=== PATIENT | male | born 1945 ===

== ENCOUNTER 2016-03-09 20:03 | Inpatient (IN) | payer MEDICAID, OTHER ==
--- NOTE | 2016-03-09 21:26 | C.PDOC ---
History Of Present Illness The patient, a 71 y/o male, presents to the ED requesting a place to stay overnight. Patient was evaluated in ED yesterday for complaints of bilateral leg pain and inability to walk. Patient presented to the ED earlier today with request for a place to stay and was discharged shortly after. He presents to the ED once again, stating he dislikes sleeping at the [facility] and merely requests a place to sleep for the night. Patient states all of his complaints are related to chronic pain issues. Otherwise, he denies fever, chill, and has no other complaints at this time. Time Seen by Provider: 03/09/16 21:23 Chief Complaint (Nursing): Substance Abuse History Per: Patient History/Exam Limitations: no limitations Onset/Duration Of Symptoms: Hrs Current Symptoms Are (Timing): Still Present Suicide/Self Injury Attempted (Context): None Modifying Factor(s): None Severity: None Associated Symptoms: denies: Suicidal Thoughts, Suicidal Plan Involuntary Hold By: None Recent travel outside of the [place]: No Additional History Per: Patient Past Medical History Reviewed: Historical Data, Nursing Documentation, Vital Signs Vital Signs: Last Vital Signs Temp 99.4 F 03/10/16 03:51 Pulse 105 H 03/10/16 03:51 Resp 18 03/10/16 03:51 BP 101/61 03/10/16 03:51 Pulse Ox 97 03/10/16 03:51 - Medical History PMH: Anxiety, Arthritis, COPD, Depression, Fractures, HTN Denies: HIV, Chronic Kidney Disease - [facility] Procedures EXTRACTION OF LEFT FOOT SKIN, EXTERNAL APPROACH (03/05/16) Family History: States: Unknown Family Hx - Social History Hx Tobacco Use: No Hx Alcohol Use: Yes Hx Substance Use: No - Immunization History Hx Tetanus Toxoid Vaccination: No Hx Influenza Vaccination: No Hx Pneumococcal Vaccination: No Review Of Systems Constitutional: Positive for: Other (request for place to sleep overnight ). Negative for: Fever, Chills Cardiovascular: Negative for: Chest Pain Respiratory: Negative for: Shortness of Breath Gastrointestinal: Negative for: Nausea, Vomiting, Abdominal Pain, Diarrhea, Constipation Genitourinary: Negative for: Dysuria, Hematuria Musculoskeletal: Positive for: Leg Pain. Negative for: Back Pain Skin: Negative for: Rash Neurological: Negative for: Weakness, Numbness, Headache Psych: Negative for: Anxiety Physical Exam - Physical Exam Appears: Non-toxic, No Acute Distress, Unkempt Skin: Warm, Dry, Other (poor vascular stasis skin changes) Head: Atraumatic, Normacephalic Eye(s): bilateral: Normal Inspection, PERRL Oral Mucosa: Moist Teeth: Other (poor dentition ) Neck: Supple Chest: Symmetrical Cardiovascular: Rhythm Regular Respiratory: Rhonchi (scattered) Male Genital: Other (small reducible inguinal hernia, left groin) Extremity: No Tenderness, Capillary Refill (less than 2 seconds), No Deformity, Swelling (right knee, mild ), Other (scar observed on right knee ) Neurological/Psych: Oriented x3, Normal Speech, Normal Cognition, Normal Motor, Normal Sensation ED Course And Treatment O2 Sat by Pulse Oximetry: 98 (on RA) Pulse Ox Interpretation: Normal ED OBSERVATION Date of observation admission: 03/09/16 Time of observation admission: 21:30 - Observation admission statement Patient is being placed in observation because:: homeless - Goals of Observation Goals of observation are:: social service - Progress Note Progress Note: 03/09/16 21:30 no complaints 03/09/16 23:30 vitals stable 03/10/16 01:36 no complaints 03/10/16 03:36 vitals stable 03/10/16 05:36 ambulating to the bathroom Disposition Counseled Patient/Family Regarding: Studies Performed, Diagnosis, Need For Followup - Disposition Disposition Time: 21:23 Condition: FAIR - Clinical Impression Clinical Impression: Homeless, Leg pain - Scribe Statement The provider has reviewed the documentation as recorded by the Scribe (Jesica Matta) Provider Attestation: All medical record entries made by the Scribe were at my direction and personally dictated by me. I have reviewed the chart and agree that the record accurately reflects my personal performance of the history, physical exam, medical decision making, and the department course for this patient. I have also personally directed, reviewed, and agree with the discharge instructions and disposition. Physician Patient Turnover Patient Signed Over To: Jacqueline Hammonds Handoff Comments: pending social service eval
[2016-03-10] MEDS ORDERED: Sodium Chloride 0.9% 1,000 ML IV ONE (11:50)
[2016-03-10 12:49] LABS: BASO % 0.3 % (0.0-2.0); EOS % 0.4 % (0.0-4.0); HEMOGLOBIN 9.2 g/dL (12.0-18.0); LYMPH # 0.8 K/uL (1.0-4.3); LYMPH % 9.5 % (20.0-40.0); MEAN CELL VOLUME 88.6 fL (80.0-94.0); MEAN CORPUSCULAR HEMOGLOBIN 29.9 pg (27.0-31.0); MEAN CORPUSCULAR HGB CONC 33.8 g/dL (33.0-37.0); MONO # 0.9 K/uL (0.0-0.8); MONO % 10.6 % (0.0-10.0); NEUT # 6.7 K/uL (1.8-7.0); NEUT % 79.2 % (50.0-75.0); PLATELET COUNT 266 K/uL (130-400); RBC 3.06 Mil/uL (4.40-5.90); WHITE BLOOD COUNT 8.4 K/uL (4.8-10.8)
[2016-03-10 12:52] LABS: SQUAMOUS EPITHIAL 1 /hpf (0-5); URINE BACTERIA RARE (<OCC); URINE BILIRUBIN NEGATIVE (NEGATIVE); URINE BLOOD 3+ (NEGATIVE); URINE CLARITY Hazy (Clear); URINE COLOR Yellow (YELLOW); URINE GLUCOSE (UA) NORMAL (Normal); URINE LEUKOCYTE ESTERASE NEG Leu/uL (Negative); URINE NITRATE NEGATIVE (NEGATIVE); URINE PROTEIN NEGATIVE (NEGATIVE)
[2016-03-10] MEDS ORDERED: Sodium Chloride 0.9% 1,000 ML ONE (12:53)
[2016-03-10 12:58] LABS: ALBUMIN 3.3 g/dL (3.5-5.0)
[2016-03-10 13:01] LABS: ALB/GLOB RATIO 0.9 (1.0-2.1); ALT/SGPT 42 U/L (21-72); AST/SGOT 36 U/L (17-59); BLOOD UREA NITROGEN 12 mg/dL (9-20); CALCIUM 7.8 mg/dl (8.6-10.4); GFR AFRICAN-AMERICAN > 60; GFR NON-AFRICAN AMERICAN > 60
--- NOTE | 2016-03-10 13:49 | CP.PCM.HP ---
<Shabana Samano - Last Filed: 03/10/16 21:40> History of Present Illness - History of Present Illness History of Present Illness: CC: leg pain HPI: 71 year old male who denies PMHx presents with complaints of bilateral leg swelling presents to the ED with complaints of generalized weakness, abdominal pain, and dysuria. Patient stated that his symptoms started a few months ago and have remained continuous. Patient was recently seen at [facility] for the same complaints on 03/07/2016, where he was worked up with CT scan of the abdomen and pelvis, chest x-ray, HIDA and DVT. Patient was then discharged upon negative work-up results. Patient counseled to follow up with [place] [facility] in order to have physical therapy benefits; however patient did not comply. After discharge from [facility], Pt later presented to [facility] ED with the same complaints. Patient additionally stated that he needed a place to stay as he was homeless. Per ROS, patient admits to subjective fevers, chills, nausea, dizziness, headaches, abdominal pain, dysuria and bilateral LE pain. Patient is a poor historian. PMHx: Patient is unsure. Per prior records: bilateral leg swelling, anemia and aneursym of ascending aorta noted. PSHx: Right knee surgery, right hip surgery, abdominal surgery ( could not specify much) Family HX: Patient is unsure Meds- None Social Hx: Patient is homeless with no family near and denies current tobacco, alcohol or drug use. Patient drank alcohol approximately 10-15 years prior Allergies: NKDA PMD- none Present on Admission - Present on Admission Any Indicators Present on Admission: No Review of Systems - Review of Systems Systems not reviewed;Unavailable: Language Barrier - Constitutional Constitutional: Chills, Fever, Headache - EENT Eyes: As Per HPI Ears: absent: Ear Pain Nose/Mouth/Throat: absent: Nasal Congestion - Cardiovascular Cardiovascular: absent: Chest Pain - Respiratory Respiratory: absent: Cough, Dyspnea - Gastrointestinal Gastrointestinal: Abdominal Pain, Nausea - Genitourinary Genitourinary: Dysuria - Musculoskeletal Musculoskeletal: Myalgias - Integumentary Integumentary: Dry Skin, Rash, Swelling - Neurological Neurological: absent: Abnormal Hearing - Psychiatric Psychiatric: As Per HPI - Hematologic/Lymphatic Hematologic: absent: Easy Bleeding, Easy Bruising Past Patient History - Infectious Disease Hx of Infectious Diseases: None - Past Medical History & Family History Past Medical History?: Yes - Past Social History Smoking Status: Never Smoked - CARDIAC Hx Hypertension: Yes - PULMONARY Hx Chronic Obstructive Pulmonary Disease (COPD): Yes - NEUROLOGICAL Hx Neurological Disorder: No - HEENT Hx HEENT Problems: No - RENAL Hx Chronic Kidney Disease: No - ENDOCRINE/METABOLIC Hx Endocrine Disorders: No - HEMATOLOGICAL/ONCOLOGICAL Hx Human Immunodeficiency Virus (HIV): No - INTEGUMENTARY Hx Dermatological Problems: No - MUSCULOSKELETAL/RHEUMATOLOGICAL Hx Arthritis: Yes Hx Fractures: Yes - GASTROINTESTINAL Hx Gastrointestinal Disorders: No - GENITOURINARY/GYNECOLOGICAL Hx Genitourinary Disorders: Yes - PSYCHIATRIC Hx Anxiety: Yes Hx Depression: Yes Hx Substance Use: No - SURGICAL HISTORY Hx Herniorrhaphy: Yes Other/Comment: Hip surgery and abdominal surgery - ANESTHESIA Hx Anesthesia: Yes Hx Anesthesia Reactions: No Meds Allergies/Adverse Reactions: Allergies Allergy/AdvReac Type Severity Reaction Status Date / Time No Known Allergies Allergy Verified 03/08/16 19:44 Physical Exam - Constitutional Appears: No Acute Distress, Unkempt - Head Exam Head Exam: ATRAUMATIC, NORMAL INSPECTION, NORMOCEPHALIC - Eye Exam Eye Exam: EOMI, Normal appearance, PERRL Pupil Exam: NORMAL ACCOMODATION, PERRL - ENT Exam ENT Exam: Mucous Membranes Moist - Neck Exam Neck exam: Positive for: Full Rom, Normal Inspection - Respiratory Exam Respiratory Exam: Clear to Auscultation Bilateral, NORMAL BREATHING PATTERN. absent: Wheezes - Cardiovascular Exam Cardiovascular Exam: REGULAR RHYTHM, +S1, +S2 - GI/Abdominal Exam GI & Abdominal Exam: Guarding, Normal Bowel Sounds, Soft, Tenderness (diffuse non specific without rebound tenderness noted). absent: Distended, Firm, Rebound, Rigid - Extremities Exam Extremities exam: Positive for: pedal edema, tenderness, pedal pulses present - Neurological Exam Neurological exam: Alert, CN II-XII Intact, Oriented x3, Reflexes Normal - Psychiatric Exam Psychiatric exam: Flat Affect - Skin Skin Exam: Abrasion, Dry, Warm Results - Vital Signs Recent Vital Signs: Last Vital Signs Temp 99.4 F 03/10/16 03:51 Pulse 87 03/10/16 13:14 Resp 18 03/10/16 13:14 BP 112/63 03/10/16 13:14 Pulse Ox 99 03/10/16 13:14 - Labs Result Diagrams: 03/10/16 12:41 03/10/16 12:41 Assessment & Plan - Assessment and Plan (Free Text) Assessment: Abdominal Pain Assessment and Plan: Per 03/07 admission at [facility]: Abdomen of CT and pelvis showed fecal impaction as well as non obstructing left inguinal hernia containing small bowel. Refer to full report- F/U reccs Patient to begin Colace and lactulose and monitor F/U Blood cultures, UA, Urine cultures Leg edema Assessment and Plan: 20 mg IV Lasix daily Venous dopplers performed on 03/07 admission- No signs of DVT Tramadol 25mg q6h for pain Status: Acute Anemia Stable, likely Anemia of chronic disease and iron deficiency secondary to poor nutrition intake Patient has had extensive workup within the last admission at [facility] in January 2016 F/U Status: Chronic Abnormal UA F/U Repeat UA and UC Hx of Aortic aneursym Currently 4.5cm Patient needs repeat CT imaging every 6 months Patient should obtain repeat imaging in July 2016 to assess size Status: Chronic Poor nutrition Assessment and Plan: F/U B12 and Folate levels Gait instability Assessment and Plan: PT eval Fall risk precation Status: Acute Prophylactic measure Assessment and Plan: Heparin 5000 units q8h A and D ointment to apply to LE Status: Acute <Sukhwinder Rutherford H - Last Filed: 03/11/16 07:44> Results - Vital Signs Recent Vital Signs: Last Vital Signs Temp 100 F H 03/11/16 00:00 Pulse 91 H 03/11/16 00:00 Resp 20 03/11/16 00:00 BP 119/64 03/11/16 00:00 Pulse Ox 97 03/11/16 00:00 - Labs Result Diagrams: 03/11/16 06:55 03/10/16 12:41 Labs: Laboratory Results - last 24 hr 03/11/16 06:55 WBC 7.8 RBC 3.04 L Hgb 9.1 L Hct 26.7 L MCV 87.9 MCH 29.9 MCHC 34.1 RDW 16.5 H Plt Count 278 MPV 7.8 Neut % (Auto) 74.7 Lymph % (Auto) 13.5 L Webster % (Auto) 10.9 H Eos % (Auto) 0.5 Baso % (Auto) 0.4 Neut # 5.8 Lymph # 1.0 Webster # 0.8 Eos # 0.0 Baso # 0.0 Attending/Attestation - Attestation I have personally seen and examined this patient.: Yes I have fully participated in the care of the patient.: Yes I have reviewed all pertinent clinical information: Yes Notes (Text): Medical Attending: Patient was seen and examined by me. Agree with the above note by the resident. Patient has recently been in both [facility] and [facility] He appears very depressed, and also malnourished as well. Will need PT/OT evaluation. From my discussion with ER patient was deemed not a safe discharge. He has had a lot of recent imaging so will try to avoid additional scans for now. thank you Sukhwinder Rutherford
[2016-03-10 14:01] LABS: ANISOCYTOSIS SLIGHT; HYPOCHROMIC SLIGHT; LYMPHOCYTE 14 % (20-40); MONOCYTE 11 % (0-10); NEUTROPHIL 75 % (50-75); PLATELET ESTIMATE NORMAL (NORMAL); POIKILOCYTOSIS SLIGHT; TOTAL CELLS COUNTED 100
[2016-03-10 14:02] LABS: TARGET CELLS SLIGHT; TEARDROP CELLS SLIGHT
[2016-03-10] MEDS: Vitamins A & D Oint UD Foilpak TOP SCH (22:45)
[2016-03-11] MEDS: Vitamins A & D Oint UD Foilpak TOP SCH ×2 (06:11→14:36)
[2016-03-11 07:09] LABS: BASO % 0.4 % (0.0-2.0); EOS % 0.5 % (0.0-4.0); HEMOGLOBIN 9.1 g/dL (12.0-18.0); LYMPH % 13.5 % (20.0-40.0); MEAN CELL VOLUME 87.9 fL (80.0-94.0); MEAN CORPUSCULAR HEMOGLOBIN 29.9 pg (27.0-31.0); MEAN CORPUSCULAR HGB CONC 34.1 g/dL (33.0-37.0); MEAN PLATELET VOLUME 7.8 fL (7.2-11.7); MONO # 0.8 K/uL (0.0-0.8); MONO % 10.9 % (0.0-10.0); NEUT # 5.8 K/uL (1.8-7.0); NEUT % 74.7 % (50.0-75.0); RBC 3.04 Mil/uL (4.40-5.90); RED CELL DISTRIBUTION WIDTH 16.5 % (11.5-14.5); WHITE BLOOD COUNT 7.8 K/uL (4.8-10.8)
[2016-03-11 07:18] LABS: ALBUMIN 2.6 g/dL (3.5-5.0)
[2016-03-11 07:21] LABS: ALB/GLOB RATIO 0.7 (1.0-2.1); ALT/SGPT 42 U/L (21-72); AST/SGOT 27 U/L (17-59); BLOOD UREA NITROGEN 11 mg/dL (9-20); GFR AFRICAN-AMERICAN > 60; GFR NON-AFRICAN AMERICAN > 60
[2016-03-11 07:22] LABS: CALCIUM 7.7 mg/dl (8.6-10.4); MAGNESIUM 1.7 mg/dL (1.6-2.3)
[2016-03-11 08:19] LABS: FOLATE 14.5 ng/mL
[2016-03-11 08:38] LABS: BARBITURATES, UR NEGATIVE (NEGATIVE)
[2016-03-11 08:39] LABS: BENZODIAZEPINES, UR NEGATIVE (NEGATIVE)
[2016-03-11 08:44] LABS: OPIATES, UR NEGATIVE (NEGATIVE)
[2016-03-11 08:45] LABS: PHENCYCLIDINE, UR NEGATIVE (NEGATIVE)
--- NOTE | 2016-03-11 10:23 | CP.PCM.PN ---
<JazmyneLyjan - Last Filed: 03/11/16 14:51> Subjective - Date & Time of Evaluation Date of Evaluation: 03/11/16 Time of Evaluation: 09:33 - Subjective Subjective: PGY 1 Medicine Note- Dr. Rutherford's service Pt seen and examined in no apparent acute distress. Patient reports nonspecific pain all over his body. When asked if specific areas, hurt, he replies yes. When prompted with what hurts the most, he declares "everywhere". Patient denies subjective fevers or chills or shortness of breath at this time. Objective - Vital Signs/Intake and Output Vital Signs (last 24 hours): Temp Pulse Resp BP Pulse Ox 99.4 F 86 20 117/70 97 03/11/16 08:00 03/11/16 08:38 03/11/16 08:00 03/11/16 08:00 03/11/16 08:00 Intake and Output: 03/11/16 03/11/16 06:59 18:59 Intake Total 590 300 Output Total 400 Balance 190 300 - Medications Medications: Current Medications Docusate Sodium (Colace) 100 mg PO DAILY [facility] Furosemide (Lasix) 20 mg IVP DAILY [facility] Heparin Sodium (Porcine) (Heparin) 5,000 units SC Q8 [facility] Last Admin: 03/11/16 06:10 Dose: 5,000 units Azithromycin 500 mg/ Sodium (Chloride) 250 mls @ 250 mls/hr IVPB DAILY [facility] Ceftriaxone Sodium 1 gm/ (Sodium Chloride) 100 mls @ 200 mls/hr IVPB DAILY [facility] Influenza Virus Vaccine (Afluria) 45 mcg IM .ONCE ONE Stop: 03/13/16 10:01 Pneumococcal Polyvalent Vaccine (Pneumovax 23 Vaccine) 0.5 ml IM .ONCE ONE Stop: 03/13/16 08:01 Tramadol HCl (Ultram) 25 mg PO Q6H PRN PRN Reason: Pain, Mild (1-3) Vitamin A (Vitamin A & D Oint Ud Foilpak) 1 ea TOP Q8H [facility] Last Admin: 03/11/16 06:11 Dose: 1 ea - Labs Labs: 03/11/16 06:55 03/11/16 06:55 - Constitutional Appears: No Acute Distress, Unkempt - Head Exam Head Exam: ATRAUMATIC, NORMAL INSPECTION, NORMOCEPHALIC - Eye Exam Eye Exam: EOMI, Normal appearance, PERRL Pupil Exam: NORMAL ACCOMODATION, PERRL - ENT Exam ENT Exam: Mucous Membranes Moist - Neck Exam Neck Exam: Full ROM - Respiratory Exam Respiratory Exam: NORMAL BREATHING PATTERN. absent: Wheezes - Cardiovascular Exam Cardiovascular Exam: REGULAR RHYTHM, +S1, +S2 - GI/Abdominal Exam GI & Abdominal Exam: Guarding, Soft, Normal Bowel Sounds. absent: Firm, Rigid - Exam Exam: Bladder Distension - Extremities Exam Extremities Exam: Normal Capillary Refill, Pedal Edema Additional comments: ROM not obtained as patient would not comply to attempt moving LE - Back Exam Back Exam: Full ROM - Neurological Exam Neurological Exam: Alert, Awake, Oriented x3 - Psychiatric Exam Psychiatric exam: Flat Affect - Skin Skin Exam: Dry, Intact, Normal Color, Warm Additional comments: dry, scaling skin patches on legs bilaterally Assessment and Plan - Assessment and Plan (Free Text) Assessment: Abdominal Pain Assessment and Plan: CT scan with PO contrast- F/U Per 03/07 admission at [facility]: Abdomen of CT and pelvis showed fecal impaction as well as non obstructing left inguinal hernia containing small bowel. Refer to full report. On Colace. Monitor F/U Blood cultures, repeat UA, Urine cultures Leg edema Assessment and Plan: 20 mg IV Lasix daily Venous dopplers performed on 03/07 admission- No signs of DVT Tramadol 25mg q6h for pain Status: Acute Anemia Stable, likely Anemia of chronic disease and iron deficiency secondary to poor nutrition intake Patient has had extensive workup within the last admission at [facility] in January 2016 F/U Status: Chronic Abnormal UA UA with RBCs and WBCs noted F/U Repeat UA and UC Hx of Aortic aneursym Currently 4.5cm Patient needs repeat CT imaging every 6 months Patient should obtain repeat imaging in July 2016 to assess size Status: Chronic Poor nutrition Assessment and Plan: Patient appears malnourished B12 and Folate levels WNL Gait instability Assessment and Plan: PT eval- Recs for LAXMI Fall risk precaution noted Status: Acute Prophylactic measure Assessment and Plan: Heparin 5000 units q8h A and D ointment to apply to LE Case management referral- Patient is homeless. Status: Acute <Sukhwinder Rutherford H - Last Filed: 03/11/16 16:45> Objective - Vital Signs/Intake and Output Vital Signs (last 24 hours): Temp Pulse Resp BP Pulse Ox 99.4 F 86 20 117/70 97 03/11/16 08:00 03/11/16 08:38 03/11/16 08:00 03/11/16 14:36 03/11/16 08:00 Intake and Output: 03/11/16 03/11/16 06:59 18:59 Intake Total 590 300 Output Total 400 Balance 190 300 - Medications Medications: Current Medications Docusate Sodium (Colace) 100 mg PO DAILY [facility] Last Admin: 03/11/16 12:33 Dose: 100 mg Furosemide (Lasix) 20 mg IVP DAILY [facility] Last Admin: 03/11/16 14:36 Dose: 20 mg Heparin Sodium (Porcine) (Heparin) 5,000 units SC Q8 [facility] Last Admin: 03/11/16 14:35 Dose: 5,000 units Azithromycin 500 mg/ Sodium (Chloride) 250 mls @ 250 mls/hr IVPB DAILY [facility] Last Admin: 03/11/16 12:35 Dose: 250 mls/hr Ceftriaxone Sodium 1 gm/ (Sodium Chloride) 100 mls @ 200 mls/hr IVPB DAILY [facility] Last Admin: 03/11/16 12:34 Dose: 200 mls/hr Influenza Virus Vaccine (Afluria) 45 mcg IM .ONCE ONE Stop: 03/13/16 10:01 Pneumococcal Polyvalent Vaccine (Pneumovax 23 Vaccine) 0.5 ml IM .ONCE ONE Stop: 03/13/16 08:01 Tramadol HCl (Ultram) 25 mg PO Q6H PRN PRN Reason: Pain, Mild (1-3) Vitamin A (Vitamin A & D Oint Ud Foilpak) 1 ea TOP Q8H [facility] Last Admin: 03/11/16 14:36 Dose: 1 ea - Labs Labs: 03/11/16 06:55 03/11/16 06:55 Attending/Attestation - Attestation I have personally seen and examined this patient.: Yes I have fully participated in the care of the patient.: Yes I have reviewed all pertinent clinical information, including history, physical exam and plan: Yes Notes (Text): 03/11/16 16:43 Medical Attending: Patient was seen and examined by me. Agree with the above note. We are getting imaging of the abdomen and pelvis - however I am concerned the patient may not be telling us the truth. When examining the patient - he says he has severe pain every where - including when I take his radial pulse and on his shoulder and in his stomach, chest, neck, head, feet, etc. He appears to have eaten readliy well. If test are negative then will [facility] thank you Sukhwinder Rutherford
[2016-03-11] MEDS ORDERED: Iohexol 240 (50 ml) PO ONE (12:00)
[2016-03-11] MEDS: Azithromycin 500 MG in Sodium Chloride 0.9% 250 ML IVPB SCH (12:35)
[2016-03-12] MEDS: Tramadol 25 mg PO PRN ×3 (03:05→21:22)
[2016-03-12 07:19] LABS: BASO % 0.5 % (0.0-2.0); EOS % 0.6 % (0.0-4.0); LYMPH # 1.2 K/uL (1.0-4.3); LYMPH % 21.7 % (20.0-40.0); MEAN CELL VOLUME 87.7 fL (80.0-94.0); MEAN CORPUSCULAR HEMOGLOBIN 29.5 pg (27.0-31.0); MEAN CORPUSCULAR HGB CONC 33.6 g/dL (33.0-37.0); MEAN PLATELET VOLUME 7.9 fL (7.2-11.7); MONO # 0.7 K/uL (0.0-0.8); MONO % 12.7 % (0.0-10.0); NEUT # 3.7 K/uL (1.8-7.0); NEUT % 64.5 % (50.0-75.0); NRBC % 0.1 % (0.0-2.0); RBC 3.06 Mil/uL (4.40-5.90); RED CELL DISTRIBUTION WIDTH 15.9 % (11.5-14.5); WHITE BLOOD COUNT 5.7 K/uL (4.8-10.8)
[2016-03-12 07:32] LABS: ALBUMIN 2.6 g/dL (3.5-5.0)
[2016-03-12 07:35] LABS: ALB/GLOB RATIO 0.7 (1.0-2.1); AST/SGOT 31 U/L (17-59); BLOOD UREA NITROGEN 9 mg/dL (9-20); GFR AFRICAN-AMERICAN > 60; GFR NON-AFRICAN AMERICAN > 60
[2016-03-12 07:36] LABS: ALT/SGPT 42 U/L (21-72); CALCIUM 7.7 mg/dl (8.6-10.4); MAGNESIUM 1.8 mg/dL (1.6-2.3)
[2016-03-12] MEDS: Azithromycin 500 MG in Sodium Chloride 0.9% 250 ML IVPB SCH (10:23)
--- NOTE | 2016-03-12 12:36 | CP.PCM.PN ---
Subjective - Date & Time of Evaluation Date of Evaluation: 03/12/16 Time of Evaluation: 12:20 - Subjective Subjective: Patient was seen and examined. Communication was with basic Slovenian. He again reported pain all over the place as well as pain in the hip area. Per my discussion with nursing he has not gotten up to walk today Pending CT of the abd and pelvis imaging from last night. Will check imaging of the hip Objective - Vital Signs/Intake and Output Vital Signs (last 24 hours): Temp Pulse Resp BP Pulse Ox 98.7 F 86 20 123/72 97 03/12/16 07:24 03/12/16 07:24 03/12/16 07:24 03/12/16 09:55 03/12/16 07:24 Intake and Output: 03/12/16 03/12/16 06:59 18:59 Intake Total 600 Output Total 1200 Balance -600 - Medications Medications: Current Medications Docusate Sodium (Colace) 100 mg PO DAILY [facility] Last Admin: 03/12/16 09:55 Dose: 100 mg Furosemide (Lasix) 20 mg IVP DAILY [facility] Last Admin: 03/12/16 09:55 Dose: 20 mg Heparin Sodium (Porcine) (Heparin) 5,000 units SC Q8 [facility] Last Admin: 03/12/16 06:30 Dose: 5,000 units Azithromycin 500 mg/ Sodium (Chloride) 250 mls @ 250 mls/hr IVPB DAILY [facility] Last Admin: 03/12/16 10:23 Dose: 250 mls/hr Ceftriaxone Sodium 1 gm/ (Sodium Chloride) 100 mls @ 200 mls/hr IVPB DAILY [facility] Last Admin: 03/12/16 10:22 Dose: 200 mls/hr Influenza Virus Vaccine (Afluria) 45 mcg IM .ONCE ONE Stop: 03/13/16 10:01 Pneumococcal Polyvalent Vaccine (Pneumovax 23 Vaccine) 0.5 ml IM .ONCE ONE Stop: 03/13/16 08:01 Tramadol HCl (Ultram) 25 mg PO Q6H PRN PRN Reason: Pain, Mild (1-3) Last Admin: 03/12/16 03:05 Dose: 25 mg Vitamin A (Vitamin A & D Oint Ud Foilpak) 1 ea TOP Q8H [facility] Last Admin: 03/11/16 14:36 Dose: 1 ea - Labs Labs: 03/12/16 07:07 03/12/16 07:07 - Constitutional Appears: Cachectic, Chronically Ill - Head Exam Head Exam: NORMAL INSPECTION - Eye Exam Eye Exam: EOMI - ENT Exam ENT Exam: Mucous Membranes Moist - Cardiovascular Exam Cardiovascular Exam: REGULAR RHYTHM - GI/Abdominal Exam GI & Abdominal Exam: Soft, Tenderness, Normal Bowel Sounds - Neurological Exam Neurological Exam: Alert, Awake, Oriented x3 Neuro motor strength exam: Left Upper Extremity: 4, Right Upper Extremity: 4, Left Lower Extremity: 4, Right Lower Extremity: 4 - Psychiatric Exam Psychiatric exam: Depressed - Skin Skin Exam: Pallor, Warm Assessment and Plan - Assessment and Plan (Free Text) Assessment: Abdominal Pain Assessment and Plan: 03/12/2016: Pending the repeat of the CT of abd and pelvis results. Patient is eating. CT scan with PO contrast- F/U Per 03/07 admission at [facility]: Abdomen of CT and pelvis showed fecal impaction as well as non obstructing left inguinal hernia containing small bowel. Refer to full report. On Colace. Monitor F/U Blood cultures, repeat UA, Urine cultures Leg edema Assessment and Plan: 20 mg IV Lasix daily Venous dopplers performed on 03/07 admission- No signs of DVT Tramadol 25mg q6h for pain Status: Acute Anemia Stable, likely Anemia of chronic disease and iron deficiency secondary to poor nutrition intake Patient has had extensive workup within the last admission at [facility] in January 2016 F/U Status: Chronic Abnormal UA UA with RBCs and WBCs noted F/U Repeat UA and UC Hx of Aortic aneursym Currently 4.5cm Patient needs repeat CT imaging every 6 months Patient should obtain repeat imaging in July 2016 to assess size Status: Chronic Poor nutrition Assessment and Plan: Patient appears malnourished B12 and Folate levels WNL Gait instability Assessment and Plan: 03/12/2016 checking imaging of the lower extremity PT eval- Recs for LAXMI Fall risk precaution noted Status: Acute Prophylactic measure Assessment and Plan: Heparin 5000 units q8h A and D ointment to apply to LE Case management referral- Patient is homeless. Status: Acute
--- NOTE | 2016-03-12 14:37 | RAD ---
PROCEDURE: Radiographs of the pelvis and bilateral hips HISTORY: patient reporting pain, was found on road [place] COMPARISON: None. FINDINGS: BONES: Pelvis: Deformity of the right pelvic bone is noted. Heterogeneous sclerotic changes seen at the right iliac bone and right acetabulum of uncertain etiology. Right hip:The patient is status post right hip arthroplasty. The prosthesis seen migrating superiorly. Left hip:No evidence of acute pathology at the left hip JOINTS: Right hip: Status post right hip arthroplasty. Possible displacement of the prosthesis superiorly or into the right pelvis Left hip: Arthritic degenerative changes Sacroiliac Joints: Arthritic changes Pubic symphysis: Unremarkable. SOFT TISSUES: Normal. OTHER FINDINGS: None. IMPRESSION: Limited is baseline study. The patient is status post prior right hip arthroplasty. Suspicious for displacement or migration of the prosthesis superiorly. Heterogeneous sclerotic changes at the right pelvic bones of uncertain etiology.
[2016-03-12] MEDS: Vitamins A & D Oint UD Foilpak TOP SCH ×3 (14:51→21:29)
[2016-03-13] MEDS: Vitamins A & D Oint UD Foilpak TOP SCH ×3 (06:19→21:17)
[2016-03-13 06:38] LABS: BASO % 0.4 % (0.0-2.0); EOS # 0.1 K/uL (0.0-0.7); EOS % 1.8 % (0.0-4.0); HEMOGLOBIN 9.8 g/dL (12.0-18.0); LYMPH # 1.5 K/uL (1.0-4.3); LYMPH % 23.7 % (20.0-40.0); MEAN CELL VOLUME 87.9 fL (80.0-94.0); MEAN CORPUSCULAR HEMOGLOBIN 29.5 pg (27.0-31.0); MEAN CORPUSCULAR HGB CONC 33.6 g/dL (33.0-37.0); MEAN PLATELET VOLUME 7.7 fL (7.2-11.7); MONO # 0.7 K/uL (0.0-0.8); MONO % 11.4 % (0.0-10.0); NEUT # 3.9 K/uL (1.8-7.0); NEUT % 62.7 % (50.0-75.0); RBC 3.33 Mil/uL (4.40-5.90); WHITE BLOOD COUNT 6.2 K/uL (4.8-10.8)
[2016-03-13 06:52] LABS: ALBUMIN 2.7 g/dL (3.5-5.0)
[2016-03-13 06:55] LABS: ALB/GLOB RATIO 0.7 (1.0-2.1); ALT/SGPT 39 U/L (21-72); AST/SGOT 28 U/L (17-59); BLOOD UREA NITROGEN 10 mg/dL (9-20); CALCIUM 8.2 mg/dl (8.6-10.4); GFR AFRICAN-AMERICAN > 60; GFR NON-AFRICAN AMERICAN > 60
[2016-03-13 06:56] LABS: MAGNESIUM 1.8 mg/dL (1.6-2.3)
[2016-03-13 07:54] LABS: URINE BACTERIA OCC (<OCC); URINE BILIRUBIN NEGATIVE (NEGATIVE); URINE BLOOD 2+ (NEGATIVE); URINE CLARITY Hazy (Clear); URINE COLOR Yellow (YELLOW); URINE GLUCOSE (UA) NORMAL (Normal); URINE LEUKOCYTE ESTERASE NEG Leu/uL (Negative); URINE NITRATE NEGATIVE (NEGATIVE); URINE PROTEIN NEGATIVE (NEGATIVE)
[2016-03-13] MEDS ORDERED: Pneumococcal 23-Valent Vaccine IM ONE (08:00)
--- NOTE | 2016-03-13 08:16 | CP.PCM.PN ---
<RosalieJose M - Last Filed: 03/13/16 17:04> Objective - Vital Signs/Intake and Output Vital Signs (last 24 hours): Temp Pulse Resp BP Pulse Ox 98 F 84 20 112/63 97 03/13/16 07:29 03/13/16 10:07 03/13/16 07:29 03/13/16 09:55 03/13/16 07:29 Intake and Output: 03/13/16 03/13/16 06:59 18:59 Intake Total 540 Balance 540 - Medications Medications: Current Medications Docusate Sodium (Colace) 100 mg PO DAILY [facility] Last Admin: 03/13/16 09:56 Dose: 100 mg Furosemide (Lasix) 20 mg IVP DAILY [facility] Last Admin: 03/13/16 09:55 Dose: 20 mg Heparin Sodium (Porcine) (Heparin) 5,000 units SC Q8 [facility] Last Admin: 03/13/16 13:32 Dose: 5,000 units Azithromycin 500 mg/ Sodium (Chloride) 250 mls @ 250 mls/hr IVPB DAILY [facility] Last Admin: 03/13/16 09:56 Dose: 250 mls/hr Ceftriaxone Sodium 1 gm/ (Sodium Chloride) 100 mls @ 200 mls/hr IVPB DAILY [facility] Last Admin: 03/13/16 09:56 Dose: 200 mls/hr Tramadol HCl (Ultram) 25 mg PO Q6H PRN PRN Reason: Pain, Mild (1-3) Last Admin: 03/13/16 14:24 Dose: 25 mg Vitamin A (Vitamin A & D Oint Ud Foilpak) 1 ea TOP Q8H [facility] Last Admin: 03/13/16 13:33 Dose: 1 ea - Labs Labs: 03/13/16 06:14 03/13/16 06:14 Attending/Attestation - Attestation I have personally seen and examined this patient.: Yes I have fully participated in the care of the patient.: Yes I have reviewed all pertinent clinical information, including history, physical exam and plan: Yes Notes (Text): 03/13/16 17:03 Patient seen and examined at bedside C/O bilateral hip pain more in the left side Ortho evaluation requested due to possible displacement of prosthesis <Sangeeta Cuevas - Last Filed: 03/13/16 23:00> Subjective - Date & Time of Evaluation Date of Evaluation: 03/13/16 Time of Evaluation: 08:12 - Subjective Subjective: Pt reports pain to bilateral LE and hips. He has not walked. Patient also admits to abdominal pain. Pt denies other ROS. Objective - Vital Signs/Intake and Output Vital Signs (last 24 hours): Temp Pulse Resp BP Pulse Ox 98 F 84 20 112/63 97 03/13/16 07:29 03/13/16 07:29 03/13/16 07:29 03/13/16 07:29 03/13/16 07:29 - Medications Medications: Current Medications Docusate Sodium (Colace) 100 mg PO DAILY [facility] Last Admin: 03/12/16 09:55 Dose: 100 mg Furosemide (Lasix) 20 mg IVP DAILY [facility] Last Admin: 03/12/16 09:55 Dose: 20 mg Heparin Sodium (Porcine) (Heparin) 5,000 units SC Q8 [facility] Last Admin: 03/13/16 06:19 Dose: 5,000 units Azithromycin 500 mg/ Sodium (Chloride) 250 mls @ 250 mls/hr IVPB DAILY [facility] Last Admin: 03/12/16 10:23 Dose: 250 mls/hr Ceftriaxone Sodium 1 gm/ (Sodium Chloride) 100 mls @ 200 mls/hr IVPB DAILY [facility] Last Admin: 03/12/16 10:22 Dose: 200 mls/hr Influenza Virus Vaccine (Afluria) 45 mcg IM .ONCE ONE Stop: 03/13/16 10:01 Tramadol HCl (Ultram) 25 mg PO Q6H PRN PRN Reason: Pain, Mild (1-3) Last Admin: 03/12/16 21:22 Dose: 25 mg Vitamin A (Vitamin A & D Oint Ud Foilpak) 1 ea TOP Q8H [facility] Last Admin: 03/13/16 06:19 Dose: 1 ea - Labs Labs: 03/13/16 06:14 03/13/16 06:14 - Constitutional Appears: Cachectic, Chronically Ill - Head Exam Head Exam: ATRAUMATIC, NORMAL INSPECTION, NORMOCEPHALIC - Eye Exam Eye Exam: EOMI, Normal appearance - ENT Exam ENT Exam: Mucous Membranes Moist - Neck Exam Neck Exam: Normal Inspection - Respiratory Exam Respiratory Exam: Clear to Ausculation Bilateral, NORMAL BREATHING PATTERN - Cardiovascular Exam Cardiovascular Exam: +S1, +S2. absent: Murmur - GI/Abdominal Exam GI & Abdominal Exam: Soft, Tenderness, Normal Bowel Sounds - Extremities Exam Extremities Exam: Normal Inspection, Tenderness. absent: Pedal Edema - Neurological Exam Neurological Exam: Alert, Awake, Oriented x3 - Psychiatric Exam Psychiatric exam: Flat Affect - Skin Skin Exam: Normal Color, Warm Assessment and Plan - Assessment and Plan (Free Text) Assessment: Abdominal Pain Assessment and Plan: 03/12/2016: Pending the repeat of the CT of abd and pelvis results. Patient is eating. CT scan with PO contrast- F/U Per 03/07 admission at [facility]: Abdomen of CT and pelvis showed fecal impaction as well as non obstructing left inguinal hernia containing small bowel. Refer to full report. On Colace. Monitor F/U Blood cultures, repeat UA, Urine cultures Leg edema Assessment and Plan: 20 mg IV Lasix daily Venous dopplers performed on 03/07 admission- No signs of DVT Tramadol 25mg q6h for pain Status: Acute Anemia Stable, likely Anemia of chronic disease and iron deficiency secondary to poor nutrition intake Patient has had extensive workup within the last admission at [facility] in January 2016 F/U Status: Chronic Abnormal UA UA with RBCs and WBCs noted F/U Repeat UA and UC Hx of Aortic aneursym Currently 4.5cm Patient needs repeat CT imaging every 6 months Patient should obtain repeat imaging in July 2016 to assess size Status: Chronic Poor nutrition Assessment and Plan: Patient appears malnourished B12 and Folate levels WNL Gait instability Assessment and Plan: Ortho consult, Odette, help appreciated Hip/Pelvis XRAY: s/p right hip arthroplasty. Suspicious for displacement or migration of prosthesis superiorly. Heterogenous sclerotic changes at right pelvic bones of uncertain etiology. 03/12/2016 checking imaging of the lower extremity PT eval- Recs for LAXMI Fall risk precaution noted Status: Acute Prophylactic measure Assessment and Plan: Heparin 5000 units q8h A and D ointment to apply to LE Case management referral- Patient is homeless. Status: Acute
[2016-03-13] MEDS: Azithromycin 500 MG in Sodium Chloride 0.9% 250 ML IVPB SCH (09:56)
[2016-03-13] MEDS ORDERED: Influenza Virus Vaccine 45 mcg/0.5 ml Syr IM ONE (10:00)
[2016-03-13] MEDS: Tramadol 25 mg PO PRN ×2 (14:24→20:33)
[2016-03-14] MEDS: Vitamins A & D Oint UD Foilpak TOP SCH ×2 (06:21→13:26)
[2016-03-14 07:29] LABS: BASO % 0.5 % (0.0-2.0); EOS # 0.1 K/uL (0.0-0.7); EOS % 1.3 % (0.0-4.0); HEMOGLOBIN 9.7 g/dL (12.0-18.0); LYMPH # 1.3 K/uL (1.0-4.3); MEAN CELL VOLUME 87.6 fL (80.0-94.0); MEAN CORPUSCULAR HEMOGLOBIN 29.7 pg (27.0-31.0); MEAN CORPUSCULAR HGB CONC 33.9 g/dL (33.0-37.0); MEAN PLATELET VOLUME 7.4 fL (7.2-11.7); MONO # 0.7 K/uL (0.0-0.8); MONO % 12.1 % (0.0-10.0); NEUT # 3.7 K/uL (1.8-7.0); NEUT % 64.1 % (50.0-75.0); RBC 3.27 Mil/uL (4.40-5.90); WHITE BLOOD COUNT 5.8 K/uL (4.8-10.8)
[2016-03-14 08:19] LABS: ALBUMIN 2.8 g/dL (3.5-5.0)
[2016-03-14 08:21] LABS: GFR AFRICAN-AMERICAN > 60; GFR NON-AFRICAN AMERICAN > 60
[2016-03-14 08:22] LABS: ALB/GLOB RATIO 0.7 (1.0-2.1); ALT/SGPT 38 U/L (21-72); AST/SGOT 25 U/L (17-59); BLOOD UREA NITROGEN 12 mg/dL (9-20); CALCIUM 8.2 mg/dl (8.6-10.4)
[2016-03-14 08:23] LABS: MAGNESIUM 1.9 mg/dL (1.6-2.3)
--- NOTE | 2016-03-14 09:12 | CP.PCM.PN ---
Subjective - Date & Time of Evaluation Date of Evaluation: 03/14/16 Time of Evaluation: 09:08 - Subjective Subjective: Patient states he has chronic pain in his right hip. He says it was about 7 years ago that he had the hip fracture and surgery. He says he was able to walk with walker until about 2 weeks ago. He is complaining about lower abdominal pain currently. Denies pain in his back at this time. Objective - Vital Signs/Intake and Output Vital Signs (last 24 hours): Temp Pulse Resp BP Pulse Ox 98.6 F 81 20 106/65 97 03/14/16 07:35 03/14/16 08:38 03/14/16 07:35 03/14/16 07:35 03/14/16 07:35 Intake and Output: 03/14/16 03/14/16 06:59 18:59 Intake Total 540 Output Total 450 Balance 90 - Medications Medications: Current Medications Docusate Sodium (Colace) 100 mg PO DAILY [facility] Last Admin: 03/13/16 09:56 Dose: 100 mg Furosemide (Lasix) 20 mg IVP DAILY [facility] Last Admin: 03/13/16 09:55 Dose: 20 mg Azithromycin 500 mg/ Sodium (Chloride) 250 mls @ 250 mls/hr IVPB DAILY [facility] Last Admin: 03/13/16 09:56 Dose: 250 mls/hr Ceftriaxone Sodium 1 gm/ (Sodium Chloride) 100 mls @ 200 mls/hr IVPB DAILY [facility] Last Admin: 03/13/16 09:56 Dose: 200 mls/hr Tramadol HCl (Ultram) 25 mg PO Q6H PRN PRN Reason: Pain, Mild (1-3) Last Admin: 03/13/16 20:33 Dose: 25 mg Vitamin A (Vitamin A & D Oint Ud Foilpak) 1 ea TOP Q8H [facility] Last Admin: 03/14/16 06:21 Dose: 1 ea - Labs Labs: 03/14/16 07:15 03/14/16 07:15 - Extremities Exam Additional comments: Poor hygiene Skin flaking BLE right hip incision well healed. Limited ROM of right hip, complains of pain at about 40 degrees of hip/knee flexion. Left hip/knee he flexes a little easier, but still very limited to about 50 degrees. +ROM ankles DF/PF, toes, flex ext. No peripheral edema to lower legs. +Dp pulses Assessment and Plan (1) Acetabular protrusion Assessment & Plan: S/P right hip hemiarthroplasty, with associated osteolysis chronic no acute fracture, no acute changes when compared to other imaging 01/12/2016, 05/13/2011 and 11/04/[address] hemiarthroplasty intact, no protrusio noted at that time no acute orthopedic intervention indicated Patient can follow up with ortho as outpatient PT/OT encourage OOB VTE proph D/w Dr. Pino, agrees with above Status: Acute Past Patient History - Infectious Disease Hx of Infectious Diseases: None - Past Medical History & Family History Past Medical History?: Yes - Past Social History Smoking Status: Never Smoked - CARDIAC Hx Hypertension: Yes - PULMONARY Hx Chronic Obstructive Pulmonary Disease (COPD): Yes - NEUROLOGICAL Hx Neurological Disorder: No - HEENT Hx HEENT Problems: No - RENAL Hx Chronic Kidney Disease: No - ENDOCRINE/METABOLIC Hx Endocrine Disorders: No - HEMATOLOGICAL/ONCOLOGICAL Hx Human Immunodeficiency Virus (HIV): No - INTEGUMENTARY Hx Dermatological Problems: No - MUSCULOSKELETAL/RHEUMATOLOGICAL Hx Arthritis: Yes Hx Fractures: Yes - GASTROINTESTINAL Hx Gastrointestinal Disorders: No - GENITOURINARY/GYNECOLOGICAL Hx Genitourinary Disorders: Yes - PSYCHIATRIC Hx Anxiety: Yes Hx Depression: Yes Hx Substance Use: No - SURGICAL HISTORY Hx Herniorrhaphy: Yes Other/Comment: Hip surgery and abdominal surgery - ANESTHESIA Hx Anesthesia: Yes Hx Anesthesia Reactions: No Radiology Interpretation - Radiology Interpretation #2 Interpretation: Patient Name / ID : ESME QUESADA / [id number] Exam Date : 03/12/2016 13:52:57 ( Approved ) Study Comment : Sex / Age : M / 71Y Creator : Amanda Velazco Dictator : Amanda Velazco Manager Psychiatry : [employer] Operator : Amanda Velazco Approver2 : Report Date : 03/12/2016 14:32:01 My Comment : PROCEDURE: Radiographs of the pelvis and bilateral hips HISTORY: patient reporting pain, was found on road [place] COMPARISON: None. FINDINGS: BONES: Pelvis: Deformity of the right pelvic bone is noted. Heterogeneous sclerotic changes seen at the right iliac bone and right acetabulum of uncertain etiology. Right hip:The patient is status post right hip arthroplasty. The prosthesis seen migrating superiorly. Left hip:No evidence of acute pathology at the left hip JOINTS: Right hip: Status post right hip arthroplasty. Possible displacement of the prosthesis superiorly or into the right pelvis Left hip: Arthritic degenerative changes Sacroiliac Joints: Arthritic changes Pubic symphysis: Unremarkable. SOFT TISSUES: Normal. OTHER FINDINGS: None. IMPRESSION: Limited is baseline study. The patient is status post prior right hip arthroplasty. Suspicious for displacement or migration of the prosthesis superiorly. Heterogeneous sclerotic changes at the right pelvic bones of uncertain etiology. Accession No. : [id number] Patient Name / ID : ESME QUESADA / [id number] Exam Date : 03/07/2016 17:08:27 ( Approved ) Study Comment : Sex / Age : M / 71Y Creator : Chong Jalloh MD Dictator : Chong Jalloh MD Manager Psychiatry : [employer] Operator : Chong Jalloh MD Approver2 : Report Date : 03/08/2016 12:42:33 My Comment : PROCEDURE: HISTORY: pain COMPARISON: TECHNIQUE: FINDINGS: Status post right hip arthroplasty with marked protrusion of the prosthesis through acetabulum consistent with protrusio. Periprosthetic osteolysis noted as well. IMPRESSION: As above.
--- NOTE | 2016-03-14 09:22 | CP.PCM.PN ---
<Shabana Samano - Last Filed: 03/14/16 12:27> Subjective - Date & Time of Evaluation Date of Evaluation: 03/14/16 Time of Evaluation: 09:26 - Subjective Subjective: PGY 1 Resident Note- Dr. Wiggins's service Pt seen and examined in no acute distress. Patient still states that he is intense pain everywhere. He states that the pain is worse in his right hip. Pt is tolerating a diet without issues. Patient denies headaches, dyspnea, specific chest pain, subjective fevers or chills, nausea, vomiting, diarrhea, constipation or paresthesias at this time. Objective - Vital Signs/Intake and Output Vital Signs (last 24 hours): Temp Pulse Resp BP Pulse Ox 98.6 F 81 20 106/65 97 03/14/16 07:35 03/14/16 08:38 03/14/16 07:35 03/14/16 07:35 03/14/16 07:35 Intake and Output: 03/14/16 03/14/16 06:59 18:59 Intake Total 540 Output Total 450 Balance 90 - Medications Medications: Current Medications Docusate Sodium (Colace) 100 mg PO DAILY [facility] Last Admin: 03/13/16 09:56 Dose: 100 mg Furosemide (Lasix) 20 mg IVP DAILY [facility] Last Admin: 03/13/16 09:55 Dose: 20 mg Azithromycin 500 mg/ Sodium (Chloride) 250 mls @ 250 mls/hr IVPB DAILY [facility] Last Admin: 03/13/16 09:56 Dose: 250 mls/hr Ceftriaxone Sodium 1 gm/ (Sodium Chloride) 100 mls @ 200 mls/hr IVPB DAILY [facility] Last Admin: 03/13/16 09:56 Dose: 200 mls/hr Tramadol HCl (Ultram) 25 mg PO Q6H PRN PRN Reason: Pain, Mild (1-3) Last Admin: 03/13/16 20:33 Dose: 25 mg Vitamin A (Vitamin A & D Oint Ud Foilpak) 1 ea TOP Q8H [facility] Last Admin: 03/14/16 06:21 Dose: 1 ea - Labs Labs: 03/14/16 07:15 03/14/16 07:15 - Constitutional Appears: Non-toxic, No Acute Distress - Head Exam Head Exam: ATRAUMATIC, NORMAL INSPECTION, NORMOCEPHALIC - Eye Exam Eye Exam: EOMI, Normal appearance, PERRL Pupil Exam: NORMAL ACCOMODATION - ENT Exam ENT Exam: Mucous Membranes Moist, Normal Exam - Neck Exam Neck Exam: Full ROM - Respiratory Exam Respiratory Exam: NORMAL BREATHING PATTERN. absent: Wheezes - Cardiovascular Exam Cardiovascular Exam: REGULAR RHYTHM, +S1, +S2 - GI/Abdominal Exam GI & Abdominal Exam: Soft, Normal Bowel Sounds - Extremities Exam Extremities Exam: Normal Capillary Refill. absent: Full ROM Additional comments: decreased ROM in right hip - Back Exam Back Exam: Full ROM, NORMAL INSPECTION - Neurological Exam Neurological Exam: Alert, Awake, CN II-XII Intact - Psychiatric Exam Psychiatric exam: Depressed, Flat Affect - Skin Skin Exam: Dry, Normal Color, Warm Assessment and Plan - Assessment and Plan (Free Text) Assessment: Abdominal Pain Assessment and Plan: Hip/ Pelvic Xray- heterogenous sclerotic changes at right pelvic bones of uncertain etiology; suspicious for displacement or migration of the prosthesis superiority CT of abd and pelvis- Partial results available- hiatal hernia with airspace disease at lung bases. Need to follow up full report. Per 03/07 admission at [facility]: Abdomen of CT and pelvis showed fecal impaction as well as non obstructing left inguinal hernia containing small bowel. Refer to full report. On Colace. Monitor F/U Blood cultures, repeat UA, Urine cultures Leg edema Assessment and Plan: 20 mg IV Lasix daily Venous dopplers performed on 03/07 admission- No signs of DVT Tramadol 25mg q6h for pain Status: Acute Anemia Stable, likely Anemia of chronic disease and iron deficiency secondary to poor nutrition intake Patient has had extensive workup within the last admission at [facility] in January 2016 F/U Status: Chronic Abnormal UA UA with RBCs and WBCs noted UC likely contaminated per lab Repeat UC Hx of Aortic aneursym Currently 4.5cm Patient needs repeat CT imaging every 6 months Patient should obtain repeat imaging in July 2016 to assess size Status: Chronic Poor nutrition Assessment and Plan: Patient appears malnourished, though eats quite well B12 and Folate levels WNL Gait instability Assessment and Plan: Per Ortho: No acute fracture noted on imaging. No acute ortho intervention at this time. Pt can follow up outpatient. PT/OT recommendations. Pt will be counseled on following up with appointments. Hip/Pelvis XRAY: s/p right hip arthroplasty. Suspicious for displacement or migration of prosthesis superiorly. Heterogenous sclerotic changes at right pelvic bones of uncertain etiology. 03/12/2016 checking imaging of the lower extremity PT eval- Recs for LAXMI Fall risk precaution noted Status: Acute Prophylactic measure Assessment and Plan: Heparin 5000 units q8h A and D ointment to apply to LE Case management referral- Patient is homeless. F/U PT/OT reccs Status: Acute <Jose Wiggins M - Last Filed: 03/14/16 21:32> Objective - Vital Signs/Intake and Output Vital Signs (last 24 hours): Temp Pulse Resp BP Pulse Ox 98.4 F 84 20 106/65 99 03/14/16 15:00 03/14/16 15:00 03/14/16 15:00 03/14/16 16:26 03/14/16 15:00 Intake and Output: 03/14/16 03/15/16 18:59 06:59 Intake Total 540 Output Total 1200 Balance -660 - Medications Medications: Current Medications Docusate Sodium (Colace) 100 mg PO DAILY [facility] Last Admin: 03/14/16 09:40 Dose: 100 mg Furosemide (Lasix) 20 mg IVP DAILY [facility] Last Admin: 03/14/16 09:40 Dose: 20 mg Azithromycin 500 mg/ Sodium (Chloride) 250 mls @ 250 mls/hr IVPB DAILY [facility] Last Admin: 03/14/16 10:19 Dose: 250 mls/hr Ceftriaxone Sodium 1 gm/ (Sodium Chloride) 100 mls @ 200 mls/hr IVPB DAILY [facility] Last Admin: 03/14/16 09:39 Dose: 200 mls/hr Tramadol HCl (Ultram) 25 mg PO Q6H PRN PRN Reason: Pain, Mild (1-3) Last Admin: 03/13/16 20:33 Dose: 25 mg Vitamin A (Vitamin A & D Oint Ud Foilpak) 1 ea TOP Q8H [facility] Last Admin: 03/14/16 13:26 Dose: 1 ea - Labs Labs: 03/14/16 07:15 03/14/16 07:15 Attending/Attestation - Attestation I have personally seen and examined this patient.: Yes I have fully participated in the care of the patient.: Yes I have reviewed all pertinent clinical information, including history, physical exam and plan: Yes Notes (Text): 03/14/16 21:32 patient was seen and examined at bedside with the resident Continue current management continue pain management and physical therapy for leg pain Plan for intervention as per orthopedic
[2016-03-14] MEDS: Azithromycin 500 MG in Sodium Chloride 0.9% 250 ML IVPB SCH (10:19)
--- NOTE | 2016-03-14 16:18 | CT ---
CT abdomen and pelvis without IV contrast Indication: Abdominal pain Technique: Contiguous axial images of the abdomen and pelvis. Oral contrast was administered. No IV contrast given. Coronal and Sagittal reformats generated. Delay in dictation due to technical factors. Radiation dose: Total exam DLP = 440.30 mGy-cm. Comparison: CT abdomen and pelvis with IV contrast performed 01/12/16. Bilateral hip with pelvis radiographs performed 03/12/16 Findings: Examination markedly limited due to paucity of intra-abdominal and intrapelvic fat as well as lack of IV contrast. Partially imaged cardiomegaly. Coronary artery calcifications. Atherosclerotic calcifications. Moderate bilateral pleural effusions and associated consolidations. No visible pneumothorax. Tiny probable gallstones within the gallbladder. Suboptimal evaluation of the solid organs otherwise without gross abnormality appreciated. The stomach is nondistended. Small to moderate hiatal hernia. Moderate to severe constipation with questionable impaction. Right inguinal hernia which contains small loops of bowel, likely small bowel; No evidence of obstruction as oral contrast is noted within the right colon. There is no definite free air, however evaluation for pneumoperitoneum is suboptimal. The prostate gland measures approximately 4.1 x 4.6 cm. The urinary bladder appears unremarkable. Small amount of fluid within a right inguinal hernia. Osseous demineralization limits evaluation for acute fracture lines. Extensive multilevel degenerative changes of the spine as well as pelvis. Streak artifact emanating from right hip arthroplasty. Appearance worrisome for hardware loosening and displacement or migration superiorly. Sclerosis of the right iliac wing. Extensive anasarca. Impression: Examination markedly limited due to paucity of intra-abdominal and intrapelvic fat as well as lack of IV contrast. Moderate bilateral pleural effusions and associated consolidations. Tiny probable gallstones within the gallbladder. Small to moderate hiatal hernia. Right inguinal hernia which contains small loops of bowel, likely small bowel; No evidence of obstruction as oral contrast is noted within the right colon. There is no definite free air, however evaluation for pneumoperitoneum is suboptimal. Moderate to severe constipation with questionable impaction. The prostate gland measures approximately 4.1 x 4.6 cm. The urinary bladder appears unremarkable. Small amount of fluid within a right inguinal hernia. Right hip arthroplasty with appearance worrisome for hardware loosening and displacement or migration superiorly. Sclerosis of the right iliac wing. Extensive anasarca. Remainder of findings as above.
[2016-03-15] MEDS: Vitamins A & D Oint UD Foilpak TOP SCH ×3 (06:03→22:09)
[2016-03-15 06:40] LABS: BASO % 0.5 % (0.0-2.0); EOS # 0.1 K/uL (0.0-0.7); EOS % 1.1 % (0.0-4.0); HEMOGLOBIN 10.1 g/dL (12.0-18.0); LYMPH # 1.3 K/uL (1.0-4.3); LYMPH % 21.1 % (20.0-40.0); MEAN CELL VOLUME 87.3 fL (80.0-94.0); MEAN CORPUSCULAR HEMOGLOBIN 28.9 pg (27.0-31.0); MEAN CORPUSCULAR HGB CONC 33.1 g/dL (33.0-37.0); MEAN PLATELET VOLUME 7.4 fL (7.2-11.7); MONO # 0.7 K/uL (0.0-0.8); MONO % 10.7 % (0.0-10.0); NEUT # 4.2 K/uL (1.8-7.0); NEUT % 66.6 % (50.0-75.0); RBC 3.51 Mil/uL (4.40-5.90); RED CELL DISTRIBUTION WIDTH 16.1 % (11.5-14.5); WHITE BLOOD COUNT 6.3 K/uL (4.8-10.8)
[2016-03-15 06:41] LABS: ALBUMIN 3.2 g/dL (3.5-5.0)
[2016-03-15 06:43] LABS: GFR AFRICAN-AMERICAN > 60; GFR NON-AFRICAN AMERICAN > 60
[2016-03-15 06:44] LABS: ALB/GLOB RATIO 0.7 (1.0-2.1); ALT/SGPT 25 U/L (21-72); AST/SGOT 25 U/L (17-59); BLOOD UREA NITROGEN 13 mg/dL (9-20); CALCIUM 8.5 mg/dl (8.6-10.4); MAGNESIUM 1.9 mg/dL (1.6-2.3)
[2016-03-15] MEDS: Tramadol 25 mg PO PRN ×2 (10:36→22:09)
[2016-03-15] MEDS: Azithromycin 500 MG in Sodium Chloride 0.9% 250 ML IVPB SCH (10:38)
--- NOTE | 2016-03-15 12:19 | CP.PCM.PN ---
<JazmyneLyjan - Last Filed: 03/15/16 12:34> Subjective - Date & Time of Evaluation Date of Evaluation: 03/15/16 Time of Evaluation: 06:15 - Subjective Subjective: PGY 1 Medicine Note- Dr. Wiggins's service Pt seen and examined in no acute distress. Patient states that he is still experiencing pain " all over his body." He specifically states that he also has right hip pain. Patient denies headaches, dyspnea, specific chest pain, palpitations, subjective fevers or chills, nausea, vomiting, diarrhea, constipation or paresthesias at this time. Objective - Vital Signs/Intake and Output Vital Signs (last 24 hours): Temp Pulse Resp BP Pulse Ox 98 F 76 20 105/68 97 03/15/16 07:39 03/15/16 08:55 03/15/16 07:39 03/15/16 10:23 03/15/16 07:39 Intake and Output: 03/15/16 03/15/16 06:59 18:59 Intake Total 240 300 Output Total 400 Balance -160 300 - Medications Medications: Current Medications Docusate Sodium (Colace) 100 mg PO DAILY [facility] Last Admin: 03/15/16 10:23 Dose: 100 mg Furosemide (Lasix) 20 mg IVP DAILY [facility] Last Admin: 03/15/16 10:23 Dose: 20 mg Azithromycin 500 mg/ Sodium (Chloride) 250 mls @ 250 mls/hr IVPB DAILY [facility] Last Admin: 03/15/16 10:38 Dose: 250 mls/hr Ceftriaxone Sodium 1 gm/ (Sodium Chloride) 100 mls @ 200 mls/hr IVPB DAILY [facility] Last Admin: 03/15/16 10:38 Dose: 200 mls/hr Tramadol HCl (Ultram) 25 mg PO Q6H PRN PRN Reason: Pain, Mild (1-3) Last Admin: 03/15/16 10:36 Dose: 25 mg Vitamin A (Vitamin A & D Oint Ud Foilpak) 1 ea TOP Q8H [facility] Last Admin: 03/15/16 06:03 Dose: 1 ea - Labs Labs: 03/15/16 05:45 03/15/16 05:45 - Constitutional Appears: Non-toxic, No Acute Distress - Head Exam Head Exam: ATRAUMATIC, NORMAL INSPECTION, NORMOCEPHALIC - Eye Exam Eye Exam: EOMI, Normal appearance, PERRL Pupil Exam: NORMAL ACCOMODATION, PERRL - ENT Exam ENT Exam: Mucous Membranes Moist - Neck Exam Neck Exam: Full ROM - Respiratory Exam Respiratory Exam: NORMAL BREATHING PATTERN. absent: Wheezes - Cardiovascular Exam Cardiovascular Exam: REGULAR RHYTHM, +S1, +S2 - GI/Abdominal Exam GI & Abdominal Exam: Soft, Normal Bowel Sounds - Extremities Exam Extremities Exam: Normal Capillary Refill. absent: Full ROM - Back Exam Back Exam: Full ROM - Neurological Exam Neurological Exam: Alert, Awake, CN II-XII Intact, Oriented x3 - Psychiatric Exam Psychiatric exam: Flat Affect, Normal Affect, Normal Mood - Skin Skin Exam: Dry, Normal Color, Warm Assessment and Plan - Assessment and Plan (Free Text) Assessment: Abdominal Pain Assessment and Plan: Hip/ Pelvic Xray- heterogenous sclerotic changes at right pelvic bones of uncertain etiology; suspicious for displacement or migration of the prosthesis superiority CT of abd and pelvis- Partial results available- hiatal hernia with airspace disease at lung bases. Need to follow up full report. Per 03/07 admission at [facility]: Abdomen of CT and pelvis showed fecal impaction as well as non obstructing left inguinal hernia containing small bowel. Refer to full report. On Colace. Monitor Blood cultures negative, repeat UC-gram positive cocci- suspicious for contaminant. Continue abx therapy: Azithromycin and Ceftriaxone empirically Leg edema Assessment and Plan: 20 mg IV Lasix daily Venous dopplers performed on 03/07 admission- No signs of DVT Tramadol 25mg q6h for pain Status: Acute Anemia Stable, likely Anemia of chronic disease and iron deficiency secondary to poor nutrition intake Patient has had extensive workup within the last admission at [facility] in January 2016 Counseled patient on Status: Chronic Abnormal UA UA with RBCs and WBCs noted UC gram positive cocci-suspicious for contaminant. Hx of Aortic aneursym Currently 4.5cm Patient needs repeat CT imaging every 6 months Patient should obtain repeat imaging in July 2016 to assess size Status: Chronic Poor nutrition Assessment and Plan: Patient appears malnourished, though eats quite well B12 and Folate levels WNL Gait instability Assessment and Plan: Per Ortho: No acute fracture noted on imaging. No acute ortho intervention at this time. Pt can follow up outpatient. PT/OT recommendations. Pt will be counseled on following up with appointments. Hip/Pelvis XRAY: s/p right hip arthroplasty. Suspicious for displacement or migration of prosthesis superiorly. Heterogenous sclerotic changes at right pelvic bones of uncertain etiology. 03/12/2016 checking imaging of the lower extremity PT eval- patient needs maximum assist and is thus unsafe for discharge now. Will need more physical therapy. Fall risk precaution noted Status: Acute Prophylactic measure Assessment and Plan: Heparin 5000 units q8h A and D ointment to apply to [facility] Case management referral- Patient is homeless. PT eval- patient needs maximum assist and is thus unsafe for discharge now. Will need more physical therapy. <Jose Wiggins - Last Filed: 03/15/16 22:25> Objective - Vital Signs/Intake and Output Vital Signs (last 24 hours): Temp Pulse Resp BP Pulse Ox 98.2 F 86 20 105/64 98 03/15/16 16:00 03/15/16 16:00 03/15/16 16:00 03/15/16 16:00 03/15/16 16:00 Intake and Output: 03/15/16 03/16/16 18:59 06:59 Intake Total 300 Balance 300 - Medications Medications: Current Medications Docusate Sodium (Colace) 100 mg PO DAILY [facility] Last Admin: 03/15/16 10:23 Dose: 100 mg Furosemide (Lasix) 20 mg IVP DAILY [facility] Last Admin: 03/15/16 10:23 Dose: 20 mg Azithromycin 500 mg/ Sodium (Chloride) 250 mls @ 250 mls/hr IVPB DAILY [facility] Last Admin: 03/15/16 10:38 Dose: 250 mls/hr Ceftriaxone Sodium 1 gm/ (Sodium Chloride) 100 mls @ 200 mls/hr IVPB DAILY [facility] Last Admin: 03/15/16 10:38 Dose: 200 mls/hr Tramadol HCl (Ultram) 25 mg PO Q6H PRN PRN Reason: Pain, Mild (1-3) Last Admin: 03/15/16 22:09 Dose: 25 mg Vitamin A (Vitamin A & D Oint Ud Foilpak) 1 ea TOP Q8H [facility] Last Admin: 03/15/16 22:09 Dose: 1 ea - Labs Labs: 03/15/16 05:45 03/15/16 05:45 Attending/Attestation - Attestation I have personally seen and examined this patient.: Yes I have fully participated in the care of the patient.: Yes I have reviewed all pertinent clinical information, including history, physical exam and plan: Yes Notes (Text): 03/15/16 22:24 patient was seen and examined at bedside Still complains of pain in the lower extremities Urine cultures noted Possibly contaminant We will continue current antibiotics Discharge planning in progress
[2016-03-16] MEDS: Vitamins A & D Oint UD Foilpak TOP SCH ×4 (05:59→21:40)
[2016-03-16 06:56] LABS: ALBUMIN 3.2 g/dL (3.5-5.0)
[2016-03-16 06:57] LABS: BASO % 0.8 % (0.0-2.0); EOS # 0.1 K/uL (0.0-0.7); EOS % 1.9 % (0.0-4.0); HEMOGLOBIN 10.2 g/dL (12.0-18.0); LYMPH # 1.4 K/uL (1.0-4.3); MEAN CELL VOLUME 88.1 fL (80.0-94.0); MEAN CORPUSCULAR HEMOGLOBIN 29.4 pg (27.0-31.0); MEAN CORPUSCULAR HGB CONC 33.4 g/dL (33.0-37.0); MEAN PLATELET VOLUME 7.7 fL (7.2-11.7); MONO # 0.6 K/uL (0.0-0.8); MONO % 10.8 % (0.0-10.0); NEUT # 3.6 K/uL (1.8-7.0); NEUT % 62.5 % (50.0-75.0); NRBC % 0.1 % (0.0-2.0); RBC 3.46 Mil/uL (4.40-5.90); RED CELL DISTRIBUTION WIDTH 15.8 % (11.5-14.5); WHITE BLOOD COUNT 5.8 K/uL (4.8-10.8)
[2016-03-16 06:59] LABS: AST/SGOT 26 U/L (17-59); GFR AFRICAN-AMERICAN > 60; GFR NON-AFRICAN AMERICAN > 60
[2016-03-16 07:00] LABS: ALB/GLOB RATIO 0.7 (1.0-2.1); ALT/SGPT 31 U/L (21-72); BLOOD UREA NITROGEN 17 mg/dL (9-20); CALCIUM 8.5 mg/dl (8.6-10.4); MAGNESIUM 1.8 mg/dL (1.6-2.3)
[2016-03-16] MEDS: Tramadol 25 mg PO PRN ×2 (09:45→21:42)
[2016-03-16] MEDS: Azithromycin 500 MG in Sodium Chloride 0.9% 250 ML IVPB SCH (09:49)
--- NOTE | 2016-03-16 10:42 | CP.PCM.PN ---
Addendum entered and electronically signed by Shabana Samano DO 03/16/16 14 :04: Dietary reccs for Ensure Enlive TID.- Added on with meals. Continue to monitor Original Note: <Shabana Samano - Last Filed: 03/16/16 10:39> Subjective - Date & Time of Evaluation Date of Evaluation: 03/16/16 Time of Evaluation: 06:11 - Subjective Subjective: PGY 1 Medicine Note- Dr. Wiggins's service Pt seen and examined in no acute distress. Patient states that he is in continuous pain all over his body. Per Physical therapy, patient is nearly completely reliant on someone else to help with assists and transfers. Patient was re-evaluated and still non-weight bearing per ortho evaluation as well. Pt has a good appetite. Pt denies subjective fevers or chills, nausea, vomiting, diarrhea, constipation, diarrhea, chest pain, dyspnea or palpitations at this time. Objective - Vital Signs/Intake and Output Vital Signs (last 24 hours): Temp Pulse Resp BP Pulse Ox 98 F 80 20 119/69 98 03/16/16 07:17 03/16/16 07:17 03/16/16 07:17 03/16/16 09:48 03/16/16 07:17 Intake and Output: 03/16/16 03/16/16 06:59 18:59 Intake Total 600 Balance 600 - Medications Medications: Current Medications Docusate Sodium (Colace) 100 mg PO DAILY [facility] Last Admin: 03/16/16 09:46 Dose: 100 mg Furosemide (Lasix) 20 mg IVP DAILY [facility] Last Admin: 03/16/16 09:48 Dose: 20 mg Azithromycin 500 mg/ Sodium (Chloride) 250 mls @ 250 mls/hr IVPB DAILY [facility] Last Admin: 03/16/16 09:49 Dose: 250 mls/hr Ceftriaxone Sodium 1 gm/ (Sodium Chloride) 100 mls @ 200 mls/hr IVPB DAILY [facility] Last Admin: 03/16/16 09:48 Dose: 200 mls/hr Tramadol HCl (Ultram) 25 mg PO Q6H PRN PRN Reason: Pain, Mild (1-3) Last Admin: 03/16/16 09:45 Dose: 25 mg Vitamin A (Vitamin A & D Oint Ud Foilpak) 1 ea TOP Q8H [facility] Last Admin: 03/16/16 05:59 Dose: 1 ea - Labs Labs: 03/16/16 06:21 03/16/16 06:21 - Constitutional Appears: Non-toxic, No Acute Distress - Head Exam Head Exam: ATRAUMATIC, NORMAL INSPECTION, NORMOCEPHALIC - Eye Exam Eye Exam: EOMI, Normal appearance, PERRL Pupil Exam: NORMAL ACCOMODATION - ENT Exam ENT Exam: Mucous Membranes Moist - Neck Exam Neck Exam: Full ROM - Respiratory Exam Respiratory Exam: NORMAL BREATHING PATTERN. absent: Wheezes - Cardiovascular Exam Cardiovascular Exam: REGULAR RHYTHM, +S1, +S2 - GI/Abdominal Exam GI & Abdominal Exam: Soft, Normal Bowel Sounds - Extremities Exam Extremities Exam: Full ROM, Normal Capillary Refill - Back Exam Back Exam: Full ROM - Neurological Exam Neurological Exam: Alert, Awake, CN II-XII Intact, Oriented x3. absent: Normal Gait - Psychiatric Exam Psychiatric exam: Normal Affect, Normal Mood - Skin Skin Exam: Dry, Intact, Normal Color, Warm Assessment and Plan - Assessment and Plan (Free Text) Assessment: Abdominal Pain Assessment and Plan: Hip/ Pelvic Xray- heterogenous sclerotic changes at right pelvic bones of uncertain etiology; suspicious for displacement or migration of the prosthesis superiority CT of abd and pelvis- Partial results available- hiatal hernia with airspace disease at lung bases. Need to follow up full report. Per 03/07 admission at [facility]: Abdomen of CT and pelvis showed fecal impaction as well as non obstructing left inguinal hernia containing small bowel. Refer to full report. On Colace. Monitor Blood cultures negative, repeat UC-gram positive cocci enterococcus- suspicious for contaminant. Repeat UC D/C abx therapy Leg edema Assessment and Plan: 20 mg IV Lasix daily Venous dopplers performed on 03/07 admission- No signs of DVT Tramadol 25mg q6h for pain Status: Acute Anemia Assessment and Plan: Stable, likely Anemia of chronic disease and iron deficiency secondary to poor nutrition intake Patient has had extensive workup within the last admission at [facility] in January 2016 Counseled patient on F/U in outpatient clinic after d/c for management care Status: Chronic Abnormal UA Assessment and Plan: UA with RBCs and WBCs noted UC gram positive cocci-suspicious for contaminant. Repeat UC. Hx of Aortic aneursym Assessment and Plan: Currently 4.5cm Patient needs repeat CT imaging every 6 months Patient should obtain repeat imaging in July 2016 to assess size Status: Chronic Poor nutrition Assessment and Plan: Patient appears malnourished, though eats quite well B12 and Folate levels WNL Gait instability Assessment and Plan: Per Ortho: No acute fracture noted on imaging. No acute ortho intervention at this time. Pt can follow up outpatient. PT/OT recommendations. Pt will be counseled on following up with appointments. Patient nonweightbearing Hip/Pelvis XRAY: s/p right hip arthroplasty. Suspicious for displacement or migration of prosthesis superiorly. Heterogenous sclerotic changes at right pelvic bones of uncertain etiology. 03/12/2016 checking imaging of the lower extremity PT eval- patient needs maximum assist and is thus unsafe for discharge now. Will need more physical therapy. Fall risk precaution noted Status: Acute Prophylactic measure Assessment and Plan: Heparin 5000 units q8h A and D ointment to apply to [facility] Case management referral- Patient is homeless. PT eval- patient needs maximum assist and non weight bearing and is thus unsafe for discharge now. Will need more physical therapy until stable enough for discharge.- F/U. Continue to monitor <Jose Wiggins M - Last Filed: 03/17/16 07:55> Objective - Vital Signs/Intake and Output Vital Signs (last 24 hours): Temp Pulse Resp BP Pulse Ox 98.1 F 82 20 100/59 L 100 03/17/16 00:00 03/17/16 00:00 03/17/16 00:00 03/17/16 00:00 03/17/16 00:00 Intake and Output: 03/17/16 03/17/16 06:59 18:59 Intake Total 240 Output Total 500 Balance -260 - Medications Medications: Current Medications Docusate Sodium (Colace) 100 mg PO DAILY [facility] Last Admin: 03/16/16 09:46 Dose: 100 mg Furosemide (Lasix) 20 mg IVP DAILY [facility] Last Admin: 03/16/16 09:48 Dose: 20 mg Azithromycin 500 mg/ Sodium (Chloride) 250 mls @ 250 mls/hr IVPB DAILY [facility] Last Admin: 03/16/16 09:49 Dose: 250 mls/hr Ceftriaxone Sodium 1 gm/ (Sodium Chloride) 100 mls @ 200 mls/hr IVPB DAILY [facility] Last Admin: 03/16/16 09:48 Dose: 200 mls/hr Tramadol HCl (Ultram) 25 mg PO Q6H PRN PRN Reason: Pain, Mild (1-3) Last Admin: 03/17/16 05:22 Dose: 25 mg Vitamin A (Vitamin A & D Oint Ud Foilpak) 1 ea TOP Q8H [facility] Last Admin: 03/17/16 05:17 Dose: 1 ea - Labs Labs: 03/17/16 06:15 03/17/16 06:15 Attending/Attestation - Attestation I have personally seen and examined this patient.: Yes I have fully participated in the care of the patient.: Yes I have reviewed all pertinent clinical information, including history, physical exam and plan: Yes Notes (Text): 03/17/16 07:55 Patient was seen and examined at bedside with the resident Patient is unsafe discharge right now Continue physical therapy and encourage ambulation Adequate pain management while the patient is in the hospital Agree with dietary supplements Discussed the plan of care with the resident
[2016-03-17] MEDS: Vitamins A & D Oint UD Foilpak TOP SCH ×3 (05:17→21:36)
[2016-03-17] MEDS: Tramadol 25 mg PO PRN ×3 (05:22→21:40)
[2016-03-17 06:48] LABS: ALBUMIN 3.2 g/dL (3.5-5.0)
[2016-03-17 06:50] LABS: GFR AFRICAN-AMERICAN > 60; GFR NON-AFRICAN AMERICAN > 60
[2016-03-17 06:51] LABS: ALT/SGPT 27 U/L (21-72); AST/SGOT 22 U/L (17-59); BLOOD UREA NITROGEN 15 mg/dL (9-20)
[2016-03-17 06:52] LABS: ALB/GLOB RATIO 0.7 (1.0-2.1); BASO % 0.6 % (0.0-2.0); CALCIUM 8.6 mg/dl (8.6-10.4); EOS # 0.1 K/uL (0.0-0.7); HEMOGLOBIN 10.1 g/dL (12.0-18.0); LYMPH # 1.5 K/uL (1.0-4.3); LYMPH % 26.4 % (20.0-40.0); MAGNESIUM 1.8 mg/dL (1.6-2.3); MEAN CORPUSCULAR HEMOGLOBIN 30.2 pg (27.0-31.0); MEAN CORPUSCULAR HGB CONC 34.3 g/dL (33.0-37.0); MEAN PLATELET VOLUME 7.7 fL (7.2-11.7); MONO # 0.5 K/uL (0.0-0.8); MONO % 9.1 % (0.0-10.0); NEUT # 3.5 K/uL (1.8-7.0); NEUT % 61.9 % (50.0-75.0); RBC 3.34 Mil/uL (4.40-5.90); RED CELL DISTRIBUTION WIDTH 15.9 % (11.5-14.5); WHITE BLOOD COUNT 5.7 K/uL (4.8-10.8)
--- NOTE | 2016-03-17 09:38 | CP.PCM.PN ---
Subjective - Date & Time of Evaluation Date of Evaluation: 03/17/16 Time of Evaluation: 09:38 - Subjective Subjective: Patient with continued significant pain, especially in right hip. Objective - Vital Signs/Intake and Output Vital Signs (last 24 hours): Temp Pulse Resp BP Pulse Ox 98.5 F 80 20 142/86 97 03/17/16 08:00 03/17/16 08:00 03/17/16 08:00 03/17/16 08:00 03/17/16 08:00 Intake and Output: 03/17/16 03/17/16 06:59 18:59 Intake Total 240 Output Total 500 Balance -260 - Medications Medications: Current Medications Docusate Sodium (Colace) 100 mg PO DAILY [facility] Last Admin: 03/16/16 09:46 Dose: 100 mg Furosemide (Lasix) 20 mg IVP DAILY [facility] Last Admin: 03/16/16 09:48 Dose: 20 mg Azithromycin 500 mg/ Sodium (Chloride) 250 mls @ 250 mls/hr IVPB DAILY [facility] Last Admin: 03/16/16 09:49 Dose: 250 mls/hr Ceftriaxone Sodium 1 gm/ (Sodium Chloride) 100 mls @ 200 mls/hr IVPB DAILY [facility] Last Admin: 03/16/16 09:48 Dose: 200 mls/hr Tramadol HCl (Ultram) 25 mg PO Q6H PRN PRN Reason: Pain, Mild (1-3) Last Admin: 03/17/16 05:22 Dose: 25 mg Vitamin A (Vitamin A & D Oint Ud Foilpak) 1 ea TOP Q8H [facility] Last Admin: 03/17/16 05:17 Dose: 1 ea - Labs Labs: 03/17/16 06:15 03/17/16 06:15 - Extremities Exam Additional comments: Patient with poor bed mobility, little right hip ROM. NVID. Poor hygiene. 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 Pino, agrees with above Status: Acute
[2016-03-17] MEDS ORDERED: Azithromycin 500mg/250ML NS 250 ML IVPB SCH (10:00)
--- NOTE | 2016-03-17 10:41 | RAD ---
HISTORY: rule out pneumonia COMPARISON: 11/04/2011 FINDINGS: LUNGS: There is an opacity in the right apex. There is mild emphysema. PLEURA: No significant pleural effusion identified, no pneumothorax apparent. CARDIOVASCULAR: Normal. OSSEOUS STRUCTURES: No significant abnormalities. VISUALIZED UPPER ABDOMEN: Normal. OTHER FINDINGS: None. IMPRESSION: Right upper lobe opacity. Findings could represent an apical mass or prominent superior vena cava. Repeat PA and lateral chest radiographs are recommended for further evaluation.
[2016-03-17] MEDS: Azithromycin 500 MG in Sodium Chloride 0.9% 250 ML IVPB SCH (11:37)
--- NOTE | 2016-03-17 12:13 | CARD ---
APPROVED REPORT EKG Measurement Heart [id number] <Conclusion> Poor data quality, interpretation may be adversely affected Sinus rhythm with occasional premature ventricular complexes Otherwise normal ECG
--- NOTE | 2016-03-17 14:17 | CP.PCM.PN ---
<Shabana Samano - Last Filed: 03/17/16 17:43> Subjective - Date & Time of Evaluation Date of Evaluation: 03/17/16 Time of Evaluation: 06:22 - Subjective Subjective: PGY 1 Medicine Note- Dr. Wiggins's service Pt seen and examined in no acute distress. Pt states that he is still having significant pain in his hip. Patient is encouraged to get out of bed with assistance of an aid or with physical therapy. Pt denies headaches, chest pain , paresthesias, nausea, vomiting, diarrhea, shortness of breath, palpitations or subjective fevers or chills at this time. Objective - Vital Signs/Intake and Output Vital Signs (last 24 hours): Temp Pulse Resp BP Pulse Ox 98.5 F 80 20 142/86 97 03/17/16 08:00 03/17/16 08:00 03/17/16 08:00 03/17/16 10:45 03/17/16 08:00 Intake and Output: 03/17/16 03/17/16 06:59 18:59 Intake Total 240 Output Total 500 Balance -260 - Medications Medications: Current Medications Docusate Sodium (Colace) 100 mg PO DAILY [facility] Last Admin: 03/17/16 10:45 Dose: 100 mg Furosemide (Lasix) 40 mg PO DAILY [facility] Last Admin: 03/17/16 10:45 Dose: 40 mg Heparin Sodium (Porcine) (Heparin) 5,000 units SC Q8 [facility] Last Admin: 03/17/16 13:55 Dose: 5,000 units Ceftriaxone Sodium 1 gm/ (Sodium Chloride) 100 mls @ 200 mls/hr IVPB DAILY [facility] Last Admin: 03/17/16 10:46 Dose: 200 mls/hr Azithromycin 500 mg/ Sodium (Chloride) 250 mls @ 167 mls/hr IVPB Q24H [facility] Last Admin: 03/17/16 11:37 Dose: 167 mls/hr Tramadol HCl (Ultram) 25 mg PO Q6H PRN PRN Reason: Pain, Mild (1-3) Last Admin: 03/17/16 13:51 Dose: 25 mg Vitamin A (Vitamin A & D Oint Ud Foilpak) 1 ea TOP Q8H [facility] Last Admin: 03/17/16 13:55 Dose: 1 ea - Labs Labs: 03/17/16 06:15 03/17/16 06:15 - Constitutional Appears: No Acute Distress, Unkempt - Head Exam Head Exam: ATRAUMATIC, NORMAL INSPECTION, NORMOCEPHALIC - Eye Exam Eye Exam: EOMI, Normal appearance, PERRL Pupil Exam: NORMAL ACCOMODATION, PERRL - ENT Exam ENT Exam: Mucous Membranes Moist - Neck Exam Neck Exam: Full ROM - Respiratory Exam Respiratory Exam: NORMAL BREATHING PATTERN. absent: Wheezes - Cardiovascular Exam Cardiovascular Exam: REGULAR RHYTHM, +S1, +S2 - GI/Abdominal Exam GI & Abdominal Exam: Soft, Normal Bowel Sounds - Extremities Exam Extremities Exam: Normal Capillary Refill. absent: Full ROM, Pedal Edema - Back Exam Back Exam: Full ROM - Neurological Exam Neurological Exam: Alert, Awake, CN II-XII Intact, Oriented x3 - Psychiatric Exam Psychiatric exam: Normal Affect, Normal Mood - Skin Skin Exam: Dry, Intact, Warm Assessment and Plan - Assessment and Plan (Free Text) Assessment: Abdominal Pain Assessment and Plan: 03/17/16: Chest Xray- right upper lobe opacity; findings could be apical mass or prominent SVC. AP/PA films warranted- F/U Hip/ Pelvic Xray- heterogenous sclerotic changes at right pelvic bones of uncertain etiology; suspicious for displacement or migration of the prosthesis superiority CT of abd and pelvis- Partial results available- hiatal hernia with airspace disease at lung bases. Need to follow up full report. Per 03/07 admission at [facility]: Abdomen of CT and pelvis showed fecal impaction as well as non obstructing left inguinal hernia containing small bowel. Refer to full report. On Colace. Monitor Blood cultures negative, repeat UC-gram positive cocci enterococcus- suspicious for contaminant. Repeat UC D/C abx therapy Leg edema Assessment and Plan: 40mg PO Lasix daily Venous dopplers performed on 03/07 admission- No signs of DVT Tramadol 25mg q6h for pain Status: Acute Anemia Assessment and Plan: Stable, likely Anemia of chronic disease and iron deficiency secondary to poor nutrition intake Patient has had extensive workup within the last admission at [facility] in January 2016 Counseled patient on F/U in outpatient clinic after d/c for management care Status: Chronic Abnormal UA Assessment and Plan: UA with RBCs and WBCs noted UC gram positive cocci-suspicious for contaminant. Repeat UC. Hx of Aortic aneursym Assessment and Plan: Currently 4.5cm Patient needs repeat CT imaging every 6 months Patient should obtain repeat imaging in July 2016 to assess size Status: Chronic Poor nutrition Assessment and Plan: Patient appears malnourished, though eats quite well B12 and Folate levels WNL Ensure Enlive TID.- Added on with meals. Gait instability Assessment and Plan: Per Ortho: No acute fracture noted on imaging. No acute ortho intervention at this time. Pt can follow up outpatient. PT/OT recommendations. Pt will be counseled on following up with appointments. Patient nonweightbearing at this time Hip/Pelvis XRAY: s/p right hip arthroplasty. Suspicious for displacement or migration of prosthesis superiorly. Heterogenous sclerotic changes at right pelvic bones of uncertain etiology. 03/12/2016 checking imaging of the lower extremity PT eval- patient needs maximum assist and is thus unsafe for discharge now. Will need more physical therapy. Fall risk precaution noted Status: Acute Prophylactic measure Assessment and Plan: Heparin 5000 units q8h A and D ointment to apply to [facility] Case management referral- Patient is homeless. PT eval- Pt has needed maximum assist and has been non weight bearing and is thus unsafe for discharge now. Will need more physical therapy until stable enough for discharge.- F/U PT reccs O/T- Follow up Out of bed with continued Physical therapy. Awaiting reccs Continue to monitor <Jose Wiggins - Last Filed: 03/17/16 18:04> Objective - Vital Signs/Intake and Output Vital Signs (last 24 hours): Temp Pulse Resp BP Pulse Ox 97.8 F 95 H 20 113/69 98 03/17/16 16:07 03/17/16 17:08 03/17/16 16:07 03/17/16 16:07 03/17/16 16:07 Intake and Output: 03/17/16 03/17/16 06:59 18:59 Intake Total 240 Output Total 500 Balance -260 - Medications Medications: Current Medications Docusate Sodium (Colace) 100 mg PO DAILY [facility] Last Admin: 03/17/16 10:45 Dose: 100 mg Furosemide (Lasix) 40 mg PO DAILY [facility] Last Admin: 03/17/16 10:45 Dose: 40 mg Heparin Sodium (Porcine) (Heparin) 5,000 units SC Q8 [facility] Last Admin: 03/17/16 13:55 Dose: 5,000 units Ceftriaxone Sodium 1 gm/ (Sodium Chloride) 100 mls @ 200 mls/hr IVPB DAILY [facility] Last Admin: 03/17/16 10:46 Dose: 200 mls/hr Azithromycin 500 mg/ Sodium (Chloride) 250 mls @ 167 mls/hr IVPB Q24H [facility] Last Admin: 03/17/16 11:37 Dose: 167 mls/hr Tramadol HCl (Ultram) 25 mg PO Q6H PRN PRN Reason: Pain, Mild (1-3) Last Admin: 03/17/16 13:51 Dose: 25 mg Vitamin A (Vitamin A & D Oint Ud Foilpak) 1 ea TOP Q8H [facility] Last Admin: 03/17/16 13:55 Dose: 1 ea - Labs Labs: 03/17/16 06:15 03/17/16 06:15 Attending/Attestation - Attestation I have personally seen and examined this patient.: Yes I have fully participated in the care of the patient.: Yes I have reviewed all pertinent clinical information, including history, physical exam and plan: Yes Notes (Text): 03/17/16 17:55 Patient was seen and examined at bedside Patient still complaining of leg pain Continue physical therapy daily Patient is not ready for discharge Follow up chest x ray for possible apical mass
--- NOTE | 2016-03-17 18:42 | RAD ---
PROCEDURE: CHEST RADIOGRAPH, 1 VIEW HISTORY: abnormality on portable film, two views indicated COMPARISON: Comparison is made to 03/17/2016 FINDINGS: LUNGS: Previously seen right upper lobe opacity in the previous exam is not seen in the current study. Otherwise no significant interval change in the lungs PLEURA: No pneumothorax or pleural fluid seen. CARDIOVASCULAR: Normal. OSSEOUS STRUCTURES: No significant abnormalities. VISUALIZED UPPER ABDOMEN: Normal. OTHER FINDINGS: None. IMPRESSION: Previously seen right upper lobe opacity in the previous exam is not seen in the current study.
[2016-03-18] MEDS: Tramadol 25 mg PO PRN ×2 (05:32→22:24)
[2016-03-18] MEDS: Vitamins A & D Oint UD Foilpak TOP SCH ×3 (05:35→23:24)
[2016-03-18 07:43] LABS: BASO # 0.1 K/uL (0.0-0.2); BASO % 1.4 % (0.0-2.0); EOS # 0.1 K/uL (0.0-0.7); EOS % 2.2 % (0.0-4.0); HEMOGLOBIN 9.8 g/dL (12.0-18.0); LYMPH # 1.3 K/uL (1.0-4.3); MEAN CELL VOLUME 87.5 fL (80.0-94.0); MEAN CORPUSCULAR HEMOGLOBIN 29.7 pg (27.0-31.0); MEAN CORPUSCULAR HGB CONC 33.9 g/dL (33.0-37.0); MEAN PLATELET VOLUME 7.3 fL (7.2-11.7); MONO # 0.5 K/uL (0.0-0.8); MONO % 9.8 % (0.0-10.0); NEUT # 3.1 K/uL (1.8-7.0); NEUT % 60.6 % (50.0-75.0); RBC 3.31 Mil/uL (4.40-5.90); RED CELL DISTRIBUTION WIDTH 16.2 % (11.5-14.5); WHITE BLOOD COUNT 5.2 K/uL (4.8-10.8)
[2016-03-18 07:59] LABS: ALBUMIN 3.1 g/dL (3.5-5.0)
[2016-03-18 08:02] LABS: AST/SGOT 22 U/L (17-59); GFR AFRICAN-AMERICAN > 60; GFR NON-AFRICAN AMERICAN > 60
[2016-03-18 08:03] LABS: ALB/GLOB RATIO 0.7 (1.0-2.1); ALT/SGPT 33 U/L (21-72); BLOOD UREA NITROGEN 18 mg/dL (9-20); CALCIUM 8.6 mg/dl (8.6-10.4); MAGNESIUM 1.8 mg/dL (1.6-2.3)
--- NOTE | 2016-03-18 08:55 | CP.PCM.PN ---
<Tessa Molina - Last Filed: 03/18/16 18:12> Subjective - Date & Time of Evaluation Date of Evaluation: 03/18/16 Time of Evaluation: 10:00 - Subjective Subjective: PGY 2 Medicine Progress Note- Dr. Wiggins's service Pt seen and examined at bedside this AM. Pt states that he is still having 10/ 10 pain in his right hip. Patient admits to headaches this AM. Denies chest pain , shortness of breath, palpitations, numbness, tingling, nausea, vomiting, diarrhea, fevers or chills at this time. He is also complaining of supra pubic pain and dysuria. No trouble making urine. No other complaints at this time. Objective - Vital Signs/Intake and Output Vital Signs (last 24 hours): Temp Pulse Resp BP Pulse Ox 98 F 77 20 109/65 97 03/18/16 07:46 03/18/16 07:46 03/18/16 07:46 03/18/16 07:46 03/18/16 07:46 Intake and Output: 03/18/16 03/18/16 06:59 18:59 Intake Total 400 Balance 400 - Medications Medications: Current Medications Docusate Sodium (Colace) 100 mg PO DAILY [facility] Last Admin: 03/17/16 10:45 Dose: 100 mg Furosemide (Lasix) 40 mg PO DAILY [facility] Last Admin: 03/17/16 10:45 Dose: 40 mg Heparin Sodium (Porcine) (Heparin) 5,000 units SC Q8 [facility] Last Admin: 03/18/16 05:35 Dose: 5,000 units Ceftriaxone Sodium 1 gm/ (Sodium Chloride) 100 mls @ 200 mls/hr IVPB DAILY [facility] Last Admin: 03/17/16 10:46 Dose: 200 mls/hr Azithromycin 500 mg/ Sodium (Chloride) 250 mls @ 167 mls/hr IVPB Q24H [facility] Last Admin: 03/17/16 11:37 Dose: 167 mls/hr Tramadol HCl (Ultram) 25 mg PO Q6H PRN PRN Reason: Pain, Mild (1-3) Last Admin: 03/18/16 05:32 Dose: 25 mg Vitamin A (Vitamin A & D Oint Ud Foilpak) 1 ea TOP Q8H [facility] Last Admin: 03/18/16 05:35 Dose: 1 ea - Labs Labs: 01/07/17 07:36 03/18/16 07:36 - Constitutional Appears: No Acute Distress - Head Exam Head Exam: NORMAL INSPECTION, NORMOCEPHALIC - Eye Exam Eye Exam: EOMI, Normal appearance - ENT Exam ENT Exam: Mucous Membranes Moist - Neck Exam Neck Exam: Full ROM - Respiratory Exam Respiratory Exam: Clear to Ausculation Bilateral, NORMAL BREATHING PATTERN - Cardiovascular Exam Cardiovascular Exam: REGULAR RHYTHM, +S1, +S2 - GI/Abdominal Exam GI & Abdominal Exam: Soft, Tenderness (suprapubic), Normal Bowel Sounds - Extremities Exam Extremities Exam: Full ROM, Normal Inspection, Tenderness (over right hip) - Back Exam Back Exam: NORMAL INSPECTION - Neurological Exam Neurological Exam: Alert, Oriented x3 - Psychiatric Exam Psychiatric exam: Normal Affect, Normal Mood - Skin Skin Exam: Normal Color, Warm Assessment and Plan - Assessment and Plan (Free Text) Assessment: UTI Assessment and Plan: Patient with suprapubic pain and dysuria UA with RBCs and WBCs noted Urine Cx gram positive for E. faecalis, sensitive to vanco. Start Vanco IVPB f/u repeat Urine Cx and UA. Abdominal Pain Assessment and Plan: Possibly secondary to UTI. See plan above. CT of abd and pelvis- Partial results available- hiatal hernia with airspace disease at lung bases. Need to follow up full report. Per 03/07 admission at [facility]: Abdomen of CT and pelvis showed fecal impaction as well as non obstructing left inguinal hernia containing small bowel. Refer to full report. On Colace. Monitor Abnormal Chest X-Ray Assessment and Plan: f/u Chest CT ordered Repeat Chest Xray 03/17/16 - right upper lobe opacity in the previous exam is not seen in the current study. Chest Xray 03/17/16 Right upper lobe opacity Leg edema Assessment and Plan: 40mg PO Lasix daily Venous dopplers performed on 03/07 admission- No signs of DVT Tramadol 25mg q6h for pain Status: Acute Anemia Assessment and Plan: Stable, likely Anemia of chronic disease and iron deficiency secondary to poor nutrition intake Patient has had extensive workup within the last admission at [facility] in January 2016 Counseled patient on F/U in outpatient clinic after d/c for management care Status: Chronic Gait instability Assessment and Plan: Per Ortho: No acute fracture noted on imaging. No acute ortho intervention at this time. Pt can follow up outpatient. PT/OT recommendations. Pt will be counseled on following up with appointments. Patient non weight bearing at this time Hip/Pelvis XRAY: s/p right hip arthroplasty. Suspicious for displacement or migration of prosthesis superiorly. Heterogenous sclerotic changes at right pelvic bones of uncertain etiology. 03/12/2016 checking imaging of the lower extremity PT eval- patient needs maximum assist and is thus unsafe for discharge now. Will need more physical therapy. Fall risk precaution noted Status: Acute Hx of Aortic aneursym Assessment and Plan: Currently 4.5cm Patient needs repeat CT imaging every 6 months Patient should obtain repeat imaging in July 2016 to assess size Status: Chronic Poor nutrition Assessment and Plan: Patient appears malnourished, though eats quite well B12 and Folate levels WNL Ensure Enlive TID.- Added on with meals. Prophylactic measure Assessment and Plan: Heparin 5000 units q8h A and D ointment to apply to [facility] Case management referral- Patient is homeless. PT/OT Out of bed with continued Physical therapy. Continue to monitor <Jose Wiggins - Last Filed: 03/19/16 09:03> Objective - Vital Signs/Intake and Output Vital Signs (last 24 hours): Temp Pulse Resp BP Pulse Ox 98.1 F 76 20 112/65 99 03/19/16 07:56 03/19/16 07:56 03/19/16 07:56 03/19/16 07:56 03/19/16 07:56 Intake and Output: 03/19/16 03/19/16 06:59 18:59 Intake Total 480 Output Total 400 Balance 80 - Medications Medications: Current Medications Docusate Sodium (Colace) 100 mg PO DAILY [facility] Last Admin: 03/18/16 10:41 Dose: 100 mg Furosemide (Lasix) 40 mg PO DAILY [facility] Last Admin: 03/18/16 10:41 Dose: Not Given Heparin Sodium (Porcine) (Heparin) 5,000 units SC Q8 [facility] Last Admin: 03/19/16 05:37 Dose: 5,000 units Ceftriaxone Sodium 1 gm/ (Sodium Chloride) 100 mls @ 200 mls/hr IVPB DAILY [facility] Last Admin: 03/18/16 10:41 Dose: 200 mls/hr Azithromycin 500 mg/ Sodium (Chloride) 250 mls @ 167 mls/hr IVPB Q24H [facility] Last Admin: 03/18/16 11:38 Dose: 167 mls/hr Vancomycin/Sodium Chloride (Vancocin) 200 mls @ 133.333 mls/hr IVPB Q24H [facility] Stop: 03/23/16 19:01 Last Admin: 03/18/16 19:28 Dose: 133.333 mls/hr Tramadol HCl (Ultram) 25 mg PO Q6H PRN PRN Reason: Pain, Mild (1-3) Last Admin: 03/18/16 22:24 Dose: 25 mg Vitamin A (Vitamin A & D Oint Ud Foilpak) 1 ea TOP Q8H [facility] Last Admin: 03/19/16 05:36 Dose: 1 ea - Labs Labs: 03/18/16 07:36 03/18/16 07:36 Attending/Attestation - Attestation I have personally seen and examined this patient.: Yes I have fully participated in the care of the patient.: Yes I have reviewed all pertinent clinical information, including history, physical exam and plan: Yes Notes (Text): 03/19/16 09:02 Patient was seen and examined at bedside with the resident 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
[2016-03-18] MEDS: Azithromycin 500 MG in Sodium Chloride 0.9% 250 ML IVPB SCH (11:38)
[2016-03-18] MEDS: Vancomycin 1 gm/NS 200 ml 200 ML IVPB SCH (19:28)
[2016-03-19] MEDS: Vitamins A & D Oint UD Foilpak TOP SCH ×3 (05:36→22:06)
[2016-03-19 09:11] LABS: AST/SGOT 21 U/L (17-59); GFR AFRICAN-AMERICAN > 60; GFR NON-AFRICAN AMERICAN > 60
[2016-03-19 09:12] LABS: ALB/GLOB RATIO 0.7 (1.0-2.1); ALT/SGPT 33 U/L (21-72); BASO # 0.1 K/uL (0.0-0.2); BASO % 1.3 % (0.0-2.0); BLOOD UREA NITROGEN 18 mg/dL (9-20); CALCIUM 8.7 mg/dl (8.6-10.4); EOS # 0.1 K/uL (0.0-0.7); HEMOGLOBIN 9.8 g/dL (12.0-18.0); LYMPH # 1.4 K/uL (1.0-4.3); LYMPH % 31.5 % (20.0-40.0); MAGNESIUM 1.7 mg/dL (1.6-2.3); MEAN CELL VOLUME 88.4 fL (80.0-94.0); MEAN CORPUSCULAR HEMOGLOBIN 29.5 pg (27.0-31.0); MEAN CORPUSCULAR HGB CONC 33.3 g/dL (33.0-37.0); MONO # 0.5 K/uL (0.0-0.8); NEUT # 2.4 K/uL (1.8-7.0); NEUT % 53.2 % (50.0-75.0); RBC 3.33 Mil/uL (4.40-5.90); RED CELL DISTRIBUTION WIDTH 16.1 % (11.5-14.5); WHITE BLOOD COUNT 4.6 K/uL (4.8-10.8)
[2016-03-19 09:29] LABS: URINE BILIRUBIN NEGATIVE (NEGATIVE); URINE BLOOD NEGATIVE (NEGATIVE); URINE CLARITY Clear (Clear); URINE COLOR Yellow (YELLOW); URINE GLUCOSE (UA) NORMAL (Normal); URINE LEUKOCYTE ESTERASE NEG Leu/uL (Negative); URINE NITRATE NEGATIVE (NEGATIVE); URINE PROTEIN NEGATIVE (NEGATIVE); URINE UROBILINOGEN NORMAL mg/dL (0.2-1.0)
--- NOTE | 2016-03-19 09:48 | CT ---
PROCEDURE: CT Chest without contrast HISTORY: lung opacity COMPARISON: 01/14/2016 TECHNIQUE: Contiguous axial images were obtained through the chest without intravenous contrast enhancement. Sagittal and coronal reconstructions were performed. Limited evaluation due to suboptimal positioning. Soft tissue structures are suboptimally evaluated due to lack of intravenous contrast. Radiation dose (DLP): 538.27 mGy-cm. FINDINGS: LUNGS: Soft tissue density is seen involving the prevascular space anterior to aortic arch. This is of unclear clinical significance. This could represent tortuous brachiocephalic vessels. No airspace opacity identified. Mild atelectatic changes in the lung bases. MEDIASTINUM: Ectatic ascending aorta. The ascending aorta measures approximately 4.3 centimeters. The heart is mildly enlarged. There is no significant pericardial effusion. Coronary arterial calcifications noted. Main pulmonary artery unremarkable. No vascular congestion. Hilar lymphadenopathy suboptimally evaluated due to lack intravenous contrast. PLEURA: Previously identified small right-sided pleural effusion has near completely resolved. BONES: Osteopenia. Exaggerated kyphosis. Degenerative changes noted. UPPER ABDOMEN: Mild thickening of the distal esophagus with possible small hiatal hernia. Visualized portions of the spleen, both kidneys, liver appear grossly unremarkable however remain suboptimally evaluated. Possible retained oral contrast in the colon. Moderate stool burden in the visualized colon suggestive of constipation. Both adrenal glands, pancreas suboptimally seen. OTHER FINDINGS: Low-density lesion in the right thyroid lobe. Otherwise the thyroid gland appears heterogeneous. IMPRESSION: Questionable soft tissue density seen involving the prevascular space anterior to the aortic arch. This is of unclear clinical significance. This could represent tortuous brachiocephalic vessels. If indicated, contrast-enhanced study recommended. No airspace opacity seen. Mild atelectatic changes. Near complete resolution of the small right-sided pleural effusion. Ectasia of the ascending aorta. Moderate stool burden in the visualized colon suggestive of constipation. Hiatal hernia with thickening of the distal esophagus. Otherwise the upper abdomen is suboptimally evaluated. Low-density lesion in the right thyroid lobe. Dedicated ultrasound recommended.
[2016-03-19] MEDS: Azithromycin 500 MG in Sodium Chloride 0.9% 250 ML IVPB SCH (12:22)
--- NOTE | 2016-03-19 17:08 | CP.PCM.PN ---
Addendum entered and electronically signed by Tessa Molina DO 03/19/16 22: 44: f/u PSA ordered since elevated back in January2016 admission. Will monitor for urinary retention. UO today 600 cc. Original Note: <Tessa Molina - Last Filed: 03/19/16 22:29> Subjective - Date & Time of Evaluation Date of Evaluation: 03/19/16 Time of Evaluation: 12:00 - Subjective Subjective: PGY 2 Medicine Progress Note- Dr. Wiggins's service Pt seen and examined at bedside this AM. Patient complaining of 10/10 pain in his right hip.Patient states he feels like he cannot make urine properly and reports dysuria. Denies chest pain, shortness of breath, palpitations, numbness , tingling, nausea, vomiting, diarrhea, fevers or chills at this time. No acute events overnight. Bladder scan ordered. Objective - Vital Signs/Intake and Output Vital Signs (last 24 hours): Temp Pulse Resp BP Pulse Ox 98.4 F 81 20 99/61 L 97 03/19/16 15:20 03/19/16 15:20 03/19/16 15:20 03/19/16 15:20 03/19/16 15:20 Intake and Output: 03/19/16 03/19/16 06:59 18:59 Intake Total 480 Output Total 400 Balance 80 - Medications Medications: Current Medications Docusate Sodium (Colace) 100 mg PO DAILY [facility] Last Admin: 03/19/16 11:05 Dose: 100 mg Furosemide (Lasix) 40 mg PO DAILY [facility] Last Admin: 03/19/16 11:05 Dose: 40 mg Heparin Sodium (Porcine) (Heparin) 5,000 units SC Q8 [facility] Last Admin: 03/19/16 13:38 Dose: 5,000 units Ceftriaxone Sodium 1 gm/ (Sodium Chloride) 100 mls @ 200 mls/hr IVPB DAILY [facility] Last Admin: 03/19/16 11:07 Dose: 200 mls/hr Azithromycin 500 mg/ Sodium (Chloride) 250 mls @ 167 mls/hr IVPB Q24H [facility] Last Admin: 03/19/16 12:22 Dose: 167 mls/hr Vancomycin/Sodium Chloride (Vancocin) 200 mls @ 133.333 mls/hr IVPB Q24H [facility] Stop: 03/23/16 19:01 Last Admin: 03/18/16 19:28 Dose: 133.333 mls/hr Tramadol HCl (Ultram) 25 mg PO Q6H PRN PRN Reason: Pain, Mild (1-3) Last Admin: 03/18/16 22:24 Dose: 25 mg Vitamin A (Vitamin A & D Oint Ud Foilpak) 1 ea TOP Q8H [facility] Last Admin: 03/19/16 13:40 Dose: 1 ea - Labs Labs: 03/19/16 08:52 03/19/16 08:52 - Constitutional Appears: No Acute Distress - Head Exam Head Exam: NORMAL INSPECTION, NORMOCEPHALIC - Eye Exam Eye Exam: EOMI, Normal appearance - ENT Exam ENT Exam: Mucous Membranes Moist - Neck Exam Neck Exam: Normal Inspection - Respiratory Exam Respiratory Exam: Clear to Ausculation Bilateral. absent: Rales, Rhonchi - Cardiovascular Exam Cardiovascular Exam: REGULAR RHYTHM, +S1, +S2 - GI/Abdominal Exam GI & Abdominal Exam: Soft, Tenderness (suprapubic). absent: Distended - Extremities Exam Extremities Exam: Normal Inspection. absent: Pedal Edema - Neurological Exam Neurological Exam: Alert, Awake, Oriented x3 - Psychiatric Exam Psychiatric exam: Normal Affect, Normal Mood - Skin Additional comments: stage 2 pressure ulcer right lower buttock Assessment and Plan - Assessment and Plan (Free Text) Assessment: UTI Assessment and Plan: Patient with suprapubic pain and dysuria UA with RBCs and WBCs noted Urine Cx gram positive for E. faecalis, sensitive to vanco. Vanco IVPB - started 03/18/16 (Day 2) Continue Azithromycin (Day 3) and Rocephin IVPB (Day 9) Repeat UA negative 03/18/16. f/u repeat Urine Cx Abdominal Pain Assessment and Plan: f/u repeat abd/pelv CT ordered 03/19/16 Possibly secondary to UTI. See plan above. CT of abd and pelvis- Partial results available- hiatal hernia with airspace disease at lung bases. Need to follow up full report. Per 03/07 admission at [facility]: Abdomen of CT and pelvis showed fecal impaction as well as non obstructing left inguinal hernia containing small bowel. Refer to full report. On Colace. Monitor Abnormal Chest X-Ray Assessment and Plan: 03/19: Consider contrast enhanced chest CT based on CT finidings below. Chest CT ordered 03/17/16 showed questionable soft tissue density seen involving the prevascular space anterior to the aortic arch. This is of unclear clinical significance. This could represent tortuous brachiocephalic vessels. If indicated, contrast-enhanced study recommended. No airspace opacity seen. Mild atelectatic changes. Ectasia of the ascending aorta. constipation. Hiatal hernia with thickening of the distal esophagus. Otherwise the upper abdomen is suboptimally evaluated. Low-density lesion in the right thyroid lobe. Dedicated ultrasound recommended. Repeat Chest Xray 03/17/16 - right upper lobe opacity in the previous exam is not seen in the current study. Chest Xray 03/17/16 Right upper lobe opacity Sacral decub Wound care following -Recommending medihoney covered with bordered telfa dressing to right lower buttocks stage 2 pressure ulcer daily. MUST REPOSITION FREQUENTLY TO OPTIMIZE OFFLOADING OF ALL PRESSURE POINTS. PATIENT CONTINUES TO BE AT RISK FOR SKIN BREAKDOWN. Order placed for turning patient Q2H Leg edema Assessment and Plan: 40mg PO Lasix daily Venous dopplers performed on 03/07 admission- No signs of DVT Tramadol 25mg q6h for pain Status: Acute Anemia Assessment and Plan: Stable, likely Anemia of chronic disease and iron deficiency secondary to poor nutrition intake Patient has had extensive workup within the last admission at [facility] in January 2016 Counseled patient on F/U in outpatient clinic after d/c for management care Status: Chronic Gait instability Assessment and Plan: Per Ortho: No acute fracture noted on imaging. No acute ortho intervention at this time. Pt can follow up outpatient. PT/OT recommendations. Pt will be counseled on following up with appointments. Patient non weight bearing at this time Hip/Pelvis XRAY: s/p right hip arthroplasty. Suspicious for displacement or migration of prosthesis superiorly. Heterogenous sclerotic changes at right pelvic bones of uncertain etiology. 03/12/2016 checking imaging of the lower extremity PT eval- patient needs maximum assist and is thus unsafe for discharge now. Will need more physical therapy. Fall risk precaution noted Status: Acute Hx of Aortic aneursym Assessment and Plan: Currently 4.5cm Patient needs repeat CT imaging every 6 months Patient should obtain repeat imaging in July 2016 to assess size Status: Chronic Poor nutrition Assessment and Plan: Patient appears malnourished, though eats quite well B12 and Folate levels WNL Ensure Enlive TID.- Added on with meals. Prophylactic measure Assessment and Plan: Heparin 5000 units q8h A and D ointment to apply to [facility] Case management referral- Patient is homeless. PT/OT Out of bed with continued Physical therapy. Continue to monitor <RosalieSangeeta thompsonn Ahmet - Last Filed: 03/27/16 17:23> Objective - Vital Signs/Intake and Output Vital Signs (last 24 hours): Temp Pulse Resp BP Pulse Ox 97.8 F 78 20 115/69 99 03/27/16 07:42 03/27/16 07:42 03/27/16 07:42 03/27/16 07:42 03/27/16 07:42 Intake and Output: 03/27/16 03/27/16 06:59 18:59 Intake Total 200 790 Output Total 600 650 Balance -400 140 - Medications Medications: Current Medications Docusate Sodium (Colace) 100 mg PO DAILY [facility] Last Admin: 03/27/16 11:08 Dose: Not Given Ferric Sodium Gluconate Complex (Ferrlecit) 125 mg IVPB DAILY [facility] Stop: 03/30/16 10:01 Last Admin: 03/27/16 11:08 Dose: 125 mg Heparin Sodium (Porcine) (Heparin) 5,000 units SC Q8 [facility] Last Admin: 03/27/16 14:44 Dose: 5,000 units Polyethylene Glycol (Miralax) 17 gm PO BID [facility] Last Admin: 03/27/16 11:09 Dose: Not Given Tramadol HCl (Ultram) 25 mg PO Q6H PRN PRN Reason: Pain, Mild (1-3) Last Admin: 03/27/16 11:37 Dose: 25 mg Vitamin A (Vitamin A & D Oint Ud Foilpak) 1 ea TOP Q8H [facility] Last Admin: 03/27/16 11:09 Dose: 1 ea - Labs Labs: 03/27/16 06:40 03/27/16 06:40 Attending/Attestation - Attestation I have personally seen and examined this patient.: Yes I have fully participated in the care of the patient.: Yes I have reviewed all pertinent clinical information, including history, physical exam and plan: Yes Notes (Text): 03/27/16 17:22 Patient was seen and examined at bedside with the resident 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
[2016-03-19] MEDS: Vancomycin 1 gm/NS 200 ml 200 ML IVPB SCH (18:39)
[2016-03-20] MEDS: Vitamins A & D Oint UD Foilpak TOP SCH ×3 (06:09→17:00)
[2016-03-20 07:54] LABS: BASO % 0.8 % (0.0-2.0); EOS # 0.1 K/uL (0.0-0.7); EOS % 2.7 % (0.0-4.0); HEMOGLOBIN 10.3 g/dL (12.0-18.0); LYMPH # 1.4 K/uL (1.0-4.3); LYMPH % 31.2 % (20.0-40.0); MEAN CELL VOLUME 87.4 fL (80.0-94.0); MEAN CORPUSCULAR HEMOGLOBIN 29.7 pg (27.0-31.0); MEAN PLATELET VOLUME 7.4 fL (7.2-11.7); MONO # 0.5 K/uL (0.0-0.8); MONO % 11.2 % (0.0-10.0); NEUT # 2.4 K/uL (1.8-7.0); NEUT % 54.1 % (50.0-75.0); NRBC % 0.1 % (0.0-2.0); RBC 3.47 Mil/uL (4.40-5.90); RED CELL DISTRIBUTION WIDTH 15.6 % (11.5-14.5); WHITE BLOOD COUNT 4.4 K/uL (4.8-10.8)
[2016-03-20 08:01] LABS: ALBUMIN 3.1 g/dL (3.5-5.0)
[2016-03-20 08:04] LABS: ALB/GLOB RATIO 0.7 (1.0-2.1); AST/SGOT 20 U/L (17-59); BLOOD UREA NITROGEN 19 mg/dL (9-20); GFR AFRICAN-AMERICAN > 60; GFR NON-AFRICAN AMERICAN > 60
[2016-03-20 08:05] LABS: ALT/SGPT 31 U/L (21-72); CALCIUM 8.9 mg/dl (8.6-10.4); MAGNESIUM 1.7 mg/dL (1.6-2.3)
--- NOTE | 2016-03-20 10:41 | CP.PCM.PN ---
<JazmyneLyjan - Last Filed: 03/20/16 18:26> Subjective - Date & Time of Evaluation Date of Evaluation: 03/20/16 Time of Evaluation: 07:55 - Subjective Subjective: PGY-1 Medicine Note - Dr. Santo's service Pt seen and examined in no acute distress. Pt states that he has suprapubic pain and right LE hip pain. Per Physical therapy, patient still non-weight bearing and needs to practice using walker. Objective - Vital Signs/Intake and Output Vital Signs (last 24 hours): Temp Pulse Resp BP Pulse Ox 98.1 F 79 20 125/71 99 03/20/16 08:23 03/20/16 08:23 03/20/16 08:23 03/20/16 08:23 03/20/16 08:23 Intake and Output: 03/20/16 03/20/16 06:59 18:59 Intake Total 490 Balance 490 - Medications Medications: Current Medications Docusate Sodium (Colace) 100 mg PO DAILY [facility] Last Admin: 03/19/16 11:05 Dose: 100 mg Furosemide (Lasix) 40 mg PO DAILY [facility] Last Admin: 03/19/16 11:05 Dose: 40 mg Heparin Sodium (Porcine) (Heparin) 5,000 units SC Q8 [facility] Last Admin: 03/20/16 06:08 Dose: 5,000 units Ceftriaxone Sodium 1 gm/ (Sodium Chloride) 100 mls @ 200 mls/hr IVPB DAILY [facility] Last Admin: 03/19/16 11:07 Dose: 200 mls/hr Azithromycin 500 mg/ Sodium (Chloride) 250 mls @ 167 mls/hr IVPB Q24H [facility] Last Admin: 03/19/16 12:22 Dose: 167 mls/hr Vancomycin/Sodium Chloride (Vancocin) 200 mls @ 133.333 mls/hr IVPB Q24H [facility] Stop: 03/23/16 19:01 Last Admin: 03/19/16 18:39 Dose: 133.333 mls/hr Tramadol HCl (Ultram) 25 mg PO Q6H PRN PRN Reason: Pain, Mild (1-3) Last Admin: 03/18/16 22:24 Dose: 25 mg Vitamin A (Vitamin A & D Oint Ud Foilpak) 1 ea TOP Q8H [facility] Last Admin: 03/20/16 06:09 Dose: 1 ea - Labs Labs: 03/20/16 07:41 03/20/16 07:41 - Constitutional Appears: Non-toxic, No Acute Distress - Head Exam Head Exam: ATRAUMATIC, NORMAL INSPECTION, NORMOCEPHALIC - Eye Exam Eye Exam: EOMI, Normal appearance, PERRL Pupil Exam: NORMAL ACCOMODATION, PERRL - ENT Exam ENT Exam: Mucous Membranes Moist - Neck Exam Neck Exam: Full ROM - Respiratory Exam Respiratory Exam: Clear to Ausculation Bilateral, NORMAL BREATHING PATTERN. absent: Wheezes - Cardiovascular Exam Cardiovascular Exam: REGULAR RHYTHM, +S1, +S2 - GI/Abdominal Exam GI & Abdominal Exam: Soft, Normal Bowel Sounds - Extremities Exam Extremities Exam: Full ROM, Normal Capillary Refill - Back Exam Back Exam: Full ROM, NORMAL INSPECTION - Neurological Exam Neurological Exam: Alert, Awake, Oriented x3 - Psychiatric Exam Psychiatric exam: Normal Affect, Normal Mood - Skin Skin Exam: Dry, Normal Color, Warm Assessment and Plan - Assessment and Plan (Free Text) Assessment: UTI Assessment and Plan: Patient with suprapubic pain and dysuria UA with RBCs and WBCs noted 03/14/16 Urine Cx gram positive for E. faecalis, sensitive to vanco however Urine culture 03/18 no growth. Vanco IVPB - started 03/18/16 (Day 2). Vanc Trough 5.7. Will assess length of abx since negative urine cultures. Repeat UA negative 03/18/16. Repeat Urine Cx negative F/U bladder scans PRN F/U PSA Abdominal Pain Assessment and Plan: f/u repeat abd/pelv CT ordered 03/19/16 CT of abd and pelvis- Partial results available- hiatal hernia with airspace disease at lung bases. Need to follow up full report. Per 03/07 admission at [facility]: Abdomen of CT and pelvis showed fecal impaction as well as non obstructing left inguinal hernia containing small bowel. Refer to full report. On Colace. Monitor Abnormal Chest X-Ray Assessment and Plan: 03/19: Consider contrast enhanced chest CT based on CT finidings below. Chest CT ordered 03/17/16 showed questionable soft tissue density seen involving the prevascular space anterior to the aortic arch. This is of unclear clinical significance. This could represent tortuous brachiocephalic vessels. If indicated, contrast-enhanced study recommended. No airspace opacity seen. Mild atelectatic changes. Ectasia of the ascending aorta. constipation. Hiatal hernia with thickening of the distal esophagus. Otherwise the upper abdomen is suboptimally evaluated. Low-density lesion in the right thyroid lobe. Dedicated ultrasound recommended. Repeat Chest Xray 03/17/16 - right upper lobe opacity in the previous exam is not seen in the current study. Chest Xray 03/17/16 Right upper lobe opacity Sacral decub Assessment and Plan: Wound care following -Recommending medihoney covered with bordered telfa dressing to right lower buttocks stage 2 pressure ulcer daily. MUST REPOSITION FREQUENTLY TO OPTIMIZE OFFLOADING OF ALL PRESSURE POINTS. PATIENT CONTINUES TO BE AT RISK FOR SKIN BREAKDOWN. Order placed for turning patient Q2H Wedge pillow to be placed by nursing to offload pressure off of sacrum Leg edema Assessment and Plan: 40mg PO Lasix daily Venous dopplers performed on 03/07 admission- No signs of DVT Tramadol 25mg Q6H for pain Status: Acute Anemia Assessment and Plan: Stable, likely Anemia of chronic disease and iron deficiency secondary to poor nutrition intake Patient has had extensive workup within the last admission at [facility] in January 2016 Counseled patient on F/U in outpatient clinic after d/c for management care Status: Chronic Gait instability Assessment and Plan: Per Ortho: No acute fracture noted on imaging. No acute ortho intervention at this time. Pt can follow up outpatient. PT/OT recommendations. Pt will be counseled on following up with appointments. Patient non weight bearing at this time Hip/Pelvis XRAY: s/p right hip arthroplasty. Suspicious for displacement or migration of prosthesis superiorly. Heterogenous sclerotic changes at right pelvic bones of uncertain etiology. 03/12/2016 checking imaging of the lower extremity PT eval- patient needs maximum assist and is thus unsafe for discharge now. Will need more physical therapy. Fall risk precaution noted Status: Acute Hx of Aortic aneursym Assessment and Plan: Currently 4.5cm Patient needs repeat CT imaging every 6 months Patient should obtain repeat imaging in July 2016 to assess size Status: Chronic Poor nutrition Assessment and Plan: Patient appears malnourished, though eats quite well B12 and Folate levels WNL Ensure Enlive TID.- Added on with meals. Prophylactic measure Assessment and Plan: Heparin 5000 units q8h A and D ointment to apply to [facility] Social [facility]- Patient is homeless. Will follow up to see which services are available. Out of bed with continued Physical therapy Pt still non weight bearing. Will require a wedge pillow to relieve pressure off of sacral wound. Continue to monitor <Lionel Santo - Last Filed: 05/04/16 08:12> Objective - Vital Signs/Intake and Output Vital Signs (last 24 hours): Temp Pulse Resp BP Pulse Ox 98.4 F 68 20 115/68 98 05/04/16 00:00 05/04/16 00:00 05/04/16 00:00 05/04/16 00:00 05/04/16 00:00 Intake and Output: 05/04/16 05/04/16 06:59 18:59 Intake Total 2550 Output Total 1050 Balance 1500 - Medications Medications: Current Medications Acetaminophen (Tylenol 325mg Tab) 650 mg PO Q6 [facility] Last Admin: 05/04/16 06:35 Dose: 650 mg Bisacodyl (Dulcolax) 5 mg PO Q3D [facility] Last Admin: 05/02/16 17:47 Dose: 5 mg Clotrimazole (Lotrimin 1%) 0 gm TOP BID [facility] Last Admin: 05/03/16 17:23 Dose: 1 applic Docusate Sodium (Colace) 100 mg PO BID [facility] Last Admin: 05/03/16 17:21 Dose: 100 mg Enoxaparin Sodium (Lovenox) 40 mg SC DAILY [facility] Last Admin: 05/03/16 10:46 Dose: 40 mg Famotidine (Pepcid) 20 mg PO BID [facility] Last Admin: 05/03/16 17:21 Dose: 20 mg Finasteride (Proscar) 5 mg PO DAILY [facility] Last Admin: 05/03/16 10:48 Dose: 5 mg Sodium Chloride (Sodium Chloride 0.9%) 1,000 mls @ 125 mls/hr IV .Q8H [facility] Last Admin: 05/04/16 06:38 Dose: 125 mls/hr Ceftriaxone Sodium 1 gm/ (Sodium Chloride) 100 mls @ 100 mls/hr IVPB DAILY@ 1200 [facility] Last Admin: 05/03/16 14:27 Dose: 100 mls/hr Phenazopyridine HCl (Pyridium) 200 mg PO TIDPC [facility] Last Admin: 05/03/16 17:21 Dose: 200 mg Polyethylene Glycol (Miralax) 17 gm PO DAILY [facility] Last Admin: 05/03/16 10:52 Dose: Not Given Tamsulosin HCl (Flomax) 0.8 mg PO DAILY [facility] Last Admin: 05/03/16 10:46 Dose: 0.8 mg Vitamin A (Vitamin A & D Oint Ud Foilpak) 1 ea TOP Q8H [facility] Last Admin: 05/04/16 01:47 Dose: 1 ea - Labs Labs: 05/01/16 08:22 05/01/16 08:22 Attending/Attestation - Attestation I have personally seen and examined this patient.: Yes I have fully participated in the care of the patient.: Yes I have reviewed all pertinent clinical information, including history, physical exam and plan: Yes Notes (Text): Homeless patient with previous R hip arthroplasty, now with acetabular protrusion; Per ortho, no surgical intervention; needs to be non-weight bearing on R; Being treated for Enterococcus UTI, on vanco.
--- NOTE | 2016-03-20 11:14 | CP.PCM.PN ---
Subjective - Date & Time of Evaluation Date of Evaluation: 03/20/16 Time of Evaluation: 09:00 - Subjective Subjective: Patient complaining of right hip pain. He was only able to tolerate standing for a short period of time last PT session. Objective - Vital Signs/Intake and Output Vital Signs (last 24 hours): Temp Pulse Resp BP Pulse Ox 98.1 F 79 20 125/71 99 03/20/16 08:23 03/20/16 08:23 03/20/16 08:23 03/20/16 08:23 03/20/16 08:23 Intake and Output: 03/20/16 03/20/16 06:59 18:59 Intake Total 490 Balance 490 - Medications Medications: Current Medications Docusate Sodium (Colace) 100 mg PO DAILY [facility] Last Admin: 03/19/16 11:05 Dose: 100 mg Furosemide (Lasix) 40 mg PO DAILY [facility] Last Admin: 03/19/16 11:05 Dose: 40 mg Heparin Sodium (Porcine) (Heparin) 5,000 units SC Q8 [facility] Last Admin: 03/20/16 06:08 Dose: 5,000 units Ceftriaxone Sodium 1 gm/ (Sodium Chloride) 100 mls @ 200 mls/hr IVPB DAILY [facility] Last Admin: 03/19/16 11:07 Dose: 200 mls/hr Azithromycin 500 mg/ Sodium (Chloride) 250 mls @ 167 mls/hr IVPB Q24H [facility] Last Admin: 03/19/16 12:22 Dose: 167 mls/hr Vancomycin/Sodium Chloride (Vancocin) 200 mls @ 133.333 mls/hr IVPB Q24H [facility] Stop: 03/23/16 19:01 Last Admin: 03/19/16 18:39 Dose: 133.333 mls/hr Tramadol HCl (Ultram) 25 mg PO Q6H PRN PRN Reason: Pain, Mild (1-3) Last Admin: 03/18/16 22:24 Dose: 25 mg Vitamin A (Vitamin A & D Oint Ud Foilpak) 1 ea TOP Q8H [facility] Last Admin: 03/20/16 06:09 Dose: 1 ea - Labs Labs: 03/20/16 07:41 03/20/16 07:41 - Extremities Exam Additional comments: Limited painful ROM right hip. Poor in bed mobility. NVID, dry skin. +ROM ankle/ toes, calves soft NT neg homans Assessment and Plan (1) Acetabular protrusion Assessment & Plan: s/p hemiarthroplasty no orthopedic intervention during this admission patient needs extensive PT for deconditioning patient to f/u as outpatient VTE proph encourage OOB d/w Dr. Pino, agrees with above Status: Acute
[2016-03-20] MEDS: Azithromycin 500 MG in Sodium Chloride 0.9% 250 ML IVPB SCH (12:10)
[2016-03-20] MEDS ORDERED: Iohexol 240 (50 ml) PO ONE (13:15)
[2016-03-20] MEDS: Tramadol 25 mg PO PRN (13:23)
[2016-03-20] MEDS ORDERED: Iohexol 350mg/ml 100 ML ONE (16:48)
[2016-03-20 20:50] LABS: TOTAL PSA 5.5 ng/mL (<=4.0)
[2016-03-20] MEDS: Vancomycin 1 gm/NS 200 ml 200 ML IVPB SCH (21:31)
[2016-03-21] MEDS: Vitamins A & D Oint UD Foilpak TOP SCH ×3 (00:07→18:25)
[2016-03-21] MEDS: Tramadol 25 mg PO PRN ×2 (01:52→12:00)
[2016-03-21 06:50] LABS: ALBUMIN 3.3 g/dL (3.5-5.0); BASO # 0.1 K/uL (0.0-0.2); BASO % 1.1 % (0.0-2.0); EOS # 0.2 K/uL (0.0-0.7); EOS % 2.8 % (0.0-4.0); LYMPH # 1.9 K/uL (1.0-4.3); LYMPH % 34.3 % (20.0-40.0); MEAN CELL VOLUME 87.8 fL (80.0-94.0); MEAN CORPUSCULAR HEMOGLOBIN 29.2 pg (27.0-31.0); MEAN CORPUSCULAR HGB CONC 33.3 g/dL (33.0-37.0); MEAN PLATELET VOLUME 7.3 fL (7.2-11.7); MONO # 0.6 K/uL (0.0-0.8); MONO % 10.1 % (0.0-10.0); NEUT # 2.9 K/uL (1.8-7.0); NEUT % 51.7 % (50.0-75.0); NRBC % 0.1 % (0.0-2.0); RBC 3.41 Mil/uL (4.40-5.90); RED CELL DISTRIBUTION WIDTH 15.8 % (11.5-14.5); WHITE BLOOD COUNT 5.6 K/uL (4.8-10.8)
[2016-03-21 06:53] LABS: ALB/GLOB RATIO 0.8 (1.0-2.1); ALT/SGPT 31 U/L (21-72); AST/SGOT 29 U/L (17-59); BLOOD UREA NITROGEN 18 mg/dL (9-20); GFR AFRICAN-AMERICAN > 60; GFR NON-AFRICAN AMERICAN > 60
[2016-03-21 06:54] LABS: CALCIUM 8.8 mg/dl (8.6-10.4); MAGNESIUM 1.7 mg/dL (1.6-2.3)
[2016-03-21] MEDS: Vancomycin 1 gm/NS 200 ml 200 ML IVPB SCH ×2 (11:01→22:07)
--- NOTE | 2016-03-21 11:42 | CP.PCM.PN ---
<Shabana Samano - Last Filed: 03/21/16 18:24> Subjective - Date & Time of Evaluation Date of Evaluation: 03/21/16 Time of Evaluation: 06:02 - Subjective Subjective: PGY 1 Medicine Note- Dr. Santo's service Pt seen and examined in no acute distress. Pt states that he has right LE hip pain as well as diffuse pain all over. Patient is not too specific as to where his pain is concentrated. A complete ROS was not fully obtained at this time because patient could not be consoled. Objective - Vital Signs/Intake and Output Vital Signs (last 24 hours): Temp Pulse Resp BP Pulse Ox 98.2 F 71 20 111/62 99 03/21/16 08:00 03/21/16 08:00 03/21/16 08:00 03/21/16 08:00 03/21/16 08:00 Intake and Output: 03/21/16 03/21/16 06:59 18:59 Intake Total 650 Output Total 1300 Balance -650 - Medications Medications: Current Medications Docusate Sodium (Colace) 100 mg PO DAILY [facility] Last Admin: 03/20/16 11:50 Dose: 100 mg Heparin Sodium (Porcine) (Heparin) 5,000 units SC Q8 [facility] Last Admin: 03/21/16 06:25 Dose: 5,000 units Azithromycin 500 mg/ Sodium (Chloride) 250 mls @ 167 mls/hr IVPB Q24H [facility] Last Admin: 03/20/16 12:10 Dose: 167 mls/hr Vancomycin/Sodium Chloride (Vancocin) 200 mls @ 133.333 mls/hr IVPB Q12H [facility] Stop: 03/25/16 21:01 Last Admin: 03/20/16 21:31 Dose: 133.333 mls/hr Tramadol HCl (Ultram) 25 mg PO Q6H PRN PRN Reason: Pain, Mild (1-3) Last Admin: 03/21/16 01:52 Dose: 25 mg Vitamin A (Vitamin A & D Oint Ud Foilpak) 1 ea TOP Q8H [facility] Last Admin: 03/21/16 00:07 Dose: 1 ea - Labs Labs: 03/21/16 06:34 03/21/16 06:34 - Constitutional Appears: Non-toxic, No Acute Distress - Head Exam Head Exam: ATRAUMATIC, NORMAL INSPECTION, NORMOCEPHALIC - Eye Exam Eye Exam: EOMI, Normal appearance, PERRL Pupil Exam: NORMAL ACCOMODATION, PERRL - ENT Exam ENT Exam: Mucous Membranes Moist - Neck Exam Neck Exam: Full ROM, Normal Inspection - Respiratory Exam Respiratory Exam: Clear to Ausculation Bilateral, NORMAL BREATHING PATTERN. absent: Wheezes - Cardiovascular Exam Cardiovascular Exam: REGULAR RHYTHM, +S1, +S2 - GI/Abdominal Exam GI & Abdominal Exam: Soft, Tenderness (intermittently responsive with godinez of stethoscope vs hand palpation), Normal Bowel Sounds - Exam Exam: NORMAL INSPECTION - Extremities Exam Extremities Exam: Full ROM, Normal Capillary Refill - Back Exam Back Exam: Full ROM, NORMAL INSPECTION - Neurological Exam Neurological Exam: Alert, Awake, CN II-XII Intact, Oriented x3 - Psychiatric Exam Psychiatric exam: Depressed, Flat Affect - Skin Skin Exam: Dry, Normal Color, Warm Additional comments: 1 cm diameter skin ulceration inferior to right buttock cheek Assessment and Plan - Assessment and Plan (Free Text) Assessment: UTI Assessment and Plan: Patient with suprapubic pain and dysuria UA with RBCs and WBCs noted 03/14/16 Urine Cx gram positive for E. faecalis, sensitive to vanco however Urine culture 03/18 no growth. Vanco IVPB - started 03/18/16 (Day 3). Vanc Trough 5.7. so dosage increased to Q12. Repeat UA negative 03/18/16. Repeat Urine Cx negative F/U bladder scans PRN PSA readings abnormal.- F/U reccs. On prior admission, recommendations were made for possible biopsy with outpatient management however patient was unable to follow up. Patient to be counseled on follow up management. Abdominal Pain Assessment and Plan: f/u repeat abd/pelv CT ordered 03/19/16 . ( Of note- records in [facility] system are for incorrect patient. F/U) CT of abd and pelvis- Partial results available- hiatal hernia with airspace disease at lung bases. Need to follow up full report. Per 03/07 admission at [facility]: Abdomen of CT and pelvis showed fecal impaction as well as non obstructing left inguinal hernia containing small bowel. Refer to full report. On Colace. Monitor Abnormal Chest X-Ray Assessment and Plan: 03/19: Consider contrast enhanced chest CT based on CT findings below. F/U Ct imaging. Chest CT ordered 03/17/16 showed questionable soft tissue density seen involving the prevascular space anterior to the aortic arch. This is of unclear clinical significance. This could represent tortuous brachiocephalic vessels. If indicated, contrast-enhanced study recommended. No airspace opacity seen. Mild atelectatic changes. Ectasia of the ascending aorta. constipation. Hiatal hernia with thickening of the distal esophagus. Otherwise the upper abdomen is suboptimally evaluated. Low-density lesion in the right thyroid lobe. Dedicated ultrasound recommended. Repeat Chest Xray 03/17/16 - right upper lobe opacity in the previous exam is not seen in the current study. Chest Xray 03/17/16 Right upper lobe opacity Sacral decub Assessment and Plan: Wound care following -Recommending medihoney covered with bordered telfa dressing to right lower buttocks stage 2 pressure ulcer daily. MUST REPOSITION FREQUENTLY TO OPTIMIZE OFFLOADING OF ALL PRESSURE POINTS. PATIENT CONTINUES TO BE AT RISK FOR SKIN BREAKDOWN. Order placed for turning patient Q2H Wedge pillow placed by nursing to offload pressure off of sacrum Leg edema Assessment and Plan: 40mg PO Lasix daily Venous dopplers performed on 03/07 admission- No signs of DVT Tramadol 25mg Q6H for pain Status: Acute Anemia Assessment and Plan: Hx of anemia on prior admission. F/U Iron studies Status: Chronic Gait instability Assessment and Plan: Per Ortho: No acute fracture noted on imaging. No acute ortho intervention at this time. Pt can follow up outpatient. PT/OT recommendations. Pt will be counseled on following up with appointments. Patient non weight bearing at this time Hip/Pelvis XRAY: s/p right hip arthroplasty. Suspicious for displacement or migration of prosthesis superiorly. Heterogenous sclerotic changes at right pelvic bones of uncertain etiology. 03/12/2016 checking imaging of the lower extremity PT eval- patient needs maximum assist and is thus unsafe for discharge now. Will need more physical therapy. Fall risk precaution noted Status: Acute Hx of Aortic aneursym Assessment and Plan: Currently 4.5cm Patient needs repeat CT imaging every 6 months Patient should obtain repeat imaging in July 2016 to assess size Status: Chronic Poor nutrition Assessment and Plan: Patient appears malnourished, though eats quite well B12 and Folate levels WNL Ensure Enlive TID.- Added on with meals. Prophylactic measure Assessment and Plan: Heparin 5000 units q8h A and D ointment to apply to [facility] Social [facility]- Patient is homeless. Will follow up to see which services are available. Out of bed with continued Physical therapy. Pt still non weight bearing ( RLE) with use of a walker. Use of a wedge pillow to relieve pressure off of sacral wound. Continue to monitor <Lionel Santo - Last Filed: 05/04/16 08:43> Objective - Vital Signs/Intake and Output Vital Signs (last 24 hours): Temp Pulse Resp BP Pulse Ox 98.0 F 74 20 113/60 96 05/04/16 08:13 05/04/16 08:13 05/04/16 08:13 05/04/16 08:13 05/04/16 08:13 Intake and Output: 05/04/16 05/04/16 06:59 18:59 Intake Total 2550 Output Total 1050 Balance 1500 - Medications Medications: Current Medications Acetaminophen (Tylenol 325mg Tab) 650 mg PO Q6 [facility] Last Admin: 05/04/16 06:35 Dose: 650 mg Bisacodyl (Dulcolax) 5 mg PO Q3D [facility] Last Admin: 05/02/16 17:47 Dose: 5 mg Clotrimazole (Lotrimin 1%) 0 gm TOP BID [facility] Last Admin: 05/03/16 17:23 Dose: 1 applic Docusate Sodium (Colace) 100 mg PO BID [facility] Last Admin: 05/03/16 17:21 Dose: 100 mg Enoxaparin Sodium (Lovenox) 40 mg SC DAILY [facility] Last Admin: 05/03/16 10:46 Dose: 40 mg Famotidine (Pepcid) 20 mg PO BID [facility] Last Admin: 05/03/16 17:21 Dose: 20 mg Finasteride (Proscar) 5 mg PO DAILY [facility] Last Admin: 05/03/16 10:48 Dose: 5 mg Sodium Chloride (Sodium Chloride 0.9%) 1,000 mls @ 125 mls/hr IV .Q8H [facility] Last Admin: 05/04/16 06:38 Dose: 125 mls/hr Ceftriaxone Sodium 1 gm/ (Sodium Chloride) 100 mls @ 100 mls/hr IVPB DAILY@ 1200 [facility] Last Admin: 05/03/16 14:27 Dose: 100 mls/hr Phenazopyridine HCl (Pyridium) 200 mg PO TIDPC [facility] Last Admin: 05/03/16 17:21 Dose: 200 mg Polyethylene Glycol (Miralax) 17 gm PO DAILY [facility] Last Admin: 05/03/16 10:52 Dose: Not Given Tamsulosin HCl (Flomax) 0.8 mg PO DAILY [facility] Last Admin: 05/03/16 10:46 Dose: 0.8 mg Vitamin A (Vitamin A & D Oint Ud Foilpak) 1 ea TOP Q8H [facility] Last Admin: 05/04/16 01:47 Dose: 1 ea - Labs Labs: 05/01/16 08:22 05/01/16 08:22 Attending/Attestation - Attestation I have personally seen and examined this patient.: Yes I have fully participated in the care of the patient.: Yes I have reviewed all pertinent clinical information, including history, physical exam and plan: Yes Notes (Text): Homeless patient admitted with R acetabular protrusion involving prosthesis; needs to be completely non-weight bearing; Being treated for Enterococcus UTI with vanco; Dispo: Unclear when patient can be discharged as he has no insurance to go to [facility] and is unsafe to go to care home.
[2016-03-21] MEDS: Azithromycin 500 MG in Sodium Chloride 0.9% 250 ML IVPB SCH (12:02)
--- NOTE | 2016-03-21 13:54 | CT ---
CT scan of the chest abdomen pelvis dated 03/20/2016. History: Evaluate abnormality near the aortic arch. Contiguous helical/transaxial sections of the chest abdomen pelvis performed in standard fashion following oral and intravenous injection of approximately 100 cc of is opaque 320 contrast material. Comparison made with CT scan chest 03/19/[address] scan of the abdomen and pelvis dated 03/11/2016. Radiation dose. Total DLP = 573.94 mGy -cm. Findings: Heart size is upper limits of normal. No pericardial effusion. The ascending thoracic aorta is dilated measuring 4.54 cm in greatest dimension. Descending thoracic aorta measures approximately 2.5 cm. Measurements obtained on axial image number 61. . There is somewhat crowding and bunching of the origins and proximal great vessels due to kyphosis which accounts for previously noted soft tissue in the prevascular space Pulmonary trunk measures approximately 2.5 cm. Few small nonspecific mediastinal lymph nodes. No significant hilar adenopathy. Central airways are midline and patent. No endobronchial lesions. Small amount of air seen within the esophagus which accounts for previously described curvilinear focus of air on prior CT scan report of the chest. . Tiny hiatal hernia is felt be present. Thyroid gland is not well delineated due to crossing streak and beam hardening artifact. Mild atelectasis/ scarring changes seen in both lung bases with some minimal pleural thickening along the posterior sulci. No focal consolidation or effusion. . No evidence of pneumothorax. No parenchymal masses or nodules identified. Evaluation of the abdomen is somewhat limited due to the lack of intraperitoneal and retroperitoneal fat. In addition, the crossing streak and beam hardening artifact arising from the right upper extremity which has not been removed from the field of view limits evaluation Evaluation of the bowel is also limited due to incomplete opacification There is a large amount of stool within the colon including the rectosigmoid consistent with constipation -fecal impaction. . Note that the rectosigmoid area and remains partially obscured by significant streak and beam hardening artifact arising from a right-sided total hip replacement. The appendix is not seen with any certainty on however no definitive inflammatory process right lower quadrant of the abdomen. Small bowel poorly delineated due to of incomplete opacification. The stomach is nondistended which presumably accounts for thick-walled appearance. Gastritis not excluded. Ill-defined soft tissue in the left aspect of the abdomen just subjacent to the spleen likely represents multiple of small bowel on unopacified loops of small bowel. Loop of a bowel is present within any left inguinal hernia however no evidence of obstruction. The liver appears grossly unremarkable. No definitive hepatic mass or collection seen. The pancreas is poorly delineated. The pancreatic duct in though does appear to be visible though not significantly dilated. Gallbladder is physiologically distended. Questionable intraluminal gallbladder calculi. Spleen appears grossly unremarkable. No definitive adrenal lesion. Kidneys exhibit symmetric nephrograms. No evidence of nephrolithiasis or hydronephrosis. Urinary bladder is not well delineated due to significant streak and beam hardening artifact. Prostate gland is also partially obscured. Prostate gland does appear enlarged measuring approximately 5.6 cm in transverse dimension. No definitive evidence of free intraperitoneal air. There is a loop of partially opacified bowel in the left inguinal hernia however no obvious evidence of obstruction Chronic appearing anterior wedge deformity of the L1 segment again noted. . Right total hip replacement again noted. The right femoral head component is appropriately located within the right acetabular component. Note however that both the acetabular component along with the remaining hip arthroplasty hardware extends through the acetabular roof. Mild anasarca slightly improved from prior study. Impression: Limited study. Aneurysmal dilatation of the ascending thoracic aorta. Atelectasis and or scarring changes both lung bases left greater than right Findings consistent with constipation/fecal impaction. Small inguinal hernia containing a loop of unobstructed bowel. Improved anasarca. Right total hip replacement. The acetabular component protrudes through the right acetabular roof. .
[2016-03-21 17:54] LABS: IRON 44 ug/dL (49-181)
[2016-03-21 18:07] LABS: % IRON SATURATION 16 (20-55); TOTAL IRON BINDING CAPACITY 272 ug/dL (250-450)
[2016-03-21 20:32] LABS: TOTAL PSA 5.6 ng/mL (<=4.0)
[2016-03-22] MEDS: Vitamins A & D Oint UD Foilpak TOP SCH ×3 (01:23→16:00)
[2016-03-22] MEDS: Tramadol 25 mg PO PRN ×3 (02:57→21:53)
[2016-03-22 07:31] LABS: BASO # 0.1 K/uL (0.0-0.2); BASO % 1.4 % (0.0-2.0); EOS # 0.1 K/uL (0.0-0.7); EOS % 3.3 % (0.0-4.0); LYMPH # 1.6 K/uL (1.0-4.3); LYMPH % 37.7 % (20.0-40.0); MEAN CELL VOLUME 87.5 fL (80.0-94.0); MEAN CORPUSCULAR HGB CONC 34.3 g/dL (33.0-37.0); MEAN PLATELET VOLUME 7.3 fL (7.2-11.7); MONO # 0.4 K/uL (0.0-0.8); MONO % 9.7 % (0.0-10.0); NEUT % 47.9 % (50.0-75.0); NRBC % 0.1 % (0.0-2.0); RBC 3.32 Mil/uL (4.40-5.90); RED CELL DISTRIBUTION WIDTH 15.9 % (11.5-14.5); WHITE BLOOD COUNT 4.2 K/uL (4.8-10.8)
[2016-03-22 07:51] LABS: ALBUMIN 3.2 g/dL (3.5-5.0)
[2016-03-22 07:54] LABS: ALB/GLOB RATIO 0.8 (1.0-2.1); GFR AFRICAN-AMERICAN > 60; GFR NON-AFRICAN AMERICAN > 60
[2016-03-22 07:55] LABS: ALT/SGPT 31 U/L (21-72); AST/SGOT 29 U/L (17-59); BLOOD UREA NITROGEN 19 mg/dL (9-20); CALCIUM 8.7 mg/dl (8.6-10.4); MAGNESIUM 1.7 mg/dL (1.6-2.3)
[2016-03-22 08:23] LABS: FERRITIN 87.9 ng/mL
--- NOTE | 2016-03-22 10:46 | CP.PCM.PN ---
Addendum entered and electronically signed by Shabana Samano DO 03/22/16 14 :20: Hyponatremia Fluid restriction 1000ml Lasix DC F/U morning labs Original Note: <Shabana Samano - Last Filed: 03/22/16 13:56> Subjective - Date & Time of Evaluation Date of Evaluation: 03/22/16 Time of Evaluation: 06:11 - Subjective Subjective: PGY 1 Medicine Note- Dr. Santo's service Pt seen and examined in no acute distress. Pt states that he has pain all over. Patient repetitively states that he doesn't feel better. A complete ROS was not fully obtained at this time because patient partially complied with questions. Patient denied chest pain, headaches or palpitations; however kept repetitively stating that he was in pain all over. Objective - Vital Signs/Intake and Output Vital Signs (last 24 hours): Temp Pulse Resp BP Pulse Ox 97.4 F L 78 20 106/60 99 03/22/16 08:00 03/22/16 08:00 03/22/16 08:00 03/22/16 08:00 03/22/16 08:00 Intake and Output: 03/22/16 03/22/16 06:59 18:59 Intake Total 200 360 Output Total 600 650 Balance -400 -290 - Medications Medications: Current Medications Docusate Sodium (Colace) 100 mg PO DAILY [facility] Last Admin: 03/21/16 12:00 Dose: 100 mg Ferric Sodium Gluconate Complex (Ferrlecit) 125 mg IVPB DAILY [facility] Stop: 03/30/16 10:01 Heparin Sodium (Porcine) (Heparin) 5,000 units SC Q8 [facility] Last Admin: 03/22/16 05:59 Dose: 5,000 units Vancomycin/Sodium Chloride (Vancocin) 200 mls @ 133.333 mls/hr IVPB Q12H [facility] Stop: 03/25/16 21:01 Last Admin: 03/21/16 22:07 Dose: 133.333 mls/hr Tramadol HCl (Ultram) 25 mg PO Q6H PRN PRN Reason: Pain, Mild (1-3) Last Admin: 03/22/16 02:57 Dose: 25 mg Vitamin A (Vitamin A & D Oint Ud Foilpak) 1 ea TOP Q8H [facility] Last Admin: 03/22/16 01:23 Dose: 1 ea - Labs Labs: 03/22/16 07:09 03/22/16 07:09 - Constitutional Appears: Non-toxic, No Acute Distress - Head Exam Head Exam: ATRAUMATIC, NORMAL INSPECTION, NORMOCEPHALIC - Eye Exam Eye Exam: EOMI, Normal appearance, PERRL Pupil Exam: NORMAL ACCOMODATION, PERRL - ENT Exam ENT Exam: Mucous Membranes Moist - Neck Exam Neck Exam: Full ROM - Respiratory Exam Respiratory Exam: NORMAL BREATHING PATTERN. absent: Wheezes - Cardiovascular Exam Cardiovascular Exam: +S1, +S2 - GI/Abdominal Exam GI & Abdominal Exam: Soft, Hernia (b/l reducible), Normal Bowel Sounds. absent : Tenderness - Extremities Exam Extremities Exam: Normal Capillary Refill. absent: Full ROM, Pedal Edema, Tenderness - Back Exam Back Exam: NORMAL INSPECTION - Neurological Exam Neurological Exam: Alert, Awake, Oriented x3 - Psychiatric Exam Psychiatric exam: Normal Affect, Normal Mood - Skin Skin Exam: Dry, Warm Assessment and Plan - Assessment and Plan (Free Text) Assessment: UTI Assessment and Plan: Patient with suprapubic pain and dysuria UA with RBCs and WBCs noted 03/14/16 Urine Cx gram positive for E. faecalis, sensitive to vanco however Urine culture 03/18 no growth. Vanco IVPB - started 03/18/16 (Day 3). Vanc Trough 5.7. so dosage increased to Q12. Vanc trough on 03/22 is 14.7 Repeat UA negative 03/18/16. Repeat Urine Cx negative F/U bladder scans PRN PSA readings borderline abnormal.- On prior admission, recommendations were made for possible biopsy with outpatient management however patient was unable to follow up. Patient to be counseled on follow up management. [facility] for continued outpatient workup per phone discussion with Urologist, Dr. Hughes. Will discuss follow-up compliance with patient. Abdominal Pain Assessment and Plan: abd/pelv CT ordered 03/19/16- Results- Aneurysmal dilatation of ascending thoracic aorta; improved anasarca; atelectasis vs scarring changes of lung bases b/l with left greater than right; constipation; small inguinal hernia with unobstructed bowel loop involvement; acetabular protrusion at site of right hip replacement CT of abd and pelvis- Partial results available- hiatal hernia with airspace disease at lung bases. Need to follow up full report. Per 03/07 admission at [facility]: Abdomen of CT and pelvis showed fecal impaction as well as non obstructing left inguinal hernia containing small bowel. Refer to full report. On Colace. Monitor Abnormal Chest X-Ray Assessment and Plan: contrast enhanced chest CT findings as noted above. Chest CT ordered 03/17/16 showed questionable soft tissue density seen involving the prevascular space anterior to the aortic arch. This is of unclear clinical significance. This could represent tortuous brachiocephalic vessels. If indicated, contrast-enhanced study recommended. No airspace opacity seen. Mild atelectatic changes. Ectasia of the ascending aorta. constipation. Hiatal hernia with thickening of the distal esophagus. Otherwise the upper abdomen is suboptimally evaluated. Low-density lesion in the right thyroid lobe. Dedicated ultrasound recommended. Repeat Chest Xray 03/17/16 - right upper lobe opacity in the previous exam is not seen in the current study. Chest Xray 03/17/16 Right upper lobe opacity Sacral decub Assessment and Plan: Wound care following -Recommending medihoney covered with bordered telfa dressing to right lower buttocks stage 2 pressure ulcer daily. MUST REPOSITION FREQUENTLY TO OPTIMIZE OFFLOADING OF ALL PRESSURE POINTS. PATIENT CONTINUES TO BE AT RISK FOR SKIN BREAKDOWN. Order placed for turning patient Q2H Wedge pillow placed by nursing to offload pressure off of sacrum Leg edema Assessment and Plan: 40mg PO Lasix daily discontinued Venous dopplers performed on 03/07 admission- No signs of DVT Tramadol 25mg Q6H for pain Status: Acute Anemia Assessment and Plan: Hx of anemia on prior admission. Iron def anemia noted- On Ferrlecit daily Status: Chronic Gait instability Assessment and Plan: Per Ortho: No acute fracture noted on imaging. No acute ortho intervention at this time. Pt can follow up outpatient. PT/OT recommendations. Pt will be counseled on following up with appointments. Patient non weight bearing at this time Hip/Pelvis XRAY: s/p right hip arthroplasty. Suspicious for displacement or migration of prosthesis superiorly. Heterogenous sclerotic changes at right pelvic bones of uncertain etiology. 03/12/2016 checking imaging of the lower extremity PT eval- patient needs maximum assist and is thus unsafe for discharge now. Will need more physical therapy. Fall risk precaution noted Status: Acute Hx of Aortic aneursym Assessment and Plan: Currently 4.5cm Patient needs repeat CT imaging every 6 months Patient should obtain repeat imaging in July 2016 to assess size Status: Chronic Poor nutrition Assessment and Plan: Patient appears malnourished, though eats quite well B12 and Folate levels WNL Ensure Enlive TID.- Added on with meals. Prophylactic measure Assessment and Plan: Heparin 5000 units q8h A and D ointment to apply to [facility]- Patient is homeless. Will follow up to see which services are available. Out of bed to chair with continued Physical therapy. Pt still non weight bearing ( RLE) with use of a walker. Use of a wedge pillow to relieve pressure off of sacral wound. Continue PT Continue to monitor <Lionel Santo - Last Filed: 05/04/16 10:47> Objective - Vital Signs/Intake and Output Vital Signs (last 24 hours): Temp Pulse Resp BP Pulse Ox 98.0 F 74 20 113/60 96 05/04/16 08:13 05/04/16 08:13 05/04/16 08:13 05/04/16 08:13 05/04/16 08:13 Intake and Output: 05/04/16 05/04/16 06:59 18:59 Intake Total 2550 Output Total 1050 Balance 1500 - Medications Medications: Current Medications Acetaminophen (Tylenol 325mg Tab) 650 mg PO Q6 [facility] Last Admin: 05/04/16 06:35 Dose: 650 mg Bisacodyl (Dulcolax) 5 mg PO Q3D [facility] Last Admin: 05/02/16 17:47 Dose: 5 mg Clotrimazole (Lotrimin 1%) 0 gm TOP BID [facility] Last Admin: 05/03/16 17:23 Dose: 1 applic Docusate Sodium (Colace) 100 mg PO BID [facility] Last Admin: 05/03/16 17:21 Dose: 100 mg Enoxaparin Sodium (Lovenox) 40 mg SC DAILY [facility] Last Admin: 05/03/16 10:46 Dose: 40 mg Famotidine (Pepcid) 20 mg PO BID [facility] Last Admin: 05/03/16 17:21 Dose: 20 mg Finasteride (Proscar) 5 mg PO DAILY [facility] Last Admin: 05/03/16 10:48 Dose: 5 mg Sodium Chloride (Sodium Chloride 0.9%) 1,000 mls @ 125 mls/hr IV .Q8H [facility] Last Admin: 05/04/16 06:38 Dose: 125 mls/hr Ceftriaxone Sodium 1 gm/ (Sodium Chloride) 100 mls @ 100 mls/hr IVPB DAILY@ 1200 [facility] Last Admin: 05/03/16 14:27 Dose: 100 mls/hr Phenazopyridine HCl (Pyridium) 200 mg PO TIDPC [facility] Last Admin: 05/03/16 17:21 Dose: 200 mg Polyethylene Glycol (Miralax) 17 gm PO DAILY [facility] Last Admin: 05/03/16 10:52 Dose: Not Given Tamsulosin HCl (Flomax) 0.8 mg PO DAILY [facility] Last Admin: 05/03/16 10:46 Dose: 0.8 mg Vitamin A (Vitamin A & D Oint Ud Foilpak) 1 ea TOP Q8H [facility] Last Admin: 05/04/16 01:47 Dose: 1 ea - Labs Labs: 05/01/16 08:22 05/01/16 08:22 Attending/Attestation - Attestation I have personally seen and examined this patient.: Yes I have fully participated in the care of the patient.: Yes I have reviewed all pertinent clinical information, including history, physical exam and plan: Yes Notes (Text): Patient with R acetabular protrusion involving prosthesis, needs to be non- weight bearing; indefinite hospital course as patient is homeless and has no insurance for LAXMI; being treated for Enterococcus UTI with vanco.
[2016-03-22] MEDS: Vancomycin 1 gm/NS 200 ml 200 ML IVPB SCH ×2 (11:30→21:55)
[2016-03-22] MEDS: Ferric Sodium Gluconat Complex 62.5 mg/5 ml Vial IVPB SCH (13:00)
[2016-03-23] MEDS: Vitamins A & D Oint UD Foilpak TOP SCH ×3 (00:30→17:51)
[2016-03-23] MEDS: Tramadol 25 mg PO PRN ×2 (06:00→14:40)
[2016-03-23 07:44] LABS: BASO # 0.1 K/uL (0.0-0.2); BASO % 1.4 % (0.0-2.0); EOS # 0.1 K/uL (0.0-0.7); EOS % 2.2 % (0.0-4.0); HEMOGLOBIN 10.1 g/dL (12.0-18.0); LYMPH # 1.6 K/uL (1.0-4.3); LYMPH % 30.9 % (20.0-40.0); MEAN CELL VOLUME 87.6 fL (80.0-94.0); MEAN CORPUSCULAR HEMOGLOBIN 29.6 pg (27.0-31.0); MEAN CORPUSCULAR HGB CONC 33.8 g/dL (33.0-37.0); MEAN PLATELET VOLUME 7.5 fL (7.2-11.7); MONO # 0.6 K/uL (0.0-0.8); NEUT # 2.7 K/uL (1.8-7.0); NEUT % 53.5 % (50.0-75.0); NRBC % 0.1 % (0.0-2.0); RBC 3.42 Mil/uL (4.40-5.90); RED CELL DISTRIBUTION WIDTH 16.1 % (11.5-14.5); WHITE BLOOD COUNT 5.1 K/uL (4.8-10.8)
[2016-03-23 07:54] LABS: ALBUMIN 3.3 g/dL (3.5-5.0)
[2016-03-23 07:57] LABS: ALB/GLOB RATIO 0.7 (1.0-2.1); ALT/SGPT 29 U/L (21-72); AST/SGOT 35 U/L (17-59); BLOOD UREA NITROGEN 17 mg/dL (9-20); GFR AFRICAN-AMERICAN > 60; GFR NON-AFRICAN AMERICAN > 60
[2016-03-23 07:58] LABS: CALCIUM 8.9 mg/dl (8.6-10.4); MAGNESIUM 1.8 mg/dL (1.6-2.3)
[2016-03-23] MEDS: Vancomycin 1 gm/NS 200 ml 200 ML IVPB SCH ×2 (08:31→21:00)
--- NOTE | 2016-03-23 09:09 | CP.PCM.PN ---
<Nunu Samanosaeedjan - Last Filed: 03/23/16 12:59> Subjective - Date & Time of Evaluation Date of Evaluation: 03/23/16 Time of Evaluation: 05:59 - Subjective Subjective: PGY 1 Medicine Note- Dr. Santo's service Pt seen and examined in no acute distress. Pt states that he has pain in his right foot that comes and goes. Patient states that he is complying with physical therapy. Patient advised to ask for assistance out of bed to chair intermittently through the day. Patient admits to constipation. Patient denies subjective fevers or chills, nausea, vomiting, chest pain, palpitations, headaches or diarrhea at this time. Objective - Vital Signs/Intake and Output Vital Signs (last 24 hours): Temp Pulse Resp BP Pulse Ox 98.5 F 80 20 108/65 97 03/23/16 08:15 03/23/16 08:15 03/23/16 08:15 03/23/16 08:15 03/23/16 08:15 Intake and Output: 03/23/16 03/23/16 06:59 18:59 Intake Total 640 Output Total 1350 Balance -710 - Medications Medications: Current Medications Docusate Sodium (Colace) 100 mg PO DAILY COUNTS INCLUDE 234 BEDS AT [facility] Last Admin: 03/22/16 11:00 Dose: 100 mg Ferric Sodium Gluconate Complex (Ferrlecit) 125 mg IVPB DAILY COUNTS INCLUDE 234 BEDS AT THE [facility] Stop: 03/30/16 10:01 Last Admin: 03/22/16 13:00 Dose: 125 mg Heparin Sodium (Porcine) (Heparin) 5,000 units SC Q8 COUNTS INCLUDE 234 BEDS AT THE [facility] Last Admin: 03/23/16 06:02 Dose: 5,000 units Vancomycin/Sodium Chloride (Vancocin) 200 mls @ 133.333 mls/hr IVPB Q12H [facility] Stop: 03/25/16 21:01 Last Admin: 03/23/16 08:31 Dose: 133.333 mls/hr Tramadol HCl (Ultram) 25 mg PO Q6H PRN PRN Reason: Pain, Mild (1-3) Last Admin: 03/23/16 06:00 Dose: 25 mg Vitamin A (Vitamin A & D Oint Ud Foilpak) 1 ea TOP Q8H [facility] Last Admin: 03/23/16 08:30 Dose: 1 ea - Labs Labs: 03/23/16 07:32 03/23/16 07:32 - Constitutional Appears: Non-toxic, No Acute Distress - Head Exam Head Exam: ATRAUMATIC, NORMAL INSPECTION, NORMOCEPHALIC - Eye Exam Eye Exam: EOMI, Normal appearance, PERRL Pupil Exam: NORMAL ACCOMODATION, PERRL - ENT Exam ENT Exam: Mucous Membranes Moist - Neck Exam Neck Exam: Full ROM - Respiratory Exam Respiratory Exam: NORMAL BREATHING PATTERN. absent: Wheezes - Cardiovascular Exam Cardiovascular Exam: +S1, +S2 - GI/Abdominal Exam GI & Abdominal Exam: Soft, Hernia (reducible and bilateral), Normal Bowel Sounds. absent: Tenderness - Extremities Exam Extremities Exam: Full ROM, Normal Capillary Refill, Tenderness (right lateral surface of foot). absent: Pedal Edema - Back Exam Back Exam: Full ROM, NORMAL INSPECTION - Neurological Exam Neurological Exam: Alert, Awake, CN II-XII Intact, Oriented x3. absent: Normal Gait - Psychiatric Exam Psychiatric exam: Normal Affect, Normal Mood - Skin Skin Exam: Dry, Intact, Normal Color, Warm Assessment and Plan - Assessment and Plan (Free Text) Assessment: UTI Assessment and Plan: Improving 03/14/16 Urine Cx gram positive for E. faecalis, sensitive to vanco however Urine culture 03/18 no growth. Vanco IVPB Q12 trough on 03/22 is 14.7. (Day 07/16 for adequate coverage) Repeat UA negative 03/18/16. Repeat Urine Cx negative F/U bladder scans PRN PSA readings borderline abnormal.- On prior admission, recommendations were made for possible biopsy with outpatient management however patient was unable to follow up. Patient to be counseled on follow up management. [facility] for continued outpatient workup per phone discussion with Urologist, Dr. Hughes. Will discuss follow-up compliance with patient. Abdominal Pain Assessment and Plan: abd/pelv CT ordered 03/19/16- Results- Aneurysmal dilatation of ascending thoracic aorta; improved anasarca; atelectasis vs scarring changes of lung bases b/l with left greater than right; constipation; small inguinal hernia with unobstructed bowel loop involvement; acetabular protrusion at site of right hip replacement CT of abd and pelvis- Partial results available- hiatal hernia with airspace disease at lung bases. Need to follow up full report. Per 03/07 admission at [facility]: Abdomen of CT and pelvis showed fecal impaction as well as non obstructing left inguinal hernia containing small bowel. Refer to full report. On Colace. Begin Miralax BID Monitor Abnormal Chest X-Ray Assessment and Plan: Contrast enhanced chest CT findings as noted above. Chest CT ordered 03/17/16 showed questionable soft tissue density seen involving the prevascular space anterior to the aortic arch. This is of unclear clinical significance. This could represent tortuous brachiocephalic vessels. If indicated, contrast-enhanced study recommended. No airspace opacity seen. Mild atelectatic changes. Ectasia of the ascending aorta. constipation. Hiatal hernia with thickening of the distal esophagus. Otherwise the upper abdomen is suboptimally evaluated. Low-density lesion in the right thyroid lobe. Dedicated ultrasound recommended. Repeat Chest Xray 03/17/16 - right upper lobe opacity in the previous exam is not seen in the current study. Chest Xray 03/17/16 Right upper lobe opacity Sacral decub Assessment and Plan: Wound care following -Recommending medihoney covered with bordered telfa dressing to right lower buttocks stage 2 pressure ulcer daily. MUST REPOSITION FREQUENTLY TO OPTIMIZE OFFLOADING OF ALL PRESSURE POINTS. PATIENT CONTINUES TO BE AT RISK FOR SKIN BREAKDOWN. Order placed for turning patient Q2H Wedge pillow placed by nursing to offload pressure off of sacrum Leg edema Assessment and Plan: Resolved 40mg PO Lasix daily discontinued Venous dopplers performed on 03/07 admission- No signs of DVT Tramadol 25mg Q6H for pain Status: Acute Anemia Assessment and Plan: Stable Hx of anemia on prior admission. Iron def anemia noted- On Ferrlecit daily Status: Chronic Gait instability Assessment and Plan: Per Ortho: No acute fracture noted on imaging. No acute ortho intervention at this time. Pt can follow up outpatient. PT/OT recommendations. Pt will be counseled on following up with appointments. Patient non weight bearing at this time Hip/Pelvis XRAY: s/p right hip arthroplasty. Suspicious for displacement or migration of prosthesis superiorly. Heterogenous sclerotic changes at right pelvic bones of uncertain etiology. 03/12/2016 checking imaging of the lower extremity PT eval- patient needs maximum assist and is thus unsafe for discharge now. Will need more physical therapy. Out of bed to chair with assistance Status: Acute Hx of Aortic aneursym Assessment and Plan: Currently 4.5cm Patient needs repeat CT imaging every 6 months Patient should obtain repeat imaging in July 2016 to assess size Status: Chronic Poor nutrition Assessment and Plan: Patient appears malnourished, though eats quite well B12 and Folate levels WNL Ensure Enlive TID.- Added on with meals. Prophylactic measure Assessment and Plan: Heparin 5000 units q8h A and D ointment to apply to [facility]- Patient is homeless. Will follow up to see which services are available. Pt still non weight bearing ( RLE) with use of a walker. Patient advised to be out of bed to chair. Strongly advised for patient to be optimized for ambulation with use of a cane for discharge to [facility]. Patient still requires more physical therapy. F/U reccs Continue to monitor <Lionel Santo - Last Filed: 05/04/16 12:33> Objective - Vital Signs/Intake and Output Vital Signs (last 24 hours): Temp Pulse Resp BP Pulse Ox 98.0 F 74 20 113/60 96 05/04/16 08:13 05/04/16 08:13 05/04/16 08:13 05/04/16 08:13 05/04/16 08:13 Intake and Output: 05/04/16 05/04/16 06:59 18:59 Intake Total 2550 Output Total 1050 Balance 1500 - Medications Medications: Current Medications Acetaminophen (Tylenol 325mg Tab) 650 mg PO Q6 COUNTS INCLUDE 234 BEDS AT [facility] Last Admin: 05/04/16 06:35 Dose: 650 mg Bisacodyl (Dulcolax) 5 mg PO Q3D COUNTS INCLUDE 234 BEDS AT [facility] Last Admin: 05/02/16 17:47 Dose: 5 mg Clotrimazole (Lotrimin 1%) 0 gm TOP BID COUNTS INCLUDE 234 BEDS AT [facility] Last Admin: 05/04/16 11:04 Dose: 1 applic Docusate Sodium (Colace) 100 mg PO BID COUNTS INCLUDE 234 BEDS AT [facility] Last Admin: 05/03/16 17:21 Dose: 100 mg Enoxaparin Sodium (Lovenox) 40 mg SC DAILY COUNTS INCLUDE 234 BEDS AT [facility] Last Admin: 05/03/16 10:46 Dose: 40 mg Famotidine (Pepcid) 20 mg PO BID COUNTS INCLUDE 234 BEDS AT [facility] Last Admin: 05/04/16 10:59 Dose: 20 mg Finasteride (Proscar) 5 mg PO DAILY COUNTS INCLUDE 234 BEDS AT [facility] Last Admin: 05/04/16 11:02 Dose: 5 mg Sodium Chloride (Sodium Chloride 0.9%) 1,000 mls @ 125 mls/hr IV .Q8H COUNTS INCLUDE 234 BEDS AT [facility] Last Admin: 05/04/16 11:02 Dose: Not Given Ceftriaxone Sodium 1 gm/ (Sodium Chloride) 100 mls @ 100 mls/hr IVPB DAILY@ 1200 COUNTS INCLUDE 234 BEDS AT [facility] Last Admin: 05/04/16 11:05 Dose: 100 mls/hr Phenazopyridine HCl (Pyridium) 200 mg PO TIDPC COUNTS INCLUDE 234 BEDS AT [facility] Last Admin: 05/04/16 10:59 Dose: 200 mg Polyethylene Glycol (Miralax) 17 gm PO DAILY COUNTS INCLUDE 234 BEDS AT [facility] Last Admin: 05/04/16 11:10 Dose: Not Given Tamsulosin HCl (Flomax) 0.8 mg PO DAILY COUNTS INCLUDE 234 BEDS AT [facility] Last Admin: 05/04/16 10:59 Dose: 0.8 mg Vitamin A (Vitamin A & D Oint Ud Foilpak) 1 ea TOP Q8H COUNTS INCLUDE 234 BEDS AT [facility] Last Admin: 05/04/16 10:59 Dose: 1 ea - Labs Labs: 05/01/16 08:22 05/01/16 08:22 Attending/Attestation - Attestation I have personally seen and examined this patient.: Yes I have fully participated in the care of the patient.: Yes I have reviewed all pertinent clinical information, including history, physical exam and plan: Yes Notes (Text): Patient with acetabular protrusion of R hip prosthesis, admitted for physical deconditioning; Needs to be non-weight bearing on R leg; therefore, indefinite hospital course for patient who is homeless and for whom [facility] would be an unsafe d/c; Also being treated for enterococcal UTI with vanco.
[2016-03-23] MEDS: Ferric Sodium Gluconat Complex 62.5 mg/5 ml Vial IVPB SCH (10:30)
[2016-03-23] MEDS: POLYETHYLENE GLYCOL 3350 17 GM/Dose PACKET PO SCH ×2 (14:32→17:50)
[2016-03-24] MEDS: Vitamins A & D Oint UD Foilpak TOP SCH ×3 (00:44→17:56)
[2016-03-24 07:39] LABS: BASO # 0.1 K/uL (0.0-0.2); BASO % 1.3 % (0.0-2.0); EOS # 0.2 K/uL (0.0-0.7); EOS % 3.7 % (0.0-4.0); HEMOGLOBIN 9.9 g/dL (12.0-18.0); LYMPH # 1.4 K/uL (1.0-4.3); MEAN CELL VOLUME 88.7 fL (80.0-94.0); MEAN CORPUSCULAR HEMOGLOBIN 29.5 pg (27.0-31.0); MEAN CORPUSCULAR HGB CONC 33.3 g/dL (33.0-37.0); MEAN PLATELET VOLUME 7.6 fL (7.2-11.7); MONO # 0.5 K/uL (0.0-0.8); MONO % 11.7 % (0.0-10.0); NEUT # 2.3 K/uL (1.8-7.0); NEUT % 52.3 % (50.0-75.0); RBC 3.35 Mil/uL (4.40-5.90); RED CELL DISTRIBUTION WIDTH 16.6 % (11.5-14.5); WHITE BLOOD COUNT 4.4 K/uL (4.8-10.8)
[2016-03-24 08:05] LABS: ALB/GLOB RATIO 0.7 (1.0-2.1); ALT/SGPT 35 U/L (21-72); AST/SGOT 39 U/L (17-59); BLOOD UREA NITROGEN 17 mg/dL (9-20); GFR AFRICAN-AMERICAN > 60; GFR NON-AFRICAN AMERICAN > 60
[2016-03-24 08:06] LABS: CALCIUM 8.7 mg/dl (8.6-10.4); MAGNESIUM 1.7 mg/dL (1.6-2.3)
[2016-03-24] MEDS: Vancomycin 1 gm/NS 200 ml 200 ML IVPB SCH ×2 (08:38→21:48)
--- NOTE | 2016-03-24 09:24 | CP.PCM.PN ---
<Shabana Samano - Last Filed: 03/24/16 15:25> Subjective - Date & Time of Evaluation Date of Evaluation: 03/24/16 Time of Evaluation: 06:20 - Subjective Subjective: PGY 1 Medicine Note - Dr. Santo's service Pt seen and examined in no acute distress. Per physical therapy, patient able to sit in chair out of bed to chair with much assistance. Patient still complains of constipation. Patient denies subjective fevers or chills, nausea, vomiting, chest pain, palpitations, headaches or diarrhea at this time. Objective - Vital Signs/Intake and Output Vital Signs (last 24 hours): Temp Pulse Resp BP Pulse Ox 98.0 F 75 20 104/62 98 03/24/16 07:44 03/24/16 08:18 03/24/16 07:44 03/24/16 07:44 03/24/16 07:44 Intake and Output: 03/24/16 03/24/16 06:59 18:59 Intake Total 250 Output Total 550 Balance -300 - Medications Medications: Current Medications Docusate Sodium (Colace) 100 mg PO DAILY [facility] Last Admin: 03/23/16 10:31 Dose: 100 mg Ferric Sodium Gluconate Complex (Ferrlecit) 125 mg IVPB DAILY [facility] Stop: 03/30/16 10:01 Last Admin: 03/23/16 10:30 Dose: 125 mg Heparin Sodium (Porcine) (Heparin) 5,000 units SC Q8 [facility] Last Admin: 03/24/16 05:44 Dose: 5,000 units Vancomycin/Sodium Chloride (Vancocin) 200 mls @ 133.333 mls/hr IVPB Q12H [facility] Stop: 03/25/16 21:01 Last Admin: 03/24/16 08:38 Dose: 133.333 mls/hr Polyethylene Glycol (Miralax) 17 gm PO BID [facility] Last Admin: 03/23/16 17:50 Dose: 17 gm Tramadol HCl (Ultram) 25 mg PO Q6H PRN PRN Reason: Pain, Mild (1-3) Last Admin: 03/23/16 14:40 Dose: 25 mg Vitamin A (Vitamin A & D Oint Ud Foilpak) 1 ea TOP Q8H [facility] Last Admin: 03/24/16 00:44 Dose: 1 ea - Labs Labs: 03/24/16 07:19 01/13/17 07:19 - Constitutional Appears: Non-toxic, No Acute Distress - Head Exam Head Exam: ATRAUMATIC, NORMAL INSPECTION, NORMOCEPHALIC - Eye Exam Eye Exam: EOMI, Normal appearance, PERRL Pupil Exam: NORMAL ACCOMODATION - ENT Exam ENT Exam: Mucous Membranes Moist, Normal Exam - Neck Exam Neck Exam: Full ROM - Respiratory Exam Respiratory Exam: NORMAL BREATHING PATTERN. absent: Wheezes - Cardiovascular Exam Cardiovascular Exam: +S1, +S2 - GI/Abdominal Exam GI & Abdominal Exam: Soft, Normal Bowel Sounds. absent: Tenderness - Extremities Exam Extremities Exam: Normal Capillary Refill, Normal Inspection, Pedal Edema. absent: Full ROM - Back Exam Back Exam: Full ROM - Neurological Exam Neurological Exam: Alert, Awake, Oriented x3. absent: Normal Gait - Psychiatric Exam Psychiatric exam: Flat Affect - Skin Skin Exam: Dry Assessment and Plan - Assessment and Plan (Free Text) Assessment: UTI Assessment and Plan: Improving 03/14/16 Urine Cx gram positive for E. faecalis, sensitive to vanco however Urine culture 03/18 no growth. Vanco IVPB Q12 trough on 03/22 is 14.7. (Will complete coverage on March 26, 2016) Repeat UA negative 03/18/16. Repeat Urine Cx negative F/U bladder scans PRN PSA readings borderline abnormal.- On prior admission, recommendations were made for possible biopsy with outpatient management however patient was unable to follow up. Patient to be counseled on follow up management. Reccs for continued outpatient workup per phone discussion with Urologist, Dr. Hughes. Will discuss follow-up compliance with patient. Abdominal Pain Assessment and Plan: abd/pelv CT ordered 03/19/16- Results- Aneurysmal dilatation of ascending thoracic aorta; improved anasarca; atelectasis vs scarring changes of lung bases b/l with left greater than right; constipation; small inguinal hernia with unobstructed bowel loop involvement; acetabular protrusion at site of right hip replacement CT of abd and pelvis- Partial results available- hiatal hernia with airspace disease at lung bases. Need to follow up full report. Per 03/07 admission at [facility]: Abdomen of CT and pelvis showed fecal impaction as well as non obstructing left inguinal hernia containing small bowel. Refer to full report. On Colace. Begin Miralax BID Monitor Abnormal Chest X-Ray Assessment and Plan: Contrast enhanced chest CT findings as noted above. Chest CT ordered 03/17/16 showed questionable soft tissue density seen involving the prevascular space anterior to the aortic arch. This is of unclear clinical significance. This could represent tortuous brachiocephalic vessels. If indicated, contrast-enhanced study recommended. No airspace opacity seen. Mild atelectatic changes. Ectasia of the ascending aorta. constipation. Hiatal hernia with thickening of the distal esophagus. Otherwise the upper abdomen is suboptimally evaluated. Low-density lesion in the right thyroid lobe. Dedicated ultrasound recommended. Repeat Chest Xray 03/17/16 - right upper lobe opacity in the previous exam is not seen in the current study. Chest Xray 03/17/16 Right upper lobe opacity Sacral decub Assessment and Plan: Wound care following -Recommending medihoney covered with bordered telfa dressing to right lower buttocks stage 2 pressure ulcer daily. MUST REPOSITION FREQUENTLY TO OPTIMIZE OFFLOADING OF ALL PRESSURE POINTS. PATIENT CONTINUES TO BE AT RISK FOR SKIN BREAKDOWN. Order placed for turning patient Q2H Wedge pillow placed by nursing to offload pressure off of sacrum Leg edema Assessment and Plan: 40mg PO Lasix daily Venous dopplers performed on 03/07 admission- No signs of DVT Tramadol 25mg Q6H for pain Status: Acute Anemia Assessment and Plan: Stable Hx of anemia on prior admission. Iron def anemia noted- On Ferrlecit daily Status: Chronic Gait instability Assessment and Plan: Per Ortho: No acute fracture noted on imaging. No acute ortho intervention at this time. Pt can follow up outpatient. PT/OT recommendations. Pt will be counseled on following up with appointments. Patient non weight bearing at this time Hip/Pelvis XRAY: s/p right hip arthroplasty. Suspicious for displacement or migration of prosthesis superiorly. Heterogenous sclerotic changes at right pelvic bones of uncertain etiology. 03/12/2016 checking imaging of the lower extremity PT eval- patient needs maximum assist and is thus unsafe for discharge now. Will need more physical therapy. Out of bed to chair with assistance Status: Acute Hx of Aortic aneursym Assessment and Plan: Currently 4.5cm Patient needs repeat CT imaging every 6 months Patient should obtain repeat imaging in July 2016 to assess size Status: Chronic Poor nutrition Assessment and Plan: Patient appears malnourished, though eats quite well B12 and Folate levels WNL Ensure Enlive TID.- Added on with meals. Prophylactic measure Assessment and Plan: Heparin 5000 units q8h A and D ointment to apply to [facility]- Patient is homeless. Will follow up to see which services are available. Pt still non weight bearing ( RLE) with use of a walker. Patient complying with out of bed to chair reccs with assistance from Physical Therapy. Strongly advised for patient to be optimized for ambulation with use of a cane for discharge to long term. Patient still requires more physical therapy. F/U reccs Continue to monitor <Lionel Santo - Last Filed: 05/04/16 16:12> Objective - Vital Signs/Intake and Output Vital Signs (last 24 hours): Temp Pulse Resp BP Pulse Ox 98.0 F 74 20 113/60 96 05/04/16 08:13 05/04/16 08:13 05/04/16 08:13 05/04/16 08:13 05/04/16 08:13 Intake and Output: 05/04/16 05/04/16 06:59 18:59 Intake Total 2550 Output Total 1050 Balance 1500 - Medications Medications: Current Medications Acetaminophen (Tylenol 325mg Tab) 650 mg PO Q6 [facility] Last Admin: 05/04/16 13:36 Dose: 650 mg Bisacodyl (Dulcolax) 5 mg PO Q3D [facility] Last Admin: 05/02/16 17:47 Dose: 5 mg Clotrimazole (Lotrimin 1%) 0 gm TOP BID [facility] Last Admin: 05/04/16 11:04 Dose: 1 applic Docusate Sodium (Colace) 100 mg PO BID [facility] Last Admin: 05/04/16 13:39 Dose: 100 mg Enoxaparin Sodium (Lovenox) 40 mg SC DAILY [facility] Last Admin: 05/04/16 13:38 Dose: 40 mg Famotidine (Pepcid) 20 mg PO BID [facility] Last Admin: 05/04/16 10:59 Dose: 20 mg Finasteride (Proscar) 5 mg PO DAILY [facility] Last Admin: 05/04/16 11:02 Dose: 5 mg Sodium Chloride (Sodium Chloride 0.9%) 1,000 mls @ 125 mls/hr IV .Q8H [facility] Last Admin: 05/04/16 11:02 Dose: Not Given Ceftriaxone Sodium 1 gm/ (Sodium Chloride) 100 mls @ 100 mls/hr IVPB DAILY@ 1200 [facility] Last Admin: 05/04/16 11:05 Dose: 100 mls/hr Phenazopyridine HCl (Pyridium) 200 mg PO TIDPC [facility] Last Admin: 05/04/16 13:36 Dose: 200 mg Polyethylene Glycol (Miralax) 17 gm PO DAILY [facility] Last Admin: 05/04/16 11:10 Dose: Not Given Tamsulosin HCl (Flomax) 0.8 mg PO DAILY [facility] Last Admin: 05/04/16 10:59 Dose: 0.8 mg Vitamin A (Vitamin A & D Oint Ud Foilpak) 1 ea TOP Q8H [facility] Last Admin: 05/04/16 10:59 Dose: 1 ea - Labs Labs: 05/01/16 08:22 05/01/16 08:22 Attending/Attestation - Attestation I have personally seen and examined this patient.: Yes I have fully participated in the care of the patient.: Yes I have reviewed all pertinent clinical information, including history, physical exam and plan: Yes Notes (Text): Patient admitted with physical deconditioning and pain associated with acetabular protrusion involving R hip prosthesis; Needs to be non-weight bearing on R leg; no intervention per ortho, only PT; Being treated for Enterococcal UTI, on vanco.
[2016-03-24] MEDS: POLYETHYLENE GLYCOL 3350 17 GM/Dose PACKET PO SCH ×2 (10:43→17:54)
[2016-03-24] MEDS: Ferric Sodium Gluconat Complex 62.5 mg/5 ml Vial IVPB SCH (10:43)
[2016-03-25] MEDS: Vitamins A & D Oint UD Foilpak TOP SCH ×3 (00:32→18:06)
--- NOTE | 2016-03-25 00:40 | CP.PCM.PN ---
<Mike Guadalupe - Last Filed: 03/25/16 00:37> Subjective - Date & Time of Evaluation Date of Evaluation: 03/25/16 Time of Evaluation: 00:38 - Subjective Subjective: Internal Medicine Progress Note Dr. Santo Patient seen and examined at the bedside. No acute distress. Nursing staff reports no issues. The patient is reporting continued constipation. Per physical therapy, patient able to sit in chair out of bed to chair with much assistance. Patient still complains of constipation. Patient denies fever, chills, headache, chest pain, palpitations, SOB, cough, abdominal pain, nausea, vomiting, diarrhea, constipation, bowel/bladder complaints, and extremity paresthesias. . Objective - Vital Signs/Intake and Output Vital Signs (last 24 hours): Temp Pulse Resp BP Pulse Ox 97.9 F 75 20 110/69 99 03/24/16 16:00 03/24/16 17:28 03/24/16 16:00 03/24/16 17:40 03/24/16 17:28 Intake and Output: 03/24/16 03/25/16 18:59 06:59 Intake Total 400 450 Output Total 700 800 Balance -300 -350 - Medications Medications: Current Medications Docusate Sodium (Colace) 100 mg PO DAILY [facility] Last Admin: 03/24/16 10:49 Dose: 100 mg Ferric Sodium Gluconate Complex (Ferrlecit) 125 mg IVPB DAILY [facility] Stop: 03/30/16 10:01 Last Admin: 03/24/16 10:43 Dose: 125 mg Furosemide (Lasix) 40 mg PO DAILY [facility] Last Admin: 03/24/16 17:40 Dose: 40 mg Heparin Sodium (Porcine) (Heparin) 5,000 units SC Q8 [facility] Last Admin: 03/24/16 21:47 Dose: 5,000 units Vancomycin/Sodium Chloride (Vancocin) 200 mls @ 133.333 mls/hr IVPB Q12H [facility] Stop: 03/25/16 21:01 Last Admin: 03/24/16 21:48 Dose: 133.333 mls/hr Polyethylene Glycol (Miralax) 17 gm PO BID [facility] Last Admin: 03/24/16 17:54 Dose: 17 gm Tramadol HCl (Ultram) 25 mg PO Q6H PRN PRN Reason: Pain, Mild (1-3) Last Admin: 03/23/16 14:40 Dose: 25 mg Vitamin A (Vitamin A & D Oint Ud Foilpak) 1 ea TOP Q8H [facility] Last Admin: 03/25/16 00:32 Dose: 1 ea - Labs Labs: 03/24/16 07:19 03/24/16 07:19 - Constitutional Appears: Well, No Acute Distress - Head Exam Head Exam: ATRAUMATIC, NORMAL INSPECTION, NORMOCEPHALIC - Eye Exam Eye Exam: EOMI, Normal appearance - ENT Exam ENT Exam: Mucous Membranes Moist, Normal Exam - Neck Exam Neck Exam: Full ROM, Normal Inspection. absent: Lymphadenopathy - Respiratory Exam Respiratory Exam: Clear to Ausculation Bilateral, NORMAL BREATHING PATTERN. absent: Accessory Muscle Use, Rhonchi, Wheezes - Cardiovascular Exam Cardiovascular Exam: REGULAR RHYTHM, RRR, +S1, +S2. absent: Diastolic murmur, Murmur - GI/Abdominal Exam GI & Abdominal Exam: Soft, Normal Bowel Sounds. absent: Distended, Firm, Guarding, Rigid, Tenderness - Extremities Exam Extremities Exam: Full ROM, Normal Capillary Refill, Normal Inspection. absent : Joint Swelling, Pedal Edema - Neurological Exam Neurological Exam: Alert, Awake, CN II-XII Intact - Skin Skin Exam: Dry, Intact, Normal Color, Warm Assessment and Plan - Assessment and Plan (Free Text) Plan: UTI Assessment and Plan: Improving 03/14/16 Urine Cx gram positive for E. faecalis, sensitive to vanco however Urine culture 03/18 no growth. Vanco IVPB Q12 trough on 03/22 is 14.7. (Will complete coverage on March 26, 2016) Repeat UA negative 03/18/16. Repeat Urine Cx negative F/U bladder scans PRN PSA readings borderline abnormal.- On prior admission, recommendations were made for possible biopsy with outpatient management however patient was unable to follow up. Patient to be counseled on follow up management. Reccs for continued outpatient workup per phone discussion with Urologist, Dr. Hughes. Will discuss follow-up compliance with patient. Abdominal Pain Assessment and Plan: abd/pelv CT ordered 03/19/16- Results- Aneurysmal dilatation of ascending thoracic aorta; improved anasarca; atelectasis vs scarring changes of lung bases b/l with left greater than right; constipation; small inguinal hernia with unobstructed bowel loop involvement; acetabular protrusion at site of right hip replacement CT of abd and pelvis- Partial results available- hiatal hernia with airspace disease at lung bases. Need to follow up full report. Per 03/07 admission at [facility]: Abdomen of CT and pelvis showed fecal impaction as well as non obstructing left inguinal hernia containing small bowel. Refer to full report. On Colace. Begin Miralax BID Monitor Abnormal Chest X-Ray Assessment and Plan: Contrast enhanced chest CT findings as noted above. Chest CT ordered 03/17/16 showed questionable soft tissue density seen involving the prevascular space anterior to the aortic arch. This is of unclear clinical significance. This could represent tortuous brachiocephalic vessels. If indicated, contrast-enhanced study recommended. No airspace opacity seen. Mild atelectatic changes. Ectasia of the ascending aorta. constipation. Hiatal hernia with thickening of the distal esophagus. Otherwise the upper abdomen is suboptimally evaluated. Low-density lesion in the right thyroid lobe. Dedicated ultrasound recommended. Repeat Chest Xray 03/17/16 - right upper lobe opacity in the previous exam is not seen in the current study. Chest Xray 03/17/16 Right upper lobe opacity Sacral decub Assessment and Plan: Wound care following -Recommending medihoney covered with bordered telfa dressing to right lower buttocks stage 2 pressure ulcer daily. MUST REPOSITION FREQUENTLY TO OPTIMIZE OFFLOADING OF ALL PRESSURE POINTS. PATIENT CONTINUES TO BE AT RISK FOR SKIN BREAKDOWN. Order placed for turning patient Q2H Wedge pillow placed by nursing to offload pressure off of sacrum Leg edema Assessment and Plan: 40mg PO Lasix daily Venous dopplers performed on 03/07 admission- No signs of DVT Tramadol 25mg Q6H for pain Status: Acute Anemia Assessment and Plan: Stable Hx of anemia on prior admission. Iron def anemia noted- On Ferrlecit daily Status: Chronic Gait instability Assessment and Plan: Per Ortho: No acute fracture noted on imaging. No acute ortho intervention at this time. Pt can follow up outpatient. PT/OT recommendations. Pt will be counseled on following up with appointments. Patient non weight bearing at this time Hip/Pelvis XRAY: s/p right hip arthroplasty. Suspicious for displacement or migration of prosthesis superiorly. Heterogenous sclerotic changes at right pelvic bones of uncertain etiology. 03/12/2016 checking imaging of the lower extremity PT eval- patient needs maximum assist and is thus unsafe for discharge now. Will need more physical therapy. Out of bed to chair with assistance Status: Acute Hx of Aortic aneursym Assessment and Plan: Currently 4.5cm Patient needs repeat CT imaging every 6 months Patient should obtain repeat imaging in July 2016 to assess size Status: Chronic Poor nutrition Assessment and Plan: Patient appears malnourished, though eats quite well B12 and Folate levels WNL Ensure Enlive TID.- Added on with meals. Hyponatremia Assessment and Plan: asymptomatic likely hypotonic hypervolemic hyponatremia calc serum osm= 273 monitor CMP fluid restriction Prophylactic measure Assessment and Plan: Heparin 5000 units q8h A and D ointment to apply to Social Work- Patient is homeless. Will follow up to see which services are available. Pt still non weight bearing ( RLE) with use of a walker. Patient complying with out of bed to chair reccs with assistance from Physical Therapy. Strongly advised for patient to be optimized for ambulation with use of a cane for discharge to [facility]. Patient still requires more physical therapy. F/U reccs Continue to monitor <Lionel Santo - Last Filed: 03/26/16 11:22> Objective - Vital Signs/Intake and Output Vital Signs (last 24 hours): Temp Pulse Resp BP Pulse Ox 97.9 F 78 20 134/66 97 03/26/16 08:00 03/26/16 08:00 03/26/16 08:00 03/26/16 08:00 03/26/16 08:00 Intake and Output: 03/26/16 03/26/16 06:59 18:59 Intake Total 450 240 Output Total 500 650 Balance -50 -410 - Medications Medications: Current Medications Docusate Sodium (Colace) 100 mg PO DAILY [facility] Last Admin: 03/25/16 11:29 Dose: 100 mg Ferric Sodium Gluconate Complex (Ferrlecit) 125 mg IVPB DAILY [facility] Stop: 03/30/16 10:01 Last Admin: 03/25/16 11:32 Dose: 125 mg Heparin Sodium (Porcine) (Heparin) 5,000 units SC Q8 [facility] Last Admin: 03/26/16 06:15 Dose: 5,000 units Polyethylene Glycol (Miralax) 17 gm PO BID [facility] Last Admin: 03/25/16 18:05 Dose: 17 gm Tramadol HCl (Ultram) 25 mg PO Q6H PRN PRN Reason: Pain, Mild (1-3) Last Admin: 03/26/16 06:19 Dose: 25 mg Vitamin A (Vitamin A & D Oint Ud Foilpak) 1 ea TOP Q8H [facility] Last Admin: 03/26/16 00:15 Dose: 1 ea - Labs Labs: 03/26/16 08:29 03/26/16 08:29 Attending/Attestation - Attestation I have personally seen and examined this patient.: Yes I have fully participated in the care of the patient.: Yes I have reviewed all pertinent clinical information, including history, physical exam and plan: Yes Notes (Text): Patient is a homeless male s/p R hemiarthroplasty previously, admitted for generalized weakness and pain in RLE preventing him from ambulating; evaluated by ortho service and found to have acetabular protrusion, but no ortho intervention planned, only PT recommended; Patient also being treated for UTI with enterococcus, on vancomycin; to complete 7 day course on 03/26; Bilateral lower ext edema improved with diuretics; etiology unclear; previous venous duplex and US showed no evidence of venous stasis although there is mention of prominent R inguinal node (3 cm size); Will hold further diuresis as BP low/normal; Enlarged prostate noted; may benefit from outpatient biopsy, however, patient with poor f/u; Dispo: Ideally needs LAXMI placement but has no insurance; once PT deems patient strong enough to ambulate with walker, can d/c to [facility].
[2016-03-25 07:24] LABS: BASO # 0.1 K/uL (0.0-0.2); EOS # 0.2 K/uL (0.0-0.7); MONO # 0.5 K/uL (0.0-0.8); NEUT # 2.5 K/uL (1.8-7.0); NRBC % 0.1 % (0.0-2.0)
[2016-03-25 07:39] LABS: BASO % 1.2 % (0.0-2.0); EOS % 4.2 % (0.0-4.0); HEMOGLOBIN 10.6 g/dL (12.0-18.0); LYMPH # 1.6 K/uL (1.0-4.3); MEAN CELL VOLUME 88.6 fL (80.0-94.0); MEAN CORPUSCULAR HGB CONC 33.9 g/dL (33.0-37.0); MEAN PLATELET VOLUME 7.6 fL (7.2-11.7); MONO % 10.5 % (0.0-10.0); NEUT % 51.1 % (50.0-75.0); RBC 3.54 Mil/uL (4.40-5.90); RED CELL DISTRIBUTION WIDTH 16.6 % (11.5-14.5)
[2016-03-25 07:57] LABS: ALBUMIN 3.3 g/dL (3.5-5.0)
[2016-03-25 08:00] LABS: ALB/GLOB RATIO 0.7 (1.0-2.1); ALT/SGPT 29 U/L (21-72); AST/SGOT 29 U/L (17-59); BLOOD UREA NITROGEN 18 mg/dL (9-20); GFR AFRICAN-AMERICAN > 60; GFR NON-AFRICAN AMERICAN > 60
[2016-03-25] MEDS ORDERED: Mineral Oil Enema 135 ml RC ONE (08:00)
[2016-03-25 08:01] LABS: MAGNESIUM 1.9 mg/dL (1.6-2.3)
[2016-03-25] MEDS: Tramadol 25 mg PO PRN (09:07)
[2016-03-25] MEDS: Vancomycin 1 gm/NS 200 ml 200 ML IVPB SCH ×2 (10:00→21:40)
[2016-03-25] MEDS: POLYETHYLENE GLYCOL 3350 17 GM/Dose PACKET PO SCH ×2 (11:29→18:05)
[2016-03-25] MEDS: Ferric Sodium Gluconat Complex 62.5 mg/5 ml Vial IVPB SCH (11:32)
[2016-03-26] MEDS: Vitamins A & D Oint UD Foilpak TOP SCH ×3 (00:15→16:56)
--- NOTE | 2016-03-26 03:16 | CP.PCM.PN ---
<Mike Guadalupe - Last Filed: 03/26/16 03:13> Subjective - Date & Time of Evaluation Date of Evaluation: 03/26/16 Time of Evaluation: 03:13 - Subjective Subjective: Internal Medicine Progress Note Dr. Santo Patient seen and examined at the bedside. No acute distress. Nursing staff reports no issues. The patient is reporting continued constipation and right sided leg pain consistent with his baseline. Per physical therapy, patient able to sit in chair out of bed to chair with much assistance. Patient denies fever, chills, headache, chest pain, palpitations, SOB, cough, abdominal pain, nausea, vomiting, diarrhea, bowel/bladder complaints, and extremity paresthesias. Objective - Vital Signs/Intake and Output Vital Signs (last 24 hours): Temp Pulse Resp BP Pulse Ox 98.1 F 73 20 99/63 L 98 03/26/16 00:00 03/26/16 00:00 03/26/16 00:00 03/26/16 00:00 03/26/16 00:00 Intake and Output: 03/25/16 03/26/16 18:59 06:59 Intake Total 750 450 Output Total 800 500 Balance -50 -50 - Medications Medications: Current Medications Docusate Sodium (Colace) 100 mg PO DAILY [facility] Last Admin: 03/25/16 11:29 Dose: 100 mg Ferric Sodium Gluconate Complex (Ferrlecit) 125 mg IVPB DAILY [facility] Stop: 03/30/16 10:01 Last Admin: 03/25/16 11:32 Dose: 125 mg Furosemide (Lasix) 40 mg PO DAILY [facility] Last Admin: 03/25/16 11:33 Dose: 40 mg Heparin Sodium (Porcine) (Heparin) 5,000 units SC Q8 [facility] Last Admin: 03/25/16 21:40 Dose: 5,000 units Polyethylene Glycol (Miralax) 17 gm PO BID [facility] Last Admin: 03/25/16 18:05 Dose: 17 gm Tramadol HCl (Ultram) 25 mg PO Q6H PRN PRN Reason: Pain, Mild (1-3) Last Admin: 03/25/16 09:07 Dose: 25 mg Vitamin A (Vitamin A & D Oint Ud Foilpak) 1 ea TOP Q8H [facility] Last Admin: 03/25/16 18:06 Dose: 1 ea - Labs Labs: 03/25/16 07:15 01/14/17 07:15 - Constitutional Appears: Non-toxic, Unkempt - Head Exam Head Exam: ATRAUMATIC, NORMAL INSPECTION, NORMOCEPHALIC - Eye Exam Eye Exam: EOMI - ENT Exam ENT Exam: Mucous Membranes Moist - Neck Exam Neck Exam: Full ROM. absent: Lymphadenopathy - Respiratory Exam Respiratory Exam: Clear to Ausculation Bilateral, NORMAL BREATHING PATTERN. absent: Accessory Muscle Use, Rales, Rhonchi, Wheezes, Respiratory Distress, Stridor - Cardiovascular Exam Cardiovascular Exam: REGULAR RHYTHM, RRR, +S1, +S2. absent: Diastolic murmur, Murmur - GI/Abdominal Exam GI & Abdominal Exam: Soft, Normal Bowel Sounds. absent: Distended, Firm, Guarding, Rigid, Tenderness - Extremities Exam Additional comments: Poor hygiene Skin flaking BLE right hip incision well healed. Limited ROM of right hip, complains of pain at about 40 degrees of hip/knee flexion. +ROM ankles DF/PF, toes, flex ext. No peripheral edema to lower legs. +Dp pulses - Neurological Exam Neurological Exam: Alert, Awake - Skin Skin Exam: Dry, Intact, Normal Color, Warm Assessment and Plan - Assessment and Plan (Free Text) Plan: UTI Assessment and Plan: Improving 03/14/16 Urine Cx gram positive for E. faecalis, sensitive to vanco however Urine culture 03/18 no growth. Vanco IVPB Q12 trough on 03/22 is 14.7. (Will complete coverage on March 26, 2016) Repeat UA negative 03/18/16. Repeat Urine Cx negative F/U bladder scans PRN PSA readings borderline abnormal.- On prior admission, recommendations were made for possible biopsy with outpatient management however patient was unable to follow up. Patient to be counseled on follow up management. [facility] for continued outpatient workup per phone discussion with Urologist, Dr. Hughes. Will discuss follow-up compliance with patient. Abdominal Pain Assessment and Plan: abd/pelv CT ordered 03/19/16- Results- Aneurysmal dilatation of ascending thoracic aorta; improved anasarca; atelectasis vs scarring changes of lung bases b/l with left greater than right; constipation; small inguinal hernia with unobstructed bowel loop involvement; acetabular protrusion at site of right hip replacement CT of abd and pelvis- Partial results available- hiatal hernia with airspace disease at lung bases. Need to follow up full report. Per 03/07 admission at [facility]: Abdomen of CT and pelvis showed fecal impaction as well as non obstructing left inguinal hernia containing small bowel. Refer to full report. On Colace. Begin Miralax BID Monitor Abnormal Chest X-Ray Assessment and Plan: Contrast enhanced chest CT findings as noted above. Chest CT ordered 03/17/16 showed questionable soft tissue density seen involving the prevascular space anterior to the aortic arch. This is of unclear clinical significance. This could represent tortuous brachiocephalic vessels. If indicated, contrast-enhanced study recommended. No airspace opacity seen. Mild atelectatic changes. Ectasia of the ascending aorta. constipation. Hiatal hernia with thickening of the distal esophagus. Otherwise the upper abdomen is suboptimally evaluated. Low-density lesion in the right thyroid lobe. Dedicated ultrasound recommended. Repeat Chest Xray 03/17/16 - right upper lobe opacity in the previous exam is not seen in the current study. Chest Xray 03/17/16 Right upper lobe opacity Sacral decub Assessment and Plan: Wound care following -Recommending medihoney covered with bordered telfa dressing to right lower buttocks stage 2 pressure ulcer daily. MUST REPOSITION FREQUENTLY TO OPTIMIZE OFFLOADING OF ALL PRESSURE POINTS. PATIENT CONTINUES TO BE AT RISK FOR SKIN BREAKDOWN. Order placed for turning patient Q2H Wedge pillow placed by nursing to offload pressure off of sacrum Leg edema Assessment and Plan: 40mg PO Lasix daily Venous dopplers performed on 03/07 admission- No signs of DVT Tramadol 25mg Q6H for pain Status: Acute Anemia Assessment and Plan: Stable Hx of anemia on prior admission. Iron def anemia noted- On Ferrlecit daily Status: Chronic Gait instability Assessment and Plan: Per Ortho: No acute fracture noted on imaging. No acute ortho intervention at this time. Pt can follow up outpatient. PT/OT recommendations. Pt will be counseled on following up with appointments. Patient non weight bearing at this time Hip/Pelvis XRAY: s/p right hip arthroplasty. Suspicious for displacement or migration of prosthesis superiorly. Heterogenous sclerotic changes at right pelvic bones of uncertain etiology. 03/12/2016 checking imaging of the lower extremity PT eval- patient needs maximum assist and is thus unsafe for discharge now. Will need more physical therapy. Out of bed to chair with assistance Status: Acute Hx of Aortic aneursym Assessment and Plan: Currently 4.5cm Patient needs repeat CT imaging every 6 months Patient should obtain repeat imaging in July 2016 to assess size Status: Chronic Poor nutrition Assessment and Plan: Patient appears malnourished, though eats quite well B12 and Folate levels WNL Ensure Enlive TID.- Added on with meals. Hyponatremia Assessment and Plan: asymptomatic likely hypotonic hypervolemic hyponatremia calc serum osm= 273 monitor CMP fluid restriction Prophylactic measure Assessment and Plan: Heparin 5000 units q8h A and D ointment to apply to [facility]- Patient is homeless. Will follow up to see which services are available. Pt still non weight bearing ( RLE) with use of a walker. Patient complying with out of bed to chair reccs with assistance from Physical Therapy. Strongly advised for patient to be optimized for ambulation with use of a cane for discharge to [facility]. Patient still requires more physical therapy. F/U reccs Continue to monitor Tod Bentonndi PGY1 <Lionel Santo - Last Filed: 03/26/16 22:19> Objective - Vital Signs/Intake and Output Vital Signs (last 24 hours): Temp Pulse Resp BP Pulse Ox 98.1 F 72 20 126/72 98 03/26/16 16:47 03/26/16 16:47 03/26/16 16:47 03/26/16 16:47 03/26/16 16:47 Intake and Output: 03/26/16 03/27/16 18:59 06:59 Intake Total 740 Output Total 950 Balance -210 - Medications Medications: Current Medications Docusate Sodium (Colace) 100 mg PO DAILY [facility] Last Admin: 03/26/16 11:40 Dose: 100 mg Ferric Sodium Gluconate Complex (Ferrlecit) 125 mg IVPB DAILY [facility] Stop: 03/30/16 10:01 Last Admin: 03/26/16 11:40 Dose: 125 mg Heparin Sodium (Porcine) (Heparin) 5,000 units SC Q8 [facility] Last Admin: 03/26/16 21:50 Dose: 5,000 units Vancomycin/Sodium Chloride (Vancocin) 200 mls @ 133 mls/hr IVPB Q12H [facility] Stop: 03/27/16 01:31 Last Admin: 03/26/16 13:00 Dose: 133 mls/hr Polyethylene Glycol (Miralax) 17 gm PO BID [facility] Last Admin: 03/26/16 11:38 Dose: 17 gm Tramadol HCl (Ultram) 25 mg PO Q6H PRN PRN Reason: Pain, Mild (1-3) Last Admin: 03/26/16 06:19 Dose: 25 mg Vitamin A (Vitamin A & D Oint Ud Foilpak) 1 ea TOP Q8H [facility] Last Admin: 03/26/16 16:56 Dose: 1 ea - Labs Labs: 03/26/16 08:29 03/26/16 08:29 Attending/Attestation - Attestation I have personally seen and examined this patient.: Yes I have fully participated in the care of the patient.: Yes I have reviewed all pertinent clinical information, including history, physical exam and plan: Yes Notes (Text): Patient is a homeless male s/p R hemiarthroplasty previously, admitted for generalized weakness and pain in RLE preventing him from ambulating; evaluated by ortho service and found to have acetabular protrusion, but no ortho intervention planned, only PT recommended; Constipation resolved; Patient also being treated for UTI with enterococcus, on vancomycin; to complete 7 day course on 03/26 (today); Bilateral lower ext edema improved with diuretics; etiology unclear; previous venous duplex and US showed no evidence of venous stasis although there is mention of prominent R inguinal node (3 cm size); Holding diuresis as BP low/normal yesterday; Enlarged prostate noted; may benefit from outpatient biopsy, however, patient with poor f/u; Dispo: Ideally needs LAXMI placement but has no insurance; once PT deems patient strong enough to ambulate with walker, can d/c to [facility]. 03/26/16 22:18
[2016-03-26] MEDS: Tramadol 25 mg PO PRN (06:19)
[2016-03-26 08:41] LABS: BASO # 0.1 K/uL (0.0-0.2); BASO % 1.1 % (0.0-2.0); EOS # 0.2 K/uL (0.0-0.7); EOS % 3.7 % (0.0-4.0); HEMOGLOBIN 10.8 g/dL (12.0-18.0); LYMPH # 1.4 K/uL (1.0-4.3); LYMPH % 29.5 % (20.0-40.0); MEAN CELL VOLUME 88.1 fL (80.0-94.0); MEAN CORPUSCULAR HEMOGLOBIN 29.9 pg (27.0-31.0); MEAN CORPUSCULAR HGB CONC 33.9 g/dL (33.0-37.0); MEAN PLATELET VOLUME 7.8 fL (7.2-11.7); MONO # 0.6 K/uL (0.0-0.8); MONO % 11.3 % (0.0-10.0); NEUT # 2.7 K/uL (1.8-7.0); NEUT % 54.4 % (50.0-75.0); NRBC % 0.1 % (0.0-2.0); RBC 3.62 Mil/uL (4.40-5.90); RED CELL DISTRIBUTION WIDTH 16.4 % (11.5-14.5); WHITE BLOOD COUNT 4.9 K/uL (4.8-10.8)
[2016-03-26 09:19] LABS: ALBUMIN 3.4 g/dL (3.5-5.0)
[2016-03-26 09:22] LABS: ALB/GLOB RATIO 0.7 (1.0-2.1); ALT/SGPT 27 U/L (21-72); AST/SGOT 27 U/L (17-59); BLOOD UREA NITROGEN 18 mg/dL (9-20); GFR AFRICAN-AMERICAN > 60; GFR NON-AFRICAN AMERICAN > 60
[2016-03-26 09:23] LABS: MAGNESIUM 1.8 mg/dL (1.6-2.3)
[2016-03-26] MEDS: POLYETHYLENE GLYCOL 3350 17 GM/Dose PACKET PO SCH ×2 (11:38→18:00)
[2016-03-26] MEDS: Ferric Sodium Gluconat Complex 62.5 mg/5 ml Vial IVPB SCH (11:40)
[2016-03-26] MEDS: Vancomycin 1 gm/NS 200 ml 200 ML IVPB SCH (13:00)
[2016-03-27] MEDS: Vancomycin 1 gm/NS 200 ml 200 ML IVPB SCH (00:24)
[2016-03-27] MEDS: Vitamins A & D Oint UD Foilpak TOP SCH ×3 (00:26→17:44)
[2016-03-27] MEDS: Tramadol 25 mg PO PRN ×3 (05:14→17:42)
[2016-03-27 07:01] LABS: ALBUMIN 3.5 g/dL (3.5-5.0)
[2016-03-27 07:03] LABS: GFR AFRICAN-AMERICAN > 60; GFR NON-AFRICAN AMERICAN > 60
[2016-03-27 07:04] LABS: ALB/GLOB RATIO 0.8 (1.0-2.1); ALT/SGPT 30 U/L (21-72); AST/SGOT 25 U/L (17-59); BLOOD UREA NITROGEN 19 mg/dL (9-20)
[2016-03-27 07:05] LABS: CALCIUM 8.9 mg/dl (8.6-10.4); MAGNESIUM 1.7 mg/dL (1.6-2.3)
[2016-03-27 07:22] LABS: BASO # 0.1 K/uL (0.0-0.2); EOS # 0.2 K/uL (0.0-0.7); EOS % 2.8 % (0.0-4.0); HEMOGLOBIN 10.5 g/dL (12.0-18.0); LYMPH # 1.6 K/uL (1.0-4.3); LYMPH % 26.7 % (20.0-40.0); MEAN CELL VOLUME 88.9 fL (80.0-94.0); MEAN CORPUSCULAR HGB CONC 33.7 g/dL (33.0-37.0); MEAN PLATELET VOLUME 7.9 fL (7.2-11.7); MONO # 0.6 K/uL (0.0-0.8); MONO % 9.4 % (0.0-10.0); NEUT # 3.6 K/uL (1.8-7.0); NEUT % 60.1 % (50.0-75.0); RBC 3.51 Mil/uL (4.40-5.90); RED CELL DISTRIBUTION WIDTH 17.2 % (11.5-14.5); WHITE BLOOD COUNT 5.9 K/uL (4.8-10.8)
--- NOTE | 2016-03-27 10:22 | CP.PCM.PN ---
Subjective - Date & Time of Evaluation Date of Evaluation: 03/27/16 Time of Evaluation: 10:21 - Subjective Subjective: Patient stable, no new complaints. Objective - Vital Signs/Intake and Output Vital Signs (last 24 hours): Temp Pulse Resp BP Pulse Ox 97.8 F 78 20 115/69 99 03/27/16 07:42 03/27/16 07:42 03/27/16 07:42 03/27/16 07:42 03/27/16 07:42 Intake and Output: 03/27/16 03/27/16 06:59 18:59 Intake Total 200 440 Output Total 600 650 Balance -400 -210 - Medications Medications: Current Medications Docusate Sodium (Colace) 100 mg PO DAILY [facility] Last Admin: 03/26/16 11:40 Dose: 100 mg Ferric Sodium Gluconate Complex (Ferrlecit) 125 mg IVPB DAILY [facility] Stop: 03/30/16 10:01 Last Admin: 03/26/16 11:40 Dose: 125 mg Heparin Sodium (Porcine) (Heparin) 5,000 units SC Q8 [facility] Last Admin: 03/27/16 05:30 Dose: 5,000 units Polyethylene Glycol (Miralax) 17 gm PO BID [facility] Last Admin: 03/26/16 18:00 Dose: Not Given Tramadol HCl (Ultram) 25 mg PO Q6H PRN PRN Reason: Pain, Mild (1-3) Last Admin: 03/27/16 05:14 Dose: 25 mg Vitamin A (Vitamin A & D Oint Ud Foilpak) 1 ea TOP Q8H [facility] Last Admin: 03/27/16 00:26 Dose: 1 ea - Labs Labs: 03/27/16 06:40 03/27/16 06:40 - Extremities Exam Additional comments: RLE: NVID, pain with hip ROM. Calves soft NT neg homans PT notes appreciated, making progress with ambulation Assessment and Plan (1) Acetabular protrusion Assessment & Plan: chronic no acute changes no orthopedic intervention planned at this time PT/OT patient can follow up as outpatient with ortho d/w Dr. Pino, agrees Status: Acute
[2016-03-27] MEDS: Ferric Sodium Gluconat Complex 62.5 mg/5 ml Vial IVPB SCH (11:08)
[2016-03-27] MEDS: POLYETHYLENE GLYCOL 3350 17 GM/Dose PACKET PO SCH ×2 (11:09→17:44)
[2016-03-27 17:51] LABS: GFR AFRICAN-AMERICAN > 60; GFR NON-AFRICAN AMERICAN > 60
[2016-03-27 17:52] LABS: BLOOD UREA NITROGEN 19 mg/dL (9-20); CALCIUM 8.9 mg/dl (8.6-10.4)
--- NOTE | 2016-03-27 21:49 | CP.PCM.PN ---
<Marvel Gomez - Last Filed: 03/27/16 21:46> Subjective - Date & Time of Evaluation Date of Evaluation: 03/27/16 Time of Evaluation: 10:00 - Subjective Subjective: Internal Medicine Progress Note Dr. Wiggins Patient seen and examined at the bedside. No acute distress. The patient is reporting continued right sided leg pain consistent with his baseline. Per physical therapy, patient able to sit in chair out of bed to chair with much assistance. Patient denies fever, chills, headache, chest pain, palpitations, SOB, cough, abdominal pain, nausea, vomiting, diarrhea. Objective - Vital Signs/Intake and Output Vital Signs (last 24 hours): Temp Pulse Resp BP Pulse Ox 98.3 F 74 20 120/70 98 03/27/16 16:00 03/27/16 16:00 03/27/16 16:00 03/27/16 16:00 03/27/16 16:00 Intake and Output: 03/27/16 03/28/16 18:59 06:59 Intake Total 790 Output Total 650 Balance 140 - Medications Medications: Current Medications Docusate Sodium (Colace) 100 mg PO DAILY [facility] Last Admin: 03/27/16 11:08 Dose: Not Given Ferric Sodium Gluconate Complex (Ferrlecit) 125 mg IVPB DAILY [facility] Stop: 03/30/16 10:01 Last Admin: 03/27/16 11:08 Dose: 125 mg Heparin Sodium (Porcine) (Heparin) 5,000 units SC Q8 [facility] Last Admin: 03/27/16 21:27 Dose: 5,000 units Polyethylene Glycol (Miralax) 17 gm PO BID [facility] Last Admin: 03/27/16 17:44 Dose: Not Given Tramadol HCl (Ultram) 25 mg PO Q6H PRN PRN Reason: Pain, Mild (1-3) Last Admin: 03/27/16 17:42 Dose: 25 mg Vitamin A (Vitamin A & D Oint Ud Foilpak) 1 ea TOP Q8H [facility] Last Admin: 03/27/16 17:44 Dose: 1 ea - Labs Labs: 03/27/16 06:40 03/27/16 17:24 Assessment and Plan - Assessment and Plan (Free Text) Plan: UTI - resolved 03/14/16 Urine Cx gram positive for E. faecalis, sensitive to vanco however Urine culture 03/18 no growth. Vanco d/c Repeat UA negative 03/18/16. Repeat Urine Cx negative Abdominal Pain abd/pelv CT ordered 03/19/16- Results- Aneurysmal dilatation of ascending thoracic aorta; improved anasarca; atelectasis vs scarring changes of lung bases b/l with left greater than right; constipation; small inguinal hernia with unobstructed bowel loop involvement; acetabular protrusion at site of right hip replacement Colace Miralax BID Monitor Abnormal Chest X-Ray Contrast enhanced chest CT findings as noted. Chest CT ordered 03/17/16 showed questionable soft tissue density seen involving the prevascular space anterior to the aortic arch. This is of unclear clinical significance. This could represent tortuous brachiocephalic vessels. If indicated, contrast-enhanced study recommended. No airspace opacity seen. Mild atelectatic changes. Ectasia of the ascending aorta. constipation. Hiatal hernia with thickening of the distal esophagus. Otherwise the upper abdomen is suboptimally evaluated. Low-density lesion in the right thyroid lobe. Dedicated ultrasound recommended. Repeat Chest Xray 03/17/16 - right upper lobe opacity in the previous exam is not seen in the current study. Chest Xray 03/17/16 Right upper lobe opacity Sacral decub Wound care following -Recommending medihoney covered with bordered telfa dressing to right lower buttocks stage 2 pressure ulcer daily. MUST REPOSITION FREQUENTLY TO OPTIMIZE OFFLOADING OF ALL PRESSURE POINTS. PATIENT CONTINUES TO BE AT RISK FOR SKIN BREAKDOWN. Order placed for turning patient Q2H Wedge pillow placed by nursing to offload pressure off of sacrum Leg edema 40mg PO Lasix daily Venous dopplers performed on 03/07 admission- No signs of DVT Tramadol 25mg Q6H for pain Status: Acute Anemia - resolved Stable Hx of anemia on prior admission. Iron def anemia noted- On Ferrlecit daily Status: Chronic Gait instability Per Ortho: No acute fracture noted on imaging. No acute ortho intervention at this time. Pt can follow up outpatient. PT/OT recommendations. Pt will be counseled on following up with appointments. Patient non weight bearing at this time Hip/Pelvis XRAY: s/p right hip arthroplasty. Suspicious for displacement or migration of prosthesis superiorly. Heterogenous sclerotic changes at right pelvic bones of uncertain etiology. 03/12/2016 checking imaging of the lower extremity PT eval- patient needs maximum assist and is thus unsafe for discharge now. Will need more physical therapy. 03/27: Tolerated activities but in 10/19 pain, continue PT. Out of bed to chair with assistance Status: Acute Hx of Aortic aneursym Currently 4.5cm Patient needs repeat CT imaging every 6 months Patient should obtain repeat imaging in July 2016 to assess size Status: Chronic Poor nutrition Patient appears malnourished, though eats quite well B12 and Folate levels WNL Ensure Enlive TID.- Added on with meals. Hyponatremia - resolved Prophylactic measure Heparin 5000 units q8h A and D ointment to apply to [employer] Social Work- Patient is homeless. Will follow up to see which services are available. Pt still non weight bearing ( RLE) with use of a walker. Patient complying with out of bed to chair reccs with assistance from Physical Therapy. Strongly advised for patient to be optimized for ambulation with use of a cane [facility] Patient still requires more physical therapy. F/U reccs Continue to monitor Thank you, Marvel Gomez PGY1 <Jose Wiggins M - Last Filed: 03/27/16 22:42> Objective - Vital Signs/Intake and Output Vital Signs (last 24 hours): Temp Pulse Resp BP Pulse Ox 98.3 F 74 20 120/70 98 03/27/16 16:00 03/27/16 16:00 03/27/16 16:00 03/27/16 16:00 03/27/16 16:00 Intake and Output: 03/27/16 03/28/16 18:59 06:59 Intake Total 790 Output Total 650 Balance 140 - Medications Medications: Current Medications Docusate Sodium (Colace) 100 mg PO DAILY [facility] Last Admin: 03/27/16 11:08 Dose: Not Given Ferric Sodium Gluconate Complex (Ferrlecit) 125 mg IVPB DAILY [facility] Stop: 03/30/16 10:01 Last Admin: 03/27/16 11:08 Dose: 125 mg Heparin Sodium (Porcine) (Heparin) 5,000 units SC Q8 [facility] Last Admin: 03/27/16 21:27 Dose: 5,000 units Polyethylene Glycol (Miralax) 17 gm PO BID [facility] Last Admin: 03/27/16 17:44 Dose: Not Given Tramadol HCl (Ultram) 25 mg PO Q6H PRN PRN Reason: Pain, Mild (1-3) Last Admin: 03/27/16 17:42 Dose: 25 mg Vitamin A (Vitamin A & D Oint Ud Foilpak) 1 ea TOP Q8H [facility] Last Admin: 03/27/16 17:44 Dose: 1 ea - Labs Labs: 03/27/16 06:40 03/27/16 17:24 Attending/Attestation - Attestation I have personally seen and examined this patient.: Yes I have fully participated in the care of the patient.: Yes I have reviewed all pertinent clinical information, including history, physical exam and plan: Yes Notes (Text): 03/27/16 22:40 patient was seen and examined at bedside with the test Complains of pain in the right hip orthopedic follow-up seen and appreciated No plan for surgery Continue physical therapy Monitor periodic labs
[2016-03-28] MEDS: Tramadol 25 mg PO PRN ×3 (05:55→18:50)
--- NOTE | 2016-03-28 11:01 | CP.PCM.PN ---
<Marvel Gomez - Last Filed: 03/28/16 19:26> Subjective - Date & Time of Evaluation Date of Evaluation: 03/28/16 Time of Evaluation: 09:20 - Subjective Subjective: Patient seen and examined at the bedside. No acute distress. The patient is reporting continued right sided leg pain consistent with his baseline. Per physical therapy, patient able to sit in chair out of bed to chair with much assistance. Patient c/o fever, chills, headache, cough, abdominal pain. Pt. denies chest pain, palpitations, SOB, nausea, vomiting, or diarrhea. Objective - Vital Signs/Intake and Output Vital Signs (last 24 hours): Temp Pulse Resp BP Pulse Ox 98.1 F 76 20 119/77 99 03/28/16 08:00 03/28/16 08:00 03/28/16 08:00 03/28/16 08:00 03/28/16 08:00 - Medications Medications: Current Medications Docusate Sodium (Colace) [address] [facility] Last Admin: 03/27/16 11:08 Dose: Not Given Ferric Sodium Gluconate Complex (Ferrlecit) [address] [facility] Stop: 03/30/16 10:01 Last Admin: 03/27/16 11:08 Dose: 125 mg Heparin Sodium (Porcine) (Heparin) 5,[address] [facility] Last Admin: 03/28/16 05:51 Dose: 5,000 units Polyethylene Glycol (Miralax) [address] [facility] Last Admin: 03/27/16 17:44 Dose: Not Given Tramadol HCl (Ultram) 25 mg PO Q6H PRN PRN Reason: Pain, Mild (1-3) Last Admin: 03/28/16 05:55 Dose: 25 mg Vitamin A (Vitamin A & D Oint Ud Foilpak) [address] [facility] Last Admin: 03/28/16 00:00 Dose: 1 ea - Labs Labs: 03/27/16 06:40 03/27/16 17:24 - Constitutional Appears: Non-toxic, No Acute Distress - Head Exam Head Exam: ATRAUMATIC - Eye Exam Eye Exam: EOMI - ENT Exam ENT Exam: Mucous Membranes Moist - Neck Exam Neck Exam: Full ROM - Respiratory Exam Respiratory Exam: Clear to Ausculation Bilateral, NORMAL BREATHING PATTERN - Cardiovascular Exam Cardiovascular Exam: REGULAR RHYTHM, RRR, +S1, +S2. absent: JVD - GI/Abdominal Exam GI & Abdominal Exam: Soft, Normal Bowel Sounds. absent: Tenderness - Extremities Exam Extremities Exam: Tenderness. absent: Joint Swelling Additional comments: Right Hip pain and pain on palpation - Neurological Exam Neurological Exam: Alert, Awake, Oriented x3 - Psychiatric Exam Psychiatric exam: Normal Affect, Normal Mood - Skin Skin Exam: Dry, Intact, Normal Color, Warm Assessment and Plan - Assessment and Plan (Free Text) Assessment: 71 year old cuban speaking homeless man with pmh of right hip arthroplasty with "worrisome for hardware loosening and displacement or migration superiorly ", complaines of generalized pain, abdominal pain, and right hip pain. Plan: UTI - resolved Abdominal Pain abd/pelv CT ordered 03/19/16- Results- Aneurysmal dilatation of ascending thoracic aorta; improved anasarca; atelectasis vs scarring changes of lung bases b/l with left greater than right; constipation; small inguinal hernia with unobstructed bowel loop involvement; acetabular protrusion at site of right hip replacement Colace Miralax BID Monitor Abnormal Chest X-Ray Contrast enhanced chest CT findings as noted. Chest CT ordered 03/17/16 showed questionable soft tissue density seen involving the prevascular space anterior to the aortic arch. This is of unclear clinical significance. This could represent tortuous brachiocephalic vessels. If indicated, contrast-enhanced study recommended. No airspace opacity seen. Mild atelectatic changes. Ectasia of the ascending aorta. constipation. Hiatal hernia with thickening of the distal esophagus. Otherwise the upper abdomen is suboptimally evaluated. Low-density lesion in the right thyroid lobe. Dedicated ultrasound recommended. Repeat Chest Xray 03/17/16 - right upper lobe opacity in the previous exam is not seen in the current study. Chest Xray 03/17/16 Right upper lobe opacity Sacral decub Wound care following -Recommending medihoney covered with bordered telfa dressing to right lower buttocks stage 2 pressure ulcer daily. MUST REPOSITION FREQUENTLY TO OPTIMIZE OFFLOADING OF ALL PRESSURE POINTS. PATIENT CONTINUES TO BE AT RISK FOR SKIN BREAKDOWN. Pt is OOB to chair with help from PT daily Order placed for turning patient Q2H Wedge pillow placed by nursing to offload pressure off of sacrum Leg edema-resolved Anemia - resolved Stable Hx of anemia on prior admission. Iron def anemia noted- On Ferrlecit daily Status: Chronic Gait instability Per Ortho: No acute fracture noted on imaging. No acute ortho intervention at this time. Pt can follow up outpatient. PT/OT recommendations. Pt will be counseled on following up with appointments. Patient non weight bearing at this time Hip/Pelvis XRAY: s/p right hip arthroplasty. Suspicious for displacement or migration of prosthesis superiorly. Heterogenous sclerotic changes at right pelvic bones of uncertain etiology. 03/12/2016 checking imaging of the lower extremity PT eval- patient needs maximum assist and is thus unsafe for discharge now. Will need more physical therapy. 03/27: Tolerated activities but in 8/10 pain, continue PT. Out of bed to chair with assistance Status: Acute Hx of Aortic aneursym Currently 4.5cm Patient needs repeat CT imaging every 6 months Patient should obtain repeat imaging in July 2016 to assess size Status: Chronic Poor nutrition- resoleved Hyponatremia - resolved Prophylactic measure Heparin 5000 units q8h A and D ointment to apply to [employer] [facility]- Patient is homeless. Will follow up to see which services are available. Pt still non weight bearing ( RLE) with use of a walker. Patient complying with out of bed to chair reccs with assistance from Physical Therapy. Strongly advised for patient to be optimized for ambulation with use of a cane for discharge to intermediate. Patient still requires more physical therapy. F/U reccs Continue to monitor Thank you, Marvel Gomez PGY1 <Jose Wiggins M - Last Filed: 03/28/16 21:39> Objective - Vital Signs/Intake and Output Vital Signs (last 24 hours): Temp Pulse Resp BP Pulse Ox 97.9 F 83 20 131/73 97 03/28/16 16:00 03/28/16 16:00 03/28/16 16:00 03/28/16 16:00 03/28/16 16:00 Intake and Output: 03/28/16 03/29/16 18:59 06:59 Intake Total 300 Balance 300 - Medications Medications: Current Medications Docusate Sodium (Colace) [address] [facility] Last Admin: 03/28/16 11:22 Dose: Not Given Ferric Sodium Gluconate Complex (Ferrlecit) [address] [facility] Stop: 03/30/16 10:01 Last Admin: 03/28/16 11:22 Dose: 125 mg Heparin Sodium (Porcine) (Heparin) 5,[address] [facility] Last Admin: 03/28/16 13:48 Dose: 5,000 units Polyethylene Glycol (Miralax) [address] [facility] Last Admin: 03/28/16 18:58 Dose: Not Given Tramadol HCl (Ultram) 50 mg PO Q6H PRN PRN Reason: Pain, Mild (1-3) Vitamin A (Vitamin A & D Oint Ud Foilpak) [address] [facility] Last Admin: 03/28/16 17:19 Dose: 1 ea - Labs Labs: 03/27/16 06:40 03/27/16 17:24 Attending/Attestation - Attestation I have personally seen and examined this patient.: Yes I have fully participated in the care of the patient.: Yes I have reviewed all pertinent clinical information, including history, physical exam and plan: Yes Notes (Text): 03/28/16 21:38 patient was seen and examined at bedside with the restaurant He continues to complain of pain in the right hip we will increase pain medication for optimal pain control We will continue physical therapy daily
[2016-03-28] MEDS: Ferric Sodium Gluconat Complex 62.5 mg/5 ml Vial IVPB SCH (11:22)
[2016-03-28] MEDS: POLYETHYLENE GLYCOL 3350 17 GM/Dose PACKET PO SCH ×2 (11:23→18:58)
[2016-03-28] MEDS: Vitamins A & D Oint UD Foilpak TOP SCH ×3 (11:24→17:19)
[2016-03-29] MEDS: Vitamins A & D Oint UD Foilpak TOP SCH ×3 (00:25→17:00)
[2016-03-29] MEDS: Ferric Sodium Gluconat Complex 62.5 mg/5 ml Vial IVPB SCH (10:52)
[2016-03-29] MEDS: POLYETHYLENE GLYCOL 3350 17 GM/Dose PACKET PO SCH ×2 (10:53→21:23)
[2016-03-29] MEDS: Oxycodone/Acetaminophen 5/325 mg Tab PO PRN ×2 (10:54→18:00)
--- NOTE | 2016-03-29 20:40 | CP.PCM.PN ---
<Marvel Gomez - Last Filed: 03/30/16 00:19> Subjective - Date & Time of Evaluation Date of Evaluation: 03/29/16 Time of Evaluation: 09:00 - Subjective Subjective: Patient seen and examined at the bedside. No acute distress. The patient is reporting continued right sided leg pain consistent with his baseline. Per physical therapy, patient able to sit in chair out of bed to chair with much assistance. Patient c/o fever, chills, headache, cough, abdominal pain. Pt. denies chest pain, palpitations, SOB, nausea, vomiting, or diarrhea. Pt. also complained of worsening LLQ pain on coughing. Objective - Vital Signs/Intake and Output Vital Signs (last 24 hours): Temp Pulse Resp BP Pulse Ox 98.6 F 86 20 110/70 97 03/29/16 15:10 03/29/16 16:05 03/29/16 15:10 03/29/16 16:05 03/29/16 16:05 Intake and Output: 03/29/16 03/30/16 18:59 06:59 Intake Total 500 Output Total 400 Balance 100 - Medications Medications: Current Medications Acetaminophen (Tylenol 325mg Tab) 650 mg PO Q6 PRN PRN Reason: Pain, Mild (1-3) Docusate Sodium (Colace) 100 mg PO DAILY [facility] Last Admin: 03/29/16 10:53 Dose: Not Given Ferric Sodium Gluconate Complex (Ferrlecit) 125 mg IVPB DAILY [facility] Stop: 03/30/16 10:01 Last Admin: 03/29/16 10:52 Dose: 125 mg Heparin Sodium (Porcine) (Heparin) 5,000 units SC Q8 [facility] Last Admin: 03/29/16 13:54 Dose: 5,000 units Oxycodone/Acetaminophen (Percocet 5/325 Mg Tab) 1 tab PO Q6H PRN PRN Reason: Pain, moderate (4-7) Stop: 04/01/16 10:24 Last Admin: 03/29/16 10:54 Dose: 1 tab Polyethylene Glycol (Miralax) 17 gm PO BID [facility] Last Admin: 03/29/16 10:53 Dose: Not Given Vitamin A (Vitamin A & D Oint Ud Foilpak) 1 ea TOP Q8H [facility] Last Admin: 03/29/16 10:59 Dose: 1 ea - Labs Labs: 03/27/16 06:40 03/27/16 17:24 Assessment and Plan - Assessment and Plan (Free Text) Plan: UTI - resolved Abdominal Pain abd/pelv CT ordered 03/19/16- Results- Aneurysmal dilatation of ascending thoracic aorta; improved anasarca; atelectasis vs scarring changes of lung bases b/l with left greater than right; constipation; small inguinal hernia with unobstructed bowel loop involvement; acetabular protrusion at site of right hip replacement Colace Miralax BID Monitor Abnormal Chest X-Ray Contrast enhanced chest CT findings as noted. Chest CT ordered 03/17/16 showed questionable soft tissue density seen involving the prevascular space anterior to the aortic arch. This is of unclear clinical significance. This could represent tortuous brachiocephalic vessels. If indicated, contrast-enhanced study recommended. No airspace opacity seen. Mild atelectatic changes. Ectasia of the ascending aorta. constipation. Hiatal hernia with thickening of the distal esophagus. Otherwise the upper abdomen is suboptimally evaluated. Low-density lesion in the right thyroid lobe. Dedicated ultrasound recommended. Repeat Chest Xray 03/17/16 - right upper lobe opacity in the previous exam is not seen in the current study. Chest Xray 03/17/16 Right upper lobe opacity Sacral decub Wound care following -Recommending medihoney covered with bordered telfa dressing to right lower buttocks stage 2 pressure ulcer daily. MUST REPOSITION FREQUENTLY TO OPTIMIZE OFFLOADING OF ALL PRESSURE POINTS. PATIENT CONTINUES TO BE AT RISK FOR SKIN BREAKDOWN. Pt is OOB to chair with help from PT daily Order placed for turning patient Q2H Wedge pillow placed by nursing to offload pressure off of sacrum Leg edema-resolved Anemia - resolved Stable Hx of anemia on prior admission. Iron def anemia noted- On Ferrlecit daily Status: Chronic Gait instability Per Ortho: No acute fracture noted on imaging. No acute ortho intervention at this time. Pt can follow up outpatient. PT/OT recommendations. Pt will be counseled on following up with appointments. Patient non weight bearing at this time Hip/Pelvis XRAY: s/p right hip arthroplasty. Suspicious for displacement or migration of prosthesis superiorly. Heterogenous sclerotic changes at right pelvic bones of uncertain etiology. 03/12/2016 checking imaging of the lower extremity PT eval- TOLERATING OOB DESPITE CONSTANT R THIGH PAIN COMPLAINTS. PATIENT W/ IMPROVED CARRY OVER OF RLE NWB, WILL CONT TO PROGRESS GAIT. PATIENT NEEDS TO BE OOB TO CHAIR DAILY CLEARED TO BE ASSISTED BY NURSING increased pain medication to Percocet 5/325 Status: Acute Hx of Aortic aneursym Currently 4.5cm Patient needs repeat CT imaging every 6 months Patient should obtain repeat imaging in July 2016 to assess size Status: Chronic Poor nutrition- resoleved Hyponatremia - resolved Prophylactic measure Heparin 5000 units q8h A and D ointment to apply to [employer] Social Work- Patient is homeless. Will follow up to see which services are available. Thank you, Marvel Gomez PGY1 <Jose Wiggins - Last Filed: 03/30/16 08:00> Objective - Vital Signs/Intake and Output Vital Signs (last 24 hours): Temp Pulse Resp BP Pulse Ox 98.6 F 86 20 110/70 97 03/29/16 15:10 03/29/16 16:05 03/29/16 15:10 03/29/16 16:05 03/29/16 16:05 Intake and Output: 03/29/16 03/30/16 18:59 06:59 Intake Total 500 Output Total 400 Balance 100 - Medications Medications: Current Medications Acetaminophen (Tylenol 325mg Tab) 650 mg PO Q6 PRN PRN Reason: Pain, Mild (1-3) Docusate Sodium (Colace) 100 mg PO DAILY [facility] Last Admin: 03/29/16 10:53 Dose: Not Given Ferric Sodium Gluconate Complex (Ferrlecit) 125 mg IVPB DAILY [facility] Stop: 03/30/16 10:01 Last Admin: 03/29/16 10:52 Dose: 125 mg Heparin Sodium (Porcine) (Heparin) 5,000 units SC Q8 [facility] Last Admin: 03/29/16 21:28 Dose: 5,000 units Oxycodone/Acetaminophen (Percocet 5/325 Mg Tab) 1 tab PO Q6H PRN PRN Reason: Pain, moderate (4-7) Stop: 04/01/16 10:24 Last Admin: 03/29/16 18:00 Dose: 1 tab Polyethylene Glycol (Miralax) 17 gm PO BID [facility] Last Admin: 03/29/16 21:23 Dose: Not Given Vitamin A (Vitamin A & D Oint Ud Foilpak) 1 ea TOP Q8H [facility] Last Admin: 03/29/16 17:00 Dose: 1 ea - Labs Labs: 03/27/16 06:40 03/27/16 17:24 Attending/Attestation - Attestation I have personally seen and examined this patient.: Yes I have fully participated in the care of the patient.: Yes I have reviewed all pertinent clinical information, including history, physical exam and plan: Yes Notes (Text): 03/29/16 21:42 patient was seen and examined at bedside with the resident Still complains of the pain in the right hip We will change his pain medication to Percocet We will continue physical therapy Discharge planning when the patient is more stable
[2016-03-30] MEDS: Vitamins A & D Oint UD Foilpak TOP SCH ×3 (00:12→21:38)
[2016-03-30] MEDS: Oxycodone/Acetaminophen 5/325 mg Tab PO PRN ×3 (06:04→17:50)
[2016-03-30 07:17] LABS: ALBUMIN 3.5 g/dL (3.5-5.0)
[2016-03-30 07:20] LABS: ALB/GLOB RATIO 0.9 (1.0-2.1); AST/SGOT 46 U/L (17-59); GFR AFRICAN-AMERICAN > 60; GFR NON-AFRICAN AMERICAN > 60
[2016-03-30 07:21] LABS: ALT/SGPT 42 U/L (21-72); BLOOD UREA NITROGEN 18 mg/dL (9-20); CALCIUM 8.7 mg/dl (8.6-10.4)
[2016-03-30 07:32] LABS: BASO % 1.1 % (0.0-2.0); EOS % 0.4 % (0.0-4.0); HEMOGLOBIN 10.7 g/dL (12.0-18.0); LYMPH # 1.5 K/uL (1.0-4.3); LYMPH % 33.5 % (20.0-40.0); MEAN CELL VOLUME 88.8 fL (80.0-94.0); MEAN CORPUSCULAR HEMOGLOBIN 30.3 pg (27.0-31.0); MEAN CORPUSCULAR HGB CONC 34.1 g/dL (33.0-37.0); MEAN PLATELET VOLUME 8.5 fL (7.2-11.7); MONO # 0.7 K/uL (0.0-0.8); MONO % 16.7 % (0.0-10.0); NEUT # 2.1 K/uL (1.8-7.0); NEUT % 48.3 % (50.0-75.0); NRBC % 0.2 % (0.0-2.0); RBC 3.55 Mil/uL (4.40-5.90); RED CELL DISTRIBUTION WIDTH 17.7 % (11.5-14.5); WHITE BLOOD COUNT 4.4 K/uL (4.8-10.8)
[2016-03-30] MEDS: Ferric Sodium Gluconat Complex 62.5 mg/5 ml Vial IVPB SCH (10:27)
[2016-03-30] MEDS: POLYETHYLENE GLYCOL 3350 17 GM/Dose PACKET PO SCH ×2 (10:28→17:49)
--- NOTE | 2016-03-30 17:47 | CP.PCM.PN ---
<Marvel Gomez - Last Filed: 03/30/16 17:50> Subjective - Date & Time of Evaluation Date of Evaluation: 03/30/16 Time of Evaluation: 07:20 - Subjective Subjective: Patient seen and examined at the bedside. No acute distress. The patient is reporting continued right sided leg pain consistent with his baseline. Per physical therapy, patient able to sit in chair out of bed to chair with much assistance. Yesterday, pt. c/o fever, chills, headache, cough, abdominal pain. Pt. denies chest pain, palpitations, SOB, nausea, vomiting, or diarrhea. Pt. also complained of worsening LLQ pain on coughing. After increasing his pain medication, the pt. still presents with the same complaints and level of pain. Objective - Vital Signs/Intake and Output Vital Signs (last 24 hours): Temp Pulse Resp BP Pulse Ox 98.4 F 75 20 113/69 97 03/30/16 16:12 03/30/16 16:12 03/30/16 16:12 03/30/16 16:12 03/30/16 16:12 Intake and Output: 03/30/16 03/30/16 06:59 18:59 Intake Total 200 300 Output Total 350 Balance -150 300 - Medications Medications: Current Medications Acetaminophen (Tylenol 325mg Tab) 650 mg PO Q6 PRN PRN Reason: Pain, Mild (1-3) Docusate Sodium (Colace) 100 mg PO DAILY [facility] Last Admin: 03/30/16 10:28 Dose: Not Given Oxycodone/Acetaminophen (Percocet 5/325 Mg Tab) 1 tab PO Q6H PRN PRN Reason: Pain, moderate (4-7) Stop: 04/01/16 10:24 Last Admin: 03/30/16 12:38 Dose: 1 tab Polyethylene Glycol (Miralax) 17 gm PO BID [facility] Last Admin: 03/30/16 10:28 Dose: Not Given Vitamin A (Vitamin A & D Oint Ud Foilpak) 1 ea TOP Q8H [facility] Last Admin: 03/30/16 10:27 Dose: 1 ea - Labs Labs: 03/30/16 06:59 03/30/16 06:59 - Constitutional Appears: Non-toxic, No Acute Distress, Chronically Ill - Head Exam Head Exam: ATRAUMATIC, NORMOCEPHALIC - Eye Exam Eye Exam: EOMI - ENT Exam ENT Exam: Mucous Membranes Moist - Neck Exam Neck Exam: Full ROM. absent: Lymphadenopathy - Respiratory Exam Respiratory Exam: Clear to Ausculation Bilateral, NORMAL BREATHING PATTERN - Cardiovascular Exam Cardiovascular Exam: REGULAR RHYTHM, RRR. absent: JVD - GI/Abdominal Exam GI & Abdominal Exam: Soft, Tenderness, Normal Bowel Sounds - Extremities Exam Extremities Exam: absent: Joint Swelling, Pedal Edema - Neurological Exam Neurological Exam: Alert, Awake - Psychiatric Exam Psychiatric exam: Agitated - Skin Skin Exam: Dry, Intact Assessment and Plan - Assessment and Plan (Free Text) Assessment: 71M with pmh of aortic aneurysm, Right hip prosthesis, and small inguinal hernia. All of which are chronic outpatient concerns. On his initial presentation, the pt. had a myriad of problems including possible pneumonia, abdominal pain and difficulty walking. Plan: Abdominal Pain abd/pelv CT ordered 03/19/16- Results - Aneurysmal dilatation of ascending thoracic aorta;Currently 4.5cm Patient needs repeat CT imaging every 6 months (July 2016) atelectasis vs scarring changes of lung bases b/l with left greater than right; constipation; small inguinal hernia with unobstructed bowel loop involvement; acetabular protrusion at site of right hip replacement Percocet 5/325 Q6 prn Abnormal Chest X-Ray - findings consisitent with CT Sacral decub Wound care following -Recommending medihoney covered with bordered telfa dressing to right lower buttocks stage 2 pressure ulcer daily. MUST REPOSITION FREQUENTLY TO OPTIMIZE OFFLOADING OF ALL PRESSURE POINTS. PATIENT CONTINUES TO BE AT RISK FOR SKIN BREAKDOWN. Pt is OOB to chair with help from PT daily Order placed for turning patient Q2H Wedge pillow placed by nursing to offload pressure off of sacrum Cristian Risk Assessment 16 (at risk) Gait instability Per Ortho: No acute fracture noted on imaging. No acute ortho intervention at this time. Pt can follow up outpatient. PT/OT recommendations. Pt will be counseled on following up with appointments. Patient non weight bearing at this time Hip/Pelvis XRAY: s/p right hip arthroplasty. Suspicious for displacement or migration of prosthesis superiorly. Heterogenous sclerotic changes at right pelvic bones of uncertain etiology. 03/12/2016 checking imaging of the lower extremity PT eval- TOLERATING OOB DESPITE CONSTANT R THIGH PAIN COMPLAINTS. PATIENT W/ IMPROVED CARRY OVER OF RLE NWB, WILL CONT TO PROGRESS GAIT. PATIENT NEEDS TO BE OOB TO CHAIR DAILY CLEARED TO BE ASSISTED BY NURSING Prophylactic measure Heparin 5000 units q8h A and D ointment to apply to [facility] Social Work- Patient is homeless. Will follow up to see which services are available. Thank you, Marvelkassi Gomez PGY1 <Jose Wiggins - Last Filed: 03/30/16 18:19> Objective - Vital Signs/Intake and Output Vital Signs (last 24 hours): Temp Pulse Resp BP Pulse Ox 98.4 F 75 20 113/69 97 03/30/16 16:12 03/30/16 16:12 03/30/16 16:12 03/30/16 16:12 03/30/16 16:12 Intake and Output: 03/30/16 03/30/16 06:59 18:59 Intake Total 200 300 Output Total 350 Balance -150 300 - Medications Medications: Current Medications Acetaminophen (Tylenol 325mg Tab) 650 mg PO Q6 PRN PRN Reason: Pain, Mild (1-3) Docusate Sodium (Colace) 100 mg PO DAILY [facility] Last Admin: 03/30/16 10:28 Dose: Not Given Oxycodone/Acetaminophen (Percocet 5/325 Mg Tab) 1 tab PO Q6H PRN PRN Reason: Pain, moderate (4-7) Stop: 04/01/16 10:24 Last Admin: 03/30/16 17:50 Dose: 1 tab Polyethylene Glycol (Miralax) 17 gm PO BID [facility] Last Admin: 03/30/16 17:49 Dose: Not Given Vitamin A (Vitamin A & D Oint Ud Foilpak) 1 ea TOP Q8H [facility] Last Admin: 03/30/16 10:27 Dose: 1 ea - Labs Labs: 03/30/16 06:59 03/30/16 06:59 Attending/Attestation - Attestation I have personally seen and examined this patient.: Yes I have fully participated in the care of the patient.: Yes I have reviewed all pertinent clinical information, including history, physical exam and plan: Yes Notes (Text): 03/30/16 18:08 patient was seen and examined at bedside with the resident Complains of right hip pain Continue pain management-Continue physical therapy continue local wound care for decubitus ulcer Discussed with the medical supervisor and the nursing staff 03/30/16 18:18
[2016-03-31] MEDS: Vitamins A & D Oint UD Foilpak TOP SCH ×3 (00:08→17:20)
[2016-03-31] MEDS: Oxycodone/Acetaminophen 5/325 mg Tab PO PRN ×3 (01:31→14:45)
[2016-03-31] MEDS: POLYETHYLENE GLYCOL 3350 17 GM/Dose PACKET PO SCH ×2 (09:22→21:25)
--- NOTE | 2016-03-31 14:10 | CP.PCM.PN ---
<Makayla Amaya - Last Filed: 03/31/16 14:02> Subjective - Date & Time of Evaluation Date of Evaluation: 03/31/16 Time of Evaluation: 13:00 - Subjective Subjective: PGY1 Medicine Note for Dr. Wiggins Patient seen and examined at bedside. Patient had no acute events overnight and was in NAD as per nursing. he continues to complain of weakness and pain in his R hip to his RLL. Patient has difficulty ambulating alone but as per PT he is improving and tolerating being OOB. Patient complains of headaches, cough, adn diffuse abdominal pain which is worse in his suprapubic area which he associates with his inguinal hernia. Patient denied fever, chills, chest pain, palpitations, SOB, cough, dysuria, nausea, vomiting, diarrhea. Objective - Vital Signs/Intake and Output Vital Signs (last 24 hours): Temp Pulse Resp BP Pulse Ox 97.6 F 78 20 120/71 98 03/31/16 08:00 03/31/16 08:00 03/31/16 08:00 03/31/16 08:00 03/31/16 08:00 Intake and Output: 03/31/16 03/31/16 06:59 18:59 Intake Total 150 Output Total 300 Balance -150 - Medications Medications: Current Medications Acetaminophen (Tylenol 325mg Tab) 650 mg PO Q6 PRN PRN Reason: Pain, Mild (1-3) Docusate Sodium (Colace) 100 mg PO DAILY [facility] Last Admin: 03/31/16 09:22 Dose: 100 mg Heparin Sodium (Porcine) (Heparin) 5,000 units SC Q8 [facility] Last Admin: 03/31/16 05:53 Dose: 5,000 units Oxycodone/Acetaminophen (Percocet 5/325 Mg Tab) 1 tab PO Q6H PRN PRN Reason: Pain, moderate (4-7) Stop: 04/01/16 10:24 Last Admin: 03/31/16 09:27 Dose: 1 tab Oxycodone/Acetaminophen (Percocet 5/325 Mg Tab) 2 tab PO Q6H PRN PRN Reason: Pain, severe (8-10) Stop: 04/03/16 13:04 Polyethylene Glycol (Miralax) 17 gm PO BID [facility] Last Admin: 03/31/16 09:22 Dose: Not Given Vitamin A (Vitamin A & D Oint Ud Foilpak) 1 ea TOP Q8H [facility] Last Admin: 03/31/16 09:07 Dose: 1 ea - Labs Labs: 03/30/16 06:59 03/30/16 06:59 - Constitutional Appears: No Acute Distress, Chronically Ill - Head Exam Head Exam: ATRAUMATIC, NORMOCEPHALIC - Eye Exam Eye Exam: Normal appearance - ENT Exam ENT Exam: Mucous Membranes Moist - Neck Exam Neck Exam: Normal Inspection. absent: Tenderness - Respiratory Exam Respiratory Exam: Clear to Ausculation Bilateral, NORMAL BREATHING PATTERN. absent: Accessory Muscle Use, Rales, Rhonchi, Wheezes, Respiratory Distress - Cardiovascular Exam Cardiovascular Exam: REGULAR RHYTHM, RRR, +S1, +S2. absent: JVD - GI/Abdominal Exam GI & Abdominal Exam: Soft, Tenderness (diffuse to palpation), Normal Bowel Sounds. absent: Firm, Guarding, Rigid - Extremities Exam Extremities Exam: absent: Joint Swelling, Pedal Edema - Neurological Exam Neurological Exam: Alert, Awake - Skin Skin Exam: Dry, Intact Assessment and Plan - Assessment and Plan (Free Text) Assessment: 71M PMHx aortic aneurysm, R hip prosthesis, and small inguinal hernia admitted for pneumonia, abdominal pain and difficulty walking. 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 MUST REPOSITION FREQUENTLY TO OPTIMIZE OFFLOADING OF ALL PRESSURE POINTS. PATIENT CONTINUES TO BE AT RISK FOR SKIN BREAKDOWN. Pt is OOB to chair with help from PT daily Order placed for turning patient Q2H Wedge pillow placed by nursing to offload pressure off of sacrum Cristian Risk Assessment 16 (at risk) Gait instability Per Ortho: No acute fracture noted on imaging. No acute ortho intervention at this time. Pt can follow up outpatient. PT/OT recommendations. Pt will be counseled on following up with appointments. Patient non weight bearing at this time Hip/Pelvis XRAY: s/p right hip arthroplasty. Suspicious for displacement or migration of prosthesis superiorly. Heterogenous sclerotic changes at right pelvic bones of uncertain etiology. 03/12/2016 checking imaging of the lower extremity PT eval- TOLERATING OOB DESPITE CONSTANT R THIGH PAIN COMPLAINTS. PATIENT W/ IMPROVED CARRY OVER OF RLE NWB, WILL CONT TO PROGRESS GAIT. PATIENT NEEDS TO BE OOB TO CHAIR DAILY CLEARED TO BE ASSISTED BY NURSING Constipation Likely secondary to pain medication regimen Colace 100mg PO daily Miralax 17gm PO BID UTI Resolved Urine culture 03/18 negative Urine culture 03/14 + E. Faecalis Monitor symptomatically Prophylactic measure Heparin 5000 units SC Q8H A and D ointment TOP Q8H Social Work- Patient is homeless. Will follow up to see which services are available. No need for daily labs Labs Q3Days Plan discussed with Dr. Rosalie Amaya PGY1 <Jose Wiggins - Last Filed: 03/31/16 17:36> Objective - Vital Signs/Intake and Output Vital Signs (last 24 hours): Temp Pulse Resp BP Pulse Ox 97.6 F 78 20 120/71 98 03/31/16 08:00 03/31/16 08:00 03/31/16 08:00 03/31/16 08:00 03/31/16 08:00 Intake and Output: 03/31/16 03/31/16 06:59 18:59 Intake Total 150 500 Output Total 300 Balance -150 500 - Medications Medications: Current Medications Acetaminophen (Tylenol 325mg Tab) 650 mg PO Q6 PRN PRN Reason: Pain, Mild (1-3) Docusate Sodium (Colace) 100 mg PO DAILY [facility] Last Admin: 03/31/16 09:22 Dose: 100 mg Heparin Sodium (Porcine) (Heparin) 5,000 units SC Q8 [facility] Last Admin: 03/31/16 14:38 Dose: 5,000 units Oxycodone/Acetaminophen (Percocet 5/325 Mg Tab) 1 tab PO Q6H PRN PRN Reason: Pain, moderate (4-7) Stop: 04/01/16 10:24 Last Admin: 03/31/16 09:27 Dose: 1 tab Oxycodone/Acetaminophen (Percocet 5/325 Mg Tab) 2 tab PO Q6H PRN PRN Reason: Pain, severe (8-10) Stop: 04/03/16 13:04 Last Admin: 03/31/16 14:45 Dose: 2 tab Polyethylene Glycol (Miralax) 17 gm PO BID [facility] Last Admin: 03/31/16 09:22 Dose: Not Given Vitamin A (Vitamin A & D Oint Ud Foilpak) 1 ea TOP Q8H [facility] Last Admin: 03/31/16 17:20 Dose: 1 ea - Labs Labs: 03/30/16 06:59 03/30/16 06:59 Attending/Attestation - Attestation I have personally seen and examined this patient.: Yes I have fully participated in the care of the patient.: Yes I have reviewed all pertinent clinical information, including history, physical exam and plan: Yes Notes (Text): 03/31/16 17:35 Patient was seen and examined at bedside with the resident Patient still complains of pain in the right leg We will try to encourage patient to get out of bed and ambulate I discussed with physical therapist We will increase pain medication for better pain management
[2016-04-01] MEDS: Vitamins A & D Oint UD Foilpak TOP SCH ×3 (00:01→17:18)
[2016-04-01] MEDS: Oxycodone/Acetaminophen 5/325 mg Tab PO PRN (07:01)
[2016-04-01] MEDS: POLYETHYLENE GLYCOL 3350 17 GM/Dose PACKET PO SCH ×2 (11:14→18:57)
--- NOTE | 2016-04-01 16:20 | CP.PCM.PN ---
<Gabriela Omer - Last Filed: 04/01/16 16:32> Subjective - Date & Time of Evaluation Date of Evaluation: 04/01/16 Time of Evaluation: 16:20 - Subjective Subjective: Medicine progress note Patient seen at bedside. Still complaining of right lower extremity pain. He reports no PT treatment today. He denies any fever/chills. He just feels overall weak. Objective - Vital Signs/Intake and Output Vital Signs (last 24 hours): Temp Pulse Resp BP Pulse Ox 97.9 F 79 20 112/72 99 04/01/16 07:36 04/01/16 07:36 04/01/16 07:36 04/01/16 07:36 04/01/16 07:36 Intake and Output: 04/01/16 04/01/16 06:59 18:59 Intake Total 200 Output Total 300 Balance -100 - Medications Medications: Current Medications Acetaminophen (Tylenol 325mg Tab) 650 mg PO Q6 PRN PRN Reason: Pain, Mild (1-3) Docusate Sodium (Colace) 100 mg PO DAILY [facility] Last Admin: 04/01/16 11:13 Dose: 100 mg Heparin Sodium (Porcine) (Heparin) 5,000 units SC Q8 [facility] Last Admin: 04/01/16 13:17 Dose: 5,000 units Oxycodone/Acetaminophen (Percocet 5/325 Mg Tab) 2 tab PO Q6H PRN PRN Reason: Pain, severe (8-10) Stop: 04/03/16 13:04 Last Admin: 03/31/16 14:45 Dose: 2 tab Polyethylene Glycol (Miralax) 17 gm PO BID [facility] Last Admin: 04/01/16 11:14 Dose: Not Given Vitamin A (Vitamin A & D Oint Ud Foilpak) 1 ea TOP Q8H [facility] Last Admin: 04/01/16 08:00 Dose: 1 ea - Labs Labs: 03/30/16 06:59 03/30/16 06:59 - Constitutional Appears: Cachectic - Head Exam Head Exam: ATRAUMATIC, NORMAL INSPECTION, NORMOCEPHALIC - Eye Exam Eye Exam: EOMI, Normal appearance - ENT Exam ENT Exam: Mucous Membranes Moist - Respiratory Exam Respiratory Exam: Clear to Ausculation Bilateral, NORMAL BREATHING PATTERN. absent: Rales, Rhonchi, Wheezes - Cardiovascular Exam Cardiovascular Exam: REGULAR RHYTHM. absent: Murmur - GI/Abdominal Exam GI & Abdominal Exam: Soft. absent: Guarding, Tenderness - Extremities Exam Additional comments: Limited ROM and pain with manipulation of the right lower extremity. atrophic muscles of bilateral lower extremity. No edema. Assessment and Plan - Assessment and Plan (Free Text) Assessment: Abdominal Pain Currently only complaining of hip pain. abd/pelv CT ordered 03/19/16- Results - Aneurysmal dilatation of ascending thoracic aorta;Currently 4.5cm Patient needs repeat CT imaging every 6 months (July 2016) atelectasis vs scarring changes of lung bases b/l with left greater than right; constipation; small inguinal hernia with unobstructed bowel loop involvement; acetabular protrusion at site of right hip replacement Percocet 5/325 1tab PO Q6 prn pain moderate Percocet 5/325mg 2tab PO Q6 prn pain severe Sacral decub Wound care following -Recommending medihoney covered with bordered telfa dressing to right lower buttocks stage 2 pressure ulcer daily. MUST REPOSITION FREQUENTLY TO OPTIMIZE OFFLOADING OF ALL PRESSURE POINTS. PATIENT CONTINUES TO BE AT RISK FOR SKIN BREAKDOWN. Pt is OOB to chair with help from PT daily Order placed for turning patient Q2H Wedge pillow placed by nursing to offload pressure off of sacrum Cristian Risk Assessment 16 (at risk) Gait instability Per Ortho: No acute fracture noted on imaging. No acute ortho intervention at this time. Pt can follow up outpatient. PT/OT recommendations. Pt will be counseled on following up with appointments. Patient non weight bearing at this time Hip/Pelvis XRAY: s/p right hip arthroplasty. Suspicious for displacement or migration of prosthesis superiorly. Heterogenous sclerotic changes at right pelvic bones of uncertain etiology. 03/12/2016 checking imaging of the lower extremity PT eval- TOLERATING OOB DESPITE CONSTANT R THIGH PAIN COMPLAINTS. PATIENT W/ IMPROVED CARRY OVER OF RLE NWB, WILL CONT TO PROGRESS GAIT. PATIENT NEEDS TO BE OOB TO CHAIR DAILY CLEARED TO BE ASSISTED BY NURSING UTI Resolved Urine culture 03/18 negative Urine culture 03/14 + E. Faecalis Monitor symptomatically Prophylactic measure Heparin 5000 units SC Q8H A and D ointment TOP Q8H Social Work- Patient is homeless. Will follow up to see which services are available. No need for daily labs Labs Q3Days <Jose Wiggins M - Last Filed: 04/01/16 16:43> Objective - Vital Signs/Intake and Output Vital Signs (last 24 hours): Temp Pulse Resp BP Pulse Ox 97.9 F 79 20 112/72 99 04/01/16 07:36 04/01/16 07:36 04/01/16 07:36 04/01/16 07:36 04/01/16 07:36 Intake and Output: 04/01/16 04/01/16 06:59 18:59 Intake Total 200 Output Total 300 Balance -100 - Medications Medications: Current Medications Acetaminophen (Tylenol 325mg Tab) 650 mg PO Q6 PRN PRN Reason: Pain, Mild (1-3) Docusate Sodium (Colace) 100 mg PO DAILY [facility] Last Admin: 04/01/16 11:13 Dose: 100 mg Heparin Sodium (Porcine) (Heparin) 5,000 units SC Q8 [facility] Last Admin: 04/01/16 13:17 Dose: 5,000 units Oxycodone/Acetaminophen (Percocet 5/325 Mg Tab) 2 tab PO Q6H PRN PRN Reason: Pain, severe (8-10) Stop: 04/03/16 13:04 Last Admin: 03/31/16 14:45 Dose: 2 tab Polyethylene Glycol (Miralax) 17 gm PO BID [facility] Last Admin: 04/01/16 11:14 Dose: Not Given Vitamin A (Vitamin A & D Oint Ud Foilpak) 1 ea TOP Q8H [facility] Last Admin: 04/01/16 08:00 Dose: 1 ea - Labs Labs: 03/30/16 06:59 03/30/16 06:59 Attending/Attestation - Attestation I have personally seen and examined this patient.: Yes I have fully participated in the care of the patient.: Yes I have reviewed all pertinent clinical information, including history, physical exam and plan: Yes Notes (Text): 04/01/16 16:40 Patient was seen and examined at bedside Still complains of inguinal pain at the site of hernia Also complains of right hip pain We'll obtain an abdominal ultrasound because of persistent abdominal/inguinal pain to rule out obstruction Continue pain management with Percocet and try to ambulate the patient Discussed the plan of care with the resident
--- NOTE | 2016-04-02 03:32 | CP.PCM.PN ---
<TrinitySukhwinder - Last Filed: 04/02/16 08:41> Subjective - Date & Time of Evaluation Date of Evaluation: 04/02/16 Time of Evaluation: 12:55 - Subjective Subjective: PGY1 Medicine progress note Patient seen and examined at bedside. No overnight events per nursing, however pt is generally weak. Patient continues to c/o pain at the R lower extremity. He reports his abdominal is tolerable on his current medication regimen. Patient reports a +BM today, and he is urinating well. Denies f/c, headache, chest pain, SOB, or any other acute complaints. Objective - Vital Signs/Intake and Output Vital Signs (last 24 hours): Temp Pulse Resp BP Pulse Ox 98.4 F 78 20 117/71 98 04/02/16 00:00 04/02/16 00:00 04/02/16 00:00 04/02/16 00:00 04/02/16 00:00 Intake and Output: 04/01/16 04/02/16 18:59 06:59 Intake Total 400 Output Total 550 Balance -150 - Medications Medications: Current Medications Acetaminophen (Tylenol 325mg Tab) 650 mg PO Q6 PRN PRN Reason: Pain, Mild (1-3) Docusate Sodium (Colace) 100 mg PO DAILY ON LICENSE OF [facility] Last Admin: 04/01/16 11:13 Dose: 100 mg Heparin Sodium (Porcine) (Heparin) 5,000 units SC Q8 ON LICENSE OF [facility] Last Admin: 04/01/16 22:13 Dose: 5,000 units Oxycodone/Acetaminophen (Percocet 5/325 Mg Tab) 2 tab PO Q6H PRN PRN Reason: Pain, severe (8-10) Stop: 04/03/16 13:04 Last Admin: 03/31/16 14:45 Dose: 2 tab Polyethylene Glycol (Miralax) 17 gm PO BID ON LICENSE OF [facility] Last Admin: 04/01/16 18:57 Dose: Not Given Vitamin A (Vitamin A & D Oint Ud Foilpak) 1 ea TOP Q8H ON LICENSE OF [facility] Last Admin: 04/01/16 17:18 Dose: 1 ea - Labs Labs: 03/30/16 06:59 03/30/16 06:59 - Constitutional Appears: No Acute Distress - Head Exam Head Exam: ATRAUMATIC, NORMAL INSPECTION - Eye Exam Eye Exam: EOMI, Normal appearance - ENT Exam ENT Exam: Mucous Membranes Moist - Respiratory Exam Respiratory Exam: Clear to Ausculation Bilateral, NORMAL BREATHING PATTERN. absent: Rales - Cardiovascular Exam Cardiovascular Exam: REGULAR RHYTHM, +S1, +S2 - GI/Abdominal Exam GI & Abdominal Exam: Soft. absent: Tenderness - Extremities Exam Extremities Exam: absent: Pedal Edema Additional comments: R leg pain with ROM testing. Limited VERONICA Atrophic muscles of bilateral lower extremity. Assessment and Plan - Assessment and Plan (Free Text) Plan: Abdominal Pain f/u abdominal u/s (ordered 04/01) - not performed as of yet -Abd/pelv CT ordered 03/19/16- Results - Aneurysmal dilatation of ascending thoracic aorta;Currently 4.5cm Patient needs repeat CT imaging every 6 months (July 2016) atelectasis vs scarring changes of lung bases b/l with left greater than right; constipation; small inguinal hernia with unobstructed bowel loop involvement; acetabular protrusion at site of right hip replacement Percocet 5/325 1tab PO Q6 prn pain moderate (added back on 04/02) Percocet 5/325mg 2tab PO Q6 prn pain severe Sacral decub Wound care following -Recommending medihoney covered with bordered telfa dressing to right lower buttocks stage 2 pressure ulcer daily. MUST REPOSITION FREQUENTLY TO OPTIMIZE OFFLOADING OF ALL PRESSURE POINTS. PATIENT CONTINUES TO BE AT RISK FOR SKIN BREAKDOWN. Pt is OOB to chair with help from PT daily Order placed for turning patient Q2H Wedge pillow placed by nursing to offload pressure off of sacrum Cristian Risk Assessment 16 (at risk) Gait instability Per Ortho: No acute fracture noted on imaging. No acute ortho intervention at this time. Pt can follow up outpatient. PT/OT recommendations. Pt will be counseled on following up with appointments. Patient non weight bearing at this time Hip/Pelvis XRAY: s/p right hip arthroplasty. Suspicious for displacement or migration of prosthesis superiorly. Heterogenous sclerotic changes at right pelvic bones of uncertain etiology. 03/12/2016 checking imaging of the lower extremity PT eval- TOLERATING OOB DESPITE CONSTANT R THIGH PAIN COMPLAINTS. PATIENT W/ IMPROVED CARRY OVER OF RLE NWB, WILL CONT TO PROGRESS GAIT. PATIENT NEEDS TO BE OOB TO CHAIR DAILY, CLEARED TO BE ASSISTED BY NURSING PT recs --> LAXMI UTI - Resolved. Monitor. Urine culture 1/7 negative Urine culture 1/3 + E. Faecalis Monitor symptomatically Prophylactic measure Labs Q3Days Heparin 5000 units SC Q8H A and D ointment TOP Q8H Social Work- Patient is homeless. Will follow up to see which services are available. <RosalieJose M - Last Filed: 04/02/16 16:07> Objective - Vital Signs/Intake and Output Vital Signs (last 24 hours): Temp Pulse Resp BP Pulse Ox 98 F 73 20 123/75 97 04/02/16 10:17 04/02/16 10:17 04/02/16 10:17 04/02/16 10:17 04/02/16 10:17 Intake and Output: 04/02/16 04/02/16 06:59 18:59 Intake Total 400 180 Output Total 550 Balance -150 180 - Medications Medications: Current Medications Acetaminophen (Tylenol 325mg Tab) 650 mg PO Q6 PRN PRN Reason: Pain, Mild (1-3) Docusate Sodium (Colace) 100 mg PO DAILY ON [facility] OF [facility] Last Admin: 04/02/16 10:00 Dose: Not Given Heparin Sodium (Porcine) (Heparin) 5,000 units SC Q8 ON [facility] OF [facility] Last Admin: 04/02/16 05:50 Dose: 5,000 units Oxycodone/Acetaminophen (Percocet 5/325 Mg Tab) 2 tab PO Q6H PRN PRN Reason: Pain, severe (8-10) Stop: 04/03/16 13:04 Last Admin: 04/02/16 08:33 Dose: 2 tab Oxycodone/Acetaminophen (Percocet 5/325 Mg Tab) 1 tab PO Q6H PRN PRN Reason: Pain, moderate (4-7) Stop: 04/05/16 08:51 Polyethylene Glycol (Miralax) 17 gm PO BID ON [facility] OF [facility] Last Admin: 04/02/16 10:00 Dose: Not Given Vitamin A (Vitamin A & D Oint Ud Foilpak) 1 ea TOP Q8H ON [facility] OF [facility] Last Admin: 04/02/16 08:35 Dose: 1 ea - Labs Labs: 04/02/16 10:01 04/02/16 10:01 Attending/Attestation - Attestation I have personally seen and examined this patient.: Yes I have fully participated in the care of the patient.: Yes I have reviewed all pertinent clinical information, including history, physical exam and plan: Yes Notes (Text): 04/02/16 14:41 Patient was seen and examined at bedside Patient still complains of for lower abdominal and inguinal pain but it is improving Follow-up report of the ultrasound of the abdomen Continue pain management Encourage ambulation Continue physical therapy daily Discharge planning when the patient is stronger and able to ambulate
[2016-04-02] MEDS: Oxycodone/Acetaminophen 5/325 mg Tab PO PRN ×2 (08:33→19:08)
[2016-04-02] MEDS: Vitamins A & D Oint UD Foilpak TOP SCH ×3 (08:35→19:09)
[2016-04-02] MEDS: POLYETHYLENE GLYCOL 3350 17 GM/Dose PACKET PO SCH ×3 (10:00→19:10)
[2016-04-02 10:06] LABS: HEMOGLOBIN 11.2 g/dL (12.0-18.0); MEAN CELL VOLUME 90.5 fL (80.0-94.0); MEAN CORPUSCULAR HEMOGLOBIN 30.2 pg (27.0-31.0); MEAN CORPUSCULAR HGB CONC 33.3 g/dL (33.0-37.0); MEAN PLATELET VOLUME 8.2 fL (7.2-11.7); RBC 3.71 Mil/uL (4.40-5.90); RED CELL DISTRIBUTION WIDTH 18.4 % (11.5-14.5); WHITE BLOOD COUNT 3.1 K/uL (4.8-10.8)
[2016-04-02 10:28] LABS: BLOOD UREA NITROGEN 15 mg/dL (9-20); CALCIUM 8.5 mg/dl (8.6-10.4); GFR AFRICAN-AMERICAN > 60; GFR NON-AFRICAN AMERICAN > 60; MAGNESIUM 1.5 mg/dL (1.6-2.3)
--- NOTE | 2016-04-02 15:44 | US ---
HISTORY: Pain COMPARISON: COMPARISON IS MADE TO THE PREVIOUS CT DATED 03/20/2016 TECHNIQUE: Sonographic evaluation of the abdomen. FINDINGS: LIVER: Measures 14.9 cm. Heterogeneous echogenicity of the liver parenchyma. No mass. No intrahepatic bile duct dilatation. Irregular border of the liver is again noted. GALLBLADDER: Gallstones are seen without evidence of acute cholecystitis. COMMON BILE DUCT: Measures 3.1 mm. No stones. No dilatation. PANCREAS: Unremarkable as visualized. No mass. No ductal dilatation. RIGHT KIDNEY: Measures 11.6 x 4.4 x 5.8cm. Normal echogenicity. No calculus, mass, or hydronephrosis. LEFT KIDNEY: Measures 10.9 x 5.1 x 5.2cm. Normal echogenicity. No calculus, mass, or hydronephrosis. SPLEEN: Normal in size and contour. No mass. AORTA: No aneurysmal dilatation. IVC: Unremarkable. OTHER FINDINGS: Trace ascites. IMPRESSION: Gallstone without evidence of acute cholecystitis. No evidence of hydronephrosis.
[2016-04-03] MEDS: Vitamins A & D Oint UD Foilpak TOP SCH ×3 (00:15→16:27)
[2016-04-03 08:17] LABS: HEMOGLOBIN 11.3 g/dL (12.0-18.0); MEAN CORPUSCULAR HGB CONC 33.7 g/dL (33.0-37.0); MEAN PLATELET VOLUME 8.1 fL (7.2-11.7); RBC 3.76 Mil/uL (4.40-5.90); RED CELL DISTRIBUTION WIDTH 18.4 % (11.5-14.5); WHITE BLOOD COUNT 3.3 K/uL (4.8-10.8)
[2016-04-03 08:30] LABS: GFR AFRICAN-AMERICAN > 60; GFR NON-AFRICAN AMERICAN > 60
[2016-04-03 08:31] LABS: BLOOD UREA NITROGEN 18 mg/dL (9-20); CALCIUM 8.1 mg/dl (8.6-10.4); MAGNESIUM 1.4 mg/dL (1.6-2.3)
[2016-04-03] MEDS: Oxycodone/Acetaminophen 5/325 mg Tab PO PRN ×2 (12:10→18:14)
--- NOTE | 2016-04-03 16:01 | RAD ---
PROCEDURE: Right Hip Radiographs. HISTORY: f/u protrusio COMPARISON: 03/12/2016 FINDINGS: BONES: Status post right hip arthroplasty. No osseous fracture. Ill-defined sclerosis about right acetabulum, uncertain significance. 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 SOFT TISSUES: Normal. OTHER FINDINGS: None. IMPRESSION: Status post right hip arthroplasty. Protrusio acetabula it. Superior migration of prosthesis. Sclerosis about the right acetabulum, nonspecific. No acute fracture. No change from recent examination of 03/12/2016.
--- NOTE | 2016-04-03 19:08 | CP.PCM.PN ---
<Jessie Luna DO - Last Filed: 04/03/16 19:04> Subjective - Date & Time of Evaluation Date of Evaluation: 04/03/16 Time of Evaluation: 08:50 - Subjective Subjective: PGY1 on Dr Santo's Service Patient seen and examined. Patient complaining of weakness in right leg. Patient also complaining of frequent urination. Patient reports good appetite. Objective - Vital Signs/Intake and Output Vital Signs (last 24 hours): Temp Pulse Resp BP Pulse Ox 98.3 F 73 20 108/69 97 04/03/16 08:33 04/03/16 10:33 04/03/16 08:33 04/03/16 08:33 04/03/16 08:33 Intake and Output: 04/03/16 04/04/16 18:59 06:59 Intake Total 240 Balance 240 - Medications Medications: Current Medications Acetaminophen (Tylenol 325mg Tab) 650 mg PO Q6 PRN PRN Reason: Pain, Mild (1-3) Docusate Sodium (Colace) 100 mg PO DAILY [facility] Last Admin: 04/03/16 12:11 Dose: Not Given Finasteride (Proscar) 5 mg PO DAILY [facility] Last Admin: 04/03/16 16:27 Dose: 5 mg Heparin Sodium (Porcine) (Heparin) 5,000 units SC Q8 [facility] Last Admin: 04/03/16 05:38 Dose: 5,000 units Oxycodone/Acetaminophen (Percocet 5/325 Mg Tab) 1 tab PO Q6H PRN PRN Reason: Pain, moderate (4-7) Stop: 04/05/16 08:51 Last Admin: 04/03/16 18:14 Dose: 1 tab Polyethylene Glycol (Miralax) 17 gm PO BID [facility] Last Admin: 04/02/16 19:10 Dose: Not Given Tamsulosin HCl (Flomax) 0.4 mg PO DAILY [facility] Last Admin: 04/03/16 16:27 Dose: 0.4 mg Vitamin A (Vitamin A & D Oint Ud Foilpak) 1 ea TOP Q8H [facility] Last Admin: 04/03/16 16:27 Dose: 1 ea - Labs Labs: 04/03/16 08:20 04/03/16 04:00 - Constitutional Appears: Non-toxic, No Acute Distress - Head Exam Head Exam: ATRAUMATIC, NORMOCEPHALIC - Eye Exam Eye Exam: EOMI - ENT Exam ENT Exam: Mucous Membranes Moist - Respiratory Exam Respiratory Exam: Clear to Ausculation Bilateral - Cardiovascular Exam Cardiovascular Exam: +S1, +S2 - GI/Abdominal Exam GI & Abdominal Exam: Soft. absent: Tenderness - Extremities Exam Additional comments: limited ROM RLE - Psychiatric Exam Psychiatric exam: Normal Affect - Skin Skin Exam: Dry, Warm Assessment and Plan - Assessment and Plan (Free Text) Assessment: Abdominal Pain Abdominal US: gallstone, no cholecystitis, no hydronephrosis. 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 MUST REPOSITION FREQUENTLY TO OPTIMIZE OFFLOADING OF ALL PRESSURE POINTS. PATIENT CONTINUES TO BE AT RISK FOR SKIN BREAKDOWN. Pt is OOB to chair with help from PT daily Order placed for turning patient Q2H Wedge pillow placed by nursing to offload pressure off of sacrum Cristian Risk Assessment 16 (at risk) Gait instability Per Ortho: No acute fracture noted on imaging. No acute ortho intervention at this time. Pt can follow up outpatient. PT/OT recommendations. Pt will be counseled on following up with appointments. patient can be toe touch weight bearing right leg at this time Hip/Pelvis XRAY: s/p right hip arthroplasty. Suspicious for displacement or migration of prosthesis superiorly. Heterogenous sclerotic changes at right pelvic bones of uncertain etiology. 03/12/2016 checking imaging of the lower extremity PT eval- TOLERATING OOB DESPITE CONSTANT R THIGH PAIN COMPLAINTS. PATIENT W/ IMPROVED CARRY OVER OF RLE NWB, WILL CONT TO PROGRESS GAIT. PATIENT NEEDS TO BE OOB TO CHAIR DAILY, CLEARED TO BE ASSISTED BY NURSING PT recs --> LAXMI UTI Urine culture 03/18 negative Urine culture 03/14 + E. Faecalis patient with complaint of frequency, will repeat UA and urine culture BPH starting flomax and finasteride Hypomagnesemia repleted 2g today, repeat Mg level tomorrow AM Prophylactic measure Labs Q3Days Heparin 5000 units SC Q8H A and D ointment TOP Q8H Social Work- Patient is homeless. Will follow up to see which services are available. <Lionel Santo - Last Filed: 06/19/16 07:39> Objective - Vital Signs/Intake and Output Vital Signs (last 24 hours): Temp Pulse Resp BP Pulse Ox 98.2 F 79 20 106/67 96 06/19/16 00:28 06/19/16 00:28 06/19/16 00:28 06/19/16 00:28 06/19/16 00:28 Intake and Output: 06/19/16 06/19/16 06:59 18:59 Intake Total 300 Balance 300 - Medications Medications: Current Medications Acetaminophen (Tylenol 325mg Tab) 650 mg PO Q6 PRN PRN Reason: Pain, Mild (1-3) Last Admin: 06/14/16 01:00 Dose: 650 mg Carbamide Peroxide (Debrox Ear Drops) 1 ml AU BID [facility] Last Admin: 06/18/16 18:25 Dose: 5 drop Clotrimazole (Lotrimin 1%) 0 gm TOP BID [facility] Last Admin: 06/18/16 18:26 Dose: 1 applic Docusate Sodium (Colace) 100 mg PO BID [facility] Last Admin: 06/18/16 18:25 Dose: 100 mg Famotidine (Pepcid) 20 mg PO BID [facility] Last Admin: 06/18/16 18:26 Dose: 20 mg Heparin Sodium (Porcine) (Heparin) 5,000 units SC Q8 [facility] Last Admin: 06/19/16 05:55 Dose: 5,000 units Magnesium Oxide (Mag-Ox) 400 mg PO BID [facility] Last Admin: 06/18/16 18:26 Dose: 400 mg Polyethylene Glycol (Miralax) 17 gm PO Q2D [facility] Last Admin: 06/18/16 14:43 Dose: Not Given Silver Sulfadiazine (Silvadene 1% 20 Gm) 0 ea TOP Q12H [facility] Last Admin: 06/19/16 04:28 Dose: 1 applic Sodium Chloride (Sodium Chloride Tab) 1 gm PO DAILY@1330 [facility] Last Admin: 06/18/16 14:40 Dose: 1 gm Tamsulosin HCl (Flomax) 0.8 mg PO DAILY [facility] Last Admin: 06/18/16 09:36 Dose: 0.8 mg Tramadol HCl (Ultram) 25 mg PO TID PRN PRN Reason: Pain, moderate (4-7) Last Admin: 06/18/16 09:35 Dose: 25 mg - Labs Labs: 06/19/16 06:49 06/19/16 06:49 Attending/Attestation - Attestation I have personally seen and examined this patient.: Yes I have fully participated in the care of the patient.: Yes I have reviewed all pertinent clinical information, including history, physical exam and plan: Yes
[2016-04-04 01:07] LABS: SQUAMOUS EPITHIAL 1 /hpf (0-5); URINE BILIRUBIN NEGATIVE (NEGATIVE); URINE CLARITY Clear (Clear); URINE COLOR Yellow (YELLOW); URINE GLUCOSE (UA) NORMAL (Normal); URINE LEUKOCYTE ESTERASE NEG Leu/uL (Negative); URINE NITRATE NEGATIVE (NEGATIVE); URINE PROTEIN NEGATIVE (NEGATIVE)
[2016-04-04 02:44] LABS: URINE BLOOD TRACE (NEGATIVE)
--- NOTE | 2016-04-04 07:21 | CP.PCM.PN ---
Addendum entered and electronically signed by Makayla Amaya 04/04/16 16:26: f/u urine cytology Discussed with Dr. Hansa Amaya PGY1 Original Note: <Makayla Amaya - Last Filed: 04/04/16 16:23> Subjective - Date & Time of Evaluation Date of Evaluation: 04/04/16 Time of Evaluation: 09:00 - Subjective Subjective: PGY1 Medicine Note for Dr. Santo Patient seen and examined at bedside. Patient had no acute events overnight. He continues to complain of weakness, stomach aches, and body aches. He reports walking around a little bit with the help of PT. Patient continues to complain of urinary frequency but denies dysuria. He continues to complain of RLE pain and denies fevers, chills, headache, chest pain, SOB, cough, nausea, vomiting, bowel complaints. Objective - Vital Signs/Intake and Output Vital Signs (last 24 hours): Temp Pulse Resp BP Pulse Ox 96.9 F L 79 18 131/70 98 04/04/16 00:00 04/04/16 00:15 04/04/16 00:00 04/04/16 00:00 04/04/16 00:00 Intake and Output: 04/04/16 04/04/16 06:59 18:59 Intake Total 500 Balance 500 - Medications Medications: Current Medications Acetaminophen (Tylenol 325mg Tab) 650 mg PO Q6 PRN PRN Reason: Pain, Mild (1-3) Docusate Sodium (Colace) 100 mg PO DAILY [facility] Last Admin: 04/03/16 12:11 Dose: Not Given Finasteride (Proscar) 5 mg PO DAILY [facility] Last Admin: 04/03/16 16:27 Dose: 5 mg Heparin Sodium (Porcine) (Heparin) 5,000 units SC Q8 [facility] Last Admin: 04/04/16 05:39 Dose: 5,000 units Oxycodone/Acetaminophen (Percocet 5/325 Mg Tab) 1 tab PO Q6H PRN PRN Reason: Pain, moderate (4-7) Stop: 04/05/16 08:51 Last Admin: 04/03/16 18:14 Dose: 1 tab Polyethylene Glycol (Miralax) 17 gm PO BID [facility] Last Admin: 04/02/16 19:10 Dose: Not Given Tamsulosin HCl (Flomax) 0.4 mg PO DAILY [facility] Last Admin: 04/03/16 16:27 Dose: 0.4 mg Vitamin A (Vitamin A & D Oint Ud Foilpak) 1 ea TOP Q8H [facility] Last Admin: 04/04/16 00:00 Dose: 1 ea - Labs Labs: 04/03/16 08:20 04/03/16 04:00 - Constitutional Appears: Non-toxic, No Acute Distress, Cachectic, Chronically Ill - Head Exam Head Exam: ATRAUMATIC - Eye Exam Eye Exam: Normal appearance. absent: Conjunctival injection, Scleral icterus - ENT Exam ENT Exam: Mucous Membranes Moist - Respiratory Exam Respiratory Exam: Clear to Ausculation Bilateral, NORMAL BREATHING PATTERN. absent: Accessory Muscle Use, Rales, Rhonchi, Wheezes, Respiratory Distress - Cardiovascular Exam Cardiovascular Exam: +S1, +S2 - GI/Abdominal Exam GI & Abdominal Exam: Soft, Tenderness (mild tenderness to palpation), Normal Bowel Sounds. absent: Distended, Firm, Guarding, Rigid - Extremities Exam Extremities Exam: Normal Inspection Additional comments: limited ROM RLE - Neurological Exam Neurological Exam: Alert, Awake - Psychiatric Exam Psychiatric exam: Normal Affect, Normal Mood - Skin Skin Exam: Dry, Intact, Warm Assessment and Plan - Assessment and Plan (Free Text) Assessment: 71yo M with no PMHx admitted for generalized weakness, abdominal pain, and dysuria. Plan: Abdominal Pain Abdominal US: gallstone, no cholecystitis, no hydronephrosis. trace ascites ( see full report) Abd/pelv CT ordered 03/19/16- Results - Aneurysmal dilatation of ascending thoracic aorta;Currently 4.5cm Patient needs repeat CT imaging every 6 months (July 2016) atelectasis vs scarring changes of lung bases b/l with left greater than right; constipation; small inguinal hernia with unobstructed bowel loop involvement; acetabular protrusion at site of right hip replacement Percocet 5/325 1tab PO Q6 prn pain moderate Tylenol 650mg PO Q6 PRN pain mild Sacral decub Wound care following -Recommending medihoney covered with bordered telfa dressing to right lower buttocks stage 2 pressure ulcer daily. MUST REPOSITION FREQUENTLY TO OPTIMIZE OFFLOADING OF ALL PRESSURE POINTS. PATIENT CONTINUES TO BE AT RISK FOR SKIN BREAKDOWN. Pt is OOB to chair with help from PT daily Order placed for turning patient Q2H Wedge pillow placed by nursing to offload pressure off of sacrum Cristian Risk Assessment 16 (at risk) Gait instability Per Ortho: No acute fracture noted on imaging. No acute ortho intervention at this time. Pt can follow up outpatient. PT/OT recommendations. Pt will be counseled on following up with appointments. patient can be toe touch weight bearing right leg at this time Hip/Pelvis XRAY: s/p right hip arthroplasty. Suspicious for displacement or migration of prosthesis superiorly. Heterogenous sclerotic changes at right pelvic bones of uncertain etiology. 03/12/2016 checking imaging of the lower extremity PT eval- TOLERATING OOB DESPITE CONSTANT R THIGH PAIN COMPLAINTS. PATIENT W/ IMPROVED CARRY OVER OF RLE NWB, WILL CONT TO PROGRESS GAIT. PATIENT NEEDS TO BE OOB TO CHAIR DAILY, CLEARED TO BE ASSISTED BY NURSING PT recs --> LAXMI UTI Urine culture 03/18 negative Urine culture 03/14 + E. Faecalis patient with complaint of frequency, will repeat UA and urine culture BPH flomax 0.4mg PO daily Proscar 5mg PO daily Urology consult: Dr. Hughes- f/u recc Hypomagnesemia and Hypokalemia and Hypophosphatemia replete as needed Prophylactic measure Labs Q3Days Heparin 5000 units SC Q8H A and D ointment TOP Q8H Colace 100mg PO daily for constipation likely secondary to pain meds Miralax 17gm PO BID for constipation likely secondary to pain meds Social Work- Patient is homeless. Will follow up to see which services are available. Plan discussed with Dr. Hansa Amaya PGY1 <Lionel Santo - Last Filed: 06/19/16 07:43> Objective - Vital Signs/Intake and Output Vital Signs (last 24 hours): Temp Pulse Resp BP Pulse Ox 98.2 F 79 20 106/67 96 06/19/16 00:28 06/19/16 00:28 06/19/16 00:28 06/19/16 00:28 06/19/16 00:28 Intake and Output: 06/19/16 06/19/16 06:59 18:59 Intake Total 300 Balance 300 - Medications Medications: Current Medications Acetaminophen (Tylenol 325mg Tab) 650 mg PO Q6 PRN PRN Reason: Pain, Mild (1-3) Last Admin: 06/14/16 01:00 Dose: 650 mg Carbamide Peroxide (Debrox Ear Drops) 1 ml AU BID [facility] Last Admin: 06/18/16 18:25 Dose: 5 drop Clotrimazole (Lotrimin 1%) 0 gm TOP BID [facility] Last Admin: 06/18/16 18:26 Dose: 1 applic Docusate Sodium (Colace) 100 mg PO BID [facility] Last Admin: 06/18/16 18:25 Dose: 100 mg Famotidine (Pepcid) 20 mg PO BID [facility] Last Admin: 06/18/16 18:26 Dose: 20 mg Heparin Sodium (Porcine) (Heparin) 5,000 units SC Q8 [facility] Last Admin: 06/19/16 05:55 Dose: 5,000 units Magnesium Oxide (Mag-Ox) 400 mg PO BID [facility] Last Admin: 06/18/16 18:26 Dose: 400 mg Polyethylene Glycol (Miralax) 17 gm PO Q2D [facility] Last Admin: 06/18/16 14:43 Dose: Not Given Silver Sulfadiazine (Silvadene 1% 20 Gm) 0 ea TOP Q12H [facility] Last Admin: 06/19/16 04:28 Dose: 1 applic Sodium Chloride (Sodium Chloride Tab) 1 gm PO DAILY@1330 [facility] Last Admin: 06/18/16 14:40 Dose: 1 gm Tamsulosin HCl (Flomax) 0.8 mg PO DAILY [facility] Last Admin: 06/18/16 09:36 Dose: 0.8 mg Tramadol HCl (Ultram) 25 mg PO TID PRN PRN Reason: Pain, moderate (4-7) Last Admin: 06/18/16 09:35 Dose: 25 mg - Labs Labs: 06/19/16 06:49 06/19/16 06:49 Attending/Attestation - Attestation I have personally seen and examined this patient.: Yes I have fully participated in the care of the patient.: Yes I have reviewed all pertinent clinical information, including history, physical exam and plan: Yes
[2016-04-04 09:37] LABS: BASO % 0.6 % (0.0-2.0); EOS # 0.1 K/uL (0.0-0.7); EOS % 2.8 % (0.0-4.0); HEMOGLOBIN 11.2 g/dL (12.0-18.0); LYMPH # 1.5 K/uL (1.0-4.3); LYMPH % 52.4 % (20.0-40.0); MEAN CELL VOLUME 90.1 fL (80.0-94.0); MEAN CORPUSCULAR HEMOGLOBIN 30.2 pg (27.0-31.0); MEAN CORPUSCULAR HGB CONC 33.5 g/dL (33.0-37.0); MEAN PLATELET VOLUME 8.2 fL (7.2-11.7); MONO # 0.3 K/uL (0.0-0.8); MONO % 9.8 % (0.0-10.0); NEUT % 34.4 % (50.0-75.0); RBC 3.71 Mil/uL (4.40-5.90); RED CELL DISTRIBUTION WIDTH 17.9 % (11.5-14.5); WHITE BLOOD COUNT 2.9 K/uL (4.8-10.8)
--- NOTE | 2016-04-04 09:42 | CP.PCM.PN ---
Subjective - Date & Time of Evaluation Date of Evaluation: 04/04/16 Time of Evaluation: 10:23 - Subjective Subjective: Patient complaining of right hip pain. Complains of pain all over his body. Asks for pain medication. Objective - Vital Signs/Intake and Output Vital Signs (last 24 hours): Temp Pulse Resp BP Pulse Ox 98 F 71 20 109/68 98 04/04/16 08:13 04/04/16 08:13 04/04/16 08:13 04/04/16 08:13 04/04/16 08:13 Intake and Output: 04/04/16 04/04/16 06:59 18:59 Intake Total 650 Balance 650 - Medications Medications: Current Medications Acetaminophen (Tylenol 325mg Tab) 650 mg PO Q6 PRN PRN Reason: Pain, Mild (1-3) Docusate Sodium (Colace) 100 mg PO DAILY [facility] Last Admin: 04/03/16 12:11 Dose: Not Given Finasteride (Proscar) 5 mg PO DAILY [facility] Last Admin: 04/03/16 16:27 Dose: 5 mg Heparin Sodium (Porcine) (Heparin) 5,000 units SC Q8 [facility] Last Admin: 04/04/16 05:39 Dose: 5,000 units Oxycodone/Acetaminophen (Percocet 5/325 Mg Tab) 1 tab PO Q6H PRN PRN Reason: Pain, moderate (4-7) Stop: 04/05/16 08:51 Last Admin: 04/03/16 18:14 Dose: 1 tab Polyethylene Glycol (Miralax) 17 gm PO BID [facility] Last Admin: 04/02/16 19:10 Dose: Not Given Tamsulosin HCl (Flomax) 0.4 mg PO DAILY [facility] Last Admin: 04/03/16 16:27 Dose: 0.4 mg Vitamin A (Vitamin A & D Oint Ud Foilpak) 1 ea TOP Q8H [facility] Last Admin: 04/04/16 00:00 Dose: 1 ea - Labs Labs: 04/04/16 09:29 04/03/16 04:00 - Extremities Exam Additional comments: TTP to entire BLE. Wrinkling to lower legs. +ROM ankle DF/PF, toes, sensation intact. Calves soft, neg homans Assessment and Plan (1) Acetabular protrusion Assessment & Plan: PT/OT TTWB per Dr. Pino No change in protrusio since prior xrays No acute fracture f/u as outpatient d/w Dr. Pino encourage OOB pain mgmt for chronic pain Status: Acute Radiology Interpretation - Radiology Interpretation #2 Interpretation: Patient Name / ID : ESME QUESADA / [id number] Exam Date : 04/03/2016 13:39:28 ( Approved ) Study Comment : Sex / Age : M / [id number] Creator : Sukhwinder Baird MD Dictator : Sukhwinder Baird MD Shroud Line Tier : Spider Assembler : Sukhwinder Baird MD Approver2 : Report Date : 04/03/2016 15:56:00 My Comment : PROCEDURE: Right Hip Radiographs. HISTORY: f/u protrusio COMPARISON: 03/12/2016 FINDINGS: BONES: Status post right hip arthroplasty. No osseous fracture. Ill-defined sclerosis about right acetabulum, uncertain significance. 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 SOFT TISSUES: Normal. OTHER FINDINGS: None. IMPRESSION: Status post right hip arthroplasty. Protrusio acetabula it. Superior migration of prosthesis. Sclerosis about the right acetabulum, nonspecific. No acute fracture. No change from recent examination of 03/12/2016.
[2016-04-04 09:55] LABS: ALBUMIN 3.4 g/dL (3.5-5.0)
[2016-04-04 09:57] LABS: GFR AFRICAN-AMERICAN > 60; GFR NON-AFRICAN AMERICAN > 60
[2016-04-04 09:58] LABS: ALB/GLOB RATIO 0.9 (1.0-2.1); ALT/SGPT 44 U/L (21-72); AST/SGOT 38 U/L (17-59); BLOOD UREA NITROGEN 13 mg/dL (9-20); CALCIUM 8.5 mg/dl (8.6-10.4)
[2016-04-04 09:59] LABS: MAGNESIUM 1.6 mg/dL (1.6-2.3)
[2016-04-04] MEDS: Vitamins A & D Oint UD Foilpak TOP SCH ×2 (10:57)
[2016-04-04] MEDS: Oxycodone/Acetaminophen 5/325 mg Tab PO PRN ×2 (10:58→21:59)
[2016-04-04] MEDS: Potassium & Sodium Phosphate PO SCH ×2 (14:35→18:09)
[2016-04-05] MEDS: Vitamins A & D Oint UD Foilpak TOP SCH ×3 (01:16→17:29)
[2016-04-05] MEDS: Potassium & Sodium Phosphate PO SCH ×3 (09:26→17:36)
[2016-04-05] MEDS ORDERED: Potassium Chloride 20 mEq ER Tab PO ONE (10:00)
--- NOTE | 2016-04-05 12:02 | CP.PCM.PN ---
Subjective - Date & Time of Evaluation Date of Evaluation: 04/05/16 Time of Evaluation: 11:56 - Subjective Subjective: 71 year old male complaining of some dysuria pt had + urine c7s which was treated second C&s neg pt has slight (5+)elevation of psa he is on flomax. and voiding without difficulty. Bladder is not distended. Suggest start pyridium repeat psa in 2 to 3 weeks continue flomax. On discharge pt should be refered for urological re evaluation. Saul Objective - Vital Signs/Intake and Output Vital Signs (last 24 hours): Temp Pulse Resp BP Pulse Ox 97.8 F 69 18 124/77 99 04/05/16 08:00 04/05/16 08:00 04/05/16 08:00 04/05/16 08:00 04/05/16 08:00 Intake and Output: 04/05/16 04/05/16 06:59 18:59 Intake Total 250 50 Output Total 300 500 Balance -50 -450 - Medications Medications: Current Medications Acetaminophen (Tylenol 325mg Tab) 650 mg PO Q6 PRN PRN Reason: Pain, Mild (1-3) Docusate Sodium (Colace) 100 mg PO DAILY [facility] Last Admin: 04/05/16 09:20 Dose: 100 mg Finasteride (Proscar) 5 mg PO DAILY [facility] Last Admin: 04/04/16 10:57 Dose: 5 mg Heparin Sodium (Porcine) (Heparin) 5,000 units SC Q8 [facility] Last Admin: 04/05/16 06:13 Dose: 5,000 units Polyethylene Glycol (Miralax) 17 gm PO BID [facility] Last Admin: 04/02/16 19:10 Dose: Not Given Potassium Phos/Sodium Phos (Neutra-Phos) 1 pkt PO TID [facility] Last Admin: 04/05/16 09:26 Dose: 1 pkt Tamsulosin HCl (Flomax) 0.4 mg PO DAILY [facility] Last Admin: 04/05/16 09:20 Dose: 0.4 mg Vitamin A (Vitamin A & D Oint Ud Foilpak) 1 ea TOP Q8H [facility] Last Admin: 04/05/16 09:21 Dose: 1 ea - Labs Labs: 04/04/16 09:29 04/04/16 09:29
--- NOTE | 2016-04-05 13:31 | CP.PCM.PN ---
<GomezMilanMarvel - Last Filed: 04/05/16 19:48> Subjective - Date & Time of Evaluation Date of Evaluation: 04/05/16 Time of Evaluation: 07:45 - Subjective Subjective: Patient is seen and evaluated at the bedside and was discussed with nursing staff. Patient denies any acute events overnight and is in no acute distress. Patient endorses headache, diffuse abdominal pain and RLE pain consistent with his initial presentation on 03/10. Patient further complains of urinary frequency but denies dysuria. Patient is able to ambulate and patient was discussed with PT who states that patient is able to tolerate out of bed to chair but still cannot bear weight on RLE. Patient is compliant with current medication regimen and offers no complaints with therapy. He has had no difficulty sleeping and has had a normal appetite. He otherwise denies any acute complaints including fever, chills, cough, shortness of breath, chest pain , nausea, vomiting, diarrhea, and leg swelling. Objective - Vital Signs/Intake and Output Vital Signs (last 24 hours): Temp Pulse Resp BP Pulse Ox 97.8 F 69 18 124/77 99 04/05/16 08:00 04/05/16 08:00 04/05/16 08:00 04/05/16 08:00 04/05/16 08:00 Intake and Output: 04/05/16 04/05/16 06:59 18:59 Intake Total 250 50 Output Total 300 500 Balance -50 -450 - Medications Medications: Current Medications Acetaminophen (Tylenol 325mg Tab) 650 mg PO Q6 PRN PRN Reason: Pain, Mild (1-3) Docusate Sodium (Colace) 100 mg PO DAILY [facility] Last Admin: 04/05/16 09:20 Dose: 100 mg Finasteride (Proscar) 5 mg PO DAILY [facility] Last Admin: 04/05/16 11:06 Dose: 5 mg Heparin Sodium (Porcine) (Heparin) 5,000 units SC Q8 [facility] Last Admin: 04/05/16 06:13 Dose: 5,000 units Phenazopyridine HCl (Pyridium) 200 mg PO TIDPC [facility] Polyethylene Glycol (Miralax) 17 gm PO BID [facility] Last Admin: 04/02/16 19:10 Dose: Not Given Potassium Phos/Sodium Phos (Neutra-Phos) 1 pkt PO TID [facility] Last Admin: 04/05/16 09:26 Dose: 1 pkt Tamsulosin HCl (Flomax) 0.4 mg PO DAILY [facility] Last Admin: 04/05/16 09:20 Dose: 0.4 mg Vitamin A (Vitamin A & D Oint Ud Foilpak) 1 ea TOP Q8H [facility] Last Admin: 04/05/16 09:21 Dose: 1 ea - Labs Labs: 04/04/16 09:29 04/04/16 09:29 - Constitutional Appears: Non-toxic, No Acute Distress - Head Exam Head Exam: ATRAUMATIC - Eye Exam Eye Exam: EOMI - ENT Exam ENT Exam: Mucous Membranes Moist - Respiratory Exam Respiratory Exam: Clear to Ausculation Bilateral, NORMAL BREATHING PATTERN - Cardiovascular Exam Cardiovascular Exam: REGULAR RHYTHM, RRR, +S1, +S2 - GI/Abdominal Exam GI & Abdominal Exam: Soft, Tenderness, Hernia (left inguinal), Normal Bowel Sounds - Extremities Exam Extremities Exam: absent: Joint Swelling - Neurological Exam Neurological Exam: Alert, Awake - Psychiatric Exam Psychiatric exam: Normal Affect, Normal Mood - Skin Skin Exam: Dry, Intact, Normal Color, Warm Assessment and Plan - Assessment and Plan (Free Text) Assessment: 71 yo M with no PMHx admitted for generalized weakness, abdominal pain, and dysuria. Plan: Abdominal Pain 04/01 Abdominal US: Gallstones, no cholecystitis, no hydronephrosis. trace ascites (see full report) Abd/pelv CT ordered 03/19/16- Results - Aneursmal dilatation of ascending thoracic aorta; Currently 4.5 cm. - Patient needs repeat Ct imaging every 6 months (July 2016) Atelectasis vs. scarring changes of lung bases b/l with left greater than right ; constipation; small inguinal hernia with unobstructed bowel loop involvement; acetabular protrusion at site of right hip replacement Percocet 5/325 1 tab PO Q6 PRN pain moderate Tylenol 650 mg PO Q6 PRN mild Sacral decubits Wound care following - recommending medihoney covered with bordered telfa dressing to right lower buttocks stage 2 pressure ulcer daily. Must reposition frequently to optimize offloading of all pressure points. Patient continues to be at risk for skin breakdown. Pt is OOB to chair with help from PT daily Order placed for turning patient Q2H Wedge pillow placed by nursing to offload pressure off of sacrum Cristian Risk assessment 16 (at risk) Gait Instability Per ortho: No acute fracture noted on imaging. No acute ortho intervention at this time. Pt can follow up outpatient. Pt/OT recommendations. Pt will be counseled on following up with appointments. Patient can be toe touch weight bearing right leg at this time 04/03/2016: Hip/Pelvis XRAY: s/p right hip arthroplasty. Suspicious for displacement or migration of prosthesis superiorly. Heterogenous sclerotic changes at right pelvic bones of uncertain etiology. 04/04/2016 PT eval - TOLERATED ACTIVITIES AND OOB TO CHAIR W/ MOD A ; ABLE TO HAVE GOOD CARRY OVER OF R LE NWB AND NEEDING MOD A FOR GAIT. LIMITED DISTANCE DUE TO POOR ENDURANCE FOR GAIT AND TODAY W/ BACK AND ABD PAIN. ? 03/29/2016PT eval - TOLERATING OOB DESPITE CONSTANT R THIGH PAIN COMPLAINTS. PATIENT W/ IMPROVED CARRY OVER OF RLE NWB, WILL CONT TO PROGRESS GAIT. PATIENT NEEDS TO BE OOB TO CHAIR DAILY, CLEARED TO BE ASSISTED BY NURSING PT recs --> LAXMI UTI Urine Culture 04/03 trace blood but negative for Leukocyte esterase. Urine culture 03/18 negative Urine culture 03/14 (+) E. Faecalis Patient with complaint of frequency, will repeat UA and urine culture BPH Pyridium 200 mg PO TIDPC 04/[address] Hughes: Suggest starting pyridium repeat psa in 2 to 3 weeks continue flomax. On discharge pt should be referred for urological re- evaluation/ Flomax 0.4 mg PO daily Proscar 5 mg PO daily Urology consult: Dr. Hughes - f/u rec Hypomagnesemia and Hypokalemia and Hypophosphatemia 04/04 K+: 3.5 Started on neutra-phos 1 pkt PO TID replete as needed Prophylactic Measure Labs Q3Days Heparin 5000 units SC Q8H A and D ointment TOP Q*H Colace 100 mg PO daily for constipation likely secondary to pain meds Miralax 17gm PO BID for constipation likely secondary to pain meds Social Work - Patient is homeless. will follow up to see which services are available <Lionel Santo - Last Filed: 06/19/16 07:50> Objective - Vital Signs/Intake and Output Vital Signs (last 24 hours): Temp Pulse Resp BP Pulse Ox 98.2 F 79 20 106/67 96 06/19/16 00:28 06/19/16 00:28 06/19/16 00:28 06/19/16 00:28 06/19/16 00:28 Intake and Output: 06/19/16 06/19/16 06:59 18:59 Intake Total 300 Balance 300 - Medications Medications: Current Medications Acetaminophen (Tylenol 325mg Tab) 650 mg PO Q6 PRN PRN Reason: Pain, Mild (1-3) Last Admin: 06/14/16 01:00 Dose: 650 mg Carbamide Peroxide (Debrox Ear Drops) 1 ml AU BID [facility] Last Admin: 06/18/16 18:25 Dose: 5 drop Clotrimazole (Lotrimin 1%) 0 gm TOP BID [facility] Last Admin: 06/18/16 18:26 Dose: 1 applic Docusate Sodium (Colace) 100 mg PO BID [facility] Last Admin: 06/18/16 18:25 Dose: 100 mg Famotidine (Pepcid) 20 mg PO BID [facility] Last Admin: 06/18/16 18:26 Dose: 20 mg Heparin Sodium (Porcine) (Heparin) 5,000 units SC Q8 [facility] Last Admin: 06/19/16 05:55 Dose: 5,000 units Magnesium Oxide (Mag-Ox) 400 mg PO BID [facility] Last Admin: 06/18/16 18:26 Dose: 400 mg Polyethylene Glycol (Miralax) 17 gm PO Q2D [facility] Last Admin: 06/18/16 14:43 Dose: Not Given Silver Sulfadiazine (Silvadene 1% 20 Gm) 0 ea TOP Q12H [facility] Last Admin: 06/19/16 04:28 Dose: 1 applic Sodium Chloride (Sodium Chloride Tab) 1 gm PO DAILY@1330 [facility] Last Admin: 06/18/16 14:40 Dose: 1 gm Tamsulosin HCl (Flomax) 0.8 mg PO DAILY [facility] Last Admin: 06/18/16 09:36 Dose: 0.8 mg Tramadol HCl (Ultram) 25 mg PO TID PRN PRN Reason: Pain, moderate (4-7) Last Admin: 06/18/16 09:35 Dose: 25 mg - Labs Labs: 06/19/16 06:49 06/19/16 06:49 Attending/Attestation - Attestation I have personally seen and examined this patient.: Yes I have fully participated in the care of the patient.: Yes I have reviewed all pertinent clinical information, including history, physical exam and plan: Yes
[2016-04-06] MEDS: Potassium & Sodium Phosphate PO SCH ×3 (10:01→18:23)
[2016-04-06] MEDS: Vitamins A & D Oint UD Foilpak TOP SCH ×3 (10:02→18:23)
--- NOTE | 2016-04-06 17:08 | CP.PCM.PN ---
<GomezMarvel - Last Filed: 04/06/16 20:03> Subjective - Date & Time of Evaluation Date of Evaluation: 04/06/16 Time of Evaluation: 09:50 - Subjective Subjective: Patient is seen and evaluated at the bedside and was discussed with nursing staff. Patient denies any acute events overnight and is in no acute distress. Patient endorses generalized pain, most notably in his and RLE. As per psychiatric nursing assistant, patient requested to sit upright in a chair and was sitting there for 5 hours. He, however, is still unable to ambulate fully on his own. Patient has been given tylenol for pain control. He reports persistent urinary frequency but denies any additional urinary complaints. Patient is compliant with current medication regimen and offers no complaints with therapy. He has had no difficulty sleeping and has had a normal appetite. He otherwise denies any acute complaints including fever, chills, cough, shortness of breath, chest pain, nausea, vomiting, diarrhea, and leg swelling. Objective - Vital Signs/Intake and Output Vital Signs (last 24 hours): Temp Pulse Resp BP Pulse Ox 97.7 F 63 18 107/65 98 04/06/16 08:00 04/06/16 08:00 04/06/16 08:00 04/06/16 08:00 04/06/16 08:00 Intake and Output: 04/06/16 04/06/16 06:59 18:59 Intake Total 400 240 Balance 400 240 - Medications Medications: Current Medications Acetaminophen (Tylenol 325mg Tab) 650 mg PO Q6 PRN PRN Reason: Pain, Mild (1-3) Docusate Sodium (Colace) 100 mg PO DAILY [facility] Last Admin: 04/06/16 10:02 Dose: Not Given Finasteride (Proscar) 5 mg PO DAILY [facility] Last Admin: 04/06/16 10:01 Dose: 5 mg Heparin Sodium (Porcine) (Heparin) 5,000 units SC Q8 [facility] Last Admin: 04/06/16 13:16 Dose: 5,000 units Phenazopyridine HCl (Pyridium) 200 mg PO TIDPC [facility] Last Admin: 04/06/16 13:16 Dose: 200 mg Polyethylene Glycol (Miralax) 17 gm PO BID [facility] Last Admin: 04/02/16 19:10 Dose: Not Given Potassium Phos/Sodium Phos (Neutra-Phos) 1 pkt PO TID [facility] Last Admin: 04/06/16 13:16 Dose: 1 pkt Tamsulosin HCl (Flomax) 0.4 mg PO DAILY [facility] Last Admin: 04/06/16 10:01 Dose: 0.4 mg Vitamin A (Vitamin A & D Oint Ud Foilpak) 1 ea TOP Q8H [facility] Last Admin: 04/06/16 10:02 Dose: 1 ea - Labs Labs: 04/04/16 09:29 04/04/16 09:29 - Constitutional Appears: Unkempt - Head Exam Head Exam: ATRAUMATIC, NORMOCEPHALIC - Eye Exam Eye Exam: EOMI - ENT Exam ENT Exam: Mucous Membranes Moist - Neck Exam Neck Exam: Full ROM. absent: Lymphadenopathy - Respiratory Exam Respiratory Exam: Clear to Ausculation Bilateral, NORMAL BREATHING PATTERN - Cardiovascular Exam Cardiovascular Exam: REGULAR RHYTHM, +S1, +S2. absent: JVD - GI/Abdominal Exam GI & Abdominal Exam: Soft, Tenderness, Normal Bowel Sounds - Extremities Exam Extremities Exam: absent: Joint Swelling, Pedal Edema - Neurological Exam Neurological Exam: Alert, Awake - Psychiatric Exam Psychiatric exam: Depressed, Normal Affect - Skin Skin Exam: Dry, Intact Assessment and Plan - Assessment and Plan (Free Text) Assessment: 71 yo M with no PMHx admitted for generalized weakness, abdominal pain, and dysuria. Plan: Abdominal Pain Abdominal US: Gallstones, no cholecystitis, no hydronephrosis. trace ascites ( see full report) Abd/pelv CT ordered 03/19/16- Results - Aneursmal dilatation of ascending thoracic aorta; Currently 4.5 cm. - Patient needs repeat Ct imaging every 6 months (July 2016) Atelectasis vs. scarring changes of lung bases b/l with left greater than right ; constipation; small inguinal hernia with unobstructed bowel loop involvement; acetabular protrusion at site of right hip replacement? Tylenol 650 mg PO Q6 PRN mild Sacral decubits Wound care following - recommending medihoney covered with bordered telfa dressing to right lower buttocks stage 2 pressure ulcer daily. Must reposition frequently to optimize offloading of all pressure points. Patient continues to be at risk for skin breakdown. Pt is OOB to chair with help from PT daily Order placed for turning patient Q2H Wedge pillow placed by nursing to offload pressure off of sacrum Cristian Risk assessment 16 (at risk) Gait Instability Per ortho: No acute fracture noted on imaging. No acute ortho intervention at this time. Pt can follow up outpatient. Pt/OT recommendations. Pt will be counseled on following up with appointments. Patient can be toe touch weight bearing right leg at this time 04/04/2016: Ortho Consult Jayce West PA-C: Status post right hip arhtorplasty. Protrusio acetabula it. Superior migration of prosthesis. Sclerosis about the right acetabulum, nonspecific. No acute fracture. No change from recent examination of 03/12/2016. 04/03/2016: Hip/Pelvis XRAY: s/p right hip arthroplasty. Suspicious for displacement or migration of prosthesis superiorly. Heterogenous sclerotic changes at right pelvic bones of uncertain etiology. 04/04/2016 PT eval - TOLERATED ACTIVITIES AND OOB TO CHAIR W/ MOD A ; ABLE TO HAVE GOOD CARRY OVER OF R LE NWB AND NEEDING MOD A FOR GAIT. LIMITED DISTANCE DUE TO POOR ENDURANCE FOR GAIT AND TODAY W/ BACK AND ABD PAIN. ? 03/29/2016PT eval - TOLERATING OOB DESPITE CONSTANT R THIGH PAIN COMPLAINTS. PATIENT W/ IMPROVED CARRY OVER OF RLE NWB, WILL CONT TO PROGRESS GAIT. PATIENT NEEDS TO BE OOB TO CHAIR DAILY, CLEARED TO BE ASSISTED BY NURSING PT recs --> LAXMI UTI Urine Culture 04/03 trace blood but negative for Leukocyte esterase. Urine culture 03/18 negative Urine culture 03/14 (+) E. Faecalis Patient with complaint of frequency, will repeat UA and urine culture BPH Pyridium 200 mg PO TIDPC 04/[address] Hughes: Suggest starting pyridium repeat psa in 2 to 3 weeks continue flomax. On discharge pt should be referred for urological re- evaluation/ Flomax 0.4 mg PO daily Proscar 5 mg PO daily Urology consult: Dr. Hughes - f/u rec Hypomagnesemia and Hypokalemia and Hypophosphatemia 04/04 k+: 3.5 Started on neutra-phos 1 pkt PO TID replete as needed Prophylactic Measure Labs Q3Days Heparin 5000 units SC Q8H A and D ointment TOP Q*H Colace 100 mg PO daily for constipation likely secondary to pain meds Miralax 17gm PO BID for constipation likely secondary to pain meds Social Work - [place] is homeless. will follow up to see which services are available <Lionel Santo - Last Filed: 04/07/16 08:48> Objective - Vital Signs/Intake and Output Vital Signs (last 24 hours): Temp Pulse Resp BP Pulse Ox 98.2 F 78 20 108/66 98 04/07/16 08:20 04/07/16 08:20 04/07/16 08:20 04/07/16 08:20 04/07/16 08:20 Intake and Output: 04/07/16 04/07/16 06:59 18:59 Intake Total 240 Balance 240 - Medications Medications: Current Medications Acetaminophen (Tylenol 325mg Tab) 650 mg PO Q6 PRN PRN Reason: Pain, Mild (1-3) Docusate Sodium (Colace) 100 mg PO DAILY [facility] Last Admin: 04/06/16 10:02 Dose: Not Given Finasteride (Proscar) 5 mg PO DAILY [facility] Last Admin: 04/06/16 10:01 Dose: 5 mg Heparin Sodium (Porcine) (Heparin) 5,000 units SC Q8 [facility] Last Admin: 04/07/16 05:25 Dose: 5,000 units Phenazopyridine HCl (Pyridium) 200 mg PO TIDPC [facility] Last Admin: 04/06/16 18:23 Dose: 200 mg Polyethylene Glycol (Miralax) 17 gm PO BID [facility] Last Admin: 04/02/16 19:10 Dose: Not Given Potassium Phos/Sodium Phos (Neutra-Phos) 1 pkt PO TID [facility] Last Admin: 04/06/16 18:23 Dose: 1 pkt Tamsulosin HCl (Flomax) 0.4 mg PO DAILY [facility] Last Admin: 04/06/16 10:01 Dose: 0.4 mg Vitamin A (Vitamin A & D Oint Ud Foilpak) 1 ea TOP Q8H [facility] Last Admin: 04/07/16 00:10 Dose: 1 ea - Labs Labs: 04/07/16 06:59 04/07/16 06:59 Attending/Attestation - Attestation I have personally seen and examined this patient.: Yes I have fully participated in the care of the patient.: Yes I have reviewed all pertinent clinical information, including history, physical exam and plan: Yes Notes (Text): Patient with previous R hip replacement, admitted for bilateral lower ext edema , pain and failure to thrive; found to have R acetabular protrusion; Patient sitting in chair as requested; per last PT note (04/04), still has difficulty with gait due to R hip and back pain; has been non-weight bearing on R, however, per last ortho note on 04/04, can do toe-touch weight bearing; will convey the recommendation to PT in order to advance patient's mobility; Per OT note today, patient can complete his functional tasks but needs extended time to do so; Will place on standing dose of tylenol 650 mg q6h for continuous analgesic effect; BPH, on flomax and finasteride; continue; s/p 7 days abx for enterococcus UTI; continues to have supra-pubic tenderness to palpation but no bladder distention ; started on pyridium per urology; needs outpatient urology f/u to address BPH; Dispo: Ideally needs LAXMI but has no insurance; attempting to increase patient's mobility with PT/OT and pain control.
[2016-04-07] MEDS: Vitamins A & D Oint UD Foilpak TOP SCH ×3 (00:10→17:54)
[2016-04-07 07:14] LABS: BASO % 0.5 % (0.0-2.0); EOS # 0.1 K/uL (0.0-0.7); EOS % 1.6 % (0.0-4.0); HEMOGLOBIN 10.7 g/dL (12.0-18.0); LYMPH # 1.5 K/uL (1.0-4.3); MEAN CELL VOLUME 90.7 fL (80.0-94.0); MEAN CORPUSCULAR HEMOGLOBIN 30.3 pg (27.0-31.0); MEAN CORPUSCULAR HGB CONC 33.4 g/dL (33.0-37.0); MEAN PLATELET VOLUME 8.4 fL (7.2-11.7); MONO # 0.5 K/uL (0.0-0.8); MONO % 10.5 % (0.0-10.0); NEUT # 2.8 K/uL (1.8-7.0); NEUT % 56.4 % (50.0-75.0); NRBC % 0.1 % (0.0-2.0); RBC 3.53 Mil/uL (4.40-5.90); RED CELL DISTRIBUTION WIDTH 18.7 % (11.5-14.5)
[2016-04-07 07:36] LABS: ALBUMIN 3.4 g/dL (3.5-5.0)
[2016-04-07 07:38] LABS: GFR AFRICAN-AMERICAN > 60; GFR NON-AFRICAN AMERICAN > 60
[2016-04-07 07:39] LABS: ALB/GLOB RATIO 0.9 (1.0-2.1); ALT/SGPT 45 U/L (21-72); AST/SGOT 35 U/L (17-59); BLOOD UREA NITROGEN 15 mg/dL (9-20); CALCIUM 8.7 mg/dl (8.6-10.4)
[2016-04-07 07:41] LABS: WHITE BLOOD COUNT 4.9 K/uL (4.8-10.8)
[2016-04-07] MEDS: Potassium & Sodium Phosphate PO SCH ×4 (10:23→22:04)
[2016-04-07] MEDS: oxyCODONE 5 mg Immediate Release Tab PO PRN (12:46)
--- NOTE | 2016-04-07 13:58 | CP.PCM.PN ---
<Marvel Gomez - Last Filed: 04/07/16 19:08> Subjective - Date & Time of Evaluation Date of Evaluation: 04/07/16 Time of Evaluation: 07:40 - Subjective Subjective: Patient is seen and evaluated at the bedside and was discussed with nursing staff. Patient denies any acute events overnight and is in no acute distress. Patient endorses generalized pain, most notably RLQ abdominal pain. Pt. still complains of right hip pain and LLQ abdominal pain as well. Patient has been given oxycodone for pain control. He does not report any urinary complaints today. Patient is compliant with current medication regimen and offers no complaints with therapy. He has had no difficulty sleeping and has had a normal appetite. He otherwise denies any acute complaints including fever, chills, cough, shortness of breath, chest pain, nausea, vomiting, diarrhea, and leg swelling. Objective - Vital Signs/Intake and Output Vital Signs (last 24 hours): Temp Pulse Resp BP Pulse Ox 98.2 F 78 20 108/66 98 04/07/16 10:20 04/07/16 08:20 04/07/16 08:20 04/07/16 08:20 04/07/16 08:20 Intake and Output: 04/07/16 04/07/16 06:59 18:59 Intake Total 240 Balance 240 - Medications Medications: Current Medications Docusate Sodium (Colace) 100 mg PO DAILY [facility] Last Admin: 04/07/16 10:22 Dose: 100 mg Finasteride (Proscar) 5 mg PO DAILY [facility] Last Admin: 04/07/16 10:23 Dose: 5 mg Oxycodone HCl (Oxycodone Immediate Release Tab) 5 mg PO Q8H PRN PRN Reason: Pain, severe (8-10) Last Admin: 04/07/16 12:46 Dose: 5 mg Phenazopyridine HCl (Pyridium) 200 mg PO TIDPC [facility] Last Admin: 04/07/16 12:42 Dose: 200 mg Polyethylene Glycol (Miralax) 17 gm PO BID [facility] Last Admin: 04/02/16 19:10 Dose: Not Given Potassium Phos/Sodium Phos (Neutra-Phos) 1 pkt PO TID [facility] Last Admin: 04/07/16 10:23 Dose: 1 pkt Tamsulosin HCl (Flomax) 0.4 mg PO DAILY [facility] Last Admin: 04/07/16 10:22 Dose: 0.4 mg Vitamin A (Vitamin A & D Oint Ud Foilpak) 1 ea TOP Q8H [facility] Last Admin: 04/07/16 10:22 Dose: 1 ea - Labs Labs: 04/07/16 06:59 04/07/16 06:59 - Constitutional Appears: No Acute Distress, Unkempt - Head Exam Head Exam: ATRAUMATIC, NORMOCEPHALIC - Eye Exam Eye Exam: EOMI - ENT Exam ENT Exam: Mucous Membranes Moist - Neck Exam Neck Exam: Full ROM. absent: Lymphadenopathy - Respiratory Exam Respiratory Exam: Clear to Ausculation Bilateral, NORMAL BREATHING PATTERN. absent: Wheezes - Cardiovascular Exam Cardiovascular Exam: REGULAR RHYTHM, RRR, +S1, +S2 - GI/Abdominal Exam GI & Abdominal Exam: Soft, Tenderness, Normal Bowel Sounds - Extremities Exam Extremities Exam: absent: Joint Swelling Additional comments: onychomycosis, dry flaky skin on feet and legs BL - Neurological Exam Neurological Exam: Alert, Awake - Psychiatric Exam Psychiatric exam: Depressed, Normal Affect - Skin Skin Exam: Dry Assessment and Plan - Assessment and Plan (Free Text) Assessment: 71 yo M with no PMHx admitted for generalized weakness, abdominal pain, and dysuria. Plan: Abdominal Pain Abdominal US: Gallstones, no cholecystitis, no hydronephrosis. trace ascites ( see full report) Abd/pelv CT ordered 03/19/16- Results - Aneursmal dilatation of ascending thoracic aorta; Currently 4.5 cm. 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 Tylenol 650 mg PO Q6 PRN mild pain Oxycodone 5mg q8 prn severe pain Sacral decubits Wound care following - recommending medihoney covered with bordered telfa dressing to right lower buttocks stage 2 pressure ulcer daily. Pt is OOB to chair with help from PT daily Order placed for turning patient Q2H Gait Instability Per ortho: No acute fracture noted on imaging. No acute ortho intervention at this time. Pt can follow up outpatient. Pt/OT recommendations. Pt will be counseled on following up with appointments. Patient can be toe touch weight bearing right leg at this time 04/04/2016 PT eval - TOLERATED ACTIVITIES AND OOB TO CHAIR W/ MOD A ; ABLE TO HAVE GOOD CARRY OVER OF R LE NWB AND NEEDING MOD A FOR GAIT. LIMITED DISTANCE DUE TO POOR ENDURANCE FOR GAIT AND TODAY W/ BACK AND ABD PAIN. ? PT recs --> LAXMI UTI Patient with complaint of frequency, will repeat UA and urine culture UA ordered 04/07 Urine Culture 04/03 trace blood but negative for Leukocyte esterase. Urine culture 03/18 negative Urine culture 03/14 (+) E. Faecalis BPH Pyridium 200 mg PO TIDPC 04/[address] Hughes: Suggest starting pyridium repeat psa in 2 to 3 weeks continue flomax. On discharge pt should be referred for urological re- evaluation/ Flomax 0.4 mg PO daily Proscar 5 mg PO daily Onychomycosis podiatry consult - Dr. Dixon Prophylactic Measure Labs Q3Days Heparin 5000 units SC Q8H A and D ointment TOP Q*H Colace 100 mg PO daily for constipation likely secondary to pain meds Miralax 17gm PO BID for constipation likely secondary to pain meds Social Work - Giuseppe is homeless. will follow up to see which services are available <Lionel Santo - Last Filed: 06/19/16 07:56> Objective - Vital Signs/Intake and Output Vital Signs (last 24 hours): Temp Pulse Resp BP Pulse Ox 98.2 F 79 20 106/67 96 06/19/16 00:28 06/19/16 00:28 06/19/16 00:28 06/19/16 00:28 06/19/16 00:28 Intake and Output: 06/19/16 06/19/16 06:59 18:59 Intake Total 300 Balance 300 - Medications Medications: Current Medications Acetaminophen (Tylenol 325mg Tab) 650 mg PO Q6 PRN PRN Reason: Pain, Mild (1-3) Last Admin: 06/14/16 01:00 Dose: 650 mg Carbamide Peroxide (Debrox Ear Drops) 1 ml AU BID [facility] Last Admin: 06/18/16 18:25 Dose: 5 drop Clotrimazole (Lotrimin 1%) 0 gm TOP BID [facility] Last Admin: 06/18/16 18:26 Dose: 1 applic Docusate Sodium (Colace) 100 mg PO BID [facility] Last Admin: 06/18/16 18:25 Dose: 100 mg Famotidine (Pepcid) 20 mg PO BID [facility] Last Admin: 06/18/16 18:26 Dose: 20 mg Heparin Sodium (Porcine) (Heparin) 5,000 units SC Q8 [facility] Last Admin: 06/19/16 05:55 Dose: 5,000 units Magnesium Oxide (Mag-Ox) 400 mg PO BID [facility] Last Admin: 06/18/16 18:26 Dose: 400 mg Polyethylene Glycol (Miralax) 17 gm PO Q2D [facility] Last Admin: 06/18/16 14:43 Dose: Not Given Silver Sulfadiazine (Silvadene 1% 20 Gm) 0 ea TOP Q12H [facility] Last Admin: 06/19/16 04:28 Dose: 1 applic Sodium Chloride (Sodium Chloride Tab) 1 gm PO DAILY@1330 [facility] Last Admin: 06/18/16 14:40 Dose: 1 gm Tamsulosin HCl (Flomax) 0.8 mg PO DAILY [facility] Last Admin: 06/18/16 09:36 Dose: 0.8 mg Tramadol HCl (Ultram) 25 mg PO TID PRN PRN Reason: Pain, moderate (4-7) Last Admin: 06/18/16 09:35 Dose: 25 mg - Labs Labs: 06/19/16 06:49 06/19/16 06:49 Attending/Attestation - Attestation I have personally seen and examined this patient.: Yes I have fully participated in the care of the patient.: Yes I have reviewed all pertinent clinical information, including history, physical exam and plan: Yes
[2016-04-08] MEDS: Vitamins A & D Oint UD Foilpak TOP SCH ×3 (08:04→17:40)
[2016-04-08] MEDS: oxyCODONE 5 mg Immediate Release Tab PO PRN (08:10)
[2016-04-08] MEDS: Potassium & Sodium Phosphate PO SCH ×3 (10:23→17:42)
[2016-04-08 14:06] LABS: SQUAMOUS EPITHIAL 1 /hpf (0-5); URINE BACTERIA RARE (<OCC); URINE BILIRUBIN NEGATIVE (NEGATIVE); URINE BLOOD NEGATIVE (NEGATIVE); URINE CLARITY Clear (Clear); URINE COLOR Amber (YELLOW); URINE GLUCOSE (UA) NORMAL (Normal); URINE LEUKOCYTE ESTERASE NEG Leu/uL (Negative); URINE NITRATE POSITIVE (NEGATIVE); URINE PROTEIN NEGATIVE (NEGATIVE)
--- NOTE | 2016-04-08 14:30 | CP.PCM.PN ---
<Kimberly Ken - Last Filed: 04/08/16 14:30> Subjective - Date & Time of Evaluation Date of Evaluation: 04/08/16 Time of Evaluation: 08:30 - Subjective Subjective: Patient was seen and evaluated at the bedside. Patient denies any acute events overnight and is in no acute distress. Patient endorses generalized pain, most notably RLQ abdominal pain. He still complains of right hip pain and LLQ abdominal pain as well. He admits to one [facility] in the last day. He otherwise denies any acute complaints including fever, chills, cough, shortness of breath , chest pain, nausea, vomiting, diarrhea, and leg swelling. Objective - Vital Signs/Intake and Output Vital Signs (last 24 hours): Temp Pulse Resp BP Pulse Ox 97.9 F 65 20 107/68 96 04/08/16 13:17 04/08/16 08:00 04/08/16 08:00 04/08/16 08:00 04/08/16 08:00 - Medications Medications: Current Medications Acetaminophen (Tylenol 325mg Tab) 650 mg PO Q6 [facility] Last Admin: 04/08/16 13:17 Dose: 650 mg Finasteride (Proscar) 5 mg PO DAILY [facility] Last Admin: 04/08/16 10:18 Dose: 5 mg Oxycodone HCl (Oxycodone Immediate Release Tab) 5 mg PO Q8H PRN PRN Reason: Pain, severe (8-10) Last Admin: 04/08/16 08:10 Dose: 5 mg Phenazopyridine HCl (Pyridium) 200 mg PO TIDPC [facility] Last Admin: 04/08/16 13:19 Dose: 200 mg Polyethylene Glycol (Miralax) 17 gm PO BID [facility] Last Admin: 04/02/16 19:10 Dose: Not Given Potassium Phos/Sodium Phos (Neutra-Phos) 1 pkt PO TID [facility] Last Admin: 04/08/16 10:23 Dose: 1 pkt Tamsulosin HCl (Flomax) 0.4 mg PO DAILY [facility] Last Admin: 04/08/16 10:18 Dose: 0.4 mg Vitamin A (Vitamin A & D Oint Ud Foilpak) 1 ea TOP Q8H [facility] Last Admin: 04/08/16 08:04 Dose: 1 ea - Labs Labs: 04/07/16 06:59 04/07/16 06:59 - Constitutional Appears: No Acute Distress, Cachectic, Chronically Ill - Eye Exam Eye Exam: EOMI Pupil Exam: NORMAL ACCOMODATION - ENT Exam ENT Exam: Mucous Membranes Dry - Respiratory Exam Respiratory Exam: Clear to Ausculation Bilateral, NORMAL BREATHING PATTERN. absent: Accessory Muscle Use, Respiratory Distress - Cardiovascular Exam Cardiovascular Exam: REGULAR RHYTHM, +S1, +S2 - GI/Abdominal Exam GI & Abdominal Exam: Soft, Tenderness, Normal Bowel Sounds. absent: Distended, Firm, Guarding - Extremities Exam Extremities Exam: Pedal Edema. absent: Calf Tenderness - Back Exam Back Exam: NORMAL INSPECTION. absent: CVA tenderness (L), CVA tenderness (R), paraspinal tenderness - Neurological Exam Neurological Exam: Alert, Awake, Oriented x3. absent: Normal Gait - Psychiatric Exam Psychiatric exam: Normal Affect, Normal Mood - Skin Skin Exam: Dry, Normal Color, Warm Additional comments: sacral ulcer Assessment and Plan - Assessment and Plan (Free Text) Assessment: Abdominal Pain Abdominal US: Gallstones, no cholecystitis, no hydronephrosis. trace ascites ( see full report) Abd/pelv CT ordered 03/19/16- Results - Aneursmal dilatation of ascending thoracic aorta; Currently 4.5 cm. 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 Tylenol 650 mg PO Q6 PRN mild pain Oxycodone 5mg q8 prn severe pain UTI No urinary complaints today UA ordered 04/08 - 3 WBC, will f/u repeat urine culture Urine Culture 04/03 trace blood but negative for Leukocyte esterase. Urine culture 03/18 negative Urine culture 03/14 (+) E. Faecalis Sacral decubits Wound care following - recommending medihoney covered with bordered telfa dressing to right lower buttocks stage 2 pressure ulcer daily. Pt is OOB to chair with help from PT daily Order placed for turning patient Q2H Gait Instability Per ortho: No acute fracture noted on imaging. No acute ortho intervention at this time. Pt can follow up outpatient. Pt/OT recommendations. Pt will be counseled on following up with appointments. Patient can be toe touch weight bearing right leg at this time 04/04/2016 PT eval - TOLERATED ACTIVITIES AND OOB TO CHAIR W/ MOD A ; ABLE TO HAVE GOOD CARRY OVER OF R LE NWB AND NEEDING MOD A FOR GAIT. LIMITED DISTANCE DUE TO POOR ENDURANCE FOR GAIT AND TODAY W/ BACK AND ABD PAIN. ? PT recs --> LAXMI BPH Pyridium 200 mg PO TIDPC 04/[address] Hughes: Suggest starting pyridium repeat psa in 2 to 3 weeks continue flomax. On discharge pt should be referred for urological re- evaluation/ Flomax 0.4 mg PO daily Proscar 5 mg PO daily Onychomycosis podiatry consult - Dr. Gillespieitis Prophylactic Measure Labs Q3Days Heparin 5000 units SC Q8H A and D ointment TOP Q*H Colace 100 mg PO daily for constipation likely secondary to pain meds Miralax 17gm PO BID for constipation likely secondary to pain meds Social Work - Giuseppe is homeless. will follow up to see which services are available <Lionel Santo - Last Filed: 06/19/16 07:59> Objective - Vital Signs/Intake and Output Vital Signs (last 24 hours): Temp Pulse Resp BP Pulse Ox 98.2 F 79 20 106/67 96 06/19/16 00:28 06/19/16 00:28 06/19/16 00:28 06/19/16 00:28 06/19/16 00:28 Intake and Output: 06/19/16 06/19/16 06:59 18:59 Intake Total 300 Balance 300 - Medications Medications: Current Medications Acetaminophen (Tylenol 325mg Tab) 650 mg PO Q6 PRN PRN Reason: Pain, Mild (1-3) Last Admin: 06/14/16 01:00 Dose: 650 mg Carbamide Peroxide (Debrox Ear Drops) 1 ml AU BID [facility] Last Admin: 06/18/16 18:25 Dose: 5 drop Clotrimazole (Lotrimin 1%) 0 gm TOP BID [facility] Last Admin: 06/18/16 18:26 Dose: 1 applic Docusate Sodium (Colace) 100 mg PO BID [facility] Last Admin: 06/18/16 18:25 Dose: 100 mg Famotidine (Pepcid) 20 mg PO BID [facility] Last Admin: 06/18/16 18:26 Dose: 20 mg Heparin Sodium (Porcine) (Heparin) 5,000 units SC Q8 [facility] Last Admin: 06/19/16 05:55 Dose: 5,000 units Magnesium Oxide (Mag-Ox) 400 mg PO BID [facility] Last Admin: 06/18/16 18:26 Dose: 400 mg Polyethylene Glycol (Miralax) 17 gm PO Q2D [facility] Last Admin: 06/18/16 14:43 Dose: Not Given Silver Sulfadiazine (Silvadene 1% 20 Gm) 0 ea TOP Q12H [facility] Last Admin: 06/19/16 04:28 Dose: 1 applic Sodium Chloride (Sodium Chloride Tab) 1 gm PO DAILY@1330 [facility] Last Admin: 06/18/16 14:40 Dose: 1 gm Tamsulosin HCl (Flomax) 0.8 mg PO DAILY [facility] Last Admin: 06/18/16 09:36 Dose: 0.8 mg Tramadol HCl (Ultram) 25 mg PO TID PRN PRN Reason: Pain, moderate (4-7) Last Admin: 06/18/16 09:35 Dose: 25 mg - Labs Labs: 06/19/16 06:49 06/19/16 06:49 Attending/Attestation - Attestation I have personally seen and examined this patient.: Yes I have fully participated in the care of the patient.: Yes I have reviewed all pertinent clinical information, including history, physical exam and plan: Yes
[2016-04-09] MEDS: Vitamins A & D Oint UD Foilpak TOP SCH ×3 (00:15→17:38)
--- NOTE | 2016-04-09 09:36 | CP.PCM.PN ---
<Kimberly Ken - Last Filed: 04/09/16 14:12> Subjective - Date & Time of Evaluation Date of Evaluation: 04/09/16 Time of Evaluation: 07:30 - Subjective Subjective: Patient was seen and evaluated at the bedside. Patient denies any acute events overnight and is in no acute distress. Patient endorses generalized pain, most notably RLQ abdominal pain. He states "same pain as always". He still complains of right hip pain and LLQ abdominal pain as well. He admits to two soft BMs in the last day which he calls diarrhea. Today he is also complaining to urinary frequency and dysuria. He was out of bed to chair yesterday. He otherwise denies any acute complaints including fever, chills, cough, shortness of breath , chest pain, nausea, vomiting. Objective - Vital Signs/Intake and Output Vital Signs (last 24 hours): Temp Pulse Resp BP Pulse Ox 98.3 F 74 20 105/67 97 04/09/16 08:39 04/09/16 08:39 04/09/16 08:39 04/09/16 08:39 04/09/16 08:39 - Medications Medications: Current Medications Acetaminophen (Tylenol 325mg Tab) 650 mg PO Q6 [facility] Last Admin: 04/09/16 07:00 Dose: Not Given Finasteride (Proscar) 5 mg PO DAILY [facility] Last Admin: 04/08/16 10:18 Dose: 5 mg Oxycodone HCl (Oxycodone Immediate Release Tab) 5 mg PO Q8H PRN PRN Reason: Pain, severe (8-10) Last Admin: 04/08/16 08:10 Dose: 5 mg Phenazopyridine HCl (Pyridium) 200 mg PO TIDPC [facility] Last Admin: 04/08/16 17:40 Dose: 200 mg Polyethylene Glycol (Miralax) 17 gm PO BID [facility] Last Admin: 04/02/16 19:10 Dose: Not Given Potassium Phos/Sodium Phos (Neutra-Phos) 1 pkt PO TID [facility] Last Admin: 04/08/16 17:42 Dose: Not Given Tamsulosin HCl (Flomax) 0.4 mg PO DAILY [facility] Last Admin: 04/08/16 10:18 Dose: 0.4 mg Vitamin A (Vitamin A & D Oint Ud Foilpak) 1 ea TOP Q8H [facility] Last Admin: 04/09/16 07:52 Dose: 1 ea - Labs Labs: 04/07/16 06:59 04/07/16 06:59 - Constitutional Appears: Non-toxic, No Acute Distress, Cachectic, Chronically Ill - Eye Exam Eye Exam: EOMI, Normal appearance Pupil Exam: NORMAL ACCOMODATION - ENT Exam ENT Exam: Mucous Membranes Moist - Respiratory Exam Respiratory Exam: Clear to Ausculation Bilateral, NORMAL BREATHING PATTERN. absent: Respiratory Distress - Cardiovascular Exam Cardiovascular Exam: REGULAR RHYTHM, +S1, +S2 - GI/Abdominal Exam GI & Abdominal Exam: Soft, Tenderness, Normal Bowel Sounds. absent: Distended, Firm, Guarding Additional comments: hernia pelvic area - Extremities Exam Extremities Exam: Pedal Edema, Tenderness - Back Exam Additional comments: sacral ulcer - Neurological Exam Neurological Exam: Alert, Awake, CN II-XII Intact, Oriented x3 - Psychiatric Exam Psychiatric exam: Normal Affect, Normal Mood - Skin Skin Exam: Dry, Normal Color, Warm Assessment and Plan - Assessment and Plan (Free Text) Assessment: UTI + urinary frequency today can not quanitify for how long UA ordered 04/08 - 3 WBC, nitrites, will f/u repeat urine culture Urine Culture 04/03 trace blood but negative for Leukocyte esterase. Urine culture 03/18 negative Urine culture 03/14 (+) E. Faecalis Gait Instability Per ortho: No acute fracture noted on imaging. No acute ortho intervention at this time. Pt can follow up outpatient. Pt/OT recommendations. Pt will be counseled on following up with appointments. Patient can be toe touch weight bearing right leg at this time 04/04/2016 PT eval - TOLERATED ACTIVITIES AND OOB TO CHAIR W/ MOD A ; ABLE TO HAVE GOOD CARRY OVER OF R LE NWB AND NEEDING MOD A FOR GAIT. LIMITED DISTANCE DUE TO POOR ENDURANCE FOR GAIT AND TODAY W/ BACK AND ABD PAIN. ? PT recs --> LAXMI Abdominal Pain Abdominal US: Gallstones, no cholecystitis, no hydronephrosis. trace ascites ( see full report) Abd/pelv CT ordered 03/19/16- Results - Aneursmal dilatation of ascending thoracic aorta; Currently 4.5 cm. 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 Tylenol 650 mg PO Q6 PRN mild pain Oxycodone 5mg q8 prn severe pain Sacral decubits Wound care following - recommending medihoney covered with bordered telfa dressing to right lower buttocks stage 2 pressure ulcer daily. Pt is OOB to chair with help from PT daily Order placed for turning patient Q2H BPH Pyridium 200 mg PO TIDPC 04/[address] Hughes: Suggest starting pyridium repeat psa in 2 to 3 weeks continue flomax. On discharge pt should be referred for urological re- evaluation/ Flomax 0.4 mg PO daily Proscar 5 mg PO daily Onychomycosis podiatry consult - Dr. Dixon Prophylactic Measure Labs Q3Days Heparin 5000 units SC Q8H A and D ointment TOP Q*H Colace 100 mg PO daily for constipation likely secondary to pain meds Miralax 17gm PO BID for constipation likely secondary to pain meds Social Work - Giuseppe is homeless. will follow up to see which services are available <Lionel Santo - Last Filed: 06/19/16 08:12> Objective - Vital Signs/Intake and Output Vital Signs (last 24 hours): Temp Pulse Resp BP Pulse Ox 98.2 F 79 20 106/67 96 06/19/16 00:28 06/19/16 00:28 06/19/16 00:28 06/19/16 00:28 06/19/16 00:28 Intake and Output: 06/19/16 06/19/16 06:59 18:59 Intake Total 300 Balance 300 - Medications Medications: Current Medications Acetaminophen (Tylenol 325mg Tab) 650 mg PO Q6 PRN PRN Reason: Pain, Mild (1-3) Last Admin: 06/14/16 01:00 Dose: 650 mg Carbamide Peroxide (Debrox Ear Drops) 1 ml AU BID [facility] Last Admin: 06/18/16 18:25 Dose: 5 drop Clotrimazole (Lotrimin 1%) 0 gm TOP BID [facility] Last Admin: 06/18/16 18:26 Dose: 1 applic Docusate Sodium (Colace) 100 mg PO BID [facility] Last Admin: 06/18/16 18:25 Dose: 100 mg Famotidine (Pepcid) 20 mg PO BID [facility] Last Admin: 06/18/16 18:26 Dose: 20 mg Heparin Sodium (Porcine) (Heparin) 5,000 units SC Q8 [facility] Last Admin: 06/19/16 05:55 Dose: 5,000 units Magnesium Oxide (Mag-Ox) 400 mg PO BID [facility] Last Admin: 06/18/16 18:26 Dose: 400 mg Polyethylene Glycol (Miralax) 17 gm PO Q2D [facility] Last Admin: 06/18/16 14:43 Dose: Not Given Silver Sulfadiazine (Silvadene 1% 20 Gm) 0 ea TOP Q12H [facility] Last Admin: 06/19/16 04:28 Dose: 1 applic Sodium Chloride (Sodium Chloride Tab) 1 gm PO DAILY@1330 [facility] Last Admin: 06/18/16 14:40 Dose: 1 gm Tamsulosin HCl (Flomax) 0.8 mg PO DAILY [facility] Last Admin: 06/18/16 09:36 Dose: 0.8 mg Tramadol HCl (Ultram) 25 mg PO TID PRN PRN Reason: Pain, moderate (4-7) Last Admin: 06/18/16 09:35 Dose: 25 mg - Labs Labs: 06/19/16 06:49 06/19/16 06:49 Attending/Attestation - Attestation I have personally seen and examined this patient.: Yes I have fully participated in the care of the patient.: Yes I have reviewed all pertinent clinical information, including history, physical exam and plan: Yes
[2016-04-09] MEDS: oxyCODONE 5 mg Immediate Release Tab PO PRN (11:18)
[2016-04-09] MEDS: Potassium & Sodium Phosphate PO SCH ×3 (11:22→17:40)
[2016-04-10] MEDS: Vitamins A & D Oint UD Foilpak TOP SCH ×3 (00:59→16:57)
[2016-04-10 07:29] LABS: BASO % 0.7 % (0.0-2.0); EOS # 0.1 K/uL (0.0-0.7); LYMPH # 1.3 K/uL (1.0-4.3); MEAN CELL VOLUME 90.5 fL (80.0-94.0); MEAN CORPUSCULAR HEMOGLOBIN 30.4 pg (27.0-31.0); MEAN CORPUSCULAR HGB CONC 33.6 g/dL (33.0-37.0); MEAN PLATELET VOLUME 8.5 fL (7.2-11.7); MONO # 0.5 K/uL (0.0-0.8); NEUT # 3.1 K/uL (1.8-7.0); NEUT % 61.3 % (50.0-75.0); RBC 3.61 Mil/uL (4.40-5.90); RED CELL DISTRIBUTION WIDTH 18.6 % (11.5-14.5)
[2016-04-10 07:33] LABS: ALBUMIN 3.7 g/dL (3.5-5.0)
[2016-04-10 07:35] LABS: GFR AFRICAN-AMERICAN > 60; GFR NON-AFRICAN AMERICAN > 60
[2016-04-10 07:36] LABS: ALB/GLOB RATIO 0.9 (1.0-2.1); ALT/SGPT 37 U/L (21-72); AST/SGOT 26 U/L (17-59); BLOOD UREA NITROGEN 16 mg/dL (9-20)
[2016-04-10 07:37] LABS: CALCIUM 8.8 mg/dl (8.6-10.4); MAGNESIUM 1.6 mg/dL (1.6-2.3)
[2016-04-10] MEDS: Potassium & Sodium Phosphate PO SCH ×3 (09:20→17:00)
--- NOTE | 2016-04-10 13:30 | CP.PCM.PN ---
<Juan Pablo Ny - Last Filed: 04/10/16 13:31> Subjective - Date & Time of Evaluation Date of Evaluation: 04/10/16 Time of Evaluation: 08:55 - Subjective Subjective: PGY-[address] Wiggins's Service: Patient seen and examined at bedside. Pt sitting in chair next to bed. Nursing reports no acute events overnight. Patient c/o generalized pain on "his right side" from his RUQ of his abdomen all the way down to his foot. He specifically points out right hip pain. He answers affirmatively when asked if he got out of bed recently. He was concerned about his urine changing color to red, but it was explained to him that was side effect of pyridium for his UTI. He denies dysuria or increased frequency today. He admits to tolerating his diet well. He admits to moving his bowels normally this AM. He otherwise denies any acute complaints including fever, chills, cough, shortness of breath, chest pain, nausea, vomiting. Objective - Vital Signs/Intake and Output Vital Signs (last 24 hours): Temp Pulse Resp BP Pulse Ox 97.8 F 66 20 114/70 96 04/10/16 08:00 04/10/16 08:00 04/10/16 08:00 04/10/16 08:00 04/10/16 08:00 Intake and Output: 04/10/16 04/10/16 06:59 18:59 Intake Total 100 Balance 100 - Medications Medications: Current Medications Acetaminophen (Tylenol 325mg Tab) 650 mg PO Q6 [facility] Last Admin: 04/10/16 12:32 Dose: 650 mg Finasteride (Proscar) 5 mg PO DAILY [facility] Last Admin: 04/10/16 09:20 Dose: 5 mg Heparin Sodium (Porcine) (Heparin) 5,000 units SC Q8 [facility] Last Admin: 04/10/16 06:25 Dose: 5,000 units Oxycodone HCl (Oxycodone Immediate Release Tab) 5 mg PO Q8H PRN PRN Reason: Pain, severe (8-10) Last Admin: 04/09/16 11:18 Dose: 5 mg Phenazopyridine HCl (Pyridium) 200 mg PO TIDPC [facility] Last Admin: 04/10/16 12:29 Dose: 200 mg Polyethylene Glycol (Miralax) 17 gm PO BID [facility] Last Admin: 04/02/16 19:10 Dose: Not Given Potassium Phos/Sodium Phos (Neutra-Phos) 1 pkt PO TID [facility] Last Admin: 04/10/16 09:20 Dose: 1 pkt Tamsulosin HCl (Flomax) 0.4 mg PO DAILY [facility] Last Admin: 04/10/16 09:18 Dose: 0.4 mg Vitamin A (Vitamin A & D Oint Ud Foilpak) 1 ea TOP Q8H [facility] Last Admin: 04/10/16 09:18 Dose: 1 ea - Labs Labs: 04/10/16 07:18 04/10/16 07:18 - Constitutional Appears: Non-toxic, No Acute Distress, Cachectic, Chronically Ill - Head Exam Head Exam: ATRAUMATIC, NORMOCEPHALIC - Eye Exam Eye Exam: EOMI, Normal appearance Pupil Exam: PERRL - ENT Exam ENT Exam: Mucous Membranes Moist - Respiratory Exam Respiratory Exam: Clear to Ausculation Bilateral, NORMAL BREATHING PATTERN - Cardiovascular Exam Cardiovascular Exam: REGULAR RHYTHM, +S1, +S2 - GI/Abdominal Exam GI & Abdominal Exam: Soft, Tenderness (RUQ, 2/10 pain), Normal Bowel Sounds Additional comments: hernia noted in pelvic area - Extremities Exam Extremities Exam: Pedal Edema, Tenderness - Back Exam Additional comments: sacral ulcer noted - Neurological Exam Neurological Exam: Alert, Awake, Oriented x3 - Psychiatric Exam Psychiatric exam: Normal Affect, Normal Mood - Skin Skin Exam: Dry, Normal Color, Warm Assessment and Plan - Assessment and Plan (Free Text) Assessment: UTI + urinary frequency today can not quantify for how long UA ordered 04/08 - 3 WBC, nitrites Urine Culture 04/09 No growth Urine Culture 04/03 trace blood but negative for Leukocyte esterase. Urine culture 03/18 negative Urine culture 03/14 (+) E. Faecalis Gait Instability Per ortho: No acute fracture noted on imaging. No acute ortho intervention at this time. Pt can follow up outpatient. Pt/OT recommendations. Pt will be counseled on following up with appointments. Patient can be toe touch weight bearing right leg at this time 04/07/2016 PT eval - TOLERATED ACTIVITIES AND OOB TO CHAIR W/ MOD A ; ABLE TO HAVE GOOD CARRY OVER OF R LE NWB AND NEEDING MOD A FOR GAIT. LIMITED DISTANCE DUE TO POOR ENDURANCE FOR GAIT AND TODAY W/ BACK AND ABD PAIN. ? PT recs --> LAXMI Abdominal Pain Abdominal US: Gallstones, no cholecystitis, no hydronephrosis. trace ascites ( see full report) Abd/pelv CT ordered 03/19/16- Results - Aneursmal dilatation of ascending thoracic aorta; Currently 4.5 cm. 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 Tylenol 650 mg PO Q6 PRN mild pain Oxycodone 5mg q8 prn severe pain Sacral decubits Wound care following - recommending medihoney covered with bordered telfa dressing to right lower buttocks stage 2 pressure ulcer daily. Pt is OOB to chair with help from PT daily Order placed for turning patient Q2H BPH Pyridium 200 mg PO TIDPC 04/[address] Hughes: Suggest starting pyridium repeat psa in 2 to 3 weeks continue flomax. On discharge pt should be referred for urological re- evaluation/ Flomax 0.4 mg PO daily Proscar 5 mg PO daily Onychomycosis podiatry consult - Dr. Dixon Prophylactic Measure Labs Q3Days Heparin 5000 units SC Q8H A and D ointment TOP Q*H Colace 100 mg PO daily for constipation likely secondary to pain meds Miralax 17gm PO BID for constipation likely secondary to pain meds Social Work - Giuseppe is homeless. will follow up to see which services are available <Jose Wiggins - Last Filed: 04/10/16 17:58> Objective - Vital Signs/Intake and Output Vital Signs (last 24 hours): Temp Pulse Resp BP Pulse Ox 97.6 F 91 H 20 102/64 98 04/10/16 15:00 04/10/16 15:00 04/10/16 15:00 04/10/16 15:00 04/10/16 15:00 Intake and Output: 04/10/16 04/10/16 06:59 18:59 Intake Total 100 Balance 100 - Medications Medications: Current Medications Acetaminophen (Tylenol 325mg Tab) 650 mg PO Q6 [facility] Last Admin: 04/10/16 12:32 Dose: 650 mg Finasteride (Proscar) 5 mg PO DAILY [facility] Last Admin: 04/10/16 09:20 Dose: 5 mg Heparin Sodium (Porcine) (Heparin) 5,000 units SC Q8 [facility] Last Admin: 04/10/16 14:52 Dose: 5,000 units Oxycodone HCl (Oxycodone Immediate Release Tab) 5 mg PO Q8H PRN PRN Reason: Pain, severe (8-10) Last Admin: 04/09/16 11:18 Dose: 5 mg Phenazopyridine HCl (Pyridium) 200 mg PO TIDPC [facility] Last Admin: 04/10/16 17:00 Dose: 200 mg Polyethylene Glycol (Miralax) 17 gm PO BID [facility] Last Admin: 04/02/16 19:10 Dose: Not Given Potassium Phos/Sodium Phos (Neutra-Phos) 1 pkt PO TID [facility] Last Admin: 04/10/16 17:00 Dose: 1 pkt Tamsulosin HCl (Flomax) 0.4 mg PO DAILY [facility] Last Admin: 04/10/16 09:18 Dose: 0.4 mg Vitamin A (Vitamin A & D Oint Ud Foilpak) 1 ea TOP Q8H [facility] Last Admin: 04/10/16 16:57 Dose: 1 ea - Labs Labs: 04/10/16 07:18 04/10/16 07:18 Attending/Attestation - Attestation I have personally seen and examined this patient.: Yes I have fully participated in the care of the patient.: Yes I have reviewed all pertinent clinical information, including history, physical exam and plan: Yes Notes (Text): 04/10/16 17:57 Patient was seen and examined at bedside with the resident Patient is sitting in the chair and appears comfortable Continue physical therapy daily Continue current management Discharge planning when the patient is physically stronger
[2016-04-11] MEDS: Vitamins A & D Oint UD Foilpak TOP SCH ×3 (01:02→16:34)
[2016-04-11 08:10] LABS: MAGNESIUM 1.6 mg/dL (1.6-2.3)
--- NOTE | 2016-04-11 12:13 | CP.PCM.PN ---
<Juan Pablo Ny - Last Filed: 04/11/16 19:26> Subjective - Date & Time of Evaluation Date of Evaluation: 04/11/16 Time of Evaluation: 09:40 - Subjective Subjective: PGY-[address] Wiggins's service: Patient seen and examined at bedside. Pt found sitting in chair next to bed. Nursing reports no acute events overnight. Patient c/o right hip and lower abdomen. He reports being up to the bathroom on his own. He denies dysuria or increased frequency today. He admits to tolerating his diet well. He admits to moving his bowels yesterday. He otherwise denies any acute complaints including fever, chills, cough, shortness of breath, chest pain, nausea, vomiting. Objective - Vital Signs/Intake and Output Vital Signs (last 24 hours): Temp Pulse Resp BP Pulse Ox 98.0 F 66 16 106/65 97 04/11/16 07:00 04/11/16 07:00 04/11/16 07:00 04/11/16 07:00 04/11/16 07:00 Intake and Output: 04/11/16 04/11/16 06:59 18:59 Intake Total 360 240 Balance 360 240 - Medications Medications: Current Medications Acetaminophen (Tylenol 325mg Tab) 650 mg PO Q6 [facility] Last Admin: 04/11/16 05:22 Dose: 650 mg Finasteride (Proscar) 5 mg PO DAILY [facility] Last Admin: 04/11/16 10:00 Dose: 5 mg Heparin Sodium (Porcine) (Heparin) 5,000 units SC Q8 [facility] Last Admin: 04/11/16 05:23 Dose: 5,000 units Oxycodone HCl (Oxycodone Immediate Release Tab) 5 mg PO Q8H PRN PRN Reason: Pain, severe (8-10) Last Admin: 04/09/16 11:18 Dose: 5 mg Phenazopyridine HCl (Pyridium) 200 mg PO TIDPC [facility] Last Admin: 04/11/16 09:56 Dose: 200 mg Polyethylene Glycol (Miralax) 17 gm PO BID [facility] Last Admin: 04/02/16 19:10 Dose: Not Given Potassium Phos/Sodium Phos (Neutra-Phos) 1 pkt PO TID [facility] Last Admin: 04/10/16 17:00 Dose: 1 pkt Tamsulosin HCl (Flomax) 0.4 mg PO DAILY [facility] Last Admin: 04/11/16 09:56 Dose: 0.4 mg Vitamin A (Vitamin A & D Oint Ud Foilpak) 1 ea TOP Q8H [facility] Last Admin: 04/11/16 09:56 Dose: 1 ea - Labs Labs: 04/10/16 07:18 04/10/16 07:18 - Constitutional Appears: Non-toxic, No Acute Distress, Chronically Ill - Head Exam Head Exam: ATRAUMATIC, NORMOCEPHALIC - Eye Exam Eye Exam: EOMI, Normal appearance Pupil Exam: PERRL - ENT Exam ENT Exam: Mucous Membranes Moist - Neck Exam Neck Exam: Normal Inspection - Respiratory Exam Respiratory Exam: Clear to Ausculation Bilateral, NORMAL BREATHING PATTERN. absent: Rales, Rhonchi, Wheezes - Cardiovascular Exam Cardiovascular Exam: REGULAR RHYTHM, +S1, +S2 - GI/Abdominal Exam GI & Abdominal Exam: Soft, Tenderness (RUQ 2/10), Normal Bowel Sounds Additional comments: hernia in pelvic area - Back Exam Back Exam: absent: CVA tenderness (L), CVA tenderness (R) Additional comments: sacral ulcer noted - Neurological Exam Neurological Exam: Alert, Awake, Oriented x3 - Psychiatric Exam Psychiatric exam: Normal Affect, Normal Mood - Skin Skin Exam: Dry, Normal Color, Warm Assessment and Plan - Assessment and Plan (Free Text) Assessment: UTI + urinary frequency today can not quantify for how long UA ordered 04/08 - 3 WBC, nitrites Urine Culture 04/09 No growth Urine Culture 04/03 trace blood but negative for Leukocyte esterase. Urine culture 03/18 negative Urine culture 03/14 (+) E. Faecalis Gait Instability Per ortho: Independent to bathroom with walker. No acute fracture noted on imaging. No acute ortho intervention at this time. Pt can follow up outpatient. Pt/OT recommendations. Pt will be counseled on following up with appointments. Patient can be toe touch weight bearing right leg at this time 04/07/2016 PT eval - TOLERATED ACTIVITIES AND OOB TO CHAIR W/ MOD A ; ABLE TO HAVE GOOD CARRY OVER OF R LE NWB AND NEEDING MOD A FOR GAIT. LIMITED DISTANCE DUE TO POOR ENDURANCE FOR GAIT AND TODAY W/ BACK AND ABD PAIN. ? PT recs --> LAXMI Abdominal Pain Abdominal US: Gallstones, no cholecystitis, no hydronephrosis. trace ascites ( see full report) Abd/pelv CT ordered 03/19/16- Results - Aneursmal dilatation of ascending thoracic aorta; Currently 4.5 cm. 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 Tylenol 650 mg PO Q6 PRN mild pain Oxycodone 5mg q8 prn severe pain Sacral decubits Wound care following - recommending medihoney covered with bordered telfa dressing to right lower buttocks stage 2 pressure ulcer daily. Pt is OOB to chair with help from PT daily Order placed for turning patient Q2H BPH Pyridium 200 mg PO TIDPC 04/[address] Hughes: Suggest starting pyridium repeat psa in 2 to 3 weeks continue flomax. On discharge pt should be referred for urological re- evaluation/ Flomax 0.4 mg PO daily Proscar 5 mg PO daily Onychomycosis podiatry consult - Dr. Dixon Prophylactic Measure Labs Q3Days Heparin 5000 units SC Q8H A and D ointment TOP Q*H Colace 100 mg PO daily for constipation likely secondary to pain meds Social Work - Giuseppe is homeless. will follow up to see which services are available <Jose Wiggins - Last Filed: 04/12/16 08:32> Objective - Vital Signs/Intake and Output Vital Signs (last 24 hours): Temp Pulse Resp BP Pulse Ox 97.9 F 70 20 100/59 L 96 04/12/16 08:16 04/12/16 08:16 04/12/16 08:16 04/12/16 08:16 04/12/16 08:16 Intake and Output: 04/12/16 04/12/16 06:59 18:59 Intake Total 480 Output Total 400 Balance 80 - Medications Medications: Current Medications Acetaminophen (Tylenol 325mg Tab) 650 mg PO Q6 [facility] Last Admin: 04/12/16 05:35 Dose: 650 mg Finasteride (Proscar) 5 mg PO DAILY [facility] Last Admin: 04/11/16 10:00 Dose: 5 mg Heparin Sodium (Porcine) (Heparin) 5,000 units SC Q8 [facility] Last Admin: 04/12/16 05:35 Dose: 5,000 units Oxycodone HCl (Oxycodone Immediate Release Tab) 5 mg PO Q8H PRN PRN Reason: Pain, severe (8-10) Last Admin: 04/09/16 11:18 Dose: 5 mg Phenazopyridine HCl (Pyridium) 200 mg PO TIDPC [facility] Last Admin: 04/11/16 18:08 Dose: 200 mg Polyethylene Glycol (Miralax) 17 gm PO BID [facility] Last Admin: 04/02/16 19:10 Dose: Not Given Potassium Phos/Sodium Phos (Neutra-Phos) 1 pkt PO TID [facility] Last Admin: 04/11/16 18:09 Dose: 1 pkt Tamsulosin HCl (Flomax) 0.4 mg PO DAILY [facility] Last Admin: 04/11/16 09:56 Dose: 0.4 mg Vitamin A (Vitamin A & D Oint Ud Foilpak) 1 ea TOP Q8H [facility] Last Admin: 04/12/16 00:19 Dose: 1 ea - Labs Labs: 04/10/16 07:18 04/10/16 07:18 Attending/Attestation - Attestation I have personally seen and examined this patient.: Yes I have fully participated in the care of the patient.: Yes I have reviewed all pertinent clinical information, including history, physical exam and plan: Yes Notes (Text): 04/12/16 08:31 Patient was seen and examined at bedside with the resident Patient is sitting in the chair and appears more comfortable today However patient has difficulty in ambulation We'll continue physical therapy daily and continue pain management Discharge plan with the patient is stronger and able to ambulate more freely
[2016-04-11] MEDS: Potassium & Sodium Phosphate PO SCH ×3 (14:10→18:09)
--- NOTE | 2016-04-11 15:39 | CP.PCM.PN ---
Subjective - Date & Time of Evaluation Date of Evaluation: 04/11/16 Time of Evaluation: 12:00 - Subjective Subjective: Patient sitting in chair sleeping. When awakened, he says he is poor. He says that he is still having a lot of pain in his right hip and lower abdomen. He says he can not put shoes or socks on without help. He says he needs help to go to bathroom. No new complaints of pain. Objective - Vital Signs/Intake and Output Vital Signs (last 24 hours): Temp Pulse Resp BP Pulse Ox 98.0 F 66 16 106/65 97 04/11/16 07:00 04/11/16 07:00 04/11/16 07:00 04/11/16 07:00 04/11/16 07:00 Intake and Output: 04/11/16 04/11/16 06:59 18:59 Intake Total 360 240 Balance 360 240 - Medications Medications: Current Medications Acetaminophen (Tylenol 325mg Tab) 650 mg PO Q6 [facility] Last Admin: 04/11/16 12:11 Dose: 650 mg Finasteride (Proscar) 5 mg PO DAILY [facility] Last Admin: 04/11/16 10:00 Dose: 5 mg Heparin Sodium (Porcine) (Heparin) 5,000 units SC Q8 [facility] Last Admin: 04/11/16 14:06 Dose: 5,000 units Oxycodone HCl (Oxycodone Immediate Release Tab) 5 mg PO Q8H PRN PRN Reason: Pain, severe (8-10) Last Admin: 04/09/16 11:18 Dose: 5 mg Phenazopyridine HCl (Pyridium) 200 mg PO TIDPC [facility] Last Admin: 04/11/16 14:06 Dose: 200 mg Polyethylene Glycol (Miralax) 17 gm PO BID [facility] Last Admin: 04/02/16 19:10 Dose: Not Given Potassium Phos/Sodium Phos (Neutra-Phos) 1 pkt PO TID [facility] Last Admin: 04/11/16 14:11 Dose: 1 pkt Tamsulosin HCl (Flomax) 0.4 mg PO DAILY [facility] Last Admin: 04/11/16 09:56 Dose: 0.4 mg Vitamin A (Vitamin A & D Oint Ud Foilpak) 1 ea TOP Q8H [facility] Last Admin: 04/11/16 09:56 Dose: 1 ea - Labs Labs: 01/30/17 07:18 04/10/16 07:18 - Constitutional Appears: No Acute Distress - Extremities Exam Additional comments: +ROM toes/ankle, sensation intact, calves soft NT neg homans. Pain with ROM right hip Assessment and Plan (1) Acetabular protrusion Assessment & Plan: Chronic continue TTWB per Dr. Pino d/w PT, patient able to maintain NWB/TTWB and needs encouragement but is independent to bathroom with walker Cont PT orthopedically stable patient to f/u as outpatient Status: Acute
[2016-04-12] MEDS: Vitamins A & D Oint UD Foilpak TOP SCH ×3 (00:19→16:39)
[2016-04-12 09:03] LABS: MAGNESIUM 1.8 mg/dL (1.6-2.3)
[2016-04-12 10:08] LABS: ALBUMIN 3.4 g/dL (3.5-5.0)
[2016-04-12 10:10] LABS: GFR AFRICAN-AMERICAN > 60; GFR NON-AFRICAN AMERICAN > 60
[2016-04-12 10:11] LABS: ALT/SGPT 34 U/L (21-72); AST/SGOT 26 U/L (17-59); BLOOD UREA NITROGEN 16 mg/dL (9-20); CALCIUM 8.5 mg/dl (8.6-10.4)
[2016-04-12] MEDS: Potassium & Sodium Phosphate PO SCH ×3 (11:13→17:36)
--- NOTE | 2016-04-12 13:30 | CP.PCM.PN ---
<DanyelltaishaJuan Pablo - Last Filed: 04/12/16 13:26> Subjective - Date & Time of Evaluation Date of Evaluation: 04/12/16 Time of Evaluation: 07:10 - Subjective Subjective: PGY-[address] Wiggins's service: Patient seen and examined at bedside. Pt found lying comfortably in bed. Nursing reports no acute events overnight. Patient c/o generalized pain on his right side that is a chronic complaint. He reports being up to the bathroom on his own. Physical therapy states his strength is improving, and can ambulate with minimal assistance. He denies dysuria or increased frequency today. Orthopedic team declared him stable from their perspective, and pt could follow up outpatient. He reports good appetite and normal bowel movements. No new complaints of pain. He denies fever, chills, cough, shortness of breath, chest pain, nausea, vomiting. Objective - Vital Signs/Intake and Output Vital Signs (last 24 hours): Temp Pulse Resp BP Pulse Ox 97.9 F 70 20 100/59 L 96 04/12/16 08:16 04/12/16 08:16 04/12/16 08:16 04/12/16 08:16 04/12/16 08:16 Intake and Output: 04/12/16 04/12/16 06:59 18:59 Intake Total 480 Output Total 400 Balance 80 - Medications Medications: Current Medications Acetaminophen (Tylenol 325mg Tab) 650 mg PO Q6 [facility] Last Admin: 04/12/16 11:11 Dose: 650 mg Finasteride (Proscar) 5 mg PO DAILY [facility] Last Admin: 04/12/16 11:10 Dose: 5 mg Heparin Sodium (Porcine) (Heparin) 5,000 units SC Q8 [facility] Last Admin: 04/12/16 05:35 Dose: 5,000 units Oxycodone HCl (Oxycodone Immediate Release Tab) 5 mg PO Q8H PRN PRN Reason: Pain, severe (8-10) Last Admin: 04/09/16 11:18 Dose: 5 mg Phenazopyridine HCl (Pyridium) 200 mg PO TIDPC [facility] Last Admin: 04/12/16 11:11 Dose: 200 mg Polyethylene Glycol (Miralax) 17 gm PO BID [facility] Last Admin: 04/02/16 19:10 Dose: Not Given Potassium Phos/Sodium Phos (Neutra-Phos) 1 pkt PO TID [facility] Last Admin: 04/12/16 11:13 Dose: 1 pkt Tamsulosin HCl (Flomax) 0.4 mg PO DAILY [facility] Last Admin: 04/12/16 11:11 Dose: 0.4 mg Vitamin A (Vitamin A & D Oint Ud Foilpak) 1 ea TOP Q8H [facility] Last Admin: 04/12/16 11:10 Dose: 1 ea - Labs Labs: 04/10/16 07:18 04/12/16 08:33 - Constitutional Appears: Non-toxic, No Acute Distress, Chronically Ill - Head Exam Head Exam: ATRAUMATIC, NORMOCEPHALIC - Eye Exam Eye Exam: EOMI, Normal appearance Pupil Exam: PERRL - ENT Exam ENT Exam: Mucous Membranes Moist - Neck Exam Neck Exam: Normal Inspection - Respiratory Exam Respiratory Exam: Clear to Ausculation Bilateral, NORMAL BREATHING PATTERN. absent: Accessory Muscle Use, Chest Wall Tenderness, Rales, Rhonchi, Wheezes - Cardiovascular Exam Cardiovascular Exam: REGULAR RHYTHM, +S1, +S2 - GI/Abdominal Exam GI & Abdominal Exam: Soft, Normal Bowel Sounds. absent: Tenderness Additional comments: hernia in pelvic area - Extremities Exam Extremities Exam: Normal Inspection. absent: Pedal Edema, Tenderness - Back Exam Back Exam: absent: CVA tenderness (L), CVA tenderness (R) - Neurological Exam Neurological Exam: Alert, Awake, Oriented x3 - Psychiatric Exam Psychiatric exam: Normal Affect, Normal Mood - Skin Skin Exam: Normal Color, Warm Assessment and Plan - Assessment and Plan (Free Text) Assessment: UTI Urine Culture 04/09 No growth Urine Culture 04/03 trace blood but negative for Leukocyte esterase. Urine culture 03/18 negative Urine culture 03/14 (+) E. Faecalis Gait Instability 04/12: Per ortho: Independent to bathroom with walker. No acute fracture noted on imaging. No acute ortho intervention at this time. Pt can follow up outpatient. Patient can be toe touch weight bearing right leg at this time 04/11/2016 PT eval - DECREASED GAIT DUE TO R HIP AND B/L GROIN PAIN. TOLERATED OOB TO CH ~ 2 HRS, PATIENT ALTERNATES B/W TTWB AND NWB W/ MIN A. CLEARED FOR AMBULATING TO THE BATHROOM W/ NURSING STAFF DURING AM/PM CARE. PT recs --> Continued PT Abdominal Pain Abdominal US: Gallstones, no cholecystitis, no hydronephrosis. trace ascites ( see full report) Abd/pelv CT ordered 03/19/16- Results - Aneursmal dilatation of ascending thoracic aorta; Currently 4.5 cm. 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 Tylenol 650 mg PO Q6 PRN mild pain Oxycodone 5mg q8 prn severe pain Sacral decubits Wound care following - recommending medihoney covered with bordered telfa dressing to right lower buttocks stage 2 pressure ulcer daily. Pt is OOB to chair with help from PT daily Order placed for turning patient Q2H BPH Pyridium 200 mg PO TIDPC 04/[address] Hughes: Suggest starting pyridium repeat psa in 2 to 3 weeks continue flomax. On discharge pt should be referred for urological re- evaluation/ Flomax 0.4 mg PO daily Proscar 5 mg PO daily Onychomycosis podiatry consult - Dr. Dixon Prophylactic Measure Labs Q3Days Heparin 5000 units SC Q8H A and D ointment TOP Q*H Colace 100 mg PO daily for constipation likely secondary to pain meds Social Work - Giuseppe is homeless. will follow up to see which services are available <Jose Wiggins - Last Filed: 04/12/16 18:35> Objective - Vital Signs/Intake and Output Vital Signs (last 24 hours): Temp Pulse Resp BP Pulse Ox 98.3 F 65 20 100/59 L 96 04/12/16 14:00 04/12/16 18:14 04/12/16 14:00 04/12/16 16:43 04/12/16 16:43 Intake and Output: 04/12/16 04/12/16 06:59 18:59 Intake Total 480 Output Total 400 Balance 80 - Medications Medications: Current Medications Acetaminophen (Tylenol 325mg Tab) 650 mg PO Q6 [facility] Last Admin: 04/12/16 17:37 Dose: 650 mg Finasteride (Proscar) 5 mg PO DAILY [facility] Last Admin: 04/12/16 11:10 Dose: 5 mg Heparin Sodium (Porcine) (Heparin) 5,000 units SC Q8 [facility] Last Admin: 04/12/16 14:01 Dose: 5,000 units Oxycodone HCl (Oxycodone Immediate Release Tab) 5 mg PO Q8H PRN PRN Reason: Pain, severe (8-10) Last Admin: 04/09/16 11:18 Dose: 5 mg Phenazopyridine HCl (Pyridium) 200 mg PO TIDPC [facility] Last Admin: 04/12/16 17:37 Dose: 200 mg Polyethylene Glycol (Miralax) 17 gm PO BID [facility] Last Admin: 04/02/16 19:10 Dose: Not Given Potassium Phos/Sodium Phos (Neutra-Phos) 1 pkt PO TID [facility] Last Admin: 04/12/16 17:36 Dose: 1 pkt Tamsulosin HCl (Flomax) 0.4 mg PO DAILY [facility] Last Admin: 04/12/16 11:11 Dose: 0.4 mg Vitamin A (Vitamin A & D Oint Ud Foilpak) 1 ea TOP Q8H [facility] Last Admin: 04/12/16 16:39 Dose: 1 ea - Labs Labs: 04/10/16 07:18 04/12/16 08:33 Attending/Attestation - Attestation I have personally seen and examined this patient.: Yes I have fully participated in the care of the patient.: Yes I have reviewed all pertinent clinical information, including history, physical exam and plan: Yes Notes (Text): 04/12/16 18:35 Patient was seen and examined at bedside with the resident Patient appears comfortable and sitting in chair We will continue daily physical therapy and encourage ambulation Continue pain management
[2016-04-13] MEDS: Vitamins A & D Oint UD Foilpak TOP SCH ×3 (00:14→17:00)
[2016-04-13 08:44] LABS: BASO % 0.7 % (0.0-2.0); EOS # 0.1 K/uL (0.0-0.7); EOS % 2.1 % (0.0-4.0); LYMPH # 1.4 K/uL (1.0-4.3); LYMPH % 34.6 % (20.0-40.0); MEAN CELL VOLUME 91.7 fL (80.0-94.0); MEAN CORPUSCULAR HEMOGLOBIN 30.3 pg (27.0-31.0); MEAN PLATELET VOLUME 8.4 fL (7.2-11.7); MONO # 0.5 K/uL (0.0-0.8); MONO % 12.8 % (0.0-10.0); NEUT % 49.8 % (50.0-75.0); NRBC % 0.1 % (0.0-2.0); RBC 3.31 Mil/uL (4.40-5.90); RED CELL DISTRIBUTION WIDTH 18.8 % (11.5-14.5); WHITE BLOOD COUNT 4.1 K/uL (4.8-10.8)
[2016-04-13 08:49] LABS: ALBUMIN 3.3 g/dL (3.5-5.0)
[2016-04-13 08:52] LABS: AST/SGOT 22 U/L (17-59); BLOOD UREA NITROGEN 16 mg/dL (9-20); GFR AFRICAN-AMERICAN > 60; GFR NON-AFRICAN AMERICAN > 60
[2016-04-13 08:53] LABS: ALT/SGPT 29 U/L (21-72); CALCIUM 8.6 mg/dl (8.6-10.4); MAGNESIUM 1.6 mg/dL (1.6-2.3)
[2016-04-13] MEDS: Potassium & Sodium Phosphate PO SCH ×3 (11:34→18:12)
--- NOTE | 2016-04-13 22:18 | CP.PCM.PN ---
<Sukhwinder Petersen - Last Filed: 04/13/16 23:02> Subjective - Date & Time of Evaluation Date of Evaluation: 04/13/16 Time of Evaluation: 07:40 - Subjective Subjective: PGY-[address] Wiggins's service: Patient seen and examined at bedside. No overnight events per nursing. Pt found lying comfortably in bed. Patient continues to c/o generalized pain on his right side (chronic). He denies dysuria or increased frequency today. Admits to good appetite and +BM, low urine output. Denies f/c, cough, shortness of breath , chest pain, nausea, vomiting, or any additional acute complaints. Objective - Vital Signs/Intake and Output Vital Signs (last 24 hours): Temp Pulse Resp BP Pulse Ox 98.0 F 86 20 100/65 97 04/13/16 16:00 04/13/16 16:00 04/13/16 16:00 04/13/16 16:00 04/13/16 16:00 Intake and Output: 04/13/16 04/14/16 18:59 06:59 Intake Total 500 Balance 500 - Medications Medications: Current Medications Acetaminophen (Tylenol 325mg Tab) 650 mg PO Q6 [facility] Last Admin: 04/13/16 18:10 Dose: 650 mg Finasteride (Proscar) 5 mg PO DAILY [facility] Last Admin: 04/13/16 11:25 Dose: 5 mg Heparin Sodium (Porcine) (Heparin) 5,000 units SC Q8 [facility] Last Admin: 04/13/16 14:30 Dose: Not Given Oxycodone HCl (Oxycodone Immediate Release Tab) 5 mg PO Q8H PRN PRN Reason: Pain, severe (8-10) Last Admin: 04/09/16 11:18 Dose: 5 mg Phenazopyridine HCl (Pyridium) 200 mg PO TIDPC [facility] Last Admin: 04/13/16 18:12 Dose: 200 mg Polyethylene Glycol (Miralax) 17 gm PO BID [facility] Last Admin: 04/02/16 19:10 Dose: Not Given Potassium Phos/Sodium Phos (Neutra-Phos) 1 pkt PO TID [facility] Last Admin: 04/13/16 18:12 Dose: 1 pkt Tamsulosin HCl (Flomax) 0.4 mg PO DAILY [facility] Last Admin: 04/13/16 11:25 Dose: 0.4 mg Vitamin A (Vitamin A & D Oint Ud Foilpak) 1 ea TOP Q8H [facility] Last Admin: 04/13/16 17:00 Dose: 1 ea - Labs Labs: 04/13/16 08:32 04/13/16 08:32 - Constitutional Appears: Non-toxic, No Acute Distress, Chronically Ill - Head Exam Head Exam: ATRAUMATIC, NORMAL INSPECTION - Eye Exam Eye Exam: EOMI - ENT Exam ENT Exam: Mucous Membranes Moist - Respiratory Exam Respiratory Exam: Clear to Ausculation Bilateral, NORMAL BREATHING PATTERN. absent: Wheezes - Cardiovascular Exam Cardiovascular Exam: REGULAR RHYTHM, +S1, +S2 - GI/Abdominal Exam GI & Abdominal Exam: Soft, Normal Bowel Sounds. absent: Tenderness Additional comments: L hernia in pelvic area - Extremities Exam Extremities Exam: Normal Inspection. absent: Pedal Edema - Neurological Exam Neurological Exam: Alert, Awake, Oriented x3 - Psychiatric Exam Psychiatric exam: Flat Affect - Skin Skin Exam: Dry, Intact, Normal Color Assessment and Plan - Assessment and Plan (Free Text) Plan: UTI Urine Culture 04/09 No growth Urine Culture 04/03 trace blood but negative for Leukocyte esterase. Urine culture 03/18 negative Urine culture 03/14 (+) E. Faecalis Gait Instability 04/12: Per ortho: Independent to bathroom with walker. No acute fracture noted on imaging. No acute ortho intervention at this time. Pt can follow up outpatient. Patient can be toe touch weight bearing right leg at this time 04/11/2016 PT eval - DECREASED GAIT DUE TO R HIP AND B/L GROIN PAIN. TOLERATED OOB TO CH ~ 2 HRS, PATIENT ALTERNATES B/W TTWB AND NWB W/ MIN A. CLEARED FOR AMBULATING TO THE BATHROOM W/ NURSING STAFF DURING AM/PM CARE. PT recs --> Continued PT Abdominal Pain Inguinal hernia with unobstructed bowel loop involvement; Tylenol 650 mg PO Q6 PRN mild pain Oxycodone 5mg q8 prn severe pain Abdominal US: Gallstones, no cholecystitis, no hydronephrosis. trace ascites ( see full report) Abd/pelv CT ordered 03/19/16- Results - Aneursmal dilatation of ascending thoracic aorta; Currently 4.5 cm. 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 Sacral decubits Wound care following - recommending medihoney covered with bordered telfa dressing to right lower buttocks stage 2 pressure ulcer daily. Pt is OOB to chair with help from PT daily Order placed for turning patient Q2H BPH Pyridium 200 mg PO TIDPC Flomax 0.4 mg PO daily Proscar 5 mg PO daily 04/[address] Hughes: Suggest starting pyridium repeat psa in 2 to 3 weeks continue flomax. On discharge pt should be referred for urological re- evaluation/ Onychomycosis podiatry consult - Dr. Dixon Prophylactic Measure Labs Q3Days Heparin 5000 units SC Q8H A and D ointment TOP Q*H HOLD Miralax Colace 100 mg PO daily for constipation - stopped, pt having BMs. Social Work - Patinet is homeless. will follow up to see which services are available <Jose Wiggins - Last Filed: 04/14/16 07:51> Objective - Vital Signs/Intake and Output Vital Signs (last 24 hours): Temp Pulse Resp BP Pulse Ox 97.7 F 69 20 103/60 96 04/14/16 01:16 04/14/16 01:25 04/14/16 01:16 04/14/16 01:16 04/14/16 01:16 Intake and Output: 04/14/16 04/14/16 06:59 18:59 Intake Total 640 Output Total 900 Balance -260 - Medications Medications: Current Medications Acetaminophen (Tylenol 325mg Tab) 650 mg PO Q6 [facility] Last Admin: 04/14/16 05:00 Dose: 650 mg Finasteride (Proscar) 5 mg PO DAILY [facility] Last Admin: 04/13/16 11:25 Dose: 5 mg Heparin Sodium (Porcine) (Heparin) 5,000 units SC Q8 [facility] Last Admin: 04/14/16 05:01 Dose: 5,000 units Oxycodone HCl (Oxycodone Immediate Release Tab) 5 mg PO Q8H PRN PRN Reason: Pain, severe (8-10) Last Admin: 04/09/16 11:18 Dose: 5 mg Phenazopyridine HCl (Pyridium) 200 mg PO TIDPC [facility] Last Admin: 04/13/16 18:12 Dose: 200 mg Polyethylene Glycol (Miralax) 17 gm PO BID [facility] Last Admin: 04/02/16 19:10 Dose: Not Given Potassium Phos/Sodium Phos (Neutra-Phos) 1 pkt PO TID [facility] Last Admin: 04/13/16 18:12 Dose: 1 pkt Tamsulosin HCl (Flomax) 0.4 mg PO DAILY [facility] Last Admin: 04/13/16 11:25 Dose: 0.4 mg Vitamin A (Vitamin A & D Oint Ud Foilpak) 1 ea TOP Q8H [facility] Last Admin: 04/14/16 00:06 Dose: 1 ea - Labs Labs: 04/14/16 07:11 04/14/16 07:11 Attending/Attestation - Attestation I have personally seen and examined this patient.: Yes I have fully participated in the care of the patient.: Yes I have reviewed all pertinent clinical information, including history, physical exam and plan: Yes Notes (Text): 04/14/16 07:50 Patient was seen and examined at bedside with the resident Patient is awake alert and still complains of pain in the right hip We will continue to encourage ambulation Continue pain management Discharge plan when the patient is stronger and able to ambulate
[2016-04-14] MEDS: Vitamins A & D Oint UD Foilpak TOP SCH ×4 (00:06→23:51)
[2016-04-14 07:29] LABS: EOS # 0.1 K/uL (0.0-0.7); EOS % 2.8 % (0.0-4.0); HEMOGLOBIN 9.8 g/dL (12.0-18.0); LYMPH # 1.4 K/uL (1.0-4.3); LYMPH % 38.1 % (20.0-40.0); MEAN CELL VOLUME 91.6 fL (80.0-94.0); MEAN CORPUSCULAR HEMOGLOBIN 30.5 pg (27.0-31.0); MEAN CORPUSCULAR HGB CONC 33.3 g/dL (33.0-37.0); MEAN PLATELET VOLUME 8.4 fL (7.2-11.7); MONO # 0.4 K/uL (0.0-0.8); MONO % 11.1 % (0.0-10.0); NEUT # 1.7 K/uL (1.8-7.0); RBC 3.21 Mil/uL (4.40-5.90); RED CELL DISTRIBUTION WIDTH 19.1 % (11.5-14.5); WHITE BLOOD COUNT 3.7 K/uL (4.8-10.8)
[2016-04-14 07:34] LABS: ALBUMIN 3.5 g/dL (3.5-5.0)
[2016-04-14 07:36] LABS: GFR AFRICAN-AMERICAN > 60; GFR NON-AFRICAN AMERICAN > 60
[2016-04-14 07:37] LABS: ALT/SGPT 40 U/L (21-72); AST/SGOT 36 U/L (17-59); BLOOD UREA NITROGEN 17 mg/dL (9-20); CALCIUM 8.7 mg/dl (8.6-10.4); MAGNESIUM 1.6 mg/dL (1.6-2.3)
[2016-04-14] MEDS: Potassium & Sodium Phosphate PO SCH ×3 (11:05→17:59)
--- NOTE | 2016-04-14 13:53 | CP.PCM.PN ---
<Sukhwinder Petersen - Last Filed: 04/14/16 21:53> Subjective - Date & Time of Evaluation Date of Evaluation: 04/14/16 Time of Evaluation: 07:10 - Subjective Subjective: PGY1 medicine note for Dr. Wiggins. Pt seen and examined bedside. No acute events over night as per nursing. Pt still reports lower abd pain. PT has cleared him to get out of bed and ambulate. Pt was encouraged to walk the floor. Will be discharged when his gait is steady. Pt denied chest pain, dyspnea, d/c/n/v/f/c. Objective - Vital Signs/Intake and Output Vital Signs (last 24 hours): Temp Pulse Resp BP Pulse Ox 97.8 F 83 20 107/66 96 04/14/16 08:15 04/14/16 08:15 04/14/16 08:15 04/14/16 08:15 04/14/16 08:15 Intake and Output: 04/14/16 04/14/16 06:59 18:59 Intake Total 640 Output Total 900 Balance -260 - Medications Medications: Current Medications Acetaminophen (Tylenol 325mg Tab) 650 mg PO Q6 [facility] Last Admin: 04/14/16 12:45 Dose: 650 mg Finasteride (Proscar) 5 mg PO DAILY [facility] Last Admin: 04/14/16 11:06 Dose: 5 mg Heparin Sodium (Porcine) (Heparin) 5,000 units SC Q8 [facility] Last Admin: 04/14/16 05:01 Dose: 5,000 units Oxycodone HCl (Oxycodone Immediate Release Tab) 5 mg PO Q8H PRN PRN Reason: Pain, severe (8-10) Last Admin: 04/09/16 11:18 Dose: 5 mg Phenazopyridine HCl (Pyridium) 200 mg PO TIDPC [facility] Last Admin: 04/14/16 09:06 Dose: 200 mg Polyethylene Glycol (Miralax) 17 gm PO BID [facility] Last Admin: 04/02/16 19:10 Dose: Not Given Potassium Phos/Sodium Phos (Neutra-Phos) 1 pkt PO TID [facility] Last Admin: 04/14/16 11:05 Dose: Not Given Tamsulosin HCl (Flomax) 0.4 mg PO DAILY [facility] Last Admin: 04/14/16 11:06 Dose: 0.4 mg Vitamin A (Vitamin A & D Oint Ud Foilpak) 1 ea TOP Q8H [facility] Last Admin: 04/14/16 08:35 Dose: 1 ea - Labs Labs: 04/14/16 07:11 04/14/16 07:11 - Constitutional Appears: No Acute Distress - Head Exam Head Exam: NORMAL INSPECTION - Eye Exam Eye Exam: Normal appearance - ENT Exam ENT Exam: Mucous Membranes Moist - Respiratory Exam Respiratory Exam: Clear to Ausculation Bilateral - Cardiovascular Exam Cardiovascular Exam: REGULAR RHYTHM, +S1, +S2 - GI/Abdominal Exam GI & Abdominal Exam: Soft, Tenderness, Normal Bowel Sounds - Neurological Exam Neurological Exam: Alert, Awake, Oriented x3 - Psychiatric Exam Psychiatric exam: Normal Affect, Normal Mood - Skin Skin Exam: Dry, Intact, Normal Color Assessment and Plan - Assessment and Plan (Free Text) Plan: UTI Urine Culture 04/09 No growth Urine Culture 04/03 trace blood but negative for Leukocyte esterase. Urine culture 03/18 negative Urine culture 03/14 (+) E. Faecalis Gait Instability 04/14: PT --> OOB + Ambulation with staff assistance. 04/12: Per ortho: Independent to bathroom with walker. No acute fracture noted on imaging. No acute ortho intervention at this time. Pt can follow up outpatient. Patient can be toe touch weight bearing right leg at this time 04/11/2016 PT eval - DECREASED GAIT DUE TO R HIP AND B/L GROIN PAIN. TOLERATED OOB TO CH ~ 2 HRS, PATIENT ALTERNATES B/W TTWB AND NWB W/ MIN A. CLEARED FOR AMBULATING TO THE BATHROOM W/ NURSING STAFF DURING AM/PM CARE. PT recs --> Continued PT Abdominal Pain Inguinal hernia with unobstructed bowel loop involvement; Tylenol 650 mg PO Q6 PRN mild pain Oxycodone 5mg q8 prn severe pain Abdominal US: Gallstones, no cholecystitis, no hydronephrosis. trace ascites ( see full report) Abd/pelv CT ordered 03/19/16- Results - Aneursmal dilatation of ascending thoracic aorta; Currently 4.5 cm. 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 Sacral decubits Wound care following - recommending medihoney covered with bordered telfa dressing to right lower buttocks stage 2 pressure ulcer daily. Pt is OOB to chair with help from PT daily Order placed for turning patient Q2H BPH Pyridium 200 mg PO TIDPC Flomax 0.4 mg PO daily Proscar 5 mg PO daily 04/[address] Hughes: Suggest starting pyridium repeat psa in 2 to 3 weeks continue flomax. On discharge pt should be referred for urological re- evaluation/ Onychomycosis podiatry consult - Dr. Dixon Prophylactic Measure Labs Q3Days Heparin 5000 units SC Q8H A and D ointment TOP Q*H HOLD Miralax Colace 100 mg PO daily for constipation - stopped, pt having BMs. Social Work - Patient is homeless. will follow up to see which services are available <Jose Wiggins - Last Filed: 04/15/16 08:51> Objective - Vital Signs/Intake and Output Vital Signs (last 24 hours): Temp Pulse Resp BP Pulse Ox 97.9 F 69 18 124/74 96 04/15/16 08:24 04/15/16 08:24 04/15/16 08:24 04/15/16 08:24 04/15/16 08:24 Intake and Output: 04/15/16 04/15/16 06:59 18:59 Intake Total 720 Output Total 300 Balance 420 - Medications Medications: Current Medications Acetaminophen (Tylenol 325mg Tab) 650 mg PO Q6 [facility] Last Admin: 04/15/16 05:25 Dose: 650 mg Finasteride (Proscar) 5 mg PO DAILY [facility] Last Admin: 04/14/16 11:06 Dose: 5 mg Heparin Sodium (Porcine) (Heparin) 5,000 units SC Q8 [facility] Last Admin: 04/15/16 05:25 Dose: 5,000 units Oxycodone HCl (Oxycodone Immediate Release Tab) 5 mg PO Q8H PRN PRN Reason: Pain, severe (8-10) Last Admin: 04/09/16 11:18 Dose: 5 mg Phenazopyridine HCl (Pyridium) 200 mg PO TIDPC [facility] Last Admin: 04/15/16 08:04 Dose: 200 mg Polyethylene Glycol (Miralax) 17 gm PO BID [facility] Last Admin: 04/02/16 19:10 Dose: Not Given Potassium Phos/Sodium Phos (Neutra-Phos) 1 pkt PO TID [facility] Last Admin: 04/14/16 17:59 Dose: Not Given Tamsulosin HCl (Flomax) 0.4 mg PO DAILY [facility] Last Admin: 04/14/16 11:06 Dose: 0.4 mg Vitamin A (Vitamin A & D Oint Ud Foilpak) 1 ea TOP Q8H [facility] Last Admin: 04/15/16 07:03 Dose: 1 ea - Labs Labs: 04/14/16 07:11 04/14/16 07:11 Attending/Attestation - Attestation I have personally seen and examined this patient.: Yes I have fully participated in the care of the patient.: Yes I have reviewed all pertinent clinical information, including history, physical exam and plan: Yes Notes (Text): 04/15/16 08:50 Patient was seen and examined at bedside with the resident Patient appears comfortable. Continue physical therapy daily Continue pain management Discharge planning when patient is physically stronger
--- NOTE | 2016-04-15 02:00 | CP.PCM.PN ---
<Juan Pablo Ny - Last Filed: 04/15/16 02:05> Subjective - Date & Time of Evaluation Date of Evaluation: 04/15/16 Time of Evaluation: 12:15 - Subjective Subjective: PGY1 medicine note for Dr. Wiggins's service: Pt seen and examined bedside. No acute events over night as per nursing. Pt reports lower abdominal pain and multiple episodes of diarrhea the last two days. However, CP who changed his bedpan states this is untrue and he has had normal BMs. PT states his mobility is improving and he was able to ambulate in the hallway with close supervision. Pt denied chest pain, dyspnea, nausea, vomiting, or headache. Objective - Vital Signs/Intake and Output Vital Signs (last 24 hours): Temp Pulse Resp BP Pulse Ox 97.8 F 77 20 110/62 96 04/14/16 23:27 04/14/16 23:27 04/14/16 23:27 04/14/16 23:27 04/14/16 23:27 Intake and Output: 04/14/16 04/15/16 18:59 06:59 Intake Total 400 480 Balance 400 480 - Medications Medications: Current Medications Acetaminophen (Tylenol 325mg Tab) 650 mg PO Q6 [facility] Last Admin: 04/14/16 23:51 Dose: 650 mg Finasteride (Proscar) 5 mg PO DAILY [facility] Last Admin: 04/14/16 11:06 Dose: 5 mg Heparin Sodium (Porcine) (Heparin) 5,000 units SC Q8 [facility] Last Admin: 04/14/16 22:06 Dose: 5,000 units Oxycodone HCl (Oxycodone Immediate Release Tab) 5 mg PO Q8H PRN PRN Reason: Pain, severe (8-10) Last Admin: 04/09/16 11:18 Dose: 5 mg Phenazopyridine HCl (Pyridium) 200 mg PO TIDPC [facility] Last Admin: 04/14/16 17:58 Dose: 200 mg Polyethylene Glycol (Miralax) 17 gm PO BID [facility] Last Admin: 04/02/16 19:10 Dose: Not Given Potassium Phos/Sodium Phos (Neutra-Phos) 1 pkt PO TID [facility] Last Admin: 04/14/16 17:59 Dose: Not Given Tamsulosin HCl (Flomax) 0.4 mg PO DAILY [facility] Last Admin: 04/14/16 11:06 Dose: 0.4 mg Vitamin A (Vitamin A & D Oint Ud Foilpak) 1 ea TOP Q8H [facility] Last Admin: 04/14/16 23:51 Dose: 1 ea - Labs Labs: 04/14/16 07:11 04/14/16 07:11 - Constitutional Appears: No Acute Distress - Head Exam Head Exam: NORMAL INSPECTION, NORMOCEPHALIC - Eye Exam Eye Exam: EOMI, Normal appearance - ENT Exam ENT Exam: Mucous Membranes Moist Additional comments: Poor dentition, many missing teeth noted - Respiratory Exam Respiratory Exam: Clear to Ausculation Bilateral, NORMAL BREATHING PATTERN - Cardiovascular Exam Cardiovascular Exam: REGULAR RHYTHM, +S1, +S2 - GI/Abdominal Exam GI & Abdominal Exam: Soft, Tenderness (RLQ pain, 3/10), Normal Bowel Sounds - Extremities Exam Extremities Exam: Normal Inspection - Back Exam Back Exam: absent: CVA tenderness (L), CVA tenderness (R) - Neurological Exam Neurological Exam: Alert, Awake, Oriented x3 - Psychiatric Exam Psychiatric exam: Normal Affect - Skin Skin Exam: Normal Color, Warm Assessment and Plan - Assessment and Plan (Free Text) Assessment: UTI 2/4: Pt denies increased frequency, dysuria Urine Culture 04/09 No growth Urine Culture 04/03 trace blood but negative for Leukocyte esterase. Urine culture 03/18 negative Urine culture 03/14 (+) E. Faecalis Gait Instability 2/4: PT: IMPROVING MOBILITY, ABLE TO AMBULATE IN THE HALLWAY W/ CLOSE SUPERVISION. RECOMMENDING DAILY OOB. - Recommending discharge home 2/3: PT --> OOB + Ambulation with staff assistance. 04/12: Per ortho: Independent to bathroom with walker. No acute fracture noted on imaging. No acute ortho intervention at this time. Pt can follow up outpatient. Patient can be toe touch weight bearing right leg at this time 04/11/2016 PT eval - DECREASED GAIT DUE TO R HIP AND B/L GROIN PAIN. TOLERATED OOB TO CH ~ 2 HRS, PATIENT ALTERNATES B/W TTWB AND NWB W/ MIN A. CLEARED FOR AMBULATING TO THE BATHROOM W/ NURSING STAFF DURING AM/PM CARE. PT recs --> Continued PT Abdominal Pain Inguinal hernia with unobstructed bowel loop involvement; Tylenol 650 mg PO Q6 PRN mild pain Oxycodone 5mg q8 prn severe pain Abdominal US: Gallstones, no cholecystitis, no hydronephrosis. trace ascites ( see full report) Abd/pelv CT ordered 03/19/16- Results - Aneursmal dilatation of ascending thoracic aorta; Currently 4.5 cm. 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 Sacral decubits Wound care following - recommending medihoney covered with bordered telfa dressing to right lower buttocks stage 2 pressure ulcer daily. Pt is OOB to chair with help from PT daily Order placed for turning patient Q2H BPH Pyridium 200 mg PO TIDPC Flomax 0.4 mg PO daily Proscar 5 mg PO daily 04/[address] Hughes: Suggest starting pyridium repeat psa in 2 to 3 weeks continue flomax. On discharge pt should be referred for urological re- evaluation/ Onychomycosis podiatry consult - Dr. Dixon Prophylactic Measure Labs Q3Days Heparin 5000 units SC Q8H A and D ointment TOP Q*H HOLD Miralax Colace 100 mg PO daily for constipation - stopped, pt having BMs. Social Work - Patient is homeless. will follow up to see which services are available <Jose Wiggins - Last Filed: 04/16/16 08:42> Objective - Vital Signs/Intake and Output Vital Signs (last 24 hours): Temp Pulse Resp BP Pulse Ox 97.9 F 80 20 122/68 95 04/16/16 08:08 04/16/16 08:08 04/16/16 08:08 04/16/16 08:08 04/16/16 08:08 Intake and Output: 04/16/16 04/16/16 06:59 18:59 Intake Total 240 Balance 240 - Medications Medications: Current Medications Acetaminophen (Tylenol 325mg Tab) 650 mg PO Q6 [facility] Last Admin: 04/16/16 05:49 Dose: 650 mg Finasteride (Proscar) 5 mg PO DAILY [facility] Last Admin: 04/15/16 09:08 Dose: 5 mg Heparin Sodium (Porcine) (Heparin) 5,000 units SC Q8 [facility] Last Admin: 04/16/16 05:49 Dose: 5,000 units Oxycodone HCl (Oxycodone Immediate Release Tab) 5 mg PO Q8H PRN PRN Reason: Pain, severe (8-10) Last Admin: 04/09/16 11:18 Dose: 5 mg Phenazopyridine HCl (Pyridium) 200 mg PO TIDPC [facility] Last Admin: 04/15/16 18:25 Dose: 200 mg Polyethylene Glycol (Miralax) 17 gm PO BID [facility] Last Admin: 04/02/16 19:10 Dose: Not Given Potassium Phos/Sodium Phos (Neutra-Phos) 1 pkt PO TID [facility] Last Admin: 04/15/16 18:00 Dose: 1 pkt Tamsulosin HCl (Flomax) 0.4 mg PO DAILY [facility] Last Admin: 04/15/16 09:08 Dose: 0.4 mg Vitamin A (Vitamin A & D Oint Ud Foilpak) 1 ea TOP Q8H [facility] Last Admin: 04/16/16 00:13 Dose: 1 ea - Labs Labs: 04/14/16 07:11 04/14/16 07:11 Attending/Attestation - Attestation I have personally seen and examined this patient.: Yes I have fully participated in the care of the patient.: Yes I have reviewed all pertinent clinical information, including history, physical exam and plan: Yes Notes (Text): 04/16/16 08:41 Patient was seen and examined at bedside Continue physical therapy daily Pain management Discharge planning because patient is getting stronger
[2016-04-15] MEDS: Vitamins A & D Oint UD Foilpak TOP SCH ×2 (07:03→16:00)
[2016-04-15] MEDS: Potassium & Sodium Phosphate PO SCH ×4 (09:08→18:00)
[2016-04-16] MEDS: Vitamins A & D Oint UD Foilpak TOP SCH ×3 (00:13→15:32)
--- NOTE | 2016-04-16 00:13 | CP.PCM.PN ---
<DanyelltaishaJuan Pablo - Last Filed: 04/16/16 03:44> Subjective - Date & Time of Evaluation Date of Evaluation: 04/16/16 Time of Evaluation: 12:05 - Subjective Subjective: PGY1 medicine note for Dr. Wiggins's service: Pt seen and examined bedside. Nursing reports no acute events overnight. Pt reports continued right sided pain, particularly in his lower abdomen, hip, down his right leg. This has been a chronic finding since admission. He also reports no recent episodes of diarrhea. Pt denied chest pain, dyspnea, nausea, vomiting, or headache. Objective - Vital Signs/Intake and Output Vital Signs (last 24 hours): Temp Pulse Resp BP Pulse Ox 97.8 F 82 20 96/62 L 95 04/15/16 15:00 04/15/16 20:00 04/15/16 15:00 04/15/16 15:00 04/15/16 15:00 - Medications Medications: Current Medications Acetaminophen (Tylenol 325mg Tab) 650 mg PO Q6 [facility] Last Admin: 04/15/16 18:00 Dose: 650 mg Finasteride (Proscar) 5 mg PO DAILY [facility] Last Admin: 04/15/16 09:08 Dose: 5 mg Heparin Sodium (Porcine) (Heparin) 5,000 units SC Q8 [facility] Last Admin: 04/15/16 21:46 Dose: 5,000 units Oxycodone HCl (Oxycodone Immediate Release Tab) 5 mg PO Q8H PRN PRN Reason: Pain, severe (8-10) Last Admin: 04/09/16 11:18 Dose: 5 mg Phenazopyridine HCl (Pyridium) 200 mg PO TIDPC [facility] Last Admin: 04/15/16 18:25 Dose: 200 mg Polyethylene Glycol (Miralax) 17 gm PO BID [facility] Last Admin: 04/02/16 19:10 Dose: Not Given Potassium Phos/Sodium Phos (Neutra-Phos) 1 pkt PO TID [facility] Last Admin: 04/15/16 18:00 Dose: 1 pkt Tamsulosin HCl (Flomax) 0.4 mg PO DAILY [facility] Last Admin: 04/15/16 09:08 Dose: 0.4 mg Vitamin A (Vitamin A & D Oint Ud Foilpak) 1 ea TOP Q8H [facility] Last Admin: 04/15/16 16:00 Dose: 1 ea - Labs Labs: 04/14/16 07:11 04/14/16 07:11 - Constitutional Appears: No Acute Distress - Head Exam Head Exam: NORMAL INSPECTION - Eye Exam Eye Exam: EOMI, Normal appearance Pupil Exam: PERRL - ENT Exam ENT Exam: Mucous Membranes Moist Additional comments: Poor dentition - Respiratory Exam Respiratory Exam: Clear to Ausculation Bilateral, NORMAL BREATHING PATTERN - Cardiovascular Exam Cardiovascular Exam: REGULAR RHYTHM, +S1, +S2 - GI/Abdominal Exam GI & Abdominal Exam: Soft, Tenderness (RLQ 2/10), Normal Bowel Sounds - Extremities Exam Extremities Exam: Normal Inspection. absent: Pedal Edema - Back Exam Back Exam: absent: CVA tenderness (L), CVA tenderness (R) - Neurological Exam Neurological Exam: Alert, Awake, Oriented x3 - Psychiatric Exam Psychiatric exam: Normal Affect - Skin Skin Exam: Normal Color, Warm Assessment and Plan - Assessment and Plan (Free Text) Assessment: Gait Instability 04/16: PT: IMPROVING MOBILITY, ABLE TO AMBULATE IN THE HALLWAY W/ CLOSE SUPERVISION. RECOMMENDING DAILY OOB. - Recommending discharge home 23: PT --> OOB + Ambulation with staff assistance. 04/12: Per ortho: Independent to bathroom with walker. No acute fracture noted on imaging. No acute ortho intervention at this time. Pt can follow up outpatient. Patient can be toe touch weight bearing right leg at this time 04/11/2016 PT eval - DECREASED GAIT DUE TO R HIP AND B/L GROIN PAIN. TOLERATED OOB TO CH ~ 2 HRS, PATIENT ALTERNATES B/W TTWB AND NWB W/ MIN A. CLEARED FOR AMBULATING TO THE BATHROOM W/ NURSING STAFF DURING AM/PM CARE. PT recs --> Continued PT UTI 04/16: Pt denies increased frequency, dysuria Urine Culture 04/09 No growth Urine Culture 04/03 trace blood but negative for Leukocyte esterase. Urine culture 03/18 negative Urine culture 03/14 (+) E. Faecalis Abdominal Pain Inguinal hernia with unobstructed bowel loop involvement; Tylenol 650 mg PO Q6 PRN mild pain Oxycodone 5mg q8 prn severe pain Abdominal US: Gallstones, no cholecystitis, no hydronephrosis. trace ascites ( see full report) Abd/pelv CT ordered 03/19/16- Results - Aneursmal dilatation of ascending thoracic aorta; Currently 4.5 cm. 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 Sacral decubits Wound care following - recommending medihoney covered with bordered telfa dressing to right lower buttocks stage 2 pressure ulcer daily. Pt is OOB to chair with help from PT daily Order placed for turning patient Q2H BPH Pyridium 200 mg PO TIDPC Flomax 0.4 mg PO daily Proscar 5 mg PO daily 04/[address] Hughes: Suggest starting pyridium repeat psa in 2 to 3 weeks continue flomax. On discharge pt should be referred for urological re- evaluation/ Onychomycosis podiatry consult - Dr. Gillespieitis Prophylactic Measure Labs Q3Days Heparin 5000 units SC Q8H A and D ointment TOP Q*H HOLD Miralax Colace 100 mg PO daily for constipation - stopped, pt having BMs. Social Work - Patient is homeless. will follow up to see which services are available <Jose Wiggins - Last Filed: 04/16/16 15:34> Objective - Vital Signs/Intake and Output Vital Signs (last 24 hours): Temp Pulse Resp BP Pulse Ox 97.9 F 80 20 122/68 95 04/16/16 08:08 04/16/16 13:25 04/16/16 08:08 04/16/16 08:08 04/16/16 08:08 Intake and Output: 04/16/16 04/16/16 06:59 18:59 Intake Total 240 360 Output Total 300 Balance 240 60 - Medications Medications: Current Medications Acetaminophen (Tylenol 325mg Tab) 650 mg PO Q6 [facility] Last Admin: 04/16/16 11:25 Dose: 650 mg Finasteride (Proscar) 5 mg PO DAILY [facility] Last Admin: 04/16/16 09:30 Dose: 5 mg Heparin Sodium (Porcine) (Heparin) 5,000 units SC Q8 [facility] Last Admin: 04/16/16 13:50 Dose: 5,000 units Oxycodone HCl (Oxycodone Immediate Release Tab) 5 mg PO Q8H PRN PRN Reason: Pain, severe (8-10) Last Admin: 04/09/16 11:18 Dose: 5 mg Phenazopyridine HCl (Pyridium) 200 mg PO TIDPC [facility] Last Admin: 04/16/16 13:50 Dose: 200 mg Polyethylene Glycol (Miralax) 17 gm PO BID [facility] Last Admin: 04/02/16 19:10 Dose: Not Given Potassium Phos/Sodium Phos (Neutra-Phos) 1 pkt PO TID [facility] Last Admin: 04/16/16 13:49 Dose: 1 pkt Tamsulosin HCl (Flomax) 0.4 mg PO DAILY [facility] Last Admin: 04/16/16 09:31 Dose: 0.4 mg Vitamin A (Vitamin A & D Oint Ud Foilpak) 1 ea TOP Q8H [facility] Last Admin: 04/16/16 15:32 Dose: 1 ea - Labs Labs: 04/14/16 07:11 04/14/16 07:11 Attending/Attestation - Attestation I have personally seen and examined this patient.: Yes I have fully participated in the care of the patient.: Yes I have reviewed all pertinent clinical information, including history, physical exam and plan: Yes Notes (Text): 04/16/16 15:33 Patient seen and examined at bedside He continues to complain of pain in the hip Patient is ambulating as per the report of the physical therapy Discharge planning because patient is getting stronger and is able to ambulate
[2016-04-16] MEDS: Potassium & Sodium Phosphate PO SCH ×3 (09:30→18:00)
[2016-04-17] MEDS: Vitamins A & D Oint UD Foilpak TOP SCH ×3 (00:05→18:15)
[2016-04-17] MEDS: Potassium & Sodium Phosphate PO SCH ×3 (09:25→18:14)
--- NOTE | 2016-04-17 11:21 | CP.PCM.PN ---
Subjective - Date & Time of Evaluation Date of Evaluation: 04/17/16 Time of Evaluation: 11:19 - Subjective Subjective: Patient complaining of right hip pain. No new complaints, pain unchanged. Objective - Vital Signs/Intake and Output Vital Signs (last 24 hours): Temp Pulse Resp BP Pulse Ox 98.1 F 76 20 97/61 L 96 04/17/16 07:31 04/17/16 07:31 04/17/16 07:31 04/17/16 07:31 04/17/16 07:31 Intake and Output: 04/17/16 04/17/16 06:59 18:59 Intake Total 340 240 Balance 340 240 - Medications Medications: Current Medications Acetaminophen (Tylenol 325mg Tab) 650 mg PO Q6 [facility] Last Admin: 04/17/16 05:39 Dose: 650 mg Finasteride (Proscar) 5 mg PO DAILY [facility] Last Admin: 04/17/16 09:25 Dose: 5 mg Heparin Sodium (Porcine) (Heparin) 5,000 units SC Q8 [facility] Last Admin: 04/17/16 05:40 Dose: 5,000 units Oxycodone HCl (Oxycodone Immediate Release Tab) 5 mg PO Q8H PRN PRN Reason: Pain, severe (8-10) Last Admin: 04/09/16 11:18 Dose: 5 mg Phenazopyridine HCl (Pyridium) 200 mg PO TIDPC [facility] Last Admin: 04/17/16 09:24 Dose: 200 mg Polyethylene Glycol (Miralax) 17 gm PO BID [facility] Last Admin: 04/02/16 19:10 Dose: Not Given Potassium Phos/Sodium Phos (Neutra-Phos) 1 pkt PO TID [facility] Last Admin: 04/17/16 09:25 Dose: 1 pkt Tamsulosin HCl (Flomax) 0.4 mg PO DAILY [facility] Last Admin: 04/17/16 09:24 Dose: 0.4 mg Vitamin A (Vitamin A & D Oint Ud Foilpak) 1 ea TOP Q8H [facility] Last Admin: 04/17/16 09:24 Dose: Not Given - Labs Labs: 04/14/16 07:11 04/14/16 07:11 - Extremities Exam Additional comments: Pain with right hip ROM, sensation intact, toes warm, Skin intact. PT notes appreciated, progressing with ambulation. Assessment and Plan (1) Acetabular protrusion Assessment & Plan: chronic PT/OT TTWB RLE ortho stable for d/c f/u Dr. Pino as outpatient d/w Dr. Pino, agrees with above Status: Acute
[2016-04-17 11:47] LABS: BASO % 0.8 % (0.0-2.0); EOS # 0.1 K/uL (0.0-0.7); EOS % 2.1 % (0.0-4.0); HEMOGLOBIN 9.9 g/dL (12.0-18.0); LYMPH # 1.3 K/uL (1.0-4.3); LYMPH % 33.5 % (20.0-40.0); MEAN CELL VOLUME 92.2 fL (80.0-94.0); MEAN CORPUSCULAR HEMOGLOBIN 30.3 pg (27.0-31.0); MEAN CORPUSCULAR HGB CONC 32.8 g/dL (33.0-37.0); MEAN PLATELET VOLUME 7.7 fL (7.2-11.7); MONO # 0.5 K/uL (0.0-0.8); MONO % 11.4 % (0.0-10.0); NEUT # 2.1 K/uL (1.8-7.0); NEUT % 52.2 % (50.0-75.0); RBC 3.28 Mil/uL (4.40-5.90); RED CELL DISTRIBUTION WIDTH 19.6 % (11.5-14.5)
[2016-04-17 12:01] LABS: ALBUMIN 3.2 g/dL (3.5-5.0)
[2016-04-17 12:04] LABS: ALB/GLOB RATIO 0.8 (1.0-2.1); ALT/SGPT 56 U/L (21-72); AST/SGOT 43 U/L (17-59); BLOOD UREA NITROGEN 14 mg/dL (9-20); CALCIUM 8.4 mg/dl (8.6-10.4); GFR AFRICAN-AMERICAN > 60; GFR NON-AFRICAN AMERICAN > 60
[2016-04-17 12:05] LABS: MAGNESIUM 1.5 mg/dL (1.6-2.3)
--- NOTE | 2016-04-17 13:24 | CP.PCM.PN ---
<Sukhwinder Petersen - Last Filed: 04/17/16 21:28> Subjective - Date & Time of Evaluation Date of Evaluation: 04/17/16 Time of Evaluation: 07:20 - Subjective Subjective: PGY1 medicine note for Dr. Santo. Pt seen and examined bedside. No acute overnight report per nursing. Pt admits to right sided pain, at hip and right lower extremity. This has been a chronic finding since admission, due to slippage of mechanical hardware in his leg from prior procedure. He continues to report diarrhea, however not yet observed. Pt denied f/c, chest pain, SOB, n/v, constipation, or any addition acute complaints. Objective - Vital Signs/Intake and Output Vital Signs (last 24 hours): Temp Pulse Resp BP Pulse Ox 98.1 F 76 20 97/61 L 96 04/17/16 07:31 04/17/16 11:38 04/17/16 07:31 04/17/16 07:31 04/17/16 07:31 Intake and Output: 04/17/16 04/17/16 06:59 18:59 Intake Total 340 640 Balance 340 640 - Medications Medications: Current Medications Acetaminophen (Tylenol 325mg Tab) 650 mg PO Q6 [facility] Last Admin: 04/17/16 13:21 Dose: 650 mg Finasteride (Proscar) 5 mg PO DAILY [facility] Last Admin: 04/17/16 09:25 Dose: 5 mg Heparin Sodium (Porcine) (Heparin) 5,000 units SC Q8 [facility] Last Admin: 04/17/16 13:22 Dose: 5,000 units Oxycodone HCl (Oxycodone Immediate Release Tab) 5 mg PO Q8H PRN PRN Reason: Pain, severe (8-10) Last Admin: 04/09/16 11:18 Dose: 5 mg Phenazopyridine HCl (Pyridium) 200 mg PO TIDPC [facility] Last Admin: 04/17/16 13:22 Dose: 200 mg Polyethylene Glycol (Miralax) 17 gm PO BID [facility] Last Admin: 04/02/16 19:10 Dose: Not Given Potassium Phos/Sodium Phos (Neutra-Phos) 1 pkt PO TID [facility] Last Admin: 04/17/16 13:22 Dose: 1 pkt Tamsulosin HCl (Flomax) 0.4 mg PO DAILY [facility] Last Admin: 04/17/16 09:24 Dose: 0.4 mg Vitamin A (Vitamin A & D Oint Ud Foilpak) 1 ea TOP Q8H [facility] Last Admin: 04/17/16 09:24 Dose: Not Given - Labs Labs: 04/17/16 11:39 04/17/16 11:39 - Constitutional Appears: Non-toxic, No Acute Distress - Head Exam Head Exam: ATRAUMATIC, NORMAL INSPECTION - Eye Exam Eye Exam: EOMI - ENT Exam ENT Exam: Mucous Membranes Moist (poor dentition) - Respiratory Exam Respiratory Exam: Clear to Ausculation Bilateral, NORMAL BREATHING PATTERN. absent: Wheezes - Cardiovascular Exam Cardiovascular Exam: REGULAR RHYTHM, +S1, +S2 - GI/Abdominal Exam GI & Abdominal Exam: Soft, Tenderness (RLQ, mild), Normal Bowel Sounds - Extremities Exam Extremities Exam: Tenderness (Right thigh. Scar noted on right lateral thigh from prior orthopedic surgery). absent: Pedal Edema - Neurological Exam Neurological Exam: Alert, Awake, Oriented x3 - Psychiatric Exam Psychiatric exam: Normal Affect, Normal Mood - Skin Skin Exam: Dry, Intact, Normal Color, Warm Assessment and Plan - Assessment and Plan (Free Text) Plan: Gait Instability 04/17: PT: IMPROVING MOBILITY, ABLE TO AMBULATE IN THE HALLWAY W/ CLOSE SUPERVISION. RECOMMENDING DAILY OOB. Possible discharge 04/18/16 Ortho Consult, Dr. Pino, f/u recs PT/OT; TTWB RLE; ortho stable for d/c; f/u Dr. Pino as outpatient 04/14: PT --> OOB + Ambulation with staff assistance. 04/12: Per ortho: Independent to bathroom with walker. No acute fracture noted on imaging. No acute ortho intervention at this time. Pt can follow up outpatient. Patient can be toe touch weight bearing right leg at this time 04/11/2016 PT eval - DECREASED GAIT DUE TO R HIP AND B/L GROIN PAIN. TOLERATED OOB TO CH ~ 2 HRS, PATIENT ALTERNATES B/W TTWB AND NWB W/ MIN A. CLEARED FOR AMBULATING TO THE BATHROOM W/ NURSING STAFF DURING AM/PM CARE. PT recs --> Continued PT UTI Resolved Urine Culture 04/09 No growth Urine Culture 04/03 trace blood but negative for Leukocyte esterase. Urine culture 03/18 negative Urine culture 03/14 (+) E. Faecalis Abdominal Pain Inguinal hernia with unobstructed bowel loop involvement; mildy reduced 04/17 Tylenol 650 mg PO Q6 PRN mild pain Oxycodone 5mg q8 prn severe pain Abdominal US: Gallstones, no cholecystitis, no hydronephrosis. trace ascites ( see full report) Abd/pelv CT ordered 03/19/16- Results - Aneursmal dilatation of ascending thoracic aorta; Currently 4.5 cm. 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 Sacral decubits 04/17: refused exam. will re-attempt 04/18. Wound care following - recommending medihoney covered with bordered telfa dressing to right lower buttocks stage 2 pressure ulcer daily. Pt is OOB to chair with help from PT daily Order placed for turning patient Q2H Anemia Hgb 9's - low, stable BPH Pyridium 200 mg PO TIDPC Flomax 0.4 mg PO daily Proscar 5 mg PO daily 04/[address] Hughes: Suggest starting pyridium repeat psa in 2 to 3 weeks continue flomax. On discharge pt should be referred for urological re- evaluation/ Onychomycosis podiatry consult - Dr. Dixon Electrolyte Imbalance Hypomagnesemia 04/17 - Mg1.5 - 2 bags mag sulfate. Prophylactic Measure Labs Q3Days Heparin 5000 units SC Q8H A and D ointment TOP Q*H HOLD Miralax Colace 100 mg PO daily for constipation - stopped, pt having BMs. Social Work - Patient is homeless. will follow up to see which services are available <Lionel Santo - Last Filed: 06/19/16 08:18> Objective - Vital Signs/Intake and Output Vital Signs (last 24 hours): Temp Pulse Resp BP Pulse Ox 98.1 F 72 20 110/54 L 95 04/17/16 16:00 04/17/16 16:00 04/17/16 16:00 04/17/16 16:00 04/17/16 16:00 Intake and Output: 04/17/16 04/18/16 18:59 06:59 Intake Total 640 Balance 640 - Medications Medications: Current Medications Acetaminophen (Tylenol 325mg Tab) 650 mg PO Q6 [facility] Last Admin: 04/17/16 18:47 Dose: Not Given Finasteride (Proscar) 5 mg PO DAILY [facility] Last Admin: 04/17/16 09:25 Dose: 5 mg Heparin Sodium (Porcine) (Heparin) 5,000 units SC Q8 [facility] Last Admin: 04/17/16 13:22 Dose: 5,000 units Oxycodone HCl (Oxycodone Immediate Release Tab) 5 mg PO Q8H PRN PRN Reason: Pain, severe (8-10) Last Admin: 04/17/16 18:14 Dose: 5 mg Phenazopyridine HCl (Pyridium) 200 mg PO TIDPC [facility] Last Admin: 04/17/16 18:15 Dose: 200 mg Polyethylene Glycol (Miralax) 17 gm PO BID [facility] Last Admin: 04/02/16 19:10 Dose: Not Given Potassium Phos/Sodium Phos (Neutra-Phos) 1 pkt PO TID [facility] Last Admin: 04/17/16 18:14 Dose: 1 pkt Tamsulosin HCl (Flomax) 0.4 mg PO DAILY [facility] Last Admin: 04/17/16 09:24 Dose: 0.4 mg Vitamin A (Vitamin A & D Oint Ud Foilpak) 1 ea TOP Q8H [facility] Last Admin: 04/17/16 18:15 Dose: 1 ea - Labs Labs: 04/17/16 11:39 04/17/16 11:39 Attending/Attestation - Attestation I have personally seen and examined this patient.: Yes I have fully participated in the care of the patient.: Yes I have reviewed all pertinent clinical information, including history, physical exam and plan: Yes Notes (Text): Patient admitted with physical deconditioning and R hip pain in the setting of L acetabular protrusion; Patient is ambulating with walker and assistance; ortho still recommending toe touch weight bearing on affected side; per PT, patient can be discharged home ( change from previous rec of [facility]); Patient reporting pain but hasn't been asking for his prn pain meds; Continue flomax and finasteride for BPH; needs outpatient urology f/u; Dispo: Will obtain walker for patient; patient advised that he will be likely discharged this week once we see that he can ambulate without assistance (will have to go to [facility] as he is homeless; 04/17/16 21:07
[2016-04-17] MEDS: oxyCODONE 5 mg Immediate Release Tab PO PRN (18:14)
[2016-04-18] MEDS: Vitamins A & D Oint UD Foilpak TOP SCH ×3 (00:31→17:14)
[2016-04-18] MEDS: Potassium & Sodium Phosphate PO SCH ×3 (10:39→17:25)
--- NOTE | 2016-04-18 21:26 | CP.PCM.PN ---
<Sukhwinder Petersen - Last Filed: 04/18/16 21:38> Subjective - Date & Time of Evaluation Date of Evaluation: 04/18/16 Time of Evaluation: 08:15 - Subjective Subjective: PGY1 medicine note for Dr. Santo. Pt seen and examined bedside. No acute overnight report per nursing. He continues to report diarrhea, however physical therapy worked with the patient today, and he passed hard stool while straining. Additionally, PT reports the patient became very pale and light headed while straining. Will provide stool softener. PT feels patient needs more conditioning and training before he will be ambulatory without supervision. Right lower extremity pain persists. Denied f /c, chest pain, SOB, n/v, or any addition acute complaints. Objective - Vital Signs/Intake and Output Vital Signs (last 24 hours): Temp Pulse Resp BP Pulse Ox 98.3 F 75 18 97/65 L 96 04/18/16 15:00 04/18/16 15:00 04/18/16 15:00 04/18/16 15:00 04/18/16 15:00 Intake and Output: 04/18/16 04/19/16 18:59 06:59 Output Total 1000 Balance -1000 - Medications Medications: Current Medications Acetaminophen (Tylenol 325mg Tab) 650 mg PO Q6 [facility] Last Admin: 04/18/16 17:18 Dose: 650 mg Finasteride (Proscar) 5 mg PO DAILY [facility] Last Admin: 04/18/16 10:39 Dose: 5 mg Heparin Sodium (Porcine) (Heparin) 5,000 units SC Q8 [facility] Last Admin: 04/18/16 21:19 Dose: 5,000 units Oxycodone HCl (Oxycodone Immediate Release Tab) 5 mg PO Q8H PRN PRN Reason: Pain, severe (8-10) Last Admin: 04/17/16 18:14 Dose: 5 mg Phenazopyridine HCl (Pyridium) 200 mg PO TIDPC [facility] Last Admin: 04/18/16 17:13 Dose: 200 mg Polyethylene Glycol (Miralax) 17 gm PO BID [facility] Last Admin: 04/02/16 19:10 Dose: Not Given Potassium Phos/Sodium Phos (Neutra-Phos) 1 pkt PO TID [facility] Last Admin: 04/18/16 17:25 Dose: 1 pkt Tamsulosin HCl (Flomax) 0.4 mg PO DAILY [facility] Last Admin: 04/18/16 10:39 Dose: 0.4 mg Vitamin A (Vitamin A & D Oint Ud Foilpak) 1 ea TOP Q8H [facility] Last Admin: 04/18/16 17:14 Dose: 1 ea - Labs Labs: 04/17/16 11:39 04/17/16 11:39 - Constitutional Appears: Non-toxic, No Acute Distress - Head Exam Head Exam: ATRAUMATIC, NORMAL INSPECTION - Eye Exam Eye Exam: EOMI - ENT Exam ENT Exam: Mucous Membranes Moist - Respiratory Exam Respiratory Exam: Clear to Ausculation Bilateral, NORMAL BREATHING PATTERN. absent: Wheezes - Cardiovascular Exam Cardiovascular Exam: REGULAR RHYTHM, +S1, +S2 - GI/Abdominal Exam GI & Abdominal Exam: Soft, Normal Bowel Sounds. absent: Tenderness Additional comments: L inquinal hernia noted when pt bares down - Extremities Exam Extremities Exam: Tenderness (Right thigh. Scar noted on right lateral thigh from prior orthopedic surgery). absent: Pedal Edema - Neurological Exam Neurological Exam: Alert, Awake, Oriented x3 - Psychiatric Exam Psychiatric exam: Normal Affect, Normal Mood - Skin Skin Exam: Dry, Intact, Normal Color, Warm Assessment and Plan - Assessment and Plan (Free Text) Plan: Gait Instability Chronic finding of R lower extremity pain (since admission) due to slippage of mechanical hardware in his leg from prior procedure. PT Consult: 04/18 TOLERATED ACTIVITIES AND GAIT, MILD DIZZINESS AT END OF GAIT TOLERATED 80 FT X 2 SUPERVISION AND STD BY ASSIST, DEFERRED OOB POST GAIT DUE TO DIZZINESS. RN NOTIFIED OF PATIENT STATUS. IMPROVING MOBILITY, ABLE TO AMBULATE IN THE HALLWAY W/ CLOSE SUPERVISION. RECOMMENDING DAILY OOB Ortho Consult, Dr. Pino, f/u recs PT/OT; TTWB RLE; ortho stable for d/c; f/u Dr. Pino as outpatient 04/12: Per ortho: Independent to bathroom with walker. No acute fracture noted on imaging. No acute ortho intervention at this time. Pt can follow up outpatient. UTI Resolved Urine Culture 04/09 No growth Urine Culture 04/03 trace blood but negative for Leukocyte esterase. Urine culture 03/18 negative Urine culture 03/14 (+) E. Faecalis Abdominal Pain Inguinal hernia with unobstructed bowel loop involvement; protruded 04/18 due to straining on toilet. Tylenol 650 mg PO Q6 PRN mild pain Oxycodone 5mg q8 prn severe pain Abdominal US: Gallstones, no cholecystitis, no hydronephrosis. trace ascites ( see full report) Abd/pelv CT ordered 03/19/16- Results - Aneursmal dilatation of ascending thoracic aorta; Currently 4.5 cm. 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 Sacral decubits 04/18: refused exam. will re-attempt 04/19 while patient is out of bed. Wound care following - recommending medihoney covered with bordered telfa dressing to right lower buttocks stage 2 pressure ulcer daily. Pt is OOB to chair with help from PT daily Order placed for turning patient Q2H Anemia f/u 04/19 Hgb Hgb 9's - low, stable BPH Pyridium 200 mg PO TIDPC Flomax 0.4 mg PO daily Proscar 5 mg PO daily 04/[address] Hughes: Suggest starting pyridium repeat psa in 2 to 3 weeks continue flomax. On discharge pt should be referred for urological re- evaluation/ Onychomycosis podiatry consult - Dr. Dixon Electrolyte Imbalance f/u lab 04/19 Hypomagnesemia /6 - Mg1.5 - 2 bags mag sulfate. Prophylactic Measure Labs Q3Days Heparin 5000 units SC Q8H A and D ointment TOP Q*H Constipation: HOLD Miralax; Re-started Colace 100 mg PO BID Social Work - Patient is homeless. Use to stay with friend, but no longer welcome there. Goal is to walk with cane so he can go to a snf (will not qualify with a walker) <Lionel Santo - Last Filed: 06/19/16 08:28> Objective - Vital Signs/Intake and Output Vital Signs (last 24 hours): Temp Pulse Resp BP Pulse Ox 98.2 F 79 20 106/67 96 06/19/16 00:28 06/19/16 00:28 06/19/16 00:28 06/19/16 00:28 06/19/16 00:28 Intake and Output: 06/19/16 06/19/16 06:59 18:59 Intake Total 300 Balance 300 - Medications Medications: Current Medications Acetaminophen (Tylenol 325mg Tab) 650 mg PO Q6 PRN PRN Reason: Pain, Mild (1-3) Last Admin: 06/14/16 01:00 Dose: 650 mg Carbamide Peroxide (Debrox Ear Drops) 1 ml AU BID [facility] Last Admin: 06/18/16 18:25 Dose: 5 drop Clotrimazole (Lotrimin 1%) 0 gm TOP BID [facility] Last Admin: 06/18/16 18:26 Dose: 1 applic Docusate Sodium (Colace) 100 mg PO BID [facility] Last Admin: 06/18/16 18:25 Dose: 100 mg Famotidine (Pepcid) 20 mg PO BID [facility] Last Admin: 06/18/16 18:26 Dose: 20 mg Heparin Sodium (Porcine) (Heparin) 5,000 units SC Q8 [facility] Last Admin: 06/19/16 05:55 Dose: 5,000 units Magnesium Oxide (Mag-Ox) 400 mg PO BID [facility] Last Admin: 06/18/16 18:26 Dose: 400 mg Polyethylene Glycol (Miralax) 17 gm PO Q2D [facility] Last Admin: 06/18/16 14:43 Dose: Not Given Silver Sulfadiazine (Silvadene 1% 20 Gm) 0 ea TOP Q12H [facility] Last Admin: 06/19/16 04:28 Dose: 1 applic Sodium Chloride (Sodium Chloride Tab) 1 gm PO DAILY@1330 [facility] Last Admin: 06/18/16 14:40 Dose: 1 gm Tamsulosin HCl (Flomax) 0.8 mg PO DAILY [facility] Last Admin: 06/18/16 09:36 Dose: 0.8 mg Tramadol HCl (Ultram) 25 mg PO TID PRN PRN Reason: Pain, moderate (4-7) Last Admin: 06/18/16 09:35 Dose: 25 mg - Labs Labs: 06/19/16 06:49 06/19/16 06:49 Attending/Attestation - Attestation I have personally seen and examined this patient.: Yes I have fully participated in the care of the patient.: Yes I have reviewed all pertinent clinical information, including history, physical exam and plan: Yes
[2016-04-19] MEDS: Vitamins A & D Oint UD Foilpak TOP SCH ×3 (00:31→19:01)
[2016-04-19] MEDS: Potassium & Sodium Phosphate PO SCH ×3 (10:00→19:00)
--- NOTE | 2016-04-19 12:39 | CP.PCM.PN ---
<Sukhwinder Petersen - Last Filed: 04/19/16 23:12> Subjective - Date & Time of Evaluation Date of Evaluation: 04/19/16 Time of Evaluation: 07:40 - Subjective Subjective: PGY1 medicine note for Dr. Santo. Pt seen and examined bedside. No acute overnight report per nursing. PT feels patient needs more conditioning and training before he will be ambulatory without supervision. Patient appears more energetic today. Physical exam revealed previously healed decubitus ulcer of the R buttocks. Right lower extremity pain persists. Denied f/c, chest pain, SOB, n/v, or any addition acute complaints. Objective - Vital Signs/Intake and Output Vital Signs (last 24 hours): Temp Pulse Resp BP Pulse Ox 98.2 F 81 20 104/66 97 04/19/16 07:49 04/19/16 07:49 04/19/16 07:49 04/19/16 07:49 04/19/16 07:49 Intake and Output: 04/19/16 04/19/16 06:59 18:59 Intake Total 880 Output Total 1100 Balance -220 - Medications Medications: Current Medications Acetaminophen (Tylenol 325mg Tab) 650 mg PO Q6 [facility] Last Admin: 04/19/16 05:58 Dose: 650 mg Docusate Sodium (Colace) 100 mg PO BID [facility] Last Admin: 04/19/16 11:41 Dose: 100 mg Finasteride (Proscar) 5 mg PO DAILY [facility] Last Admin: 04/19/16 11:41 Dose: 5 mg Heparin Sodium (Porcine) (Heparin) 5,000 units SC Q8 [facility] Last Admin: 04/19/16 06:00 Dose: 5,000 units Oxycodone HCl (Oxycodone Immediate Release Tab) 5 mg PO Q8H PRN PRN Reason: Pain, severe (8-10) Last Admin: 04/17/16 18:14 Dose: 5 mg Phenazopyridine HCl (Pyridium) 200 mg PO TIDPC [facility] Last Admin: 04/19/16 08:40 Dose: 200 mg Polyethylene Glycol (Miralax) 17 gm PO BID [facility] Last Admin: 04/02/16 19:10 Dose: Not Given Potassium Phos/Sodium Phos (Neutra-Phos) 1 pkt PO TID [facility] Last Admin: 04/19/16 10:00 Dose: 1 pkt Tamsulosin HCl (Flomax) 0.4 mg PO DAILY [facility] Last Admin: 04/19/16 11:42 Dose: 0.4 mg Vitamin A (Vitamin A & D Oint Ud Foilpak) 1 ea TOP Q8H [facility] Last Admin: 04/19/16 08:41 Dose: 1 ea - Labs Labs: 04/17/16 11:39 04/17/16 11:39 - Constitutional Appears: Non-toxic, No Acute Distress - Head Exam Head Exam: ATRAUMATIC, NORMAL INSPECTION - Eye Exam Eye Exam: EOMI - ENT Exam ENT Exam: Mucous Membranes Moist - Respiratory Exam Respiratory Exam: Clear to Ausculation Bilateral, NORMAL BREATHING PATTERN. absent: Wheezes - Cardiovascular Exam Cardiovascular Exam: REGULAR RHYTHM, +S1, +S2 - GI/Abdominal Exam GI & Abdominal Exam: Soft. absent: Tenderness Additional comments: L inquinal hernia persists - Extremities Exam Extremities Exam: Tenderness (Right thigh. 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 He will return to store when discharged. Has had walker over 10 years. He had Hip surgery at [facility] and was given the walker upon discharge (10 yrs ago ). Patient plans to return to [place], as he has no family here. Gait Instability Chronic finding of R lower extremity pain (since admission) due to slippage of mechanical hardware in his leg from prior procedure. PT Consult: 04/18 TOLERATED ACTIVITIES AND GAIT, MILD DIZZINESS AT END OF GAIT TOLERATED 80 FT X 2 SUPERVISION AND STD BY ASSIST, DEFERRED OOB POST GAIT DUE TO DIZZINESS. RN NOTIFIED OF PATIENT STATUS. IMPROVING MOBILITY, ABLE TO AMBULATE IN THE HALLWAY W/ CLOSE SUPERVISION. RECOMMENDING DAILY OOB Ortho Consult, Dr. Pino, f/u recs PT/OT; TTWB RLE; ortho stable for d/c; f/u Dr. Pino as outpatient 04/12: Per ortho: Independent to bathroom with walker. No acute fracture noted on imaging. No acute ortho intervention at this time. Pt can follow up outpatient. UTI Resolved Urine Culture 04/09 No growth Urine Culture 04/03 trace blood but negative for Leukocyte esterase. Urine culture 03/18 negative Urine culture 03/14 (+) E. Faecalis Abdominal Pain Inguinal hernia with unobstructed bowel loop involvement; protruded 04/18 due to straining on toilet. Tylenol 650 mg PO Q6 PRN mild pain Oxycodone 5mg q8 prn severe pain Abdominal US: Gallstones, no cholecystitis, no hydronephrosis. trace ascites ( see full report) Abd/pelv CT ordered 03/19/16- Results - Aneursmal dilatation of ascending thoracic aorta; Currently 4.5 cm. 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 Sacral decubitus 04/19: exam revealed a previously healed decubitus ulcer of right buttocks. Sacral exam was clear. Wound care following - recommending medihoney covered with bordered telfa dressing to right lower buttocks stage 2 pressure ulcer daily. Pt is OOB to chair with help from PT daily Order placed for turning patient Q2H Anemia 04/19: Hgb 10's, increasing prior: Hgb 9's - low, stable BPH Pyridium 200 mg PO TIDPC Flomax 0.4 mg PO daily Proscar 5 mg PO daily 04/[address] Hughes: Suggest starting pyridium repeat psa in 2 to 3 weeks continue flomax. On discharge pt should be referred for urological re- evaluation/ Onychomycosis podiatry consult - Dr. Dixon Electrolyte Imbalance monitor and replete. Hypomagnesemia 04/17 - Mg1.5 - 2 bags mag sulfate. Prophylactic Measure Labs Q3Days Heparin 5000 units SC Q8H A and D ointment TOP Q*H Constipation: HOLD Miralax; Re-started Colace 100 mg PO BID Social Work - Patient is homeless. Use to stay with friend, but no longer welcome there. Goal is to walk with cane so he can go to a pen[facility] (will not qualify with a walker) <Lionel Santo - Last Filed: 06/20/16 08:00> Objective - Vital Signs/Intake and Output Vital Signs (last 24 hours): Temp Pulse Resp BP Pulse Ox 98 F 69 20 120/71 97 06/20/16 07:53 06/20/16 07:53 06/20/16 07:53 06/20/16 07:53 06/20/16 07:53 Intake and Output: 06/20/16 06/20/16 06:59 18:59 Intake Total 550 Output Total 900 Balance -350 - Medications Medications: Current Medications Acetaminophen (Tylenol 325mg Tab) 650 mg PO Q6 PRN PRN Reason: Pain, Mild (1-3) Last Admin: 06/19/16 21:49 Dose: 650 mg Carbamide Peroxide (Debrox Ear Drops) 1 ml AU BID [facility] Last Admin: 06/19/16 17:56 Dose: 5 drop Clotrimazole (Lotrimin 1%) 0 gm TOP BID [facility] Last Admin: 06/19/16 17:57 Dose: 1 applic Docusate Sodium (Colace) 100 mg PO BID [facility] Last Admin: 06/19/16 17:54 Dose: 100 mg Famotidine (Pepcid) 20 mg PO BID [facility] Last Admin: 06/19/16 17:54 Dose: 20 mg Heparin Sodium (Porcine) (Heparin) 5,000 units SC Q8 [facility] Last Admin: 06/20/16 06:09 Dose: 5,000 units Magnesium Oxide (Mag-Ox) 400 mg PO BID [facility] Last Admin: 06/19/16 17:54 Dose: 400 mg Polyethylene Glycol (Miralax) 17 gm PO Q2D [facility] Last Admin: 06/19/16 11:36 Dose: Not Given Silver Sulfadiazine (Silvadene 1% 20 Gm) 0 ea TOP Q12H [facility] Last Admin: 06/19/16 21:49 Dose: 1 applic Sodium Chloride (Sodium Chloride Tab) 1 gm PO DAILY@1330 [facility] Last Admin: 06/19/16 14:15 Dose: 1 gm Tamsulosin HCl (Flomax) 0.8 mg PO DAILY [facility] Last Admin: 06/19/16 11:32 Dose: 0.8 mg Tramadol HCl (Ultram) 25 mg PO TID PRN PRN Reason: Pain, moderate (4-7) Last Admin: 06/19/16 17:54 Dose: 25 mg - Labs Labs: 06/19/16 06:49 06/19/16 06:49 Attending/Attestation - Attestation I have personally seen and examined this patient.: Yes I have fully participated in the care of the patient.: Yes I have reviewed all pertinent clinical information, including history, physical exam and plan: Yes
[2016-04-19 16:09] LABS: BASO % 0.6 % (0.0-2.0); EOS # 0.1 K/uL (0.0-0.7); EOS % 2.1 % (0.0-4.0); HEMOGLOBIN 10.9 g/dL (12.0-18.0); LYMPH # 1.5 K/uL (1.0-4.3); LYMPH % 35.4 % (20.0-40.0); MEAN CELL VOLUME 92.4 fL (80.0-94.0); MEAN CORPUSCULAR HEMOGLOBIN 30.7 pg (27.0-31.0); MEAN CORPUSCULAR HGB CONC 33.2 g/dL (33.0-37.0); MEAN PLATELET VOLUME 7.5 fL (7.2-11.7); MONO # 0.4 K/uL (0.0-0.8); MONO % 9.4 % (0.0-10.0); NEUT # 2.2 K/uL (1.8-7.0); NEUT % 52.5 % (50.0-75.0); NRBC % 0.1 % (0.0-2.0); RBC 3.55 Mil/uL (4.40-5.90); RED CELL DISTRIBUTION WIDTH 19.7 % (11.5-14.5); WHITE BLOOD COUNT 4.2 K/uL (4.8-10.8)
[2016-04-19 16:23] LABS: ALBUMIN 3.9 g/dL (3.5-5.0)
[2016-04-19 16:26] LABS: ALT/SGPT 68 U/L (21-72); AST/SGOT 59 U/L (17-59); BLOOD UREA NITROGEN 18 mg/dL (9-20); GFR AFRICAN-AMERICAN > 60; GFR NON-AFRICAN AMERICAN > 60
[2016-04-19 16:27] LABS: CALCIUM 8.9 mg/dl (8.6-10.4); MAGNESIUM 1.6 mg/dL (1.6-2.3)
[2016-04-19] MEDS: oxyCODONE 5 mg Immediate Release Tab PO PRN (22:06)
[2016-04-20] MEDS: Vitamins A & D Oint UD Foilpak TOP SCH ×3 (00:33→18:00)
[2016-04-20] MEDS: Potassium & Sodium Phosphate PO SCH ×3 (10:14→17:59)
--- NOTE | 2016-04-20 10:15 | CP.PCM.PN ---
<Sukhwinder Petersen - Last Filed: 04/20/16 22:43> Subjective - Date & Time of Evaluation Date of Evaluation: 04/20/16 Time of Evaluation: 07:50 - Subjective Subjective: PGY1 medicine note for Dr. Santo. Pt seen and examined bedside. No acute overnight report per nursing. Patient is eating well, is getting OOB to chair and walking to bathroom with walker. Right lower extremity pain persists. Will speak with full time staff interpreter today to ensure plan of care is understood. Denied f/c, chest pain, SOB, n/v, or any addition acute complaints. Objective - Vital Signs/Intake and Output Vital Signs (last 24 hours): Temp Pulse Resp BP Pulse Ox 98 F 74 20 97/63 L 96 04/20/16 07:40 04/20/16 07:40 04/20/16 07:40 04/20/16 07:40 04/20/16 07:40 Intake and Output: 04/20/16 04/20/16 06:59 18:59 Intake Total 980 Output Total 1300 Balance -320 - Medications Medications: Current Medications Acetaminophen (Tylenol 325mg Tab) 650 mg PO Q6 [facility] Last Admin: 04/20/16 05:33 Dose: 650 mg Docusate Sodium (Colace) 100 mg PO BID [facility] Last Admin: 04/19/16 19:00 Dose: 100 mg Finasteride (Proscar) 5 mg PO DAILY [facility] Last Admin: 04/19/16 11:41 Dose: 5 mg Heparin Sodium (Porcine) (Heparin) 5,000 units SC Q8 [facility] Last Admin: 04/20/16 05:33 Dose: 5,000 units Oxycodone HCl (Oxycodone Immediate Release Tab) 5 mg PO Q8H PRN PRN Reason: Pain, severe (8-10) Last Admin: 04/19/16 22:06 Dose: 5 mg Phenazopyridine HCl (Pyridium) 200 mg PO TIDPC [facility] Last Admin: 04/19/16 19:00 Dose: 200 mg Polyethylene Glycol (Miralax) 17 gm PO BID [facility] Last Admin: 04/02/16 19:10 Dose: Not Given Potassium Phos/Sodium Phos (Neutra-Phos) 1 pkt PO TID [facility] Last Admin: 04/19/16 19:00 Dose: 1 pkt Tamsulosin HCl (Flomax) 0.4 mg PO DAILY [facility] Last Admin: 04/19/16 11:42 Dose: 0.4 mg Vitamin A (Vitamin A & D Oint Ud Foilpak) 1 ea TOP Q8H [facility] Last Admin: 04/20/16 00:33 Dose: 1 ea - Labs Labs: 04/19/16 16:03 04/19/16 16:03 - Constitutional Appears: Non-toxic, No Acute Distress - Head Exam Head Exam: ATRAUMATIC - Eye Exam Eye Exam: EOMI - ENT Exam ENT Exam: Mucous Membranes Moist - Respiratory Exam Respiratory Exam: Clear to Ausculation Bilateral, NORMAL BREATHING PATTERN. absent: Wheezes - Cardiovascular Exam Cardiovascular Exam: REGULAR RHYTHM, +S1, +S2 - GI/Abdominal Exam GI & Abdominal Exam: Soft, Tenderness (mild RLQ (chronic)) Additional comments: L inquinal hernia persists - Extremities Exam Extremities Exam: Tenderness (Right thigh. Scar noted on right lateral thigh from prior orthopedic surgery). 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 He will return to store when discharged (but can only stay temporarily). -Has had walker over 10 years. He had Hip surgery at [facility] 2006 and was given the walker upon discharge -Current right knee pain: R knee operation 20-30 years ago -Patient plans to return to [place], but has not spoken to his family there in over a year because he lost their contact information (he has no family in the [place]) -04/20: had extensive conversation with patient utilizing full time staff interpreter. Confirmed and updated above information. Patients main problem is his right knee, possibly exacerbated by compensated ambulation due to R hip prosthesis superior migration. Gait Instability Chronic finding of R lower extremity pain (since admission) due to slippage of mechanical hardware in his leg from prior procedure. PT Consult: 04/18 TOLERATED ACTIVITIES AND GAIT, MILD DIZZINESS AT END OF GAIT TOLERATED 80 FT X 2 SUPERVISION AND STD BY ASSIST, DEFERRED OOB POST GAIT DUE TO DIZZINESS. RN NOTIFIED OF PATIENT STATUS. IMPROVING MOBILITY, ABLE TO AMBULATE IN THE HALLWAY W/ CLOSE SUPERVISION. RECOMMENDING DAILY OOB Ortho Consult, Dr. Pino, f/u recs PT/OT; TTWB RLE; ortho stable for d/c; f/u Dr. Pino as outpatient 04/12: Per ortho: Independent to bathroom with walker. No acute fracture noted on imaging. No acute ortho intervention at this time. Pt can follow up outpatient. Xray 04/03: superior migration of prosthesis. sclerosi about right acetabulum. UTI Resolved Urine Culture 04/09 No growth Urine Culture 04/03 trace blood but negative for Leukocyte esterase. Urine culture 03/18 negative Urine culture 03/14 (+) E. Faecalis Abdominal Pain Inguinal hernia with unobstructed bowel loop involvement; protruded 04/18 due to straining on toilet. Tylenol 650 mg PO Q6 PRN mild pain Oxycodone 5mg q8 prn severe pain Abdominal US: Gallstones, no cholecystitis, no hydronephrosis. trace ascites ( see full report) Abd/pelv CT ordered 03/19/16- Results - Aneursmal dilatation of ascending thoracic aorta; Currently 4.5 cm. 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 Sacral decubitus 04/19: exam revealed a previously healed decubitus ulcer of right buttocks. Sacral exam was clear. Wound care following - recommending medihoney covered with bordered telfa dressing to right lower buttocks stage 2 pressure ulcer daily. Pt is OOB to chair with help from PT daily Order placed for turning patient Q2H Anemia f/u 04/21 labs 04/19: Hgb 10's, increasing prior: Hgb 9's - low, stable BPH Pyridium 200 mg PO TIDPC Flomax 0.4 mg PO daily Proscar 5 mg PO daily 04/[address] Hughes: Suggest starting pyridium repeat psa in 2 to 3 weeks continue flomax. On discharge pt should be referred for urological re- evaluation/ Onychomycosis podiatry consult - Dr. Dixon Electrolyte Imbalance monitor and replete. Hypomagnesemia 04/17 - Mg1.5 - 2 bags mag sulfate. Prophylactic Measure Labs Q3Days Heparin 5000 units SC Q8H A and D ointment TOP Q*H Constipation: HOLD Miralax; Re-started Colace 100 mg PO BID Social Work - Patient is homeless. Used to stay with friend, but no longer welcome there. Goal is to walk with cane so he can go to a long-term (will not qualify with a walker) <Lionel Santo - Last Filed: 06/20/16 08:06> Objective - Vital Signs/Intake and Output Vital Signs (last 24 hours): Temp Pulse Resp BP Pulse Ox 98 F 69 20 120/71 97 06/20/16 07:53 06/20/16 07:53 06/20/16 07:53 06/20/16 07:53 06/20/16 07:53 Intake and Output: 06/20/16 06/20/16 06:59 18:59 Intake Total 550 Output Total 900 Balance -350 - Medications Medications: Current Medications Acetaminophen (Tylenol 325mg Tab) 650 mg PO Q6 PRN PRN Reason: Pain, Mild (1-3) Last Admin: 06/19/16 21:49 Dose: 650 mg Carbamide Peroxide (Debrox Ear Drops) 1 ml AU BID [facility] Last Admin: 06/19/16 17:56 Dose: 5 drop Clotrimazole (Lotrimin 1%) 0 gm TOP BID [facility] Last Admin: 06/19/16 17:57 Dose: 1 applic Docusate Sodium (Colace) 100 mg PO BID [facility] Last Admin: 06/19/16 17:54 Dose: 100 mg Famotidine (Pepcid) 20 mg PO BID [facility] Last Admin: 06/19/16 17:54 Dose: 20 mg Heparin Sodium (Porcine) (Heparin) 5,000 units SC Q8 [facility] Last Admin: 06/20/16 06:09 Dose: 5,000 units Magnesium Oxide (Mag-Ox) 400 mg PO BID [facility] Last Admin: 06/19/16 17:54 Dose: 400 mg Polyethylene Glycol (Miralax) 17 gm PO Q2D [facility] Last Admin: 06/19/16 11:36 Dose: Not Given Silver Sulfadiazine (Silvadene 1% 20 Gm) 0 ea TOP Q12H [facility] Last Admin: 06/19/16 21:49 Dose: 1 applic Sodium Chloride (Sodium Chloride Tab) 1 gm PO DAILY@1330 [facility] Last Admin: 06/19/16 14:15 Dose: 1 gm Tamsulosin HCl (Flomax) 0.8 mg PO DAILY [facility] Last Admin: 06/19/16 11:32 Dose: 0.8 mg Tramadol HCl (Ultram) 25 mg PO TID PRN PRN Reason: Pain, moderate (4-7) Last Admin: 06/19/16 17:54 Dose: 25 mg - Labs Labs: 06/19/16 06:49 06/19/16 06:49 Attending/Attestation - Attestation I have personally seen and examined this patient.: Yes I have fully participated in the care of the patient.: Yes I have reviewed all pertinent clinical information, including history, physical exam and plan: Yes
[2016-04-20] MEDS: oxyCODONE 5 mg Immediate Release Tab PO PRN (21:43)
[2016-04-21] MEDS: Vitamins A & D Oint UD Foilpak TOP SCH ×4 (00:09→18:21)
[2016-04-21] MEDS ORDERED: oxyCODONE 5 mg Immediate Release Tab PO PRN (09:33)
[2016-04-21] MEDS: POLYETHYLENE GLYCOL 3350 17 GM/Dose PACKET PO SCH ×2 (09:58→18:27)
[2016-04-21] MEDS: Potassium & Sodium Phosphate PO SCH ×3 (09:59→18:20)
[2016-04-21] MEDS ORDERED: MethylPREDNISolone Depo 40 mg/ml Inj IAA ONE (10:46)
[2016-04-21] MEDS ORDERED: Bupivacaine HCl 0.5% PF (10 ml) Inj IJ ONE (10:47)
--- NOTE | 2016-04-21 11:20 | CP.PCM.PN ---
Subjective - Date & Time of Evaluation Date of Evaluation: 04/21/16 Time of Evaluation: 11:13 - Subjective Subjective: Patient complaining of continued right hip pain, but now also new complaint ofr ight knee pain. He says he had surgery on that knee many many years ago, he can not remember how many, about 20-25 years. He says the knee pain is worse because he is walking more. He denies pain on left side, or any other new complaints. denies numbness/tingling. Translation device used. Patient denies any recent falls. He denies any falls preceding multiple ER visits to [facility] in February preceding admission. He says the pain in his knee is getting worse. Objective - Vital Signs/Intake and Output Vital Signs (last 24 hours): Temp Pulse Resp BP Pulse Ox 97.3 F L 70 20 98/68 L 97 04/21/16 08:35 04/21/16 08:35 04/21/16 08:35 04/21/16 08:35 04/21/16 08:35 Intake and Output: 04/21/16 04/21/16 06:59 18:59 Intake Total 810 Output Total 1500 Balance -690 - Medications Medications: Current Medications Acetaminophen (Tylenol 325mg Tab) 650 mg PO Q6 COUNTS [facility]CLUDE 234 BEDS AT THE [facility] Bupivacaine HCl (Marcaine 0.5% Pf (10 Ml)) 10 ml IJ ONCE ONE Stop: 04/21/16 10:48 Docusate Sodium (Colace) 100 mg PO BID COUNTS INCLUDE 234 BEDS AT THE [facility] Last Admin: 04/21/16 09:57 Dose: 100 mg Finasteride (Proscar) 5 mg PO DAILY COUNTS INCLUDE 234 BEDS AT THE [facility] Last Admin: 04/21/16 09:58 Dose: 5 mg Heparin Sodium (Porcine) (Heparin) 5,000 units SC Q8 COUNTS INCLUDE 234 BEDS AT THE [facility] Methylprednisolone Acetate (Depo-Medrol) 40 mg IAA ONCE ONE Stop: 04/21/16 10:47 Oxycodone HCl (Oxycodone Immediate Release Tab) 5 mg PO Q8H PRN PRN Reason: Pain, severe (8-10) Phenazopyridine HCl (Pyridium) 200 mg PO TIDPC COUNTS INCLUDE 234 BEDS AT THE [facility] Polyethylene Glycol (Miralax) 17 gm PO BID COUNTS INCLUDE 234 BEDS AT THE [facility] Last Admin: 04/21/16 09:58 Dose: 17 gm Potassium Phos/Sodium Phos (Neutra-Phos) 1 pkt PO TID COUNTS INCLUDE 234 BEDS AT THE [facility] Last Admin: 04/21/16 09:59 Dose: 1 pkt Tamsulosin HCl (Flomax) 0.4 mg PO DAILY COUNTS INCLUDE 234 BEDS AT THE [facility] Last Admin: 04/21/16 09:57 Dose: 0.4 mg Vitamin A (Vitamin A & D Oint Ud Foilpak) 1 ea TOP Q8H COUNTS INCLUDE 234 BEDS AT THE [facility] Last Admin: 04/21/16 09:56 Dose: Not Given - Labs Labs: 04/19/16 16:03 04/19/16 16:03 - Extremities Exam Additional comments: Right knee: well healed midline incision. No erythema. No joint effusion, ROM limited, but also due to right hip motion and pain. Generalized tenderness to knee, medial and lateral joint lines. No patellar tenderness. +ROM ankle/toes, sensation intact, +DP pulse. Xrays right knee AP/lateral/notch reviewed by myself. Noted metallic tension band wiring of patella from old patellar ORIF, appears well aligned and well healed. Generalized osteopenia. Joint space narrowing lateral > medial compartment. Area of sclerosis proximal tibia lateral side noted on AP and lateral. Xrays compared to right knee plain films from 03/07/2016 at [facility] ER. Noted is a corresponding line on the lateral xray with minimal sclerosis at that time. Xrays reviewed with Dr. Little, radiologist. He agrees with above, that there is a proximal lateral tibial impacted stress fracture, that was likely present as noted on 02/26/2016 With patient denying any history of falls, it is difficult to ascertain exactly when the injury occurred, or if it is just result of insufficiency due to limited WB and osteopenia. Assessment and Plan (1) Acetabular protrusion Assessment & Plan: PT/OT WB changed to NWB orthopedically stable for d/c, no intervention planned at this time Status: Acute (2) Fracture of tibia, proximal, right, closed Assessment & Plan: Impaction/insufficiency fracture, lateral aspect proximal tibia, non operative, treated with NWB and immobilization At least 6 weeks old by imaging likely now symptomatic due to increase to TTWB knee immobilizer applied, patient WB status changed to strict NWB at this time above d/w Dr. Pino, agrees with above Status: Chronic Radiology Interpretation - Radiology Interpretation #2 Interpretation: .atient Name / ID : ESME QUESADA / [id number] Exam Date : 03/07/2016 17:12:22 ( Approved ) Study Comment : Sex / Age : M / [id number] Creator : Chong Jalloh MD Dictator : Chong Jalloh MD Tribal Judge : Publishing Agent : Chong Jalloh MD Approver2 : Report Date : 03/08/2016 12:36:14 My Comment : HISTORY: pain COMPARISON: No prior FINDINGS: BONES: Severe osteopenia. Status post fixation of a patellar fracture. No acute fracture. JOINTS: Normal. No osteoarthritis. SOFT TISSUE: Normal. OTHER FINDINGS: None . IMPRESSION: Severe osteopenia. No acute fracture.
[2016-04-21 12:02] LABS: BASO % 0.6 % (0.0-2.0); EOS # 0.1 K/uL (0.0-0.7); EOS % 2.3 % (0.0-4.0); HEMOGLOBIN 9.8 g/dL (12.0-18.0); LYMPH # 1.3 K/uL (1.0-4.3); LYMPH % 34.3 % (20.0-40.0); MEAN CELL VOLUME 93.2 fL (80.0-94.0); MEAN CORPUSCULAR HGB CONC 33.3 g/dL (33.0-37.0); MEAN PLATELET VOLUME 7.3 fL (7.2-11.7); MONO # 0.4 K/uL (0.0-0.8); MONO % 11.4 % (0.0-10.0); NEUT % 51.4 % (50.0-75.0); RBC 3.16 Mil/uL (4.40-5.90); RED CELL DISTRIBUTION WIDTH 19.6 % (11.5-14.5); WHITE BLOOD COUNT 3.9 K/uL (4.8-10.8)
[2016-04-21 12:23] LABS: ALBUMIN 3.4 g/dL (3.5-5.0)
[2016-04-21 12:26] LABS: ALB/GLOB RATIO 1.1 (1.0-2.1); AST/SGOT 35 U/L (17-59); BLOOD UREA NITROGEN 18 mg/dL (9-20); GFR AFRICAN-AMERICAN > 60; GFR NON-AFRICAN AMERICAN > 60
[2016-04-21 12:27] LABS: ALT/SGPT 49 U/L (21-72); CALCIUM 8.8 mg/dl (8.6-10.4); MAGNESIUM 1.5 mg/dL (1.6-2.3)
--- NOTE | 2016-04-21 13:12 | RAD ---
PROCEDURE: Right Knee Radiographs. HISTORY: Knee pain, prior surgery 20yrs ago COMPARISON: None. FINDINGS: BONES: No acute fracture. Status post ORIF old patellar fracture. JOINTS: Tricompartmental osteoarthritis. JOINT EFFUSION: None. OTHER FINDINGS: None. IMPRESSION: Tricompartmental osteoarthritis.
--- NOTE | 2016-04-21 13:13 | CP.PCM.PN ---
<Sukhwinder Petersen - Last Filed: 04/21/16 23:47> Subjective - Date & Time of Evaluation Date of Evaluation: 04/21/16 Time of Evaluation: 07:55 - Subjective Subjective: PGY1 medicine note for Dr. Santo. Pt seen and examined bedside. No acute overnight report per nursing. Patient is eating well, is getting OOB to chair and walking to bathroom with walker. Right lower extremity pain persists. Imaging examined by orthopedic group and recent stress fracture discovered. Patient denies recent falls or trauma to that area. Denies f/c, chest pain, SOB, n/v, or any addition acute complaints. Objective - Vital Signs/Intake and Output Vital Signs (last 24 hours): Temp Pulse Resp BP Pulse Ox 97.3 F L 70 20 98/68 L 97 04/21/16 08:35 04/21/16 08:35 04/21/16 08:35 04/21/16 08:35 04/21/16 08:35 Intake and Output: 04/21/16 04/21/16 06:59 18:59 Intake Total 810 Output Total 1500 Balance -690 - Medications Medications: Current Medications Acetaminophen (Tylenol 325mg Tab) 650 mg PO Q6 [facility] Last Admin: 04/21/16 12:56 Dose: 650 mg Docusate Sodium (Colace) 100 mg PO BID [facility] Last Admin: 04/21/16 09:57 Dose: 100 mg Finasteride (Proscar) 5 mg PO DAILY [facility] Last Admin: 04/21/16 09:58 Dose: 5 mg Heparin Sodium (Porcine) (Heparin) 5,000 units SC Q8 [facility] Oxycodone HCl (Oxycodone Immediate Release Tab) 5 mg PO Q8H PRN PRN Reason: Pain, severe (8-10) Phenazopyridine HCl (Pyridium) 200 mg PO TIDPC [facility] Polyethylene Glycol (Miralax) 17 gm PO BID [facility] Last Admin: 04/21/16 09:58 Dose: 17 gm Potassium Phos/Sodium Phos (Neutra-Phos) 1 pkt PO TID [facility] Last Admin: 04/21/16 09:59 Dose: 1 pkt Tamsulosin HCl (Flomax) 0.4 mg PO DAILY [facility] Last Admin: 04/21/16 09:57 Dose: 0.4 mg Vitamin A (Vitamin A & D Oint Ud Foilpak) 1 ea TOP Q8H [facility] Last Admin: 04/21/16 09:56 Dose: Not Given - Labs Labs: 04/21/16 11:52 04/21/16 11:52 - Constitutional Appears: Non-toxic, No Acute Distress - Head Exam Head Exam: ATRAUMATIC - Eye Exam Eye Exam: EOMI - ENT Exam ENT Exam: Mucous Membranes Moist Additional comments: poor dentition - Neck Exam Neck Exam: Full ROM - Respiratory Exam Respiratory Exam: Clear to Ausculation Bilateral, NORMAL BREATHING PATTERN. absent: Wheezes - Cardiovascular Exam Cardiovascular Exam: REGULAR RHYTHM, +S1, +S2 - GI/Abdominal Exam GI & Abdominal Exam: Soft, Tenderness (diffuse, minimal), Normal Bowel Sounds - Extremities Exam Extremities Exam: Normal Inspection, Tenderness (at right knee, right hip, scar noted on right lateral thigh from prior orthopedic surgery). 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 He will return to store when discharged (but can only stay temporarily). -Has had walker over 10 years. He had Hip surgery at [facility] 2006 and was given the walker upon discharge -Current right knee pain: R knee operation 20-30 years ago -Patient plans to return to [place], but has not spoken to his family there in over a year because he lost their contact information (he has no family in the [facility]) -04/20: had extensive conversation with patient utilizing towboat pilot. Confirmed and updated above information. Patients main problem is his right knee, possibly exacerbated by compensated ambulation due to R hip prosthesis superior migration. Fracture of tibia, proximal, right, closed Patient seen and examined by Orthopedic group, Dr Pino and COREY Raines. -Impaction/insufficiency fracture, lateral aspect proximal tibia, non operative , treated with NWB and immobilization -At least 6 weeks old by imaging, likely now symptomatic due to increase to TTWB 04/21: Per Ortho: knee immobilizer applied, patient WB status changed to strict NWB at this time Gait Instability Chronic finding of R lower extremity pain (since admission) due to slippage of mechanical hardware in his leg from prior procedure. 04/21: Per Ortho: knee immobilizer applied, patient WB status changed to strict NWB at this time 04/20: PT Consult - PATIENT STABLE W/ USE OF SW UNSAFE FOR USE OF CANE, UNABLE TO USE CRUTCHES DUE TO R SH PROBLEM. Ortho Consult, Dr. Pino, f/u recs PT/OT; TTWB RLE; ortho stable for d/c; f/u Dr. Pino as outpatient 04/12: Per ortho: Independent to bathroom with walker. No acute fracture noted on imaging. No acute ortho intervention at this time. Pt can follow up outpatient. Xray 04/03: superior migration of prosthesis. sclerosi about right acetabulum. Anemia 04/21: Hgb low, stable 04/19: Hgb 10's, increasing prior: Hgb 9's - low, stable Abdominal Pain Inguinal hernia with unobstructed bowel loop involvement; protruded 04/18 due to straining on toilet. Tylenol 650 mg PO Q6 PRN mild pain Oxycodone 5mg q8 prn severe pain Abdominal US: Gallstones, no cholecystitis, no hydronephrosis. trace ascites ( see full report) Abd/pelv CT ordered 03/19/16- Results - Aneursmal dilatation of ascending thoracic aorta; Currently 4.5 cm. 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 BPH Pyridium 200 mg PO TIDPC Flomax 0.4 mg PO daily Proscar 5 mg PO daily 04/[address] Hughes: Suggest starting pyridium repeat psa in 2 to 3 weeks continue flomax. On discharge pt should be referred for urological re- evaluation/ Onychomycosis podiatry consult - Dr. Dixon Sacral decubitus Resolved 04/19: exam revealed a previously healed decubitus ulcer of right buttocks. Sacral exam was clear. Wound care following - recommending medihoney covered with bordered telfa dressing to right lower buttocks stage 2 pressure ulcer daily. Pt is OOB to chair with help from PT daily Order placed for turning patient Q2H UTI Resolved Urine Culture 04/09 No growth Urine Culture 04/03 trace blood but negative for Leukocyte esterase. Urine culture 03/18 negative Urine culture 1/3 (+) E. Faecalis Electrolyte Imbalance Hypomagnesemia - monitor and replete Prophylactic Measure Labs Q3Days Heparin 5000 units SC Q8H A and D ointment TOP Q*H Constipation: HOLD Miralax; Re-started Colace 100 mg PO BID Social Work - Patient is homeless. Used to stay with friend, but no longer welcome there. Goal is to walk with cane so he can go to a pen[facility] (will not qualify with a walker) <Lionel Santo - Last Filed: 04/22/16 08:59> Objective - Vital Signs/Intake and Output Vital Signs (last 24 hours): Temp Pulse Resp BP Pulse Ox 97.2 F L 79 20 109/65 97 04/22/16 07:00 04/22/16 07:00 04/22/16 07:00 04/22/16 07:00 04/22/16 07:00 Intake and Output: 04/22/16 04/22/16 06:59 18:59 Intake Total 930 Output Total 1000 Balance -70 - Medications Medications: Current Medications Acetaminophen (Tylenol 325mg Tab) 650 mg PO Q6 [facility] Last Admin: 04/22/16 06:01 Dose: 650 mg Docusate Sodium (Colace) 100 mg PO BID [facility] Last Admin: 04/21/16 18:20 Dose: 100 mg Finasteride (Proscar) 5 mg PO DAILY [facility] Last Admin: 04/21/16 09:58 Dose: 5 mg Heparin Sodium (Porcine) (Heparin) 5,000 units SC Q8 [facility] Last Admin: 04/22/16 06:01 Dose: 5,000 units Magnesium Sulfate/Dextrose (Magnesium Sulfate 1 Gm/100 Ml D5w) 100 mls @ 200 mls/hr IVPB Q30M [facility] Stop: 04/22/16 08:59 Last Admin: 04/22/16 08:47 Dose: 200 mls/hr Oxycodone HCl (Oxycodone Immediate Release Tab) 5 mg PO Q8H PRN PRN Reason: Pain, severe (8-10) Phenazopyridine HCl (Pyridium) 200 mg PO TIDPC [facility] Last Admin: 04/21/16 18:21 Dose: 200 mg Polyethylene Glycol (Miralax) 17 gm PO BID [facility] Last Admin: 04/21/16 18:27 Dose: 17 gm Potassium Phos/Sodium Phos (Neutra-Phos) 1 pkt PO TID [facility] Last Admin: 04/21/16 18:20 Dose: 1 pkt Tamsulosin HCl (Flomax) 0.4 mg PO DAILY [facility] Last Admin: 04/21/16 09:57 Dose: 0.4 mg Vitamin A (Vitamin A & D Oint Ud Foilpak) 1 ea TOP Q8H [facility] Last Admin: 04/22/16 03:06 Dose: 1 ea - Labs Labs: 04/21/16 11:52 04/21/16 11:52 Attending/Attestation - Attestation I have personally seen and examined this patient.: Yes I have fully participated in the care of the patient.: Yes I have reviewed all pertinent clinical information, including history, physical exam and plan: Yes Notes (Text): Patient admitted with physical deconditioning, R hip pain, found to have acetabular protrusion of hip prosthesis; R knee xray done today due to patient's complain of pain; reading mention old patellar fracture ORIF and osteoarthritis; reviewed by orthopedic service and felt to have proximal tibial fracture that is at least 6 weeks old; no surgical intervention felt needed but patient now back to complete non-weight bearing on R side (was previously advanced to toe-touch weight bearing for acetabular protrusion); knee immobilizer placed; On standing dose tylenol, oxycodone prn for pain; Constipation with difficulty BM yesterday, on miralax, continue; BPH on flomax and finasteride, continue; Dispo: Patient is homeless but can go back to living with a friend; however, he needs regular PT to allow him to heal and doesn't have insurance for LAXMI; no anticipation of discharge in the near future.
[2016-04-22] MEDS: Vitamins A & D Oint UD Foilpak TOP SCH ×3 (03:06→17:35)
--- NOTE | 2016-04-22 03:29 | CP.PCM.PN ---
<GomezMarvel - Last Filed: 04/22/16 06:18> Subjective - Date & Time of Evaluation Date of Evaluation: 04/22/16 Time of Evaluation: 00:30 - Subjective Subjective: Pt seen and examined bedside. No acute overnight report per nursing. Patient is eating well and under strict non weight bearing activity. Right lower extremity pain persists. Patient denies recent falls or trauma to that area. Pt. complains of headache, chills, abdominal pain. Denies fevers, chest pain, SOB, n /v/d. Objective - Vital Signs/Intake and Output Vital Signs (last 24 hours): Temp Pulse Resp BP Pulse Ox 98 F 88 20 100/65 95 04/22/16 01:02 04/22/16 01:02 04/22/16 01:02 04/22/16 01:02 04/22/16 01:02 Intake and Output: 04/21/16 04/22/16 18:59 06:59 Intake Total 500 450 Output Total 400 Balance 500 50 - Medications Medications: Current Medications Acetaminophen (Tylenol 325mg Tab) 650 mg PO Q6 [facility] Last Admin: 04/21/16 23:47 Dose: 650 mg Docusate Sodium (Colace) 100 mg PO BID [facility] Last Admin: 04/21/16 18:20 Dose: 100 mg Finasteride (Proscar) 5 mg PO DAILY [facility] Last Admin: 04/21/16 09:58 Dose: 5 mg Heparin Sodium (Porcine) (Heparin) 5,000 units SC Q8 [facility] Last Admin: 04/21/16 21:30 Dose: 5,000 units Magnesium Sulfate/Dextrose (Magnesium Sulfate 1 Gm/100 Ml D5w) 100 mls @ 200 mls/hr IVPB Q30M [facility] Stop: 04/22/16 08:59 Oxycodone HCl (Oxycodone Immediate Release Tab) 5 mg PO Q8H PRN PRN Reason: Pain, severe (8-10) Phenazopyridine HCl (Pyridium) 200 mg PO TIDPC [facility] Last Admin: 04/21/16 18:21 Dose: 200 mg Polyethylene Glycol (Miralax) 17 gm PO BID [facility] Last Admin: 04/21/16 18:27 Dose: 17 gm Potassium Phos/Sodium Phos (Neutra-Phos) 1 pkt PO TID [facility] Last Admin: 04/21/16 18:20 Dose: 1 pkt Tamsulosin HCl (Flomax) 0.4 mg PO DAILY [facility] Last Admin: 04/21/16 09:57 Dose: 0.4 mg Vitamin A (Vitamin A & D Oint Ud Foilpak) 1 ea TOP Q8H [facility] Last Admin: 04/22/16 03:06 Dose: 1 ea - Labs Labs: 04/21/16 11:52 04/21/16 11:52 - Constitutional Appears: Non-toxic - Head Exam Head Exam: ATRAUMATIC, NORMOCEPHALIC - Eye Exam Eye Exam: EOMI - ENT Exam ENT Exam: Mucous Membranes Moist - Respiratory Exam Respiratory Exam: Clear to Ausculation Bilateral, NORMAL BREATHING PATTERN. 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 He will return to store when discharged (but can only stay temporarily). -Has had walker over 10 years. He had Hip surgery at [facility] 2006 and was given the walker upon discharge -Current right knee pain: R knee operation 20-30 years ago -Patient plans to return to [place], but has not spoken to his family there in over a year because he lost their contact information (he has no family in the [facility]) -04/20: had extensive conversation with patient utilizing snailer. Confirmed and updated above information. Patients main problem is his right knee, possibly exacerbated by compensated ambulation due to R hip prosthesis superior migration. Fracture of tibia, proximal, right, closed Patient seen and examined by Orthopedic group, Dr Pino and COREY Raines. -Impaction/insufficiency fracture, lateral aspect proximal tibia, non operative , treated with NWB and immobilization -At least 6 weeks old by imaging, likely now symptomatic due to increase to TTWB 04/21: Per Ortho: knee immobilizer applied, patient WB status changed to strict NWB at this time Gait Instability Chronic finding of R lower extremity pain (since admission) due to slippage of mechanical hardware in his leg from prior procedure. 04/21: Per Ortho: knee immobilizer applied, patient WB status changed to strict NWB at this time 04/20: PT Consult - PATIENT STABLE W/ USE OF SW UNSAFE FOR USE OF CANE, UNABLE TO USE CRUTCHES DUE TO R SH PROBLEM. Ortho Consult, Dr. Pino, f/u recs PT/OT; TTWB RLE; ortho stable for d/c; f/u Dr. Pino as outpatient 04/12: Per ortho: Independent to bathroom with walker. No acute fracture noted on imaging. No acute ortho intervention at this time. Pt can follow up outpatient. Xray 04/03: superior migration of prosthesis. sclerosi about right acetabulum. Anemia 04/21: Hgb low, stable 04/19: Hgb 10's, increasing prior: Hgb 9's - low, stable Abdominal Pain Inguinal hernia with unobstructed bowel loop involvement; protruded 04/18 due to straining on toilet. Tylenol 650 mg PO Q6 PRN mild pain Oxycodone 5mg q8 prn severe pain Abdominal US: Gallstones, no cholecystitis, no hydronephrosis. trace ascites ( see full report) Abd/pelv CT ordered 03/19/16- Results - Aneursmal dilatation of ascending thoracic aorta; Currently 4.5 cm. 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 BPH Pyridium 200 mg PO TIDPC Flomax 0.4 mg PO daily Proscar 5 mg PO daily 04/[address] Hughes: Suggest starting pyridium repeat psa in 2 to 3 weeks continue flomax. On discharge pt should be referred for urological re- evaluation/ Onychomycosis podiatry consult - Dr. Dixon Sacral decubitus Resolved 04/19: exam revealed a previously healed decubitus ulcer of right buttocks. Sacral exam was clear. Wound care following - recommending medihoney covered with bordered telfa dressing to right lower buttocks stage 2 pressure ulcer daily. Pt is OOB to chair with help from PT daily Order placed for turning patient Q2H UTI Resolved Urine Culture 04/09 No growth Urine Culture 04/03 trace blood but negative for Leukocyte esterase. Urine culture 03/18 negative Urine culture 03/14 (+) E. Faecalis Electrolyte Imbalance Hypomagnesemia - monitor and replete Prophylactic Measure Labs Q3Days Heparin 5000 units SC Q8H A and D ointment TOP Q*H Constipation: HOLD Miralax; Re-started Colace 100 mg PO BID Social Work - Patient is homeless. Used to stay with friend, but no longer welcome there. Goal is to walk with cane so he can go to a senior living (will not qualify with a walker) <Lionel Santo - Last Filed: 06/20/16 08:11> Objective - Vital Signs/Intake and Output Vital Signs (last 24 hours): Temp Pulse Resp BP Pulse Ox 98 F 69 20 120/71 97 06/20/16 07:53 06/20/16 07:53 06/20/16 07:53 06/20/16 07:53 06/20/16 07:53 Intake and Output: 06/20/16 06/20/16 06:59 18:59 Intake Total 550 Output Total 900 Balance -350 - Medications Medications: Current Medications Acetaminophen (Tylenol 325mg Tab) 650 mg PO Q6 PRN PRN Reason: Pain, Mild (1-3) Last Admin: 06/19/16 21:49 Dose: 650 mg Carbamide Peroxide (Debrox Ear Drops) 1 ml AU BID [facility] Last Admin: 06/19/16 17:56 Dose: 5 drop Clotrimazole (Lotrimin 1%) 0 gm TOP BID [facility] Last Admin: 06/19/16 17:57 Dose: 1 applic Docusate Sodium (Colace) 100 mg PO BID [facility] Last Admin: 06/19/16 17:54 Dose: 100 mg Famotidine (Pepcid) 20 mg PO BID [facility] Last Admin: 06/19/16 17:54 Dose: 20 mg Heparin Sodium (Porcine) (Heparin) 5,000 units SC Q8 [facility] Last Admin: 06/20/16 06:09 Dose: 5,000 units Magnesium Oxide (Mag-Ox) 400 mg PO BID [facility] Last Admin: 06/19/16 17:54 Dose: 400 mg Polyethylene Glycol (Miralax) 17 gm PO Q2D [facility] Last Admin: 06/19/16 11:36 Dose: Not Given Silver Sulfadiazine (Silvadene 1% 20 Gm) 0 ea TOP Q12H [facility] Last Admin: 06/19/16 21:49 Dose: 1 applic Sodium Chloride (Sodium Chloride Tab) 1 gm PO DAILY@1330 [facility] Last Admin: 06/19/16 14:15 Dose: 1 gm Tamsulosin HCl (Flomax) 0.8 mg PO DAILY [facility] Last Admin: 06/19/16 11:32 Dose: 0.8 mg Tramadol HCl (Ultram) 25 mg PO TID PRN PRN Reason: Pain, moderate (4-7) Last Admin: 06/19/16 17:54 Dose: 25 mg - Labs Labs: 06/19/16 06:49 06/19/16 06:49 Attending/Attestation - Attestation I have personally seen and examined this patient.: Yes I have fully participated in the care of the patient.: Yes I have reviewed all pertinent clinical information, including history, physical exam and plan: Yes
[2016-04-22] MEDS: Potassium & Sodium Phosphate PO SCH (10:00)
[2016-04-22] MEDS: POLYETHYLENE GLYCOL 3350 17 GM/Dose PACKET PO SCH ×2 (11:47→17:35)
[2016-04-23] MEDS: Vitamins A & D Oint UD Foilpak TOP SCH ×3 (01:49→18:21)
[2016-04-23] MEDS: POLYETHYLENE GLYCOL 3350 17 GM/Dose PACKET PO SCH ×2 (10:18→18:22)
--- NOTE | 2016-04-23 11:03 | CP.PCM.PN ---
Subjective - Date & Time of Evaluation Date of Evaluation: 04/23/16 Time of Evaluation: 11:00 - Subjective Subjective: S- p[t with discomfort R knee/ r HIP STABLE AND RELATIVELY ASYMPTOMATIC Objective - Vital Signs/Intake and Output Vital Signs (last 24 hours): Temp Pulse Resp BP Pulse Ox 98 F 70 20 98/65 L 96 04/23/16 08:00 04/23/16 08:00 04/23/16 08:00 04/23/16 08:00 04/23/16 08:00 Intake and Output: 04/23/16 04/23/16 06:59 18:59 Intake Total 720 Output Total 700 Balance 20 - Medications Medications: Current Medications Acetaminophen (Tylenol 325mg Tab) 650 mg PO Q6 [facility] Last Admin: 04/23/16 05:38 Dose: 650 mg Docusate Sodium (Colace) 100 mg PO BID [facility] Last Admin: 04/23/16 10:17 Dose: 100 mg Finasteride (Proscar) 5 mg PO DAILY [facility] Last Admin: 04/23/16 10:19 Dose: 5 mg Heparin Sodium (Porcine) (Heparin) 5,000 units SC Q8 [facility] Last Admin: 04/23/16 05:37 Dose: 5,000 units Oxycodone HCl (Oxycodone Immediate Release Tab) 5 mg PO Q8H PRN PRN Reason: Pain, severe (8-10) Phenazopyridine HCl (Pyridium) 200 mg PO TIDPC [facility] Last Admin: 04/23/16 10:19 Dose: 200 mg Polyethylene Glycol (Miralax) 17 gm PO BID [facility] Last Admin: 04/23/16 10:18 Dose: 17 gm Tamsulosin HCl (Flomax) 0.8 mg PO DAILY [facility] Last Admin: 04/23/16 10:18 Dose: 0.8 mg Vitamin A (Vitamin A & D Oint Ud Foilpak) 1 ea TOP Q8H [facility] Last Admin: 04/23/16 10:20 Dose: 1 ea - Labs Labs: 04/21/16 11:52 04/21/16 11:52 - Additional Findings Additional findings: oBJECTIVE EXAM SYSTEMIC- ESSENTISALLY WNL mUSCULOSKELTAL STANCE/GAIT- DEFERRED Rom R hip relatively painless when distracted pt still with tenderness R knee Assessment and Plan - Assessment and Plan (Free Text) Assessment: A- s/p Protrusio acetabuli ( acetabular fx) - stable o n physical exam and sequential Xray R knee with evince of nondispo;laced stress/microfracture P- restricted weight bearing orthopedically stable
--- NOTE | 2016-04-23 13:41 | CP.PCM.PN ---
Subjective - Date & Time of Evaluation Date of Evaluation: 04/23/16 Time of Evaluation: 10:00 - Subjective Subjective: PGY-[address] Santo Patient was seen and examined at bedside. Continues to have abdominal pain and right knee pain. Denied fever, chills, HALLMAN, chest pain, SOB, abdominal pain, n/v/ d/c, or urinary symptoms. Patient admitted with physical deconditioning, R hip pain, found to have acetabular protrusion of hip prosthesis; R knee xray done today due to patient's complain of pain; reading mention old patellar fracture ORIF and osteoarthritis; reviewed by orthopedic service and felt to have proximal tibial fracture that is at least 6 weeks old; no surgical intervention felt needed but patient now back to complete non-weight bearing on R side (was previously advanced to toe-touch weight bearing for acetabular protrusion); knee immobilizer placed; Dispo: Patient is homeless but can go back to living with a friend; however, he needs regular PT to allow him to heal and doesn't have insurance for LAXMI; no anticipation of discharge in the near future. Objective - Vital Signs/Intake and Output Vital Signs (last 24 hours): Temp Pulse Resp BP Pulse Ox 98 F 70 20 98/65 L 96 04/23/16 08:00 04/23/16 08:00 04/23/16 08:00 04/23/16 08:00 04/23/16 08:00 Intake and Output: 04/23/16 04/23/16 06:59 18:59 Intake Total 720 Output Total 700 Balance 20 - Medications Medications: Current Medications Acetaminophen (Tylenol 325mg Tab) 650 mg PO Q6 [facility] Last Admin: 04/23/16 13:19 Dose: 650 mg Docusate Sodium (Colace) 100 mg PO BID [facility] Last Admin: 04/23/16 10:17 Dose: 100 mg Finasteride (Proscar) 5 mg PO DAILY [facility] Last Admin: 04/23/16 10:19 Dose: 5 mg Heparin Sodium (Porcine) (Heparin) 5,000 units SC Q8 [facility] Last Admin: 04/23/16 13:21 Dose: 5,000 units Oxycodone HCl (Oxycodone Immediate Release Tab) 5 mg PO Q8H PRN PRN Reason: Pain, severe (8-10) Phenazopyridine HCl (Pyridium) 200 mg PO TIDPC [facility] Last Admin: 04/23/16 13:27 Dose: 200 mg Polyethylene Glycol (Miralax) 17 gm PO BID [facility] Last Admin: 04/23/16 10:18 Dose: 17 gm Tamsulosin HCl (Flomax) 0.8 mg PO DAILY [facility] Last Admin: 04/23/16 10:18 Dose: 0.8 mg Vitamin A (Vitamin A & D Oint Ud Foilpak) 1 ea TOP Q8H [facility] Last Admin: 04/23/16 10:20 Dose: 1 ea - Labs Labs: 04/21/16 11:52 04/21/16 11:52 - Constitutional Appears: No Acute Distress - GI/Abdominal Exam GI & Abdominal Exam: Guarding, Tenderness - Extremities Exam Extremities Exam: Normal Inspection, Tenderness. absent: Pedal Edema - Neurological Exam Neurological Exam: Alert, Awake, Oriented x3 - Skin Skin Exam: Dry, Intact, Normal Color, Warm Assessment and Plan - Assessment and Plan (Free Text) Plan: Fracture of tibia, proximal, right, closed Patient seen and examined by Orthopedic group, Dr Pino and COREY Raines. -Impaction/insufficiency fracture, lateral aspect proximal tibia, non operative , treated with NWB and immobilization -At least 6 weeks old by imaging, likely now symptomatic due to increase to TTWB 04/21: Per Ortho: knee immobilizer applied, patient WB status changed to strict NWB at this time Gait Instability Chronic finding of R lower extremity pain (since admission) due to slippage of mechanical hardware in his leg from prior procedure. 04/21: Per Ortho: knee immobilizer applied, patient WB status changed to strict NWB at this time 04/20: PT Consult - PATIENT STABLE W/ USE OF SW UNSAFE FOR USE OF CANE, UNABLE TO USE CRUTCHES DUE TO R SH PROBLEM. Ortho Consult, Dr. Pino, f/u recs PT/OT; TTWB RLE; ortho stable for d/c; f/u Dr. Pino as outpatient 04/12: Per ortho: Independent to bathroom with walker. No acute fracture noted on imaging. No acute ortho intervention at this time. Pt can follow up outpatient. Xray 04/03: superior migration of prosthesis. sclerosi about right acetabulum. Anemia 04/21: Hgb low, stable 04/19: Hgb 10's, increasing prior: Hgb 9's - low, stable Abdominal Pain Inguinal hernia with unobstructed bowel loop involvement; protruded 04/18 due to straining on toilet. Tylenol 650 mg PO Q6 PRN mild pain Oxycodone 5mg q8 prn severe pain Abdominal US: Gallstones, no cholecystitis, no hydronephrosis. trace ascites ( see full report) Abd/pelv CT ordered 03/19/16- Results - Aneursmal dilatation of ascending thoracic aorta; Currently 4.5 cm. 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 BPH Pyridium 200 mg PO TIDPC Flomax 0.4 mg PO daily Proscar 5 mg PO daily 04/[address] Hughes: Suggest starting pyridium repeat psa in 2 to 3 weeks continue flomax. On discharge pt should be referred for urological re- evaluation/ Onychomycosis podiatry consult - Dr. Dixon Sacral decubitus-Resolved 04/19: exam revealed a previously healed decubitus ulcer of right buttocks. Sacral exam was clear. Wound care following - recommending medihoney covered with bordered telfa dressing to right lower buttocks stage 2 pressure ulcer daily. Pt is OOB to chair with help from PT daily Order placed for turning patient Q2H Prophylactic Measure Labs Q3Days Heparin 5000 units SC Q8H A and D ointment TOP Q*H Constipation: HOLD Miralax; Re-started Colace 100 mg PO BID Social Work - Patient is homeless. Used to stay with friend, but no longer welcome there. Goal is to walk with cane so he can go to a long-term (will not qualify with a walker)
[2016-04-23 13:53] LABS: HEMOGLOBIN 10.7 g/dL (12.0-18.0); MEAN CELL VOLUME 94.1 fL (80.0-94.0); MEAN CORPUSCULAR HEMOGLOBIN 31.1 pg (27.0-31.0); MEAN PLATELET VOLUME 7.7 fL (7.2-11.7); RBC 3.43 Mil/uL (4.40-5.90); RED CELL DISTRIBUTION WIDTH 19.7 % (11.5-14.5); WHITE BLOOD COUNT 3.8 K/uL (4.8-10.8)
[2016-04-23 14:02] LABS: ALBUMIN 3.7 g/dL (3.5-5.0)
[2016-04-23 14:04] LABS: GFR AFRICAN-AMERICAN > 60
[2016-04-23 14:05] LABS: ALB/GLOB RATIO 1.2 (1.0-2.1); ALT/SGPT 42 U/L (21-72); AST/SGOT 30 U/L (17-59); BLOOD UREA NITROGEN 17 mg/dL (9-20); GFR NON-AFRICAN AMERICAN > 60
[2016-04-23 14:06] LABS: CALCIUM 8.9 mg/dl (8.6-10.4)
[2016-04-24] MEDS: Vitamins A & D Oint UD Foilpak TOP SCH ×3 (01:50→17:30)
--- NOTE | 2016-04-24 07:45 | CP.PCM.PN ---
<Makayla Amaya - Last Filed: 04/24/16 09:50> Subjective - Date & Time of Evaluation Date of Evaluation: 04/24/16 Time of Evaluation: 07:00 - Subjective Subjective: PGY1 Medicine Note for Dr. Wiggins Patient seen and examined at bedside. Patient continues to complain of chronic abdominal pain especially at sites of bilateral inguinal hernia. He also complained of urinary hesitancy and straining. Patient had no acute events overnight as per nursing. Patient denied any fever, chills, chest pain, palpitations, SOB, cough, nausea, vomiting, diarrhea, constipation. Patient has pain in his Right leg secondary to the proximal tibia fracture and has a knee immobilizer in place. Patient states he walks around with the walker and help with PT but does not place any weight on his right leg. Patient is eating well. Objective - Vital Signs/Intake and Output Vital Signs (last 24 hours): Temp Pulse Resp BP Pulse Ox 98.4 F 76 20 105/64 95 04/23/16 16:00 04/23/16 23:51 04/23/16 16:00 04/23/16 16:00 04/23/16 16:00 Intake and Output: 04/24/16 04/24/16 06:59 18:59 Intake Total 660 Output Total 1000 Balance -340 - Medications Medications: Current Medications Acetaminophen (Tylenol 325mg Tab) 650 mg PO Q6 [facility] Last Admin: 04/24/16 05:47 Dose: 650 mg Docusate Sodium (Colace) 100 mg PO BID [facility] Last Admin: 04/23/16 18:21 Dose: 100 mg Finasteride (Proscar) 5 mg PO DAILY [facility] Last Admin: 04/23/16 10:19 Dose: 5 mg Heparin Sodium (Porcine) (Heparin) 5,000 units SC Q8 [facility] Last Admin: 04/24/16 05:46 Dose: 5,000 units Oxycodone HCl (Oxycodone Immediate Release Tab) 5 mg PO Q8H PRN PRN Reason: Pain, severe (8-10) Last Admin: 04/23/16 18:26 Dose: 5 mg Phenazopyridine HCl (Pyridium) 200 mg PO TIDPC [facility] Last Admin: 04/23/16 18:21 Dose: 200 mg Polyethylene Glycol (Miralax) 17 gm PO BID [facility] Last Admin: 04/23/16 18:22 Dose: 17 gm Tamsulosin HCl (Flomax) 0.8 mg PO DAILY [facility] Last Admin: 04/23/16 10:18 Dose: 0.8 mg Vitamin A (Vitamin A & D Oint Ud Foilpak) 1 ea TOP Q8H [facility] Last Admin: 04/24/16 01:50 Dose: 1 ea - Labs Labs: 04/23/16 13:49 04/23/16 13:49 - Constitutional Appears: Non-toxic, No Acute Distress, Cachectic, Chronically Ill - Head Exam Head Exam: NORMAL INSPECTION Additional comments: dry skin around face - Eye Exam Eye Exam: Normal appearance. absent: Conjunctival injection, Scleral icterus - ENT Exam ENT Exam: Mucous Membranes Moist - Neck Exam Neck Exam: Normal Inspection - Respiratory Exam Respiratory Exam: Clear to Ausculation Bilateral, NORMAL BREATHING PATTERN. absent: Accessory Muscle Use, Rales, Rhonchi, Wheezes, Respiratory Distress - Cardiovascular Exam Cardiovascular Exam: REGULAR RHYTHM, RRR, +S1, +S2. absent: Murmur - GI/Abdominal Exam GI & Abdominal Exam: Soft, Tenderness (diffusely tender to palpation), Normal Bowel Sounds. absent: Firm, Guarding, Rigid Additional comments: bilateral inguinal hernia noted - Extremities Exam Extremities Exam: Tenderness (RLE). absent: Pedal Edema Additional comments: R knee imobilizer in place - Neurological Exam Neurological Exam: Alert, Awake - Psychiatric Exam Psychiatric exam: Normal Affect, Normal Mood - Skin Skin Exam: Dry, Intact, Normal Color, Warm Assessment and Plan - Assessment and Plan (Free Text) Assessment: 71yo M with no PMHx admitted for generalized weakness, abdominal pain, and dysuria; now found to have R proximal tibial fracture Plan: Fracture of tibia, proximal, right, closed -Ortho Dr. Pino and Jayce NICOLE following- help appreciated -Impaction/insufficiency fracture, lateral aspect proximal tibia, non operative , treated with strict NWB and immobilization -At least 6 weeks old by imaging, likely now symptomatic due to increase to TTWB -Tylenol 650 mg PO Q6 PRN mild pain -Oxycodone 5mg q8 prn severe pain Gait Instability -Patient uses walker -Chronic RLE pain (since admission) due to slippage of mechanical hardware in his leg from prior procedure -R knee immobilizer in place and patient on strict NWB status -Xray 04/03: superior migration of prosthesis. sclerosi about right acetabulum -daily physical therapy Anemia -chronic -monitor with weekly labs Abdominal Pain -patient has been complaining of abdominal pain since admission -Inguinal hernia with unobstructed bowel loop involvement; protruded 04/18 due to straining on toilet. -Abdominal US 04/01: Gallstones, no acute cholecystitis, no hydronephrosis. trace ascites (see full report) -Abd/pelv CT 03/11: mod b/l pleural effusions and assoc consolidations; tiny probably gallstones within the gallbladder; small to moderate hiatal hernia; R inguinal hernia which contains small loops of bowel, likely small bowel- no evidence of obstruction as oral contrast is noted within R colon. No definite free air, however evaluation for pneumoperitoneum is suboptimal. Moderate to severe constipation with questionable impaction. Prostate gland 4.1cm x 4.6cm. Urinary bladder appears unremarkable. Small amount of fluid within a right inguinal hernia. Sclerosis of right iliac wing. Extensive anasarca. Aneursmal dilatation of ascending thoracic aorta; Currently 4.5 cm. Patient needs repeat Ct imaging every 6 months (July 2016) BPH -Pyridium 200 mg PO TIDPC -Flomax 0.8 mg PO daily -Finasteride 5 mg PO daily -Urology Dr. Hughes on board Onychomycosis -podiatry consult follow up recommendation Sacral decubitus-Resolved -04/19: exam revealed a previously healed decubitus ulcer of right buttocks. Sacral exam was clear. -Wound care following - recommending medihoney covered with bordered telfa dressing to right lower buttocks stage 2 pressure ulcer daily. -Pt is OOB to chair with help from PT daily -Order placed for turning patient Q2H Prophylactic Measure -Labs weekly -Lovenox 40mg SC daily -Pepcid 20mg PO BID -A and D ointment TOP Q*H -Colace 100mg PO BID -Miralax 17gm PO BID -Patient is homeless. Used to stay with friend, but no longer welcome there. Goal is to walk with cane so he can go to a long-term (will not qualify with a walker) Plan Discussed with Dr. Rosalie Amaya PGY1 <Jose Wiggins - Last Filed: 04/24/16 16:58> Objective - Vital Signs/Intake and Output Vital Signs (last 24 hours): Temp Pulse Resp BP Pulse Ox 97.4 F L 76 20 100/62 94 L 04/24/16 16:53 04/24/16 16:53 04/24/16 16:53 04/24/16 16:53 04/24/16 16:53 Intake and Output: 04/24/16 04/24/16 06:59 18:59 Intake Total 660 Output Total 1000 Balance -340 - Medications Medications: Current Medications Acetaminophen (Tylenol 325mg Tab) 650 mg PO Q6 [facility] Last Admin: 04/24/16 14:13 Dose: Not Given Docusate Sodium (Colace) 100 mg PO BID [facility] Last Admin: 04/24/16 10:26 Dose: 100 mg Enoxaparin Sodium (Lovenox) 40 mg SC DAILY [facility] Last Admin: 04/24/16 10:25 Dose: 40 mg Famotidine (Pepcid) 20 mg PO BID [facility] Last Admin: 04/24/16 10:26 Dose: 20 mg Finasteride (Proscar) 5 mg PO DAILY [facility] Last Admin: 04/24/16 10:27 Dose: 5 mg Oxycodone HCl (Oxycodone Immediate Release Tab) 5 mg PO Q8H PRN PRN Reason: Pain, severe (8-10) Last Admin: 04/23/16 18:26 Dose: 5 mg Phenazopyridine HCl (Pyridium) 200 mg PO TIDPC [facility] Last Admin: 04/24/16 14:15 Dose: 200 mg Polyethylene Glycol (Miralax) 17 gm PO BID [facility] Last Admin: 04/24/16 10:28 Dose: Not Given Tamsulosin HCl (Flomax) 0.8 mg PO DAILY [facility] Last Admin: 04/24/16 10:26 Dose: 0.8 mg Vitamin A (Vitamin A & D Oint Ud Foilpak) 1 ea TOP Q8H [facility] Last Admin: 04/24/16 10:27 Dose: 1 ea - Labs Labs: 04/23/16 13:49 04/23/16 13:49 Attending/Attestation - Attestation I have personally seen and examined this patient.: Yes I have fully participated in the care of the patient.: Yes I have reviewed all pertinent clinical information, including history, physical exam and plan: Yes Notes (Text): 04/24/16 16:57 Patient was seen and examined at bedside with the resident Patient appears comfortable lying in bed However he is complaining of right hip pain Patient is nonweightbearing on the right leg Continue pain management Continue physical therapy
[2016-04-24 07:59] LABS: IRON 77 ug/dL (49-181)
[2016-04-24 08:09] LABS: % IRON SATURATION 29 (20-55); TOTAL IRON BINDING CAPACITY 266 ug/dL (250-450)
[2016-04-24] MEDS: Enoxaparin 40 mg Syringe SC SCH (10:25)
[2016-04-24] MEDS: POLYETHYLENE GLYCOL 3350 17 GM/Dose PACKET PO SCH ×2 (10:28→17:28)
--- NOTE | 2016-04-24 12:50 | CP.PCM.PN ---
Subjective - Date & Time of Evaluation Date of Evaluation: 04/24/16 Time of Evaluation: 11:00 - Subjective Subjective: Patient states that pain in right hip and knee is controlled. He denies numbness. Complains of lower abd pain. Tolerating PT well with walker. Objective - Vital Signs/Intake and Output Vital Signs (last 24 hours): Temp Pulse Resp BP Pulse Ox 97.9 F 83 20 111/73 95 04/24/16 08:34 04/24/16 08:34 04/24/16 08:34 04/24/16 08:34 04/24/16 08:34 Intake and Output: 04/24/16 04/24/16 06:59 18:59 Intake Total 660 Output Total 1000 Balance -340 - Medications Medications: Current Medications Acetaminophen (Tylenol 325mg Tab) 650 mg PO Q6 [facility] Last Admin: 04/24/16 05:47 Dose: 650 mg Docusate Sodium (Colace) 100 mg PO BID [facility] Last Admin: 04/24/16 10:26 Dose: 100 mg Enoxaparin Sodium (Lovenox) 40 mg SC DAILY [facility] Last Admin: 04/24/16 10:25 Dose: 40 mg Famotidine (Pepcid) 20 mg PO BID [facility] Last Admin: 04/24/16 10:26 Dose: 20 mg Finasteride (Proscar) 5 mg PO DAILY [facility] Last Admin: 04/24/16 10:27 Dose: 5 mg Oxycodone HCl (Oxycodone Immediate Release Tab) 5 mg PO Q8H PRN PRN Reason: Pain, severe (8-10) Last Admin: 04/23/16 18:26 Dose: 5 mg Phenazopyridine HCl (Pyridium) 200 mg PO TIDPC [facility] Last Admin: 04/24/16 10:27 Dose: 200 mg Polyethylene Glycol (Miralax) 17 gm PO BID [facility] Last Admin: 04/24/16 10:28 Dose: Not Given Tamsulosin HCl (Flomax) 0.8 mg PO DAILY [facility] Last Admin: 04/24/16 10:26 Dose: 0.8 mg Vitamin A (Vitamin A & D Oint Ud Foilpak) 1 ea TOP Q8H [facility] Last Admin: 04/24/16 10:27 Dose: 1 ea - Labs Labs: 04/23/16 13:49 02/12/17 13:49 - Extremities Exam Additional comments: RLE: +ROM ankle/toes, sensation intact, knee immobilizer intact, adjusted. +DP pulse, calves soft NT neg homans. TTP to knee continues. No erythema. Skin dry, intact. AAOx3, in NAD Assessment and Plan (1) Acetabular protrusion Assessment & Plan: stable no orthopedic intervention planned at this time d/w Dr. Pino, agrees with above Status: Acute (2) Fracture of tibia, proximal, right, closed Assessment & Plan: impaction non displaced lateral proximal tibial fracture knee immobilizer NWB cont PT/OT ambulation with walker d/w Dr. Pino, agrees with above Status: Chronic Review of Systems - Review of Systems Constitutional: no symptoms reported Respiratory: No Resp. distress Cardiology: no symptoms reported Gastrointestinal/Abdominal: abdominal pain Genitourinary: pain Musculoskeletal: see HPI, joint pain Skin: no symptoms reported Neurological: no symptoms reported
[2016-04-25] MEDS: Vitamins A & D Oint UD Foilpak TOP SCH ×3 (01:43→17:50)
--- NOTE | 2016-04-25 07:15 | CP.PCM.PN ---
<Makayla Amaya - Last Filed: 04/25/16 11:30> Subjective - Date & Time of Evaluation Date of Evaluation: 04/25/16 Time of Evaluation: 07:15 - Subjective Subjective: PGY1 Medicine Note for Dr. Wiggins Patient seen and examined at bedside. Patient was refusing to work with PT this morning, complaining of increased pain. As per PT patient cannot use crutches due to his shoulder injury and needs to be nonweight bearing on his R leg and use a walker. Patient continued to complain of abdominal pain, pain in his legs , decreased appetite, and urinary hesitancy. He denied any chest pain, palpitations, shortness of breath, cough, nausea, vomiting. Patient did complain of some diarrhea at first but when asked if it was watery he was unable to qualify. Patient was encouraged to eat and work with physical therapy. Objective - Vital Signs/Intake and Output Vital Signs (last 24 hours): Temp Pulse Resp BP Pulse Ox 98.1 F 76 20 100/62 94 L 04/25/16 00:32 04/24/16 16:53 04/24/16 16:53 04/24/16 16:53 04/24/16 16:53 Intake and Output: 04/25/16 04/25/16 06:59 18:59 Intake Total 340 Output Total 940 Balance -600 - Medications Medications: Current Medications Acetaminophen (Tylenol 325mg Tab) 650 mg PO Q6 [facility] Last Admin: 04/25/16 06:01 Dose: 650 mg Docusate Sodium (Colace) 100 mg PO BID [facility] Last Admin: 04/24/16 17:27 Dose: 100 mg Enoxaparin Sodium (Lovenox) 40 mg SC DAILY [facility] Last Admin: 04/24/16 10:25 Dose: 40 mg Famotidine (Pepcid) 20 mg PO BID [facility] Last Admin: 04/24/16 17:28 Dose: 20 mg Finasteride (Proscar) 5 mg PO DAILY [facility] Last Admin: 04/24/16 10:27 Dose: 5 mg Oxycodone HCl (Oxycodone Immediate Release Tab) 5 mg PO Q8H PRN PRN Reason: Pain, severe (8-10) Last Admin: 04/23/16 18:26 Dose: 5 mg Phenazopyridine HCl (Pyridium) 200 mg PO TIDPC [facility] Last Admin: 04/24/16 17:28 Dose: 200 mg Polyethylene Glycol (Miralax) 17 gm PO BID [facility] Last Admin: 04/24/16 17:28 Dose: 17 gm Tamsulosin HCl (Flomax) 0.8 mg PO DAILY [facility] Last Admin: 04/24/16 10:26 Dose: 0.8 mg Vitamin A (Vitamin A & D Oint Ud Foilpak) 1 ea TOP Q8H [facility] Last Admin: 04/25/16 01:43 Dose: 1 ea - Labs Labs: 04/23/16 13:49 04/23/16 13:49 - Constitutional Appears: Non-toxic, Unkempt, Cachectic, Chronically Ill - Head Exam Head Exam: NORMAL INSPECTION Additional comments: dry skin - Eye Exam Eye Exam: Normal appearance. absent: Conjunctival injection, Scleral icterus - ENT Exam ENT Exam: Mucous Membranes Dry - Respiratory Exam Respiratory Exam: Clear to Ausculation Bilateral, NORMAL BREATHING PATTERN. absent: Accessory Muscle Use, Rales, Rhonchi, Wheezes, Respiratory Distress - Cardiovascular Exam Cardiovascular Exam: REGULAR RHYTHM, RRR, +S1, +S2 - GI/Abdominal Exam GI & Abdominal Exam: Soft, Tenderness (diffuse to palpation), Normal Bowel Sounds. absent: Firm, Guarding, Rigid Additional comments: inguinal hernia noted - Extremities Exam Extremities Exam: Tenderness (RLE). absent: Pedal Edema Additional comments: R knee imobilizer in place - Neurological Exam Neurological Exam: Alert, Awake - Psychiatric Exam Psychiatric exam: Normal Affect, Normal Mood - Skin Skin Exam: Dry, Warm Assessment and Plan - Assessment and Plan (Free Text) Assessment: 71yo M with no PMHx admitted for generalized weakness, abdominal pain, and dysuria; now found to have R proximal tibial fracture Plan: Fracture of tibia, proximal, right, closed -Ortho Dr. Pino and Jayce NICOLE following- help appreciated -Impaction/insufficiency fracture, lateral aspect proximal tibia, non operative , treated with strict NWB and immobilization -At least 6 weeks old by imaging, likely now symptomatic due to increase to TTWB -Tylenol 650 mg PO Q6 PRN mild pain -Oxycodone 5mg q8 prn severe pain Gait Instability -Patient uses walker -Chronic RLE pain (since admission) due to slippage of mechanical hardware in his leg from prior procedure -R knee immobilizer in place and patient on strict NWB status -Xray 04/03: superior migration of prosthesis. sclerosi about right acetabulum -daily physical therapy Anemia -chronic -monitor with weekly labs Abdominal Pain -patient has been complaining of abdominal pain since admission -Inguinal hernia with unobstructed bowel loop involvement; protruded 04/18 due to straining on toilet. -Abdominal US 04/01: Gallstones, no acute cholecystitis, no hydronephrosis. trace ascites (see full report) -Abd/pelv CT 03/11: mod b/l pleural effusions and assoc consolidations; tiny probably gallstones within the gallbladder; small to moderate hiatal hernia; R inguinal hernia which contains small loops of bowel, likely small bowel- no evidence of obstruction as oral contrast is noted within R colon. No definite free air, however evaluation for pneumoperitoneum is suboptimal. Moderate to severe constipation with questionable impaction. Prostate gland 4.1cm x 4.6cm. Urinary bladder appears unremarkable. Small amount of fluid within a right inguinal hernia. Sclerosis of right iliac wing. Extensive anasarca. Aneursmal dilatation of ascending thoracic aorta; Currently 4.5 cm. Patient needs repeat Ct imaging every 6 months (July 2016) BPH -Pyridium 200 mg PO TIDPC -Flomax 0.8 mg PO daily -Finasteride 5 mg PO daily -Urology Dr. Hughes on board Onychomycosis -podiatry consult follow up recommendation Sacral decubitus-Resolved -04/19: exam revealed a previously healed decubitus ulcer of right buttocks. Sacral exam was clear. -Wound care following - recommending medihoney covered with bordered telfa dressing to right lower buttocks stage 2 pressure ulcer daily. -Pt is OOB to chair with help from PT daily -Order placed for turning patient Q2H Prophylactic Measure -Labs weekly -Lovenox 40mg SC daily -Pepcid 20mg PO BID -A and D ointment TOP Q*H -Colace 100mg PO BID -Patient is homeless. Used to stay with friend, but no longer welcome there. Goal is to walk with cane so he can go to a [facility] (will not qualify with a walker) Plan Discussed with Dr. Rosalie Amaya PGY1 <Jose Wiggins - Last Filed: 04/25/16 16:22> Objective - Vital Signs/Intake and Output Vital Signs (last 24 hours): Temp Pulse Resp BP Pulse Ox 97.6 F 72 18 124/78 95 04/25/16 07:00 04/25/16 15:50 04/25/16 07:00 04/25/16 15:10 04/25/16 15:10 Intake and Output: 04/25/16 04/25/16 06:59 18:59 Intake Total 490 400 Output Total 1440 Balance -950 400 - Medications Medications: Current Medications Acetaminophen (Tylenol 325mg Tab) 650 mg PO Q6 [facility] Last Admin: 04/25/16 12:55 Dose: 650 mg Clotrimazole (Lotrimin 1%) 0 gm TOP BID [facility] Docusate Sodium (Colace) 100 mg PO BID [facility] Last Admin: 04/25/16 10:29 Dose: 100 mg Enoxaparin Sodium (Lovenox) 40 mg SC DAILY [facility] Last Admin: 04/25/16 10:28 Dose: 40 mg Famotidine (Pepcid) 20 mg PO BID [facility] Last Admin: 04/25/16 10:28 Dose: 20 mg Finasteride (Proscar) 5 mg PO DAILY [facility] Last Admin: 04/25/16 10:30 Dose: 5 mg Oxycodone HCl (Oxycodone Immediate Release Tab) 5 mg PO Q8H PRN PRN Reason: Pain, severe (8-10) Last Admin: 04/23/16 18:26 Dose: 5 mg Phenazopyridine HCl (Pyridium) 200 mg PO TIDPC [facility] Last Admin: 04/25/16 12:54 Dose: 200 mg Tamsulosin HCl (Flomax) 0.8 mg PO DAILY [facility] Last Admin: 04/25/16 10:28 Dose: 0.8 mg Vitamin A (Vitamin A & D Oint Ud Foilpak) 1 ea TOP Q8H [facility] Last Admin: 04/25/16 10:29 Dose: 1 ea - Labs Labs: 04/23/16 13:49 04/23/16 13:49 Attending/Attestation - Attestation I have personally seen and examined this patient.: Yes I have fully participated in the care of the patient.: Yes I have reviewed all pertinent clinical information, including history, physical exam and plan: Yes Notes (Text): 04/25/16 16:22 Patient was seen and examined at bedside with the resident Awake and alert but complains of for right hip pain Continue pain management next and continue physical therapy Podiatry evaluation noted. Orthopedics follow-up seen and appreciated Discussed the plan of care with the resident
--- NOTE | 2016-04-25 09:29 | CP.PCM.PN ---
Subjective - Date & Time of Evaluation Date of Evaluation: 04/25/16 Time of Evaluation: 09:26 - Subjective Subjective: Patient says he has no appetite today. Tired. Pain in hip and knee same, controlled. No other new complaints. Objective - Vital Signs/Intake and Output Vital Signs (last 24 hours): Temp Pulse Resp BP Pulse Ox 97.6 F 72 18 124/78 95 04/25/16 07:00 04/25/16 07:00 04/25/16 07:00 04/25/16 07:00 04/25/16 07:00 Intake and Output: 04/25/16 04/25/16 06:59 18:59 Intake Total 490 Output Total 1440 Balance -950 - Medications Medications: Current Medications Acetaminophen (Tylenol 325mg Tab) 650 mg PO Q6 [facility] Last Admin: 04/25/16 06:01 Dose: 650 mg Docusate Sodium (Colace) 100 mg PO BID [facility] Last Admin: 04/24/16 17:27 Dose: 100 mg Enoxaparin Sodium (Lovenox) 40 mg SC DAILY [facility] Last Admin: 04/24/16 10:25 Dose: 40 mg Famotidine (Pepcid) 20 mg PO BID [facility] Last Admin: 04/24/16 17:28 Dose: 20 mg Finasteride (Proscar) 5 mg PO DAILY [facility] Last Admin: 04/24/16 10:27 Dose: 5 mg Oxycodone HCl (Oxycodone Immediate Release Tab) 5 mg PO Q8H PRN PRN Reason: Pain, severe (8-10) Last Admin: 04/23/16 18:26 Dose: 5 mg Phenazopyridine HCl (Pyridium) 200 mg PO TIDPC [facility] Last Admin: 04/25/16 08:08 Dose: 200 mg Polyethylene Glycol (Miralax) 17 gm PO BID [facility] Last Admin: 04/24/16 17:28 Dose: 17 gm Tamsulosin HCl (Flomax) 0.8 mg PO DAILY [facility] Last Admin: 04/24/16 10:26 Dose: 0.8 mg Vitamin A (Vitamin A & D Oint Ud Foilpak) 1 ea TOP Q8H [facility] Last Admin: 04/25/16 01:43 Dose: 1 ea - Labs Labs: 04/23/16 13:49 04/23/16 13:49 - Extremities Exam Additional comments: RLE: knee immobilizer intact, +ROM ankle/toes, sensation intact, +DP pulse, calves soft NT neg homans. Immobilizer adjusted. Patient AAOx3, easily aroused. Assessment and Plan (1) Acetabular protrusion Assessment & Plan: chronic no acute changes limit WB no intervention planned Status: Acute (2) Fracture of tibia, proximal, right, closed Assessment & Plan: impacted insufficiency fracture lateral tibial plateau -NWB -knee immobilizer except to bath -patient in hospital as homeless [facility] -VTE proph PT/OT ortho stable, non operative -d/w Dr. Pino, agrees with above Status: Chronic
[2016-04-25] MEDS: Enoxaparin 40 mg Syringe SC SCH (10:28)
[2016-04-25] MEDS: POLYETHYLENE GLYCOL 3350 17 GM/Dose PACKET PO SCH ×2 (10:29→10:32)
--- NOTE | 2016-04-25 15:40 | CP.PCM.CON ---
History of Present Illness - History of Present Illness History of Present Illness: This is a 71 y/o male who was seen and evaluated at bedside today after request for podiatry consultation for onychomycosis. Patient was resting comfortably, in NAD. He states that he has some pain associated with his elongated toenails and states that he would like them to be debrided today. He denies any other pain in his feet and denies any burning, tingling or numbness. No other pedal complaints reported at this time. Past Patient History - Infectious Disease Hx of Infectious Diseases: None - Past Medical History & Family History Past Medical History?: Yes - Past Social History Smoking Status: Never Smoked - CARDIAC Hx Hypertension: Yes - PULMONARY Hx Chronic Obstructive Pulmonary Disease (COPD): Yes - NEUROLOGICAL Hx Neurological Disorder: No - HEENT Hx HEENT Problems: No - RENAL Hx Chronic Kidney Disease: No - ENDOCRINE/METABOLIC Hx Endocrine Disorders: No - HEMATOLOGICAL/ONCOLOGICAL Hx Human Immunodeficiency Virus (HIV): No - INTEGUMENTARY Hx Dermatological Problems: No - MUSCULOSKELETAL/RHEUMATOLOGICAL Hx Arthritis: Yes - GASTROINTESTINAL Hx Gastrointestinal Disorders: No - GENITOURINARY/GYNECOLOGICAL Hx Genitourinary Disorders: Yes - PSYCHIATRIC Hx Anxiety: Yes Hx Depression: Yes Hx Substance Use: No - SURGICAL HISTORY Hx Herniorrhaphy: Yes Other/Comment: Hip surgery and abdominal surgery - ANESTHESIA Hx Anesthesia: Yes Hx Anesthesia Reactions: No Meds Allergies/Adverse Reactions: Allergies Allergy/AdvReac Type Severity Reaction Status Date / Time No Known Allergies Allergy Verified 03/08/16 19:44 - Medications Medications: Current Medications Acetaminophen (Tylenol 325mg Tab) 650 mg PO Q6 [facility] Last Admin: 04/25/16 12:55 Dose: 650 mg Docusate Sodium (Colace) 100 mg PO BID [facility] Last Admin: 04/25/16 10:29 Dose: 100 mg Enoxaparin Sodium (Lovenox) 40 mg SC DAILY [facility] Last Admin: 04/25/16 10:28 Dose: 40 mg Famotidine (Pepcid) 20 mg PO BID [facility] Last Admin: 04/25/16 10:28 Dose: 20 mg Finasteride (Proscar) 5 mg PO DAILY [facility] Last Admin: 04/25/16 10:30 Dose: 5 mg Oxycodone HCl (Oxycodone Immediate Release Tab) 5 mg PO Q8H PRN PRN Reason: Pain, severe (8-10) Last Admin: 04/23/16 18:26 Dose: 5 mg Phenazopyridine HCl (Pyridium) 200 mg PO TIDPC [facility] Last Admin: 04/25/16 12:54 Dose: 200 mg Tamsulosin HCl (Flomax) 0.8 mg PO DAILY [facility] Last Admin: 04/25/16 10:28 Dose: 0.8 mg Vitamin A (Vitamin A & D Oint Ud Foilpak) 1 ea TOP Q8H [facility] Last Admin: 04/25/16 10:29 Dose: 1 ea Physical Exam - Constitutional Appears: No Acute Distress - Neurological Exam Neurological exam: Alert - Skin Skin Exam: Dry - Additional Findings Additional findings: Bilateral lower extremity exam: Vascular: DP/PT pulses 1/4; CFT < 3 sec to all digits; TG WNL Neuro: light touch, protective sensation and motor function all grossly intact Derm: plantar xerosis and annular scaling present, consistent with tinea pedis; toenails are elongated, thickened, mycotic and discolored; no open wounds, no erythema noted Results - Vital Signs Recent Vital Signs: Last Vital Signs Temp 97.6 F 04/25/16 07:00 Pulse 72 04/25/16 15:10 Resp 18 04/25/16 07:00 BP 124/78 04/25/16 15:10 Pulse Ox 95 04/25/16 15:10 - Labs Result Diagrams: 04/23/16 13:49 04/23/16 13:49 Assessment & Plan - Assessment and Plan (Free Text) Assessment: 71 y/o M with bilateral tinea pedis and onychomycosis Plan: Patient seen and evaluated at bedside Performed aseptic debridement of toenails x10 with small sterile nippers Patient tolerated procedure well and with no complications Will order clotrimazole cream, to be applied to both feet BID Patient is stable from podiatric standpoint Discussed patient with attending, Dr. Hughes Thank you for the consult
[2016-04-25] MEDS: Clotrimazole 1% Cream 15 GM TUBE TOP SCH (18:05)
[2016-04-26] MEDS: Vitamins A & D Oint UD Foilpak TOP SCH ×3 (00:47→17:25)
--- NOTE | 2016-04-26 07:23 | CP.PCM.PN ---
<MoniqueMakayla - Last Filed: 04/26/16 09:58> Subjective - Date & Time of Evaluation Date of Evaluation: 04/26/16 Time of Evaluation: 07:00 - Subjective Subjective: PGY1 Medicine Note for Dr. Wiggins Patient seen and examined at bedside. Patient reported feeling a little better this AM and reported eating a little bit. He said he preferred Vanilla over Chocolate Ensure. He continues to complain of abdominal pain and diarrhea and was scared that if he ate he would have more diarrhea; patient was counseled about the importance of proper PO intake. He also continues to complain of pain in his legs R>L and urinary hesitancy. Patient denied any chest pain, palpitations, shortness of breath, cough, nausea, vomiting. Patient encouraged to eat and continue working with physical therapy. Objective - Vital Signs/Intake and Output Vital Signs (last 24 hours): Temp Pulse Resp BP Pulse Ox 97.7 F 61 16 121/70 98 04/26/16 06:10 04/26/16 02:42 04/25/16 23:00 04/25/16 23:00 04/25/16 23:00 Intake and Output: 04/26/16 04/26/16 06:59 18:59 Intake Total 540 Output Total 400 Balance 140 - Medications Medications: Current Medications Acetaminophen (Tylenol 325mg Tab) 650 mg PO Q6 [facility] Last Admin: 04/26/16 06:10 Dose: 650 mg Clotrimazole (Lotrimin 1%) 0 gm TOP BID [facility] Last Admin: 04/25/16 18:05 Dose: 1 units Docusate Sodium (Colace) 100 mg PO BID [facility] Last Admin: 04/25/16 17:56 Dose: 100 mg Enoxaparin Sodium (Lovenox) 40 mg SC DAILY [facility] Last Admin: 04/25/16 10:28 Dose: 40 mg Famotidine (Pepcid) 20 mg PO BID [facility] Last Admin: 04/25/16 17:56 Dose: 20 mg Finasteride (Proscar) 5 mg PO DAILY [facility] Last Admin: 04/25/16 10:30 Dose: 5 mg Oxycodone HCl (Oxycodone Immediate Release Tab) 5 mg PO Q8H PRN PRN Reason: Pain, severe (8-10) Last Admin: 02/12/17 18:26 Dose: 5 mg Phenazopyridine HCl (Pyridium) 200 mg PO TIDPC [facility] Last Admin: 04/25/16 18:00 Dose: 200 mg Tamsulosin HCl (Flomax) 0.8 mg PO DAILY [facility] Last Admin: 04/25/16 10:28 Dose: 0.8 mg Vitamin A (Vitamin A & D Oint Ud Foilpak) 1 ea TOP Q8H [facility] Last Admin: 04/26/16 00:47 Dose: 1 ea - Labs Labs: 04/23/16 13:49 04/23/16 13:49 - Constitutional Appears: Non-toxic, Unkempt, Cachectic, Chronically Ill - Head Exam Head Exam: NORMAL INSPECTION - Eye Exam Eye Exam: Normal appearance. absent: Conjunctival injection, Scleral icterus - ENT Exam ENT Exam: Mucous Membranes Dry - Respiratory Exam Respiratory Exam: Clear to Ausculation Bilateral, NORMAL BREATHING PATTERN. absent: Accessory Muscle Use, Rales, Rhonchi, Wheezes, Respiratory Distress - Cardiovascular Exam Cardiovascular Exam: REGULAR RHYTHM, RRR, +S1, +S2 - GI/Abdominal Exam GI & Abdominal Exam: Soft, Tenderness (diffusely tender to palpation), Hernia ( inguinal ), Normal Bowel Sounds - Extremities Exam Extremities Exam: Tenderness (to palpation). absent: Pedal Edema Additional comments: R knee imobilizer in place - Back Exam Back Exam: absent: rash noted - Neurological Exam Neurological Exam: Alert, Awake, Oriented x3 - Psychiatric Exam Psychiatric exam: Normal Affect, Normal Mood - Skin Skin Exam: Dry, Intact, Normal Color, Warm Assessment and Plan - Assessment and Plan (Free Text) Assessment: 71yo M with no PMHx admitted for generalized weakness, abdominal pain, and dysuria; now found to have R proximal tibial fracture Plan: Fracture of tibia, proximal, right, closed -Ortho Dr. Pino and Jayce NICOLE following- help appreciated -Impaction/insufficiency fracture, lateral aspect proximal tibia, non operative , treated with strict NWB and immobilization -At least 6 weeks old by imaging, likely now symptomatic due to increase to TTWB -Tylenol 650 mg PO Q6 PRN mild pain -Oxycodone 5mg q8 prn severe pain Gait Instability -Patient uses walker -Chronic RLE pain (since admission) due to slippage of mechanical hardware in his leg from prior procedure -R knee immobilizer in place and patient on strict NWB status -Xray 04/03: superior migration of prosthesis. sclerosi about right acetabulum -daily physical therapy Anemia -chronic -monitor with weekly labs Abdominal Pain -patient has been complaining of abdominal pain since admission -Inguinal hernia with unobstructed bowel loop involvement; protruded 04/18 due to straining on toilet. -Abdominal US 04/01: Gallstones, no acute cholecystitis, no hydronephrosis. trace ascites (see full report) -Abd/pelv CT 03/11: mod b/l pleural effusions and assoc consolidations; tiny probably gallstones within the gallbladder; small to moderate hiatal hernia; R inguinal hernia which contains small loops of bowel, likely small bowel- no evidence of obstruction as oral contrast is noted within R colon. No definite free air, however evaluation for pneumoperitoneum is suboptimal. Moderate to severe constipation with questionable impaction. Prostate gland 4.1cm x 4.6cm. Urinary bladder appears unremarkable. Small amount of fluid within a right inguinal hernia. Sclerosis of right iliac wing. Extensive anasarca. Aneursmal dilatation of ascending thoracic aorta; Currently 4.5 cm. Patient needs repeat Ct imaging every 6 months (July 2016) BPH -Pyridium 200 mg PO TIDPC -Flomax 0.8 mg PO daily -Finasteride 5 mg PO daily -Urology Dr. Hughes on board Onychomycosis -patient had aseptic debridement of toenails x 10 -clotrimazole cream to be applied to feet b/l BID -podiatry consult- help appreciated Sacral decubitus-Resolved -04/19: exam revealed a previously healed decubitus ulcer of right buttocks. Sacral exam was clear. -Wound care following - recommending medihoney covered with bordered telfa dressing to right lower buttocks stage 2 pressure ulcer daily. -Pt is OOB to chair with help from PT daily -Order placed for turning patient Q2H Prophylactic Measure -Labs weekly -Lovenox 40mg SC daily -Pepcid 20mg PO BID -A and D ointment TOP Q*H -Colace 100mg PO BID -Patient is homeless. Used to stay with friend, but no longer welcome there. Goal is to walk with cane so he can go to a halfway (will not qualify with a walker) Plan Discussed with Dr. Rosalie Amaya PGY1 <Jose Wiggins - Last Filed: 04/26/16 15:52> Objective - Vital Signs/Intake and Output Vital Signs (last 24 hours): Temp Pulse Resp BP Pulse Ox 98.0 F 80 20 104/79 96 04/26/16 08:16 04/26/16 12:14 04/26/16 08:16 04/26/16 08:16 04/26/16 08:16 Intake and Output: 04/26/16 04/26/16 06:59 18:59 Intake Total 540 360 Output Total 400 400 Balance 140 -40 - Medications Medications: Current Medications Acetaminophen (Tylenol 325mg Tab) 650 mg PO Q6 [facility] Last Admin: 04/26/16 12:26 Dose: 650 mg Clotrimazole (Lotrimin 1%) 0 gm TOP BID [facility] Last Admin: 04/26/16 09:43 Dose: 1 units Docusate Sodium (Colace) 100 mg PO BID [facility] Last Admin: 04/26/16 09:44 Dose: 100 mg Enoxaparin Sodium (Lovenox) 40 mg SC DAILY [facility] Last Admin: 04/26/16 09:42 Dose: 40 mg Famotidine (Pepcid) 20 mg PO BID [facility] Last Admin: 04/26/16 09:44 Dose: 20 mg Finasteride (Proscar) 5 mg PO DAILY [facility] Last Admin: 04/26/16 09:44 Dose: 5 mg Oxycodone HCl (Oxycodone Immediate Release Tab) 5 mg PO Q8H PRN PRN Reason: Pain, severe (8-10) Last Admin: 04/23/16 18:26 Dose: 5 mg Phenazopyridine HCl (Pyridium) 200 mg PO TIDPC [facility] Last Admin: 04/26/16 12:30 Dose: 200 mg Tamsulosin HCl (Flomax) 0.8 mg PO DAILY [facility] Last Admin: 04/26/16 09:44 Dose: 0.8 mg Vitamin A (Vitamin A & D Oint Ud Foilpak) 1 ea TOP Q8H [facility] Last Admin: 04/26/16 09:44 Dose: 1 ea - Labs Labs: 04/23/16 13:49 04/23/16 13:49 Attending/Attestation - Attestation I have personally seen and examined this patient.: Yes I have fully participated in the care of the patient.: Yes I have reviewed all pertinent clinical information, including history, physical exam and plan: Yes Notes (Text): 04/26/16 15:51 Patient was seen and examined at bedside with the resident Still complains of right hip pain Continue pain management Continue physical therapy daily Patient is nonweightbearing on right lower extremity
[2016-04-26] MEDS: Enoxaparin 40 mg Syringe SC SCH (09:42)
[2016-04-26] MEDS: Clotrimazole 1% Cream 15 GM TUBE TOP SCH ×2 (09:43→18:00)
--- NOTE | 2016-04-26 09:53 | CP.PCM.PN ---
Subjective - Date & Time of Evaluation Date of Evaluation: 04/26/16 Time of Evaluation: 11:05 - Subjective Subjective: Patient sleepy, easily aroused. Complains of pain, but controlled with medication in knee and hip. Denies CP/SOB. No new complaints of pain. Objective - Vital Signs/Intake and Output Vital Signs (last 24 hours): Temp Pulse Resp BP Pulse Ox 98.0 F 80 20 104/79 96 04/26/16 08:16 04/26/16 08:16 04/26/16 08:16 04/26/16 08:16 04/26/16 08:16 Intake and Output: 04/26/16 04/26/16 06:59 18:59 Intake Total 540 Output Total 400 Balance 140 - Medications Medications: Current Medications Acetaminophen (Tylenol 325mg Tab) 650 mg PO Q6 [facility] Last Admin: 04/26/16 06:10 Dose: 650 mg Clotrimazole (Lotrimin 1%) 0 gm TOP BID [facility] Last Admin: 04/26/16 09:43 Dose: 1 units Docusate Sodium (Colace) 100 mg PO BID [facility] Last Admin: 04/26/16 09:44 Dose: 100 mg Enoxaparin Sodium (Lovenox) 40 mg SC DAILY [facility] Last Admin: 04/26/16 09:42 Dose: 40 mg Famotidine (Pepcid) 20 mg PO BID [facility] Last Admin: 04/26/16 09:44 Dose: 20 mg Finasteride (Proscar) 5 mg PO DAILY [facility] Last Admin: 04/26/16 09:44 Dose: 5 mg Oxycodone HCl (Oxycodone Immediate Release Tab) 5 mg PO Q8H PRN PRN Reason: Pain, severe (8-10) Last Admin: 04/23/16 18:26 Dose: 5 mg Phenazopyridine HCl (Pyridium) 200 mg PO TIDPC [facility] Last Admin: 04/25/16 18:00 Dose: 200 mg Tamsulosin HCl (Flomax) 0.8 mg PO DAILY [facility] Last Admin: 04/26/16 09:44 Dose: 0.8 mg Vitamin A (Vitamin A & D Oint Ud Foilpak) 1 ea TOP Q8H [facility] Last Admin: 04/26/16 09:44 Dose: 1 ea - Labs Labs: 04/23/16 13:49 04/23/16 13:49 - Extremities Exam Additional comments: RLE: knee immob intact. +ROM ankle/toes, sensation intact, calves soft NT neg homans +DP pulse, no swelling/discoloration, no erythema. - Neurological Exam Neurological Exam: Alert, Awake, Oriented x3 - Skin Skin Exam: Dry, Intact, Normal Color, Warm Assessment and Plan (1) Acetabular protrusion Assessment & Plan: chronic no acute changes no orthopedic intervention indicated at this time d/w Dr. Pino, agrees with above Status: Acute (2) Fracture of tibia, proximal, right, closed Assessment & Plan: non operative knee immobilizer strict NWB at this time PT/OT d/w Dr. Pino Status: Chronic Review of Systems - Review of Systems Constitutional: no symptoms reported Respiratory: No Resp. distress Cardiology: no symptoms reported Gastrointestinal/Abdominal: abdominal pain Genitourinary: no symptoms reported Musculoskeletal: see HPI Skin: no symptoms reported Neurological: no symptoms reported
[2016-04-27] MEDS: Vitamins A & D Oint UD Foilpak TOP SCH ×3 (01:52→18:07)
--- NOTE | 2016-04-27 07:26 | CP.PCM.PN ---
<Makayla Amaya - Last Filed: 04/27/16 12:43> Subjective - Date & Time of Evaluation Date of Evaluation: 04/27/16 Time of Evaluation: 07:00 - Subjective Subjective: PGY1 Medicine Note for Dr. Wiggins Patient seen and examined at bedside. Patient continues to complain of abdominal pain, diarrhea, pain in his RLE, and difficulty urinating. As per nursing, patient did not have diarrhea. Patient also complaining of decreased appetite although he has been encouraged to eat. Patient denied any headache, dizziness, chest pain, palpitations, shortness of breath, nausea, vomiting. Patient has been encouraged to walk and eat. Objective - Vital Signs/Intake and Output Vital Signs (last 24 hours): Temp Pulse Resp BP Pulse Ox 97.9 F 82 20 97/59 L 95 04/27/16 01:24 04/27/16 01:24 04/27/16 01:24 04/27/16 01:24 04/27/16 01:24 Intake and Output: 04/27/16 04/27/16 06:59 18:59 Intake Total 340 240 Output Total 650 300 Balance -310 -60 - Medications Medications: Current Medications Acetaminophen (Tylenol 325mg Tab) 650 mg PO Q6 [facility] Last Admin: 04/27/16 05:59 Dose: 650 mg Clotrimazole (Lotrimin 1%) 0 gm TOP BID [facility] Last Admin: 04/26/16 18:00 Dose: 1 units Docusate Sodium (Colace) 100 mg PO BID [facility] Last Admin: 04/26/16 17:24 Dose: 100 mg Enoxaparin Sodium (Lovenox) 40 mg SC DAILY [facility] Last Admin: 04/26/16 09:42 Dose: 40 mg Famotidine (Pepcid) 20 mg PO BID [facility] Last Admin: 04/26/16 17:24 Dose: 20 mg Finasteride (Proscar) 5 mg PO DAILY [facility] Last Admin: 04/26/16 09:44 Dose: 5 mg Oxycodone HCl (Oxycodone Immediate Release Tab) 5 mg PO Q8H PRN PRN Reason: Pain, severe (8-10) Last Admin: 04/23/16 18:26 Dose: 5 mg Phenazopyridine HCl (Pyridium) 200 mg PO TIDPC [facility] Last Admin: 02/15/17 17:25 Dose: 200 mg Tamsulosin HCl (Flomax) 0.8 mg PO DAILY [facility] Last Admin: 04/26/16 09:44 Dose: 0.8 mg Vitamin A (Vitamin A & D Oint Ud Foilpak) 1 ea TOP Q8H [facility] Last Admin: 04/27/16 01:52 Dose: 1 ea - Labs Labs: 04/23/16 13:49 04/23/16 13:49 - Constitutional Appears: No Acute Distress, Unkempt, Cachectic, Chronically Ill - Head Exam Head Exam: NORMAL INSPECTION - Eye Exam Eye Exam: Normal appearance. absent: Conjunctival injection, Scleral icterus - ENT Exam ENT Exam: Mucous Membranes Dry - Respiratory Exam Respiratory Exam: Clear to Ausculation Bilateral, NORMAL BREATHING PATTERN. absent: Rales, Rhonchi, Wheezes - Cardiovascular Exam Cardiovascular Exam: REGULAR RHYTHM, RRR, +S1, +S2 - GI/Abdominal Exam GI & Abdominal Exam: Soft, Tenderness (slight to palpation), Hernia (inguinal ) , Normal Bowel Sounds. absent: Firm, Guarding, Rigid - Extremities Exam Additional comments: R knee imobilizer in place - Back Exam Back Exam: absent: rash noted - Neurological Exam Neurological Exam: Alert, Awake - Psychiatric Exam Psychiatric exam: Normal Affect, Normal Mood - Skin Skin Exam: Dry, Intact, Normal Color, Warm Assessment and Plan - Assessment and Plan (Free Text) Assessment: 71yo M with no PMHx admitted for generalized weakness, abdominal pain, and dysuria; now found to have R proximal tibial fracture Plan: Fracture of tibia, proximal, right, closed -Ortho Dr. Pino and Jayce NICOLE following- help appreciated -Impaction/insufficiency fracture, lateral aspect proximal tibia, non operative , treated with strict NWB and immobilization -At least 6 weeks old by imaging, likely now symptomatic due to increase to TTWB -Tylenol 650 mg PO Q6 PRN mild pain -Oxycodone 5mg q8 prn severe pain -Daily physical therapy and being walked by medical student daily -Nonweight bearing on R leg Gait Instability -Patient uses walker -Chronic RLE pain (since admission) due to slippage of mechanical hardware in his leg from prior procedure -R knee immobilizer in place and patient on strict NWB status -Xray 04/03: superior migration of prosthesis. sclerosi about right acetabulum -daily physical therapy Anemia -chronic -monitor with weekly labs Abdominal Pain -patient has been complaining of abdominal pain since admission -Inguinal hernia with unobstructed bowel loop involvement; protruded 04/18 due to straining on toilet. -Abdominal US 04/01: Gallstones, no acute cholecystitis, no hydronephrosis. trace ascites (see full report) -Abd/pelv CT 03/11: mod b/l pleural effusions and assoc consolidations; tiny probably gallstones within the gallbladder; small to moderate hiatal hernia; R inguinal hernia which contains small loops of bowel, likely small bowel- no evidence of obstruction as oral contrast is noted within R colon. No definite free air, however evaluation for pneumoperitoneum is suboptimal. Moderate to severe constipation with questionable impaction. Prostate gland 4.1cm x 4.6cm. Urinary bladder appears unremarkable. Small amount of fluid within a right inguinal hernia. Sclerosis of right iliac wing. Extensive anasarca. Aneursmal dilatation of ascending thoracic aorta; Currently 4.5 cm. Patient needs repeat Ct imaging every 6 months (July 2016) BPH -Pyridium 200 mg PO TIDPC -Flomax 0.8 mg PO daily -Finasteride 5 mg PO daily -Urology Dr. Hughes on board Onychomycosis -patient had aseptic debridement of toenails x 10 -clotrimazole cream to be applied to feet b/l BID -podiatry consult- help appreciated Sacral decubitus-Resolved -04/19: exam revealed a previously healed decubitus ulcer of right buttocks. Sacral exam was clear. -Wound care following - recommending medihoney covered with bordered telfa dressing to right lower buttocks stage 2 pressure ulcer daily. -Pt is OOB to chair with help from PT daily -Order placed for turning patient Q2H Prophylactic Measure -Labs weekly -Lovenox 40mg SC daily -Pepcid 20mg PO BID -A and D ointment TOP Q*H -Colace 100mg PO BID -Patient is homeless. Used to stay with friend, but no longer welcome there. Goal is to walk with cane so he can go to a correction (will not qualify with a walker) Plan Discussed with Dr. Rosalie Amaya PGY1 <Jose Wiggins - Last Filed: 04/27/16 14:38> Objective - Vital Signs/Intake and Output Vital Signs (last 24 hours): Temp Pulse Resp BP Pulse Ox 98.3 F 80 20 108/70 96 04/27/16 08:31 04/27/16 08:31 04/27/16 08:31 04/27/16 08:31 04/27/16 08:31 Intake and Output: 04/27/16 04/27/16 06:59 18:59 Intake Total 340 540 Output Total 650 300 Balance -310 240 - Medications Medications: Current Medications Acetaminophen (Tylenol 325mg Tab) 650 mg PO Q6 [facility] Last Admin: 04/27/16 05:59 Dose: 650 mg Clotrimazole (Lotrimin 1%) 0 gm TOP BID [facility] Last Admin: 04/27/16 10:27 Dose: 1 units Docusate Sodium (Colace) 100 mg PO BID [facility] Last Admin: 04/27/16 10:25 Dose: 100 mg Enoxaparin Sodium (Lovenox) 40 mg SC DAILY [facility] Last Admin: 04/27/16 10:27 Dose: 40 mg Famotidine (Pepcid) 20 mg PO BID [facility] Last Admin: 04/27/16 10:25 Dose: 20 mg Finasteride (Proscar) 5 mg PO DAILY [facility] Last Admin: 04/27/16 10:32 Dose: 5 mg Oxycodone HCl (Oxycodone Immediate Release Tab) 5 mg PO Q8H PRN PRN Reason: Pain, severe (8-10) Last Admin: 04/23/16 18:26 Dose: 5 mg Phenazopyridine HCl (Pyridium) 200 mg PO TIDPC [facility] Last Admin: 04/27/16 10:25 Dose: 200 mg Tamsulosin HCl (Flomax) 0.8 mg PO DAILY [facility] Last Admin: 04/27/16 10:25 Dose: 0.8 mg Vitamin A (Vitamin A & D Oint Ud Foilpak) 1 ea TOP Q8H [facility] Last Admin: 04/27/16 10:29 Dose: 1 ea - Labs Labs: 04/23/16 13:49 04/23/16 13:49 Attending/Attestation - Attestation I have personally seen and examined this patient.: Yes I have fully participated in the care of the patient.: Yes I have reviewed all pertinent clinical information, including history, physical exam and plan: Yes Notes (Text): 04/27/16 14:37 Patient was seen and examined at bedside with the resident He complains of right hip pain Continue pain management and continue physical therapy daily Discussed the plan of care with the resident
[2016-04-27] MEDS: Clotrimazole 1% Cream 15 GM TUBE TOP SCH ×2 (10:27→18:08)
[2016-04-27] MEDS: Enoxaparin 40 mg Syringe SC SCH (10:27)
[2016-04-28] MEDS: Vitamins A & D Oint UD Foilpak TOP SCH ×3 (00:53→16:51)
[2016-04-28] MEDS: Enoxaparin 40 mg Syringe SC SCH (09:57)
[2016-04-28] MEDS: Clotrimazole 1% Cream 15 GM TUBE TOP SCH ×2 (09:58→17:45)
--- NOTE | 2016-04-28 11:28 | CP.PCM.PN ---
<Makayla Amaya - Last Filed: 04/28/16 21:23> Subjective - Date & Time of Evaluation Date of Evaluation: 04/28/16 Time of Evaluation: 08:00 - Subjective Subjective: PGY1 Medicine Note for Dr. Wiggins Patient seen and examined at bedside. Patient continues to complain of abdominal pain, diarrhea, and difficulty urinating. Patient denied any headache , dizziness, chest pain, palpitations, shortness of breath, nausea, vomiting. Patient has been encouraged to walk and eat. He has been nonweight bearing on his RLE. Objective - Vital Signs/Intake and Output Vital Signs (last 24 hours): Temp Pulse Resp BP Pulse Ox 97.5 F L 64 20 102/63 97 04/28/16 08:24 04/28/16 10:19 04/28/16 08:24 04/28/16 08:24 04/28/16 08:24 Intake and Output: 04/28/16 04/28/16 06:59 18:59 Intake Total 340 200 Output Total 550 Balance 340 -350 - Medications Medications: Current Medications Acetaminophen (Tylenol 325mg Tab) 650 mg PO Q6 [facility] Last Admin: 04/28/16 06:35 Dose: 650 mg Clotrimazole (Lotrimin 1%) 0 gm TOP BID [facility] Last Admin: 04/28/16 09:58 Dose: 1 units Docusate Sodium (Colace) 100 mg PO BID [facility] Last Admin: 04/28/16 09:50 Dose: Not Given Enoxaparin Sodium (Lovenox) 40 mg SC DAILY [facility] Last Admin: 04/28/16 09:57 Dose: 40 mg Famotidine (Pepcid) 20 mg PO BID [facility] Last Admin: 04/28/16 09:59 Dose: 20 mg Finasteride (Proscar) 5 mg PO DAILY [facility] Last Admin: 04/28/16 09:59 Dose: 5 mg Phenazopyridine HCl (Pyridium) 200 mg PO TIDPC [facility] Last Admin: 04/28/16 09:59 Dose: 200 mg Tamsulosin HCl (Flomax) 0.8 mg PO DAILY [facility] Last Admin: 04/28/16 09:58 Dose: 0.8 mg Vitamin A (Vitamin A & D Oint Ud Foilpak) 1 ea TOP Q8H [facility] Last Admin: 04/28/16 09:58 Dose: 1 ea - Labs Labs: 02/12/17 13:49 04/23/16 13:49 - Constitutional Appears: Non-toxic, No Acute Distress, Unkempt, Cachectic, Chronically Ill - Head Exam Head Exam: NORMAL INSPECTION - Eye Exam Eye Exam: Normal appearance - ENT Exam ENT Exam: Mucous Membranes Moist - Respiratory Exam Respiratory Exam: Clear to Ausculation Bilateral, NORMAL BREATHING PATTERN. absent: Accessory Muscle Use, Rales, Rhonchi, Wheezes, Respiratory Distress - Cardiovascular Exam Cardiovascular Exam: REGULAR RHYTHM, RRR, +S1, +S2 - GI/Abdominal Exam GI & Abdominal Exam: Soft, Tenderness (to palpation), Hernia (inguinal), Normal Bowel Sounds. absent: Firm, Guarding, Rigid, Mass - Extremities Exam Additional comments: R knee imobilizer in place - Neurological Exam Neurological Exam: Alert, Awake - Psychiatric Exam Psychiatric exam: Normal Affect, Normal Mood - Skin Skin Exam: Dry, Intact, Normal Color, Warm Assessment and Plan - Assessment and Plan (Free Text) Assessment: 71yo M with no PMHx admitted for generalized weakness, abdominal pain, and dysuria; now found to have R proximal tibial fracture Plan: Fracture of tibia, proximal, right, closed -Ortho Dr. Pino and Jayce West PA following- help appreciated -Impaction/insufficiency fracture, lateral aspect proximal tibia, non operative , treated with strict NWB and immobilization -At least 6 weeks old by imaging, likely now symptomatic due to increase to TTWB -Tylenol 650 mg PO Q6 PRN mild pain -Oxycodone 5mg q8 prn severe pain -Daily physical therapy and being walked by medical student daily -Nonweight bearing on R leg Gait Instability -Patient uses walker -Chronic RLE pain (since admission) due to slippage of mechanical hardware in his leg from prior procedure -R knee immobilizer in place and patient on strict NWB status -Xray 04/03: superior migration of prosthesis. sclerosi about right acetabulum -daily physical therapy Anemia -chronic -monitor with weekly labs Abdominal Pain -patient has been complaining of abdominal pain since admission -Inguinal hernia with unobstructed bowel loop involvement; protruded 2/7 due to straining on toilet. -Abdominal US 04/01: Gallstones, no acute cholecystitis, no hydronephrosis. trace ascites (see full report) -Abd/pelv CT 03/11: mod b/l pleural effusions and assoc consolidations; tiny probably gallstones within the gallbladder; small to moderate hiatal hernia; R inguinal hernia which contains small loops of bowel, likely small bowel- no evidence of obstruction as oral contrast is noted within R colon. No definite free air, however evaluation for pneumoperitoneum is suboptimal. Moderate to severe constipation with questionable impaction. Prostate gland 4.1cm x 4.6cm. Urinary bladder appears unremarkable. Small amount of fluid within a right inguinal hernia. Sclerosis of right iliac wing. Extensive anasarca. Aneursmal dilatation of ascending thoracic aorta; Currently 4.5 cm. Patient needs repeat Ct imaging every 6 months (July 2016) BPH -Pyridium 200 mg PO TIDPC -Flomax 0.8 mg PO daily -Finasteride 5 mg PO daily -Urology Dr. Hughes on board Onychomycosis -patient had aseptic debridement of toenails x 10 -clotrimazole cream to be applied to feet b/l BID -podiatry consult- help appreciated Sacral decubitus-Resolved -04/19: exam revealed a previously healed decubitus ulcer of right buttocks. Sacral exam was clear. -Wound care following - recommending medihoney covered with bordered telfa dressing to right lower buttocks stage 2 pressure ulcer daily. -Pt is OOB to chair with help from PT daily -Order placed for turning patient Q2H Prophylactic Measure -Labs weekly -Lovenox 40mg SC daily -Pepcid 20mg PO BID -A and D ointment TOP Q*H -Colace on hold secondary to patient's constant complains of diarrhea -Patient is homeless. Used to stay with friend, but no longer welcome there. Goal is to walk with cane so he can go to a longterm (will not qualify with a walker) Plan Discussed with Dr. Rosalie Amaya PGY1 <Jose Wiggins - Last Filed: 04/29/16 15:00> Objective - Vital Signs/Intake and Output Vital Signs (last 24 hours): Temp Pulse Resp BP Pulse Ox 97.9 F 83 20 101/58 L 95 04/29/16 08:18 04/29/16 08:18 04/29/16 08:18 04/29/16 08:18 04/29/16 08:18 Intake and Output: 04/29/16 04/29/16 06:59 18:59 Intake Total 450 Output Total 400 Balance 50 - Medications Medications: Current Medications Acetaminophen (Tylenol 325mg Tab) 650 mg PO Q6 [facility] Last Admin: 04/29/16 14:44 Dose: 650 mg Clotrimazole (Lotrimin 1%) 0 gm TOP BID [facility] Last Admin: 04/29/16 10:35 Dose: 1 applic Docusate Sodium (Colace) 100 mg PO BID [facility] Last Admin: 04/28/16 09:50 Dose: Not Given Enoxaparin Sodium (Lovenox) 40 mg SC DAILY [facility] Last Admin: 04/29/16 10:33 Dose: 40 mg Famotidine (Pepcid) 20 mg PO BID [facility] Last Admin: 04/29/16 10:33 Dose: 20 mg Finasteride (Proscar) 5 mg PO DAILY [facility] Last Admin: 04/29/16 14:44 Dose: 5 mg Phenazopyridine HCl (Pyridium) 200 mg PO TIDPC [facility] Last Admin: 04/29/16 14:45 Dose: 200 mg Tamsulosin HCl (Flomax) 0.8 mg PO DAILY [facility] Last Admin: 04/29/16 10:34 Dose: 0.8 mg Vitamin A (Vitamin A & D Oint Ud Foilpak) 1 ea TOP Q8H [facility] Last Admin: 04/29/16 10:35 Dose: 1 ea - Labs Labs: 04/23/16 13:49 04/23/16 13:49 Attending/Attestation - Attestation I have personally seen and examined this patient.: Yes I have fully participated in the care of the patient.: Yes I have reviewed all pertinent clinical information, including history, physical exam and plan: Yes Notes (Text): 04/29/16 15:00 Patient was seen and examined at bedside Still complains of right hip pain Continue physical therapy Continue pain management
[2016-04-29] MEDS: Vitamins A & D Oint UD Foilpak TOP SCH ×3 (02:00→17:45)
--- NOTE | 2016-04-29 03:53 | CP.PCM.PN ---
<Mike Guadalupe - Last Filed: 04/29/16 03:50> Subjective - Date & Time of Evaluation Date of Evaluation: 04/29/16 Time of Evaluation: 03:50 - Subjective Subjective: Internal Medicine Progress Note Dr. Wiggins Patient seen and examined at the bedside. No acute distress. No acute events overnight. Nursing staff reports no issues. Patient has continued complaints of abdominal pain, diarrhea, and difficulty urinating. Patient denies fever, chills, chest pain, SOB, abdominal pain, N/V, and extremity paresthesias. Objective - Vital Signs/Intake and Output Vital Signs (last 24 hours): Temp Pulse Resp BP Pulse Ox 98.1 F 86 20 100/65 95 04/29/16 02:00 04/29/16 02:00 04/29/16 02:00 04/29/16 02:00 04/29/16 02:00 Intake and Output: 04/28/16 04/29/16 18:59 06:59 Intake Total 560 300 Output Total 900 Balance -340 300 - Medications Medications: Current Medications Acetaminophen (Tylenol 325mg Tab) 650 mg PO Q6 [facility] Last Admin: 04/29/16 00:05 Dose: 650 mg Clotrimazole (Lotrimin 1%) 0 gm TOP BID [facility] Last Admin: 04/28/16 17:45 Dose: 1 applic Docusate Sodium (Colace) 100 mg PO BID [facility] Last Admin: 04/28/16 09:50 Dose: Not Given Enoxaparin Sodium (Lovenox) 40 mg SC DAILY [facility] Last Admin: 04/28/16 09:57 Dose: 40 mg Famotidine (Pepcid) 20 mg PO BID [facility] Last Admin: 04/28/16 17:43 Dose: 20 mg Finasteride (Proscar) 5 mg PO DAILY [facility] Last Admin: 04/28/16 09:59 Dose: 5 mg Phenazopyridine HCl (Pyridium) 200 mg PO TIDPC [facility] Last Admin: 04/28/16 17:43 Dose: 200 mg Tamsulosin HCl (Flomax) 0.8 mg PO DAILY [facility] Last Admin: 04/28/16 09:58 Dose: 0.8 mg Vitamin A (Vitamin A & D Oint Ud Foilpak) 1 ea TOP Q8H [facility] Last Admin: 04/29/16 02:00 Dose: 1 ea - Labs Labs: 02/12/17 13:49 04/23/16 13:49 - Constitutional Appears: Well - Head Exam Head Exam: ATRAUMATIC, NORMAL INSPECTION, NORMOCEPHALIC - Eye Exam Eye Exam: EOMI - ENT Exam ENT Exam: Mucous Membranes Moist - Neck Exam Neck Exam: Full ROM. absent: Tenderness - Respiratory Exam Respiratory Exam: Clear to Ausculation Bilateral, NORMAL BREATHING PATTERN. absent: Accessory Muscle Use, Rales, Rhonchi, Wheezes, Respiratory Distress, Stridor - Cardiovascular Exam Cardiovascular Exam: REGULAR RHYTHM, RRR, +S1, +S2. absent: Diastolic murmur, Murmur - GI/Abdominal Exam GI & Abdominal Exam: Soft, Tenderness, Hernia, Normal Bowel Sounds. absent: Firm, Guarding, Rigid - Extremities Exam Extremities Exam: absent: Pedal Edema Additional comments: knee immobilizer in place - Neurological Exam Neurological Exam: Alert, Awake - Skin Skin Exam: Dry, Intact, Normal Color, Warm Assessment and Plan - Assessment and Plan (Free Text) Plan: Fracture of tibia, proximal, right, closed -Ortho Dr. Pino and Jayce West PA following- no orthopedic intervention indicated at this time, strict NWB, PT/OT -Impaction/insufficiency fracture, lateral aspect proximal tibia, non operative , treated with strict NWB and immobilization -At least 6 weeks old by imaging -Tylenol 650 mg PO Q6 PRN mild pain -Oxycodone 5mg q8 prn severe pain -Daily physical therapy and being walked by medical student daily -Nonweight bearing on R leg Gait Instability -Patient uses walker -Chronic RLE pain (since admission) due to slippage of mechanical hardware in his leg from prior procedure -R knee immobilizer in place and patient on strict NWB status -Xray 04/03: superior migration of prosthesis. sclerosi about right acetabulum -daily physical therapy Anemia -chronic -monitor with weekly labs Abdominal Pain -patient has been complaining of abdominal pain since admission -Inguinal hernia with unobstructed bowel loop involvement; protruded 2/7 due to straining on toilet. -Abdominal US 04/01: Gallstones, no acute cholecystitis, no hydronephrosis. trace ascites (see full report) -Abd/pelv CT 03/11: mod b/l pleural effusions and assoc consolidations; tiny probably gallstones within the gallbladder; small to moderate hiatal hernia; R inguinal hernia which contains small loops of bowel, likely small bowel- no evidence of obstruction as oral contrast is noted within R colon. No definite free air, however evaluation for pneumoperitoneum is suboptimal. Moderate to severe constipation with questionable impaction. Prostate gland 4.1cm x 4.6cm. Urinary bladder appears unremarkable. Small amount of fluid within a right inguinal hernia. Sclerosis of right iliac wing. Extensive anasarca. Aneursmal dilatation of ascending thoracic aorta; Currently 4.5 cm. Patient needs repeat Ct imaging every 6 months (July 2016) BPH -Pyridium 200 mg PO TIDPC -Flomax 0.8 mg PO daily -Finasteride 5 mg PO daily -Urology Dr. Hughes on board Onychomycosis -patient had aseptic debridement of toenails x 10 -clotrimazole cream to be applied to feet b/l BID -podiatry consult- help appreciated Sacral decubitus-Resolved -04/19: exam revealed a previously healed decubitus ulcer of right buttocks. Sacral exam was clear. -Wound care following - recommending medihoney covered with bordered telfa dressing to right lower buttocks stage 2 pressure ulcer daily. -Pt is OOB to chair with help from PT daily -Order placed for turning patient Q2H Prophylactic Measure -Labs weekly -Lovenox 40mg SC daily -Pepcid 20mg PO BID -A and D ointment TOP Q*H -Colace on hold secondary to patient's constant complains of diarrhea -Patient is homeless. Used to stay with friend, but no longer welcome there. Goal is to walk with cane so he can go to a care home (will not qualify with a walker) <Jose Wiggins - Last Filed: 04/29/16 16:09> Objective - Vital Signs/Intake and Output Vital Signs (last 24 hours): Temp Pulse Resp BP Pulse Ox 97.9 F 83 20 101/58 L 95 04/29/16 08:18 04/29/16 08:18 04/29/16 08:18 04/29/16 08:18 04/29/16 08:18 Intake and Output: 04/29/16 04/29/16 06:59 18:59 Intake Total 450 Output Total 400 Balance 50 - Medications Medications: Current Medications Acetaminophen (Tylenol 325mg Tab) 650 mg PO Q6 [facility] Last Admin: 04/29/16 14:44 Dose: 650 mg Clotrimazole (Lotrimin 1%) 0 gm TOP BID [facility] Last Admin: 04/29/16 10:35 Dose: 1 applic Docusate Sodium (Colace) 100 mg PO BID [facility] Last Admin: 04/28/16 09:50 Dose: Not Given Enoxaparin Sodium (Lovenox) 40 mg SC DAILY [facility] Last Admin: 04/29/16 10:33 Dose: 40 mg Famotidine (Pepcid) 20 mg PO BID [facility] Last Admin: 04/29/16 10:33 Dose: 20 mg Finasteride (Proscar) 5 mg PO DAILY [facility] Last Admin: 04/29/16 14:44 Dose: 5 mg Phenazopyridine HCl (Pyridium) 200 mg PO TIDPC [facility] Last Admin: 04/29/16 14:45 Dose: 200 mg Tamsulosin HCl (Flomax) 0.8 mg PO DAILY [facility] Last Admin: 04/29/16 10:34 Dose: 0.8 mg Vitamin A (Vitamin A & D Oint Ud Foilpak) 1 ea TOP Q8H [facility] Last Admin: 04/29/16 10:35 Dose: 1 ea - Labs Labs: 04/23/16 13:49 04/23/16 13:49 Attending/Attestation - Attestation I have personally seen and examined this patient.: Yes I have fully participated in the care of the patient.: Yes I have reviewed all pertinent clinical information, including history, physical exam and plan: Yes Notes (Text): 04/29/16 16:08 Patient was seen and examined at bedside Patient complains of right leg pain Continue physical therapy and pain management
[2016-04-29] MEDS: Enoxaparin 40 mg Syringe SC SCH (10:33)
[2016-04-29] MEDS: Clotrimazole 1% Cream 15 GM TUBE TOP SCH ×2 (10:35→17:42)
[2016-04-30] MEDS: Vitamins A & D Oint UD Foilpak TOP SCH ×3 (00:50→17:45)
--- NOTE | 2016-04-30 02:42 | CP.PCM.PN ---
<Mike Guadalupe - Last Filed: 04/30/16 02:40> Subjective - Date & Time of Evaluation Date of Evaluation: 04/30/16 Time of Evaluation: 02:40 - Subjective Subjective: Internal Medicine Progress Note Dr. Wiggins Patient seen and examined at the bedside. No acute distress. No acute events overnight. Nursing staff reports no issues. Patient has continued complaints of abdominal pain, diarrhea, and difficulty urinating unchanged from prior examination. Patient denies fever, chills, chest pain, SOB, abdominal pain, N/V , and extremity paresthesias. Objective - Vital Signs/Intake and Output Vital Signs (last 24 hours): Temp Pulse Resp BP Pulse Ox 98.2 F 83 19 98/60 L 96 04/29/16 15:00 04/29/16 16:27 04/29/16 15:00 04/29/16 15:00 04/29/16 15:00 Intake and Output: 04/29/16 04/30/16 18:59 06:59 Intake Total 400 Balance 400 - Medications Medications: Current Medications Acetaminophen (Tylenol 325mg Tab) 650 mg PO Q6 [facility] Last Admin: 04/29/16 17:42 Dose: 650 mg Clotrimazole (Lotrimin 1%) 0 gm TOP BID [facility] Last Admin: 04/29/16 17:42 Dose: 1 applic Docusate Sodium (Colace) 100 mg PO BID [facility] Last Admin: 04/28/16 09:50 Dose: Not Given Enoxaparin Sodium (Lovenox) 40 mg SC DAILY [facility] Last Admin: 04/29/16 10:33 Dose: 40 mg Famotidine (Pepcid) 20 mg PO BID [facility] Last Admin: 04/29/16 17:41 Dose: 20 mg Finasteride (Proscar) 5 mg PO DAILY [facility] Last Admin: 04/29/16 14:44 Dose: 5 mg Phenazopyridine HCl (Pyridium) 200 mg PO TIDPC [facility] Last Admin: 04/29/16 17:41 Dose: 200 mg Tamsulosin HCl (Flomax) 0.8 mg PO DAILY [facility] Last Admin: 04/29/16 10:34 Dose: 0.8 mg Vitamin A (Vitamin A & D Oint Ud Foilpak) 1 ea TOP Q8H [facility] Last Admin: 04/29/16 17:45 Dose: 1 ea - Labs Labs: 04/23/16 13:49 04/23/16 13:49 - Additional Findings Additional findings: - Constitutional Appears: Well - Head Exam Head Exam: ATRAUMATIC, NORMAL INSPECTION, NORMOCEPHALIC - Eye Exam Eye Exam: EOMI - ENT Exam ENT Exam: Mucous Membranes Moist - Neck Exam Neck Exam: Full ROM. absent: Tenderness - Respiratory Exam Respiratory Exam: Clear to Ausculation Bilateral, NORMAL BREATHING PATTERN. absent: Accessory Muscle Use, Rales, Rhonchi, Wheezes, Respiratory Distress, Stridor - Cardiovascular Exam Cardiovascular Exam: REGULAR RHYTHM, RRR, +S1, +S2. absent: Diastolic murmur, Murmur - GI/Abdominal Exam GI & Abdominal Exam: Soft, Tenderness, Hernia, Normal Bowel Sounds. absent: Firm, Guarding, Rigid - Extremities Exam Extremities Exam: absent: Pedal Edema Additional comments: knee immobilizer in place - Neurological Exam Neurological Exam: Alert, Awake - Skin Skin Exam: Dry, Intact, Normal Color, Warm Assessment and Plan - Assessment and Plan (Free Text) Plan: Fracture of tibia, proximal, right, closed -Ortho Dr. Pino and Jayce West PA following- no orthopedic intervention indicated at this time, strict NWB, PT/OT -Impaction/insufficiency fracture, lateral aspect proximal tibia, non operative , treated with strict NWB and immobilization -At least 6 weeks old by imaging -Tylenol 650 mg PO Q6 PRN mild pain -Oxycodone 5mg q8 prn severe pain -Daily physical therapy and being walked by medical student daily -Nonweight bearing on R leg Gait Instability -Patient uses walker -Chronic RLE pain (since admission) due to slippage of mechanical hardware in his leg from prior procedure -R knee immobilizer in place and patient on strict NWB status -Xray 04/03: superior migration of prosthesis. sclerosi about right acetabulum -daily physical therapy Anemia -chronic -monitor with weekly labs Abdominal Pain -patient has been complaining of abdominal pain since admission -Inguinal hernia with unobstructed bowel loop involvement; protruded 2/7 due to straining on toilet. -Abdominal US 04/01: Gallstones, no acute cholecystitis, no hydronephrosis. trace ascites (see full report) -Abd/pelv CT 03/11: mod b/l pleural effusions and assoc consolidations; tiny probably gallstones within the gallbladder; small to moderate hiatal hernia; R inguinal hernia which contains small loops of bowel, likely small bowel- no evidence of obstruction as oral contrast is noted within R colon. No definite free air, however evaluation for pneumoperitoneum is suboptimal. Moderate to severe constipation with questionable impaction. Prostate gland 4.1cm x 4.6cm. Urinary bladder appears unremarkable. Small amount of fluid within a right inguinal hernia. Sclerosis of right iliac wing. Extensive anasarca. Aneursmal dilatation of ascending thoracic aorta; Currently 4.5 cm. Patient needs repeat Ct imaging every 6 months (July 2016) BPH -Pyridium 200 mg PO TIDPC -Flomax 0.8 mg PO daily -Finasteride 5 mg PO daily -Urology Dr. Hughes on board Onychomycosis -patient had aseptic debridement of toenails x 10 -clotrimazole cream to be applied to feet b/l BID -podiatry consult- help appreciated Sacral decubitus-Resolved -04/19: exam revealed a previously healed decubitus ulcer of right buttocks. Sacral exam was clear. -Wound care following - recommending medihoney covered with bordered telfa dressing to right lower buttocks stage 2 pressure ulcer daily. -Pt is OOB to chair with help from PT daily -Order placed for turning patient Q2H Prophylactic Measure -Labs weekly -Lovenox 40mg SC daily -Pepcid 20mg PO BID -A and D ointment TOP Q*H -Colace on hold secondary to patient's constant complains of diarrhea -Patient is homeless. Used to stay with friend, but no longer welcome there. Goal is to walk with cane so he can go to a detention (will not qualify with a walker) <Jose Wiggins - Last Filed: 04/30/16 14:09> Objective - Vital Signs/Intake and Output Vital Signs (last 24 hours): Temp Pulse Resp BP Pulse Ox 98.1 F 83 18 100/61 98 04/29/16 23:30 04/30/16 07:31 04/29/16 23:30 04/29/16 23:30 04/29/16 23:30 Intake and Output: 04/30/16 04/30/16 06:59 18:59 Intake Total 400 Balance 400 - Medications Medications: Current Medications Acetaminophen (Tylenol 325mg Tab) 650 mg PO Q6 [facility] Last Admin: 04/30/16 12:20 Dose: Not Given Clotrimazole (Lotrimin 1%) 0 gm TOP BID [facility] Last Admin: 04/30/16 10:28 Dose: 1 applic Docusate Sodium (Colace) 100 mg PO BID [facility] Last Admin: 04/28/16 09:50 Dose: Not Given Enoxaparin Sodium (Lovenox) 40 mg SC DAILY [facility] Last Admin: 04/30/16 10:30 Dose: 40 mg Famotidine (Pepcid) 20 mg PO BID [facility] Last Admin: 04/30/16 10:30 Dose: 20 mg Finasteride (Proscar) 5 mg PO DAILY [facility] Last Admin: 04/30/16 10:30 Dose: 5 mg Phenazopyridine HCl (Pyridium) 200 mg PO TIDPC [facility] Last Admin: 04/30/16 13:35 Dose: 200 mg Tamsulosin HCl (Flomax) 0.8 mg PO DAILY [facility] Last Admin: 04/30/16 10:05 Dose: 0.8 mg Vitamin A (Vitamin A & D Oint Ud Foilpak) 1 ea TOP Q8H [facility] Last Admin: 04/30/16 09:50 Dose: 1 ea - Labs Labs: 04/23/16 13:49 04/23/16 13:49 Attending/Attestation - Attestation I have personally seen and examined this patient.: Yes I have fully participated in the care of the patient.: Yes I have reviewed all pertinent clinical information, including history, physical exam and plan: Yes Notes (Text): 04/30/16 14:08 Patient was seen and examined at bedside Continues to complain of for right hip pain Continue physical therapy and with the nonweightbearing status on the right lower extremity as per the recommendations of orthopedics Continue pain medication for optimal pain control Discharge planning when the patient is physically stronger
[2016-04-30] MEDS: Clotrimazole 1% Cream 15 GM TUBE TOP SCH ×2 (10:28→18:00)
[2016-04-30] MEDS: Enoxaparin 40 mg Syringe SC SCH (10:30)
[2016-05-01] MEDS: Vitamins A & D Oint UD Foilpak TOP SCH ×3 (02:19→18:07)
--- NOTE | 2016-05-01 07:46 | CP.PCM.PN ---
<Makayla Amaya - Last Filed: 05/01/16 13:25> Subjective - Date & Time of Evaluation Date of Evaluation: 05/01/16 Time of Evaluation: 07:30 - Subjective Subjective: PGY1 Medicine Note for Dr. Cantu Patient seen and examined at the bedside. Patient was in no acute distress and had no acute events overnight. Patient continues to complain of abdominal pain, diarrhea, and difficulty urinating unchanged from prior examination. Nursing staff reports patient has not been having diarrhea. Patient denies fever, chills , headaches, dizziness, chest pain, SOB, abdominal pain, N/V, and extremity paresthesias. Patient has been walking with PT and has been encouraged to increase PO intake. Objective - Vital Signs/Intake and Output Vital Signs (last 24 hours): Temp Pulse Resp BP Pulse Ox 98.1 F 84 20 104/64 95 05/01/16 00:16 05/01/16 01:59 05/01/16 00:16 05/01/16 00:16 05/01/16 00:16 Intake and Output: 05/01/16 05/01/16 06:59 18:59 Intake Total 400 360 Balance 400 360 - Medications Medications: Current Medications Acetaminophen (Tylenol 325mg Tab) 650 mg PO Q6 [facility] Last Admin: 05/01/16 00:31 Dose: 650 mg Clotrimazole (Lotrimin 1%) 0 gm TOP BID [facility] Last Admin: 04/30/16 18:00 Dose: 1 applic Docusate Sodium (Colace) 100 mg PO BID [facility] Last Admin: 04/28/16 09:50 Dose: Not Given Enoxaparin Sodium (Lovenox) 40 mg SC DAILY [facility] Last Admin: 04/30/16 10:30 Dose: 40 mg Famotidine (Pepcid) 20 mg PO BID [facility] Last Admin: 04/30/16 18:26 Dose: 20 mg Finasteride (Proscar) 5 mg PO DAILY [facility] Last Admin: 04/30/16 10:30 Dose: 5 mg Phenazopyridine HCl (Pyridium) 200 mg PO TIDPC [facility] Last Admin: 04/30/16 18:23 Dose: 200 mg Tamsulosin HCl (Flomax) 0.8 mg PO DAILY [facility] Last Admin: 04/30/16 10:05 Dose: 0.8 mg Vitamin A (Vitamin A & D Oint Ud Foilpak) 1 ea TOP Q8H [facility] Last Admin: 05/01/16 02:19 Dose: Not Given - Labs Labs: 04/23/16 13:49 04/23/16 13:49 - Constitutional Appears: Non-toxic, No Acute Distress, Unkempt, Cachectic, Chronically Ill - Head Exam Head Exam: ATRAUMATIC, NORMAL INSPECTION, NORMOCEPHALIC - Eye Exam Eye Exam: Normal appearance. absent: Conjunctival injection, Scleral icterus - ENT Exam ENT Exam: Mucous Membranes Moist - Neck Exam Neck Exam: Normal Inspection - Respiratory Exam Respiratory Exam: Clear to Ausculation Bilateral, NORMAL BREATHING PATTERN. absent: Accessory Muscle Use, Rales, Rhonchi, Wheezes, Respiratory Distress - Cardiovascular Exam Cardiovascular Exam: REGULAR RHYTHM, RRR, +S1, +S2 - GI/Abdominal Exam GI & Abdominal Exam: Soft, Tenderness (to palpation), Hernia (inguinal), Normal Bowel Sounds. absent: Distended, Firm, Guarding, Rigid - Extremities Exam Extremities Exam: Tenderness (RLE). absent: Pedal Edema Additional comments: R knee imobilizer in place - Back Exam Back Exam: absent: rash noted - Neurological Exam Neurological Exam: Alert, Awake, Oriented x3 - Psychiatric Exam Psychiatric exam: Normal Affect, Normal Mood - Skin Skin Exam: Dry, Intact, Normal Color, Warm Assessment and Plan - Assessment and Plan (Free Text) Assessment: 71yo M with no PMHx admitted for generalized weakness, abdominal pain, and dysuria; now found to have R proximal tibial fracture Plan: Fracture of tibia, proximal, right, closed -Ortho Dr. Pino and Jayce West [place] following- no orthopedic intervention indicated at this time, strict NWB, PT/OT -Impaction/insufficiency fracture, lateral aspect proximal tibia, non operative , treated with strict NWB and immobilization -At least 6 weeks old by imaging -Tylenol 650 mg PO Q6 PRN mild pain -Oxycodone 5mg q8 prn severe pain -Daily physical therapy and being walked by medical student daily -Nonweight bearing on R leg Gait Instability -Patient uses walker -Chronic RLE pain (since admission) due to slippage of mechanical hardware in his leg from prior procedure -R knee immobilizer in place and patient on strict NWB status -Xray 04/03: superior migration of prosthesis. sclerosi about right acetabulum -daily physical therapy Anemia -chronic -monitor with weekly labs Abdominal Pain -patient has been complaining of abdominal pain since admission -Inguinal hernia with unobstructed bowel loop involvement; protruded 2/ due to straining on toilet. -Abdominal US 04/01: Gallstones, no acute cholecystitis, no hydronephrosis. trace ascites (see full report) -Abd/pelv CT 03/11: mod b/l pleural effusions and assoc consolidations; tiny probably gallstones within the gallbladder; small to moderate hiatal hernia; R inguinal hernia which contains small loops of bowel, likely small bowel- no evidence of obstruction as oral contrast is noted within R colon. No definite free air, however evaluation for pneumoperitoneum is suboptimal. Moderate to severe constipation with questionable impaction. Prostate gland 4.1cm x 4.6cm. Urinary bladder appears unremarkable. Small amount of fluid within a right inguinal hernia. Sclerosis of right iliac wing. Extensive anasarca. Aneursmal dilatation of ascending thoracic aorta; Currently 4.5 cm. Patient needs repeat Ct imaging every 6 months (July 2016) BPH -Pyridium 200 mg PO TIDPC -Flomax 0.8 mg PO daily -Finasteride 5 mg PO daily -Urology Dr. Hughes on board Onychomycosis -patient had aseptic debridement of toenails x 10 -clotrimazole cream to be applied to feet b/l BID -podiatry consult- help appreciated Sacral decubitus-Resolved -04/19: exam revealed a previously healed decubitus ulcer of right buttocks. Sacral exam was clear. -Wound care following - recommending medihoney covered with bordered telfa dressing to right lower buttocks stage 2 pressure ulcer daily. -Pt is OOB to chair with help from PT daily -Order placed for turning patient Q2H Prophylactic Measure -Labs weekly -Lovenox 40mg SC daily -Pepcid 20mg PO BID -A and D ointment TOP Q*H -Colace on hold secondary to patient's constant complains of diarrhea -Patient is homeless. Used to stay with friend, but no longer welcome there. Goal is to walk with cane so he can go to a [place] [facility] [place] (will not qualify with a walker) Plan discussed with Dr. Alondra Amaya PGY1 <Parker Cantu - Last Filed: 05/22/16 15:46> Objective - Vital Signs/Intake and Output Vital Signs (last 24 hours): Temp Pulse Resp BP Pulse Ox 98.3 F 70 20 125/74 96 05/22/16 08:11 05/22/16 12:28 05/22/16 08:11 05/22/16 08:11 05/22/16 08:11 Intake and Output: 05/22/16 05/22/16 06:59 18:59 Intake Total 2100 450 Output Total 1450 Balance 650 450 - Medications Medications: Current Medications Acetaminophen (Tylenol 325mg Tab) 650 mg PO Q6 [facility] Last Admin: 05/22/16 11:32 Dose: 650 mg Clotrimazole (Lotrimin 1%) 0 gm TOP BID [facility] Last Admin: 05/22/16 10:05 Dose: 1 applic Docusate Sodium (Colace) 100 mg PO BID [facility] Last Admin: 05/22/16 10:03 Dose: 100 mg Enoxaparin Sodium (Lovenox) 40 mg SC DAILY [facility] Last Admin: 05/22/16 10:04 Dose: 40 mg Famotidine (Pepcid) 20 mg PO BID [facility] Last Admin: 05/22/16 10:04 Dose: 20 mg Finasteride (Proscar) 5 mg PO DAILY [facility] Last Admin: 05/22/16 09:55 Dose: 5 mg Sodium Chloride (Sodium Chloride 0.9%) 1,000 mls @ 100 mls/hr IV .Q10H [facility] Last Admin: 05/22/16 07:00 Dose: Not Given Magnesium Oxide (Mag-Ox) 400 mg PO BID [facility] Last Admin: 05/22/16 09:55 Dose: 400 mg Sodium Chloride (Sodium Chloride Tab) 1 gm PO DAILY@1330 [facility] Last Admin: 05/21/16 12:50 Dose: 1 gm Tamsulosin HCl (Flomax) 0.8 mg PO DAILY [facility] Last Admin: 05/22/16 10:03 Dose: 0.8 mg Tramadol HCl (Ultram) 25 mg PO TID PRN PRN Reason: Pain, moderate (4-7) Last Admin: 05/20/16 08:41 Dose: 25 mg Vitamin A (Vitamin A & D Oint Ud Foilpak) 1 ea TOP Q8H [facility] Last Admin: 05/22/16 10:04 Dose: 1 ea - Labs Labs: 05/22/16 14:19 05/22/16 07:55 Attending/Attestation - Attestation I have personally seen and examined this patient.: Yes I have fully participated in the care of the patient.: Yes I have reviewed all pertinent clinical information, including history, physical exam and plan: Yes Notes (Text): Patient seen and examined with the resident. Agree with the resident's evaluation, assessment and plan. 71yo M with no PMHx admitted for generalized weakness, abdominal pain, and dysuria; now found to have R proximal tibial fracture Plan: Fracture of tibia, proximal, right, closed -Ortho Dr. Pino and Jayce West [place] following- no orthopedic intervention indicated at this time, strict NWB, PT/OT -Impaction/insufficiency fracture, lateral aspect proximal tibia, non operative , treated with strict NWB and immobilization -At least 6 weeks old by imaging -Tylenol 650 mg PO Q6 PRN mild pain -Oxycodone 5mg q8 prn severe pain -Daily physical therapy and being walked by medical student daily -Nonweight bearing on R leg Gait Instability -Patient uses walker -Chronic RLE pain (since admission) due to slippage of mechanical hardware in his leg from prior procedure -R knee immobilizer in place and patient on strict NWB status -Xray 04/03: superior migration of prosthesis. sclerosi about right acetabulum -daily physical therapy
[2016-05-01 08:35] LABS: BASO # 0.2 K/uL (0.0-0.2); BASO % 2.9 % (0.0-2.0); EOS # 0.1 K/uL (0.0-0.7); EOS % 2.4 % (0.0-4.0); HEMOGLOBIN 11.3 g/dL (12.0-18.0); LYMPH # 1.5 K/uL (1.0-4.3); LYMPH % 26.5 % (20.0-40.0); MEAN CELL VOLUME 94.9 fL (80.0-94.0); MEAN CORPUSCULAR HEMOGLOBIN 32.2 pg (27.0-31.0); MEAN CORPUSCULAR HGB CONC 33.9 g/dL (33.0-37.0); MEAN PLATELET VOLUME 7.7 fL (7.2-11.7); MONO # 0.5 K/uL (0.0-0.8); MONO % 9.1 % (0.0-10.0); NEUT # 3.2 K/uL (1.8-7.0); NEUT % 59.1 % (50.0-75.0); RBC 3.51 Mil/uL (4.40-5.90); WHITE BLOOD COUNT 5.5 K/uL (4.8-10.8)
[2016-05-01 08:44] LABS: ALBUMIN 3.7 g/dL (3.5-5.0)
[2016-05-01 08:46] LABS: GFR AFRICAN-AMERICAN > 60; GFR NON-AFRICAN AMERICAN > 60
[2016-05-01 08:47] LABS: ALT/SGPT 23 U/L (21-72); AST/SGOT 20 U/L (17-59); BLOOD UREA NITROGEN 16 mg/dL (9-20)
[2016-05-01 08:48] LABS: MAGNESIUM 1.5 mg/dL (1.6-2.3)
--- NOTE | 2016-05-01 11:16 | CP.PCM.PN ---
Subjective - Date & Time of Evaluation Date of Evaluation: 05/01/16 Time of Evaluation: 11:13 - Subjective Subjective: Patient sleeping. When awakened, complains of pain in knee and hip. Objective - Vital Signs/Intake and Output Vital Signs (last 24 hours): Temp Pulse Resp BP Pulse Ox 98.7 F 78 20 103/67 97 05/01/16 08:32 05/01/16 08:32 05/01/16 08:32 05/01/16 08:32 05/01/16 08:32 Intake and Output: 05/01/16 05/01/16 06:59 18:59 Intake Total 400 360 Balance 400 360 - Medications Medications: Current Medications Acetaminophen (Tylenol 325mg Tab) 650 mg PO Q6 [facility] Last Admin: 05/01/16 00:31 Dose: 650 mg Clotrimazole (Lotrimin 1%) 0 gm TOP BID [facility] Last Admin: 04/30/16 18:00 Dose: 1 applic Docusate Sodium (Colace) 100 mg PO BID [facility] Last Admin: 04/28/16 09:50 Dose: Not Given Enoxaparin Sodium (Lovenox) 40 mg SC DAILY [facility] Last Admin: 04/30/16 10:30 Dose: 40 mg Famotidine (Pepcid) 20 mg PO BID [facility] Last Admin: 04/30/16 18:26 Dose: 20 mg Finasteride (Proscar) 5 mg PO DAILY [facility] Last Admin: 04/30/16 10:30 Dose: 5 mg Phenazopyridine HCl (Pyridium) 200 mg PO TIDPC [facility] Last Admin: 05/01/16 08:51 Dose: 200 mg Tamsulosin HCl (Flomax) 0.8 mg PO DAILY [facility] Last Admin: 04/30/16 10:05 Dose: 0.8 mg Vitamin A (Vitamin A & D Oint Ud Foilpak) 1 ea TOP Q8H [facility] Last Admin: 05/01/16 08:49 Dose: 1 ea - Labs Labs: 05/01/16 08:22 05/01/16 08:22 - Constitutional Appears: No Acute Distress - Extremities Exam Additional comments: +DP/PT pulses calves soft NT neg homans bilaterally sensation intact RLE - Neurological Exam Neurological Exam: Alert, Awake Additional comments: +ROM ankle/toes RLE. Knee immobilizer adjusted. 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 Pino, agrees with above Status: Chronic Review of Systems - Review of Systems Constitutional: no symptoms reported Respiratory: No Resp. distress Cardiology: no symptoms reported Gastrointestinal/Abdominal: no symptoms reported Genitourinary: no symptoms reported Musculoskeletal: see HPI Skin: no symptoms reported Neurological: no symptoms reported
[2016-05-01] MEDS: Enoxaparin 40 mg Syringe SC SCH (11:31)
[2016-05-01] MEDS: Clotrimazole 1% Cream 15 GM TUBE TOP SCH ×2 (11:55→18:07)
[2016-05-02] MEDS: Vitamins A & D Oint UD Foilpak TOP SCH ×3 (01:35→17:48)
--- NOTE | 2016-05-02 07:30 | CP.PCM.PN ---
<Kel Amayaima - Last Filed: 05/02/16 16:00> Subjective - Date & Time of Evaluation Date of Evaluation: 05/02/16 Time of Evaluation: 10:30 - Subjective Subjective: PGY1 Medicine note for Dr. Cantu Patient seen and examined at bedside. Patient had no acute events overnight and was complaining of abdominal pain, diarrhea, urinary hesitancy, and RLE pain when I saw him earlier in the morning. However, after walking with physical therapy later that morning, patient had to use the bathroom and while straining during his BM he had a vasovagal episode. A QUILL REAMER was called which was then cancelled. Patient reported feeling better and was AO x 3 after episode. He did complain of some dizziness which resolved. When I examined the patient later in the afternoon he was complaining of constipation and straining. Patient encouraged to eat and to walk around with physical therapy and to sit in the chair beside his bed during most of the day. Objective - Vital Signs/Intake and Output Vital Signs (last 24 hours): Temp Pulse Resp BP Pulse Ox 98.1 F 80 20 101/63 96 05/01/16 23:50 05/01/16 23:50 05/01/16 23:50 05/01/16 23:50 05/01/16 23:50 Intake and Output: 05/02/16 05/02/16 06:59 18:59 Intake Total 800 Output Total 450 Balance 350 - Medications Medications: Current Medications Acetaminophen (Tylenol 325mg Tab) 650 mg PO Q6 [facility] Last Admin: 05/02/16 06:24 Dose: 650 mg Clotrimazole (Lotrimin 1%) 0 gm TOP BID [facility] Last Admin: 05/01/16 18:07 Dose: 1 applic Docusate Sodium (Colace) 100 mg PO BID [facility] Last Admin: 04/28/16 09:50 Dose: Not Given Docusate Sodium (Colace) 100 mg PO BID [facility] Last Admin: 05/01/16 18:08 Dose: 100 mg Enoxaparin Sodium (Lovenox) 40 mg SC DAILY [facility] Last Admin: 05/01/16 11:31 Dose: 40 mg Famotidine (Pepcid) 20 mg PO BID [facility] Last Admin: 05/01/16 18:08 Dose: 20 mg Finasteride (Proscar) 5 mg PO DAILY [facility] Last Admin: 05/01/16 11:32 Dose: 5 mg Phenazopyridine HCl (Pyridium) 200 mg PO TIDPC [facility] Last Admin: 05/01/16 18:08 Dose: 200 mg Tamsulosin HCl (Flomax) 0.8 mg PO DAILY [facility] Last Admin: 05/01/16 11:31 Dose: 0.8 mg Vitamin A (Vitamin A & D Oint Ud Foilpak) 1 ea TOP Q8H [facility] Last Admin: 05/02/16 01:35 Dose: 1 ea - Labs Labs: 05/01/16 08:22 05/01/16 08:22 - Constitutional Appears: Non-toxic, No Acute Distress, Cachectic, Chronically Ill - Head Exam Head Exam: NORMAL INSPECTION - Eye Exam Eye Exam: Normal appearance. absent: Conjunctival injection, Scleral icterus - ENT Exam ENT Exam: Mucous Membranes Moist - Respiratory Exam Respiratory Exam: Clear to Ausculation Bilateral, NORMAL BREATHING PATTERN. absent: Accessory Muscle Use, Rales, Rhonchi, Wheezes, Respiratory Distress - Cardiovascular Exam Cardiovascular Exam: REGULAR RHYTHM, RRR, +S1, +S2 - GI/Abdominal Exam GI & Abdominal Exam: Soft, Tenderness (diffuse to palpation- unchanged from prior encounter), Hernia (inguinal), Normal Bowel Sounds. absent: Distended, Firm, Guarding, Rigid - Extremities Exam Extremities Exam: Tenderness (RLE). absent: Pedal Edema Additional comments: RLE imobilizer in place - Neurological Exam Neurological Exam: Alert, Awake - Psychiatric Exam Psychiatric exam: Normal Affect, Normal Mood - Skin Skin Exam: Dry, Intact, Normal Color, Warm Assessment and Plan - Assessment and Plan (Free Text) Assessment: 71yo M with no PMHx admitted for generalized weakness, abdominal pain, and dysuria; now found to have R proximal tibial fracture Plan: Fracture of tibia, proximal, right, closed -Ortho Dr. Pino and Jayce West [place] following- no orthopedic intervention indicated at this time, strict NWB, PT/OT -Impaction/insufficiency fracture, lateral aspect proximal tibia, non operative , treated with strict NWB and immobilization -At least 6 weeks old by imaging -Tylenol 650 mg PO Q6 PRN mild pain -Oxycodone 5mg q8 prn severe pain -Daily physical therapy and being walked by medical student daily -Nonweight bearing on R leg -L knee x-ray: severe osteopenia. Sclerotic changes about the posterior proximal tibia may relate to a sclerotic healing response of a prior stress fracture here. no tibial plateau depressed fracture. The sclerosis is perceived on the prior 04/21 study; no interval pathology appreciated between 2 exams. If symptosm worsen consider MRI. 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 sclerosi about right acetabulum -daily physical therapy Anemia -chronic -monitor with weekly labs Abdominal Pain -patient has been complaining of abdominal pain since admission -Colace 100mg PO BID -Miralax daily -Dulcolax every 3 days -Inguinal hernia with unobstructed bowel loop involvement; protruded 04/18 due to straining on toilet. -Abdominal US 04/01: Gallstones, no acute cholecystitis, no hydronephrosis. trace ascites (see full report) -Abd/pelv CT 03/11: mod b/l pleural effusions and assoc consolidations; tiny probably gallstones within the gallbladder; small to moderate hiatal hernia; R inguinal hernia which contains small loops of bowel, likely small bowel- no evidence of obstruction as oral contrast is noted within R colon. No definite free air, however evaluation for pneumoperitoneum is suboptimal. Moderate to severe constipation with questionable impaction. Prostate gland 4.1cm x 4.6cm. Urinary bladder appears unremarkable. Small amount of fluid within a right inguinal hernia. Sclerosis of right iliac wing. Extensive anasarca. Aneursmal dilatation of ascending thoracic aorta; Currently 4.5 cm. Patient needs repeat Ct imaging every 6 months (July 2016) BPH -Pyridium 200 mg PO TIDPC -Flomax 0.8 mg PO daily -Finasteride 5 mg PO daily -Urology Dr. Hughes on board Onychomycosis -patient had aseptic debridement of toenails x 10 -clotrimazole cream to be applied to feet b/l BID -podiatry consult- help appreciated Sacral decubitus-Resolved -04/19: exam revealed a previously healed decubitus ulcer of right buttocks. Sacral exam was clear. -Wound care following - recommending medihoney covered with bordered telfa dressing to right lower buttocks stage 2 pressure ulcer daily. -Pt is OOB to chair with help from PT daily -Order placed for turning patient Q2H Prophylactic Measure -Labs weekly -Lovenox 40mg SC daily -Pepcid 20mg PO BID -A and D ointment TOP Q*H -Colace on hold secondary to patient's constant complains of diarrhea -Patient is homeless. Used to stay with friend, but no longer welcome there. Goal is to walk with cane so he can go to a snf (will not qualify with a walker) Plan discussed with Dr. Alondra Amaya PGY1 <Parker Cantu - Last Filed: 05/30/16 11:47> Objective - Vital Signs/Intake and Output Vital Signs (last 24 hours): Temp Pulse Resp BP Pulse Ox 97.9 F 80 20 105/72 97 05/30/16 07:16 05/30/16 11:09 05/30/16 07:16 05/30/16 07:16 05/30/16 07:16 Intake and Output: 05/30/16 05/30/16 06:59 18:59 Intake Total 500 Output Total 900 Balance -400 - Medications Medications: Current Medications Acetaminophen (Tylenol 325mg Tab) 650 mg PO Q6 [facility] Last Admin: 05/30/16 06:11 Dose: 650 mg Clotrimazole (Lotrimin 1%) 0 gm TOP BID [facility] Last Admin: 05/29/16 17:23 Dose: 1 applic Docusate Sodium (Colace) 100 mg PO BID [facility] Last Admin: 05/30/16 09:27 Dose: 100 mg Enoxaparin Sodium (Lovenox) 40 mg SC DAILY [facility] Last Admin: 05/30/16 09:28 Dose: 40 mg Famotidine (Pepcid) 20 mg PO BID [facility] Last Admin: 05/30/16 09:29 Dose: 20 mg Ferric Sodium Gluconate Complex (Ferrlecit) 125 mg IVPB DAILY [facility] Stop: 05/30/16 14:01 Last Admin: 05/30/16 09:28 Dose: 125 mg Finasteride (Proscar) 5 mg PO DAILY [facility] Last Admin: 05/30/16 09:28 Dose: 5 mg Magnesium Oxide (Mag-Ox) 400 mg PO BID [facility] Last Admin: 05/30/16 09:27 Dose: 400 mg Sodium Chloride (Sodium Chloride Tab) 1 gm PO DAILY@1330 [facility] Last Admin: 05/29/16 14:56 Dose: Not Given Tamsulosin HCl (Flomax) 0.8 mg PO DAILY [facility] Last Admin: 05/30/16 09:27 Dose: 0.8 mg Tramadol HCl (Ultram) 25 mg PO TID PRN PRN Reason: Pain, moderate (4-7) Last Admin: 05/29/16 11:13 Dose: 25 mg Vitamin A (Vitamin A & D Oint Ud Foilpak) 1 ea TOP Q8H [facility] Last Admin: 05/30/16 02:00 Dose: Not Given - Labs Labs: 05/30/16 07:02 05/30/16 07:02 Attending/Attestation - Attestation I have personally seen and examined this patient.: Yes I have fully participated in the care of the patient.: Yes I have reviewed all pertinent clinical information, including history, physical exam and plan: Yes Notes (Text): Patient seen and examined with the resident. Agree with the residents evaluation, assessment and plan. 1. Brisa-rectal/ Brisa-anal fluid collection CT abdomen and pelvis revealed a 2x1cm area of low attenuation focus in the posterior perirectal region which could represent a small brisa-rectal/ brisa- anal fluid proteinaceous fluid collection or abscess Per surgical team, No indication for emergent surgical intervention IR consulted but there is no clear drainable fuid at this time will continue IV antibiotics- metronidazole 500mg q8h, zosyn 3.375g q6h Pain regimen changed to percocet 5/325 1 tab q4h blood cultures drawn, no growth 24hours will start sitz baths
[2016-05-02] MEDS: Enoxaparin 40 mg Syringe SC SCH (09:34)
[2016-05-02] MEDS: Clotrimazole 1% Cream 15 GM TUBE TOP SCH ×2 (09:35→17:49)
--- NOTE | 2016-05-02 10:29 | CP.PCM.PN ---
Subjective - Date & Time of Evaluation Date of Evaluation: 05/02/16 Time of Evaluation: 10:26 - Subjective Subjective: Patient complaining of knee/hip pain. Says he has pain behind knee today. Objective - Vital Signs/Intake and Output Vital Signs (last 24 hours): Temp Pulse Resp BP Pulse Ox 98.3 F 70 20 100/60 96 05/02/16 07:43 05/02/16 07:43 05/02/16 07:43 05/02/16 07:43 05/02/16 07:43 Intake and Output: 05/02/16 05/02/16 06:59 18:59 Intake Total 800 Output Total 450 Balance 350 - Medications Medications: Current Medications Acetaminophen (Tylenol 325mg Tab) 650 mg PO Q6 [facility] Last Admin: 05/02/16 06:24 Dose: 650 mg Clotrimazole (Lotrimin 1%) 0 gm TOP BID [facility] Last Admin: 05/02/16 09:35 Dose: 1 applic Docusate Sodium (Colace) 100 mg PO BID [facility] Last Admin: 04/28/16 09:50 Dose: Not Given Docusate Sodium (Colace) 100 mg PO BID [facility] Last Admin: 05/02/16 09:35 Dose: Not Given Enoxaparin Sodium (Lovenox) 40 mg SC DAILY [facility] Last Admin: 05/02/16 09:34 Dose: 40 mg Famotidine (Pepcid) 20 mg PO BID [facility] Last Admin: 05/02/16 09:35 Dose: 20 mg Finasteride (Proscar) 5 mg PO DAILY [facility] Last Admin: 05/02/16 09:35 Dose: 5 mg Phenazopyridine HCl (Pyridium) 200 mg PO TIDPC [facility] Last Admin: 05/02/16 09:35 Dose: 200 mg Tamsulosin HCl (Flomax) 0.8 mg PO DAILY [facility] Last Admin: 05/02/16 09:35 Dose: 0.8 mg Vitamin A (Vitamin A & D Oint Ud Foilpak) 1 ea TOP Q8H [facility] Last Admin: 05/02/16 09:36 Dose: 1 ea - Labs Labs: 05/01/16 08:22 05/01/16 08:22 - Constitutional Appears: No Acute Distress - Cardiovascular Exam Additional comments: no peripheral edema, no cords, calves soft NT neg homans - Extremities Exam Additional comments: Mild hip pain with exam sensation intact LLE +DP/PT pulses calves soft NT neg homans, no palpable cords - Neurological Exam Neurological Exam: Alert, Awake, Oriented x3 Additional comments: LLE: +ROM ankle/toes 5/5, minimal pain with hip flexion during dressing change/ brace adjustment - Psychiatric Exam Psychiatric exam: Depressed - Skin Skin Exam: Dry, Intact (knee immobilizer adjusted and padded. no erythema, no skin breakdown, indentations from brace apparent and padded, new demond applied), Normal Color, Warm Assessment and Plan (1) Acetabular protrusion Assessment & Plan: stable no ortho intervention planned PT for ambulation training walker Status: Acute (2) Fracture of tibia, proximal, right, closed Assessment & Plan: NWB knee immobilizer may removed for bathing PT/OT case d/w social work case manager, attempting to arrange return to family in [place] consider psych consult, as patient appears to be more depressed at this time d/w Dr. Pino, agrees with above Status: Chronic Review of Systems - Review of Systems Constitutional: no symptoms reported Respiratory: No Resp. distress Cardiology: no symptoms reported Gastrointestinal/Abdominal: no symptoms reported Genitourinary: no symptoms reported Musculoskeletal: see HPI Skin: no symptoms reported Neurological: no symptoms reported All Other Systems: Reviewed and Negative
[2016-05-02] MEDS ORDERED: Sodium Chloride 0.9% 500 ML IV ONE (11:00)
[2016-05-02] MEDS: Sodium Chloride 0.9% 1,000 ML IV SCH ×2 (11:30→21:52)
--- NOTE | 2016-05-02 12:46 | RAD ---
PROCEDURE: Right Knee Radiographs. HISTORY: f/u stress fracture, may remove knee immobilizer COMPARISON: 04/21/2016 FINDINGS: BONES: Cerclage wires transfix a old patellar fracture. Diffuse osteopenia limits optimal evaluation. Well corticated ossification borders the anterior tibial plateau - distal patellar tendon ossification and/or old osseous avulsion injury are consistent with this. There is increased sclerosis over portions of the mostly posterior tibial physeal scar - a stress sclerotic healing response to a nondisplaced stress fracture is 1 consideration. The osteopenia is severe ; no gross tibial plateau depression noted. Medial femoral tibial joint space narrowing is present. JOINTS: Patellofemoral and medial femoral tibial osteoarthrosis JOINT EFFUSION: None. OTHER FINDINGS: None. IMPRESSION: Severe osteopenia. The sclerotic changes about the posterior proximal tibia may relate to a sclerotic healing response of a prior stress fracture here. No tibial plateau depressed fracture. The sclerosis is perceived on the prior 04/21/2016 study ; no interval pathology appreciated between the 2 exams. If symptoms persist/warrant consider MRI. Postop changes ; osteoarthrosis patellofemoral and medial femoral tibial compartments.
[2016-05-02] MEDS: Bisacodyl 5mg EC Tab PO SCH (17:47)
[2016-05-02] MEDS: POLYETHYLENE GLYCOL 3350 17 GM/Dose PACKET PO SCH ×2 (21:52→21:57)
[2016-05-03] MEDS: Vitamins A & D Oint UD Foilpak TOP SCH ×3 (01:23→17:22)
[2016-05-03] MEDS: Sodium Chloride 0.9% 1,000 ML IV SCH ×5 (03:00→22:32)
[2016-05-03 08:13] LABS: SQUAMOUS EPITHIAL < 1 /hpf (0-5); URINE BACTERIA RARE (<OCC); URINE BILIRUBIN NEGATIVE (NEGATIVE); URINE BLOOD NEGATIVE (NEGATIVE); URINE CLARITY Clear (Clear); URINE COLOR Amber (YELLOW); URINE GLUCOSE (UA) NORMAL (Normal); URINE LEUKOCYTE ESTERASE NEG Leu/uL (Negative); URINE NITRATE POSITIVE (NEGATIVE); URINE PROTEIN NEGATIVE (NEGATIVE)
--- NOTE | 2016-05-03 09:30 | CP.PCM.PN ---
<Mike Guadalupe - Last Filed: 05/03/16 11:59> Subjective - Date & Time of Evaluation Date of Evaluation: 05/03/16 Time of Evaluation: 09:28 - Subjective Subjective: Internal Medicine Progress Note Dr. Cantu Patient seen and examined at the bedside. No acute distress. No acute events overnight. Nursing staff reports no issues. Patient has continued complaints of abdominal pain, difficulty urinating, and b/l foot pain unchanged from prior examination. Patient denies fever, chills, chest pain, SOB, abdominal pain, N/V , and extremity paresthesias. Objective - Vital Signs/Intake and Output Vital Signs (last 24 hours): Temp Pulse Resp BP Pulse Ox 98.3 F 74 20 118/71 96 05/03/16 08:01 05/03/16 08:01 05/03/16 08:01 05/03/16 08:01 05/03/16 08:01 Intake and Output: 05/03/16 05/03/16 06:59 18:59 Intake Total 2500 Output Total 1050 Balance 1450 - Medications Medications: Current Medications Acetaminophen (Tylenol 325mg Tab) 650 mg PO Q6 [facility] Last Admin: 05/03/16 06:37 Dose: 650 mg Bisacodyl (Dulcolax) 5 mg PO Q3D [facility] Last Admin: 05/02/16 17:47 Dose: 5 mg Clotrimazole (Lotrimin 1%) 0 gm TOP BID [facility] Last Admin: 05/02/16 17:49 Dose: 1 applic Docusate Sodium (Colace) 100 mg PO BID [facility] Last Admin: 05/02/16 17:44 Dose: 100 mg Enoxaparin Sodium (Lovenox) 40 mg SC DAILY [facility] Last Admin: 05/02/16 09:34 Dose: 40 mg Famotidine (Pepcid) 20 mg PO BID [facility] Last Admin: 05/02/16 17:43 Dose: 20 mg Finasteride (Proscar) 5 mg PO DAILY [facility] Last Admin: 05/02/16 09:35 Dose: 5 mg Sodium Chloride (Sodium Chloride 0.9%) 1,000 mls @ 125 mls/hr IV .Q8H [facility] Last Admin: 05/03/16 05:30 Dose: 125 mls/hr Phenazopyridine HCl (Pyridium) 200 mg PO TIDPC [facility] Last Admin: 05/02/16 17:48 Dose: 200 mg Polyethylene Glycol (Miralax) 17 gm PO DAILY [facility] Last Admin: 05/02/16 21:57 Dose: Not Given Tamsulosin HCl (Flomax) 0.8 mg PO DAILY [facility] Last Admin: 05/02/16 09:35 Dose: 0.8 mg Vitamin A (Vitamin A & D Oint Ud Foilpak) 1 ea TOP Q8H [facility] Last Admin: 05/03/16 01:23 Dose: 1 ea - Labs Labs: 05/01/16 08:22 05/01/16 08:22 - Constitutional Appears: Non-toxic, Chronically Ill - Head Exam Head Exam: ATRAUMATIC, NORMAL INSPECTION, NORMOCEPHALIC - Eye Exam Eye Exam: EOMI, Normal appearance - ENT Exam ENT Exam: Mucous Membranes Moist - Neck Exam Neck Exam: Full ROM, Normal Inspection. absent: Lymphadenopathy, Tenderness - Respiratory Exam Respiratory Exam: Clear to Ausculation Bilateral, NORMAL BREATHING PATTERN. absent: Accessory Muscle Use, Rales, Rhonchi, Wheezes, Respiratory Distress, Stridor - Cardiovascular Exam Cardiovascular Exam: REGULAR RHYTHM, RRR, +S1, +S2. absent: Diastolic murmur, Murmur - GI/Abdominal Exam GI & Abdominal Exam: Soft, Hernia (B/L reducible inguinal hernias ), Normal Bowel Sounds. absent: Distended, Firm, Guarding, Rigid, Tenderness, Rebound - Extremities Exam Extremities Exam: Normal Capillary Refill, Normal Inspection, Tenderness. absent: Joint Swelling Additional comments: right knee immobilizer in place - Neurological Exam Neurological Exam: Alert, Awake, CN II-XII Intact - Skin Skin Exam: Dry, Intact, Normal Color, Warm Assessment and Plan - Assessment and Plan (Free Text) Plan: Fracture of tibia, proximal, right, closed -Ortho Dr. Pino and Jayce West PA following- no orthopedic intervention indicated at this time, strict NWB, PT/OT -Impaction/insufficiency fracture, lateral aspect proximal tibia, non operative , treated with strict NWB and immobilization -At least 6 weeks old by imaging -Tylenol 650 mg PO Q6 PRN mild pain -Oxycodone 5mg q8 prn severe pain -Daily physical therapy -Nonweight bearing on R leg -L knee x-ray: severe osteopenia. Sclerotic changes about the posterior proximal tibia may relate to a sclerotic healing response of a prior stress fracture here. no tibial plateau depressed fracture. The sclerosis is perceived on the prior 04/21 study; no interval pathology appreciated between 2 exams. If symptosm worsen consider MRI. 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 Gait Instability -Patient uses walker- NWB at this time RLE -Chronic RLE pain (since admission) due to slippage of mechanical hardware in his leg from prior procedure -R knee immobilizer in place and patient on strict NWB status -Xray 04/03: superior migration of prosthesis. sclerosi about right acetabulum -daily physical therapy Anemia -chronic -monitor with weekly labs -Orthostatic vital signs ordered Abdominal Pain -patient has been complaining of abdominal pain since admission -Colace 100mg PO BID -Miralax daily -Dulcolax every 3 days -Inguinal hernia with unobstructed bowel loop involvement; protruded 04/18 due to straining on toilet. -05/03/16 B/L inguinal hernias reduced today without incidence -Abdominal US 04/01: Gallstones, no acute cholecystitis, no hydronephrosis. trace ascites (see full report) -Abd/pelv CT 03/11: mod b/l pleural effusions and assoc consolidations; tiny probably gallstones within the gallbladder; small to moderate hiatal hernia; R inguinal hernia which contains small loops of bowel, likely small bowel- no evidence of obstruction as oral contrast is noted within R colon. No definite free air, however evaluation for pneumoperitoneum is suboptimal. Moderate to severe constipation with questionable impaction. Prostate gland 4.1cm x 4.6cm. Urinary bladder appears unremarkable. Small amount of fluid within a right inguinal hernia. Sclerosis of right iliac wing. Extensive anasarca. Aneursmal dilatation of ascending thoracic aorta; Currently 4.5 cm. Patient needs repeat Ct imaging every 6 months (July 2016) BPH -Pyridium 200 mg PO TIDPC -Flomax 0.8 mg PO daily -Finasteride 5 mg PO daily -Urology Dr. Hughes on board Onychomycosis -patient had aseptic debridement of toenails x 10 -clotrimazole cream to be applied to feet b/l BID -podiatry consult- help appreciated Sacral decubitus-Resolved -04/19: exam revealed a previously healed decubitus ulcer of right buttocks. Sacral exam was clear. -Wound care following - recommending medihoney covered with bordered telfa dressing to right lower buttocks stage 2 pressure ulcer daily. -Pt is OOB to chair with help from PT daily -Order placed for turning patient Q2H Urinary Tract Infection -(+) Nitrates on UA -Urine culture ordered -Day 1- Rocephin 1g IV daily- start 05/03/16 Prophylactic Measure -Labs weekly -Lovenox 40mg SC daily -Pepcid 20mg PO BID -A and D ointment TOP Q*H -Colace on hold secondary to patient's constant complains of diarrhea -Patient is homeless. Used to stay with friend, but no longer welcome there. Goal is to walk with cane so he can go to a care home (will not qualify with a walker) Tod Guadalupe PGY1 [phone] <Parker Cantu - Last Filed: 06/02/16 15:40> Objective - Vital Signs/Intake and Output Vital Signs (last 24 hours): Temp Pulse Resp BP Pulse Ox 97.6 F 63 20 134/76 97 06/02/16 07:53 06/02/16 07:53 06/02/16 07:53 06/02/16 07:53 06/02/16 07:53 Intake and Output: 06/02/16 06/02/16 06:59 18:59 Intake Total 780 Output Total 1000 Balance -220 - Medications Medications: Current Medications Acetaminophen (Tylenol 325mg Tab) 650 mg PO Q6 [facility] Last Admin: 06/02/16 14:04 Dose: 650 mg Clotrimazole (Lotrimin 1%) 0 gm TOP BID [facility] Last Admin: 06/02/16 09:34 Dose: 1 applic Docusate Sodium (Colace) 100 mg PO BID [facility] Last Admin: 06/02/16 09:32 Dose: 100 mg Enoxaparin Sodium (Lovenox) 40 mg SC DAILY [facility] Last Admin: 06/02/16 09:32 Dose: 40 mg Famotidine (Pepcid) 20 mg PO BID [facility] Last Admin: 06/02/16 09:32 Dose: 20 mg Finasteride (Proscar) 5 mg PO DAILY [facility] Last Admin: 06/02/16 09:33 Dose: 5 mg Magnesium Oxide (Mag-Ox) 400 mg PO BID [facility] Last Admin: 06/02/16 09:33 Dose: 400 mg Polyethylene Glycol (Miralax) 17 gm PO Q2D [facility] Last Admin: 06/02/16 14:01 Dose: Not Given Sodium Chloride (Sodium Chloride Tab) 1 gm PO DAILY@1330 [facility] Last Admin: 06/02/16 14:05 Dose: 1 gm Tamsulosin HCl (Flomax) 0.8 mg PO DAILY [facility] Last Admin: 06/02/16 09:31 Dose: 0.8 mg Tramadol HCl (Ultram) 25 mg PO TID PRN PRN Reason: Pain, moderate (4-7) Last Admin: 05/29/16 11:13 Dose: 25 mg Vitamin A (Vitamin A & D Oint Ud Foilpak) 1 ea TOP Q8H [facility] Last Admin: 06/02/16 09:34 Dose: 1 ea - Labs Labs: 05/30/16 07:02 05/30/16 07:02 Attending/Attestation - Attestation I have personally seen and examined this patient.: Yes I have fully participated in the care of the patient.: Yes I have reviewed all pertinent clinical information, including history, physical exam and plan: Yes Notes (Text): Patient seen and examined with the resident. Agree with the residents evaluation, assessment and plan. Fracture of tibia, proximal, right, closed -Ortho Dr. Pino and Jayce West PA following- no orthopedic intervention indicated at this time, strict NWB, PT/OT -Impaction/insufficiency fracture, lateral aspect proximal tibia, non operative , treated with strict NWB and immobilization -At least 6 weeks old by imaging -Tylenol 650 mg PO Q6 PRN mild pain -Oxycodone 5mg q8 prn severe pain -Daily physical therapy -Nonweight bearing on R leg -L knee x-ray: severe osteopenia. Sclerotic changes about the posterior proximal tibia may relate to a sclerotic healing response of a prior stress fracture here. no tibial plateau depressed fracture. The sclerosis is perceived on the prior 04/21 study; no interval pathology appreciated between 2 exams. If symptosm worsen consider MRI. 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 Gait Instability -Patient uses walker- NWB at this time RLE -Chronic RLE pain (since admission) due to slippage of mechanical hardware in his leg from prior procedure -R knee immobilizer in place and patient on strict NWB status -Xray 04/03: superior migration of prosthesis. sclerosi about right acetabulum -daily physical therapy Anemia -chronic -monitor with weekly labs -Orthostatic vital signs ordered Abdominal Pain -patient has been complaining of abdominal pain since admission -Colace 100mg PO BID -Miralax daily -Dulcolax every 3 days -Inguinal hernia with unobstructed bowel loop involvement; protruded 04/18 due to straining on toilet. -05/03/16 B/L inguinal hernias reduced today without incidence -Abdominal US 04/01: Gallstones, no acute cholecystitis, no hydronephrosis. trace ascites (see full report) -Abd/pelv CT 03/11: mod b/l pleural effusions and assoc consolidations; tiny probably gallstones within the gallbladder; small to moderate hiatal hernia; R inguinal hernia which contains small loops of bowel, likely small bowel- no evidence of obstruction as oral contrast is noted within R colon. No definite free air, however evaluation for pneumoperitoneum is suboptimal. Moderate to severe constipation with questionable impaction. Prostate gland 4.1cm x 4.6cm. Urinary bladder appears unremarkable. Small amount of fluid within a right inguinal hernia. Sclerosis of right iliac wing. Extensive anasarca.
[2016-05-03] MEDS: Enoxaparin 40 mg Syringe SC SCH (10:46)
[2016-05-03] MEDS: POLYETHYLENE GLYCOL 3350 17 GM/Dose PACKET PO SCH ×2 (10:47→10:52)
[2016-05-03] MEDS: Clotrimazole 1% Cream 15 GM TUBE TOP SCH ×2 (10:49→17:23)
[2016-05-04] MEDS: Vitamins A & D Oint UD Foilpak TOP SCH ×3 (01:47→17:19)
[2016-05-04] MEDS: Sodium Chloride 0.9% 1,000 ML IV SCH ×4 (03:00→22:44)
--- NOTE | 2016-05-04 08:51 | CP.PCM.PN ---
<Mike Guadalupe - Last Filed: 05/04/16 14:36> Subjective - Date & Time of Evaluation Date of Evaluation: 05/04/16 Time of Evaluation: 08:45 - Subjective Subjective: Internal Medicine Progress Note Dr. Cantu Patient seen and examined at the bedside. No acute distress. No acute events overnight. Nursing staff reports no issues. Patient has continued complaints of abdominal pain, difficulty urinating, and b/l foot pain unchanged from prior examination. Patient denies fever, chills, chest pain, SOB, abdominal pain, N/V , and extremity paresthesias. Objective - Vital Signs/Intake and Output Vital Signs (last 24 hours): Temp Pulse Resp BP Pulse Ox 98.0 F 74 20 113/60 96 05/04/16 08:13 05/04/16 08:13 05/04/16 08:13 05/04/16 08:13 05/04/16 08:13 Intake and Output: 05/04/16 05/04/16 06:59 18:59 Intake Total 2550 Output Total 1050 Balance 1500 - Medications Medications: Current Medications Acetaminophen (Tylenol 325mg Tab) 650 mg PO Q6 [facility] Last Admin: 05/04/16 06:35 Dose: 650 mg Bisacodyl (Dulcolax) 5 mg PO Q3D [facility] Last Admin: 05/02/16 17:47 Dose: 5 mg Clotrimazole (Lotrimin 1%) 0 gm TOP BID [facility] Last Admin: 05/03/16 17:23 Dose: 1 applic Docusate Sodium (Colace) 100 mg PO BID [facility] Last Admin: 05/03/16 17:21 Dose: 100 mg Enoxaparin Sodium (Lovenox) 40 mg SC DAILY [facility] Last Admin: 05/03/16 10:46 Dose: 40 mg Famotidine (Pepcid) 20 mg PO BID [facility] Last Admin: 05/03/16 17:21 Dose: 20 mg Finasteride (Proscar) 5 mg PO DAILY [facility] Last Admin: 05/03/16 10:48 Dose: 5 mg Sodium Chloride (Sodium Chloride 0.9%) 1,000 mls @ 125 mls/hr IV .Q8H [facility] Last Admin: 05/04/16 06:38 Dose: 125 mls/hr Ceftriaxone Sodium 1 gm/ (Sodium Chloride) 100 mls @ 100 mls/hr IVPB DAILY@ 1200 [facility] Last Admin: 05/03/16 14:27 Dose: 100 mls/hr Phenazopyridine HCl (Pyridium) 200 mg PO TIDPC [facility] Last Admin: 05/03/16 17:21 Dose: 200 mg Polyethylene Glycol (Miralax) 17 gm PO DAILY [facility] Last Admin: 05/03/16 10:52 Dose: Not Given Tamsulosin HCl (Flomax) 0.8 mg PO DAILY [facility] Last Admin: 05/03/16 10:46 Dose: 0.8 mg Vitamin A (Vitamin A & D Oint Ud Foilpak) 1 ea TOP Q8H [facility] Last Admin: 05/04/16 01:47 Dose: 1 ea - Labs Labs: 05/01/16 08:22 05/01/16 08:22 - Additional Findings Additional findings: - Constitutional Appears: Non-toxic, Chronically Ill - Head Exam Head Exam: ATRAUMATIC, NORMAL INSPECTION, NORMOCEPHALIC - Eye Exam Eye Exam: EOMI, Normal appearance - ENT Exam ENT Exam: Mucous Membranes Moist - Neck Exam Neck Exam: Full ROM, Normal Inspection. absent: Lymphadenopathy, Tenderness - Respiratory Exam Respiratory Exam: Clear to Ausculation Bilateral, NORMAL BREATHING PATTERN. absent: Accessory Muscle Use, Rales, Rhonchi, Wheezes, Respiratory Distress, Stridor - Cardiovascular Exam Cardiovascular Exam: REGULAR RHYTHM, RRR, +S1, +S2. absent: Diastolic murmur, Murmur - GI/Abdominal Exam GI & Abdominal Exam: Soft, Hernia (B/L reducible inguinal hernias ), Normal Bowel Sounds. absent: Distended, Firm, Guarding, Rigid, Tenderness, Rebound - Extremities Exam Extremities Exam: Normal Capillary Refill, Normal Inspection, Tenderness. absent: Joint Swelling Additional comments: right knee immobilizer in place - Neurological Exam Neurological Exam: Alert, Awake, CN II-XII Intact - Skin Skin Exam: Dry, Intact, Normal Color, Warm Assessment and Plan - Assessment and Plan (Free Text) Plan: Fracture of tibia, proximal, right, closed -Ortho Dr. Pino and Jayce West [place] following- no orthopedic intervention indicated at this time, strict NWB, PT/OT -Impaction/insufficiency fracture, lateral aspect proximal tibia, non operative , treated with strict NWB and immobilization -At least 6 weeks old by imaging -Tylenol 650 mg PO Q6 PRN mild pain -Oxycodone 5mg q8 prn severe pain -Daily physical therapy -Nonweight bearing on R leg -L knee x-ray: severe osteopenia. Sclerotic changes about the posterior proximal tibia may relate to a sclerotic healing response of a prior stress fracture here. no tibial plateau depressed fracture. The sclerosis is perceived on the prior 04/21 study; no interval pathology appreciated between 2 exams. If symptosm worsen consider MRI. 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 Gait Instability -Patient uses walker- NWB at this time RLE -Chronic RLE pain (since admission) due to slippage of mechanical hardware in his leg from prior procedure -R knee immobilizer in place and patient on strict NWB status -Xray 04/03: superior migration of prosthesis. sclerosi about right acetabulum -daily physical therapy Anemia -chronic -monitor with weekly labs -Orthostatic vital signs ordered Abdominal Pain -patient has been complaining of abdominal pain since admission -Colace 100mg PO BID -Miralax daily -Dulcolax every 3 days -Inguinal hernia with unobstructed bowel loop involvement; protruded 04/18 due to straining on toilet. -05/03/16 B/L inguinal hernias reduced today without incidence -Abdominal US 04/01: Gallstones, no acute cholecystitis, no hydronephrosis. trace ascites (see full report) -Abd/pelv CT 03/11: mod b/l pleural effusions and assoc consolidations; tiny probably gallstones within the gallbladder; small to moderate hiatal hernia; R inguinal hernia which contains small loops of bowel, likely small bowel- no evidence of obstruction as oral contrast is noted within R colon. No definite free air, however evaluation for pneumoperitoneum is suboptimal. Moderate to severe constipation with questionable impaction. Prostate gland 4.1cm x 4.6cm. Urinary bladder appears unremarkable. Small amount of fluid within a right inguinal hernia. Sclerosis of right iliac wing. Extensive anasarca. Aneursmal dilatation of ascending thoracic aorta; Currently 4.5 cm. Patient needs repeat Ct imaging every 6 months (July 2016) BPH -Pyridium 200 mg PO TIDPC -Flomax 0.8 mg PO daily -Finasteride 5 mg PO daily -Urology Dr. Hughes on board Onychomycosis -patient had aseptic debridement of toenails x 10 -clotrimazole cream to be applied to feet b/l BID -podiatry consult- help appreciated Sacral decubitus-Resolved -04/19: exam revealed a previously healed decubitus ulcer of right buttocks. Sacral exam was clear. -Wound care following - recommending medihoney covered with bordered telfa dressing to right lower buttocks stage 2 pressure ulcer daily. -Pt is OOB to chair with help from PT daily -Order placed for turning patient Q2H Urinary Tract Infection -(+) Nitrates on UA -Urine culture ordered -Day 2- Rocephin 1g IV daily- start 05/03/16 Prophylactic Measure -Labs weekly -Lovenox 40mg SC daily -Pepcid 20mg PO BID -A and D ointment TOP Q*H -Colace on hold secondary to patient's constant complains of diarrhea -Patient is homeless. Used to stay with friend, but no longer welcome there. Goal is to walk with cane so he can go to a care home (will not qualify with a walker) DISPO -Reaching out to family in [facility] -Social Work is following up Tod Guadalupe PGY1 [phone] <Parker Cantu - Last Filed: 06/09/16 14:56> Objective - Vital Signs/Intake and Output Vital Signs (last 24 hours): Temp Pulse Resp BP Pulse Ox 98.3 F 69 20 108/62 97 06/09/16 08:15 06/09/16 13:59 06/09/16 08:15 06/09/16 08:15 06/09/16 08:15 Intake and Output: 06/09/16 06/09/16 06:59 18:59 Intake Total 500 Balance 500 - Medications Medications: Current Medications Acetaminophen (Tylenol 325mg Tab) 650 mg PO Q6 [facility] Last Admin: 06/09/16 13:31 Dose: 650 mg Carbamide Peroxide (Debrox Ear Drops) 1 ml AU BID [facility] Last Admin: 06/09/16 09:30 Dose: 5 drop Clotrimazole (Lotrimin 1%) 0 gm TOP BID [facility] Last Admin: 06/09/16 09:30 Dose: 1 applic Docusate Sodium (Colace) 100 mg PO BID [facility] Last Admin: 03/31/17 09:29 Dose: 100 mg Enoxaparin Sodium (Lovenox) 40 mg SC DAILY [facility] Last Admin: 06/09/16 09:29 Dose: 40 mg Famotidine (Pepcid) 20 mg PO BID [facility] Last Admin: 06/09/16 09:29 Dose: 20 mg Magnesium Oxide (Mag-Ox) 400 mg PO BID [facility] Last Admin: 06/09/16 09:30 Dose: 400 mg Polyethylene Glycol (Miralax) 17 gm PO Q2D [facility] Last Admin: 06/08/16 13:34 Dose: Not Given Sodium Chloride (Sodium Chloride Tab) 1 gm PO DAILY@1330 [facility] Last Admin: 06/09/16 14:05 Dose: 1 gm Tamsulosin HCl (Flomax) 0.8 mg PO DAILY [facility] Last Admin: 06/09/16 09:29 Dose: 0.8 mg Tramadol HCl (Ultram) 25 mg PO TID PRN PRN Reason: Pain, moderate (4-7) Last Admin: 06/06/16 12:59 Dose: 25 mg - Labs Labs: 06/05/16 07:14 06/05/16 07:14 Attending/Attestation - Attestation I have personally seen and examined this patient.: Yes I have fully participated in the care of the patient.: Yes I have reviewed all pertinent clinical information, including history, physical exam and plan: Yes Notes (Text): Patient seen and examined with the resident. Agree with the residents evaluation, assessment and plan. Fracture of tibia, proximal, right, closed -Ortho Dr. Pino and Jayce West PA following- no orthopedic intervention indicated at this time, strict NWB, PT/OT -Impaction/insufficiency fracture, lateral aspect proximal tibia, non operative , treated with strict NWB and immobilization -At least 6 weeks old by imaging -Tylenol 650 mg PO Q6 PRN mild pain -Oxycodone 5mg q8 prn severe pain -Daily physical therapy -Nonweight bearing on R leg -L knee x-ray: severe osteopenia. Sclerotic changes about the posterior proximal tibia may relate to a sclerotic healing response of a prior stress fracture here. no tibial plateau depressed fracture. The sclerosis is perceived on the prior 04/21 study; no interval pathology appreciated between 2 exams. If symptosm worsen consider MRI. 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 Gait Instability -Patient uses walker- NWB at this time RLE -Chronic RLE pain (since admission) due to slippage of mechanical hardware in his leg from prior procedure -R knee immobilizer in place and patient on strict NWB status -Xray 04/03: superior migration of prosthesis. sclerosi about right acetabulum -daily physical therapy Anemia -chronic -monitor with weekly labs -Orthostatic vital signs ordered
[2016-05-04] MEDS: POLYETHYLENE GLYCOL 3350 17 GM/Dose PACKET PO SCH ×2 (11:01→11:10)
[2016-05-04] MEDS: Clotrimazole 1% Cream 15 GM TUBE TOP SCH ×2 (11:04→17:20)
[2016-05-04] MEDS: Enoxaparin 40 mg Syringe SC SCH (13:38)
[2016-05-04] MEDS ORDERED: Iodixanol 320 MG/ML 100 ML BOTTLE IV ONE (15:23)
--- NOTE | 2016-05-04 16:26 | CT ---
PROCEDURE: CT Chest with contrast (Pulmonary Angiogram) HISTORY: r/o pe COMPARISON: 03/20/2016 CT thorax. 01/14/2016 CT pulmonary angiogram negative for pulmonary embolism. TECHNIQUE: Axial computed tomography images were obtained of the chest in the pulmonary arterial phase of enhancement. Coronal and sagittal reformatted images were created and reviewed. Intravenous contrast dose: 100 cc Visipaque 320 Radiation dose: Total exam DLP = 406.77 mGy-cm. FINDINGS: PULMONARY ARTERIES: Unremarkable. No pulmonary embolism. AORTA: No acute findings. No thoracic aortic aneurysm. LUNGS: Unremarkable. No nodule, mass or pulmonary consolidation. PLEURAL SPACES: Trace pleural effusions and adjacent underlying atelectasis new findings compared to the prior study 03/20/2016. HEART: Unremarkable. No cardiomegaly. No significant pericardial effusion. LYMPH NODES: No lymphadenopathy. BONES, CHEST WALL: Stable kyphosis. No acute vertebral body abnormalities identified. Multilevel disc degenerative changes. No pre or paravertebral abnormalities identified. OTHER FINDINGS: Stable hiatal hernia. IMPRESSION: Unremarkable CT pulmonary angiogram. No pulmonary embolus. Additional benign and/or incidental findings described above.
[2016-05-05] MEDS: Vitamins A & D Oint UD Foilpak TOP SCH ×3 (01:30→18:10)
[2016-05-05] MEDS: Sodium Chloride 0.9% 1,000 ML IV SCH ×3 (03:12→15:59)
--- NOTE | 2016-05-05 09:30 | CP.PCM.PN ---
<Mike Guadalupe - Last Filed: 05/05/16 18:59> Subjective - Date & Time of Evaluation Date of Evaluation: 05/05/16 Time of Evaluation: 09:27 - Subjective Subjective: Internal Medicine Progress Note Dr. Cantu Patient seen and examined at the bedside. No acute distress. No acute events overnight. Nursing staff reports no issues. Patient has continued complaints of abdominal pain, difficulty urinating, and b/l foot pain unchanged from prior examination. Patient denies fever, chills, chest pain, SOB, abdominal pain, N/V , and extremity paresthesias. Clinically same, patient appears to be at his baseline. Objective - Vital Signs/Intake and Output Vital Signs (last 24 hours): Temp Pulse Resp BP Pulse Ox 98.6 F 76 20 135/78 96 05/05/16 08:04 05/05/16 08:04 05/05/16 08:04 05/05/16 08:04 05/05/16 08:04 Intake and Output: 05/05/16 05/05/16 06:59 18:59 Intake Total 1300 Output Total 700 Balance 600 - Medications Medications: Current Medications Acetaminophen (Tylenol 325mg Tab) 650 mg PO Q6 [facility] Last Admin: 05/05/16 06:42 Dose: 650 mg Bisacodyl (Dulcolax) 5 mg PO Q3D [facility] Last Admin: 05/02/16 17:47 Dose: 5 mg Clotrimazole (Lotrimin 1%) 0 gm TOP BID [facility] Last Admin: 05/04/16 17:20 Dose: 1 applic Docusate Sodium (Colace) 100 mg PO BID [facility] Last Admin: 05/04/16 17:17 Dose: 100 mg Enoxaparin Sodium (Lovenox) 40 mg SC DAILY [facility] Last Admin: 05/04/16 13:38 Dose: 40 mg Famotidine (Pepcid) 20 mg PO BID [facility] Last Admin: 05/04/16 17:17 Dose: 20 mg Finasteride (Proscar) 5 mg PO DAILY [facility] Last Admin: 05/04/16 11:02 Dose: 5 mg Sodium Chloride (Sodium Chloride 0.9%) 1,000 mls @ 125 mls/hr IV .Q8H [facility] Last Admin: 05/05/16 06:41 Dose: 125 mls/hr Ceftriaxone Sodium 1 gm/ (Sodium Chloride) 100 mls @ 100 mls/hr IVPB DAILY@ 1200 [facility] Last Admin: 05/04/16 11:05 Dose: 100 mls/hr Phenazopyridine HCl (Pyridium) 200 mg PO TIDPC [facility] Last Admin: 05/04/16 17:17 Dose: 200 mg Polyethylene Glycol (Miralax) 17 gm PO DAILY [facility] Last Admin: 05/04/16 11:10 Dose: Not Given Tamsulosin HCl (Flomax) 0.8 mg PO DAILY [facility] Last Admin: 05/04/16 10:59 Dose: 0.8 mg Vitamin A (Vitamin A & D Oint Ud Foilpak) 1 ea TOP Q8H [facility] Last Admin: 05/05/16 01:30 Dose: Not Given - Labs Labs: 05/01/16 08:22 05/01/16 08:22 - Additional Findings Additional findings: - Constitutional Appears: Non-toxic, Chronically Ill - Head Exam Head Exam: ATRAUMATIC, NORMAL INSPECTION, NORMOCEPHALIC - Eye Exam Eye Exam: EOMI, Normal appearance - ENT Exam ENT Exam: Mucous Membranes Moist - Neck Exam Neck Exam: Full ROM, Normal Inspection. absent: Lymphadenopathy, Tenderness - Respiratory Exam Respiratory Exam: Clear to Ausculation Bilateral, NORMAL BREATHING PATTERN. absent: Accessory Muscle Use, Rales, Rhonchi, Wheezes, Respiratory Distress, Stridor - Cardiovascular Exam Cardiovascular Exam: REGULAR RHYTHM, RRR, +S1, +S2. absent: Diastolic murmur, Murmur - GI/Abdominal Exam GI & Abdominal Exam: Soft, Hernia (B/L reducible inguinal hernias ), Normal Bowel Sounds. absent: Distended, Firm, Guarding, Rigid, Tenderness, Rebound - Extremities Exam Extremities Exam: Normal Capillary Refill, Normal Inspection, Tenderness. absent: Joint Swelling Additional comments: right knee immobilizer in place - Neurological Exam Neurological Exam: Alert, Awake, CN II-XII Intact - Skin Skin Exam: Dry, Intact, Normal Color, Warm Assessment and Plan - Assessment and Plan (Free Text) Plan: Fracture of tibia, proximal, right, closed -Ortho Dr. Pino and Jayce West [place] following- no orthopedic intervention indicated at this time, strict NWB, PT/OT -Impaction/insufficiency fracture, lateral aspect proximal tibia, non operative , treated with strict NWB and immobilization -At least 6 weeks old by imaging -Tylenol 650 mg PO Q6 PRN mild pain -Oxycodone 5mg q8 prn severe pain -Daily physical therapy -Nonweight bearing on R leg -L knee x-ray: severe osteopenia. Sclerotic changes about the posterior proximal tibia may relate to a sclerotic healing response of a prior stress fracture here. no tibial plateau depressed fracture. The sclerosis is perceived on the prior 04/21 study; no interval pathology appreciated between 2 exams. If symptosm worsen consider MRI. 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 sclerosi about right acetabulum -daily physical therapy Anemia -chronic -monitor with weekly labs -Orthostatic vital signs ordered Abdominal Pain -patient has been complaining of abdominal pain since admission -Colace 100mg PO BID -Miralax daily -Dulcolax every 3 days -Inguinal hernia with unobstructed bowel loop involvement; protruded 04/18 due to straining on toilet. -05/03/16 B/L inguinal hernias reduced today without incidence -Abdominal US 04/01: Gallstones, no acute cholecystitis, no hydronephrosis. trace ascites (see full report) -Abd/pelv CT 03/11: mod b/l pleural effusions and assoc consolidations; tiny probably gallstones within the gallbladder; small to moderate hiatal hernia; R inguinal hernia which contains small loops of bowel, likely small bowel- no evidence of obstruction as oral contrast is noted within R colon. No definite free air, however evaluation for pneumoperitoneum is suboptimal. Moderate to severe constipation with questionable impaction. Prostate gland 4.1cm x 4.6cm. Urinary bladder appears unremarkable. Small amount of fluid within a right inguinal hernia. Sclerosis of right iliac wing. Extensive anasarca. Aneursmal dilatation of ascending thoracic aorta; Currently 4.5 cm. Patient needs repeat Ct imaging every 6 months (July 2016) BPH -Pyridium 200 mg PO TIDPC -Flomax 0.8 mg PO daily -Finasteride 5 mg PO daily -Urology Dr. Hughes on board Onychomycosis -patient had aseptic debridement of toenails x 10 -clotrimazole cream to be applied to feet b/l BID -podiatry consult- help appreciated Sacral decubitus-Resolved -04/19: exam revealed a previously healed decubitus ulcer of right buttocks. Sacral exam was clear. -Wound care following - recommending medihoney covered with bordered telfa dressing to right lower buttocks stage 2 pressure ulcer daily. -Pt is OOB to chair with help from PT daily -Order placed for turning patient Q2H Urinary Tract Infection -(+) Nitrates on UA -Urine culture ordered -Day 2- Rocephin 1g IV daily- start 05/03/16 Prophylactic Measure -Labs weekly -Lovenox 40mg SC daily -Pepcid 20mg PO BID -A and D ointment TOP Q*H -Colace on hold secondary to patient's constant complains of diarrhea -Patient is homeless. Used to stay with friend, but no longer welcome there. Goal is to walk with cane so he can go to a [facility] (will not qualify with a walker) DISPO -Reaching out to family in [facility] -Social Work is following up Tod Bentonndi PGY1 [phone] <Parker Cantu - Last Filed: 06/09/16 15:05> Objective - Vital Signs/Intake and Output Vital Signs (last 24 hours): Temp Pulse Resp BP Pulse Ox 98.3 F 69 20 108/62 97 06/09/16 08:15 06/09/16 13:59 06/09/16 08:15 06/09/16 08:15 06/09/16 08:15 Intake and Output: 06/09/16 06/09/16 06:59 18:59 Intake Total 500 Balance 500 - Medications Medications: Current Medications Acetaminophen (Tylenol 325mg Tab) 650 mg PO Q6 [facility] Last Admin: 06/09/16 13:31 Dose: 650 mg Carbamide Peroxide (Debrox Ear Drops) 1 ml AU BID [facility] Last Admin: 06/09/16 09:30 Dose: 5 drop Clotrimazole (Lotrimin 1%) 0 gm TOP BID [facility] Last Admin: 06/09/16 09:30 Dose: 1 applic Docusate Sodium (Colace) 100 mg PO BID [facility] Last Admin: 06/09/16 09:29 Dose: 100 mg Enoxaparin Sodium (Lovenox) 40 mg SC DAILY [facility] Last Admin: 06/09/16 09:29 Dose: 40 mg Famotidine (Pepcid) 20 mg PO BID [facility] Last Admin: 06/09/16 09:29 Dose: 20 mg Magnesium Oxide (Mag-Ox) 400 mg PO BID [facility] Last Admin: 06/09/16 09:30 Dose: 400 mg Polyethylene Glycol (Miralax) 17 gm PO Q2D [facility] Last Admin: 06/08/16 13:34 Dose: Not Given Sodium Chloride (Sodium Chloride Tab) 1 gm PO DAILY@1330 [facility] Last Admin: 06/09/16 14:05 Dose: 1 gm Tamsulosin HCl (Flomax) 0.8 mg PO DAILY [facility] Last Admin: 06/09/16 09:29 Dose: 0.8 mg Tramadol HCl (Ultram) 25 mg PO TID PRN PRN Reason: Pain, moderate (4-7) Last Admin: 06/06/16 12:59 Dose: 25 mg - Labs Labs: 06/05/16 07:14 06/05/16 07:14 Attending/Attestation - Attestation I have personally seen and examined this patient.: Yes I have fully participated in the care of the patient.: Yes I have reviewed all pertinent clinical information, including history, physical exam and plan: Yes Notes (Text): Patient seen and examined with the resident. Agree with the residents evaluation, assessment and plan. Fracture of tibia, proximal, right, closed -Ortho Dr. Pino and Jayce NICOLE following- no orthopedic intervention indicated at this time, strict NWB, PT/OT -Impaction/insufficiency fracture, lateral aspect proximal tibia, non operative , treated with strict NWB and immobilization -At least 6 weeks old by imaging -Tylenol 650 mg PO Q6 PRN mild pain -Oxycodone 5mg q8 prn severe pain -Daily physical therapy -Nonweight bearing on R leg -L knee x-ray: severe osteopenia. Sclerotic changes about the posterior proximal tibia may relate to a sclerotic healing response of a prior stress fracture here. no tibial plateau depressed fracture. The sclerosis is perceived on the prior 04/21 study; no interval pathology appreciated between 2 exams. If symptosm worsen consider MRI. 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
[2016-05-05] MEDS: Enoxaparin 40 mg Syringe SC SCH (09:49)
[2016-05-05] MEDS: Clotrimazole 1% Cream 15 GM TUBE TOP SCH ×2 (09:49→18:08)
[2016-05-05] MEDS: POLYETHYLENE GLYCOL 3350 17 GM/Dose PACKET PO SCH (09:51)
[2016-05-05 13:14] LABS: URINE BACTERIA OCC (<OCC); URINE BILIRUBIN NEGATIVE (NEGATIVE); URINE BLOOD NEGATIVE (NEGATIVE); URINE CLARITY Clear (Clear); URINE COLOR Amber (YELLOW); URINE GLUCOSE (UA) NORMAL (Normal); URINE LEUKOCYTE ESTERASE NEG Leu/uL (Negative); URINE NITRATE POSITIVE (NEGATIVE); URINE PROTEIN NEGATIVE (NEGATIVE)
[2016-05-05] MEDS: Bisacodyl 5mg EC Tab PO SCH (16:45)
[2016-05-06] MEDS: Vitamins A & D Oint UD Foilpak TOP SCH ×3 (01:33→18:54)
--- NOTE | 2016-05-06 03:27 | CP.PCM.PN ---
<Jessie Luna - Last Filed: 05/06/16 05:45> Subjective - Date & Time of Evaluation Date of Evaluation: 05/06/16 Time of Evaluation: 03:25 - Subjective Subjective: Patient seen and examined. Patient resting comfortably in bed. No acute events o/n. Patient with complaints of pain in feet and abdomen. Objective - Vital Signs/Intake and Output Vital Signs (last 24 hours): Temp Pulse Resp BP Pulse Ox 97.9 F 64 20 122/71 96 05/05/16 23:47 05/05/16 23:47 05/05/16 23:47 05/05/16 23:47 05/05/16 23:47 Intake and Output: 05/05/16 05/06/16 18:59 06:59 Intake Total 1400 775 Output Total 800 Balance 1400 -25 - Medications Medications: Current Medications Acetaminophen (Tylenol 325mg Tab) 650 mg PO Q6 [facility] Last Admin: 05/06/16 00:20 Dose: 650 mg Bisacodyl (Dulcolax) 5 mg PO Q3D [facility] Last Admin: 05/05/16 16:45 Dose: 5 mg Clotrimazole (Lotrimin 1%) 0 gm TOP BID [facility] Last Admin: 05/05/16 18:08 Dose: 1 applic Docusate Sodium (Colace) 100 mg PO BID [facility] Last Admin: 05/05/16 18:08 Dose: 100 mg Enoxaparin Sodium (Lovenox) 40 mg SC DAILY [facility] Last Admin: 05/05/16 09:49 Dose: 40 mg Famotidine (Pepcid) 20 mg PO BID [facility] Last Admin: 05/05/16 18:09 Dose: 20 mg Finasteride (Proscar) 5 mg PO DAILY [facility] Last Admin: 05/05/16 09:50 Dose: 5 mg Ceftriaxone Sodium 1 gm/ (Sodium Chloride) 100 mls @ 100 mls/hr IVPB DAILY@ 1200 [facility] Last Admin: 05/05/16 13:00 Dose: 100 mls/hr Phenazopyridine HCl (Pyridium) 200 mg PO TIDPC [facility] Last Admin: 05/05/16 18:09 Dose: 200 mg Polyethylene Glycol (Miralax) 17 gm PO DAILY [facility] Last Admin: 05/05/16 09:51 Dose: Not Given Tamsulosin HCl (Flomax) 0.8 mg PO DAILY [facility] Last Admin: 05/05/16 09:50 Dose: 0.8 mg Vitamin A (Vitamin A & D Oint Ud Foilpak) 1 ea TOP Q8H [facility] Last Admin: 05/06/16 01:33 Dose: 1 ea - Labs Labs: 05/01/16 08:22 05/01/16 08:22 - Constitutional Appears: Non-toxic, Chronically Ill - Head Exam Head Exam: ATRAUMATIC, NORMOCEPHALIC - Eye Exam Eye Exam: EOMI - ENT Exam ENT Exam: Mucous Membranes Moist - Respiratory Exam Respiratory Exam: Clear to Ausculation Bilateral, NORMAL BREATHING PATTERN - Cardiovascular Exam Cardiovascular Exam: +S1, +S2 - GI/Abdominal Exam GI & Abdominal Exam: Soft, Hernia (inguinal), Normal Bowel Sounds - Extremities Exam Additional comments: right knee immobilizer - Neurological Exam Neurological Exam: Alert, Awake - Skin Skin Exam: Dry, Warm Assessment and Plan - Assessment and Plan (Free Text) Assessment: Fracture of tibia, proximal, right, closed -Ortho Dr. Pino and Jayce West [place] following- no orthopedic intervention indicated at this time, strict NWB, PT/OT -Impaction/insufficiency fracture, lateral aspect proximal tibia, non operative , treated with strict NWB and immobilization -At least 6 weeks old by imaging -Tylenol 650 mg PO Q6 PRN mild pain -Oxycodone 5mg q8 prn severe pain -Daily physical therapy -Nonweight bearing on R leg -L knee x-ray: severe osteopenia. Sclerotic changes about the posterior proximal tibia may relate to a sclerotic healing response of a prior stress fracture here. no tibial plateau depressed fracture. The sclerosis is perceived on the prior 04/21 study; no interval pathology appreciated between 2 exams. If symptosm worsen consider MRI. 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 sclerosi about right acetabulum -daily physical therapy -PT 05/05: decline in transfers due to limitation from right hip and knee pain. patient still able to tolerate hallway ambulation, no episode of orthostatic hypotension post gait. recommending room/hallway ambulation w/ nursing for AM/ PM care or toileting. Anemia -chronic -monitor with weekly labs -Orthostatic vital signs ordered Abdominal Pain -patient has been complaining of abdominal pain since admission -Colace 100mg PO BID -Miralax daily -Dulcolax every 3 days -Inguinal hernia with unobstructed bowel loop involvement; protruded 04/18 due to straining on toilet. -05/03/16 B/L inguinal hernias reduced today without incidence -Abdominal US 04/01: Gallstones, no acute cholecystitis, no hydronephrosis. trace ascites (see full report) -Abd/pelv CT 03/11: mod b/l pleural effusions and assoc consolidations; tiny probably gallstones within the gallbladder; small to moderate hiatal hernia; R inguinal hernia which contains small loops of bowel, likely small bowel- no evidence of obstruction as oral contrast is noted within R colon. No definite free air, however evaluation for pneumoperitoneum is suboptimal. Moderate to severe constipation with questionable impaction. Prostate gland 4.1cm x 4.6cm. Urinary bladder appears unremarkable. Small amount of fluid within a right inguinal hernia. Sclerosis of right iliac wing. Extensive anasarca. Aneursmal dilatation of ascending thoracic aorta; Currently 4.5 cm. Patient needs repeat Ct imaging every 6 months (July 2016) BPH -Pyridium 200 mg PO TIDPC -Flomax 0.8 mg PO daily -Finasteride 5 mg PO daily -Urology Dr. Hughes on board Onychomycosis -patient had aseptic debridement of toenails x 10 -clotrimazole cream to be applied to feet b/l BID -podiatry consult- help appreciated Sacral decubitus-Resolved -04/19: exam revealed a previously healed decubitus ulcer of right buttocks. Sacral exam was clear. -Wound care following - recommending medihoney covered with bordered telfa dressing to right lower buttocks stage 2 pressure ulcer daily. -Pt is OOB to chair with help from PT daily -Order placed for turning patient Q2H Urinary Tract Infection -Urine culture ordered -Day 2- Rocephin 1g IV daily- start 05/03/16 - urine culture 05/03- no growth - UA 05/05: +nitrates, occasional bacteria Prophylactic Measure -Labs weekly -Lovenox 40mg SC daily -Pepcid 20mg PO BID -A and D ointment TOP Q*H -Colace on hold secondary to patient's constant complains of diarrhea -Patient is homeless. Used to stay with friend, but no longer welcome there. Goal is to walk with cane so he can go to a [facility] (will not qualify with a walker) DISPO -Reaching out to family in [facility] -Social Work is following up <Lionel Santo - Last Filed: 05/07/16 08:47> Objective - Vital Signs/Intake and Output Vital Signs (last 24 hours): Temp Pulse Resp BP Pulse Ox 98.4 F 82 20 107/58 L 95 05/07/16 00:00 05/07/16 00:00 05/07/16 00:00 05/07/16 00:00 05/07/16 00:00 Intake and Output: 05/07/16 05/07/16 06:59 18:59 Intake Total 300 0 Output Total 500 Balance -200 0 - Medications Medications: Current Medications Acetaminophen (Tylenol 325mg Tab) 650 mg PO Q6 [facility] Last Admin: 05/07/16 06:40 Dose: 650 mg Bisacodyl (Dulcolax) 5 mg PO Q3D [facility] Last Admin: 05/05/16 16:45 Dose: 5 mg Clotrimazole (Lotrimin 1%) 0 gm TOP BID [facility] Last Admin: 05/06/16 18:55 Dose: 1 applic Docusate Sodium (Colace) 100 mg PO BID [facility] Last Admin: 05/06/16 18:55 Dose: 100 mg Enoxaparin Sodium (Lovenox) 40 mg SC DAILY [facility] Last Admin: 05/06/16 10:25 Dose: 40 mg Famotidine (Pepcid) 20 mg PO BID [facility] Last Admin: 05/06/16 18:54 Dose: 20 mg Finasteride (Proscar) 5 mg PO DAILY [facility] Last Admin: 05/06/16 10:23 Dose: 5 mg Oxycodone/Acetaminophen (Percocet 5/325 Mg Tab) 1 tab PO Q8H PRN PRN Reason: Pain, moderate (4-7) Stop: 05/09/16 19:11 Phenazopyridine HCl (Pyridium) 200 mg PO TIDPC [facility] Last Admin: 05/06/16 19:09 Dose: 200 mg Polyethylene Glycol (Miralax) 17 gm PO DAILY [facility] Last Admin: 05/06/16 14:07 Dose: Not Given Tamsulosin HCl (Flomax) 0.8 mg PO DAILY [facility] Last Admin: 05/06/16 10:24 Dose: 0.8 mg Vitamin A (Vitamin A & D Oint Ud Foilpak) 1 ea TOP Q8H [facility] Last Admin: 05/07/16 00:52 Dose: 1 ea - Labs Labs: 05/01/16 08:22 05/01/16 08:22 Attending/Attestation - Attestation I have personally seen and examined this patient.: Yes I have fully participated in the care of the patient.: Yes I have reviewed all pertinent clinical information, including history, physical exam and plan: Yes Notes (Text): Patient initially admitted with physical deconditioning and pain, found to have acetabular protrusion of R hip prosthesis, subsequently with R proximal tibial closed fracture; Patient continues to report R hip and knee pain; has not worked with PT today; also with urinary frequency with slow stream; constipated; No surgical intervention per ortho, only PT and non-weight bearing on R; medical team advising patient today to try and be mobile even on days PT is not seeing him; suggested that when he is OOB in chair, he should keep walker in front of him and periodically stand with walker while being NWB on R; Continuing standing tylenol q6h; restarting percocet 5/325 q8h prn for pain; BPH symptoms not improving; on max dose of flomax and finasteride; urology wanting to do intervention only as outpatient; anti-cholinergic med may help with frequency but possibly at the risk of reflux nephropathy, therefore will not start; No UTI, ceftriaxone discontinued; Constipation, on colace bid and bisacodyl q3d; miralax ordered daily but patient reportedly refusing; Dispo: Indefinite hospital course for homeless patient who needs to be non- weight bearing on R and has no insurance for LAXMI.
[2016-05-06] MEDS: Clotrimazole 1% Cream 15 GM TUBE TOP SCH ×2 (10:25→18:55)
[2016-05-06] MEDS: Enoxaparin 40 mg Syringe SC SCH (10:25)
[2016-05-06] MEDS: POLYETHYLENE GLYCOL 3350 17 GM/Dose PACKET PO SCH (14:07)
[2016-05-06] MEDS ORDERED: Oxycodone/Acetaminophen 5/325 mg Tab PO PRN (19:10)
[2016-05-07] MEDS: Vitamins A & D Oint UD Foilpak TOP SCH ×3 (00:52→17:31)
--- NOTE | 2016-05-07 04:02 | CP.PCM.PN ---
<Jessie Luna - Last Filed: 05/07/16 05:18> Subjective - Date & Time of Evaluation Date of Evaluation: 05/07/16 Time of Evaluation: 04:01 - Subjective Subjective: Patient seen and examined. Patient with complaint in right leg and lower abdomen/ suprapubic region. Objective - Vital Signs/Intake and Output Vital Signs (last 24 hours): Temp Pulse Resp BP Pulse Ox 98.4 F 82 20 107/58 L 95 05/07/16 00:00 05/07/16 00:00 05/07/16 00:00 05/07/16 00:00 05/07/16 00:00 Intake and Output: 05/06/16 05/07/16 18:59 06:59 Intake Total 550 Output Total 800 Balance -250 - Medications Medications: Current Medications Acetaminophen (Tylenol 325mg Tab) 650 mg PO Q6 [facility] Last Admin: 05/07/16 00:52 Dose: 650 mg Bisacodyl (Dulcolax) 5 mg PO Q3D [facility] Last Admin: 05/05/16 16:45 Dose: 5 mg Clotrimazole (Lotrimin 1%) 0 gm TOP BID [facility] Last Admin: 05/06/16 18:55 Dose: 1 applic Docusate Sodium (Colace) 100 mg PO BID [facility] Last Admin: 05/06/16 18:55 Dose: 100 mg Enoxaparin Sodium (Lovenox) 40 mg SC DAILY [facility] Last Admin: 05/06/16 10:25 Dose: 40 mg Famotidine (Pepcid) 20 mg PO BID [facility] Last Admin: 05/06/16 18:54 Dose: 20 mg Finasteride (Proscar) 5 mg PO DAILY [facility] Last Admin: 05/06/16 10:23 Dose: 5 mg Oxycodone/Acetaminophen (Percocet 5/325 Mg Tab) 1 tab PO Q8H PRN PRN Reason: Pain, moderate (4-7) Stop: 05/09/16 19:11 Phenazopyridine HCl (Pyridium) 200 mg PO TIDPC [facility] Last Admin: 05/06/16 19:09 Dose: 200 mg Polyethylene Glycol (Miralax) 17 gm PO DAILY [facility] Last Admin: 05/06/16 14:07 Dose: Not Given Tamsulosin HCl (Flomax) 0.8 mg PO DAILY [facility] Last Admin: 05/06/16 10:24 Dose: 0.8 mg Vitamin A (Vitamin A & D Oint Ud Foilpak) 1 ea TOP Q8H [facility] Last Admin: 05/07/16 00:52 Dose: 1 ea - Labs Labs: 05/01/16 08:22 05/01/16 08:22 - Constitutional Appears: Non-toxic, Chronically Ill - Head Exam Head Exam: ATRAUMATIC, NORMOCEPHALIC - Eye Exam Eye Exam: EOMI - ENT Exam ENT Exam: Mucous Membranes Moist Additional comments: poor dentition - Respiratory Exam Respiratory Exam: Clear to Ausculation Bilateral - Cardiovascular Exam Cardiovascular Exam: +S1, +S2 - GI/Abdominal Exam GI & Abdominal Exam: Soft, Tenderness (lower abdomen/ suprapubic), Normal Bowel Sounds - Extremities Exam Additional comments: right knee immobilizer - Neurological Exam Neurological Exam: Alert, Awake - Psychiatric Exam Psychiatric exam: Normal Affect - Skin Skin Exam: Dry, Warm Assessment and Plan - Assessment and Plan (Free Text) Assessment: Fracture of tibia, proximal, right, closed -Ortho Dr. Pino and Jayce West [place] following- no orthopedic intervention indicated at this time, strict NWB, PT/OT -Impaction/insufficiency fracture, lateral aspect proximal tibia, non operative , treated with strict NWB and immobilization -At least 6 weeks old by imaging -Tylenol 650 mg PO Q6 PRN mild pain -Oxycodone 5mg q8 prn severe pain -Daily physical therapy -Nonweight bearing on R leg -L knee x-ray: severe osteopenia. Sclerotic changes about the posterior proximal tibia may relate to a sclerotic healing response of a prior stress fracture here. no tibial plateau depressed fracture. The sclerosis is perceived on the prior 04/21 study; no interval pathology appreciated between 2 exams. If symptosm worsen consider MRI. 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 sclerosi about right acetabulum -daily physical therapy -PT 05/05: decline in transfers due to limitation from right hip and knee pain. patient still able to tolerate hallway ambulation, no episode of orthostatic hypotension post gait. recommending room/hallway ambulation w/ nursing for AM/ PM care or toileting. Anemia -chronic -monitor with weekly labs -Orthostatic vital signs ordered Abdominal Pain -patient has been complaining of abdominal pain since admission -Colace 100mg PO BID -Miralax daily -Dulcolax every 3 days -Inguinal hernia with unobstructed bowel loop involvement; protruded 04/18 due to straining on toilet. -05/03/16 B/L inguinal hernias reduced today without incidence -Abdominal US 04/01: Gallstones, no acute cholecystitis, no hydronephrosis. trace ascites (see full report) -Abd/pelv CT 03/11: mod b/l pleural effusions and assoc consolidations; tiny probably gallstones within the gallbladder; small to moderate hiatal hernia; R inguinal hernia which contains small loops of bowel, likely small bowel- no evidence of obstruction as oral contrast is noted within R colon. No definite free air, however evaluation for pneumoperitoneum is suboptimal. Moderate to severe constipation with questionable impaction. Prostate gland 4.1cm x 4.6cm. Urinary bladder appears unremarkable. Small amount of fluid within a right inguinal hernia. Sclerosis of right iliac wing. Extensive anasarca. Aneursmal dilatation of ascending thoracic aorta; Currently 4.5 cm. Patient needs repeat Ct imaging every 6 months (July 2016) BPH -Pyridium 200 mg PO TIDPC -Flomax 0.8 mg PO daily -Finasteride 5 mg PO daily -Urology Dr. Hughes on board Onychomycosis -patient had aseptic debridement of toenails x 10 -clotrimazole cream to be applied to feet b/l BID -podiatry consult- help appreciated Sacral decubitus-Resolved -04/19: exam revealed a previously healed decubitus ulcer of right buttocks. Sacral exam was clear. -Wound care following - recommending medihoney covered with bordered telfa dressing to right lower buttocks stage 2 pressure ulcer daily. -Pt is OOB to chair with help from PT daily -Order placed for turning patient Q2H Urinary Tract Infection -Urine culture ordered -Day 2- Rocephin 1g IV daily- start 05/03/16 - urine culture 05/03- no growth - UA 05/05: +nitrates, occasional bacteria Prophylactic Measure -Labs weekly -Lovenox 40mg SC daily -Pepcid 20mg PO BID -A and D ointment TOP Q*H -Colace on hold secondary to patient's constant complains of diarrhea -Patient is homeless. Used to stay with friend, but no longer welcome there. Goal is to walk with cane so he can go to a [facility] (will not qualify with a walker) DISPO -Reaching out to family in [facility] -Social Work is following up <Lionel Santo - Last Filed: 05/07/16 16:56> Objective - Vital Signs/Intake and Output Vital Signs (last 24 hours): Temp Pulse Resp BP Pulse Ox 98.8 F 82 20 112/67 97 05/07/16 08:00 05/07/16 08:00 05/07/16 08:00 05/07/16 08:00 05/07/16 08:15 Intake and Output: 05/07/16 05/07/16 06:59 18:59 Intake Total 300 700 Output Total 500 800 Balance -200 -100 - Medications Medications: Current Medications Acetaminophen (Tylenol 325mg Tab) 650 mg PO Q6 [facility] Last Admin: 05/07/16 11:03 Dose: 650 mg Bisacodyl (Dulcolax) 5 mg PO Q3D [facility] Last Admin: 05/05/16 16:45 Dose: 5 mg Clotrimazole (Lotrimin 1%) 0 gm TOP BID [facility] Last Admin: 05/07/16 10:26 Dose: 1 applic Docusate Sodium (Colace) 100 mg PO BID [facility] Last Admin: 05/07/16 10:28 Dose: Not Given Enoxaparin Sodium (Lovenox) 40 mg SC DAILY [facility] Last Admin: 05/07/16 10:27 Dose: 40 mg Famotidine (Pepcid) 20 mg PO BID [facility] Last Admin: 05/07/16 10:27 Dose: 20 mg Finasteride (Proscar) 5 mg PO DAILY [facility] Last Admin: 05/07/16 10:26 Dose: 5 mg Oxycodone/Acetaminophen (Percocet 5/325 Mg Tab) 1 tab PO Q8H PRN PRN Reason: Pain, moderate (4-7) Stop: 05/09/16 19:11 Phenazopyridine HCl (Pyridium) 200 mg PO TIDPC [facility] Last Admin: 05/07/16 14:10 Dose: 200 mg Polyethylene Glycol (Miralax) 17 gm PO DAILY [facility] Last Admin: 05/07/16 10:28 Dose: Not Given Tamsulosin HCl (Flomax) 0.8 mg PO DAILY [facility] Last Admin: 05/07/16 10:27 Dose: 0.8 mg Vitamin A (Vitamin A & D Oint Ud Foilpak) 1 ea TOP Q8H [facility] Last Admin: 05/07/16 10:27 Dose: 1 ea - Labs Labs: 05/01/16 08:22 05/01/16 08:22 Attending/Attestation - Attestation I have personally seen and examined this patient.: Yes I have fully participated in the care of the patient.: Yes I have reviewed all pertinent clinical information, including history, physical exam and plan: Yes Notes (Text): Patient initially admitted with physical deconditioning and pain, found to have acetabular protrusion of R hip prosthesis, subsequently with R proximal tibial closed fracture; Patient reports having difficulty passing stool, however, per nursing staff, he had good BM yesterday and today; No surgical intervention for orthopedic issues, only PT and non-weight bearing on R; Medical team again advised patient to get OOB to chair, nursing communication placed; Continuing standing tylenol q6h, percocet 5/325 q8h prn for pain; BPH symptoms on max dose of flomax and finasteride; no evidence of urinary retention; outpatient management per urology but needs to be monitored regularly ; Constipation improved, on colace bid and bisacodyl q3d; will discontinue miralax ; Dispo: Indefinite hospital course for homeless patient who needs to be non- weight bearing on R and has no insurance for LAXMI.
[2016-05-07] MEDS: Clotrimazole 1% Cream 15 GM TUBE TOP SCH ×2 (10:26→17:32)
[2016-05-07] MEDS: Enoxaparin 40 mg Syringe SC SCH (10:27)
[2016-05-07] MEDS: POLYETHYLENE GLYCOL 3350 17 GM/Dose PACKET PO SCH (10:28)
[2016-05-08] MEDS: Vitamins A & D Oint UD Foilpak TOP SCH ×3 (02:23→17:58)
[2016-05-08] MEDS: POLYETHYLENE GLYCOL 3350 17 GM/Dose PACKET PO SCH (10:38)
[2016-05-08] MEDS: Clotrimazole 1% Cream 15 GM TUBE TOP SCH ×2 (10:38→18:00)
[2016-05-08] MEDS: Enoxaparin 40 mg Syringe SC SCH (10:38)
[2016-05-08 12:02] LABS: BASO % 0.8 % (0.0-2.0); EOS # 0.1 K/uL (0.0-0.7); EOS % 3.4 % (0.0-4.0); HEMOGLOBIN 10.6 g/dL (12.0-18.0); LYMPH # 1.6 K/uL (1.0-4.3); LYMPH % 37.1 % (20.0-40.0); MEAN CELL VOLUME 95.6 fL (80.0-94.0); MEAN CORPUSCULAR HEMOGLOBIN 32.9 pg (27.0-31.0); MEAN CORPUSCULAR HGB CONC 34.4 g/dL (33.0-37.0); MONO # 0.5 K/uL (0.0-0.8); MONO % 10.9 % (0.0-10.0); NEUT # 2.1 K/uL (1.8-7.0); NEUT % 47.8 % (50.0-75.0); NRBC % 0.1 % (0.0-2.0); RBC 3.2 Mil/uL (4.40-5.90); RED CELL DISTRIBUTION WIDTH 17.5 % (11.5-14.5); WHITE BLOOD COUNT 4.3 K/uL (4.8-10.8)
[2016-05-08 12:36] LABS: ALBUMIN 3.3 g/dL (3.5-5.0)
[2016-05-08 12:38] LABS: GFR AFRICAN-AMERICAN > 60; GFR NON-AFRICAN AMERICAN > 60
[2016-05-08 12:39] LABS: ALB/GLOB RATIO 0.9 (1.0-2.1); ALT/SGPT 30 U/L (21-72); AST/SGOT 24 U/L (17-59); BLOOD UREA NITROGEN 14 mg/dL (9-20); CALCIUM 8.4 mg/dl (8.6-10.4)
[2016-05-08 12:40] LABS: MAGNESIUM 1.5 mg/dL (1.6-2.3)
--- NOTE | 2016-05-08 16:45 | CP.PCM.PN ---
<Jessie Luna - Last Filed: 05/08/16 17:19> Subjective - Date & Time of Evaluation Date of Evaluation: 05/08/16 Time of Evaluation: 07:50 - Subjective Subjective: PGY1 on Dr Wiggins's service: Patient seen and examined. Patient still points to lower abdomen and right leg with complaint of pain. Objective - Vital Signs/Intake and Output Vital Signs (last 24 hours): Temp Pulse Resp BP Pulse Ox 98 F 68 20 112/72 96 05/08/16 07:39 05/08/16 07:39 05/08/16 07:39 05/08/16 07:39 05/08/16 07:39 Intake and Output: 05/08/16 05/08/16 06:59 18:59 Intake Total 600 600 Output Total 650 Balance -50 600 - Medications Medications: Current Medications Acetaminophen (Tylenol 325mg Tab) 650 mg PO Q6 [facility] Last Admin: 05/08/16 14:26 Dose: 650 mg Bisacodyl (Dulcolax) 5 mg PO Q3D [facility] Last Admin: 05/05/16 16:45 Dose: 5 mg Clotrimazole (Lotrimin 1%) 0 gm TOP BID [facility] Last Admin: 05/08/16 10:38 Dose: 1 applic Docusate Sodium (Colace) 100 mg PO BID [facility] Last Admin: 05/07/16 17:32 Dose: 100 mg Enoxaparin Sodium (Lovenox) 40 mg SC DAILY [facility] Last Admin: 05/08/16 10:38 Dose: 40 mg Famotidine (Pepcid) 20 mg PO BID [facility] Last Admin: 05/08/16 10:38 Dose: 20 mg Finasteride (Proscar) 5 mg PO DAILY [facility] Last Admin: 05/08/16 10:40 Dose: 5 mg Oxycodone/Acetaminophen (Percocet 5/325 Mg Tab) 1 tab PO Q8H PRN PRN Reason: Pain, moderate (4-7) Stop: 05/09/16 19:11 Phenazopyridine HCl (Pyridium) 200 mg PO TIDPC [facility] Last Admin: 05/08/16 14:26 Dose: 200 mg Polyethylene Glycol (Miralax) 17 gm PO DAILY [facility] Last Admin: 05/08/16 10:38 Dose: 17 gm Tamsulosin HCl (Flomax) 0.8 mg PO DAILY [facility] Last Admin: 05/08/16 10:38 Dose: 0.8 mg Vitamin A (Vitamin A & D Oint Ud Foilpak) 1 ea TOP Q8H [facility] Last Admin: 05/08/16 10:40 Dose: 1 ea - Labs Labs: 05/08/16 11:39 05/08/16 11:39 - Constitutional Appears: Non-toxic, No Acute Distress, Chronically Ill - Head Exam Head Exam: ATRAUMATIC, NORMOCEPHALIC - Eye Exam Eye Exam: EOMI - ENT Exam ENT Exam: Mucous Membranes Moist Additional comments: poor dentition - Respiratory Exam Respiratory Exam: Clear to Ausculation Bilateral - Cardiovascular Exam Cardiovascular Exam: +S1, +S2 - GI/Abdominal Exam GI & Abdominal Exam: Soft, Tenderness (lower abdomen), Normal Bowel Sounds - Exam Additional comments: suprapubic tenderness - Extremities Exam Extremities Exam: absent: Pedal Edema Additional comments: right knee immobilizer in place. patient with intact sensation. - Neurological Exam Neurological Exam: Alert, Awake - Psychiatric Exam Psychiatric exam: Normal Affect - Skin Skin Exam: Dry, Warm Assessment and Plan - Assessment and Plan (Free Text) Assessment: Fracture of tibia, proximal, right, closed -05/05:Ortho Dr. Pino and Jayce West PA following- no orthopedic intervention indicated at this time, strict NWB, PT/OT -Impaction/insufficiency fracture, lateral aspect proximal tibia, non operative , treated with strict NWB and immobilization -At least 6 weeks old by imaging -Tylenol 650 mg PO Q6 PRN mild pain -Oxycodone 5mg q8 prn severe pain -Daily physical therapy -Nonweight bearing on R leg -L knee x-ray: severe osteopenia. Sclerotic changes about the posterior proximal tibia may relate to a sclerotic healing response of a prior stress fracture here. no tibial plateau depressed fracture. The sclerosis is perceived on the prior 04/21 study; no interval pathology appreciated between 2 exams. If symptosm worsen consider MRI. 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 sclerosi about right acetabulum -daily physical therapy -PT 05/05: decline in transfers due to limitation from right hip and knee pain. patient still able to tolerate hallway ambulation, no episode of orthostatic hypotension post gait. recommending room/hallway ambulation w/ nursing for AM/ PM care or toileting. Anemia -chronic -monitor with weekly labs -Orthostatic vital signs ordered Abdominal Pain -patient has been complaining of abdominal pain since admission -Colace 100mg PO BID -Miralax daily -Dulcolax every 3 days -Inguinal hernia with unobstructed bowel loop involvement; protruded 04/18 due to straining on toilet. -05/03/16 B/L inguinal hernias reduced today without incidence -Abdominal US 04/01: Gallstones, no acute cholecystitis, no hydronephrosis. trace ascites (see full report) -Abd/pelv CT 03/11: mod b/l pleural effusions and assoc consolidations; tiny probably gallstones within the gallbladder; small to moderate hiatal hernia; R inguinal hernia which contains small loops of bowel, likely small bowel- no evidence of obstruction as oral contrast is noted within R colon. No definite free air, however evaluation for pneumoperitoneum is suboptimal. Moderate to severe constipation with questionable impaction. Prostate gland 4.1cm x 4.6cm. Urinary bladder appears unremarkable. Small amount of fluid within a right inguinal hernia. Sclerosis of right iliac wing. Extensive anasarca. Aneursmal dilatation of ascending thoracic aorta; Currently 4.5 cm. Patient needs repeat Ct imaging every 6 months (July 2016) BPH -Pyridium 200 mg PO TIDPC -Flomax 0.8 mg PO daily -Finasteride 5 mg PO daily -Urology Dr. Hughes on board Onychomycosis -patient had aseptic debridement of toenails x 10 -clotrimazole cream to be applied to feet b/l BID -podiatry consult- help appreciated Sacral decubitus-Resolved -04/19: exam revealed a previously healed decubitus ulcer of right buttocks. Sacral exam was clear. -Wound care following - recommending medihoney covered with bordered telfa dressing to right lower buttocks stage 2 pressure ulcer daily. -Pt is OOB to chair with help from PT daily -Order placed for turning patient Q2H Urinary Tract Infection - urine culture 05/03- no growth - UA 05/05: +nitrates, occasional bacteria Prophylactic Measure -Labs weekly -Lovenox 40mg SC daily -Pepcid 20mg PO BID -A and D ointment TOP Q*H -Colace on hold secondary to patient's constant complains of diarrhea -Patient is homeless. Used to stay with friend, but no longer welcome there. Goal is to walk with cane so he can go to a retirement (will not qualify with a walker) DISPO -Reaching out to family in [facility] -Social Work is following up <Jose Wiggins - Last Filed: 05/08/16 18:04> Objective - Vital Signs/Intake and Output Vital Signs (last 24 hours): Temp Pulse Resp BP Pulse Ox 98 F 68 20 112/72 96 05/08/16 07:39 05/08/16 07:39 05/08/16 07:39 05/08/16 07:39 05/08/16 07:39 Intake and Output: 05/08/16 05/08/16 06:59 18:59 Intake Total 600 600 Output Total 650 Balance -50 600 - Medications Medications: Current Medications Acetaminophen (Tylenol 325mg Tab) 650 mg PO Q6 [facility] Last Admin: 05/08/16 14:26 Dose: 650 mg Bisacodyl (Dulcolax) 5 mg PO Q3D [facility] Last Admin: 05/08/16 17:58 Dose: 5 mg Clotrimazole (Lotrimin 1%) 0 gm TOP BID [facility] Last Admin: 05/08/16 18:00 Dose: 1 applic Docusate Sodium (Colace) 100 mg PO BID [facility] Last Admin: 05/08/16 17:58 Dose: 100 mg Enoxaparin Sodium (Lovenox) 40 mg SC DAILY [facility] Last Admin: 05/08/16 10:38 Dose: 40 mg Famotidine (Pepcid) 20 mg PO BID [facility] Last Admin: 05/08/16 17:58 Dose: 20 mg Finasteride (Proscar) 5 mg PO DAILY [facility] Last Admin: 05/08/16 10:40 Dose: 5 mg Oxycodone/Acetaminophen (Percocet 5/325 Mg Tab) 1 tab PO Q8H PRN PRN Reason: Pain, moderate (4-7) Stop: 05/09/16 19:11 Phenazopyridine HCl (Pyridium) 200 mg PO TIDPC [facility] Last Admin: 05/08/16 17:59 Dose: 200 mg Polyethylene Glycol (Miralax) 17 gm PO DAILY [facility] Last Admin: 05/08/16 10:38 Dose: 17 gm Tamsulosin HCl (Flomax) 0.8 mg PO DAILY [facility] Last Admin: 05/08/16 10:38 Dose: 0.8 mg Vitamin A (Vitamin A & D Oint Ud Foilpak) 1 ea TOP Q8H [facility] Last Admin: 05/08/16 17:58 Dose: 1 ea - Labs Labs: 05/08/16 11:39 05/08/16 11:39 Attending/Attestation - Attestation I have personally seen and examined this patient.: Yes I have fully participated in the care of the patient.: Yes I have reviewed all pertinent clinical information, including history, physical exam and plan: Yes Notes (Text): 05/08/16 18:04 Patient was seen and examined at bedside with the resident Still complains of for Pain in the right hip Continue physical therapy daily Discharge planning when patient is physically stronger Discussed the plan of care with the resident
[2016-05-08] MEDS: Bisacodyl 5mg EC Tab PO SCH (17:58)
[2016-05-09] MEDS: Vitamins A & D Oint UD Foilpak TOP SCH ×3 (00:49→17:41)
[2016-05-09] MEDS: Enoxaparin 40 mg Syringe SC SCH (10:25)
[2016-05-09] MEDS: POLYETHYLENE GLYCOL 3350 17 GM/Dose PACKET PO SCH (10:25)
--- NOTE | 2016-05-09 10:44 | CP.PCM.PN ---
<Jessie Luna - Last Filed: 05/09/16 13:36> Subjective - Date & Time of Evaluation Date of Evaluation: 05/09/16 Time of Evaluation: 07:35 - Subjective Subjective: PGY1 on Dr. Wiggins's service: Patient seen and examined. Patient with complaint of right hip pain and right knee pain. Patient not eating much as he does not like the food. Patient states he is walking with PT but has not seen them recently. Objective - Vital Signs/Intake and Output Vital Signs (last 24 hours): Temp Pulse Resp BP Pulse Ox 97.8 F 69 20 111/75 95 05/09/16 08:27 05/09/16 08:27 05/09/16 08:27 05/09/16 08:27 05/09/16 08:27 - Medications Medications: Current Medications Acetaminophen (Tylenol 325mg Tab) 650 mg PO Q6 [facility] Last Admin: 05/09/16 05:25 Dose: 650 mg Bisacodyl (Dulcolax) 5 mg PO Q3D [facility] Last Admin: 05/08/16 17:58 Dose: 5 mg Clotrimazole (Lotrimin 1%) 0 gm TOP BID [facility] Last Admin: 05/08/16 18:00 Dose: 1 applic Docusate Sodium (Colace) 100 mg PO BID [facility] Last Admin: 05/08/16 17:58 Dose: 100 mg Enoxaparin Sodium (Lovenox) 40 mg SC DAILY [facility] Last Admin: 05/08/16 10:38 Dose: 40 mg Famotidine (Pepcid) 20 mg PO BID [facility] Last Admin: 05/08/16 17:58 Dose: 20 mg Finasteride (Proscar) 5 mg PO DAILY [facility] Last Admin: 05/08/16 10:40 Dose: 5 mg Magnesium Oxide (Mag-Ox) 400 mg PO BID [facility] Oxycodone/Acetaminophen (Percocet 5/325 Mg Tab) 1 tab PO Q8H PRN PRN Reason: Pain, moderate (4-7) Stop: 05/09/16 19:11 Phenazopyridine HCl (Pyridium) 200 mg PO TIDPC [facility] Last Admin: 05/08/16 17:59 Dose: 200 mg Polyethylene Glycol (Miralax) 17 gm PO DAILY [facility] Last Admin: 05/08/16 10:38 Dose: 17 gm Tamsulosin HCl (Flomax) 0.8 mg PO DAILY [facility] Last Admin: 05/08/16 10:38 Dose: 0.8 mg Vitamin A (Vitamin A & D Oint Ud Foilpak) 1 ea TOP Q8H [facility] Last Admin: 05/09/16 00:49 Dose: 1 ea - Labs Labs: 05/08/16 11:39 05/08/16 11:39 - Constitutional Appears: No Acute Distress, Chronically Ill - Head Exam Head Exam: ATRAUMATIC, NORMOCEPHALIC - Eye Exam Eye Exam: EOMI - ENT Exam ENT Exam: Mucous Membranes Moist - Respiratory Exam Respiratory Exam: Clear to Ausculation Bilateral - Cardiovascular Exam Cardiovascular Exam: +S1, +S2 - GI/Abdominal Exam GI & Abdominal Exam: Soft, Tenderness, Normal Bowel Sounds - Extremities Exam Additional comments: right hip tenderness to palpation right knee in immobilizer no lower extremity edema - Neurological Exam Neurological Exam: Alert, Awake - Skin Skin Exam: Dry, Warm Assessment and Plan - Assessment and Plan (Free Text) Assessment: Fracture of tibia, proximal, right, closed -05/09- right knee xrays ordered by orthopedics team- No acute fracture. Status post ORIF old patellar fracture No significant interval change compared to the prior examination Will follow up recommendations from orthopedics team -05/05:Ortho Dr. Pino and Jayce West PA following- no orthopedic intervention indicated at this time, strict NWB, PT/OT -Impaction/insufficiency fracture, lateral aspect proximal tibia, non operative , treated with strict NWB and immobilization -At least 6 weeks old by imaging -Tylenol 650 mg PO Q6 PRN mild pain -Oxycodone 5mg q8 prn severe pain -Daily physical therapy -Nonweight bearing on R leg -L knee x-ray: severe osteopenia. Sclerotic changes about the posterior proximal tibia may relate to a sclerotic healing response of a prior stress fracture here. no tibial plateau depressed fracture. The sclerosis is perceived on the prior 04/21 study; no interval pathology appreciated between 2 exams. If symptosm worsen consider MRI. 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 sclerosi about right acetabulum -daily physical therapy -PT 05/05: decline in transfers due to limitation from right hip and knee pain. patient still able to tolerate hallway ambulation, no episode of orthostatic hypotension post gait. recommending room/hallway ambulation w/ nursing for AM/ PM care or toileting. Anemia -chronic -monitor with weekly labs -Orthostatic vital signs ordered Abdominal Pain -patient has been complaining of abdominal pain since admission -Colace 100mg PO BID -Miralax daily -Dulcolax every 3 days -Inguinal hernia with unobstructed bowel loop involvement; protruded 04/18 due to straining on toilet. -05/03/16 B/L inguinal hernias reduced today without incidence -Abdominal US 04/01: Gallstones, no acute cholecystitis, no hydronephrosis. trace ascites (see full report) -Abd/pelv CT 03/11: mod b/l pleural effusions and assoc consolidations; tiny probably gallstones within the gallbladder; small to moderate hiatal hernia; R inguinal hernia which contains small loops of bowel, likely small bowel- no evidence of obstruction as oral contrast is noted within R colon. No definite free air, however evaluation for pneumoperitoneum is suboptimal. Moderate to severe constipation with questionable impaction. Prostate gland 4.1cm x 4.6cm. Urinary bladder appears unremarkable. Small amount of fluid within a right inguinal hernia. Sclerosis of right iliac wing. Extensive anasarca. Aneursmal dilatation of ascending thoracic aorta; Currently 4.5 cm. Patient needs repeat Ct imaging every 6 months (July 2016) BPH -Pyridium 200 mg PO TIDPC -Flomax 0.8 mg PO daily -Finasteride 5 mg PO daily -Urology Dr. Hughes on board Onychomycosis -patient had aseptic debridement of toenails x 10 -clotrimazole cream to be applied to feet b/l BID -podiatry consult- help appreciated Sacral decubitus-Resolved -04/19: exam revealed a previously healed decubitus ulcer of right buttocks. Sacral exam was clear. -Wound care following - recommending medihoney covered with bordered telfa dressing to right lower buttocks stage 2 pressure ulcer daily. -Pt is OOB to chair with help from PT daily -Order placed for turning patient Q2H Urinary Tract Infection - urine culture 05/03- no growth - UA 05/05: +nitrates, occasional bacteria Prophylactic Measure -Labs weekly -Lovenox 40mg SC daily -Pepcid 20mg PO BID -A and D ointment TOP Q*H -Patient is homeless. Used to stay with friend, but no longer welcome there. Goal is to walk with cane so he can go to a detention (will not qualify with a walker) DISPO -Reaching out to family in [facility] -Social Work is following up <Jose Wiggins - Last Filed: 05/09/16 14:57> Objective - Vital Signs/Intake and Output Vital Signs (last 24 hours): Temp Pulse Resp BP Pulse Ox 97.8 F 69 20 111/75 95 05/09/16 08:27 05/09/16 08:27 05/09/16 08:27 05/09/16 08:27 05/09/16 08:27 Intake and Output: 05/09/16 05/09/16 06:59 18:59 Intake Total 300 Output Total 601 Balance -301 - Medications Medications: Current Medications Acetaminophen (Tylenol 325mg Tab) 650 mg PO Q6 [facility] Last Admin: 05/09/16 12:23 Dose: Not Given Bisacodyl (Dulcolax) 5 mg PO Q3D [facility] Last Admin: 05/08/16 17:58 Dose: 5 mg Clotrimazole (Lotrimin 1%) 0 gm TOP BID [facility] Last Admin: 05/09/16 10:47 Dose: 1 applic Docusate Sodium (Colace) 100 mg PO BID [facility] Last Admin: 05/09/16 10:41 Dose: Not Given Enoxaparin Sodium (Lovenox) 40 mg SC DAILY [facility] Last Admin: 05/09/16 10:25 Dose: 40 mg Famotidine (Pepcid) 20 mg PO BID [facility] Last Admin: 05/09/16 10:25 Dose: 20 mg Finasteride (Proscar) 5 mg PO DAILY [facility] Last Admin: 05/09/16 10:41 Dose: 5 mg Magnesium Oxide (Mag-Ox) 400 mg PO BID [facility] Last Admin: 05/09/16 12:22 Dose: 400 mg Oxycodone/Acetaminophen (Percocet 5/325 Mg Tab) 1 tab PO Q8H PRN PRN Reason: Pain, moderate (4-7) Stop: 05/09/16 19:11 Last Admin: 05/09/16 10:45 Dose: 1 tab Phenazopyridine HCl (Pyridium) 200 mg PO TIDPC [facility] Last Admin: 05/09/16 14:30 Dose: 200 mg Polyethylene Glycol (Miralax) 17 gm PO DAILY [facility] Last Admin: 05/09/16 10:25 Dose: Not Given Tamsulosin HCl (Flomax) 0.8 mg PO DAILY [facility] Last Admin: 05/09/16 10:24 Dose: 0.8 mg Vitamin A (Vitamin A & D Oint Ud Foilpak) 1 ea TOP Q8H [facility] Last Admin: 05/09/16 10:25 Dose: 1 ea - Labs Labs: 05/08/16 11:39 05/08/16 11:39 Attending/Attestation - Attestation I have personally seen and examined this patient.: Yes I have fully participated in the care of the patient.: Yes I have reviewed all pertinent clinical information, including history, physical exam and plan: Yes Notes (Text): 05/09/16 14:56 Patient was seen and examined at bedside with the resident excess complains of right-sided pain Follow-up x-ray of the right knee ordered by orthopedics Continue current management Discussed the plan of care with the resident
[2016-05-09] MEDS: Clotrimazole 1% Cream 15 GM TUBE TOP SCH ×2 (10:47→17:45)
--- NOTE | 2016-05-09 11:05 | RAD ---
PROCEDURE: Right Knee Radiographs. HISTORY: f/u stress fx, may remove knee immobilizer COMPARISON: 04/21/2016 and 05/02/2016. FINDINGS: BONES: No acute fracture. Status post ORIF old patellar fracture. JOINTS: Normal. No osteoarthritis. JOINT EFFUSION: None. OTHER FINDINGS: None. IMPRESSION: No significant interval change compared to the prior examination(s).
--- NOTE | 2016-05-09 11:59 | CP.PCM.PN ---
Subjective - Date & Time of Evaluation Date of Evaluation: 05/09/16 Time of Evaluation: 13:00 - Subjective Subjective: Patient still complaining of pain in his knee, along with chronic hip pain. Objective - Vital Signs/Intake and Output Vital Signs (last 24 hours): Temp Pulse Resp BP Pulse Ox 97.8 F 69 20 111/75 95 05/09/16 08:27 05/09/16 08:27 05/09/16 08:27 05/09/16 08:27 05/09/16 08:27 - Medications Medications: Current Medications Acetaminophen (Tylenol 325mg Tab) 650 mg PO Q6 [facility] Last Admin: 05/09/16 05:25 Dose: 650 mg Bisacodyl (Dulcolax) 5 mg PO Q3D [facility] Last Admin: 05/08/16 17:58 Dose: 5 mg Clotrimazole (Lotrimin 1%) 0 gm TOP BID [facility] Last Admin: 05/09/16 10:47 Dose: 1 applic Docusate Sodium (Colace) 100 mg PO BID [facility] Last Admin: 05/09/16 10:41 Dose: Not Given Enoxaparin Sodium (Lovenox) 40 mg SC DAILY [facility] Last Admin: 05/09/16 10:25 Dose: 40 mg Famotidine (Pepcid) 20 mg PO BID [facility] Last Admin: 05/09/16 10:25 Dose: 20 mg Finasteride (Proscar) 5 mg PO DAILY [facility] Last Admin: 05/09/16 10:41 Dose: 5 mg Magnesium Oxide (Mag-Ox) 400 mg PO BID [facility] Oxycodone/Acetaminophen (Percocet 5/325 Mg Tab) 1 tab PO Q8H PRN PRN Reason: Pain, moderate (4-7) Stop: 05/09/16 19:11 Last Admin: 05/09/16 10:45 Dose: 1 tab Phenazopyridine HCl (Pyridium) 200 mg PO TIDPC [facility] Last Admin: 05/09/16 10:41 Dose: 200 mg Polyethylene Glycol (Miralax) 17 gm PO DAILY [facility] Last Admin: 05/09/16 10:25 Dose: Not Given Tamsulosin HCl (Flomax) 0.8 mg PO DAILY [facility] Last Admin: 05/09/16 10:24 Dose: 0.8 mg Vitamin A (Vitamin A & D Oint Ud Foilpak) 1 ea TOP Q8H [facility] Last Admin: 05/09/16 10:25 Dose: 1 ea - Labs Labs: 05/08/16 11:39 05/08/16 11:39 - Constitutional Appears: Well, No Acute Distress - Extremities Exam Additional comments: RLE: knee immobilizer intact. +ROM ankle/toes, sensation intact +DP pulse, calves soft NT neg homans - Neurological Exam Neurological Exam: Alert, Awake, Oriented x3 - Skin Skin Exam: Dry, Intact, Normal Color, Warm Assessment and Plan (1) Acetabular protrusion Assessment & Plan: stable no acute changes continue NWB due to tibial plateau stress fracture Status: Acute (2) Fracture of tibia, proximal, right, closed Assessment & Plan: continue NWB at this time forge tender at fracture site knee immobilizer orthopedically stable, no ortho intervention indicated at this time d/w Dr. Pino, agrees with above Status: Chronic Radiology Interpretation - Information Systems Consultant Information Systems Consultant:: Radiologist - Radiology Interpretation #2 Interpretation: Right knee xrays 05/09/2016 AP/lat show less sclerosis when compared to prior films. NO change in position of fracture, no further depression appreciated. - Radiology Interpretation #3 Interpretation: atient Name / ID : [id number] / [id number] Exam Date : 05/09/2016 09:41:52 ( Approved ) Study Comment : Sex / Age : M / 71Y Creator : Omid Jon MD Dictator : Oimd Jon MD Yard Crane Operator : Facilities Maintenance Worker : Omid Jon MD Approver2 : Report Date : 05/09/2016 10:59:48 My Comment : PROCEDURE: Right Knee Radiographs. HISTORY: f/u stress fx, may remove knee immobilizer COMPARISON: 04/21/2016 and 05/02/2016. FINDINGS: BONES: No acute fracture. Status post ORIF old patellar fracture. JOINTS: Normal. No osteoarthritis. JOINT EFFUSION: None. OTHER FINDINGS: None. IMPRESSION: No significant interval change compared to the prior examination(s). Review of Systems - Review of Systems Constitutional: no symptoms reported Ears, Nose, Mouth, Throat: no symptoms reported Respiratory: No Resp. distress Cardiology: no symptoms reported Gastrointestinal/Abdominal: no symptoms reported Genitourinary: no symptoms reported Musculoskeletal: see HPI Skin: no symptoms reported Neurological: no symptoms reported
[2016-05-09] MEDS: Magnesium Oxide 400 mg Tab UD PO SCH ×2 (12:22→17:41)
[2016-05-10] MEDS: Vitamins A & D Oint UD Foilpak TOP SCH ×3 (00:53→18:12)
[2016-05-10] MEDS: Enoxaparin 40 mg Syringe SC SCH (10:16)
[2016-05-10] MEDS: Magnesium Oxide 400 mg Tab UD PO SCH ×2 (10:18→18:12)
[2016-05-10] MEDS: POLYETHYLENE GLYCOL 3350 17 GM/Dose PACKET PO SCH (10:18)
[2016-05-10] MEDS: Clotrimazole 1% Cream 15 GM TUBE TOP SCH ×2 (10:19→18:13)
--- NOTE | 2016-05-10 12:41 | CP.PCM.PN ---
<Jessie Luna - Last Filed: 05/10/16 12:36> Subjective - Date & Time of Evaluation Date of Evaluation: 05/10/16 Time of Evaluation: 07:35 - Subjective Subjective: PGY1 on Dr. Wiggins's service: Patient seen and examined. Patient states he ate breakfast this morning and denies nausea/ vomiting/ diarrhea/ constipation. Patient reports BM last evening. Patient with same complaint of pain in right hip and leg. Patient states he walked with physical therapy yesterday and wants to continue exercising with them. Objective - Vital Signs/Intake and Output Vital Signs (last 24 hours): Temp Pulse Resp BP Pulse Ox 98.1 F 74 19 94/60 L 94 L 05/10/16 08:43 05/10/16 08:56 05/10/16 08:43 05/10/16 08:43 05/10/16 08:43 Intake and Output: 05/10/16 05/10/16 06:59 18:59 Intake Total 300 300 Output Total 400 500 Balance -100 -200 - Medications Medications: Current Medications Acetaminophen (Tylenol 325mg Tab) 650 mg PO Q6 [facility] Last Admin: 05/10/16 06:25 Dose: 650 mg Bisacodyl (Dulcolax) 5 mg PO Q3D [facility] Last Admin: 05/08/16 17:58 Dose: 5 mg Clotrimazole (Lotrimin 1%) 0 gm TOP BID [facility] Last Admin: 05/10/16 10:19 Dose: 1 applic Docusate Sodium (Colace) 100 mg PO BID [facility] Last Admin: 05/10/16 10:19 Dose: 100 mg Enoxaparin Sodium (Lovenox) 40 mg SC DAILY [facility] Last Admin: 05/10/16 10:16 Dose: 40 mg Famotidine (Pepcid) 20 mg PO BID [facility] Last Admin: 05/10/16 10:17 Dose: 20 mg Finasteride (Proscar) 5 mg PO DAILY [facility] Last Admin: 05/10/16 10:18 Dose: 5 mg Magnesium Oxide (Mag-Ox) 400 mg PO BID [facility] Last Admin: 05/10/16 10:18 Dose: 400 mg Phenazopyridine HCl (Pyridium) 200 mg PO TIDPC [facility] Last Admin: 05/10/16 10:18 Dose: 200 mg Polyethylene Glycol (Miralax) 17 gm PO DAILY [facility] Last Admin: 05/10/16 10:18 Dose: 17 gm Tamsulosin HCl (Flomax) 0.8 mg PO DAILY [facility] Last Admin: 05/10/16 10:22 Dose: 0.8 mg Vitamin A (Vitamin A & D Oint Ud Foilpak) 1 ea TOP Q8H [facility] Last Admin: 05/10/16 10:17 Dose: 1 ea - Labs Labs: 05/08/16 11:39 05/08/16 11:39 - Constitutional Appears: Non-toxic, No Acute Distress, Chronically Ill - Head Exam Head Exam: ATRAUMATIC, NORMOCEPHALIC - Eye Exam Eye Exam: EOMI - ENT Exam ENT Exam: Mucous Membranes Moist - Respiratory Exam Respiratory Exam: Clear to Ausculation Bilateral, NORMAL BREATHING PATTERN - Cardiovascular Exam Cardiovascular Exam: +S1, +S2 - GI/Abdominal Exam GI & Abdominal Exam: Soft, Normal Bowel Sounds. absent: Tenderness - Extremities Exam Additional comments: tenderness to palpation right hip right leg tenderness no edema right knee in immobilizer - Neurological Exam Neurological Exam: Alert, Awake - Skin Skin Exam: Dry, Warm Assessment and Plan - Assessment and Plan (Free Text) Assessment: Fracture of tibia, proximal, right, closed -05/09- right knee xrays ordered by orthopedics team- No acute fracture. Status post ORIF old patellar fracture No significant interval change compared to the prior examination Will follow up recommendations from orthopedics team -05/05:Ortho Dr. Pino and Jayce West [facility] following- no orthopedic intervention indicated at this time, strict NWB, PT/OT -Impaction/insufficiency fracture, lateral aspect proximal tibia, non operative , treated with strict NWB and immobilization -At least 6 weeks old by imaging -Tylenol 650 mg PO Q6 PRN mild pain -Oxycodone 5mg q8 prn severe pain -Daily physical therapy -Nonweight bearing on R leg -L knee x-ray: severe osteopenia. Sclerotic changes about the posterior proximal tibia may relate to a sclerotic healing response of a prior stress fracture here. no tibial plateau depressed fracture. The sclerosis is perceived on the prior 04/21 study; no interval pathology appreciated between 2 exams. If symptosm worsen consider MRI. 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 sclerosi about right acetabulum -daily physical therapy -PT 05/05: decline in transfers due to limitation from right hip and knee pain. patient still able to tolerate hallway ambulation, no episode of orthostatic hypotension post gait. recommending room/hallway ambulation w/ nursing for AM/ PM care or toileting. - PT 05/09: decline in function limited by persisting right groin/ hip and knee pain. patient still recommended for daily out of bed during am/pm care. cleared for ambulation in the room with standard walker non weight bearing right lower extremity Anemia -chronic -monitor with weekly labs -Orthostatic vital signs ordered Abdominal Pain -patient has been complaining of abdominal pain since admission -Colace 100mg PO BID -Miralax daily -Dulcolax every 3 days -Inguinal hernia with unobstructed bowel loop involvement; protruded 04/18 due to straining on toilet. -05/03/16 B/L inguinal hernias reduced today without incidence -Abdominal US 04/01: Gallstones, no acute cholecystitis, no hydronephrosis. trace ascites (see full report) -Abd/pelv CT 03/11: mod b/l pleural effusions and assoc consolidations; tiny probably gallstones within the gallbladder; small to moderate hiatal hernia; R inguinal hernia which contains small loops of bowel, likely small bowel- no evidence of obstruction as oral contrast is noted within R colon. No definite free air, however evaluation for pneumoperitoneum is suboptimal. Moderate to severe constipation with questionable impaction. Prostate gland 4.1cm x 4.6cm. Urinary bladder appears unremarkable. Small amount of fluid within a right inguinal hernia. Sclerosis of right iliac wing. Extensive anasarca. Aneursmal dilatation of ascending thoracic aorta; Currently 4.5 cm. Patient needs repeat Ct imaging every 6 months (July 2016) BPH -Pyridium 200 mg PO TIDPC -Flomax 0.8 mg PO daily -Finasteride 5 mg PO daily -Urology Dr. Hughes on board Onychomycosis -patient had aseptic debridement of toenails x 10 -clotrimazole cream to be applied to feet b/l BID -podiatry consult- help appreciated Sacral decubitus-Resolved -04/19: exam revealed a previously healed decubitus ulcer of right buttocks. Sacral exam was clear. -Wound care following - recommending medihoney covered with bordered telfa dressing to right lower buttocks stage 2 pressure ulcer daily. -Pt is OOB to chair with help from PT daily -Order placed for turning patient Q2H Urinary Tract Infection - urine culture 05/03- no growth - UA 05/05: +nitrates, occasional bacteria Prophylactic Measure -Labs weekly -Lovenox 40mg SC daily -Pepcid 20mg PO BID -A and D ointment TOP Q*H -Patient is homeless. Used to stay with friend, but no longer welcome there. Goal is to walk with cane so he can go to a custodial (will not qualify with a walker) DISPO -Reaching out to family in [facility] -Social Work is following up <Jose Wiggins - Last Filed: 05/10/16 15:20> Objective - Vital Signs/Intake and Output Vital Signs (last 24 hours): Temp Pulse Resp BP Pulse Ox 98.1 F 74 19 94/60 L 94 L 05/10/16 08:43 05/10/16 08:56 05/10/16 08:43 05/10/16 08:43 05/10/16 08:43 Intake and Output: 05/10/16 05/10/16 06:59 18:59 Intake Total 300 300 Output Total 400 500 Balance -100 -200 - Medications Medications: Current Medications Acetaminophen (Tylenol 325mg Tab) 650 mg PO Q6 [facility] Last Admin: 05/10/16 13:16 Dose: Not Given Bisacodyl (Dulcolax) 5 mg PO Q3D [facility] Last Admin: 05/08/16 17:58 Dose: 5 mg Clotrimazole (Lotrimin 1%) 0 gm TOP BID [facility] Last Admin: 05/10/16 10:19 Dose: 1 applic Docusate Sodium (Colace) 100 mg PO BID [facility] Last Admin: 05/10/16 10:19 Dose: 100 mg Enoxaparin Sodium (Lovenox) 40 mg SC DAILY [facility] Last Admin: 05/10/16 10:16 Dose: 40 mg Famotidine (Pepcid) 20 mg PO BID [facility] Last Admin: 05/10/16 10:17 Dose: 20 mg Finasteride (Proscar) 5 mg PO DAILY [facility] Last Admin: 05/10/16 10:18 Dose: 5 mg Magnesium Oxide (Mag-Ox) 400 mg PO BID [facility] Last Admin: 05/10/16 10:18 Dose: 400 mg Phenazopyridine HCl (Pyridium) 200 mg PO TIDPC [facility] Last Admin: 05/10/16 13:59 Dose: 200 mg Polyethylene Glycol (Miralax) 17 gm PO DAILY [facility] Last Admin: 05/10/16 10:18 Dose: 17 gm Tamsulosin HCl (Flomax) 0.8 mg PO DAILY [facility] Last Admin: 05/10/16 10:22 Dose: 0.8 mg Vitamin A (Vitamin A & D Oint Ud Foilpak) 1 ea TOP Q8H [facility] Last Admin: 05/10/16 10:17 Dose: 1 ea - Labs Labs: 05/08/16 11:39 05/08/16 11:39 Attending/Attestation - Attestation I have personally seen and examined this patient.: Yes I have fully participated in the care of the patient.: Yes I have reviewed all pertinent clinical information, including history, physical exam and plan: Yes Notes (Text): 05/10/16 15:18 Patient was seen and examined at bedside with the resident Continue pain management Continue physical therapy daily Discussed the plan of care with the resident
[2016-05-11] MEDS: Vitamins A & D Oint UD Foilpak TOP SCH ×3 (00:54→18:03)
[2016-05-11] MEDS: Enoxaparin 40 mg Syringe SC SCH (10:44)
[2016-05-11] MEDS: Magnesium Oxide 400 mg Tab UD PO SCH ×2 (10:46→18:04)
[2016-05-11] MEDS: POLYETHYLENE GLYCOL 3350 17 GM/Dose PACKET PO SCH (10:47)
[2016-05-11] MEDS: Clotrimazole 1% Cream 15 GM TUBE TOP SCH ×2 (10:50→18:05)
--- NOTE | 2016-05-11 14:01 | CP.PCM.PN ---
<Jessie Luna - Last Filed: 05/11/16 13:58> Subjective - Date & Time of Evaluation Date of Evaluation: 05/11/16 Time of Evaluation: 07:55 - Subjective Subjective: PGY1 on Dr. Wiggins's service: Patient seen and examined. Patient complaining of straining to have bowel movement last night as well as left sided abdominal pain. Patient stating that his left heel is bothering him today. Patient to remain NWB to [facility]. Objective - Vital Signs/Intake and Output Vital Signs (last 24 hours): Temp Pulse Resp BP Pulse Ox 97.9 F 72 20 104/63 97 05/11/16 08:21 05/11/16 08:21 05/11/16 08:21 05/11/16 08:21 05/11/16 08:21 Intake and Output: 05/11/16 05/11/16 06:59 18:59 Intake Total 600 Output Total 1100 Balance -500 - Medications Medications: Current Medications Acetaminophen (Tylenol 325mg Tab) 650 mg PO Q6 [facility] Last Admin: 05/11/16 12:03 Dose: 650 mg Bisacodyl (Dulcolax) 5 mg PO Q3D [facility] Last Admin: 05/08/16 17:58 Dose: 5 mg Clotrimazole (Lotrimin 1%) 0 gm TOP BID [facility] Last Admin: 05/11/16 10:50 Dose: 1 applic Docusate Sodium (Colace) 100 mg PO BID [facility] Last Admin: 05/11/16 10:44 Dose: 100 mg Enoxaparin Sodium (Lovenox) 40 mg SC DAILY [facility] Last Admin: 05/11/16 10:44 Dose: 40 mg Famotidine (Pepcid) 20 mg PO BID [facility] Last Admin: 05/11/16 10:44 Dose: 20 mg Finasteride (Proscar) 5 mg PO DAILY [facility] Last Admin: 05/11/16 10:46 Dose: 5 mg Magnesium Oxide (Mag-Ox) 400 mg PO BID [facility] Last Admin: 05/11/16 10:46 Dose: 400 mg Phenazopyridine HCl (Pyridium) 200 mg PO TIDPC [facility] Last Admin: 05/11/16 10:46 Dose: 200 mg Polyethylene Glycol (Miralax) 17 gm PO DAILY [facility] Last Admin: 05/11/16 10:47 Dose: Not Given Tamsulosin HCl (Flomax) 0.8 mg PO DAILY [facility] Last Admin: 05/11/16 10:43 Dose: 0.8 mg Vitamin A (Vitamin A & D Oint Ud Foilpak) 1 ea TOP Q8H [facility] Last Admin: 05/11/16 10:47 Dose: 1 ea - Labs Labs: 05/08/16 11:39 05/08/16 11:39 - Constitutional Appears: Non-toxic, No Acute Distress - Head Exam Head Exam: ATRAUMATIC - Eye Exam Eye Exam: EOMI - ENT Exam ENT Exam: Mucous Membranes Moist - Respiratory Exam Respiratory Exam: Clear to Ausculation Bilateral - Cardiovascular Exam Cardiovascular Exam: +S1, +S2 - GI/Abdominal Exam GI & Abdominal Exam: Soft, Tenderness (mild left lower quadrant ), Normal Bowel Sounds - Exam Additional comments: inguinal hernia - Extremities Exam Additional comments: right knee immobilizer in place tenderness to palpation left heel - Neurological Exam Neurological Exam: Alert, Awake - Psychiatric Exam Psychiatric exam: Normal Affect - Skin Skin Exam: Dry, Warm Assessment and Plan - Assessment and Plan (Free Text) Assessment: Fracture of tibia, proximal, right, closed -05/11- per ortho team: patient to remain non-weight bearing to right lower extremity -05/09- right knee xrays ordered by orthopedics team- No acute fracture. Status post ORIF old patellar fracture No significant interval change compared to the prior examination Will follow up recommendations from orthopedics team -05/05:Ortho Dr. Pino and Jayce West [facility] following- no orthopedic intervention indicated at this time, strict NWB, PT/OT -Impaction/insufficiency fracture, lateral aspect proximal tibia, non operative , treated with strict NWB and immobilization -At least 6 weeks old by imaging -Tylenol 650 mg PO Q6 PRN mild pain -Oxycodone 5mg q8 prn severe pain -Daily physical therapy -Nonweight bearing on R leg -L knee x-ray: severe osteopenia. Sclerotic changes about the posterior proximal tibia may relate to a sclerotic healing response of a prior stress fracture here. no tibial plateau depressed fracture. The sclerosis is perceived on the prior 04/21 study; no interval pathology appreciated between 2 exams. If symptosm worsen consider MRI. 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 sclerosi about right acetabulum -daily physical therapy -PT 05/05: decline in transfers due to limitation from right hip and knee pain. patient still able to tolerate hallway ambulation, no episode of orthostatic hypotension post gait. recommending room/hallway ambulation w/ nursing for AM/ PM care or toileting. - PT 05/09: decline in function limited by persisting right groin/ hip and knee pain. patient still recommended for daily out of bed during am/pm care. cleared for ambulation in the room with standard walker non weight bearing right lower extremity Anemia -chronic -monitor with weekly labs -Orthostatic vital signs ordered Abdominal Pain -patient with multiple soft stools- will stop miralax for now -patient has been complaining of abdominal pain since admission -Colace 100mg PO BID -Dulcolax every 3 days -Inguinal hernia with unobstructed bowel loop involvement; protruded 04/18 due to straining on toilet. -05/03/16 B/L inguinal hernias reduced today without incidence -Abdominal US 04/01: Gallstones, no acute cholecystitis, no hydronephrosis. trace ascites (see full report) -Abd/pelv CT 03/11: mod b/l pleural effusions and assoc consolidations; tiny probably gallstones within the gallbladder; small to moderate hiatal hernia; R inguinal hernia which contains small loops of bowel, likely small bowel- no evidence of obstruction as oral contrast is noted within R colon. No definite free air, however evaluation for pneumoperitoneum is suboptimal. Moderate to severe constipation with questionable impaction. Prostate gland 4.1cm x 4.6cm. Urinary bladder appears unremarkable. Small amount of fluid within a right inguinal hernia. Sclerosis of right iliac wing. Extensive anasarca. Aneursmal dilatation of ascending thoracic aorta; Currently 4.5 cm. Patient needs repeat Ct imaging every 6 months (July 2016) BPH -Pyridium 200 mg PO TIDPC -Flomax 0.8 mg PO daily -Finasteride 5 mg PO daily -Urology Dr. Hughes on board Onychomycosis -patient had aseptic debridement of toenails x 10 -clotrimazole cream to be applied to feet b/l BID -podiatry consult- help appreciated Sacral decubitus-Resolved -04/19: exam revealed a previously healed decubitus ulcer of right buttocks. Sacral exam was clear. -Wound care following - recommending medihoney covered with bordered telfa dressing to right lower buttocks stage 2 pressure ulcer daily. -Pt is OOB to chair with help from PT daily -Order placed for turning patient Q2H Urinary Tract Infection - urine culture 05/03- no growth - UA 05/05: +nitrates, occasional bacteria Prophylactic Measure -Labs weekly -Lovenox 40mg SC daily -Pepcid 20mg PO BID -A and D ointment TOP Q*H -Patient is homeless. Used to stay with friend, but no longer welcome there. Goal is to walk with cane so he can go to a senior living (will not qualify with a walker) -patient will need to work with PT frequently DISPO -Reaching out to family in [facility] -Social Work is following up <Jose Wiggins - Last Filed: 05/11/16 14:32> Objective - Vital Signs/Intake and Output Vital Signs (last 24 hours): Temp Pulse Resp BP Pulse Ox 97.9 F 72 20 104/63 97 05/11/16 08:21 05/11/16 08:21 05/11/16 08:21 05/11/16 08:21 05/11/16 08:21 Intake and Output: 05/11/16 05/11/16 06:59 18:59 Intake Total 600 Output Total 1100 Balance -500 - Medications Medications: Current Medications Acetaminophen (Tylenol 325mg Tab) 650 mg PO Q6 [facility] Last Admin: 05/11/16 12:03 Dose: 650 mg Bisacodyl (Dulcolax) 5 mg PO Q3D [facility] Last Admin: 05/08/16 17:58 Dose: 5 mg Clotrimazole (Lotrimin 1%) 0 gm TOP BID [facility] Last Admin: 05/11/16 10:50 Dose: 1 applic Docusate Sodium (Colace) 100 mg PO BID [facility] Last Admin: 05/11/16 10:44 Dose: 100 mg Enoxaparin Sodium (Lovenox) 40 mg SC DAILY [facility] Last Admin: 05/11/16 10:44 Dose: 40 mg Famotidine (Pepcid) 20 mg PO BID [facility] Last Admin: 05/11/16 10:44 Dose: 20 mg Finasteride (Proscar) 5 mg PO DAILY [facility] Last Admin: 05/11/16 10:46 Dose: 5 mg Magnesium Oxide (Mag-Ox) 400 mg PO BID [facility] Last Admin: 05/11/16 10:46 Dose: 400 mg Phenazopyridine HCl (Pyridium) 200 mg PO TIDPC [facility] Last Admin: 05/11/16 14:10 Dose: 200 mg Polyethylene Glycol (Miralax) 17 gm PO DAILY [facility] Last Admin: 05/11/16 10:47 Dose: Not Given Tamsulosin HCl (Flomax) 0.8 mg PO DAILY [facility] Last Admin: 05/11/16 10:43 Dose: 0.8 mg Vitamin A (Vitamin A & D Oint Ud Foilpak) 1 ea TOP Q8H [facility] Last Admin: 05/11/16 10:47 Dose: 1 ea - Labs Labs: 05/08/16 11:39 05/08/16 11:39 Attending/Attestation - Attestation I have personally seen and examined this patient.: Yes I have fully participated in the care of the patient.: Yes I have reviewed all pertinent clinical information, including history, physical exam and plan: Yes Notes (Text): 05/11/16 14:32 Patient was seen and examined at bedside with the resident Patient still complains of pain in the right hip We will continue physical therapy daily No intervention suggested by orthopedics
[2016-05-11] MEDS: Bisacodyl 5mg EC Tab PO SCH (18:05)
[2016-05-12] MEDS: Vitamins A & D Oint UD Foilpak TOP SCH ×3 (01:45→18:43)
[2016-05-12] MEDS: Enoxaparin 40 mg Syringe SC SCH (10:27)
[2016-05-12] MEDS: Magnesium Oxide 400 mg Tab UD PO SCH ×2 (10:27→18:16)
[2016-05-12] MEDS: Clotrimazole 1% Cream 15 GM TUBE TOP SCH ×2 (10:29→18:20)
--- NOTE | 2016-05-12 15:45 | CP.PCM.PN ---
<Jessie Luna - Last Filed: 05/12/16 15:39> Subjective - Date & Time of Evaluation Date of Evaluation: 05/12/16 Time of Evaluation: 09:25 - Subjective Subjective: PGY1 on Dr Wiggins's service: Patient seen and examined. Patient still with complaint of left heel pain, more tenderness over insertion of achilles tendon. Patient still with poor appetite. Objective - Vital Signs/Intake and Output Vital Signs (last 24 hours): Temp Pulse Resp BP Pulse Ox 98.0 F 70 20 107/65 95 05/12/16 08:00 05/12/16 08:00 05/12/16 08:00 05/12/16 08:00 05/12/16 08:00 Intake and Output: 05/12/16 05/12/16 06:59 18:59 Intake Total 500 Output Total 550 Balance -50 - Medications Medications: Current Medications Acetaminophen (Tylenol 325mg Tab) 650 mg PO Q6 [facility] Last Admin: 05/12/16 14:18 Dose: 650 mg Bisacodyl (Dulcolax) 5 mg PO Q3D [facility] Last Admin: 05/11/16 18:05 Dose: Not Given Clotrimazole (Lotrimin 1%) 0 gm TOP BID [facility] Last Admin: 05/12/16 10:29 Dose: 1 applic Docusate Sodium (Colace) 100 mg PO BID [facility] Last Admin: 05/12/16 10:29 Dose: Not Given Enoxaparin Sodium (Lovenox) 40 mg SC DAILY [facility] Last Admin: 05/12/16 10:27 Dose: 40 mg Famotidine (Pepcid) 20 mg PO BID [facility] Last Admin: 05/12/16 10:27 Dose: 20 mg Finasteride (Proscar) 5 mg PO DAILY [facility] Last Admin: 05/12/16 10:27 Dose: 5 mg Magnesium Oxide (Mag-Ox) 400 mg PO BID [facility] Last Admin: 05/12/16 10:27 Dose: 400 mg Phenazopyridine HCl (Pyridium) 200 mg PO TIDPC [facility] Last Admin: 05/12/16 14:17 Dose: 200 mg Polyethylene Glycol (Miralax) 17 gm PO DAILY [facility] Last Admin: 05/11/16 10:47 Dose: Not Given Tamsulosin HCl (Flomax) 0.8 mg PO DAILY [facility] Last Admin: 05/12/16 10:26 Dose: 0.8 mg Vitamin A (Vitamin A & D Oint Ud Foilpak) 1 ea TOP Q8H [facility] Last Admin: 05/12/16 10:26 Dose: 1 ea - Labs Labs: 05/08/16 11:39 05/08/16 11:39 - Constitutional Appears: No Acute Distress, Chronically Ill - Head Exam Head Exam: ATRAUMATIC - Eye Exam Eye Exam: EOMI - ENT Exam ENT Exam: Mucous Membranes Dry - Respiratory Exam Respiratory Exam: Clear to Ausculation Bilateral, NORMAL BREATHING PATTERN - Cardiovascular Exam Cardiovascular Exam: +S1, +S2 - GI/Abdominal Exam GI & Abdominal Exam: Soft, Tenderness (diffuse), Normal Bowel Sounds - Extremities Exam Additional comments: right lower extremity in knee immobilizer left heel with point tenderness at insertion of achilles - Neurological Exam Neurological Exam: Alert, Awake - Psychiatric Exam Psychiatric exam: Depressed - Skin Skin Exam: Warm Assessment and Plan - Assessment and Plan (Free Text) Assessment: Fracture of tibia, proximal, right, closed -05/11- per ortho team: patient to remain non-weight bearing to right lower extremity -05/09- right knee xrays ordered by orthopedics team- No acute fracture. Status post ORIF old patellar fracture No significant interval change compared to the prior examination Will follow up recommendations from orthopedics team -05/05:Ortho Dr. Pino and Jayce West PA following- no orthopedic intervention indicated at this time, strict NWB, PT/OT -Impaction/insufficiency fracture, lateral aspect proximal tibia, non operative , treated with strict NWB and immobilization -At least 6 weeks old by imaging -Tylenol 650 mg PO Q6 PRN mild pain -Oxycodone 5mg q8 prn severe pain -Daily physical therapy -Nonweight bearing on R leg -L knee x-ray: severe osteopenia. Sclerotic changes about the posterior proximal tibia may relate to a sclerotic healing response of a prior stress fracture here. no tibial plateau depressed fracture. The sclerosis is perceived on the prior 04/21 study; no interval pathology appreciated between 2 exams. If symptoms worsen consider MRI. 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 sclerosi about right acetabulum -daily physical therapy -PT 05/05: decline in transfers due to limitation from right hip and knee pain. patient still able to tolerate hallway ambulation, no episode of orthostatic hypotension post gait. recommending room/hallway ambulation w/ nursing for AM/ PM care or toileting. - PT 05/09: decline in function limited by persisting right groin/ hip and knee pain. patient still recommended for daily out of bed during am/pm care. cleared for ambulation in the room with standard walker non weight bearing right lower extremity -PT 05/10: mild decline in transfers due to pain in right knee and hip. NWB to RLE. Patient with episode of hypotension post ambulation- no syncope. Anemia -chronic -monitor with weekly labs -Orthostatic vital signs ordered Abdominal Pain -patient with multiple soft stools- will stop miralax for now -patient has been complaining of abdominal pain since admission -Colace 100mg PO BID -Dulcolax every 3 days -Inguinal hernia with unobstructed bowel loop involvement; protruded 04/18 due to straining on toilet. -05/03/16 B/L inguinal hernias reduced today without incidence -Abdominal US 04/01: Gallstones, no acute cholecystitis, no hydronephrosis. trace ascites (see full report) -Abd/pelv CT 03/11: mod b/l pleural effusions and assoc consolidations; tiny probably gallstones within the gallbladder; small to moderate hiatal hernia; R inguinal hernia which contains small loops of bowel, likely small bowel- no evidence of obstruction as oral contrast is noted within R colon. No definite free air, however evaluation for pneumoperitoneum is suboptimal. Moderate to severe constipation with questionable impaction. Prostate gland 4.1cm x 4.6cm. Urinary bladder appears unremarkable. Small amount of fluid within a right inguinal hernia. Sclerosis of right iliac wing. Extensive anasarca. Aneursmal dilatation of ascending thoracic aorta; Currently 4.5 cm. Patient needs repeat Ct imaging every 6 months (July 2016) BPH -Pyridium 200 mg PO TIDPC -Flomax 0.8 mg PO daily -Finasteride 5 mg PO daily -Urology Dr. Hughes on board Onychomycosis -patient had aseptic debridement of toenails x 10 -clotrimazole cream to be applied to feet b/l BID -podiatry consult- help appreciated Sacral decubitus-Resolved -04/19: exam revealed a previously healed decubitus ulcer of right buttocks. Sacral exam was clear. -Wound care following - recommending medihoney covered with bordered telfa dressing to right lower buttocks stage 2 pressure ulcer daily. -Pt is OOB to chair with help from PT daily -Order placed for turning patient Q2H Urinary Tract Infection - urine culture 05/03- no growth - UA 05/05: +nitrates, occasional bacteria Prophylactic Measure -Labs weekly -Lovenox 40mg SC daily -Pepcid 20mg PO BID -A and D ointment TOP Q*H -Patient is homeless. Used to stay with friend, but no longer welcome there. Goal is to walk with cane so he can go to a group home (will not qualify with a walker) -patient will need to work with PT frequently DISPO -Reaching out to family in [facility] -Social Work is following up <Jose Wiggins - Last Filed: 05/12/16 16:24> Objective - Vital Signs/Intake and Output Vital Signs (last 24 hours): Temp Pulse Resp BP Pulse Ox 97.9 F 75 20 109/69 95 05/12/16 16:01 05/12/16 16:01 05/12/16 16:01 05/12/16 16:01 05/12/16 16:01 Intake and Output: 05/12/16 05/12/16 06:59 18:59 Intake Total 500 500 Output Total 550 Balance -50 500 - Medications Medications: Current Medications Acetaminophen (Tylenol 325mg Tab) 650 mg PO Q6 [facility] Last Admin: 05/12/16 14:18 Dose: 650 mg Bisacodyl (Dulcolax) 5 mg PO Q3D [facility] Last Admin: 05/11/16 18:05 Dose: Not Given Clotrimazole (Lotrimin 1%) 0 gm TOP BID [facility] Last Admin: 05/12/16 10:29 Dose: 1 applic Docusate Sodium (Colace) 100 mg PO BID [facility] Last Admin: 05/12/16 10:29 Dose: Not Given Enoxaparin Sodium (Lovenox) 40 mg SC DAILY [facility] Last Admin: 05/12/16 10:27 Dose: 40 mg Famotidine (Pepcid) 20 mg PO BID [facility] Last Admin: 05/12/16 10:27 Dose: 20 mg Finasteride (Proscar) 5 mg PO DAILY [facility] Last Admin: 05/12/16 10:27 Dose: 5 mg Magnesium Oxide (Mag-Ox) 400 mg PO BID [facility] Last Admin: 05/12/16 10:27 Dose: 400 mg Phenazopyridine HCl (Pyridium) 200 mg PO TIDPC [facility] Last Admin: 05/12/16 14:17 Dose: 200 mg Polyethylene Glycol (Miralax) 17 gm PO DAILY [facility] Last Admin: 05/11/16 10:47 Dose: Not Given Tamsulosin HCl (Flomax) 0.8 mg PO DAILY [facility] Last Admin: 05/12/16 10:26 Dose: 0.8 mg Vitamin A (Vitamin A & D Oint Ud Foilpak) 1 ea TOP Q8H [facility] Last Admin: 05/12/16 10:26 Dose: 1 ea - Labs Labs: 05/08/16 11:39 05/08/16 11:39 Attending/Attestation - Attestation I have personally seen and examined this patient.: Yes I have fully participated in the care of the patient.: Yes I have reviewed all pertinent clinical information, including history, physical exam and plan: Yes Notes (Text): 05/12/16 16:19 Patient was seen and examined at bedside with the resident This is no change in clinical condition Continue current management Continue physical therapy daily Discharge planning when patient is physically stronger
--- NOTE | 2016-05-12 21:24 | CP.PCM.PN ---
<Lavell Orr - Last Filed: 05/13/16 00:05> Subjective - Date & Time of Evaluation Date of Evaluation: 05/13/16 Time of Evaluation: 05:10 - Subjective Subjective: Patient seen and examined at bedside this AM; denies any acute complaints; denies fevers/chills, HALLMAN, CP, SOB, abdominal pain, N/V/D, dysuria/freq/urg, or depression/anxiety, or AV hallucinations. Objective - Vital Signs/Intake and Output Vital Signs (last 24 hours): Temp Pulse Resp BP Pulse Ox 97.9 F 75 20 109/69 95 05/12/16 16:01 05/12/16 16:01 05/12/16 16:01 05/12/16 16:01 05/12/16 16:01 Intake and Output: 05/12/16 05/13/16 18:59 06:59 Intake Total 500 Balance 500 - Medications Medications: Current Medications Acetaminophen (Tylenol 325mg Tab) 650 mg PO Q6 [facility] Last Admin: 05/12/16 18:16 Dose: 650 mg Bisacodyl (Dulcolax) 5 mg PO Q3D [facility] Last Admin: 05/11/16 18:05 Dose: Not Given Clotrimazole (Lotrimin 1%) 0 gm TOP BID [facility] Last Admin: 05/12/16 18:20 Dose: 1 applic Docusate Sodium (Colace) 100 mg PO BID [facility] Last Admin: 05/12/16 18:15 Dose: 100 mg Enoxaparin Sodium (Lovenox) 40 mg SC DAILY [facility] Last Admin: 05/12/16 10:27 Dose: 40 mg Famotidine (Pepcid) 20 mg PO BID [facility] Last Admin: 05/12/16 18:16 Dose: 20 mg Finasteride (Proscar) 5 mg PO DAILY [facility] Last Admin: 05/12/16 10:27 Dose: 5 mg Magnesium Oxide (Mag-Ox) 400 mg PO BID [facility] Last Admin: 05/12/16 18:16 Dose: 400 mg Phenazopyridine HCl (Pyridium) 200 mg PO TIDPC [facility] Last Admin: 05/12/16 18:16 Dose: 200 mg Polyethylene Glycol (Miralax) 17 gm PO DAILY [facility] Last Admin: 05/11/16 10:47 Dose: Not Given Tamsulosin HCl (Flomax) 0.8 mg PO DAILY [facility] Last Admin: 05/12/16 10:26 Dose: 0.8 mg Vitamin A (Vitamin A & D Oint Ud Foilpak) 1 ea TOP Q8H [facility] Last Admin: 05/12/16 18:43 Dose: 1 ea - Labs Labs: 05/08/16 11:39 05/08/16 11:39 - Constitutional Appears: Non-toxic - Head Exam Head Exam: ATRAUMATIC - Eye Exam Eye Exam: EOMI - ENT Exam ENT Exam: Mucous Membranes Moist - Neck Exam Neck Exam: Full ROM. absent: Lymphadenopathy - Respiratory Exam Respiratory Exam: Clear to Ausculation Bilateral, NORMAL BREATHING PATTERN. absent: Rales, Rhonchi, Wheezes - Cardiovascular Exam Cardiovascular Exam: REGULAR RHYTHM, +S1, +S2 - GI/Abdominal Exam GI & Abdominal Exam: Soft, Normal Bowel Sounds - Neurological Exam Neurological Exam: Awake - Psychiatric Exam Psychiatric exam: Normal Affect - Skin Skin Exam: Warm Assessment and Plan - Assessment and Plan (Free Text) Assessment: Fracture of tibia, proximal, right, closed -05/11- per ortho team: patient to remain non-weight bearing to right lower extremity -05/09- right knee xrays ordered by orthopedics team- No acute fracture. Status post ORIF old patellar fracture No significant interval change compared to the prior examination Will follow up recommendations from orthopedics team -05/05:Ortho Dr. Pino and Jayce West PA following- no orthopedic intervention indicated at this time, strict NWB, PT/OT -Impaction/insufficiency fracture, lateral aspect proximal tibia, non operative , treated with strict NWB and immobilization -At least 6 weeks old by imaging -Tylenol 650 mg PO Q6 PRN mild pain -Oxycodone 5mg q8 prn severe pain -Daily physical therapy -Nonweight bearing on R leg -L knee x-ray: severe osteopenia. Sclerotic changes about the posterior proximal tibia may relate to a sclerotic healing response of a prior stress fracture here. no tibial plateau depressed fracture. The sclerosis is perceived on the prior 04/21 study; no interval pathology appreciated between 2 exams. If symptoms worsen consider MRI. 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 sclerosi about right acetabulum -daily physical therapy -PT 05/05: decline in transfers due to limitation from right hip and knee pain. patient still able to tolerate hallway ambulation, no episode of orthostatic hypotension post gait. recommending room/hallway ambulation w/ nursing for AM/ PM care or toileting. - PT 05/09: decline in function limited by persisting right groin/ hip and knee pain. patient still recommended for daily out of bed during am/pm care. cleared for ambulation in the room with standard walker non weight bearing right lower extremity -PT 05/10: mild decline in transfers due to pain in right knee and hip. NWB to RLE. Patient with episode of hypotension post ambulation- no syncope. Anemia; will monitor -chronic -monitor with weekly labs -Orthostatic vital signs ordered Abdominal Pain; resolved -patient with multiple soft stools- will stop miralax for now -patient has been complaining of abdominal pain since admission -Colace 100mg PO BID -Dulcolax every 3 days -Inguinal hernia with unobstructed bowel loop involvement; protruded 04/18 due to straining on toilet. -05/03/16 B/L inguinal hernias reduced today without incidence -Abdominal US 04/01: Gallstones, no acute cholecystitis, no hydronephrosis. trace ascites (see full report) -Abd/pelv CT 03/11: mod b/l pleural effusions and assoc consolidations; tiny probably gallstones within the gallbladder; small to moderate hiatal hernia; R inguinal hernia which contains small loops of bowel, likely small bowel- no evidence of obstruction as oral contrast is noted within R colon. No definite free air, however evaluation for pneumoperitoneum is suboptimal. Moderate to severe constipation with questionable impaction. Prostate gland 4.1cm x 4.6cm. Urinary bladder appears unremarkable. Small amount of fluid within a right inguinal hernia. Sclerosis of right iliac wing. Extensive anasarca. Aneursmal dilatation of ascending thoracic aorta; Currently 4.5 cm. Patient needs repeat Ct imaging every 6 months (July 2016) BPH -Pyridium 200 mg PO TIDPC -Flomax 0.8 mg PO daily -Finasteride 5 mg PO daily -Urology Dr. Hughes on board Onychomycosis -patient had aseptic debridement of toenails x 10 -clotrimazole cream to be applied to feet b/l BID -podiatry consult- help appreciated Sacral decubitus-Resolved -04/19: exam revealed a previously healed decubitus ulcer of right buttocks. Sacral exam was clear. -Wound care following - recommending medihoney covered with bordered telfa dressing to right lower buttocks stage 2 pressure ulcer daily. -Pt is OOB to chair with help from PT daily -Order placed for turning patient Q2H Urinary Tract Infection - urine culture 05/03- no growth - UA 05/05: +nitrates, occasional bacteria Prophylactic Measure -Labs weekly -Lovenox 40mg SC daily -Pepcid 20mg PO BID -A and D ointment TOP Q*H -Patient is homeless. Used to stay with friend, but no longer welcome there. Goal is to walk with cane so he can go to a [facility] (will not qualify with a walker) -patient will need to work with PT frequently DISPO -Reaching out to family in [facility] -Social Work is following up Dr. Lavell Orr PGY1 Hospialist Service <Jose Wiggins - Last Filed: 05/13/16 14:53> Objective - Vital Signs/Intake and Output Vital Signs (last 24 hours): Temp Pulse Resp BP Pulse Ox 97.8 F 64 20 109/70 97 05/13/16 07:21 05/13/16 07:21 05/13/16 07:21 05/13/16 07:21 05/13/16 07:21 Intake and Output: 05/13/16 05/13/16 06:59 18:59 Intake Total 700 Output Total 1300 Balance -600 - Medications Medications: Current Medications Acetaminophen (Tylenol 325mg Tab) 650 mg PO Q6 [facility] Last Admin: 05/13/16 12:28 Dose: 650 mg Bisacodyl (Dulcolax) 5 mg PO Q3D [facility] Last Admin: 05/11/16 18:05 Dose: Not Given Clotrimazole (Lotrimin 1%) 0 gm TOP BID [facility] Last Admin: 05/13/16 10:52 Dose: 1 applic Docusate Sodium (Colace) 100 mg PO BID [facility] Last Admin: 05/13/16 10:50 Dose: Not Given Enoxaparin Sodium (Lovenox) 40 mg SC DAILY [facility] Last Admin: 05/13/16 10:50 Dose: 40 mg Famotidine (Pepcid) 20 mg PO BID [facility] Last Admin: 05/13/16 10:50 Dose: 20 mg Finasteride (Proscar) 5 mg PO DAILY [facility] Last Admin: 05/13/16 10:51 Dose: 5 mg Magnesium Oxide (Mag-Ox) 400 mg PO BID [facility] Last Admin: 05/13/16 10:51 Dose: 400 mg Phenazopyridine HCl (Pyridium) 200 mg PO TIDPC [facility] Last Admin: 05/13/16 12:29 Dose: 200 mg Polyethylene Glycol (Miralax) 17 gm PO DAILY [facility] Last Admin: 05/11/16 10:47 Dose: Not Given Tamsulosin HCl (Flomax) 0.8 mg PO DAILY [facility] Last Admin: 05/13/16 10:50 Dose: 0.8 mg Vitamin A (Vitamin A & D Oint Ud Foilpak) 1 ea TOP Q8H [facility] Last Admin: 05/13/16 10:52 Dose: 1 ea - Labs Labs: 05/08/16 11:39 05/08/16 11:39 Attending/Attestation - Attestation I have personally seen and examined this patient.: Yes I have fully participated in the care of the patient.: Yes I have reviewed all pertinent clinical information, including history, physical exam and plan: Yes Notes (Text): 05/13/16 14:52 Patient was seen and examined at bedside Still complains of for pain in the right We will continue physical therapy Pain management Discharge planning when patient is physically stronger
[2016-05-13] MEDS: Vitamins A & D Oint UD Foilpak TOP SCH ×3 (02:00→17:42)
[2016-05-13] MEDS: Enoxaparin 40 mg Syringe SC SCH (10:50)
[2016-05-13] MEDS: Magnesium Oxide 400 mg Tab UD PO SCH ×2 (10:51→17:42)
[2016-05-13] MEDS: Clotrimazole 1% Cream 15 GM TUBE TOP SCH ×2 (10:52→17:44)
--- NOTE | 2016-05-14 00:37 | CP.PCM.PN ---
<Lavell Orr - Last Filed: 05/14/16 00:37> Subjective - Date & Time of Evaluation Date of Evaluation: 05/14/16 Time of Evaluation: 03:25 - Subjective Subjective: Patient seen and examined at bedside this AM; deneis any HALLMAN, fevers/chills, CP, SOB, abdominal pain, N/V/D, dysuria/freq/urg, or lower extremity swelling, denies depression/anxiety or AV hallucinations. Objective - Vital Signs/Intake and Output Vital Signs (last 24 hours): Temp Pulse Resp BP Pulse Ox 97.6 F 93 H 20 131/75 95 05/13/16 17:00 05/13/16 17:00 05/13/16 17:00 05/13/16 17:00 05/13/16 17:00 Intake and Output: 05/13/16 05/14/16 18:59 06:59 Intake Total 300 300 Balance 300 300 - Medications Medications: Current Medications Acetaminophen (Tylenol 325mg Tab) [address] [facility] Last Admin: 05/13/16 17:42 Dose: 650 mg Bisacodyl (Dulcolax) [address] [facility] Last Admin: 05/11/16 18:05 Dose: Not Given Clotrimazole (Lotrimin 1%) [address] [facility] Last Admin: 05/13/16 17:44 Dose: 1 applic Docusate Sodium (Colace) [address] [facility] Last Admin: 05/13/16 17:42 Dose: 100 mg Famotidine (Pepcid) [address] [facility] Last Admin: 05/13/16 17:42 Dose: 20 mg Finasteride (Proscar) [address] [facility] Last Admin: 05/13/16 10:51 Dose: 5 mg Magnesium Oxide (Mag-Ox) [address] [facility] Last Admin: 05/13/16 17:42 Dose: 400 mg Phenazopyridine HCl (Pyridium) [address] [facility] Last Admin: 05/13/16 17:42 Dose: 200 mg Polyethylene Glycol (Miralax) [address] [facility] Last Admin: 05/11/16 10:47 Dose: Not Given Tamsulosin HCl (Flomax) 0.[address] [facility] Last Admin: 05/13/16 10:50 Dose: 0.8 mg Vitamin A (Vitamin A & D Oint Ud Foilpak) 1 ea TOP Q8H [facility] Last Admin: 05/13/16 17:42 Dose: 1 ea - Labs Labs: 05/08/16 11:39 05/08/16 11:39 - Head Exam Additional comments: Appears: Non-toxic - Head Exam Head Exam: ATRAUMATIC - Eye Exam Eye Exam: EOMI - ENT Exam ENT Exam: Mucous Membranes Moist - Neck Exam Neck Exam: Full ROM. absent: Lymphadenopathy - Respiratory Exam Respiratory Exam: Clear to Ausculation Bilateral, NORMAL BREATHING PATTERN. absent: Rales, Rhonchi, Wheezes - Cardiovascular Exam Cardiovascular Exam: REGULAR RHYTHM, +S1, +S2 - GI/Abdominal Exam GI & Abdominal Exam: Soft, Normal Bowel Sounds - Neurological Exam Neurological Exam: Awake - Psychiatric Exam Psychiatric exam: Normal Affect - Skin Skin Exam: Warm Assessment and Plan - Assessment and Plan (Free Text) Assessment: Fracture of tibia, proximal, right, closed; pain management and physical therapy -05/11- per ortho team: patient to remain non-weight bearing to right lower extremity -05/09- right knee xrays ordered by orthopedics team- No acute fracture. Status post ORIF old patellar fracture No significant interval change compared to the prior examination Will follow up recommendations from orthopedics team -05/05:Ortho Dr. Pino and Jayce West PA following- no orthopedic intervention indicated at this time, strict NWB, PT/OT -Impaction/insufficiency fracture, lateral aspect proximal tibia, non operative , treated with strict NWB and immobilization -At least 6 weeks old by imaging -Tylenol 650 mg PO Q6 PRN mild pain -Oxycodone 5mg q8 prn severe pain -Daily physical therapy -Nonweight bearing on R leg -L knee x-ray: severe osteopenia. Sclerotic changes about the posterior proximal tibia may relate to a sclerotic healing response of a prior stress fracture here. no tibial plateau depressed fracture. The sclerosis is perceived on the prior 04/21 study; no interval pathology appreciated between 2 exams. If symptoms worsen consider MRI. 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 sclerosi about right acetabulum -daily physical therapy -PT 05/05: decline in transfers due to limitation from right hip and knee pain. patient still able to tolerate hallway ambulation, no episode of orthostatic hypotension post gait. recommending room/hallway ambulation w/ nursing for AM/ PM care or toileting. - PT 05/09: decline in function limited by persisting right groin/ hip and knee pain. patient still recommended for daily out of bed during am/pm care. cleared for ambulation in the room with standard walker non weight bearing right lower extremity -PT 05/10: mild decline in transfers due to pain in right knee and hip. NWB to RLE. Patient with episode of hypotension post ambulation- no syncope. Anemia; will monitor -chronic -monitor with weekly labs -Orthostatic vital signs ordered Abdominal Pain; resolved -patient with multiple soft stools- will stop miralax for now -patient has been complaining of abdominal pain since admission -Colace 100mg PO BID -Dulcolax every 3 days -Inguinal hernia with unobstructed bowel loop involvement; protruded 04/18 due to straining on toilet. -05/03/16 B/L inguinal hernias reduced today without incidence -Abdominal US 04/01: Gallstones, no acute cholecystitis, no hydronephrosis. trace ascites (see full report) -Abd/pelv CT 03/11: mod b/l pleural effusions and assoc consolidations; tiny probably gallstones within the gallbladder; small to moderate hiatal hernia; R inguinal hernia which contains small loops of bowel, likely small bowel- no evidence of obstruction as oral contrast is noted within R colon. No definite free air, however evaluation for pneumoperitoneum is suboptimal. Moderate to severe constipation with questionable impaction. Prostate gland 4.1cm x 4.6cm. Urinary bladder appears unremarkable. Small amount of fluid within a right inguinal hernia. Sclerosis of right iliac wing. Extensive anasarca. Aneursmal dilatation of ascending thoracic aorta; Currently 4.5 cm. Patient needs repeat Ct imaging every 6 months (July 2016) BPH;chronic -Pyridium 200 mg PO TIDPC -Flomax 0.8 mg PO daily -Finasteride 5 mg PO daily -Urology Dr. Hughes on board Onychomycosis;chronic and improving -patient had aseptic debridement of toenails x 10 -clotrimazole cream to be applied to feet b/l BID -podiatry consult- help appreciated Sacral decubitus-Resolved -04/19: exam revealed a previously healed decubitus ulcer of right buttocks. Sacral exam was clear. -Wound care following - recommending medihoney covered with bordered telfa dressing to right lower buttocks stage 2 pressure ulcer daily. -Pt is OOB to chair with help from PT daily -Order placed for turning patient Q2H Urinary Tract Infection; resolved - urine culture 05/03- no growth - UA 05/05: +nitrates, occasional bacteria Prophylactic Measure -Labs weekly -Lovenox 40mg SC daily -Pepcid 20mg PO BID -A and D ointment TOP Q*H -Patient is homeless. Used to stay with friend, but no longer welcome there. Goal is to walk with cane so he can go to a group home (will not qualify with a walker) -patient will need to work with PT frequently DISPO -Reaching out to family in [facility] -Social Work is following up Dr. Lavell Orr PGY1 Hospialist Service <Jose Wiggins - Last Filed: 05/14/16 13:20> Objective - Vital Signs/Intake and Output Vital Signs (last 24 hours): Temp Pulse Resp BP Pulse Ox 98 F 73 20 126/67 97 05/14/16 08:28 05/14/16 08:28 05/14/16 08:28 05/14/16 08:28 05/14/16 08:28 Intake and Output: 05/14/16 05/14/16 06:59 18:59 Intake Total 700 Output Total 700 Balance 0 - Medications Medications: Current Medications Acetaminophen (Tylenol 325mg Tab) 650 mg PO Q6 [facility] Last Admin: 05/14/16 11:40 Dose: 650 mg Bisacodyl (Dulcolax) [address] [facility] Last Admin: 05/11/16 18:05 Dose: Not Given Clotrimazole (Lotrimin 1%) [address] [facility] Last Admin: 05/14/16 10:45 Dose: 1 applic Docusate Sodium (Colace) [address] [facility] Last Admin: 05/14/16 10:46 Dose: Not Given Famotidine (Pepcid) [address] [facility] Last Admin: 05/14/16 10:44 Dose: 20 mg Finasteride (Proscar) [address] [facility] Last Admin: 05/14/16 10:44 Dose: 5 mg Magnesium Oxide (Mag-Ox) [address] [facility] Last Admin: 05/14/16 10:44 Dose: 400 mg Phenazopyridine HCl (Pyridium) [address] [facility] Last Admin: 05/14/16 10:44 Dose: 200 mg Polyethylene Glycol (Miralax) [address] [facility] Last Admin: 05/11/16 10:47 Dose: Not Given Tamsulosin HCl (Flomax) 0.[address] [facility] Last Admin: 05/14/16 10:43 Dose: 0.8 mg Vitamin A (Vitamin A & D Oint Ud Foilpak) [address] [facility] Last Admin: 05/14/16 10:45 Dose: 1 ea - Labs Labs: 05/08/16 11:39 05/08/16 11:39 Attending/Attestation - Attestation I have personally seen and examined this patient.: Yes I have fully participated in the care of the patient.: Yes I have reviewed all pertinent clinical information, including history, physical exam and plan: Yes Notes (Text): 05/14/16 13:19 patient was seen and examined at bedside Patient complains of right hip Continue pain management Continue daily physical therapy discussed with nursing staff
[2016-05-14] MEDS: Vitamins A & D Oint UD Foilpak TOP SCH ×3 (01:22→17:36)
[2016-05-14] MEDS: Magnesium Oxide 400 mg Tab UD PO SCH ×2 (10:44→17:36)
[2016-05-14] MEDS: Clotrimazole 1% Cream 15 GM TUBE TOP SCH ×2 (10:45→17:38)
[2016-05-14] MEDS: Bisacodyl 5mg EC Tab PO SCH (17:36)
[2016-05-15] MEDS: Vitamins A & D Oint UD Foilpak TOP SCH ×3 (01:13→17:58)
[2016-05-15 07:37] LABS: BASO # 0.1 K/uL (0.0-0.2); EOS # 0.2 K/uL (0.0-0.7); EOS % 3.6 % (0.0-4.0); LYMPH # 1.5 K/uL (1.0-4.3); LYMPH % 31.9 % (20.0-40.0); MEAN CELL VOLUME 97.3 fL (80.0-94.0); MEAN CORPUSCULAR HEMOGLOBIN 32.6 pg (27.0-31.0); MEAN CORPUSCULAR HGB CONC 33.5 g/dL (33.0-37.0); MEAN PLATELET VOLUME 7.4 fL (7.2-11.7); MONO # 0.4 K/uL (0.0-0.8); MONO % 8.6 % (0.0-10.0); NEUT # 2.5 K/uL (1.8-7.0); NEUT % 53.9 % (50.0-75.0); NRBC % 0.1 % (0.0-2.0); RBC 3.37 Mil/uL (4.40-5.90); RED CELL DISTRIBUTION WIDTH 16.3 % (11.5-14.5); WHITE BLOOD COUNT 4.6 K/uL (4.8-10.8)
[2016-05-15 07:47] LABS: ALBUMIN 3.9 g/dL (3.5-5.0)
[2016-05-15 07:49] LABS: GFR AFRICAN-AMERICAN > 60; GFR NON-AFRICAN AMERICAN > 60
[2016-05-15 07:50] LABS: ALT/SGPT 29 U/L (21-72); AST/SGOT 24 U/L (17-59); BLOOD UREA NITROGEN 21 mg/dL (9-20)
[2016-05-15 07:51] LABS: MAGNESIUM 1.7 mg/dL (1.6-2.3)
[2016-05-15] MEDS: Magnesium Oxide 400 mg Tab UD PO SCH ×2 (11:00→17:56)
[2016-05-15] MEDS: Clotrimazole 1% Cream 15 GM TUBE TOP SCH ×2 (11:00→18:00)
--- NOTE | 2016-05-15 11:00 | CP.PCM.PN ---
<Jessie Luna - Last Filed: 05/15/16 10:54> Subjective - Date & Time of Evaluation Date of Evaluation: 05/15/16 Time of Evaluation: 08:45 - Subjective Subjective: PGY1 on Dr. Garcia's service: Patient seen and examined. Patient with dry scaly rash on face, new since yesterday. Patient also complains of diarrhea twice this morning and frequent urination. Objective - Vital Signs/Intake and Output Vital Signs (last 24 hours): Temp Pulse Resp BP Pulse Ox 98.6 F 77 20 104/67 96 05/15/16 07:00 05/15/16 07:00 05/15/16 07:00 05/15/16 07:00 05/15/16 07:00 Intake and Output: 05/15/16 05/15/16 06:59 18:59 Intake Total 250 300 Output Total 500 Balance -250 300 - Medications Medications: Current Medications Acetaminophen (Tylenol 325mg Tab) 650 mg PO Q6 [facility] Last Admin: 05/15/16 05:30 Dose: 650 mg Bisacodyl (Dulcolax) 5 mg PO Q3D [facility] Last Admin: 05/14/16 17:36 Dose: 5 mg Clotrimazole (Lotrimin 1%) 0 gm TOP BID [facility] Last Admin: 05/14/16 17:38 Dose: 1 applic Docusate Sodium (Colace) 100 mg PO BID [facility] Last Admin: 05/14/16 17:36 Dose: 100 mg Famotidine (Pepcid) 20 mg PO BID [facility] Last Admin: 05/14/16 17:36 Dose: 20 mg Finasteride (Proscar) 5 mg PO DAILY [facility] Last Admin: 05/14/16 10:44 Dose: 5 mg Magnesium Oxide (Mag-Ox) 400 mg PO BID [facility] Last Admin: 05/14/16 17:36 Dose: 400 mg Phenazopyridine HCl (Pyridium) 200 mg PO TIDPC [facility] Last Admin: 05/14/16 17:36 Dose: 200 mg Polyethylene Glycol (Miralax) 17 gm PO DAILY [facility] Last Admin: 05/11/16 10:47 Dose: Not Given Tamsulosin HCl (Flomax) 0.8 mg PO DAILY [facility] Last Admin: 05/14/16 10:43 Dose: 0.8 mg Vitamin A (Vitamin A & D Oint Ud Foilpak) 1 ea TOP Q8H [facility] Last Admin: 05/15/16 01:13 Dose: 1 ea - Labs Labs: 05/15/16 07:15 05/15/16 07:15 - Constitutional Appears: No Acute Distress, Chronically Ill - Head Exam Head Exam: ATRAUMATIC - Eye Exam Eye Exam: EOMI - ENT Exam ENT Exam: Mucous Membranes Moist - Respiratory Exam Respiratory Exam: Clear to Ausculation Bilateral, NORMAL BREATHING PATTERN. absent: Chest Wall Tenderness - Cardiovascular Exam Cardiovascular Exam: +S1, +S2 - GI/Abdominal Exam GI & Abdominal Exam: Soft, Tenderness (diffuse abdominal tenderness), Hyperactive Bowel Sounds - Exam Additional comments: urinal at bedside with dark urine - Extremities Exam Additional comments: right knee immobilizer in place no edema present - Neurological Exam Neurological Exam: Alert, Awake - Skin Skin Exam: Rash Additional comments: dry scaly rash over entire face- extends into proximal hairline, stops at jawline. Assessment and Plan - Assessment and Plan (Free Text) Assessment: Facial rash will check ESR/ CRP/ RAYA, RA A&D ointment to face Fracture of tibia, proximal, right, closed; pain management and physical therapy -05/11- per ortho team: patient to remain non-weight bearing to right lower extremity -05/09- right knee xrays ordered by orthopedics team- No acute fracture. Status post ORIF old patellar fracture No significant interval change compared to the prior examination Will follow up recommendations from orthopedics team -05/05:Ortho Dr. Pino and Jayce West PA following- no orthopedic intervention indicated at this time, strict NWB, PT/OT -Impaction/insufficiency fracture, lateral aspect proximal tibia, non operative , treated with strict NWB and immobilization -At least 6 weeks old by imaging -Tylenol 650 mg PO Q6 PRN mild pain -Oxycodone 5mg q8 prn severe pain -Daily physical therapy -Nonweight bearing on R leg -L knee x-ray: severe osteopenia. Sclerotic changes about the posterior proximal tibia may relate to a sclerotic healing response of a prior stress fracture here. no tibial plateau depressed fracture. The sclerosis is perceived on the prior 04/21 study; no interval pathology appreciated between 2 exams. If symptoms worsen consider MRI. 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 sclerosi about right acetabulum -daily physical therapy -PT 05/05: decline in transfers due to limitation from right hip and knee pain. patient still able to tolerate hallway ambulation, no episode of orthostatic hypotension post gait. recommending room/hallway ambulation w/ nursing for AM/ PM care or toileting. - PT 05/09: decline in function limited by persisting right groin/ hip and knee pain. patient still recommended for daily out of bed during am/pm care. cleared for ambulation in the room with standard walker non weight bearing right lower extremity -PT 05/10: mild decline in transfers due to pain in right knee and hip. NWB to RLE. Patient with episode of hypotension post ambulation- no syncope. -05/15: patient to be seen by PT again Anemia; will monitor 05/15: hgb 11.0 -chronic -monitor with weekly labs -Orthostatic vital signs ordered Abdominal Pain; resolved -patient with multiple soft stools- will stop miralax for now -patient has been complaining of abdominal pain since admission -Colace 100mg PO BID -Dulcolax every 3 days -Inguinal hernia with unobstructed bowel loop involvement; protruded 04/18 due to straining on toilet. -05/03/16 B/L inguinal hernias reduced today without incidence -Abdominal US 04/01: Gallstones, no acute cholecystitis, no hydronephrosis. trace ascites (see full report) -Abd/pelv CT 03/11: mod b/l pleural effusions and assoc consolidations; tiny probably gallstones within the gallbladder; small to moderate hiatal hernia; R inguinal hernia which contains small loops of bowel, likely small bowel- no evidence of obstruction as oral contrast is noted within R colon. No definite free air, however evaluation for pneumoperitoneum is suboptimal. Moderate to severe constipation with questionable impaction. Prostate gland 4.1cm x 4.6cm. Urinary bladder appears unremarkable. Small amount of fluid within a right inguinal hernia. Sclerosis of right iliac wing. Extensive anasarca. Aneursmal dilatation of ascending thoracic aorta; Currently 4.5 cm. Patient needs repeat Ct imaging every 6 months (July 2016) BPH;chronic -Pyridium 200 mg PO TIDPC -Flomax 0.8 mg PO daily -Finasteride 5 mg PO daily -Urology Dr. Hughes on board Onychomycosis;chronic and improving -patient had aseptic debridement of toenails x 10 -clotrimazole cream to be applied to feet b/l BID -podiatry consult- help appreciated Sacral decubitus-Resolved -04/19: exam revealed a previously healed decubitus ulcer of right buttocks. Sacral exam was clear. -Wound care following - recommending medihoney covered with bordered telfa dressing to right lower buttocks stage 2 pressure ulcer daily. -Pt is OOB to chair with help from PT daily -Order placed for turning patient Q2H Urinary Tract Infection; resolved - urine culture 05/03- no growth - UA 05/05: +nitrates, occasional bacteria Prophylactic Measure -Labs weekly -Lovenox 40mg SC daily -Pepcid 20mg PO BID -A and D ointment TOP Q*H -Patient is homeless. Used to stay with friend, but no longer welcome there. Goal is to walk with cane so he can go to a [facility] (will not qualify with a walker) -patient will need to work with PT frequently DISPO -Reaching out to family in [facility] -Social Work is following up <Esme Garcia V - Last Filed: 05/15/16 23:57> Objective - Vital Signs/Intake and Output Vital Signs (last 24 hours): Temp Pulse Resp BP Pulse Ox 98.3 F 79 20 107/66 94 L 05/15/16 20:00 05/15/16 20:00 05/15/16 20:00 05/15/16 20:00 05/15/16 20:00 Intake and Output: 05/15/16 05/16/16 18:59 06:59 Intake Total 700 900 Balance 700 900 - Medications Medications: Current Medications Acetaminophen (Tylenol 325mg Tab) 650 mg PO Q6 [facility] Last Admin: 05/15/16 17:56 Dose: 650 mg Bisacodyl (Dulcolax) 5 mg PO Q3D [facility] Last Admin: 05/14/16 17:36 Dose: 5 mg Clotrimazole (Lotrimin 1%) 0 gm TOP BID [facility] Last Admin: 05/15/16 18:00 Dose: 1 applic Docusate Sodium (Colace) 100 mg PO BID [facility] Last Admin: 05/15/16 11:28 Dose: Not Given Famotidine (Pepcid) 20 mg PO BID [facility] Last Admin: 05/15/16 17:56 Dose: 20 mg Finasteride (Proscar) 5 mg PO DAILY [facility] Last Admin: 05/15/16 11:00 Dose: 5 mg Magnesium Oxide (Mag-Ox) 400 mg PO BID [facility] Last Admin: 05/15/16 17:56 Dose: 400 mg Phenazopyridine HCl (Pyridium) 200 mg PO TIDPC [facility] Last Admin: 05/15/16 17:56 Dose: 200 mg Polyethylene Glycol (Miralax) 17 gm PO DAILY [facility] Last Admin: 05/11/16 10:47 Dose: Not Given Tamsulosin HCl (Flomax) 0.8 mg PO DAILY [facility] Last Admin: 05/15/16 11:00 Dose: 0.8 mg Vitamin A (Vitamin A & D Oint Ud Foilpak) 1 ea TOP Q8H [facility] Last Admin: 05/15/16 17:58 Dose: 1 ea - Labs Labs: 05/15/16 07:15 05/15/16 07:15 Attending/Attestation - Attestation I have personally seen and examined this patient.: Yes I have fully participated in the care of the patient.: Yes I have reviewed all pertinent clinical information, including history, physical exam and plan: Yes Notes (Text): Patient seen, examined and case discussed with day-time resident. patient presents with scaly, type rash limited to face not noted in prior resident notes which seems new. Patient ordered for ESR, CRP, RAYA w reflex, and rheumatoid factor. Patient not started on new medications to the best of my knowledge. Likely patient needs an emollient given that the skin flakes off. No mucosal involvement. Able to protect the airway. Patient also report diarrhea, stool studies order. Patient's abdominal exam is benign: soft, mild tenderness to palpation, able to move comfortably in bed. Miralax and colace stopped given diarrhea complaints. Patient reporting dysuria, ordered for repeat urine studies. Continue working with physical therapy and follow-up with social work.
[2016-05-15] MEDS ORDERED: Sodium Chloride 0.9% 500 ML IV ONE (18:04)
[2016-05-16] MEDS: Vitamins A & D Oint UD Foilpak TOP SCH ×2 (01:46→11:02)
[2016-05-16 08:14] LABS: SQUAMOUS EPITHIAL 1 /hpf (0-5); URINE BACTERIA OCC (<OCC); URINE BILIRUBIN NEGATIVE (NEGATIVE); URINE BLOOD NEGATIVE (NEGATIVE); URINE CLARITY Clear (Clear); URINE GLUCOSE (UA) NORMAL (Normal); URINE LEUKOCYTE ESTERASE NEG Leu/uL (Negative); URINE NITRATE POSITIVE (NEGATIVE); URINE PROTEIN NEGATIVE (NEGATIVE)
[2016-05-16 08:22] LABS: URINE COLOR AMBER (YELLOW)
--- NOTE | 2016-05-16 10:46 | CP.PCM.PN ---
<Jessie Luna DO - Last Filed: 05/16/16 12:28> Subjective - Date & Time of Evaluation Date of Evaluation: 05/16/16 Time of Evaluation: 07:45 - Subjective Subjective: PGY1 on Dr. Santo's service: Patient complaining of generalized abdominal pain and diarrhea twice this morning. Patient's facial rash is improved. Patient also complaining of frequent urination. Objective - Vital Signs/Intake and Output Vital Signs (last 24 hours): Temp Pulse Resp BP Pulse Ox 97.9 F 73 20 104/66 95 05/16/16 08:02 05/16/16 08:02 05/16/16 08:02 05/16/16 08:02 05/16/16 08:02 Intake and Output: 05/16/16 05/16/16 06:59 18:59 Intake Total 1300 Balance 1300 - Medications Medications: Current Medications Acetaminophen (Tylenol 325mg Tab) 650 mg PO Q6 [facility] Last Admin: 05/16/16 05:50 Dose: 650 mg Bisacodyl (Dulcolax) 5 mg PO Q3D [facility] Last Admin: 05/14/16 17:36 Dose: 5 mg Clotrimazole (Lotrimin 1%) 0 gm TOP BID [facility] Last Admin: 05/15/16 18:00 Dose: 1 applic Docusate Sodium (Colace) 100 mg PO BID [facility] Last Admin: 05/15/16 11:28 Dose: Not Given Famotidine (Pepcid) 20 mg PO BID [facility] Last Admin: 05/15/16 17:56 Dose: 20 mg Finasteride (Proscar) 5 mg PO DAILY [facility] Last Admin: 05/15/16 11:00 Dose: 5 mg Magnesium Oxide (Mag-Ox) 400 mg PO BID [facility] Last Admin: 05/15/16 17:56 Dose: 400 mg Phenazopyridine HCl (Pyridium) 200 mg PO TIDPC [facility] Last Admin: 05/15/16 17:56 Dose: 200 mg Polyethylene Glycol (Miralax) 17 gm PO DAILY [facility] Last Admin: 05/11/16 10:47 Dose: Not Given Tamsulosin HCl (Flomax) 0.8 mg PO DAILY [facility] Last Admin: 05/15/16 11:00 Dose: 0.8 mg Vitamin A (Vitamin A & D Oint Ud Foilpak) 1 ea TOP Q8H [facility] Last Admin: 05/16/16 01:46 Dose: 1 ea - Labs Labs: 05/15/16 07:15 05/15/16 07:15 - Constitutional Appears: No Acute Distress, Unkempt, Chronically Ill - Eye Exam Eye Exam: EOMI - ENT Exam ENT Exam: Mucous Membranes Moist - Respiratory Exam Respiratory Exam: Clear to Ausculation Bilateral - Cardiovascular Exam Cardiovascular Exam: +S1, +S2 - GI/Abdominal Exam GI & Abdominal Exam: Soft, Tenderness (diffuse), Normal Bowel Sounds - Extremities Exam Additional comments: right knee immobilizer no edema either lower extremity - Neurological Exam Neurological Exam: Alert, Awake - Skin Skin Exam: Warm Additional comments: rash resolved on face. patient has ointment applied to face. Assessment and Plan - Assessment and Plan (Free Text) Assessment: Assessment: Facial rash improved ESR 32 CRP 1.51 RA- negative A&D ointment to face Diarrhea check stool culture, ova and parasites Fracture of tibia, proximal, right, closed; pain management and physical therapy -05/11- per ortho team: patient to remain non-weight bearing to right lower extremity -05/09- right knee xrays ordered by orthopedics team- No acute fracture. Status post ORIF old patellar fracture No significant interval change compared to the prior examination Will follow up recommendations from orthopedics team -05/05:Ortho Dr. Pino and Jayce West PA following- no orthopedic intervention indicated at this time, strict NWB, PT/OT -Impaction/insufficiency fracture, lateral aspect proximal tibia, non operative , treated with strict NWB and immobilization -At least 6 weeks old by imaging -Tylenol 650 mg PO Q6 PRN mild pain -Oxycodone 5mg q8 prn severe pain -Daily physical therapy -Nonweight bearing on R leg -L knee x-ray: severe osteopenia. Sclerotic changes about the posterior proximal tibia may relate to a sclerotic healing response of a prior stress fracture here. no tibial plateau depressed fracture. The sclerosis is perceived on the prior 04/21 study; no interval pathology appreciated between 2 exams. If symptoms worsen consider MRI. 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 adding sodium chloride tablets 500mg BID 05/05: -Supine BP: 114/71, HR 75 -Sitting BP: 113/71, HR 90 -Standing BP: 116/72, HR 94 - Fluids DC Gait Instability; will continue with PT/OT -Patient uses walker- NWB at this time RLE -Chronic RLE pain (since admission) due to slippage of mechanical hardware in his leg from prior procedure -R knee immobilizer in place and patient on strict NWB status -Xray 04/03: superior migration of prosthesis. sclerosi about right acetabulum -daily physical therapy -PT 05/05: decline in transfers due to limitation from right hip and knee pain. patient still able to tolerate hallway ambulation, no episode of orthostatic hypotension post gait. recommending room/hallway ambulation w/ nursing for AM/ PM care or toileting. - PT 05/09: decline in function limited by persisting right groin/ hip and knee pain. patient still recommended for daily out of bed during am/pm care. cleared for ambulation in the room with standard walker non weight bearing right lower extremity -PT 05/10: mild decline in transfers due to pain in right knee and hip. NWB to RLE. Patient with episode of hypotension post ambulation- no syncope. -05/16: discussed with PT. Patient function declining due to immobility. Patient needs to go from bed to chair. Patient should also be ambulating to the bathroom with assist. Patient becomes hypotensive with walking. Anemia; will monitor 05/15: hgb 11.0 -chronic -monitor with weekly labs Abdominal Pain; resolved 05/16: stop all stool softeners -patient with multiple soft stools- will stop miralax for now -patient has been complaining of abdominal pain since admission -Colace 100mg PO BID -Dulcolax every 3 days -Inguinal hernia with unobstructed bowel loop involvement; protruded 04/18 due to straining on toilet. -05/03/16 B/L inguinal hernias reduced today without incidence -Abdominal US 04/01: Gallstones, no acute cholecystitis, no hydronephrosis. trace ascites (see full report) -Abd/pelv CT 03/11: mod b/l pleural effusions and assoc consolidations; tiny probably gallstones within the gallbladder; small to moderate hiatal hernia; R inguinal hernia which contains small loops of bowel, likely small bowel- no evidence of obstruction as oral contrast is noted within R colon. No definite free air, however evaluation for pneumoperitoneum is suboptimal. Moderate to severe constipation with questionable impaction. Prostate gland 4.1cm x 4.6cm. Urinary bladder appears unremarkable. Small amount of fluid within a right inguinal hernia. Sclerosis of right iliac wing. Extensive anasarca. Aneursmal dilatation of ascending thoracic aorta; Currently 4.5 cm. Patient needs repeat Ct imaging every 6 months (July 2016) BPH;chronic -Pyridium 200 mg PO TIDPC -Flomax 0.8 mg PO daily -Finasteride 5 mg PO daily -Urology Dr. Hughes on board Onychomycosis;chronic and improving -patient had aseptic debridement of toenails x 10 -clotrimazole cream to be applied to feet b/l BID -podiatry consult- help appreciated Sacral decubitus- 05/16: patient needs to go from bed to chair to prevent ulcers from re-forming -04/19: exam revealed a previously healed decubitus ulcer of right buttocks. Sacral exam was clear. -Wound care following - recommending medihoney covered with bordered telfa dressing to right lower buttocks stage 2 pressure ulcer daily. -Pt is OOB to chair with help from PT daily -Order placed for turning patient Q2H History of Urinary Tract Infection 05/16: + nitrates, 4 RBC, occasional bacteria. culture ordered. - urine culture 05/03- no growth - UA 05/05: +nitrates, occasional bacteria Prophylactic Measure -Labs weekly -Lovenox 40mg SC daily -Pepcid 20mg PO BID -A and D ointment TOP Q*H -Patient is homeless. Used to stay with friend, but no longer welcome there. Goal is to walk with cane so he [place] go [place] [facility] [place] (will not qualify with a walker) -patient will need to work with PT frequently DISPO -Reaching out to family in [facility] -Social Work is following up <Lionel Santo - Last Filed: 05/17/16 09:10> Objective - Vital Signs/Intake and Output Vital Signs (last 24 hours): Temp Pulse Resp BP Pulse Ox 98.1 F 68 20 110/68 96 05/17/16 08:47 05/17/16 08:47 05/17/16 08:47 05/17/16 08:47 05/17/16 08:47 Intake and Output: 05/17/16 05/17/16 06:59 18:59 Intake Total 320 Output Total 2 Balance 318 - Medications Medications: Current Medications Acetaminophen (Tylenol 325mg Tab) 650 mg PO Q6 PRN PRN Reason: Pain, Mild (1-3) Bisacodyl (Dulcolax) 5 mg PO Q3D [facility] Last Admin: 05/14/16 17:36 Dose: 5 mg Clotrimazole (Lotrimin 1%) 0 gm TOP BID [facility] Last Admin: 05/16/16 18:22 Dose: 1 applic Docusate Sodium (Colace) 100 mg PO BID [facility] Last Admin: 05/15/16 11:28 Dose: Not Given Enoxaparin Sodium (Lovenox) 40 mg SC DAILY [facility] Last Admin: 05/16/16 13:00 Dose: 40 mg Famotidine (Pepcid) 20 mg PO BID [facility] Last Admin: 05/16/16 18:22 Dose: 20 mg Finasteride (Proscar) 5 mg PO DAILY [facility] Last Admin: 05/16/16 11:03 Dose: 5 mg Magnesium Oxide (Mag-Ox) 400 mg PO BID [facility] Last Admin: 05/16/16 18:26 Dose: 400 mg Phenazopyridine HCl (Pyridium) 200 mg PO TIDPC [facility] Last Admin: 05/16/16 18:22 Dose: 200 mg Polyethylene Glycol (Miralax) 17 gm PO DAILY [facility] Last Admin: 05/11/16 10:47 Dose: Not Given Sodium Chloride (Sodium Chloride Tab) 1 gm PO DAILY@1330 [facility] Last Admin: 05/16/16 14:25 Dose: 1 gm Tamsulosin HCl (Flomax) 0.8 mg PO DAILY [facility] Last Admin: 05/16/16 11:03 Dose: 0.8 mg Tramadol HCl (Ultram) 25 mg PO TID PRN PRN Reason: Pain, moderate (4-7) Vitamin A (Vitamin A & D Oint Ud Foilpak) 1 ea TOP Q8H [facility] Last Admin: 05/17/16 02:17 Dose: Not Given - Labs Labs: 05/15/16 07:15 05/15/16 07:15 Attending/Attestation - Attestation I have personally seen and examined this patient.: Yes I have fully participated in the care of the patient.: Yes I have reviewed all pertinent clinical information, including history, physical exam and plan: Yes Notes (Text): Patient admitted with R hip prosthesis acetabular protrusion; subsequently found to have R proximal tibial fracture; Patient's mildly hypotensive after walking with PT yesterday; possibly effect of high dose flomax; patient encouraged to stay out of bed and ambulate with walker and assistance to bathroom (okay to do so per PT despite being non- weight bearing on R leg); however, per nursing staff, patient averse to being physically active; BPH with continued symptoms; on flomax 0.8 mg daily and tamsulosin 5 mg daily; continue; Tylenol standing qid for analgesic effect; tramadol prn for pain; -add NaCl tabs bid to avoid hypotension Dispo: Patient ideally needs [facility] but no insurance; homeless and unsafe for [place] [facility].
[2016-05-16] MEDS: Magnesium Oxide 400 mg Tab UD PO SCH ×2 (11:02→18:26)
[2016-05-16] MEDS: Clotrimazole 1% Cream 15 GM TUBE TOP SCH ×2 (11:03→18:22)
[2016-05-16] MEDS: Enoxaparin 40 mg Syringe SC SCH (13:00)
[2016-05-17] MEDS: Vitamins A & D Oint UD Foilpak TOP SCH ×3 (02:17→17:20)
[2016-05-17] MEDS: Tramadol 25 mg PO PRN (11:00)
[2016-05-17] MEDS: Enoxaparin 40 mg Syringe SC SCH (11:01)
[2016-05-17] MEDS: Magnesium Oxide 400 mg Tab UD PO SCH ×2 (11:01→17:19)
[2016-05-17] MEDS: Clotrimazole 1% Cream 15 GM TUBE TOP SCH ×2 (11:02→21:47)
--- NOTE | 2016-05-17 11:40 | CP.PCM.PN ---
<Jessie Luna DO - Last Filed: 05/17/16 12:07> Subjective - Date & Time of Evaluation Date of Evaluation: 05/17/16 Time of Evaluation: 07:35 - Subjective Subjective: Patient seen and examined. Patient complaining about diffuse abdominal pain and soft stools. Patient reminded to ask for pain medication when needed for his leg. Patient states he did not eat much breakfast today and had poor appetite this morning. Objective - Vital Signs/Intake and Output Vital Signs (last 24 hours): Temp Pulse Resp BP Pulse Ox 98.1 F 68 20 110/68 96 05/17/16 08:47 05/17/16 08:47 05/17/16 08:47 05/17/16 08:47 05/17/16 08:47 Intake and Output: 05/17/16 05/17/16 06:59 18:59 Intake Total 320 Output Total 2 Balance 318 - Medications Medications: Current Medications Acetaminophen (Tylenol 325mg Tab) 650 mg PO Q6 [facility] Bisacodyl (Dulcolax) 5 mg PO Q3D [facility] Last Admin: 05/14/16 17:36 Dose: 5 mg Clotrimazole (Lotrimin 1%) 0 gm TOP BID [facility] Last Admin: 05/17/16 11:02 Dose: 1 applic Docusate Sodium (Colace) 100 mg PO BID [facility] Last Admin: 05/15/16 11:28 Dose: Not Given Enoxaparin Sodium (Lovenox) 40 mg SC DAILY [facility] Last Admin: 05/17/16 11:01 Dose: 40 mg Famotidine (Pepcid) 20 mg PO BID [facility] Last Admin: 05/17/16 11:01 Dose: 20 mg Finasteride (Proscar) 5 mg PO DAILY [facility] Last Admin: 05/17/16 11:01 Dose: 5 mg Magnesium Oxide (Mag-Ox) 400 mg PO BID [facility] Last Admin: 05/17/16 11:01 Dose: 400 mg Phenazopyridine HCl (Pyridium) 200 mg PO TIDPC [facility] Last Admin: 05/17/16 11:00 Dose: 200 mg Polyethylene Glycol (Miralax) 17 gm PO DAILY [facility] Last Admin: 05/11/16 10:47 Dose: Not Given Sodium Chloride (Sodium Chloride Tab) 1 gm PO DAILY@1330 [facility] Last Admin: 05/16/16 14:25 Dose: 1 gm Tamsulosin HCl (Flomax) 0.8 mg PO DAILY [facility] Last Admin: 05/17/16 11:00 Dose: 0.8 mg Tramadol HCl (Ultram) 25 mg PO TID PRN PRN Reason: Pain, moderate (4-7) Last Admin: 05/17/16 11:00 Dose: 25 mg Vitamin A (Vitamin A & D Oint Ud Foilpak) 1 ea TOP Q8H [facility] Last Admin: 05/17/16 11:01 Dose: 1 ea - Labs Labs: 05/15/16 07:15 05/15/16 07:15 - Constitutional Appears: Non-toxic, No Acute Distress, Chronically Ill - Head Exam Head Exam: ATRAUMATIC - Eye Exam Eye Exam: EOMI - ENT Exam ENT Exam: Mucous Membranes Moist - Respiratory Exam Respiratory Exam: Clear to Ausculation Bilateral - Cardiovascular Exam Cardiovascular Exam: +S1, +S2 - GI/Abdominal Exam GI & Abdominal Exam: Soft, Tenderness (lower abdominal tenderness), Normal Bowel Sounds - Extremities Exam Additional comments: right knee immobilizer in place no lower extremity edema - Back Exam Additional comments: no skin breakdown noted. mild erythema to lower back/ buttocks - Neurological Exam Neurological Exam: Alert, Awake - Skin Skin Exam: Dry, Warm Assessment and Plan - Assessment and Plan (Free Text) Assessment: Assessment: Facial rash improved ESR 32 CRP 1.51 RA- negative A&D ointment to face Diarrhea check stool culture 05/17: ova and parasites negative Fracture of tibia, proximal, right, closed; pain management and physical therapy -05/17- repeat xray ordered, results pending -05/11- per ortho team: patient to remain non-weight bearing to right lower extremity -05/09- right knee xrays ordered by orthopedics team- No acute fracture. Status post ORIF old patellar fracture No significant interval change compared to the prior examination Will follow up recommendations from orthopedics team -05/05:Ortho Dr. Pino and Jayce West PA following- no orthopedic intervention indicated at this time, strict NWB, PT/OT -Impaction/insufficiency fracture, lateral aspect proximal tibia, non operative , treated with strict NWB and immobilization -At least 6 weeks old by imaging -Tylenol 650 mg PO Q6 PRN mild pain -Oxycodone 5mg q8 prn severe pain -Daily physical therapy -Nonweight bearing on R leg -L knee x-ray: severe osteopenia. Sclerotic changes about the posterior proximal tibia may relate to a sclerotic healing response of a prior stress fracture here. no tibial plateau depressed fracture. The sclerosis is perceived on the prior 04/21 study; no interval pathology appreciated between 2 exams. If symptoms worsen consider MRI. 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 adding sodium chloride tablets 1g daily 05/05: -Supine BP: 114/71, HR 75 -Sitting BP: 113/71, HR 90 -Standing BP: 116/72, HR 94 - Fluids DC Gait Instability; will continue with PT/OT -Patient uses walker- NWB at this time RLE -Chronic RLE pain (since admission) due to slippage of mechanical hardware in his leg from prior procedure -R knee immobilizer in place and patient on strict NWB status -Xray 04/03: superior migration of prosthesis. sclerosi about right acetabulum -daily physical therapy -PT 05/05: decline in transfers due to limitation from right hip and knee pain. patient still able to tolerate hallway ambulation, no episode of orthostatic hypotension post gait. recommending room/hallway ambulation w/ nursing for AM/ PM care or toileting. - PT 05/09: decline in function limited by persisting right groin/ hip and knee pain. patient still recommended for daily out of bed during am/pm care. cleared for ambulation in the room with standard walker non weight bearing right lower extremity -PT 05/10: mild decline in transfers due to pain in right knee and hip. NWB to RLE. Patient with episode of hypotension post ambulation- no syncope. -05/16: discussed with PT. Patient function declining due to immobility. Patient needs to go from bed to chair. Patient should also be ambulating to the bathroom with assist. Patient becomes hypotensive with walking. -05/17: patient assisted to chair. discussed with nursing the need for ambulation to and from bathroom with assistance as well as transfer from bed to chair Anemia; will monitor 05/15: hgb 11.0 -chronic -monitor with weekly labs Abdominal Pain; resolved 05/16: stop all stool softeners -patient with multiple soft stools- will stop miralax for now -patient has been complaining of abdominal pain since admission -Colace 100mg PO BID -Dulcolax every 3 days -Inguinal hernia with unobstructed bowel loop involvement; protruded 04/18 due to straining on toilet. -05/03/16 B/L inguinal hernias reduced today without incidence -Abdominal US 04/01: Gallstones, no acute cholecystitis, no hydronephrosis. trace ascites (see full report) -Abd/pelv CT 03/11: mod b/l pleural effusions and assoc consolidations; tiny probably gallstones within the gallbladder; small to moderate hiatal hernia; R inguinal hernia which contains small loops of bowel, likely small bowel- no evidence of obstruction as oral contrast is noted within R colon. No definite free air, however evaluation for pneumoperitoneum is suboptimal. Moderate to severe constipation with questionable impaction. Prostate gland 4.1cm x 4.6cm. Urinary bladder appears unremarkable. Small amount of fluid within a right inguinal hernia. Sclerosis of right iliac wing. Extensive anasarca. Aneursmal dilatation of ascending thoracic aorta; Currently 4.5 cm. Patient needs repeat Ct imaging every 6 months (July 2016) BPH;chronic -Pyridium 200 mg PO TIDPC -Flomax 0.8 mg PO daily -Finasteride 5 mg PO daily -Urology Dr. Hughes on board Onychomycosis;chronic and improving -patient had aseptic debridement of toenails x 10 -clotrimazole cream to be applied to feet b/l BID -podiatry consult- help appreciated Sacral decubitus- 05/17- sacrum examined- no sacral ulcers noted 05/16: patient needs to go from bed to chair to prevent ulcers from re-forming -04/19: exam revealed a previously healed decubitus ulcer of right buttocks. Sacral exam was clear. -Wound care following - recommending medihoney covered with bordered telfa dressing to right lower buttocks stage 2 pressure ulcer daily. -Pt is OOB to chair with help from PT daily -Order placed for turning patient Q2H History of Urinary Tract Infection 05/17: urine culture negative 05/16: + nitrates, 4 RBC, occasional bacteria. - urine culture 05/03- no growth - UA 05/05: +nitrates, occasional bacteria Prophylactic Measure -Labs weekly -Lovenox 40mg SC daily -Pepcid 20mg PO BID -A and D ointment TOP Q*H -Patient is homeless. Used to stay with friend, but no longer welcome there. Goal is to walk with cane so he can go to a [facility] (will not qualify with a walker) -patient will need to work with PT frequently DISPO -Reaching out to family in [facility] -Social Work is following up <Lionel Santo - Last Filed: 06/20/16 21:51> Objective - Vital Signs/Intake and Output Vital Signs (last 24 hours): Temp Pulse Resp BP Pulse Ox 97.1 F L 74 18 117/69 98 06/20/16 15:00 06/20/16 15:00 06/20/16 15:00 06/20/16 15:00 06/20/16 15:00 Intake and Output: 06/20/16 06/21/16 18:59 06:59 Intake Total 300 Output Total 6 Balance 294 - Medications Medications: Current Medications Acetaminophen (Tylenol 325mg Tab) 650 mg PO Q6 PRN PRN Reason: Pain, Mild (1-3) Last Admin: 06/19/16 21:49 Dose: 650 mg Carbamide Peroxide (Debrox Ear Drops) 1 ml AU BID [facility] Last Admin: 06/20/16 17:17 Dose: 5 drop Clotrimazole (Lotrimin 1%) 0 gm TOP BID [facility] Last Admin: 06/20/16 17:18 Dose: 1 applic Docusate Sodium (Colace) 100 mg PO BID [facility] Last Admin: 06/20/16 17:16 Dose: 100 mg Famotidine (Pepcid) 20 mg PO BID [facility] Last Admin: 06/20/16 17:16 Dose: 20 mg Heparin Sodium (Porcine) (Heparin) 5,000 units SC Q8 [facility] Last Admin: 06/20/16 21:43 Dose: 5,000 units Magnesium Oxide (Mag-Ox) 400 mg PO BID [facility] Last Admin: 06/20/16 17:17 Dose: 400 mg Polyethylene Glycol (Miralax) 17 gm PO Q2D [facility] Last Admin: 06/19/16 11:36 Dose: Not Given Silver Sulfadiazine (Silvadene 1% 20 Gm) 0 ea TOP Q12H [facility] Last Admin: 06/20/16 21:46 Dose: Not Given Sodium Chloride (Sodium Chloride Tab) 1 gm PO DAILY@1330 [facility] Last Admin: 06/20/16 13:59 Dose: 1 gm Tamsulosin HCl (Flomax) 0.8 mg PO DAILY [facility] Last Admin: 06/20/16 11:02 Dose: 0.8 mg Tramadol HCl (Ultram) 25 mg PO TID PRN PRN Reason: Pain, moderate (4-7) Last Admin: 06/20/16 08:54 Dose: 25 mg - Labs Labs: 06/19/16 06:49 06/19/16 06:49 Attending/Attestation - Attestation I have personally seen and examined this patient.: Yes I have fully participated in the care of the patient.: Yes I have reviewed all pertinent clinical information, including history, physical exam and plan: Yes
--- NOTE | 2016-05-17 13:44 | RAD ---
PROCEDURE: Right Knee Radiographs. HISTORY: remove knee immobilizer, f/u stress fx COMPARISON: 05/01/2016 FINDINGS: BONES: Marked generalized osteopenia. Cerclage wires transfixing a old patellar fracture are suggested -appearance is unchanged Well corticated ossification -anterior tibial tuberosity bordering -unchanged -old osseous avulsion injury here suggested JOINTS: Medial femoral tibial joint space narrowing possible chondrocalcinosis as well. Patellofemoral joint space narrowing JOINT EFFUSION: None. OTHER FINDINGS: None. IMPRESSION: No change
[2016-05-18] MEDS: Vitamins A & D Oint UD Foilpak TOP SCH ×4 (00:48→17:51)
--- NOTE | 2016-05-18 08:05 | CP.PCM.PN ---
Subjective - Date & Time of Evaluation Date of Evaluation: 05/18/16 Time of Evaluation: 08:00 - Subjective Subjective: Patient complaining of pain behind calf. Also complaining of hip pain. Says knee pain is a little better. Objective - Vital Signs/Intake and Output Vital Signs (last 24 hours): Temp Pulse Resp BP Pulse Ox 97.7 F 85 20 113/68 96 05/18/16 00:29 05/18/16 00:29 05/18/16 00:29 05/18/16 00:29 05/18/16 00:29 Intake and Output: 05/18/16 05/18/16 06:59 18:59 Intake Total 750 Output Total 1200 Balance -450 - Medications Medications: Current Medications Acetaminophen (Tylenol 325mg Tab) 650 mg PO Q6 [facility] Last Admin: 05/18/16 05:40 Dose: 650 mg Bisacodyl (Dulcolax) 5 mg PO Q3D [facility] Last Admin: 05/14/16 17:36 Dose: 5 mg Clotrimazole (Lotrimin 1%) 0 gm TOP BID [facility] Last Admin: 05/17/16 21:47 Dose: 1 applic Docusate Sodium (Colace) 100 mg PO BID [facility] Last Admin: 05/15/16 11:28 Dose: Not Given Enoxaparin Sodium (Lovenox) 40 mg SC DAILY [facility] Last Admin: 05/17/16 11:01 Dose: 40 mg Famotidine (Pepcid) 20 mg PO BID [facility] Last Admin: 05/17/16 17:19 Dose: 20 mg Finasteride (Proscar) 5 mg PO DAILY [facility] Last Admin: 05/17/16 11:01 Dose: 5 mg Magnesium Oxide (Mag-Ox) 400 mg PO BID [facility] Last Admin: 05/17/16 17:19 Dose: 400 mg Phenazopyridine HCl (Pyridium) 200 mg PO TIDPC [facility] Last Admin: 05/17/16 17:19 Dose: 200 mg Polyethylene Glycol (Miralax) 17 gm PO DAILY [facility] Last Admin: 05/11/16 10:47 Dose: Not Given Sodium Chloride (Sodium Chloride Tab) 1 gm PO DAILY@1330 [facility] Last Admin: 05/17/16 13:02 Dose: 1 gm Tamsulosin HCl (Flomax) 0.8 mg PO DAILY [facility] Last Admin: 05/17/16 11:00 Dose: 0.8 mg Tramadol HCl (Ultram) 25 mg PO TID PRN PRN Reason: Pain, moderate (4-7) Last Admin: 05/17/16 11:00 Dose: 25 mg Vitamin A (Vitamin A & D Oint Ud Foilpak) 1 ea TOP Q8H [facility] Last Admin: 05/18/16 00:48 Dose: 1 ea - Labs Labs: 05/15/16 07:15 05/15/16 07:15 - Constitutional Appears: No Acute Distress - Extremities Exam Additional comments: Sensation intact - Neurological Exam Neuro motor strength exam: Left Lower Extremity: 5 (+DP/PF ankle, toes flex/ext) - Skin Skin Exam: Dry, Warm Additional comments: 2x3cm dry scab, no erythema to posterior calf where knee immobilizer ends. Inder and abd at this site, well padded, still skin, will obtain wound care consult. Patient encouraged to get OOB to avoid these pressure sores from lying in bed all day. Assessment and Plan (1) Acetabular protrusion Assessment & Plan: stable no surgical intervention planned at this time Status: Acute (2) Fracture of tibia, proximal, right, closed Assessment & Plan: NWB knee immob new xrays appreciated, reviewed with Dr. Pino Noted healing, still mildly tender Cont PT/OT Patient should be out of bed several times daily d/w Dr. Pino, agrees with above Status: Chronic Review of Systems - Review of Systems Constitutional: no symptoms reported Respiratory: No Resp. distress Cardiology: no symptoms reported Gastrointestinal/Abdominal: no symptoms reported Genitourinary: no symptoms reported Musculoskeletal: see HPI Skin: see HPI Neurological: no symptoms reported All Other Systems: Reviewed and Negative Radiology Interpretation - Radiology Interpretation #2 Interpretation: atient Name / ID : [id number] / [id number] Exam Date : 05/17/2016 08:10:42 ( Approved ) Study Comment : Sex / Age : M / 71Y Creator : Sarahi Osorio V. Dictator : Sarahi Osorio V. 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 Approver2 : Report Date : 05/17/2016 13:38:25 My Comment : PROCEDURE: Right Knee Radiographs. HISTORY: remove knee immobilizer, f/u stress fx COMPARISON: 05/01/2016 FINDINGS: BONES: Marked generalized osteopenia. Cerclage wires transfixing a old patellar fracture are suggested -appearance is unchanged Well corticated ossification -anterior tibial tuberosity bordering -unchanged - old osseous avulsion injury here suggested JOINTS: Medial femoral tibial joint space narrowing possible chondrocalcinosis as well. Patellofemoral joint space narrowing JOINT EFFUSION: None. OTHER FINDINGS: None. IMPRESSION: No change
[2016-05-18] MEDS: Magnesium Oxide 400 mg Tab UD PO SCH ×2 (10:37→17:49)
[2016-05-18] MEDS: Clotrimazole 1% Cream 15 GM TUBE TOP SCH ×2 (10:52→17:54)
[2016-05-18] MEDS: Enoxaparin 40 mg Syringe SC SCH (11:03)
--- NOTE | 2016-05-18 16:13 | CP.PCM.PN ---
<Jessie Luna DO - Last Filed: 05/18/16 16:52> Subjective - Date & Time of Evaluation Date of Evaluation: 05/18/16 Time of Evaluation: 07:30 - Subjective Subjective: PGY1 on Dr. Santo's service: Patient seen and examined along with orthopedics team and again on rounds. Patient states he does not like a lot of the food here so he has not been eating much. Patient concerned that ensure will upset his stomach so he has not been drinking. Discussed with patient the need to call the nurse when he needs to use the bathroom so he can ambulate with assistance. Objective - Vital Signs/Intake and Output Vital Signs (last 24 hours): Temp Pulse Resp BP Pulse Ox 97.8 F 84 20 107/62 95 05/18/16 15:52 05/18/16 15:52 05/18/16 15:52 05/18/16 15:52 05/18/16 15:52 Intake and Output: 05/18/16 05/18/16 06:59 18:59 Intake Total 750 Output Total 1200 Balance -450 - Medications Medications: Current Medications Acetaminophen (Tylenol 325mg Tab) 650 mg PO Q6 [facility] Last Admin: 05/18/16 11:11 Dose: 650 mg Bisacodyl (Dulcolax) 5 mg PO Q3D [facility] Last Admin: 05/14/16 17:36 Dose: 5 mg Clotrimazole (Lotrimin 1%) 0 gm TOP BID [facility] Last Admin: 05/18/16 10:52 Dose: 1 applic Docusate Sodium (Colace) 100 mg PO BID [facility] Last Admin: 05/15/16 11:28 Dose: Not Given Enoxaparin Sodium (Lovenox) 40 mg SC DAILY [facility] Last Admin: 05/18/16 11:03 Dose: 40 mg Famotidine (Pepcid) 20 mg PO BID [facility] Last Admin: 05/18/16 10:37 Dose: 20 mg Finasteride (Proscar) 5 mg PO DAILY [facility] Last Admin: 05/18/16 10:37 Dose: 5 mg Magnesium Oxide (Mag-Ox) 400 mg PO BID [facility] Last Admin: 05/18/16 10:37 Dose: 400 mg Phenazopyridine HCl (Pyridium) 200 mg PO TIDPC [facility] Last Admin: 03/09/17 13:51 Dose: 200 mg Polyethylene Glycol (Miralax) 17 gm PO DAILY [facility] Last Admin: 05/11/16 10:47 Dose: Not Given Sodium Chloride (Sodium Chloride Tab) 1 gm PO DAILY@1330 [facility] Last Admin: 05/18/16 13:51 Dose: 1 gm Tamsulosin HCl (Flomax) 0.8 mg PO DAILY [facility] Last Admin: 05/18/16 10:37 Dose: 0.8 mg Tramadol HCl (Ultram) 25 mg PO TID PRN PRN Reason: Pain, moderate (4-7) Last Admin: 05/17/16 11:00 Dose: 25 mg Vitamin A (Vitamin A & D Oint Ud Foilpak) 1 ea TOP Q8H [facility] Last Admin: 05/18/16 11:02 Dose: 1 ea - Labs Labs: 05/15/16 07:15 05/15/16 07:15 - Constitutional Appears: No Acute Distress, Chronically Ill - Head Exam Head Exam: ATRAUMATIC, NORMOCEPHALIC - Eye Exam Eye Exam: EOMI - ENT Exam ENT Exam: Mucous Membranes Moist - Respiratory Exam Respiratory Exam: Clear to Ausculation Bilateral, NORMAL BREATHING PATTERN - Cardiovascular Exam Cardiovascular Exam: +S1, +S2 - GI/Abdominal Exam GI & Abdominal Exam: Soft, Tenderness (diffuse), Normal Bowel Sounds - Extremities Exam Additional comments: right posterior/ lateral calf with 3cm dark brown lesion, stuck on appearance, dry and flaking, non-tender to palpation - Back Exam Additional comments: no skin breakdown - Neurological Exam Neurological Exam: Alert, Awake - Skin Skin Exam: Normal Color, Warm Assessment and Plan - Assessment and Plan (Free Text) Assessment: Assessment: Facial rash resolved ESR 32 CRP 1.51 RA- negative A&D ointment to face Diarrhea check stool culture 05/18: c. diff negative, no salmonella 05/17: ova and parasites negative Fracture of tibia, proximal, right, closed; pain management and physical therapy -05/18- repeat xray with no significant change -05/11- per ortho team: patient to remain non-weight bearing to right lower extremity -05/09- right knee xrays ordered by orthopedics team- No acute fracture. Status post ORIF old patellar fracture No significant interval change compared to the prior examination Will follow up recommendations from orthopedics team -05/05:Ortho Dr. Salomno [place] following- no orthopedic intervention indicated at this time, strict NWB, PT/OT -Impaction/insufficiency fracture, lateral aspect proximal tibia, non operative , treated with strict NWB and immobilization -At least 6 weeks old by imaging -Tylenol 650 mg PO Q6 PRN mild pain -Oxycodone 5mg q8 prn severe pain -Daily physical therapy -Nonweight bearing on R leg -L knee x-ray: severe osteopenia. Sclerotic changes about the posterior proximal tibia may relate to a sclerotic healing response of a prior stress fracture here. no tibial plateau depressed fracture. The sclerosis is perceived on the prior 04/21 study; no interval pathology appreciated between 2 exams. If symptoms worsen consider MRI. 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 adding sodium chloride tablets 1g daily 05/05: -Supine BP: 114/71, HR 75 -Sitting BP: 113/71, HR 90 -Standing BP: 116/72, HR 94 - Fluids DC Gait Instability; will continue with PT/OT -Patient uses walker- NWB at this time RLE -Chronic RLE pain (since admission) due to slippage of mechanical hardware in his leg from prior procedure -R knee immobilizer in place and patient on strict NWB status -Xray 04/03: superior migration of prosthesis. sclerosi about right acetabulum -daily physical therapy -PT 05/05: decline in transfers due to limitation from right hip and knee pain. patient still able to tolerate hallway ambulation, no episode of orthostatic hypotension post gait. recommending room/hallway ambulation w/ nursing for AM/ PM care or toileting. - PT 05/09: decline in function limited by persisting right groin/ hip and knee pain. patient still recommended for daily out of bed during am/pm care. cleared for ambulation in the room with standard walker non weight bearing right lower extremity -PT 05/10: mild decline in transfers due to pain in right knee and hip. NWB to RLE. Patient with episode of hypotension post ambulation- no syncope. -05/16: discussed with PT. Patient function declining due to immobility. Patient needs to go from bed to chair. Patient should also be ambulating to the bathroom with assist. Patient becomes hypotensive with walking. -05/17: patient assisted to chair. discussed with nursing the need for ambulation to and from bathroom with assistance as well as transfer from bed to chair Anemia; will monitor 05/15: hgb 11.0 -chronic -monitor with weekly labs Abdominal Pain; resolved 05/16: stop all stool softeners -patient with multiple soft stools- will stop miralax for now -patient has been complaining of abdominal pain since admission -Colace 100mg PO BID -Dulcolax every 3 days -Inguinal hernia with unobstructed bowel loop involvement; protruded 04/18 due to straining on toilet. -05/03/16 B/L inguinal hernias reduced today without incidence -Abdominal US 04/01: Gallstones, no acute cholecystitis, no hydronephrosis. trace ascites (see full report) -Abd/pelv CT 03/11: mod b/l pleural effusions and assoc consolidations; tiny probably gallstones within the gallbladder; small to moderate hiatal hernia; R inguinal hernia which contains small loops of bowel, likely small bowel- no evidence of obstruction as oral contrast is noted within R colon. No definite free air, however evaluation for pneumoperitoneum is suboptimal. Moderate to severe constipation with questionable impaction. Prostate gland 4.1cm x 4.6cm. Urinary bladder appears unremarkable. Small amount of fluid within a right inguinal hernia. Sclerosis of right iliac wing. Extensive anasarca. Aneursmal dilatation of ascending thoracic aorta; Currently 4.5 cm. Patient needs repeat Ct imaging every 6 months (July 2016) BPH;chronic 05/18: Pyridium 200 mg PO TIDPC- discontinued -Flomax 0.8 mg PO daily -Finasteride 5 mg PO daily -Urology Dr. Hughes on board Onychomycosis;chronic and improving -patient had aseptic debridement of toenails x 10 -clotrimazole cream to be applied to feet b/l BID -podiatry consult- help appreciated Sacral decubitus- 05/17- sacrum examined- no sacral ulcers noted 05/16: patient needs to go from bed to chair to prevent ulcers from re-forming -04/19: exam revealed a previously healed decubitus ulcer of right buttocks. Sacral exam was clear. -Wound care following - recommending medihoney covered with bordered telfa dressing to right lower buttocks stage 2 pressure ulcer daily. -Pt is OOB to chair with help from PT daily -Order placed for turning patient Q2H History of Urinary Tract Infection 05/17: urine culture negative 05/16: + nitrates, 4 RBC, occasional bacteria. - urine culture 05/03- no growth - UA 05/05: +nitrates, occasional bacteria Prophylactic Measure -Labs weekly -Lovenox 40mg SC daily -Pepcid 20mg PO BID -A and D ointment TOP Q*H -Patient is homeless. Used to stay with friend, but no longer welcome there. Goal is to walk with cane so he can go to a [place] [facility] facility (will not qualify with a walker) -patient will need to work with PT frequently - right calf with dark skin lesion underneath knee immobilizer- wound care on board- applying medihoney DISPO -Reaching out to family in [facility] -Social Work is following up <Lionel Satno - Last Filed: 06/20/16 21:56> Objective - Vital Signs/Intake and Output Vital Signs (last 24 hours): Temp Pulse Resp BP Pulse Ox 97.1 F L 74 18 117/69 98 06/20/16 15:00 06/20/16 15:00 06/20/16 15:00 06/20/16 15:00 06/20/16 15:00 Intake and Output: 06/20/16 06/21/16 18:59 06:59 Intake Total 300 Output Total 6 Balance 294 - Medications Medications: Current Medications Acetaminophen (Tylenol 325mg Tab) 650 mg PO Q6 PRN PRN Reason: Pain, Mild (1-3) Last Admin: 06/19/16 21:49 Dose: 650 mg Carbamide Peroxide (Debrox Ear Drops) 1 ml AU BID [facility] Last Admin: 06/20/16 17:17 Dose: 5 drop Clotrimazole (Lotrimin 1%) 0 gm TOP BID [facility] Last Admin: 06/20/16 17:18 Dose: 1 applic Docusate Sodium (Colace) 100 mg PO BID [facility] Last Admin: 06/20/16 17:16 Dose: 100 mg Famotidine (Pepcid) 20 mg PO BID [facility] Last Admin: 06/20/16 17:16 Dose: 20 mg Heparin Sodium (Porcine) (Heparin) 5,000 units SC Q8 [facility] Last Admin: 06/20/16 21:43 Dose: 5,000 units Magnesium Oxide (Mag-Ox) 400 mg PO BID [facility] Last Admin: 06/20/16 17:17 Dose: 400 mg Polyethylene Glycol (Miralax) 17 gm PO Q2D [facility] Last Admin: 06/19/16 11:36 Dose: Not Given Silver Sulfadiazine (Silvadene 1% 20 Gm) 0 ea TOP Q12H [facility] Last Admin: 06/20/16 21:46 Dose: Not Given Sodium Chloride (Sodium Chloride Tab) 1 gm PO DAILY@1330 [facility] Last Admin: 06/20/16 13:59 Dose: 1 gm Tamsulosin HCl (Flomax) 0.8 mg PO DAILY [facility] Last Admin: 06/20/16 11:02 Dose: 0.8 mg Tramadol HCl (Ultram) 25 mg PO TID PRN PRN Reason: Pain, moderate (4-7) Last Admin: 06/20/16 21:52 Dose: 25 mg - Labs Labs: 06/19/16 06:49 06/19/16 06:49 Attending/Attestation - Attestation I have personally seen and examined this patient.: Yes I have fully participated in the care of the patient.: Yes I have reviewed all pertinent clinical information, including history, physical exam and plan: Yes
[2016-05-19] MEDS: Vitamins A & D Oint UD Foilpak TOP SCH ×4 (01:04→17:44)
[2016-05-19] MEDS: Enoxaparin 40 mg Syringe SC SCH (10:23)
[2016-05-19] MEDS: Magnesium Oxide 400 mg Tab UD PO SCH ×2 (10:24→17:36)
[2016-05-19] MEDS: Clotrimazole 1% Cream 15 GM TUBE TOP SCH ×2 (10:49→17:42)
[2016-05-19] MEDS: Tramadol 25 mg PO PRN (13:39)
--- NOTE | 2016-05-19 18:49 | CP.PCM.PN ---
<Jessie Luna DO - Last Filed: 05/19/16 18:46> Subjective - Date & Time of Evaluation Date of Evaluation: 05/19/16 Time of Evaluation: 07:30 - Subjective Subjective: PGY1 on Dr Santo's service: Patient seen and examined. Patient with complaint right hip pain. Patient able to ambulate with assistance to chair at bedside. Patient encouraged again to call for assistance to use restroom and is encouraged to get out of bed. Objective - Vital Signs/Intake and Output Vital Signs (last 24 hours): Temp Pulse Resp BP Pulse Ox 98 F 84 20 116/70 95 05/19/16 17:38 05/19/16 16:45 05/19/16 08:24 05/19/16 16:45 05/19/16 16:45 Intake and Output: 05/19/16 05/19/16 06:59 18:59 Intake Total 700 400 Output Total 1200 Balance -500 400 - Medications Medications: Current Medications Acetaminophen (Tylenol 325mg Tab) 650 mg PO Q6 [facility] Last Admin: 05/19/16 17:38 Dose: 650 mg Bisacodyl (Dulcolax) 5 mg PO Q3D [facility] Last Admin: 05/14/16 17:36 Dose: 5 mg Clotrimazole (Lotrimin 1%) 0 gm TOP BID [facility] Last Admin: 05/19/16 17:42 Dose: 1 applic Docusate Sodium (Colace) 100 mg PO BID [facility] Last Admin: 05/19/16 17:36 Dose: 100 mg Enoxaparin Sodium (Lovenox) 40 mg SC DAILY [facility] Last Admin: 05/19/16 10:23 Dose: 40 mg Famotidine (Pepcid) 20 mg PO BID [facility] Last Admin: 05/19/16 17:36 Dose: 20 mg Finasteride (Proscar) 5 mg PO DAILY [facility] Last Admin: 05/19/16 10:24 Dose: 5 mg Magnesium Oxide (Mag-Ox) 400 mg PO BID [facility] Last Admin: 05/19/16 17:36 Dose: 400 mg Polyethylene Glycol (Miralax) 17 gm PO DAILY [facility] Last Admin: 05/11/16 10:47 Dose: Not Given Sodium Chloride (Sodium Chloride Tab) 1 gm PO DAILY@1330 [facility] Last Admin: 05/19/16 13:40 Dose: 1 gm Tamsulosin HCl (Flomax) 0.8 mg PO DAILY [facility] Last Admin: 05/19/16 10:24 Dose: 0.8 mg Tramadol HCl (Ultram) 25 mg PO TID PRN PRN Reason: Pain, moderate (4-7) Last Admin: 05/19/16 13:39 Dose: 25 mg Vitamin A (Vitamin A & D Oint Ud Foilpak) 1 ea TOP Q8H [facility] Last Admin: 05/19/16 17:44 Dose: 1 ea - Labs Labs: 05/15/16 07:15 05/15/16 07:15 - Constitutional Appears: No Acute Distress, Chronically Ill - Head Exam Head Exam: ATRAUMATIC, NORMAL INSPECTION - Eye Exam Eye Exam: EOMI - ENT Exam ENT Exam: Mucous Membranes Moist - Respiratory Exam Respiratory Exam: Clear to Ausculation Bilateral, NORMAL BREATHING PATTERN - Cardiovascular Exam Cardiovascular Exam: +S1, +S2 - GI/Abdominal Exam GI & Abdominal Exam: Soft, Tenderness (right lower abdomen), Normal Bowel Sounds - Extremities Exam Extremities Exam: absent: Pedal Edema Additional comments: right knee in immobilizer - Neurological Exam Neurological Exam: Alert, Awake - Psychiatric Exam Psychiatric exam: Normal Affect - Skin Skin Exam: Dry, Warm Assessment and Plan - Assessment and Plan (Free Text) Assessment: Facial rash resolved ESR 32 CRP 1.51 RA- negative A&D ointment to face Diarrhea check stool culture 05/18: c. diff negative, no salmonella 05/17: ova and parasites negative Fracture of tibia, proximal, right, closed; pain management and physical therapy -05/18- repeat xray with no significant change -05/11- per ortho team: patient to remain non-weight bearing to right lower extremity -05/09- right knee xrays ordered by orthopedics team- No acute fracture. Status post ORIF old patellar fracture No significant interval change compared to the prior examination Will follow up recommendations from orthopedics team -05/05:Ortho Dr. Pino and Jayce West PA following- no orthopedic intervention indicated at this time, strict NWB, PT/OT -Impaction/insufficiency fracture, lateral aspect proximal tibia, non operative , treated with strict NWB and immobilization -At least 6 weeks old by imaging -Tylenol 650 mg PO Q6 PRN mild pain -Oxycodone 5mg q8 prn severe pain -Daily physical therapy -Nonweight bearing on R leg -L knee x-ray: severe osteopenia. Sclerotic changes about the posterior proximal tibia may relate to a sclerotic healing response of a prior stress fracture here. no tibial plateau depressed fracture. The sclerosis is perceived on the prior 04/21 study; no interval pathology appreciated between 2 exams. If symptoms worsen consider MRI. 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 adding sodium chloride tablets 1g daily 05/05: -Supine BP: 114/71, HR 75 -Sitting BP: 113/71, HR 90 -Standing BP: 116/72, HR 94 - Fluids DC Gait Instability; will continue with PT/OT -Patient uses walker- NWB at this time RLE -Chronic RLE pain (since admission) due to slippage of mechanical hardware in his leg from prior procedure -R knee immobilizer in place and patient on strict NWB status -Xray 04/03: superior migration of prosthesis. sclerosi about right acetabulum -daily physical therapy -PT 05/05: decline in transfers due to limitation from right hip and knee pain. patient still able to tolerate hallway ambulation, no episode of orthostatic hypotension post gait. recommending room/hallway ambulation w/ nursing for AM/ PM care or toileting. - PT 05/09: decline in function limited by persisting right groin/ hip and knee pain. patient still recommended for daily out of bed during am/pm care. cleared for ambulation in the room with standard walker non weight bearing right lower extremity -PT 05/10: mild decline in transfers due to pain in right knee and hip. NWB to RLE. Patient with episode of hypotension post ambulation- no syncope. -05/16: discussed with PT. Patient function declining due to immobility. Patient needs to go from bed to chair. Patient should also be ambulating to the bathroom with assist. Patient becomes hypotensive with walking. -05/17: patient assisted to chair. discussed with nursing the need for ambulation to and from bathroom with assistance as well as transfer from bed to chair Anemia; will monitor 05/15: hgb 11.0 -chronic -monitor with weekly labs Abdominal Pain; resolved stop all stool softeners -patient with multiple soft stools- will stop miralax for now -patient has been complaining of abdominal pain since admission -Colace 100mg PO BID -Dulcolax every 3 days -Inguinal hernia with unobstructed bowel loop involvement; protruded 04/18 due to straining on toilet. -05/03/16 B/L inguinal hernias reduced today without incidence -Abdominal US 04/01: Gallstones, no acute cholecystitis, no hydronephrosis. trace ascites (see full report) -Abd/pelv CT 03/11: mod b/l pleural effusions and assoc consolidations; tiny probably gallstones within the gallbladder; small to moderate hiatal hernia; R inguinal hernia which contains small loops of bowel, likely small bowel- no evidence of obstruction as oral contrast is noted within R colon. No definite free air, however evaluation for pneumoperitoneum is suboptimal. Moderate to severe constipation with questionable impaction. Prostate gland 4.1cm x 4.6cm. Urinary bladder appears unremarkable. Small amount of fluid within a right inguinal hernia. Sclerosis of right iliac wing. Extensive anasarca. Aneursmal dilatation of ascending thoracic aorta; Currently 4.5 cm. Patient needs repeat Ct imaging every 6 months (July 2016) BPH;chronic 05/18: Pyridium 200 mg PO TIDPC- discontinued -Flomax 0.8 mg PO daily -Finasteride 5 mg PO daily -Urology Dr. Hughes on board Onychomycosis;chronic and improving -patient had aseptic debridement of toenails x 10 -clotrimazole cream to be applied to feet b/l BID -podiatry consult- help appreciated Sacral decubitus- 05/17- sacrum examined- no sacral ulcers noted 05/16: patient needs to go from bed to chair to prevent ulcers from re-forming -04/19: exam revealed a previously healed decubitus ulcer of right buttocks. Sacral exam was clear. -Wound care following - recommending medihoney covered with bordered telfa dressing to right lower buttocks stage 2 pressure ulcer daily. -Pt is OOB to chair with help from PT daily -Order placed for turning patient Q2H History of Urinary Tract Infection 05/17: urine culture negative 05/16: + nitrates, 4 RBC, occasional bacteria. - urine culture 05/03- no growth - UA 05/05: +nitrates, occasional bacteria Prophylactic Measure -Labs weekly -Lovenox 40mg SC daily -Pepcid 20mg PO BID -A and D ointment TOP Q*H -Patient is homeless. Used to stay with friend, but no longer welcome there. Goal is to walk with cane so he can go to a prison (will not qualify with a walker) -patient will need to work with PT frequently - right calf with dark skin lesion underneath knee immobilizer- wound care on board- applying medihoney DISPO -Reaching out to family in [facility] - no response from family per case management -Social Work is following up <Lionel Santo - Last Filed: 06/20/16 21:59> Objective - Vital Signs/Intake and Output Vital Signs (last 24 hours): Temp Pulse Resp BP Pulse Ox 97.1 F L 74 18 117/69 98 06/20/16 15:00 06/20/16 15:00 06/20/16 15:00 06/20/16 15:00 06/20/16 15:00 Intake and Output: 06/20/16 06/21/16 18:59 06:59 Intake Total 300 Output Total 6 Balance 294 - Medications Medications: Current Medications Acetaminophen (Tylenol 325mg Tab) 650 mg PO Q6 PRN PRN Reason: Pain, Mild (1-3) Last Admin: 06/19/16 21:49 Dose: 650 mg Carbamide Peroxide (Debrox Ear Drops) 1 ml AU BID [facility] Last Admin: 06/20/16 17:17 Dose: 5 drop Clotrimazole (Lotrimin 1%) 0 gm TOP BID [facility] Last Admin: 06/20/16 17:18 Dose: 1 applic Docusate Sodium (Colace) 100 mg PO BID [facility] Last Admin: 06/20/16 17:16 Dose: 100 mg Famotidine (Pepcid) 20 mg PO BID [facility] Last Admin: 06/20/16 17:16 Dose: 20 mg Heparin Sodium (Porcine) (Heparin) 5,000 units SC Q8 [facility] Last Admin: 06/20/16 21:43 Dose: 5,000 units Magnesium Oxide (Mag-Ox) 400 mg PO BID [facility] Last Admin: 04/11/17 17:17 Dose: 400 mg Polyethylene Glycol (Miralax) 17 gm PO Q2D [facility] Last Admin: 06/19/16 11:36 Dose: Not Given Silver Sulfadiazine (Silvadene 1% 20 Gm) 0 ea TOP Q12H [facility] Last Admin: 06/20/16 21:46 Dose: Not Given Sodium Chloride (Sodium Chloride Tab) 1 gm PO DAILY@1330 [facility] Last Admin: 06/20/16 13:59 Dose: 1 gm Tamsulosin HCl (Flomax) 0.8 mg PO DAILY [facility] Last Admin: 06/20/16 11:02 Dose: 0.8 mg Tramadol HCl (Ultram) 25 mg PO TID PRN PRN Reason: Pain, moderate (4-7) Last Admin: 06/20/16 21:52 Dose: 25 mg - Labs Labs: 06/19/16 06:49 06/19/16 06:49 Attending/Attestation - Attestation I have personally seen and examined this patient.: Yes I have fully participated in the care of the patient.: Yes I have reviewed all pertinent clinical information, including history, physical exam and plan: Yes
[2016-05-20] MEDS: Vitamins A & D Oint UD Foilpak TOP SCH ×3 (00:44→17:46)
[2016-05-20] MEDS: Tramadol 25 mg PO PRN (08:41)
[2016-05-20] MEDS: Enoxaparin 40 mg Syringe SC SCH (10:24)
[2016-05-20] MEDS: Clotrimazole 1% Cream 15 GM TUBE TOP SCH ×2 (10:25→17:48)
[2016-05-20] MEDS: Magnesium Oxide 400 mg Tab UD PO SCH ×2 (10:26→17:46)
[2016-05-20] MEDS: POLYETHYLENE GLYCOL 3350 17 GM/Dose PACKET PO SCH (10:26)
--- NOTE | 2016-05-20 14:50 | CP.PCM.PN ---
<Jessie Luna DO - Last Filed: 05/20/16 14:46> Subjective - Date & Time of Evaluation Date of Evaluation: 05/20/16 Time of Evaluation: 07:50 - Subjective Subjective: PGY1 on Dr. Garcia's service: Patient seen and examined. Patient in bed and encouraged to go to chair and request assistance to the bathroom. Patient again with dry skin on the face this morning and was encouraged to moisturize. Patient complaining of frequent urination that comes without much warning. Objective - Vital Signs/Intake and Output Vital Signs (last 24 hours): Temp Pulse Resp BP Pulse Ox 97.8 F 110 H 20 102/59 L 97 05/20/16 00:00 05/20/16 00:00 05/20/16 00:00 05/20/16 00:00 05/20/16 00:00 Intake and Output: 05/20/16 05/20/16 06:59 18:59 Intake Total 300 Output Total 500 Balance -200 - Medications Medications: Current Medications Acetaminophen (Tylenol 325mg Tab) 650 mg PO Q6 COUNTS [facility] BEDS AT [facility] Last Admin: 05/20/16 13:20 Dose: 650 mg Clotrimazole (Lotrimin 1%) 0 gm TOP BID COUNTS [facility] 234 B[facility]S [facility] Last Admin: 05/20/16 10:25 Dose: 1 applic Enoxaparin Sodium (Lovenox) 40 mg SC DAILY [facility]S [facility] 234 [facility]S [facility] Last Admin: 05/20/16 10:24 Dose: 40 mg Famotidine (Pepcid) 20 mg PO BID COUNTS [facility] 234 [facility]S [facility] Last Admin: 05/20/16 10:26 Dose: 20 mg Finasteride (Proscar) 5 mg PO DAILY [facility] 234 [facility]S [facility] Last Admin: 05/20/16 10:26 Dose: 5 mg Magnesium Oxide (Mag-Ox) 400 mg PO BID [facility] 234 [facility]S [facility] Last Admin: 05/20/16 10:26 Dose: 400 mg Sodium Chloride (Sodium Chloride Tab) 1 gm PO DAILY@1330 COUNTS [facility]CLUDE 234 [facility]S [facility] Last Admin: 05/20/16 13:20 Dose: 1 gm Tamsulosin HCl (Flomax) 0.8 mg PO DAILY COUNTS [facility] 234 [facility]S [facility] Last Admin: 05/20/16 10:24 Dose: 0.8 mg Tramadol HCl (Ultram) 25 mg PO TID PRN PRN Reason: Pain, moderate (4-7) Last Admin: 05/20/16 08:41 Dose: 25 mg Vitamin A (Vitamin A & D Oint Ud Foilpak) 1 ea TOP Q8H [facility] Last Admin: 05/20/16 10:27 Dose: 1 ea - Labs Labs: 05/15/16 07:15 05/15/16 07:15 - Constitutional Appears: Non-toxic, No Acute Distress - Eye Exam Eye Exam: EOMI - ENT Exam ENT Exam: Mucous Membranes Moist - Respiratory Exam Respiratory Exam: Clear to Ausculation Bilateral. absent: Chest Wall Tenderness - Cardiovascular Exam Cardiovascular Exam: +S1, +S2 - GI/Abdominal Exam GI & Abdominal Exam: Soft, Tenderness, Normal Bowel Sounds - Extremities Exam Additional comments: right hip pain pitting edema right leg right knee immobilizer in place - Neurological Exam Neurological Exam: Alert, Awake - Skin Skin Exam: Dry, Warm Assessment and Plan - Assessment and Plan (Free Text) Assessment: Facial rash resembles seborrheic dermatitis, patient encouraged to moisturize ESR 32 CRP 1.51 RA- negative A&D ointment to face Diarrhea check stool culture 05/18: c. diff negative, no salmonella 05/17: ova and parasites negative Fracture of tibia, proximal, right, closed; pain management and physical therapy -05/20- ordered venous doppler right leg for swelling -05/18- repeat xray with no significant change -05/11- per ortho team: patient to remain non-weight bearing to right lower extremity -05/09- right knee xrays ordered by orthopedics team- No acute fracture. Status post ORIF old patellar fracture No significant interval change compared to the prior examination Will follow up recommendations from orthopedics team -05/05:Ortho Dr. Pino and Jayce West PA following- no orthopedic intervention indicated at this time, strict NWB, PT/OT -Impaction/insufficiency fracture, lateral aspect proximal tibia, non operative , treated with strict NWB and immobilization -At least 6 weeks old by imaging -Tylenol 650 mg PO Q6 PRN mild pain -Oxycodone 5mg q8 prn severe pain -Daily physical therapy -Nonweight bearing on R leg -L knee x-ray: severe osteopenia. Sclerotic changes about the posterior proximal tibia may relate to a sclerotic healing response of a prior stress fracture here. no tibial plateau depressed fracture. The sclerosis is perceived on the prior 04/21 study; no interval pathology appreciated between 2 exams. If symptoms worsen consider MRI. 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 adding sodium chloride tablets 1g daily 05/05: -Supine BP: 114/71, HR 75 -Sitting BP: 113/71, HR 90 -Standing BP: 116/72, HR 94 Gait Instability; will continue with PT/OT -Patient uses walker- NWB at this time RLE -Chronic RLE pain (since admission) due to slippage of mechanical hardware in his leg from prior procedure -R knee immobilizer in place and patient on strict NWB status -Xray 04/03: superior migration of prosthesis. sclerosi about right acetabulum -daily physical therapy -PT 05/05: decline in transfers due to limitation from right hip and knee pain. patient still able to tolerate hallway ambulation, no episode of orthostatic hypotension post gait. recommending room/hallway ambulation w/ nursing for AM/ PM care or toileting. - PT 05/09: decline in function limited by persisting right groin/ hip and knee pain. patient still recommended for daily out of bed during am/pm care. cleared for ambulation in the room with standard walker non weight bearing right lower extremity -PT 05/10: mild decline in transfers due to pain in right knee and hip. NWB to RLE. Patient with episode of hypotension post ambulation- no syncope. -05/16: discussed with PT. Patient function declining due to immobility. Patient needs to go from bed to chair. Patient should also be ambulating to the bathroom with assist. Patient becomes hypotensive with walking. -05/17: patient assisted to chair. discussed with nursing the need for ambulation to and from bathroom with assistance as well as transfer from bed to chair Anemia; will monitor 05/15: hgb 11.0 -chronic -monitor with weekly labs Abdominal Pain; resolved stop all stool softeners -patient with multiple soft stools- will stop miralax for now -patient has been complaining of abdominal pain since admission -Colace 100mg PO BID -Dulcolax every 3 days -Inguinal hernia with unobstructed bowel loop involvement; protruded 04/18 due to straining on toilet. -05/03/16 B/L inguinal hernias reduced today without incidence -Abdominal US 04/01: Gallstones, no acute cholecystitis, no hydronephrosis. trace ascites (see full report) -Abd/pelv CT 03/11: mod b/l pleural effusions and assoc consolidations; tiny probably gallstones within the gallbladder; small to moderate hiatal hernia; R inguinal hernia which contains small loops of bowel, likely small bowel- no evidence of obstruction as oral contrast is noted within R colon. No definite free air, however evaluation for pneumoperitoneum is suboptimal. Moderate to severe constipation with questionable impaction. Prostate gland 4.1cm x 4.6cm. Urinary bladder appears unremarkable. Small amount of fluid within a right inguinal hernia. Sclerosis of right iliac wing. Extensive anasarca. Aneursmal dilatation of ascending thoracic aorta; Currently 4.5 cm. Patient needs repeat Ct imaging every 6 months (July 2016) BPH;chronic 05/18: Pyridium 200 mg PO TIDPC- discontinued -Flomax 0.8 mg PO daily -Finasteride 5 mg PO daily -Urology Dr. Hughes on board Onychomycosis;chronic and improving -patient had aseptic debridement of toenails x 10 -clotrimazole cream to be applied to feet b/l BID -podiatry consult- help appreciated Sacral decubitus- 05/17- sacrum examined- no sacral ulcers noted 05/16: patient needs to go from bed to chair to prevent ulcers from re-forming -04/19: exam revealed a previously healed decubitus ulcer of right buttocks. Sacral exam was clear. -Wound care following - recommending medihoney covered with bordered telfa dressing to right lower buttocks stage 2 pressure ulcer daily. -Pt is OOB to chair with help from PT daily -Order placed for turning patient Q2H History of Urinary Tract Infection 05/20: ordered repeat urine culture for urinary frequency 05/17: urine culture negative 05/16: + nitrates, 4 RBC, occasional bacteria. - urine culture 05/03- no growth - UA 05/05: +nitrates, occasional bacteria Prophylactic Measure -Labs weekly -Lovenox 40mg SC daily -Pepcid 20mg PO BID -A and D ointment TOP Q*H -Patient is homeless. Used to stay with friend, but no longer welcome there. Goal is to walk with cane so he can go to a prison (will not qualify with a walker) -patient will need to work with PT frequently - right calf with dark skin lesion underneath knee immobilizer- wound care on board- applying medihoney DISPO -Reaching out to family in [facility] - no response from family per case management -Social Work is following up <Esme Garcia V - Last Filed: 05/25/16 11:05> Objective - Vital Signs/Intake and Output Vital Signs (last 24 hours): Temp Pulse Resp BP Pulse Ox 97.9 F 70 20 105/68 97 05/25/16 08:00 05/25/16 08:00 05/25/16 08:00 05/25/16 08:00 05/25/16 08:00 Intake and Output: 05/25/16 05/25/16 06:59 18:59 Intake Total 200 300 Output Total 600 700 Balance -400 -400 - Medications Medications: Current Medications Acetaminophen (Tylenol 325mg Tab) 650 mg PO Q6 COUNTS INCLUDE 234 BEDS AT [facility] Last Admin: 05/25/16 06:00 Dose: 650 mg Clotrimazole (Lotrimin 1%) 0 gm TOP BID COUNTS INCLUDE 234 BEDS AT [facility] Last Admin: 05/24/16 18:00 Dose: 1 applic Docusate Sodium (Colace) 100 mg PO BID COUNTS [facility]CLUDE 234 BEDS AT [facility] Last Admin: 05/24/16 17:28 Dose: 100 mg Enoxaparin Sodium (Lovenox) 40 mg SC DAILY COUNTS INCLUDE 234 BEDS AT [facility] Famotidine (Pepcid) 20 mg PO BID COUNTS INCLUDE 234 BEDS AT [facility] Last Admin: 05/24/16 17:28 Dose: 20 mg Finasteride (Proscar) 5 mg PO DAILY COUNTS [facility]CLUDE 234 BEDS AT [facility] Last Admin: 05/24/16 10:05 Dose: 5 mg Magnesium Oxide (Mag-Ox) 400 mg PO BID COUNTS INCLUDE 234 BEDS [facility] Last Admin: 05/24/16 18:00 Dose: 400 mg Sodium Chloride (Sodium Chloride Tab) 1 gm PO DAILY@1330 COUNTS INCLUDE 234 BEDS [facility] Last Admin: 05/24/16 13:54 Dose: 1 gm Tamsulosin HCl (Flomax) 0.8 mg PO DAILY COUNTS INCLUDE 234 BEDS AT [facility] Last Admin: 05/24/16 10:05 Dose: 0.8 mg Tramadol HCl (Ultram) 25 mg PO TID PRN PRN Reason: Pain, moderate (4-7) Last Admin: 05/24/16 10:05 Dose: 25 mg Vitamin A (Vitamin A & D Oint Ud Foilpak) 1 ea TOP Q8H [facility] Last Admin: 05/25/16 01:00 Dose: 1 ea - Labs Labs: 05/22/16 14:19 05/22/16 07:55 Attending/Attestation - Attestation I have personally seen and examined this patient.: Yes I have fully participated in the care of the patient.: Yes I have reviewed all pertinent clinical information, including history, physical exam and plan: Yes Notes (Text): This is late computer entry for 05/20/16. Patient seen, examined and case discussed with day-time resident. Patient has pronounced flaky rash limited to his face and daniels not noted in prior notes. Patient ordered for ESR, RAYA w reflex, and CRP. Likely this is seborrhic dermatitis. Patient also reporting diarrhea? not on antibiotics currently. Ordered for C. Dif. Patient is reporting urinary frequency with hx of BPH, ordered for urine culture r/o UTI. Patient is encouraged to be OOB per orthopedics.
[2016-05-20] MEDS: Sodium Chloride 0.9% 1,000 ML IV SCH (16:17)
[2016-05-21] MEDS: Sodium Chloride 0.9% 1,000 ML IV SCH ×3 (01:50→21:43)
[2016-05-21] MEDS: Vitamins A & D Oint UD Foilpak TOP SCH ×3 (03:27→18:22)
--- NOTE | 2016-05-21 09:55 | CP.PCM.PN ---
<Jessie Luna DO - Last Filed: 05/21/16 15:24> Subjective - Date & Time of Evaluation Date of Evaluation: 05/21/16 Time of Evaluation: 09:54 - Subjective Subjective: PGY1 on Dr. Santo's service: Patient seen and examined. Patient with complaint of frequent urination as well as pain in right hip and leg. Patient sitting in bed and encouraged to get out of bed to chair. Objective - Vital Signs/Intake and Output Vital Signs (last 24 hours): Temp Pulse Resp BP Pulse Ox 98.7 F 71 20 103/63 96 05/21/16 08:00 05/21/16 08:00 05/21/16 08:00 05/21/16 08:00 05/21/16 08:00 Intake and Output: 05/21/16 05/21/16 06:59 18:59 Intake Total Balance - Medications Medications: Current Medications Acetaminophen (Tylenol 325mg Tab) 650 mg PO Q6 [facility] Last Admin: 05/21/16 06:45 Dose: 650 mg Clotrimazole (Lotrimin 1%) 0 gm TOP BID [facility] Last Admin: 05/20/16 17:48 Dose: 1 applic Enoxaparin Sodium (Lovenox) 40 mg SC DAILY [facility] Last Admin: 05/20/16 10:24 Dose: 40 mg Famotidine (Pepcid) 20 mg PO BID [facility] Last Admin: 05/20/16 17:46 Dose: 20 mg Finasteride (Proscar) 5 mg PO DAILY [facility] Last Admin: 05/20/16 10:26 Dose: 5 mg Sodium Chloride (Sodium Chloride 0.9%) 1,000 mls @ 100 mls/hr IV .Q10H [facility] Last Admin: 05/21/16 01:50 Dose: 100 mls/hr Magnesium Oxide (Mag-Ox) 400 mg PO BID [facility] Last Admin: 05/20/16 17:46 Dose: 400 mg Sodium Chloride (Sodium Chloride Tab) 1 gm PO DAILY@1330 [facility] Last Admin: 05/20/16 13:20 Dose: 1 gm Tamsulosin HCl (Flomax) 0.8 mg PO DAILY [facility] Last Admin: 05/20/16 10:24 Dose: 0.8 mg Tramadol HCl (Ultram) 25 mg PO TID PRN PRN Reason: Pain, moderate (4-7) Last Admin: 05/20/16 08:41 Dose: 25 mg Vitamin A (Vitamin A & D Oint Ud Foilpak) 1 ea TOP Q8H [facility] Last Admin: 05/21/16 03:27 Dose: 1 ea - Labs Labs: 05/15/16 07:15 05/15/16 07:15 - Constitutional Appears: Non-toxic, No Acute Distress, Chronically Ill - Head Exam Head Exam: ATRAUMATIC, NORMOCEPHALIC - Eye Exam Eye Exam: EOMI - ENT Exam ENT Exam: Mucous Membranes Moist - Respiratory Exam Respiratory Exam: Decreased Breath Sounds (decreased air movement on right), Clear to Ausculation Bilateral - Cardiovascular Exam Cardiovascular Exam: +S1, +S2 - GI/Abdominal Exam GI & Abdominal Exam: Soft, Tenderness (lower abdomen), Normal Bowel Sounds - Extremities Exam Extremities Exam: Pedal Edema Additional comments: patient with right lower extremity swelling right knee immobilizer - Neurological Exam Neurological Exam: Alert, Awake - Skin Skin Exam: Dry, Warm Assessment and Plan - Assessment and Plan (Free Text) Assessment: Leg swelling 05/20: venous doppler ordered Decreased air entry on exam 05/21: will check chest xray Facial rash resembles seborrheic dermatitis, patient encouraged to moisturize ESR 32 CRP 1.51 RA- negative A&D ointment to face Diarrhea culture negative 05/18: c. diff negative, no salmonella 05/17: ova and parasites negative Fracture of tibia, proximal, right, closed; pain management and physical therapy -05/20- ordered venous doppler right leg for swelling -05/18- repeat xray with no significant change -05/11- per ortho team: patient to remain non-weight bearing to right lower extremity -05/09- right knee xrays ordered by orthopedics team- No acute fracture. Status post ORIF old patellar fracture No significant interval change compared to the prior examination Will follow up recommendations from orthopedics team -05/05:Ortho Dr. Pino and Jayce West PA following- no orthopedic intervention indicated at this time, strict NWB, PT/OT -Impaction/insufficiency fracture, lateral aspect proximal tibia, non operative , treated with strict NWB and immobilization -At least 6 weeks old by imaging -Tylenol 650 mg PO Q6 PRN mild pain -Oxycodone 5mg q8 prn severe pain -Daily physical therapy -Nonweight bearing on R leg -L knee x-ray: severe osteopenia. Sclerotic changes about the posterior proximal tibia may relate to a sclerotic healing response of a prior stress fracture here. no tibial plateau depressed fracture. The sclerosis is perceived on the prior 04/21 study; no interval pathology appreciated between 2 exams. If symptoms worsen consider MRI. 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 adding sodium chloride tablets 1g daily 05/05: -Supine BP: 114/71, HR 75 -Sitting BP: 113/71, HR 90 -Standing BP: 116/72, HR 94 Gait Instability; will continue with PT/OT -Patient uses walker- NWB at this time RLE -Chronic RLE pain (since admission) due to slippage of mechanical hardware in his leg from prior procedure -R knee immobilizer in place and patient on strict NWB status -Xray 04/03: superior migration of prosthesis. sclerosi about right acetabulum -daily physical therapy -PT 05/05: decline in transfers due to limitation from right hip and knee pain. patient still able to tolerate hallway ambulation, no episode of orthostatic hypotension post gait. recommending room/hallway ambulation w/ nursing for AM/ PM care or toileting. - PT 05/09: decline in function limited by persisting right groin/ hip and knee pain. patient still recommended for daily out of bed during am/pm care. cleared for ambulation in the room with standard walker non weight bearing right lower extremity -PT 05/10: mild decline in transfers due to pain in right knee and hip. NWB to RLE. Patient with episode of hypotension post ambulation- no syncope. -05/16: discussed with PT. Patient function declining due to immobility. Patient needs to go from bed to chair. Patient should also be ambulating to the bathroom with assist. Patient becomes hypotensive with walking. -05/17: patient assisted to chair. discussed with nursing the need for ambulation to and from bathroom with assistance as well as transfer from bed to chair Anemia; will monitor 05/15: hgb 11.0 -chronic -monitor with weekly labs Abdominal Pain; resolved 05/21: restart colace 100mg BID as patient straining to have BM -patient with multiple soft stools- will stop miralax for now -patient has been complaining of abdominal pain since admission -Colace 100mg PO BID -Dulcolax every 3 days -Inguinal hernia with unobstructed bowel loop involvement; protruded 04/18 due to straining on toilet. -05/03/16 B/L inguinal hernias reduced today without incidence -Abdominal US 04/01: Gallstones, no acute cholecystitis, no hydronephrosis. trace ascites (see full report) -Abd/pelv CT 03/11: mod b/l pleural effusions and assoc consolidations; tiny probably gallstones within the gallbladder; small to moderate hiatal hernia; R inguinal hernia which contains small loops of bowel, likely small bowel- no evidence of obstruction as oral contrast is noted within R colon. No definite free air, however evaluation for pneumoperitoneum is suboptimal. Moderate to severe constipation with questionable impaction. Prostate gland 4.1cm x 4.6cm. Urinary bladder appears unremarkable. Small amount of fluid within a right inguinal hernia. Sclerosis of right iliac wing. Extensive anasarca. Aneursmal dilatation of ascending thoracic aorta; Currently 4.5 cm. Patient needs repeat Ct imaging every [address] scan in 03/2016, should be monitored in September, BPH;chronic 05/18: Pyridium 200 mg PO TIDPC- discontinued -Flomax 0.8 mg PO daily -Finasteride 5 mg PO daily -Urology Dr. Hughes on board Onychomycosis;chronic and improving -patient had aseptic debridement of toenails x 10 -clotrimazole cream to be applied to feet b/l BID -podiatry consult- help appreciated Sacral decubitus- 05/17- sacrum examined- no sacral ulcers noted 05/16: patient needs to go from bed to chair to prevent ulcers from re-forming -04/19: exam revealed a previously healed decubitus ulcer of right buttocks. Sacral exam was clear. -Wound care following - recommending medihoney covered with bordered telfa dressing to right lower buttocks stage 2 pressure ulcer daily. -Pt is OOB to chair with help from PT daily -Order placed for turning patient Q2H History of Urinary Tract Infection 05/20: ordered repeat urine culture for urinary frequency 05/17: urine culture negative 05/16: + nitrates, 4 RBC, occasional bacteria. - urine culture 05/03- no growth - UA 05/05: +nitrates, occasional bacteria Prophylactic Measure -Labs weekly -Lovenox 40mg SC daily -Pepcid 20mg PO BID -A and D ointment TOP Q*H -Patient is homeless. Used to stay with friend, but no longer welcome there. Goal is to walk with cane so he can go to a half-way (will not qualify with a walker) -patient will need to work with PT frequently - right calf with dark skin lesion underneath knee immobilizer- wound care on board- applying medihoney DISPO -Reaching out to family in [facility] - no response from family per case management -Social Work is following up <Lionel aSnto - Last Filed: 05/21/16 17:04> Objective - Vital Signs/Intake and Output Vital Signs (last 24 hours): Temp Pulse Resp BP Pulse Ox 97.4 F L 83 20 106/64 96 05/21/16 15:46 05/21/16 15:46 05/21/16 15:46 05/21/16 15:46 05/21/16 15:46 Intake and Output: 05/21/16 05/21/16 06:59 18:59 Intake Total 1200 Output Total 500 Balance 700 - Medications Medications: Current Medications Acetaminophen (Tylenol 325mg Tab) 650 mg PO Q6 [facility] Last Admin: 05/21/16 12:50 Dose: 650 mg Clotrimazole (Lotrimin 1%) 0 gm TOP BID [facility] Last Admin: 05/21/16 11:03 Dose: 1 applic Docusate Sodium (Colace) 100 mg PO BID [facility] Last Admin: 05/21/16 11:13 Dose: 100 mg Enoxaparin Sodium (Lovenox) 40 mg SC DAILY [facility] Last Admin: 05/21/16 11:01 Dose: 40 mg Famotidine (Pepcid) 20 mg PO BID [facility] Last Admin: 05/21/16 11:00 Dose: 20 mg Finasteride (Proscar) 5 mg PO DAILY [facility] Last Admin: 05/21/16 11:01 Dose: 5 mg Sodium Chloride (Sodium Chloride 0.9%) 1,000 mls @ 100 mls/hr IV .Q10H [facility] Last Admin: 05/21/16 11:02 Dose: Not Given Magnesium Oxide (Mag-Ox) 400 mg PO BID [facility] Last Admin: 05/21/16 11:00 Dose: 400 mg Sodium Chloride (Sodium Chloride Tab) 1 gm PO DAILY@1330 [facility] Last Admin: 05/21/16 12:50 Dose: 1 gm Tamsulosin HCl (Flomax) 0.8 mg PO DAILY [facility] Last Admin: 05/21/16 11:00 Dose: 0.8 mg Tramadol HCl (Ultram) 25 mg PO TID PRN PRN Reason: Pain, moderate (4-7) Last Admin: 05/20/16 08:41 Dose: 25 mg Vitamin A (Vitamin A & D Oint Ud Foilpak) 1 ea TOP Q8H [facility] Last Admin: 05/21/16 11:01 Dose: 1 ea - Labs Labs: 05/15/16 07:15 05/15/16 07:15 Attending/Attestation - Attestation I have personally seen and examined this patient.: Yes I have fully participated in the care of the patient.: Yes I have reviewed all pertinent clinical information, including history, physical exam and plan: Yes Notes (Text): Patient admitted initially with physical deconditioning, R hip pain, found to have acetabular protrusion of R hip prosthesis; subsequently found to have R proximal tibial fracture; Patient advised to walk to bathroom with walker and assistance, continues to report frequent urination which for which he cannot wait; previously consulted urology in March 2016 regarding BPH with recs to have patient f/u as outpatient; as patient's hospital course remains indefinite, will contact urology again to see if procedure can be done inpatient; On standing tylenol for R hip and knee pain; still reporting pain but only sparingly asking for prn tramadol; Aneurysmal dilatation of ascending (4.5 cm) and descending (2.5 cm) aorta; unknown rate of expansion; should have f/u CT in September 2016 (ie. 6 months after last one); Dispo: Homeless male ideally needs LAXMI but has no insurance, continues to remain non-weight bearing on R and needing walker as well as assistance to walk ; therefore, d/c to half-way still not safe. 05/21/16 17:02
[2016-05-21] MEDS: Magnesium Oxide 400 mg Tab UD PO SCH ×2 (11:00→18:22)
[2016-05-21] MEDS: Enoxaparin 40 mg Syringe SC SCH (11:01)
[2016-05-21] MEDS: Clotrimazole 1% Cream 15 GM TUBE TOP SCH ×2 (11:03→18:26)
[2016-05-22] MEDS: Vitamins A & D Oint UD Foilpak TOP SCH ×3 (01:50→18:03)
[2016-05-22] MEDS: Sodium Chloride 0.9% 1,000 ML IV SCH ×3 (04:25→21:45)
[2016-05-22 08:13] LABS: EOS # 0.1 K/uL (0.0-0.7); LYMPH # 1.5 K/uL (1.0-4.3); MEAN CORPUSCULAR HEMOGLOBIN 34.4 pg (27.0-31.0); MEAN CORPUSCULAR HGB CONC 34.5 g/dL (33.0-37.0); MEAN PLATELET VOLUME 7.7 fL (7.2-11.7); NEUT # 2.4 K/uL (1.8-7.0); RED CELL DISTRIBUTION WIDTH 14.1 % (11.5-14.5); WHITE BLOOD COUNT 4.5 K/uL (4.8-10.8)
[2016-05-22 08:20] LABS: BASO % 0.8 % (0.0-2.0); EOS % 2.2 % (0.0-4.0); LYMPH % 33.9 % (20.0-40.0); MONO # 0.4 K/uL (0.0-0.8); MONO % 9.7 % (0.0-10.0); NEUT % 53.4 % (50.0-75.0); RBC 2.52 Mil/uL (4.40-5.90)
[2016-05-22 08:26] LABS: HEMOGLOBIN 8.7 g/dL (12.0-18.0); MEAN CELL VOLUME 99.8 fL (80.0-94.0)
[2016-05-22 08:46] LABS: ALB/GLOB RATIO 0.9 (1.0-2.1); ALT/SGPT 16 U/L (21-72); AST/SGOT 17 U/L (17-59); BLOOD UREA NITROGEN 12 mg/dL (9-20); CALCIUM 8.3 mg/dl (8.6-10.4); GFR AFRICAN-AMERICAN > 60; GFR NON-AFRICAN AMERICAN > 60
[2016-05-22] MEDS ORDERED: Potassium Chloride 20 mEq ER Tab PO ONE (09:12)
--- NOTE | 2016-05-22 09:23 | RAD ---
HISTORY: decreased air entry COMPARISON: 03/17/2016 FINDINGS: LUNGS: Biapical pleural thickening with upper lobe granulomatous changes. Persistent diffuse chronic increased interstitial lung markings. No gross focal infiltrate or effusion. PLEURA: No significant pleural effusion identified, no pneumothorax apparent. CARDIOVASCULAR: Normal. OSSEOUS STRUCTURES: Chronic bilateral rib deformities are noted. VISUALIZED UPPER ABDOMEN: Normal. OTHER FINDINGS: None. IMPRESSION: No significant interval change.
[2016-05-22] MEDS: Magnesium Oxide 400 mg Tab UD PO SCH ×2 (09:55→18:02)
[2016-05-22] MEDS: Enoxaparin 40 mg Syringe SC SCH (10:04)
[2016-05-22] MEDS: Clotrimazole 1% Cream 15 GM TUBE TOP SCH ×2 (10:05→18:05)
[2016-05-22] MEDS ORDERED: POLYETHYLENE GLYCOL 3350 17 GM/Dose PACKET PO ONE (10:20)
[2016-05-22 14:33] LABS: HEMOGLOBIN 9.5 g/dL (12.0-18.0); MEAN CELL VOLUME 99.6 fL (80.0-94.0); MEAN CORPUSCULAR HEMOGLOBIN 32.7 pg (27.0-31.0); MEAN CORPUSCULAR HGB CONC 32.8 g/dL (33.0-37.0); MEAN PLATELET VOLUME 8.3 fL (7.2-11.7); RBC 2.9 Mil/uL (4.40-5.90); RED CELL DISTRIBUTION WIDTH 14.3 % (11.5-14.5); WHITE BLOOD COUNT 5.7 K/uL (4.8-10.8)
--- NOTE | 2016-05-22 14:41 | CP.PCM.PN ---
Addendum entered and electronically signed by Wyatt Nassar DO 05/22/16 15:32 : Venous doppler 05/20 read as: No evidence of deep or superficial vein thrombosis of the right lower extremity with excellent venous flow. Normal valve function noted of the right side. Normal venous flow noted in the left common femoral vein. Original Note: <Wyatt Nassar - Last Filed: 05/22/16 14:35> Subjective - Date & Time of Evaluation Date of Evaluation: 05/22/16 Time of Evaluation: 14:35 - Subjective Subjective: PGY-1 note for medicine service Pt seen and examined at bedside. Pt complaining of continued right leg pain that extends up into his right flank and hip. He also complains of urinating often. Denies any fevers, chills, chest pain, palpitations, sob, nausea or vomiting. Objective - Vital Signs/Intake and Output Vital Signs (last 24 hours): Temp Pulse Resp BP Pulse Ox 98.3 F 70 20 125/74 96 05/22/16 08:11 05/22/16 12:28 05/22/16 08:11 05/22/16 08:11 05/22/16 08:11 Intake and Output: 05/22/16 05/22/16 06:59 18:59 Intake Total 2100 450 Output Total 1450 Balance 650 450 - Medications Medications: Current Medications Acetaminophen (Tylenol 325mg Tab) 650 mg PO Q6 [facility] Last Admin: 05/22/16 11:32 Dose: 650 mg Clotrimazole (Lotrimin 1%) 0 gm TOP BID [facility] Last Admin: 05/22/16 10:05 Dose: 1 applic Docusate Sodium (Colace) 100 mg PO BID [facility] Last Admin: 05/22/16 10:03 Dose: 100 mg Enoxaparin Sodium (Lovenox) 40 mg SC DAILY [facility] Last Admin: 05/22/16 10:04 Dose: 40 mg Famotidine (Pepcid) 20 mg PO BID [facility] Last Admin: 05/22/16 10:04 Dose: 20 mg Finasteride (Proscar) 5 mg PO DAILY [facility] Last Admin: 05/22/16 09:55 Dose: 5 mg Sodium Chloride (Sodium Chloride 0.9%) 1,000 mls @ 100 mls/hr IV .Q10H [facility] Last Admin: 05/22/16 07:00 Dose: Not Given Magnesium Oxide (Mag-Ox) 400 mg PO BID [facility] Last Admin: 05/22/16 09:55 Dose: 400 mg Sodium Chloride (Sodium Chloride Tab) 1 gm PO DAILY@1330 [facility] Last Admin: 05/21/16 12:50 Dose: 1 gm Tamsulosin HCl (Flomax) 0.8 mg PO DAILY [facility] Last Admin: 05/22/16 10:03 Dose: 0.8 mg Tramadol HCl (Ultram) 25 mg PO TID PRN PRN Reason: Pain, moderate (4-7) Last Admin: 05/20/16 08:41 Dose: 25 mg Vitamin A (Vitamin A & D Oint Ud Foilpak) 1 ea TOP Q8H [facility] Last Admin: 05/22/16 10:04 Dose: 1 ea - Labs Labs: 05/22/16 07:55 05/22/16 07:55 - Constitutional Appears: Non-toxic, No Acute Distress, Chronically Ill - Head Exam Head Exam: ATRAUMATIC, NORMOCEPHALIC - Eye Exam Eye Exam: Normal appearance Pupil Exam: PERRL - ENT Exam ENT Exam: Mucous Membranes Moist - Respiratory Exam Respiratory Exam: Clear to Ausculation Bilateral, NORMAL BREATHING PATTERN - Cardiovascular Exam Cardiovascular Exam: +S1, +S2 - GI/Abdominal Exam GI & Abdominal Exam: Soft, Tenderness (over right side), Normal Bowel Sounds - Extremities Exam Additional comments: Some increased swelling to right leg which is in a brace - Neurological Exam Neurological Exam: Alert, Awake - Skin Skin Exam: Dry, Warm Assessment and Plan - Assessment and Plan (Free Text) Assessment: Leg swelling 05/20: venous doppler ordered - pending read Decreased air entry on exam 05/21: will check chest xray - no acute findings Facial rash resembles seborrheic dermatitis, patient encouraged to moisturize ESR 32 CRP 1.51 RA- negative A&D ointment to face Diarrhea 05/22 - resolved, complaining of constipation culture negative 05/18: c. diff negative, no salmonella 05/17: ova and parasites negative Fracture of tibia, proximal, right, closed; pain management and physical therapy -05/20- ordered venous doppler right leg for swelling - pending read -05/18- repeat xray with no significant change -05/11- per ortho team: patient to remain non-weight bearing to right lower extremity -05/09- right knee xrays ordered by orthopedics team- No acute fracture. Status post ORIF old patellar fracture No significant interval change compared to the prior examination Will follow up recommendations from orthopedics team -05/05:Ortho Dr. Pino and Jayce West PA following- no orthopedic intervention indicated at this time, strict NWB, PT/OT -Impaction/insufficiency fracture, lateral aspect proximal tibia, non operative , treated with strict NWB and immobilization -At least 6 weeks old by imaging -Tylenol 650 mg PO Q6 PRN mild pain -Tramadol 25mg TID pRN -Daily physical therapy -Nonweight bearing on R leg -L knee x-ray: severe osteopenia. Sclerotic changes about the posterior proximal tibia may relate to a sclerotic healing response of a prior stress fracture here. no tibial plateau depressed fracture. The sclerosis is perceived on the prior 04/21 study; no interval pathology appreciated between 2 exams. If symptoms worsen consider MRI. 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 adding sodium chloride tablets 1g daily 05/05: -Supine BP: 114/71, HR 75 -Sitting BP: 113/71, HR 90 -Standing BP: 116/72, HR 94 Gait Instability; will continue with PT/OT -Patient uses walker- NWB at this time RLE - not safe for discharge to fpc -Chronic RLE pain (since admission) due to slippage of mechanical hardware in his leg from prior procedure -R knee immobilizer in place and patient on strict NWB status -Xray 04/03: superior migration of prosthesis. sclerosi about right acetabulum -daily physical therapy -PT 05/05: decline in transfers due to limitation from right hip and knee pain. patient still able to tolerate hallway ambulation, no episode of orthostatic hypotension post gait. recommending room/hallway ambulation w/ nursing for AM/ PM care or toileting. - PT 05/09: decline in function limited by persisting right groin/ hip and knee pain. patient still recommended for daily out of bed during am/pm care. cleared for ambulation in the room with standard walker non weight bearing right lower extremity -PT 05/10: mild decline in transfers due to pain in right knee and hip. NWB to RLE. Patient with episode of hypotension post ambulation- no syncope. -05/16: discussed with PT. Patient function declining due to immobility. Patient needs to go from bed to chair. Patient should also be ambulating to the bathroom with assist. Patient becomes hypotensive with walking. -05/17: patient assisted to chair. discussed with nursing the need for ambulation to and from bathroom with assistance as well as transfer from bed to chair Anemia; will monitor - 05/22: Hgb 8.7, repeated and was 9.5 -05/15: hgb 11.0 -chronic -monitor with weekly labs Abdominal Pain; resolved -05/22: continues to complain of straining, will give one time miralax dose -05/21: restart colace 100mg BID as patient straining to have BM -patient with multiple soft stools- will stop miralax for now -patient has been complaining of abdominal pain since admission -Colace 100mg PO BID -Dulcolax every 3 days -Inguinal hernia with unobstructed bowel loop involvement; protruded 04/18 due to straining on toilet. -05/03/16 B/L inguinal hernias reduced today without incidence -Abdominal US 04/01: Gallstones, no acute cholecystitis, no hydronephrosis. trace ascites (see full report) -Abd/pelv CT 03/11: mod b/l pleural effusions and assoc consolidations; tiny probably gallstones within the gallbladder; small to moderate hiatal hernia; R inguinal hernia which contains small loops of bowel, likely small bowel- no evidence of obstruction as oral contrast is noted within R colon. No definite free air, however evaluation for pneumoperitoneum is suboptimal. Moderate to severe constipation with questionable impaction. Prostate gland 4.1cm x 4.6cm. Urinary bladder appears unremarkable. Small amount of fluid within a right inguinal hernia. Sclerosis of right iliac wing. Extensive anasarca. Aneursmal dilatation of ascending thoracic aorta; Currently 4.5 cm. Patient needs repeat Ct imaging every [address] scan in 03/2016, should be monitored in September, BPH;chronic 05/18: Pyridium 200 mg PO TIDPC- discontinued -Flomax 0.8 mg PO daily -Finasteride 5 mg PO daily -Urology Dr. Hughes on board Onychomycosis;chronic and improving -patient had aseptic debridement of toenails x 10 -clotrimazole cream to be applied to feet b/l BID -podiatry consult- help appreciated Sacral decubitus- 05/17- sacrum examined- no sacral ulcers noted 05/16: patient needs to go from bed to chair to prevent ulcers from re-forming -04/19: exam revealed a previously healed decubitus ulcer of right buttocks. Sacral exam was clear. -Wound care following - recommending medihoney covered with bordered telfa dressing to right lower buttocks stage 2 pressure ulcer daily. -Pt is OOB to chair with help from PT daily -Order placed for turning patient Q2H History of Urinary Tract Infection 05/20: ordered repeat urine culture for urinary frequency - no growth (Final) 05/17: urine culture negative 05/16: + nitrates, 4 RBC, occasional bacteria. - urine culture 05/03- no growth - UA 05/05: +nitrates, occasional bacteria Prophylactic Measure -Labs weekly -Lovenox 40mg SC daily -Pepcid 20mg PO BID -A and D ointment TOP Q*H -Patient is homeless. Used to stay with friend, but no longer welcome there. Goal is to walk with cane so he can go to a fpc (will not qualify with a walker) -patient will need to work with PT frequently - right calf with dark skin lesion underneath knee immobilizer- wound care on board- applying medihoney DISPO -Reaching out to family in [facility] - no response from family per case management -Social Work is following up <Esme Garcia V - Last Filed: 05/22/16 19:51> Objective - Vital Signs/Intake and Output Vital Signs (last 24 hours): Temp Pulse Resp BP Pulse Ox 97.5 F L 79 20 106/67 99 05/22/16 16:00 05/22/16 16:16 05/22/16 16:00 05/22/16 16:16 05/22/16 16:16 Intake and Output: 05/22/16 05/23/16 18:59 06:59 Intake Total 450 Balance 450 - Medications Medications: Current Medications Acetaminophen (Tylenol 325mg Tab) 650 mg PO Q6 [facility] Last Admin: 05/22/16 18:03 Dose: 650 mg Clotrimazole (Lotrimin 1%) 0 gm TOP BID [facility] Last Admin: 05/22/16 18:05 Dose: 1 applic Docusate Sodium (Colace) 100 mg PO BID [facility] Last Admin: 05/22/16 18:03 Dose: 100 mg Enoxaparin Sodium (Lovenox) 40 mg SC DAILY [facility] Last Admin: 05/22/16 10:04 Dose: 40 mg Famotidine (Pepcid) 20 mg PO BID [facility] Last Admin: 05/22/16 18:03 Dose: 20 mg Finasteride (Proscar) 5 mg PO DAILY [facility] Last Admin: 05/22/16 09:55 Dose: 5 mg Sodium Chloride (Sodium Chloride 0.9%) 1,000 mls @ 100 mls/hr IV .Q10H [facility] Last Admin: 05/22/16 07:00 Dose: Not Given Magnesium Oxide (Mag-Ox) 400 mg PO BID [facility] Last Admin: 05/22/16 18:02 Dose: 400 mg Sodium Chloride (Sodium Chloride Tab) 1 gm PO DAILY@1330 [facility] Last Admin: 05/21/16 12:50 Dose: 1 gm Tamsulosin HCl (Flomax) 0.8 mg PO DAILY [facility] Last Admin: 05/22/16 10:03 Dose: 0.8 mg Tramadol HCl (Ultram) 25 mg PO TID PRN PRN Reason: Pain, moderate (4-7) Last Admin: 05/20/16 08:41 Dose: 25 mg Vitamin A (Vitamin A & D Oint Ud Foilpak) 1 ea TOP Q8H [facility] Last Admin: 05/22/16 18:03 Dose: 1 ea - Labs Labs: 05/22/16 14:19 05/22/16 07:55 Attending/Attestation - Attestation I have personally seen and examined this patient.: Yes I have fully participated in the care of the patient.: Yes I have reviewed all pertinent clinical information, including history, physical exam and plan: Yes Notes (Text): Patient seen, examined and case discussed with day-time resident. Patient seen sitting upright on the chair. Patient has mild swelling noted over left lower extremity-->US performed ruled out DVT. Patient continues to report frequency will follow-up with urology to determine if any further recommendations. Patient CBC in AM showed anemia (hgB: 8.7) and repeat Hgb: 9.5 on repeat; no blood transfusion at this time. Continue current management.
--- NOTE | 2016-05-22 14:55 | VASCLAB ---
PROCEDURE: Right Lower Extremity Venous Duplex Exam. HISTORY: swelling right leg PRIORS: None. TECHNIQUE: Right common femoral, femoral, popliteal and posterior tibial, peroneal and great saphenous veins were evaluated. Flow was assessed with color Doppler, compressibility, assessment of phasic flow and augmentation response. Report prepared by GERALD Staley, RVT FINDINGS: RIGHT: 1. Common Femoral Vein: 1.1. Compressibility - Fully compressible: Thrombus - None: Flow - Phasic: Augmentation -Normal: Reflux - None. 2. Femoral Vein: 2.1. Compressibility - Fully compressible: Thrombus - None: Flow - Phasic: Augmentation -Normal: Reflux - None. 3. Popliteal Vein: 3.1. Compressibility - Fully compressible: Thrombus - None: Flow - Phasic: Augmentation -Normal: Reflux - None. 4. Posterior Tibial Vein: 4.1. Compressibility - : Thrombus - : Flow - : Augmentation -: Reflux - . 5. Peroneal Vein: 5.1. Compressibility - : Thrombus - : Flow - : Augmentation -: Reflux - . 6. Great Saphenous Vein: 6.1. Compressibility - Fully compressible: Thrombus -None: Flow - Phasic: Augmentation - Normal: Reflux - Severe. OTHER FINDINGS: Due to swelling in the calf, the right peroneal and posterior tibial vein are not visualized. Severe valvular incompetence of the left greater saphenous vein. IMPRESSION: No evidence of deep or superficial vein thrombosis of the right lower extremity with excellent venous flow. Normal valve function noted of the right side. Normal venous flow noted in the left common femoral vein.
[2016-05-23] MEDS: Vitamins A & D Oint UD Foilpak TOP SCH ×3 (01:45→17:38)
[2016-05-23] MEDS: Sodium Chloride 0.9% 1,000 ML IV SCH ×2 (02:10→13:10)
[2016-05-23] MEDS: Magnesium Oxide 400 mg Tab UD PO SCH ×2 (11:28→17:37)
[2016-05-23] MEDS: Clotrimazole 1% Cream 15 GM TUBE TOP SCH ×2 (11:29→17:38)
[2016-05-23] MEDS: Enoxaparin 40 mg Syringe SC SCH (11:29)
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
--- NOTE | 2016-05-23 14:32 | RAD ---
PROCEDURE: Right Knee Radiographs. HISTORY: COMPARISON: Right knee radiographs performed 05/17/16 FINDINGS: Images obtained through splint. BONES: Marked osseous demineralization limits evaluation for acute fractures. Cerclage wires transfixing a remote patellar fracture is in similar configuration as prior study. Well corticated ossific density anterior to the tibial tuberosity consistent with remote avulsion injury. Tenting of the intercondylar notch. No acute displaced fracture identified. JOINTS: Tricompartmental joint space narrowing. Chondrocalcinosis. No dislocation. JOINT EFFUSION: No significant joint effusion. OTHER FINDINGS: Soft tissue swelling. IMPRESSION: No significant interval change identified.
[2016-05-24] MEDS: Vitamins A & D Oint UD Foilpak TOP SCH ×3 (02:00→17:45)
--- NOTE | 2016-05-24 07:51 | CP.PCM.PN ---
Subjective - Date & Time of Evaluation Date of Evaluation: 05/24/16 Time of Evaluation: 07:48 - Subjective Subjective: Patient complaining of mostly knee pain, above and below knee. Calf pain is better. Still has hip pain as well. Denies CP/SOB/dizziness. +constipation. Denies numbness/tingling. Objective - Vital Signs/Intake and Output Vital Signs (last 24 hours): Temp Pulse Resp BP Pulse Ox 98 F 79 20 118/70 96 05/24/16 00:00 05/24/16 00:00 05/24/16 00:00 05/24/16 00:00 05/24/16 00:00 Intake and Output: 05/24/16 05/24/16 06:59 18:59 Intake Total 940 Output Total 600 Balance 340 - Medications Medications: Current Medications Acetaminophen (Tylenol 325mg Tab) 650 mg PO Q6 [facility] Last Admin: 05/24/16 05:19 Dose: 650 mg Docusate Sodium (Colace) 100 mg PO BID [facility] Last Admin: 05/23/16 17:37 Dose: 100 mg Finasteride (Proscar) 5 mg PO DAILY [facility] Last Admin: 05/23/16 11:28 Dose: 5 mg Magnesium Oxide (Mag-Ox) 400 mg PO BID [facility] Last Admin: 05/23/16 17:37 Dose: 400 mg Sodium Chloride (Sodium Chloride Tab) 1 gm PO DAILY@1330 [facility] Last Admin: 05/23/16 13:06 Dose: 1 gm Tamsulosin HCl (Flomax) 0.8 mg PO DAILY [facility] Last Admin: 05/23/16 11:28 Dose: 0.8 mg Tramadol HCl (Ultram) 25 mg PO TID PRN PRN Reason: Pain, moderate (4-7) Last Admin: 05/20/16 08:41 Dose: 25 mg Vitamin A (Vitamin A & D Oint Ud Foilpak) 1 ea TOP Q8H [facility] Last Admin: 05/24/16 02:00 Dose: 1 ea - Labs Labs: 05/22/16 14:19 05/22/16 07:55 - Constitutional Appears: Well, No Acute Distress - Head Exam Head Exam: ATRAUMATIC, NORMAL INSPECTION - Neck Exam Neck Exam: Full ROM, Normal Inspection - Respiratory Exam Respiratory Exam: NORMAL BREATHING PATTERN - Cardiovascular Exam Additional comments: +DP pulses - Extremities Exam Additional comments: Right knee immobilizer: intact. wound dressed. +ROM ankle/toes, sensation intact +DP pulse, calves soft NT neg homans, mild swelling to RLE, dopplers no DVT but poor visualization of veins distal to knee noted - Neurological Exam Neurological Exam: Alert, Awake, Oriented x3 Neuro motor strength exam: Right Lower Extremity: 5 (ankle DF/PF, toes flex/ext) - Psychiatric Exam Psychiatric exam: Normal Affect, Normal Mood - Skin Skin Exam: Dry, Intact, Normal Color, Warm Additional comments: wound dressed Assessment and Plan (1) Acetabular protrusion Assessment & Plan: pain somewhat less no intervention planned limit WB per Dr. Pino Status: Acute (2) Fracture of tibia, proximal, right, closed Assessment & Plan: Still painful and tender to fracture site xray knee AP/lat reviewed: Continued improvement appearance of fx site, still some sclerotic area laterally. No change in position. Cont NWB at this time with knee immobilizer. PT/OT. Notes appreciated patient ambulated 40 then 20 ft on 05/22 VTE proph, encourage OOB d/w Dr. Pino, agrees Status: Chronic Radiology Interpretation - Radiology Interpretation #2 Interpretation: Patient Name / ID : [id number] / [id number] Exam Date : 05/23/2016 14:05:31 ( Approved ) Study Comment : Sex / Age : M / 71Y Creator : Amy Puga MD Dictator : Amy Puga MD [employer] : Billet Assembler : Amy Puga MD Approver2 : Report Date : 05/23/2016 14:25:48 My Comment : PROCEDURE: Right Knee Radiographs. HISTORY: COMPARISON: Right knee radiographs performed 05/17/16 FINDINGS: Images obtained through splint. BONES: Marked osseous demineralization limits evaluation for acute fractures. Cerclage wires transfixing a remote patellar fracture is in similar configuration as prior study. Well corticated ossific density anterior to the tibial tuberosity consistent with remote avulsion injury. Tenting of the intercondylar notch. No acute displaced fracture identified. JOINTS: Tricompartmental joint space narrowing. Chondrocalcinosis. No dislocation. JOINT EFFUSION: No significant joint effusion. OTHER FINDINGS: Soft tissue swelling. IMPRESSION: No significant interval change identified. Review of Systems - Review of Systems Constitutional: no symptoms reported Eyes (ROS): no symptoms reported Ears, Nose, Mouth, Throat: no symptoms reported Respiratory: No Resp. distress Cardiology: see HPI Gastrointestinal/Abdominal: see HPI Genitourinary: no symptoms reported Musculoskeletal: see HPI Skin: see HPI Neurological: see HPI All Other Systems: Reviewed and Negative
--- NOTE | 2016-05-24 09:47 | VASCLAB ---
PROCEDURE: Left Lower Extremity Venous Duplex Exam. HISTORY: left leg swelling, r/o DVT PRIORS: None. TECHNIQUE: Left common femoral, femoral, popliteal and posterior tibial, peroneal and great saphenous veins were evaluated. Flow was assessed with color Doppler, compressibility, assessment of phasic flow and augmentation response. Report prepared by GERALD Staley, RVT FINDINGS: LEFT: 1. Common Femoral Vein: 1.1. Compressibility - Fully compressible: Thrombus - None : Flow - Phasic: Augmentation -Normal: Reflux - None. 2. Femoral Vein: 2.1. Compressibility - Fully compressible: Thrombus - None: Flow - Phasic: Augmentation -Normal: Reflux - None. 3. Popliteal Vein: 3.1. Compressibility - Fully compressible: Thrombus - None: Flow - Phasic: Augmentation -Normal: Reflux - None. 4. Posterior Tibial Vein: 4.1. Compressibility - Fully compressible: Thrombus - None: Flow - Phasic: Augmentation -Normal: Reflux - None. 5. Peroneal Vein: 5.1. Compressibility - Fully compressible: Thrombus - None: Flow - Phasic: Augmentation -Normal: Reflux - None. 6. Great Saphenous Vein: 6.1. Compressibility - Fully compressible: Thrombus - None: Flow - Phasic: Augmentation - Normal: Reflux - Severe. OTHER FINDINGS: Severe valvular incompetence of the left greater saphenous vein. IMPRESSION: No evidence of deep or superficial vein thrombosis of the left lower extremity with excellent venous flow. Normal venous flow noted in the right common femoral vein.
[2016-05-24] MEDS: Magnesium Oxide 400 mg Tab UD PO SCH ×2 (10:04→18:00)
[2016-05-24] MEDS: Tramadol 25 mg PO PRN (10:05)
[2016-05-24] MEDS ORDERED: Sodium Chloride 0.9% 1,000 ML IV SCH (10:15)
--- NOTE | 2016-05-24 10:45 | CP.PCM.PN ---
<Wyatt Nassar - Last Filed: 05/24/16 10:39> Subjective - Date & Time of Evaluation Date of Evaluation: 05/24/16 Time of Evaluation: 10:39 - Subjective Subjective: PGY-1 note for medicine service Pt seen and examined at bedside. Pt in NAD. There were no acute overnight events. Was able to observe pt ambulate with walker, which he seemed to be tolerating well. He is non-weight bearing on right leg. Still complains of some pain in that leg. Denies any fevers, chills, chest pain, sob, nausea or vomiting. Objective - Vital Signs/Intake and Output Vital Signs (last 24 hours): Temp Pulse Resp BP Pulse Ox 97.7 F 69 18 125/73 98 05/24/16 07:00 05/24/16 07:00 05/24/16 07:00 05/24/16 07:00 05/24/16 07:00 Intake and Output: 05/24/16 05/24/16 06:59 18:59 Intake Total 940 Output Total 600 Balance 340 - Medications Medications: Current Medications Acetaminophen (Tylenol 325mg Tab) 650 mg PO Q6 [facility] Last Admin: 05/24/16 05:19 Dose: 650 mg Clotrimazole (Lotrimin 1%) 0 gm TOP BID [facility] Docusate Sodium (Colace) 100 mg PO BID [facility] Last Admin: 05/24/16 10:05 Dose: 100 mg Enoxaparin Sodium (Lovenox) 40 mg SC DAILY [facility] Famotidine (Pepcid) 20 mg PO BID [facility] Finasteride (Proscar) 5 mg PO DAILY [facility] Last Admin: 05/24/16 10:05 Dose: 5 mg Sodium Chloride (Sodium Chloride 0.9%) 1,000 mls @ 100 mls/hr IV .Q10H [facility] Magnesium Oxide (Mag-Ox) 400 mg PO BID [facility] Sodium Chloride (Sodium Chloride Tab) 1 gm PO DAILY@1330 [facility] Last Admin: 05/23/16 13:06 Dose: 1 gm Tamsulosin HCl (Flomax) 0.8 mg PO DAILY [facility] Last Admin: 05/24/16 10:05 Dose: 0.8 mg Tramadol HCl (Ultram) 25 mg PO TID PRN PRN Reason: Pain, moderate (4-7) Last Admin: 05/24/16 10:05 Dose: 25 mg Vitamin A (Vitamin A & D Oint Ud Foilpak) 1 ea TOP Q8H [facility] Last Admin: 05/24/16 10:05 Dose: 1 ea - Labs Labs: 05/22/16 14:19 05/22/16 07:55 - Constitutional Appears: Non-toxic, No Acute Distress, Chronically Ill - Head Exam Head Exam: ATRAUMATIC, NORMOCEPHALIC - Eye Exam Eye Exam: Normal appearance Pupil Exam: PERRL - ENT Exam ENT Exam: Mucous Membranes Moist - Respiratory Exam Respiratory Exam: Clear to Ausculation Bilateral, NORMAL BREATHING PATTERN - Cardiovascular Exam Cardiovascular Exam: +S1, +S2 - GI/Abdominal Exam GI & Abdominal Exam: Soft, Normal Bowel Sounds - Extremities Exam Additional comments: Right leg in brace - Neurological Exam Neurological Exam: Alert, Awake - Skin Skin Exam: Dry, Warm Assessment and Plan - Assessment and Plan (Free Text) Assessment: Leg swelling - 05/23: will order left leg US to r/o DVT - negative for DVT or any other abnormalities - 05/20: venous doppler ordered - read as: No evidence of deep or superficial vein thrombosis of the right lower extremity with excellent venous flow. Normal valve function noted of the right side. Normal venous flow noted in the left common femoral vein. Decreased air entry on exam - 05/21: will check chest xray - no acute findings Facial rash - resembles seborrheic dermatitis, patient encouraged to moisturize - ESR 32 - CRP 1.51 - RA- negative - A&D ointment to face Diarrhea - 05/22 - resolved - culture negative - 05/18: c. diff negative, no salmonella - 05/17: ova and parasites negative Fracture of tibia, proximal, right, closed; pain management and physical therapy - 05/24 - continue with current management. - 05/20- ordered venous doppler right leg for swelling - results as above - 05/18- repeat xray with no significant change - 05/11- per ortho team: patient to remain non-weight bearing to right lower extremity - 05/09- right knee xrays ordered by orthopedics team- No acute fracture. Status post ORIF old patellar fracture No significant interval change compared to the prior examination Will follow up recommendations from orthopedics team - 05/05:Ortho Dr. Pino and Jayce NICOLE following- no orthopedic intervention indicated at this time, strict NWB, PT/OT - Impaction/insufficiency fracture, lateral aspect proximal tibia, non operative , treated with strict NWB and immobilization - At least 6 weeks old by imaging - Tylenol 650 mg PO Q6 PRN mild pain - Tramadol 25mg TID pRN - Daily physical therapy - Nonweight bearing on R leg - L knee x-ray: severe osteopenia. Sclerotic changes about the posterior proximal tibia may relate to a sclerotic healing response of a prior stress fracture here. no tibial plateau depressed fracture. The sclerosis is perceived on the prior 04/21 study; no interval pathology appreciated between 2 exams. If symptoms worsen consider MRI. 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 adding sodium chloride tablets 1g daily - 05/05: -Supine BP: 114/71, HR 75 -Sitting BP: 113/71, HR 90 -Standing BP: 116/72, HR 94 Gait Instability; will continue with PT/OT - Patient uses walker- NWB at this time RLE - not safe for discharge to fdc - Chronic RLE pain (since admission) due to slippage of mechanical hardware in his leg from prior procedure - R knee immobilizer in place and patient on strict NWB status - Xray 04/03: superior migration of prosthesis. sclerosi about right acetabulum - daily physical therapy - PT 05/05: decline in transfers due to limitation from right hip and knee pain. patient still able to tolerate hallway ambulation, no episode of orthostatic hypotension post gait. recommending room/hallway ambulation w/ nursing for AM/ PM care or toileting. - PT 05/09: decline in function limited by persisting right groin/ hip and knee pain. patient still recommended for daily out of bed during am/pm care. cleared for ambulation in the room with standard walker non weight bearing right lower extremity - PT 05/10: mild decline in transfers due to pain in right knee and hip. NWB to RLE. Patient with episode of hypotension post ambulation- no syncope. - 05/16: discussed with PT. Patient function declining due to immobility. Patient needs to go from bed to chair. Patient should also be ambulating to the bathroom with assist. Patient becomes hypotensive with walking. - 05/17: patient assisted to chair. discussed with nursing the need for ambulation to and from bathroom with assistance as well as transfer from bed to chair Anemia; will monitor - 05/22: Hgb 8.7, repeated and was 9.5 - 05/15: hgb 11.0 - chronic - monitor with weekly labs Abdominal Pain; resolved - 05/24: less abd pain, reports BMs - 05/22: continues to complain of straining, will give one time miralax dose - 05/21: restart colace 100mg BID as patient straining to have BM - patient with multiple soft stools- will stop miralax for now - patient has been complaining of abdominal pain since admission - Colace 100mg PO BID - Dulcolax every 3 days - Inguinal hernia with unobstructed bowel loop involvement; protruded 04/18 due to straining on toilet. - 05/03/16 B/L inguinal hernias reduced today without incidence - Abdominal US 04/01: Gallstones, no acute cholecystitis, no hydronephrosis. trace ascites (see full report) - Abd/pelv CT 03/11: mod b/l pleural effusions and assoc consolidations; tiny probably gallstones within the gallbladder; small to moderate hiatal hernia; R inguinal hernia which contains small loops of bowel, likely small bowel- no evidence of obstruction as oral contrast is noted within R colon. No definite free air, however evaluation for pneumoperitoneum is suboptimal. Moderate to severe constipation with questionable impaction. Prostate gland 4.1cm x 4.6cm. Urinary bladder appears unremarkable. Small amount of fluid within a right inguinal hernia. Sclerosis of right iliac wing. Extensive anasarca. Aneursmal dilatation of ascending thoracic aorta; Currently 4.5 cm. Patient needs repeat Ct imaging every 6 months - last CT scan in 03/2016, should be monitored in September, BPH;chronic - 05/22: call placed to [facility] f/u - 05/18: Pyridium 200 mg PO TIDPC- discontinued - Flomax 0.8 mg PO daily - Finasteride 5 mg PO daily - Urology Dr. Hughes on board - will f/u with recs concerning inpatient TURP Onychomycosis;chronic and improving - patient had aseptic debridement of toenails x 10 - clotrimazole cream to be applied to feet b/l BID - podiatry consult- help appreciated Sacral decubitus- - 05/17- sacrum examined- no sacral ulcers noted - 05/16: patient needs to go from bed to chair to prevent ulcers from re-forming - 04/19: exam revealed a previously healed decubitus ulcer of right buttocks. Sacral exam was clear. - Wound care following - recommending medihoney covered with bordered telfa dressing to right lower buttocks stage 2 pressure ulcer daily. - Pt is OOB to chair with help from PT daily - Order placed for turning patient Q2H History of Urinary Tract Infection - 05/20: ordered repeat urine culture for urinary frequency - no growth (Final) - 05/17: urine culture negative - 05/16: + nitrates, 4 RBC, occasional bacteria. - urine culture 05/03- no growth - UA 05/05: +nitrates, occasional bacteria Prophylactic Measure - Labs weekly - Lovenox 40mg SC daily - Pepcid 20mg PO BID - A and D ointment TOP Q*H - Patient is homeless. Used to stay with friend, but no longer welcome there. Goal is to walk with cane so he can go to a fdc (will not qualify with a walker) - patient will need to work with PT frequently - right calf with dark skin lesion underneath knee immobilizer- wound care on board- applying medihoney DISPO - Reaching out to family in [facility] - no response from family per case management - Social Work is following up <Esme Garcia V - Last Filed: 05/25/16 11:00> Objective - Vital Signs/Intake and Output Vital Signs (last 24 hours): Temp Pulse Resp BP Pulse Ox 97.9 F 70 20 105/68 97 05/25/16 08:00 05/25/16 08:00 05/25/16 08:00 05/25/16 08:00 05/25/16 08:00 Intake and Output: 05/25/16 05/25/16 06:59 18:59 Intake Total 200 300 Output Total 600 700 Balance -400 -400 - Medications Medications: Current Medications Acetaminophen (Tylenol 325mg Tab) 650 mg PO Q6 [facility] Last Admin: 05/25/16 06:00 Dose: 650 mg Clotrimazole (Lotrimin 1%) 0 gm TOP BID [facility] Last Admin: 05/24/16 18:00 Dose: 1 applic Docusate Sodium (Colace) 100 mg PO BID [facility] Last Admin: 05/24/16 17:28 Dose: 100 mg Enoxaparin Sodium (Lovenox) 40 mg SC DAILY [facility] Famotidine (Pepcid) 20 mg PO BID [facility] Last Admin: 05/24/16 17:28 Dose: 20 mg Finasteride (Proscar) 5 mg PO DAILY [facility] Last Admin: 05/24/16 10:05 Dose: 5 mg Magnesium Oxide (Mag-Ox) 400 mg PO BID [facility] Last Admin: 05/24/16 18:00 Dose: 400 mg Sodium Chloride (Sodium Chloride Tab) 1 gm PO DAILY@1330 [facility] Last Admin: 05/24/16 13:54 Dose: 1 gm Tamsulosin HCl (Flomax) 0.8 mg PO DAILY [facility] Last Admin: 05/24/16 10:05 Dose: 0.8 mg Tramadol HCl (Ultram) 25 mg PO TID PRN PRN Reason: Pain, moderate (4-7) Last Admin: 05/24/16 10:05 Dose: 25 mg Vitamin A (Vitamin A & D Oint Ud Foilpak) 1 ea TOP Q8H [facility] Last Admin: 05/25/16 01:00 Dose: 1 ea - Labs Labs: 05/22/16 14:19 05/22/16 07:55 Attending/Attestation - Attestation I have personally seen and examined this patient.: Yes I have fully participated in the care of the patient.: Yes I have reviewed all pertinent clinical information, including history, physical exam and plan: Yes Notes (Text): This is late computer entry for 05/24/16. Patient seen, examined and case discussed with day-time resident. Patient seen ambulating with rolling walker, rather well, with assistance with clinical partner. Patient's dopplers appear negative for DVT given mild edema in both lower extremities. Urology (Dr. Tara Balderrama) Covering Dr. Hughes who is away to see if other options given patient's frequency and history of BPH.
[2016-05-24] MEDS: Clotrimazole 1% Cream 15 GM TUBE TOP SCH (18:00)
[2016-05-25] MEDS: Vitamins A & D Oint UD Foilpak TOP SCH ×3 (01:00→22:35)
--- NOTE | 2016-05-25 08:29 | CP.PCM.PN ---
<Wyatt Nassar - Last Filed: 05/25/16 13:05> Subjective - Date & Time of Evaluation Date of Evaluation: 05/25/16 Time of Evaluation: 08:24 - Subjective Subjective: PGY-1 note for medicine service Pt seen and examined at bedside. No acute events overnight. Pt still complaining of pain in his left leg. Denies any fevers, chills, chest pain, sob , nausea or vomiting. Objective - Vital Signs/Intake and Output Vital Signs (last 24 hours): Temp Pulse Resp BP Pulse Ox 98.1 F 79 20 132/76 96 05/25/16 00:02 05/25/16 00:02 05/25/16 00:02 05/25/16 00:02 05/25/16 00:02 Intake and Output: 05/25/16 05/25/16 06:59 18:59 Intake Total 200 300 Output Total 600 700 Balance -400 -400 - Medications Medications: Current Medications Acetaminophen (Tylenol 325mg Tab) 650 mg PO Q6 [facility] Last Admin: 05/25/16 06:00 Dose: 650 mg Clotrimazole (Lotrimin 1%) 0 gm TOP BID [facility], [facility] Last Admin: 05/24/16 18:00 Dose: 1 applic Docusate Sodium (Colace) 100 mg PO BID [facility], [facility] Last Admin: 05/24/16 17:28 Dose: 100 mg Enoxaparin Sodium (Lovenox) 40 mg SC DAILY [facility] Famotidine (Pepcid) 20 mg PO BID [facility] Last Admin: 05/24/16 17:28 Dose: 20 mg Finasteride (Proscar) 5 mg PO DAILY [facility] Last Admin: 05/24/16 10:05 Dose: 5 mg Magnesium Oxide (Mag-Ox) 400 mg PO BID [facility] Last Admin: 05/24/16 18:00 Dose: 400 mg Sodium Chloride (Sodium Chloride Tab) 1 gm PO DAILY@1330 [facility] Last Admin: 05/24/16 13:54 Dose: 1 gm Tamsulosin HCl (Flomax) 0.8 mg PO DAILY [facility] Last Admin: 05/24/16 10:05 Dose: 0.8 mg Tramadol HCl (Ultram) 25 mg PO TID PRN PRN Reason: Pain, moderate (4-7) Last Admin: 05/24/16 10:05 Dose: 25 mg Vitamin A (Vitamin A & D Oint Ud Foilpak) 1 ea TOP Q8H EDEN Last Admin: 05/25/16 01:00 Dose: 1 ea - Labs Labs: 05/22/16 14:19 05/22/16 07:55 - Constitutional Appears: Non-toxic, No Acute Distress - Head Exam Head Exam: ATRAUMATIC, NORMOCEPHALIC - Eye Exam Eye Exam: Normal appearance Pupil Exam: PERRL - ENT Exam ENT Exam: Mucous Membranes Moist - Respiratory Exam Respiratory Exam: Clear to Ausculation Bilateral, NORMAL BREATHING PATTERN - Cardiovascular Exam Cardiovascular Exam: +S1, +S2 - GI/Abdominal Exam GI & Abdominal Exam: Soft, Normal Bowel Sounds - Extremities Exam Extremities Exam: Normal Capillary Refill, Normal Inspection Additional comments: right leg in brace - Neurological Exam Neurological Exam: Alert, Awake - Skin Skin Exam: Dry, Warm Assessment and Plan - Assessment and Plan (Free Text) Assessment: Leg swelling - 05/23: will order left leg US to r/o DVT - negative for DVT or any other abnormalities - 05/20: venous doppler ordered - read as: No evidence of deep or superficial vein thrombosis of the right lower extremity with excellent venous flow. Normal valve function noted of the right side. Normal venous flow noted in the left common femoral vein. Decreased air entry on exam - 05/21: will check chest xray - no acute findings Facial rash - resembles seborrheic dermatitis, patient encouraged to moisturize - ESR 32 - CRP 1.51 - RA- negative - A&D ointment to face Diarrhea - 05/22 - resolved - culture negative - 05/18: c. diff negative, no salmonella - 05/17: ova and parasites negative Fracture of tibia, proximal, right, closed; pain management and physical therapy - 05/24 - continue with current management. - 05/20- ordered venous doppler right leg for swelling - results as above - 05/18- repeat xray with no significant change - 05/11- per ortho team: patient to remain non-weight bearing to right lower extremity - 05/09- right knee xrays ordered by orthopedics team- No acute fracture. Status post ORIF old patellar fracture No significant interval change compared to the prior examination Will follow up recommendations from orthopedics team - 05/05:Ortho Dr. Pino and Jayce West PA following- no orthopedic intervention indicated at this time, strict NWB, PT/OT - Impaction/insufficiency fracture, lateral aspect proximal tibia, non operative , treated with strict NWB and immobilization - At least 6 weeks old by imaging - Tylenol 650 mg PO Q6 PRN mild pain - Tramadol 25mg TID pRN - Daily physical therapy - Nonweight bearing on R leg - L knee x-ray: severe osteopenia. Sclerotic changes about the posterior proximal tibia may relate to a sclerotic healing response of a prior stress fracture here. no tibial plateau depressed fracture. The sclerosis is perceived on the prior 04/21 study; no interval pathology appreciated between 2 exams. If symptoms worsen consider MRI. 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 adding sodium chloride tablets 1g daily - 05/05: -Supine BP: 114/71, HR 75 -Sitting BP: 113/71, HR 90 -Standing BP: 116/72, HR 94 Gait Instability; will continue with PT/OT - Patient uses walker- NWB at this time RLE - not safe for discharge to half-way - Chronic RLE pain (since admission) due to slippage of mechanical hardware in his leg from prior procedure - R knee immobilizer in place and patient on strict NWB status - Xray 04/03: superior migration of prosthesis. sclerosi about right acetabulum - daily physical therapy - PT 05/05: decline in transfers due to limitation from right hip and knee pain. patient still able to tolerate hallway ambulation, no episode of orthostatic hypotension post gait. recommending room/hallway ambulation w/ nursing for AM/ PM care or toileting. - PT 05/09: decline in function limited by persisting right groin/ hip and knee pain. patient still recommended for daily out of bed during am/pm care. cleared for ambulation in the room with standard walker non weight bearing right lower extremity - PT 05/10: mild decline in transfers due to pain in right knee and hip. NWB to RLE. Patient with episode of hypotension post ambulation- no syncope. - 05/16: discussed with PT. Patient function declining due to immobility. Patient needs to go from bed to chair. Patient should also be ambulating to the bathroom with assist. Patient becomes hypotensive with walking. - 05/17: patient assisted to chair. discussed with nursing the need for ambulation to and from bathroom with assistance as well as transfer from bed to chair Anemia; will monitor - 05/25: Hgb still low, will get labs with Iron panel tomorrow - 05/22: Hgb 8.7, repeated and was 9.5 - 05/15: hgb 11.0 - chronic - monitor with weekly labs Abdominal Pain; resolved - 05/24: less abd pain, reports BMs - 05/22: continues to complain of straining, will give one time miralax dose - 05/21: restart colace 100mg BID as patient straining to have BM - patient with multiple soft stools- will stop miralax for now - patient has been complaining of abdominal pain since admission - Colace 100mg PO BID - Dulcolax every 3 days - Inguinal hernia with unobstructed bowel loop involvement; protruded 04/18 due to straining on toilet. - 05/03/16 B/L inguinal hernias reduced today without incidence - Abdominal US 04/01: Gallstones, no acute cholecystitis, no hydronephrosis. trace ascites (see full report) - Abd/pelv CT 03/11: mod b/l pleural effusions and assoc consolidations; tiny probably gallstones within the gallbladder; small to moderate hiatal hernia; R inguinal hernia which contains small loops of bowel, likely small bowel- no evidence of obstruction as oral contrast is noted within R colon. No definite free air, however evaluation for pneumoperitoneum is suboptimal. Moderate to severe constipation with questionable impaction. Prostate gland 4.1cm x 4.6cm. Urinary bladder appears unremarkable. Small amount of fluid within a right inguinal hernia. Sclerosis of right iliac wing. Extensive anasarca. Aneursmal dilatation of ascending thoracic aorta; Currently 4.5 cm. Patient needs repeat Ct imaging every 6 months - last CT scan in 03/2016, should be monitored in September, BPH;chronic - 05/22: call placed to tip [facility]ner f/u - 05/18: Pyridium 200 mg PO TIDPC- discontinued - Flomax 0.8 mg PO daily - Finasteride 5 mg PO daily - Urology Dr. Hughes on board - will f/u with recs concerning inpatient TURP Onychomycosis;chronic and improving - patient had aseptic debridement of toenails x 10 - clotrimazole cream to be applied to feet b/l BID - podiatry consult- help appreciated Sacral decubitus- - 05/17- sacrum examined- no sacral ulcers noted - 05/16: patient needs to go from bed to chair to prevent ulcers from re-forming - 04/19: exam revealed a previously healed decubitus ulcer of right buttocks. Sacral exam was clear. - Wound care following - recommending medihoney covered with bordered telfa dressing to right lower buttocks stage 2 pressure ulcer daily. - Pt is OOB to chair with help from PT daily - Order placed for turning patient Q2H History of Urinary Tract Infection - 05/20: ordered repeat urine culture for urinary frequency - no growth (Final) - 05/17: urine culture negative - 05/16: + nitrates, 4 RBC, occasional bacteria. - urine culture 05/03- no growth - UA 05/05: +nitrates, occasional bacteria Prophylactic Measure - Labs weekly - Lovenox 40mg SC daily - Pepcid 20mg PO BID - A and D ointment TOP Q*H - Patient is homeless. Used to stay with friend, but no longer welcome there. Goal is to walk with cane so he can go to a half-way (will not qualify with a walker) - patient will need to work with PT frequently - right calf with dark skin lesion underneath knee immobilizer- wound care on board- applying medihoney DISPO - Reaching out to family in [facility] - no response from family per case management - Social Work is following up <Lionel Santo - Last Filed: 06/20/16 22:03> Objective - Vital Signs/Intake and Output Vital Signs (last 24 hours): Temp Pulse Resp BP Pulse Ox 97.1 F L 74 18 117/69 98 06/20/16 15:00 06/20/16 15:00 06/20/16 15:00 06/20/16 15:00 06/20/16 15:00 Intake and Output: 06/20/16 06/21/16 18:59 06:59 Intake Total 300 Output Total 6 Balance 294 - Medications Medications: Current Medications Acetaminophen (Tylenol 325mg Tab) 650 mg PO Q6 PRN PRN Reason: Pain, Mild (1-3) Last Admin: 06/19/16 21:49 Dose: 650 mg Carbamide Peroxide (Debrox Ear Drops) 1 ml AU BID [facility] Last Admin: 06/20/16 17:17 Dose: 5 drop Clotrimazole (Lotrimin 1%) 0 gm TOP BID [facility] Last Admin: 06/20/16 17:18 Dose: 1 applic Docusate Sodium (Colace) 100 mg PO BID [facility] Last Admin: 06/20/16 17:16 Dose: 100 mg Famotidine (Pepcid) 20 mg PO BID [facility] Last Admin: 06/20/16 17:16 Dose: 20 mg Heparin Sodium (Porcine) (Heparin) 5,000 units SC Q8 [facility] Last Admin: 06/20/16 21:43 Dose: 5,000 units Magnesium Oxide (Mag-Ox) 400 mg PO BID [facility] Last Admin: 06/20/16 17:17 Dose: 400 mg Polyethylene Glycol (Miralax) 17 gm PO Q2D [facility] Last Admin: 06/19/16 11:36 Dose: Not Given Silver Sulfadiazine (Silvadene 1% 20 Gm) 0 ea TOP Q12H [facility] Last Admin: 06/20/16 21:46 Dose: Not Given Sodium Chloride (Sodium Chloride Tab) 1 gm PO DAILY@1330 [facility] Last Admin: 06/20/16 13:59 Dose: 1 gm Tamsulosin HCl (Flomax) 0.8 mg PO DAILY [facility] Last Admin: 06/20/16 11:02 Dose: 0.8 mg Tramadol HCl (Ultram) 25 mg PO TID PRN PRN Reason: Pain, moderate (4-7) Last Admin: 06/20/16 21:52 Dose: 25 mg - Labs Labs: 06/19/16 06:49 06/19/16 06:49 Attending/Attestation - Attestation I have personally seen and examined this patient.: Yes I have fully participated in the care of the patient.: Yes I have reviewed all pertinent clinical information, including history, physical exam and plan: Yes
[2016-05-25] MEDS: Magnesium Oxide 400 mg Tab UD PO SCH ×2 (11:01→17:20)
[2016-05-25] MEDS: Enoxaparin 40 mg Syringe SC SCH (11:03)
[2016-05-25] MEDS: Clotrimazole 1% Cream 15 GM TUBE TOP SCH ×2 (11:14→17:21)
--- NOTE | 2016-05-25 16:10 | PCM.URO ---
Urology Progress Note - Objective Intake & Output: Intake & Output 05/24/16 05/25/16 05/25/16 18:59 06:59 18:59 Intake Total 500 200 300 Output Total 248 877 1164 Balance -450 -400 -800 Intake: Oral 500 200 300 Output: Urine [phone] Urine, Voided [phone] Other: # Voids Urine, Voided 3 2 # Bowel Movements 1 1 Vital Signs: Vital Signs - 24 hr 05/24/16 05/24/16 05/25/16 16:33 23:30 00:02 Temperature 97.9 F 98.1 F Pulse Rate 86 79 79 Respiratory 20 20 Rate Blood Pressure 127/73 132/76 O2 Sat by Pulse 98 96 Oximetry 05/25/16 05/25/16 08:00 11:00 Temperature 97.9 F Pulse Rate 70 70 Respiratory 20 Rate Blood Pressure 105/68 O2 Sat by Pulse 97 Oximetry
[2016-05-26] MEDS: Vitamins A & D Oint UD Foilpak TOP SCH ×3 (02:00→17:29)
[2016-05-26 07:46] LABS: BASO % 0.8 % (0.0-2.0); EOS # 0.1 K/uL (0.0-0.7); EOS % 2.7 % (0.0-4.0); HEMOGLOBIN 9.4 g/dL (12.0-18.0); LYMPH # 1.9 K/uL (1.0-4.3); LYMPH % 37.6 % (20.0-40.0); MEAN CELL VOLUME 99.5 fL (80.0-94.0); MEAN CORPUSCULAR HEMOGLOBIN 32.8 pg (27.0-31.0); MEAN CORPUSCULAR HGB CONC 32.9 g/dL (33.0-37.0); MEAN PLATELET VOLUME 7.5 fL (7.2-11.7); MONO # 0.5 K/uL (0.0-0.8); MONO % 9.6 % (0.0-10.0); NEUT # 2.4 K/uL (1.8-7.0); NEUT % 49.3 % (50.0-75.0); RBC 2.88 Mil/uL (4.40-5.90); RED CELL DISTRIBUTION WIDTH 14.1 % (11.5-14.5); WHITE BLOOD COUNT 4.9 K/uL (4.8-10.8)
[2016-05-26 07:55] LABS: ALBUMIN 3.4 g/dL (3.5-5.0)
[2016-05-26 07:57] LABS: GFR AFRICAN-AMERICAN > 60; GFR NON-AFRICAN AMERICAN > 60
[2016-05-26 07:58] LABS: ALT/SGPT 13 U/L (21-72); AST/SGOT 17 U/L (17-59); BLOOD UREA NITROGEN 14 mg/dL (9-20)
[2016-05-26 07:59] LABS: CALCIUM 8.6 mg/dl (8.6-10.4)
[2016-05-26 08:05] LABS: IRON 48 ug/dL (49-181)
[2016-05-26 08:18] LABS: % IRON SATURATION 21 (20-55); TOTAL IRON BINDING CAPACITY 234 ug/dL (250-450)
[2016-05-26] MEDS ORDERED: Potassium Chloride 20 mEq ER Tab PO ONE (10:15)
[2016-05-26] MEDS: Enoxaparin 40 mg Syringe SC SCH (11:00)
[2016-05-26] MEDS: Magnesium Oxide 400 mg Tab UD PO SCH ×2 (11:01→17:27)
[2016-05-26] MEDS: Clotrimazole 1% Cream 15 GM TUBE TOP SCH ×2 (11:03→17:29)
[2016-05-26 11:33] LABS: FOLATE 18.2 ng/mL
[2016-05-26] MEDS: Ferric Sodium Gluconat Complex 62.5 mg/5 ml Vial IVPB SCH (14:36)
--- NOTE | 2016-05-26 17:00 | CP.PCM.PN ---
<Wyatt Nassar - Last Filed: 05/26/16 16:55> Subjective - Date & Time of Evaluation Date of Evaluation: 05/26/16 Time of Evaluation: 16:55 - Subjective Subjective: PGY-1 note for medicine service Pt seen and examined at bedside. Pt still reports some pain in the right leg. No new complaints. Denies f/c/cp/n/v Objective - Vital Signs/Intake and Output Vital Signs (last 24 hours): Temp Pulse Resp BP Pulse Ox 97.8 F 86 20 119/66 99 05/26/16 07:34 05/26/16 15:50 05/26/16 07:34 05/26/16 15:50 05/26/16 15:50 Intake and Output: 05/26/16 05/26/16 06:59 18:59 Intake Total 300 240 Output Total 500 Balance 300 -260 - Medications Medications: Current Medications Acetaminophen (Tylenol 325mg Tab) 650 mg PO Q6 [facility] Last Admin: 05/26/16 12:30 Dose: 650 mg Clotrimazole (Lotrimin 1%) 0 gm TOP BID [facility] Last Admin: 05/26/16 11:03 Dose: 1 applic Docusate Sodium (Colace) 100 mg PO BID [facility] Last Admin: 05/26/16 11:01 Dose: 100 mg Enoxaparin Sodium (Lovenox) 40 mg SC DAILY [facility] Last Admin: 05/26/16 11:00 Dose: 40 mg Famotidine (Pepcid) 20 mg PO BID [facility] Last Admin: 05/26/16 11:01 Dose: 20 mg Ferric Sodium Gluconate Complex (Ferrlecit) 125 mg IVPB DAILY [facility] Stop: 05/30/16 14:01 Last Admin: 05/26/16 14:36 Dose: 125 mg Finasteride (Proscar) 5 mg PO DAILY [facility] Last Admin: 05/26/16 11:01 Dose: 5 mg Magnesium Oxide (Mag-Ox) 400 mg PO BID [facility] Last Admin: 05/26/16 11:01 Dose: 400 mg Sodium Chloride (Sodium Chloride Tab) 1 gm PO DAILY@1330 [facility] Last Admin: 05/26/16 13:44 Dose: 1 gm Tamsulosin HCl (Flomax) 0.8 mg PO DAILY [facility] Last Admin: 05/26/16 11:01 Dose: 0.8 mg Tramadol HCl (Ultram) 25 mg PO TID PRN PRN Reason: Pain, moderate (4-7) Last Admin: 05/24/16 10:05 Dose: 25 mg Vitamin A (Vitamin A & D Oint Ud Foilpak) 1 ea TOP Q8H [facility] Last Admin: 05/26/16 11:03 Dose: 1 ea - Labs Labs: 05/26/16 07:40 05/26/16 07:40 - Constitutional Appears: Non-toxic, Chronically Ill - Head Exam Head Exam: ATRAUMATIC, NORMOCEPHALIC - Eye Exam Eye Exam: Normal appearance - ENT Exam ENT Exam: Mucous Membranes Moist - Respiratory Exam Respiratory Exam: Clear to Ausculation Bilateral, NORMAL BREATHING PATTERN - Cardiovascular Exam Cardiovascular Exam: +S1, +S2 - GI/Abdominal Exam GI & Abdominal Exam: Soft, Normal Bowel Sounds - Neurological Exam Neurological Exam: Alert, Awake - Skin Skin Exam: Dry, Warm Assessment and Plan - Assessment and Plan (Free Text) Assessment: Leg swelling - 05/23: will order left leg US to r/o DVT - negative for DVT or any other abnormalities - 05/20: venous doppler ordered - read as: No evidence of deep or superficial vein thrombosis of the right lower extremity with excellent venous flow. Normal valve function noted of the right side. Normal venous flow noted in the left common femoral vein. Decreased air entry on exam - 05/21: will check chest xray - no acute findings Facial rash - resembles seborrheic dermatitis, patient encouraged to moisturize - ESR 32 - CRP 1.51 - RA- negative - A&D ointment to face Diarrhea - 05/22 - resolved - culture negative - 05/18: c. diff negative, no salmonella - 05/17: ova and parasites negative Fracture of tibia, proximal, right, closed; pain management and physical therapy - 05/24 - continue with current management. - 05/20- ordered venous doppler right leg for swelling - results as above - 05/18- repeat xray with no significant change - 05/11- per ortho team: patient to remain non-weight bearing to right lower extremity - 05/09- right knee xrays ordered by orthopedics team- No acute fracture. Status post ORIF old patellar fracture No significant interval change compared to the prior examination Will follow up recommendations from orthopedics team - 05/05:Ortho Dr. Boiardo and Briarly Jenna NICOLE following- no orthopedic intervention indicated at this time, strict NWB, PT/OT - Impaction/insufficiency fracture, lateral aspect proximal tibia, non operative , treated with strict NWB and immobilization - At least 6 weeks old by imaging - Tylenol 650 mg PO Q6 PRN mild pain - Tramadol 25mg TID pRN - Daily physical therapy - Nonweight bearing on R leg - L knee x-ray: severe osteopenia. Sclerotic changes about the posterior proximal tibia may relate to a sclerotic healing response of a prior stress fracture here. no tibial plateau depressed fracture. The sclerosis is perceived on the prior 04/21 study; no interval pathology appreciated between 2 exams. If symptoms worsen consider MRI. 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 adding sodium chloride tablets 1g daily - 05/05: -Supine BP: 114/71, HR 75 -Sitting BP: 113/71, HR 90 -Standing BP: 116/72, HR 94 Gait Instability; will continue with PT/OT - Patient uses walker- NWB at this time RLE - not safe for discharge to assisted - Chronic RLE pain (since admission) due to slippage of mechanical hardware in his leg from prior procedure - R knee immobilizer in place and patient on strict NWB status - Xray 04/03: superior migration of prosthesis. sclerosi about right acetabulum - daily physical therapy - PT 05/05: decline in transfers due to limitation from right hip and knee pain. patient still able to tolerate hallway ambulation, no episode of orthostatic hypotension post gait. recommending room/hallway ambulation w/ nursing for AM/ PM care or toileting. - PT 05/09: decline in function limited by persisting right groin/ hip and knee pain. patient still recommended for daily out of bed during am/pm care. cleared for ambulation in the room with standard walker non weight bearing right lower extremity - PT 05/10: mild decline in transfers due to pain in right knee and hip. NWB to RLE. Patient with episode of hypotension post ambulation- no syncope. - 05/16: discussed with PT. Patient function declining due to immobility. Patient needs to go from bed to chair. Patient should also be ambulating to the bathroom with assist. Patient becomes hypotensive with walking. - 05/17: patient assisted to chair. discussed with nursing the need for ambulation to and from bathroom with assistance as well as transfer from bed to chair Anemia; will monitor - 05/26: may have a component of Fe deficiency, will replete - 05/25: Hgb still low, will get labs with Iron panel tomorrow - 05/22: Hgb 8.7, repeated and was 9.5 - 05/15: hgb 11.0 - chronic - monitor with weekly labs Abdominal Pain; resolved - 05/24: less abd pain, reports BMs - 05/22: continues to complain of straining, will give one time miralax dose - 05/21: restart colace 100mg BID as patient straining to have BM - patient with multiple soft stools- will stop miralax for now - patient has been complaining of abdominal pain since admission - Colace 100mg PO BID - Dulcolax every 3 days - Inguinal hernia with unobstructed bowel loop involvement; protruded 04/18 due to straining on toilet. - 05/03/16 B/L inguinal hernias reduced today without incidence - Abdominal US 04/01: Gallstones, no acute cholecystitis, no hydronephrosis. trace ascites (see full report) - Abd/pelv CT 03/11: mod b/l pleural effusions and assoc consolidations; tiny probably gallstones within the gallbladder; small to moderate hiatal hernia; R inguinal hernia which contains small loops of bowel, likely small bowel- no evidence of obstruction as oral contrast is noted within R colon. No definite free air, however evaluation for pneumoperitoneum is suboptimal. Moderate to severe constipation with questionable impaction. Prostate gland 4.1cm x 4.6cm. Urinary bladder appears unremarkable. Small amount of fluid within a right inguinal hernia. Sclerosis of right iliac wing. Extensive anasarca. Aneursmal dilatation of ascending thoracic aorta; Currently 4.5 cm. Patient needs repeat Ct imaging every 6 months - last CT scan in 03/2016, should be monitored in September, BPH;chronic - 05/26: Dr Balderrama saw pt, nothing planned for now, may reconsider. F/U - 05/22: call placed to tip Joyner f/u - 05/18: Pyridium 200 mg PO TIDPC- discontinued - Flomax 0.8 mg PO daily - Finasteride 5 mg PO daily - Urology Dr. Hughes on board - will f/u with recs concerning inpatient TURP Onychomycosis;chronic and improving - patient had aseptic debridement of toenails x 10 - clotrimazole cream to be applied to feet b/l BID - podiatry consult- help appreciated Sacral decubitus- - 05/17- sacrum examined- no sacral ulcers noted - 05/16: patient needs to go from bed to chair to prevent ulcers from re-forming - 04/19: exam revealed a previously healed decubitus ulcer of right buttocks. Sacral exam was clear. - Wound care following - recommending medihoney covered with bordered telfa dressing to right lower buttocks stage 2 pressure ulcer daily. - Pt is OOB to chair with help from PT daily - Order placed for turning patient Q2H History of Urinary Tract Infection - 05/20: ordered repeat urine culture for urinary frequency - no growth (Final) - 05/17: urine culture negative - 05/16: + nitrates, 4 RBC, occasional bacteria. - urine culture 05/03- no growth - UA 05/05: +nitrates, occasional bacteria Prophylactic Measure - Labs weekly - Lovenox 40mg SC daily - Pepcid 20mg PO BID - A and D ointment TOP Q*H - Patient is homeless. Used to stay with friend, but no longer welcome there. Goal is to walk with cane so he can go to a assisted (will not qualify with a walker) - patient will need to work with PT frequently - right calf with dark skin lesion underneath knee immobilizer- wound care on board- applying medihoney DISPO - Reaching out to family in [facility] - no response from family per case management - Social Work is following up <Lionel Santo - Last Filed: 05/27/16 10:58> Objective - Vital Signs/Intake and Output Vital Signs (last 24 hours): Temp Pulse Resp BP Pulse Ox 97.6 F 75 20 104/64 97 05/27/16 08:59 05/27/16 08:59 05/27/16 08:59 05/27/16 08:59 05/27/16 08:59 Intake and Output: 05/27/16 05/27/16 06:59 18:59 Intake Total 600 Output Total 500 Balance 100 - Medications Medications: Current Medications Acetaminophen (Tylenol 325mg Tab) 650 mg PO Q6 [facility] Last Admin: 05/27/16 06:00 Dose: 650 mg Clotrimazole (Lotrimin 1%) 0 gm TOP BID [facility] Last Admin: 05/27/16 09:51 Dose: 1 applic Docusate Sodium (Colace) 100 mg PO BID [facility] Last Admin: 05/27/16 09:51 Dose: 100 mg Enoxaparin Sodium (Lovenox) 40 mg SC DAILY [facility] Last Admin: 05/27/16 09:51 Dose: 40 mg Famotidine (Pepcid) 20 mg PO BID [facility] Last Admin: 05/27/16 09:51 Dose: 20 mg Ferric Sodium Gluconate Complex (Ferrlecit) 125 mg IVPB DAILY [facility] Stop: 05/30/16 14:01 Last Admin: 05/27/16 09:50 Dose: 125 mg Finasteride (Proscar) 5 mg PO DAILY [facility] Last Admin: 05/26/16 11:01 Dose: 5 mg Magnesium Oxide (Mag-Ox) 400 mg PO BID [facility] Last Admin: 05/26/16 17:27 Dose: 400 mg Sodium Chloride (Sodium Chloride Tab) 1 gm PO DAILY@1330 [facility] Last Admin: 05/26/16 13:44 Dose: 1 gm Tamsulosin HCl (Flomax) 0.8 mg PO DAILY [facility] Last Admin: 05/27/16 09:51 Dose: 0.8 mg Tramadol HCl (Ultram) 25 mg PO TID PRN PRN Reason: Pain, moderate (4-7) Last Admin: 05/24/16 10:05 Dose: 25 mg Vitamin A (Vitamin A & D Oint Ud Foilpak) 1 ea TOP Q8H [facility] Last Admin: 05/27/16 09:51 Dose: 1 ea - Labs Labs: 05/26/16 07:40 05/26/16 07:40 Attending/Attestation - Attestation I have personally seen and examined this patient.: Yes I have fully participated in the care of the patient.: Yes I have reviewed all pertinent clinical information, including history, physical exam and plan: Yes Notes (Text): Patient with R acetabular protrusion (involving previous prosthesis), R proximal tibial fracture; Reportedly walking well with walker (non-weight bearing on R); Urology to consider possible TURP, on max medical tx of BPH and still symptomatic; Anemia, due is some part to iron deficiency but mainly appears due to chronic disease; will give 4 doses of IV iron; Dispo: Homeless patient, still unsafe to d/c to assisted given functional limitations, indefinite hospital course.
[2016-05-27] MEDS: Vitamins A & D Oint UD Foilpak TOP SCH ×3 (00:48→17:59)
--- NOTE | 2016-05-27 08:31 | CP.PCM.PN ---
<Sadia Dior - Last Filed: 05/27/16 18:50> Subjective - Date & Time of Evaluation Date of Evaluation: 05/27/16 Time of Evaluation: 10:02 - Subjective Subjective: Internal medicine progress note for Dr. Perez Dior, PGY -1 Pt S & E at bedside. Pt complaining of abdominal pain, feels that he isn't fully evacuating his bowels when he moves them. Also complaining of Right mid thigh pain above leg brace and difficulty urinating. Denies N/V/F/C, SOB, CP. Objective - Vital Signs/Intake and Output Vital Signs (last 24 hours): Temp Pulse Resp BP Pulse Ox 97.7 F 82 20 100/60 95 05/26/16 23:46 05/26/16 23:46 05/26/16 23:46 05/26/16 23:46 05/26/16 23:46 Intake and Output: 05/27/16 05/27/16 06:59 18:59 Intake Total 600 Output Total 500 Balance 100 - Medications Medications: Current Medications Acetaminophen (Tylenol 325mg Tab) 650 mg PO Q6 [facility] Last Admin: 05/27/16 06:00 Dose: 650 mg Clotrimazole (Lotrimin 1%) 0 gm TOP BID [facility] Last Admin: 05/26/16 17:29 Dose: 1 applic Docusate Sodium (Colace) 100 mg PO BID [facility] Last Admin: 05/26/16 17:27 Dose: 100 mg Enoxaparin Sodium (Lovenox) 40 mg SC DAILY [facility] Last Admin: 05/26/16 11:00 Dose: 40 mg Famotidine (Pepcid) 20 mg PO BID [facility] Last Admin: 05/26/16 17:27 Dose: 20 mg Ferric Sodium Gluconate Complex (Ferrlecit) 125 mg IVPB DAILY [facility] Stop: 05/30/16 14:01 Last Admin: 05/26/16 14:36 Dose: 125 mg Finasteride (Proscar) 5 mg PO DAILY [facility] Last Admin: 05/26/16 11:01 Dose: 5 mg Magnesium Oxide (Mag-Ox) 400 mg PO BID [facility] Last Admin: 05/26/16 17:27 Dose: 400 mg Sodium Chloride (Sodium Chloride Tab) 1 gm PO DAILY@1330 [facility] Last Admin: 05/26/16 13:44 Dose: 1 gm Tamsulosin HCl (Flomax) 0.8 mg PO DAILY [facility] Last Admin: 05/26/16 11:01 Dose: 0.8 mg Tramadol HCl (Ultram) 25 mg PO TID PRN PRN Reason: Pain, moderate (4-7) Last Admin: 05/24/16 10:05 Dose: 25 mg Vitamin A (Vitamin A & D Oint Ud Foilpak) 1 ea TOP Q8H [facility] Last Admin: 05/27/16 00:48 Dose: 1 ea - Labs Labs: 05/26/16 07:40 05/26/16 07:40 - Constitutional Appears: Non-toxic, No Acute Distress, Chronically Ill - Head Exam Head Exam: ATRAUMATIC, NORMAL INSPECTION, NORMOCEPHALIC - Eye Exam Eye Exam: EOMI, Normal appearance, PERRL Pupil Exam: NORMAL ACCOMODATION, PERRL - ENT Exam ENT Exam: Mucous Membranes Moist, Normal Exam (poor dentition) - Neck Exam Neck Exam: Full ROM, Normal Inspection - Respiratory Exam Respiratory Exam: Clear to Ausculation Bilateral, NORMAL BREATHING PATTERN. absent: Rales, Rhonchi, Wheezes, Respiratory Distress, Stridor - Cardiovascular Exam Cardiovascular Exam: REGULAR RHYTHM, +S1, +S2 - GI/Abdominal Exam GI & Abdominal Exam: Soft, Tenderness (diffusely), Hypoactive Bowel Sounds. absent: Guarding, Rigid - Extremities Exam Extremities Exam: Normal Inspection, Tenderness (over anterior aspec to right mid thigh above leg brace- brace in place with dressing over mid RLE - C/D/I) - Neurological Exam Neurological Exam: Alert, Awake, Oriented x3 - Psychiatric Exam Psychiatric exam: Normal Affect, Normal Mood - Skin Skin Exam: Dry, Intact, Normal Color, Warm Assessment and Plan - Assessment and Plan (Free Text) Assessment: Leg swelling - 05/23: will order left leg US to r/o DVT - negative for DVT or any other abnormalities - 05/20: venous doppler ordered - read as: No evidence of deep or superficial vein thrombosis of the right lower extremity with excellent venous flow. Normal valve function noted of the right side. Normal venous flow noted in the left common femoral vein. Hypokalemia -K 3.4 -Replaced : K-Dur 40mEq x 1 Abdominal discomfort likely 2/2 Constipation Lactulose x 1 Monitor Facial rash - resembles seborrheic dermatitis, patient encouraged to moisturize - ESR 32 - CRP 1.51 - RA- negative - A&D ointment to face Fracture of tibia, proximal, right, closed; pain management and physical therapy -05/27- cont current mgmt - 05/24 - continue with current management. - 05/20- ordered venous doppler right leg for swelling - results as above - 05/18- repeat xray with no significant change - 05/11- per ortho team: patient to remain non-weight bearing to right lower extremity - 05/09- right knee xrays ordered by orthopedics team- No acute fracture. Status post ORIF old patellar fracture No significant interval change compared to the prior examination Will follow up recommendations from orthopedics team - 05/05:Ortho Dr. Pino and Jayce West PA following- no orthopedic intervention indicated at this time, strict NWB, PT/OT - Impaction/insufficiency fracture, lateral aspect proximal tibia, non operative , treated with strict NWB and immobilization - At least 6 weeks old by imaging - Tylenol 650 mg PO Q6 PRN mild pain - Tramadol 25mg TID pRN - Daily physical therapy - Nonweight bearing on R leg - L knee x-ray: severe osteopenia. Sclerotic changes about the posterior proximal tibia may relate to a sclerotic healing response of a prior stress fracture here. no tibial plateau depressed fracture. The sclerosis is perceived on the prior 04/21 study; no interval pathology appreciated between 2 exams. If symptoms worsen consider MRI. 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 adding sodium chloride tablets 1g daily - 05/05: -Supine BP: 114/71, HR 75 -Sitting BP: 113/71, HR 90 -Standing BP: 116/72, HR 94 Gait Instability; will continue with PT/OT - Patient uses walker- NWB at this time RLE - not safe for discharge to residential - Chronic RLE pain (since admission) due to slippage of mechanical hardware in his leg from prior procedure - R knee immobilizer in place and patient on strict NWB status - Xray 04/03: superior migration of prosthesis. sclerosi about right acetabulum - daily physical therapy - PT 05/05: decline in transfers due to limitation from right hip and knee pain. patient still able to tolerate hallway ambulation, no episode of orthostatic hypotension post gait. recommending room/hallway ambulation w/ nursing for AM/ PM care or toileting. - PT 05/09: decline in function limited by persisting right groin/ hip and knee pain. patient still recommended for daily out of bed during am/pm care. cleared for ambulation in the room with standard walker non weight bearing right lower extremity - PT 05/10: mild decline in transfers due to pain in right knee and hip. NWB to RLE. Patient with episode of hypotension post ambulation- no syncope. - 05/16: discussed with PT. Patient function declining due to immobility. Patient needs to go from bed to chair. Patient should also be ambulating to the bathroom with assist. Patient becomes hypotensive with walking. - 05/17: patient assisted to chair. discussed with nursing the need for ambulation to and from bathroom with assistance as well as transfer from bed to chair Anemia; will monitor - 05/26: may have a component of Fe deficiency, will replete - 05/25: Hgb still low, will get labs with Iron panel tomorrow - 05/22: Hgb 8.7, repeated and was 9.5 - 05/15: hgb 11.0 - chronic - monitor with weekly labs Abdominal Pain; resolved - 05/24: less abd pain, reports BMs - 05/22: continues to complain of straining, will give one time miralax dose - 05/21: restart colace 100mg BID as patient straining to have BM - patient with multiple soft stools- will stop miralax for now - patient has been complaining of abdominal pain since admission - Colace 100mg PO BID - Dulcolax every 3 days - Inguinal hernia with unobstructed bowel loop involvement; protruded 04/18 due to straining on toilet. - 05/03/16 B/L inguinal hernias reduced today without incidence - Abdominal US 04/01: Gallstones, no acute cholecystitis, no hydronephrosis. trace ascites (see full report) - Abd/pelv CT 03/11: mod b/l pleural effusions and assoc consolidations; tiny probably gallstones within the gallbladder; small to moderate hiatal hernia; R inguinal hernia which contains small loops of bowel, likely small bowel- no evidence of obstruction as oral contrast is noted within R colon. No definite free air, however evaluation for pneumoperitoneum is suboptimal. Moderate to severe constipation with questionable impaction. Prostate gland 4.1cm x 4.6cm. Urinary bladder appears unremarkable. Small amount of fluid within a right inguinal hernia. Sclerosis of right iliac wing. Extensive anasarca. Aneursmal dilatation of ascending thoracic aorta; Currently 4.5 cm. Patient needs repeat Ct imaging every 6 months - last CT scan in 03/2016, should be monitored in September, BPH;chronic - 05/26: Dr Balderrama saw pt, nothing planned for now, may reconsider. F/U - 05/22: call placed to Dr Hughes, tip f/u - 05/18: Pyridium 200 mg PO TIDPC- discontinued - Flomax 0.8 mg PO daily - Finasteride 5 mg PO daily - Urology Dr. Hughes on board - will f/u with recs concerning inpatient TURP Onychomycosis;chronic and improving - patient had aseptic debridement of toenails x 10 - clotrimazole cream to be applied to feet b/l BID - podiatry following Sacral decubitus- resolved - 05/17- sacrum examined- no sacral ulcers noted - 05/16: patient needs to go from bed to chair to prevent ulcers from re-forming - 04/19: exam revealed a previously healed decubitus ulcer of right buttocks. Sacral exam was clear. - Wound care following - recommending medihoney covered with bordered telfa dressing to right lower buttocks stage 2 pressure ulcer daily. - Pt is OOB to chair with help from PT daily - Order placed for turning patient Q2H History of Urinary Tract Infection - 05/20: ordered repeat urine culture for urinary frequency - no growth (Final) - 05/17: urine culture negative - 05/16: + nitrates, 4 RBC, occasional bacteria. - urine culture 05/03- no growth - UA 05/05: +nitrates, occasional bacteria Diarrhea- resolved - 05/22 - resolved - culture negative - 05/18: c. diff negative, no salmonella - 05/17: ova and parasites negative Syncopal Episode x1- resolved - 05/04/16 CTA- negative for PE (underlying atelectasis new findings compared to the prior study 03/20/2016.) Prophylactic Measure - Labs weekly - Lovenox 40mg SC daily - Pepcid 20mg PO BID - A and D ointment TOP Q*H - Patient is homeless. Used to stay with friend, but no longer welcome there. Goal is to walk with cane so he can go to a residential (will not qualify with a walker) - patient will need to work with PT frequently - right calf with dark skin lesion underneath knee immobilizer- wound care on board- applying medihoney DISPO - Reaching out to family in [facility] - no response from family per case management - Social Work is following up <Lionel Santo - Last Filed: 05/28/16 09:07> Objective - Vital Signs/Intake and Output Vital Signs (last 24 hours): Temp Pulse Resp BP Pulse Ox 98.3 F 96 H 20 103/69 96 05/28/16 08:22 05/28/16 08:22 05/28/16 08:22 05/28/16 08:22 05/28/16 08:22 Intake and Output: 05/28/16 05/28/16 06:59 18:59 Intake Total 400 Output Total 750 Balance -350 - Medications Medications: Current Medications Acetaminophen (Tylenol 325mg Tab) 650 mg PO Q6 [facility] Last Admin: 05/27/16 17:58 Dose: 650 mg Clotrimazole (Lotrimin 1%) 0 gm TOP BID [facility] Last Admin: 05/27/16 18:00 Dose: 1 applic Docusate Sodium (Colace) 100 mg PO BID [facility] Last Admin: 05/27/16 17:59 Dose: 100 mg Enoxaparin Sodium (Lovenox) 40 mg SC DAILY [facility] Last Admin: 05/27/16 09:51 Dose: 40 mg Famotidine (Pepcid) 20 mg PO BID [facility] Last Admin: 05/27/16 17:59 Dose: 20 mg Ferric Sodium Gluconate Complex (Ferrlecit) 125 mg IVPB DAILY [facility] Stop: 05/30/16 14:01 Last Admin: 05/27/16 09:50 Dose: 125 mg Finasteride (Proscar) 5 mg PO DAILY [facility] Last Admin: 05/27/16 11:13 Dose: 5 mg Magnesium Oxide (Mag-Ox) 400 mg PO BID [facility] Last Admin: 05/27/16 17:59 Dose: 400 mg Sodium Chloride (Sodium Chloride Tab) 1 gm PO DAILY@1330 [facility] Last Admin: 05/27/16 12:48 Dose: 1 gm Tamsulosin HCl (Flomax) 0.8 mg PO DAILY [facility] Last Admin: 05/27/16 09:51 Dose: 0.8 mg Tramadol HCl (Ultram) 25 mg PO TID PRN PRN Reason: Pain, moderate (4-7) Last Admin: 05/24/16 10:05 Dose: 25 mg Vitamin A (Vitamin A & D Oint Ud Foilpak) 1 ea TOP Q8H [facility] Last Admin: 05/27/16 17:59 Dose: 1 ea - Labs Labs: 05/26/16 07:40 05/26/16 07:40 Attending/Attestation - Attestation I have personally seen and examined this patient.: Yes I have fully participated in the care of the patient.: Yes I have reviewed all pertinent clinical information, including history, physical exam and plan: Yes Notes (Text): Patient with R acetabular protrusion (involving previous prosthesis), R proximal tibial fracture; Walking with walker (non-weight bearing on R); still complaining of R hip/leg pain; again instructed to ask for prn pain med (on top of standing tylenol); hasn't received prn pain med in 3 days; Urology to consider possible TURP, on max medical tx of BPH and still symptomatic; will f/u on Sunday; Anemia, due is some part to iron deficiency but mainly appears due to chronic disease; getting IV iron; Dispo: Homeless patient, still unsafe to d/c to residential given functional limitations, indefinite hospital course.
[2016-05-27] MEDS: Ferric Sodium Gluconat Complex 62.5 mg/5 ml Vial IVPB SCH (09:50)
[2016-05-27] MEDS: Enoxaparin 40 mg Syringe SC SCH (09:51)
[2016-05-27] MEDS: Clotrimazole 1% Cream 15 GM TUBE TOP SCH ×2 (09:51→18:00)
[2016-05-27] MEDS ORDERED: Potassium Chloride 20 mEq ER Tab PO ONE (10:00)
[2016-05-27] MEDS: Magnesium Oxide 400 mg Tab UD PO SCH ×2 (11:13→17:59)
[2016-05-28] MEDS: Vitamins A & D Oint UD Foilpak TOP SCH ×3 (02:00→18:03)
[2016-05-28] MEDS: Ferric Sodium Gluconat Complex 62.5 mg/5 ml Vial IVPB SCH (10:28)
[2016-05-28] MEDS: Enoxaparin 40 mg Syringe SC SCH (10:29)
[2016-05-28] MEDS: Magnesium Oxide 400 mg Tab UD PO SCH ×2 (10:29→18:03)
[2016-05-28] MEDS: Clotrimazole 1% Cream 15 GM TUBE TOP SCH ×2 (10:29→18:03)
--- NOTE | 2016-05-28 22:08 | CP.PCM.PN ---
<Marvel Gomez - Last Filed: 05/29/16 03:23> Subjective - Date & Time of Evaluation Date of Evaluation: 05/28/16 Time of Evaluation: 07:40 - Subjective Subjective: Pt S & E at bedside. 71 year old male who denies PMHx presents with complaints of bilateral leg swelling presents to the ED with complaints of generalized weakness, abdominal pain, and dysuria. Today he is complaining of abdominal pain, and right mid thigh pain above leg brace and difficulty urinating. Denies N/V/F/C, SOB, CP. Objective - Vital Signs/Intake and Output Vital Signs (last 24 hours): Temp Pulse Resp BP Pulse Ox 97.9 F 87 20 100/64 96 05/28/16 16:00 05/28/16 16:00 05/28/16 16:00 05/28/16 16:00 05/28/16 16:00 Intake and Output: 05/28/16 05/29/16 18:59 06:59 Intake Total 510 Output Total 350 Balance 160 - Medications Medications: Current Medications Acetaminophen (Tylenol 325mg Tab) 650 mg PO Q6 [facility] Last Admin: 05/28/16 18:05 Dose: 650 mg Clotrimazole (Lotrimin 1%) 0 gm TOP BID [facility] Last Admin: 05/28/16 18:03 Dose: 1 applic Docusate Sodium (Colace) 100 mg PO BID [facility] Last Admin: 05/28/16 18:03 Dose: 100 mg Enoxaparin Sodium (Lovenox) 40 mg SC DAILY [facility] Last Admin: 05/28/16 10:29 Dose: 40 mg Famotidine (Pepcid) 20 mg PO BID [facility] Last Admin: 05/28/16 18:03 Dose: 20 mg Ferric Sodium Gluconate Complex (Ferrlecit) 125 mg IVPB DAILY [facility] Stop: 05/30/16 14:01 Last Admin: 05/28/16 10:28 Dose: 125 mg Finasteride (Proscar) 5 mg PO DAILY [facility] Last Admin: 05/28/16 10:28 Dose: 5 mg Magnesium Oxide (Mag-Ox) 400 mg PO BID [facility] Last Admin: 05/28/16 18:03 Dose: 400 mg Sodium Chloride (Sodium Chloride Tab) 1 gm PO DAILY@1330 [facility] Last Admin: 05/28/16 12:38 Dose: 1 gm Tamsulosin HCl (Flomax) 0.8 mg PO DAILY [facility] Last Admin: 05/28/16 10:28 Dose: 0.8 mg Tramadol HCl (Ultram) 25 mg PO TID PRN PRN Reason: Pain, moderate (4-7) Last Admin: 05/24/16 10:05 Dose: 25 mg Vitamin A (Vitamin A & D Oint Ud Foilpak) 1 ea TOP Q8H [facility] Last Admin: 05/28/16 18:03 Dose: 1 ea - Labs Labs: 05/26/16 07:40 05/26/16 07:40 - Head Exam Head Exam: ATRAUMATIC, NORMOCEPHALIC - Eye Exam Eye Exam: EOMI, Normal appearance - ENT Exam ENT Exam: Mucous Membranes Moist, Normal Exam - Neck Exam Neck Exam: Full ROM - Respiratory Exam Respiratory Exam: Clear to Ausculation Bilateral, NORMAL BREATHING PATTERN - Cardiovascular Exam Cardiovascular Exam: REGULAR RHYTHM, +S1, +S2. absent: JVD - GI/Abdominal Exam GI & Abdominal Exam: Soft, Tenderness - Extremities Exam Extremities Exam: Tenderness Additional comments: right hip pain on palpation - Neurological Exam Neurological Exam: Alert, Awake - Psychiatric Exam Psychiatric exam: Normal Affect, Normal Mood - Skin Skin Exam: Dry, Intact Assessment and Plan - Assessment and Plan (Free Text) Plan: Leg swelling - 05/23: will order left leg US to r/o DVT - negative for DVT or any other abnormalities - 05/20: venous doppler ordered - read as: No evidence of deep or superficial vein thrombosis of the right lower extremity with excellent venous flow. Normal valve function noted of the right side. Normal venous flow noted in the left common femoral vein. Hypokalemia -K 3.4 -Replaced : K-Dur 40mEq x 1 Abdominal discomfort likely 2/2 Constipation Lactulose x 1 Monitor Facial rash - resembles seborrheic dermatitis, patient encouraged to moisturize - ESR 32 - CRP 1.51 - RA- negative - A&D ointment to face Fracture of tibia, proximal, right, closed; pain management and physical therapy -05/27- cont current mgmt - 05/24 - continue with current management. - 05/20- ordered venous doppler right leg for swelling - results as above - 05/18- repeat xray with no significant change - 05/11- per ortho team: patient to remain non-weight bearing to right lower extremity - 2/28- right knee xrays ordered by orthopedics team- No acute fracture. Status post ORIF old patellar fracture No significant interval change compared to the prior examination Will follow up recommendations from orthopedics team - 05/05:Ortho Dr. Pino and Jayce NICOLE following- no orthopedic intervention indicated at this time, strict NWB, PT/OT - Impaction/insufficiency fracture, lateral aspect proximal tibia, non operative , treated with strict NWB and immobilization - At least 6 weeks old by imaging - Tylenol 650 mg PO Q6 PRN mild pain - Tramadol 25mg TID pRN - Daily physical therapy - Nonweight bearing on R leg - L knee x-ray: severe osteopenia. Sclerotic changes about the posterior proximal tibia may relate to a sclerotic healing response of a prior stress fracture here. no tibial plateau depressed fracture. The sclerosis is perceived on the prior 04/21 study; no interval pathology appreciated between 2 exams. If symptoms worsen consider MRI. 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 adding sodium chloride tablets 1g daily - 05/05: -Supine BP: 114/71, HR 75 -Sitting BP: 113/71, HR 90 -Standing BP: 116/72, HR 94 Gait Instability; will continue with PT/OT - Patient uses walker- NWB at this time RLE - not safe for discharge to correction - Chronic RLE pain (since admission) due to slippage of mechanical hardware in his leg from prior procedure - R knee immobilizer in place and patient on strict NWB status - Xray 04/03: superior migration of prosthesis. sclerosi about right acetabulum - daily physical therapy - PT 05/05: decline in transfers due to limitation from right hip and knee pain. patient still able to tolerate hallway ambulation, no episode of orthostatic hypotension post gait. recommending room/hallway ambulation w/ nursing for AM/ PM care or toileting. - PT 05/09: decline in function limited by persisting right groin/ hip and knee pain. patient still recommended for daily out of bed during am/pm care. cleared for ambulation in the room with standard walker non weight bearing right lower extremity - PT 05/10: mild decline in transfers due to pain in right knee and hip. NWB to RLE. Patient with episode of hypotension post ambulation- no syncope. - 05/16: discussed with PT. Patient function declining due to immobility. Patient needs to go from bed to chair. Patient should also be ambulating to the bathroom with assist. Patient becomes hypotensive with walking. - 05/17: patient assisted to chair. discussed with nursing the need for ambulation to and from bathroom with assistance as well as transfer from bed to chair Anemia; will monitor - 05/26: may have a component of Fe deficiency, will replete - 05/25: Hgb still low, will get labs with Iron panel tomorrow - 05/22: Hgb 8.7, repeated and was 9.5 - 05/15: hgb 11.0 - chronic - monitor with weekly labs Abdominal Pain; resolved - 05/24: less abd pain, reports BMs - 05/22: continues to complain of straining, will give one time miralax dose - 05/21: restart colace 100mg BID as patient straining to have BM - patient with multiple soft stools- will stop miralax for now - patient has been complaining of abdominal pain since admission - Colace 100mg PO BID - Dulcolax every 3 days - Inguinal hernia with unobstructed bowel loop involvement; protruded 04/18 due to straining on toilet. - 05/03/16 B/L inguinal hernias reduced today without incidence - Abdominal US 04/01: Gallstones, no acute cholecystitis, no hydronephrosis. trace ascites (see full report) - Abd/pelv CT 03/11: mod b/l pleural effusions and assoc consolidations; tiny probably gallstones within the gallbladder; small to moderate hiatal hernia; R inguinal hernia which contains small loops of bowel, likely small bowel- no evidence of obstruction as oral contrast is noted within R colon. No definite free air, however evaluation for pneumoperitoneum is suboptimal. Moderate to severe constipation with questionable impaction. Prostate gland 4.1cm x 4.6cm. Urinary bladder appears unremarkable. Small amount of fluid within a right inguinal hernia. Sclerosis of right iliac wing. Extensive anasarca. Aneursmal dilatation of ascending thoracic aorta; Currently 4.5 cm. Patient needs repeat Ct imaging every 6 months - last CT scan in 03/2016, should be monitored in September, BPH;chronic - 05/26: Dr Balderrama saw pt, nothing planned for now, may reconsider. F/U - 05/22: call placed to Dr Hughes, tip f/u - 05/18: Pyridium 200 mg PO TIDPC- discontinued - Flomax 0.8 mg PO daily - Finasteride 5 mg PO daily - Urology Dr. Hughes on board - will f/u with recs concerning inpatient TURP Onychomycosis;chronic and improving - patient had aseptic debridement of toenails x 10 - clotrimazole cream to be applied to feet b/l BID - podiatry following Sacral decubitus- resolved - 05/17- sacrum examined- no sacral ulcers noted - 05/16: patient needs to go from bed to chair to prevent ulcers from re-forming - 04/19: exam revealed a previously healed decubitus ulcer of right buttocks. Sacral exam was clear. - Wound care following - recommending medihoney covered with bordered telfa dressing to right lower buttocks stage 2 pressure ulcer daily. - Pt is OOB to chair with help from PT daily - Order placed for turning patient Q2H History of Urinary Tract Infection - 05/20: ordered repeat urine culture for urinary frequency - no growth (Final) - 05/17: urine culture negative - 05/16: + nitrates, 4 RBC, occasional bacteria. - urine culture 05/03- no growth - UA 05/05: +nitrates, occasional bacteria Diarrhea- resolved - 05/22 - resolved - culture negative - 05/18: c. diff negative, no salmonella - 05/17: ova and parasites negative Syncopal Episode x1- resolved - 05/04/16 CTA- negative for PE (underlying atelectasis new findings compared to the prior study 03/20/2016.) Prophylactic Measure - Labs weekly - Lovenox 40mg SC daily - Pepcid 20mg PO BID - A and D ointment TOP Q*H - Patient is homeless. Used to stay with friend, but no longer welcome there. Goal is to walk with cane so he can go to a correction (will not qualify with a walker) - patient will need to work with PT frequently - right calf with dark skin lesion underneath knee immobilizer- wound care on board- applying medihoney DISPO - Reaching out to family in [facility] - no response from family per case management - Social Work is following up <Lionel Santo - Last Filed: 06/20/16 22:28> Objective - Vital Signs/Intake and Output Vital Signs (last 24 hours): Temp Pulse Resp BP Pulse Ox 97.1 F L 74 18 117/69 98 06/20/16 15:00 06/20/16 15:00 06/20/16 15:00 06/20/16 15:00 06/20/16 15:00 Intake and Output: 06/20/16 06/21/16 18:59 06:59 Intake Total 300 Output Total 6 Balance 294 - Medications Medications: Current Medications Acetaminophen (Tylenol 325mg Tab) 650 mg PO Q6 PRN PRN Reason: Pain, Mild (1-3) Last Admin: 06/19/16 21:49 Dose: 650 mg Carbamide Peroxide (Debrox Ear Drops) 1 ml AU BID [facility] Last Admin: 06/20/16 17:17 Dose: 5 drop Clotrimazole (Lotrimin 1%) 0 gm TOP BID [facility] Last Admin: 06/20/16 17:18 Dose: 1 applic Docusate Sodium (Colace) 100 mg PO BID [facility] Last Admin: 06/20/16 17:16 Dose: 100 mg Famotidine (Pepcid) 20 mg PO BID [facility] Last Admin: 06/20/16 17:16 Dose: 20 mg Heparin Sodium (Porcine) (Heparin) 5,000 units SC Q8 [facility] Last Admin: 06/20/16 21:43 Dose: 5,000 units Magnesium Oxide (Mag-Ox) 400 mg PO BID [facility] Last Admin: 06/20/16 17:17 Dose: 400 mg Polyethylene Glycol (Miralax) 17 gm PO Q2D [facility] Last Admin: 06/19/16 11:36 Dose: Not Given Silver Sulfadiazine (Silvadene 1% 20 Gm) 0 ea TOP Q12H [facility] Last Admin: 06/20/16 21:46 Dose: Not Given Sodium Chloride (Sodium Chloride Tab) 1 gm PO DAILY@1330 [facility] Last Admin: 06/20/16 13:59 Dose: 1 gm Tamsulosin HCl (Flomax) 0.8 mg PO DAILY [facility] Last Admin: 06/20/16 11:02 Dose: 0.8 mg Tramadol HCl (Ultram) 25 mg PO TID PRN PRN Reason: Pain, moderate (4-7) Last Admin: 06/20/16 21:52 Dose: 25 mg - Labs Labs: 06/19/16 06:49 06/19/16 06:49 Attending/Attestation - Attestation I have personally seen and examined this patient.: Yes I have fully participated in the care of the patient.: Yes I have reviewed all pertinent clinical information, including history, physical exam and plan: Yes
[2016-05-29] MEDS: Vitamins A & D Oint UD Foilpak TOP SCH ×3 (02:00→17:23)
[2016-05-29] MEDS: Magnesium Oxide 400 mg Tab UD PO SCH ×3 (09:24→17:23)
[2016-05-29] MEDS: Enoxaparin 40 mg Syringe SC SCH ×2 (09:24→11:06)
[2016-05-29] MEDS: Ferric Sodium Gluconat Complex 62.5 mg/5 ml Vial IVPB SCH (11:07)
[2016-05-29] MEDS: Tramadol 25 mg PO PRN (11:13)
[2016-05-29] MEDS: Clotrimazole 1% Cream 15 GM TUBE TOP SCH ×2 (11:17→17:23)
--- NOTE | 2016-05-29 12:32 | CP.PCM.PN ---
<Wyatt Nassar - Last Filed: 05/29/16 12:30> Subjective - Date & Time of Evaluation Date of Evaluation: 05/29/16 Time of Evaluation: 12:30 - Subjective Subjective: PGY-1 note for medicine service Pt seen and examined at bedside. Pt has no new complaints today. Continues to work with PT. Denies any fevers, chills, palpitations, chest pain, sob, nausea or vomiting. Objective - Vital Signs/Intake and Output Vital Signs (last 24 hours): Temp Pulse Resp BP Pulse Ox 97.9 F 84 20 104/67 98 05/29/16 08:27 05/29/16 08:27 05/29/16 08:27 05/29/16 08:27 05/29/16 08:27 Intake and Output: 05/29/16 05/29/16 06:59 18:59 Intake Total 450 Output Total 950 Balance -500 - Medications Medications: Current Medications Acetaminophen (Tylenol 325mg Tab) 650 mg PO Q6 [facility] Last Admin: 05/29/16 11:05 Dose: 650 mg Clotrimazole (Lotrimin 1%) 0 gm TOP BID [facility] Last Admin: 05/29/16 11:17 Dose: 1 applic Docusate Sodium (Colace) 100 mg PO BID [facility] Last Admin: 05/29/16 11:06 Dose: 100 mg Enoxaparin Sodium (Lovenox) 40 mg SC DAILY [facility] Last Admin: 05/29/16 11:06 Dose: 40 mg Famotidine (Pepcid) 20 mg PO BID [facility] Last Admin: 05/29/16 11:05 Dose: 20 mg Ferric Sodium Gluconate Complex (Ferrlecit) 125 mg IVPB DAILY [facility] Stop: 05/30/16 14:01 Last Admin: 05/29/16 11:07 Dose: 125 mg Finasteride (Proscar) 5 mg PO DAILY [facility] Last Admin: 05/29/16 11:14 Dose: 5 mg Magnesium Oxide (Mag-Ox) 400 mg PO BID [facility] Last Admin: 05/29/16 11:14 Dose: 400 mg Sodium Chloride (Sodium Chloride Tab) 1 gm PO DAILY@1330 [facility] Last Admin: 05/28/16 12:38 Dose: 1 gm Tamsulosin HCl (Flomax) 0.8 mg PO DAILY [facility] Last Admin: 05/29/16 11:06 Dose: 0.8 mg Tramadol HCl (Ultram) 25 mg PO TID PRN PRN Reason: Pain, moderate (4-7) Last Admin: 05/29/16 11:13 Dose: 25 mg Vitamin A (Vitamin A & D Oint Ud Foilpak) 1 ea TOP Q8H [facility] Last Admin: 05/29/16 11:14 Dose: Not Given - Labs Labs: 05/26/16 07:40 05/26/16 07:40 - Constitutional Appears: Non-toxic, Chronically Ill - Head Exam Head Exam: ATRAUMATIC, NORMOCEPHALIC - ENT Exam ENT Exam: Mucous Membranes Moist - Respiratory Exam Respiratory Exam: Clear to Ausculation Bilateral, NORMAL BREATHING PATTERN - Cardiovascular Exam Cardiovascular Exam: +S1, +S2 - GI/Abdominal Exam GI & Abdominal Exam: Soft, Normal Bowel Sounds - Extremities Exam Additional comments: Brace in place over right leg - Neurological Exam Neurological Exam: Alert, Awake - Skin Skin Exam: Dry, Warm Assessment and Plan - Assessment and Plan (Free Text) Assessment: Leg swelling - 05/23: will order left leg US to r/o DVT - negative for DVT or any other abnormalities - 05/20: venous doppler ordered - read as: No evidence of deep or superficial vein thrombosis of the right lower extremity with excellent venous flow. Normal valve function noted of the right side. Normal venous flow noted in the left common femoral vein. Hypokalemia - Monitor - Replete as needed Abdominal discomfort likely 2/2 Constipation - Lactulose, reports BMs - Monitor Facial rash - resembles seborrheic dermatitis, patient encouraged to moisturize - ESR 32 - CRP 1.51 - RA- negative - A&D ointment to face Fracture of tibia, proximal, right, closed; pain management and physical therapy - 05/29 - Cont to work with PT. Able to ambulate with walker, NWB on right LE. -05/27- cont current mgmt - 05/24 - continue with current management. - 05/20- ordered venous doppler right leg for swelling - results as above - 05/18- repeat xray with no significant change - 05/11- per ortho team: patient to remain non-weight bearing to right lower extremity - 05/09- right knee xrays ordered by orthopedics team- No acute fracture. Status post ORIF old patellar fracture No significant interval change compared to the prior examination Will follow up recommendations from orthopedics team - 05/05:Ortho Dr. Pino and Jayce West PA following- no orthopedic intervention indicated at this time, strict NWB, PT/OT - Impaction/insufficiency fracture, lateral aspect proximal tibia, non operative , treated with strict NWB and immobilization - At least 6 weeks old by imaging - Tylenol 650 mg PO Q6 PRN mild pain - Tramadol 25mg TID pRN - Daily physical therapy - Nonweight bearing on R leg - L knee x-ray: severe osteopenia. Sclerotic changes about the posterior proximal tibia may relate to a sclerotic healing response of a prior stress fracture here. no tibial plateau depressed fracture. The sclerosis is perceived on the prior 04/21 study; no interval pathology appreciated between 2 exams. If symptoms worsen consider MRI. 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 adding sodium chloride tablets 1g daily - 05/05: -Supine BP: 114/71, HR 75 -Sitting BP: 113/71, HR 90 -Standing BP: 116/72, HR 94 Gait Instability; will continue with PT/OT - Patient uses walker- NWB at this time RLE - not safe for discharge to assisted - Chronic RLE pain (since admission) due to slippage of mechanical hardware in his leg from prior procedure - R knee immobilizer in place and patient on strict NWB status - Xray 04/03: superior migration of prosthesis. sclerosi about right acetabulum - daily physical therapy - PT 05/05: decline in transfers due to limitation from right hip and knee pain. patient still able to tolerate hallway ambulation, no episode of orthostatic hypotension post gait. recommending room/hallway ambulation w/ nursing for AM/ PM care or toileting. - PT 05/09: decline in function limited by persisting right groin/ hip and knee pain. patient still recommended for daily out of bed during am/pm care. cleared for ambulation in the room with standard walker non weight bearing right lower extremity - PT 05/10: mild decline in transfers due to pain in right knee and hip. NWB to RLE. Patient with episode of hypotension post ambulation- no syncope. - 05/16: discussed with PT. Patient function declining due to immobility. Patient needs to go from bed to chair. Patient should also be ambulating to the bathroom with assist. Patient becomes hypotensive with walking. - 05/17: patient assisted to chair. discussed with nursing the need for ambulation to and from bathroom with assistance as well as transfer from bed to chair Anemia; will monitor - Labs tomorrow, f/u - 05/26: may have a component of Fe deficiency, will replete - 05/25: Hgb still low, will get labs with Iron panel tomorrow - 05/22: Hgb 8.7, repeated and was 9.5 - 05/15: hgb 11.0 - chronic - monitor with weekly labs Abdominal Pain; resolved - 05/24: less abd pain, reports BMs - 05/22: continues to complain of straining, will give one time miralax dose - 05/21: restart colace 100mg BID as patient straining to have BM - patient with multiple soft stools- will stop miralax for now - patient has been complaining of abdominal pain since admission - Colace 100mg PO BID - Dulcolax every 3 days - Inguinal hernia with unobstructed bowel loop involvement; protruded 04/18 due to straining on toilet. - 05/03/16 B/L inguinal hernias reduced today without incidence - Abdominal US 04/01: Gallstones, no acute cholecystitis, no hydronephrosis. trace ascites (see full report) - Abd/pelv CT 03/11: mod b/l pleural effusions and assoc consolidations; tiny probably gallstones within the gallbladder; small to moderate hiatal hernia; R inguinal hernia which contains small loops of bowel, likely small bowel- no evidence of obstruction as oral contrast is noted within R colon. No definite free air, however evaluation for pneumoperitoneum is suboptimal. Moderate to severe constipation with questionable impaction. Prostate gland 4.1cm x 4.6cm. Urinary bladder appears unremarkable. Small amount of fluid within a right inguinal hernia. Sclerosis of right iliac wing. Extensive anasarca. Aneursmal dilatation of ascending thoracic aorta; Currently 4.5 cm. Patient needs repeat Ct imaging every 6 months - last CT scan in 03/2016, should be monitored in September, BPH;chronic - 05/26: Dr Balderrama saw pt, nothing planned for now, may reconsider. F/U - 05/22: call placed to Dr Hughes, tip f/u - 05/18: Pyridium 200 mg PO TIDPC- discontinued - Flomax 0.8 mg PO daily - Finasteride 5 mg PO daily - Urology Dr. Hughes on board - will f/u with recs concerning inpatient TURP Onychomycosis;chronic and improving - patient had aseptic debridement of toenails x 10 - clotrimazole cream to be applied to feet b/l BID - podiatry following Sacral decubitus- resolved - 05/17- sacrum examined- no sacral ulcers noted - 05/16: patient needs to go from bed to chair to prevent ulcers from re-forming - 04/19: exam revealed a previously healed decubitus ulcer of right buttocks. Sacral exam was clear. - Wound care following - recommending medihoney covered with bordered telfa dressing to right lower buttocks stage 2 pressure ulcer daily. - Pt is OOB to chair with help from PT daily - Order placed for turning patient Q2H History of Urinary Tract Infection - 05/20: ordered repeat urine culture for urinary frequency - no growth (Final) - 05/17: urine culture negative - 05/16: + nitrates, 4 RBC, occasional bacteria. - urine culture 05/03- no growth - UA 05/05: +nitrates, occasional bacteria Diarrhea- resolved - 05/22 - resolved - culture negative - 05/18: c. diff negative, no salmonella - 05/17: ova and parasites negative Syncopal Episode x1- resolved - 05/04/16 CTA- negative for PE (underlying atelectasis new findings compared to the prior study 03/20/2016.) Prophylactic Measure - Labs weekly - Lovenox 40mg SC daily - Pepcid 20mg PO BID - A and D ointment TOP Q*H - Patient is homeless. Used to stay with friend, but no longer welcome there. Goal is to walk with cane so he can go to a assisted (will not qualify with a walker) - patient will need to work with PT frequently - right calf with dark skin lesion underneath knee immobilizer- wound care on board- applying medihoney DISPO - Reaching out to family in [facility] - no response from family per case management - Social Work is following up <Lionel Santo - Last Filed: 05/29/16 19:13> Objective - Vital Signs/Intake and Output Vital Signs (last 24 hours): Temp Pulse Resp BP Pulse Ox 97.5 F L 71 20 107/67 97 05/29/16 15:00 05/29/16 15:00 05/29/16 15:00 05/29/16 15:00 05/29/16 15:00 Intake and Output: 05/29/16 05/30/16 18:59 06:59 Intake Total 300 Output Total 330 Balance -30 - Medications Medications: Current Medications Acetaminophen (Tylenol 325mg Tab) 650 mg PO Q6 [facility] Last Admin: 05/29/16 11:05 Dose: 650 mg Clotrimazole (Lotrimin 1%) 0 gm TOP BID [facility] Last Admin: 05/29/16 17:23 Dose: 1 applic Docusate Sodium (Colace) 100 mg PO BID [facility] Last Admin: 05/29/16 17:22 Dose: 100 mg Enoxaparin Sodium (Lovenox) 40 mg SC DAILY [facility] Last Admin: 05/29/16 11:06 Dose: 40 mg Famotidine (Pepcid) 20 mg PO BID [facility] Last Admin: 05/29/16 17:22 Dose: 20 mg Ferric Sodium Gluconate Complex (Ferrlecit) 125 mg IVPB DAILY [facility] Stop: 05/30/16 14:01 Last Admin: 05/29/16 11:07 Dose: 125 mg Finasteride (Proscar) 5 mg PO DAILY [facility] Last Admin: 05/29/16 11:14 Dose: 5 mg Magnesium Oxide (Mag-Ox) 400 mg PO BID [facility] Last Admin: 05/29/16 17:23 Dose: 400 mg Sodium Chloride (Sodium Chloride Tab) 1 gm PO DAILY@1330 [facility] Last Admin: 05/29/16 14:56 Dose: Not Given Tamsulosin HCl (Flomax) 0.8 mg PO DAILY [facility] Last Admin: 05/29/16 11:06 Dose: 0.8 mg Tramadol HCl (Ultram) 25 mg PO TID PRN PRN Reason: Pain, moderate (4-7) Last Admin: 05/29/16 11:13 Dose: 25 mg Vitamin A (Vitamin A & D Oint Ud Foilpak) 1 ea TOP Q8H [facility] Last Admin: 05/29/16 17:23 Dose: 1 ea - Labs Labs: 05/26/16 07:40 05/26/16 07:40 Attending/Attestation - Attestation I have personally seen and examined this patient.: Yes I have fully participated in the care of the patient.: Yes I have reviewed all pertinent clinical information, including history, physical exam and plan: Yes Notes (Text): Patient with prior R hip arthroplasty, admitted with acetabular protrusion of prosthesis, R proximal tibial fracture, physical deconditioning; Patient received prn dose of tramadol for his pain after several days of instructing him to ask for pain meds if needed; Awaiting urology f/u for possible TURP (initially was told to pursue it as outpatient but given indefinite hospital course, urology was re-approached); Still for non-weightbearing on R; advised to sit in chair during day; Dispo: Homeless patient with no insurance for LAXMI, unsafe for d/c to assisted. 05/29/16 19:08
[2016-05-30] MEDS: Vitamins A & D Oint UD Foilpak TOP SCH ×3 (02:00→21:25)
[2016-05-30 07:15] LABS: BASO % 0.5 % (0.0-2.0); EOS # 0.1 K/uL (0.0-0.7); EOS % 2.3 % (0.0-4.0); HEMOGLOBIN 10.5 g/dL (12.0-18.0); LYMPH # 1.6 K/uL (1.0-4.3); LYMPH % 29.1 % (20.0-40.0); MEAN CELL VOLUME 100.4 fL (80.0-94.0); MEAN CORPUSCULAR HEMOGLOBIN 32.8 pg (27.0-31.0); MEAN CORPUSCULAR HGB CONC 32.7 g/dL (33.0-37.0); MEAN PLATELET VOLUME 7.4 fL (7.2-11.7); MONO # 0.6 K/uL (0.0-0.8); MONO % 10.6 % (0.0-10.0); NEUT # 3.2 K/uL (1.8-7.0); NEUT % 57.5 % (50.0-75.0); NRBC % 0.1 % (0.0-2.0); RBC 3.21 Mil/uL (4.40-5.90); RED CELL DISTRIBUTION WIDTH 13.8 % (11.5-14.5); WHITE BLOOD COUNT 5.5 K/uL (4.8-10.8)
[2016-05-30 07:32] LABS: ALBUMIN 3.6 g/dL (3.5-5.0)
[2016-05-30 07:35] LABS: GFR AFRICAN-AMERICAN > 60; GFR NON-AFRICAN AMERICAN > 60
[2016-05-30 07:36] LABS: ALT/SGPT 13 U/L (21-72); AST/SGOT 15 U/L (17-59); BLOOD UREA NITROGEN 13 mg/dL (9-20)
--- NOTE | 2016-05-30 09:22 | PCM.URO ---
Urology Progress Note - Objective Lab Results Last 24 Hours: Laboratory Results - last 24 hr 05/30/16 07:02 WBC 5.5 RBC 3.21 L Hgb 10.5 L Hct 32.2 L MCV 100.4 H MCH 32.8 H MCHC 32.7 L RDW 13.8 Plt Count 256 MPV 7.4 Neut % (Auto) 57.5 Lymph % (Auto) 29.1 [place] % (Auto) 10.6 H Eos % (Auto) 2.3 Baso % (Auto) 0.5 Neut # 3.2 Lymph # 1.6 [place] # 0.6 Eos # 0.1 Baso # 0.0 Sodium 138 Potassium 4.1 Chloride 97 L Carbon Dioxide 28 Anion Gap 17 BUN 13 Creatinine 0.7 L Est GFR ( Amer) > 60 Est GFR (Non-Af Amer) > 60 Random Glucose 83 Calcium 9.0 Total Bilirubin 0.3 AST 15 L ALT 13 L Alkaline Phosphatase 65 Total Protein 7.4 Albumin 3.6 Globulin 3.8 Albumin/Globulin Ratio 1.0 Intake & Output: Intake & Output 05/29/16 05/30/16 05/30/16 18:59 06:59 18:59 Intake Total 300 500 Output Total 330 900 Balance -30 -400 Intake: Oral 300 500 Output: Urine 330 900 Urine, Voided 330 900 Other: # Voids Urine, Voided 2 # Bowel Movements 1 Vital Signs: Vital Signs - 24 hr 05/29/16 05/29/16 05/29/16 12:37 15:00 19:13 Temperature 97.5 F L Pulse Rate 84 71 71 Respiratory 20 Rate Blood Pressure 107/67 O2 Sat by Pulse 97 Oximetry 05/30/16 05/30/16 05/30/16 00:19 02:00 07:16 Temperature 98.1 F 97.9 F Pulse Rate 78 78 80 Respiratory 20 20 Rate Blood Pressure 98/65 L 105/72 O2 Sat by Pulse 96 97 Oximetry
[2016-05-30] MEDS: Magnesium Oxide 400 mg Tab UD PO SCH ×2 (09:27→17:10)
[2016-05-30] MEDS: Enoxaparin 40 mg Syringe SC SCH (09:28)
[2016-05-30] MEDS: Ferric Sodium Gluconat Complex 62.5 mg/5 ml Vial IVPB SCH (09:28)
--- NOTE | 2016-05-30 14:18 | RAD ---
PROCEDURE: Right Knee Radiographs. HISTORY: remove knee immobilizer, f/u stress fx COMPARISON: 05/23/2016 FINDINGS: BONES: There is diffuse bone demineralization. There is no acute fracture or bone destruction. Status post open reduction and internal fixation of a nondisplaced patellar fracture. There is a well corticated bony fragment anterior to tibial plateau which may represent sequel of remote injury. JOINTS: There is mild tricompartmental degenerative osteoarthrosis with reduced joint spaces and tibial spiking. JOINT EFFUSION: There is a small suprapatellar joint effusion. OTHER FINDINGS: None. IMPRESSION: Status post ORIF remote patellar fracture. No acute displaced fracture or dislocation. Mild tricompartmental degenerative osteoarthrosis, worse in the medial compartment.
--- NOTE | 2016-05-30 14:19 | CP.PCM.PN ---
<Wyatt Nassar - Last Filed: 05/30/16 14:16> Subjective - Date & Time of Evaluation Date of Evaluation: 05/30/16 Time of Evaluation: 14:16 - Subjective Subjective: PGY-1 note for medicine service Pt seen and examined at bedside. Pt has no new complaints. Still states that he has pain in his right knee and that he has frequent urination. Denies any fevers , chills, chest pain, sob, nausea or vomiting. Objective - Vital Signs/Intake and Output Vital Signs (last 24 hours): Temp Pulse Resp BP Pulse Ox 97.9 F 80 20 105/72 97 05/30/16 07:16 05/30/16 11:09 05/30/16 07:16 05/30/16 07:16 05/30/16 07:16 Intake and Output: 05/30/16 05/30/16 06:59 18:59 Intake Total 500 Output Total 900 Balance -400 - Medications Medications: Current Medications Acetaminophen (Tylenol 325mg Tab) 650 mg PO Q6 [facility] Last Admin: 05/30/16 06:11 Dose: 650 mg Clotrimazole (Lotrimin 1%) 0 gm TOP BID [facility] Last Admin: 05/29/16 17:23 Dose: 1 applic Docusate Sodium (Colace) 100 mg PO BID [facility] Last Admin: 05/30/16 09:27 Dose: 100 mg Enoxaparin Sodium (Lovenox) 40 mg SC DAILY [facility] Last Admin: 05/30/16 09:28 Dose: 40 mg Famotidine (Pepcid) 20 mg PO BID [facility] Last Admin: 05/30/16 09:29 Dose: 20 mg Finasteride (Proscar) 5 mg PO DAILY [facility] Last Admin: 05/30/16 09:28 Dose: 5 mg Magnesium Oxide (Mag-Ox) 400 mg PO BID [facility] Last Admin: 05/30/16 09:27 Dose: 400 mg Sodium Chloride (Sodium Chloride Tab) 1 gm PO DAILY@1330 [facility] Last Admin: 05/29/16 14:56 Dose: Not Given Tamsulosin HCl (Flomax) 0.8 mg PO DAILY [facility] Last Admin: 05/30/16 09:27 Dose: 0.8 mg Tramadol HCl (Ultram) 25 mg PO TID PRN PRN Reason: Pain, moderate (4-7) Last Admin: 05/29/16 11:13 Dose: 25 mg Vitamin A (Vitamin A & D Oint Ud Foilpak) 1 ea TOP Q8H [facility] Last Admin: 05/30/16 02:00 Dose: Not Given - Labs Labs: 05/30/16 07:02 05/30/16 07:02 - Constitutional Appears: No Acute Distress, Chronically Ill - ENT Exam ENT Exam: Mucous Membranes Moist - Respiratory Exam Respiratory Exam: Clear to Ausculation Bilateral, NORMAL BREATHING PATTERN - Cardiovascular Exam Cardiovascular Exam: +S1, +S2 - GI/Abdominal Exam GI & Abdominal Exam: Soft, Normal Bowel Sounds - Extremities Exam Additional comments: right leg in brace - Neurological Exam Neurological Exam: Alert, Awake - Skin Skin Exam: Dry, Warm Assessment and Plan - Assessment and Plan (Free Text) Assessment: Leg swelling - 05/23: will order left leg US to r/o DVT - negative for DVT or any other abnormalities - 05/20: venous doppler ordered - read as: No evidence of deep or superficial vein thrombosis of the right lower extremity with excellent venous flow. Normal valve function noted of the right side. Normal venous flow noted in the left common femoral vein. Hypokalemia - Monitor - Replete as needed Abdominal discomfort likely 2/2 Constipation - Lactulose, reports BMs - Monitor Facial rash - resembles seborrheic dermatitis, patient encouraged to moisturize - ESR 32 - CRP 1.51 - RA- negative - A&D ointment to face Fracture of tibia, proximal, right, closed; pain management and physical therapy - 05/29 - Cont to work with PT. Able to ambulate with walker, NWB on right LE. -05/27- cont current mgmt - 05/24 - continue with current management. - 05/20- ordered venous doppler right leg for swelling - results as above - 05/18- repeat xray with no significant change - 05/11- per ortho team: patient to remain non-weight bearing to right lower extremity - 05/09- right knee xrays ordered by orthopedics team- No acute fracture. Status post ORIF old patellar fracture No significant interval change compared to the prior examination Will follow up recommendations from orthopedics team - 05/05:Ortho Dr. Pino and Jayce West PA following- no orthopedic intervention indicated at this time, strict NWB, PT/OT - Impaction/insufficiency fracture, lateral aspect proximal tibia, non operative , treated with strict NWB and immobilization - At least 6 weeks old by imaging - Tylenol 650 mg PO Q6 PRN mild pain - Tramadol 25mg TID pRN - Daily physical therapy - Nonweight bearing on R leg - L knee x-ray: severe osteopenia. Sclerotic changes about the posterior proximal tibia may relate to a sclerotic healing response of a prior stress fracture here. no tibial plateau depressed fracture. The sclerosis is perceived on the prior 04/21 study; no interval pathology appreciated between 2 exams. If symptoms worsen consider MRI. 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 adding sodium chloride tablets 1g daily - 05/05: -Supine BP: 114/71, HR 75 -Sitting BP: 113/71, HR 90 -Standing BP: 116/72, HR 94 Gait Instability; will continue with PT/OT - Patient uses walker- NWB at this time RLE - not safe for discharge to senior care - Chronic RLE pain (since admission) due to slippage of mechanical hardware in his leg from prior procedure - R knee immobilizer in place and patient on strict NWB status - Xray 04/03: superior migration of prosthesis. sclerosi about right acetabulum - daily physical therapy - PT 05/05: decline in transfers due to limitation from right hip and knee pain. patient still able to tolerate hallway ambulation, no episode of orthostatic hypotension post gait. recommending room/hallway ambulation w/ nursing for AM/ PM care or toileting. - PT 05/09: decline in function limited by persisting right groin/ hip and knee pain. patient still recommended for daily out of bed during am/pm care. cleared for ambulation in the room with standard walker non weight bearing right lower extremity - PT 05/10: mild decline in transfers due to pain in right knee and hip. NWB to RLE. Patient with episode of hypotension post ambulation- no syncope. - 05/16: discussed with PT. Patient function declining due to immobility. Patient needs to go from bed to chair. Patient should also be ambulating to the bathroom with assist. Patient becomes hypotensive with walking. - 05/17: patient assisted to chair. discussed with nursing the need for ambulation to and from bathroom with assistance as well as transfer from bed to chair Anemia; will monitor - 05/30: Hgb trending up - 05/26: may have a component of Fe deficiency, will replete - 05/25: Hgb still low, will get labs with Iron panel tomorrow - 05/22: Hgb 8.7, repeated and was 9.5 - 05/15: hgb 11.0 - chronic - monitor with weekly labs Abdominal Pain; resolved - 05/24: less abd pain, reports BMs - 05/22: continues to complain of straining, will give one time miralax dose - 05/21: restart colace 100mg BID as patient straining to have BM - patient with multiple soft stools- will stop miralax for now - patient has been complaining of abdominal pain since admission - Colace 100mg PO BID - Dulcolax every 3 days - Inguinal hernia with unobstructed bowel loop involvement; protruded 04/18 due to straining on toilet. - 05/03/16 B/L inguinal hernias reduced today without incidence - Abdominal US 04/01: Gallstones, no acute cholecystitis, no hydronephrosis. trace ascites (see full report) - Abd/pelv CT 03/11: mod b/l pleural effusions and assoc consolidations; tiny probably gallstones within the gallbladder; small to moderate hiatal hernia; R inguinal hernia which contains small loops of bowel, likely small bowel- no evidence of obstruction as oral contrast is noted within R colon. No definite free air, however evaluation for pneumoperitoneum is suboptimal. Moderate to severe constipation with questionable impaction. Prostate gland 4.1cm x 4.6cm. Urinary bladder appears unremarkable. Small amount of fluid within a right inguinal hernia. Sclerosis of right iliac wing. Extensive anasarca. Aneursmal dilatation of ascending thoracic aorta; Currently 4.5 cm. Patient needs repeat Ct imaging every 6 months - last CT scan in 03/2016, should be monitored in September, BPH;chronic - 05/30: Dr Balderrama saw pt, possible procedure, will f/u - 05/22: call placed to Dr Hughes, will f/u - 05/18: Pyridium 200 mg PO TIDPC- discontinued - Flomax 0.8 mg PO daily - Finasteride 5 mg PO daily - Urology Dr. Hughes on board - will f/u with recs concerning inpatient TURP Onychomycosis;chronic and improving - patient had aseptic debridement of toenails x 10 - clotrimazole cream to be applied to feet b/l BID - podiatry following Sacral decubitus- resolved - 05/17- sacrum examined- no sacral ulcers noted - 05/16: patient needs to go from bed to chair to prevent ulcers from re-forming - 04/19: exam revealed a previously healed decubitus ulcer of right buttocks. Sacral exam was clear. - Wound care following - recommending medihoney covered with bordered telfa dressing to right lower buttocks stage 2 pressure ulcer daily. - Pt is OOB to chair with help from PT daily - Order placed for turning patient Q2H History of Urinary Tract Infection - 05/20: ordered repeat urine culture for urinary frequency - no growth (Final) - 05/17: urine culture negative - 05/16: + nitrates, 4 RBC, occasional bacteria. - urine culture 05/03- no growth - UA 05/05: +nitrates, occasional bacteria Diarrhea- resolved - 05/22 - resolved - culture negative - 05/18: c. diff negative, no salmonella - 05/17: ova and parasites negative Syncopal Episode x1- resolved - 05/04/16 CTA- negative for PE (underlying atelectasis new findings compared to the prior study 03/20/2016.) Prophylactic Measure - Labs weekly - Lovenox 40mg SC daily - Pepcid 20mg PO BID - A and D ointment TOP Q*H - Patient is homeless. Used to stay with friend, but no longer welcome there. Goal is to walk with cane so he can go to a senior care (will not qualify with a walker) - patient will need to work with PT frequently - right calf with dark skin lesion underneath knee immobilizer- wound care on board- applying medihoney DISPO - Reaching out to family in [facility] - no response from family per case management - Social Work is following up <Lionel Santo - Last Filed: 06/20/16 22:33> Objective - Vital Signs/Intake and Output Vital Signs (last 24 hours): Temp Pulse Resp BP Pulse Ox 97.1 F L 74 18 117/69 98 06/20/16 15:00 06/20/16 15:00 06/20/16 15:00 06/20/16 15:00 06/20/16 15:00 Intake and Output: 06/20/16 06/21/16 18:59 06:59 Intake Total 300 Output Total 6 Balance 294 - Medications Medications: Current Medications Acetaminophen (Tylenol 325mg Tab) 650 mg PO Q6 PRN PRN Reason: Pain, Mild (1-3) Last Admin: 06/19/16 21:49 Dose: 650 mg Carbamide Peroxide (Debrox Ear Drops) 1 ml AU BID [facility] Last Admin: 06/20/16 17:17 Dose: 5 drop Clotrimazole (Lotrimin 1%) 0 gm TOP BID [facility] Last Admin: 06/20/16 17:18 Dose: 1 applic Docusate Sodium (Colace) 100 mg PO BID [facility] Last Admin: 06/20/16 17:16 Dose: 100 mg Famotidine (Pepcid) 20 mg PO BID [facility] Last Admin: 06/20/16 17:16 Dose: 20 mg Heparin Sodium (Porcine) (Heparin) 5,000 units SC Q8 [facility] Last Admin: 06/20/16 21:43 Dose: 5,000 units Magnesium Oxide (Mag-Ox) 400 mg PO BID [facility] Last Admin: 06/20/16 17:17 Dose: 400 mg Polyethylene Glycol (Miralax) 17 gm PO Q2D [facility] Last Admin: 06/19/16 11:36 Dose: Not Given Silver Sulfadiazine (Silvadene 1% 20 Gm) 0 ea TOP Q12H [facility] Last Admin: 06/20/16 21:46 Dose: Not Given Sodium Chloride (Sodium Chloride Tab) 1 gm PO DAILY@1330 [facility] Last Admin: 06/20/16 13:59 Dose: 1 gm Tamsulosin HCl (Flomax) 0.8 mg PO DAILY [facility] Last Admin: 06/20/16 11:02 Dose: 0.8 mg Tramadol HCl (Ultram) 25 mg PO TID PRN PRN Reason: Pain, moderate (4-7) Last Admin: 06/20/16 21:52 Dose: 25 mg - Labs Labs: 06/19/16 06:49 06/19/16 06:49 Attending/Attestation - Attestation I have personally seen and examined this patient.: Yes I have fully participated in the care of the patient.: Yes I have reviewed all pertinent clinical information, including history, physical exam and plan: Yes
[2016-05-30] MEDS: Clotrimazole 1% Cream 15 GM TUBE TOP SCH ×2 (17:16→21:26)
[2016-05-31] MEDS: Vitamins A & D Oint UD Foilpak TOP SCH ×3 (01:45→18:00)
[2016-05-31] MEDS: Magnesium Oxide 400 mg Tab UD PO SCH ×2 (10:57→18:23)
[2016-05-31] MEDS: Enoxaparin 40 mg Syringe SC SCH (10:57)
[2016-05-31] MEDS: Clotrimazole 1% Cream 15 GM TUBE TOP SCH ×2 (10:59→18:00)
--- NOTE | 2016-05-31 13:13 | CP.PCM.PN ---
Subjective - Date & Time of Evaluation Date of Evaluation: 05/31/16 Time of Evaluation: 13:09 - Subjective Subjective: Tolerating PT well. No new complaints. Objective - Vital Signs/Intake and Output Vital Signs (last 24 hours): Temp Pulse Resp BP Pulse Ox 97.8 F 73 20 108/71 97 05/31/16 08:15 05/31/16 08:15 05/31/16 08:15 05/31/16 08:15 05/31/16 08:15 Intake and Output: 05/31/16 05/31/16 06:59 18:59 Intake Total 360 Balance 360 - Medications Medications: Current Medications Acetaminophen (Tylenol 325mg Tab) 650 mg PO Q6 [facility] Last Admin: 05/31/16 12:56 Dose: 650 mg Clotrimazole (Lotrimin 1%) 0 gm TOP BID [facility] Last Admin: 05/31/16 10:59 Dose: 1 applic Docusate Sodium (Colace) 100 mg PO BID [facility] Last Admin: 05/31/16 10:57 Dose: 100 mg Enoxaparin Sodium (Lovenox) 40 mg SC DAILY [facility] Last Admin: 05/31/16 10:57 Dose: 40 mg Famotidine (Pepcid) 20 mg PO BID [facility] Last Admin: 05/31/16 10:58 Dose: 20 mg Finasteride (Proscar) 5 mg PO DAILY [facility] Last Admin: 05/31/16 10:58 Dose: 5 mg Magnesium Oxide (Mag-Ox) 400 mg PO BID [facility] Last Admin: 05/31/16 10:57 Dose: 400 mg Sodium Chloride (Sodium Chloride Tab) 1 gm PO DAILY@1330 [facility] Last Admin: 05/31/16 12:58 Dose: 1 gm Tamsulosin HCl (Flomax) 0.8 mg PO DAILY [facility] Last Admin: 05/31/16 10:58 Dose: 0.8 mg Tramadol HCl (Ultram) 25 mg PO TID PRN PRN Reason: Pain, moderate (4-7) Last Admin: 05/29/16 11:13 Dose: 25 mg Vitamin A (Vitamin A & D Oint Ud Foilpak) 1 ea TOP Q8H [facility] Last Admin: 05/31/16 11:01 Dose: 1 ea - Labs Labs: 05/30/16 07:02 05/30/16 07:02 - Extremities Exam Additional comments: +DP pulse, sensation intact, calves sfot NT neg homans - Neurological Exam Additional comments: +ROM ankle/toes RLE Assessment and Plan (1) Acetabular protrusion Assessment & Plan: stable no ortho intervention planned Status: Acute (2) Fracture of tibia, proximal, right, closed Assessment & Plan: Discussed with Dr. Pino advance to 10% TTWB RLE plan repeat xrays in 2 weeks and reassess continue knee immobilizer PT order updated Status: Chronic
[2016-05-31] MEDS: POLYETHYLENE GLYCOL 3350 17 GM/Dose PACKET PO SCH ×2 (14:18→14:20)
--- NOTE | 2016-05-31 16:15 | CP.PCM.PN ---
<Wyatt Nassar - Last Filed: 05/31/16 16:12> Subjective - Date & Time of Evaluation Date of Evaluation: 05/31/16 Time of Evaluation: 16:12 - Subjective Subjective: PGY-1 note for medicine service Pt seen and examined at bedside. Pt has no new complaints. He states that he did have a little constipation. Denies fevers, chills, chest pain, sob, nausea or vomiting. Objective - Vital Signs/Intake and Output Vital Signs (last 24 hours): Temp Pulse Resp BP Pulse Ox 97.8 F 73 20 108/71 97 05/31/16 08:15 05/31/16 08:15 05/31/16 08:15 05/31/16 08:15 05/31/16 08:15 Intake and Output: 05/31/16 05/31/16 06:59 18:59 Intake Total 360 Balance 360 - Medications Medications: Current Medications Acetaminophen (Tylenol 325mg Tab) 650 mg PO Q6 [facility] Last Admin: 05/31/16 12:56 Dose: 650 mg Clotrimazole (Lotrimin 1%) 0 gm TOP BID [facility] Last Admin: 05/31/16 10:59 Dose: 1 applic Docusate Sodium (Colace) 100 mg PO BID [facility] Last Admin: 05/31/16 10:57 Dose: 100 mg Enoxaparin Sodium (Lovenox) 40 mg SC DAILY [facility] Last Admin: 05/31/16 10:57 Dose: 40 mg Famotidine (Pepcid) 20 mg PO BID [facility] Last Admin: 05/31/16 10:58 Dose: 20 mg Finasteride (Proscar) 5 mg PO DAILY [facility] Last Admin: 05/31/16 10:58 Dose: 5 mg Magnesium Oxide (Mag-Ox) 400 mg PO BID [facility] Last Admin: 05/31/16 10:57 Dose: 400 mg Polyethylene Glycol (Miralax) 17 gm PO Q2D [facility] Last Admin: 05/31/16 14:20 Dose: Not Given Sodium Chloride (Sodium Chloride Tab) 1 gm PO DAILY@1330 [facility] Last Admin: 05/31/16 12:58 Dose: 1 gm Tamsulosin HCl (Flomax) 0.8 mg PO DAILY [facility] Last Admin: 05/31/16 10:58 Dose: 0.8 mg Tramadol HCl (Ultram) 25 mg PO TID PRN PRN Reason: Pain, moderate (4-7) Last Admin: 05/29/16 11:13 Dose: 25 mg Vitamin A (Vitamin A & D Oint Ud Foilpak) 1 ea TOP Q8H [facility] Last Admin: 05/31/16 11:01 Dose: 1 ea - Labs Labs: 05/30/16 07:02 05/30/16 07:02 - Constitutional Appears: Non-toxic, No Acute Distress, Chronically Ill - Head Exam Head Exam: ATRAUMATIC, NORMOCEPHALIC - ENT Exam ENT Exam: Mucous Membranes Moist - Respiratory Exam Respiratory Exam: Clear to Ausculation Bilateral, NORMAL BREATHING PATTERN - Cardiovascular Exam Cardiovascular Exam: +S1, +S2 - GI/Abdominal Exam GI & Abdominal Exam: Soft, Normal Bowel Sounds - Neurological Exam Neurological Exam: Alert, Awake - Skin Skin Exam: Intact, Warm Assessment and Plan - Assessment and Plan (Free Text) Assessment: Leg swelling - 05/23: will order left leg US to r/o DVT - negative for DVT or any other abnormalities - 05/20: venous doppler ordered - read as: No evidence of deep or superficial vein thrombosis of the right lower extremity with excellent venous flow. Normal valve function noted of the right side. Normal venous flow noted in the left common femoral vein. Hypokalemia - Monitor - Replete as needed Abdominal discomfort likely 2/2 Constipation - Lactulose, reports BMs - Monitor Facial rash - resembles seborrheic dermatitis, patient encouraged to moisturize - ESR 32 - CRP 1.51 - RA- negative - A&D ointment to face Fracture of tibia, proximal, right, closed; pain management and physical therapy - 05/31 - per ortho - Advance to 10% TTWB RLE, plan repeat xrays in 2 weeks and reassess, continue knee immobilizer, PT order updated - 05/29 - Cont to work with PT. Able to ambulate with walker, NWB on right LE. -05/27- cont current mgmt - 05/24 - continue with current management. - 05/20- ordered venous doppler right leg for swelling - results as above - 05/18- repeat xray with no significant change - 05/11- per ortho team: patient to remain non-weight bearing to right lower extremity - 05/09- right knee xrays ordered by orthopedics team- No acute fracture. Status post ORIF old patellar fracture No significant interval change compared to the prior examination Will follow up recommendations from orthopedics team - 05/05:Ortho Dr. Pino and Jayce West PA following- no orthopedic intervention indicated at this time, strict NWB, PT/OT - Impaction/insufficiency fracture, lateral aspect proximal tibia, non operative , treated with strict NWB and immobilization - At least 6 weeks old by imaging - Tylenol 650 mg PO Q6 PRN mild pain - Tramadol 25mg TID pRN - Daily physical therapy - Nonweight bearing on R leg - L knee x-ray: severe osteopenia. Sclerotic changes about the posterior proximal tibia may relate to a sclerotic healing response of a prior stress fracture here. no tibial plateau depressed fracture. The sclerosis is perceived on the prior 04/21 study; no interval pathology appreciated between 2 exams. If symptoms worsen consider MRI. 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 adding sodium chloride tablets 1g daily - 05/05: -Supine BP: 114/71, HR 75 -Sitting BP: 113/71, HR 90 -Standing BP: 116/72, HR 94 Gait Instability; will continue with PT/OT - Patient uses walker- NWB at this time RLE - not safe for discharge to custodial - Chronic RLE pain (since admission) due to slippage of mechanical hardware in his leg from prior procedure - R knee immobilizer in place and patient on strict NWB status - Xray 04/03: superior migration of prosthesis. sclerosi about right acetabulum - daily physical therapy - PT 05/05: decline in transfers due to limitation from right hip and knee pain. patient still able to tolerate hallway ambulation, no episode of orthostatic hypotension post gait. recommending room/hallway ambulation w/ nursing for AM/ PM care or toileting. - PT 05/09: decline in function limited by persisting right groin/ hip and knee pain. patient still recommended for daily out of bed during am/pm care. cleared for ambulation in the room with standard walker non weight bearing right lower extremity - PT 05/10: mild decline in transfers due to pain in right knee and hip. NWB to RLE. Patient with episode of hypotension post ambulation- no syncope. - 05/16: discussed with PT. Patient function declining due to immobility. Patient needs to go from bed to chair. Patient should also be ambulating to the bathroom with assist. Patient becomes hypotensive with walking. - 05/17: patient assisted to chair. discussed with nursing the need for ambulation to and from bathroom with assistance as well as transfer from bed to chair Anemia; will monitor - 05/30: Hgb trending up - 05/26: may have a component of Fe deficiency, will replete - 05/25: Hgb still low, will get labs with Iron panel tomorrow - 05/22: Hgb 8.7, repeated and was 9.5 - 05/15: hgb 11.0 - chronic - monitor with weekly labs Abdominal Pain; resolved - 05/24: less abd pain, reports BMs - 05/22: continues to complain of straining, will give one time miralax dose - 05/21: restart colace 100mg BID as patient straining to have BM - patient with multiple soft stools- will stop miralax for now - patient has been complaining of abdominal pain since admission - Colace 100mg PO BID - Dulcolax every 3 days - Inguinal hernia with unobstructed bowel loop involvement; protruded 04/18 due to straining on toilet. - 05/03/16 B/L inguinal hernias reduced today without incidence - Abdominal US 04/01: Gallstones, no acute cholecystitis, no hydronephrosis. trace ascites (see full report) - Abd/pelv CT 03/11: mod b/l pleural effusions and assoc consolidations; tiny probably gallstones within the gallbladder; small to moderate hiatal hernia; R inguinal hernia which contains small loops of bowel, likely small bowel- no evidence of obstruction as oral contrast is noted within R colon. No definite free air, however evaluation for pneumoperitoneum is suboptimal. Moderate to severe constipation with questionable impaction. Prostate gland 4.1cm x 4.6cm. Urinary bladder appears unremarkable. Small amount of fluid within a right inguinal hernia. Sclerosis of right iliac wing. Extensive anasarca. Aneursmal dilatation of ascending thoracic aorta; Currently 4.5 cm. Patient needs repeat Ct imaging every 6 months - last CT scan in 03/2016, should be monitored in September, BPH;chronic - 05/30: Dr Balderrama saw pt, possible procedure, will f/u - 05/22: call placed to Dr Hughes, will f/u - 05/18: Pyridium 200 mg PO TIDPC- discontinued - Flomax 0.8 mg PO daily - Finasteride 5 mg PO daily - Urology Dr. Hughes on board - will f/u with recs concerning inpatient TURP Onychomycosis;chronic and improving - patient had aseptic debridement of toenails x 10 - clotrimazole cream to be applied to feet b/l BID - podiatry following Sacral decubitus- resolved - 05/17- sacrum examined- no sacral ulcers noted - 05/16: patient needs to go from bed to chair to prevent ulcers from re-forming - 04/19: exam revealed a previously healed decubitus ulcer of right buttocks. Sacral exam was clear. - Wound care following - recommending medihoney covered with bordered telfa dressing to right lower buttocks stage 2 pressure ulcer daily. - Pt is OOB to chair with help from PT daily - Order placed for turning patient Q2H History of Urinary Tract Infection - 05/20: ordered repeat urine culture for urinary frequency - no growth (Final) - 05/17: urine culture negative - 05/16: + nitrates, 4 RBC, occasional bacteria. - urine culture 05/03- no growth - UA 05/05: +nitrates, occasional bacteria Diarrhea- resolved - 05/22 - resolved - culture negative - 05/18: c. diff negative, no salmonella - 05/17: ova and parasites negative Syncopal Episode x1- resolved - 05/04/16 CTA- negative for PE (underlying atelectasis new findings compared to the prior study 03/20/2016.) Prophylactic Measure - Labs weekly - Lovenox 40mg SC daily - Pepcid 20mg PO BID - A and D ointment TOP Q*H - Patient is homeless. Used to stay with friend, but no longer welcome there. Goal is to walk with cane so he can go to a custodial (will not qualify with a walker) - patient will need to work with PT frequently - right calf with dark skin lesion underneath knee immobilizer- wound care on board- applying medihoney DISPO - Reaching out to family in [facility] - no response from family per case management - Social Work is following up <Lionel Santo - Last Filed: 06/20/16 22:41> Objective - Vital Signs/Intake and Output Vital Signs (last 24 hours): Temp Pulse Resp BP Pulse Ox 97.1 F L 74 18 117/69 98 06/20/16 15:00 06/20/16 15:00 06/20/16 15:00 06/20/16 15:00 06/20/16 15:00 Intake and Output: 06/20/16 06/21/16 18:59 06:59 Intake Total 300 Output Total 6 Balance 294 - Medications Medications: Current Medications Acetaminophen (Tylenol 325mg Tab) 650 mg PO Q6 PRN PRN Reason: Pain, Mild (1-3) Last Admin: 06/19/16 21:49 Dose: 650 mg Carbamide Peroxide (Debrox Ear Drops) 1 ml AU BID [facility] Last Admin: 06/20/16 17:17 Dose: 5 drop Clotrimazole (Lotrimin 1%) 0 gm TOP BID [facility] Last Admin: 06/20/16 17:18 Dose: 1 applic Docusate Sodium (Colace) 100 mg PO BID [facility] Last Admin: 06/20/16 17:16 Dose: 100 mg Famotidine (Pepcid) 20 mg PO BID [facility] Last Admin: 06/20/16 17:16 Dose: 20 mg Heparin Sodium (Porcine) (Heparin) 5,000 units SC Q8 [facility] Last Admin: 06/20/16 21:43 Dose: 5,000 units Magnesium Oxide (Mag-Ox) 400 mg PO BID [facility] Last Admin: 06/20/16 17:17 Dose: 400 mg Polyethylene Glycol (Miralax) 17 gm PO Q2D [facility] Last Admin: 06/19/16 11:36 Dose: Not Given Silver Sulfadiazine (Silvadene 1% 20 Gm) 0 ea TOP Q12H [facility] Last Admin: 06/20/16 21:46 Dose: Not Given Sodium Chloride (Sodium Chloride Tab) 1 gm PO DAILY@1330 [facility] Last Admin: 06/20/16 13:59 Dose: 1 gm Tamsulosin HCl (Flomax) 0.8 mg PO DAILY [facility] Last Admin: 06/20/16 11:02 Dose: 0.8 mg Tramadol HCl (Ultram) 25 mg PO TID PRN PRN Reason: Pain, moderate (4-7) Last Admin: 06/20/16 21:52 Dose: 25 mg - Labs Labs: 06/19/16 06:49 06/19/16 06:49 Attending/Attestation - Attestation I have personally seen and examined this patient.: Yes I have fully participated in the care of the patient.: Yes I have reviewed all pertinent clinical information, including history, physical exam and plan: Yes
[2016-06-01] MEDS: Vitamins A & D Oint UD Foilpak TOP SCH ×3 (01:45→18:00)
--- NOTE | 2016-06-01 10:08 | CP.PCM.PN ---
<Wyatt Nassar - Last Filed: 06/01/16 14:22> Subjective - Date & Time of Evaluation Date of Evaluation: 06/01/16 Time of Evaluation: 10:04 - Subjective Subjective: PGY-1 note for medicine service Pt seen and examined at bedside. Pt has no new complaints. Denies fevers, chills , chest pain, sob, palpitation, nausea or vomiting Objective - Vital Signs/Intake and Output Vital Signs (last 24 hours): Temp Pulse Resp BP Pulse Ox 98 F 70 20 106/63 97 06/01/16 07:49 06/01/16 07:49 06/01/16 07:49 06/01/16 07:49 06/01/16 07:49 Intake and Output: 06/01/16 06/01/16 06:59 18:59 Intake Total 300 250 Output Total 800 Balance -500 250 - Medications Medications: Current Medications Acetaminophen (Tylenol 325mg Tab) 650 mg PO Q6 [facility] Last Admin: 06/01/16 06:00 Dose: 650 mg Clotrimazole (Lotrimin 1%) 0 gm TOP BID [facility] Last Admin: 05/31/16 18:00 Dose: 1 applic Docusate Sodium (Colace) 100 mg PO BID [facility] Last Admin: 05/31/16 18:23 Dose: 100 mg Enoxaparin Sodium (Lovenox) 40 mg SC DAILY [facility] Last Admin: 05/31/16 10:57 Dose: 40 mg Famotidine (Pepcid) 20 mg PO BID [facility] Last Admin: 05/31/16 18:23 Dose: 20 mg Finasteride (Proscar) 5 mg PO DAILY [facility] Last Admin: 05/31/16 10:58 Dose: 5 mg Magnesium Oxide (Mag-Ox) 400 mg PO BID [facility] Last Admin: 05/31/16 18:23 Dose: 400 mg Polyethylene Glycol (Miralax) 17 gm PO Q2D [facility] Last Admin: 05/31/16 14:20 Dose: Not Given Sodium Chloride (Sodium Chloride Tab) 1 gm PO DAILY@1330 [facility] Last Admin: 05/31/16 12:58 Dose: 1 gm Tamsulosin HCl (Flomax) 0.8 mg PO DAILY [facility] Last Admin: 05/31/16 10:58 Dose: 0.8 mg Tramadol HCl (Ultram) 25 mg PO TID PRN PRN Reason: Pain, moderate (4-7) Last Admin: 05/29/16 11:13 Dose: 25 mg Vitamin A (Vitamin A & D Oint Ud Foilpak) 1 ea TOP Q8H [facility] Last Admin: 06/01/16 01:45 Dose: Not Given - Labs Labs: 05/30/16 07:02 05/30/16 07:02 - Constitutional Appears: Non-toxic, No Acute Distress - Head Exam Head Exam: ATRAUMATIC, NORMOCEPHALIC - Eye Exam Eye Exam: Normal appearance - ENT Exam ENT Exam: Mucous Membranes Moist - Respiratory Exam Respiratory Exam: Clear to Ausculation Bilateral, NORMAL BREATHING PATTERN - Cardiovascular Exam Cardiovascular Exam: +S1, +S2 - GI/Abdominal Exam GI & Abdominal Exam: Soft, Normal Bowel Sounds - Extremities Exam Additional comments: Brace on right leg - Neurological Exam Neurological Exam: Alert, Awake - Skin Skin Exam: Dry, Warm Assessment and Plan - Assessment and Plan (Free Text) Assessment: Leg swelling - 05/23: will order left leg US to r/o DVT - negative for DVT or any other abnormalities - 05/20: venous doppler ordered - read as: No evidence of deep or superficial vein thrombosis of the right lower extremity with excellent venous flow. Normal valve function noted of the right side. Normal venous flow noted in the left common femoral vein. BPH;chronic - 05/30: Dr Balderrama saw pt, possible procedure, says maybe early in the week of - 05/18: Pyridium 200 mg PO TIDPC- discontinued - Flomax 0.8 mg PO daily - Finasteride 5 mg PO daily - Urology Dr. Hughes on board - will f/u with recs concerning inpatient TURP Fracture of tibia, proximal, right, closed; pain management and physical therapy - 05/31 - per ortho - Advance to 10% TTWB RLE, plan repeat xrays in 2 weeks and reassess, continue knee immobilizer, PT order updated - 05/29 - Cont to work with PT. Able to ambulate with walker, NWB on right LE. -05/27- cont current mgmt - 05/24 - continue with current management. - 05/20- ordered venous doppler right leg for swelling - results as above - 05/18- repeat xray with no significant change - 05/11- per ortho team: patient to remain non-weight bearing to right lower extremity - 05/09- right knee xrays ordered by orthopedics team- No acute fracture. Status post ORIF old patellar fracture No significant interval change compared to the prior examination Will follow up recommendations from orthopedics team - 05/05:Ortho Dr. Pino and Jayce West PA following- no orthopedic intervention indicated at this time, strict NWB, PT/OT - Impaction/insufficiency fracture, lateral aspect proximal tibia, non operative , treated with strict NWB and immobilization - At least 6 weeks old by imaging - Tylenol 650 mg PO Q6 PRN mild pain - Tramadol 25mg TID pRN - Daily physical therapy - Nonweight bearing on R leg - L knee x-ray: severe osteopenia. Sclerotic changes about the posterior proximal tibia may relate to a sclerotic healing response of a prior stress fracture here. no tibial plateau depressed fracture. The sclerosis is perceived on the prior 04/21 study; no interval pathology appreciated between 2 exams. If symptoms worsen consider MRI. 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 sclerosi about right acetabulum - daily physical therapy - PT 05/05: decline in transfers due to limitation from right hip and knee pain. patient still able to tolerate hallway ambulation, no episode of orthostatic hypotension post gait. recommending room/hallway ambulation w/ nursing for AM/ PM care or toileting. - PT 05/09: decline in function limited by persisting right groin/ hip and knee pain. patient still recommended for daily out of bed during am/pm care. cleared for ambulation in the room with standard walker non weight bearing right lower extremity - PT 05/10: mild decline in transfers due to pain in right knee and hip. NWB to RLE. Patient with episode of hypotension post ambulation- no syncope. - 05/16: discussed with PT. Patient function declining due to immobility. Patient needs to go from bed to chair. Patient should also be ambulating to the bathroom with assist. Patient becomes hypotensive with walking. - 05/17: patient assisted to chair. discussed with nursing the need for ambulation to and from bathroom with assistance as well as transfer from bed to chair Abdominal discomfort likely 2/2 Constipation - Lactulose, reports BMs - Monitor Facial rash - resembles seborrheic dermatitis, patient encouraged to moisturize - ESR 32 - CRP 1.51 - RA- negative - A&D ointment to face Orthostasis - 05/21: IV fluids- NS at 100cc/h - stopped - 05/16: Per PT, patient becomes hypotensive with exertion. adding sodium chloride tablets 1g daily - 05/05: -Supine BP: 114/71, HR 75 -Sitting BP: 113/71, HR 90 -Standing BP: 116/72, HR 94 Anemia; will monitor - 05/30: Hgb trending up - 05/26: may have a component of Fe deficiency, will replete - 05/25: Hgb still low, will get labs with Iron panel tomorrow - 05/22: Hgb 8.7, repeated and was 9.5 - 05/15: hgb 11.0 - chronic - monitor with weekly labs Abdominal Pain; resolved - 05/24: less abd pain, reports BMs - 05/22: continues to complain of straining, will give one time miralax dose - 05/21: restart colace 100mg BID as patient straining to have BM - patient with multiple soft stools- will stop miralax for now - patient has been complaining of abdominal pain since admission - Colace 100mg PO BID - Dulcolax every 3 days - Inguinal hernia with unobstructed bowel loop involvement; protruded 04/18 due to straining on toilet. - 05/03/16 B/L inguinal hernias reduced today without incidence - Abdominal US 04/01: Gallstones, no acute cholecystitis, no hydronephrosis. trace ascites (see full report) - Abd/pelv CT 03/11: mod b/l pleural effusions and assoc consolidations; tiny probably gallstones within the gallbladder; small to moderate hiatal hernia; R inguinal hernia which contains small loops of bowel, likely small bowel- no evidence of obstruction as oral contrast is noted within R colon. No definite free air, however evaluation for pneumoperitoneum is suboptimal. Moderate to severe constipation with questionable impaction. Prostate gland 4.1cm x 4.6cm. Urinary bladder appears unremarkable. Small amount of fluid within a right inguinal hernia. Sclerosis of right iliac wing. Extensive anasarca. Aneursmal dilatation of ascending thoracic aorta; Currently 4.5 cm. Patient needs repeat Ct imaging every 6 months - last CT scan in 03/2016, should be monitored in September, Onychomycosis;chronic and improving - patient had aseptic debridement of toenails x 10 - clotrimazole cream to be applied to feet b/l BID - podiatry following Sacral decubitus- resolved - 05/17- sacrum examined- no sacral ulcers noted - 05/16: patient needs to go from bed to chair to prevent ulcers from re-forming - 04/19: exam revealed a previously healed decubitus ulcer of right buttocks. Sacral exam was clear. - Wound care following - recommending medihoney covered with bordered telfa dressing to right lower buttocks stage 2 pressure ulcer daily. - Pt is OOB to chair with help from PT daily - Order placed for turning patient Q2H History of Urinary Tract Infection - 05/20: ordered repeat urine culture for urinary frequency - no growth (Final) - 05/17: urine culture negative - 05/16: + nitrates, 4 RBC, occasional bacteria. - urine culture 05/03- no growth - UA 05/05: +nitrates, occasional bacteria Diarrhea- resolved - 05/22 - resolved - culture negative - 05/18: c. diff negative, no salmonella - 05/17: ova and parasites negative Hypokalemia - Monitor - Replete as needed Syncopal Episode x1- resolved - 05/04/16 CTA- negative for PE (underlying atelectasis new findings compared to the prior study 03/20/2016.) Prophylactic Measure - Labs weekly - Lovenox 40mg SC daily - Pepcid 20mg PO BID - A and D ointment TOP Q*H - Patient is homeless. Used to stay with friend, but no longer welcome there. Goal is to walk with cane so he can go to a [facility] (will not qualify with a walker) - patient will need to work with PT frequently - right calf with dark skin lesion underneath knee immobilizer- wound care on board- applying medihoney DISPO - Reaching out to family in [facility] - no response from family per case management - Social Work is following up <Jose Wiggins - Last Filed: 06/01/16 18:13> Objective - Vital Signs/Intake and Output Vital Signs (last 24 hours): Temp Pulse Resp BP Pulse Ox 97.7 F 78 20 99/62 L 100 06/01/16 15:55 06/01/16 16:02 06/01/16 15:55 06/01/16 15:55 06/01/16 15:55 Intake and Output: 06/01/16 06/01/16 06:59 18:59 Intake Total 300 750 Output Total 800 Balance -500 750 - Medications Medications: Current Medications Acetaminophen (Tylenol 325mg Tab) 650 mg PO Q6 [facility] Last Admin: 06/01/16 11:06 Dose: 650 mg Clotrimazole (Lotrimin 1%) 0 gm TOP BID [facility] Last Admin: 06/01/16 11:01 Dose: Not Given Docusate Sodium (Colace) 100 mg PO BID [facility] Last Admin: 06/01/16 10:59 Dose: 100 mg Enoxaparin Sodium (Lovenox) 40 mg SC DAILY [facility] Last Admin: 06/01/16 11:00 Dose: 40 mg Famotidine (Pepcid) 20 mg PO BID [facility] Last Admin: 06/01/16 10:59 Dose: 20 mg Finasteride (Proscar) 5 mg PO DAILY [facility] Last Admin: 06/01/16 11:00 Dose: 5 mg Magnesium Oxide (Mag-Ox) 400 mg PO BID [facility] Last Admin: 06/01/16 11:00 Dose: 400 mg Polyethylene Glycol (Miralax) 17 gm PO Q2D [facility] Last Admin: 05/31/16 14:20 Dose: Not Given Sodium Chloride (Sodium Chloride Tab) 1 gm PO DAILY@1330 [facility] Last Admin: 06/01/16 13:31 Dose: 1 gm Tamsulosin HCl (Flomax) 0.8 mg PO DAILY [facility] Last Admin: 06/01/16 10:59 Dose: 0.8 mg Tramadol HCl (Ultram) 25 mg PO TID PRN PRN Reason: Pain, moderate (4-7) Last Admin: 05/29/16 11:13 Dose: 25 mg Vitamin A (Vitamin A & D Oint Ud Foilpak) 1 ea TOP Q8H [facility] Last Admin: 06/01/16 11:01 Dose: 1 ea - Labs Labs: 05/30/16 07:02 05/30/16 07:02 Attending/Attestation - Attestation I have personally seen and examined this patient.: Yes I have fully participated in the care of the patient.: Yes I have reviewed all pertinent clinical information, including history, physical exam and plan: Yes Notes (Text): 06/01/16 18:13 patient was seen and examined at bedside with rest and Continue physical therapy daily Continue pain management Urology evaluation is in progress Plan for cystoscopy/TURP as per urology.
[2016-06-01] MEDS: Enoxaparin 40 mg Syringe SC SCH (11:00)
[2016-06-01] MEDS: Magnesium Oxide 400 mg Tab UD PO SCH ×2 (11:00→20:31)
[2016-06-01] MEDS: Clotrimazole 1% Cream 15 GM TUBE TOP SCH ×2 (11:01→18:00)
[2016-06-02] MEDS: Vitamins A & D Oint UD Foilpak TOP SCH ×3 (00:56→18:07)
--- NOTE | 2016-06-02 08:43 | CP.PCM.PN ---
<Wyatt Nassar - Last Filed: 06/02/16 11:44> Subjective - Date & Time of Evaluation Date of Evaluation: 06/02/16 Time of Evaluation: 08:41 - Subjective Subjective: PGY-1 note for medicine service Pt seen and examined at bedside. Pt has no new complaints. Denies fevers, chills , chest pain, sob, nausea or vomiting. Objective - Vital Signs/Intake and Output Vital Signs (last 24 hours): Temp Pulse Resp BP Pulse Ox 97.6 F 63 20 134/76 97 06/02/16 07:53 06/02/16 07:53 06/02/16 07:53 06/02/16 07:53 06/02/16 07:53 Intake and Output: 06/02/16 06/02/16 06:59 18:59 Intake Total 480 Output Total 400 Balance 80 - Medications Medications: Current Medications Acetaminophen (Tylenol 325mg Tab) 650 mg PO Q6 [facility] Last Admin: 06/02/16 06:50 Dose: 650 mg Clotrimazole (Lotrimin 1%) 0 gm TOP BID [facility] Last Admin: 06/01/16 18:00 Dose: Not Given Docusate Sodium (Colace) 100 mg PO BID [facility] Last Admin: 06/01/16 20:31 Dose: 100 mg Enoxaparin Sodium (Lovenox) 40 mg SC DAILY [facility] Last Admin: 06/01/16 11:00 Dose: 40 mg Famotidine (Pepcid) 20 mg PO BID [facility] Last Admin: 06/01/16 20:31 Dose: 20 mg Finasteride (Proscar) 5 mg PO DAILY [facility] Last Admin: 06/01/16 11:00 Dose: 5 mg Magnesium Oxide (Mag-Ox) 400 mg PO BID [facility] Last Admin: 06/01/16 20:31 Dose: 400 mg Polyethylene Glycol (Miralax) 17 gm PO Q2D [facility] Last Admin: 05/31/16 14:20 Dose: Not Given Sodium Chloride (Sodium Chloride Tab) 1 gm PO DAILY@1330 [facility] Last Admin: 06/01/16 13:31 Dose: 1 gm Tamsulosin HCl (Flomax) 0.8 mg PO DAILY [facility] Last Admin: 06/01/16 10:59 Dose: 0.8 mg Tramadol HCl (Ultram) 25 mg PO TID PRN PRN Reason: Pain, moderate (4-7) Last Admin: 05/29/16 11:13 Dose: 25 mg Vitamin A (Vitamin A & D Oint Ud Foilpak) 1 ea TOP Q8H [facility] Last Admin: 06/02/16 00:56 Dose: 1 ea - Labs Labs: 05/30/16 07:02 05/30/16 07:02 - Constitutional Appears: Non-toxic, No Acute Distress, Chronically Ill - Head Exam Head Exam: ATRAUMATIC, NORMOCEPHALIC - Respiratory Exam Respiratory Exam: Clear to Ausculation Bilateral, NORMAL BREATHING PATTERN - Cardiovascular Exam Cardiovascular Exam: +S1, +S2 - GI/Abdominal Exam GI & Abdominal Exam: Soft, Normal Bowel Sounds - Neurological Exam Neurological Exam: Alert, Awake - Skin Skin Exam: Dry, Warm Assessment and Plan - Assessment and Plan (Free Text) Assessment: Leg swelling - 05/23: will order left leg US to r/o DVT - negative for DVT or any other abnormalities - 05/20: venous doppler ordered - read as: No evidence of deep or superficial vein thrombosis of the right lower extremity with excellent venous flow. Normal valve function noted of the right side. Normal venous flow noted in the left common femoral vein. BPH;chronic - 05/30: Dr Balderrama saw pt, possible procedure, says maybe early in the week of - 05/18: Pyridium 200 mg PO TIDPC- discontinued - Flomax 0.8 mg PO daily - Finasteride 5 mg PO daily - Urology Dr. Hughes on board - will f/u with recs concerning inpatient TURP Fracture of tibia, proximal, right, closed; pain management and physical therapy - 05/31 - per ortho - Advance to 10% TTWB RLE, plan repeat xrays in 2 weeks and reassess, continue knee immobilizer, PT order updated - 05/29 - Cont to work with PT. Able to ambulate with walker, NWB on right LE. -05/27- cont current mgmt - 05/24 - continue with current management. - 05/20- ordered venous doppler right leg for swelling - results as above - 05/18- repeat xray with no significant change - 05/11- per ortho team: patient to remain non-weight bearing to right lower extremity - 05/09- right knee xrays ordered by orthopedics team- No acute fracture. Status post ORIF old patellar fracture No significant interval change compared to the prior examination Will follow up recommendations from orthopedics team - 05/05:Ortho Dr. Pino and Jayce West PA following- no orthopedic intervention indicated at this time, strict NWB, PT/OT - Impaction/insufficiency fracture, lateral aspect proximal tibia, non operative , treated with strict NWB and immobilization - At least 6 weeks old by imaging - Tylenol 650 mg PO Q6 PRN mild pain - Tramadol 25mg TID pRN - Daily physical therapy - Nonweight bearing on R leg - L knee x-ray: severe osteopenia. Sclerotic changes about the posterior proximal tibia may relate to a sclerotic healing response of a prior stress fracture here. no tibial plateau depressed fracture. The sclerosis is perceived on the prior 04/21 study; no interval pathology appreciated between 2 exams. If symptoms worsen consider MRI. 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 sclerosi about right acetabulum - daily physical therapy - PT 05/05: decline in transfers due to limitation from right hip and knee pain. patient still able to tolerate hallway ambulation, no episode of orthostatic hypotension post gait. recommending room/hallway ambulation w/ nursing for AM/ PM care or toileting. - PT 05/09: decline in function limited by persisting right groin/ hip and knee pain. patient still recommended for daily out of bed during am/pm care. cleared for ambulation in the room with standard walker non weight bearing right lower extremity - PT 05/10: mild decline in transfers due to pain in right knee and hip. NWB to RLE. Patient with episode of hypotension post ambulation- no syncope. - 05/16: discussed with PT. Patient function declining due to immobility. Patient needs to go from bed to chair. Patient should also be ambulating to the bathroom with assist. Patient becomes hypotensive with walking. - 05/17: patient assisted to chair. discussed with nursing the need for ambulation to and from bathroom with assistance as well as transfer from bed to chair Abdominal discomfort likely 2/2 Constipation - Lactulose, reports BMs - Monitor Facial rash - resembles seborrheic dermatitis, patient encouraged to moisturize - ESR 32 - CRP 1.51 - RA- negative - A&D ointment to face Orthostasis - 05/21: IV fluids- NS at 100cc/h - stopped - 05/16: Per PT, patient becomes hypotensive with exertion. adding sodium chloride tablets 1g daily - 05/05: -Supine BP: 114/71, HR 75 -Sitting BP: 113/71, HR 90 -Standing BP: 116/72, HR 94 Anemia; will monitor - 05/30: Hgb trending up - 05/26: may have a component of Fe deficiency, will replete - 05/25: Hgb still low, will get labs with Iron panel tomorrow - 05/22: Hgb 8.7, repeated and was 9.5 - 05/15: hgb 11.0 - chronic - monitor with weekly labs Abdominal Pain; resolved - 05/24: less abd pain, reports BMs - 05/22: continues to complain of straining, will give one time miralax dose - 05/21: restart colace 100mg BID as patient straining to have BM - patient with multiple soft stools- will stop miralax for now - patient has been complaining of abdominal pain since admission - Colace 100mg PO BID - Dulcolax every 3 days - Inguinal hernia with unobstructed bowel loop involvement; protruded 04/18 due to straining on toilet. - 05/03/16 B/L inguinal hernias reduced today without incidence - Abdominal US 04/01: Gallstones, no acute cholecystitis, no hydronephrosis. trace ascites (see full report) - Abd/pelv CT 03/11: mod b/l pleural effusions and assoc consolidations; tiny probably gallstones within the gallbladder; small to moderate hiatal hernia; R inguinal hernia which contains small loops of bowel, likely small bowel- no evidence of obstruction as oral contrast is noted within R colon. No definite free air, however evaluation for pneumoperitoneum is suboptimal. Moderate to severe constipation with questionable impaction. Prostate gland 4.1cm x 4.6cm. Urinary bladder appears unremarkable. Small amount of fluid within a right inguinal hernia. Sclerosis of right iliac wing. Extensive anasarca. Aneursmal dilatation of ascending thoracic aorta; Currently 4.5 cm. Patient needs repeat Ct imaging every 6 months - last CT scan in 03/2016, should be monitored in September, Onychomycosis;chronic and improving - patient had aseptic debridement of toenails x 10 - clotrimazole cream to be applied to feet b/l BID - podiatry following Sacral decubitus- resolved - 05/17- sacrum examined- no sacral ulcers noted - 05/16: patient needs to go from bed to chair to prevent ulcers from re-forming - 04/19: exam revealed a previously healed decubitus ulcer of right buttocks. Sacral exam was clear. - Wound care following - recommending medihoney covered with bordered telfa dressing to right lower buttocks stage 2 pressure ulcer daily. - Pt is OOB to chair with help from PT daily - Order placed for turning patient Q2H History of Urinary Tract Infection - 05/20: ordered repeat urine culture for urinary frequency - no growth (Final) - 05/17: urine culture negative - 05/16: + nitrates, 4 RBC, occasional bacteria. - urine culture 05/03- no growth - UA 05/05: +nitrates, occasional bacteria Diarrhea- resolved - 05/22 - resolved - culture negative - 05/18: c. diff negative, no salmonella - 05/17: ova and parasites negative Hypokalemia - Monitor - Replete as needed Syncopal Episode x1- resolved - 05/04/16 CTA- negative for PE (underlying atelectasis new findings compared to the prior study 03/20/2016.) Prophylactic Measure - Labs weekly - Lovenox 40mg SC daily - Pepcid 20mg PO BID - A and D ointment TOP Q*H - Patient is homeless. Used to stay with friend, but no longer welcome there. Goal is to walk with cane so he can go to a [place] [facility] (will not qualify with a walker) - patient will need to work with PT frequently - right calf with dark skin lesion underneath knee immobilizer- wound care on board- applying medihoney DISPO - Reaching out to family in [facility] - no response from family per case management - Social Work is following up <Sangeeta Wigginsn Ahmet - Last Filed: 06/05/16 15:21> Objective - Vital Signs/Intake and Output Vital Signs (last 24 hours): Temp Pulse Resp BP Pulse Ox 97.6 F 67 20 115/72 98 06/05/16 08:00 06/05/16 13:30 06/05/16 08:00 06/05/16 08:00 06/05/16 08:00 Intake and Output: 06/05/16 06/05/16 06:59 18:59 Intake Total 550 250 Output Total 400 Balance 150 250 - Medications Medications: Current Medications Acetaminophen (Tylenol 325mg Tab) 650 mg PO Q6 [facility] Last Admin: 06/05/16 12:40 Dose: 650 mg Carbamide Peroxide (Debrox Ear Drops) 1 ml AU BID [facility] Last Admin: 06/05/16 09:20 Dose: 1 ml Clotrimazole (Lotrimin 1%) 0 gm TOP BID [facility] Last Admin: 06/05/16 09:20 Dose: 1 applic Docusate Sodium (Colace) 100 mg PO BID [facility] Last Admin: 06/05/16 09:19 Dose: 100 mg Enoxaparin Sodium (Lovenox) 40 mg SC DAILY [facility] Last Admin: 06/05/16 09:20 Dose: 40 mg Famotidine (Pepcid) 20 mg PO BID [facility] Last Admin: 06/05/16 09:18 Dose: 20 mg Magnesium Oxide (Mag-Ox) 400 mg PO BID [facility] Last Admin: 06/05/16 09:19 Dose: 400 mg Polyethylene Glycol (Miralax) 17 gm PO Q2D [facility] Last Admin: 06/04/16 14:25 Dose: Not Given Sodium Chloride (Sodium Chloride Tab) 1 gm PO DAILY@1330 [facility] Last Admin: 06/05/16 12:39 Dose: 1 gm Tamsulosin HCl (Flomax) 0.8 mg PO DAILY [facility] Last Admin: 06/05/16 09:19 Dose: 0.8 mg Tramadol HCl (Ultram) 25 mg PO TID PRN PRN Reason: Pain, moderate (4-7) Last Admin: 06/03/16 10:35 Dose: 25 mg - Labs Labs: 06/05/16 07:14 06/05/16 07:14 Attending/Attestation - Attestation I have personally seen and examined this patient.: Yes I have fully participated in the care of the patient.: Yes I have reviewed all pertinent clinical information, including history, physical exam and plan: Yes Notes (Text): 06/05/16 15:20 Patient was seen and examined at bedside with the resident This is a late computer entry Patient is awake alert and complains of right lower extremity pain We will continue current management. Continue physical therapy daily I agree with the above assessment and plan by the resident
[2016-06-02] MEDS: Enoxaparin 40 mg Syringe SC SCH (09:32)
[2016-06-02] MEDS: Magnesium Oxide 400 mg Tab UD PO SCH ×2 (09:33→18:06)
[2016-06-02] MEDS: Clotrimazole 1% Cream 15 GM TUBE TOP SCH ×2 (09:34→18:00)
[2016-06-02] MEDS: POLYETHYLENE GLYCOL 3350 17 GM/Dose PACKET PO SCH (14:01)
[2016-06-03] MEDS: Vitamins A & D Oint UD Foilpak TOP SCH (01:43)
[2016-06-03] MEDS: Tramadol 25 mg PO PRN (10:35)
[2016-06-03] MEDS: Clotrimazole 1% Cream 15 GM TUBE TOP SCH ×2 (10:37→18:00)
[2016-06-03] MEDS: Enoxaparin 40 mg Syringe SC SCH (10:37)
[2016-06-03] MEDS: Magnesium Oxide 400 mg Tab UD PO SCH ×2 (10:42→17:12)
--- NOTE | 2016-06-03 16:51 | CP.PCM.PN ---
<Wyatt Nassar - Last Filed: 06/03/16 17:26> Subjective - Date & Time of Evaluation Date of Evaluation: 06/03/16 Time of Evaluation: 16:35 - Subjective Subjective: PGY-1 note for medicine service Pt seen and examined at bedside. No new complaints. Denies fevers, chills, chest pain, sob, nausea or vomiting. Objective - Vital Signs/Intake and Output Vital Signs (last 24 hours): Temp Pulse Resp BP Pulse Ox 97.8 F 78 20 98/59 L 97 06/03/16 16:00 06/03/16 16:00 06/03/16 16:00 06/03/16 16:00 06/03/16 16:00 Intake and Output: 06/03/16 06/03/16 06:59 18:59 Intake Total 300 480 Balance 300 480 - Medications Medications: Current Medications Acetaminophen (Tylenol 325mg Tab) 650 mg PO Q6 [facility] Last Admin: 06/03/16 13:59 Dose: 650 mg Clotrimazole (Lotrimin 1%) 0 gm TOP BID [facility] Last Admin: 06/03/16 10:37 Dose: 1 applic Docusate Sodium (Colace) 100 mg PO BID [facility] Last Admin: 06/03/16 10:37 Dose: 100 mg Enoxaparin Sodium (Lovenox) 40 mg SC DAILY [facility] Last Admin: 06/03/16 10:37 Dose: 40 mg Famotidine (Pepcid) 20 mg PO BID [facility] Last Admin: 06/03/16 10:37 Dose: 20 mg Magnesium Oxide (Mag-Ox) 400 mg PO BID [facility] Last Admin: 06/03/16 10:42 Dose: 400 mg Polyethylene Glycol (Miralax) 17 gm PO Q2D [facility] Last Admin: 06/02/16 14:01 Dose: Not Given Sodium Chloride (Sodium Chloride Tab) 1 gm PO DAILY@1330 [facility] Last Admin: 06/03/16 14:01 Dose: 1 gm Tamsulosin HCl (Flomax) 0.8 mg PO DAILY [facility] Last Admin: 06/03/16 10:36 Dose: 0.8 mg Tramadol HCl (Ultram) 25 mg PO TID PRN PRN Reason: Pain, moderate (4-7) Last Admin: 06/03/16 10:35 Dose: 25 mg - Labs Labs: 05/30/16 07:02 05/30/16 07:02 - Constitutional Appears: Non-toxic, No Acute Distress - Head Exam Head Exam: ATRAUMATIC, NORMOCEPHALIC - Eye Exam Eye Exam: Normal appearance Pupil Exam: PERRL - Respiratory Exam Respiratory Exam: Clear to Ausculation Bilateral, NORMAL BREATHING PATTERN - Cardiovascular Exam Cardiovascular Exam: +S1, +S2 - GI/Abdominal Exam GI & Abdominal Exam: Soft, Normal Bowel Sounds - Extremities Exam Additional comments: Right leg in brace - Neurological Exam Neurological Exam: Alert, Awake - Skin Skin Exam: Dry, Warm Assessment and Plan - Assessment and Plan (Free Text) Assessment: Leg swelling - 05/23: will order left leg US to r/o DVT - negative for DVT or any other abnormalities - 05/20: venous doppler ordered - read as: No evidence of deep or superficial vein thrombosis of the right lower extremity with excellent venous flow. Normal valve function noted of the right side. Normal venous flow noted in the left common femoral vein. BPH;chronic - 05/30: Dr Balderrama saw pt, possible procedure, says maybe early in the week of - 05/18: Pyridium 200 mg PO TIDPC- discontinued - Flomax 0.8 mg PO daily - Finasteride 5 mg PO daily - Urology Dr. Hughes on board - will f/u with recs concerning inpatient TURP Fracture of tibia, proximal, right, closed; pain management and physical therapy - 05/31 - per ortho - Advance to 10% TTWB RLE, plan repeat xrays in 2 weeks and reassess, continue knee immobilizer, PT order updated - 05/29 - Cont to work with PT. Able to ambulate with walker, NWB on right LE. -05/27- cont current mgmt - 05/24 - continue with current management. - 05/20- ordered venous doppler right leg for swelling - results as above - 05/18- repeat xray with no significant change - 05/11- per ortho team: patient to remain non-weight bearing to right lower extremity - 05/09- right knee xrays ordered by orthopedics team- No acute fracture. Status post ORIF old patellar fracture No significant interval change compared to the prior examination Will follow up recommendations from orthopedics team - 05/05:Ortho Dr. Pino and Jayce NICOLE following- no orthopedic intervention indicated at this time, strict NWB, PT/OT - Impaction/insufficiency fracture, lateral aspect proximal tibia, non operative , treated with strict NWB and immobilization - At least 6 weeks old by imaging - Tylenol 650 mg PO Q6 PRN mild pain - Tramadol 25mg TID pRN - Daily physical therapy - Nonweight bearing on R leg - L knee x-ray: severe osteopenia. Sclerotic changes about the posterior proximal tibia may relate to a sclerotic healing response of a prior stress fracture here. no tibial plateau depressed fracture. The sclerosis is perceived on the prior 04/21 study; no interval pathology appreciated between 2 exams. If symptoms worsen consider MRI. 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 sclerosi about right acetabulum - daily physical therapy - PT 05/05: decline in transfers due to limitation from right hip and knee pain. patient still able to tolerate hallway ambulation, no episode of orthostatic hypotension post gait. recommending room/hallway ambulation w/ nursing for AM/ PM care or toileting. - PT 05/09: decline in function limited by persisting right groin/ hip and knee pain. patient still recommended for daily out of bed during am/pm care. cleared for ambulation in the room with standard walker non weight bearing right lower extremity - PT 05/10: mild decline in transfers due to pain in right knee and hip. NWB to RLE. Patient with episode of hypotension post ambulation- no syncope. - 05/16: discussed with PT. Patient function declining due to immobility. Patient needs to go from bed to chair. Patient should also be ambulating to the bathroom with assist. Patient becomes hypotensive with walking. - 05/17: patient assisted to chair. discussed with nursing the need for ambulation to and from bathroom with assistance as well as transfer from bed to chair Abdominal discomfort likely 2/2 Constipation - Lactulose, reports BMs - Monitor Facial rash - resembles seborrheic dermatitis, patient encouraged to moisturize - ESR 32 - CRP 1.51 - RA- negative - A&D ointment to face Orthostasis - 05/21: IV fluids- NS at 100cc/h - stopped - 05/16: Per PT, patient becomes hypotensive with exertion. adding sodium chloride tablets 1g daily - 05/05: -Supine BP: 114/71, HR 75 -Sitting BP: 113/71, HR 90 -Standing BP: 116/72, HR 94 Anemia; will monitor - 05/30: Hgb trending up - 05/26: may have a component of Fe deficiency, will replete - 05/25: Hgb still low, will get labs with Iron panel tomorrow - 05/22: Hgb 8.7, repeated and was 9.5 - 05/15: hgb 11.0 - chronic - monitor with weekly labs Abdominal Pain; resolved - 05/24: less abd pain, reports BMs - 05/22: continues to complain of straining, will give one time miralax dose - 05/21: restart colace 100mg BID as patient straining to have BM - patient with multiple soft stools- will stop miralax for now - patient has been complaining of abdominal pain since admission - Colace 100mg PO BID - Dulcolax every 3 days - Inguinal hernia with unobstructed bowel loop involvement; protruded 04/18 due to straining on toilet. - 05/03/16 B/L inguinal hernias reduced today without incidence - Abdominal US 04/01: Gallstones, no acute cholecystitis, no hydronephrosis. trace ascites (see full report) - Abd/pelv CT 03/11: mod b/l pleural effusions and assoc consolidations; tiny probably gallstones within the gallbladder; small to moderate hiatal hernia; R inguinal hernia which contains small loops of bowel, likely small bowel- no evidence of obstruction as oral contrast is noted within R colon. No definite free air, however evaluation for pneumoperitoneum is suboptimal. Moderate to severe constipation with questionable impaction. Prostate gland 4.1cm x 4.6cm. Urinary bladder appears unremarkable. Small amount of fluid within a right inguinal hernia. Sclerosis of right iliac wing. Extensive anasarca. Aneursmal dilatation of ascending thoracic aorta; Currently 4.5 cm. Patient needs repeat Ct imaging every 6 months - last CT scan in 03/2016, should be monitored in September, Onychomycosis;chronic and improving - patient had aseptic debridement of toenails x 10 - clotrimazole cream to be applied to feet b/l BID - podiatry following Sacral decubitus- resolved - 05/17- sacrum examined- no sacral ulcers noted - 05/16: patient needs to go from bed to chair to prevent ulcers from re-forming - 04/19: exam revealed a previously healed decubitus ulcer of right buttocks. Sacral exam was clear. - Wound care following - recommending medihoney covered with bordered telfa dressing to right lower buttocks stage 2 pressure ulcer daily. - Pt is OOB to chair with help from PT daily - Order placed for turning patient Q2H History of Urinary Tract Infection - 05/20: ordered repeat urine culture for urinary frequency - no growth (Final) - 05/17: urine culture negative - 05/16: + nitrates, 4 RBC, occasional bacteria. - urine culture 05/03- no growth - UA 05/05: +nitrates, occasional bacteria Diarrhea- resolved - 05/22 - resolved - culture negative - 05/18: c. diff negative, no salmonella - 05/17: ova and parasites negative Hypokalemia - Monitor - Replete as needed Syncopal Episode x1- resolved - 05/04/16 CTA- negative for PE (underlying atelectasis new findings compared to the prior study 03/20/2016.) Prophylactic Measure - Labs weekly - Lovenox 40mg SC daily - Pepcid 20mg PO BID - A and D ointment TOP Q*H - Patient is homeless. Used to stay with friend, but no longer welcome there. Goal is to walk with cane so he can go to a nursing home (will not qualify with a walker) - patient will need to work with PT frequently - right calf with dark skin lesion underneath knee immobilizer- wound care on board- applying medihoney DISPO - Reaching out to family in [facility] - no response from family per case management - Social Work is following up <Lionel Santo - Last Filed: 06/20/16 22:45> Objective - Vital Signs/Intake and Output Vital Signs (last 24 hours): Temp Pulse Resp BP Pulse Ox 97.1 F L 74 18 117/69 98 06/20/16 15:00 06/20/16 15:00 06/20/16 15:00 06/20/16 15:00 06/20/16 15:00 Intake and Output: 06/20/16 06/21/16 18:59 06:59 Intake Total 300 Output Total 6 Balance 294 - Medications Medications: Current Medications Acetaminophen (Tylenol 325mg Tab) 650 mg PO Q6 PRN PRN Reason: Pain, Mild (1-3) Last Admin: 06/19/16 21:49 Dose: 650 mg Carbamide Peroxide (Debrox Ear Drops) 1 ml AU BID [facility] Last Admin: 06/20/16 17:17 Dose: 5 drop Clotrimazole (Lotrimin 1%) 0 gm TOP BID [facility] Last Admin: 06/20/16 17:18 Dose: 1 applic Docusate Sodium (Colace) 100 mg PO BID [facility] Last Admin: 06/20/16 17:16 Dose: 100 mg Famotidine (Pepcid) 20 mg PO BID [facility] Last Admin: 06/20/16 17:16 Dose: 20 mg Heparin Sodium (Porcine) (Heparin) 5,000 units SC Q8 [facility] Last Admin: 06/20/16 21:43 Dose: 5,000 units Magnesium Oxide (Mag-Ox) 400 mg PO BID [facility] Last Admin: 06/20/16 17:17 Dose: 400 mg Polyethylene Glycol (Miralax) 17 gm PO Q2D [facility] Last Admin: 06/19/16 11:36 Dose: Not Given Silver Sulfadiazine (Silvadene 1% 20 Gm) 0 ea TOP Q12H [facility] Last Admin: 06/20/16 21:46 Dose: Not Given Sodium Chloride (Sodium Chloride Tab) 1 gm PO DAILY@1330 [facility] Last Admin: 06/20/16 13:59 Dose: 1 gm Tamsulosin HCl (Flomax) 0.8 mg PO DAILY [facility] Last Admin: 06/20/16 11:02 Dose: 0.8 mg Tramadol HCl (Ultram) 25 mg PO TID PRN PRN Reason: Pain, moderate (4-7) Last Admin: 06/20/16 21:52 Dose: 25 mg - Labs Labs: 06/19/16 06:49 06/19/16 06:49 Attending/Attestation - Attestation I have personally seen and examined this patient.: Yes I have fully participated in the care of the patient.: Yes I have reviewed all pertinent clinical information, including history, physical exam and plan: Yes
[2016-06-04] MEDS: Enoxaparin 40 mg Syringe SC SCH (09:31)
[2016-06-04] MEDS: Magnesium Oxide 400 mg Tab UD PO SCH ×2 (09:32→21:39)
[2016-06-04] MEDS: Clotrimazole 1% Cream 15 GM TUBE TOP SCH ×2 (09:36→18:00)
[2016-06-04] MEDS: POLYETHYLENE GLYCOL 3350 17 GM/Dose PACKET PO SCH (14:25)
--- NOTE | 2016-06-04 14:53 | CP.PCM.PN ---
<Wyatt Nassar - Last Filed: 06/04/16 14:50> Subjective - Date & Time of Evaluation Date of Evaluation: 06/04/16 Time of Evaluation: 14:50 - Subjective Subjective: PGY-1 note for medicine service Pt seen and examined at bedside. No new complaints. Denies fevers, chills, chest pain, sob, nausea or vomiting. Objective - Vital Signs/Intake and Output Vital Signs (last 24 hours): Temp Pulse Resp BP Pulse Ox 97.5 F L 107 H 20 98/58 L 97 06/04/16 08:00 06/04/16 08:00 06/04/16 08:00 06/04/16 08:00 06/04/16 08:00 Intake and Output: 06/04/16 06/04/16 06:59 18:59 Intake Total 300 300 Output Total 800 400 Balance -500 -100 - Medications Medications: Current Medications Acetaminophen (Tylenol 325mg Tab) 650 mg PO Q6 [facility] Last Admin: 06/04/16 06:31 Dose: 650 mg Carbamide Peroxide (Debrox Ear Drops) 1 ml AU BID [facility] Last Admin: 06/04/16 11:57 Dose: 1 ml Clotrimazole (Lotrimin 1%) 0 gm TOP BID [facility] Last Admin: 06/04/16 09:36 Dose: 1 applic Docusate Sodium (Colace) 100 mg PO BID [facility] Last Admin: 06/04/16 09:31 Dose: 100 mg Enoxaparin Sodium (Lovenox) 40 mg SC DAILY [facility] Last Admin: 06/04/16 09:31 Dose: 40 mg Famotidine (Pepcid) 20 mg PO BID [facility] Last Admin: 06/04/16 09:31 Dose: 20 mg Magnesium Oxide (Mag-Ox) 400 mg PO BID [facility] Last Admin: 06/04/16 09:32 Dose: 400 mg Polyethylene Glycol (Miralax) 17 gm PO Q2D [facility] Last Admin: 06/04/16 14:25 Dose: Not Given Sodium Chloride (Sodium Chloride Tab) 1 gm PO DAILY@1330 [facility] Last Admin: 06/03/16 14:01 Dose: 1 gm Tamsulosin HCl (Flomax) 0.8 mg PO DAILY [facility] Last Admin: 06/04/16 09:31 Dose: 0.8 mg Tramadol HCl (Ultram) 25 mg PO TID PRN PRN Reason: Pain, moderate (4-7) Last Admin: 06/03/16 10:35 Dose: 25 mg - Labs Labs: 05/30/16 07:02 05/30/16 07:02 - Constitutional Appears: No Acute Distress, Chronically Ill - Head Exam Head Exam: ATRAUMATIC, NORMOCEPHALIC - ENT Exam ENT Exam: Mucous Membranes Moist - Cardiovascular Exam Cardiovascular Exam: +S1, +S2 - GI/Abdominal Exam GI & Abdominal Exam: Soft, Normal Bowel Sounds - Extremities Exam Additional comments: right leg in brace - Neurological Exam Neurological Exam: Alert, Awake - Skin Skin Exam: Dry, Warm Assessment and Plan - Assessment and Plan (Free Text) Assessment: DISPO - Reaching out to family in [facility] - no response from family per case management - Social Work is following up - Cant be discharged to jail due to functional status - Continues to work with PT - No new changes to pt status or plan Leg swelling - 05/23: will order left leg US to r/o DVT - negative for DVT or any other abnormalities - 05/20: venous doppler ordered - read as: No evidence of deep or superficial vein thrombosis of the right lower extremity with excellent venous flow. Normal valve function noted of the right side. Normal venous flow noted in the left common femoral vein. BPH;chronic - 05/30: Dr Balderrama saw pt, possible procedure, says maybe early in the week of - 05/18: Pyridium 200 mg PO TIDPC- discontinued - Flomax 0.8 mg PO daily - Finasteride 5 mg PO daily - Urology Dr. Hughes on board - will f/u with recs concerning inpatient TURP Fracture of tibia, proximal, right, closed; pain management and physical therapy - 05/31 - per ortho - Advance to 10% TTWB RLE, plan repeat xrays in 2 weeks and reassess, continue knee immobilizer, PT order updated - 05/29 - Cont to work with PT. Able to ambulate with walker, NWB on right LE. -05/27- cont current mgmt - 05/24 - continue with current management. - 05/20- ordered venous doppler right leg for swelling - results as above - 05/18- repeat xray with no significant change - 05/11- per ortho team: patient to remain non-weight bearing to right lower extremity - 05/09- right knee xrays ordered by orthopedics team- No acute fracture. Status post ORIF old patellar fracture No significant interval change compared to the prior examination Will follow up recommendations from orthopedics team - 05/05:Ortho Dr. Pino and Jayce West PA following- no orthopedic intervention indicated at this time, strict NWB, PT/OT - Impaction/insufficiency fracture, lateral aspect proximal tibia, non operative , treated with strict NWB and immobilization - At least 6 weeks old by imaging - Tylenol 650 mg PO Q6 PRN mild pain - Tramadol 25mg TID pRN - Daily physical therapy - Nonweight bearing on R leg - L knee x-ray: severe osteopenia. Sclerotic changes about the posterior proximal tibia may relate to a sclerotic healing response of a prior stress fracture here. no tibial plateau depressed fracture. The sclerosis is perceived on the prior 04/21 study; no interval pathology appreciated between 2 exams. If symptoms worsen consider MRI. 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 sclerosi about right acetabulum - daily physical therapy - PT 05/05: decline in transfers due to limitation from right hip and knee pain. patient still able to tolerate hallway ambulation, no episode of orthostatic hypotension post gait. recommending room/hallway ambulation w/ nursing for AM/ PM care or toileting. - PT 05/09: decline in function limited by persisting right groin/ hip and knee pain. patient still recommended for daily out of bed during am/pm care. cleared for ambulation in the room with standard walker non weight bearing right lower extremity - PT 05/10: mild decline in transfers due to pain in right knee and hip. NWB to RLE. Patient with episode of hypotension post ambulation- no syncope. - 05/16: discussed with PT. Patient function declining due to immobility. Patient needs to go from bed to chair. Patient should also be ambulating to the bathroom with assist. Patient becomes hypotensive with walking. - 05/17: patient assisted to chair. discussed with nursing the need for ambulation to and from bathroom with assistance as well as transfer from bed to chair Abdominal discomfort likely 2/2 Constipation - Lactulose, reports BMs - Monitor Facial rash - resembles seborrheic dermatitis, patient encouraged to moisturize - ESR 32 - CRP 1.51 - RA- negative - A&D ointment to face Orthostasis - 05/21: IV fluids- NS at 100cc/h - stopped - 05/16: Per PT, patient becomes hypotensive with exertion. adding sodium chloride tablets 1g daily - 05/05: -Supine BP: 114/71, HR 75 -Sitting BP: 113/71, HR 90 -Standing BP: 116/72, HR 94 Anemia; will monitor - 05/30: Hgb trending up - 05/26: may have a component of Fe deficiency, will replete - 05/25: Hgb still low, will get labs with Iron panel tomorrow - 05/22: Hgb 8.7, repeated and was 9.5 - 05/15: hgb 11.0 - chronic - monitor with weekly labs Abdominal Pain; resolved - 05/24: less abd pain, reports BMs - 05/22: continues to complain of straining, will give one time miralax dose - 05/21: restart colace 100mg BID as patient straining to have BM - patient with multiple soft stools- will stop miralax for now - patient has been complaining of abdominal pain since admission - Colace 100mg PO BID - Dulcolax every 3 days - Inguinal hernia with unobstructed bowel loop involvement; protruded 04/18 due to straining on toilet. - 05/03/16 B/L inguinal hernias reduced today without incidence - Abdominal US 04/01: Gallstones, no acute cholecystitis, no hydronephrosis. trace ascites (see full report) - Abd/pelv CT 03/11: mod b/l pleural effusions and assoc consolidations; tiny probably gallstones within the gallbladder; small to moderate hiatal hernia; R inguinal hernia which contains small loops of bowel, likely small bowel- no evidence of obstruction as oral contrast is noted within R colon. No definite free air, however evaluation for pneumoperitoneum is suboptimal. Moderate to severe constipation with questionable impaction. Prostate gland 4.1cm x 4.6cm. Urinary bladder appears unremarkable. Small amount of fluid within a right inguinal hernia. Sclerosis of right iliac wing. Extensive anasarca. Aneursmal dilatation of ascending thoracic aorta; Currently 4.5 cm. Patient needs repeat Ct imaging every 6 months - last CT scan in 03/2016, should be monitored in September, Onychomycosis;chronic and improving - patient had aseptic debridement of toenails x 10 - clotrimazole cream to be applied to feet b/l BID - podiatry following Sacral decubitus- resolved - 05/17- sacrum examined- no sacral ulcers noted - 05/16: patient needs to go from bed to chair to prevent ulcers from re-forming - 04/19: exam revealed a previously healed decubitus ulcer of right buttocks. Sacral exam was clear. - Wound care following - recommending medihoney covered with bordered telfa dressing to right lower buttocks stage 2 pressure ulcer daily. - Pt is OOB to chair with help from PT daily - Order placed for turning patient Q2H History of Urinary Tract Infection - 05/20: ordered repeat urine culture for urinary frequency - no growth (Final) - 05/17: urine culture negative - 05/16: + nitrates, 4 RBC, occasional bacteria. - urine culture 05/03- no growth - UA 05/05: +nitrates, occasional bacteria Diarrhea- resolved - 05/22 - resolved - culture negative - 05/18: c. diff negative, no salmonella - 05/17: ova and parasites negative Hypokalemia - Monitor - Replete as needed Syncopal Episode x1- resolved - 05/04/16 CTA- negative for PE (underlying atelectasis new findings compared to the prior study 03/20/2016.) Prophylactic Measure - Labs weekly - Lovenox 40mg SC daily - Pepcid 20mg PO BID - A and D ointment TOP Q*H - Patient is homeless. Used to stay with friend, but no longer welcome there. Goal is to walk with cane so he can go to a jail (will not qualify with a walker) - patient will need to work with PT frequently - right calf with dark skin lesion underneath knee immobilizer- wound care on board- applying medihoney <Mughni,Lionel - Last Filed: 06/04/16 23:23> Objective - Vital Signs/Intake and Output Vital Signs (last 24 hours): Temp Pulse Resp BP Pulse Ox 97.2 F L 80 20 111/65 99 06/04/16 16:00 06/04/16 16:00 06/04/16 16:00 06/04/16 16:00 06/04/16 16:00 Intake and Output: 06/04/16 06/05/16 18:59 06:59 Intake Total 300 300 Output Total 400 400 Balance -100 -100 - Medications Medications: Current Medications Acetaminophen (Tylenol 325mg Tab) 650 mg PO Q6 [facility] Last Admin: 06/04/16 21:41 Dose: 650 mg Carbamide Peroxide (Debrox Ear Drops) 1 ml AU BID [facility] Last Admin: 06/04/16 21:43 Dose: 1 ml Clotrimazole (Lotrimin 1%) 0 gm TOP BID [facility] Last Admin: 06/04/16 18:00 Dose: 1 applic Docusate Sodium (Colace) 100 mg PO BID [facility] Last Admin: 06/04/16 18:00 Dose: Not Given Enoxaparin Sodium (Lovenox) 40 mg SC DAILY [facility] Last Admin: 06/04/16 09:31 Dose: 40 mg Famotidine (Pepcid) 20 mg PO BID [facility] Last Admin: 06/04/16 21:38 Dose: 20 mg Magnesium Oxide (Mag-Ox) 400 mg PO BID [facility] Last Admin: 06/04/16 21:39 Dose: 400 mg Polyethylene Glycol (Miralax) 17 gm PO Q2D [facility] Last Admin: 06/04/16 14:25 Dose: Not Given Sodium Chloride (Sodium Chloride Tab) 1 gm PO DAILY@1330 [facility] Last Admin: 06/04/16 14:00 Dose: 1 gm Tamsulosin HCl (Flomax) 0.8 mg PO DAILY [facility] Last Admin: 06/04/16 09:31 Dose: 0.8 mg Tramadol HCl (Ultram) 25 mg PO TID PRN PRN Reason: Pain, moderate (4-7) Last Admin: 06/03/16 10:35 Dose: 25 mg - Labs Labs: 05/30/16 07:02 05/30/16 07:02 Attending/Attestation - Attestation I have personally seen and examined this patient.: Yes I have fully participated in the care of the patient.: Yes I have reviewed all pertinent clinical information, including history, physical exam and plan: Yes Notes (Text): Patient admitted with physical deconditioning in the setting of acetabular protrusion involving R hip prosthesis, also found to have R proximal tibial fracture; Patient reports ambulating with walker without assistance from nursing staff ( they only supervise); per ortho, patient can again start toe touch weight bearing on R; BPH symptoms, for possible TURP this week with urology; On tramadol prn for pain; Dispo: Homeless male without insurance; still unsafe for d/c to jail. 06/04/16 23:18
[2016-06-05 07:34] LABS: BASO % 0.7 % (0.0-2.0); EOS # 0.2 K/uL (0.0-0.7); EOS % 3.5 % (0.0-4.0); LYMPH # 1.6 K/uL (1.0-4.3); LYMPH % 36.1 % (20.0-40.0); MEAN CELL VOLUME 100.8 fL (80.0-94.0); MEAN CORPUSCULAR HEMOGLOBIN 33.3 pg (27.0-31.0); MEAN PLATELET VOLUME 7.6 fL (7.2-11.7); MONO # 0.4 K/uL (0.0-0.8); MONO % 9.7 % (0.0-10.0); NEUT # 2.2 K/uL (1.8-7.0); NRBC % 0.1 % (0.0-2.0); RBC 3.01 Mil/uL (4.40-5.90); RED CELL DISTRIBUTION WIDTH 13.4 % (11.5-14.5); WHITE BLOOD COUNT 4.4 K/uL (4.8-10.8)
[2016-06-05 07:38] LABS: ALBUMIN 3.5 g/dL (3.5-5.0)
[2016-06-05 07:40] LABS: AST/SGOT 18 U/L (17-59); GFR AFRICAN-AMERICAN > 60; GFR NON-AFRICAN AMERICAN > 60
[2016-06-05 07:41] LABS: ALT/SGPT 7 U/L (21-72); BLOOD UREA NITROGEN 16 mg/dL (9-20); CALCIUM 8.7 mg/dl (8.6-10.4)
[2016-06-05 07:42] LABS: MAGNESIUM 1.7 mg/dL (1.6-2.3)
--- NOTE | 2016-06-05 07:58 | CP.PCM.PN ---
<Kimberly Ken - Last Filed: 06/05/16 14:57> Subjective - Date & Time of Evaluation Date of Evaluation: 06/05/16 Time of Evaluation: 07:05 - Subjective Subjective: PGY-[address] Wiggins: Patient seen and examined at bedside this morning. No new complaints. He admits to the same chronic pain on his left knee/leg. Denies headache, changes in vision, fevers, chills, chest pain, sob, abd pain, nausea or vomiting, diarrhea/ constipation. He is working with PT to increase physical activity. He is partial weight bearing and admits to using a walker to ambulate. Objective - Vital Signs/Intake and Output Vital Signs (last 24 hours): Temp Pulse Resp BP Pulse Ox 98.1 F 76 19 103/64 98 06/04/16 23:43 06/05/16 01:07 06/04/16 23:43 06/04/16 23:43 06/04/16 23:43 Intake and Output: 06/05/16 06/05/16 06:59 18:59 Intake Total 550 Output Total 400 Balance 150 - Medications Medications: Current Medications Acetaminophen (Tylenol 325mg Tab) 650 mg PO Q6 [facility] Last Admin: 06/05/16 07:01 Dose: 650 mg Carbamide Peroxide (Debrox Ear Drops) 1 ml AU BID [facility] Last Admin: 06/04/16 21:43 Dose: 1 ml Clotrimazole (Lotrimin 1%) 0 gm TOP BID [facility] Last Admin: 06/04/16 18:00 Dose: 1 applic Docusate Sodium (Colace) 100 mg PO BID [facility] Last Admin: 06/04/16 18:00 Dose: Not Given Enoxaparin Sodium (Lovenox) 40 mg SC DAILY [facility] Last Admin: 06/04/16 09:31 Dose: 40 mg Famotidine (Pepcid) 20 mg PO BID [facility] Last Admin: 06/04/16 21:38 Dose: 20 mg Magnesium Oxide (Mag-Ox) 400 mg PO BID [facility] Last Admin: 06/04/16 21:39 Dose: 400 mg Polyethylene Glycol (Miralax) 17 gm PO Q2D [facility] Last Admin: 06/04/16 14:25 Dose: Not Given Sodium Chloride (Sodium Chloride Tab) 1 gm PO DAILY@1330 [facility] Last Admin: 06/04/16 14:00 Dose: 1 gm Tamsulosin HCl (Flomax) 0.8 mg PO DAILY [facility] Last Admin: 06/04/16 09:31 Dose: 0.8 mg Tramadol HCl (Ultram) 25 mg PO TID PRN PRN Reason: Pain, moderate (4-7) Last Admin: 06/03/16 10:35 Dose: 25 mg - Labs Labs: 06/05/16 07:14 06/05/16 07:14 - Constitutional Appears: Non-toxic, No Acute Distress, Cachectic, Chronically Ill - Head Exam Head Exam: ATRAUMATIC, NORMAL INSPECTION - Eye Exam Eye Exam: EOMI, Normal appearance, PERRL Pupil Exam: NORMAL ACCOMODATION - Respiratory Exam Respiratory Exam: Clear to Ausculation Bilateral, NORMAL BREATHING PATTERN. absent: Accessory Muscle Use, Chest Wall Tenderness, Rales, Rhonchi, Wheezes, Respiratory Distress - Cardiovascular Exam Cardiovascular Exam: REGULAR RHYTHM, +S1, +S2 - GI/Abdominal Exam GI & Abdominal Exam: Soft, Normal Bowel Sounds. absent: Distended, Firm, Guarding, Tenderness - Extremities Exam Extremities Exam: absent: Calf Tenderness, Pedal Edema Additional comments: right leg in brace - Back Exam Back Exam: NORMAL INSPECTION. absent: CVA tenderness (L), CVA tenderness (R), paraspinal tenderness - Neurological Exam Neurological Exam: Alert, Awake, Oriented x3 - Psychiatric Exam Psychiatric exam: Normal Affect, Normal Mood - Skin Skin Exam: Dry, Intact, Normal Color, Warm Assessment and Plan - Assessment and Plan (Free Text) Assessment: BPH;chronic - 05/30: Dr Balderrama saw pt, possible procedure, says maybe early in the week of - Flomax 0.8 mg PO daily - Finasteride 5 mg PO daily - Urology Dr. Hughes on board - will f/u with recs concerning inpatient TURP - 05/18: Pyridium 200 mg PO TIDPC- discontinued Leg swelling - 05/23: will order left leg US to r/o DVT - negative for DVT or any other abnormalities - 05/20: venous doppler ordered - read as: No evidence of deep or superficial vein thrombosis of the right lower extremity with excellent venous flow. Normal valve function noted of the right side. Normal venous flow noted in the left common femoral vein. Fracture of tibia, proximal, right, closed; pain management and physical therapy - 05/31 - per ortho - Advance to 10% TTWB RLE, plan repeat xrays in 2 weeks and reassess, continue knee immobilizer, PT order updated - 05/29 - Cont to work with PT. Able to ambulate with walker, NWB on right LE. -05/27- cont current mgmt - 05/24 - continue with current management. - 05/20- ordered venous doppler right leg for swelling - results as above - 05/18- repeat xray with no significant change - 05/11- per ortho team: patient to remain non-weight bearing to right lower extremity - 05/09- right knee xrays ordered by orthopedics team- No acute fracture. Status post ORIF old patellar fracture No significant interval change compared to the prior examination Will follow up recommendations from orthopedics team - 05/05:Ortho Dr. Pino and Jayce West PA following- no orthopedic intervention indicated at this time, strict NWB, PT/OT - Impaction/insufficiency fracture, lateral aspect proximal tibia, non operative , treated with strict NWB and immobilization - At least 6 weeks old by imaging - Tylenol 650 mg PO Q6 PRN mild pain - Tramadol 25mg TID pRN - Daily physical therapy - Nonweight bearing on R leg - L knee x-ray: severe osteopenia. Sclerotic changes about the posterior proximal tibia may relate to a sclerotic healing response of a prior stress fracture here. no tibial plateau depressed fracture. The sclerosis is perceived on the prior 04/21 study; no interval pathology appreciated between 2 exams. If symptoms worsen consider MRI. 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 sclerosi about right acetabulum - daily physical therapy - PT 05/05: decline in transfers due to limitation from right hip and knee pain. patient still able to tolerate hallway ambulation, no episode of orthostatic hypotension post gait. recommending room/hallway ambulation w/ nursing for AM/ PM care or toileting. - PT 05/09: decline in function limited by persisting right groin/ hip and knee pain. patient still recommended for daily out of bed during am/pm care. cleared for ambulation in the room with standard walker non weight bearing right lower extremity - PT 05/10: mild decline in transfers due to pain in right knee and hip. NWB to RLE. Patient with episode of hypotension post ambulation- no syncope. - 05/16: discussed with PT. Patient function declining due to immobility. Patient needs to go from bed to chair. Patient should also be ambulating to the bathroom with assist. Patient becomes hypotensive with walking. - 05/17: patient assisted to chair. discussed with nursing the need for ambulation to and from bathroom with assistance as well as transfer from bed to chair Abdominal discomfort likely 2 Constipation - Lactulose, reports BMs - Monitor Facial rash - resembles seborrheic dermatitis, patient encouraged to moisturize - ESR 32 - CRP 1.51 - RA- negative - A&D ointment to face Orthostasis - 05/21: IV fluids- NS at 100cc/h - stopped - 05/16: Per PT, patient becomes hypotensive with exertion. adding sodium chloride tablets 1g daily - 05/05: -Supine BP: 114/71, HR 75 -Sitting BP: 113/71, HR 90 -Standing BP: 116/72, HR 94 Anemia; will monitor - 05/30: Hgb trending up - 05/26: may have a component of Fe deficiency, will replete - 05/25: Hgb still low, will get labs with Iron panel tomorrow - 05/22: Hgb 8.7, repeated and was 9.5 - 05/15: hgb 11.0 - chronic - monitor with weekly labs Abdominal Pain; resolved - 05/24: less abd pain, reports BMs - 05/22: continues to complain of straining, will give one time miralax dose - 05/21: restart colace 100mg BID as patient straining to have BM - patient with multiple soft stools- will stop miralax for now - patient has been complaining of abdominal pain since admission - Colace 100mg PO BID - Dulcolax every 3 days - Inguinal hernia with unobstructed bowel loop involvement; protruded 04/18 due to straining on toilet. - 05/03/16 B/L inguinal hernias reduced today without incidence - Abdominal US 04/01: Gallstones, no acute cholecystitis, no hydronephrosis. trace ascites (see full report) - Abd/pelv CT 03/11: mod b/l pleural effusions and assoc consolidations; tiny probably gallstones within the gallbladder; small to moderate hiatal hernia; R inguinal hernia which contains small loops of bowel, likely small bowel- no evidence of obstruction as oral contrast is noted within R colon. No definite free air, however evaluation for pneumoperitoneum is suboptimal. Moderate to severe constipation with questionable impaction. Prostate gland 4.1cm x 4.6cm. Urinary bladder appears unremarkable. Small amount of fluid within a right inguinal hernia. Sclerosis of right iliac wing. Extensive anasarca. Aneursmal dilatation of ascending thoracic aorta; Currently 4.5 cm. Patient needs repeat Ct imaging every 6 months - last CT scan in 03/2016, should be monitored in September, Onychomycosis;chronic and improving - patient had aseptic debridement of toenails x 10 - clotrimazole cream to be applied to feet b/l BID - podiatry following Sacral decubitus- resolved - 05/17- sacrum examined- no sacral ulcers noted - 05/16: patient needs to go from bed to chair to prevent ulcers from re-forming - 04/19: exam revealed a previously healed decubitus ulcer of right buttocks. Sacral exam was clear. - Wound care following - recommending medihoney covered with bordered telfa dressing to right lower buttocks stage 2 pressure ulcer daily. - Pt is OOB to chair with help from PT daily - Order placed for turning patient Q2H History of Urinary Tract Infection - 05/20: ordered repeat urine culture for urinary frequency - no growth (Final) - 05/17: urine culture negative - 05/16: + nitrates, 4 RBC, occasional bacteria. - urine culture 05/03- no growth - UA 05/05: +nitrates, occasional bacteria Diarrhea- resolved - 05/22 - resolved - culture negative - 05/18: c. diff negative, no salmonella - 05/17: ova and parasites negative Hypokalemia - Monitor - Replete as needed Syncopal Episode x1- resolved - 05/04/16 CTA- negative for PE (underlying atelectasis new findings compared to the prior study 03/20/2016.) Prophylactic Measure - Labs weekly - Lovenox 40mg SC daily - Pepcid 20mg PO BID - A and D ointment TOP Q*H - Patient is homeless. Used to stay with friend, but no longer welcome there. Goal is to walk with cane so he can go to a [facility] (will not qualify with a walker) - patient will need to work with PT frequently - right calf with dark skin lesion underneath knee immobilizer- wound care on board- applying [employer] DISPO - Reaching out to family in [facility] - no response from family per case management - Social Work is following up - Cant be discharged to [facility] due to functional status - Continues to work with PT - No new changes to pt status or plan <Jose Wiggins - Last Filed: 06/05/16 17:32> Objective - Vital Signs/Intake and Output Vital Signs (last 24 hours): Temp Pulse Resp BP Pulse Ox 98.1 F 67 20 111/69 98 06/05/16 16:00 06/05/16 16:25 06/05/16 16:00 06/05/16 16:00 06/05/16 16:00 Intake and Output: 06/05/16 06/05/16 06:59 18:59 Intake Total 550 250 Output Total 400 Balance 150 250 - Medications Medications: Current Medications Acetaminophen (Tylenol 325mg Tab) 650 mg PO Q6 [facility] Last Admin: 06/05/16 12:40 Dose: 650 mg Carbamide Peroxide (Debrox Ear Drops) 1 ml AU BID [facility] Last Admin: 06/05/16 09:20 Dose: 1 ml Clotrimazole (Lotrimin 1%) 0 gm TOP BID [facility] Last Admin: 06/05/16 09:20 Dose: 1 applic Docusate Sodium (Colace) 100 mg PO BID [facility] Last Admin: 06/05/16 09:19 Dose: 100 mg Enoxaparin Sodium (Lovenox) 40 mg SC DAILY [facility] Last Admin: 06/05/16 09:20 Dose: 40 mg Famotidine (Pepcid) 20 mg PO BID [facility] Last Admin: 06/05/16 09:18 Dose: 20 mg Magnesium Oxide (Mag-Ox) 400 mg PO BID [facility] Last Admin: 06/05/16 09:19 Dose: 400 mg Polyethylene Glycol (Miralax) 17 gm PO Q2D [facility] Last Admin: 06/04/16 14:25 Dose: Not Given Sodium Chloride (Sodium Chloride Tab) 1 gm PO DAILY@1330 [facility] Last Admin: 06/05/16 12:39 Dose: 1 gm Tamsulosin HCl (Flomax) 0.8 mg PO DAILY [facility] Last Admin: 06/05/16 09:19 Dose: 0.8 mg Tramadol HCl (Ultram) 25 mg PO TID PRN PRN Reason: Pain, moderate (4-7) Last Admin: 06/03/16 10:35 Dose: 25 mg - Labs Labs: 06/05/16 07:14 06/05/16 07:14 Attending/Attestation - Attestation I have personally seen and examined this patient.: Yes I have fully participated in the care of the patient.: Yes I have reviewed all pertinent clinical information, including history, physical exam and plan: Yes Notes (Text): 06/05/16 17:31 Patient was seen and examined at bedside Complains of right lower extremity pain Continue physical therapy Plan for TURP as per urology Discussed the plan of care with the resident and I agree with the above assessment and plan
[2016-06-05] MEDS: Magnesium Oxide 400 mg Tab UD PO SCH ×2 (09:19→18:01)
[2016-06-05] MEDS: Clotrimazole 1% Cream 15 GM TUBE TOP SCH ×2 (09:20→18:06)
[2016-06-05] MEDS: Enoxaparin 40 mg Syringe SC SCH (09:20)
[2016-06-06] MEDS: Tramadol 25 mg PO PRN ×2 (04:34→12:59)
--- NOTE | 2016-06-06 07:50 | CP.PCM.PN ---
<Kimberly Ken - Last Filed: 06/06/16 12:06> Subjective - Date & Time of Evaluation Date of Evaluation: 06/06/16 Time of Evaluation: 07:20 - Subjective Subjective: PGY-[address] Wiggins: Patient seen and examined at bedside this morning. No new complaints. He admits to the same chronic pain on his left knee/leg. Denies headache, changes in vision, fevers, chills, chest pain, sob, abd pain, nausea or vomiting, diarrhea/ constipation. He is working with PT to increase physical activity. He is partial weight bearing and admits to using a walker to ambulate. Objective - Vital Signs/Intake and Output Vital Signs (last 24 hours): Temp Pulse Resp BP Pulse Ox 97.8 F 75 20 115/72 97 06/06/16 00:00 06/06/16 00:00 06/06/16 00:00 06/06/16 00:00 06/06/16 00:00 Intake and Output: 06/06/16 06/06/16 06:59 18:59 Intake Total 540 Balance 540 - Medications Medications: Current Medications Acetaminophen (Tylenol 325mg Tab) 650 mg PO Q6 [facility] Last Admin: 06/06/16 05:11 Dose: Not Given Carbamide Peroxide (Debrox Ear Drops) 1 ml AU BID [facility] Last Admin: 06/05/16 18:05 Dose: 1 ml Clotrimazole (Lotrimin 1%) 0 gm TOP BID [facility] Last Admin: 06/05/16 18:06 Dose: 1 applic Docusate Sodium (Colace) 100 mg PO BID [facility] Last Admin: 06/05/16 18:01 Dose: 100 mg Enoxaparin Sodium (Lovenox) 40 mg SC DAILY [facility] Last Admin: 06/05/16 09:20 Dose: 40 mg Famotidine (Pepcid) 20 mg PO BID [facility] Last Admin: 06/05/16 18:01 Dose: 20 mg Magnesium Oxide (Mag-Ox) 400 mg PO BID [facility] Last Admin: 06/05/16 18:01 Dose: 400 mg Polyethylene Glycol (Miralax) 17 gm PO Q2D [facility] Last Admin: 06/04/16 14:25 Dose: Not Given Sodium Chloride (Sodium Chloride Tab) 1 gm PO DAILY@1330 [facility] Last Admin: 06/05/16 12:39 Dose: 1 gm Tamsulosin HCl (Flomax) 0.8 mg PO DAILY [facility] Last Admin: 06/05/16 09:19 Dose: 0.8 mg Tramadol HCl (Ultram) 25 mg PO TID PRN PRN Reason: Pain, moderate (4-7) Last Admin: 06/06/16 04:34 Dose: 25 mg - Labs Labs: 06/05/16 07:14 06/05/16 07:14 - Constitutional Appears: Non-toxic, No Acute Distress, Cachectic, Chronically Ill - Head Exam Head Exam: ATRAUMATIC, NORMAL INSPECTION - Eye Exam Eye Exam: EOMI, PERRL Pupil Exam: NORMAL ACCOMODATION - ENT Exam ENT Exam: Mucous Membranes Moist - Respiratory Exam Respiratory Exam: Clear to Ausculation Bilateral, NORMAL BREATHING PATTERN. absent: Accessory Muscle Use, Chest Wall Tenderness, Respiratory Distress - Cardiovascular Exam Cardiovascular Exam: REGULAR RHYTHM, +S1, +S2 - GI/Abdominal Exam GI & Abdominal Exam: Soft, Normal Bowel Sounds. absent: Distended, Firm, Guarding, Tenderness - Extremities Exam Extremities Exam: Normal Inspection. absent: Calf Tenderness, Pedal Edema Additional comments: R hip tenderness, chronic - Back Exam Back Exam: NORMAL INSPECTION. absent: CVA tenderness (L), CVA tenderness (R), paraspinal tenderness - Neurological Exam Neurological Exam: Alert, Awake, Oriented x3 - Psychiatric Exam Psychiatric exam: Normal Affect, Normal Mood - Skin Skin Exam: Dry, Intact, Normal Color, Warm Assessment and Plan - Assessment and Plan (Free Text) Assessment: BPH;chronic - : possible Cysto later this will - will follow up on his plans - Flomax 0.8 mg PO daily - Finasteride 5 mg PO daily - Urology Dr. Hughes on board - will f/u with recs concerning inpatient TURP - 05/18: Pyridium 200 mg PO TIDPC- discontinued Leg swelling - 05/23: will order left leg US to r/o DVT - negative for DVT or any other abnormalities - 05/20: venous doppler ordered - read as: No evidence of deep or superficial vein thrombosis of the right lower extremity with excellent venous flow. Normal valve function noted of the right side. Normal venous flow noted in the left common femoral vein. Fracture of tibia, proximal, right, closed; pain management and physical therapy - 05/31 - per ortho - Advance to 10% TTWB RLE, plan repeat xrays in 2 weeks and reassess, continue knee immobilizer, PT order updated - 05/29 - Cont to work with PT. Able to ambulate with walker, NWB on right LE. -05/27- cont current mgmt - 05/24 - continue with current management. - 05/20- ordered venous doppler right leg for swelling - results as above - 05/18- repeat xray with no significant change - 05/11- per ortho team: patient to remain non-weight bearing to right lower extremity - 05/09- right knee xrays ordered by orthopedics team- No acute fracture. Status post ORIF old patellar fracture No significant interval change compared to the prior examination Will follow up recommendations from orthopedics team - 05/05:Ortho Dr. Pino and Jayce West PA following- no orthopedic intervention indicated at this time, strict NWB, PT/OT - Impaction/insufficiency fracture, lateral aspect proximal tibia, non operative , treated with strict NWB and immobilization - At least 6 weeks old by imaging - Tylenol 650 mg PO Q6 PRN mild pain - Tramadol 25mg TID pRN - Daily physical therapy - Nonweight bearing on R leg - L knee x-ray: severe osteopenia. Sclerotic changes about the posterior proximal tibia may relate to a sclerotic healing response of a prior stress fracture here. no tibial plateau depressed fracture. The sclerosis is perceived on the prior 04/21 study; no interval pathology appreciated between 2 exams. If symptoms worsen consider MRI. 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 sclerosi about right acetabulum - daily physical therapy - PT 05/05: decline in transfers due to limitation from right hip and knee pain. patient still able to tolerate hallway ambulation, no episode of orthostatic hypotension post gait. recommending room/hallway ambulation w/ nursing for AM/ PM care or toileting. - PT 05/09: decline in function limited by persisting right groin/ hip and knee pain. patient still recommended for daily out of bed during am/pm care. cleared for ambulation in the room with standard walker non weight bearing right lower extremity - PT 05/10: mild decline in transfers due to pain in right knee and hip. NWB to RLE. Patient with episode of hypotension post ambulation- no syncope. - 05/16: discussed with PT. Patient function declining due to immobility. Patient needs to go from bed to chair. Patient should also be ambulating to the bathroom with assist. Patient becomes hypotensive with walking. - 05/17: patient assisted to chair. discussed with nursing the need for ambulation to and from bathroom with assistance as well as transfer from bed to chair Abdominal discomfort likely /2 Constipation - Lactulose, reports BMs - Monitor Facial rash - resembles seborrheic dermatitis, patient encouraged to moisturize - ESR 32 - CRP 1.51 - RA- negative - A&D ointment to face Orthostasis - 05/21: IV fluids- NS at 100cc/h - stopped - 05/16: Per PT, patient becomes hypotensive with exertion. adding sodium chloride tablets 1g daily - 05/05: -Supine BP: 114/71, HR 75 -Sitting BP: 113/71, HR 90 -Standing BP: 116/72, HR 94 Anemia; will monitor - 05/30: Hgb trending up - 05/26: may have a component of Fe deficiency, will replete - 05/25: Hgb still low, will get labs with Iron panel tomorrow - 05/22: Hgb 8.7, repeated and was 9.5 - 05/15: hgb 11.0 - chronic - monitor with weekly labs Abdominal Pain; resolved - 05/24: less abd pain, reports BMs - 05/22: continues to complain of straining, will give one time miralax dose - 05/21: restart colace 100mg BID as patient straining to have BM - patient with multiple soft stools- will stop miralax for now - patient has been complaining of abdominal pain since admission - Colace 100mg PO BID - Dulcolax every 3 days - Inguinal hernia with unobstructed bowel loop involvement; protruded 04/18 due to straining on toilet. - 05/03/16 B/L inguinal hernias reduced today without incidence - Abdominal US 04/01: Gallstones, no acute cholecystitis, no hydronephrosis. trace ascites (see full report) - Abd/pelv CT 03/11: mod b/l pleural effusions and assoc consolidations; tiny probably gallstones within the gallbladder; small to moderate hiatal hernia; R inguinal hernia which contains small loops of bowel, likely small bowel- no evidence of obstruction as oral contrast is noted within R colon. No definite free air, however evaluation for pneumoperitoneum is suboptimal. Moderate to severe constipation with questionable impaction. Prostate gland 4.1cm x 4.6cm. Urinary bladder appears unremarkable. Small amount of fluid within a right inguinal hernia. Sclerosis of right iliac wing. Extensive anasarca. Aneursmal dilatation of ascending thoracic aorta; Currently 4.5 cm. Patient needs repeat Ct imaging every 6 months - last CT scan in 03/2016, should be monitored in September, Onychomycosis;chronic and improving - patient had aseptic debridement of toenails x 10 - clotrimazole cream to be applied to feet b/l BID - podiatry following Sacral decubitus- resolved - 05/17- sacrum examined- no sacral ulcers noted - 05/16: patient needs to go from bed to chair to prevent ulcers from re-forming - 04/19: exam revealed a previously healed decubitus ulcer of right buttocks. Sacral exam was clear. - Wound care following - recommending medihoney covered with bordered telfa dressing to right lower buttocks stage 2 pressure ulcer daily. - Pt is OOB to chair with help from PT daily - Order placed for turning patient Q2H History of Urinary Tract Infection - 05/20: ordered repeat urine culture for urinary frequency - no growth (Final) - 05/17: urine culture negative - 05/16: + nitrates, 4 RBC, occasional bacteria. - urine culture 05/03- no growth - UA 05/05: +nitrates, occasional bacteria Diarrhea- resolved - 05/22 - resolved - culture negative - 05/18: c. diff negative, no salmonella - 05/17: ova and parasites negative Hypokalemia - Monitor - Replete as needed Syncopal Episode x1- resolved - 2/23/17 CTA- negative for PE (underlying atelectasis new findings compared to the prior study 03/20/2016.) Prophylactic Measure - Labs weekly - Lovenox 40mg SC daily - Pepcid 20mg PO BID - A and D ointment TOP Q*H - Patient is homeless. Used to stay with friend, but no longer welcome there. Goal is to walk with cane so he can go to a care home (will not qualify with a walker) - patient will need to work with PT frequently - right calf with dark skin lesion underneath knee immobilizer- wound care on board- applying medihoney DISPO - Reaching out to family in [facility] - no response from family per case management - Social Work is following up - Cant be discharged to care home due to functional status - Continues to work with PT - No new changes to pt status or plan <Jose Wiggins - Last Filed: 06/06/16 18:23> Objective - Vital Signs/Intake and Output Vital Signs (last 24 hours): Temp Pulse Resp BP Pulse Ox 97.3 F L 68 20 104/65 97 06/06/16 16:00 06/06/16 16:14 06/06/16 16:00 06/06/16 16:00 06/06/16 16:00 Intake and Output: 06/06/16 06/06/16 06:59 18:59 Intake Total 540 400 Output Total 800 Balance 540 -400 - Medications Medications: Current Medications Acetaminophen (Tylenol 325mg Tab) 650 mg PO Q6 [facility] Last Admin: 06/06/16 17:53 Dose: 650 mg Carbamide Peroxide (Debrox Ear Drops) 1 ml AU BID [facility] Last Admin: 06/06/16 17:52 Dose: 1 ml Clotrimazole (Lotrimin 1%) 0 gm TOP BID [facility] Last Admin: 06/06/16 17:52 Dose: 1 applic Docusate Sodium (Colace) 100 mg PO BID [facility] Last Admin: 06/06/16 17:51 Dose: 100 mg Enoxaparin Sodium (Lovenox) 40 mg SC DAILY [facility] Last Admin: 06/06/16 10:47 Dose: 40 mg Famotidine (Pepcid) 20 mg PO BID [facility] Last Admin: 06/06/16 17:52 Dose: 20 mg Magnesium Oxide (Mag-Ox) 400 mg PO BID [facility] Last Admin: 06/06/16 17:51 Dose: 400 mg Polyethylene Glycol (Miralax) 17 gm PO Q2D [facility] Last Admin: 06/06/16 12:38 Dose: Not Given Sodium Chloride (Sodium Chloride Tab) 1 gm PO DAILY@1330 [facility] Last Admin: 06/06/16 12:59 Dose: 1 gm Tamsulosin HCl (Flomax) 0.8 mg PO DAILY [facility] Last Admin: 06/06/16 10:46 Dose: 0.8 mg Tramadol HCl (Ultram) 25 mg PO TID PRN PRN Reason: Pain, moderate (4-7) Last Admin: 06/06/16 12:59 Dose: 25 mg - Labs Labs: 06/05/16 07:14 06/05/16 07:14 Attending/Attestation - Attestation I have personally seen and examined this patient.: Yes I have fully participated in the care of the patient.: Yes I have reviewed all pertinent clinical information, including history, physical exam and plan: Yes Notes (Text): 06/06/16 18:23 Patient was seen and examined at bedside with the resident Patient complains of for right lower extremity pain Continue current management Continue physical therapy daily Plan for cystoscopy/TURP as per urology
[2016-06-06] MEDS: Magnesium Oxide 400 mg Tab UD PO SCH ×2 (10:46→17:51)
[2016-06-06] MEDS: Enoxaparin 40 mg Syringe SC SCH (10:47)
[2016-06-06] MEDS: Clotrimazole 1% Cream 15 GM TUBE TOP SCH ×2 (10:49→17:52)
--- NOTE | 2016-06-06 12:27 | RAD ---
PROCEDURE: Right Hip Radiographs. HISTORY: follow up COMPARISON: 04/03/2016 FINDINGS: BONES: No acute fracture. JOINTS: Right hip arthroplasty. Right protrusio acetabuli. superior migration right acetabular prosthesis as on prior examination. Probable reactive sclerosis about right pseudo acetabulum. No evidence of prosthesis loosening. SOFT TISSUES: Normal. OTHER FINDINGS: None. IMPRESSION: Right hip arthroplasty. Right protrusio acetabuli. Superior migration of prosthesis. Probable reactive sclerosis about right pseudo acetabulum.
--- NOTE | 2016-06-06 12:31 | RAD ---
PROCEDURE: Right Knee Radiographs. HISTORY: follow up stress fx, may remove brace COMPARISON: 05/30/2016 FINDINGS: BONES: No acute fracture. Diffuse demineralization. Status post ORIF of right patellar fracture. Anatomic alignment achieved. As previously noted, ossific density anterior to proximal tibia, in lateral projection. Uncertain significance. JOINTS: Subchondral lucency of lateral aspect medial tibial plateau may represent subchondral cysts of osteoarthritis, although the joint space is preserved. 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 JOINT EFFUSION: None. OTHER FINDINGS: None. IMPRESSION: ORIF patellar fracture, in anatomic alignment. No other acute fracture.
[2016-06-06] MEDS: POLYETHYLENE GLYCOL 3350 17 GM/Dose PACKET PO SCH (12:38)
--- NOTE | 2016-06-07 09:14 | CP.PCM.PN ---
Subjective - Date & Time of Evaluation Date of Evaluation: 06/07/16 Time of Evaluation: 10:42 - Subjective Subjective: Patient states he has a little pain in the front of his knee at times. He denies any new complaints. Review of Systems - Review of Systems All systems: reviewed and no additional remarkable complaints except - Musculoskeletal Musculoskeletal: As Par HPI Objective - Vital Signs/Intake and Output Vital Signs (last 24 hours): Temp Pulse Resp BP Pulse Ox 97.8 F 71 20 117/69 98 06/07/16 07:59 06/07/16 07:59 06/07/16 07:59 06/07/16 07:59 06/07/16 07:59 Intake and Output: 06/07/16 06/07/16 06:59 18:59 Intake Total 540 Output Total 600 Balance -60 - Medications Medications: Current Medications Acetaminophen (Tylenol 325mg Tab) 650 mg PO Q6 [facility] Last Admin: 06/07/16 06:07 Dose: Not Given Carbamide Peroxide (Debrox Ear Drops) 1 ml AU BID [facility] Last Admin: 06/06/16 17:52 Dose: 1 ml Clotrimazole (Lotrimin 1%) 0 gm TOP BID [facility] Last Admin: 06/06/16 17:52 Dose: 1 applic Docusate Sodium (Colace) 100 mg PO BID [facility] Last Admin: 06/06/16 17:51 Dose: 100 mg Enoxaparin Sodium (Lovenox) 40 mg SC DAILY [facility] Last Admin: 06/06/16 10:47 Dose: 40 mg Famotidine (Pepcid) 20 mg PO BID [facility] Last Admin: 06/06/16 17:52 Dose: 20 mg Magnesium Oxide (Mag-Ox) 400 mg PO BID [facility] Last Admin: 06/06/16 17:51 Dose: 400 mg Polyethylene Glycol (Miralax) 17 gm PO Q2D [facility] Last Admin: 06/06/16 12:38 Dose: Not Given Sodium Chloride (Sodium Chloride Tab) 1 gm PO DAILY@1330 [facility] Last Admin: 06/06/16 12:59 Dose: 1 gm Tamsulosin HCl (Flomax) 0.8 mg PO DAILY [facility] Last Admin: 06/06/16 10:46 Dose: 0.8 mg Tramadol HCl (Ultram) 25 mg PO TID PRN PRN Reason: Pain, moderate (4-7) Last Admin: 06/06/16 12:59 Dose: 25 mg - Labs Labs: 06/05/16 07:14 06/05/16 07:14 - Constitutional Appears: Well, No Acute Distress - Cardiovascular Exam Additional comments: +DP/PT pulses calvessfot NT neg homans - Extremities Exam Additional comments: patient points to anterior knee at patella when localizing pain. Patient advised he has sig arthritis of PF joint, which could be complication of fx/ORIF no tenderness to proximal tibia at this time at stress fracture site demond bandage changed, wound care dressing intact to lower leg sensation intact knee immob reapplied - Neurological Exam Neuro motor strength exam: Right Lower Extremity: 5 (ankle DF/PF, toes flex/ext) - Psychiatric Exam Psychiatric exam: Normal Affect, Normal Mood - Skin Skin Exam: Dry, Intact, Normal Color, Warm Assessment and Plan (1) Acetabular protrusion Assessment & Plan: new xrays 06/06 are equivocal to xrays on admission no further migration noted continue protected WB no ortho intervention planned orthopedically stable d/w Dr. Pino, agrees with above Status: Acute (2) Fracture of tibia, proximal, right, closed Assessment & Plan: Xrays shows resolution of sclerotic line at proximal tibial stress fracture laterally Patient TTWB due to protrusio, cont ROM of right knee with PT cont knee immobilizer for now per Dr. Pino healing well, now non tender Status: Chronic Radiology Interpretation - Radiology Interpretation #2 Interpretation: Accession No. : [id number] Patient Name / ID : ESME QUESADA / [id number] Exam Date : 06/06/2016 09:40:26 ( Approved ) Study Comment : Sex / Age : M / 71Y Creator : Sukhwinder Baird MD Dictator : Sukhwinder Baird MD Neuroscience Director Na : Child Welfare Assistant : Sukhwinder Baird MD Approver2 : Report Date : 06/06/2016 12:22:05 My Comment : PROCEDURE: Right Hip Radiographs. HISTORY: follow up COMPARISON: 04/03/2016 FINDINGS: BONES: No acute fracture. JOINTS: Right hip arthroplasty. Right protrusio acetabuli. superior migration right acetabular prosthesis as on prior examination. Probable reactive sclerosis about right pseudo acetabulum. No evidence of prosthesis loosening. SOFT TISSUES: Normal. OTHER FINDINGS: None. IMPRESSION: Right hip arthroplasty. Right protrusio acetabuli. Superior migration of prosthesis. Probable reactive sclerosis about right pseudo acetabulum.Patient Name / ID : ESME QUESADA / [id number] Exam Date : 06/06/2016 09:40:45 ( Approved ) Study Comment : Sex / Age : M / 71Y Creator : Sukhwinder Baird MD Dictator : Sukhwinder Baird MD Neuroscience Director Na : Child Welfare Assistant : Sukhwinder Baird MD Approver2 : Report Date : 06/06/2016 12:25:31 My Comment : PROCEDURE: Right Knee Radiographs. HISTORY: follow up stress fx, may remove brace COMPARISON: 05/30/2016 FINDINGS: BONES: No acute fracture. Diffuse demineralization. Status post ORIF of right patellar fracture. Anatomic alignment achieved. As previously noted, ossific density anterior to proximal tibia, in lateral projection. Uncertain significance. JOINTS: Subchondral lucency of lateral aspect medial tibial plateau may represent subchondral cysts of osteoarthritis, although the joint space is preserved. 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 JOINT EFFUSION: None. OTHER FINDINGS: None. IMPRESSION: ORIF patellar fracture, in anatomic alignment. No other acute fracture.
--- NOTE | 2016-06-07 10:17 | CP.PCM.PN ---
<Kimberly Ken - Last Filed: 06/07/16 10:13> Subjective - Date & Time of Evaluation Date of Evaluation: 06/07/16 Time of Evaluation: 07:00 - Subjective Subjective: PGY-[address] Wiggins: Patient seen and examined at bedside this morning. No new complaints. He admits to the same chronic pain on his left knee/leg. Denies headache, changes in vision, fevers, chills, chest pain, sob, abd pain, nausea or vomiting, diarrhea/ constipation. He is working with PT to increase physical activity. He is partial weight bearing and admits to using a walker to ambulate. He states he is out of bed sitting in the chair during the day. Objective - Vital Signs/Intake and Output Vital Signs (last 24 hours): Temp Pulse Resp BP Pulse Ox 97.8 F 71 20 117/69 98 06/07/16 07:59 06/07/16 07:59 06/07/16 07:59 06/07/16 07:59 06/07/16 07:59 Intake and Output: 06/07/16 06/07/16 06:59 18:59 Intake Total 540 Output Total 600 Balance -60 - Medications Medications: Current Medications Acetaminophen (Tylenol 325mg Tab) 650 mg PO Q6 [facility] Last Admin: 06/07/16 06:07 Dose: Not Given Carbamide Peroxide (Debrox Ear Drops) 1 ml AU BID [facility] Last Admin: 06/06/16 17:52 Dose: 1 ml Clotrimazole (Lotrimin 1%) 0 gm TOP BID [facility] Last Admin: 06/06/16 17:52 Dose: 1 applic Docusate Sodium (Colace) 100 mg PO BID [facility] Last Admin: 06/06/16 17:51 Dose: 100 mg Enoxaparin Sodium (Lovenox) 40 mg SC DAILY [facility] Last Admin: 06/06/16 10:47 Dose: 40 mg Famotidine (Pepcid) 20 mg PO BID [facility] Last Admin: 06/06/16 17:52 Dose: 20 mg Magnesium Oxide (Mag-Ox) 400 mg PO BID [facility] Last Admin: 06/06/16 17:51 Dose: 400 mg Polyethylene Glycol (Miralax) 17 gm PO Q2D [facility] Last Admin: 06/06/16 12:38 Dose: Not Given Sodium Chloride (Sodium Chloride Tab) 1 gm PO DAILY@1330 [facility] Last Admin: 06/06/16 12:59 Dose: 1 gm Tamsulosin HCl (Flomax) 0.8 mg PO DAILY [facility] Last Admin: 06/06/16 10:46 Dose: 0.8 mg Tramadol HCl (Ultram) 25 mg PO TID PRN PRN Reason: Pain, moderate (4-7) Last Admin: 06/06/16 12:59 Dose: 25 mg - Labs Labs: 06/05/16 07:14 06/05/16 07:14 - Constitutional Appears: Non-toxic, No Acute Distress - Head Exam Head Exam: ATRAUMATIC, NORMAL INSPECTION - Eye Exam Eye Exam: EOMI, Normal appearance, PERRL Pupil Exam: NORMAL ACCOMODATION - ENT Exam ENT Exam: Mucous Membranes Moist - Neck Exam Neck Exam: Normal Inspection - Respiratory Exam Respiratory Exam: Clear to Ausculation Bilateral, NORMAL BREATHING PATTERN. absent: Respiratory Distress - Cardiovascular Exam Cardiovascular Exam: REGULAR RHYTHM, +S1, +S2 - GI/Abdominal Exam GI & Abdominal Exam: Soft, Tenderness, Normal Bowel Sounds. absent: Distended, Firm, Guarding - Back Exam Back Exam: NORMAL INSPECTION. absent: CVA tenderness (L), CVA tenderness (R), paraspinal tenderness - Neurological Exam Neurological Exam: Alert, Awake, Oriented x3 - Psychiatric Exam Psychiatric exam: Normal Affect, Normal Mood - Skin Skin Exam: Dry, Intact, Normal Color, Warm Assessment and Plan - Assessment and Plan (Free Text) Assessment: BPH;chronic - possible Cysto later this will - will follow up on his plans - Flomax 0.8 mg PO daily - Finasteride 5 mg PO daily - Urology Dr. Hughes on board - will f/u with recs concerning inpatient TURP - 05/18: Pyridium 200 mg PO TIDPC- discontinued Leg swelling - 05/23: will order left leg US to r/o DVT - negative for DVT or any other abnormalities - 05/20: venous doppler ordered - read as: No evidence of deep or superficial vein thrombosis of the right lower extremity with excellent venous flow. Normal valve function noted of the right side. Normal venous flow noted in the left common femoral vein. Fracture of tibia, proximal, right, closed; pain management and physical therapy - 05/31 - per ortho - Advance to 10% TTWB RLE, plan repeat xrays in 2 weeks and reassess, continue knee immobilizer, PT order updated - 05/29 - Cont to work with PT. Able to ambulate with walker, NWB on right LE. -05/27- cont current mgmt - 05/24 - continue with current management. - 05/20- ordered venous doppler right leg for swelling - results as above - 05/18- repeat xray with no significant change - 05/11- per ortho team: patient to remain non-weight bearing to right lower extremity - 05/09- right knee xrays ordered by orthopedics team- No acute fracture. Status post ORIF old patellar fracture No significant interval change compared to the prior examination Will follow up recommendations from orthopedics team - 05/05:Ortho Dr. Pino and Jayce NICOLE following- no orthopedic intervention indicated at this time, strict NWB, PT/OT - Impaction/insufficiency fracture, lateral aspect proximal tibia, non operative , treated with strict NWB and immobilization - At least 6 weeks old by imaging - Tylenol 650 mg PO Q6 PRN mild pain - Tramadol 25mg TID pRN - Daily physical therapy - Nonweight bearing on R leg - L knee x-ray: severe osteopenia. Sclerotic changes about the posterior proximal tibia may relate to a sclerotic healing response of a prior stress fracture here. no tibial plateau depressed fracture. The sclerosis is perceived on the prior 04/21 study; no interval pathology appreciated between 2 exams. If symptoms worsen consider MRI. 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 sclerosi about right acetabulum - daily physical therapy - PT 05/05: decline in transfers due to limitation from right hip and knee pain. patient still able to tolerate hallway ambulation, no episode of orthostatic hypotension post gait. recommending room/hallway ambulation w/ nursing for AM/ PM care or toileting. - PT 05/09: decline in function limited by persisting right groin/ hip and knee pain. patient still recommended for daily out of bed during am/pm care. cleared for ambulation in the room with standard walker non weight bearing right lower extremity - PT 05/10: mild decline in transfers due to pain in right knee and hip. NWB to RLE. Patient with episode of hypotension post ambulation- no syncope. - 05/16: discussed with PT. Patient function declining due to immobility. Patient needs to go from bed to chair. Patient should also be ambulating to the bathroom with assist. Patient becomes hypotensive with walking. - 05/17: patient assisted to chair. discussed with nursing the need for ambulation to and from bathroom with assistance as well as transfer from bed to chair Abdominal discomfort likely / Constipation - Lactulose, reports BMs - Monitor Facial rash - resembles seborrheic dermatitis, patient encouraged to moisturize - ESR 32 - CRP 1.51 - RA- negative - A&D ointment to face Orthostasis - 05/21: IV fluids- NS at 100cc/h - stopped - 05/16: Per PT, patient becomes hypotensive with exertion. adding sodium chloride tablets 1g daily - 05/05: -Supine BP: 114/71, HR 75 -Sitting BP: 113/71, HR 90 -Standing BP: 116/72, HR 94 Anemia; will monitor - 05/30: Hgb trending up - 05/26: may have a component of Fe deficiency, will replete - 05/25: Hgb still low, will get labs with Iron panel tomorrow - 05/22: Hgb 8.7, repeated and was 9.5 - 05/15: hgb 11.0 - chronic - monitor with weekly labs Abdominal Pain; resolved - 05/24: less abd pain, reports BMs - 05/22: continues to complain of straining, will give one time miralax dose - 05/21: restart colace 100mg BID as patient straining to have BM - patient with multiple soft stools- will stop miralax for now - patient has been complaining of abdominal pain since admission - Colace 100mg PO BID - Dulcolax every 3 days - Inguinal hernia with unobstructed bowel loop involvement; protruded 04/18 due to straining on toilet. - 05/03/16 B/L inguinal hernias reduced today without incidence - Abdominal US 04/01: Gallstones, no acute cholecystitis, no hydronephrosis. trace ascites (see full report) - Abd/pelv CT 03/11: mod b/l pleural effusions and assoc consolidations; tiny probably gallstones within the gallbladder; small to moderate hiatal hernia; R inguinal hernia which contains small loops of bowel, likely small bowel- no evidence of obstruction as oral contrast is noted within R colon. No definite free air, however evaluation for pneumoperitoneum is suboptimal. Moderate to severe constipation with questionable impaction. Prostate gland 4.1cm x 4.6cm. Urinary bladder appears unremarkable. Small amount of fluid within a right inguinal hernia. Sclerosis of right iliac wing. Extensive anasarca. Aneursmal dilatation of ascending thoracic aorta; Currently 4.5 cm. Patient needs repeat Ct imaging every 6 months - last CT scan in 03/2016, should be monitored in September, Onychomycosis;chronic and improving - patient had aseptic debridement of toenails x 10 - clotrimazole cream to be applied to feet b/l BID - podiatry following Sacral decubitus- resolved - 05/17- sacrum examined- no sacral ulcers noted - 05/16: patient needs to go from bed to chair to prevent ulcers from re-forming - 04/19: exam revealed a previously healed decubitus ulcer of right buttocks. Sacral exam was clear. - Wound care following - recommending medihoney covered with bordered telfa dressing to right lower buttocks stage 2 pressure ulcer daily. - Pt is OOB to chair with help from PT daily - Order placed for turning patient Q2H History of Urinary Tract Infection - 05/20: ordered repeat urine culture for urinary frequency - no growth (Final) - 05/17: urine culture negative - 05/16: + nitrates, 4 RBC, occasional bacteria. - urine culture 05/03- no growth - UA 05/05: +nitrates, occasional bacteria Diarrhea- resolved - 05/22 - resolved - culture negative - 05/18: c. diff negative, no salmonella - 05/17: ova and parasites negative Hypokalemia - Monitor - Replete as needed Syncopal Episode x1- resolved - 05/04/16 CTA- negative for PE (underlying atelectasis new findings compared to the prior study 03/20/2016.) Prophylactic Measure - Labs weekly - Lovenox 40mg SC daily - Pepcid 20mg PO BID - A and D ointment TOP Q*H - Patient is homeless. Used to stay with friend, but no longer welcome there. Goal is to walk with cane so he can go to a [facility] (will not qualify with a walker) - patient will need to work with PT frequently - right calf with dark skin lesion underneath knee immobilizer- wound care on board- applying medihoney DISPO - Reaching out to family in [facility] - no response from family per case management - Social Work is following up - Cant be discharged to [facility] due to functional status - Continues to work with PT - No new changes to pt status or plan <Jose Wiggins - Last Filed: 06/07/16 17:43> Objective - Vital Signs/Intake and Output Vital Signs (last 24 hours): Temp Pulse Resp BP Pulse Ox 97.6 F 66 20 119/68 97 06/07/16 16:10 06/07/16 16:30 06/07/16 16:10 06/07/16 16:30 06/07/16 16:30 Intake and Output: 06/07/16 06/07/16 06:59 18:59 Intake Total 540 500 Output Total 600 750 Balance -60 -250 - Medications Medications: Current Medications Acetaminophen (Tylenol 325mg Tab) 650 mg PO Q6 [facility] Last Admin: 06/07/16 12:42 Dose: 650 mg Carbamide Peroxide (Debrox Ear Drops) 1 ml AU BID [facility] Last Admin: 06/07/16 10:57 Dose: 1 ml Clotrimazole (Lotrimin 1%) 0 gm TOP BID [facility] Last Admin: 06/07/16 17:39 Dose: 1 applic Docusate Sodium (Colace) 100 mg PO BID [facility] Last Admin: 06/07/16 10:54 Dose: 100 mg Enoxaparin Sodium (Lovenox) 40 mg SC DAILY [facility] Last Admin: 06/07/16 10:55 Dose: 40 mg Famotidine (Pepcid) 20 mg PO BID [facility] Last Admin: 06/07/16 10:55 Dose: 20 mg Magnesium Oxide (Mag-Ox) 400 mg PO BID [facility] Last Admin: 06/07/16 10:54 Dose: 400 mg Polyethylene Glycol (Miralax) 17 gm PO Q2D [facility] Last Admin: 06/06/16 12:38 Dose: Not Given Sodium Chloride (Sodium Chloride Tab) 1 gm PO DAILY@1330 [facility] Last Admin: 06/07/16 12:42 Dose: 1 gm Tamsulosin HCl (Flomax) 0.8 mg PO DAILY [facility] Last Admin: 06/07/16 10:55 Dose: 0.8 mg Tramadol HCl (Ultram) 25 mg PO TID PRN PRN Reason: Pain, moderate (4-7) Last Admin: 06/06/16 12:59 Dose: 25 mg - Labs Labs: 06/05/16 07:14 06/05/16 07:14 Attending/Attestation - Attestation I have personally seen and examined this patient.: Yes I have fully participated in the care of the patient.: Yes I have reviewed all pertinent clinical information, including history, physical exam and plan: Yes Notes (Text): 06/07/16 17:42 Patient was seen and examined at bedside with the resident Patient complains of right lower extremity pain We will continue physical therapy daily Urology evaluation in progress for possible cystoscopy I agree with the above assessment and plan by the resident
[2016-06-07] MEDS: Magnesium Oxide 400 mg Tab UD PO SCH ×2 (10:54→17:42)
[2016-06-07] MEDS: Enoxaparin 40 mg Syringe SC SCH (10:55)
[2016-06-07] MEDS: Clotrimazole 1% Cream 15 GM TUBE TOP SCH ×2 (10:57→17:39)
[2016-06-08] MEDS: Magnesium Oxide 400 mg Tab UD PO SCH ×2 (10:30→18:10)
[2016-06-08] MEDS: Enoxaparin 40 mg Syringe SC SCH (10:31)
[2016-06-08] MEDS: Clotrimazole 1% Cream 15 GM TUBE TOP SCH ×2 (10:32→18:10)
--- NOTE | 2016-06-08 11:13 | CP.PCM.PN ---
<Kimberly Ken - Last Filed: 06/08/16 16:53> Subjective - Date & Time of Evaluation Date of Evaluation: 06/08/16 Time of Evaluation: 07:00 - Subjective Subjective: PGY-[address] Wiggins: Patient seen and examined at bedside this morning. No new complaints. He admits to the same chronic pain on his left knee/leg which Ortho confirmed is stable. Denies headache, changes in vision, fevers, chills, chest pain, sob, abd pain, nausea or vomiting, diarrhea/constipation. He is working with PT to increase physical activity. He is partial weight bearing and admits to using a walker to ambulate. He states he is out of bed sitting in the chair during the day. He admits to 2 soft bowel movements yesterday. He is tolerating his diet. Objective - Vital Signs/Intake and Output Vital Signs (last 24 hours): Temp Pulse Resp BP Pulse Ox 98.0 F 66 20 108/67 98 06/08/16 07:56 06/08/16 07:56 06/08/16 07:56 06/08/16 07:56 06/08/16 07:56 Intake and Output: 06/08/16 06/08/16 06:59 18:59 Intake Total 360 Output Total 600 Balance -240 - Medications Medications: Current Medications Acetaminophen (Tylenol 325mg Tab) 650 mg PO Q6 [facility] Last Admin: 06/08/16 05:31 Dose: 650 mg Carbamide Peroxide (Debrox Ear Drops) 1 ml AU BID [facility] Last Admin: 06/08/16 10:33 Dose: 1 ml Clotrimazole (Lotrimin 1%) 0 gm TOP BID [facility] Last Admin: 06/08/16 10:32 Dose: 1 applic Docusate Sodium (Colace) 100 mg PO BID [facility] Last Admin: 06/08/16 10:30 Dose: 100 mg Enoxaparin Sodium (Lovenox) 40 mg SC DAILY [facility] Last Admin: 06/08/16 10:31 Dose: 40 mg Famotidine (Pepcid) 20 mg PO BID [facility] Last Admin: 06/08/16 10:30 Dose: 20 mg Magnesium Oxide (Mag-Ox) 400 mg PO BID [facility] Last Admin: 06/08/16 10:30 Dose: 400 mg Polyethylene Glycol (Miralax) 17 gm PO Q2D [facility] Last Admin: 06/06/16 12:38 Dose: Not Given Sodium Chloride (Sodium Chloride Tab) 1 gm PO DAILY@1330 [facility] Last Admin: 06/07/16 12:42 Dose: 1 gm Tamsulosin HCl (Flomax) 0.8 mg PO DAILY [facility] Last Admin: 06/08/16 10:30 Dose: 0.8 mg Tramadol HCl (Ultram) 25 mg PO TID PRN PRN Reason: Pain, moderate (4-7) Last Admin: 06/06/16 12:59 Dose: 25 mg - Labs Labs: 06/05/16 07:14 06/05/16 07:14 - Constitutional Appears: Non-toxic, No Acute Distress, Cachectic, Chronically Ill - Head Exam Head Exam: ATRAUMATIC, NORMAL INSPECTION - Eye Exam Eye Exam: EOMI, Normal appearance, PERRL Pupil Exam: NORMAL ACCOMODATION - ENT Exam ENT Exam: Mucous Membranes Moist - Respiratory Exam Respiratory Exam: Clear to Ausculation Bilateral, NORMAL BREATHING PATTERN. absent: Accessory Muscle Use, Chest Wall Tenderness, Respiratory Distress - Cardiovascular Exam Cardiovascular Exam: REGULAR RHYTHM, +S1, +S2 - GI/Abdominal Exam GI & Abdominal Exam: Soft, Normal Bowel Sounds. absent: Distended, Firm, Guarding, Tenderness - Extremities Exam Extremities Exam: Normal Inspection, Pedal Edema. absent: Calf Tenderness Additional comments: R hip pain, chronic leg pain b/l - Back Exam Back Exam: NORMAL INSPECTION. absent: CVA tenderness (L), CVA tenderness (R), paraspinal tenderness - Neurological Exam Neurological Exam: Alert, Awake, CN II-XII Intact, Oriented x3 - Psychiatric Exam Psychiatric exam: Normal Affect, Normal Mood - Skin Skin Exam: Dry, Intact, Normal Color, Warm Assessment and Plan - Assessment and Plan (Free Text) Assessment: BPH;chronic - possible Cysto later this week will - will follow up on Urology plans - Flomax 0.8 mg PO daily - Finasteride 5 mg PO daily - Urology Dr. Hughes on board - will f/u with recs concerning inpatient TURP - 05/18: Pyridium 200 mg PO TIDPC- discontinued Leg swelling - 05/23: will order left leg US to r/o DVT - negative for DVT or any other abnormalities - 05/20: venous doppler ordered - read as: No evidence of deep or superficial vein thrombosis of the right lower extremity with excellent venous flow. Normal valve function noted of the right side. Normal venous flow noted in the left common femoral vein. Fracture of tibia, proximal, right, closed; pain management and physical therapy - 06/08 - Stable - 05/31 - per ortho - Advance to 10% TTWB RLE, plan repeat xrays in 2 weeks and reassess, continue knee immobilizer, PT order updated - 05/29 - Cont to work with PT. Able to ambulate with walker, NWB on right LE. -05/27- cont current mgmt - 05/24 - continue with current management. - 05/20- ordered venous doppler right leg for swelling - results as above - 05/18- repeat xray with no significant change - 05/11- per ortho team: patient to remain non-weight bearing to right lower extremity - 05/09- right knee xrays ordered by orthopedics team- No acute fracture. Status post ORIF old patellar fracture No significant interval change compared to the prior examination Will follow up recommendations from orthopedics team - 05/05:Ortho Dr. Pino and Jayce West PA following- no orthopedic intervention indicated at this time, strict NWB, PT/OT - Impaction/insufficiency fracture, lateral aspect proximal tibia, non operative , treated with strict NWB and immobilization - At least 6 weeks old by imaging - Tylenol 650 mg PO Q6 PRN mild pain - Tramadol 25mg TID pRN - Daily physical therapy - Nonweight bearing on R leg - L knee x-ray: severe osteopenia. Sclerotic changes about the posterior proximal tibia may relate to a sclerotic healing response of a prior stress fracture here. no tibial plateau depressed fracture. The sclerosis is perceived on the prior 04/21 study; no interval pathology appreciated between 2 exams. If symptoms worsen consider MRI. 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 sclerosi about right acetabulum - daily physical therapy - PT 05/05: decline in transfers due to limitation from right hip and knee pain. patient still able to tolerate hallway ambulation, no episode of orthostatic hypotension post gait. recommending room/hallway ambulation w/ nursing for AM/ PM care or toileting. - PT 05/09: decline in function limited by persisting right groin/ hip and knee pain. patient still recommended for daily out of bed during am/pm care. cleared for ambulation in the room with standard walker non weight bearing right lower extremity - PT 05/10: mild decline in transfers due to pain in right knee and hip. NWB to RLE. Patient with episode of hypotension post ambulation- no syncope. - 05/16: discussed with PT. Patient function declining due to immobility. Patient needs to go from bed to chair. Patient should also be ambulating to the bathroom with assist. Patient becomes hypotensive with walking. - 05/17: patient assisted to chair. discussed with nursing the need for ambulation to and from bathroom with assistance as well as transfer from bed to chair Abdominal discomfort likely 22 Constipation - Lactulose, reports BMs - Monitor Facial rash - resembles seborrheic dermatitis, patient encouraged to moisturize - ESR 32 - CRP 1.51 - RA- negative - A&D ointment to face Orthostasis - 05/21: IV fluids- NS at 100cc/h - stopped - 05/16: Per PT, patient becomes hypotensive with exertion. adding sodium chloride tablets 1g daily - 05/05: -Supine BP: 114/71, HR 75 -Sitting BP: 113/71, HR 90 -Standing BP: 116/72, HR 94 Anemia; will monitor - 05/30: Hgb trending up - 05/26: may have a component of Fe deficiency, will replete - 05/25: Hgb still low, will get labs with Iron panel tomorrow - 05/22: Hgb 8.7, repeated and was 9.5 - 05/15: hgb 11.0 - chronic - monitor with weekly labs Abdominal Pain; resolved - 05/24: less abd pain, reports BMs - 05/22: continues to complain of straining, will give one time miralax dose - 05/21: restart colace 100mg BID as patient straining to have BM - patient with multiple soft stools- will stop miralax for now - patient has been complaining of abdominal pain since admission - Colace 100mg PO BID - Dulcolax every 3 days - Inguinal hernia with unobstructed bowel loop involvement; protruded 04/18 due to straining on toilet. - 05/03/16 B/L inguinal hernias reduced today without incidence - Abdominal US 04/01: Gallstones, no acute cholecystitis, no hydronephrosis. trace ascites (see full report) - Abd/pelv CT 03/11: mod b/l pleural effusions and assoc consolidations; tiny probably gallstones within the gallbladder; small to moderate hiatal hernia; R inguinal hernia which contains small loops of bowel, likely small bowel- no evidence of obstruction as oral contrast is noted within R colon. No definite free air, however evaluation for pneumoperitoneum is suboptimal. Moderate to severe constipation with questionable impaction. Prostate gland 4.1cm x 4.6cm. Urinary bladder appears unremarkable. Small amount of fluid within a right inguinal hernia. Sclerosis of right iliac wing. Extensive anasarca. Aneursmal dilatation of ascending thoracic aorta; Currently 4.5 cm. Patient needs repeat Ct imaging every 6 months - last CT scan in 03/2016, should be monitored in September, Onychomycosis;chronic and improving - patient had aseptic debridement of toenails x 10 - clotrimazole cream to be applied to feet b/l BID - podiatry following Sacral decubitus- resolved - 05/17- sacrum examined- no sacral ulcers noted - 05/16: patient needs to go from bed to chair to prevent ulcers from re-forming - 04/19: exam revealed a previously healed decubitus ulcer of right buttocks. Sacral exam was clear. - Wound care following - recommending medihoney covered with bordered telfa dressing to right lower buttocks stage 2 pressure ulcer daily. - Pt is OOB to chair with help from PT daily - Order placed for turning patient Q2H History of Urinary Tract Infection - 05/20: ordered repeat urine culture for urinary frequency - no growth (Final) - 05/17: urine culture negative - 05/16: + nitrates, 4 RBC, occasional bacteria. - urine culture 05/03- no growth - UA 05/05: +nitrates, occasional bacteria Diarrhea- resolved - 05/22 - resolved - culture negative - 05/18: c. diff negative, no salmonella - 05/17: ova and parasites negative Hypokalemia - Monitor - Replete as needed Syncopal Episode x1- resolved - 05/04/16 CTA- negative for PE (underlying atelectasis new findings compared to the prior study 03/20/2016.) Prophylactic Measure - Labs weekly - Lovenox 40mg SC daily - Pepcid 20mg PO BID - A and D ointment TOP Q*H - Patient is homeless. Used to stay with friend, but no longer welcome there. Goal is to walk with cane so he can go to a [facility] (will not qualify with a walker) - patient will need to work with PT frequently - right calf with dark skin lesion underneath knee immobilizer- wound care on board- applying medihoney DISPO - Reaching out to family in [facility] - no response from family per case management - Social Work is following up - Cant be discharged to [facility] due to functional status - Continues to work with PT - No new changes to pt status or plan <Jose Wiggins - Last Filed: 06/08/16 17:33> Objective - Vital Signs/Intake and Output Vital Signs (last 24 hours): Temp Pulse Resp BP Pulse Ox 97.9 F 78 20 115/77 98 06/08/16 16:00 06/08/16 16:00 06/08/16 16:00 06/08/16 16:00 06/08/16 16:00 Intake and Output: 06/08/16 06/08/16 06:59 18:59 Intake Total 360 450 Output Total 600 Balance -240 450 - Medications Medications: Current Medications Acetaminophen (Tylenol 325mg Tab) 650 mg PO Q6 [facility] Last Admin: 06/08/16 11:49 Dose: 650 mg Carbamide Peroxide (Debrox Ear Drops) 1 ml AU BID [facility] Last Admin: 06/08/16 10:33 Dose: 1 ml Clotrimazole (Lotrimin 1%) 0 gm TOP BID [facility] Last Admin: 06/08/16 10:32 Dose: 1 applic Docusate Sodium (Colace) 100 mg PO BID [facility] Last Admin: 06/08/16 10:30 Dose: 100 mg Enoxaparin Sodium (Lovenox) 40 mg SC DAILY [facility] Last Admin: 06/08/16 10:31 Dose: 40 mg Famotidine (Pepcid) 20 mg PO BID [facility] Last Admin: 06/08/16 10:30 Dose: 20 mg Magnesium Oxide (Mag-Ox) 400 mg PO BID [facility] Last Admin: 06/08/16 10:30 Dose: 400 mg Polyethylene Glycol (Miralax) 17 gm PO Q2D [facility] Last Admin: 06/08/16 13:34 Dose: Not Given Sodium Chloride (Sodium Chloride Tab) 1 gm PO DAILY@1330 [facility] Last Admin: 06/08/16 13:32 Dose: 1 gm Tamsulosin HCl (Flomax) 0.8 mg PO DAILY [facility] Last Admin: 06/08/16 10:30 Dose: 0.8 mg Tramadol HCl (Ultram) 25 mg PO TID PRN PRN Reason: Pain, moderate (4-7) Last Admin: 06/06/16 12:59 Dose: 25 mg - Labs Labs: 06/05/16 07:14 06/05/16 07:14 Attending/Attestation - Attestation I have personally seen and examined this patient.: Yes I have fully participated in the care of the patient.: Yes I have reviewed all pertinent clinical information, including history, physical exam and plan: Yes Notes (Text): 06/08/16 17:32 Patient was seen and examined at bedside with the resident No new complaints We will continue physical therapy daily
[2016-06-08] MEDS: POLYETHYLENE GLYCOL 3350 17 GM/Dose PACKET PO SCH ×2 (13:32→13:34)
[2016-06-09] MEDS: Enoxaparin 40 mg Syringe SC SCH (09:29)
[2016-06-09] MEDS: Clotrimazole 1% Cream 15 GM TUBE TOP SCH ×2 (09:30→17:51)
[2016-06-09] MEDS: Magnesium Oxide 400 mg Tab UD PO SCH ×2 (09:30→17:52)
--- NOTE | 2016-06-09 11:32 | CP.PCM.CON ---
History of Present Illness - History of Present Illness History of Present Illness: Palliative consult requested by Jesus Manuel ALVAREZ Reason: Goals of care and symptoms management Patient is a 71 yo homeless man, admitted with complaints of leg pain. The XRay of Right knee was significant for severe osteopenia. Patient further complained of left knee pain. The doppler of LE was negative DVT. Right knee is immobilized , patient ambulates with walker, symptomatic Tx. PMH: Patient is unsure Soc. hx: homeless, alcohol abuse in past Fam. hx: denies close relatives Review of Systems - Constitutional Constitutional: Malaise - EENT Eyes: absent: As Per HPI, Blind Spots, Blurred Vision, Change in Vision, Decreased Night Vision, Diplopia, Discharge, Dry Eye, Exophthalmos, Floaters, Irritation, Itchy Eyes, Loss of Peripheral Vision, Pain, Photophobia, Requires Corrective Lenses, Sees Flashes, Spots in Vision, Tunnel Vision, Other Visual Disturbances, Loss of Vision, Other Ears: absent: As Per HPI, Decreased Hearing, Ear Discharge, Ear Pain, Tinnitus, Abnormal Hearing, Disequilibrium, Dizziness, Other Nose/Mouth/Throat: absent: As Per HPI, Epistaxis, Nasal Congestion, Nasal Discharge, Nasal Obstruction, Nasal Trauma, Nose Pain, Post Nasal Drip, Sinus Pain, Sinus Pressure, Bleeding Gums, Change in Voice, Dental Pain, Dry Mouth, Dysphagia, Halitosis, Hoarsness, Lip Swelling, Mouth Lesions, Mouth Pain, Odynophagia, Sore Throat, Throat Swelling, Tongue Swelling, Facial Pain, Neck Pain, Neck Mass, Other - Cardiovascular Cardiovascular: Leg Edema, Pedal Edema - Respiratory Respiratory: absent: As Per HPI, Cough, Dyspnea, Hemoptysis, Dyspnea on Exertion , Wheezing, Snoring, Stridor, Pain on Inspiration, Chest Congestion, Excessive Mucous Production, Change in Mucous Color, Pain with Coughing, Other - Gastrointestinal Gastrointestinal: Change in Bowel Habits - Genitourinary Genitourinary: Dysuria - Musculoskeletal Musculoskeletal: Muscle Weakness - Integumentary Integumentary: Change in Pigmentation - Neurological Neurological: Weakness - Psychiatric Psychiatric: Hopelessness - Endocrine Endocrine: absent: As Per HPI, Change in Body Appearance, Change in Libido, Cold Intolorance, Deepening of Voice, Excessive Sweating, Fatigue, Flushing, Heat Intolorance, Increase in Ring/Shoe/Hat Size, Palpitations, Polydipsia, Polyphagia, Polyuria, Other - Hematologic/Lymphatic Hematologic: absent: As Per HPI, Easy Bleeding, Easy Bruising, Lymphadenopathy, Other Past Patient History - Infectious Disease Hx of Infectious Diseases: None - Past Medical History & Family History Past Medical History?: Yes - Past Social History Smoking Status: Never Smoked - CARDIAC Hx Hypertension: Yes - PULMONARY Hx Chronic Obstructive Pulmonary Disease (COPD): Yes - NEUROLOGICAL Hx Neurological Disorder: No - HEENT Hx HEENT Problems: No - RENAL Hx Chronic Kidney Disease: No - ENDOCRINE/METABOLIC Hx Endocrine Disorders: No - HEMATOLOGICAL/ONCOLOGICAL Hx Human Immunodeficiency Virus (HIV): No - INTEGUMENTARY Hx Dermatological Problems: No - MUSCULOSKELETAL/RHEUMATOLOGICAL Hx Arthritis: Yes - GASTROINTESTINAL Hx Gastrointestinal Disorders: No - GENITOURINARY/GYNECOLOGICAL Hx Genitourinary Disorders: Yes - PSYCHIATRIC Hx Anxiety: Yes Hx Depression: Yes Hx Substance Use: No - SURGICAL HISTORY Hx Herniorrhaphy: Yes Other/Comment: Hip surgery and abdominal surgery - ANESTHESIA Hx Anesthesia: Yes Hx Anesthesia Reactions: No Meds Allergies/Adverse Reactions: Allergies Allergy/AdvReac Type Severity Reaction Status Date / Time No Known Allergies Allergy Verified 03/08/16 19:44 - Medications Medications: Current Medications Acetaminophen (Tylenol 325mg Tab) 650 mg PO Q6 [facility] Last Admin: 06/09/16 06:39 Dose: 650 mg Carbamide Peroxide (Debrox Ear Drops) 1 ml AU BID [facility] Last Admin: 06/09/16 09:30 Dose: 5 drop Clotrimazole (Lotrimin 1%) 0 gm TOP BID [facility] Last Admin: 06/09/16 09:30 Dose: 1 applic Docusate Sodium (Colace) 100 mg PO BID [facility] Last Admin: 06/09/16 09:29 Dose: 100 mg Enoxaparin Sodium (Lovenox) 40 mg SC DAILY [facility] Last Admin: 06/09/16 09:29 Dose: 40 mg Famotidine (Pepcid) 20 mg PO BID [facility] Last Admin: 06/09/16 09:29 Dose: 20 mg Magnesium Oxide (Mag-Ox) 400 mg PO BID [facility] Last Admin: 06/09/16 09:30 Dose: 400 mg Polyethylene Glycol (Miralax) 17 gm PO Q2D [facility] Last Admin: 06/08/16 13:34 Dose: Not Given Sodium Chloride (Sodium Chloride Tab) 1 gm PO DAILY@1330 [facility] Last Admin: 06/08/16 13:32 Dose: 1 gm Tamsulosin HCl (Flomax) 0.8 mg PO DAILY [facility] Last Admin: 06/09/16 09:29 Dose: 0.8 mg Tramadol HCl (Ultram) 25 mg PO TID PRN PRN Reason: Pain, moderate (4-7) Last Admin: 06/06/16 12:59 Dose: 25 mg Physical Exam - Constitutional Appears: Chronically Ill - Head Exam Head Exam: ATRAUMATIC - Eye Exam Eye Exam: Normal appearance Pupil Exam: NORMAL ACCOMODATION - ENT Exam ENT Exam: Normal Exam - Neck Exam Neck exam: Positive for: Normal Inspection - Respiratory Exam Respiratory Exam: Decreased Breath Sounds - Cardiovascular Exam Cardiovascular Exam: REGULAR RHYTHM - GI/Abdominal Exam GI & Abdominal Exam: Normal Bowel Sounds - Rectal Exam Rectal Exam: Deferred - Exam Exam: NORMAL INSPECTION - Extremities Exam Extremities exam: Positive for: calf tenderness, pedal edema, tenderness - Back Exam Back exam: NORMAL INSPECTION - Neurological Exam Neurological exam: Alert, Oriented x3 - Psychiatric Exam Psychiatric exam: Flat Affect - Skin Skin Exam: Mottled Results - Vital Signs Recent Vital Signs: Last Vital Signs Temp 98.3 F 06/09/16 08:15 Pulse 69 06/09/16 08:15 Resp 20 06/09/16 08:15 BP 108/62 06/09/16 08:15 Pulse Ox 97 06/09/16 08:15 - Labs Result Diagrams: 06/05/16 07:14 06/05/16 07:14 Assessment & Plan - Assessment and Plan (Free Text) Assessment: Code status DNR/DNI, POLST on chart. PPS 40%. I reviewed medical records, all diagnostic studies, examined and interviewed patient in the bed. Total time spent, 60min. Patient is alert, oriented X 3 with affect that is flat. Ambulates with walker. Patient looks chronically ill and very weak. Lower extremities are discolored, skin is molted, right leg with brace on. Patient reports pain to left knee. Limited ROM to both knees. Left heel feels sore as per patient. Skin is very soft, intact and painful to touch. The toe nails are with degenerative changes. Patient reports pain " pins and needles" to both feet. Toradol Po PRN on board for pain. At left inner buttock there is a bleeding excoriation , further irritated by bowel movements. Patient denies dysuria and constipation. Impression * Chronically ill homeless man with vascular changes to lower extremities * Limited ROM due to pain and swelling * Neuropathy of B/L foot * Inner buttock excoriation, bleeds after BMs * Difficulties walking Suggestion * Silvadine ointm to inner buttocks TID and after each BM * Would consider Neurontin 100 mg TID for neuropatic pain * Off load the feet when in bed * Use nonconstructive socks or cut a slit on existing ones * Promote safety * SS for proper placement * Agree with DNR/DNI Thank you for consulting Palliative services
--- NOTE | 2016-06-09 15:51 | CP.PCM.PN ---
<Sadia Dior - Last Filed: 06/09/16 15:49> Subjective - Date & Time of Evaluation Date of Evaluation: 06/09/16 Time of Evaluation: 07:30 - Subjective Subjective: Internal medicine progress note for Dr. Sarah Dior, PGY-1 Pt S & E at bedside. Pt continues to c/o RLE pain, now with pain at plantar aspect of left heel. Denies N/V/F/C, SOB, CP, abdominal pain, tolerating diet, sleeping ok Objective - Vital Signs/Intake and Output Vital Signs (last 24 hours): Temp Pulse Resp BP Pulse Ox 98.3 F 69 20 108/62 97 06/09/16 08:15 06/09/16 13:59 06/09/16 08:15 06/09/16 08:15 06/09/16 08:15 Intake and Output: 06/09/16 06/09/16 06:59 18:59 Intake Total 500 Balance 500 - Medications Medications: Current Medications Acetaminophen (Tylenol 325mg Tab) 650 mg PO Q6 [facility] Last Admin: 06/09/16 13:31 Dose: 650 mg Carbamide Peroxide (Debrox Ear Drops) 1 ml AU BID [facility] Last Admin: 06/09/16 09:30 Dose: 5 drop Clotrimazole (Lotrimin 1%) 0 gm TOP BID [facility] Last Admin: 06/09/16 09:30 Dose: 1 applic Docusate Sodium (Colace) 100 mg PO BID [facility] Last Admin: 06/09/16 09:29 Dose: 100 mg Enoxaparin Sodium (Lovenox) 40 mg SC DAILY [facility] Last Admin: 06/09/16 09:29 Dose: 40 mg Famotidine (Pepcid) 20 mg PO BID [facility] Last Admin: 06/09/16 09:29 Dose: 20 mg Magnesium Oxide (Mag-Ox) 400 mg PO BID [facility] Last Admin: 06/09/16 09:30 Dose: 400 mg Polyethylene Glycol (Miralax) 17 gm PO Q2D [facility] Last Admin: 06/08/16 13:34 Dose: Not Given Silver Sulfadiazine (Silvadene 1% 20 Gm) 1 ea TOP Q12H [facility] Sodium Chloride (Sodium Chloride Tab) 1 gm PO DAILY@1330 [facility] Last Admin: 06/09/16 14:05 Dose: 1 gm Tamsulosin HCl (Flomax) 0.8 mg PO DAILY [facility] Last Admin: 06/09/16 09:29 Dose: 0.8 mg Tramadol HCl (Ultram) 25 mg PO TID PRN PRN Reason: Pain, moderate (4-7) Last Admin: 06/06/16 12:59 Dose: 25 mg - Labs Labs: 06/05/16 07:14 06/05/16 07:14 - Constitutional Appears: Non-toxic, No Acute Distress, Cachectic - Head Exam Head Exam: ATRAUMATIC, NORMAL INSPECTION, NORMOCEPHALIC - Eye Exam Eye Exam: EOMI, Normal appearance, PERRL Pupil Exam: NORMAL ACCOMODATION, PERRL - ENT Exam ENT Exam: Mucous Membranes Moist, Normal Exam Additional comments: Poor dentition - Neck Exam Neck Exam: Full ROM, Normal Inspection - Respiratory Exam Respiratory Exam: Clear to Ausculation Bilateral, NORMAL BREATHING PATTERN. absent: Rales, Rhonchi, Wheezes, Respiratory Distress - Cardiovascular Exam Cardiovascular Exam: REGULAR RHYTHM, +S1, +S2 - GI/Abdominal Exam GI & Abdominal Exam: Soft, Normal Bowel Sounds - Extremities Exam Additional comments: RLE w/brace in place, tender at proximal and distal aspects of limb, left foot plantar aspect of heel tender to palpation, no lesions noted - Neurological Exam Neurological Exam: Alert, Awake, CN II-XII Intact, Oriented x3 - Psychiatric Exam Psychiatric exam: Normal Affect, Normal Mood - Skin Skin Exam: Dry, Intact (flaky skin over face), Warm Assessment and Plan - Assessment and Plan (Free Text) Assessment: BPH;chronic -No plans from urology as of yet - possible Cysto later this week will - will follow up on Urology plans - Flomax 0.8 mg PO daily - Finasteride 5 mg PO daily - Urology Dr. Hughes on board - will f/u with recs concerning inpatient TURP - 05/18: Pyridium 200 mg PO TIDPC- discontinued Leg swelling -06/09: No changes - 05/23: will order left leg US to r/o DVT - negative for DVT or any other abnormalities - 05/20: venous doppler ordered - read as: No evidence of deep or superficial vein thrombosis of the right lower extremity with excellent venous flow. Normal valve function noted of the right side. Normal venous flow noted in the left common femoral vein. Fracture of tibia, proximal, right, closed; pain management and physical therapy -06/08- re-ordered PT eval - 06/08 - Stable - 05/31 - per ortho - Advance to 10% TTWB RLE, plan repeat xrays in 2 weeks and reassess, continue knee immobilizer, PT order updated - 05/29 - Cont to work with PT. Able to ambulate with walker, NWB on right LE. -05/27- cont current mgmt - 05/24 - continue with current management. - 05/20- ordered venous doppler right leg for swelling - results as above - 05/18- repeat xray with no significant change - 05/11- per ortho team: patient to remain non-weight bearing to right lower extremity - 05/09- right knee xrays ordered by orthopedics team- No acute fracture. Status post ORIF old patellar fracture No significant interval change compared to the prior examination Will follow up recommendations from orthopedics team - 05/05:Ortho Dr. Pino and Jayce West PA following- no orthopedic intervention indicated at this time, strict NWB, PT/OT - Impaction/insufficiency fracture, lateral aspect proximal tibia, non operative , treated with strict NWB and immobilization - At least 6 weeks old by imaging - Tylenol 650 mg PO Q6 PRN mild pain - Tramadol 25mg TID pRN - Daily physical therapy - Nonweight bearing on R leg - L knee x-ray: severe osteopenia. Sclerotic changes about the posterior proximal tibia may relate to a sclerotic healing response of a prior stress fracture here. no tibial plateau depressed fracture. The sclerosis is perceived on the prior 04/21 study; no interval pathology appreciated between 2 exams. If symptoms worsen consider MRI. 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 sclerosi about right acetabulum - daily physical therapy - PT 05/05: decline in transfers due to limitation from right hip and knee pain. patient still able to tolerate hallway ambulation, no episode of orthostatic hypotension post gait. recommending room/hallway ambulation w/ nursing for AM/ PM care or toileting. - PT 05/09: decline in function limited by persisting right groin/ hip and knee pain. patient still recommended for daily out of bed during am/pm care. cleared for ambulation in the room with standard walker non weight bearing right lower extremity - PT 05/10: mild decline in transfers due to pain in right knee and hip. NWB to RLE. Patient with episode of hypotension post ambulation- no syncope. - 05/16: discussed with PT. Patient function declining due to immobility. Patient needs to go from bed to chair. Patient should also be ambulating to the bathroom with assist. Patient becomes hypotensive with walking. - 05/17: patient assisted to chair. discussed with nursing the need for ambulation to and from bathroom with assistance as well as transfer from bed to chair Abdominal discomfort likely 04/13 Constipation - 06/09- no abdominal pain reported, moving bowels - Lactulose, reports BMs - Monitor Facial rash - Stable - resembles seborrheic dermatitis, patient encouraged to moisturize - ESR 32 - CRP 1.51 - RA- negative - A&D ointment to face Orthostasis - 05/21: IV fluids- NS at 100cc/h - stopped - 05/16: Per PT, patient becomes hypotensive with exertion. adding sodium chloride tablets 1g daily - 05/05: -Supine BP: 114/71, HR 75 -Sitting BP: 113/71, HR 90 -Standing BP: 116/72, HR 94 Anemia; will monitor - 05/30: Hgb trending up - 05/26: may have a component of Fe deficiency, will replete - 05/25: Hgb still low, will get labs with Iron panel tomorrow - 05/22: Hgb 8.7, repeated and was 9.5 - 05/15: hgb 11.0 - chronic - monitor with weekly labs Abdominal Pain; resolved - 06/09- no abdominal pain reported, moving bowels - 05/24: less abd pain, reports BMs - 05/22: continues to complain of straining, will give one time miralax dose - 05/21: restart colace 100mg BID as patient straining to have BM - patient with multiple soft stools- will stop miralax for now - patient has been complaining of abdominal pain since admission - Colace 100mg PO BID - Dulcolax every 3 days - Inguinal hernia with unobstructed bowel loop involvement; protruded 04/18 due to straining on toilet. - 05/03/16 B/L inguinal hernias reduced today without incidence - Abdominal US 04/01: Gallstones, no acute cholecystitis, no hydronephrosis. trace ascites (see full report) - Abd/pelv CT 03/11: mod b/l pleural effusions and assoc consolidations; tiny probably gallstones within the gallbladder; small to moderate hiatal hernia; R inguinal hernia which contains small loops of bowel, likely small bowel- no evidence of obstruction as oral contrast is noted within R colon. No definite free air, however evaluation for pneumoperitoneum is suboptimal. Moderate to severe constipation with questionable impaction. Prostate gland 4.1cm x 4.6cm. Urinary bladder appears unremarkable. Small amount of fluid within a right inguinal hernia. Sclerosis of right iliac wing. Extensive anasarca. Aneursmal dilatation of ascending thoracic aorta; Currently 4.5 cm. Patient needs repeat Ct imaging every 6 months - last CT scan in 03/2016, should be monitored in September, Onychomycosis;chronic and improving - patient had aseptic debridement of toenails x 10 - clotrimazole cream to be applied to feet b/l BID - podiatry following Sacral decubitus- resolved - 05/17- sacrum examined- no sacral ulcers noted - 05/16: patient needs to go from bed to chair to prevent ulcers from re-forming - 04/19: exam revealed a previously healed decubitus ulcer of right buttocks. Sacral exam was clear. - Wound care following - recommending medihoney covered with bordered telfa dressing to right lower buttocks stage 2 pressure ulcer daily. - Pt is OOB to chair with help from PT daily - Order placed for turning patient Q2H History of Urinary Tract Infection - 06/09: No urinary complaints - 05/20: ordered repeat urine culture for urinary frequency - no growth (Final) - 05/17: urine culture negative - 05/16: + nitrates, 4 RBC, occasional bacteria. - urine culture 05/03- no growth - UA 05/05: +nitrates, occasional bacteria Diarrhea- resolved - 06/09: no complaints of diarrhea, complaining of bleeding w/BMs- buttock wound , Silvadene top ordered - 05/22 - resolved - culture negative - 05/18: c. diff negative, no salmonella - 05/17: ova and parasites negative Hypokalemia - Monitor - Replete as needed Syncopal Episode x1- resolved - 05/04/16 CTA- negative for PE (underlying atelectasis new findings compared to the prior study 03/20/2016.) Prophylactic Measure - Labs weekly - Lovenox 40mg SC daily - Pepcid 20mg PO BID - A and D ointment TOP Q*H - Patient is homeless. Used to stay with friend, but no longer welcome there. Goal is to walk with cane so he can go to a correction (will not qualify with a walker) - patient will need to work with PT frequently - right calf with dark skin lesion underneath knee immobilizer- wound care on board- applying medihoney DISPO - Reaching out to family in [facility] - no response from family per case management - Social Work is following up - Cannot be discharged to correction due to functional status - Continue to work with PT - No new changes to pt status or plan - Pallative care consulted - pt agrees to DNR/DNI- cont current medical mgmt, rec for Silvadene to buttock DW attending <Jose Wiggins - Last Filed: 06/09/16 16:29> Objective - Vital Signs/Intake and Output Vital Signs (last 24 hours): Temp Pulse Resp BP Pulse Ox 98.3 F 69 20 108/62 97 06/09/16 08:15 06/09/16 13:59 06/09/16 08:15 06/09/16 08:15 06/09/16 08:15 Intake and Output: 06/09/16 06/09/16 06:59 18:59 Intake Total 500 Balance 500 - Medications Medications: Current Medications Acetaminophen (Tylenol 325mg Tab) 650 mg PO Q6 [facility] Last Admin: 06/09/16 13:31 Dose: 650 mg Carbamide Peroxide (Debrox Ear Drops) 1 ml AU BID [facility] Last Admin: 03/31/17 09:30 Dose: 5 drop Clotrimazole (Lotrimin 1%) 0 gm TOP BID [facility] Last Admin: 06/09/16 09:30 Dose: 1 applic Docusate Sodium (Colace) 100 mg PO BID [facility] Last Admin: 06/09/16 09:29 Dose: 100 mg Enoxaparin Sodium (Lovenox) 40 mg SC DAILY [facility] Last Admin: 06/09/16 09:29 Dose: 40 mg Famotidine (Pepcid) 20 mg PO BID [facility] Last Admin: 06/09/16 09:29 Dose: 20 mg Magnesium Oxide (Mag-Ox) 400 mg PO BID [facility] Last Admin: 06/09/16 09:30 Dose: 400 mg Polyethylene Glycol (Miralax) 17 gm PO Q2D [facility] Last Admin: 06/08/16 13:34 Dose: Not Given Silver Sulfadiazine (Silvadene 1% 20 Gm) 0 ea TOP Q12H [facility] Sodium Chloride (Sodium Chloride Tab) 1 gm PO DAILY@1330 [facility] Last Admin: 06/09/16 14:05 Dose: 1 gm Tamsulosin HCl (Flomax) 0.8 mg PO DAILY [facility] Last Admin: 06/09/16 09:29 Dose: 0.8 mg Tramadol HCl (Ultram) 25 mg PO TID PRN PRN Reason: Pain, moderate (4-7) Last Admin: 06/06/16 12:59 Dose: 25 mg - Labs Labs: 06/05/16 07:14 06/05/16 07:14 Attending/Attestation - Attestation I have personally seen and examined this patient.: Yes I have fully participated in the care of the patient.: Yes I have reviewed all pertinent clinical information, including history, physical exam and plan: Yes Notes (Text): 06/09/16 16:28 Patient was seen and examined at bedside with the resident Patient has no new complaints We will continue physical therapy daily I agree with the above history and physical and assessment/plan by the resident
[2016-06-09] MEDS: Silver Sulfadiazine 1% Cream (20 gm) TOP SCH (22:02)
--- NOTE | 2016-06-10 00:20 | CP.PCM.PN ---
<Jesus ManuelKimberly - Last Filed: 06/10/16 00:17> Subjective - Date & Time of Evaluation Date of Evaluation: 06/10/16 Time of Evaluation: 00:05 - Subjective Subjective: PGY-[address] Wiggins: Patient seen and examined at bedside this morning. No new complaints. Denies headache, changes in vision, fevers, chills, chest pain, sob, abd pain, nausea or vomiting, diarrhea/constipation. He is working with PT to increase physical activity. He is partial weight bearing and admits to using a walker to ambulate. He states he is out of bed sitting in the chair during the day. He admits to having soft bowel movements. He is tolerating his diet. Objective - Vital Signs/Intake and Output Vital Signs (last 24 hours): Temp Pulse Resp BP Pulse Ox 988.4 F H 74 20 106/67 96 06/09/16 23:44 06/09/16 23:44 06/09/16 23:44 06/09/16 23:44 06/09/16 23:44 Intake and Output: 06/09/16 06/10/16 18:59 06:59 Intake Total 500 Balance 500 - Medications Medications: Current Medications Acetaminophen (Tylenol 325mg Tab) 650 mg PO Q6 [facility] Last Admin: 06/09/16 17:52 Dose: 650 mg Carbamide Peroxide (Debrox Ear Drops) 1 ml AU BID [facility] Last Admin: 06/09/16 17:51 Dose: 5 drop Clotrimazole (Lotrimin 1%) 0 gm TOP BID [facility] Last Admin: 06/09/16 17:51 Dose: 11 applic Docusate Sodium (Colace) 100 mg PO BID [facility] Last Admin: 06/09/16 17:51 Dose: 100 mg Enoxaparin Sodium (Lovenox) 40 mg SC DAILY [facility] Last Admin: 06/09/16 09:29 Dose: 40 mg Famotidine (Pepcid) 20 mg PO BID [facility] Last Admin: 06/09/16 17:51 Dose: 20 mg Magnesium Oxide (Mag-Ox) 400 mg PO BID [facility] Last Admin: 06/09/16 17:52 Dose: 400 mg Polyethylene Glycol (Miralax) 17 gm PO Q2D [facility] Last Admin: 06/08/16 13:34 Dose: Not Given Silver Sulfadiazine (Silvadene 1% 20 Gm) 0 ea TOP Q12H [facility] Last Admin: 06/09/16 22:02 Dose: 1 applic Sodium Chloride (Sodium Chloride Tab) 1 gm PO DAILY@1330 [facility] Last Admin: 06/09/16 14:05 Dose: 1 gm Tamsulosin HCl (Flomax) 0.8 mg PO DAILY [facility] Last Admin: 06/09/16 09:29 Dose: 0.8 mg Tramadol HCl (Ultram) 25 mg PO TID PRN PRN Reason: Pain, moderate (4-7) Last Admin: 06/06/16 12:59 Dose: 25 mg - Labs Labs: 06/05/16 07:14 06/05/16 07:14 - Constitutional Appears: Non-toxic, No Acute Distress, Cachectic - Head Exam Head Exam: ATRAUMATIC, NORMAL INSPECTION - Eye Exam Eye Exam: EOMI, Normal appearance, PERRL Pupil Exam: NORMAL ACCOMODATION - ENT Exam ENT Exam: Mucous Membranes Moist - Respiratory Exam Respiratory Exam: Clear to Ausculation Bilateral, NORMAL BREATHING PATTERN. absent: Respiratory Distress - Cardiovascular Exam Cardiovascular Exam: REGULAR RHYTHM, +S1, +S2 - GI/Abdominal Exam GI & Abdominal Exam: Soft, Normal Bowel Sounds. absent: Distended, Firm, Guarding, Tenderness - Extremities Exam Extremities Exam: Pedal Edema. absent: Calf Tenderness Additional comments: R hip pain, foot pain b/l - Back Exam Back Exam: NORMAL INSPECTION. absent: CVA tenderness (L), CVA tenderness (R), paraspinal tenderness - Neurological Exam Neurological Exam: Alert, Awake, Oriented x3 - Psychiatric Exam Psychiatric exam: Normal Affect, Normal Mood - Skin Skin Exam: Dry, Intact, Normal Color Assessment and Plan - Assessment and Plan (Free Text) Assessment: BPH;chronic -No plans from urology as of yet - possible Cysto later this week will - will follow up on Urology plans - Flomax 0.8 mg PO daily - Finasteride 5 mg PO daily - Urology Dr. Hughes on board - will f/u with recs concerning inpatient TURP - 05/18: Pyridium 200 mg PO TIDPC- discontinued Leg swelling -06/09: No changes - 05/23: will order left leg US to r/o DVT - negative for DVT or any other abnormalities - 05/20: venous doppler ordered - read as: No evidence of deep or superficial vein thrombosis of the right lower extremity with excellent venous flow. Normal valve function noted of the right side. Normal venous flow noted in the left common femoral vein. Fracture of tibia, proximal, right, closed; pain management and physical therapy -06/08- re-ordered PT eval - 06/08 - Stable - 05/31 - per ortho - Advance to 10% TTWB RLE, plan repeat xrays in 2 weeks and reassess, continue knee immobilizer, PT order updated - 05/29 - Cont to work with PT. Able to ambulate with walker, NWB on right LE. -05/27- cont current mgmt - 05/24 - continue with current management. - 05/20- ordered venous doppler right leg for swelling - results as above - 05/18- repeat xray with no significant change - 05/11- per ortho team: patient to remain non-weight bearing to right lower extremity - 05/09- right knee xrays ordered by orthopedics team- No acute fracture. Status post ORIF old patellar fracture No significant interval change compared to the prior examination Will follow up recommendations from orthopedics team - 05/05:Ortho Dr. Pino and Jayce West PA following- no orthopedic intervention indicated at this time, strict NWB, PT/OT - Impaction/insufficiency fracture, lateral aspect proximal tibia, non operative , treated with strict NWB and immobilization - At least 6 weeks old by imaging - Tylenol 650 mg PO Q6 PRN mild pain - Tramadol 25mg TID pRN - Daily physical therapy - Nonweight bearing on R leg - L knee x-ray: severe osteopenia. Sclerotic changes about the posterior proximal tibia may relate to a sclerotic healing response of a prior stress fracture here. no tibial plateau depressed fracture. The sclerosis is perceived on the prior 04/21 study; no interval pathology appreciated between 2 exams. If symptoms worsen consider MRI. 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 sclerosi about right acetabulum - daily physical therapy - PT 05/05: decline in transfers due to limitation from right hip and knee pain. patient still able to tolerate hallway ambulation, no episode of orthostatic hypotension post gait. recommending room/hallway ambulation w/ nursing for AM/ PM care or toileting. - PT 05/09: decline in function limited by persisting right groin/ hip and knee pain. patient still recommended for daily out of bed during am/pm care. cleared for ambulation in the room with standard walker non weight bearing right lower extremity - PT 05/10: mild decline in transfers due to pain in right knee and hip. NWB to RLE. Patient with episode of hypotension post ambulation- no syncope. - 05/16: discussed with PT. Patient function declining due to immobility. Patient needs to go from bed to chair. Patient should also be ambulating to the bathroom with assist. Patient becomes hypotensive with walking. - 05/17: patient assisted to chair. discussed with nursing the need for ambulation to and from bathroom with assistance as well as transfer from bed to chair Abdominal discomfort likely 2/ Constipation - 06/09- no abdominal pain reported, moving bowels - Lactulose, reports BMs - Monitor Facial rash - Stable - resembles seborrheic dermatitis, patient encouraged to moisturize - ESR 32 - CRP 1.51 - RA- negative - A&D ointment to face Orthostasis - 05/21: IV fluids- NS at 100cc/h - stopped - 05/16: Per PT, patient becomes hypotensive with exertion. adding sodium chloride tablets 1g daily - 05/05: -Supine BP: 114/71, HR 75 -Sitting BP: 113/71, HR 90 -Standing BP: 116/72, HR 94 Anemia; will monitor - 05/30: Hgb trending up - 05/26: may have a component of Fe deficiency, will replete - 05/25: Hgb still low, will get labs with Iron panel tomorrow - 05/22: Hgb 8.7, repeated and was 9.5 - 05/15: hgb 11.0 - chronic - monitor with weekly labs Abdominal Pain; resolved - 06/09- no abdominal pain reported, moving bowels - 05/24: less abd pain, reports BMs - 05/22: continues to complain of straining, will give one time miralax dose - 05/21: restart colace 100mg BID as patient straining to have BM - patient with multiple soft stools- will stop miralax for now - patient has been complaining of abdominal pain since admission - Colace 100mg PO BID - Dulcolax every 3 days - Inguinal hernia with unobstructed bowel loop involvement; protruded 04/18 due to straining on toilet. - 05/03/16 B/L inguinal hernias reduced today without incidence - Abdominal US 04/01: Gallstones, no acute cholecystitis, no hydronephrosis. trace ascites (see full report) - Abd/pelv CT 03/11: mod b/l pleural effusions and assoc consolidations; tiny probably gallstones within the gallbladder; small to moderate hiatal hernia; R inguinal hernia which contains small loops of bowel, likely small bowel- no evidence of obstruction as oral contrast is noted within R colon. No definite free air, however evaluation for pneumoperitoneum is suboptimal. Moderate to severe constipation with questionable impaction. Prostate gland 4.1cm x 4.6cm. Urinary bladder appears unremarkable. Small amount of fluid within a right inguinal hernia. Sclerosis of right iliac wing. Extensive anasarca. Aneursmal dilatation of ascending thoracic aorta; Currently 4.5 cm. Patient needs repeat Ct imaging every 6 months - last CT scan in 03/2016, should be monitored in September, Onychomycosis;chronic and improving - patient had aseptic debridement of toenails x 10 - clotrimazole cream to be applied to feet b/l BID - podiatry following Sacral decubitus- resolved - 05/17- sacrum examined- no sacral ulcers noted - 05/16: patient needs to go from bed to chair to prevent ulcers from re-forming - 04/19: exam revealed a previously healed decubitus ulcer of right buttocks. Sacral exam was clear. - Wound care following - recommending medihoney covered with bordered telfa dressing to right lower buttocks stage 2 pressure ulcer daily. - Pt is OOB to chair with help from PT daily - Order placed for turning patient Q2H History of Urinary Tract Infection - 06/09: No urinary complaints - 05/20: ordered repeat urine culture for urinary frequency - no growth (Final) - 05/17: urine culture negative - 05/16: + nitrates, 4 RBC, occasional bacteria. - urine culture 05/03- no growth - UA 05/05: +nitrates, occasional bacteria Diarrhea- resolved - 06/09: no complaints of diarrhea, complaining of bleeding w/BMs- buttock wound , Silvadene top ordered - 05/22 - resolved - culture negative - 05/18: c. diff negative, no salmonella - 05/17: ova and parasites negative Hypokalemia - Monitor - Replete as needed Syncopal Episode x1- resolved - 05/04/16 CTA- negative for PE (underlying atelectasis new findings compared to the prior study 03/20/2016.) Prophylactic Measure - Labs weekly - Lovenox 40mg SC daily - Pepcid 20mg PO BID - A and D ointment TOP Q*H - Patient is homeless. Used to stay with friend, but no longer welcome there. Goal is to walk with cane so he can go to a penitentiary (will not qualify with a walker) - patient will need to work with PT frequently - right calf with dark skin lesion underneath knee immobilizer- wound care on board- applying medihoney DISPO - Reaching out to family in [facility] - no response from family per case management - Social Work is following up - Cannot be discharged to penitentiary due to functional status - Continue to work with PT - No new changes to pt status or plan - Pallative care consulted - pt agrees to DNR/DNI- cont current medical mgmt, rec for Silvadene to buttock <Jose Wiggins - Last Filed: 06/10/16 17:47> Objective - Vital Signs/Intake and Output Vital Signs (last 24 hours): Temp Pulse Resp BP Pulse Ox 97.5 F L 72 20 111/71 98 06/10/16 16:00 06/10/16 16:00 06/10/16 16:00 06/10/16 16:00 06/10/16 16:00 Intake and Output: 06/10/16 06/10/16 06:59 18:59 Intake Total 360 450 Output Total 750 Balance -390 450 - Medications Medications: Current Medications Acetaminophen (Tylenol 325mg Tab) 650 mg PO Q6 [facility] Last Admin: 06/10/16 11:32 Dose: 650 mg Carbamide Peroxide (Debrox Ear Drops) 1 ml AU BID [facility] Last Admin: 06/10/16 10:25 Dose: 5 drop Clotrimazole (Lotrimin 1%) 0 gm TOP BID [facility] Last Admin: 06/10/16 10:23 Dose: 1 applic Docusate Sodium (Colace) 100 mg PO BID [facility] Last Admin: 06/10/16 10:21 Dose: 100 mg Enoxaparin Sodium (Lovenox) 40 mg SC DAILY [facility] Last Admin: 06/10/16 10:20 Dose: 40 mg Famotidine (Pepcid) 20 mg PO BID [facility] Last Admin: 06/10/16 10:21 Dose: 20 mg Magnesium Oxide (Mag-Ox) 400 mg PO BID [facility] Last Admin: 06/10/16 10:22 Dose: 400 mg Polyethylene Glycol (Miralax) 17 gm PO Q2D [facility] Last Admin: 06/10/16 13:33 Dose: Not Given Silver Sulfadiazine (Silvadene 1% 20 Gm) 0 ea TOP Q12H [facility] Last Admin: 06/10/16 04:41 Dose: 1 applic Sodium Chloride (Sodium Chloride Tab) 1 gm PO DAILY@1330 [facility] Last Admin: 06/10/16 13:33 Dose: 1 gm Tamsulosin HCl (Flomax) 0.8 mg PO DAILY [facility] Last Admin: 06/10/16 10:21 Dose: 0.8 mg Tramadol HCl (Ultram) 25 mg PO TID PRN PRN Reason: Pain, moderate (4-7) Last Admin: 06/10/16 08:14 Dose: 25 mg - Labs Labs: 06/05/16 07:14 06/05/16 07:14 Attending/Attestation - Attestation I have personally seen and examined this patient.: Yes I have fully participated in the care of the patient.: Yes I have reviewed all pertinent clinical information, including history, physical exam and plan: Yes Notes (Text): 06/10/16 17:46 Patient was seen and examined at bedside with the resident today Patient is sitting comfortably and offers no new complaints Diarrhea has improved Patient still has is present on the right lower extremity Continue physical therapy as per recommendations of orthopedics with limited weightbearing status Discussed the plan of care with the resident and agree with the above history and physical and assessment/plan by the resident.
[2016-06-10] MEDS: Silver Sulfadiazine 1% Cream (20 gm) TOP SCH ×2 (04:41→17:54)
[2016-06-10] MEDS: Tramadol 25 mg PO PRN (08:14)
[2016-06-10] MEDS: Enoxaparin 40 mg Syringe SC SCH (10:20)
[2016-06-10] MEDS: Magnesium Oxide 400 mg Tab UD PO SCH ×2 (10:22→17:54)
[2016-06-10] MEDS: Clotrimazole 1% Cream 15 GM TUBE TOP SCH ×2 (10:23→17:53)
[2016-06-10] MEDS: POLYETHYLENE GLYCOL 3350 17 GM/Dose PACKET PO SCH (13:33)
--- NOTE | 2016-06-11 01:13 | CP.PCM.PN ---
<Wyatt Nassar - Last Filed: 06/11/16 01:10> Subjective - Date & Time of Evaluation Date of Evaluation: 06/11/16 Time of Evaluation: 01:10 - Subjective Subjective: PGY-1 note for medicine service Pt seen and examined at bedside. Pt has no new complaints. Continues to state that he has pain in his right knee. Denies fevers, chills, chest pain, sob, nausea or vomiting. Objective - Vital Signs/Intake and Output Vital Signs (last 24 hours): Temp Pulse Resp BP Pulse Ox 97.5 F L 72 20 111/71 98 06/10/16 16:00 06/10/16 16:00 06/10/16 16:00 06/10/16 16:00 06/10/16 16:00 Intake and Output: 06/10/16 06/11/16 18:59 06:59 Intake Total 450 Balance 450 - Medications Medications: Current Medications Acetaminophen (Tylenol 325mg Tab) 650 mg PO Q6 PRN PRN Reason: Pain, Mild (1-3) Carbamide Peroxide (Debrox Ear Drops) 1 ml AU BID [facility] Last Admin: 06/10/16 17:51 Dose: 5 drop Clotrimazole (Lotrimin 1%) 0 gm TOP BID [facility] Last Admin: 06/10/16 17:53 Dose: 1 applic Docusate Sodium (Colace) 100 mg PO BID [facility] Last Admin: 06/10/16 17:54 Dose: 100 mg Enoxaparin Sodium (Lovenox) 40 mg SC DAILY [facility] Last Admin: 06/10/16 10:20 Dose: 40 mg Famotidine (Pepcid) 20 mg PO BID [facility] Last Admin: 06/10/16 17:54 Dose: 20 mg Magnesium Oxide (Mag-Ox) 400 mg PO BID [facility] Last Admin: 06/10/16 17:54 Dose: 400 mg Polyethylene Glycol (Miralax) 17 gm PO Q2D [facility] Last Admin: 06/10/16 13:33 Dose: Not Given Silver Sulfadiazine (Silvadene 1% 20 Gm) 0 ea TOP Q12H [facility] Last Admin: 06/10/16 17:54 Dose: 1 applic Sodium Chloride (Sodium Chloride Tab) 1 gm PO DAILY@1330 [facility] Last Admin: 06/10/16 13:33 Dose: 1 gm Tamsulosin HCl (Flomax) 0.8 mg PO DAILY [facility] Last Admin: 06/10/16 10:21 Dose: 0.8 mg Tramadol HCl (Ultram) 25 mg PO TID PRN PRN Reason: Pain, moderate (4-7) Last Admin: 06/10/16 08:14 Dose: 25 mg - Labs Labs: 06/05/16 07:14 06/05/16 07:14 - Constitutional Appears: Non-toxic, No Acute Distress - Eye Exam Eye Exam: Normal appearance - Respiratory Exam Respiratory Exam: Clear to Ausculation Bilateral, NORMAL BREATHING PATTERN - Cardiovascular Exam Cardiovascular Exam: +S1, +S2 - GI/Abdominal Exam GI & Abdominal Exam: Soft, Normal Bowel Sounds - Neurological Exam Neurological Exam: Alert, Awake - Skin Skin Exam: Dry, Warm Assessment and Plan - Assessment and Plan (Free Text) Assessment: BPH;chronic -No plans from urology as of yet - possible Cysto later this week will - will follow up on Urology plans - Flomax 0.8 mg PO daily - Finasteride 5 mg PO daily - Urology Dr. Hughes on board - will f/u with recs concerning inpatient TURP - 05/18: Pyridium 200 mg PO TIDPC- discontinued Leg swelling -06/09: No changes - 05/23: will order left leg US to r/o DVT - negative for DVT or any other abnormalities - 05/20: venous doppler ordered - read as: No evidence of deep or superficial vein thrombosis of the right lower extremity with excellent venous flow. Normal valve function noted of the right side. Normal venous flow noted in the left common femoral vein. Fracture of tibia, proximal, right, closed; pain management and physical therapy -06/08- re-ordered PT eval - 06/08 - Stable - 05/31 - per ortho - Advance to 10% TTWB RLE, plan repeat xrays in 2 weeks and reassess, continue knee immobilizer, PT order updated - 05/29 - Cont to work with PT. Able to ambulate with walker, NWB on right LE. -05/27- cont current mgmt - 05/24 - continue with current management. - 05/20- ordered venous doppler right leg for swelling - results as above - 05/18- repeat xray with no significant change - 05/11- per ortho team: patient to remain non-weight bearing to right lower extremity - 05/09- right knee xrays ordered by orthopedics team- No acute fracture. Status post ORIF old patellar fracture No significant interval change compared to the prior examination Will follow up recommendations from orthopedics team - 05/05:Ortho Dr. Pino and Jayce West PA following- no orthopedic intervention indicated at this time, strict NWB, PT/OT - Impaction/insufficiency fracture, lateral aspect proximal tibia, non operative , treated with strict NWB and immobilization - At least 6 weeks old by imaging - Tylenol 650 mg PO Q6 PRN mild pain - Tramadol 25mg TID pRN - Daily physical therapy - Nonweight bearing on R leg - L knee x-ray: severe osteopenia. Sclerotic changes about the posterior proximal tibia may relate to a sclerotic healing response of a prior stress fracture here. no tibial plateau depressed fracture. The sclerosis is perceived on the prior 04/21 study; no interval pathology appreciated between 2 exams. If symptoms worsen consider MRI. 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 sclerosi about right acetabulum - daily physical therapy - PT 05/05: decline in transfers due to limitation from right hip and knee pain. patient still able to tolerate hallway ambulation, no episode of orthostatic hypotension post gait. recommending room/hallway ambulation w/ nursing for AM/ PM care or toileting. - PT 05/09: decline in function limited by persisting right groin/ hip and knee pain. patient still recommended for daily out of bed during am/pm care. cleared for ambulation in the room with standard walker non weight bearing right lower extremity - PT 05/10: mild decline in transfers due to pain in right knee and hip. NWB to RLE. Patient with episode of hypotension post ambulation- no syncope. - 05/16: discussed with PT. Patient function declining due to immobility. Patient needs to go from bed to chair. Patient should also be ambulating to the bathroom with assist. Patient becomes hypotensive with walking. - 05/17: patient assisted to chair. discussed with nursing the need for ambulation to and from bathroom with assistance as well as transfer from bed to chair Abdominal discomfort likely 2/2 Constipation - 06/09- no abdominal pain reported, moving bowels - Lactulose, reports BMs - Monitor Facial rash - Stable - resembles seborrheic dermatitis, patient encouraged to moisturize - ESR 32 - CRP 1.51 - RA- negative - A&D ointment to face Orthostasis - 05/21: IV fluids- NS at 100cc/h - stopped - 05/16: Per PT, patient becomes hypotensive with exertion. adding sodium chloride tablets 1g daily - 05/05: -Supine BP: 114/71, HR 75 -Sitting BP: 113/71, HR 90 -Standing BP: 116/72, HR 94 Anemia; will monitor - 05/30: Hgb trending up - 05/26: may have a component of Fe deficiency, will replete - 05/25: Hgb still low, will get labs with Iron panel tomorrow - 05/22: Hgb 8.7, repeated and was 9.5 - 05/15: hgb 11.0 - chronic - monitor with weekly labs Abdominal Pain; resolved - 06/09- no abdominal pain reported, moving bowels - 05/24: less abd pain, reports BMs - 05/22: continues to complain of straining, will give one time miralax dose - 05/21: restart colace 100mg BID as patient straining to have BM - patient with multiple soft stools- will stop miralax for now - patient has been complaining of abdominal pain since admission - Colace 100mg PO BID - Dulcolax every 3 days - Inguinal hernia with unobstructed bowel loop involvement; protruded 04/18 due to straining on toilet. - 05/03/16 B/L inguinal hernias reduced today without incidence - Abdominal US 04/01: Gallstones, no acute cholecystitis, no hydronephrosis. trace ascites (see full report) - Abd/pelv CT 03/11: mod b/l pleural effusions and assoc consolidations; tiny probably gallstones within the gallbladder; small to moderate hiatal hernia; R inguinal hernia which contains small loops of bowel, likely small bowel- no evidence of obstruction as oral contrast is noted within R colon. No definite free air, however evaluation for pneumoperitoneum is suboptimal. Moderate to severe constipation with questionable impaction. Prostate gland 4.1cm x 4.6cm. Urinary bladder appears unremarkable. Small amount of fluid within a right inguinal hernia. Sclerosis of right iliac wing. Extensive anasarca. Aneursmal dilatation of ascending thoracic aorta; Currently 4.5 cm. Patient needs repeat Ct imaging every 6 months - last CT scan in 03/2016, should be monitored in September, Onychomycosis;chronic and improving - patient had aseptic debridement of toenails x 10 - clotrimazole cream to be applied to feet b/l BID - podiatry following Sacral decubitus- resolved - 05/17- sacrum examined- no sacral ulcers noted - 05/16: patient needs to go from bed to chair to prevent ulcers from re-forming - 04/19: exam revealed a previously healed decubitus ulcer of right buttocks. Sacral exam was clear. - Wound care following - recommending medihoney covered with bordered telfa dressing to right lower buttocks stage 2 pressure ulcer daily. - Pt is OOB to chair with help from PT daily - Order placed for turning patient Q2H History of Urinary Tract Infection - 06/09: No urinary complaints - 05/20: ordered repeat urine culture for urinary frequency - no growth (Final) - 05/17: urine culture negative - 05/16: + nitrates, 4 RBC, occasional bacteria. - urine culture 05/03- no growth - UA 05/05: +nitrates, occasional bacteria Diarrhea- resolved - 06/09: no complaints of diarrhea, complaining of bleeding w/BMs- buttock wound , Silvadene top ordered - 05/22 - resolved - culture negative - 05/18: c. diff negative, no salmonella - 05/17: ova and parasites negative Hypokalemia - Monitor - Replete as needed Syncopal Episode x1- resolved - 05/04/16 CTA- negative for PE (underlying atelectasis new findings compared to the prior study 03/20/2016.) Prophylactic Measure - Labs weekly - Lovenox 40mg SC daily - Pepcid 20mg PO BID - A and D ointment TOP Q*H - Patient is homeless. Used to stay with friend, but no longer welcome there. Goal is to walk with cane so he can go to a intermediate (will not qualify with a walker) - patient will need to work with PT frequently - right calf with dark skin lesion underneath knee immobilizer- wound care on board- applying medihoney DISPO - Reaching out to family in [facility] - no response from family per case management - Social Work is following up - Cannot be discharged to intermediate due to functional status - Continue to work with PT - No new changes to pt status or plan - Pallative care consulted - pt agrees to DNR/DNI- cont current medical mgmt, rec for Silvadene to buttock <Jose Wiggins - Last Filed: 06/11/16 14:24> Objective - Vital Signs/Intake and Output Vital Signs (last 24 hours): Temp Pulse Resp BP Pulse Ox 97.9 F 71 20 108/68 96 06/11/16 08:00 06/11/16 08:00 06/11/16 08:00 06/11/16 08:00 06/11/16 08:00 Intake and Output: 06/11/16 06/11/16 06:59 18:59 Intake Total 360 Output Total 600 Balance -240 - Medications Medications: Current Medications Acetaminophen (Tylenol 325mg Tab) 650 mg PO Q6 PRN PRN Reason: Pain, Mild (1-3) Carbamide Peroxide (Debrox Ear Drops) 1 ml AU BID [facility] Last Admin: 06/11/16 10:44 Dose: 5 drop Clotrimazole (Lotrimin 1%) 0 gm TOP BID [facility] Last Admin: 06/11/16 10:44 Dose: 1 applic Docusate Sodium (Colace) 100 mg PO BID [facility] Last Admin: 06/11/16 10:42 Dose: 100 mg Enoxaparin Sodium (Lovenox) 40 mg SC DAILY [facility] Last Admin: 06/11/16 10:42 Dose: 40 mg Famotidine (Pepcid) 20 mg PO BID [facility] Last Admin: 06/11/16 10:42 Dose: 20 mg Magnesium Oxide (Mag-Ox) 400 mg PO BID [facility] Last Admin: 06/11/16 10:42 Dose: 400 mg Polyethylene Glycol (Miralax) 17 gm PO Q2D [facility] Last Admin: 04/01/17 13:33 Dose: Not Given Silver Sulfadiazine (Silvadene 1% 20 Gm) 0 ea TOP Q12H [facility] Last Admin: 06/11/16 04:56 Dose: 1 applic Sodium Chloride (Sodium Chloride Tab) 1 gm PO DAILY@1330 [facility] Last Admin: 06/11/16 12:42 Dose: 1 gm Tamsulosin HCl (Flomax) 0.8 mg PO DAILY [facility] Last Admin: 06/11/16 10:42 Dose: 0.8 mg Tramadol HCl (Ultram) 25 mg PO TID PRN PRN Reason: Pain, moderate (4-7) Last Admin: 06/10/16 08:14 Dose: 25 mg - Labs Labs: 06/05/16 07:14 06/05/16 07:14 Attending/Attestation - Attestation I have personally seen and examined this patient.: Yes I have fully participated in the care of the patient.: Yes I have reviewed all pertinent clinical information, including history, physical exam and plan: Yes Notes (Text): 06/11/16 14:23 Patient was seen and examined at bedside today Patient has no new complaints Bilateral lower extremity swelling noted Keep his legs elevated while in bed patient to have physical therapy while in the hospital Discharge planning when patient is physically stronger No intervention proposed to by orthopedic surgery Awaiting further recommendations for urology for possible cystoscopy.
[2016-06-11] MEDS: Silver Sulfadiazine 1% Cream (20 gm) TOP SCH ×2 (04:56→17:44)
[2016-06-11] MEDS: Magnesium Oxide 400 mg Tab UD PO SCH ×2 (10:42→17:44)
[2016-06-11] MEDS: Enoxaparin 40 mg Syringe SC SCH (10:42)
[2016-06-11] MEDS: Clotrimazole 1% Cream 15 GM TUBE TOP SCH ×2 (10:44→17:44)
[2016-06-12] MEDS: Silver Sulfadiazine 1% Cream (20 gm) TOP SCH ×2 (03:45→18:18)
--- NOTE | 2016-06-12 07:45 | CP.PCM.PN ---
<Jesus ManuelKimberly - Last Filed: 06/13/16 18:10> Subjective - Date & Time of Evaluation Date of Evaluation: 06/12/16 Time of Evaluation: 07:00 - Subjective Subjective: PGY-[address] Cantu: Patient seen and examined at bedside this morning. No new complaints. Denies headache, changes in vision, fevers, chills, chest pain, sob, abd pain, nausea or vomiting, diarrhea/constipation. He is working with PT to increase physical activity. He is partial weight bearing and admits to using a walker to ambulate. He states he is out of bed sitting in the chair during the day. He admits to having soft bowel movements. He is tolerating his diet. Objective - Vital Signs/Intake and Output Vital Signs (last 24 hours): Temp Pulse Resp BP Pulse Ox 97.8 F 82 20 101/62 98 06/12/16 00:00 06/12/16 00:00 06/12/16 00:00 06/12/16 00:00 06/12/16 00:00 Intake and Output: 06/12/16 06/12/16 06:59 18:59 Intake Total 480 Balance 480 - Medications Medications: Current Medications Acetaminophen (Tylenol 325mg Tab) 650 mg PO Q6 PRN PRN Reason: Pain, Mild (1-3) Carbamide Peroxide (Debrox Ear Drops) 1 ml AU BID [facility] Last Admin: 06/11/16 17:43 Dose: 5 drop Clotrimazole (Lotrimin 1%) 0 gm TOP BID [facility] Last Admin: 06/11/16 17:44 Dose: 1 applic Docusate Sodium (Colace) 100 mg PO BID [facility] Last Admin: 06/11/16 17:44 Dose: 100 mg Enoxaparin Sodium (Lovenox) 40 mg SC DAILY [facility] Last Admin: 06/11/16 10:42 Dose: 40 mg Famotidine (Pepcid) 20 mg PO BID [facility] Last Admin: 06/11/16 17:44 Dose: 20 mg Magnesium Oxide (Mag-Ox) 400 mg PO BID [facility] Last Admin: 06/11/16 17:44 Dose: 400 mg Polyethylene Glycol (Miralax) 17 gm PO Q2D [facility] Last Admin: 06/10/16 13:33 Dose: Not Given Silver Sulfadiazine (Silvadene 1% 20 Gm) 0 ea TOP Q12H [facility] Last Admin: 06/12/16 03:45 Dose: 1 applic Sodium Chloride (Sodium Chloride Tab) 1 gm PO DAILY@1330 [facility] Last Admin: 06/11/16 12:42 Dose: 1 gm Tamsulosin HCl (Flomax) 0.8 mg PO DAILY [facility] Last Admin: 06/11/16 10:42 Dose: 0.8 mg Tramadol HCl (Ultram) 25 mg PO TID PRN PRN Reason: Pain, moderate (4-7) Last Admin: 06/10/16 08:14 Dose: 25 mg - Labs Labs: 06/05/16 07:14 06/05/16 07:14 - Constitutional Appears: Non-toxic, No Acute Distress, Cachectic, Chronically Ill - Head Exam Head Exam: ATRAUMATIC, NORMAL INSPECTION - Eye Exam Eye Exam: EOMI, Normal appearance, PERRL Pupil Exam: NORMAL ACCOMODATION - Respiratory Exam Respiratory Exam: Clear to Ausculation Bilateral, NORMAL BREATHING PATTERN. absent: Respiratory Distress - Cardiovascular Exam Cardiovascular Exam: REGULAR RHYTHM, +S1, +S2 - GI/Abdominal Exam GI & Abdominal Exam: Soft, Normal Bowel Sounds. absent: Distended, Firm, Guarding, Tenderness - Extremities Exam Extremities Exam: Normal Inspection, Pedal Edema. absent: Calf Tenderness Additional comments: Tenerness to L hip - Back Exam Back Exam: NORMAL INSPECTION. absent: CVA tenderness (L), CVA tenderness (R), paraspinal tenderness - Neurological Exam Neurological Exam: Alert, Awake, CN II-XII Intact, Oriented x3 - Psychiatric Exam Psychiatric exam: Normal Affect, Normal Mood - Skin Skin Exam: Dry, Normal Color, Warm. absent: Intact Assessment and Plan - Assessment and Plan (Free Text) Assessment: BPH;chronic -No plans from urology as of yet - possible Cysto - Flomax 0.8 mg PO daily - Finasteride 5 mg PO daily - Urology Dr. Hughes on board - will f/u with recs concerning inpatient TURP - 05/18: Pyridium 200 mg PO TIDPC- discontinued Leg swelling -06/09: No changes - 05/23: will order left leg US to r/o DVT - negative for DVT or any other abnormalities - 05/20: venous doppler ordered - read as: No evidence of deep or superficial vein thrombosis of the right lower extremity with excellent venous flow. Normal valve function noted of the right side. Normal venous flow noted in the left common femoral vein. Fracture of tibia, proximal, right, closed; pain management and physical therapy -06/08- re-ordered PT eval - 06/08 - Stable - 05/31 - per ortho - Advance to 10% TTWB RLE, plan repeat xrays in 2 weeks and reassess, continue knee immobilizer, PT order updated - 05/29 - Cont to work with PT. Able to ambulate with walker, NWB on right LE. -05/27- cont current mgmt - 05/24 - continue with current management. - 05/20- ordered venous doppler right leg for swelling - results as above - 05/18- repeat xray with no significant change - 05/11- per ortho team: patient to remain non-weight bearing to right lower extremity - 05/09- right knee xrays ordered by orthopedics team- No acute fracture. Status post ORIF old patellar fracture No significant interval change compared to the prior examination Will follow up recommendations from orthopedics team - 05/05:Ortho Dr. Pino and Jayce West PA following- no orthopedic intervention indicated at this time, strict NWB, PT/OT - Impaction/insufficiency fracture, lateral aspect proximal tibia, non operative , treated with strict NWB and immobilization - At least 6 weeks old by imaging - Tylenol 650 mg PO Q6 PRN mild pain - Tramadol 25mg TID pRN - Daily physical therapy - Nonweight bearing on R leg - L knee x-ray: severe osteopenia. Sclerotic changes about the posterior proximal tibia may relate to a sclerotic healing response of a prior stress fracture here. no tibial plateau depressed fracture. The sclerosis is perceived on the prior 04/21 study; no interval pathology appreciated between 2 exams. If symptoms worsen consider MRI. 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 sclerosi about right acetabulum - daily physical therapy - PT 05/05: decline in transfers due to limitation from right hip and knee pain. patient still able to tolerate hallway ambulation, no episode of orthostatic hypotension post gait. recommending room/hallway ambulation w/ nursing for AM/ PM care or toileting. - PT 05/09: decline in function limited by persisting right groin/ hip and knee pain. patient still recommended for daily out of bed during am/pm care. cleared for ambulation in the room with standard walker non weight bearing right lower extremity - PT 05/10: mild decline in transfers due to pain in right knee and hip. NWB to RLE. Patient with episode of hypotension post ambulation- no syncope. - 05/16: discussed with PT. Patient function declining due to immobility. Patient needs to go from bed to chair. Patient should also be ambulating to the bathroom with assist. Patient becomes hypotensive with walking. - 05/17: patient assisted to chair. discussed with nursing the need for ambulation to and from bathroom with assistance as well as transfer from bed to chair Abdominal discomfort likely 04/13 Constipation - 06/09- no abdominal pain reported, moving bowels - Lactulose, reports BMs - Monitor Facial rash - Stable - resembles seborrheic dermatitis, patient encouraged to moisturize - ESR 32 - CRP 1.51 - RA- negative - A&D ointment to face Orthostasis - 05/21: IV fluids- NS at 100cc/h - stopped - 05/16: Per PT, patient becomes hypotensive with exertion. adding sodium chloride tablets 1g daily - 05/05: -Supine BP: 114/71, HR 75 -Sitting BP: 113/71, HR 90 -Standing BP: 116/72, HR 94 Anemia; will monitor - 06/12 - Hgb 10.4, improving - 05/30: Hgb trending up - 05/26: may have a component of Fe deficiency, will replete - 05/25: Hgb still low, will get labs with Iron panel tomorrow - 05/22: Hgb 8.7, repeated and was 9.5 - 05/15: hgb 11.0 - chronic - monitor with weekly labs Abdominal Pain; resolved - 06/09- no abdominal pain reported, moving bowels - 05/24: less abd pain, reports BMs - 05/22: continues to complain of straining, will give one time miralax dose - 05/21: restart colace 100mg BID as patient straining to have BM - patient with multiple soft stools- will stop miralax for now - patient has been complaining of abdominal pain since admission - Colace 100mg PO BID - Dulcolax every 3 days - Inguinal hernia with unobstructed bowel loop involvement; protruded 04/18 due to straining on toilet. - 05/03/16 B/L inguinal hernias reduced today without incidence - Abdominal US 04/01: Gallstones, no acute cholecystitis, no hydronephrosis. trace ascites (see full report) - Abd/pelv CT 03/11: mod b/l pleural effusions and assoc consolidations; tiny probably gallstones within the gallbladder; small to moderate hiatal hernia; R inguinal hernia which contains small loops of bowel, likely small bowel- no evidence of obstruction as oral contrast is noted within R colon. No definite free air, however evaluation for pneumoperitoneum is suboptimal. Moderate to severe constipation with questionable impaction. Prostate gland 4.1cm x 4.6cm. Urinary bladder appears unremarkable. Small amount of fluid within a right inguinal hernia. Sclerosis of right iliac wing. Extensive anasarca. Aneursmal dilatation of ascending thoracic aorta; Currently 4.5 cm. Patient needs repeat Ct imaging every 6 months - last CT scan in 03/2016, should be monitored in September, Onychomycosis;chronic and improving - patient had aseptic debridement of toenails x 10 - clotrimazole cream to be applied to feet b/l BID - podiatry following Sacral decubitus- resolved - 05/17- sacrum examined- no sacral ulcers noted - 05/16: patient needs to go from bed to chair to prevent ulcers from re-forming - 04/19: exam revealed a previously healed decubitus ulcer of right buttocks. Sacral exam was clear. - Wound care following - recommending medihoney covered with bordered telfa dressing to right lower buttocks stage 2 pressure ulcer daily. - Pt is OOB to chair with help from PT daily - Order placed for turning patient Q2H History of Urinary Tract Infection - 06/09: No urinary complaints - 05/20: ordered repeat urine culture for urinary frequency - no growth (Final) - 05/17: urine culture negative - 05/16: + nitrates, 4 RBC, occasional bacteria. - urine culture 05/03- no growth - UA 05/05: +nitrates, occasional bacteria Diarrhea- resolved - 06/09: no complaints of diarrhea, complaining of bleeding w/BMs- buttock wound , Silvadene top ordered - 05/22 - resolved - culture negative - 05/18: c. diff negative, no salmonella - 05/17: ova and parasites negative Hypokalemia - Monitor - Replete as needed Syncopal Episode x1- resolved - 05/04/16 CTA- negative for PE (underlying atelectasis new findings compared to the prior study 03/20/2016.) Prophylactic Measure - Labs weekly - Lovenox 40mg SC daily - Pepcid 20mg PO BID - A and D ointment TOP Q*H - Patient is homeless. Used to stay with friend, but no longer welcome there. Goal is to walk with cane so he can go to a long term (will not qualify with a walker) - patient will need to work with PT frequently - right calf with dark skin lesion underneath knee immobilizer- wound care on board- applying medihoney DISPO - Reaching out to family in [facility] - no response from family per case management - Social Work is following up - Cannot be discharged to long term due to functional status - Continue to work with PT - No new changes to pt status or plan - Palliative care consulted - pt agrees to DNR/DNI- cont current medical mgmt, rec for Silvadene to buttock <Parker Cantu - Last Filed: 07/12/16 12:24> Objective - Vital Signs/Intake and Output Vital Signs (last 24 hours): Temp Pulse Resp BP Pulse Ox 98.3 F 82 20 102/64 96 07/12/16 09:22 07/12/16 09:22 07/12/16 09:22 07/12/16 09:22 07/12/16 09:22 Intake and Output: 07/12/16 07/12/16 06:59 18:59 Output Total 200 Balance -200 - Medications Medications: Current Medications Acetaminophen (Tylenol 325mg Tab) 650 mg PO Q6 PRN PRN Reason: Pain, Mild (1-3) Last Admin: 07/02/16 21:37 Dose: 650 mg Docusate Sodium (Colace) 100 mg PO BID [facility] Last Admin: 06/30/16 09:13 Dose: Not Given Enoxaparin Sodium (Lovenox) 40 mg SC DAILY [facility] Last Admin: 07/12/16 10:04 Dose: 40 mg Famotidine (Pepcid) 20 mg PO BID [facility] Last Admin: 07/12/16 10:04 Dose: 20 mg Ketoconazole (Nizoral) 0 gm TOP BID [facility] Last Admin: 07/12/16 10:04 Dose: 1 applic Loperamide HCl (Imodium) 2 mg PO QID PRN PRN Reason: Diarrhea Last Admin: 07/01/16 20:22 Dose: 2 mg Magnesium Oxide (Mag-Ox) 400 mg PO BID [facility] Last Admin: 07/12/16 10:04 Dose: 400 mg Polyethylene Glycol (Miralax) 17 gm PO Q2D [facility] Last Admin: 06/29/16 10:44 Dose: Not Given Sodium Chloride (Sodium Chloride Tab) 1 gm PO DAILY@1330 [facility] Last Admin: 07/11/16 14:32 Dose: 1 gm Tamsulosin HCl (Flomax) 0.8 mg PO DAILY [facility] Last Admin: 07/12/16 10:04 Dose: 0.8 mg Tramadol HCl (Ultram) 25 mg PO TID PRN PRN Reason: Pain, moderate (4-7) Last Admin: 07/10/16 09:21 Dose: 25 mg - Labs Labs: 07/10/16 12:53 07/10/16 09:22 Attending/Attestation - Attestation I have personally seen and examined this patient.: Yes I have fully participated in the care of the patient.: Yes I have reviewed all pertinent clinical information, including history, physical exam and plan: Yes Notes (Text): Patient seen and examined with the resident. Agree with the resident's evaluation, assessment and plan. BPH chronic Leg swelling Fracture of tibia, proximal, right, closed
[2016-06-12] MEDS: Enoxaparin 40 mg Syringe SC SCH (10:22)
[2016-06-12] MEDS: Magnesium Oxide 400 mg Tab UD PO SCH ×2 (10:23→18:18)
[2016-06-12] MEDS: Clotrimazole 1% Cream 15 GM TUBE TOP SCH ×2 (10:32→18:17)
[2016-06-12] MEDS: POLYETHYLENE GLYCOL 3350 17 GM/Dose PACKET PO SCH (15:26)
[2016-06-12 17:21] LABS: BASO % 0.3 % (0.0-2.0); EOS # 0.1 K/uL (0.0-0.7); EOS % 1.5 % (0.0-4.0); HEMOGLOBIN 10.9 g/dL (12.0-18.0); LYMPH # 1.6 K/uL (1.0-4.3); LYMPH % 24.9 % (20.0-40.0); MEAN CELL VOLUME 99.3 fL (80.0-94.0); MEAN CORPUSCULAR HEMOGLOBIN 32.6 pg (27.0-31.0); MEAN CORPUSCULAR HGB CONC 32.8 g/dL (33.0-37.0); MEAN PLATELET VOLUME 8.1 fL (7.2-11.7); MONO # 0.6 K/uL (0.0-0.8); MONO % 10.1 % (0.0-10.0); NEUT # 4.1 K/uL (1.8-7.0); NEUT % 63.2 % (50.0-75.0); RBC 3.35 Mil/uL (4.40-5.90); RED CELL DISTRIBUTION WIDTH 13.3 % (11.5-14.5); WHITE BLOOD COUNT 6.4 K/uL (4.8-10.8)
[2016-06-12 17:34] LABS: ALBUMIN 3.7 g/dL (3.5-5.0)
[2016-06-12 17:37] LABS: AST/SGOT 18 U/L (17-59); BLOOD UREA NITROGEN 14 mg/dL (9-20); GFR AFRICAN-AMERICAN > 60; GFR NON-AFRICAN AMERICAN > 60
[2016-06-12 17:38] LABS: ALT/SGPT 12 U/L (21-72); CALCIUM 8.6 mg/dl (8.6-10.4); MAGNESIUM 1.9 mg/dL (1.6-2.3)
[2016-06-13] MEDS: Silver Sulfadiazine 1% Cream (20 gm) TOP SCH ×2 (04:12→17:43)
[2016-06-13] MEDS: Magnesium Oxide 400 mg Tab UD PO SCH ×2 (11:21→18:00)
[2016-06-13] MEDS: Enoxaparin 40 mg Syringe SC SCH (11:22)
[2016-06-13] MEDS: Clotrimazole 1% Cream 15 GM TUBE TOP SCH ×2 (11:25→17:43)
--- NOTE | 2016-06-13 16:01 | RAD ---
PROCEDURE: Right knee HISTORY: f/u lateral tibia stress fx COMPARISON: 06/06/2016. TECHNIQUE: Standard protocol for this study/examination. FINDINGS: No acute fractures. Stable postoperative findings related to surgical repair of old patellar fracture. Profound disuse osteopenia. IMPRESSION: No significant interval change compared to the prior examination(s).
[2016-06-14] MEDS: Silver Sulfadiazine 1% Cream (20 gm) TOP SCH ×2 (04:38→21:17)
--- NOTE | 2016-06-14 07:10 | CP.PCM.PN ---
<Kimberly Ken - Last Filed: 06/14/16 14:18> Subjective - Date & Time of Evaluation Date of Evaluation: 06/14/16 Time of Evaluation: 07:05 - Subjective Subjective: PGY-[address] Garcia: Patient seen and examined at bedside this morning. No new complaints. He admits to the same chronic pain in his feet bilaterally and in his left hip. Denies headache, changes in vision, fevers, chills, chest pain, sob, abd pain, nausea or vomiting, diarrhea/constipation. He is working with PT to increase physical activity. He is partial weight bearing and admits to using a walker to ambulate. He states he is out of bed sitting in the chair during the day. He admits to having soft bowel movements. He is tolerating his diet. Objective - Vital Signs/Intake and Output Vital Signs (last 24 hours): Temp Pulse Resp BP Pulse Ox 98.1 F 71 20 103/65 96 06/14/16 00:46 06/14/16 00:46 06/14/16 00:46 06/14/16 00:46 06/14/16 00:46 Intake and Output: 06/14/16 06/14/16 06:59 18:59 Intake Total 240 Output Total 550 Balance -310 - Medications Medications: Current Medications Acetaminophen (Tylenol 325mg Tab) 650 mg PO Q6 PRN PRN Reason: Pain, Mild (1-3) Last Admin: 06/14/16 01:00 Dose: 650 mg Carbamide Peroxide (Debrox Ear Drops) 1 ml AU BID [facility] Last Admin: 06/13/16 17:43 Dose: 5 drop Clotrimazole (Lotrimin 1%) 0 gm TOP BID [facility] Last Admin: 06/13/16 17:43 Dose: 1 applic Docusate Sodium (Colace) 100 mg PO BID [facility] Last Admin: 06/13/16 17:43 Dose: 100 mg Enoxaparin Sodium (Lovenox) 40 mg SC DAILY [facility] Last Admin: 06/13/16 11:22 Dose: 40 mg Famotidine (Pepcid) 20 mg PO BID [facility] Last Admin: 06/13/16 17:44 Dose: 20 mg Magnesium Oxide (Mag-Ox) 400 mg PO BID [facility] Last Admin: 06/13/16 11:21 Dose: 400 mg Polyethylene Glycol (Miralax) 17 gm PO Q2D [facility] Last Admin: 06/12/16 15:26 Dose: 17 gm Silver Sulfadiazine (Silvadene 1% 20 Gm) 0 ea TOP Q12H [facility] Last Admin: 06/14/16 04:38 Dose: 1 applic Sodium Chloride (Sodium Chloride Tab) 1 gm PO DAILY@1330 [facility] Last Admin: 06/13/16 14:29 Dose: 1 gm Tamsulosin HCl (Flomax) 0.8 mg PO DAILY [facility] Last Admin: 06/13/16 11:21 Dose: 0.8 mg Tramadol HCl (Ultram) 25 mg PO TID PRN PRN Reason: Pain, moderate (4-7) Last Admin: 06/10/16 08:14 Dose: 25 mg - Labs Labs: 06/12/16 17:11 06/12/16 17:11 - Constitutional Appears: Non-toxic, No Acute Distress, Cachectic, Chronically Ill - Head Exam Head Exam: ATRAUMATIC, NORMAL INSPECTION - Eye Exam Eye Exam: EOMI, Normal appearance, PERRL Pupil Exam: NORMAL ACCOMODATION - ENT Exam ENT Exam: Mucous Membranes Moist - Respiratory Exam Respiratory Exam: Clear to Ausculation Bilateral, NORMAL BREATHING PATTERN. absent: Accessory Muscle Use, Chest Wall Tenderness, Rales, Wheezes, Respiratory Distress - Cardiovascular Exam Cardiovascular Exam: REGULAR RHYTHM, +S1, +S2 - GI/Abdominal Exam GI & Abdominal Exam: Soft, Normal Bowel Sounds. absent: Distended, Firm, Guarding, Tenderness - Extremities Exam Additional comments: + left hip tenderness - Back Exam Back Exam: NORMAL INSPECTION. absent: CVA tenderness (L), CVA tenderness (R), paraspinal tenderness - Neurological Exam Neurological Exam: Alert, Awake, CN II-XII Intact, Oriented x3 - Psychiatric Exam Psychiatric exam: Normal Affect, Normal Mood - Skin Skin Exam: Dry, Intact, Normal Color, Warm Assessment and Plan - Assessment and Plan (Free Text) Assessment: BPH;chronic -No plans from urology as of yet - possible Cysto - Flomax 0.8 mg PO daily - Finasteride 5 mg PO daily - Urology Dr. Hughes on board - will f/u with recs concerning inpatient TURP - 05/18: Pyridium 200 mg PO TIDPC- discontinued Leg swelling -06/09: No changes - 3/14: will order left leg US to r/o DVT - negative for DVT or any other abnormalities - 05/20: venous doppler ordered - read as: No evidence of deep or superficial vein thrombosis of the right lower extremity with excellent venous flow. Normal valve function noted of the right side. Normal venous flow noted in the left common femoral vein. Fracture of tibia, proximal, right, closed; pain management and physical therapy -06/08- re-ordered PT eval - 06/08 - Stable - 05/31 - per ortho - Advance to 10% TTWB RLE, plan repeat xrays in 2 weeks and reassess, continue knee immobilizer, PT order updated - 05/29 - Cont to work with PT. Able to ambulate with walker, NWB on right LE. -05/27- cont current mgmt - 05/24 - continue with current management. - 05/20- ordered venous doppler right leg for swelling - results as above - 05/18- repeat xray with no significant change - 05/11- per ortho team: patient to remain non-weight bearing to right lower extremity - 05/09- right knee xrays ordered by orthopedics team- No acute fracture. Status post ORIF old patellar fracture No significant interval change compared to the prior examination Will follow up recommendations from orthopedics team - 05/05:Ortho Dr. Pino and Jayce West PA following- no orthopedic intervention indicated at this time, strict NWB, PT/OT - Impaction/insufficiency fracture, lateral aspect proximal tibia, non operative , treated with strict NWB and immobilization - At least 6 weeks old by imaging - Tylenol 650 mg PO Q6 PRN mild pain - Tramadol 25mg TID pRN - Daily physical therapy - Nonweight bearing on R leg - L knee x-ray: severe osteopenia. Sclerotic changes about the posterior proximal tibia may relate to a sclerotic healing response of a prior stress fracture here. no tibial plateau depressed fracture. The sclerosis is perceived on the prior 04/21 study; no interval pathology appreciated between 2 exams. If symptoms worsen consider MRI. 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 sclerosi about right acetabulum - daily physical therapy - PT 05/05: decline in transfers due to limitation from right hip and knee pain. patient still able to tolerate hallway ambulation, no episode of orthostatic hypotension post gait. recommending room/hallway ambulation w/ nursing for AM/ PM care or toileting. - PT 05/09: decline in function limited by persisting right groin/ hip and knee pain. patient still recommended for daily out of bed during am/pm care. cleared for ambulation in the room with standard walker non weight bearing right lower extremity - PT 05/10: mild decline in transfers due to pain in right knee and hip. NWB to RLE. Patient with episode of hypotension post ambulation- no syncope. - 05/16: discussed with PT. Patient function declining due to immobility. Patient needs to go from bed to chair. Patient should also be ambulating to the bathroom with assist. Patient becomes hypotensive with walking. - 05/17: patient assisted to chair. discussed with nursing the need for ambulation to and from bathroom with assistance as well as transfer from bed to chair Abdominal discomfort likely 2/2 Constipation - 06/09- no abdominal pain reported, moving bowels - Lactulose, reports BMs - Monitor Facial rash - Stable - resembles seborrheic dermatitis, patient encouraged to moisturize - ESR 32 - CRP 1.51 - RA- negative - A&D ointment to face Orthostasis - 05/21: IV fluids- NS at 100cc/h - stopped - 05/16: Per PT, patient becomes hypotensive with exertion. adding sodium chloride tablets 1g daily - 05/05: -Supine BP: 114/71, HR 75 -Sitting BP: 113/71, HR 90 -Standing BP: 116/72, HR 94 Anemia; will monitor - 06/12 - Hgb 10.4, improving - 05/30: Hgb trending up - 05/26: may have a component of Fe deficiency, will replete - 05/25: Hgb still low, will get labs with Iron panel tomorrow - 05/22: Hgb 8.7, repeated and was 9.5 - 05/15: hgb 11.0 - chronic - monitor with weekly labs Abdominal Pain; resolved - 06/09- no abdominal pain reported, moving bowels - 05/24: less abd pain, reports BMs - 05/22: continues to complain of straining, will give one time miralax dose - 05/21: restart colace 100mg BID as patient straining to have BM - patient with multiple soft stools- will stop miralax for now - patient has been complaining of abdominal pain since admission - Colace 100mg PO BID - Dulcolax every 3 days - Inguinal hernia with unobstructed bowel loop involvement; protruded 04/18 due to straining on toilet. - 05/03/16 B/L inguinal hernias reduced today without incidence - Abdominal US 04/01: Gallstones, no acute cholecystitis, no hydronephrosis. trace ascites (see full report) - Abd/pelv CT 03/11: mod b/l pleural effusions and assoc consolidations; tiny probably gallstones within the gallbladder; small to moderate hiatal hernia; R inguinal hernia which contains small loops of bowel, likely small bowel- no evidence of obstruction as oral contrast is noted within R colon. No definite free air, however evaluation for pneumoperitoneum is suboptimal. Moderate to severe constipation with questionable impaction. Prostate gland 4.1cm x 4.6cm. Urinary bladder appears unremarkable. Small amount of fluid within a right inguinal hernia. Sclerosis of right iliac wing. Extensive anasarca. Aneursmal dilatation of ascending thoracic aorta; Currently 4.5 cm. Patient needs repeat Ct imaging every 6 months - last CT scan in 03/2016, should be monitored in September, Onychomycosis;chronic and improving - patient had aseptic debridement of toenails x 10 - clotrimazole cream to be applied to feet b/l BID - podiatry following Sacral decubitus- resolved - 05/17- sacrum examined- no sacral ulcers noted - 05/16: patient needs to go from bed to chair to prevent ulcers from re-forming - 04/19: exam revealed a previously healed decubitus ulcer of right buttocks. Sacral exam was clear. - Wound care following - recommending medihoney covered with bordered telfa dressing to right lower buttocks stage 2 pressure ulcer daily. - Pt is OOB to chair with help from PT daily - Order placed for turning patient Q2H History of Urinary Tract Infection - 06/09: No urinary complaints - 05/20: ordered repeat urine culture for urinary frequency - no growth (Final) - 05/17: urine culture negative - 05/16: + nitrates, 4 RBC, occasional bacteria. - urine culture 05/03- no growth - UA 05/05: +nitrates, occasional bacteria Diarrhea- resolved - 06/09: no complaints of diarrhea, complaining of bleeding w/BMs- buttock wound , Silvadene top ordered - 05/22 - resolved - culture negative - 05/18: c. diff negative, no salmonella - 05/17: ova and parasites negative Hypokalemia - Monitor - Replete as needed Syncopal Episode x1- resolved - 05/04/16 CTA- negative for PE (underlying atelectasis new findings compared to the prior study 03/20/2016.) Prophylactic Measure - Labs weekly - Lovenox 40mg SC daily - Pepcid 20mg PO BID - A and D ointment TOP Q*H - Patient is homeless. Used to stay with friend, but no longer welcome there. Goal is to walk with cane so he can go to a prison (will not qualify with a walker) - patient will need to work with PT frequently - right calf with dark skin lesion underneath knee immobilizer- wound care on board- applying medihoney DISPO - Reaching out to family in [facility] - no response from family per case management - Social Work is following up - Cannot be discharged to prison due to functional status - Continue to work with PT - No new changes to pt status or plan - Palliative care consulted - pt agrees to DNR/DNI- cont current medical mgmt, rec for Silvadene to buttock <Parker Cantu - Last Filed: 07/12/16 12:25> Objective - Vital Signs/Intake and Output Vital Signs (last 24 hours): Temp Pulse Resp BP Pulse Ox 98.3 F 82 20 102/64 96 07/12/16 09:22 07/12/16 09:22 07/12/16 09:22 07/12/16 09:22 07/12/16 09:22 Intake and Output: 07/12/16 07/12/16 06:59 18:59 Output Total 200 Balance -200 - Medications Medications: Current Medications Acetaminophen (Tylenol 325mg Tab) 650 mg PO Q6 PRN PRN Reason: Pain, Mild (1-3) Last Admin: 07/02/16 21:37 Dose: 650 mg Docusate Sodium (Colace) 100 mg PO BID [facility] Last Admin: 06/30/16 09:13 Dose: Not Given Enoxaparin Sodium (Lovenox) 40 mg SC DAILY [facility] Last Admin: 07/12/16 10:04 Dose: 40 mg Famotidine (Pepcid) 20 mg PO BID [facility] Last Admin: 07/12/16 10:04 Dose: 20 mg Ketoconazole (Nizoral) 0 gm TOP BID [facility] Last Admin: 07/12/16 10:04 Dose: 1 applic Loperamide HCl (Imodium) 2 mg PO QID PRN PRN Reason: Diarrhea Last Admin: 07/01/16 20:22 Dose: 2 mg Magnesium Oxide (Mag-Ox) 400 mg PO BID [facility] Last Admin: 07/12/16 10:04 Dose: 400 mg Polyethylene Glycol (Miralax) 17 gm PO Q2D [facility] Last Admin: 06/29/16 10:44 Dose: Not Given Sodium Chloride (Sodium Chloride Tab) 1 gm PO DAILY@1330 [facility] Last Admin: 07/11/16 14:32 Dose: 1 gm Tamsulosin HCl (Flomax) 0.8 mg PO DAILY [facility] Last Admin: 07/12/16 10:04 Dose: 0.8 mg Tramadol HCl (Ultram) 25 mg PO TID PRN PRN Reason: Pain, moderate (4-7) Last Admin: 07/10/16 09:21 Dose: 25 mg - Labs Labs: 07/10/16 12:53 07/10/16 09:22 Attending/Attestation - Attestation I have personally seen and examined this patient.: Yes I have fully participated in the care of the patient.: Yes I have reviewed all pertinent clinical information, including history, physical exam and plan: Yes Notes (Text): Patient seen and examined with the resident. Agree with the resident's evaluation, assessment and plan. BPH chronic Leg swelling Fracture of tibia, proximal, right, closed
[2016-06-14] MEDS: Clotrimazole 1% Cream 15 GM TUBE TOP SCH ×2 (11:35→21:17)
[2016-06-14] MEDS: Enoxaparin 40 mg Syringe SC SCH (11:36)
[2016-06-14] MEDS: Magnesium Oxide 400 mg Tab UD PO SCH ×2 (11:38→19:00)
[2016-06-14] MEDS: POLYETHYLENE GLYCOL 3350 17 GM/Dose PACKET PO SCH ×2 (11:39→14:25)
[2016-06-15] MEDS: Silver Sulfadiazine 1% Cream (20 gm) TOP SCH ×2 (04:16→17:41)
--- NOTE | 2016-06-15 07:24 | CP.PCM.PN ---
Subjective - Date & Time of Evaluation Date of Evaluation: 06/15/16 Time of Evaluation: 11:55 - Subjective Subjective: Patient complaining of hip pain and left heel pain, especially when walking. Objective - Vital Signs/Intake and Output Vital Signs (last 24 hours): Temp Pulse Resp BP Pulse Ox 98.4 F 72 20 103/62 95 06/15/16 02:00 06/15/16 02:00 06/15/16 02:00 06/15/16 02:00 06/15/16 02:00 Intake and Output: 06/15/16 06/15/16 06:59 18:59 Intake Total 250 Output Total 400 Balance -150 - Medications Medications: Current Medications Acetaminophen (Tylenol 325mg Tab) 650 mg PO Q6 PRN PRN Reason: Pain, Mild (1-3) Last Admin: 06/14/16 01:00 Dose: 650 mg Carbamide Peroxide (Debrox Ear Drops) 1 ml AU BID [facility] Last Admin: 06/14/16 21:19 Dose: 5 drop Clotrimazole (Lotrimin 1%) 0 gm TOP BID [facility] Last Admin: 06/14/16 21:17 Dose: 1 applic Docusate Sodium (Colace) 100 mg PO BID [facility] Last Admin: 06/14/16 21:15 Dose: 100 mg Famotidine (Pepcid) 20 mg PO BID [facility] Last Admin: 06/14/16 21:15 Dose: 20 mg Heparin Sodium (Porcine) (Heparin) 5,000 units SC Q8 [facility] Last Admin: 06/15/16 06:00 Dose: Not Given Magnesium Oxide (Mag-Ox) 400 mg PO BID [facility] Last Admin: 06/14/16 19:00 Dose: 400 mg Polyethylene Glycol (Miralax) 17 gm PO Q2D [facility] Last Admin: 06/14/16 14:25 Dose: Not Given Silver Sulfadiazine (Silvadene 1% 20 Gm) 0 ea TOP Q12H [facility] Last Admin: 06/15/16 04:16 Dose: 1 applic Sodium Chloride (Sodium Chloride Tab) 1 gm PO DAILY@1330 [facility] Last Admin: 06/14/16 14:25 Dose: Not Given Tamsulosin HCl (Flomax) 0.8 mg PO DAILY [facility] Last Admin: 06/14/16 11:36 Dose: 0.8 mg Tramadol HCl (Ultram) 25 mg PO TID PRN PRN Reason: Pain, moderate (4-7) Last Admin: 06/10/16 08:14 Dose: 25 mg - Labs Labs: 06/12/16 17:11 06/12/16 17:11 - Extremities Exam Additional comments: Right knee: no tenderness to proximal tibia. Knee immob intact. Patient in chair. Calves sfot NT neg homans Left heel: noted more substantial fat pad to heel (likely due to increased WB on left side) as compared to right. No erythema, no swelling, no bony tenderness. Full ROM left ankle and foot no swelling. Assessment and Plan (1) Acetabular protrusion Assessment & Plan: stable protected WB Status: Acute (2) Fracture of tibia, proximal, right, closed Assessment & Plan: knee immobilizer per Dr. Pino, TTWB, ROM with PT, continue ambulation training d/w Dr. Pino, agrees with above Status: Chronic Radiology Interpretation - Radiology Interpretation #2 Interpretation: Patient Name / ID : [id number] / [id number] Exam Date : 06/13/2016 10:33:11 ( Approved ) Study Comment : Sex / Age : M / [id number] Creator : Omid Jon MD Dictator : Omid Jon MD Public Health Physician : [employer] Operator : Omid Jon MD Approver2 : Report Date : 06/13/2016 15:55:49 My Comment : PROCEDURE: Right knee HISTORY: f/u lateral tibia stress fx COMPARISON: 06/06/2016. TECHNIQUE: Standard protocol for this study/examination. FINDINGS: No acute fractures. Stable postoperative findings related to surgical repair of old patellar fracture. Profound disuse osteopenia. IMPRESSION: No significant interval change compared to the prior examination(s).
[2016-06-15] MEDS: Magnesium Oxide 400 mg Tab UD PO SCH ×2 (11:49→17:43)
[2016-06-15] MEDS: Clotrimazole 1% Cream 15 GM TUBE TOP SCH ×2 (11:50→17:43)
--- NOTE | 2016-06-15 14:21 | CP.PCM.PN ---
<Wyatt Nassar - Last Filed: 06/15/16 14:18> Subjective - Date & Time of Evaluation Date of Evaluation: 06/15/16 Time of Evaluation: 14:18 - Subjective Subjective: PGY-1 note for medicine service Pt seen and examined at bedside. He has no new complaints. Denies any fevers, chills, chest pain, nausea or vomiting. Objective - Vital Signs/Intake and Output Vital Signs (last 24 hours): Temp Pulse Resp BP Pulse Ox 98.2 F 78 18 124/73 98 06/15/16 07:00 06/15/16 07:00 06/15/16 07:00 06/15/16 07:00 06/15/16 07:00 Intake and Output: 06/15/16 06/15/16 06:59 18:59 Intake Total 250 Output Total 400 Balance -150 - Medications Medications: Current Medications Acetaminophen (Tylenol 325mg Tab) 650 mg PO Q6 PRN PRN Reason: Pain, Mild (1-3) Last Admin: 06/14/16 01:00 Dose: 650 mg Carbamide Peroxide (Debrox Ear Drops) 1 ml AU BID PENDING SALE TO [facility] Last Admin: 06/15/16 11:51 Dose: 1 drop Clotrimazole (Lotrimin 1%) 0 gm TOP BID PENDING SALE TO [facility] Last Admin: 06/15/16 11:50 Dose: 1 applic Docusate Sodium (Colace) 100 mg PO BID PENDING SALE TO [facility] Last Admin: 06/15/16 11:49 Dose: 100 mg Famotidine (Pepcid) 20 mg PO BID PENDING SALE TO [facility] Last Admin: 06/15/16 11:49 Dose: 20 mg Heparin Sodium (Porcine) (Heparin) 5,000 units SC Q8 PENDING SALE TO [facility] Last Admin: 06/15/16 13:30 Dose: 5,000 units Magnesium Oxide (Mag-Ox) 400 mg PO BID PENDING SALE TO [facility] Last Admin: 06/15/16 11:49 Dose: 400 mg Polyethylene Glycol (Miralax) 17 gm PO Q2D PENDING SALE TO [facility] Last Admin: 06/14/16 14:25 Dose: Not Given Silver Sulfadiazine (Silvadene 1% 20 Gm) 0 ea TOP Q12H PENDING SALE TO [facility] Last Admin: 06/15/16 04:16 Dose: 1 applic Sodium Chloride (Sodium Chloride Tab) 1 gm PO DAILY@1330 PENDING SALE TO [facility] Last Admin: 06/15/16 13:21 Dose: Not Given Tamsulosin HCl (Flomax) 0.8 mg PO DAILY [facility] Last Admin: 06/15/16 11:56 Dose: 0.8 mg Tramadol HCl (Ultram) 25 mg PO TID PRN PRN Reason: Pain, moderate (4-7) Last Admin: 06/10/16 08:14 Dose: 25 mg - Labs Labs: 06/12/16 17:11 06/12/16 17:11 - Constitutional Appears: Non-toxic, No Acute Distress, Chronically Ill - Head Exam Head Exam: ATRAUMATIC, NORMOCEPHALIC - ENT Exam ENT Exam: Mucous Membranes Moist - Respiratory Exam Respiratory Exam: Clear to Ausculation Bilateral, NORMAL BREATHING PATTERN - Cardiovascular Exam Cardiovascular Exam: +S1, +S2 - GI/Abdominal Exam GI & Abdominal Exam: Soft, Normal Bowel Sounds - Extremities Exam Additional comments: right LE in brace - Neurological Exam Neurological Exam: Alert, Awake - Skin Skin Exam: Dry, Warm Assessment and Plan - Assessment and Plan (Free Text) Assessment: BPH;chronic -No plans from urology as of yet - possible Cysto - Flomax 0.8 mg PO daily - Finasteride 5 mg PO daily - Urology Dr. Hughes on board - will f/u with recs concerning inpatient TURP - 05/18: Pyridium 200 mg PO TIDPC- discontinued Leg swelling -06/09: No changes - 05/23: will order left leg US to r/o DVT - negative for DVT or any other abnormalities - 05/20: venous doppler ordered - read as: No evidence of deep or superficial vein thrombosis of the right lower extremity with excellent venous flow. Normal valve function noted of the right side. Normal venous flow noted in the left common femoral vein. Fracture of tibia, proximal, right, closed; pain management and physical therapy -06/08- re-ordered PT eval - 06/08 - Stable - 05/31 - per ortho - Advance to 10% TTWB RLE, plan repeat xrays in 2 weeks and reassess, continue knee immobilizer, PT order updated - 05/29 - Cont to work with PT. Able to ambulate with walker, NWB on right LE. -05/27- cont current mgmt - 05/24 - continue with current management. - 05/20- ordered venous doppler right leg for swelling - results as above - 3/9- repeat xray with no significant change - 05/11- per ortho team: patient to remain non-weight bearing to right lower extremity - 05/09- right knee xrays ordered by orthopedics team- No acute fracture. Status post ORIF old patellar fracture No significant interval change compared to the prior examination Will follow up recommendations from orthopedics team - 05/05:Ortho Dr. Pino and Jayce West PA following- no orthopedic intervention indicated at this time, strict NWB, PT/OT - Impaction/insufficiency fracture, lateral aspect proximal tibia, non operative , treated with strict NWB and immobilization - At least 6 weeks old by imaging - Tylenol 650 mg PO Q6 PRN mild pain - Tramadol 25mg TID pRN - Daily physical therapy - Nonweight bearing on R leg - L knee x-ray: severe osteopenia. Sclerotic changes about the posterior proximal tibia may relate to a sclerotic healing response of a prior stress fracture here. no tibial plateau depressed fracture. The sclerosis is perceived on the prior 04/21 study; no interval pathology appreciated between 2 exams. If symptoms worsen consider MRI. 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 sclerosi about right acetabulum - daily physical therapy - PT 05/05: decline in transfers due to limitation from right hip and knee pain. patient still able to tolerate hallway ambulation, no episode of orthostatic hypotension post gait. recommending room/hallway ambulation w/ nursing for AM/ PM care or toileting. - PT 05/09: decline in function limited by persisting right groin/ hip and knee pain. patient still recommended for daily out of bed during am/pm care. cleared for ambulation in the room with standard walker non weight bearing right lower extremity - PT 05/10: mild decline in transfers due to pain in right knee and hip. NWB to RLE. Patient with episode of hypotension post ambulation- no syncope. - 05/16: discussed with PT. Patient function declining due to immobility. Patient needs to go from bed to chair. Patient should also be ambulating to the bathroom with assist. Patient becomes hypotensive with walking. - 05/17: patient assisted to chair. discussed with nursing the need for ambulation to and from bathroom with assistance as well as transfer from bed to chair Abdominal discomfort likely 2/2 Constipation - 06/09- no abdominal pain reported, moving bowels - Lactulose, reports BMs - Monitor Facial rash - Stable - resembles seborrheic dermatitis, patient encouraged to moisturize - ESR 32 - CRP 1.51 - RA- negative - A&D ointment to face Orthostasis - 05/21: IV fluids- NS at 100cc/h - stopped - 05/16: Per PT, patient becomes hypotensive with exertion. adding sodium chloride tablets 1g daily - 05/05: -Supine BP: 114/71, HR 75 -Sitting BP: 113/71, HR 90 -Standing BP: 116/72, HR 94 Anemia; will monitor - 06/12 - Hgb 10.4, improving - 05/30: Hgb trending up - 05/26: may have a component of Fe deficiency, will replete - 05/25: Hgb still low, will get labs with Iron panel tomorrow - 05/22: Hgb 8.7, repeated and was 9.5 - 05/15: hgb 11.0 - chronic - monitor with weekly labs Abdominal Pain; resolved - 06/09- no abdominal pain reported, moving bowels - 05/24: less abd pain, reports BMs - 05/22: continues to complain of straining, will give one time miralax dose - 05/21: restart colace 100mg BID as patient straining to have BM - patient with multiple soft stools- will stop miralax for now - patient has been complaining of abdominal pain since admission - Colace 100mg PO BID - Dulcolax every 3 days - Inguinal hernia with unobstructed bowel loop involvement; protruded 04/18 due to straining on toilet. - 05/03/16 B/L inguinal hernias reduced today without incidence - Abdominal US 04/01: Gallstones, no acute cholecystitis, no hydronephrosis. trace ascites (see full report) - Abd/pelv CT 03/11: mod b/l pleural effusions and assoc consolidations; tiny probably gallstones within the gallbladder; small to moderate hiatal hernia; R inguinal hernia which contains small loops of bowel, likely small bowel- no evidence of obstruction as oral contrast is noted within R colon. No definite free air, however evaluation for pneumoperitoneum is suboptimal. Moderate to severe constipation with questionable impaction. Prostate gland 4.1cm x 4.6cm. Urinary bladder appears unremarkable. Small amount of fluid within a right inguinal hernia. Sclerosis of right iliac wing. Extensive anasarca. Aneursmal dilatation of ascending thoracic aorta; Currently 4.5 cm. Patient needs repeat Ct imaging every 6 months - last CT scan in 03/2016, should be monitored in September, Onychomycosis;chronic and improving - patient had aseptic debridement of toenails x 10 - clotrimazole cream to be applied to feet b/l BID - podiatry following Sacral decubitus- resolved - 05/17- sacrum examined- no sacral ulcers noted - 05/16: patient needs to go from bed to chair to prevent ulcers from re-forming - 04/19: exam revealed a previously healed decubitus ulcer of right buttocks. Sacral exam was clear. - Wound care following - recommending medihoney covered with bordered telfa dressing to right lower buttocks stage 2 pressure ulcer daily. - Pt is OOB to chair with help from PT daily - Order placed for turning patient Q2H History of Urinary Tract Infection - 06/09: No urinary complaints - 05/20: ordered repeat urine culture for urinary frequency - no growth (Final) - 05/17: urine culture negative - 05/16: + nitrates, 4 RBC, occasional bacteria. - urine culture 05/03- no growth - UA 05/05: +nitrates, occasional bacteria Diarrhea- resolved - 06/09: no complaints of diarrhea, complaining of bleeding w/BMs- buttock wound , Silvadene top ordered - 05/22 - resolved - culture negative - 05/18: c. diff negative, no salmonella - 05/17: ova and parasites negative Hypokalemia - Monitor - Replete as needed Syncopal Episode x1- resolved - 05/04/16 CTA- negative for PE (underlying atelectasis new findings compared to the prior study 03/20/2016.) Prophylactic Measure - Labs weekly - Lovenox 40mg SC daily - Pepcid 20mg PO BID - A and D ointment TOP Q*H - Patient is homeless. Used to stay with friend, but no longer welcome there. Goal is to walk with cane so he can go to a [facility] (will not qualify with a walker) - patient will need to work with PT frequently - right calf with dark skin lesion underneath knee immobilizer- wound care on board- applying medihoney DISPO - Reaching out to family in [facility] - no response from family per case management - Social Work is following up - Cannot be discharged to [facility] due to functional status - Continue to work with PT - No new changes to pt status or plan - Palliative care consulted - pt agrees to DNR/DNI- cont current medical mgmt, rec for Silvadene to buttock <Jose Wiggins - Last Filed: 06/15/16 16:32> Objective - Vital Signs/Intake and Output Vital Signs (last 24 hours): Temp Pulse Resp BP Pulse Ox 98.2 F 78 18 124/73 98 06/15/16 07:00 06/15/16 15:19 06/15/16 07:00 06/15/16 07:00 06/15/16 07:00 Intake and Output: 06/15/16 06/15/16 06:59 18:59 Intake Total 250 Output Total 400 Balance -150 - Medications Medications: Current Medications Acetaminophen (Tylenol 325mg Tab) 650 mg PO Q6 PRN PRN Reason: Pain, Mild (1-3) Last Admin: 06/14/16 01:00 Dose: 650 mg Carbamide Peroxide (Debrox Ear Drops) 1 ml AU BID PENDING SALE TO [facility] Last Admin: 06/15/16 11:51 Dose: 1 drop Clotrimazole (Lotrimin 1%) 0 gm TOP BID PENDING SALE TO [facility] Last Admin: 06/15/16 11:50 Dose: 1 applic Docusate Sodium (Colace) 100 mg PO BID PENDING SALE [facility] Last Admin: 06/15/16 11:49 Dose: 100 mg Famotidine (Pepcid) 20 mg PO BID PENDING SALE [facility] Last Admin: 06/15/16 11:49 Dose: 20 mg Heparin Sodium (Porcine) (Heparin) 5,000 units SC Q8 PENDING SALE TO [facility] Last Admin: 06/15/16 13:30 Dose: 5,000 units Magnesium Oxide (Mag-Ox) 400 mg PO BID PENDING SALE [facility] Last Admin: 06/15/16 11:49 Dose: 400 mg Polyethylene Glycol (Miralax) 17 gm PO Q2D PENDING SALE TO [facility] Last Admin: 06/14/16 14:25 Dose: Not Given Silver Sulfadiazine (Silvadene 1% 20 Gm) 0 ea TOP Q12H PENDING SALE TO [facility] Last Admin: 06/15/16 04:16 Dose: 1 applic Sodium Chloride (Sodium Chloride Tab) 1 gm PO DAILY@1330 PENDING SALE TO [facility] Last Admin: 06/15/16 13:21 Dose: Not Given Tamsulosin HCl (Flomax) 0.8 mg PO DAILY [facility]END[facility] Last Admin: 06/15/16 11:56 Dose: 0.8 mg Tramadol HCl (Ultram) 25 mg PO TID PRN PRN Reason: Pain, moderate (4-7) Last Admin: 06/10/16 08:14 Dose: 25 mg - Labs Labs: 06/12/16 17:11 06/12/16 17:11 Attending/Attestation - Attestation I have personally seen and examined this patient.: Yes I have fully participated in the care of the patient.: Yes I have reviewed all pertinent clinical information, including history, physical exam and plan: Yes Notes (Text): 06/15/16 16:32 Patient was seen and examined at bedside with the resident Still complains of pain in the right lower extremity We'll mobilize her in place Continue physical therapy daily Orthopedic follow-up seen and appreciated.
[2016-06-15] MEDS: Tramadol 25 mg PO PRN (22:14)
[2016-06-16] MEDS: Silver Sulfadiazine 1% Cream (20 gm) TOP SCH ×2 (04:13→16:30)
--- NOTE | 2016-06-16 09:58 | CP.PCM.PN ---
<Kimberly Ken - Last Filed: 06/16/16 11:11> Subjective - Date & Time of Evaluation Date of Evaluation: 06/16/16 Time of Evaluation: 07:15 - Subjective Subjective: PGY-[address] Rutherford: Patient seen and examined at bedside this morning. No new complaints other than having to urinate several times throughout the night. He admits to the same chronic pain in his lower extremities and in his right hip. Appetite is good and is tolerating diet. He denies headaches, dizziness, change in vision, fever , chills, chest pain, sob, abdominal pain, nausea/vomiting, diarrhea/ constipation. Objective - Vital Signs/Intake and Output Vital Signs (last 24 hours): Temp Pulse Resp BP Pulse Ox 98.5 F 74 20 101/64 96 06/15/16 23:28 06/15/16 23:28 06/15/16 23:28 06/15/16 23:28 06/15/16 23:28 Intake and Output: 06/16/16 06/16/16 06:59 18:59 Intake Total 650 Output Total 950 Balance -300 - Medications Medications: Current Medications Acetaminophen (Tylenol 325mg Tab) 650 mg PO Q6 PRN PRN Reason: Pain, Mild (1-3) Last Admin: 06/14/16 01:00 Dose: 650 mg Carbamide Peroxide (Debrox Ear Drops) 1 ml AU BID ON LICENSE OF [facility] Last Admin: 06/15/16 17:42 Dose: 5 drop Clotrimazole (Lotrimin 1%) 0 gm TOP BID ON LICENSE OF [facility] Last Admin: 06/15/16 17:43 Dose: 1 applic Docusate Sodium (Colace) 100 mg PO BID ON LICENSE OF [facility] Last Admin: 06/15/16 17:42 Dose: 100 mg Famotidine (Pepcid) 20 mg PO BID ON LICENSE OF [facility] Last Admin: 06/15/16 17:43 Dose: 20 mg Heparin Sodium (Porcine) (Heparin) 5,000 units SC Q8 ON LICENSE OF [facility] Last Admin: 06/16/16 06:57 Dose: 5,000 units Magnesium Oxide (Mag-Ox) 400 mg PO BID ON LICENSE OF [facility] Last Admin: 06/15/16 17:43 Dose: 400 mg Polyethylene Glycol (Miralax) 17 gm PO Q2D ON LICENSE OF [facility] Last Admin: 06/14/16 14:25 Dose: Not Given Silver Sulfadiazine (Silvadene 1% 20 Gm) 0 ea TOP Q12H ON LICENSE OF [facility] Last Admin: 06/16/16 04:13 Dose: 1 applic Sodium Chloride (Sodium Chloride Tab) 1 gm PO DAILY@1330 ON LICENSE OF [facility] Last Admin: 06/15/16 13:21 Dose: Not Given Tamsulosin HCl (Flomax) 0.8 mg PO DAILY ON LICENSE OF [facility] Last Admin: 06/15/16 11:56 Dose: 0.8 mg Tramadol HCl (Ultram) 25 mg PO TID PRN PRN Reason: Pain, moderate (4-7) Last Admin: 06/15/16 22:14 Dose: 25 mg - Labs Labs: 06/12/16 17:11 06/12/16 17:11 - Constitutional Appears: Non-toxic, No Acute Distress, Cachectic, Chronically Ill - Head Exam Head Exam: ATRAUMATIC, NORMAL INSPECTION - Eye Exam Eye Exam: EOMI, Normal appearance, PERRL Pupil Exam: NORMAL ACCOMODATION - ENT Exam ENT Exam: Mucous Membranes Moist - Respiratory Exam Respiratory Exam: NORMAL BREATHING PATTERN. absent: Accessory Muscle Use, Chest Wall Tenderness, Rales, Rhonchi, Wheezes, Respiratory Distress - Cardiovascular Exam Cardiovascular Exam: REGULAR RHYTHM, +S1, +S2 - GI/Abdominal Exam GI & Abdominal Exam: Soft, Normal Bowel Sounds. absent: Distended, Firm, Guarding, Tenderness - Extremities Exam Extremities Exam: Normal Inspection. absent: Calf Tenderness, Pedal Edema Additional comments: RLE brace - Back Exam Back Exam: NORMAL INSPECTION. absent: CVA tenderness (L), CVA tenderness (R), paraspinal tenderness - Neurological Exam Neurological Exam: Alert, Awake, CN II-XII Intact, Oriented x3 - Psychiatric Exam Psychiatric exam: Normal Affect, Normal Mood - Skin Skin Exam: Dry, Intact, Normal Color, Warm Assessment and Plan - Assessment and Plan (Free Text) Assessment: BPH;chronic -No plans from urology as of yet - possible Cysto - Flomax 0.8 mg PO daily - Finasteride 5 mg PO daily - Urology Dr. Hughes on board - will f/u with recs concerning inpatient TURP - 05/18: Pyridium 200 mg PO TIDPC- discontinued Leg swelling -06/09: No changes - 05/23: will order left leg US to r/o DVT - negative for DVT or any other abnormalities - 05/20: venous doppler ordered - read as: No evidence of deep or superficial vein thrombosis of the right lower extremity with excellent venous flow. Normal valve function noted of the right side. Normal venous flow noted in the left common femoral vein. Fracture of tibia, proximal, right, closed; pain management and physical therapy -06/08- re-ordered PT eval - 06/08 - Stable - 05/31 - per ortho - Advance to 10% TTWB RLE, plan repeat xrays in 2 weeks and reassess, continue knee immobilizer, PT order updated - 05/29 - Cont to work with PT. Able to ambulate with walker, NWB on right LE. -05/27- cont current mgmt - 05/24 - continue with current management. - 05/20- ordered venous doppler right leg for swelling - results as above - 05/18- repeat xray with no significant change - 05/11- per ortho team: patient to remain non-weight bearing to right lower extremity - 05/09- right knee xrays ordered by orthopedics team- No acute fracture. Status post ORIF old patellar fracture No significant interval change compared to the prior examination Will follow up recommendations from orthopedics team - 05/05:Ortho Dr. Pino and Jayce West PA following- no orthopedic intervention indicated at this time, strict NWB, PT/OT - Impaction/insufficiency fracture, lateral aspect proximal tibia, non operative , treated with strict NWB and immobilization - At least 6 weeks old by imaging - Tylenol 650 mg PO Q6 PRN mild pain - Tramadol 25mg TID pRN - Daily physical therapy - Nonweight bearing on R leg - L knee x-ray: severe osteopenia. Sclerotic changes about the posterior proximal tibia may relate to a sclerotic healing response of a prior stress fracture here. no tibial plateau depressed fracture. The sclerosis is perceived on the prior 04/21 study; no interval pathology appreciated between 2 exams. If symptoms worsen consider MRI. 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 sclerosi about right acetabulum - daily physical therapy - PT 05/05: decline in transfers due to limitation from right hip and knee pain. patient still able to tolerate hallway ambulation, no episode of orthostatic hypotension post gait. recommending room/hallway ambulation w/ nursing for AM/ PM care or toileting. - PT 05/09: decline in function limited by persisting right groin/ hip and knee pain. patient still recommended for daily out of bed during am/pm care. cleared for ambulation in the room with standard walker non weight bearing right lower extremity - PT 05/10: mild decline in transfers due to pain in right knee and hip. NWB to RLE. Patient with episode of hypotension post ambulation- no syncope. - 05/16: discussed with PT. Patient function declining due to immobility. Patient needs to go from bed to chair. Patient should also be ambulating to the bathroom with assist. Patient becomes hypotensive with walking. - 05/17: patient assisted to chair. discussed with nursing the need for ambulation to and from bathroom with assistance as well as transfer from bed to chair Abdominal discomfort likely 04/13 Constipation - 06/09- no abdominal pain reported, moving bowels - Lactulose, reports BMs - Monitor Facial rash - Stable - resembles seborrheic dermatitis, patient encouraged to moisturize - ESR 32 - CRP 1.51 - RA- negative - A&D ointment to face Orthostasis - 05/21: IV fluids- NS at 100cc/h - stopped - 05/16: Per PT, patient becomes hypotensive with exertion. adding sodium chloride tablets 1g daily - 05/05: -Supine BP: 114/71, HR 75 -Sitting BP: 113/71, HR 90 -Standing BP: 116/72, HR 94 Anemia; will monitor - 06/12 - Hgb 10.4, improving - 05/30: Hgb trending up - 05/26: may have a component of Fe deficiency, will replete - 05/25: Hgb still low, will get labs with Iron panel tomorrow - 05/22: Hgb 8.7, repeated and was 9.5 - 05/15: hgb 11.0 - chronic - monitor with weekly labs Abdominal Pain; resolved - 06/09- no abdominal pain reported, moving bowels - 05/24: less abd pain, reports BMs - 05/22: continues to complain of straining, will give one time miralax dose - 05/21: restart colace 100mg BID as patient straining to have BM - patient with multiple soft stools- will stop miralax for now - patient has been complaining of abdominal pain since admission - Colace 100mg PO BID - Dulcolax every 3 days - Inguinal hernia with unobstructed bowel loop involvement; protruded 04/18 due to straining on toilet. - 05/03/16 B/L inguinal hernias reduced today without incidence - Abdominal US 04/01: Gallstones, no acute cholecystitis, no hydronephrosis. trace ascites (see full report) - Abd/pelv CT 03/11: mod b/l pleural effusions and assoc consolidations; tiny probably gallstones within the gallbladder; small to moderate hiatal hernia; R inguinal hernia which contains small loops of bowel, likely small bowel- no evidence of obstruction as oral contrast is noted within R colon. No definite free air, however evaluation for pneumoperitoneum is suboptimal. Moderate to severe constipation with questionable impaction. Prostate gland 4.1cm x 4.6cm. Urinary bladder appears unremarkable. Small amount of fluid within a right inguinal hernia. Sclerosis of right iliac wing. Extensive anasarca. Aneursmal dilatation of ascending thoracic aorta; Currently 4.5 cm. Patient needs repeat Ct imaging every 6 months - last CT scan in 03/2016, should be monitored in September, Onychomycosis;chronic and improving - patient had aseptic debridement of toenails x 10 - clotrimazole cream to be applied to feet b/l BID - podiatry following Sacral decubitus- resolved - 05/17- sacrum examined- no sacral ulcers noted - 05/16: patient needs to go from bed to chair to prevent ulcers from re-forming - 04/19: exam revealed a previously healed decubitus ulcer of right buttocks. Sacral exam was clear. - Wound care following - recommending medihoney covered with bordered telfa dressing to right lower buttocks stage 2 pressure ulcer daily. - Pt is OOB to chair with help from PT daily - Order placed for turning patient Q2H History of Urinary Tract Infection - 06/09: No urinary complaints - 05/20: ordered repeat urine culture for urinary frequency - no growth (Final) - 05/17: urine culture negative - 05/16: + nitrates, 4 RBC, occasional bacteria. - urine culture 05/03- no growth - UA 05/05: +nitrates, occasional bacteria Diarrhea- resolved - 06/09: no complaints of diarrhea, complaining of bleeding w/BMs- buttock wound , Silvadene top ordered - 05/22 - resolved - culture negative - 05/18: c. diff negative, no salmonella - 05/17: ova and parasites negative Hypokalemia - Monitor - Replete as needed Syncopal Episode x1- resolved - 05/04/16 CTA- negative for PE (underlying atelectasis new findings compared to the prior study 03/20/2016.) Prophylactic Measure - Labs weekly - Lovenox 40mg SC daily - Pepcid 20mg PO BID - A and D ointment TOP Q*H - Patient is homeless. Used to stay with friend, but no longer welcome there. Goal is to walk with cane so he can go to a custodial (will not qualify with a walker) - patient will need to work with PT frequently - right calf with dark skin lesion underneath knee immobilizer- wound care on board- applying medihoney DISPO - Reaching out to family in [facility] - no response from family per case management - Social Work is following up - Cannot be discharged to custodial due to functional status - Continue to work with PT - No new changes to pt status or plan - Palliative care consulted - pt agrees to DNR/DNI- cont current medical mgmt, rec for Silvadene to buttock <Sukhwinder Rutherford H - Last Filed: 06/16/16 15:25> Objective - Vital Signs/Intake and Output Vital Signs (last 24 hours): Temp Pulse Resp BP Pulse Ox 98.2 F 72 18 110/70 97 06/16/16 08:00 06/16/16 08:00 06/16/16 08:00 06/16/16 08:00 06/16/16 08:00 Intake and Output: 06/16/16 06/16/16 06:59 18:59 Intake Total 650 Output Total 950 Balance -300 - Medications Medications: Current Medications Acetaminophen (Tylenol 325mg Tab) 650 mg PO Q6 PRN PRN Reason: Pain, Mild (1-3) Last Admin: 06/14/16 01:00 Dose: 650 mg Carbamide Peroxide (Debrox Ear Drops) 1 ml AU BID ON LICENSE OF [facility] Last Admin: 06/16/16 11:14 Dose: 1 drop Clotrimazole (Lotrimin 1%) 0 gm TOP BID ON LICENSE OF [facility] Last Admin: 06/16/16 10:37 Dose: 1 applic Docusate Sodium (Colace) 100 mg PO BID ON LICENSE OF [facility] Last Admin: 06/16/16 10:33 Dose: 100 mg Famotidine (Pepcid) 20 mg PO BID ON LICENSE OF [facility] Last Admin: 06/16/16 10:33 Dose: 20 mg Heparin Sodium (Porcine) (Heparin) 5,000 units SC Q8 ON LICENSE OF [facility] Last Admin: 06/16/16 13:36 Dose: 5,000 units Magnesium Oxide (Mag-Ox) 400 mg PO BID ON LICENSE OF [facility] Last Admin: 06/16/16 10:34 Dose: 400 mg Polyethylene Glycol (Miralax) 17 gm PO Q2D ON LICENSE OF [facility] Last Admin: 06/16/16 13:33 Dose: Not Given Silver Sulfadiazine (Silvadene 1% 20 Gm) 0 ea TOP Q12H ON LICENSE OF [facility] Last Admin: 06/16/16 04:13 Dose: 1 applic Sodium Chloride (Sodium Chloride Tab) 1 gm PO DAILY@1330 ON LICENSE OF [facility] Last Admin: 06/16/16 13:33 Dose: 1 gm Tamsulosin HCl (Flomax) 0.8 mg PO DAILY ON LICENSE OF [facility] Last Admin: 06/16/16 10:33 Dose: 0.8 mg Tramadol HCl (Ultram) 25 mg PO TID PRN PRN Reason: Pain, moderate (4-7) Last Admin: 06/15/16 22:14 Dose: 25 mg - Labs Labs: 06/12/16 17:11 06/12/16 17:11 Attending/Attestation - Attestation I have personally seen and examined this patient.: Yes I have fully participated in the care of the patient.: Yes I have reviewed all pertinent clinical information, including history, physical exam and plan: Yes Notes (Text): Medical attending: Patient was seen and examined by me, agrees the above note by medical equipment repairer. Reviewed some the most recent notes also discussed with residents, this is a patient who has been in the hospital for quite an extended period of time he's been here since February 2016. From what I understand the patient is here for a prolonged period of time, he's had a lot of lower extremity weakness. It appears that he is homeless, his family is from a different country and we have not been able to reach out to them So this time the patient remains at [facility] Thank you very much, Sukhwinder Rutherford
[2016-06-16] MEDS: Magnesium Oxide 400 mg Tab UD PO SCH ×2 (10:34→17:33)
[2016-06-16] MEDS: Clotrimazole 1% Cream 15 GM TUBE TOP SCH ×2 (10:37→17:32)
[2016-06-16] MEDS: POLYETHYLENE GLYCOL 3350 17 GM/Dose PACKET PO SCH (13:33)
[2016-06-16] MEDS: Tramadol 25 mg PO PRN (17:46)
--- NOTE | 2016-06-17 01:47 | CP.PCM.PN ---
<Wyatt Nassar - Last Filed: 06/17/16 01:43> Subjective - Date & Time of Evaluation Date of Evaluation: 06/17/16 Time of Evaluation: 01:44 - Subjective Subjective: PGY-1 note for hospitalist service Pt seen and examined at bedside. Pt has no new complaints. Has pain in right leg. Still working with PT which always makes the pain worse. Denies fevers, chills, chest pain, sob, nausea or vomiting. Objective - Vital Signs/Intake and Output Vital Signs (last 24 hours): Temp Pulse Resp BP Pulse Ox 98.1 F 71 20 100/62 96 06/17/16 00:00 06/17/16 00:00 06/17/16 00:00 06/17/16 00:00 06/17/16 00:00 Intake and Output: 06/16/16 06/17/16 18:59 06:59 Intake Total 500 400 Output Total 300 Balance 500 100 - Medications Medications: Current Medications Acetaminophen (Tylenol 325mg Tab) 650 mg PO Q6 PRN PRN Reason: Pain, Mild (1-3) Last Admin: 06/14/16 01:00 Dose: 650 mg Carbamide Peroxide (Debrox Ear Drops) 1 ml AU BID [facility] Last Admin: 06/16/16 17:32 Dose: 5 drop Clotrimazole (Lotrimin 1%) 0 gm TOP BID [facility] Last Admin: 06/16/16 17:32 Dose: 1 applic Docusate Sodium (Colace) 100 mg PO BID [facility] Last Admin: 06/16/16 17:33 Dose: 100 mg Famotidine (Pepcid) 20 mg PO BID [facility] Last Admin: 06/16/16 17:32 Dose: 20 mg Heparin Sodium (Porcine) (Heparin) 5,000 units SC Q8 [facility] Last Admin: 06/16/16 21:24 Dose: 5,000 units Magnesium Oxide (Mag-Ox) 400 mg PO BID [facility] Last Admin: 06/16/16 17:33 Dose: 400 mg Polyethylene Glycol (Miralax) 17 gm PO Q2D [facility] Last Admin: 06/16/16 13:33 Dose: Not Given Silver Sulfadiazine (Silvadene 1% 20 Gm) 0 ea TOP Q12H [facility] Last Admin: 06/16/16 16:30 Dose: 1 applic Sodium Chloride (Sodium Chloride Tab) 1 gm PO DAILY@1330 [facility] Last Admin: 06/16/16 13:33 Dose: 1 gm Tamsulosin HCl (Flomax) 0.8 mg PO DAILY [facility] Last Admin: 06/16/16 10:33 Dose: 0.8 mg Tramadol HCl (Ultram) 25 mg PO TID PRN PRN Reason: Pain, moderate (4-7) Last Admin: 06/16/16 17:46 Dose: 25 mg - Labs Labs: 06/12/16 17:11 06/12/16 17:11 - Constitutional Appears: Non-toxic, No Acute Distress, Chronically Ill - Head Exam Head Exam: ATRAUMATIC, NORMOCEPHALIC - ENT Exam ENT Exam: Mucous Membranes Moist - Respiratory Exam Respiratory Exam: Clear to Ausculation Bilateral, NORMAL BREATHING PATTERN - Cardiovascular Exam Cardiovascular Exam: +S1, +S2 - GI/Abdominal Exam GI & Abdominal Exam: Soft, Normal Bowel Sounds - Back Exam Back Exam: NORMAL INSPECTION - Neurological Exam Neurological Exam: Alert, Awake - Skin Skin Exam: Dry, Warm Assessment and Plan - Assessment and Plan (Free Text) Assessment: BPH;chronic -No plans from urology as of yet - possible Cysto - Flomax 0.8 mg PO daily - Finasteride 5 mg PO daily - Urology Dr. Hughes on board - will f/u with recs concerning inpatient TURP - 05/18: Pyridium 200 mg PO TIDPC- discontinued Leg swelling -06/09: No changes - 05/23: will order left leg US to r/o DVT - negative for DVT or any other abnormalities - 05/20: venous doppler ordered - read as: No evidence of deep or superficial vein thrombosis of the right lower extremity with excellent venous flow. Normal valve function noted of the right side. Normal venous flow noted in the left common femoral vein. Fracture of tibia, proximal, right, closed; pain management and physical therapy -06/08- re-ordered PT eval - 06/08 - Stable - 05/31 - per ortho - Advance to 10% TTWB RLE, plan repeat xrays in 2 weeks and reassess, continue knee immobilizer, PT order updated - 05/29 - Cont to work with PT. Able to ambulate with walker, NWB on right LE. -05/27- cont current mgmt - 05/24 - continue with current management. - 05/20- ordered venous doppler right leg for swelling - results as above - 05/18- repeat xray with no significant change - 05/11- per ortho team: patient to remain non-weight bearing to right lower extremity - 05/09- right knee xrays ordered by orthopedics team- No acute fracture. Status post ORIF old patellar fracture No significant interval change compared to the prior examination Will follow up recommendations from orthopedics team - 05/05:Ortho Dr. Pino and Jayce NICOLE following- no orthopedic intervention indicated at this time, strict NWB, PT/OT - Impaction/insufficiency fracture, lateral aspect proximal tibia, non operative , treated with strict NWB and immobilization - At least 6 weeks old by imaging - Tylenol 650 mg PO Q6 PRN mild pain - Tramadol 25mg TID pRN - Daily physical therapy - Nonweight bearing on R leg - L knee x-ray: severe osteopenia. Sclerotic changes about the posterior proximal tibia may relate to a sclerotic healing response of a prior stress fracture here. no tibial plateau depressed fracture. The sclerosis is perceived on the prior 04/21 study; no interval pathology appreciated between 2 exams. If symptoms worsen consider MRI. 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 sclerosi about right acetabulum - daily physical therapy - PT 05/05: decline in transfers due to limitation from right hip and knee pain. patient still able to tolerate hallway ambulation, no episode of orthostatic hypotension post gait. recommending room/hallway ambulation w/ nursing for AM/ PM care or toileting. - PT 05/09: decline in function limited by persisting right groin/ hip and knee pain. patient still recommended for daily out of bed during am/pm care. cleared for ambulation in the room with standard walker non weight bearing right lower extremity - PT 05/10: mild decline in transfers due to pain in right knee and hip. NWB to RLE. Patient with episode of hypotension post ambulation- no syncope. - 05/16: discussed with PT. Patient function declining due to immobility. Patient needs to go from bed to chair. Patient should also be ambulating to the bathroom with assist. Patient becomes hypotensive with walking. - 05/17: patient assisted to chair. discussed with nursing the need for ambulation to and from bathroom with assistance as well as transfer from bed to chair Abdominal discomfort likely 2/2 Constipation - 06/09- no abdominal pain reported, moving bowels - Lactulose, reports BMs - Monitor Facial rash - Stable - resembles seborrheic dermatitis, patient encouraged to moisturize - ESR 32 - CRP 1.51 - RA- negative - A&D ointment to face Orthostasis - 05/21: IV fluids- NS at 100cc/h - stopped - 05/16: Per PT, patient becomes hypotensive with exertion. adding sodium chloride tablets 1g daily - 05/05: -Supine BP: 114/71, HR 75 -Sitting BP: 113/71, HR 90 -Standing BP: 116/72, HR 94 Anemia; will monitor - 06/12 - Hgb 10.4, improving - 05/30: Hgb trending up - 05/26: may have a component of Fe deficiency, will replete - 05/25: Hgb still low, will get labs with Iron panel tomorrow - 05/22: Hgb 8.7, repeated and was 9.5 - 05/15: hgb 11.0 - chronic - monitor with weekly labs Abdominal Pain; resolved - 06/09- no abdominal pain reported, moving bowels - 05/24: less abd pain, reports BMs - 05/22: continues to complain of straining, will give one time miralax dose - 05/21: restart colace 100mg BID as patient straining to have BM - patient with multiple soft stools- will stop miralax for now - patient has been complaining of abdominal pain since admission - Colace 100mg PO BID - Dulcolax every 3 days - Inguinal hernia with unobstructed bowel loop involvement; protruded 04/18 due to straining on toilet. - 05/03/16 B/L inguinal hernias reduced today without incidence - Abdominal US 04/01: Gallstones, no acute cholecystitis, no hydronephrosis. trace ascites (see full report) - Abd/pelv CT 03/11: mod b/l pleural effusions and assoc consolidations; tiny probably gallstones within the gallbladder; small to moderate hiatal hernia; R inguinal hernia which contains small loops of bowel, likely small bowel- no evidence of obstruction as oral contrast is noted within R colon. No definite free air, however evaluation for pneumoperitoneum is suboptimal. Moderate to severe constipation with questionable impaction. Prostate gland 4.1cm x 4.6cm. Urinary bladder appears unremarkable. Small amount of fluid within a right inguinal hernia. Sclerosis of right iliac wing. Extensive anasarca. Aneursmal dilatation of ascending thoracic aorta; Currently 4.5 cm. Patient needs repeat Ct imaging every 6 months - last CT scan in 03/2016, should be monitored in September, Onychomycosis;chronic and improving - patient had aseptic debridement of toenails x 10 - clotrimazole cream to be applied to feet b/l BID - podiatry following Sacral decubitus- resolved - 05/17- sacrum examined- no sacral ulcers noted - 05/16: patient needs to go from bed to chair to prevent ulcers from re-forming - 04/19: exam revealed a previously healed decubitus ulcer of right buttocks. Sacral exam was clear. - Wound care following - recommending medihoney covered with bordered telfa dressing to right lower buttocks stage 2 pressure ulcer daily. - Pt is OOB to chair with help from PT daily - Order placed for turning patient Q2H History of Urinary Tract Infection - 06/09: No urinary complaints - 05/20: ordered repeat urine culture for urinary frequency - no growth (Final) - 05/17: urine culture negative - 05/16: + nitrates, 4 RBC, occasional bacteria. - urine culture 05/03- no growth - UA 05/05: +nitrates, occasional bacteria Diarrhea- resolved - 06/09: no complaints of diarrhea, complaining of bleeding w/BMs- buttock wound , Silvadene top ordered - 05/22 - resolved - culture negative - 05/18: c. diff negative, no salmonella - 05/17: ova and parasites negative Hypokalemia - Monitor - Replete as needed Syncopal Episode x1- resolved - 05/04/16 CTA- negative for PE (underlying atelectasis new findings compared to the prior study 03/20/2016.) Prophylactic Measure - Labs weekly - Lovenox 40mg SC daily - Pepcid 20mg PO BID - A and D ointment TOP Q*H - Patient is homeless. Used to stay with friend, but no longer welcome there. Goal is to walk with cane so he can go to a [facility] (will not qualify with a walker) - patient will need to work with PT frequently - right calf with dark skin lesion underneath knee immobilizer- wound care on board- applying [employer] DISPO - Reaching out to family in [facility] - no response from family per case management - Social Work is following up - Cannot be discharged to [facility] due to functional status - Continue to work with PT - No new changes to pt status or plan - Palliative care consulted - pt agrees to DNR/DNI- cont current medical mgmt, rec for Silvadene to buttock <Parker Cantu - Last Filed: 07/12/16 12:26> Objective - Vital Signs/Intake and Output Vital Signs (last 24 hours): Temp Pulse Resp BP Pulse Ox 98.3 F 82 20 102/64 96 07/12/16 09:22 07/12/16 09:22 07/12/16 09:22 07/12/16 09:22 07/12/16 09:22 Intake and Output: 07/12/16 07/12/16 06:59 18:59 Output Total 200 Balance -200 - Medications Medications: Current Medications Acetaminophen (Tylenol 325mg Tab) 650 mg PO Q6 PRN PRN Reason: Pain, Mild (1-3) Last Admin: 07/02/16 21:37 Dose: 650 mg Docusate Sodium (Colace) 100 mg PO BID [facility] Last Admin: 06/30/16 09:13 Dose: Not Given Enoxaparin Sodium (Lovenox) 40 mg SC DAILY [facility] Last Admin: 07/12/16 10:04 Dose: 40 mg Famotidine (Pepcid) 20 mg PO BID [facility] Last Admin: 07/12/16 10:04 Dose: 20 mg Ketoconazole (Nizoral) 0 gm TOP BID [facility] Last Admin: 07/12/16 10:04 Dose: 1 applic Loperamide HCl (Imodium) 2 mg PO QID PRN PRN Reason: Diarrhea Last Admin: 07/01/16 20:22 Dose: 2 mg Magnesium Oxide (Mag-Ox) 400 mg PO BID [facility] Last Admin: 07/12/16 10:04 Dose: 400 mg Polyethylene Glycol (Miralax) 17 gm PO Q2D [facility] Last Admin: 06/29/16 10:44 Dose: Not Given Sodium Chloride (Sodium Chloride Tab) 1 gm PO DAILY@1330 [facility] Last Admin: 07/11/16 14:32 Dose: 1 gm Tamsulosin HCl (Flomax) 0.8 mg PO DAILY [facility] Last Admin: 07/12/16 10:04 Dose: 0.8 mg Tramadol HCl (Ultram) 25 mg PO TID PRN PRN Reason: Pain, moderate (4-7) Last Admin: 07/10/16 09:21 Dose: 25 mg - Labs Labs: 07/10/16 12:53 07/10/16 09:22 Attending/Attestation - Attestation I have personally seen and examined this patient.: Yes I have fully participated in the care of the patient.: Yes I have reviewed all pertinent clinical information, including history, physical exam and plan: Yes Notes (Text): Patient seen and examined with the resident. Agree with the resident's evaluation, assessment and plan. BPH chronic Leg swelling Fracture of tibia, proximal, right, closed
[2016-06-17] MEDS: Tramadol 25 mg PO PRN (04:33)
[2016-06-17] MEDS: Silver Sulfadiazine 1% Cream (20 gm) TOP SCH ×2 (04:34→17:00)
[2016-06-17] MEDS: Magnesium Oxide 400 mg Tab UD PO SCH ×2 (09:35→18:29)
[2016-06-17] MEDS: Clotrimazole 1% Cream 15 GM TUBE TOP SCH ×2 (09:36→18:30)
--- NOTE | 2016-06-18 00:01 | CP.PCM.PN ---
<Kimberly Ken - Last Filed: 06/18/16 07:08> Subjective - Date & Time of Evaluation Date of Evaluation: 06/18/16 Time of Evaluation: 00:00 - Subjective Subjective: PGY-[address] Cantu: Patient seen and examined at bedside this evening. Patient has no new complaints. He admits to the same chronic pain in his lower extremities and in his right hip. Appetite is good and is tolerating diet. Had 2 bowel movements today. He denies headaches, dizziness, change in vision, fever, chills, chest pain, sob, abdominal pain, nausea/vomiting, diarrhea/constipation. Objective - Vital Signs/Intake and Output Vital Signs (last 24 hours): Temp Pulse Resp BP Pulse Ox 98.1 F 78 20 110/75 98 06/17/16 16:00 06/17/16 16:00 06/17/16 16:00 06/17/16 16:00 06/17/16 16:00 Intake and Output: 06/17/16 06/18/16 18:59 06:59 Intake Total 750 360 Output Total 400 500 Balance 350 -140 - Medications Medications: Current Medications Acetaminophen (Tylenol 325mg Tab) 650 mg PO Q6 PRN PRN Reason: Pain, Mild (1-3) Last Admin: 06/14/16 01:00 Dose: 650 mg Carbamide Peroxide (Debrox Ear Drops) 1 ml AU BID [facility] Last Admin: 06/17/16 18:29 Dose: 5 drop Clotrimazole (Lotrimin 1%) 0 gm TOP BID [facility] Last Admin: 06/17/16 18:30 Dose: 1 applic Docusate Sodium (Colace) 100 mg PO BID [facility] Last Admin: 06/17/16 18:29 Dose: 100 mg Famotidine (Pepcid) 20 mg PO BID [facility] Last Admin: 06/17/16 18:29 Dose: 20 mg Magnesium Oxide (Mag-Ox) 400 mg PO BID [facility] Last Admin: 06/17/16 18:29 Dose: 400 mg Polyethylene Glycol (Miralax) 17 gm PO Q2D [facility] Last Admin: 06/16/16 13:33 Dose: Not Given Silver Sulfadiazine (Silvadene 1% 20 Gm) 0 ea TOP Q12H [facility] Last Admin: 06/17/16 17:00 Dose: 1 applic Sodium Chloride (Sodium Chloride Tab) 1 gm PO DAILY@1330 [facility] Last Admin: 06/17/16 14:30 Dose: 1 gm Tamsulosin HCl (Flomax) 0.8 mg PO DAILY [facility] Last Admin: 06/17/16 09:34 Dose: 0.8 mg Tramadol HCl (Ultram) 25 mg PO TID PRN PRN Reason: Pain, moderate (4-7) Last Admin: 06/17/16 04:33 Dose: 25 mg - Labs Labs: 06/12/16 17:11 06/12/16 17:11 - Constitutional Appears: Non-toxic, No Acute Distress, Cachectic, Chronically Ill - Head Exam Head Exam: ATRAUMATIC, NORMAL INSPECTION - Eye Exam Eye Exam: EOMI, Normal appearance, PERRL Pupil Exam: NORMAL ACCOMODATION - ENT Exam ENT Exam: Mucous Membranes Moist - Respiratory Exam Respiratory Exam: NORMAL BREATHING PATTERN. absent: Accessory Muscle Use, Chest Wall Tenderness, Rales, Rhonchi, Wheezes - Cardiovascular Exam Cardiovascular Exam: REGULAR RHYTHM, +S1, +S2 - GI/Abdominal Exam GI & Abdominal Exam: Soft, Tenderness, Normal Bowel Sounds. absent: Distended, Firm, Guarding - Extremities Exam Extremities Exam: Normal Inspection. absent: Calf Tenderness, Pedal Edema - Back Exam Back Exam: NORMAL INSPECTION. absent: CVA tenderness (L), paraspinal tenderness - Neurological Exam Neurological Exam: Alert, Awake, Oriented x3 - Psychiatric Exam Psychiatric exam: Normal Affect, Normal Mood Assessment and Plan - Assessment and Plan (Free Text) Assessment: BPH;chronic -No plans from urology as of yet - possible Cysto - Flomax 0.8 mg PO daily - Finasteride 5 mg PO daily - Urology Dr. Hughes on board - will f/u with recs concerning inpatient TURP - 05/18: Pyridium 200 mg PO TIDPC- discontinued Leg swelling -06/09: No changes - 05/23: will order left leg US to r/o DVT - negative for DVT or any other abnormalities - 05/20: venous doppler ordered - read as: No evidence of deep or superficial vein thrombosis of the right lower extremity with excellent venous flow. Normal valve function noted of the right side. Normal venous flow noted in the left common femoral vein. Fracture of tibia, proximal, right, closed; pain management and physical therapy -06/08- re-ordered PT eval - 06/08 - Stable - 05/31 - per ortho - Advance to 10% TTWB RLE, plan repeat xrays in 2 weeks and reassess, continue knee immobilizer, PT order updated - 05/29 - Cont to work with PT. Able to ambulate with walker, NWB on right LE. -05/27- cont current mgmt - 05/24 - continue with current management. - 05/20- ordered venous doppler right leg for swelling - results as above - 05/18- repeat xray with no significant change - 05/11- per ortho team: patient to remain non-weight bearing to right lower extremity - 05/09- right knee xrays ordered by orthopedics team- No acute fracture. Status post ORIF old patellar fracture No significant interval change compared to the prior examination Will follow up recommendations from orthopedics team - 05/05:Ortho Dr. Pino and Jayce West PA following- no orthopedic intervention indicated at this time, strict NWB, PT/OT - Impaction/insufficiency fracture, lateral aspect proximal tibia, non operative , treated with strict NWB and immobilization - At least 6 weeks old by imaging - Tylenol 650 mg PO Q6 PRN mild pain - Tramadol 25mg TID pRN - Daily physical therapy - Nonweight bearing on R leg - L knee x-ray: severe osteopenia. Sclerotic changes about the posterior proximal tibia may relate to a sclerotic healing response of a prior stress fracture here. no tibial plateau depressed fracture. The sclerosis is perceived on the prior 04/21 study; no interval pathology appreciated between 2 exams. If symptoms worsen consider MRI. 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 sclerosi about right acetabulum - daily physical therapy - PT 05/05: decline in transfers due to limitation from right hip and knee pain. patient still able to tolerate hallway ambulation, no episode of orthostatic hypotension post gait. recommending room/hallway ambulation w/ nursing for AM/ PM care or toileting. - PT 05/09: decline in function limited by persisting right groin/ hip and knee pain. patient still recommended for daily out of bed during am/pm care. cleared for ambulation in the room with standard walker non weight bearing right lower extremity - PT 05/10: mild decline in transfers due to pain in right knee and hip. NWB to RLE. Patient with episode of hypotension post ambulation- no syncope. - 05/16: discussed with PT. Patient function declining due to immobility. Patient needs to go from bed to chair. Patient should also be ambulating to the bathroom with assist. Patient becomes hypotensive with walking. - 05/17: patient assisted to chair. discussed with nursing the need for ambulation to and from bathroom with assistance as well as transfer from bed to chair Abdominal discomfort likely 2/2 Constipation - 06/09- no abdominal pain reported, moving bowels - Lactulose, reports BMs - Monitor Facial rash - Stable - resembles seborrheic dermatitis, patient encouraged to moisturize - ESR 32 - CRP 1.51 - RA- negative - A&D ointment to face Orthostasis - 05/21: IV fluids- NS at 100cc/h - stopped - 05/16: Per PT, patient becomes hypotensive with exertion. adding sodium chloride tablets 1g daily - 05/05: -Supine BP: 114/71, HR 75 -Sitting BP: 113/71, HR 90 -Standing BP: 116/72, HR 94 Anemia; will monitor - 06/12 - Hgb 10.4, improving - 05/30: Hgb trending up - 05/26: may have a component of Fe deficiency, will replete - 05/25: Hgb still low, will get labs with Iron panel tomorrow - 05/22: Hgb 8.7, repeated and was 9.5 - 05/15: hgb 11.0 - chronic - monitor with weekly labs Abdominal Pain; resolved - 06/09- no abdominal pain reported, moving bowels - 05/24: less abd pain, reports BMs - 05/22: continues to complain of straining, will give one time miralax dose - 05/21: restart colace 100mg BID as patient straining to have BM - patient with multiple soft stools- will stop miralax for now - patient has been complaining of abdominal pain since admission - Colace 100mg PO BID - Dulcolax every 3 days - Inguinal hernia with unobstructed bowel loop involvement; protruded 04/18 due to straining on toilet. - 05/03/16 B/L inguinal hernias reduced today without incidence - Abdominal US 04/01: Gallstones, no acute cholecystitis, no hydronephrosis. trace ascites (see full report) - Abd/pelv CT 03/11: mod b/l pleural effusions and assoc consolidations; tiny probably gallstones within the gallbladder; small to moderate hiatal hernia; R inguinal hernia which contains small loops of bowel, likely small bowel- no evidence of obstruction as oral contrast is noted within R colon. No definite free air, however evaluation for pneumoperitoneum is suboptimal. Moderate to severe constipation with questionable impaction. Prostate gland 4.1cm x 4.6cm. Urinary bladder appears unremarkable. Small amount of fluid within a right inguinal hernia. Sclerosis of right iliac wing. Extensive anasarca. Aneursmal dilatation of ascending thoracic aorta; Currently 4.5 cm. Patient needs repeat Ct imaging every 6 months - last CT scan in 03/2016, should be monitored in September, Onychomycosis;chronic and improving - patient had aseptic debridement of toenails x 10 - clotrimazole cream to be applied to feet b/l BID - podiatry following Sacral decubitus- resolved - 05/17- sacrum examined- no sacral ulcers noted - 05/16: patient needs to go from bed to chair to prevent ulcers from re-forming - 04/19: exam revealed a previously healed decubitus ulcer of right buttocks. Sacral exam was clear. - Wound care following - recommending medihoney covered with bordered telfa dressing to right lower buttocks stage 2 pressure ulcer daily. - Pt is OOB to chair with help from PT daily - Order placed for turning patient Q2H History of Urinary Tract Infection - 06/09: No urinary complaints - 05/20: ordered repeat urine culture for urinary frequency - no growth (Final) - 05/17: urine culture negative - 05/16: + nitrates, 4 RBC, occasional bacteria. - urine culture 05/03- no growth - UA 05/05: +nitrates, occasional bacteria Diarrhea- resolved - 06/09: no complaints of diarrhea, complaining of bleeding w/BMs- buttock wound , Silvadene top ordered - 05/22 - resolved - culture negative - 05/18: c. diff negative, no salmonella - 05/17: ova and parasites negative Hypokalemia - Monitor - Replete as needed Syncopal Episode x1- resolved - 05/04/16 CTA- negative for PE (underlying atelectasis new findings compared to the prior study 03/20/2016.) Prophylactic Measure - Labs weekly - Lovenox 40mg SC daily - Pepcid 20mg PO BID - A and D ointment TOP Q*H - Patient is homeless. Used to stay with friend, but no longer welcome there. Goal is to walk with cane so he can go to a jail (will not qualify with a walker) - patient will need to work with PT frequently - right calf with dark skin lesion underneath knee immobilizer- wound care on board- applying [employer] - Reaching out to family in [facility] - no response from family per case management - Social Work is following up - Cannot be discharged to jail due to functional status - Continue to work with PT - No new changes to pt status or plan - Palliative care consulted - pt agrees to DNR/DNI- cont current medical mgmt, rec for Silvadene to buttock <Parker Cantu - Last Filed: 07/12/16 12:26> Objective - Vital Signs/Intake and Output Vital Signs (last 24 hours): Temp Pulse Resp BP Pulse Ox 98.3 F 82 20 102/64 96 07/12/16 09:22 07/12/16 09:22 07/12/16 09:22 07/12/16 09:22 07/12/16 09:22 Intake and Output: 07/12/16 07/12/16 06:59 18:59 Output Total 200 Balance -200 - Medications Medications: Current Medications Acetaminophen (Tylenol 325mg Tab) 650 mg PO Q6 PRN PRN Reason: Pain, Mild (1-3) Last Admin: 07/02/16 21:37 Dose: 650 mg Docusate Sodium (Colace) 100 mg PO BID [facility] Last Admin: 06/30/16 09:13 Dose: Not Given Enoxaparin Sodium (Lovenox) 40 mg SC DAILY [facility] Last Admin: 07/12/16 10:04 Dose: 40 mg Famotidine (Pepcid) 20 mg PO BID [facility] Last Admin: 07/12/16 10:04 Dose: 20 mg Ketoconazole (Nizoral) 0 gm TOP BID [facility] Last Admin: 07/12/16 10:04 Dose: 1 applic Loperamide HCl (Imodium) 2 mg PO QID PRN PRN Reason: Diarrhea Last Admin: 07/01/16 20:22 Dose: 2 mg Magnesium Oxide (Mag-Ox) 400 mg PO BID [facility] Last Admin: 07/12/16 10:04 Dose: 400 mg Polyethylene Glycol (Miralax) 17 gm PO Q2D [facility] Last Admin: 06/29/16 10:44 Dose: Not Given Sodium Chloride (Sodium Chloride Tab) 1 gm PO DAILY@1330 [facility] Last Admin: 07/11/16 14:32 Dose: 1 gm Tamsulosin HCl (Flomax) 0.8 mg PO DAILY [facility] Last Admin: 07/12/16 10:04 Dose: 0.8 mg Tramadol HCl (Ultram) 25 mg PO TID PRN PRN Reason: Pain, moderate (4-7) Last Admin: 07/10/16 09:21 Dose: 25 mg - Labs Labs: 07/10/16 12:53 07/10/16 09:22 Attending/Attestation - Attestation I have personally seen and examined this patient.: Yes I have fully participated in the care of the patient.: Yes I have reviewed all pertinent clinical information, including history, physical exam and plan: Yes Notes (Text): Patient seen and examined with the resident. Agree with the resident's evaluation, assessment and plan. BPH chronic Leg swelling Fracture of tibia, proximal, right, closed
[2016-06-18] MEDS: Silver Sulfadiazine 1% Cream (20 gm) TOP SCH ×2 (04:03→16:57)
[2016-06-18] MEDS: Tramadol 25 mg PO PRN (09:35)
[2016-06-18] MEDS: Magnesium Oxide 400 mg Tab UD PO SCH ×2 (09:36→18:26)
[2016-06-18] MEDS: Clotrimazole 1% Cream 15 GM TUBE TOP SCH ×2 (09:37→18:26)
[2016-06-18] MEDS: POLYETHYLENE GLYCOL 3350 17 GM/Dose PACKET PO SCH (14:43)
[2016-06-19] MEDS: Silver Sulfadiazine 1% Cream (20 gm) TOP SCH ×5 (04:28→21:49)
[2016-06-19 07:04] LABS: ALBUMIN 3.7 g/dL (3.5-5.0)
[2016-06-19 07:07] LABS: AST/SGOT 18 U/L (17-59); BLOOD UREA NITROGEN 15 mg/dL (9-20); GFR AFRICAN-AMERICAN > 60; GFR NON-AFRICAN AMERICAN > 60
[2016-06-19 07:08] LABS: ALT/SGPT 13 U/L (21-72); BASO % 0.5 % (0.0-2.0); CALCIUM 8.6 mg/dl (8.6-10.4); EOS # 0.1 K/uL (0.0-0.7); EOS % 3.2 % (0.0-4.0); HEMOGLOBIN 11.5 g/dL (12.0-18.0); LYMPH # 1.7 K/uL (1.0-4.3); LYMPH % 39.4 % (20.0-40.0); MAGNESIUM 1.8 mg/dL (1.6-2.3); MEAN CELL VOLUME 99.2 fL (80.0-94.0); MEAN CORPUSCULAR HEMOGLOBIN 32.4 pg (27.0-31.0); MEAN CORPUSCULAR HGB CONC 32.7 g/dL (33.0-37.0); MEAN PLATELET VOLUME 8.1 fL (7.2-11.7); MONO # 0.4 K/uL (0.0-0.8); NEUT # 2.1 K/uL (1.8-7.0); NEUT % 46.9 % (50.0-75.0); RBC 3.54 Mil/uL (4.40-5.90); RED CELL DISTRIBUTION WIDTH 13.6 % (11.5-14.5); WHITE BLOOD COUNT 4.4 K/uL (4.8-10.8)
--- NOTE | 2016-06-19 08:30 | CP.PCM.PN ---
<Kwame Sears - Last Filed: 06/19/16 10:29> Subjective - Date & Time of Evaluation Date of Evaluation: 06/19/16 Time of Evaluation: 09:30 - Subjective Subjective: PGY-1 Medicine Progress Note for Dr. Wiggins Patient seen and examined at bedside. No acute event overnight. He admits to the same chronic pain in his lower extremities and in his right hip. Patient has no acute complaints at this time. He is tolerating diet and having BMs. Denies headaches, dizziness, change in vision, fever, chills, chest pain, sob, abdominal pain, nausea/vomiting, diarrhea/constipation. Objective - Vital Signs/Intake and Output Vital Signs (last 24 hours): Temp Pulse Resp BP Pulse Ox 98.2 F 79 20 106/67 96 06/19/16 00:28 06/19/16 00:28 06/19/16 00:28 06/19/16 00:28 06/19/16 00:28 Intake and Output: 06/19/16 06/19/16 06:59 18:59 Intake Total 300 Balance 300 - Medications Medications: Current Medications Acetaminophen (Tylenol 325mg Tab) 650 mg PO Q6 PRN PRN Reason: Pain, Mild (1-3) Last Admin: 06/14/16 01:00 Dose: 650 mg Carbamide Peroxide (Debrox Ear Drops) 1 ml AU BID [facility] Last Admin: 06/18/16 18:25 Dose: 5 drop Clotrimazole (Lotrimin 1%) 0 gm TOP BID [facility] Last Admin: 06/18/16 18:26 Dose: 1 applic Docusate Sodium (Colace) 100 mg PO BID [facility] Last Admin: 06/18/16 18:25 Dose: 100 mg Famotidine (Pepcid) 20 mg PO BID [facility] Last Admin: 06/18/16 18:26 Dose: 20 mg Heparin Sodium (Porcine) (Heparin) 5,000 units SC Q8 [facility] Last Admin: 06/19/16 05:55 Dose: 5,000 units Magnesium Oxide (Mag-Ox) 400 mg PO BID [facility] Last Admin: 06/18/16 18:26 Dose: 400 mg Polyethylene Glycol (Miralax) 17 gm PO Q2D [facility] Last Admin: 06/18/16 14:43 Dose: Not Given Silver Sulfadiazine (Silvadene 1% 20 Gm) 0 ea TOP Q12H [facility] Last Admin: 06/19/16 04:28 Dose: 1 applic Sodium Chloride (Sodium Chloride Tab) 1 gm PO DAILY@1330 [facility] Last Admin: 06/18/16 14:40 Dose: 1 gm Tamsulosin HCl (Flomax) 0.8 mg PO DAILY [facility] Last Admin: 06/18/16 09:36 Dose: 0.8 mg Tramadol HCl (Ultram) 25 mg PO TID PRN PRN Reason: Pain, moderate (4-7) Last Admin: 06/18/16 09:35 Dose: 25 mg - Labs Labs: 06/19/16 06:49 06/19/16 06:49 - Constitutional Appears: Well, Non-toxic, No Acute Distress - Head Exam Head Exam: ATRAUMATIC, NORMOCEPHALIC - Eye Exam Eye Exam: EOMI, Normal appearance Pupil Exam: PERRL - ENT Exam ENT Exam: Mucous Membranes Moist - Neck Exam Neck Exam: Normal Inspection - Respiratory Exam Respiratory Exam: Clear to Ausculation Bilateral, NORMAL BREATHING PATTERN - Cardiovascular Exam Cardiovascular Exam: RRR, +S1, +S2 - GI/Abdominal Exam GI & Abdominal Exam: Soft, Normal Bowel Sounds. absent: Tenderness - Extremities Exam Extremities Exam: Normal Capillary Refill, Tenderness Additional comments: immobilizer on left leg - Back Exam Back Exam: absent: CVA tenderness (L), CVA tenderness (R) - Neurological Exam Neurological Exam: Alert, Awake, CN II-XII Intact, Oriented x3 Additional comments: ambulating with rolling walker - Psychiatric Exam Psychiatric exam: Normal Affect, Normal Mood - Skin Skin Exam: Dry, Intact, Normal Color, Warm Assessment and Plan - Assessment and Plan (Free Text) Plan: BPH;chronic -No plans from urology as of yet - possible Cysto - Flomax 0.8 mg PO daily - Urology Dr. Hughes on board - will f/u with recs concerning inpatient TURP - 05/18: Pyridium 200 mg PO TIDPC- discontinued Leg swelling -06/09: No changes - 05/23: will order left leg US to r/o DVT - negative for DVT or any other abnormalities - 05/20: venous doppler ordered - read as: No evidence of deep or superficial vein thrombosis of the right lower extremity with excellent venous flow. Normal valve function noted of the right side. Normal venous flow noted in the left common femoral vein. Fracture of tibia, proximal, right, closed; pain management and physical therapy -06/08- re-ordered PT eval - 06/08 - Stable - 05/31 - per ortho - Advance to 10% TTWB RLE, plan repeat xrays in 2 weeks and reassess, continue knee immobilizer, PT order updated - 05/29 - Cont to work with PT. Able to ambulate with walker, NWB on right LE. -05/27- cont current mgmt - 05/24 - continue with current management. - 05/20- ordered venous doppler right leg for swelling - results as above - 05/18- repeat xray with no significant change - 05/11- per ortho team: patient to remain non-weight bearing to right lower extremity - 05/09- right knee xrays ordered by orthopedics team- No acute fracture. Status post ORIF old patellar fracture No significant interval change compared to the prior examination Will follow up recommendations from orthopedics team - 05/05:Ortho Dr. Pino and Jayce West PA following- no orthopedic intervention indicated at this time, strict NWB, PT/OT - Impaction/insufficiency fracture, lateral aspect proximal tibia, non operative , treated with strict NWB and immobilization - At least 6 weeks old by imaging - Tylenol 650 mg PO Q6 PRN mild pain - Tramadol 25mg TID pRN - Daily physical therapy - Nonweight bearing on R leg - L knee x-ray: severe osteopenia. Sclerotic changes about the posterior proximal tibia may relate to a sclerotic healing response of a prior stress fracture here. no tibial plateau depressed fracture. The sclerosis is perceived on the prior 04/21 study; no interval pathology appreciated between 2 exams. If symptoms worsen consider MRI. 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 sclerosi about right acetabulum - daily physical therapy - PT 05/05: decline in transfers due to limitation from right hip and knee pain. patient still able to tolerate hallway ambulation, no episode of orthostatic hypotension post gait. recommending room/hallway ambulation w/ nursing for AM/ PM care or toileting. - PT 05/09: decline in function limited by persisting right groin/ hip and knee pain. patient still recommended for daily out of bed during am/pm care. cleared for ambulation in the room with standard walker non weight bearing right lower extremity - PT 05/10: mild decline in transfers due to pain in right knee and hip. NWB to RLE. Patient with episode of hypotension post ambulation- no syncope. - 05/16: discussed with PT. Patient function declining due to immobility. Patient needs to go from bed to chair. Patient should also be ambulating to the bathroom with assist. Patient becomes hypotensive with walking. - 05/17: patient assisted to chair. discussed with nursing the need for ambulation to and from bathroom with assistance as well as transfer from bed to chair Abdominal discomfort likely / Constipation - 06/09- no abdominal pain reported, moving bowels - Lactulose, reports BMs - Monitor Facial rash - Stable - resembles seborrheic dermatitis, patient encouraged to moisturize - ESR 32 - CRP 1.51 - RA- negative - A&D ointment to face Orthostasis - 05/21: IV fluids- NS at 100cc/h - stopped - 05/16: Per PT, patient becomes hypotensive with exertion. adding sodium chloride tablets 1g daily - 05/05: -Supine BP: 114/71, HR 75 -Sitting BP: 113/71, HR 90 -Standing BP: 116/72, HR 94 Anemia; will monitor - 06/12 - Hgb 10.4, improving - 05/30: Hgb trending up - 05/26: may have a component of Fe deficiency, will replete - 05/25: Hgb still low, will get labs with Iron panel tomorrow - 05/22: Hgb 8.7, repeated and was 9.5 - 05/15: hgb 11.0 - chronic - monitor with weekly labs Abdominal Pain; resolved - 06/09- no abdominal pain reported, moving bowels - 05/24: less abd pain, reports BMs - 05/22: continues to complain of straining, will give one time miralax dose - 05/21: restart colace 100mg BID as patient straining to have BM - patient with multiple soft stools- will stop miralax for now - patient has been complaining of abdominal pain since admission - Colace 100mg PO BID - Dulcolax every 3 days - Inguinal hernia with unobstructed bowel loop involvement; protruded 04/18 due to straining on toilet. - 05/03/16 B/L inguinal hernias reduced today without incidence - Abdominal US 04/01: Gallstones, no acute cholecystitis, no hydronephrosis. trace ascites (see full report) - Abd/pelv CT 03/11: mod b/l pleural effusions and assoc consolidations; tiny probably gallstones within the gallbladder; small to moderate hiatal hernia; R inguinal hernia which contains small loops of bowel, likely small bowel- no evidence of obstruction as oral contrast is noted within R colon. No definite free air, however evaluation for pneumoperitoneum is suboptimal. Moderate to severe constipation with questionable impaction. Prostate gland 4.1cm x 4.6cm. Urinary bladder appears unremarkable. Small amount of fluid within a right inguinal hernia. Sclerosis of right iliac wing. Extensive anasarca. Aneursmal dilatation of ascending thoracic aorta; Currently 4.5 cm. Patient needs repeat Ct imaging every 6 months - last CT scan in 03/2016, should be monitored in September, Onychomycosis;chronic and improving - patient had aseptic debridement of toenails x 10 - clotrimazole cream to be applied to feet b/l BID - podiatry following Sacral decubitus- resolved - 05/17- sacrum examined- no sacral ulcers noted - 05/16: patient needs to go from bed to chair to prevent ulcers from re-forming - 04/19: exam revealed a previously healed decubitus ulcer of right buttocks. Sacral exam was clear. - Wound care following - recommending medihoney covered with bordered telfa dressing to right lower buttocks stage 2 pressure ulcer daily. - Pt is OOB to chair with help from PT daily - Order placed for turning patient Q2H History of Urinary Tract Infection - 06/09: No urinary complaints - 05/20: ordered repeat urine culture for urinary frequency - no growth (Final) - 05/17: urine culture negative - 05/16: + nitrates, 4 RBC, occasional bacteria. - urine culture 05/03- no growth - UA 05/05: +nitrates, occasional bacteria Diarrhea- resolved - 06/09: no complaints of diarrhea, complaining of bleeding w/BMs- buttock wound , Silvadene top ordered - 05/22 - resolved - culture negative - 05/18: c. diff negative, no salmonella - 05/17: ova and parasites negative Hypokalemia - Monitor - Replete as needed Syncopal Episode x1- resolved - 05/04/16 CTA- negative for PE (underlying atelectasis new findings compared to the prior study 03/20/2016.) Prophylactic Measure - Labs weekly on Sunday - Lovenox 40mg SC daily - Pepcid 20mg PO BID - A and D ointment TOP Q*H - Patient is homeless. Used to stay with friend, but no longer welcome there. Goal is to walk with cane so he can go to a skilled nursing (will not qualify with a walker) - patient will need to work with PT frequently - right calf with dark skin lesion underneath knee immobilizer, wound care on board - applying medihoney Disposition - Reaching out to family in [facility] - no response from family per case management - Social Work is following up - Cannot be discharged to skilled nursing due to functional status - Continue to work with PT - No new changes to pt status or plan - Palliative care consulted - pt agrees to DNR/DNI- cont current medical mgmt, rec for Silvadene to buttock <Jose Wiggins - Last Filed: 06/19/16 16:29> Objective - Vital Signs/Intake and Output Vital Signs (last 24 hours): Temp Pulse Resp BP Pulse Ox 98.0 F 81 20 104/70 97 06/19/16 10:15 06/19/16 10:15 06/19/16 10:15 06/19/16 10:15 06/19/16 10:15 Intake and Output: 06/19/16 06/19/16 06:59 18:59 Intake Total 500 240 Output Total 480 440 Balance 20 -200 - Medications Medications: Current Medications Acetaminophen (Tylenol 325mg Tab) 650 mg PO Q6 PRN PRN Reason: Pain, Mild (1-3) Carbamide Peroxide (Debrox Ear Drops) 1 ml AU BID [facility] Last Admin: 06/19/16 11:46 Dose: Not Given Clotrimazole (Lotrimin 1%) 0 gm TOP BID [facility] Last Admin: 06/19/16 11:46 Dose: 1 applic Docusate Sodium (Colace) 100 mg PO BID [facility] Last Admin: 06/19/16 11:35 Dose: 100 mg Famotidine (Pepcid) 20 mg PO BID [facility] Last Admin: 06/19/16 12:02 Dose: 20 mg Heparin Sodium (Porcine) (Heparin) 5,000 units SC Q8 [facility] Last Admin: 06/19/16 14:20 Dose: 5,000 units Magnesium Oxide (Mag-Ox) 400 mg PO BID [facility] Last Admin: 06/19/16 11:34 Dose: 400 mg Polyethylene Glycol (Miralax) 17 gm PO Q2D [facility] Last Admin: 06/19/16 11:36 Dose: Not Given Silver Sulfadiazine (Silvadene 1% 20 Gm) 0 ea TOP Q12H [facility] Last Admin: 06/19/16 12:50 Dose: Not Given Sodium Chloride (Sodium Chloride Tab) 1 gm PO DAILY@1330 [facility] Last Admin: 06/19/16 14:15 Dose: 1 gm Tamsulosin HCl (Flomax) 0.8 mg PO DAILY [facility] Last Admin: 06/19/16 11:32 Dose: 0.8 mg Tramadol HCl (Ultram) 25 mg PO TID PRN PRN Reason: Pain, moderate (4-7) Last Admin: 06/19/16 09:39 Dose: 25 mg - Labs Labs: 06/19/16 06:49 06/19/16 06:49 Attending/Attestation - Attestation I have personally seen and examined this patient.: Yes I have fully participated in the care of the patient.: Yes I have reviewed all pertinent clinical information, including history, physical exam and plan: Yes Notes (Text): 06/19/16 16:29 Patient was seen and examined at bedside with the resident No change in clinical condition and sent still complains of pain in the right leg Leg brace is in place. We will continue physical therapy daily Patient to is unsafe for discharge at this time Continue physical therapy and discharge planning when patient is stronger.
[2016-06-19] MEDS: Tramadol 25 mg PO PRN ×2 (09:39→17:54)
[2016-06-19] MEDS: Magnesium Oxide 400 mg Tab UD PO SCH ×2 (11:34→17:54)
[2016-06-19] MEDS: POLYETHYLENE GLYCOL 3350 17 GM/Dose PACKET PO SCH (11:36)
[2016-06-19] MEDS: Clotrimazole 1% Cream 15 GM TUBE TOP SCH ×3 (11:44→17:57)
[2016-06-20] MEDS: Silver Sulfadiazine 1% Cream (20 gm) TOP SCH ×2 (08:46→21:46)
[2016-06-20] MEDS: Tramadol 25 mg PO PRN ×2 (08:54→21:52)
--- NOTE | 2016-06-20 09:18 | CP.PCM.PN ---
<Kwame Sears - Last Filed: 06/20/16 13:41> Subjective - Date & Time of Evaluation Date of Evaluation: 06/20/16 Time of Evaluation: 07:30 - Subjective Subjective: PGY-1 Medicine Progress Note for Dr. Wiggins Patient seen and examined at bedside. No acute event overnight. He is still having pain in his lower extremities and in his right hip. He is tolerating diet and having BMs. Ambulating with rolling walker. Denied headaches, dizziness , fever/chills, chest pain, sob, abdominal pain, nausea/vomiting/diarrhea and constipation. Objective - Vital Signs/Intake and Output Vital Signs (last 24 hours): Temp Pulse Resp BP Pulse Ox 98 F 69 20 120/71 97 06/20/16 07:53 06/20/16 07:53 06/20/16 07:53 06/20/16 07:53 06/20/16 07:53 Intake and Output: 06/20/16 06/20/16 06:59 18:59 Intake Total 550 Output Total 900 Balance -350 - Medications Medications: Current Medications Acetaminophen (Tylenol 325mg Tab) 650 mg PO Q6 PRN PRN Reason: Pain, Mild (1-3) Last Admin: 06/19/16 21:49 Dose: 650 mg Carbamide Peroxide (Debrox Ear Drops) 1 ml AU BID [facility] Last Admin: 06/19/16 17:56 Dose: 5 drop Clotrimazole (Lotrimin 1%) 0 gm TOP BID [facility] Last Admin: 06/19/16 17:57 Dose: 1 applic Docusate Sodium (Colace) 100 mg PO BID [facility] Last Admin: 06/19/16 17:54 Dose: 100 mg Famotidine (Pepcid) 20 mg PO BID [facility] Last Admin: 06/19/16 17:54 Dose: 20 mg Heparin Sodium (Porcine) (Heparin) 5,000 units SC Q8 [facility] Last Admin: 06/20/16 06:09 Dose: 5,000 units Magnesium Oxide (Mag-Ox) 400 mg PO BID [facility] Last Admin: 06/19/16 17:54 Dose: 400 mg Polyethylene Glycol (Miralax) 17 gm PO Q2D [facility] Last Admin: 06/19/16 11:36 Dose: Not Given Silver Sulfadiazine (Silvadene 1% 20 Gm) 0 ea TOP Q12H [facility] Last Admin: 06/20/16 08:46 Dose: Not Given Sodium Chloride (Sodium Chloride Tab) 1 gm PO DAILY@1330 [facility] Last Admin: 06/19/16 14:15 Dose: 1 gm Tamsulosin HCl (Flomax) 0.8 mg PO DAILY [facility] Last Admin: 06/19/16 11:32 Dose: 0.8 mg Tramadol HCl (Ultram) 25 mg PO TID PRN PRN Reason: Pain, moderate (4-7) Last Admin: 06/20/16 08:54 Dose: 25 mg - Labs Labs: 06/19/16 06:49 06/19/16 06:49 - Constitutional Appears: No Acute Distress - Head Exam Head Exam: ATRAUMATIC, NORMOCEPHALIC - Eye Exam Eye Exam: EOMI, Normal appearance Pupil Exam: PERRL - ENT Exam ENT Exam: Mucous Membranes Moist - Neck Exam Neck Exam: Normal Inspection - Respiratory Exam Respiratory Exam: Clear to Ausculation Bilateral, NORMAL BREATHING PATTERN - Cardiovascular Exam Cardiovascular Exam: REGULAR RHYTHM, +S1, +S2 - GI/Abdominal Exam GI & Abdominal Exam: Soft, Normal Bowel Sounds. absent: Tenderness - Extremities Exam Extremities Exam: Normal Capillary Refill, Tenderness Additional comments: immobilizer on right leg - Back Exam Back Exam: absent: CVA tenderness (L), CVA tenderness (R) - Neurological Exam Neurological Exam: Alert, Awake, CN II-XII Intact, Oriented x3 Additional comments: ambulates with rolling walker - Psychiatric Exam Psychiatric exam: Normal Affect, Normal Mood - Skin Skin Exam: Dry, Intact, Normal Color, Warm Assessment and Plan - Assessment and Plan (Free Text) Plan: BPH -No plans from urology as of yet - possible Cysto - Flomax 0.8 mg PO daily - Urology Dr. Hughes on board - will f/u with recs concerning inpatient TURP - 05/18: Pyridium 200 mg PO TIDPC- discontinued Leg swelling -06/09: No changes - 05/23: will order left leg US to r/o DVT - negative for DVT or any other abnormalities - 05/20: venous doppler ordered - read as: No evidence of deep or superficial vein thrombosis of the right lower extremity with excellent venous flow. Normal valve function noted of the right side. Normal venous flow noted in the left common femoral vein. Fracture of tibia, proximal, right, closed; pain management and physical therapy -06/08- re-ordered PT eval - 06/08 - Stable - 05/31 - per ortho - Advance to 10% TTWB RLE, plan repeat xrays in 2 weeks and reassess, continue knee immobilizer, PT order updated - 05/29 - Cont to work with PT. Able to ambulate with walker, NWB on right LE. -05/27- cont current mgmt - 05/24 - continue with current management. - 05/20- ordered venous doppler right leg for swelling - results as above - 05/18- repeat xray with no significant change - 05/11- per ortho team: patient to remain non-weight bearing to right lower extremity - 05/09- right knee xrays ordered by orthopedics team- No acute fracture. Status post ORIF old patellar fracture No significant interval change compared to the prior examination Will follow up recommendations from orthopedics team - 05/05:Ortho Dr. Pino and Jayce West PA following- no orthopedic intervention indicated at this time, strict NWB, PT/OT - Impaction/insufficiency fracture, lateral aspect proximal tibia, non operative , treated with strict NWB and immobilization - At least 6 weeks old by imaging - Tylenol 650 mg PO Q6 PRN mild pain - Tramadol 25mg TID pRN - Daily physical therapy - Nonweight bearing on R leg - L knee x-ray: severe osteopenia. Sclerotic changes about the posterior proximal tibia may relate to a sclerotic healing response of a prior stress fracture here. no tibial plateau depressed fracture. The sclerosis is perceived on the prior 04/21 study; no interval pathology appreciated between 2 exams. If symptoms worsen consider MRI. 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 sclerosi about right acetabulum - daily physical therapy - PT 05/05: decline in transfers due to limitation from right hip and knee pain. patient still able to tolerate hallway ambulation, no episode of orthostatic hypotension post gait. recommending room/hallway ambulation w/ nursing for AM/ PM care or toileting. - PT 05/09: decline in function limited by persisting right groin/ hip and knee pain. patient still recommended for daily out of bed during am/pm care. cleared for ambulation in the room with standard walker non weight bearing right lower extremity - PT 05/10: mild decline in transfers due to pain in right knee and hip. NWB to RLE. Patient with episode of hypotension post ambulation- no syncope. - 05/16: discussed with PT. Patient function declining due to immobility. Patient needs to go from bed to chair. Patient should also be ambulating to the bathroom with assist. Patient becomes hypotensive with walking. - 05/17: patient assisted to chair. discussed with nursing the need for ambulation to and from bathroom with assistance as well as transfer from bed to chair Abdominal discomfort likely 04/13 Constipation - 06/09- no abdominal pain reported, moving bowels - Lactulose, reports BMs - Monitor Facial rash - Stable - resembles seborrheic dermatitis, patient encouraged to moisturize - ESR 32 - CRP 1.51 - RA- negative - A&D ointment to face Orthostasis - 05/21: IV fluids- NS at 100cc/h - stopped - 05/16: Per PT, patient becomes hypotensive with exertion. adding sodium chloride tablets 1g daily - 05/05: -Supine BP: 114/71, HR 75 -Sitting BP: 113/71, HR 90 -Standing BP: 116/72, HR 94 Anemia; will monitor - 06/12 - Hgb 10.4, improving - 05/30: Hgb trending up - 05/26: may have a component of Fe deficiency, will replete - 05/25: Hgb still low, will get labs with Iron panel tomorrow - 05/22: Hgb 8.7, repeated and was 9.5 - 05/15: hgb 11.0 - chronic - monitor with weekly labs Abdominal Pain; resolved - 06/09- no abdominal pain reported, moving bowels - 05/24: less abd pain, reports BMs - 05/22: continues to complain of straining, will give one time miralax dose - 05/21: restart colace 100mg BID as patient straining to have BM - patient with multiple soft stools- will stop miralax for now - patient has been complaining of abdominal pain since admission - Colace 100mg PO BID - Dulcolax every 3 days - Inguinal hernia with unobstructed bowel loop involvement; protruded 04/18 due to straining on toilet. - 05/03/16 B/L inguinal hernias reduced today without incidence - Abdominal US 04/01: Gallstones, no acute cholecystitis, no hydronephrosis. trace ascites (see full report) - Abd/pelv CT 03/11: mod b/l pleural effusions and assoc consolidations; tiny probably gallstones within the gallbladder; small to moderate hiatal hernia; R inguinal hernia which contains small loops of bowel, likely small bowel- no evidence of obstruction as oral contrast is noted within R colon. No definite free air, however evaluation for pneumoperitoneum is suboptimal. Moderate to severe constipation with questionable impaction. Prostate gland 4.1cm x 4.6cm. Urinary bladder appears unremarkable. Small amount of fluid within a right inguinal hernia. Sclerosis of right iliac wing. Extensive anasarca. Aneursmal dilatation of ascending thoracic aorta; Currently 4.5 cm. Patient needs repeat Ct imaging every 6 months - last CT scan in 03/2016, should be monitored in September, Onychomycosis;chronic and improving - patient had aseptic debridement of toenails x 10 - clotrimazole cream to be applied to feet b/l BID - podiatry following Sacral decubitus- resolved - 05/17- sacrum examined- no sacral ulcers noted - 05/16: patient needs to go from bed to chair to prevent ulcers from re-forming - 04/19: exam revealed a previously healed decubitus ulcer of right buttocks. Sacral exam was clear. - Wound care following - recommending medihoney covered with bordered telfa dressing to right lower buttocks stage 2 pressure ulcer daily. - Pt is OOB to chair with help from PT daily - Order placed for turning patient Q2H History of Urinary Tract Infection - 06/09: No urinary complaints - 05/20: ordered repeat urine culture for urinary frequency - no growth (Final) - 05/17: urine culture negative - 05/16: + nitrates, 4 RBC, occasional bacteria. - urine culture 05/03- no growth - UA 05/05: +nitrates, occasional bacteria Diarrhea- resolved - 06/09: no complaints of diarrhea, complaining of bleeding w/BMs- buttock wound , Silvadene top ordered - 05/22 - resolved - culture negative - 05/18: c. diff negative, no salmonella - 05/17: ova and parasites negative Hypokalemia - Monitor - Replete as needed Syncopal Episode x1- resolved - 05/04/16 CTA- negative for PE (underlying atelectasis new findings compared to the prior study 03/20/2016.) Prophylactic Measure - Labs weekly on Sunday - Lovenox 40mg SC daily - Pepcid 20mg PO BID - A and D ointment TOP Q*H - Patient is homeless. Used to stay with friend, but no longer welcome there. Goal is to walk with cane so he can go to a [place] [facility] (will not qualify with a walker) - patient will need to work with PT frequently - right calf with dark skin lesion underneath knee immobilizer, wound care on board - applying medihoney Disposition - Reaching out to family in [facility] - no response from family per case management - Social Work is following up - Cannot be discharged to [place] [facility] due to functional status - Continue to work with PT - No new changes to pt status or plan - Palliative care consulted - pt agrees to DNR/DNI- cont current medical mgmt, rec for Silvadene to buttock <Jose Wiggins - Last Filed: 06/21/16 08:50> Objective - Vital Signs/Intake and Output Vital Signs (last 24 hours): Temp Pulse Resp BP Pulse Ox 98.4 F 77 20 132/79 97 06/21/16 07:39 06/21/16 07:39 06/21/16 07:39 06/21/16 07:39 06/21/16 07:39 Intake and Output: 06/21/16 06/21/16 06:59 18:59 Intake Total 350 Output Total 870 Balance -520 - Medications Medications: Current Medications Acetaminophen (Tylenol 325mg Tab) 650 mg PO Q6 PRN PRN Reason: Pain, Mild (1-3) Last Admin: 06/19/16 21:49 Dose: 650 mg Carbamide Peroxide (Debrox Ear Drops) 1 ml AU BID [facility] Last Admin: 06/20/16 17:17 Dose: 5 drop Clotrimazole (Lotrimin 1%) 0 gm TOP BID [facility] Last Admin: 06/20/16 17:18 Dose: 1 applic Docusate Sodium (Colace) 100 mg PO BID [facility] Last Admin: 06/20/16 17:16 Dose: 100 mg Famotidine (Pepcid) 20 mg PO BID [facility] Last Admin: 06/20/16 17:16 Dose: 20 mg Heparin Sodium (Porcine) (Heparin) 5,000 units SC Q8 [facility] Last Admin: 06/21/16 05:32 Dose: 5,000 units Magnesium Oxide (Mag-Ox) 400 mg PO BID [facility] Last Admin: 06/20/16 17:17 Dose: 400 mg Polyethylene Glycol (Miralax) 17 gm PO Q2D [facility] Last Admin: 06/19/16 11:36 Dose: Not Given Silver Sulfadiazine (Silvadene 1% 20 Gm) 0 ea TOP Q12H [facility] Last Admin: 06/20/16 21:46 Dose: Not Given Sodium Chloride (Sodium Chloride Tab) 1 gm PO DAILY@1330 [facility] Last Admin: 06/20/16 13:59 Dose: 1 gm Tamsulosin HCl (Flomax) 0.8 mg PO DAILY [facility] Last Admin: 06/20/16 11:02 Dose: 0.8 mg Tramadol HCl (Ultram) 25 mg PO TID PRN PRN Reason: Pain, moderate (4-7) Last Admin: 06/21/16 05:32 Dose: 25 mg - Labs Labs: 06/19/16 06:49 06/19/16 06:49 Attending/Attestation - Attestation I have personally seen and examined this patient.: Yes I have fully participated in the care of the patient.: Yes I have reviewed all pertinent clinical information, including history, physical exam and plan: Yes Notes (Text): 06/21/16 08:49 Patient was seen and examined at bedside with the resident Please no change in clinical condition Patient still complains of for right lower extremity pain Bilateral swelling noted in the lower extremities However the swelling is chronic and patient is to keep the legs elevated as much as possible. We will continue physical therapy daily Discussed with case management Patient is an unsafe discharge for now. Discussed the plan of care with the resident and agree with the above assessment and plan as documented.
[2016-06-20] MEDS: Magnesium Oxide 400 mg Tab UD PO SCH ×2 (11:03→17:17)
[2016-06-20] MEDS: Clotrimazole 1% Cream 15 GM TUBE TOP SCH ×2 (11:03→17:18)
[2016-06-21] MEDS: Tramadol 25 mg PO PRN ×3 (05:32→22:30)
[2016-06-21] MEDS: Silver Sulfadiazine 1% Cream (20 gm) TOP SCH ×2 (08:49→22:27)
[2016-06-21] MEDS: POLYETHYLENE GLYCOL 3350 17 GM/Dose PACKET PO SCH (08:50)
--- NOTE | 2016-06-21 10:09 | CP.PCM.PN ---
<Kwame Sears - Last Filed: 06/21/16 14:01> Subjective - Date & Time of Evaluation Date of Evaluation: 06/21/16 Time of Evaluation: 08:00 - Subjective Subjective: PGY-1 Medicine Progress Note for Dr. Wiggins Patient seen and examined at bedside. No acute event overnight. He is still having same chronic pain. He is tolerating diet and having BMs. Ambulating with rolling walker. Denied fever/chills, chest pain, sob, abdominal pain, nausea/ vomiting/diarrhea and constipation. Objective - Vital Signs/Intake and Output Vital Signs (last 24 hours): Temp Pulse Resp BP Pulse Ox 98.4 F 77 20 132/79 97 06/21/16 07:39 06/21/16 07:39 06/21/16 07:39 06/21/16 07:39 06/21/16 07:39 Intake and Output: 06/21/16 06/21/16 06:59 18:59 Intake Total 350 Output Total 870 Balance -520 - Medications Medications: Current Medications Acetaminophen (Tylenol 325mg Tab) 650 mg PO Q6 PRN PRN Reason: Pain, Mild (1-3) Last Admin: 06/19/16 21:49 Dose: 650 mg Carbamide Peroxide (Debrox Ear Drops) 1 ml AU BID [facility] Last Admin: 06/20/16 17:17 Dose: 5 drop Clotrimazole (Lotrimin 1%) 0 gm TOP BID [facility] Last Admin: 06/20/16 17:18 Dose: 1 applic Docusate Sodium (Colace) 100 mg PO BID [facility] Last Admin: 06/20/16 17:16 Dose: 100 mg Enoxaparin Sodium (Lovenox) 40 mg SC DAILY [facility] Famotidine (Pepcid) 20 mg PO BID [facility] Last Admin: 06/20/16 17:16 Dose: 20 mg Magnesium Oxide (Mag-Ox) 400 mg PO BID [facility] Last Admin: 06/20/16 17:17 Dose: 400 mg Polyethylene Glycol (Miralax) 17 gm PO Q2D [facility] Last Admin: 06/21/16 08:50 Dose: Not Given Silver Sulfadiazine (Silvadene 1% 20 Gm) 0 ea TOP Q12H [facility] Last Admin: 06/21/16 08:49 Dose: Not Given Sodium Chloride (Sodium Chloride Tab) 1 gm PO DAILY@1330 [facility] Last Admin: 06/20/16 13:59 Dose: 1 gm Tamsulosin HCl (Flomax) 0.8 mg PO DAILY [facility] Last Admin: 06/20/16 11:02 Dose: 0.8 mg Tramadol HCl (Ultram) 25 mg PO TID PRN PRN Reason: Pain, moderate (4-7) Last Admin: 06/21/16 05:32 Dose: 25 mg - Labs Labs: 06/19/16 06:49 06/19/16 06:49 - Constitutional Appears: No Acute Distress - Head Exam Head Exam: ATRAUMATIC, NORMOCEPHALIC - Eye Exam Eye Exam: EOMI, Normal appearance Pupil Exam: PERRL - ENT Exam ENT Exam: Mucous Membranes Moist - Neck Exam Neck Exam: Normal Inspection - Respiratory Exam Respiratory Exam: Clear to Ausculation Bilateral, NORMAL BREATHING PATTERN - Cardiovascular Exam Cardiovascular Exam: REGULAR RHYTHM, +S1, +S2 - GI/Abdominal Exam GI & Abdominal Exam: Soft, Normal Bowel Sounds. absent: Tenderness - Extremities Exam Extremities Exam: Normal Capillary Refill, Tenderness - Back Exam Back Exam: absent: CVA tenderness (L), CVA tenderness (R) - Neurological Exam Neurological Exam: Alert, Awake, CN II-XII Intact, Oriented x3 - Psychiatric Exam Psychiatric exam: Normal Affect, Normal Mood - Skin Skin Exam: Dry, Intact, Normal Color, Warm Assessment and Plan - Assessment and Plan (Free Text) Plan: BPH -No plans from urology as of yet - possible Cysto - Flomax 0.8 mg PO daily - Urology Dr. Hughes on board - will f/u with recs concerning inpatient TURP - 05/18: Pyridium 200 mg PO TIDPC- discontinued Leg swelling -06/09: No changes - 05/23: will order left leg US to r/o DVT - negative for DVT or any other abnormalities - 05/20: venous doppler ordered - read as: No evidence of deep or superficial vein thrombosis of the right lower extremity with excellent venous flow. Normal valve function noted of the right side. Normal venous flow noted in the left common femoral vein. Fracture of tibia, proximal, right, closed; pain management and physical therapy -06/08- re-ordered PT eval - 06/08 - Stable - 05/31 - per ortho - Advance to 10% TTWB RLE, plan repeat xrays in 2 weeks and reassess, continue knee immobilizer, PT order updated - 05/29 - Cont to work with PT. Able to ambulate with walker, NWB on right LE. -05/27- cont current mgmt - 05/24 - continue with current management. - 05/20- ordered venous doppler right leg for swelling - results as above - 05/18- repeat xray with no significant change - 05/11- per ortho team: patient to remain non-weight bearing to right lower extremity - 05/09- right knee xrays ordered by orthopedics team- No acute fracture. Status post ORIF old patellar fracture No significant interval change compared to the prior examination Will follow up recommendations from orthopedics team - 05/05:Ortho Dr. Pino and Jayce West PA following- no orthopedic intervention indicated at this time, strict NWB, PT/OT - Impaction/insufficiency fracture, lateral aspect proximal tibia, non operative , treated with strict NWB and immobilization - At least 6 weeks old by imaging - Tylenol 650 mg PO Q6 PRN mild pain - Tramadol 25mg TID pRN - Daily physical therapy - Nonweight bearing on R leg - L knee x-ray: severe osteopenia. Sclerotic changes about the posterior proximal tibia may relate to a sclerotic healing response of a prior stress fracture here. no tibial plateau depressed fracture. The sclerosis is perceived on the prior 04/21 study; no interval pathology appreciated between 2 exams. If symptoms worsen consider MRI. 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 sclerosi about right acetabulum - daily physical therapy - PT 05/05: decline in transfers due to limitation from right hip and knee pain. patient still able to tolerate hallway ambulation, no episode of orthostatic hypotension post gait. recommending room/hallway ambulation w/ nursing for AM/ PM care or toileting. - PT 05/09: decline in function limited by persisting right groin/ hip and knee pain. patient still recommended for daily out of bed during am/pm care. cleared for ambulation in the room with standard walker non weight bearing right lower extremity - PT 05/10: mild decline in transfers due to pain in right knee and hip. NWB to RLE. Patient with episode of hypotension post ambulation- no syncope. - 05/16: discussed with PT. Patient function declining due to immobility. Patient needs to go from bed to chair. Patient should also be ambulating to the bathroom with assist. Patient becomes hypotensive with walking. - 05/17: patient assisted to chair. discussed with nursing the need for ambulation to and from bathroom with assistance as well as transfer from bed to chair Abdominal discomfort likely 2/ Constipation - 06/09- no abdominal pain reported, moving bowels - Lactulose, reports BMs - Monitor Facial rash - Stable - resembles seborrheic dermatitis, patient encouraged to moisturize - ESR 32 - CRP 1.51 - RA- negative - A&D ointment to face Orthostasis - 05/21: IV fluids- NS at 100cc/h - stopped - 05/16: Per PT, patient becomes hypotensive with exertion. adding sodium chloride tablets 1g daily - 05/05: -Supine BP: 114/71, HR 75 -Sitting BP: 113/71, HR 90 -Standing BP: 116/72, HR 94 Anemia; will monitor - 06/12 - Hgb 10.4, improving - 05/30: Hgb trending up - 05/26: may have a component of Fe deficiency, will replete - 05/25: Hgb still low, will get labs with Iron panel tomorrow - 05/22: Hgb 8.7, repeated and was 9.5 - 05/15: hgb 11.0 - chronic - monitor with weekly labs Abdominal Pain; resolved - 06/09- no abdominal pain reported, moving bowels - 05/24: less abd pain, reports BMs - 05/22: continues to complain of straining, will give one time miralax dose - 05/21: restart colace 100mg BID as patient straining to have BM - patient with multiple soft stools- will stop miralax for now - patient has been complaining of abdominal pain since admission - Colace 100mg PO BID - Dulcolax every 3 days - Inguinal hernia with unobstructed bowel loop involvement; protruded 04/18 due to straining on toilet. - 05/03/16 B/L inguinal hernias reduced today without incidence - Abdominal US 04/01: Gallstones, no acute cholecystitis, no hydronephrosis. trace ascites (see full report) - Abd/pelv CT 03/11: mod b/l pleural effusions and assoc consolidations; tiny probably gallstones within the gallbladder; small to moderate hiatal hernia; R inguinal hernia which contains small loops of bowel, likely small bowel- no evidence of obstruction as oral contrast is noted within R colon. No definite free air, however evaluation for pneumoperitoneum is suboptimal. Moderate to severe constipation with questionable impaction. Prostate gland 4.1cm x 4.6cm. Urinary bladder appears unremarkable. Small amount of fluid within a right inguinal hernia. Sclerosis of right iliac wing. Extensive anasarca. Aneursmal dilatation of ascending thoracic aorta; Currently 4.5 cm. Patient needs repeat Ct imaging every 6 months - last CT scan in 03/2016, should be monitored in September, Onychomycosis;chronic and improving - patient had aseptic debridement of toenails x 10 - clotrimazole cream to be applied to feet b/l BID - podiatry following Sacral decubitus- resolved - 05/17- sacrum examined- no sacral ulcers noted - 05/16: patient needs to go from bed to chair to prevent ulcers from re-forming - 04/19: exam revealed a previously healed decubitus ulcer of right buttocks. Sacral exam was clear. - Wound care following - recommending medihoney covered with bordered telfa dressing to right lower buttocks stage 2 pressure ulcer daily. - Pt is OOB to chair with help from PT daily - Order placed for turning patient Q2H History of Urinary Tract Infection - 06/09: No urinary complaints - 05/20: ordered repeat urine culture for urinary frequency - no growth (Final) - 05/17: urine culture negative - 05/16: + nitrates, 4 RBC, occasional bacteria. - urine culture 05/03- no growth - UA 05/05: +nitrates, occasional bacteria Diarrhea- resolved - 3/31: no complaints of diarrhea, complaining of bleeding w/BMs- buttock wound , Silvadene top ordered - 05/22 - resolved - culture negative - 05/18: c. diff negative, no salmonella - 05/17: ova and parasites negative Hypokalemia - Monitor - Replete as needed Syncopal Episode x1- resolved - 05/04/16 CTA- negative for PE (underlying atelectasis new findings compared to the prior study 03/20/2016.) Prophylactic Measure - Labs weekly on Sunday - Lovenox 40mg SC daily - Pepcid 20mg PO BID - A and D ointment TOP Q*H - Patient is homeless. Used to stay with friend, but no longer welcome there. Goal is to walk with cane so he can go to a half-way (will not qualify with a walker) - patient will need to work with PT frequently - right calf with dark skin lesion underneath knee immobilizer, wound care on board - applying medihoney Disposition - Reaching out to family in [facility] - no response from family per case management - Social Work is following up - Cannot be discharged to half-way due to functional status - Continue to work with PT - No new changes to pt status or plan - Palliative care consulted - pt agrees to DNR/DNI- cont current medical mgmt, rec for Silvadene to buttock <Jose Wiggins - Last Filed: 06/21/16 17:20> Objective - Vital Signs/Intake and Output Vital Signs (last 24 hours): Temp Pulse Resp BP Pulse Ox 98.0 F 73 20 115/69 97 06/21/16 15:00 06/21/16 15:00 06/21/16 15:00 06/21/16 15:00 06/21/16 15:00 Intake and Output: 06/21/16 06/21/16 06:59 18:59 Intake Total 350 360 Output Total 870 Balance -520 360 - Medications Medications: Current Medications Acetaminophen (Tylenol 325mg Tab) 650 mg PO Q6 PRN PRN Reason: Pain, Mild (1-3) Last Admin: 06/19/16 21:49 Dose: 650 mg Carbamide Peroxide (Debrox Ear Drops) 1 ml AU BID [facility] Last Admin: 06/21/16 11:05 Dose: Not Given Clotrimazole (Lotrimin 1%) 0 gm TOP BID [facility] Last Admin: 06/21/16 11:10 Dose: Not Given Docusate Sodium (Colace) 100 mg PO BID [facility] Last Admin: 06/21/16 11:03 Dose: 100 mg Enoxaparin Sodium (Lovenox) 40 mg SC DAILY [facility] Last Admin: 06/21/16 11:03 Dose: 40 mg Famotidine (Pepcid) 20 mg PO BID [facility] Last Admin: 06/21/16 11:04 Dose: 20 mg Magnesium Oxide (Mag-Ox) 400 mg PO BID [facility] Last Admin: 06/21/16 11:04 Dose: 400 mg Polyethylene Glycol (Miralax) 17 gm PO Q2D [facility] Last Admin: 06/21/16 08:50 Dose: Not Given Silver Sulfadiazine (Silvadene 1% 20 Gm) 0 ea TOP Q12H [facility] Last Admin: 06/21/16 08:49 Dose: Not Given Sodium Chloride (Sodium Chloride Tab) 1 gm PO DAILY@1330 [facility] Last Admin: 06/21/16 13:58 Dose: 1 gm Tamsulosin HCl (Flomax) 0.8 mg PO DAILY [facility] Last Admin: 06/21/16 11:03 Dose: 0.8 mg Tramadol HCl (Ultram) 25 mg PO TID PRN PRN Reason: Pain, moderate (4-7) Last Admin: 06/21/16 13:22 Dose: 25 mg - Labs Labs: 06/19/16 06:49 06/19/16 06:49 Attending/Attestation - Attestation I have personally seen and examined this patient.: Yes I have fully participated in the care of the patient.: Yes I have reviewed all pertinent clinical information, including history, physical exam and plan: Yes Notes (Text): 06/21/16 17:19 Patient was seen and examined at bedside with the resident No change in clinical condition Continue current management
[2016-06-21] MEDS: Enoxaparin 40 mg Syringe SC SCH (11:03)
[2016-06-21] MEDS: Magnesium Oxide 400 mg Tab UD PO SCH ×2 (11:04→17:33)
[2016-06-21] MEDS: Clotrimazole 1% Cream 15 GM TUBE TOP SCH ×3 (11:04→17:33)
[2016-06-22] MEDS: Tramadol 25 mg PO PRN (08:33)
[2016-06-22] MEDS: Silver Sulfadiazine 1% Cream (20 gm) TOP SCH ×2 (08:34→22:12)
[2016-06-22] MEDS: Enoxaparin 40 mg Syringe SC SCH (10:31)
[2016-06-22] MEDS: Magnesium Oxide 400 mg Tab UD PO SCH ×2 (10:31→18:36)
--- NOTE | 2016-06-22 11:30 | CP.PCM.PN ---
<Kwame Sears - Last Filed: 06/22/16 15:31> Subjective - Date & Time of Evaluation Date of Evaluation: 06/22/16 Time of Evaluation: 07:20 - Subjective Subjective: PGY-1 Medicine Progress Note for Dr. Wiggins Patient seen and examined at bedside. No acute event overnight. He still has same chronic pain. Complaining of abd pain and new hernia today so CT abd/ pelvis with PO contrast ordered. Also complaining of dysuria. He is tolerating diet and having BMs. Ambulating with rolling walker. Denied fever/chills, chest pain, sob, abdominal pain, nausea/vomiting/diarrhea and constipation. Objective - Vital Signs/Intake and Output Vital Signs (last 24 hours): Temp Pulse Resp BP Pulse Ox 98.1 F 70 18 125/70 99 06/22/16 07:00 06/22/16 07:00 06/22/16 07:00 06/22/16 07:00 06/22/16 07:00 Intake and Output: 06/22/16 06/22/16 06:59 18:59 Intake Total 600 Output Total 700 Balance -100 - Medications Medications: Current Medications Acetaminophen (Tylenol 325mg Tab) 650 mg PO Q6 PRN PRN Reason: Pain, Mild (1-3) Last Admin: 06/19/16 21:49 Dose: 650 mg Carbamide Peroxide (Debrox Ear Drops) 1 ml AU BID [facility] Last Admin: 06/22/16 10:30 Dose: Not Given Clotrimazole (Lotrimin 1%) 0 gm TOP BID [facility] Last Admin: 06/21/16 17:33 Dose: 1 applic Docusate Sodium (Colace) 100 mg PO BID [facility] Last Admin: 06/22/16 10:30 Dose: Not Given Enoxaparin Sodium (Lovenox) 40 mg SC DAILY [facility] Last Admin: 06/22/16 10:31 Dose: 40 mg Famotidine (Pepcid) 20 mg PO BID [facility] Last Admin: 06/22/16 10:31 Dose: 20 mg Magnesium Oxide (Mag-Ox) 400 mg PO BID [facility] Last Admin: 06/22/16 10:31 Dose: 400 mg Polyethylene Glycol (Miralax) 17 gm PO Q2D [facility] Last Admin: 06/21/16 08:50 Dose: Not Given Silver Sulfadiazine (Silvadene 1% 20 Gm) 0 ea TOP Q12H [facility] Last Admin: 06/22/16 08:34 Dose: Not Given Sodium Chloride (Sodium Chloride Tab) 1 gm PO DAILY@1330 [facility] Last Admin: 06/21/16 13:58 Dose: 1 gm Tamsulosin HCl (Flomax) 0.8 mg PO DAILY [facility] Last Admin: 06/22/16 10:30 Dose: 0.8 mg Tramadol HCl (Ultram) 25 mg PO TID PRN PRN Reason: Pain, moderate (4-7) Last Admin: 06/22/16 08:33 Dose: 25 mg - Labs Labs: 06/19/16 06:49 06/19/16 06:49 - Constitutional Appears: No Acute Distress - Head Exam Head Exam: ATRAUMATIC, NORMOCEPHALIC - Eye Exam Eye Exam: EOMI, Normal appearance Pupil Exam: PERRL - ENT Exam ENT Exam: Mucous Membranes Moist - Neck Exam Neck Exam: Normal Inspection - Respiratory Exam Respiratory Exam: Clear to Ausculation Bilateral, NORMAL BREATHING PATTERN - Cardiovascular Exam Cardiovascular Exam: REGULAR RHYTHM, +S1, +S2 - GI/Abdominal Exam GI & Abdominal Exam: Soft, Tenderness (LLQ), Hernia (old bilateral inguinal hernias, new non-reducible LLQ hernia), Normal Bowel Sounds - Extremities Exam Extremities Exam: Normal Capillary Refill - Back Exam Back Exam: absent: CVA tenderness (L), CVA tenderness (R) - Neurological Exam Neurological Exam: Abnormal Gait (ambulates with rolling walker), Alert, Awake, CN II-XII Intact, Oriented x3 - Psychiatric Exam Psychiatric exam: Normal Affect, Normal Mood - Skin Skin Exam: Dry, Intact, Normal Color, Warm Assessment and Plan - Assessment and Plan (Free Text) Plan: Abdominal Pain CT abd/pelvis with PO contrast - 06/09- no abdominal pain reported, moving bowels - 05/24: less abd pain, reports BMs - 05/22: continues to complain of straining, will give one time miralax dose - 05/21: restart colace 100mg BID as patient straining to have BM - patient with multiple soft stools- will stop miralax for now - patient has been complaining of abdominal pain since admission - Colace 100mg PO BID - Dulcolax every 3 days - Inguinal hernia with unobstructed bowel loop involvement; protruded 04/18 due to straining on toilet. - 05/03/16 B/L inguinal hernias reduced today without incidence - Abdominal US 04/01: Gallstones, no acute cholecystitis, no hydronephrosis. trace ascites (see full report) - Abd/pelv CT 03/11: mod b/l pleural effusions and assoc consolidations; tiny probably gallstones within the gallbladder; small to moderate hiatal hernia; R inguinal hernia which contains small loops of bowel, likely small bowel- no evidence of obstruction as oral contrast is noted within R colon. No definite free air, however evaluation for pneumoperitoneum is suboptimal. Moderate to severe constipation with questionable impaction. Prostate gland 4.1cm x 4.6cm. Urinary bladder appears unremarkable. Small amount of fluid within a right inguinal hernia. Sclerosis of right iliac wing. Extensive anasarca. BPH Complaining of dysuria, UA was negative - Flomax 0.8 mg PO daily - Urology Dr. Hughes on board - will f/u with recs concerning inpatient TURP - 05/18: Pyridium 200 mg PO TIDPC- discontinued Leg swelling -06/09: No changes - 05/23: will order left leg US to r/o DVT - negative for DVT or any other abnormalities - 05/20: venous doppler ordered - read as: No evidence of deep or superficial vein thrombosis of the right lower extremity with excellent venous flow. Normal valve function noted of the right side. Normal venous flow noted in the left common femoral vein. Fracture of tibia, proximal, right, closed; pain management and physical therapy -06/08- re-ordered PT eval - 06/08 - Stable - 05/31 - per ortho - Advance to 10% TTWB RLE, plan repeat xrays in 2 weeks and reassess, continue knee immobilizer, PT order updated - 05/29 - Cont to work with PT. Able to ambulate with walker, NWB on right LE. -05/27- cont current mgmt - 05/24 - continue with current management. - 05/20- ordered venous doppler right leg for swelling - results as above - 05/18- repeat xray with no significant change - 05/11- per ortho team: patient to remain non-weight bearing to right lower extremity - 05/09- right knee xrays ordered by orthopedics team- No acute fracture. Status post ORIF old patellar fracture No significant interval change compared to the prior examination Will follow up recommendations from orthopedics team - 05/05:Ortho Dr. Pino and Jayce NICOLE following- no orthopedic intervention indicated at this time, strict NWB, PT/OT - Impaction/insufficiency fracture, lateral aspect proximal tibia, non operative , treated with strict NWB and immobilization - At least 6 weeks old by imaging - Tylenol 650 mg PO Q6 PRN mild pain - Tramadol 25mg TID pRN - Daily physical therapy - Nonweight bearing on R leg - L knee x-ray: severe osteopenia. Sclerotic changes about the posterior proximal tibia may relate to a sclerotic healing response of a prior stress fracture here. no tibial plateau depressed fracture. The sclerosis is perceived on the prior 04/21 study; no interval pathology appreciated between 2 exams. If symptoms worsen consider MRI. 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 sclerosi about right acetabulum - daily physical therapy - PT 05/05: decline in transfers due to limitation from right hip and knee pain. patient still able to tolerate hallway ambulation, no episode of orthostatic hypotension post gait. recommending room/hallway ambulation w/ nursing for AM/ PM care or toileting. - PT 05/09: decline in function limited by persisting right groin/ hip and knee pain. patient still recommended for daily out of bed during am/pm care. cleared for ambulation in the room with standard walker non weight bearing right lower extremity - PT 05/10: mild decline in transfers due to pain in right knee and hip. NWB to RLE. Patient with episode of hypotension post ambulation- no syncope. - 05/16: discussed with PT. Patient function declining due to immobility. Patient needs to go from bed to chair. Patient should also be ambulating to the bathroom with assist. Patient becomes hypotensive with walking. - 05/17: patient assisted to chair. discussed with nursing the need for ambulation to and from bathroom with assistance as well as transfer from bed to chair Abdominal discomfort likely 2/2 Constipation - 06/09- no abdominal pain reported, moving bowels - Lactulose, reports BMs - Monitor Facial rash - Stable - resembles seborrheic dermatitis, patient encouraged to moisturize - ESR 32 - CRP 1.51 - RA- negative - A&D ointment to face Orthostasis - 05/21: IV fluids- NS at 100cc/h - stopped - 05/16: Per PT, patient becomes hypotensive with exertion. adding sodium chloride tablets 1g daily - 05/05: -Supine BP: 114/71, HR 75 -Sitting BP: 113/71, HR 90 -Standing BP: 116/72, HR 94 Anemia; will monitor - 06/12 - Hgb 10.4, improving - 05/30: Hgb trending up - 05/26: may have a component of Fe deficiency, will replete - 05/25: Hgb still low, will get labs with Iron panel tomorrow - 05/22: Hgb 8.7, repeated and was 9.5 - 05/15: hgb 11.0 - chronic - monitor with weekly labs Aneursmal dilatation of ascending thoracic aorta; Currently 4.5 cm. Patient needs repeat Ct imaging every 6 months - last CT scan in 03/2016, should be monitored in September, Onychomycosis;chronic and improving - patient had aseptic debridement of toenails x 10 - clotrimazole cream to be applied to feet b/l BID - podiatry following Sacral decubitus- resolved - 05/17- sacrum examined- no sacral ulcers noted - 05/16: patient needs to go from bed to chair to prevent ulcers from re-forming - 04/19: exam revealed a previously healed decubitus ulcer of right buttocks. Sacral exam was clear. - Wound care following - recommending medihoney covered with bordered telfa dressing to right lower buttocks stage 2 pressure ulcer daily. - Pt is OOB to chair with help from PT daily - Order placed for turning patient Q2H History of Urinary Tract Infection - 06/09: No urinary complaints - 05/20: ordered repeat urine culture for urinary frequency - no growth (Final) - 05/17: urine culture negative - 05/16: + nitrates, 4 RBC, occasional bacteria. - urine culture 05/03- no growth - UA 05/05: +nitrates, occasional bacteria Diarrhea- resolved - 06/09: no complaints of diarrhea, complaining of bleeding w/BMs- buttock wound , Silvadene top ordered - 05/22 - resolved - culture negative - 05/18: c. diff negative, no salmonella - 05/17: ova and parasites negative Hypokalemia - Monitor - Replete as needed Syncopal Episode x1- resolved - 05/04/16 CTA- negative for PE (underlying atelectasis new findings compared to the prior study 03/20/2016.) Prophylactic Measure - Labs weekly on Sunday - Lovenox 40mg SC daily - Pepcid 20mg PO BID - A and D ointment TOP Q*H - Patient is homeless. Used to stay with friend, but no longer welcome there. Goal is to walk with cane so he can go to a [facility] (will not qualify with a walker) - patient will need to work with PT frequently - right calf with dark skin lesion underneath knee immobilizer, wound care on board - applying medihoney Disposition - Reaching out to family in [facility] - no response from family per case management - Social Work is following up - Cannot be discharged to [facility] due to functional status - Continue to work with PT - No new changes to pt status or plan - Palliative care consulted - pt agrees to DNR/DNI- cont current medical mgmt, rec for Silvadene to buttock <Jose Wiggins - Last Filed: 06/22/16 16:49> Objective - Vital Signs/Intake and Output Vital Signs (last 24 hours): Temp Pulse Resp BP Pulse Ox 98.1 F 73 20 111/68 96 06/22/16 15:00 06/22/16 15:00 06/22/16 15:00 06/22/16 15:00 06/22/16 15:00 Intake and Output: 06/22/16 06/22/16 06:59 18:59 Intake Total 600 340 Output Total 700 400 Balance -100 -60 - Medications Medications: Current Medications Acetaminophen (Tylenol 325mg Tab) 650 mg PO Q6 PRN PRN Reason: Pain, Mild (1-3) Last Admin: 06/19/16 21:49 Dose: 650 mg Carbamide Peroxide (Debrox Ear Drops) 1 ml AU BID [facility] Last Admin: 06/22/16 10:30 Dose: Not Given Clotrimazole (Lotrimin 1%) 0 gm TOP BID [facility] Last Admin: 06/22/16 14:04 Dose: Not Given Docusate Sodium (Colace) 100 mg PO BID [facility] Last Admin: 06/22/16 10:30 Dose: Not Given Enoxaparin Sodium (Lovenox) 40 mg SC DAILY [facility] Last Admin: 06/22/16 10:31 Dose: 40 mg Famotidine (Pepcid) 20 mg PO BID [facility] Last Admin: 06/22/16 10:31 Dose: 20 mg Magnesium Oxide (Mag-Ox) 400 mg PO BID [facility] Last Admin: 06/22/16 10:31 Dose: 400 mg Polyethylene Glycol (Miralax) 17 gm PO Q2D [facility] Last Admin: 06/21/16 08:50 Dose: Not Given Silver Sulfadiazine (Silvadene 1% 20 Gm) 0 ea TOP Q12H [facility] Last Admin: 06/22/16 08:34 Dose: Not Given Sodium Chloride (Sodium Chloride Tab) 1 gm PO DAILY@1330 [facility] Last Admin: 06/22/16 14:27 Dose: 1 gm Tamsulosin HCl (Flomax) 0.8 mg PO DAILY [facility] Last Admin: 06/22/16 10:30 Dose: 0.8 mg Tramadol HCl (Ultram) 25 mg PO TID PRN PRN Reason: Pain, moderate (4-7) Last Admin: 06/22/16 08:33 Dose: 25 mg - Labs Labs: 06/19/16 06:49 06/19/16 06:49 Attending/Attestation - Attestation I have personally seen and examined this patient.: Yes I have fully participated in the care of the patient.: Yes I have reviewed all pertinent clinical information, including history, physical exam and plan: Yes Notes (Text): 06/22/16 16:48 Patient was seen and examined at bedside Complains of pain in the right leg Patient also complained of pain in the left lower quadrant on the abdomen We will obtain CT scan of the abdomen and pelvis without IV comment contrast Discussed the plan of care with the resident and agree with the above history and physical and assessment /plan by the resident
[2016-06-22] MEDS ORDERED: Iohexol 240 (50 ml) PO ONE (12:45)
[2016-06-22] MEDS: Clotrimazole 1% Cream 15 GM TUBE TOP SCH ×2 (14:04→18:37)
[2016-06-22 14:31] LABS: SQUAMOUS EPITHIAL < 1 /hpf (0-5); URINE BILIRUBIN NEGATIVE (NEGATIVE); URINE BLOOD NEGATIVE (NEGATIVE); URINE CLARITY Clear (Clear); URINE COLOR Yellow (YELLOW); URINE GLUCOSE (UA) NORMAL (Normal); URINE HYALINE CAST 0-2 /lpf (0-2); URINE LEUKOCYTE ESTERASE NEG Leu/uL (Negative); URINE NITRATE NEGATIVE (NEGATIVE); URINE PROTEIN NEGATIVE (NEGATIVE); URINE UROBILINOGEN NORMAL mg/dL (0.2-1.0)
--- NOTE | 2016-06-23 09:15 | CP.PCM.PN ---
<Kwame Sears - Last Filed: 06/23/16 14:40> Subjective - Date & Time of Evaluation Date of Evaluation: 06/23/16 Time of Evaluation: 07:30 - Subjective Subjective: PGY-1 Medicine Progress Note for Dr. Wiggins Patient seen and examined at bedside. No acute event overnight. He still has same chronic leg pain. Abdominal pain has improved. CT abd/pelvis with PO contrast was done. He is tolerating diet and having normal BMs. Ambulating with rolling walker. Denied fever/chills, chest pain, sob, abdominal pain, nausea/ vomiting/diarrhea and constipation. Objective - Vital Signs/Intake and Output Vital Signs (last 24 hours): Temp Pulse Resp BP Pulse Ox 98.1 F 77 20 125/70 97 06/23/16 08:00 06/23/16 08:00 06/23/16 08:00 06/23/16 08:00 06/23/16 08:00 Intake and Output: 06/23/16 06/23/16 06:59 18:59 Intake Total 680 Output Total 550 Balance 130 - Medications Medications: Current Medications Acetaminophen (Tylenol 325mg Tab) 650 mg PO Q6 PRN PRN Reason: Pain, Mild (1-3) Last Admin: 06/19/16 21:49 Dose: 650 mg Carbamide Peroxide (Debrox Ear Drops) 1 ml AU BID [facility] Last Admin: 06/22/16 18:36 Dose: 5 drop Clotrimazole (Lotrimin 1%) 0 gm TOP BID [facility] Last Admin: 06/22/16 18:37 Dose: 1 applic Docusate Sodium (Colace) 100 mg PO BID [facility] Last Admin: 06/22/16 18:36 Dose: 100 mg Enoxaparin Sodium (Lovenox) 40 mg SC DAILY [facility] Last Admin: 06/22/16 10:31 Dose: 40 mg Famotidine (Pepcid) 20 mg PO BID [facility] Last Admin: 06/22/16 18:37 Dose: 20 mg Magnesium Oxide (Mag-Ox) 400 mg PO BID [facility] Last Admin: 06/22/16 18:36 Dose: 400 mg Polyethylene Glycol (Miralax) 17 gm PO Q2D [facility] Last Admin: 06/21/16 08:50 Dose: Not Given Silver Sulfadiazine (Silvadene 1% 20 Gm) 0 ea TOP Q12H [facility] Last Admin: 06/22/16 22:12 Dose: Not Given Sodium Chloride (Sodium Chloride Tab) 1 gm PO DAILY@1330 [facility] Last Admin: 06/22/16 14:27 Dose: 1 gm Tamsulosin HCl (Flomax) 0.8 mg PO DAILY [facility] Last Admin: 06/22/16 10:30 Dose: 0.8 mg Tramadol HCl (Ultram) 25 mg PO TID PRN PRN Reason: Pain, moderate (4-7) Last Admin: 06/22/16 08:33 Dose: 25 mg - Labs Labs: 06/19/16 06:49 06/19/16 06:49 - Constitutional Appears: No Acute Distress - Head Exam Head Exam: ATRAUMATIC, NORMOCEPHALIC - Eye Exam Eye Exam: EOMI, Normal appearance Pupil Exam: PERRL - ENT Exam ENT Exam: Mucous Membranes Moist - Neck Exam Neck Exam: Normal Inspection - Respiratory Exam Respiratory Exam: Clear to Ausculation Bilateral, NORMAL BREATHING PATTERN - Cardiovascular Exam Cardiovascular Exam: RRR, +S1, +S2 - GI/Abdominal Exam GI & Abdominal Exam: Soft, Normal Bowel Sounds. absent: Tenderness Additional comments: chronic bilateral reducible hernias, LLQ hernia - reducible and nontender today - Extremities Exam Extremities Exam: Normal Capillary Refill, Tenderness (bilateral extremities) - Back Exam Back Exam: absent: CVA tenderness (L), CVA tenderness (R) - Neurological Exam Neurological Exam: Abnormal Gait (ambulating with rolling walker), Alert, Awake , CN II-XII Intact, Oriented x3 - Psychiatric Exam Psychiatric exam: Normal Affect, Normal Mood - Skin Skin Exam: Dry, Intact, Normal Color, Warm Assessment and Plan - Assessment and Plan (Free Text) Plan: Abdominal Pain CT abd/pelvis with PO contrast: limited study, bowel containing left inguinal hernia without evidence of obstruction. Smaller fat and vessel containing right inguinal hernia without evidence of obstruction; anterior right aspect of the urinary bladderalso extends into hernia defect. Cholelithiasis. Moderate constipation. Enlarged prostate gland. Right hip arhtroplasty. Right protrusion acetabulum. Sclerosis involving osseous structures, possibly reactive (see full report). - 06/09- no abdominal pain reported, moving bowels - 05/24: less abd pain, reports BMs - 05/22: continues to complain of straining, will give one time miralax dose - 05/21: restart colace 100mg BID as patient straining to have BM - patient with multiple soft stools- will stop miralax for now - patient has been complaining of abdominal pain since admission - Colace 100mg PO BID - Dulcolax every 3 days - Inguinal hernia with unobstructed bowel loop involvement; protruded 04/18 due to straining on toilet. - 05/03/16 B/L inguinal hernias reduced today without incidence - Abdominal US 04/01: Gallstones, no acute cholecystitis, no hydronephrosis. trace ascites (see full report) - Abd/pelv CT 03/11: mod b/l pleural effusions and assoc consolidations; tiny probably gallstones within the gallbladder; small to moderate hiatal hernia; R inguinal hernia which contains small loops of bowel, likely small bowel- no evidence of obstruction as oral contrast is noted within R colon. No definite free air, however evaluation for pneumoperitoneum is suboptimal. Moderate to severe constipation with questionable impaction. Prostate gland 4.1cm x 4.6cm. Urinary bladder appears unremarkable. Small amount of fluid within a right inguinal hernia. Sclerosis of right iliac wing. Extensive anasarca. BPH Complaining of dysuria, UA was negative - Flomax 0.8 mg PO daily - Urology Dr. Hughes on board - will f/u with recs concerning inpatient TURP - 05/18: Pyridium 200 mg PO TIDPC- discontinued Leg swelling -06/09: No changes - 05/23: will order left leg US to r/o DVT - negative for DVT or any other abnormalities - 05/20: venous doppler ordered - read as: No evidence of deep or superficial vein thrombosis of the right lower extremity with excellent venous flow. Normal valve function noted of the right side. Normal venous flow noted in the left common femoral vein. Fracture of tibia, proximal, right, closed; pain management and physical therapy -06/08- re-ordered PT eval - 06/08 - Stable - 05/31 - per ortho - Advance to 10% TTWB RLE, plan repeat xrays in 2 weeks and reassess, continue knee immobilizer, PT order updated - 05/29 - Cont to work with PT. Able to ambulate with walker, NWB on right LE. -05/27- cont current mgmt - 05/24 - continue with current management. - 05/20- ordered venous doppler right leg for swelling - results as above - 05/18- repeat xray with no significant change - 05/11- per ortho team: patient to remain non-weight bearing to right lower extremity - 05/09- right knee xrays ordered by orthopedics team- No acute fracture. Status post ORIF old patellar fracture No significant interval change compared to the prior examination Will follow up recommendations from orthopedics team - 05/05:Ortho Dr. Pino and Jayce West PA following- no orthopedic intervention indicated at this time, strict NWB, PT/OT - Impaction/insufficiency fracture, lateral aspect proximal tibia, non operative , treated with strict NWB and immobilization - At least 6 weeks old by imaging - Tylenol 650 mg PO Q6 PRN mild pain - Tramadol 25mg TID pRN - Daily physical therapy - Nonweight bearing on R leg - L knee x-ray: severe osteopenia. Sclerotic changes about the posterior proximal tibia may relate to a sclerotic healing response of a prior stress fracture here. no tibial plateau depressed fracture. The sclerosis is perceived on the prior 04/21 study; no interval pathology appreciated between 2 exams. If symptoms worsen consider MRI. 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 sclerosi about right acetabulum - daily physical therapy - PT 05/05: decline in transfers due to limitation from right hip and knee pain. patient still able to tolerate hallway ambulation, no episode of orthostatic hypotension post gait. recommending room/hallway ambulation w/ nursing for AM/ PM care or toileting. - PT 05/09: decline in function limited by persisting right groin/ hip and knee pain. patient still recommended for daily out of bed during am/pm care. cleared for ambulation in the room with standard walker non weight bearing right lower extremity - PT 05/10: mild decline in transfers due to pain in right knee and hip. NWB to RLE. Patient with episode of hypotension post ambulation- no syncope. - 05/16: discussed with PT. Patient function declining due to immobility. Patient needs to go from bed to chair. Patient should also be ambulating to the bathroom with assist. Patient becomes hypotensive with walking. - 05/17: patient assisted to chair. discussed with nursing the need for ambulation to and from bathroom with assistance as well as transfer from bed to chair Abdominal discomfort likely 2/ Constipation - 06/09- no abdominal pain reported, moving bowels - Lactulose, reports BMs - Monitor Facial rash - Stable - resembles seborrheic dermatitis, patient encouraged to moisturize - ESR 32 - CRP 1.51 - RA- negative - A&D ointment to face Orthostasis - 05/21: IV fluids- NS at 100cc/h - stopped - 05/16: Per PT, patient becomes hypotensive with exertion. adding sodium chloride tablets 1g daily - 05/05: -Supine BP: 114/71, HR 75 -Sitting BP: 113/71, HR 90 -Standing BP: 116/72, HR 94 Anemia; will monitor - 06/12 - Hgb 10.4, improving - 05/30: Hgb trending up - 05/26: may have a component of Fe deficiency, will replete - 05/25: Hgb still low, will get labs with Iron panel tomorrow - 05/22: Hgb 8.7, repeated and was 9.5 - 05/15: hgb 11.0 - chronic - monitor with weekly labs Aneursmal dilatation of ascending thoracic aorta; Currently 4.5 cm. Patient needs repeat Ct imaging every 6 months - last CT scan in 03/2016, should be monitored in September, Onychomycosis;chronic and improving - patient had aseptic debridement of toenails x 10 - clotrimazole cream to be applied to feet b/l BID - podiatry following Sacral decubitus- resolved - 05/17- sacrum examined- no sacral ulcers noted - 05/16: patient needs to go from bed to chair to prevent ulcers from re-forming - 04/19: exam revealed a previously healed decubitus ulcer of right buttocks. Sacral exam was clear. - Wound care following - recommending medihoney covered with bordered telfa dressing to right lower buttocks stage 2 pressure ulcer daily. - Pt is OOB to chair with help from PT daily - Order placed for turning patient Q2H History of Urinary Tract Infection - 06/09: No urinary complaints - 05/20: ordered repeat urine culture for urinary frequency - no growth (Final) - 05/17: urine culture negative - 05/16: + nitrates, 4 RBC, occasional bacteria. - urine culture 05/03- no growth - UA 05/05: +nitrates, occasional bacteria Diarrhea- resolved - 06/09: no complaints of diarrhea, complaining of bleeding w/BMs- buttock wound , Silvadene top ordered - 05/22 - resolved - culture negative - 05/18: c. diff negative, no salmonella - 05/17: ova and parasites negative Hypokalemia - Monitor - Replete as needed Syncopal Episode x1- resolved - 05/04/16 CTA- negative for PE (underlying atelectasis new findings compared to the prior study 03/20/2016.) Prophylactic Measure - Labs weekly on Sunday - Lovenox 40mg SC daily - Pepcid 20mg PO BID - A and D ointment TOP Q*H - Patient is homeless. Used to stay with friend, but no longer welcome there. Goal is to walk with cane so he can go to a fdc (will not qualify with a walker) - patient will need to work with PT frequently - right calf with dark skin lesion underneath knee immobilizer, wound care on board - applying medihoney Disposition - Reaching out to family in [facility] - no response from family per case management - Social Work is following up - Cannot be discharged to fdc due to functional status - Continue to work with PT - No new changes to pt status or plan - Palliative care consulted - pt agrees to DNR/DNI- cont current medical mgmt, rec for Silvadene to buttock <Jose Wiggins - Last Filed: 06/24/16 14:18> Objective - Vital Signs/Intake and Output Vital Signs (last 24 hours): Temp Pulse Resp BP Pulse Ox 98.3 F 73 20 122/70 96 06/24/16 07:13 06/24/16 08:00 06/24/16 07:13 06/24/16 07:13 06/24/16 07:13 Intake and Output: 06/24/16 06/24/16 06:59 18:59 Intake Total 480 Balance 480 - Medications Medications: Current Medications Acetaminophen (Tylenol 325mg Tab) 650 mg PO Q6 PRN PRN Reason: Pain, Mild (1-3) Last Admin: 06/19/16 21:49 Dose: 650 mg Carbamide Peroxide (Debrox Ear Drops) 1 ml AU BID [facility] Last Admin: 06/24/16 10:13 Dose: 5 drop Clotrimazole (Lotrimin 1%) 0 gm TOP BID [facility] Last Admin: 06/24/16 10:14 Dose: 1 applic Docusate Sodium (Colace) 100 mg PO BID [facility] Last Admin: 06/24/16 10:13 Dose: 100 mg Enoxaparin Sodium (Lovenox) 40 mg SC DAILY [facility] Last Admin: 06/24/16 10:14 Dose: 40 mg Famotidine (Pepcid) 20 mg PO BID [facility] Last Admin: 06/24/16 10:13 Dose: 20 mg Magnesium Oxide (Mag-Ox) 400 mg PO BID [facility] Last Admin: 06/24/16 10:13 Dose: 400 mg Polyethylene Glycol (Miralax) 17 gm PO Q2D [facility] Last Admin: 06/23/16 10:39 Dose: 17 gm Silver Sulfadiazine (Silvadene 1% 20 Gm) 0 ea TOP Q12H [facility] Last Admin: 06/24/16 10:14 Dose: 1 applic Sodium Chloride (Sodium Chloride Tab) 1 gm PO DAILY@1330 [facility] Last Admin: 06/24/16 13:46 Dose: 1 gm Tamsulosin HCl (Flomax) 0.8 mg PO DAILY [facility] Last Admin: 06/24/16 10:13 Dose: 0.8 mg Tramadol HCl (Ultram) 25 mg PO TID PRN PRN Reason: Pain, moderate (4-7) Last Admin: 06/23/16 17:56 Dose: 25 mg - Labs Labs: 06/19/16 06:49 06/19/16 06:49 Attending/Attestation - Attestation I have personally seen and examined this patient.: Yes I have fully participated in the care of the patient.: Yes I have reviewed all pertinent clinical information, including history, physical exam and plan: Yes Notes (Text): 06/24/16 14:17 Patient was seen and examined at bedside with the resident Patient complained of right lower extremity pain Patient also complained of for mild abdominal discomfort however CAT scan of the abdomen and pelvis was reviewed No intestinal obstruction or incarceration of the hernia as per the CAT scan report. We will continue current management. Discussed the plan of care with the resident and agree with the above history and physical and assessment/plan by the resident
[2016-06-23] MEDS: Magnesium Oxide 400 mg Tab UD PO SCH ×2 (10:38→17:55)
[2016-06-23] MEDS: POLYETHYLENE GLYCOL 3350 17 GM/Dose PACKET PO SCH (10:39)
[2016-06-23] MEDS: Enoxaparin 40 mg Syringe SC SCH (10:39)
[2016-06-23] MEDS: Silver Sulfadiazine 1% Cream (20 gm) TOP SCH ×2 (10:39→21:44)
[2016-06-23] MEDS: Clotrimazole 1% Cream 15 GM TUBE TOP SCH ×2 (10:40→17:55)
[2016-06-23] MEDS: Tramadol 25 mg PO PRN ×2 (10:42→17:56)
--- NOTE | 2016-06-23 10:43 | CT ---
CT abdomen and pelvis without IV contrast Indication: LLQ pain, suspected hernia Technique: Contiguous axial images of the abdomen and pelvis. Oral contrast was administered. No IV contrast given. Coronal and Sagittal reformats generated and reviewed. This CT exam was performed using 1 or more of the following dose reduction techniques: Automated exposure control, adjustment of the MAA and/or kV according to patient size, and/or use of iterative reconstruction technique. Radiation dose: Total exam DLP = 237.56 MGy-cm. Comparison: CT chest, abdomen, and pelvis with IV contrast performed 03/20/16, abdominal ultrasound performed 04/02/16 Findings: Examination limited by lack of IV contrast as well as paucity of intra-abdominal and intrapelvic air. Streak artifact from right hip arthroplasty obscures evaluation of much of the pelvis. Bibasilar atelectasis. There is no visible pleural effusion or pneumothorax. Small hiatal hernia/ distal esophageal wall thickening. Cholelithiasis. Limited visualization of the non contrast liver, spleen, kidneys, pancreas, and adrenal glands appear grossly unremarkable. The stomach is nondistended. Bowel containing left inguinal hernia without evidence of obstruction. Smaller bowel and fat containing right inguinal hernia without evidence of obstruction; the anterior right aspect of the urinary bladder also extends into the hernia defect. Moderate constipation. There is no definite free air. The prostate gland measures approximately 4.7 x 5.1 cm. The urinary bladder appears unremarkable. Right hip arthroplasty with resultant streak artifact. Right protrusio acetabulum. Sclerosis involving the adjacent osseous structures, possibly reactive. Osseous demineralization. Degenerative changes. Chronic appearing L1 anterior wedge deformity re-identified. Impression: Limited study. Bowel containing left inguinal hernia without evidence of obstruction. Smaller fat and vessel containing right inguinal hernia without evidence of obstruction ; the anterior right aspect of the urinary bladder also extends into the hernia defect. Cholelithiasis. Moderate constipation. Enlarged heterogeneous prostate gland. Recommend correlation with PSA. Right hip arthroplasty with resultant streak artifact. Right protrusio acetabulum. Sclerosis involving the adjacent osseous structures, possibly reactive. Dedicated cross-sectional imaging suggested for further evaluation if indicated. Additional findings as above.
--- NOTE | 2016-06-24 09:12 | CP.PCM.PN ---
<Julio CesarÓscar - Last Filed: 06/24/16 11:28> Subjective - Date & Time of Evaluation Date of Evaluation: 06/24/16 Time of Evaluation: 09:25 - Subjective Subjective: Medicine Service- Hospitalist Service Patient was seen and examined at bedside. Patient reports some chronic right knee pain, and lower abdominal pain but otherwise has no acute complaints. He says his appetite has been improving, eating a little bit in the AM. Having normal bowel movements. Objective - Vital Signs/Intake and Output Vital Signs (last 24 hours): Temp Pulse Resp BP Pulse Ox 98.3 F 73 20 122/70 96 06/24/16 07:13 06/24/16 07:13 06/24/16 07:13 06/24/16 07:13 06/24/16 07:13 Intake and Output: 06/24/16 06/24/16 06:59 18:59 Intake Total 480 Balance 480 - Medications Medications: Current Medications Acetaminophen (Tylenol 325mg Tab) 650 mg PO Q6 PRN PRN Reason: Pain, Mild (1-3) Last Admin: 06/19/16 21:49 Dose: 650 mg Carbamide Peroxide (Debrox Ear Drops) 1 ml AU BID [facility] Last Admin: 06/23/16 17:55 Dose: 5 drop Clotrimazole (Lotrimin 1%) 0 gm TOP BID [facility] Last Admin: 06/23/16 17:55 Dose: 1 applic Docusate Sodium (Colace) 100 mg PO BID [facility] Last Admin: 06/23/16 17:55 Dose: 100 mg Enoxaparin Sodium (Lovenox) 40 mg SC DAILY [facility] Last Admin: 06/23/16 10:39 Dose: 40 mg Famotidine (Pepcid) 20 mg PO BID [facility] Last Admin: 06/23/16 17:56 Dose: 20 mg Magnesium Oxide (Mag-Ox) 400 mg PO BID [facility] Last Admin: 06/23/16 17:55 Dose: 400 mg Polyethylene Glycol (Miralax) 17 gm PO Q2D [facility] Last Admin: 06/23/16 10:39 Dose: 17 gm Silver Sulfadiazine (Silvadene 1% 20 Gm) 0 ea TOP Q12H [facility] Last Admin: 06/23/16 21:44 Dose: Not Given Sodium Chloride (Sodium Chloride Tab) 1 gm PO DAILY@1330 [facility] Last Admin: 06/23/16 13:48 Dose: 1 gm Tamsulosin HCl (Flomax) 0.8 mg PO DAILY [facility] Last Admin: 06/23/16 10:38 Dose: 0.8 mg Tramadol HCl (Ultram) 25 mg PO TID PRN PRN Reason: Pain, moderate (4-7) Last Admin: 06/23/16 17:56 Dose: 25 mg - Labs Labs: 06/19/16 06:49 06/19/16 06:49 - Constitutional Appears: Non-toxic, No Acute Distress - Head Exam Head Exam: ATRAUMATIC, NORMAL INSPECTION, NORMOCEPHALIC - Eye Exam Pupil Exam: NORMAL ACCOMODATION, PERRL - ENT Exam ENT Exam: Mucous Membranes Moist - Respiratory Exam Respiratory Exam: Clear to Ausculation Bilateral, NORMAL BREATHING PATTERN. absent: Prolonged Expiratory Phase, Rales, Wheezes - Cardiovascular Exam Cardiovascular Exam: REGULAR RHYTHM, +S1, +S2 - GI/Abdominal Exam GI & Abdominal Exam: Soft, Normal Bowel Sounds. absent: Diminished Bowel Sounds , Hypoactive Bowel Sounds Additional comments: chronic bilateral reducible hernias, LLQ hernia - reducible and nontender today - Extremities Exam Extremities Exam: Normal Capillary Refill, Normal Inspection - Neurological Exam Neurological Exam: Alert, Awake, Oriented x3 - Psychiatric Exam Psychiatric exam: Normal Affect, Normal Mood - Skin Skin Exam: Dry, Intact, Normal Color, Warm Assessment and Plan - Assessment and Plan (Free Text) Assessment: Abdominal Pain CT abd/pelvis with PO contrast: limited study, bowel containing left inguinal hernia without evidence of obstruction. Smaller fat and vessel containing right inguinal hernia without evidence of obstruction; anterior right aspect of the urinary bladderalso extends into hernia defect. Cholelithiasis. Moderate constipation. Enlarged prostate gland. Right hip arhtroplasty. Right protrusion acetabulum. Sclerosis involving osseous structures, possibly reactive (see full report). - 06/09- no abdominal pain reported, moving bowels - 05/24: less abd pain, reports BMs - 05/22: continues to complain of straining, will give one time miralax dose - 05/21: restart colace 100mg BID as patient straining to have BM - patient with multiple soft stools- will stop miralax for now - patient has been complaining of abdominal pain since admission - Colace 100mg PO BID - Dulcolax every 3 days - Inguinal hernia with unobstructed bowel loop involvement; protruded 04/18 due to straining on toilet. - 05/03/16 B/L inguinal hernias reduced today without incidence - Abdominal US 04/01: Gallstones, no acute cholecystitis, no hydronephrosis. trace ascites (see full report) - Abd/pelv CT 03/11: mod b/l pleural effusions and assoc consolidations; tiny probably gallstones within the gallbladder; small to moderate hiatal hernia; R inguinal hernia which contains small loops of bowel, likely small bowel- no evidence of obstruction as oral contrast is noted within R colon. No definite free air, however evaluation for pneumoperitoneum is suboptimal. Moderate to severe constipation with questionable impaction. Prostate gland 4.1cm x 4.6cm. Urinary bladder appears unremarkable. Small amount of fluid within a right inguinal hernia. Sclerosis of right iliac wing. Extensive anasarca. BPH Complaining of dysuria, UA was negative - Flomax 0.8 mg PO daily - Urology Dr. Hughes on board - will f/u with recs concerning inpatient TURP - 05/18: Pyridium 200 mg PO TIDPC- discontinued Leg swelling -06/09: No changes - 05/23: will order left leg US to r/o DVT - negative for DVT or any other abnormalities - 05/20: venous doppler ordered - read as: No evidence of deep or superficial vein thrombosis of the right lower extremity with excellent venous flow. Normal valve function noted of the right side. Normal venous flow noted in the left common femoral vein. Fracture of tibia, proximal, right, closed; pain management and physical therapy -06/08- re-ordered PT eval - 06/08 - Stable - 05/31 - per ortho - Advance to 10% TTWB RLE, plan repeat xrays in 2 weeks and reassess, continue knee immobilizer, PT order updated - 05/29 - Cont to work with PT. Able to ambulate with walker, NWB on right LE. -05/27- cont current mgmt - 05/24 - continue with current management. - 05/20- ordered venous doppler right leg for swelling - results as above - 05/18- repeat xray with no significant change - 05/11- per ortho team: patient to remain non-weight bearing to right lower extremity - 05/09- right knee xrays ordered by orthopedics team- No acute fracture. Status post ORIF old patellar fracture No significant interval change compared to the prior examination Will follow up recommendations from orthopedics team - 05/05:Ortho Dr. Pino and Jayce NICOLE following- no orthopedic intervention indicated at this time, strict NWB, PT/OT - Impaction/insufficiency fracture, lateral aspect proximal tibia, non operative , treated with strict NWB and immobilization - At least 6 weeks old by imaging - Tylenol 650 mg PO Q6 PRN mild pain - Tramadol 25mg TID pRN - Daily physical therapy - Nonweight bearing on R leg - L knee x-ray: severe osteopenia. Sclerotic changes about the posterior proximal tibia may relate to a sclerotic healing response of a prior stress fracture here. no tibial plateau depressed fracture. The sclerosis is perceived on the prior 04/21 study; no interval pathology appreciated between 2 exams. If symptoms worsen consider MRI. 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 sclerosi about right acetabulum - daily physical therapy - PT 05/05: decline in transfers due to limitation from right hip and knee pain. patient still able to tolerate hallway ambulation, no episode of orthostatic hypotension post gait. recommending room/hallway ambulation w/ nursing for AM/ PM care or toileting. - PT 05/09: decline in function limited by persisting right groin/ hip and knee pain. patient still recommended for daily out of bed during am/pm care. cleared for ambulation in the room with standard walker non weight bearing right lower extremity - PT 05/10: mild decline in transfers due to pain in right knee and hip. NWB to RLE. Patient with episode of hypotension post ambulation- no syncope. - 05/16: discussed with PT. Patient function declining due to immobility. Patient needs to go from bed to chair. Patient should also be ambulating to the bathroom with assist. Patient becomes hypotensive with walking. - 05/17: patient assisted to chair. discussed with nursing the need for ambulation to and from bathroom with assistance as well as transfer from bed to chair Abdominal discomfort likely 2/2 Constipation - 06/09- no abdominal pain reported, moving bowels - Lactulose, reports BMs - Monitor Facial rash - Stable - resembles seborrheic dermatitis, patient encouraged to moisturize - ESR 32 - CRP 1.51 - RA- negative - A&D ointment to face Orthostasis - 05/21: IV fluids- NS at 100cc/h - stopped - 05/16: Per PT, patient becomes hypotensive with exertion. adding sodium chloride tablets 1g daily - 05/05: -Supine BP: 114/71, HR 75 -Sitting BP: 113/71, HR 90 -Standing BP: 116/72, HR 94 Anemia; will monitor - 06/12 - Hgb 10.4, improving - 05/30: Hgb trending up - 05/26: may have a component of Fe deficiency, will replete - 05/25: Hgb still low, will get labs with Iron panel tomorrow - 05/22: Hgb 8.7, repeated and was 9.5 - 05/15: hgb 11.0 - chronic - monitor with weekly labs Aneurysmal dilatation of ascending thoracic aorta; Currently 4.5 cm. Patient needs repeat Ct imaging every 6 months - last CT scan in 03/2016, should be monitored in September, Onychomycosis;chronic and improving - patient had aseptic debridement of toenails x 10 - clotrimazole cream to be applied to feet b/l BID - podiatry following Sacral decubitus- resolved - 05/17- sacrum examined- no sacral ulcers noted - 05/16: patient needs to go from bed to chair to prevent ulcers from re-forming - 04/19: exam revealed a previously healed decubitus ulcer of right buttocks. Sacral exam was clear. - Wound care following - recommending medihoney covered with bordered telfa dressing to right lower buttocks stage 2 pressure ulcer daily. - Pt is OOB to chair with help from PT daily - Order placed for turning patient Q2H History of Urinary Tract Infection - 06/09: No urinary complaints - 05/20: ordered repeat urine culture for urinary frequency - no growth (Final) - 05/17: urine culture negative - 05/16: + nitrates, 4 RBC, occasional bacteria. - urine culture 05/03- no growth - UA 05/05: +nitrates, occasional bacteria Diarrhea- resolved - 06/09: no complaints of diarrhea, complaining of bleeding w/BMs- buttock wound , Silvadene top ordered - 05/22 - resolved - culture negative - 05/18: c. diff negative, no salmonella - 05/17: ova and parasites negative Hypokalemia - Monitor - Replete as needed Syncopal Episode x1- resolved - 05/04/16 CTA- negative for PE (underlying atelectasis new findings compared to the prior study 03/20/2016.) Prophylactic Measure - Labs weekly on Sunday - Lovenox 40mg SC daily - Pepcid 20mg PO BID - A and D ointment TOP Q*H - Patient is homeless. Used to stay with friend, but no longer welcome there. Goal is to walk with cane so he can go to a [facility] (will not qualify with a walker) - patient will need to work with PT frequently - right calf with dark skin lesion underneath knee immobilizer, wound care on board - applying medihoney Disposition - Reaching out to family in [facility] - no response from family per case management - Social Work is following up - Cannot be discharged to [facility] due to functional status - Continue to work with PT - No new changes to pt status or plan - Palliative care consulted - pt agrees to DNR/DNI- cont current medical mgmt, rec for Silvadene to buttock <Jose Wiggins - Last Filed: 06/24/16 15:23> Objective - Vital Signs/Intake and Output Vital Signs (last 24 hours): Temp Pulse Resp BP Pulse Ox 98.3 F 73 20 122/70 96 06/24/16 07:13 06/24/16 08:00 06/24/16 07:13 06/24/16 07:13 06/24/16 07:13 Intake and Output: 06/24/16 06/24/16 06:59 18:59 Intake Total 480 Balance 480 - Medications Medications: Current Medications Acetaminophen (Tylenol 325mg Tab) 650 mg PO Q6 PRN PRN Reason: Pain, Mild (1-3) Last Admin: 06/19/16 21:49 Dose: 650 mg Carbamide Peroxide (Debrox Ear Drops) 1 ml AU BID [facility] Last Admin: 06/24/16 10:13 Dose: 5 drop Clotrimazole (Lotrimin 1%) 0 gm TOP BID [facility] Last Admin: 06/24/16 10:14 Dose: 1 applic Docusate Sodium (Colace) 100 mg PO BID [facility] Last Admin: 06/24/16 10:13 Dose: 100 mg Enoxaparin Sodium (Lovenox) 40 mg SC DAILY [facility] Last Admin: 06/24/16 10:14 Dose: 40 mg Famotidine (Pepcid) 20 mg PO BID [facility] Last Admin: 06/24/16 10:13 Dose: 20 mg Magnesium Oxide (Mag-Ox) 400 mg PO BID [facility] Last Admin: 06/24/16 10:13 Dose: 400 mg Polyethylene Glycol (Miralax) 17 gm PO Q2D [facility] Last Admin: 06/23/16 10:39 Dose: 17 gm Silver Sulfadiazine (Silvadene 1% 20 Gm) 0 ea TOP Q12H [facility] Last Admin: 06/24/16 10:14 Dose: 1 applic Sodium Chloride (Sodium Chloride Tab) 1 gm PO DAILY@1330 [facility] Last Admin: 06/24/16 13:46 Dose: 1 gm Tamsulosin HCl (Flomax) 0.8 mg PO DAILY [facility] Last Admin: 06/24/16 10:13 Dose: 0.8 mg Tramadol HCl (Ultram) 25 mg PO TID PRN PRN Reason: Pain, moderate (4-7) Last Admin: 06/23/16 17:56 Dose: 25 mg - Labs Labs: 06/19/16 06:49 06/19/16 06:49 Attending/Attestation - Attestation I have personally seen and examined this patient.: Yes I have fully participated in the care of the patient.: Yes I have reviewed all pertinent clinical information, including history, physical exam and plan: Yes Notes (Text): 06/24/16 15:23 Patient was seen and examined at bedside Complains of right lower extremity pain Continue current pain management Continue physical therapy No complaint of abdominal pain today. We'll the above history and physical and assessment/plan but the resident.
[2016-06-24] MEDS: Magnesium Oxide 400 mg Tab UD PO SCH ×2 (10:13→17:45)
[2016-06-24] MEDS: Enoxaparin 40 mg Syringe SC SCH (10:14)
[2016-06-24] MEDS: Silver Sulfadiazine 1% Cream (20 gm) TOP SCH ×2 (10:14→21:27)
[2016-06-24] MEDS: Clotrimazole 1% Cream 15 GM TUBE TOP SCH ×2 (10:14→17:45)
[2016-06-25] MEDS: Enoxaparin 40 mg Syringe SC SCH (10:34)
[2016-06-25] MEDS: Tramadol 25 mg PO PRN (10:34)
[2016-06-25] MEDS: Magnesium Oxide 400 mg Tab UD PO SCH ×2 (10:35→17:22)
[2016-06-25] MEDS: POLYETHYLENE GLYCOL 3350 17 GM/Dose PACKET PO SCH (10:42)
[2016-06-25] MEDS: Silver Sulfadiazine 1% Cream (20 gm) TOP SCH ×2 (10:50→21:42)
[2016-06-25] MEDS: Clotrimazole 1% Cream 15 GM TUBE TOP SCH ×2 (10:50→17:24)
--- NOTE | 2016-06-25 10:53 | CP.PCM.PN ---
<Becca Soliz I - Last Filed: 06/25/16 12:08> Subjective - Date & Time of Evaluation Date of Evaluation: 06/25/16 Time of Evaluation: 10:30 - Subjective Subjective: PGY3 on Medicine Service Patient seen and examined at bedside. Complains of left knee and hip pain. Able to ambulate with the assistance. Tolerating diet. Last BM today. Denies chest pain, headache, dizziness, shortness of breath, numbness/tingling, nausea, vomiting, fevers/chills. Objective - Vital Signs/Intake and Output Vital Signs (last 24 hours): Temp Pulse Resp BP Pulse Ox 98.0 F 73 20 112/68 98 06/25/16 07:57 06/25/16 07:57 06/25/16 07:57 06/25/16 07:57 06/25/16 07:57 Intake and Output: 06/25/16 06/25/16 06:59 18:59 Intake Total 360 Balance 360 - Medications Medications: Current Medications Acetaminophen (Tylenol 325mg Tab) 650 mg PO Q6 PRN PRN Reason: Pain, Mild (1-3) Last Admin: 06/19/16 21:49 Dose: 650 mg Carbamide Peroxide (Debrox Ear Drops) 1 ml AU BID [facility] Last Admin: 06/25/16 10:37 Dose: 5 drop Clotrimazole (Lotrimin 1%) 0 gm TOP BID [facility] Last Admin: 06/25/16 10:50 Dose: 1 applic Docusate Sodium (Colace) 100 mg PO BID [facility] Last Admin: 06/25/16 10:33 Dose: 100 mg Enoxaparin Sodium (Lovenox) 40 mg SC DAILY [facility] Last Admin: 06/25/16 10:34 Dose: 40 mg Famotidine (Pepcid) 20 mg PO BID [facility] Last Admin: 06/25/16 10:33 Dose: 20 mg Magnesium Oxide (Mag-Ox) 400 mg PO BID [facility] Last Admin: 06/25/16 10:35 Dose: 400 mg Polyethylene Glycol (Miralax) 17 gm PO Q2D [facility] Last Admin: 06/25/16 10:42 Dose: Not Given Silver Sulfadiazine (Silvadene 1% 20 Gm) 0 ea TOP Q12H [facility] Last Admin: 06/25/16 10:50 Dose: 1 applic Sodium Chloride (Sodium Chloride Tab) 1 gm PO DAILY@1330 [facility] Last Admin: 06/24/16 13:46 Dose: 1 gm Tamsulosin HCl (Flomax) 0.8 mg PO DAILY [facility] Last Admin: 06/25/16 10:33 Dose: 0.8 mg Tramadol HCl (Ultram) 25 mg PO TID PRN PRN Reason: Pain, moderate (4-7) Last Admin: 06/25/16 10:34 Dose: 25 mg - Labs Labs: 06/19/16 06:49 06/19/16 06:49 - Constitutional Appears: Non-toxic, No Acute Distress, Chronically Ill - Head Exam Head Exam: ATRAUMATIC, NORMAL INSPECTION, NORMOCEPHALIC - Eye Exam Eye Exam: Normal appearance - ENT Exam ENT Exam: Mucous Membranes Moist - Respiratory Exam Respiratory Exam: Clear to Ausculation Bilateral, NORMAL BREATHING PATTERN - Cardiovascular Exam Cardiovascular Exam: REGULAR RHYTHM, RRR, +S1, +S2 - GI/Abdominal Exam GI & Abdominal Exam: Soft, Tenderness (bilateral left and righ quadrant tenderness), Normal Bowel Sounds - Extremities Exam Additional comments: bilateral stasis changes in b/l lower extremities - Neurological Exam Neurological Exam: Alert, Oriented x3 - Psychiatric Exam Psychiatric exam: Normal Affect, Normal Mood - Skin Skin Exam: Dry, Normal Color, Warm Assessment and Plan - Assessment and Plan (Free Text) Assessment: Abdominal Pain CT abd/pelvis with PO contrast: limited study, bowel containing left inguinal hernia without evidence of obstruction. Smaller fat and vessel containing right inguinal hernia without evidence of obstruction; anterior right aspect of the urinary bladderalso extends into hernia defect. Cholelithiasis. Moderate constipation. Enlarged prostate gland. Right hip arhtroplasty. Right protrusion acetabulum. Sclerosis involving osseous structures, possibly reactive (see full report). - 06/25: slight abdominal pain but no constipation and good bewl sounds. Monitor. - 06/09- no abdominal pain reported, moving bowels - 05/24: less abd pain, reports BMs - 05/22: continues to complain of straining, will give one time miralax dose - 05/21: restart colace 100mg BID as patient straining to have BM - patient with multiple soft stools- will stop miralax for now - patient has been complaining of abdominal pain since admission - Colace 100mg PO BID - Dulcolax every 3 days - Inguinal hernia with unobstructed bowel loop involvement; protruded 04/18 due to straining on toilet. - 05/03/16 B/L inguinal hernias reduced today without incidence - Abdominal US 04/01: Gallstones, no acute cholecystitis, no hydronephrosis. trace ascites (see full report) - Abd/pelv CT 03/11: mod b/l pleural effusions and assoc consolidations; tiny probably gallstones within the gallbladder; small to moderate hiatal hernia; R inguinal hernia which contains small loops of bowel, likely small bowel- no evidence of obstruction as oral contrast is noted within R colon. No definite free air, however evaluation for pneumoperitoneum is suboptimal. Moderate to severe constipation with questionable impaction. Prostate gland 4.1cm x 4.6cm. Urinary bladder appears unremarkable. Small amount of fluid within a right inguinal hernia. Sclerosis of right iliac wing. Extensive anasarca. BPH - Flomax 0.8 mg PO daily - Urology Dr. Hughes on board - will f/u with recs concerning inpatient TURP - 05/18: Pyridium 200 mg PO TIDPC- discontinued Leg swelling - 06/09: No changes - 05/23: will order left leg US to r/o DVT - negative for DVT or any other abnormalities - 05/20: venous doppler ordered - read as: No evidence of deep or superficial vein thrombosis of the right lower extremity with excellent venous flow. Normal valve function noted of the right side. Normal venous flow noted in the left common femoral vein. Fracture of tibia, proximal, right, closed; pain management and physical therapy - 06/25: ambulating with a walker -06/08- re-ordered PT eval - 06/08 - Stable - 05/31 - per ortho - Advance to 10% TTWB RLE, plan repeat xrays in 2 weeks and reassess, continue knee immobilizer, PT order updated - 05/29 - Cont to work with PT. Able to ambulate with walker, NWB on right LE. -05/27- cont current mgmt - 05/24 - continue with current management. - 05/20- ordered venous doppler right leg for swelling - results as above - 05/18- repeat xray with no significant change - 05/11- per ortho team: patient to remain non-weight bearing to right lower extremity - 05/09- right knee xrays ordered by orthopedics team- No acute fracture. Status post ORIF old patellar fracture No significant interval change compared to the prior examination Will follow up recommendations from orthopedics team - 05/05:Ortho Dr. Pino and Jayce West PA following- no orthopedic intervention indicated at this time, strict NWB, PT/OT - Impaction/insufficiency fracture, lateral aspect proximal tibia, non operative , treated with strict NWB and immobilization - At least 6 weeks old by imaging - Tylenol 650 mg PO Q6 PRN mild pain - Tramadol 25mg TID pRN - Daily physical therapy - Nonweight bearing on R leg - L knee x-ray: severe osteopenia. Sclerotic changes about the posterior proximal tibia may relate to a sclerotic healing response of a prior stress fracture here. no tibial plateau depressed fracture. The sclerosis is perceived on the prior 04/21 study; no interval pathology appreciated between 2 exams. If symptoms worsen consider MRI. 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 sclerosi about right acetabulum - daily physical therapy - PT 05/05: decline in transfers due to limitation from right hip and knee pain. patient still able to tolerate hallway ambulation, no episode of orthostatic hypotension post gait. recommending room/hallway ambulation w/ nursing for AM/ PM care or toileting. - PT 05/09: decline in function limited by persisting right groin/ hip and knee pain. patient still recommended for daily out of bed during am/pm care. cleared for ambulation in the room with standard walker non weight bearing right lower extremity - PT 05/10: mild decline in transfers due to pain in right knee and hip. NWB to RLE. Patient with episode of hypotension post ambulation- no syncope. - 05/16: discussed with PT. Patient function declining due to immobility. Patient needs to go from bed to chair. Patient should also be ambulating to the bathroom with assist. Patient becomes hypotensive with walking. - 05/17: patient assisted to chair. discussed with nursing the need for ambulation to and from bathroom with assistance as well as transfer from bed to chair Facial rash - resembles seborrheic dermatitis, patient encouraged to moisturize - ESR 32 - CRP 1.51 - RA- negative - A&D ointment to face Orthostasis- Resolved - 05/21: IV fluids- NS at 100cc/h - stopped - 05/16: Per PT, patient becomes hypotensive with exertion. adding sodium chloride tablets 1g daily - 05/05: -Supine BP: 114/71, HR 75 -Sitting BP: 113/71, HR 90 -Standing BP: 116/72, HR 94 Anemia- resolved - 06/19: Hgb 11.5 - 06/12 - Hgb 10.4, improving - 05/30: Hgb trending up - 05/26: may have a component of Fe deficiency, will replete - 05/25: Hgb still low, will get labs with Iron panel tomorrow - 05/22: Hgb 8.7, repeated and was 9.5 - 05/15: hgb 11.0 - chronic - monitor with weekly labs Aneurysmal dilatation of ascending thoracic aorta; Currently 4.5 cm. Patient needs repeat Ct imaging every 6 months - last CT scan in 03/2016, should be monitored in September, Onychomycosis;chronic and improving - patient had aseptic debridement of toenails x 10 - clotrimazole cream to be applied to feet b/l BID - podiatry following Sacral decubitus- resolved - 05/17- sacrum examined- no sacral ulcers noted - 05/16: patient needs to go from bed to chair to prevent ulcers from re-forming - 04/19: exam revealed a previously healed decubitus ulcer of right buttocks. Sacral exam was clear. - Wound care following - recommending medihoney covered with bordered telfa dressing to right lower buttocks stage 2 pressure ulcer daily. - Pt is OOB to chair with help from PT daily - Order placed for turning patient Q2H History of Urinary Tract Infection - 06/25: No urinary complaints - 06/09: No urinary complaints - 05/20: ordered repeat urine culture for urinary frequency - no growth (Final) - 05/17: urine culture negative - 05/16: + nitrates, 4 RBC, occasional bacteria. - urine culture 05/03- no growth - UA 05/05: +nitrates, occasional bacteria Diarrhea- resolved - 06/09: no complaints of diarrhea, complaining of bleeding w/BMs- buttock wound , Silvadene top ordered - 05/22 - resolved - culture negative - 05/18: c. diff negative, no salmonella - 05/17: ova and parasites negative Hypokalemia- resolved - Monitor - Replete as needed Syncopal Episode x1- resolved - 05/04/16 CTA- negative for PE (underlying atelectasis new findings compared to the prior study 03/20/2016.) Prophylactic Measure - Labs weekly on Sunday - Lovenox 40mg SC daily - Pepcid 20mg PO BID - A and D ointment TOP Q*H - Patient is homeless. Used to stay with friend, but no longer welcome there. Goal is to walk with cane so he can go to a correction (will not qualify with a walker) - patient will need to work with PT frequently - right calf with dark skin lesion underneath knee immobilizer, wound care on board - applying [facility] Disposition - Reaching out to family in [facility] - no response from family per case management - Social Work is following up - Cannot be discharged to correction due to functional status - Continue to work with PT - No new changes to pt status or plan - Palliative care consulted - pt agrees to DNR/DNI- cont current medical mgmt, rec for Silvadene to buttock <Jose Wiggins - Last Filed: 06/25/16 13:03> Objective - Vital Signs/Intake and Output Vital Signs (last 24 hours): Temp Pulse Resp BP Pulse Ox 98.0 F 73 20 112/68 98 06/25/16 07:57 06/25/16 07:57 06/25/16 07:57 06/25/16 07:57 06/25/16 07:57 Intake and Output: 06/25/16 06/25/16 06:59 18:59 Intake Total 360 Balance 360 - Medications Medications: Current Medications Acetaminophen (Tylenol 325mg Tab) 650 mg PO Q6 PRN PRN Reason: Pain, Mild (1-3) Last Admin: 06/19/16 21:49 Dose: 650 mg Carbamide Peroxide (Debrox Ear Drops) 1 ml AU BID [facility] Last Admin: 06/25/16 10:37 Dose: 5 drop Clotrimazole (Lotrimin 1%) 0 gm TOP BID [facility] Last Admin: 06/25/16 10:50 Dose: 1 applic Docusate Sodium (Colace) 100 mg PO BID [facility] Last Admin: 06/25/16 10:33 Dose: 100 mg Enoxaparin Sodium (Lovenox) 40 mg SC DAILY [facility] Last Admin: 06/25/16 10:34 Dose: 40 mg Famotidine (Pepcid) 20 mg PO BID [facility] Last Admin: 06/25/16 10:33 Dose: 20 mg Magnesium Oxide (Mag-Ox) 400 mg PO BID [facility] Last Admin: 06/25/16 10:35 Dose: 400 mg Polyethylene Glycol (Miralax) 17 gm PO Q2D [facility] Last Admin: 06/25/16 10:42 Dose: Not Given Silver Sulfadiazine (Silvadene 1% 20 Gm) 0 ea TOP Q12H [facility] Last Admin: 06/25/16 10:50 Dose: 1 applic Sodium Chloride (Sodium Chloride Tab) 1 gm PO DAILY@1330 [facility] Last Admin: 06/24/16 13:46 Dose: 1 gm Tamsulosin HCl (Flomax) 0.8 mg PO DAILY [facility] Last Admin: 06/25/16 10:33 Dose: 0.8 mg Tramadol HCl (Ultram) 25 mg PO TID PRN PRN Reason: Pain, moderate (4-7) Last Admin: 06/25/16 10:34 Dose: 25 mg - Labs Labs: 06/19/16 06:49 06/19/16 06:49 Attending/Attestation - Attestation I have personally seen and examined this patient.: Yes I have fully participated in the care of the patient.: Yes I have reviewed all pertinent clinical information, including history, physical exam and plan: Yes Notes (Text): 06/25/16 13:03 Patient was seen and examined at bedside There is no change in clinical condition Continues to complain of pain in the right lower extremity We'll continue pain management and also physical therapy No acute intra-abdominal pathology report as per the CT scan. Patient is awaiting placement
[2016-06-26 07:17] LABS: BASO # 0.1 K/uL (0.0-0.2); BASO % 1.3 % (0.0-2.0); EOS # 0.1 K/uL (0.0-0.7); EOS % 2.2 % (0.0-4.0); HEMOGLOBIN 12.4 g/dL (12.0-18.0); LYMPH # 1.6 K/uL (1.0-4.3); LYMPH % 37.6 % (20.0-40.0); MEAN CELL VOLUME 98.7 fL (80.0-94.0); MEAN CORPUSCULAR HEMOGLOBIN 32.7 pg (27.0-31.0); MEAN CORPUSCULAR HGB CONC 33.2 g/dL (33.0-37.0); MEAN PLATELET VOLUME 8.3 fL (7.2-11.7); MONO # 0.4 K/uL (0.0-0.8); MONO % 10.2 % (0.0-10.0); NEUT % 48.7 % (50.0-75.0); NRBC % 0.1 % (0.0-2.0); RBC 3.79 Mil/uL (4.40-5.90); RED CELL DISTRIBUTION WIDTH 12.9 % (11.5-14.5); WHITE BLOOD COUNT 4.2 K/uL (4.8-10.8)
[2016-06-26 07:47] LABS: ALBUMIN 3.8 g/dL (3.5-5.0)
[2016-06-26 07:49] LABS: GFR AFRICAN-AMERICAN > 60; GFR NON-AFRICAN AMERICAN > 60
[2016-06-26 07:50] LABS: ALT/SGPT 6 U/L (21-72); AST/SGOT 21 U/L (17-59); BLOOD UREA NITROGEN 12 mg/dL (9-20)
[2016-06-26 07:51] LABS: CALCIUM 8.8 mg/dl (8.6-10.4)
[2016-06-26] MEDS: Enoxaparin 40 mg Syringe SC SCH (10:22)
[2016-06-26] MEDS: Magnesium Oxide 400 mg Tab UD PO SCH ×2 (10:22→17:52)
[2016-06-26] MEDS: Clotrimazole 1% Cream 15 GM TUBE TOP SCH ×2 (10:23→17:56)
[2016-06-26] MEDS: Silver Sulfadiazine 1% Cream (20 gm) TOP SCH ×2 (10:23→22:07)
--- NOTE | 2016-06-26 13:28 | CP.PCM.PN ---
<Kwame Sears - Last Filed: 06/26/16 13:29> Subjective - Date & Time of Evaluation Date of Evaluation: 06/26/16 Time of Evaluation: 07:30 - Subjective Subjective: PGY-1 Medicine Progress Note for Dr. Cantu Patient seen and examined at bedside. No acute event overnight. Patient reports chronic left knee and hip pain. He ambulates with rolling walker. He is tolerating diet and having regular BMs. Denies fevers/chills, chest pain, SOB, palpitations, headache, dizziness, shortness of breath, numbness/tingling, n/v/ d. Objective - Vital Signs/Intake and Output Vital Signs (last 24 hours): Temp Pulse Resp BP Pulse Ox 97.9 F 70 18 122/71 99 06/26/16 07:02 06/26/16 08:00 06/26/16 07:02 06/26/16 07:02 06/26/16 07:02 Intake and Output: 06/26/16 06/26/16 06:59 18:59 Intake Total 340 Output Total 300 Balance 40 - Medications Medications: Current Medications Acetaminophen (Tylenol 325mg Tab) 650 mg PO Q6 PRN PRN Reason: Pain, Mild (1-3) Last Admin: 06/19/16 21:49 Dose: 650 mg Carbamide Peroxide (Debrox Ear Drops) 1 ml AU BID [facility] Last Admin: 06/26/16 10:22 Dose: 5 drop Clotrimazole (Lotrimin 1%) 0 gm TOP BID [facility] [place] Last Admin: 06/26/16 10:23 Dose: 1 applic Docusate Sodium (Colace) 100 mg PO BID [facility] [place] Last Admin: 06/26/16 10:22 Dose: 100 mg Enoxaparin Sodium (Lovenox) 40 mg SC DAILY [facility] [place] Last Admin: 06/26/16 10:22 Dose: 40 mg Famotidine (Pepcid) 20 mg PO BID [facility] [place] Last Admin: 06/26/16 10:22 Dose: 20 mg Magnesium Oxide (Mag-Ox) 400 mg PO BID [facility] [place] Last Admin: 06/26/16 10:22 Dose: 400 mg Polyethylene Glycol (Miralax) 17 gm PO Q2D [facility] [place] Last Admin: 06/25/16 10:42 Dose: Not Given Silver Sulfadiazine (Silvadene 1% 20 Gm) 0 ea TOP Q12H [facility] [place] Last Admin: 06/26/16 10:23 Dose: 1 applic Sodium Chloride (Sodium Chloride Tab) 1 gm PO DAILY@1330 [facility] [place] Last Admin: 06/26/16 12:52 Dose: 1 gm Tamsulosin HCl (Flomax) 0.8 mg PO DAILY [facility] [place] Last Admin: 06/26/16 10:22 Dose: 0.8 mg Tramadol HCl (Ultram) 25 mg PO TID PRN PRN Reason: Pain, moderate (4-7) Last Admin: 06/25/16 10:34 Dose: 25 mg - Labs Labs: 06/26/16 07:01 06/26/16 07:01 - Constitutional Appears: No Acute Distress - Head Exam Head Exam: ATRAUMATIC, NORMOCEPHALIC - Eye Exam Eye Exam: EOMI, Normal appearance Pupil Exam: PERRL - ENT Exam ENT Exam: Mucous Membranes Moist - Neck Exam Neck Exam: Normal Inspection - Respiratory Exam Respiratory Exam: Clear to Ausculation Bilateral, NORMAL BREATHING PATTERN - Cardiovascular Exam Cardiovascular Exam: REGULAR RHYTHM, +S1, +S2 - GI/Abdominal Exam GI & Abdominal Exam: Soft, Normal Bowel Sounds. absent: Tenderness - Extremities Exam Extremities Exam: Normal Capillary Refill Additional comments: bilateral inguinal hernias - Back Exam Back Exam: absent: CVA tenderness (L), CVA tenderness (R) - Neurological Exam Neurological Exam: Alert, Awake, CN II-XII Intact, Oriented x3 - Psychiatric Exam Psychiatric exam: Normal Affect, Normal Mood - Skin Skin Exam: Dry, Intact, Warm Additional comments: chronic pigmentation changes in LEs likely due to venous stasis Assessment and Plan - Assessment and Plan (Free Text) Plan: Abdominal Pain CT abd/pelvis with PO contrast: limited study, bowel containing left inguinal hernia without evidence of obstruction. Smaller fat and vessel containing right inguinal hernia without evidence of obstruction; anterior right aspect of the urinary bladderalso extends into hernia defect. Cholelithiasis. Moderate constipation. Enlarged prostate gland. Right hip arhtroplasty. Right protrusion acetabulum. Sclerosis involving osseous structures, possibly reactive (see full report). - 06/25: slight abdominal pain but no constipation and good bewl sounds. Monitor. - 06/09- no abdominal pain reported, moving bowels - 05/24: less abd pain, reports BMs - 05/22: continues to complain of straining, will give one time miralax dose - 05/21: restart colace 100mg BID as patient straining to have BM - patient with multiple soft stools- will stop miralax for now - patient has been complaining of abdominal pain since admission - Colace 100mg PO BID - Dulcolax every 3 days - Inguinal hernia with unobstructed bowel loop involvement; protruded 04/18 due to straining on toilet. - 05/03/16 B/L inguinal hernias reduced today without incidence - Abdominal US 04/01: Gallstones, no acute cholecystitis, no hydronephrosis. trace ascites (see full report) - Abd/pelv CT 03/11: mod b/l pleural effusions and assoc consolidations; tiny probably gallstones within the gallbladder; small to moderate hiatal hernia; R inguinal hernia which contains small loops of bowel, likely small bowel- no evidence of obstruction as oral contrast is noted within R colon. No definite free air, however evaluation for pneumoperitoneum is suboptimal. Moderate to severe constipation with questionable impaction. Prostate gland 4.1cm x 4.6cm. Urinary bladder appears unremarkable. Small amount of fluid within a right inguinal hernia. Sclerosis of right iliac wing. Extensive anasarca. BPH - Flomax 0.8 mg PO daily - Urology Dr. Hughes on board - will f/u with recs concerning inpatient TURP - 05/18: Pyridium 200 mg PO TIDPC- discontinued Leg swelling - 06/09: No changes - 05/23: will order left leg US to r/o DVT - negative for DVT or any other abnormalities - 05/20: venous doppler ordered - read as: No evidence of deep or superficial vein thrombosis of the right lower extremity with excellent venous flow. Normal valve function noted of the right side. Normal venous flow noted in the left common femoral vein. Fracture of tibia, proximal, right, closed; pain management and physical therapy - 06/25: ambulating with a walker -06/08- re-ordered PT eval - 06/08 - Stable - 05/31 - per ortho - Advance to 10% TTWB RLE, plan repeat xrays in 2 weeks and reassess, continue knee immobilizer, PT order updated - 05/29 - Cont to work with PT. Able to ambulate with walker, NWB on right LE. -05/27- cont current mgmt - 05/24 - continue with current management. - 05/20- ordered venous doppler right leg for swelling - results as above - 05/18- repeat xray with no significant change - 05/11- per ortho team: patient to remain non-weight bearing to right lower extremity - 05/09- right knee xrays ordered by orthopedics team- No acute fracture. Status post ORIF old patellar fracture No significant interval change compared to the prior examination Will follow up recommendations from orthopedics team - 05/05:Ortho Dr. Pino and Jayce West PA following- no orthopedic intervention indicated at this time, strict NWB, PT/OT - Impaction/insufficiency fracture, lateral aspect proximal tibia, non operative , treated with strict NWB and immobilization - At least 6 weeks old by imaging - Tylenol 650 mg PO Q6 PRN mild pain - Tramadol 25mg TID pRN - Daily physical therapy - Nonweight bearing on R leg - L knee x-ray: severe osteopenia. Sclerotic changes about the posterior proximal tibia may relate to a sclerotic healing response of a prior stress fracture here. no tibial plateau depressed fracture. The sclerosis is perceived on the prior 04/21 study; no interval pathology appreciated between 2 exams. If symptoms worsen consider MRI. 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 sclerosi about right acetabulum - daily physical therapy - PT 05/05: decline in transfers due to limitation from right hip and knee pain. patient still able to tolerate hallway ambulation, no episode of orthostatic hypotension post gait. recommending room/hallway ambulation w/ nursing for AM/ PM care or toileting. - PT 05/09: decline in function limited by persisting right groin/ hip and knee pain. patient still recommended for daily out of bed during am/pm care. cleared for ambulation in the room with standard walker non weight bearing right lower extremity - PT 05/10: mild decline in transfers due to pain in right knee and hip. NWB to RLE. Patient with episode of hypotension post ambulation- no syncope. - 05/16: discussed with PT. Patient function declining due to immobility. Patient needs to go from bed to chair. Patient should also be ambulating to the bathroom with assist. Patient becomes hypotensive with walking. - 05/17: patient assisted to chair. discussed with nursing the need for ambulation to and from bathroom with assistance as well as transfer from bed to chair Facial rash - resembles seborrheic dermatitis, patient encouraged to moisturize - ESR 32 - CRP 1.51 - RA- negative - A&D ointment to face Orthostasis- Resolved - 05/21: IV fluids- NS at 100cc/h - stopped - 05/16: Per PT, patient becomes hypotensive with exertion. adding sodium chloride tablets 1g daily - 05/05: -Supine BP: 114/71, HR 75 -Sitting BP: 113/71, HR 90 -Standing BP: 116/72, HR 94 Anemia- resolved - 06/19: Hgb 11.5 - 06/12 - Hgb 10.4, improving - 05/30: Hgb trending up - 05/26: may have a component of Fe deficiency, will replete - 05/25: Hgb still low, will get labs with Iron panel tomorrow - 05/22: Hgb 8.7, repeated and was 9.5 - 05/15: hgb 11.0 - chronic - monitor with weekly labs Aneurysmal dilatation of ascending thoracic aorta; Currently 4.5 cm. Patient needs repeat Ct imaging every 6 months - last CT scan in 03/2016, should be monitored in September, Onychomycosis;chronic and improving - patient had aseptic debridement of toenails x 10 - clotrimazole cream to be applied to feet b/l BID - podiatry following Sacral decubitus- resolved - 05/17- sacrum examined- no sacral ulcers noted - 05/16: patient needs to go from bed to chair to prevent ulcers from re-forming - 04/19: exam revealed a previously healed decubitus ulcer of right buttocks. Sacral exam was clear. - Wound care following - recommending medihoney covered with bordered telfa dressing to right lower buttocks stage 2 pressure ulcer daily. - Pt is OOB to chair with help from PT daily - Order placed for turning patient Q2H History of Urinary Tract Infection - 06/25: No urinary complaints - 06/09: No urinary complaints - 05/20: ordered repeat urine culture for urinary frequency - no growth (Final) - 05/17: urine culture negative - 05/16: + nitrates, 4 RBC, occasional bacteria. - urine culture 05/03- no growth - UA 05/05: +nitrates, occasional bacteria Diarrhea- resolved - 06/09: no complaints of diarrhea, complaining of bleeding w/BMs- buttock wound , Silvadene top ordered - 05/22 - resolved - culture negative - 05/18: c. diff negative, no salmonella - 05/17: ova and parasites negative Hypokalemia- resolved - Monitor - Replete as needed Syncopal Episode x1- resolved - 05/04/16 CTA- negative for PE (underlying atelectasis new findings compared to the prior study 03/20/2016.) Prophylactic Measure - Labs weekly on Sunday - Lovenox 40mg SC daily - Pepcid 20mg PO BID - A and D ointment TOP Q*H - Patient is homeless. Used to stay with friend, but no longer welcome there. Goal is to walk with cane so he can go to a nursing home (will not qualify with a walker) - patient will need to work with PT frequently - right calf with dark skin lesion underneath knee immobilizer, wound care on board - applying medihoney Disposition - Reaching out to family in [facility] - no response from family per case management - Social Work is following up - Cannot be discharged to nursing home due to functional status - Continue to work with PT - No new changes to pt status or plan - Palliative care consulted - pt agrees to DNR/DNI- cont current medical mgmt, rec for Silvadene to buttock <Parker Cantu - Last Filed: 07/12/16 12:27> Objective - Vital Signs/Intake and Output Vital Signs (last 24 hours): Temp Pulse Resp BP Pulse Ox 98.3 F 82 20 102/64 96 07/12/16 09:22 07/12/16 09:22 07/12/16 09:22 07/12/16 09:22 07/12/16 09:22 Intake and Output: 07/12/16 07/12/16 06:59 18:59 Output Total 200 Balance -200 - Medications Medications: Current Medications Acetaminophen (Tylenol 325mg Tab) 650 mg PO Q6 PRN PRN Reason: Pain, Mild (1-3) Last Admin: 07/02/16 21:37 Dose: 650 mg Docusate Sodium (Colace) 100 mg PO BID [facility] [place] Last Admin: 06/30/16 09:13 Dose: Not Given Enoxaparin Sodium (Lovenox) 40 mg SC DAILY [facility] Last Admin: 07/12/16 10:04 Dose: 40 mg Famotidine (Pepcid) 20 mg PO BID [facility] Last Admin: 07/12/16 10:04 Dose: 20 mg Ketoconazole (Nizoral) 0 gm TOP BID [facility] [place] Last Admin: 07/12/16 10:04 Dose: 1 applic Loperamide HCl (Imodium) 2 mg PO QID PRN PRN Reason: Diarrhea Last Admin: 07/01/16 20:22 Dose: 2 mg Magnesium Oxide (Mag-Ox) 400 mg PO BID [facility] [place] Last Admin: 07/12/16 10:04 Dose: 400 mg Polyethylene Glycol (Miralax) 17 gm PO Q2D [facility] Last Admin: 06/29/16 10:44 Dose: Not Given Sodium Chloride (Sodium Chloride Tab) 1 gm PO DAILY@1330 [facility] [place] Last Admin: 07/11/16 14:32 Dose: 1 gm Tamsulosin HCl (Flomax) 0.8 mg PO DAILY [facility] [place] Last Admin: 07/12/16 10:04 Dose: 0.8 mg Tramadol HCl (Ultram) 25 mg PO TID PRN PRN Reason: Pain, moderate (4-7) Last Admin: 07/10/16 09:21 Dose: 25 mg - Labs Labs: 07/10/16 12:53 07/10/16 09:22 Attending/Attestation - Attestation I have personally seen and examined this patient.: Yes I have fully participated in the care of the patient.: Yes I have reviewed all pertinent clinical information, including history, physical exam and plan: Yes Notes (Text): Patient seen and examined with the resident. Agree with the resident's evaluation, assessment and plan. BPH chronic Leg swelling Fracture of tibia, proximal, right, closed
[2016-06-27] MEDS: Magnesium Oxide 400 mg Tab UD PO SCH ×2 (11:37→18:03)
[2016-06-27] MEDS: Tramadol 25 mg PO PRN (11:38)
[2016-06-27] MEDS: POLYETHYLENE GLYCOL 3350 17 GM/Dose PACKET PO SCH (11:38)
[2016-06-27] MEDS: Clotrimazole 1% Cream 15 GM TUBE TOP SCH ×2 (11:39→18:00)
[2016-06-27] MEDS: Enoxaparin 40 mg Syringe SC SCH (11:39)
[2016-06-27] MEDS: Silver Sulfadiazine 1% Cream (20 gm) TOP SCH ×2 (11:39→22:00)
--- NOTE | 2016-06-27 13:18 | CP.PCM.PN ---
Subjective - Date & Time of Evaluation Date of Evaluation: 06/27/16 Time of Evaluation: 13:15 - Subjective Subjective: Patient with continued right hip pain. No new complaints. Objective - Vital Signs/Intake and Output Vital Signs (last 24 hours): Temp Pulse Resp BP Pulse Ox 97.7 F 78 20 132/77 99 06/27/16 07:50 06/27/16 07:50 06/27/16 07:50 06/27/16 07:50 06/27/16 07:50 - Medications Medications: Current Medications Acetaminophen (Tylenol 325mg Tab) 650 mg PO Q6 PRN PRN Reason: Pain, Mild (1-3) Last Admin: 06/19/16 21:49 Dose: 650 mg Carbamide Peroxide (Debrox Ear Drops) 1 ml AU BID [facility] Last Admin: 06/26/16 17:54 Dose: 1 drop Clotrimazole (Lotrimin 1%) 0 gm TOP BID [facility] Last Admin: 06/27/16 11:39 Dose: 1 applic Docusate Sodium (Colace) 100 mg PO BID [facility] Last Admin: 06/27/16 11:40 Dose: Not Given Enoxaparin Sodium (Lovenox) 40 mg SC DAILY [facility] Last Admin: 06/27/16 11:39 Dose: 40 mg Famotidine (Pepcid) 20 mg PO BID [facility] Last Admin: 06/27/16 11:38 Dose: 20 mg Magnesium Oxide (Mag-Ox) 400 mg PO BID [facility] Last Admin: 06/27/16 11:37 Dose: 400 mg Polyethylene Glycol (Miralax) 17 gm PO Q2D [facility] Last Admin: 06/27/16 11:38 Dose: Not Given Silver Sulfadiazine (Silvadene 1% 20 Gm) 0 ea TOP Q12H [facility] Last Admin: 06/27/16 11:39 Dose: 1 applic Sodium Chloride (Sodium Chloride Tab) 1 gm PO DAILY@1330 [facility] Last Admin: 06/26/16 12:52 Dose: 1 gm Tamsulosin HCl (Flomax) 0.8 mg PO DAILY [facility] Last Admin: 06/26/16 10:22 Dose: 0.8 mg Tramadol HCl (Ultram) 25 mg PO TID PRN PRN Reason: Pain, moderate (4-7) Last Admin: 06/27/16 11:38 Dose: 25 mg - Labs Labs: 06/26/16 07:01 06/26/16 07:01 - Constitutional Appears: Well, No Acute Distress - Respiratory Exam Respiratory Exam: NORMAL BREATHING PATTERN - Extremities Exam Additional comments: RLE: non tender to lateral knee/tibia. 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 Pino Patient homeless, no family to speak of, no where for placement outside of senior care, and patient can only have cane for ambulatory device at senior care Per Dr. Pino., will wean walker to cane Encourage OOB PT notified of new orders orthopedically stable Status: Chronic
--- NOTE | 2016-06-27 16:39 | RAD ---
PROCEDURE: Right Knee Radiographs. HISTORY: f/u stress fracture, may remove immobilizer COMPARISON: 06/06/2016 FINDINGS: BONES: Severe osteopenia early limiting evaluation for any stress fractures. Is is particularly limited regarding evaluation of the medial femoral condyle along the intercondylar fossa. This appearance however is similar. The cerclage wire transfixing the patellar prior fracture is similar-appearing JOINTS: Tricompartmental osteoarthrosis. Probable faint medial femoral tibial chondrocalcinosis JOINT EFFUSION: None suspect OTHER FINDINGS: Well corticated ossification along the anterior tibial plateau consistent with remote trauma and unchanged 06/13/2016 IMPRESSION: Severe osteopenia in this markedly limits optimal evaluation for any stress fracture- as detailed above. If this is strongly suspect, consider MRI for further evaluation Multi compartmental osteoarthrosis.
--- NOTE | 2016-06-27 17:55 | CP.PCM.PN ---
<Kwame Sears - Last Filed: 06/27/16 17:52> Subjective - Date & Time of Evaluation Date of Evaluation: 06/27/16 Time of Evaluation: 17:52 - Subjective Subjective: PGY-1 Medicine Progress Note for Dr. Cantu Patient seen and examined at bedside. No acute event overnight. Patient reports same pain in right hip and bilateral LEs. He currently ambulates with rolling walker. As per ortho, 8 weeks of immobilization and protected walking boot. Physical Therapy was notified of changes by ortho. He is tolerating diet and having regular BMs. Denies fevers/chills, chest pain, SOB, palpitations, headache, dizziness, shortness of breath, numbness/tingling, n/v/d. Objective - Vital Signs/Intake and Output Vital Signs (last 24 hours): Temp Pulse Resp BP Pulse Ox 97.7 F 78 20 132/77 99 06/27/16 07:50 06/27/16 17:31 06/27/16 07:50 06/27/16 07:50 06/27/16 07:50 Intake and Output: 06/27/16 06/27/16 06:59 18:59 Intake Total 450 Balance 450 - Medications Medications: Current Medications Acetaminophen (Tylenol 325mg Tab) 650 mg PO Q6 PRN PRN Reason: Pain, Mild (1-3) Last Admin: 06/19/16 21:49 Dose: 650 mg Carbamide Peroxide (Debrox Ear Drops) 1 ml AU BID [facility] Last Admin: 06/26/16 17:54 Dose: 1 drop Clotrimazole (Lotrimin 1%) 0 gm TOP BID [facility] Last Admin: 06/27/16 11:39 Dose: 1 applic Docusate Sodium (Colace) 100 mg PO BID [facility] Last Admin: 06/27/16 11:40 Dose: Not Given Enoxaparin Sodium (Lovenox) 40 mg SC DAILY [facility] Last Admin: 06/27/16 11:39 Dose: 40 mg Famotidine (Pepcid) 20 mg PO BID [facility] Last Admin: 06/27/16 11:38 Dose: 20 mg Magnesium Oxide (Mag-Ox) 400 mg PO BID [facility] Last Admin: 06/27/16 11:37 Dose: 400 mg Polyethylene Glycol (Miralax) 17 gm PO Q2D [facility] Last Admin: 06/27/16 11:38 Dose: Not Given Silver Sulfadiazine (Silvadene 1% 20 Gm) 0 ea TOP Q12H [facility] Last Admin: 06/27/16 11:39 Dose: 1 applic Sodium Chloride (Sodium Chloride Tab) 1 gm PO DAILY@1330 [facility] Last Admin: 06/26/16 12:52 Dose: 1 gm Tamsulosin HCl (Flomax) 0.8 mg PO DAILY [facility] Last Admin: 06/26/16 10:22 Dose: 0.8 mg Tramadol HCl (Ultram) 25 mg PO TID PRN PRN Reason: Pain, moderate (4-7) Last Admin: 06/27/16 11:38 Dose: 25 mg - Labs Labs: 06/26/16 07:01 06/26/16 07:01 - Constitutional Appears: No Acute Distress - Head Exam Head Exam: ATRAUMATIC, NORMOCEPHALIC - Eye Exam Eye Exam: EOMI, Normal appearance Pupil Exam: PERRL - ENT Exam ENT Exam: Mucous Membranes Moist - Respiratory Exam Respiratory Exam: Clear to Ausculation Bilateral, NORMAL BREATHING PATTERN - Cardiovascular Exam Cardiovascular Exam: REGULAR RHYTHM, +S1, +S2 - GI/Abdominal Exam GI & Abdominal Exam: Soft, Normal Bowel Sounds. absent: Tenderness - Extremities Exam Extremities Exam: Tenderness (bilateral legs, right hip) - Back Exam Back Exam: absent: CVA tenderness (L), CVA tenderness (R) - Neurological Exam Neurological Exam: Alert, Awake, CN II-XII Intact, Oriented x3 Additional comments: ambulating with rolling walker - Psychiatric Exam Psychiatric exam: Normal Affect, Normal Mood - Skin Skin Exam: Dry, Intact, Warm Additional comments: chronic changes likely from venous stasis Assessment and Plan - Assessment and Plan (Free Text) Plan: Fracture of tibia, proximal, right, closed; pain management and physical therapy - 06/27: 8 weeks of immobilization and protected WB as per ortho xrays right knee show resolved area of sclerosis at presumed stress fracture right lateral tibial plateau (MRI contraindicated due to metallic implant in patella) PT notified - 06/25: ambulating with a walker -06/08- re-ordered PT eval - 06/08 - Stable - 05/31 - per ortho - Advance to 10% TTWB RLE, plan repeat xrays in 2 weeks and reassess, continue knee immobilizer, PT order updated - 05/29 - Cont to work with PT. Able to ambulate with walker, NWB on right LE. -05/27- cont current mgmt - 05/24 - continue with current management. - 05/20- ordered venous doppler right leg for swelling - results as above - 05/18- repeat xray with no significant change - 05/11- per ortho team: patient to remain non-weight bearing to right lower extremity - 05/09- right knee xrays ordered by orthopedics team- No acute fracture. Status post ORIF old patellar fracture No significant interval change compared to the prior examination Will follow up recommendations from orthopedics team - 05/05:Ortho Dr. Pino and Jayce West PA following- no orthopedic intervention indicated at this time, strict NWB, PT/OT - Impaction/insufficiency fracture, lateral aspect proximal tibia, non operative , treated with strict NWB and immobilization - At least 6 weeks old by imaging - Tylenol 650 mg PO Q6 PRN mild pain - Tramadol 25mg TID pRN - Daily physical therapy - Nonweight bearing on R leg - L knee x-ray: severe osteopenia. Sclerotic changes about the posterior proximal tibia may relate to a sclerotic healing response of a prior stress fracture here. no tibial plateau depressed fracture. The sclerosis is perceived on the prior 04/21 study; no interval pathology appreciated between 2 exams. If symptoms worsen consider MRI. 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 Gait Instability; will continue with PT/OT - 06/27: 8 weeks of immobilization and protected WB as per ortho xrays right knee show resolved area of sclerosis at presumed stress fracture right lateral tibial plateau (MRI contraindicated due to metallic implant in patella) PT notified - 06/25: ambulating with a walker -06/09: re-ordered PT eval for continued therapy - 06/02: complains of pain on plantar surface of foot - likely plantar fasciitis , will have PT work on it - Patient uses walker- NWB at this time RLE - not safe for discharge to [facility] - Chronic RLE pain (since admission) due to slippage of mechanical hardware in his leg from prior procedure - R knee immobilizer in place and patient on strict NWB status - Xray 04/03: superior migration of prosthesis. sclerosi about right acetabulum - daily physical therapy - PT 05/05: decline in transfers due to limitation from right hip and knee pain. patient still able to tolerate hallway ambulation, no episode of orthostatic hypotension post gait. recommending room/hallway ambulation w/ nursing for AM/ PM care or toileting. - PT 05/09: decline in function limited by persisting right groin/ hip and knee pain. patient still recommended for daily out of bed during am/pm care. cleared for ambulation in the room with standard walker non weight bearing right lower extremity - PT 05/10: mild decline in transfers due to pain in right knee and hip. NWB to RLE. Patient with episode of hypotension post ambulation- no syncope. - 05/16: discussed with PT. Patient function declining due to immobility. Patient needs to go from bed to chair. Patient should also be ambulating to the bathroom with assist. Patient becomes hypotensive with walking. - 05/17: patient assisted to chair. discussed with nursing the need for ambulation to and from bathroom with assistance as well as transfer from bed to chair Abdominal Pain resolved CT abd/pelvis with PO contrast: limited study, bowel containing left inguinal hernia without evidence of obstruction. Smaller fat and vessel containing right inguinal hernia without evidence of obstruction; anterior right aspect of the urinary bladderalso extends into hernia defect. Cholelithiasis. Moderate constipation. Enlarged prostate gland. Right hip arhtroplasty. Right protrusion acetabulum. Sclerosis involving osseous structures, possibly reactive (see full report). - 06/25: slight abdominal pain but no constipation and good bewl sounds. Monitor. - 06/09- no abdominal pain reported, moving bowels - 05/24: less abd pain, reports BMs - 05/22: continues to complain of straining, will give one time miralax dose - 05/21: restart colace 100mg BID as patient straining to have BM - patient with multiple soft stools- will stop miralax for now - patient has been complaining of abdominal pain since admission - Colace 100mg PO BID - Dulcolax every 3 days - Inguinal hernia with unobstructed bowel loop involvement; protruded 04/18 due to straining on toilet. - 05/03/16 B/L inguinal hernias reduced today without incidence - Abdominal US 04/01: Gallstones, no acute cholecystitis, no hydronephrosis. trace ascites (see full report) - Abd/pelv CT 03/11: mod b/l pleural effusions and assoc consolidations; tiny probably gallstones within the gallbladder; small to moderate hiatal hernia; R inguinal hernia which contains small loops of bowel, likely small bowel- no evidence of obstruction as oral contrast is noted within R colon. No definite free air, however evaluation for pneumoperitoneum is suboptimal. Moderate to severe constipation with questionable impaction. Prostate gland 4.1cm x 4.6cm. Urinary bladder appears unremarkable. Small amount of fluid within a right inguinal hernia. Sclerosis of right iliac wing. Extensive anasarca. BPH - Flomax 0.8 mg PO daily - Urology Dr. Hughes on board - will f/u with recs concerning inpatient TURP - 05/18: Pyridium 200 mg PO TIDPC- discontinued Leg swelling - 06/09: No changes - 05/23: will order left leg US to r/o DVT - negative for DVT or any other abnormalities - 05/20: venous doppler ordered - read as: No evidence of deep or superficial vein thrombosis of the right lower extremity with excellent venous flow. Normal valve function noted of the right side. Normal venous flow noted in the left common femoral vein. Facial rash - resembles seborrheic dermatitis, patient encouraged to moisturize - ESR 32 - CRP 1.51 - RA- negative - A&D ointment to face Orthostasis- Resolved - 05/21: IV fluids- NS at 100cc/h - stopped - 05/16: Per PT, patient becomes hypotensive with exertion. adding sodium chloride tablets 1g daily - 05/05: -Supine BP: 114/71, HR 75 -Sitting BP: 113/71, HR 90 -Standing BP: 116/72, HR 94 Anemia- resolved - 06/19: Hgb 11.5 - 06/12 - Hgb 10.4, improving - 05/30: Hgb trending up - 05/26: may have a component of Fe deficiency, will replete - 05/25: Hgb still low, will get labs with Iron panel tomorrow - 05/22: Hgb 8.7, repeated and was 9.5 - 05/15: hgb 11.0 - chronic - monitor with weekly labs Aneurysmal dilatation of ascending thoracic aorta; Currently 4.5 cm. Patient needs repeat Ct imaging every 6 months - last CT scan in 03/2016, should be monitored in September, Onychomycosis;chronic and improving - patient had aseptic debridement of toenails x 10 - clotrimazole cream to be applied to feet b/l BID - podiatry following Sacral decubitus- resolved - 05/17- sacrum examined- no sacral ulcers noted - 05/16: patient needs to go from bed to chair to prevent ulcers from re-forming - 04/19: exam revealed a previously healed decubitus ulcer of right buttocks. Sacral exam was clear. - Wound care following - recommending medihoney covered with bordered telfa dressing to right lower buttocks stage 2 pressure ulcer daily. - Pt is OOB to chair with help from PT daily - Order placed for turning patient Q2H History of Urinary Tract Infection - 06/25: No urinary complaints - 06/09: No urinary complaints - 05/20: ordered repeat urine culture for urinary frequency - no growth (Final) - 05/17: urine culture negative - 05/16: + nitrates, 4 RBC, occasional bacteria. - urine culture 05/03- no growth - UA 05/05: +nitrates, occasional bacteria Diarrhea- resolved - 06/09: no complaints of diarrhea, complaining of bleeding w/BMs- buttock wound , Silvadene top ordered - 05/22 - resolved - culture negative - 05/18: c. diff negative, no salmonella - 05/17: ova and parasites negative Hypokalemia- resolved - Monitor - Replete as needed Syncopal Episode x1- resolved - 05/04/16 CTA- negative for PE (underlying atelectasis new findings compared to the prior study 03/20/2016.) Prophylactic Measure - Labs weekly on Sunday - Lovenox 40mg SC daily - Pepcid 20mg PO BID - A and D ointment TOP Q*H - Patient is homeless. Used to stay with friend, but no longer welcome there. Goal is to walk with cane so he can go to a [facility] (will not qualify with a walker) - patient will need to work with PT frequently - right calf with dark skin lesion underneath knee immobilizer, wound care on board - applying medihoney Disposition - Reaching out to family in [facility] - no response from family per case management - Social Work is following up - Cannot be discharged to [facility] due to functional status - Continue to work with PT - No new changes to pt status or plan - Palliative care consulted - pt agrees to DNR/DNI- cont current medical mgmt, rec for Silvadene to buttock <Parker Cantu - Last Filed: 07/12/16 12:28> Objective - Vital Signs/Intake and Output Vital Signs (last 24 hours): Temp Pulse Resp BP Pulse Ox 98.3 F 82 20 102/64 96 07/12/16 09:22 07/12/16 09:22 07/12/16 09:22 07/12/16 09:22 07/12/16 09:22 Intake and Output: 07/12/16 07/12/16 06:59 18:59 Output Total 200 Balance -200 - Medications Medications: Current Medications Acetaminophen (Tylenol 325mg Tab) 650 mg PO Q6 PRN PRN Reason: Pain, Mild (1-3) Last Admin: 07/02/16 21:37 Dose: 650 mg Docusate Sodium (Colace) 100 mg PO BID [facility] Last Admin: 06/30/16 09:13 Dose: Not Given Enoxaparin Sodium (Lovenox) 40 mg SC DAILY [facility] Last Admin: 07/12/16 10:04 Dose: 40 mg Famotidine (Pepcid) 20 mg PO BID [facility] Last Admin: 07/12/16 10:04 Dose: 20 mg Ketoconazole (Nizoral) 0 gm TOP BID [facility] Last Admin: 07/12/16 10:04 Dose: 1 applic Loperamide HCl (Imodium) 2 mg PO QID PRN PRN Reason: Diarrhea Last Admin: 07/01/16 20:22 Dose: 2 mg Magnesium Oxide (Mag-Ox) 400 mg PO BID [facility] Last Admin: 07/12/16 10:04 Dose: 400 mg Polyethylene Glycol (Miralax) 17 gm PO Q2D [facility] Last Admin: 06/29/16 10:44 Dose: Not Given Sodium Chloride (Sodium Chloride Tab) 1 gm PO DAILY@1330 [facility] Last Admin: 07/11/16 14:32 Dose: 1 gm Tamsulosin HCl (Flomax) 0.8 mg PO DAILY [facility] Last Admin: 07/12/16 10:04 Dose: 0.8 mg Tramadol HCl (Ultram) 25 mg PO TID PRN PRN Reason: Pain, moderate (4-7) Last Admin: 07/10/16 09:21 Dose: 25 mg - Labs Labs: 07/10/16 12:53 07/10/16 09:22 Attending/Attestation - Attestation I have personally seen and examined this patient.: Yes I have fully participated in the care of the patient.: Yes I have reviewed all pertinent clinical information, including history, physical exam and plan: Yes Notes (Text): Patient seen and examined with the resident. Agree with the resident's evaluation, assessment and plan. BPH chronic Leg swelling Fracture of tibia, proximal, right, closed
[2016-06-28] MEDS: Magnesium Oxide 400 mg Tab UD PO SCH ×2 (10:58→17:26)
[2016-06-28] MEDS: Enoxaparin 40 mg Syringe SC SCH (10:58)
[2016-06-28] MEDS: Clotrimazole 1% Cream 15 GM TUBE TOP SCH ×2 (11:00→17:27)
[2016-06-28] MEDS: Silver Sulfadiazine 1% Cream (20 gm) TOP SCH ×2 (14:28→21:15)
--- NOTE | 2016-06-28 14:41 | CP.PCM.PN ---
<Kwame Sears - Last Filed: 06/28/16 14:41> Subjective - Date & Time of Evaluation Date of Evaluation: 06/28/16 Time of Evaluation: 07:45 - Subjective Subjective: PGY-1 Medicine Progress Note for Dr. Cantu Patient seen and examined at bedside. No acute event overnight. Patient reports same pain in right hip and bilateral LEs. Physical Therapy working with patient this AM to get him to use cane with walking boot. He is tolerating diet and having regular BMs. Denies fevers/chills, chest pain, SOB, palpitations, headache, dizziness, shortness of breath, numbness/tingling, n/v/d. Objective - Vital Signs/Intake and Output Vital Signs (last 24 hours): Temp Pulse Resp BP Pulse Ox 98.2 F 68 20 105/63 98 06/28/16 09:27 06/28/16 09:27 06/28/16 09:27 06/28/16 09:27 06/28/16 09:27 - Medications Medications: Current Medications Acetaminophen (Tylenol 325mg Tab) 650 mg PO Q6 PRN PRN Reason: Pain, Mild (1-3) Last Admin: 06/28/16 11:03 Dose: 650 mg Carbamide Peroxide (Debrox Ear Drops) 1 ml AU BID [facility] Last Admin: 06/28/16 11:00 Dose: 1 drop Clotrimazole (Lotrimin 1%) 0 gm TOP BID [facility] Last Admin: 06/28/16 11:00 Dose: 1 applic Docusate Sodium (Colace) 100 mg PO BID [facility] Last Admin: 06/28/16 10:59 Dose: Not Given Famotidine (Pepcid) 20 mg PO BID [facility] Last Admin: 06/28/16 10:57 Dose: 20 mg Magnesium Oxide (Mag-Ox) 400 mg PO BID [facility] Last Admin: 06/28/16 10:58 Dose: 400 mg Polyethylene Glycol (Miralax) 17 gm PO Q2D [facility] Last Admin: 06/27/16 11:38 Dose: Not Given Silver Sulfadiazine (Silvadene 1% 20 Gm) 0 ea TOP Q12H [facility] Last Admin: 06/28/16 14:28 Dose: 1 applic Sodium Chloride (Sodium Chloride Tab) 1 gm PO DAILY@1330 [facility] Last Admin: 06/28/16 14:28 Dose: 1 gm Tamsulosin HCl (Flomax) 0.8 mg PO DAILY [facility] Last Admin: 06/28/16 11:00 Dose: 0.8 mg Tramadol HCl (Ultram) 25 mg PO TID PRN PRN Reason: Pain, moderate (4-7) Last Admin: 06/27/16 11:38 Dose: 25 mg - Labs Labs: 06/26/16 07:01 06/26/16 07:01 - Constitutional Appears: No Acute Distress - Head Exam Head Exam: ATRAUMATIC, NORMOCEPHALIC - Eye Exam Eye Exam: EOMI, Normal appearance Pupil Exam: PERRL - ENT Exam ENT Exam: Mucous Membranes Moist - Neck Exam Neck Exam: Normal Inspection - Respiratory Exam Respiratory Exam: Clear to Ausculation Bilateral, NORMAL BREATHING PATTERN - GI/Abdominal Exam GI & Abdominal Exam: Soft, Hernia, Normal Bowel Sounds. absent: Tenderness - Extremities Exam Extremities Exam: Normal Capillary Refill - Back Exam Back Exam: absent: CVA tenderness (L), CVA tenderness (R) - Neurological Exam Neurological Exam: Alert, Awake, CN II-XII Intact, Oriented x3 - Psychiatric Exam Psychiatric exam: Normal Affect, Normal Mood - Skin Skin Exam: Dry, Intact, Warm Assessment and Plan - Assessment and Plan (Free Text) Plan: Fracture of tibia, proximal, right, closed; pain management and physical therapy - 06/27: 8 weeks of immobilization and protected WB as per ortho xrays right knee show resolved area of sclerosis at presumed stress fracture right lateral tibial plateau (MRI contraindicated due to metallic implant in patella) PT notified - 06/25: ambulating with a walker -06/08- re-ordered PT eval - 06/08 - Stable - 05/31 - per ortho - Advance to 10% TTWB RLE, plan repeat xrays in 2 weeks and reassess, continue knee immobilizer, PT order updated - 05/29 - Cont to work with PT. Able to ambulate with walker, NWB on right LE. -05/27- cont current mgmt - 05/24 - continue with current management. - 05/20- ordered venous doppler right leg for swelling - results as above - 05/18- repeat xray with no significant change - 05/11- per ortho team: patient to remain non-weight bearing to right lower extremity - 05/09- right knee xrays ordered by orthopedics team- No acute fracture. Status post ORIF old patellar fracture No significant interval change compared to the prior examination Will follow up recommendations from orthopedics team - 05/05:Ortho Dr. Pino and Jayce NICOLE following- no orthopedic intervention indicated at this time, strict NWB, PT/OT - Impaction/insufficiency fracture, lateral aspect proximal tibia, non operative , treated with strict NWB and immobilization - At least 6 weeks old by imaging - Tylenol 650 mg PO Q6 PRN mild pain - Tramadol 25mg TID pRN - Daily physical therapy - Nonweight bearing on R leg - L knee x-ray: severe osteopenia. Sclerotic changes about the posterior proximal tibia may relate to a sclerotic healing response of a prior stress fracture here. no tibial plateau depressed fracture. The sclerosis is perceived on the prior 04/21 study; no interval pathology appreciated between 2 exams. If symptoms worsen consider MRI. 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 Gait Instability; will continue with PT/OT - 06/27: 8 weeks of immobilization and protected WB as per ortho xrays right knee show resolved area of sclerosis at presumed stress fracture right lateral tibial plateau (MRI contraindicated due to metallic implant in patella) PT notified - 06/25: ambulating with a walker -06/09: re-ordered PT eval for continued therapy - 06/02: complains of pain on plantar surface of foot - likely plantar fasciitis , will have PT work on it - Patient uses walker- NWB at this time RLE - not safe for discharge to residential - Chronic RLE pain (since admission) due to slippage of mechanical hardware in his leg from prior procedure - R knee immobilizer in place and patient on strict NWB status - Xray 04/03: superior migration of prosthesis. sclerosi about right acetabulum - daily physical therapy - PT 05/05: decline in transfers due to limitation from right hip and knee pain. patient still able to tolerate hallway ambulation, no episode of orthostatic hypotension post gait. recommending room/hallway ambulation w/ nursing for AM/ PM care or toileting. - PT 05/09: decline in function limited by persisting right groin/ hip and knee pain. patient still recommended for daily out of bed during am/pm care. cleared for ambulation in the room with standard walker non weight bearing right lower extremity - PT 05/10: mild decline in transfers due to pain in right knee and hip. NWB to RLE. Patient with episode of hypotension post ambulation- no syncope. - 05/16: discussed with PT. Patient function declining due to immobility. Patient needs to go from bed to chair. Patient should also be ambulating to the bathroom with assist. Patient becomes hypotensive with walking. - 05/17: patient assisted to chair. discussed with nursing the need for ambulation to and from bathroom with assistance as well as transfer from bed to chair Abdominal Pain resolved CT abd/pelvis with PO contrast: limited study, bowel containing left inguinal hernia without evidence of obstruction. Smaller fat and vessel containing right inguinal hernia without evidence of obstruction; anterior right aspect of the urinary bladderalso extends into hernia defect. Cholelithiasis. Moderate constipation. Enlarged prostate gland. Right hip arhtroplasty. Right protrusion acetabulum. Sclerosis involving osseous structures, possibly reactive (see full report). - 06/25: slight abdominal pain but no constipation and good bewl sounds. Monitor. - 06/09- no abdominal pain reported, moving bowels - 05/24: less abd pain, reports BMs - 05/22: continues to complain of straining, will give one time miralax dose - 05/21: restart colace 100mg BID as patient straining to have BM - patient with multiple soft stools- will stop miralax for now - patient has been complaining of abdominal pain since admission - Colace 100mg PO BID - Dulcolax every 3 days - Inguinal hernia with unobstructed bowel loop involvement; protruded 04/18 due to straining on toilet. - 05/03/16 B/L inguinal hernias reduced today without incidence - Abdominal US 04/01: Gallstones, no acute cholecystitis, no hydronephrosis. trace ascites (see full report) - Abd/pelv CT 03/11: mod b/l pleural effusions and assoc consolidations; tiny probably gallstones within the gallbladder; small to moderate hiatal hernia; R inguinal hernia which contains small loops of bowel, likely small bowel- no evidence of obstruction as oral contrast is noted within R colon. No definite free air, however evaluation for pneumoperitoneum is suboptimal. Moderate to severe constipation with questionable impaction. Prostate gland 4.1cm x 4.6cm. Urinary bladder appears unremarkable. Small amount of fluid within a right inguinal hernia. Sclerosis of right iliac wing. Extensive anasarca. BPH - Flomax 0.8 mg PO daily - Urology Dr. Hughes on board - will f/u with recs concerning inpatient TURP - 05/18: Pyridium 200 mg PO TIDPC- discontinued Leg swelling - 06/09: No changes - 05/23: will order left leg US to r/o DVT - negative for DVT or any other abnormalities - 05/20: venous doppler ordered - read as: No evidence of deep or superficial vein thrombosis of the right lower extremity with excellent venous flow. Normal valve function noted of the right side. Normal venous flow noted in the left common femoral vein. Facial rash - resembles seborrheic dermatitis, patient encouraged to moisturize - ESR 32 - CRP 1.51 - RA- negative - A&D ointment to face Orthostasis- Resolved - 05/21: IV fluids- NS at 100cc/h - stopped - 05/16: Per PT, patient becomes hypotensive with exertion. adding sodium chloride tablets 1g daily - 05/05: -Supine BP: 114/71, HR 75 -Sitting BP: 113/71, HR 90 -Standing BP: 116/72, HR 94 Anemia- resolved - 06/19: Hgb 11.5 - 06/12 - Hgb 10.4, improving - 05/30: Hgb trending up - 05/26: may have a component of Fe deficiency, will replete - 05/25: Hgb still low, will get labs with Iron panel tomorrow - 05/22: Hgb 8.7, repeated and was 9.5 - 05/15: hgb 11.0 - chronic - monitor with weekly labs Aneurysmal dilatation of ascending thoracic aorta; Currently 4.5 cm. Patient needs repeat Ct imaging every 6 months - last CT scan in 03/2016, should be monitored in September, Onychomycosis;chronic and improving - patient had aseptic debridement of toenails x 10 - clotrimazole cream to be applied to feet b/l BID - podiatry following Sacral decubitus- resolved - 05/17- sacrum examined- no sacral ulcers noted - 05/16: patient needs to go from bed to chair to prevent ulcers from re-forming - 04/19: exam revealed a previously healed decubitus ulcer of right buttocks. Sacral exam was clear. - Wound care following - recommending medihoney covered with bordered telfa dressing to right lower buttocks stage 2 pressure ulcer daily. - Pt is OOB to chair with help from PT daily - Order placed for turning patient Q2H History of Urinary Tract Infection - 06/25: No urinary complaints - 06/09: No urinary complaints - 05/20: ordered repeat urine culture for urinary frequency - no growth (Final) - 05/17: urine culture negative - 05/16: + nitrates, 4 RBC, occasional bacteria. - urine culture 05/03- no growth - UA 05/05: +nitrates, occasional bacteria Diarrhea- resolved - 06/09: no complaints of diarrhea, complaining of bleeding w/BMs- buttock wound , Silvadene top ordered - 05/22 - resolved - culture negative - 05/18: c. diff negative, no salmonella - 05/17: ova and parasites negative Hypokalemia- resolved - Monitor - Replete as needed Syncopal Episode x1- resolved - 05/04/16 CTA- negative for PE (underlying atelectasis new findings compared to the prior study 03/20/2016.) Prophylactic Measure - Labs weekly on Sunday - Lovenox 40mg SC daily - Pepcid 20mg PO BID - A and D ointment TOP Q*H - Patient is homeless. Used to stay with friend, but no longer welcome there. Goal is to walk with cane so he can go to a residential (will not qualify with a walker) - patient will need to work with PT frequently - right calf with dark skin lesion underneath knee immobilizer, wound care on board - applying medihoney Disposition - Reaching out to family in [facility] - no response from family per case management - Social Work is following up - Cannot be discharged to residential due to functional status - Continue to work with PT - No new changes to pt status or plan - Palliative care consulted - pt agrees to DNR/DNI- cont current medical mgmt, rec for Silvadene to buttock <Parker Cantu - Last Filed: 07/12/16 12:28> Objective - Vital Signs/Intake and Output Vital Signs (last 24 hours): Temp Pulse Resp BP Pulse Ox 98.3 F 82 20 102/64 96 07/12/16 09:22 05/03/17 09:22 07/12/16 09:22 07/12/16 09:22 07/12/16 09:22 Intake and Output: 07/12/16 07/12/16 06:59 18:59 Output Total 200 Balance -200 - Medications Medications: Current Medications Acetaminophen (Tylenol 325mg Tab) 650 mg PO Q6 PRN PRN Reason: Pain, Mild (1-3) Last Admin: 07/02/16 21:37 Dose: 650 mg Docusate Sodium (Colace) 100 mg PO BID [facility] Last Admin: 06/30/16 09:13 Dose: Not Given Enoxaparin Sodium (Lovenox) 40 mg SC DAILY [facility] Last Admin: 07/12/16 10:04 Dose: 40 mg Famotidine (Pepcid) 20 mg PO BID [facility] Last Admin: 07/12/16 10:04 Dose: 20 mg Ketoconazole (Nizoral) 0 gm TOP BID [facility] Last Admin: 07/12/16 10:04 Dose: 1 applic Loperamide HCl (Imodium) 2 mg PO QID PRN PRN Reason: Diarrhea Last Admin: 07/01/16 20:22 Dose: 2 mg Magnesium Oxide (Mag-Ox) 400 mg PO BID [facility] Last Admin: 07/12/16 10:04 Dose: 400 mg Polyethylene Glycol (Miralax) 17 gm PO Q2D [facility] Last Admin: 06/29/16 10:44 Dose: Not Given Sodium Chloride (Sodium Chloride Tab) 1 gm PO DAILY@1330 [facility] Last Admin: 07/11/16 14:32 Dose: 1 gm Tamsulosin HCl (Flomax) 0.8 mg PO DAILY [facility] Last Admin: 07/12/16 10:04 Dose: 0.8 mg Tramadol HCl (Ultram) 25 mg PO TID PRN PRN Reason: Pain, moderate (4-7) Last Admin: 07/10/16 09:21 Dose: 25 mg - Labs Labs: 07/10/16 12:53 07/10/16 09:22 Attending/Attestation - Attestation I have personally seen and examined this patient.: Yes I have fully participated in the care of the patient.: Yes I have reviewed all pertinent clinical information, including history, physical exam and plan: Yes Notes (Text): Patient seen and examined with the resident. Agree with the resident's evaluation, assessment and plan. BPH chronic Leg swelling Fracture of tibia, proximal, right, closed
[2016-06-29] MEDS: Silver Sulfadiazine 1% Cream (20 gm) TOP SCH ×2 (10:44→20:55)
[2016-06-29] MEDS: POLYETHYLENE GLYCOL 3350 17 GM/Dose PACKET PO SCH (10:44)
[2016-06-29] MEDS: Clotrimazole 1% Cream 15 GM TUBE TOP SCH ×2 (11:01→17:42)
[2016-06-29] MEDS: Tramadol 25 mg PO PRN (11:01)
[2016-06-29] MEDS: Magnesium Oxide 400 mg Tab UD PO SCH ×2 (11:01→17:42)
--- NOTE | 2016-06-29 14:16 | CP.PCM.PN ---
<Kwame Sears - Last Filed: 06/29/16 14:13> Subjective - Date & Time of Evaluation Date of Evaluation: 06/29/16 Time of Evaluation: 07:25 - Subjective Subjective: PGY-1 Medicine Progress Note for Dr. Cantu Patient seen and examined at bedside. No acute event overnight. Patient reports pain in right hip and bilateral LEs. He is mildly constipated with hard stools. He is tolerating diet. Denies fevers/chills, chest pain, SOB, palpitations, headache, dizziness, shortness of breath, numbness/tingling, n/v/ d. Objective - Vital Signs/Intake and Output Vital Signs (last 24 hours): Temp Pulse Resp BP Pulse Ox 97.4 F L 75 20 116/70 99 06/29/16 09:27 06/29/16 09:27 06/29/16 09:27 06/29/16 09:27 06/29/16 09:27 Intake and Output: 06/29/16 06/29/16 06:59 18:59 Intake Total 240 Output Total 125 Balance 115 - Medications Medications: Current Medications Acetaminophen (Tylenol 325mg Tab) 650 mg PO Q6 PRN PRN Reason: Pain, Mild (1-3) Last Admin: 06/29/16 10:46 Dose: 650 mg Carbamide Peroxide (Debrox Ear Drops) 1 ml AU BID PENDING SALE TO [facility] Last Admin: 06/29/16 11:02 Dose: 1 drop Clotrimazole (Lotrimin 1%) 0 gm TOP BID PENDING SALE TO [facility] Last Admin: 06/29/16 11:01 Dose: 1 applic Docusate Sodium (Colace) 100 mg PO BID PENDING SALE TO [facility] Last Admin: 06/29/16 10:44 Dose: Not Given Famotidine (Pepcid) 20 mg PO BID PENDING SALE TO [facility] Last Admin: 06/29/16 10:44 Dose: 20 mg Magnesium Oxide (Mag-Ox) 400 mg PO BID PENDING SALE TO [facility] Last Admin: 06/29/16 11:01 Dose: 400 mg Polyethylene Glycol (Miralax) 17 gm PO Q2D PENDING SALE TO [facility] Last Admin: 06/29/16 10:44 Dose: Not Given Silver Sulfadiazine (Silvadene 1% 20 Gm) 0 ea TOP Q12H PENDING SALE TO [facility] Last Admin: 06/29/16 10:44 Dose: 1 applic Sodium Chloride (Sodium Chloride Tab) 1 gm PO DAILY@1330 PENDING SALE TO [facility] Last Admin: 06/28/16 14:28 Dose: 1 gm Tamsulosin HCl (Flomax) 0.8 mg PO DAILY PENDING SALE TO [facility] Last Admin: 06/29/16 10:43 Dose: 0.8 mg Tramadol HCl (Ultram) 25 mg PO TID PRN PRN Reason: Pain, moderate (4-7) Last Admin: 06/29/16 11:01 Dose: 25 mg - Labs Labs: 06/26/16 07:01 06/26/16 07:01 - Constitutional Appears: No Acute Distress - Head Exam Head Exam: ATRAUMATIC, NORMOCEPHALIC - Eye Exam Eye Exam: EOMI, Normal appearance Pupil Exam: PERRL - ENT Exam ENT Exam: Mucous Membranes Moist - Neck Exam Neck Exam: Normal Inspection - Respiratory Exam Respiratory Exam: Clear to Ausculation Bilateral, NORMAL BREATHING PATTERN - Cardiovascular Exam Cardiovascular Exam: REGULAR RHYTHM, +S1, +S2 - GI/Abdominal Exam GI & Abdominal Exam: Soft, Normal Bowel Sounds. absent: Tenderness - Extremities Exam Extremities Exam: Normal Capillary Refill - Back Exam Back Exam: absent: CVA tenderness (L), CVA tenderness (R) - Neurological Exam Neurological Exam: Alert, Awake, CN II-XII Intact, Oriented x3 - Psychiatric Exam Psychiatric exam: Normal Affect, Normal Mood - Skin Skin Exam: Dry, Intact, Warm Additional comments: chronic changes in LEs Assessment and Plan - Assessment and Plan (Free Text) Plan: Constipation Colace 100 mg PO BID Miralax 17 gm PO Q2D Fracture of tibia, proximal, right, closed; pain management and physical therapy - 06/27: 8 weeks of immobilization and protected WB as per ortho xrays right knee show resolved area of sclerosis at presumed stress fracture right lateral tibial plateau (MRI contraindicated due to metallic implant in patella) PT notified - 06/25: ambulating with a walker -06/08- re-ordered PT eval - 06/08 - Stable - 05/31 - per ortho - Advance to 10% TTWB RLE, plan repeat xrays in 2 weeks and reassess, continue knee immobilizer, PT order updated - 05/29 - Cont to work with PT. Able to ambulate with walker, NWB on right LE. -05/27- cont current mgmt - 05/24 - continue with current management. - 05/20- ordered venous doppler right leg for swelling - results as above - 05/18- repeat xray with no significant change - 05/11- per ortho team: patient to remain non-weight bearing to right lower extremity - 05/09- right knee xrays ordered by orthopedics team- No acute fracture. Status post ORIF old patellar fracture No significant interval change compared to the prior examination Will follow up recommendations from orthopedics team - 05/05:Ortho Dr. Pino and Jayce NICOLE following- no orthopedic intervention indicated at this time, strict NWB, PT/OT - Impaction/insufficiency fracture, lateral aspect proximal tibia, non operative , treated with strict NWB and immobilization - At least 6 weeks old by imaging - Tylenol 650 mg PO Q6 PRN mild pain - Tramadol 25mg TID pRN - Daily physical therapy - Nonweight bearing on R leg - L knee x-ray: severe osteopenia. Sclerotic changes about the posterior proximal tibia may relate to a sclerotic healing response of a prior stress fracture here. no tibial plateau depressed fracture. The sclerosis is perceived on the prior 04/21 study; no interval pathology appreciated between 2 exams. If symptoms worsen consider MRI. 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 Gait Instability; will continue with PT/OT - 06/27: 8 weeks of immobilization and protected WB as per ortho xrays right knee show resolved area of sclerosis at presumed stress fracture right lateral tibial plateau (MRI contraindicated due to metallic implant in patella) PT notified - 06/25: ambulating with a walker -06/09: re-ordered PT eval for continued therapy - 06/02: complains of pain on plantar surface of foot - likely plantar fasciitis , will have PT work on it - Patient uses walker- NWB at this time RLE - not safe for discharge to snf - Chronic RLE pain (since admission) due to slippage of mechanical hardware in his leg from prior procedure - R knee immobilizer in place and patient on strict NWB status - Xray 04/03: superior migration of prosthesis. sclerosi about right acetabulum - daily physical therapy - PT 05/05: decline in transfers due to limitation from right hip and knee pain. patient still able to tolerate hallway ambulation, no episode of orthostatic hypotension post gait. recommending room/hallway ambulation w/ nursing for AM/ PM care or toileting. - PT 05/09: decline in function limited by persisting right groin/ hip and knee pain. patient still recommended for daily out of bed during am/pm care. cleared for ambulation in the room with standard walker non weight bearing right lower extremity - PT 05/10: mild decline in transfers due to pain in right knee and hip. NWB to RLE. Patient with episode of hypotension post ambulation- no syncope. - 05/16: discussed with PT. Patient function declining due to immobility. Patient needs to go from bed to chair. Patient should also be ambulating to the bathroom with assist. Patient becomes hypotensive with walking. - 05/17: patient assisted to chair. discussed with nursing the need for ambulation to and from bathroom with assistance as well as transfer from bed to chair Abdominal Pain resolved CT abd/pelvis with PO contrast: limited study, bowel containing left inguinal hernia without evidence of obstruction. Smaller fat and vessel containing right inguinal hernia without evidence of obstruction; anterior right aspect of the urinary bladderalso extends into hernia defect. Cholelithiasis. Moderate constipation. Enlarged prostate gland. Right hip arhtroplasty. Right protrusion acetabulum. Sclerosis involving osseous structures, possibly reactive (see full report). - 06/25: slight abdominal pain but no constipation and good bewl sounds. Monitor. - 06/09- no abdominal pain reported, moving bowels - 05/24: less abd pain, reports BMs - 05/22: continues to complain of straining, will give one time miralax dose - 05/21: restart colace 100mg BID as patient straining to have BM - patient with multiple soft stools- will stop miralax for now - patient has been complaining of abdominal pain since admission - Colace 100mg PO BID - Dulcolax every 3 days - Inguinal hernia with unobstructed bowel loop involvement; protruded 04/18 due to straining on toilet. - 05/03/16 B/L inguinal hernias reduced today without incidence - Abdominal US 04/01: Gallstones, no acute cholecystitis, no hydronephrosis. trace ascites (see full report) - Abd/pelv CT 03/11: mod b/l pleural effusions and assoc consolidations; tiny probably gallstones within the gallbladder; small to moderate hiatal hernia; R inguinal hernia which contains small loops of bowel, likely small bowel- no evidence of obstruction as oral contrast is noted within R colon. No definite free air, however evaluation for pneumoperitoneum is suboptimal. Moderate to severe constipation with questionable impaction. Prostate gland 4.1cm x 4.6cm. Urinary bladder appears unremarkable. Small amount of fluid within a right inguinal hernia. Sclerosis of right iliac wing. Extensive anasarca. BPH - Flomax 0.8 mg PO daily - Urology Dr. Hughes on board - will f/u with recs concerning inpatient TURP - 05/18: Pyridium 200 mg PO TIDPC- discontinued Leg swelling - 06/09: No changes - 05/23: will order left leg US to r/o DVT - negative for DVT or any other abnormalities - 05/20: venous doppler ordered - read as: No evidence of deep or superficial vein thrombosis of the right lower extremity with excellent venous flow. Normal valve function noted of the right side. Normal venous flow noted in the left common femoral vein. Facial rash - resembles seborrheic dermatitis, patient encouraged to moisturize - ESR 32 - CRP 1.51 - RA- negative - A&D ointment to face Orthostasis- Resolved - 05/21: IV fluids- NS at 100cc/h - stopped - 05/16: Per PT, patient becomes hypotensive with exertion. adding sodium chloride tablets 1g daily - 05/05: -Supine BP: 114/71, HR 75 -Sitting BP: 113/71, HR 90 -Standing BP: 116/72, HR 94 Anemia- resolved Hgb stable - 06/19: Hgb 11.5 - 06/12 - Hgb 10.4, improving - 05/30: Hgb trending up - 05/26: may have a component of Fe deficiency, will replete - 05/25: Hgb still low, will get labs with Iron panel tomorrow - 05/22: Hgb 8.7, repeated and was 9.5 - 05/15: hgb 11.0 - chronic - monitor with weekly labs Aneurysmal dilatation of ascending thoracic aorta; Currently 4.5 cm. Patient needs repeat Ct imaging every 6 months - last CT scan in 03/2016, should be monitored in September, Onychomycosis;chronic and improving - patient had aseptic debridement of toenails x 10 - clotrimazole cream to be applied to feet b/l BID - podiatry following Sacral decubitus- resolved - 05/17- sacrum examined- no sacral ulcers noted - 05/16: patient needs to go from bed to chair to prevent ulcers from re-forming - 04/19: exam revealed a previously healed decubitus ulcer of right buttocks. Sacral exam was clear. - Wound care following - recommending medihoney covered with bordered telfa dressing to right lower buttocks stage 2 pressure ulcer daily. - Pt is OOB to chair with help from PT daily - Order placed for turning patient Q2H History of Urinary Tract Infection - 06/25: No urinary complaints - 06/09: No urinary complaints - 05/20: ordered repeat urine culture for urinary frequency - no growth (Final) - 05/17: urine culture negative - 05/16: + nitrates, 4 RBC, occasional bacteria. - urine culture 05/03- no growth - UA 05/05: +nitrates, occasional bacteria Syncopal Episode x1- resolved - 05/04/16 CTA- negative for PE (underlying atelectasis new findings compared to the prior study 03/20/2016.) Prophylactic Measure - Labs weekly on Sunday - Lovenox 40mg SC daily - Pepcid 20mg PO BID - A and D ointment TOP Q*H - Patient is homeless. Used to stay with friend, but no longer welcome there. Goal is to walk with cane so he can go to a snf (will not qualify with a walker) - patient will need to work with PT frequently - right calf with dark skin lesion underneath knee immobilizer, wound care on board - applying medihoney Disposition - Reaching out to family in [facility] - no response from family per case management - Social Work is following up - Cannot be discharged to snf due to functional status - Continue to work with PT - No new changes to pt status or plan - Palliative care consulted - pt agrees to DNR/DNI- cont current medical mgmt, rec for Silvadene to buttock <Parker Cantu - Last Filed: 07/12/16 12:29> Objective - Vital Signs/Intake and Output Vital Signs (last 24 hours): Temp Pulse Resp BP Pulse Ox 98.3 F 82 20 102/64 96 07/12/16 09:22 07/12/16 09:22 07/12/16 09:22 07/12/16 09:22 07/12/16 09:22 Intake and Output: 07/12/16 07/12/16 06:59 18:59 Output Total 200 Balance -200 - Medications Medications: Current Medications Acetaminophen (Tylenol 325mg Tab) 650 mg PO Q6 PRN PRN Reason: Pain, Mild (1-3) Last Admin: 07/02/16 21:37 Dose: 650 mg Docusate Sodium (Colace) 100 mg PO BID PENDING SALE TO [facility] Last Admin: 06/30/16 09:13 Dose: Not Given Enoxaparin Sodium (Lovenox) 40 mg SC DAILY PENDING SALE TO [facility] Last Admin: 07/12/16 10:04 Dose: 40 mg Famotidine (Pepcid) 20 mg PO BID PENDING SALE [facility] Last Admin: 07/12/16 10:04 Dose: 20 mg Ketoconazole (Nizoral) 0 gm TOP BID PENDING SALE TO [facility] Last Admin: 07/12/16 10:04 Dose: 1 applic Loperamide HCl (Imodium) 2 mg PO QID PRN PRN Reason: Diarrhea Last Admin: 07/01/16 20:22 Dose: 2 mg Magnesium Oxide (Mag-Ox) 400 mg PO BID PENDING SALE TO [facility] Last Admin: 07/12/16 10:04 Dose: 400 mg Polyethylene Glycol (Miralax) 17 gm PO Q2D PENDING SALE TO [facility] Last Admin: 06/29/16 10:44 Dose: Not Given Sodium Chloride (Sodium Chloride Tab) 1 gm PO DAILY@1330 PENDING SALE TO [facility] Last Admin: 07/11/16 14:32 Dose: 1 gm Tamsulosin HCl (Flomax) 0.8 mg PO DAILY PENDING SALE TO [facility] Last Admin: 07/12/16 10:04 Dose: 0.8 mg Tramadol HCl (Ultram) 25 mg PO TID PRN PRN Reason: Pain, moderate (4-7) Last Admin: 07/10/16 09:21 Dose: 25 mg - Labs Labs: 07/10/16 12:53 07/10/16 09:22 Attending/Attestation - Attestation I have personally seen and examined this patient.: Yes I have fully participated in the care of the patient.: Yes I have reviewed all pertinent clinical information, including history, physical exam and plan: Yes Notes (Text): Patient seen and examined with the resident. Agree with the resident's evaluation, assessment and plan. BPH chronic Leg swelling Fracture of tibia, proximal, right, closed
[2016-06-30] MEDS: Magnesium Oxide 400 mg Tab UD PO SCH ×2 (09:40→17:53)
[2016-06-30] MEDS: Silver Sulfadiazine 1% Cream (20 gm) TOP SCH ×2 (09:41→20:22)
[2016-06-30] MEDS: Clotrimazole 1% Cream 15 GM TUBE TOP SCH ×2 (09:42→20:22)
--- NOTE | 2016-06-30 14:01 | CP.PCM.PN ---
<Kwame Sears - Last Filed: 06/30/16 13:58> Subjective - Date & Time of Evaluation Date of Evaluation: 06/30/16 Time of Evaluation: 09:00 - Subjective Subjective: PGY-1 Medicine Progress Note for Dr. Wiggins Patient seen and examined at bedside. No acute event overnight. Patient reports same pain in right hip and bilateral LEs. No other complaints today. Denies fevers/chills, chest pain, SOB, palpitations, headache, dizziness, shortness of breath, numbness/tingling, n/v/d. Objective - Vital Signs/Intake and Output Vital Signs (last 24 hours): Temp Pulse Resp BP Pulse Ox 97.3 F L 70 20 116/67 98 06/30/16 08:36 06/30/16 08:36 06/30/16 08:36 06/30/16 08:36 06/30/16 08:36 Intake and Output: 06/30/16 06/30/16 06:59 18:59 Output Total 550 Balance -550 - Medications Medications: Current Medications Acetaminophen (Tylenol 325mg Tab) 650 mg PO Q6 PRN PRN Reason: Pain, Mild (1-3) Last Admin: 06/29/16 10:46 Dose: 650 mg Carbamide Peroxide (Debrox Ear Drops) 1 ml AU BID [facility] Last Admin: 06/30/16 09:41 Dose: 5 drop Clotrimazole (Lotrimin 1%) 0 gm TOP BID [facility] Last Admin: 06/30/16 09:42 Dose: 1 appl Docusate Sodium (Colace) 100 mg PO BID [facility] Last Admin: 06/30/16 09:40 Dose: 100 mg Famotidine (Pepcid) 20 mg PO BID [facility] Last Admin: 06/30/16 09:40 Dose: 20 mg Magnesium Oxide (Mag-Ox) 400 mg PO BID [facility] Last Admin: 06/30/16 09:40 Dose: 400 mg Polyethylene Glycol (Miralax) 17 gm PO Q2D [facility] Last Admin: 06/29/16 10:44 Dose: Not Given Silver Sulfadiazine (Silvadene 1% 20 Gm) 0 ea TOP Q12H [facility] Last Admin: 06/30/16 09:41 Dose: 1 applic Sodium Chloride (Sodium Chloride Tab) 1 gm PO DAILY@1330 [facility] Last Admin: 06/30/16 12:57 Dose: 1 gm Tamsulosin HCl (Flomax) 0.8 mg PO DAILY [facility] Last Admin: 06/30/16 09:41 Dose: 0.8 mg Tramadol HCl (Ultram) 25 mg PO TID PRN PRN Reason: Pain, moderate (4-7) Last Admin: 06/29/16 11:01 Dose: 25 mg - Labs Labs: 06/26/16 07:01 06/26/16 07:01 - Constitutional Appears: No Acute Distress - Head Exam Head Exam: ATRAUMATIC, NORMOCEPHALIC - Eye Exam Eye Exam: EOMI, Normal appearance Pupil Exam: PERRL - ENT Exam ENT Exam: Mucous Membranes Moist - Neck Exam Neck Exam: Normal Inspection - Respiratory Exam Respiratory Exam: Clear to Ausculation Bilateral, NORMAL BREATHING PATTERN - Cardiovascular Exam Cardiovascular Exam: RRR, +S1, +S2 - GI/Abdominal Exam GI & Abdominal Exam: Soft, Normal Bowel Sounds. absent: Tenderness - Extremities Exam Extremities Exam: Tenderness - Back Exam Back Exam: CVA tenderness (L), CVA tenderness (R) - Neurological Exam Neurological Exam: Alert, Awake, CN II-XII Intact, Oriented x3 - Psychiatric Exam Psychiatric exam: Normal Affect, Normal Mood - Skin Skin Exam: Dry, Intact, Warm Additional comments: chronic skin changes Assessment and Plan - Assessment and Plan (Free Text) Plan: Constipation Colace 100 mg PO BID Miralax 17 gm PO Q2D Fracture of tibia, proximal, right, closed; pain management and physical therapy - 06/27: 8 weeks of immobilization and protected WB as per ortho xrays right knee show resolved area of sclerosis at presumed stress fracture right lateral tibial plateau (MRI contraindicated due to metallic implant in patella) PT notified - 06/25: ambulating with a walker -06/08- re-ordered PT eval - 06/08 - Stable - 05/31 - per ortho - Advance to 10% TTWB RLE, plan repeat xrays in 2 weeks and reassess, continue knee immobilizer, PT order updated - 05/29 - Cont to work with PT. Able to ambulate with walker, NWB on right LE. -05/27- cont current mgmt - 05/24 - continue with current management. - 05/20- ordered venous doppler right leg for swelling - results as above - 05/18- repeat xray with no significant change - 05/11- per ortho team: patient to remain non-weight bearing to right lower extremity - 05/09- right knee xrays ordered by orthopedics team- No acute fracture. Status post ORIF old patellar fracture No significant interval change compared to the prior examination Will follow up recommendations from orthopedics team - 05/05:Ortho Dr. Pino and Jayce West PA following- no orthopedic intervention indicated at this time, strict NWB, PT/OT - Impaction/insufficiency fracture, lateral aspect proximal tibia, non operative , treated with strict NWB and immobilization - At least 6 weeks old by imaging - Tylenol 650 mg PO Q6 PRN mild pain - Tramadol 25mg TID pRN - Daily physical therapy - Nonweight bearing on R leg - L knee x-ray: severe osteopenia. Sclerotic changes about the posterior proximal tibia may relate to a sclerotic healing response of a prior stress fracture here. no tibial plateau depressed fracture. The sclerosis is perceived on the prior 04/21 study; no interval pathology appreciated between 2 exams. If symptoms worsen consider MRI. 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 Gait Instability; will continue with PT/OT - 06/27: 8 weeks of immobilization and protected WB as per ortho xrays right knee show resolved area of sclerosis at presumed stress fracture right lateral tibial plateau (MRI contraindicated due to metallic implant in patella) PT notified - 06/25: ambulating with a walker -06/09: re-ordered PT eval for continued therapy - 06/02: complains of pain on plantar surface of foot - likely plantar fasciitis , will have PT work on it - Patient uses walker- NWB at this time RLE - not safe for discharge to [facility] - Chronic RLE pain (since admission) due to slippage of mechanical hardware in his leg from prior procedure - R knee immobilizer in place and patient on strict NWB status - Xray 04/03: superior migration of prosthesis. sclerosi about right acetabulum - daily physical therapy - PT 05/05: decline in transfers due to limitation from right hip and knee pain. patient still able to tolerate hallway ambulation, no episode of orthostatic hypotension post gait. recommending room/hallway ambulation w/ nursing for AM/ PM care or toileting. - PT 05/09: decline in function limited by persisting right groin/ hip and knee pain. patient still recommended for daily out of bed during am/pm care. cleared for ambulation in the room with standard walker non weight bearing right lower extremity - PT 05/10: mild decline in transfers due to pain in right knee and hip. NWB to RLE. Patient with episode of hypotension post ambulation- no syncope. - 05/16: discussed with PT. Patient function declining due to immobility. Patient needs to go from bed to chair. Patient should also be ambulating to the bathroom with assist. Patient becomes hypotensive with walking. - 05/17: patient assisted to chair. discussed with nursing the need for ambulation to and from bathroom with assistance as well as transfer from bed to chair Abdominal Pain resolved CT abd/pelvis with PO contrast: limited study, bowel containing left inguinal hernia without evidence of obstruction. Smaller fat and vessel containing right inguinal hernia without evidence of obstruction; anterior right aspect of the urinary bladderalso extends into hernia defect. Cholelithiasis. Moderate constipation. Enlarged prostate gland. Right hip arhtroplasty. Right protrusion acetabulum. Sclerosis involving osseous structures, possibly reactive (see full report). - 06/25: slight abdominal pain but no constipation and good bewl sounds. Monitor. - 06/09- no abdominal pain reported, moving bowels - 05/24: less abd pain, reports BMs - 05/22: continues to complain of straining, will give one time miralax dose - 05/21: restart colace 100mg BID as patient straining to have BM - patient with multiple soft stools- will stop miralax for now - patient has been complaining of abdominal pain since admission - Colace 100mg PO BID - Dulcolax every 3 days - Inguinal hernia with unobstructed bowel loop involvement; protruded 04/18 due to straining on toilet. - 05/03/16 B/L inguinal hernias reduced today without incidence - Abdominal US 04/01: Gallstones, no acute cholecystitis, no hydronephrosis. trace ascites (see full report) - Abd/pelv CT 03/11: mod b/l pleural effusions and assoc consolidations; tiny probably gallstones within the gallbladder; small to moderate hiatal hernia; R inguinal hernia which contains small loops of bowel, likely small bowel- no evidence of obstruction as oral contrast is noted within R colon. No definite free air, however evaluation for pneumoperitoneum is suboptimal. Moderate to severe constipation with questionable impaction. Prostate gland 4.1cm x 4.6cm. Urinary bladder appears unremarkable. Small amount of fluid within a right inguinal hernia. Sclerosis of right iliac wing. Extensive anasarca. BPH - Flomax 0.8 mg PO daily - Urology Dr. Hughes on board - will f/u with recs concerning inpatient TURP - 05/18: Pyridium 200 mg PO TIDPC- discontinued Leg swelling - 06/09: No changes - 05/23: will order left leg US to r/o DVT - negative for DVT or any other abnormalities - 05/20: venous doppler ordered - read as: No evidence of deep or superficial vein thrombosis of the right lower extremity with excellent venous flow. Normal valve function noted of the right side. Normal venous flow noted in the left common femoral vein. Facial rash - resembles seborrheic dermatitis, patient encouraged to moisturize - ESR 32 - CRP 1.51 - RA- negative - A&D ointment to face Orthostasis- Resolved - 05/21: IV fluids- NS at 100cc/h - stopped - 05/16: Per PT, patient becomes hypotensive with exertion. adding sodium chloride tablets 1g daily - 05/05: -Supine BP: 114/71, HR 75 -Sitting BP: 113/71, HR 90 -Standing BP: 116/72, HR 94 Anemia- resolved Hgb stable - 06/19: Hgb 11.5 - 06/12 - Hgb 10.4, improving - 05/30: Hgb trending up - 05/26: may have a component of Fe deficiency, will replete - 05/25: Hgb still low, will get labs with Iron panel tomorrow - 05/22: Hgb 8.7, repeated and was 9.5 - 05/15: hgb 11.0 - chronic - monitor with weekly labs Aneurysmal dilatation of ascending thoracic aorta; Currently 4.5 cm. Patient needs repeat Ct imaging every 6 months - last CT scan in 03/2016, should be monitored in September, Onychomycosis;chronic and improving - patient had aseptic debridement of toenails x 10 - clotrimazole cream to be applied to feet b/l BID - podiatry following Sacral decubitus- resolved - 05/17- sacrum examined- no sacral ulcers noted - 05/16: patient needs to go from bed to chair to prevent ulcers from re-forming - 04/19: exam revealed a previously healed decubitus ulcer of right buttocks. Sacral exam was clear. - Wound care following - recommending medihoney covered with bordered telfa dressing to right lower buttocks stage 2 pressure ulcer daily. - Pt is OOB to chair with help from PT daily - Order placed for turning patient Q2H History of Urinary Tract Infection - 06/25: No urinary complaints - 06/09: No urinary complaints - 05/20: ordered repeat urine culture for urinary frequency - no growth (Final) - 05/17: urine culture negative - 05/16: + nitrates, 4 RBC, occasional bacteria. - urine culture 05/03- no growth - UA 05/05: +nitrates, occasional bacteria Syncopal Episode x1- resolved - 05/04/16 CTA- negative for PE (underlying atelectasis new findings compared to the prior study 03/20/2016.) Prophylactic Measure - Labs weekly on Sunday - Lovenox 40mg SC daily - Pepcid 20mg PO BID - A and D ointment TOP Q*H - Patient is homeless. Used to stay with friend, but no longer welcome there. Goal is to walk with cane so he can go to a [facility] (will not qualify with a walker) - patient will need to work with PT frequently - right calf with dark skin lesion underneath knee immobilizer, wound care on board - applying medihoney Disposition - Reaching out to family in [facility] - no response from family per case management - Social Work is following up - Cannot be discharged to [facility] due to functional status - Continue to work with PT - No new changes to pt status or plan - Palliative care consulted - pt agrees to DNR/DNI- cont current medical mgmt, rec for Silvadene to buttock <Jose Wiggins - Last Filed: 06/30/16 14:55> Objective - Vital Signs/Intake and Output Vital Signs (last 24 hours): Temp Pulse Resp BP Pulse Ox 97.3 F L 70 20 116/67 98 06/30/16 08:36 06/30/16 08:36 06/30/16 08:36 06/30/16 08:36 06/30/16 08:36 Intake and Output: 06/30/16 06/30/16 06:59 18:59 Output Total 550 Balance -550 - Medications Medications: Current Medications Acetaminophen (Tylenol 325mg Tab) 650 mg PO Q6 PRN PRN Reason: Pain, Mild (1-3) Last Admin: 06/29/16 10:46 Dose: 650 mg Carbamide Peroxide (Debrox Ear Drops) 1 ml AU BID [facility] Last Admin: 06/30/16 09:41 Dose: 5 drop Clotrimazole (Lotrimin 1%) 0 gm TOP BID [facility] Last Admin: 06/30/16 09:42 Dose: 1 appl Docusate Sodium (Colace) 100 mg PO BID [facility] Last Admin: 06/30/16 09:40 Dose: 100 mg Famotidine (Pepcid) 20 mg PO BID [facility] Last Admin: 06/30/16 09:40 Dose: 20 mg Magnesium Oxide (Mag-Ox) 400 mg PO BID [facility] Last Admin: 06/30/16 09:40 Dose: 400 mg Polyethylene Glycol (Miralax) 17 gm PO Q2D [facility] Last Admin: 06/29/16 10:44 Dose: Not Given Silver Sulfadiazine (Silvadene 1% 20 Gm) 0 ea TOP Q12H [facility] Last Admin: 06/30/16 09:41 Dose: 1 applic Sodium Chloride (Sodium Chloride Tab) 1 gm PO DAILY@1330 [facility] Last Admin: 06/30/16 12:57 Dose: 1 gm Tamsulosin HCl (Flomax) 0.8 mg PO DAILY [facility] Last Admin: 06/30/16 09:41 Dose: 0.8 mg Tramadol HCl (Ultram) 25 mg PO TID PRN PRN Reason: Pain, moderate (4-7) Last Admin: 06/29/16 11:01 Dose: 25 mg - Labs Labs: 06/26/16 07:01 06/26/16 07:01 Attending/Attestation - Attestation I have personally seen and examined this patient.: Yes I have fully participated in the care of the patient.: Yes I have reviewed all pertinent clinical information, including history, physical exam and plan: Yes Notes (Text): 06/30/16 14:53 Patient was seen and examined at bedside with the resident Patient complains of diarrhea. We will hold Colace and MiraLAX. We will start Imodium as needed. Patient also complains of right lower extremity pain. The pain is chronic. Likely secondary to displaced prosthesis. We will continue oral pain medication as needed. Patient also continue with physical therapy daily. Discharge planning when patient is physically stronger and deemed safe to be discharged. Discussed the plan of care with the resident and agree with the above history and physical and assessment/plan by the resident with the necessary amendments as stated above.
--- NOTE | 2016-06-30 14:15 | CP.PCM.PN ---
Subjective - Date & Time of Evaluation Date of Evaluation: 06/30/16 Time of Evaluation: 14:12 - Subjective Subjective: Patient in bed. Complaining of knee pain since he has been moving it more. No new complaints. Objective - Vital Signs/Intake and Output Vital Signs (last 24 hours): Temp Pulse Resp BP Pulse Ox 97.3 F L 70 20 116/67 98 06/30/16 08:36 06/30/16 08:36 06/30/16 08:36 06/30/16 08:36 06/30/16 08:36 Intake and Output: 06/30/16 06/30/16 06:59 18:59 Output Total 550 Balance -550 - Medications Medications: Current Medications Acetaminophen (Tylenol 325mg Tab) 650 mg PO Q6 PRN PRN Reason: Pain, Mild (1-3) Last Admin: 06/29/16 10:46 Dose: 650 mg Carbamide Peroxide (Debrox Ear Drops) 1 ml AU BID [facility] Last Admin: 06/30/16 09:41 Dose: 5 drop Clotrimazole (Lotrimin 1%) 0 gm TOP BID [facility] Last Admin: 06/30/16 09:42 Dose: 1 appl Docusate Sodium (Colace) 100 mg PO BID [facility] Last Admin: 06/30/16 09:40 Dose: 100 mg Famotidine (Pepcid) 20 mg PO BID [facility] Last Admin: 06/30/16 09:40 Dose: 20 mg Magnesium Oxide (Mag-Ox) 400 mg PO BID [facility] Last Admin: 06/30/16 09:40 Dose: 400 mg Polyethylene Glycol (Miralax) 17 gm PO Q2D [facility] Last Admin: 06/29/16 10:44 Dose: Not Given Silver Sulfadiazine (Silvadene 1% 20 Gm) 0 ea TOP Q12H [facility] Last Admin: 06/30/16 09:41 Dose: 1 applic Sodium Chloride (Sodium Chloride Tab) 1 gm PO DAILY@1330 [facility] Last Admin: 06/30/16 12:57 Dose: 1 gm Tamsulosin HCl (Flomax) 0.8 mg PO DAILY [facility] Last Admin: 06/30/16 09:41 Dose: 0.8 mg Tramadol HCl (Ultram) 25 mg PO TID PRN PRN Reason: Pain, moderate (4-7) Last Admin: 06/29/16 11:01 Dose: 25 mg - Labs Labs: 06/26/16 07:01 06/26/16 07:01 - Constitutional Appears: Well, No Acute Distress - Respiratory Exam Respiratory Exam: NORMAL BREATHING PATTERN - Cardiovascular Exam Additional comments: +DP pulse calves soft NT neg homans - Extremities Exam Additional comments: Instructed pt on short arc quads x 10 with assistance. Unable to complete without assistance, SLR as well. Instructed again on SLR with knee extended x 10. Advised patient to attempt this, quad sets, knee ROM while in bed several times daily. knee ROM 0-45 degrees passively, improving. - Neurological Exam Neurological Exam: Alert, Awake, Oriented x3 Additional comments: Sensation intact - Psychiatric Exam Psychiatric exam: Normal Affect, Normal Mood - Skin Skin Exam: Dry, Normal Color, Warm Assessment and Plan (1) Acetabular protrusion Assessment & Plan: stable Status: Acute (2) Fracture of tibia, proximal, right, closed Assessment & Plan: healed progressive WB Needs PT/OT for strengthening and ambulation training daily Encourage OOB VTE proph d/w Dr. Pino, agrees with above Status: Chronic
[2016-06-30] MEDS: Tramadol 25 mg PO PRN (17:51)
--- NOTE | 2016-07-01 01:51 | CP.PCM.PN ---
<Sadia Dior - Last Filed: 07/01/16 01:46> Subjective - Date & Time of Evaluation Date of Evaluation: 07/01/16 Time of Evaluation: 01:46 - Subjective Subjective: Internal medicine progress note for Hospitalist service- Sadia Dior, PGY-1 Pt S & E at bedside. Pt reports continued RLE pain/discomfort, diarrhea, chills. Denies N/V/F, SOB, CP, abdominal pain. Is tolerating diet, urinating ok, sleeping ok. Objective - Vital Signs/Intake and Output Vital Signs (last 24 hours): Temp Pulse Resp BP Pulse Ox 97.6 F 73 18 114/73 100 06/30/16 23:39 06/30/16 23:39 06/30/16 23:39 06/30/16 23:39 06/30/16 23:39 Intake and Output: 06/30/16 07/01/16 18:59 06:59 Intake Total 400 Output Total 100 Balance 400 -100 - Medications Medications: Current Medications Acetaminophen (Tylenol 325mg Tab) 650 mg PO Q6 PRN PRN Reason: Pain, Mild (1-3) Last Admin: 06/29/16 10:46 Dose: 650 mg Carbamide Peroxide (Debrox Ear Drops) 1 ml AU BID [facility] Last Admin: 06/30/16 17:48 Dose: 5 drop Clotrimazole (Lotrimin 1%) 0 gm TOP BID [facility] Last Admin: 06/30/16 20:22 Dose: 1 appl Docusate Sodium (Colace) 100 mg PO BID [facility] Last Admin: 06/30/16 09:13 Dose: Not Given Enoxaparin Sodium (Lovenox) 40 mg SC DAILY [facility] Famotidine (Pepcid) 20 mg PO BID [facility] Last Admin: 06/30/16 17:54 Dose: 20 mg Loperamide HCl (Imodium) 2 mg PO QID PRN PRN Reason: Diarrhea Last Admin: 06/30/16 17:54 Dose: 2 mg Magnesium Oxide (Mag-Ox) 400 mg PO BID [facility] Last Admin: 06/30/16 17:53 Dose: 400 mg Polyethylene Glycol (Miralax) 17 gm PO Q2D [facility] Last Admin: 06/29/16 10:44 Dose: Not Given Silver Sulfadiazine (Silvadene 1% 20 Gm) 0 ea TOP Q12H [facility] Last Admin: 06/30/16 20:22 Dose: 1 applic Sodium Chloride (Sodium Chloride Tab) 1 gm PO DAILY@1330 [facility] Last Admin: 06/30/16 12:57 Dose: 1 gm Tamsulosin HCl (Flomax) 0.8 mg PO DAILY [facility] Last Admin: 06/30/16 09:41 Dose: 0.8 mg Tramadol HCl (Ultram) 25 mg PO TID PRN PRN Reason: Pain, moderate (4-7) Last Admin: 06/30/16 17:51 Dose: 25 mg - Labs Labs: 06/26/16 07:01 06/26/16 07:01 - Constitutional Appears: Non-toxic, No Acute Distress - Head Exam Head Exam: ATRAUMATIC, NORMAL INSPECTION, NORMOCEPHALIC - Eye Exam Eye Exam: EOMI, Normal appearance, PERRL Pupil Exam: NORMAL ACCOMODATION, PERRL - ENT Exam ENT Exam: Mucous Membranes Moist, Normal Exam - Neck Exam Neck Exam: Full ROM, Normal Inspection. absent: Lymphadenopathy - Respiratory Exam Respiratory Exam: Clear to Ausculation Bilateral, NORMAL BREATHING PATTERN - Cardiovascular Exam Cardiovascular Exam: REGULAR RHYTHM, +S1, +S2. absent: Murmur - GI/Abdominal Exam GI & Abdominal Exam: Soft, Normal Bowel Sounds. absent: Tenderness - Extremities Exam Extremities Exam: Normal Inspection, Tenderness (over right lower extremity) - Neurological Exam Neurological Exam: Alert, Awake, Oriented x3 - Psychiatric Exam Psychiatric exam: Normal Affect, Normal Mood - Skin Skin Exam: Dry, Intact, Normal Color, Warm Assessment and Plan - Assessment and Plan (Free Text) Assessment: Diarrhea Imodium PRN Monitor Constipation- resolved Colace 100 mg PO BID Miralax 17 gm PO Q2D- d/c'd Fracture of tibia, proximal, right, closed; pain management and physical therapy -07/01: Ortho saw pt w/recs for progressive WB, PT/OT for strengthening and ambulation training daily, Encourage OOB VTE proph - 06/27: 8 weeks of immobilization and protected WB as per ortho xrays right knee show resolved area of sclerosis at presumed stress fracture right lateral tibial plateau (MRI contraindicated due to metallic implant in patella) PT notified - 06/25: ambulating with a walker -06/08- re-ordered PT eval - 06/08 - Stable - 05/31 - per ortho - Advance to 10% TTWB RLE, plan repeat xrays in 2 weeks and reassess, continue knee immobilizer, PT order updated - 05/29 - Cont to work with PT. Able to ambulate with walker, NWB on right LE. -05/27- cont current mgmt - 05/24 - continue with current management. - 05/20- ordered venous doppler right leg for swelling - results as above - 05/18- repeat xray with no significant change - 05/11- per ortho team: patient to remain non-weight bearing to right lower extremity - 05/09- right knee xrays ordered by orthopedics team- No acute fracture. Status post ORIF old patellar fracture No significant interval change compared to the prior examination Will follow up recommendations from orthopedics team - 05/05:Ortho Dr. Pino and Jayce West PA following- no orthopedic intervention indicated at this time, strict NWB, PT/OT - Impaction/insufficiency fracture, lateral aspect proximal tibia, non operative , treated with strict NWB and immobilization - At least 6 weeks old by imaging - Tylenol 650 mg PO Q6 PRN mild pain - Tramadol 25mg TID pRN - Daily physical therapy - Nonweight bearing on R leg - L knee x-ray: severe osteopenia. Sclerotic changes about the posterior proximal tibia may relate to a sclerotic healing response of a prior stress fracture here. no tibial plateau depressed fracture. The sclerosis is perceived on the prior 04/21 study; no interval pathology appreciated between 2 exams. If symptoms worsen consider MRI. 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 Gait Instability; will continue with PT/OT - 06/27: 8 weeks of immobilization and protected WB as per ortho xrays right knee show resolved area of sclerosis at presumed stress fracture right lateral tibial plateau (MRI contraindicated due to metallic implant in patella) PT notified - 06/25: ambulating with a walker -06/09: re-ordered PT eval for continued therapy - 06/02: complains of pain on plantar surface of foot - likely plantar fasciitis , will have PT work on it - Patient uses walker- NWB at this time RLE - not safe for discharge to [facility] - Chronic RLE pain (since admission) due to slippage of mechanical hardware in his leg from prior procedure - R knee immobilizer in place and patient on strict NWB status - Xray 04/03: superior migration of prosthesis. sclerosi about right acetabulum - daily physical therapy - PT 05/05: decline in transfers due to limitation from right hip and knee pain. patient still able to tolerate hallway ambulation, no episode of orthostatic hypotension post gait. recommending room/hallway ambulation w/ nursing for AM/ PM care or toileting. - PT 05/09: decline in function limited by persisting right groin/ hip and knee pain. patient still recommended for daily out of bed during am/pm care. cleared for ambulation in the room with standard walker non weight bearing right lower extremity - PT 05/10: mild decline in transfers due to pain in right knee and hip. NWB to RLE. Patient with episode of hypotension post ambulation- no syncope. - 05/16: discussed with PT. Patient function declining due to immobility. Patient needs to go from bed to chair. Patient should also be ambulating to the bathroom with assist. Patient becomes hypotensive with walking. - 05/17: patient assisted to chair. discussed with nursing the need for ambulation to and from bathroom with assistance as well as transfer from bed to chair Abdominal Pain-resolved CT abd/pelvis with PO contrast: limited study, bowel containing left inguinal hernia without evidence of obstruction. Smaller fat and vessel containing right inguinal hernia without evidence of obstruction; anterior right aspect of the urinary bladderalso extends into hernia defect. Cholelithiasis. Moderate constipation. Enlarged prostate gland. Right hip arhtroplasty. Right protrusion acetabulum. Sclerosis involving osseous structures, possibly reactive (see full report). - 06/25: slight abdominal pain but no constipation and good bewl sounds. Monitor. - 06/09- no abdominal pain reported, moving bowels - 05/24: less abd pain, reports BMs - 05/22: continues to complain of straining, will give one time miralax dose - 05/21: restart colace 100mg BID as patient straining to have BM - patient with multiple soft stools- will stop miralax for now - patient has been complaining of abdominal pain since admission - Colace 100mg PO BID - Dulcolax every 3 days - Inguinal hernia with unobstructed bowel loop involvement; protruded 04/18 due to straining on toilet. - 05/03/16 B/L inguinal hernias reduced today without incidence - Abdominal US 04/01: Gallstones, no acute cholecystitis, no hydronephrosis. trace ascites (see full report) - Abd/pelv CT 03/11: mod b/l pleural effusions and assoc consolidations; tiny probably gallstones within the gallbladder; small to moderate hiatal hernia; R inguinal hernia which contains small loops of bowel, likely small bowel- no evidence of obstruction as oral contrast is noted within R colon. No definite free air, however evaluation for pneumoperitoneum is suboptimal. Moderate to severe constipation with questionable impaction. Prostate gland 4.1cm x 4.6cm. Urinary bladder appears unremarkable. Small amount of fluid within a right inguinal hernia. Sclerosis of right iliac wing. Extensive anasarca. BPH - Flomax 0.8 mg PO daily - Urology Dr. Hughes on board - will f/u with recs concerning inpatient TURP - 05/18: Pyridium 200 mg PO TIDPC- discontinued Leg swelling - 06/09: No changes - 05/23: will order left leg US to r/o DVT - negative for DVT or any other abnormalities - 05/20: venous doppler ordered - read as: No evidence of deep or superficial vein thrombosis of the right lower extremity with excellent venous flow. Normal valve function noted of the right side. Normal venous flow noted in the left common femoral vein. Facial rash - resembles seborrheic dermatitis, patient encouraged to moisturize - ESR 32 - CRP 1.51 - RA- negative - A&D ointment to face Orthostasis- Resolved - 05/21: IV fluids- NS at 100cc/h - stopped - 05/16: Per PT, patient becomes hypotensive with exertion. adding sodium chloride tablets 1g daily - 05/05: -Supine BP: 114/71, HR 75 -Sitting BP: 113/71, HR 90 -Standing BP: 116/72, HR 94 Anemia- resolved Hgb stable - 06/19: Hgb 11.5 - 06/12 - Hgb 10.4, improving - 05/30: Hgb trending up - 05/26: may have a component of Fe deficiency, will replete - 05/25: Hgb still low, will get labs with Iron panel tomorrow - 05/22: Hgb 8.7, repeated and was 9.5 - 05/15: hgb 11.0 - chronic - monitor with weekly labs Aneurysmal dilatation of ascending thoracic aorta; Currently 4.5 cm. Patient needs repeat Ct imaging every 6 months - last CT scan in 03/2016, should be monitored in September, Onychomycosis;chronic and improving - patient had aseptic debridement of toenails x 10 - clotrimazole cream to be applied to feet b/l BID - podiatry following Sacral decubitus- resolved - 05/17- sacrum examined- no sacral ulcers noted - 05/16: patient needs to go from bed to chair to prevent ulcers from re-forming - 04/19: exam revealed a previously healed decubitus ulcer of right buttocks. Sacral exam was clear. - Wound care following - recommending medihoney covered with bordered telfa dressing to right lower buttocks stage 2 pressure ulcer daily. - Pt is OOB to chair with help from PT daily - Order placed for turning patient Q2H History of Urinary Tract Infection - 06/25: No urinary complaints - 06/09: No urinary complaints - 05/20: ordered repeat urine culture for urinary frequency - no growth (Final) - 05/17: urine culture negative - 05/16: + nitrates, 4 RBC, occasional bacteria. - urine culture 05/03- no growth - UA 05/05: +nitrates, occasional bacteria Syncopal Episode x1- resolved - 05/04/16 CTA- negative for PE (underlying atelectasis new findings compared to the prior study 03/20/2016.) Prophylactic Measure - Labs weekly on Sunday - Lovenox 40mg SC daily - Pepcid 20mg PO BID - A and D ointment TOP Q*H - Patient is homeless. Used to stay with friend, but no longer welcome there. Goal is to walk with cane so he can go to a [facility] (will not qualify with a walker) - patient will need to work with PT frequently - right calf with dark skin lesion underneath knee immobilizer, wound care on board - applying medihoney Disposition - Reaching out to family in [facility] - no response from family per case management - Social Work is following up - Cannot be discharged to [facility] due to functional status - Continue to work with PT - No new changes to pt status or plan - Palliative care consulted - pt agrees to DNR/DNI- cont current medical mgmt, rec for Silvadene to buttock <Parker Cantu - Last Filed: 07/12/16 12:29> Objective - Vital Signs/Intake and Output Vital Signs (last 24 hours): Temp Pulse Resp BP Pulse Ox 98.3 F 82 20 102/64 96 07/12/16 09:22 07/12/16 09:22 07/12/16 09:22 07/12/16 09:22 07/12/16 09:22 Intake and Output: 07/12/16 07/12/16 06:59 18:59 Output Total 200 Balance -200 - Medications Medications: Current Medications Acetaminophen (Tylenol 325mg Tab) 650 mg PO Q6 PRN PRN Reason: Pain, Mild (1-3) Last Admin: 07/02/16 21:37 Dose: 650 mg Docusate Sodium (Colace) 100 mg PO BID [facility] Last Admin: 06/30/16 09:13 Dose: Not Given Enoxaparin Sodium (Lovenox) 40 mg SC DAILY [facility] Last Admin: 07/12/16 10:04 Dose: 40 mg Famotidine (Pepcid) 20 mg PO BID [facility] Last Admin: 07/12/16 10:04 Dose: 20 mg Ketoconazole (Nizoral) 0 gm TOP BID [facility] Last Admin: 07/12/16 10:04 Dose: 1 applic Loperamide HCl (Imodium) 2 mg PO QID PRN PRN Reason: Diarrhea Last Admin: 07/01/16 20:22 Dose: 2 mg Magnesium Oxide (Mag-Ox) 400 mg PO BID [facility] Last Admin: 07/12/16 10:04 Dose: 400 mg Polyethylene Glycol (Miralax) 17 gm PO Q2D [facility] Last Admin: 06/29/16 10:44 Dose: Not Given Sodium Chloride (Sodium Chloride Tab) 1 gm PO DAILY@1330 [facility] Last Admin: 07/11/16 14:32 Dose: 1 gm Tamsulosin HCl (Flomax) 0.8 mg PO DAILY [facility] Last Admin: 07/12/16 10:04 Dose: 0.8 mg Tramadol HCl (Ultram) 25 mg PO TID PRN PRN Reason: Pain, moderate (4-7) Last Admin: 07/10/16 09:21 Dose: 25 mg - Labs Labs: 07/10/16 12:53 07/10/16 09:22 Attending/Attestation - Attestation I have personally seen and examined this patient.: Yes I have fully participated in the care of the patient.: Yes I have reviewed all pertinent clinical information, including history, physical exam and plan: Yes Notes (Text): Patient seen and examined with the resident. Agree with the resident's evaluation, assessment and plan. BPH chronic Leg swelling Fracture of tibia, proximal, right, closed
[2016-07-01] MEDS: Magnesium Oxide 400 mg Tab UD PO SCH ×2 (09:42→18:10)
[2016-07-01] MEDS: Enoxaparin 40 mg Syringe SC SCH (09:42)
[2016-07-01] MEDS: Silver Sulfadiazine 1% Cream (20 gm) TOP SCH (09:43)
[2016-07-01] MEDS: Clotrimazole 1% Cream 15 GM TUBE TOP SCH ×2 (09:43→18:13)
--- NOTE | 2016-07-02 00:47 | CP.PCM.PN ---
<BarbySadia - Last Filed: 07/02/16 00:45> Subjective - Date & Time of Evaluation Date of Evaluation: 07/02/16 Time of Evaluation: 00:45 - Subjective Subjective: Internal medicine progress note for Hospitalist service- Sadia Dior, PGY-1 Pt S & E at bedside Pt continuing to c/o Right hip/knee pain. States he is having diarrhea 4-5x per day- is currently recieving immodium. Has sensation of incompletely moving bowels after moving bowels. Is tolerating diet/sleeping ok. Denies N/V/F/C, SOB , CP, abdominal pain. Objective - Vital Signs/Intake and Output Vital Signs (last 24 hours): Temp Pulse Resp BP Pulse Ox 98.3 F 82 20 112/71 98 07/01/16 16:00 07/01/16 16:00 07/01/16 16:00 07/01/16 16:00 07/01/16 16:00 Intake and Output: 07/01/16 07/02/16 18:59 06:59 Intake Total 960 Balance 960 - Medications Medications: Current Medications Acetaminophen (Tylenol 325mg Tab) 650 mg PO Q6 PRN PRN Reason: Pain, Mild (1-3) Last Admin: 07/01/16 04:31 Dose: 650 mg Carbamide Peroxide (Debrox Ear Drops) 1 ml AU BID [facility] Last Admin: 07/01/16 18:11 Dose: 1 drop Clotrimazole (Lotrimin 1%) 0 gm TOP BID [facility] Last Admin: 07/01/16 18:13 Dose: 1 appl Docusate Sodium (Colace) 100 mg PO BID [facility] Last Admin: 06/30/16 09:13 Dose: Not Given Enoxaparin Sodium (Lovenox) 40 mg SC DAILY [facility] Last Admin: 07/01/16 09:42 Dose: 40 mg Famotidine (Pepcid) 20 mg PO BID [facility] Last Admin: 07/01/16 18:11 Dose: 20 mg Loperamide HCl (Imodium) 2 mg PO QID PRN PRN Reason: Diarrhea Last Admin: 07/01/16 20:22 Dose: 2 mg Magnesium Oxide (Mag-Ox) 400 mg PO BID [facility] Last Admin: 07/01/16 18:10 Dose: 400 mg Polyethylene Glycol (Miralax) 17 gm PO Q2D [facility] Last Admin: 06/29/16 10:44 Dose: Not Given Silver Sulfadiazine (Silvadene 1% 20 Gm) 0 ea TOP Q12H [facility] Last Admin: 07/01/16 09:43 Dose: 1 applic Sodium Chloride (Sodium Chloride Tab) 1 gm PO DAILY@1330 [facility] Last Admin: 06/30/16 12:57 Dose: 1 gm Tamsulosin HCl (Flomax) 0.8 mg PO DAILY [facility] Last Admin: 07/01/16 09:46 Dose: 0.8 mg Tramadol HCl (Ultram) 25 mg PO TID PRN PRN Reason: Pain, moderate (4-7) Last Admin: 06/30/16 17:51 Dose: 25 mg - Labs Labs: 06/26/16 07:01 06/26/16 07:01 - Constitutional Appears: Non-toxic, No Acute Distress, Cachectic - Head Exam Head Exam: ATRAUMATIC, NORMAL INSPECTION, NORMOCEPHALIC - Eye Exam Eye Exam: EOMI, Normal appearance, PERRL Pupil Exam: NORMAL ACCOMODATION, PERRL - ENT Exam ENT Exam: Mucous Membranes Moist, Normal Exam - Neck Exam Neck Exam: Full ROM, Normal Inspection. absent: Lymphadenopathy - Respiratory Exam Respiratory Exam: Clear to Ausculation Bilateral, NORMAL BREATHING PATTERN - Cardiovascular Exam Cardiovascular Exam: REGULAR RHYTHM, +S1, +S2. absent: Murmur - GI/Abdominal Exam GI & Abdominal Exam: Soft, Normal Bowel Sounds. absent: Tenderness - Extremities Exam Extremities Exam: Normal Inspection, Tenderness (over right hip area, right knee ). absent: Full ROM - Neurological Exam Neurological Exam: Alert, Awake, CN II-XII Intact, Oriented x3 - Psychiatric Exam Psychiatric exam: Normal Affect, Normal Mood - Skin Skin Exam: Dry (facial skin is flaky), Intact (well healed scar over right knee) , Normal Color, Warm Assessment and Plan - Assessment and Plan (Free Text) Assessment: Diarrhea- unresolved Cont Imodium PRN Monitor Constipation- resolved Colace 100 mg PO BID Miralax 17 gm PO Q2D- held Fracture of tibia, proximal, right, closed; pain management and physical therapy -07/02: Cont PT -07/01: Ortho saw pt w/recs for progressive WB, PT/OT for strengthening and ambulation training daily, Encourage OOB VTE proph - 06/27: 8 weeks of immobilization and protected WB as per ortho xrays right knee show resolved area of sclerosis at presumed stress fracture right lateral tibial plateau (MRI contraindicated due to metallic implant in patella) PT notified - 06/25: ambulating with a walker -06/08- re-ordered PT eval - 06/08 - Stable - 05/31 - per ortho - Advance to 10% TTWB RLE, plan repeat xrays in 2 weeks and reassess, continue knee immobilizer, PT order updated - 05/29 - Cont to work with PT. Able to ambulate with walker, NWB on right LE. -05/27- cont current mgmt - 05/24 - continue with current management. - 05/20- ordered venous doppler right leg for swelling - results as above - 05/18- repeat xray with no significant change - 05/11- per ortho team: patient to remain non-weight bearing to right lower extremity - 05/09- right knee xrays ordered by orthopedics team- No acute fracture. Status post ORIF old patellar fracture No significant interval change compared to the prior examination Will follow up recommendations from orthopedics team - 05/05:Ortho Dr. Pino and Jayce West PA following- no orthopedic intervention indicated at this time, strict NWB, PT/OT - Impaction/insufficiency fracture, lateral aspect proximal tibia, non operative , treated with strict NWB and immobilization - At least 6 weeks old by imaging - Tylenol 650 mg PO Q6 PRN mild pain - Tramadol 25mg TID pRN - Daily physical therapy - Nonweight bearing on R leg - L knee x-ray: severe osteopenia. Sclerotic changes about the posterior proximal tibia may relate to a sclerotic healing response of a prior stress fracture here. no tibial plateau depressed fracture. The sclerosis is perceived on the prior 04/21 study; no interval pathology appreciated between 2 exams. If symptoms worsen consider MRI. 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 Gait Instability; will continue with PT/OT - 06/27: 8 weeks of immobilization and protected WB as per ortho xrays right knee show resolved area of sclerosis at presumed stress fracture right lateral tibial plateau (MRI contraindicated due to metallic implant in patella) PT notified - 06/25: ambulating with a walker -06/09: re-ordered PT eval for continued therapy - 06/02: complains of pain on plantar surface of foot - likely plantar fasciitis , will have PT work on it - Patient uses walker- NWB at this time RLE - not safe for discharge to nursing home - Chronic RLE pain (since admission) due to slippage of mechanical hardware in his leg from prior procedure - R knee immobilizer in place and patient on strict NWB status - Xray 04/03: superior migration of prosthesis. sclerosi about right acetabulum - daily physical therapy - PT 05/05: decline in transfers due to limitation from right hip and knee pain. patient still able to tolerate hallway ambulation, no episode of orthostatic hypotension post gait. recommending room/hallway ambulation w/ nursing for AM/ PM care or toileting. - PT 05/09: decline in function limited by persisting right groin/ hip and knee pain. patient still recommended for daily out of bed during am/pm care. cleared for ambulation in the room with standard walker non weight bearing right lower extremity - PT 05/10: mild decline in transfers due to pain in right knee and hip. NWB to RLE. Patient with episode of hypotension post ambulation- no syncope. - 05/16: discussed with PT. Patient function declining due to immobility. Patient needs to go from bed to chair. Patient should also be ambulating to the bathroom with assist. Patient becomes hypotensive with walking. - 05/17: patient assisted to chair. discussed with nursing the need for ambulation to and from bathroom with assistance as well as transfer from bed to chair Abdominal Pain-resolved CT abd/pelvis with PO contrast: limited study, bowel containing left inguinal hernia without evidence of obstruction. Smaller fat and vessel containing right inguinal hernia without evidence of obstruction; anterior right aspect of the urinary bladderalso extends into hernia defect. Cholelithiasis. Moderate constipation. Enlarged prostate gland. Right hip arhtroplasty. Right protrusion acetabulum. Sclerosis involving osseous structures, possibly reactive (see full report). - 06/25: slight abdominal pain but no constipation and good bewl sounds. Monitor. - 06/09- no abdominal pain reported, moving bowels - 05/24: less abd pain, reports BMs - 05/22: continues to complain of straining, will give one time miralax dose - 05/21: restart colace 100mg BID as patient straining to have BM - patient with multiple soft stools- will stop miralax for now - patient has been complaining of abdominal pain since admission - Colace 100mg PO BID - Dulcolax every 3 days - Inguinal hernia with unobstructed bowel loop involvement; protruded 04/18 due to straining on toilet. - 05/03/16 B/L inguinal hernias reduced today without incidence - Abdominal US 04/01: Gallstones, no acute cholecystitis, no hydronephrosis. trace ascites (see full report) - Abd/pelv CT 03/11: mod b/l pleural effusions and assoc consolidations; tiny probably gallstones within the gallbladder; small to moderate hiatal hernia; R inguinal hernia which contains small loops of bowel, likely small bowel- no evidence of obstruction as oral contrast is noted within R colon. No definite free air, however evaluation for pneumoperitoneum is suboptimal. Moderate to severe constipation with questionable impaction. Prostate gland 4.1cm x 4.6cm. Urinary bladder appears unremarkable. Small amount of fluid within a right inguinal hernia. Sclerosis of right iliac wing. Extensive anasarca. BPH - Flomax 0.8 mg PO daily - Urology Dr. Hughes on board - will f/u with recs concerning inpatient TURP - 05/18: Pyridium 200 mg PO TIDPC- discontinued Leg swelling - 07/02: No changes - 06/09: No changes - 05/23: will order left leg US to r/o DVT - negative for DVT or any other abnormalities - 05/20: venous doppler ordered - read as: No evidence of deep or superficial vein thrombosis of the right lower extremity with excellent venous flow. Normal valve function noted of the right side. Normal venous flow noted in the left common femoral vein. Facial rash - resembles seborrheic dermatitis, patient encouraged to moisturize - ESR 32 - CRP 1.51 - RA- negative - A&D ointment to face Orthostasis- Resolved - 05/21: IV fluids- NS at 100cc/h - stopped - 05/16: Per PT, patient becomes hypotensive with exertion. adding sodium chloride tablets 1g daily - 05/05: -Supine BP: 114/71, HR 75 -Sitting BP: 113/71, HR 90 -Standing BP: 116/72, HR 94 Anemia- resolved Hgb stable - 06/26: Hgb 12.4- improved - 06/19: Hgb 11.5 - 06/12 - Hgb 10.4, improving - 05/30: Hgb trending up - 05/26: may have a component of Fe deficiency, will replete - 05/25: Hgb still low, will get labs with Iron panel tomorrow - 05/22: Hgb 8.7, repeated and was 9.5 - 05/15: hgb 11.0 - chronic - monitor with weekly labs Aneurysmal dilatation of ascending thoracic aorta; Currently 4.5 cm. Patient needs repeat Ct imaging every 6 months - last CT scan in 03/2016, should be monitored in September, Onychomycosis;chronic and improving - patient had aseptic debridement of toenails x 10 - clotrimazole cream to be applied to feet b/l BID - podiatry following Sacral decubitus- resolved - 07/02- wound care PRN - 05/17- sacrum examined- no sacral ulcers noted - 05/16: patient needs to go from bed to chair to prevent ulcers from re-forming - 04/19: exam revealed a previously healed decubitus ulcer of right buttocks. Sacral exam was clear. - Wound care following - recommending medihoney covered with bordered telfa dressing to right lower buttocks stage 2 pressure ulcer daily. - Pt is OOB to chair with help from PT daily - Order placed for turning patient Q2H History of Urinary Tract Infection - 07/02: No urinary complaints - 06/25: No urinary complaints - 06/09: No urinary complaints - 05/20: ordered repeat urine culture for urinary frequency - no growth (Final) - 05/17: urine culture negative - 05/16: + nitrates, 4 RBC, occasional bacteria. - urine culture 05/03- no growth - UA 05/05: +nitrates, occasional bacteria Syncopal Episode x1- resolved - 05/04/16 CTA- negative for PE (underlying atelectasis new findings compared to the prior study 03/20/2016.) Prophylactic Measure - Labs weekly on Sunday - Lovenox 40mg SC daily - Pepcid 20mg PO BID - A and D ointment TOP Q*H - Patient is homeless. Used to stay with friend, but no longer welcome there. Goal is to walk with cane so he can go to a nursing home (will not qualify with a walker) - patient will need to work with PT frequently - right calf with dark skin lesion underneath knee immobilizer, wound care on board - applying medihoney Disposition - Reaching out to family in [facility] - no response from family per case management - Social Work is following up - Cannot be discharged to nursing home due to functional status - Continue to work with PT - No new changes to pt status or plan - Palliative care consulted - pt agrees to DNR/DNI- cont current medical mgmt, rec for Silvadene to buttock <Esme Garcia V - Last Filed: 07/02/16 17:07> Objective - Vital Signs/Intake and Output Vital Signs (last 24 hours): Temp Pulse Resp BP Pulse Ox 97.7 F 78 20 119/76 98 07/02/16 16:51 07/02/16 16:51 07/02/16 16:51 07/02/16 16:51 07/02/16 16:51 - Medications Medications: Current Medications Acetaminophen (Tylenol 325mg Tab) 650 mg PO Q6 PRN PRN Reason: Pain, Mild (1-3) Last Admin: 07/01/16 04:31 Dose: 650 mg Carbamide Peroxide (Debrox Ear Drops) 1 ml AU BID [facility] Last Admin: 07/02/16 11:15 Dose: 1 drop Clotrimazole (Lotrimin 1%) 0 gm TOP BID [facility] Last Admin: 07/02/16 11:16 Dose: 1 appl Docusate Sodium (Colace) 100 mg PO BID [facility] Last Admin: 06/30/16 09:13 Dose: Not Given Enoxaparin Sodium (Lovenox) 40 mg SC DAILY [facility] Last Admin: 07/02/16 11:00 Dose: 40 mg Famotidine (Pepcid) 20 mg PO BID [facility] Last Admin: 07/02/16 11:14 Dose: 20 mg Loperamide HCl (Imodium) 2 mg PO QID PRN PRN Reason: Diarrhea Last Admin: 07/01/16 20:22 Dose: 2 mg Magnesium Oxide (Mag-Ox) 400 mg PO BID [facility] Last Admin: 07/02/16 11:14 Dose: 400 mg Polyethylene Glycol (Miralax) 17 gm PO Q2D [facility] Last Admin: 06/29/16 10:44 Dose: Not Given Silver Sulfadiazine (Silvadene 1% 20 Gm) 0 ea TOP Q12H [facility] Last Admin: 07/02/16 11:18 Dose: 1 applic Sodium Chloride (Sodium Chloride Tab) 1 gm PO DAILY@1330 [facility] Last Admin: 07/02/16 14:26 Dose: Not Given Tamsulosin HCl (Flomax) 0.8 mg PO DAILY [facility] Last Admin: 07/02/16 11:13 Dose: 0.8 mg Tramadol HCl (Ultram) 25 mg PO TID PRN PRN Reason: Pain, moderate (4-7) Last Admin: 06/30/16 17:51 Dose: 25 mg - Labs Labs: 06/26/16 07:01 06/26/16 07:01 Attending/Attestation - Attestation I have personally seen and examined this patient.: Yes I have fully participated in the care of the patient.: Yes I have reviewed all pertinent clinical information, including history, physical exam and plan: Yes Notes (Text): Patient seen, examined, and case discussed with day-time resident. Patient reports since receiving the "medications for the stomach" the diarrhea has been less. Patient also continues to complain of right lower extremity pain, which appears chronic secondary to displaced prosthesis. Per latest ortho, appears to be healing, continue strengthening and ambulating needed. We will continue oral pain medication as needed. Patient also continue with physical therapy daily. Discharge planning when patient is physically stronger and deemed safe to be discharged.
[2016-07-02] MEDS: Enoxaparin 40 mg Syringe SC SCH (11:00)
[2016-07-02] MEDS: Magnesium Oxide 400 mg Tab UD PO SCH ×2 (11:14→17:48)
[2016-07-02] MEDS: Clotrimazole 1% Cream 15 GM TUBE TOP SCH ×2 (11:16→17:50)
[2016-07-02] MEDS: Silver Sulfadiazine 1% Cream (20 gm) TOP SCH ×2 (11:18→21:35)
[2016-07-02] MEDS: Tramadol 25 mg PO PRN (17:53)
[2016-07-03] MEDS: Magnesium Oxide 400 mg Tab UD PO SCH ×2 (09:39→17:58)
[2016-07-03] MEDS: Enoxaparin 40 mg Syringe SC SCH (09:39)
[2016-07-03] MEDS: Silver Sulfadiazine 1% Cream (20 gm) TOP SCH ×2 (09:40→21:08)
--- NOTE | 2016-07-03 09:53 | CP.PCM.PN ---
Subjective - Date & Time of Evaluation Date of Evaluation: 07/03/16 Time of Evaluation: 09:47 - Subjective Subjective: Complaining of RLE pain. No new complaints Objective - Vital Signs/Intake and Output Vital Signs (last 24 hours): Temp Pulse Resp BP Pulse Ox 97.8 F 83 20 120/69 97 07/03/16 09:02 07/03/16 09:02 07/03/16 09:02 07/03/16 09:02 07/03/16 09:02 Intake and Output: 07/03/16 07/03/16 06:59 18:59 Output Total 200 Balance -200 - Medications Medications: Current Medications Acetaminophen (Tylenol 325mg Tab) 650 mg PO Q6 PRN PRN Reason: Pain, Mild (1-3) Last Admin: 07/02/16 21:37 Dose: 650 mg Clotrimazole (Lotrimin 1%) 0 gm TOP BID [facility] Last Admin: 07/02/16 17:50 Dose: 1 appl Docusate Sodium (Colace) 100 mg PO BID [facility] Last Admin: 06/30/16 09:13 Dose: Not Given Enoxaparin Sodium (Lovenox) 40 mg SC DAILY [facility] Last Admin: 07/03/16 09:39 Dose: 40 mg Famotidine (Pepcid) 20 mg PO BID [facility] Last Admin: 07/03/16 09:39 Dose: 20 mg Loperamide HCl (Imodium) 2 mg PO QID PRN PRN Reason: Diarrhea Last Admin: 07/01/16 20:22 Dose: 2 mg Magnesium Oxide (Mag-Ox) 400 mg PO BID [facility] Last Admin: 07/03/16 09:39 Dose: 400 mg Polyethylene Glycol (Miralax) 17 gm PO Q2D [facility] Last Admin: 06/29/16 10:44 Dose: Not Given Silver Sulfadiazine (Silvadene 1% 20 Gm) 0 ea TOP Q12H [facility] Last Admin: 07/03/16 09:40 Dose: 1 applic Sodium Chloride (Sodium Chloride Tab) 1 gm PO DAILY@1330 [facility] Last Admin: 07/02/16 14:26 Dose: Not Given Tamsulosin HCl (Flomax) 0.8 mg PO DAILY [facility] Last Admin: 07/03/16 09:39 Dose: 0.8 mg Tramadol HCl (Ultram) 25 mg PO TID PRN PRN Reason: Pain, moderate (4-7) Last Admin: 07/02/16 17:53 Dose: 25 mg - Labs Labs: 06/26/16 07:01 06/26/16 07:01 - Constitutional Appears: No Acute Distress - Cardiovascular Exam Additional comments: +DP calves soft NT neg homans - Extremities Exam Additional comments: sensation intact non tender to lateral tibia no swelling/erythema limited hip ROM (stable, baseline) - Neurological Exam Neurological Exam: Alert, Awake, Oriented x3 Additional comments: still unable to do SLR - Skin Skin Exam: Dry, Normal Color, Warm Assessment and Plan (1) Acetabular protrusion Assessment & Plan: repeat xrays show no change in position of protrusio, appears stable discussed again at length with Dr. Pino regarding patient condition, social situation, homeless, no family to speak of, no ability for rehab placement or outpt rehab, unable to reach family, as well as fact that local usp will not accept patient with assistive device other than cane patient with minimal motivation, he does not get out of bed unless directed by PT again states that no surgical intervention is planned, as radiographically stable and rehab potential poor Status: Acute (2) Fracture of tibia, proximal, right, closed Assessment & Plan: healed per imaging knee immob d/c patient needs daily PT for ambulation training with cane WBAT RLE and again instructed on exercises to do on own including SLR, short arc quads, quad sets, active knee flexion encourage OOB Dr. Pino agrees with above Status: Chronic
--- NOTE | 2016-07-03 11:03 | CP.PCM.PN ---
<Kwame Sears - Last Filed: 07/03/16 10:59> Subjective - Date & Time of Evaluation Date of Evaluation: 07/03/16 Time of Evaluation: 07:15 - Subjective Subjective: PGY-1 Medicine Progress Note for Dr. Wiggins Patient seen and examined at bedside. No acute event overnight. Patient continues to experience Right hip and knee pain. Patient diarrhea is improving and states it is less frequent. He is tolerating diet. Denies fever/chills, SOB , CP, palpitations, abdominal pain, n/v, constipation, incontinence. Objective - Vital Signs/Intake and Output Vital Signs (last 24 hours): Temp Pulse Resp BP Pulse Ox 97.8 F 83 20 120/69 97 07/03/16 09:02 07/03/16 09:02 07/03/16 09:02 07/03/16 09:02 07/03/16 09:02 Intake and Output: 07/03/16 07/03/16 06:59 18:59 Output Total 200 Balance -200 - Medications Medications: Current Medications Acetaminophen (Tylenol 325mg Tab) 650 mg PO Q6 PRN PRN Reason: Pain, Mild (1-3) Last Admin: 07/02/16 21:37 Dose: 650 mg Clotrimazole (Lotrimin 1%) 0 gm TOP BID [facility] Last Admin: 07/02/16 17:50 Dose: 1 appl Docusate Sodium (Colace) 100 mg PO BID [facility] Last Admin: 06/30/16 09:13 Dose: Not Given Enoxaparin Sodium (Lovenox) 40 mg SC DAILY [facility] Last Admin: 07/03/16 09:39 Dose: 40 mg Famotidine (Pepcid) 20 mg PO BID [facility] Last Admin: 07/03/16 09:39 Dose: 20 mg Loperamide HCl (Imodium) 2 mg PO QID PRN PRN Reason: Diarrhea Last Admin: 07/01/16 20:22 Dose: 2 mg Magnesium Oxide (Mag-Ox) 400 mg PO BID [facility] Last Admin: 07/03/16 09:39 Dose: 400 mg Polyethylene Glycol (Miralax) 17 gm PO Q2D [facility] Last Admin: 06/29/16 10:44 Dose: Not Given Silver Sulfadiazine (Silvadene 1% 20 Gm) 0 ea TOP Q12H [facility] Last Admin: 07/03/16 09:40 Dose: 1 applic Sodium Chloride (Sodium Chloride Tab) 1 gm PO DAILY@1330 [facility] Last Admin: 07/02/16 14:26 Dose: Not Given Tamsulosin HCl (Flomax) 0.8 mg PO DAILY [facility] Last Admin: 07/03/16 09:39 Dose: 0.8 mg Tramadol HCl (Ultram) 25 mg PO TID PRN PRN Reason: Pain, moderate (4-7) Last Admin: 07/02/16 17:53 Dose: 25 mg - Labs Labs: 06/26/16 07:01 06/26/16 07:01 - Constitutional Appears: Non-toxic, No Acute Distress, Cachectic - Head Exam Head Exam: ATRAUMATIC, NORMOCEPHALIC - Eye Exam Eye Exam: EOMI, Normal appearance Pupil Exam: PERRL - ENT Exam ENT Exam: Mucous Membranes Moist - Neck Exam Neck Exam: Normal Inspection - Respiratory Exam Respiratory Exam: Clear to Ausculation Bilateral, NORMAL BREATHING PATTERN - Cardiovascular Exam Cardiovascular Exam: RRR, +S1, +S2 - GI/Abdominal Exam GI & Abdominal Exam: Soft, Normal Bowel Sounds. absent: Tenderness - Extremities Exam Extremities Exam: Normal Capillary Refill, Tenderness. absent: Pedal Edema Additional comments: TTP over right hip area and right knee well healed scar over right knee - Back Exam Back Exam: absent: CVA tenderness (L), CVA tenderness (R) - Neurological Exam Neurological Exam: Alert, Awake, CN II-XII Intact, Oriented x3 - Psychiatric Exam Psychiatric exam: Normal Affect, Normal Mood - Skin Skin Exam: Dry, Intact, Normal Color, Warm Assessment and Plan - Assessment and Plan (Free Text) Plan: Diarrhea improving, less frequent Cont Imodium PRN Monitor Constipation- resolved Colace 100 mg PO BID Miralax 17 gm PO Q2D- held Fracture of tibia, proximal, right, closed; pain management and physical therapy -07/02: Cont PT -07/01: Ortho saw pt w/recs for progressive WB, PT/OT for strengthening and ambulation training daily, Encourage OOB VTE proph - 06/27: 8 weeks of immobilization and protected WB as per ortho xrays right knee show resolved area of sclerosis at presumed stress fracture right lateral tibial plateau (MRI contraindicated due to metallic implant in patella) PT notified - 06/25: ambulating with a walker -06/08- re-ordered PT eval - 06/08 - Stable - 05/31 - per ortho - Advance to 10% TTWB RLE, plan repeat xrays in 2 weeks and reassess, continue knee immobilizer, PT order updated - 05/29 - Cont to work with PT. Able to ambulate with walker, NWB on right LE. -05/27- cont current mgmt - 05/24 - continue with current management. - 05/20- ordered venous doppler right leg for swelling - results as above - 05/18- repeat xray with no significant change - 05/11- per ortho team: patient to remain non-weight bearing to right lower extremity - 05/09- right knee xrays ordered by orthopedics team- No acute fracture. Status post ORIF old patellar fracture No significant interval change compared to the prior examination Will follow up recommendations from orthopedics team - 05/05:Ortho Dr. Pino and Jayce West PA following- no orthopedic intervention indicated at this time, strict NWB, PT/OT - Impaction/insufficiency fracture, lateral aspect proximal tibia, non operative , treated with strict NWB and immobilization - At least 6 weeks old by imaging - Tylenol 650 mg PO Q6 PRN mild pain - Tramadol 25mg TID pRN - Daily physical therapy - Nonweight bearing on R leg - L knee x-ray: severe osteopenia. Sclerotic changes about the posterior proximal tibia may relate to a sclerotic healing response of a prior stress fracture here. no tibial plateau depressed fracture. The sclerosis is perceived on the prior 04/21 study; no interval pathology appreciated between 2 exams. If symptoms worsen consider MRI. 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 Gait Instability; will continue with PT/OT - 06/27: 8 weeks of immobilization and protected WB as per ortho xrays right knee show resolved area of sclerosis at presumed stress fracture right lateral tibial plateau (MRI contraindicated due to metallic implant in patella) PT notified - 06/25: ambulating with a walker -06/09: re-ordered PT eval for continued therapy - 06/02: complains of pain on plantar surface of foot - likely plantar fasciitis , will have PT work on it - Patient uses walker- NWB at this time RLE - not safe for discharge to halfway - Chronic RLE pain (since admission) due to slippage of mechanical hardware in his leg from prior procedure - R knee immobilizer in place and patient on strict NWB status - Xray 04/03: superior migration of prosthesis. sclerosi about right acetabulum - daily physical therapy - PT 05/05: decline in transfers due to limitation from right hip and knee pain. patient still able to tolerate hallway ambulation, no episode of orthostatic hypotension post gait. recommending room/hallway ambulation w/ nursing for AM/ PM care or toileting. - PT 05/09: decline in function limited by persisting right groin/ hip and knee pain. patient still recommended for daily out of bed during am/pm care. cleared for ambulation in the room with standard walker non weight bearing right lower extremity - PT 05/10: mild decline in transfers due to pain in right knee and hip. NWB to RLE. Patient with episode of hypotension post ambulation- no syncope. - 05/16: discussed with PT. Patient function declining due to immobility. Patient needs to go from bed to chair. Patient should also be ambulating to the bathroom with assist. Patient becomes hypotensive with walking. - 05/17: patient assisted to chair. discussed with nursing the need for ambulation to and from bathroom with assistance as well as transfer from bed to chair Abdominal Pain-resolved CT abd/pelvis with PO contrast: limited study, bowel containing left inguinal hernia without evidence of obstruction. Smaller fat and vessel containing right inguinal hernia without evidence of obstruction; anterior right aspect of the urinary bladderalso extends into hernia defect. Cholelithiasis. Moderate constipation. Enlarged prostate gland. Right hip arhtroplasty. Right protrusion acetabulum. Sclerosis involving osseous structures, possibly reactive (see full report). - 06/25: slight abdominal pain but no constipation and good bewl sounds. Monitor. - 06/09- no abdominal pain reported, moving bowels - 05/24: less abd pain, reports BMs - 05/22: continues to complain of straining, will give one time miralax dose - 05/21: restart colace 100mg BID as patient straining to have BM - patient with multiple soft stools- will stop miralax for now - patient has been complaining of abdominal pain since admission - Colace 100mg PO BID - Dulcolax every 3 days - Inguinal hernia with unobstructed bowel loop involvement; protruded 04/18 due to straining on toilet. - 05/03/16 B/L inguinal hernias reduced today without incidence - Abdominal US 04/01: Gallstones, no acute cholecystitis, no hydronephrosis. trace ascites (see full report) - Abd/pelv CT 03/11: mod b/l pleural effusions and assoc consolidations; tiny probably gallstones within the gallbladder; small to moderate hiatal hernia; R inguinal hernia which contains small loops of bowel, likely small bowel- no evidence of obstruction as oral contrast is noted within R colon. No definite free air, however evaluation for pneumoperitoneum is suboptimal. Moderate to severe constipation with questionable impaction. Prostate gland 4.1cm x 4.6cm. Urinary bladder appears unremarkable. Small amount of fluid within a right inguinal hernia. Sclerosis of right iliac wing. Extensive anasarca. BPH - Flomax 0.8 mg PO daily - Urology Dr. Hughes on board - will f/u with recs concerning inpatient TURP - 05/18: Pyridium 200 mg PO TIDPC- discontinued Leg swelling - 07/02: No changes - 06/09: No changes - 05/23: will order left leg US to r/o DVT - negative for DVT or any other abnormalities - 05/20: venous doppler ordered - read as: No evidence of deep or superficial vein thrombosis of the right lower extremity with excellent venous flow. Normal valve function noted of the right side. Normal venous flow noted in the left common femoral vein. Facial rash - resembles seborrheic dermatitis, patient encouraged to moisturize - ESR 32 - CRP 1.51 - RA- negative - A&D ointment to face Orthostasis- Resolved - 05/21: IV fluids- NS at 100cc/h - stopped - 05/16: Per PT, patient becomes hypotensive with exertion. adding sodium chloride tablets 1g daily - 05/05: -Supine BP: 114/71, HR 75 -Sitting BP: 113/71, HR 90 -Standing BP: 116/72, HR 94 Anemia- resolved Hgb stable - 06/26: Hgb 12.4- improved - 06/19: Hgb 11.5 - 06/12 - Hgb 10.4, improving - 05/30: Hgb trending up - 05/26: may have a component of Fe deficiency, will replete - 05/25: Hgb still low, will get labs with Iron panel tomorrow - 05/22: Hgb 8.7, repeated and was 9.5 - 05/15: hgb 11.0 - chronic - monitor with weekly labs Aneurysmal dilatation of ascending thoracic aorta; Currently 4.5 cm. Patient needs repeat Ct imaging every 6 months - last CT scan in 03/2016, should be monitored in September, Onychomycosis;chronic and improving - patient had aseptic debridement of toenails x 10 - clotrimazole cream to be applied to feet b/l BID - podiatry following Sacral decubitus- resolved - 07/02- wound care PRN - 05/17- sacrum examined- no sacral ulcers noted - 05/16: patient needs to go from bed to chair to prevent ulcers from re-forming - 04/19: exam revealed a previously healed decubitus ulcer of right buttocks. Sacral exam was clear. - Wound care following - recommending medihoney covered with bordered telfa dressing to right lower buttocks stage 2 pressure ulcer daily. - Pt is OOB to chair with help from PT daily - Order placed for turning patient Q2H History of Urinary Tract Infection - 07/02: No urinary complaints - 06/25: No urinary complaints - 06/09: No urinary complaints - 05/20: ordered repeat urine culture for urinary frequency - no growth (Final) - 05/17: urine culture negative - 05/16: + nitrates, 4 RBC, occasional bacteria. - urine culture 05/03- no growth - UA 05/05: +nitrates, occasional bacteria Syncopal Episode x1- resolved - 05/04/16 CTA- negative for PE (underlying atelectasis new findings compared to the prior study 03/20/2016.) Prophylactic Measure - Labs weekly on Sunday - Lovenox 40mg SC daily - Pepcid 20mg PO BID - A and D ointment TOP Q*H - Patient is homeless. Used to stay with friend, but no longer welcome there. Goal is to walk with cane so he can go to a halfway (will not qualify with a walker) - patient will need to work with PT frequently - right calf with dark skin lesion underneath knee immobilizer, wound care on board - applying medihoney Disposition - Reaching out to family in [facility] - no response from family per case management - Social Work is following up - Cannot be discharged to halfway due to functional status - Continue to work with PT - No new changes to pt status or plan - Palliative care consulted - pt agrees to DNR/DNI- cont current medical mgmt, rec for Silvadene to buttock <RosalieJose M - Last Filed: 07/03/16 15:15> Objective - Vital Signs/Intake and Output Vital Signs (last 24 hours): Temp Pulse Resp BP Pulse Ox 97.8 F 83 20 120/69 97 07/03/16 09:02 07/03/16 09:02 07/03/16 09:02 07/03/16 09:02 07/03/16 09:02 Intake and Output: 07/03/16 07/03/16 06:59 18:59 Output Total 200 Balance -200 - Medications Medications: Current Medications Acetaminophen (Tylenol 325mg Tab) 650 mg PO Q6 PRN PRN Reason: Pain, Mild (1-3) Last Admin: 07/02/16 21:37 Dose: 650 mg Clotrimazole (Lotrimin 1%) 0 gm TOP BID [facility] Last Admin: 07/02/16 17:50 Dose: 1 appl Docusate Sodium (Colace) 100 mg PO BID [facility] Last Admin: 06/30/16 09:13 Dose: Not Given Enoxaparin Sodium (Lovenox) 40 mg SC DAILY [facility] Last Admin: 07/03/16 09:39 Dose: 40 mg Famotidine (Pepcid) 20 mg PO BID [facility] Last Admin: 07/03/16 09:39 Dose: 20 mg Loperamide HCl (Imodium) 2 mg PO QID PRN PRN Reason: Diarrhea Last Admin: 07/01/16 20:22 Dose: 2 mg Magnesium Oxide (Mag-Ox) 400 mg PO BID [facility] Last Admin: 07/03/16 09:39 Dose: 400 mg Polyethylene Glycol (Miralax) 17 gm PO Q2D [facility] Last Admin: 06/29/16 10:44 Dose: Not Given Silver Sulfadiazine (Silvadene 1% 20 Gm) 0 ea TOP Q12H [facility] Last Admin: 07/03/16 09:40 Dose: 1 applic Sodium Chloride (Sodium Chloride Tab) 1 gm PO DAILY@1330 [facility] Last Admin: 07/03/16 14:30 Dose: 1 gm Tamsulosin HCl (Flomax) 0.8 mg PO DAILY [facility] Last Admin: 07/03/16 09:39 Dose: 0.8 mg Tramadol HCl (Ultram) 25 mg PO TID PRN PRN Reason: Pain, moderate (4-7) Last Admin: 07/02/16 17:53 Dose: 25 mg - Labs Labs: 07/03/16 11:22 07/03/16 11:22 Attending/Attestation - Attestation I have personally seen and examined this patient.: Yes I have fully participated in the care of the patient.: Yes I have reviewed all pertinent clinical information, including history, physical exam and plan: Yes Notes (Text): 07/03/16 15:14 Patient was seen and examined at bedside Complains of for right lower extremity pain Continue physical therapy daily. Discharge planning when patient is physically stronger.
[2016-07-03 11:28] LABS: BASO % 0.6 % (0.0-2.0); EOS # 0.1 K/uL (0.0-0.7); EOS % 2.7 % (0.0-4.0); HEMOGLOBIN 12.6 g/dL (12.0-18.0); LYMPH # 1.4 K/uL (1.0-4.3); LYMPH % 35.5 % (20.0-40.0); MEAN CELL VOLUME 97.5 fL (80.0-94.0); MEAN CORPUSCULAR HEMOGLOBIN 32.4 pg (27.0-31.0); MEAN CORPUSCULAR HGB CONC 33.2 g/dL (33.0-37.0); MONO # 0.3 K/uL (0.0-0.8); NEUT % 52.2 % (50.0-75.0); RBC 3.88 Mil/uL (4.40-5.90); RED CELL DISTRIBUTION WIDTH 13.5 % (11.5-14.5); WHITE BLOOD COUNT 3.8 K/uL (4.8-10.8)
[2016-07-03 11:44] LABS: GFR AFRICAN-AMERICAN > 60; GFR NON-AFRICAN AMERICAN > 60
[2016-07-03 11:45] LABS: ALT/SGPT 8 U/L (21-72); AST/SGOT 17 U/L (17-59); BLOOD UREA NITROGEN 13 mg/dL (9-20); CALCIUM 8.7 mg/dl (8.6-10.4)
[2016-07-03] MEDS: Clotrimazole 1% Cream 15 GM TUBE TOP SCH (17:58)
[2016-07-04] MEDS: Silver Sulfadiazine 1% Cream (20 gm) TOP SCH (11:16)
[2016-07-04] MEDS: Magnesium Oxide 400 mg Tab UD PO SCH ×2 (11:16→17:49)
[2016-07-04] MEDS: Enoxaparin 40 mg Syringe SC SCH (11:16)
[2016-07-04] MEDS: Clotrimazole 1% Cream 15 GM TUBE TOP SCH ×2 (11:17→17:49)
--- NOTE | 2016-07-04 13:56 | CP.PCM.PN ---
<Kwame Sears - Last Filed: 07/04/16 13:54> Subjective - Date & Time of Evaluation Date of Evaluation: 07/04/16 Time of Evaluation: 07:30 - Subjective Subjective: PGY-1 Medicine Progress Note for Dr. Wiggins Patient seen and examined at bedside. No acute event overnight. Patient complaining of Right hip and knee pain. Diarrhea has resolved. He is tolerating diet. Denies fever/chills, SOB, CP, palpitations, abdominal pain, n/v , constipation, incontinence. Objective - Vital Signs/Intake and Output Vital Signs (last 24 hours): Temp Pulse Resp BP Pulse Ox 97.8 F 73 20 119/67 97 07/04/16 08:19 07/04/16 08:19 07/04/16 08:19 07/04/16 08:19 07/04/16 08:19 Intake and Output: 07/04/16 07/04/16 06:59 18:59 Intake Total 300 Output Total 550 Balance -250 - Medications Medications: Current Medications Acetaminophen (Tylenol 325mg Tab) 650 mg PO Q6 PRN PRN Reason: Pain, Mild (1-3) Last Admin: 07/02/16 21:37 Dose: 650 mg Clotrimazole (Lotrimin 1%) 0 gm TOP BID [facility] Last Admin: 07/04/16 11:17 Dose: 1 appl Docusate Sodium (Colace) 100 mg PO BID [facility] Last Admin: 06/30/16 09:13 Dose: Not Given Enoxaparin Sodium (Lovenox) 40 mg SC DAILY [facility] Last Admin: 07/04/16 11:16 Dose: 40 mg Famotidine (Pepcid) 20 mg PO BID [facility] Last Admin: 07/04/16 11:16 Dose: 20 mg Loperamide HCl (Imodium) 2 mg PO QID PRN PRN Reason: Diarrhea Last Admin: 07/01/16 20:22 Dose: 2 mg Magnesium Oxide (Mag-Ox) 400 mg PO BID [facility] Last Admin: 07/04/16 11:16 Dose: 400 mg Polyethylene Glycol (Miralax) 17 gm PO Q2D [facility] Last Admin: 06/29/16 10:44 Dose: Not Given Sodium Chloride (Sodium Chloride Tab) 1 gm PO DAILY@1330 [facility] Last Admin: 07/03/16 14:30 Dose: 1 gm Tamsulosin HCl (Flomax) 0.8 mg PO DAILY [facility] Last Admin: 07/04/16 11:16 Dose: 0.8 mg Tramadol HCl (Ultram) 25 mg PO TID PRN PRN Reason: Pain, moderate (4-7) Last Admin: 07/02/16 17:53 Dose: 25 mg - Labs Labs: 07/03/16 11:22 07/03/16 11:22 - Constitutional Appears: No Acute Distress - Head Exam Head Exam: ATRAUMATIC, NORMOCEPHALIC - Eye Exam Eye Exam: EOMI Pupil Exam: PERRL - ENT Exam ENT Exam: Mucous Membranes Moist - Neck Exam Neck Exam: Normal Inspection - Respiratory Exam Respiratory Exam: Clear to Ausculation Bilateral, NORMAL BREATHING PATTERN - Cardiovascular Exam Cardiovascular Exam: RRR, +S1, +S2 - GI/Abdominal Exam GI & Abdominal Exam: Soft, Normal Bowel Sounds. absent: Tenderness - Extremities Exam Extremities Exam: Normal Capillary Refill, Tenderness Additional comments: TTP over right hip area and right knee well healed scar over right knee - Back Exam Back Exam: absent: CVA tenderness (L), CVA tenderness (R) - Neurological Exam Neurological Exam: Alert, Awake, CN II-XII Intact, Oriented x3 - Psychiatric Exam Psychiatric exam: Normal Affect, Normal Mood - Skin Skin Exam: Dry, Intact, Normal Color, Warm Additional comments: chronic skin changes in LEs Assessment and Plan - Assessment and Plan (Free Text) Plan: Diarrhea Resolved Imodium PRN Monitor Constipation- resolved Colace 100 mg PO BID Miralax 17 gm PO Q2D- held Fracture of tibia, proximal, right, closed; pain management and physical therapy -07/02: Cont PT -07/01: Ortho saw pt w/recs for progressive WB, PT/OT for strengthening and ambulation training daily, Encourage OOB VTE proph - 06/27: 8 weeks of immobilization and protected WB as per ortho xrays right knee show resolved area of sclerosis at presumed stress fracture right lateral tibial plateau (MRI contraindicated due to metallic implant in patella) PT notified - 06/25: ambulating with a walker -06/08- re-ordered PT eval - 06/08 - Stable - 05/31 - per ortho - Advance to 10% TTWB RLE, plan repeat xrays in 2 weeks and reassess, continue knee immobilizer, PT order updated - 05/29 - Cont to work with PT. Able to ambulate with walker, NWB on right LE. -05/27- cont current mgmt - 05/24 - continue with current management. - 05/20- ordered venous doppler right leg for swelling - results as above - 05/18- repeat xray with no significant change - 05/11- per ortho team: patient to remain non-weight bearing to right lower extremity - 05/09- right knee xrays ordered by orthopedics team- No acute fracture. Status post ORIF old patellar fracture No significant interval change compared to the prior examination Will follow up recommendations from orthopedics team - 05/05:Ortho Dr. Pino and Jayce West PA following- no orthopedic intervention indicated at this time, strict NWB, PT/OT - Impaction/insufficiency fracture, lateral aspect proximal tibia, non operative , treated with strict NWB and immobilization - At least 6 weeks old by imaging - Tylenol 650 mg PO Q6 PRN mild pain - Tramadol 25mg TID pRN - Daily physical therapy - Nonweight bearing on R leg - L knee x-ray: severe osteopenia. Sclerotic changes about the posterior proximal tibia may relate to a sclerotic healing response of a prior stress fracture here. no tibial plateau depressed fracture. The sclerosis is perceived on the prior 04/21 study; no interval pathology appreciated between 2 exams. If symptoms worsen consider MRI. 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 Gait Instability; will continue with PT/OT - 06/27: 8 weeks of immobilization and protected WB as per ortho xrays right knee show resolved area of sclerosis at presumed stress fracture right lateral tibial plateau (MRI contraindicated due to metallic implant in patella) PT notified - 06/25: ambulating with a walker -06/09: re-ordered PT eval for continued therapy - 06/02: complains of pain on plantar surface of foot - likely plantar fasciitis , will have PT work on it - Patient uses walker- NWB at this time RLE - not safe for discharge to residential - Chronic RLE pain (since admission) due to slippage of mechanical hardware in his leg from prior procedure - R knee immobilizer in place and patient on strict NWB status - Xray 04/03: superior migration of prosthesis. sclerosi about right acetabulum - daily physical therapy - PT 05/05: decline in transfers due to limitation from right hip and knee pain. patient still able to tolerate hallway ambulation, no episode of orthostatic hypotension post gait. recommending room/hallway ambulation w/ nursing for AM/ PM care or toileting. - PT 05/09: decline in function limited by persisting right groin/ hip and knee pain. patient still recommended for daily out of bed during am/pm care. cleared for ambulation in the room with standard walker non weight bearing right lower extremity - PT 05/10: mild decline in transfers due to pain in right knee and hip. NWB to RLE. Patient with episode of hypotension post ambulation- no syncope. - 05/16: discussed with PT. Patient function declining due to immobility. Patient needs to go from bed to chair. Patient should also be ambulating to the bathroom with assist. Patient becomes hypotensive with walking. - 05/17: patient assisted to chair. discussed with nursing the need for ambulation to and from bathroom with assistance as well as transfer from bed to chair Abdominal Pain-resolved CT abd/pelvis with PO contrast: limited study, bowel containing left inguinal hernia without evidence of obstruction. Smaller fat and vessel containing right inguinal hernia without evidence of obstruction; anterior right aspect of the urinary bladderalso extends into hernia defect. Cholelithiasis. Moderate constipation. Enlarged prostate gland. Right hip arhtroplasty. Right protrusion acetabulum. Sclerosis involving osseous structures, possibly reactive (see full report). - 06/25: slight abdominal pain but no constipation and good bewl sounds. Monitor. - 06/09- no abdominal pain reported, moving bowels - 05/24: less abd pain, reports BMs - 05/22: continues to complain of straining, will give one time miralax dose - 05/21: restart colace 100mg BID as patient straining to have BM - patient with multiple soft stools- will stop miralax for now - patient has been complaining of abdominal pain since admission - Colace 100mg PO BID - Dulcolax every 3 days - Inguinal hernia with unobstructed bowel loop involvement; protruded 04/18 due to straining on toilet. - 05/03/16 B/L inguinal hernias reduced today without incidence - Abdominal US 04/01: Gallstones, no acute cholecystitis, no hydronephrosis. trace ascites (see full report) - Abd/pelv CT 03/11: mod b/l pleural effusions and assoc consolidations; tiny probably gallstones within the gallbladder; small to moderate hiatal hernia; R inguinal hernia which contains small loops of bowel, likely small bowel- no evidence of obstruction as oral contrast is noted within R colon. No definite free air, however evaluation for pneumoperitoneum is suboptimal. Moderate to severe constipation with questionable impaction. Prostate gland 4.1cm x 4.6cm. Urinary bladder appears unremarkable. Small amount of fluid within a right inguinal hernia. Sclerosis of right iliac wing. Extensive anasarca. BPH - Flomax 0.8 mg PO daily - Urology Dr. Hughes on board - will f/u with recs concerning inpatient TURP - 05/18: Pyridium 200 mg PO TIDPC- discontinued Leg swelling - 07/02: No changes - 06/09: No changes - 05/23: will order left leg US to r/o DVT - negative for DVT or any other abnormalities - 05/20: venous doppler ordered - read as: No evidence of deep or superficial vein thrombosis of the right lower extremity with excellent venous flow. Normal valve function noted of the right side. Normal venous flow noted in the left common femoral vein. Facial rash - resembles seborrheic dermatitis, patient encouraged to moisturize - ESR 32 - CRP 1.51 - RA- negative - A&D ointment to face Orthostasis- Resolved - 05/21: IV fluids- NS at 100cc/h - stopped - 05/16: Per PT, patient becomes hypotensive with exertion. adding sodium chloride tablets 1g daily - 05/05: -Supine BP: 114/71, HR 75 -Sitting BP: 113/71, HR 90 -Standing BP: 116/72, HR 94 Anemia- resolved Hgb stable - 06/26: Hgb 12.4- improved - 06/19: Hgb 11.5 - 06/12 - Hgb 10.4, improving - 05/30: Hgb trending up - 05/26: may have a component of Fe deficiency, will replete - 05/25: Hgb still low, will get labs with Iron panel tomorrow - 05/22: Hgb 8.7, repeated and was 9.5 - 05/15: hgb 11.0 - chronic - monitor with weekly labs Aneurysmal dilatation of ascending thoracic aorta; Currently 4.5 cm. Patient needs repeat Ct imaging every 6 months - last CT scan in 03/2016, should be monitored in September, Onychomycosis;chronic and improving - patient had aseptic debridement of toenails x 10 - clotrimazole cream to be applied to feet b/l BID - podiatry following Sacral decubitus- resolved - 07/02- wound care PRN - 05/17- sacrum examined- no sacral ulcers noted - 05/16: patient needs to go from bed to chair to prevent ulcers from re-forming - 04/19: exam revealed a previously healed decubitus ulcer of right buttocks. Sacral exam was clear. - Wound care following - recommending medihoney covered with bordered telfa dressing to right lower buttocks stage 2 pressure ulcer daily. - Pt is OOB to chair with help from PT daily - Order placed for turning patient Q2H History of Urinary Tract Infection - 07/02: No urinary complaints - 06/25: No urinary complaints - 06/09: No urinary complaints - 05/20: ordered repeat urine culture for urinary frequency - no growth (Final) - 05/17: urine culture negative - 05/16: + nitrates, 4 RBC, occasional bacteria. - urine culture 05/03- no growth - UA 05/05: +nitrates, occasional bacteria Syncopal Episode x1- resolved - 05/04/16 CTA- negative for PE (underlying atelectasis new findings compared to the prior study 03/20/2016.) Prophylactic Measure - Labs weekly on Sunday - Lovenox 40mg SC daily - Pepcid 20mg PO BID - A and D ointment TOP Q*H - Patient is homeless. Used to stay with friend, but no longer welcome there. Goal is to walk with cane so he can go to a residential (will not qualify with a walker) - patient will need to work with PT frequently - right calf with dark skin lesion underneath knee immobilizer, wound care on board - applying medihoney Disposition - Reaching out to family in [facility] - no response from family per case management - Social Work is following up - Cannot be discharged to residential due to functional status - Continue to work with PT - No new changes to pt status or plan - Palliative care consulted - pt agrees to DNR/DNI- cont current medical mgmt, rec for Silvadene to buttock <Jose Wiggins - Last Filed: 07/05/16 18:07> Objective - Vital Signs/Intake and Output Vital Signs (last 24 hours): Temp Pulse Resp BP Pulse Ox 97.8 F 69 18 123/73 97 07/05/16 08:00 07/05/16 08:00 07/05/16 08:00 07/05/16 08:00 07/05/16 08:00 Intake and Output: 07/05/16 07/05/16 06:59 18:59 Intake Total 480 Output Total 200 Balance -200 480 - Medications Medications: Current Medications Acetaminophen (Tylenol 325mg Tab) 650 mg PO Q6 PRN PRN Reason: Pain, Mild (1-3) Last Admin: 07/02/16 21:37 Dose: 650 mg Clotrimazole (Lotrimin 1%) 0 gm TOP BID [facility] Last Admin: 07/05/16 09:56 Dose: Not Given Docusate Sodium (Colace) 100 mg PO BID [facility] Last Admin: 06/30/16 09:13 Dose: Not Given Enoxaparin Sodium (Lovenox) 40 mg SC DAILY [facility] Last Admin: 07/05/16 09:55 Dose: 40 mg Famotidine (Pepcid) 20 mg PO BID [facility] Last Admin: 07/05/16 09:55 Dose: 20 mg Loperamide HCl (Imodium) 2 mg PO QID PRN PRN Reason: Diarrhea Last Admin: 07/01/16 20:22 Dose: 2 mg Magnesium Oxide (Mag-Ox) 400 mg PO BID [facility] Last Admin: 07/05/16 09:55 Dose: 400 mg Polyethylene Glycol (Miralax) 17 gm PO Q2D [facility] Last Admin: 06/29/16 10:44 Dose: Not Given Sodium Chloride (Sodium Chloride Tab) 1 gm PO DAILY@1330 [facility] Last Admin: 07/04/16 15:38 Dose: 1 gm Tamsulosin HCl (Flomax) 0.8 mg PO DAILY [facility] Last Admin: 07/05/16 09:55 Dose: 0.8 mg Tramadol HCl (Ultram) 25 mg PO TID PRN PRN Reason: Pain, moderate (4-7) Last Admin: 07/02/16 17:53 Dose: 25 mg - Labs Labs: 07/03/16 11:22 07/03/16 11:22 Attending/Attestation - Attestation I have personally seen and examined this patient.: Yes I have fully participated in the care of the patient.: Yes I have reviewed all pertinent clinical information, including history, physical exam and plan: Yes Notes (Text): 07/05/16 18:06 Patient was seen and examined at bedside with the resident Continue current management I discussed the plan of care with the resident and I agree with the above history and physical and assessment/plan but the resident.
[2016-07-05] MEDS: Magnesium Oxide 400 mg Tab UD PO SCH ×2 (09:55→17:39)
[2016-07-05] MEDS: Enoxaparin 40 mg Syringe SC SCH (09:55)
[2016-07-05] MEDS: Clotrimazole 1% Cream 15 GM TUBE TOP SCH ×2 (09:56→17:41)
--- NOTE | 2016-07-05 16:02 | CP.PCM.PN ---
<Kwame Sears - Last Filed: 07/05/16 16:04> Subjective - Date & Time of Evaluation Date of Evaluation: 07/05/16 Time of Evaluation: 07:50 - Subjective Subjective: PGY-1 Medicine Progress Note for Dr. Wiggins Patient seen and examined at bedside. No acute event overnight. Patient is complaining of same chronic Right hip and knee pain. Denies fever/chills, SOB, CP, palpitations, abdominal pain, n/v, constipation, incontinence. Objective - Vital Signs/Intake and Output Vital Signs (last 24 hours): Temp Pulse Resp BP Pulse Ox 97.9 F 82 20 114/69 96 07/05/16 15:55 07/05/16 15:55 07/05/16 15:55 07/05/16 15:55 07/05/16 15:55 Intake and Output: 07/05/16 07/05/16 06:59 18:59 Intake Total 480 Output Total 200 Balance -200 480 - Medications Medications: Current Medications Acetaminophen (Tylenol 325mg Tab) 650 mg PO Q6 PRN PRN Reason: Pain, Mild (1-3) Last Admin: 07/02/16 21:37 Dose: 650 mg Clotrimazole (Lotrimin 1%) 0 gm TOP BID [facility] Last Admin: 07/05/16 09:56 Dose: Not Given Docusate Sodium (Colace) 100 mg PO BID [facility] Last Admin: 06/30/16 09:13 Dose: Not Given Enoxaparin Sodium (Lovenox) 40 mg SC DAILY [facility] Last Admin: 07/05/16 09:55 Dose: 40 mg Famotidine (Pepcid) 20 mg PO BID [facility] Last Admin: 07/05/16 09:55 Dose: 20 mg Loperamide HCl (Imodium) 2 mg PO QID PRN PRN Reason: Diarrhea Last Admin: 07/01/16 20:22 Dose: 2 mg Magnesium Oxide (Mag-Ox) 400 mg PO BID [facility] Last Admin: 07/05/16 09:55 Dose: 400 mg Polyethylene Glycol (Miralax) 17 gm PO Q2D [facility] Last Admin: 06/29/16 10:44 Dose: Not Given Sodium Chloride (Sodium Chloride Tab) 1 gm PO DAILY@1330 [facility] Last Admin: 07/04/16 15:38 Dose: 1 gm Tamsulosin HCl (Flomax) 0.8 mg PO DAILY [facility] Last Admin: 07/05/16 09:55 Dose: 0.8 mg Tramadol HCl (Ultram) 25 mg PO TID PRN PRN Reason: Pain, moderate (4-7) Last Admin: 07/02/16 17:53 Dose: 25 mg - Labs Labs: 07/03/16 11:22 07/03/16 11:22 - Constitutional Appears: No Acute Distress - Head Exam Head Exam: ATRAUMATIC, NORMOCEPHALIC - Eye Exam Eye Exam: EOMI, Normal appearance Pupil Exam: PERRL - ENT Exam ENT Exam: Mucous Membranes Moist - Neck Exam Neck Exam: Normal Inspection - Respiratory Exam Respiratory Exam: Clear to Ausculation Bilateral, NORMAL BREATHING PATTERN - Cardiovascular Exam Cardiovascular Exam: REGULAR RHYTHM, +S1, +S2 - GI/Abdominal Exam GI & Abdominal Exam: Soft, Normal Bowel Sounds. absent: Tenderness - Extremities Exam Extremities Exam: Normal Capillary Refill, Tenderness - Back Exam Back Exam: absent: CVA tenderness (L), CVA tenderness (R) - Neurological Exam Neurological Exam: Alert, Awake, CN II-XII Intact, Oriented x3 - Psychiatric Exam Psychiatric exam: Normal Affect, Normal Mood - Skin Skin Exam: Dry, Intact, Normal Color, Warm Assessment and Plan - Assessment and Plan (Free Text) Plan: Fracture of tibia, proximal, right, closed; pain management and physical therapy -07/02: Cont PT -07/01: Ortho saw pt w/recs for progressive WB, PT/OT for strengthening and ambulation training daily, Encourage OOB VTE proph - 06/27: 8 weeks of immobilization and protected WB as per ortho xrays right knee show resolved area of sclerosis at presumed stress fracture right lateral tibial plateau (MRI contraindicated due to metallic implant in patella) PT notified - 06/25: ambulating with a walker -06/08- re-ordered PT eval - 06/08 - Stable - 05/31 - per ortho - Advance to 10% TTWB RLE, plan repeat xrays in 2 weeks and reassess, continue knee immobilizer, PT order updated - 05/29 - Cont to work with PT. Able to ambulate with walker, NWB on right LE. -05/27- cont current mgmt - 05/24 - continue with current management. - 05/20- ordered venous doppler right leg for swelling - results as above - 05/18- repeat xray with no significant change - 05/11- per ortho team: patient to remain non-weight bearing to right lower extremity - 05/09- right knee xrays ordered by orthopedics team- No acute fracture. Status post ORIF old patellar fracture No significant interval change compared to the prior examination Will follow up recommendations from orthopedics team - 05/05:Ortho Dr. Pino and Jayce West PA following- no orthopedic intervention indicated at this time, strict NWB, PT/OT - Impaction/insufficiency fracture, lateral aspect proximal tibia, non operative , treated with strict NWB and immobilization - At least 6 weeks old by imaging - Tylenol 650 mg PO Q6 PRN mild pain - Tramadol 25mg TID pRN - Daily physical therapy - Nonweight bearing on R leg - L knee x-ray: severe osteopenia. Sclerotic changes about the posterior proximal tibia may relate to a sclerotic healing response of a prior stress fracture here. no tibial plateau depressed fracture. The sclerosis is perceived on the prior 04/21 study; no interval pathology appreciated between 2 exams. If symptoms worsen consider MRI. 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 Gait Instability; will continue with PT/OT - 06/27: 8 weeks of immobilization and protected WB as per ortho xrays right knee show resolved area of sclerosis at presumed stress fracture right lateral tibial plateau (MRI contraindicated due to metallic implant in patella) PT notified - 06/25: ambulating with a walker -06/09: re-ordered PT eval for continued therapy - 06/02: complains of pain on plantar surface of foot - likely plantar fasciitis , will have PT work on it - Patient uses walker- NWB at this time RLE - not safe for discharge to group home - Chronic RLE pain (since admission) due to slippage of mechanical hardware in his leg from prior procedure - R knee immobilizer in place and patient on strict NWB status - Xray 04/03: superior migration of prosthesis. sclerosi about right acetabulum - daily physical therapy - PT 05/05: decline in transfers due to limitation from right hip and knee pain. patient still able to tolerate hallway ambulation, no episode of orthostatic hypotension post gait. recommending room/hallway ambulation w/ nursing for AM/ PM care or toileting. - PT 05/09: decline in function limited by persisting right groin/ hip and knee pain. patient still recommended for daily out of bed during am/pm care. cleared for ambulation in the room with standard walker non weight bearing right lower extremity - PT 05/10: mild decline in transfers due to pain in right knee and hip. NWB to RLE. Patient with episode of hypotension post ambulation- no syncope. - 05/16: discussed with PT. Patient function declining due to immobility. Patient needs to go from bed to chair. Patient should also be ambulating to the bathroom with assist. Patient becomes hypotensive with walking. - 05/17: patient assisted to chair. discussed with nursing the need for ambulation to and from bathroom with assistance as well as transfer from bed to chair Abdominal Pain-resolved CT abd/pelvis with PO contrast: limited study, bowel containing left inguinal hernia without evidence of obstruction. Smaller fat and vessel containing right inguinal hernia without evidence of obstruction; anterior right aspect of the urinary bladderalso extends into hernia defect. Cholelithiasis. Moderate constipation. Enlarged prostate gland. Right hip arhtroplasty. Right protrusion acetabulum. Sclerosis involving osseous structures, possibly reactive (see full report). - 06/25: slight abdominal pain but no constipation and good bewl sounds. Monitor. - 06/09- no abdominal pain reported, moving bowels - 05/24: less abd pain, reports BMs - 05/22: continues to complain of straining, will give one time miralax dose - 05/21: restart colace 100mg BID as patient straining to have BM - patient with multiple soft stools- will stop miralax for now - patient has been complaining of abdominal pain since admission - Colace 100mg PO BID - Dulcolax every 3 days - Inguinal hernia with unobstructed bowel loop involvement; protruded 04/18 due to straining on toilet. - 05/03/16 B/L inguinal hernias reduced today without incidence - Abdominal US 04/01: Gallstones, no acute cholecystitis, no hydronephrosis. trace ascites (see full report) - Abd/pelv CT 03/11: mod b/l pleural effusions and assoc consolidations; tiny probably gallstones within the gallbladder; small to moderate hiatal hernia; R inguinal hernia which contains small loops of bowel, likely small bowel- no evidence of obstruction as oral contrast is noted within R colon. No definite free air, however evaluation for pneumoperitoneum is suboptimal. Moderate to severe constipation with questionable impaction. Prostate gland 4.1cm x 4.6cm. Urinary bladder appears unremarkable. Small amount of fluid within a right inguinal hernia. Sclerosis of right iliac wing. Extensive anasarca. BPH - Flomax 0.8 mg PO daily - Urology Dr. Hughes on board - will f/u with recs concerning inpatient TURP - 05/18: Pyridium 200 mg PO TIDPC- discontinued Leg swelling - 07/02: No changes - 06/09: No changes - 05/23: will order left leg US to r/o DVT - negative for DVT or any other abnormalities - 05/20: venous doppler ordered - read as: No evidence of deep or superficial vein thrombosis of the right lower extremity with excellent venous flow. Normal valve function noted of the right side. Normal venous flow noted in the left common femoral vein. Facial rash - resembles seborrheic dermatitis, patient encouraged to moisturize - ESR 32 - CRP 1.51 - RA- negative - A&D ointment to face Orthostasis- Resolved - 05/21: IV fluids- NS at 100cc/h - stopped - 05/16: Per PT, patient becomes hypotensive with exertion. adding sodium chloride tablets 1g daily - 05/05: -Supine BP: 114/71, HR 75 -Sitting BP: 113/71, HR 90 -Standing BP: 116/72, HR 94 Anemia- resolved Hgb stable - 06/26: Hgb 12.4- improved - 06/19: Hgb 11.5 - 06/12 - Hgb 10.4, improving - 05/30: Hgb trending up - 05/26: may have a component of Fe deficiency, will replete - 05/25: Hgb still low, will get labs with Iron panel tomorrow - 05/22: Hgb 8.7, repeated and was 9.5 - 05/15: hgb 11.0 - chronic - monitor with weekly labs Aneurysmal dilatation of ascending thoracic aorta; Currently 4.5 cm. Patient needs repeat Ct imaging every 6 months - last CT scan in 03/2016, should be monitored in September, Onychomycosis;chronic and improving - patient had aseptic debridement of toenails x 10 - clotrimazole cream to be applied to feet b/l BID - podiatry following Sacral decubitus- resolved - 07/02- wound care PRN - 05/17- sacrum examined- no sacral ulcers noted - 05/16: patient needs to go from bed to chair to prevent ulcers from re-forming - 04/19: exam revealed a previously healed decubitus ulcer of right buttocks. Sacral exam was clear. - Wound care following - recommending medihoney covered with bordered telfa dressing to right lower buttocks stage 2 pressure ulcer daily. - Pt is OOB to chair with help from PT daily - Order placed for turning patient Q2H History of Urinary Tract Infection - 07/02: No urinary complaints - 06/25: No urinary complaints - 06/09: No urinary complaints - 05/20: ordered repeat urine culture for urinary frequency - no growth (Final) - 05/17: urine culture negative - 05/16: + nitrates, 4 RBC, occasional bacteria. - urine culture 05/03- no growth - UA 05/05: +nitrates, occasional bacteria Syncopal Episode x1- resolved - 05/04/16 CTA- negative for PE (underlying atelectasis new findings compared to the prior study 03/20/2016.) Prophylactic Measure - Labs weekly on Sunday - Lovenox 40mg SC daily - Pepcid 20mg PO BID - A and D ointment TOP Q*H - Patient is homeless. Used to stay with friend, but no longer welcome there. Goal is to walk with cane so he can go to a group home (will not qualify with a walker) - patient will need to work with PT frequently - right calf with dark skin lesion underneath knee immobilizer, wound care on board - applying medihoney Disposition - Reaching out to family in [facility] - no response from family per case management - Social Work is following up - Cannot be discharged to group home due to functional status - Continue to work with PT - No new changes to pt status or plan - Palliative care consulted - pt agrees to DNR/DNI- cont current medical mgmt, rec for Silvadene to buttock <Jose Wiggins - Last Filed: 07/05/16 18:21> Objective - Vital Signs/Intake and Output Vital Signs (last 24 hours): Temp Pulse Resp BP Pulse Ox 97.9 F 82 20 114/69 96 07/05/16 15:55 07/05/16 15:55 07/05/16 15:55 07/05/16 15:55 07/05/16 15:55 Intake and Output: 07/05/16 07/05/16 06:59 18:59 Intake Total 480 Output Total 200 Balance -200 480 - Medications Medications: Current Medications Acetaminophen (Tylenol 325mg Tab) 650 mg PO Q6 PRN PRN Reason: Pain, Mild (1-3) Last Admin: 07/02/16 21:37 Dose: 650 mg Clotrimazole (Lotrimin 1%) 0 gm TOP BID [facility] Last Admin: 07/05/16 17:41 Dose: Not Given Docusate Sodium (Colace) 100 mg PO BID [facility] Last Admin: 06/30/16 09:13 Dose: Not Given Enoxaparin Sodium (Lovenox) 40 mg SC DAILY [facility] Last Admin: 07/05/16 09:55 Dose: 40 mg Famotidine (Pepcid) 20 mg PO BID [facility] Last Admin: 07/05/16 17:39 Dose: 20 mg Loperamide HCl (Imodium) 2 mg PO QID PRN PRN Reason: Diarrhea Last Admin: 07/01/16 20:22 Dose: 2 mg Magnesium Oxide (Mag-Ox) 400 mg PO BID [facility] Last Admin: 07/05/16 17:39 Dose: 400 mg Polyethylene Glycol (Miralax) 17 gm PO Q2D [facility] Last Admin: 06/29/16 10:44 Dose: Not Given Sodium Chloride (Sodium Chloride Tab) 1 gm PO DAILY@1330 [facility] Last Admin: 07/04/16 15:38 Dose: 1 gm Tamsulosin HCl (Flomax) 0.8 mg PO DAILY [facility] Last Admin: 07/05/16 09:55 Dose: 0.8 mg Tramadol HCl (Ultram) 25 mg PO TID PRN PRN Reason: Pain, moderate (4-7) Last Admin: 07/02/16 17:53 Dose: 25 mg - Labs Labs: 07/03/16 11:22 07/03/16 11:22 Attending/Attestation - Attestation I have personally seen and examined this patient.: Yes I have fully participated in the care of the patient.: Yes I have reviewed all pertinent clinical information, including history, physical exam and plan: Yes Notes (Text): 07/05/16 18:21 Patient was seen and examined at bedside Continue current management Continue daily physical therapy I discussed the plan of care with the resident and I agree with the above history and physical and assessment/plan but the resident.
[2016-07-06] MEDS: Magnesium Oxide 400 mg Tab UD PO SCH ×2 (09:35→17:41)
[2016-07-06] MEDS: Enoxaparin 40 mg Syringe SC SCH (09:36)
[2016-07-06] MEDS: Clotrimazole 1% Cream 15 GM TUBE TOP SCH (09:37)
--- NOTE | 2016-07-06 13:21 | CP.PCM.PN ---
<Kwame Sears - Last Filed: 07/06/16 13:18> Subjective - Date & Time of Evaluation Date of Evaluation: 07/06/16 Time of Evaluation: 07:05 - Subjective Subjective: PGY-1 Medicine Progress Note for Dr. Wiggins Patient seen and examined at bedside. No acute event overnight. No changes in chronic Right hip and knee pain. Denies fever/chills, SOB, CP, palpitations, abdominal pain, n/v, constipation, incontinence. Objective - Vital Signs/Intake and Output Vital Signs (last 24 hours): Temp Pulse Resp BP Pulse Ox 98.2 F 69 18 112/67 97 07/06/16 08:21 07/06/16 08:21 07/06/16 08:21 07/06/16 08:21 07/06/16 08:21 - Medications Medications: Current Medications Acetaminophen (Tylenol 325mg Tab) 650 mg PO Q6 PRN PRN Reason: Pain, Mild (1-3) Last Admin: 07/02/16 21:37 Dose: 650 mg Clotrimazole (Lotrimin 1%) 0 gm TOP BID [facility] Last Admin: 07/06/16 09:37 Dose: Not Given Docusate Sodium (Colace) 100 mg PO BID [facility] Last Admin: 06/30/16 09:13 Dose: Not Given Enoxaparin Sodium (Lovenox) 40 mg SC DAILY [facility] Last Admin: 07/06/16 09:36 Dose: 40 mg Famotidine (Pepcid) 20 mg PO BID [facility] Last Admin: 07/06/16 09:35 Dose: 20 mg Loperamide HCl (Imodium) 2 mg PO QID PRN PRN Reason: Diarrhea Last Admin: 07/01/16 20:22 Dose: 2 mg Magnesium Oxide (Mag-Ox) 400 mg PO BID [facility] Last Admin: 07/06/16 09:35 Dose: 400 mg Polyethylene Glycol (Miralax) 17 gm PO Q2D [facility] Last Admin: 06/29/16 10:44 Dose: Not Given Sodium Chloride (Sodium Chloride Tab) 1 gm PO DAILY@1330 [facility] Last Admin: 07/04/16 15:38 Dose: 1 gm Tamsulosin HCl (Flomax) 0.8 mg PO DAILY [facility] Last Admin: 07/06/16 09:36 Dose: 0.8 mg Tramadol HCl (Ultram) 25 mg PO TID PRN PRN Reason: Pain, moderate (4-7) Last Admin: 07/02/16 17:53 Dose: 25 mg - Labs Labs: 07/03/16 11:22 07/03/16 11:22 - Constitutional Appears: No Acute Distress, Cachectic - Head Exam Head Exam: ATRAUMATIC, NORMOCEPHALIC - Eye Exam Eye Exam: EOMI, Normal appearance Pupil Exam: PERRL - ENT Exam ENT Exam: Mucous Membranes Moist - Neck Exam Neck Exam: Normal Inspection - Respiratory Exam Respiratory Exam: Clear to Ausculation Bilateral, NORMAL BREATHING PATTERN - Cardiovascular Exam Cardiovascular Exam: REGULAR RHYTHM, +S1, +S2 - GI/Abdominal Exam GI & Abdominal Exam: Soft, Normal Bowel Sounds. absent: Tenderness - Extremities Exam Extremities Exam: Normal Capillary Refill, Tenderness. absent: Calf Tenderness , Pedal Edema Additional comments: bilateral ingunial hernias - Back Exam Back Exam: absent: CVA tenderness (L), CVA tenderness (R) - Neurological Exam Neurological Exam: Alert, Awake, CN II-XII Intact, Oriented x3 - Psychiatric Exam Psychiatric exam: Normal Affect, Normal Mood - Skin Skin Exam: Dry, Intact, Warm Additional comments: chronic pigmentations changes in LEs Assessment and Plan - Assessment and Plan (Free Text) Plan: Fracture of tibia, proximal, right, closed; pain management and physical therapy -07/06: Cont Physical therapy and f/u ortho recommendations - trying to get a facility to accept patient with ambulatory cane. -07/01: Ortho saw pt w/recs for progressive WB, PT/OT for strengthening and ambulation training daily, Encourage OOB VTE proph - 06/27: 8 weeks of immobilization and protected WB as per ortho xrays right knee show resolved area of sclerosis at presumed stress fracture right lateral tibial plateau (MRI contraindicated due to metallic implant in patella) PT notified - 06/25: ambulating with a walker -06/08- re-ordered PT eval - 06/08 - Stable - 05/31 - per ortho - Advance to 10% TTWB RLE, plan repeat xrays in 2 weeks and reassess, continue knee immobilizer, PT order updated - 05/29 - Cont to work with PT. Able to ambulate with walker, NWB on right LE. -05/27- cont current mgmt - 05/24 - continue with current management. - 05/20- ordered venous doppler right leg for swelling - results as above - 05/18- repeat xray with no significant change - 05/11- per ortho team: patient to remain non-weight bearing to right lower extremity - 05/09- right knee xrays ordered by orthopedics team- No acute fracture. Status post ORIF old patellar fracture No significant interval change compared to the prior examination Will follow up recommendations from orthopedics team - 05/05:Ortho Dr. Pino and Jayce West PA following- no orthopedic intervention indicated at this time, strict NWB, PT/OT - Impaction/insufficiency fracture, lateral aspect proximal tibia, non operative , treated with strict NWB and immobilization - At least 6 weeks old by imaging - Tylenol 650 mg PO Q6 PRN mild pain - Tramadol 25mg TID pRN - Daily physical therapy - Nonweight bearing on R leg - L knee x-ray: severe osteopenia. Sclerotic changes about the posterior proximal tibia may relate to a sclerotic healing response of a prior stress fracture here. no tibial plateau depressed fracture. The sclerosis is perceived on the prior 04/21 study; no interval pathology appreciated between 2 exams. If symptoms worsen consider MRI. 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 Gait Instability; will continue with PT/OT - 06/27: 8 weeks of immobilization and protected WB as per ortho xrays right knee show resolved area of sclerosis at presumed stress fracture right lateral tibial plateau (MRI contraindicated due to metallic implant in patella) PT notified - 06/25: ambulating with a walker -06/09: re-ordered PT eval for continued therapy - 06/02: complains of pain on plantar surface of foot - likely plantar fasciitis , will have PT work on it - Patient uses walker- NWB at this time RLE - not safe for discharge to [facility] - Chronic RLE pain (since admission) due to slippage of mechanical hardware in his leg from prior procedure - R knee immobilizer in place and patient on strict NWB status - Xray 04/03: superior migration of prosthesis. sclerosi about right acetabulum - daily physical therapy - PT 05/05: decline in transfers due to limitation from right hip and knee pain. patient still able to tolerate hallway ambulation, no episode of orthostatic hypotension post gait. recommending room/hallway ambulation w/ nursing for AM/ PM care or toileting. - PT 05/09: decline in function limited by persisting right groin/ hip and knee pain. patient still recommended for daily out of bed during am/pm care. cleared for ambulation in the room with standard walker non weight bearing right lower extremity - PT 05/10: mild decline in transfers due to pain in right knee and hip. NWB to RLE. Patient with episode of hypotension post ambulation- no syncope. - 05/16: discussed with PT. Patient function declining due to immobility. Patient needs to go from bed to chair. Patient should also be ambulating to the bathroom with assist. Patient becomes hypotensive with walking. - 05/17: patient assisted to chair. discussed with nursing the need for ambulation to and from bathroom with assistance as well as transfer from bed to chair Abdominal Pain-resolved CT abd/pelvis with PO contrast: limited study, bowel containing left inguinal hernia without evidence of obstruction. Smaller fat and vessel containing right inguinal hernia without evidence of obstruction; anterior right aspect of the urinary bladderalso extends into hernia defect. Cholelithiasis. Moderate constipation. Enlarged prostate gland. Right hip arhtroplasty. Right protrusion acetabulum. Sclerosis involving osseous structures, possibly reactive (see full report). - 06/25: slight abdominal pain but no constipation and good bewl sounds. Monitor. - 06/09- no abdominal pain reported, moving bowels - 05/24: less abd pain, reports BMs - 05/22: continues to complain of straining, will give one time miralax dose - 05/21: restart colace 100mg BID as patient straining to have BM - patient with multiple soft stools- will stop miralax for now - patient has been complaining of abdominal pain since admission - Colace 100mg PO BID - Dulcolax every 3 days - Inguinal hernia with unobstructed bowel loop involvement; protruded 04/18 due to straining on toilet. - 05/03/16 B/L inguinal hernias reduced today without incidence - Abdominal US 04/01: Gallstones, no acute cholecystitis, no hydronephrosis. trace ascites (see full report) - Abd/pelv CT 03/11: mod b/l pleural effusions and assoc consolidations; tiny probably gallstones within the gallbladder; small to moderate hiatal hernia; R inguinal hernia which contains small loops of bowel, likely small bowel- no evidence of obstruction as oral contrast is noted within R colon. No definite free air, however evaluation for pneumoperitoneum is suboptimal. Moderate to severe constipation with questionable impaction. Prostate gland 4.1cm x 4.6cm. Urinary bladder appears unremarkable. Small amount of fluid within a right inguinal hernia. Sclerosis of right iliac wing. Extensive anasarca. BPH - Flomax 0.8 mg PO daily - Urology Dr. Hughes on board - will f/u with recs concerning inpatient TURP - 05/18: Pyridium 200 mg PO TIDPC- discontinued Leg swelling - 07/02: No changes - 06/09: No changes - 05/23: will order left leg US to r/o DVT - negative for DVT or any other abnormalities - 05/20: venous doppler ordered - read as: No evidence of deep or superficial vein thrombosis of the right lower extremity with excellent venous flow. Normal valve function noted of the right side. Normal venous flow noted in the left common femoral vein. Facial rash - resembles seborrheic dermatitis, patient encouraged to moisturize - ESR 32 - CRP 1.51 - RA- negative - A&D ointment to face Orthostasis- Resolved - 05/21: IV fluids- NS at 100cc/h - stopped - 05/16: Per PT, patient becomes hypotensive with exertion. adding sodium chloride tablets 1g daily - 05/05: -Supine BP: 114/71, HR 75 -Sitting BP: 113/71, HR 90 -Standing BP: 116/72, HR 94 Anemia- resolved Hgb stable - 06/26: Hgb 12.4- improved - 06/19: Hgb 11.5 - 06/12 - Hgb 10.4, improving - 05/30: Hgb trending up - 05/26: may have a component of Fe deficiency, will replete - 05/25: Hgb still low, will get labs with Iron panel tomorrow - 05/22: Hgb 8.7, repeated and was 9.5 - 05/15: hgb 11.0 - chronic - monitor with weekly labs Aneurysmal dilatation of ascending thoracic aorta; Currently 4.5 cm. Patient needs repeat Ct imaging every 6 months - last CT scan in 03/2016, should be monitored in September, Onychomycosis;chronic and improving - patient had aseptic debridement of toenails x 10 - clotrimazole cream to be applied to feet b/l BID - podiatry following Sacral decubitus- resolved - 07/02- wound care PRN - 05/17- sacrum examined- no sacral ulcers noted - 05/16: patient needs to go from bed to chair to prevent ulcers from re-forming - 04/19: exam revealed a previously healed decubitus ulcer of right buttocks. Sacral exam was clear. - Wound care following - recommending medihoney covered with bordered telfa dressing to right lower buttocks stage 2 pressure ulcer daily. - Pt is OOB to chair with help from PT daily - Order placed for turning patient Q2H History of Urinary Tract Infection - 07/02: No urinary complaints - 06/25: No urinary complaints - 06/09: No urinary complaints - 05/20: ordered repeat urine culture for urinary frequency - no growth (Final) - 05/17: urine culture negative - 05/16: + nitrates, 4 RBC, occasional bacteria. - urine culture 05/03- no growth - UA 05/05: +nitrates, occasional bacteria Syncopal Episode x1- resolved - 05/04/16 CTA- negative for PE (underlying atelectasis new findings compared to the prior study 03/20/2016.) Prophylactic Measure - Labs weekly on Sunday - Lovenox 40mg SC daily - Pepcid 20mg PO BID - A and D ointment TOP Q*H - Patient is homeless. Used to stay with friend, but no longer welcome there. Goal is to walk with cane so he can go to a [facility] (will not qualify with a walker) - patient will need to work with PT frequently - right calf with dark skin lesion underneath knee immobilizer, wound care on board - applying medihoney Disposition - Reaching out to family in [facility] - no response from family per case management - Social Work is following up - Cannot be discharged to [facility] due to functional status - Continue to work with PT - No new changes to pt status or plan - Palliative care consulted - pt agrees to DNR/DNI- cont current medical mgmt, rec for Silvadene to buttock <Jose Wiggins - Last Filed: 07/06/16 15:38> Objective - Vital Signs/Intake and Output Vital Signs (last 24 hours): Temp Pulse Resp BP Pulse Ox 97.8 F 76 20 105/65 98 07/06/16 15:33 07/06/16 15:33 07/06/16 15:33 07/06/16 15:33 07/06/16 15:33 - Medications Medications: Current Medications Acetaminophen (Tylenol 325mg Tab) 650 mg PO Q6 PRN PRN Reason: Pain, Mild (1-3) Last Admin: 07/02/16 21:37 Dose: 650 mg Docusate Sodium (Colace) 100 mg PO BID [facility] Last Admin: 06/30/16 09:13 Dose: Not Given Enoxaparin Sodium (Lovenox) 40 mg SC DAILY [facility] Last Admin: 07/06/16 09:36 Dose: 40 mg Famotidine (Pepcid) 20 mg PO BID [facility] Last Admin: 07/06/16 09:35 Dose: 20 mg Loperamide HCl (Imodium) 2 mg PO QID PRN PRN Reason: Diarrhea Last Admin: 07/01/16 20:22 Dose: 2 mg Magnesium Oxide (Mag-Ox) 400 mg PO BID [facility] Last Admin: 07/06/16 09:35 Dose: 400 mg Polyethylene Glycol (Miralax) 17 gm PO Q2D [facility] Last Admin: 06/29/16 10:44 Dose: Not Given Sodium Chloride (Sodium Chloride Tab) 1 gm PO DAILY@1330 [facility] Last Admin: 07/06/16 14:20 Dose: 1 gm Tamsulosin HCl (Flomax) 0.8 mg PO DAILY [facility] Last Admin: 07/06/16 09:36 Dose: 0.8 mg Tramadol HCl (Ultram) 25 mg PO TID PRN PRN Reason: Pain, moderate (4-7) Last Admin: 07/06/16 14:23 Dose: 25 mg - Labs Labs: 07/03/16 11:22 07/03/16 11:22 Attending/Attestation - Attestation I have personally seen and examined this patient.: Yes I have fully participated in the care of the patient.: Yes I have reviewed all pertinent clinical information, including history, physical exam and plan: Yes Notes (Text): 07/06/16 15:36 Patient was seen and examined at bedside Continue physical therapy daily Continue current management Patient is awaiting placement Discussed with the resident/case management.
[2016-07-06] MEDS: Tramadol 25 mg PO PRN (14:23)
--- NOTE | 2016-07-07 07:26 | CP.PCM.PN ---
<Shabana Samano - Last Filed: 07/07/16 21:57> Subjective - Date & Time of Evaluation Date of Evaluation: 07/07/16 Time of Evaluation: 09:11 - Subjective Subjective: PGY 1 Medicine Note - Dr. Wiggins's service Pt seen and examined in no acute distress. Patient continues to complain of right thigh pain. Patient denies subjective fevers or chills, nausea, vomiting, chest pain, palpitations, headaches or diarrhea at this time. Objective - Vital Signs/Intake and Output Vital Signs (last 24 hours): Temp Pulse Resp BP Pulse Ox 97.7 F 76 20 102/63 96 07/07/16 00:00 07/07/16 00:00 07/07/16 00:00 07/07/16 00:00 07/07/16 00:00 - Medications Medications: Current Medications Acetaminophen (Tylenol 325mg Tab) 650 mg PO Q6 PRN PRN Reason: Pain, Mild (1-3) Last Admin: 07/02/16 21:37 Dose: 650 mg Docusate Sodium (Colace) 100 mg PO BID [facility] Last Admin: 06/30/16 09:13 Dose: Not Given Enoxaparin Sodium (Lovenox) 40 mg SC DAILY [facility] Last Admin: 07/06/16 09:36 Dose: 40 mg Famotidine (Pepcid) 20 mg PO BID [facility] Last Admin: 07/06/16 17:41 Dose: 20 mg Loperamide HCl (Imodium) 2 mg PO QID PRN PRN Reason: Diarrhea Last Admin: 07/01/16 20:22 Dose: 2 mg Magnesium Oxide (Mag-Ox) 400 mg PO BID [facility] Last Admin: 07/06/16 17:41 Dose: 400 mg Polyethylene Glycol (Miralax) 17 gm PO Q2D [facility] Last Admin: 06/29/16 10:44 Dose: Not Given Sodium Chloride (Sodium Chloride Tab) 1 gm PO DAILY@1330 [facility] Last Admin: 07/06/16 14:20 Dose: 1 gm Tamsulosin HCl (Flomax) 0.8 mg PO DAILY [facility] Last Admin: 07/06/16 09:36 Dose: 0.8 mg Tramadol HCl (Ultram) 25 mg PO TID PRN PRN Reason: Pain, moderate (4-7) Last Admin: 07/06/16 14:23 Dose: 25 mg - Labs Labs: 07/03/16 11:22 07/03/16 11:22 - Constitutional Appears: Non-toxic, No Acute Distress - Head Exam Head Exam: ATRAUMATIC, NORMAL INSPECTION, NORMOCEPHALIC - Eye Exam Eye Exam: EOMI, Normal appearance, PERRL Pupil Exam: NORMAL ACCOMODATION, PERRL - ENT Exam ENT Exam: Mucous Membranes Moist - Neck Exam Neck Exam: Full ROM - Respiratory Exam Respiratory Exam: NORMAL BREATHING PATTERN. absent: Wheezes - Cardiovascular Exam Cardiovascular Exam: +S1, +S2 - GI/Abdominal Exam GI & Abdominal Exam: Soft, Normal Bowel Sounds. absent: Tenderness - Extremities Exam Extremities Exam: Full ROM, Normal Capillary Refill. absent: Calf Tenderness Additional comments: LLE some swelling noted in comparison to right- nontender - Back Exam Additional comments: dec ROM - Neurological Exam Neurological Exam: Alert, Awake, CN II-XII Intact, Oriented x3 - Psychiatric Exam Psychiatric exam: Flat Affect, Normal Affect, Normal Mood - Skin Skin Exam: Dry, Normal Color, Warm Assessment and Plan - Assessment and Plan (Free Text) Assessment: Fracture of tibia, proximal, right, closed; pain management and physical therapy -07/07: Cont Physical therapy and f/u ortho recommendations - trying to get a facility to accept patient with ambulatory cane. - Tylenol 650 mg PO Q6 PRN mild pain - Tramadol 25mg TID pRN - Daily physical therapy - Nonweight bearing on R leg - L knee x-ray: severe osteopenia. Sclerotic changes about the posterior proximal tibia may relate to a sclerotic healing response of a prior stress fracture here. no tibial plateau depressed fracture. The sclerosis is perceived on the prior 04/21 study; no interval pathology appreciated between 2 exams. If symptoms worsen consider MRI. 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 Smaller fat and vessel containing right inguinal hernia without evidence of obstruction; anterior right aspect of the urinary bladderalso extends into hernia defect. Cholelithiasis. Moderate constipation. Enlarged prostate gland. Right hip arhtroplasty. Right protrusion acetabulum. Sclerosis involving osseous structures, possibly reactive (see full report). - patient has been complaining of intermittent abdominal pain since admission - Colace 100mg PO BID - Dulcolax every 3 days - Inguinal hernia with unobstructed bowel loop involvement; protruded 04/18 due to straining on toilet. - 05/03/16 B/L inguinal hernias reduced today without incidence - Abdominal US 04/01: Gallstones, no acute cholecystitis, no hydronephrosis. trace ascites (see full report) - Abd/pelv CT 03/11: mod b/l pleural effusions and assoc consolidations; tiny probably gallstones within the gallbladder; small to moderate hiatal hernia; R inguinal hernia which contains small loops of bowel, likely small bowel- no evidence of obstruction as oral contrast is noted within R colon. No definite free air, however evaluation for pneumoperitoneum is suboptimal. Moderate to severe constipation with questionable impaction. Prostate gland 4.1cm x 4.6cm. Urinary bladder appears unremarkable. Small amount of fluid within a right inguinal hernia. Sclerosis of right iliac wing. Extensive anasarca. BPH - Flomax 0.8 mg PO daily - Urology Dr. Hughes on board - will f/u with recs concerning inpatient TURP Unilateral Leg swelling - 07/02: No changes - 06/09: No changes - 05/23: will order left leg US to r/o DVT - negative for DVT or any other abnormalities - 05/20: venous doppler ordered - read as: No evidence of deep or superficial vein thrombosis of the right lower extremity with excellent venous flow. Normal valve function noted of the right side. Normal venous flow noted in the left common femoral vein. Facial rash - resembles seborrheic dermatitis, patient encouraged to moisturize - ESR 32 - CRP 1.51 - RA- negative - A&D ointment to face Orthostasis- Resolved - 05/21: IV fluids- NS at 100cc/h - stopped - 05/16: Per PT, patient becomes hypotensive with exertion. adding sodium chloride tablets 1g daily - 05/05: -Supine BP: 114/71, HR 75 -Sitting BP: 113/71, HR 90 -Standing BP: 116/72, HR 94 Anemia- resolved Hgb stable weekly labs Aneurysmal dilatation of ascending thoracic aorta; Currently 4.5 cm. Patient needs repeat Ct imaging every 6 months - last CT scan in 03/2016, should be monitored in September, Onychomycosis;chronic and improving - patient had aseptic debridement of toenails x 10 - clotrimazole cream to be applied to feet b/l BID - podiatry following Sacral decubitus- resolved - Wound care following - recommending medihoney covered with bordered telfa dressing to right lower buttocks stage 2 pressure ulcer daily. - Pt is OOB to chair with help from PT daily - Order placed for turning patient Q2H History of Urinary Tract Infection Continue to monitor Most recent 06/22 Currently asympto Prophylactic Measure - Labs weekly on Sunday - Lovenox 40mg SC daily - Pepcid 20mg PO BID - A and D ointment TOP Q*H - Patient is homeless. Used to stay with friend, but no longer welcome there. Goal is to walk with cane so he can go to a [facility] (will not qualify with a walker) - patient will need to work with PT frequently - right calf with dark skin lesion underneath knee immobilizer, wound care on board - applying medihoney Disposition - Reaching out to family in [facility] - no response from family per case management - Social Work is following up - Cannot be discharged to [facility] due to functional status - Continue to work with PT - No new changes to pt status or plan - Palliative care consulted - pt agrees to DNR/DNI- cont current medical mgmt, rec for Silvadene to buttock <Jose Wiggins - Last Filed: 07/08/16 08:49> Objective - Vital Signs/Intake and Output Vital Signs (last 24 hours): Temp Pulse Resp BP Pulse Ox 97 F L 77 20 130/80 100 07/08/16 07:00 07/08/16 07:00 07/08/16 07:00 07/08/16 07:00 07/08/16 07:00 Intake and Output: 07/08/16 07/08/16 06:59 18:59 Output Total 300 Balance -300 - Medications Medications: Current Medications Acetaminophen (Tylenol 325mg Tab) 650 mg PO Q6 PRN PRN Reason: Pain, Mild (1-3) Last Admin: 07/02/16 21:37 Dose: 650 mg Docusate Sodium (Colace) 100 mg PO BID [facility] Last Admin: 06/30/16 09:13 Dose: Not Given Enoxaparin Sodium (Lovenox) 40 mg SC DAILY [facility] Last Admin: 07/07/16 09:26 Dose: 40 mg Famotidine (Pepcid) 20 mg PO BID [facility] Last Admin: 07/07/16 17:44 Dose: 20 mg Loperamide HCl (Imodium) 2 mg PO QID PRN PRN Reason: Diarrhea Last Admin: 07/01/16 20:22 Dose: 2 mg Magnesium Oxide (Mag-Ox) 400 mg PO BID [facility] Last Admin: 07/07/16 17:43 Dose: 400 mg Polyethylene Glycol (Miralax) 17 gm PO Q2D [facility] Last Admin: 06/29/16 10:44 Dose: Not Given Sodium Chloride (Sodium Chloride Tab) 1 gm PO DAILY@1330 [facility] Last Admin: 07/07/16 12:53 Dose: 1 gm Tamsulosin HCl (Flomax) 0.8 mg PO DAILY [facility] Last Admin: 07/07/16 09:26 Dose: 0.8 mg Tramadol HCl (Ultram) 25 mg PO TID PRN PRN Reason: Pain, moderate (4-7) Last Admin: 07/07/16 17:42 Dose: 25 mg - Labs Labs: 07/03/16 11:22 07/03/16 11:22 Attending/Attestation - Attestation I have personally seen and examined this patient.: Yes I have fully participated in the care of the patient.: Yes I have reviewed all pertinent clinical information, including history, physical exam and plan: Yes Notes (Text): 07/08/16 08:48 Patient was seen and examined at bedside with the resident There is no change in clinical condition Continue current management I discussed the plan of care with the resident and I agree with the above history and physical and assessment/plan by the resident.
[2016-07-07] MEDS: Magnesium Oxide 400 mg Tab UD PO SCH ×2 (09:26→17:43)
[2016-07-07] MEDS: Enoxaparin 40 mg Syringe SC SCH (09:26)
[2016-07-07] MEDS: Tramadol 25 mg PO PRN (17:42)
--- NOTE | 2016-07-08 01:11 | CP.PCM.PN ---
<Kwame Sears - Last Filed: 07/08/16 01:11> Subjective - Date & Time of Evaluation Date of Evaluation: 07/08/16 Time of Evaluation: 01:11 - Subjective Subjective: PGY-1 Medicine Progress Note for Dr. Wiggins's service Patient seen and examined at bedside. No acute event overnight. Patient resting in bed comfortably. Patient continues to complain of right lower extremity pain. Denies fevers/chills, abd pain, nausea, vomiting, diarrhea, chest pain, palpitations. Objective - Vital Signs/Intake and Output Vital Signs (last 24 hours): Temp Pulse Resp BP Pulse Ox 98.9 F 87 17 145/85 99 07/07/16 22:00 07/07/16 22:00 07/07/16 22:00 07/07/16 22:00 07/07/16 22:00 Intake and Output: 07/07/16 07/08/16 18:59 06:59 Intake Total 350 Output Total 75 Balance 275 - Medications Medications: Current Medications Acetaminophen (Tylenol 325mg Tab) 650 mg PO Q6 PRN PRN Reason: Pain, Mild (1-3) Last Admin: 07/02/16 21:37 Dose: 650 mg Docusate Sodium (Colace) 100 mg PO BID [facility] Last Admin: 06/30/16 09:13 Dose: Not Given Enoxaparin Sodium (Lovenox) 40 mg SC DAILY [facility] Last Admin: 07/07/16 09:26 Dose: 40 mg Famotidine (Pepcid) 20 mg PO BID [facility] Last Admin: 07/07/16 17:44 Dose: 20 mg Loperamide HCl (Imodium) 2 mg PO QID PRN PRN Reason: Diarrhea Last Admin: 07/01/16 20:22 Dose: 2 mg Magnesium Oxide (Mag-Ox) 400 mg PO BID [facility] Last Admin: 07/07/16 17:43 Dose: 400 mg Polyethylene Glycol (Miralax) 17 gm PO Q2D [facility] Last Admin: 06/29/16 10:44 Dose: Not Given Sodium Chloride (Sodium Chloride Tab) 1 gm PO DAILY@1330 [facility] Last Admin: 07/07/16 12:53 Dose: 1 gm Tamsulosin HCl (Flomax) 0.8 mg PO DAILY [facility] Last Admin: 07/07/16 09:26 Dose: 0.8 mg Tramadol HCl (Ultram) 25 mg PO TID PRN PRN Reason: Pain, moderate (4-7) Last Admin: 07/07/16 17:42 Dose: 25 mg - Labs Labs: 07/03/16 11:22 07/03/16 11:22 - Constitutional Appears: No Acute Distress - Head Exam Head Exam: ATRAUMATIC, NORMOCEPHALIC - Eye Exam Eye Exam: EOMI, Normal appearance Pupil Exam: PERRL - ENT Exam ENT Exam: Mucous Membranes Moist - Neck Exam Neck Exam: Normal Inspection - Respiratory Exam Respiratory Exam: Clear to Ausculation Bilateral, NORMAL BREATHING PATTERN - Cardiovascular Exam Cardiovascular Exam: RRR, +S1, +S2 - GI/Abdominal Exam GI & Abdominal Exam: Soft, Normal Bowel Sounds. absent: Tenderness - Extremities Exam Extremities Exam: Normal Capillary Refill, Tenderness. absent: Pedal Edema - Back Exam Back Exam: absent: CVA tenderness (L), CVA tenderness (R) - Neurological Exam Neurological Exam: Alert, Awake, CN II-XII Intact, Oriented x3 - Psychiatric Exam Psychiatric exam: Normal Affect, Normal Mood - Skin Skin Exam: Dry, Intact, Warm Assessment and Plan - Assessment and Plan (Free Text) Plan: Fracture of tibia, proximal, right, closed; pain management and physical therapy -07/08: Cont Physical therapy and f/u ortho recommendations - trying to get a facility to accept patient with ambulatory cane. - Tylenol 650 mg PO Q6 PRN mild pain - Tramadol 25mg TID pRN - Daily physical therapy - Nonweight bearing on R leg - L knee x-ray: severe osteopenia. Sclerotic changes about the posterior proximal tibia may relate to a sclerotic healing response of a prior stress fracture here. no tibial plateau depressed fracture. The sclerosis is perceived on the prior 04/21 study; no interval pathology appreciated between 2 exams. If symptoms worsen consider MRI. 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 Smaller fat and vessel containing right inguinal hernia without evidence of obstruction; anterior right aspect of the urinary bladderalso extends into hernia defect. Cholelithiasis. Moderate constipation. Enlarged prostate gland. Right hip arhtroplasty. Right protrusion acetabulum. Sclerosis involving osseous structures, possibly reactive (see full report). - patient has been complaining of intermittent abdominal pain since admission - Colace 100mg PO BID - Dulcolax every 3 days - Inguinal hernia with unobstructed bowel loop involvement; protruded 04/18 due to straining on toilet. - 05/03/16 B/L inguinal hernias reduced today without incidence - Abdominal US 04/01: Gallstones, no acute cholecystitis, no hydronephrosis. trace ascites (see full report) - Abd/pelv CT 03/11: mod b/l pleural effusions and assoc consolidations; tiny probably gallstones within the gallbladder; small to moderate hiatal hernia; R inguinal hernia which contains small loops of bowel, likely small bowel- no evidence of obstruction as oral contrast is noted within R colon. No definite free air, however evaluation for pneumoperitoneum is suboptimal. Moderate to severe constipation with questionable impaction. Prostate gland 4.1cm x 4.6cm. Urinary bladder appears unremarkable. Small amount of fluid within a right inguinal hernia. Sclerosis of right iliac wing. Extensive anasarca. BPH - Flomax 0.8 mg PO daily - Urology Dr. Hughes on board - will f/u with recs concerning inpatient TURP Unilateral Leg swelling - 07/02: No changes - 06/09: No changes - 05/23: will order left leg US to r/o DVT - negative for DVT or any other abnormalities - 05/20: venous doppler ordered - read as: No evidence of deep or superficial vein thrombosis of the right lower extremity with excellent venous flow. Normal valve function noted of the right side. Normal venous flow noted in the left common femoral vein. Facial rash - resembles seborrheic dermatitis, patient encouraged to moisturize - ESR 32 - CRP 1.51 - RA- negative - A&D ointment to face Orthostasis- Resolved - 05/21: IV fluids- NS at 100cc/h - stopped - 05/16: Per PT, patient becomes hypotensive with exertion. adding sodium chloride tablets 1g daily - 05/05: -Supine BP: 114/71, HR 75 -Sitting BP: 113/71, HR 90 -Standing BP: 116/72, HR 94 Anemia- resolved Hgb stable weekly labs Aneurysmal dilatation of ascending thoracic aorta; Currently 4.5 cm. Patient needs repeat Ct imaging every 6 months - last CT scan in 03/2016, should be monitored in September, Onychomycosis;chronic and improving - patient had aseptic debridement of toenails x 10 - clotrimazole cream to be applied to feet b/l BID - podiatry following Sacral decubitus- resolved - Wound care following - recommending medihoney covered with bordered telfa dressing to right lower buttocks stage 2 pressure ulcer daily. - Pt is OOB to chair with help from PT daily - Order placed for turning patient Q2H History of Urinary Tract Infection Continue to monitor Most recent 06/22 Currently asympto Prophylactic Measure - Labs weekly on Sunday - Lovenox 40mg SC daily - Pepcid 20mg PO BID - A and D ointment TOP Q*H - Patient is homeless. Used to stay with friend, but no longer welcome there. Goal is to walk with cane so he can go to a group home (will not qualify with a walker) - patient will need to work with PT frequently - right calf with dark skin lesion underneath knee immobilizer, wound care on board - applying medihoney Disposition - Reaching out to family in [facility] - no response from family per case management - Social Work is following up - Cannot be discharged to group home due to functional status - Continue to work with PT - No new changes to pt status or plan - Palliative care consulted - pt agrees to DNR/DNI- cont current medical mgmt, rec for Silvadene to buttock <Jose Wiggins - Last Filed: 07/08/16 14:09> Objective - Vital Signs/Intake and Output Vital Signs (last 24 hours): Temp Pulse Resp BP Pulse Ox 97 F L 77 20 130/80 100 07/08/16 07:00 07/08/16 07:00 07/08/16 07:00 07/08/16 07:00 07/08/16 07:00 Intake and Output: 07/08/16 07/08/16 06:59 18:59 Output Total 300 Balance -300 - Medications Medications: Current Medications Acetaminophen (Tylenol 325mg Tab) 650 mg PO Q6 PRN PRN Reason: Pain, Mild (1-3) Last Admin: 07/02/16 21:37 Dose: 650 mg Docusate Sodium (Colace) 100 mg PO BID [facility] Last Admin: 06/30/16 09:13 Dose: Not Given Famotidine (Pepcid) 20 mg PO BID [facility] Last Admin: 07/08/16 09:39 Dose: 20 mg Loperamide HCl (Imodium) 2 mg PO QID PRN PRN Reason: Diarrhea Last Admin: 07/01/16 20:22 Dose: 2 mg Magnesium Oxide (Mag-Ox) 400 mg PO BID [facility] Last Admin: 07/08/16 09:39 Dose: 400 mg Polyethylene Glycol (Miralax) 17 gm PO Q2D [facility] Last Admin: 06/29/16 10:44 Dose: Not Given Sodium Chloride (Sodium Chloride Tab) 1 gm PO DAILY@1330 [facility] Last Admin: 07/07/16 12:53 Dose: 1 gm Tamsulosin HCl (Flomax) 0.8 mg PO DAILY [facility] Last Admin: 07/08/16 09:42 Dose: 0.8 mg Tramadol HCl (Ultram) 25 mg PO TID PRN PRN Reason: Pain, moderate (4-7) Last Admin: 07/08/16 11:17 Dose: 25 mg - Labs Labs: 07/03/16 11:22 07/03/16 11:22 Attending/Attestation - Attestation I have personally seen and examined this patient.: Yes I have fully participated in the care of the patient.: Yes I have reviewed all pertinent clinical information, including history, physical exam and plan: Yes Notes (Text): 07/08/16 14:09 Patient was seen and examined at bedside Patient lying in bed without any acute distress Still complains of right lower extremity pain Continue physical therapy daily Awaiting placement. Discussed the plan of care with the resident and agree with the above history and physical and assessment/plan by the resident.
[2016-07-08] MEDS: Magnesium Oxide 400 mg Tab UD PO SCH ×2 (09:39→18:09)
[2016-07-08] MEDS: Enoxaparin 40 mg Syringe SC SCH (09:42)
[2016-07-08] MEDS: Tramadol 25 mg PO PRN (11:17)
--- NOTE | 2016-07-09 02:17 | CP.PCM.PN ---
<Kwame Sears - Last Filed: 07/09/16 02:13> Subjective - Date & Time of Evaluation Date of Evaluation: 07/09/16 Time of Evaluation: 01:00 - Subjective Subjective: PGY-1 Medicine Progress Note for Dr. Wiggins Patient seen and examined at bedside. No acute event overnight. Patient resting in bed comfortably. Patient has chronic right lower extremity pain. Tolerating his diet and having normal BM. Denies fevers/chills, abd pain, nausea, vomiting , diarrhea, chest pain, palpitations and constipation. Objective - Vital Signs/Intake and Output Vital Signs (last 24 hours): Temp Pulse Resp BP Pulse Ox 98.4 F 76 20 120/76 97 07/08/16 23:30 07/08/16 23:30 07/08/16 23:30 07/08/16 23:30 07/08/16 23:30 Intake and Output: 07/08/16 07/09/16 18:59 06:59 Intake Total 420 Balance 420 - Medications Medications: Current Medications Acetaminophen (Tylenol 325mg Tab) 650 mg PO Q6 PRN PRN Reason: Pain, Mild (1-3) Last Admin: 07/02/16 21:37 Dose: 650 mg Docusate Sodium (Colace) 100 mg PO BID [facility] Last Admin: 06/30/16 09:13 Dose: Not Given Famotidine (Pepcid) 20 mg PO BID [facility] Last Admin: 07/08/16 18:09 Dose: 20 mg Loperamide HCl (Imodium) 2 mg PO QID PRN PRN Reason: Diarrhea Last Admin: 07/01/16 20:22 Dose: 2 mg Magnesium Oxide (Mag-Ox) 400 mg PO BID [facility] Last Admin: 07/08/16 18:09 Dose: 400 mg Polyethylene Glycol (Miralax) 17 gm PO Q2D [facility] Last Admin: 06/29/16 10:44 Dose: Not Given Sodium Chloride (Sodium Chloride Tab) 1 gm PO DAILY@1330 [facility] Last Admin: 07/08/16 15:59 Dose: 1 gm Tamsulosin HCl (Flomax) 0.8 mg PO DAILY [facility] Last Admin: 07/08/16 09:42 Dose: 0.8 mg Tramadol HCl (Ultram) 25 mg PO TID PRN PRN Reason: Pain, moderate (4-7) Last Admin: 07/08/16 11:17 Dose: 25 mg - Labs Labs: 07/03/16 11:22 07/03/16 11:22 - Constitutional Appears: No Acute Distress - Head Exam Head Exam: ATRAUMATIC, NORMOCEPHALIC - Eye Exam Eye Exam: EOMI, Normal appearance Pupil Exam: PERRL - ENT Exam ENT Exam: Mucous Membranes Moist - Neck Exam Neck Exam: Normal Inspection - Respiratory Exam Respiratory Exam: Clear to Ausculation Bilateral, NORMAL BREATHING PATTERN - Cardiovascular Exam Cardiovascular Exam: RRR, +S1, +S2 - GI/Abdominal Exam GI & Abdominal Exam: Soft, Normal Bowel Sounds. absent: Tenderness - Extremities Exam Extremities Exam: Normal Capillary Refill, Tenderness (RLE) Additional comments: bilateral inguinal hernias healed scar on r knee - Back Exam Back Exam: absent: CVA tenderness (L), CVA tenderness (R) - Neurological Exam Neurological Exam: Abnormal Gait, Alert, Awake, CN II-XII Intact, Oriented x3 - Psychiatric Exam Psychiatric exam: Normal Affect, Normal Mood - Skin Skin Exam: Dry, Intact, Warm Additional comments: chronic skin changes in LEs Assessment and Plan - Assessment and Plan (Free Text) Plan: Fracture of tibia, proximal, right, closed; pain management and physical therapy 07/09: Cont Physical therapy and f/u ortho recommendations - trying to get a facility to accept patient with ambulatory cane. Tylenol 650 mg PO Q6 PRN mild pain Tramadol 25mg TID pRN Daily physical therapy Nonweight bearing on R leg L knee x-ray: severe osteopenia. Sclerotic changes about the posterior proximal tibia may relate to a sclerotic healing response of a prior stress fracture here. no tibial plateau depressed fracture. The sclerosis is perceived on the prior 04/21 study; no interval pathology appreciated between 2 exams. If symptoms worsen consider MRI. 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 Patient needs repeat Ct imaging every [address] scan in 03/2016, should be monitored in September, Sacral decubitus- resolved Pt is OOB to chair with help from PT daily History of Urinary Tract Infection Continue to monitor Most recent 06/22 Currently asympto Prophylactic Measure Labs weekly on Sunday Lovenox 40mg SC daily Pepcid 20mg PO BID Patient is homeless. Used to stay with friend, but no longer welcome there. Goal is to walk with cane so he can go to a [facility] (will not qualify with a walker) Disposition - Reaching out to family in [facility] - no response from family per case management - Social Work is following up - Cannot be discharged to [facility] due to functional status - Continue to work with PT - No new changes to pt status or plan - Palliative care consulted - pt agrees to DNR/DNI- cont current medical mgmt, rec for Silvadene to buttock <Jose Wiggins - Last Filed: 07/09/16 15:22> Objective - Vital Signs/Intake and Output Vital Signs (last 24 hours): Temp Pulse Resp BP Pulse Ox 98.4 F 76 20 120/76 97 07/08/16 23:30 07/08/16 23:30 07/08/16 23:30 07/08/16 23:30 07/08/16 23:30 Intake and Output: 07/09/16 07/09/16 06:59 18:59 Intake Total 570 Output Total 100 Balance 470 - Medications Medications: Current Medications Acetaminophen (Tylenol 325mg Tab) 650 mg PO Q6 PRN PRN Reason: Pain, Mild (1-3) Last Admin: 07/02/16 21:37 Dose: 650 mg Docusate Sodium (Colace) 100 mg PO BID [facility] Last Admin: 06/30/16 09:13 Dose: Not Given Enoxaparin Sodium (Lovenox) 40 mg SC DAILY [facility] Last Admin: 07/09/16 10:05 Dose: 40 mg Famotidine (Pepcid) 20 mg PO BID [facility] Last Admin: 07/09/16 10:04 Dose: 20 mg Loperamide HCl (Imodium) 2 mg PO QID PRN PRN Reason: Diarrhea Last Admin: 07/01/16 20:22 Dose: 2 mg Magnesium Oxide (Mag-Ox) 400 mg PO BID [facility] Last Admin: 07/09/16 10:04 Dose: 400 mg Polyethylene Glycol (Miralax) 17 gm PO Q2D [facility] Last Admin: 06/29/16 10:44 Dose: Not Given Sodium Chloride (Sodium Chloride Tab) 1 gm PO DAILY@1330 [facility] Last Admin: 07/09/16 14:24 Dose: 1 gm Tamsulosin HCl (Flomax) 0.8 mg PO DAILY [facility] Last Admin: 07/09/16 10:04 Dose: 0.8 mg Tramadol HCl (Ultram) 25 mg PO TID PRN PRN Reason: Pain, moderate (4-7) Last Admin: 07/09/16 10:05 Dose: 25 mg - Labs Labs: 07/03/16 11:22 07/03/16 11:22 Attending/Attestation - Attestation I have personally seen and examined this patient.: Yes I have fully participated in the care of the patient.: Yes I have reviewed all pertinent clinical information, including history, physical exam and plan: Yes Notes (Text): 07/09/16 15:21 Patient was seen and examined at bedside Patient is resting comfortably with no acute distress Patient's ongoing chronic problems of right leg pain are present We will continue physical therapy daily Patient is ambulating with a walker without any problems We are referring the patient to a [facility] which accepts the patients with walker. Awaiting placement I agree with the above history and physical and assessment/plan but the resident
[2016-07-09] MEDS: Magnesium Oxide 400 mg Tab UD PO SCH ×2 (10:04→18:29)
[2016-07-09] MEDS: Enoxaparin 40 mg Syringe SC SCH (10:05)
[2016-07-09] MEDS: Tramadol 25 mg PO PRN (10:05)
[2016-07-10] MEDS: Magnesium Oxide 400 mg Tab UD PO SCH ×2 (09:19→18:13)
[2016-07-10] MEDS: Enoxaparin 40 mg Syringe SC SCH (09:20)
[2016-07-10] MEDS: Tramadol 25 mg PO PRN (09:21)
--- NOTE | 2016-07-10 11:38 | CP.PCM.PN ---
<OrionKwame - Last Filed: 07/10/16 11:36> Subjective - Date & Time of Evaluation Date of Evaluation: 07/10/16 Time of Evaluation: 09:00 - Subjective Subjective: PGY-1 Medicine Progress Note for Dr. Rutherford Patient seen and examined at bedside. No acute event overnight. Patient resting in bed comfortably. Chronic right lower extremity pain is present. Tolerating his diet, urinating with out difficulty and having normal BM. Denies fevers/ chills, abd pain, nausea, vomiting, diarrhea, chest pain, palpitations and constipation. Objective - Vital Signs/Intake and Output Vital Signs (last 24 hours): Temp Pulse Resp BP Pulse Ox 98.1 F 65 20 119/69 97 07/10/16 07:30 07/10/16 07:30 07/10/16 07:30 07/10/16 07:30 07/10/16 07:30 Intake and Output: 07/10/16 07/10/16 06:59 18:59 Intake Total 500 Output Total 450 Balance 50 - Medications Medications: Current Medications Acetaminophen (Tylenol 325mg Tab) 650 mg PO Q6 PRN PRN Reason: Pain, Mild (1-3) Last Admin: 07/02/16 21:37 Dose: 650 mg Docusate Sodium (Colace) 100 mg PO BID [facility] Last Admin: 06/30/16 09:13 Dose: Not Given Enoxaparin Sodium (Lovenox) 40 mg SC DAILY [facility] Last Admin: 07/10/16 09:20 Dose: 40 mg Famotidine (Pepcid) 20 mg PO BID [facility] Last Admin: 07/10/16 09:19 Dose: 20 mg Loperamide HCl (Imodium) 2 mg PO QID PRN PRN Reason: Diarrhea Last Admin: 07/01/16 20:22 Dose: 2 mg Magnesium Oxide (Mag-Ox) 400 mg PO BID [facility] Last Admin: 07/10/16 09:19 Dose: 400 mg Polyethylene Glycol (Miralax) 17 gm PO Q2D [facility] Last Admin: 06/29/16 10:44 Dose: Not Given Sodium Chloride (Sodium Chloride Tab) 1 gm PO DAILY@1330 [facility] Last Admin: 07/09/16 14:24 Dose: 1 gm Tamsulosin HCl (Flomax) 0.8 mg PO DAILY [facility] Last Admin: 07/10/16 09:19 Dose: 0.8 mg Tramadol HCl (Ultram) 25 mg PO TID PRN PRN Reason: Pain, moderate (4-7) Last Admin: 07/10/16 09:21 Dose: 25 mg - Labs Labs: 07/03/16 11:22 07/03/16 11:22 - Constitutional Appears: No Acute Distress - Head Exam Head Exam: ATRAUMATIC, NORMOCEPHALIC - Eye Exam Eye Exam: EOMI, Normal appearance Pupil Exam: PERRL - ENT Exam ENT Exam: Mucous Membranes Moist - Respiratory Exam Respiratory Exam: Clear to Ausculation Bilateral, NORMAL BREATHING PATTERN - Cardiovascular Exam Cardiovascular Exam: REGULAR RHYTHM, +S1, +S2 - GI/Abdominal Exam GI & Abdominal Exam: Soft, Normal Bowel Sounds. absent: Tenderness - Extremities Exam Extremities Exam: Normal Capillary Refill, Tenderness - Back Exam Back Exam: absent: CVA tenderness (L), CVA tenderness (R) - Neurological Exam Neurological Exam: Alert, Awake, CN II-XII Intact, Oriented x3 - Psychiatric Exam Psychiatric exam: Normal Affect, Normal Mood - Skin Skin Exam: Dry, Intact, Warm Assessment and Plan - Assessment and Plan (Free Text) Plan: Fracture of tibia, proximal, right, closed; pain management and physical therapy Cont Physical therapy and f/u ortho recommendations - trying to get a facility to accept patient with ambulatory cane. Tylenol 650 mg PO Q6 PRN mild pain Tramadol 25mg TID pRN Daily physical therapy Nonweight bearing on R leg L knee x-ray: severe osteopenia. Sclerotic changes about the posterior proximal tibia may relate to a sclerotic healing response of a prior stress fracture here. no tibial plateau depressed fracture. The sclerosis is perceived on the prior 04/21 study; no interval pathology appreciated between 2 exams. If symptoms worsen consider MRI. 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 Patient needs repeat Ct imaging every [address] scan in 03/2016, should be monitored in September, Sacral decubitus- resolved Pt is OOB to chair with help from PT daily History of Urinary Tract Infection Continue to monitor Most recent 06/22 Currently asympto Prophylactic Measure Labs weekly on Sunday Lovenox 40mg SC daily Pepcid 20mg PO BID Patient is homeless. Used to stay with friend, but no longer welcome there. Goal is to walk with cane so he can go to a [place] [facility] (will not qualify with a walker) Disposition - Reaching out to family in [facility] - no response from family per case management - Social Work is following up - [place] be discharged to [place] [facility] due to functional status - Continue to work with PT - No new changes to pt status or plan - Palliative care consulted - pt agrees to DNR/DNI- cont current medical mgmt, rec for Silvadene to buttock <Sukhwinder Rutherford - Last Filed: 07/10/16 15:33> Objective - Vital Signs/Intake and Output Vital Signs (last 24 hours): Temp Pulse Resp BP Pulse Ox 98.1 F 65 20 119/69 97 07/10/16 07:30 07/10/16 07:30 07/10/16 07:30 07/10/16 07:30 07/10/16 07:30 Intake and Output: 07/10/16 07/10/16 06:59 18:59 Intake Total 500 Output Total 450 Balance 50 - Medications Medications: Current Medications Acetaminophen (Tylenol 325mg Tab) 650 mg PO Q6 PRN PRN Reason: Pain, Mild (1-3) Last Admin: 07/02/16 21:37 Dose: 650 mg Docusate Sodium (Colace) 100 mg PO BID [facility] Last Admin: 06/30/16 09:13 Dose: Not Given Enoxaparin Sodium (Lovenox) 40 mg SC DAILY [facility] Last Admin: 07/10/16 09:20 Dose: 40 mg Famotidine (Pepcid) 20 mg PO BID [facility] Last Admin: 07/10/16 09:19 Dose: 20 mg Loperamide HCl (Imodium) 2 mg PO QID PRN PRN Reason: Diarrhea Last Admin: 07/01/16 20:22 Dose: 2 mg Magnesium Oxide (Mag-Ox) 400 mg PO BID [facility] Last Admin: 07/10/16 09:19 Dose: 400 mg Polyethylene Glycol (Miralax) 17 gm PO Q2D [facility] Last Admin: 06/29/16 10:44 Dose: Not Given Sodium Chloride (Sodium Chloride Tab) 1 gm PO DAILY@1330 [facility] Last Admin: 07/09/16 14:24 Dose: 1 gm Tamsulosin HCl (Flomax) 0.8 mg PO DAILY [facility] Last Admin: 07/10/16 09:19 Dose: 0.8 mg Tramadol HCl (Ultram) 25 mg PO TID PRN PRN Reason: Pain, moderate (4-7) Last Admin: 07/10/16 09:21 Dose: 25 mg - Labs Labs: 07/10/16 12:53 07/10/16 09:22 Attending/Attestation - Attestation I have personally seen and examined this patient.: Yes I have fully participated in the care of the patient.: Yes I have reviewed all pertinent clinical information, including history, physical exam and plan: Yes Notes (Text): 07/10/16 15:32 Medical Attending: Patient was seen and examined by me. Situation is not greatly changed from before. Patient was seen with the resident as well. Agree with the above Sukhwinder Rutherford
--- NOTE | 2016-07-10 12:33 | CP.PCM.PN ---
Subjective - Date & Time of Evaluation Date of Evaluation: 07/10/16 Time of Evaluation: 12:33 - Subjective Subjective: Patient complaining of hip pain, denies knee pain currently. NO new complaints. Denies numbness/tingling. Improving in PT. Objective - Vital Signs/Intake and Output Vital Signs (last 24 hours): Temp Pulse Resp BP Pulse Ox 98.1 F 65 20 119/69 97 07/10/16 07:30 07/10/16 07:30 07/10/16 07:30 07/10/16 07:30 07/10/16 07:30 Intake and Output: 07/10/16 07/10/16 06:59 18:59 Intake Total 500 Output Total 450 Balance 50 - Medications Medications: Current Medications Acetaminophen (Tylenol 325mg Tab) 650 mg PO Q6 PRN PRN Reason: Pain, Mild (1-3) Last Admin: 07/02/16 21:37 Dose: 650 mg Docusate Sodium (Colace) 100 mg PO BID [facility] Last Admin: 06/30/16 09:13 Dose: Not Given Enoxaparin Sodium (Lovenox) 40 mg SC DAILY [facility] Last Admin: 07/10/16 09:20 Dose: 40 mg Famotidine (Pepcid) 20 mg PO BID [facility] Last Admin: 07/10/16 09:19 Dose: 20 mg Loperamide HCl (Imodium) 2 mg PO QID PRN PRN Reason: Diarrhea Last Admin: 07/01/16 20:22 Dose: 2 mg Magnesium Oxide (Mag-Ox) 400 mg PO BID [facility] Last Admin: 07/10/16 09:19 Dose: 400 mg Polyethylene Glycol (Miralax) 17 gm PO Q2D [facility] Last Admin: 06/29/16 10:44 Dose: Not Given Sodium Chloride (Sodium Chloride Tab) 1 gm PO DAILY@1330 [facility] Last Admin: 07/09/16 14:24 Dose: 1 gm Tamsulosin HCl (Flomax) 0.8 mg PO DAILY [facility] Last Admin: 07/10/16 09:19 Dose: 0.8 mg Tramadol HCl (Ultram) 25 mg PO TID PRN PRN Reason: Pain, moderate (4-7) Last Admin: 07/10/16 09:21 Dose: 25 mg - Labs Labs: 07/03/16 11:22 07/03/16 11:22 - Constitutional Appears: Well, No Acute Distress - Respiratory Exam Respiratory Exam: NORMAL BREATHING PATTERN - Extremities Exam Additional comments: non tender to proximal tibia no erythema no swelling - Neurological Exam Additional comments: RLE: still unable to actively extend knee against gravity. Can feel contraction at patellar tendon, but weak. Sensation intact. ROM of knee 0-60, improving. Completed short arc quad B, R with assist 3x30, Advised pt to sit in chair and work on knee flexion as well as on edge of bed, encourage OOB +DP pulse, sensation intact, calves soft NT neg homans - Psychiatric Exam Psychiatric exam: Normal Affect, Normal Mood - Skin Skin Exam: Dry, Normal Color, Warm Assessment and Plan (1) Acetabular protrusion Assessment & Plan: Stable xrays ordered as patient has been weight bearing no orthopedic surgical intervention planned Status: Chronic (2) Fracture of tibia, proximal, right, closed Assessment & Plan: Progressive WB PT notes appreciated, goal is cane PT daily, patient is progressing with strength and ROM, but slow. d/w Dr. Pino, agrees with above Status: Chronic
[2016-07-10 13:08] LABS: BASO % 0.4 % (0.0-2.0); EOS # 0.1 K/uL (0.0-0.7); EOS % 1.8 % (0.0-4.0); LYMPH # 1.1 K/uL (1.0-4.3); LYMPH % 25.6 % (20.0-40.0); MEAN CELL VOLUME 97.2 fL (80.0-94.0); MEAN CORPUSCULAR HEMOGLOBIN 32.6 pg (27.0-31.0); MEAN CORPUSCULAR HGB CONC 33.5 g/dL (33.0-37.0); MEAN PLATELET VOLUME 8.7 fL (7.2-11.7); MONO # 0.4 K/uL (0.0-0.8); MONO % 9.8 % (0.0-10.0); NEUT # 2.6 K/uL (1.8-7.0); NEUT % 62.4 % (50.0-75.0); RBC 3.68 Mil/uL (4.40-5.90); RED CELL DISTRIBUTION WIDTH 13.3 % (11.5-14.5); WHITE BLOOD COUNT 4.2 K/uL (4.8-10.8)
[2016-07-10 13:32] LABS: ALBUMIN 3.6 g/dL (3.5-5.0)
[2016-07-10 13:34] LABS: GFR AFRICAN-AMERICAN > 60; GFR NON-AFRICAN AMERICAN > 60
[2016-07-10 13:35] LABS: AST/SGOT 15 U/L (17-59); BLOOD UREA NITROGEN 10 mg/dL (9-20)
[2016-07-10 13:36] LABS: CALCIUM 8.7 mg/dl (8.6-10.4)
[2016-07-10 13:39] LABS: ALT/SGPT < 6 U/L (21-72)
--- NOTE | 2016-07-11 07:19 | CP.PCM.PN ---
<MasonSangeeta - Last Filed: 07/11/16 10:24> Subjective - Date & Time of Evaluation Date of Evaluation: 07/11/16 Time of Evaluation: 07:16 - Subjective Subjective: Patient seen and examined at bedside. No acute events overnight per nursing. Patient continues to complain of pain to right hip; however he is weight bearing. Plan for patient to continue working with PT. His vitals are stable. Patient states he is tolerating his diet well and denies nausea, vomiting, diarrhea, and constipation. He also denies fever/chills, chest pain, and palpitations. Objective - Vital Signs/Intake and Output Vital Signs (last 24 hours): Temp Pulse Resp BP Pulse Ox 97.8 F 72 20 110/70 98 07/10/16 23:15 07/10/16 23:15 07/10/16 23:15 07/10/16 23:15 07/10/16 23:15 Intake and Output: 07/11/16 07/11/16 06:59 18:59 Intake Total 500 Output Total 500 Balance 0 - Medications Medications: Current Medications Acetaminophen (Tylenol 325mg Tab) 650 mg PO Q6 PRN PRN Reason: Pain, Mild (1-3) Last Admin: 07/02/16 21:37 Dose: 650 mg Docusate Sodium (Colace) 100 mg PO BID [facility] Last Admin: 06/30/16 09:13 Dose: Not Given Enoxaparin Sodium (Lovenox) 40 mg SC DAILY [facility] Last Admin: 07/10/16 09:20 Dose: 40 mg Famotidine (Pepcid) 20 mg PO BID [facility] Last Admin: 07/10/16 18:13 Dose: 20 mg Loperamide HCl (Imodium) 2 mg PO QID PRN PRN Reason: Diarrhea Last Admin: 07/01/16 20:22 Dose: 2 mg Magnesium Oxide (Mag-Ox) 400 mg PO BID [facility] Last Admin: 07/10/16 18:13 Dose: 400 mg Polyethylene Glycol (Miralax) 17 gm PO Q2D [facility] Last Admin: 06/29/16 10:44 Dose: Not Given Sodium Chloride (Sodium Chloride Tab) 1 gm PO DAILY@1330 [facility] Last Admin: 07/09/16 14:24 Dose: 1 gm Tamsulosin HCl (Flomax) 0.8 mg PO DAILY [facility] Last Admin: 07/10/16 09:19 Dose: 0.8 mg Tramadol HCl (Ultram) 25 mg PO TID PRN PRN Reason: Pain, moderate (4-7) Last Admin: 07/10/16 09:21 Dose: 25 mg - Labs Labs: 07/10/16 12:53 07/10/16 09:22 - Constitutional Appears: No Acute Distress - Head Exam Head Exam: ATRAUMATIC, NORMAL INSPECTION, NORMOCEPHALIC - Eye Exam Eye Exam: EOMI, Normal appearance - ENT Exam ENT Exam: Mucous Membranes Moist - Respiratory Exam Respiratory Exam: Clear to Ausculation Bilateral, NORMAL BREATHING PATTERN. absent: Rales, Rhonchi, Wheezes - Cardiovascular Exam Cardiovascular Exam: +S1, +S2. absent: Tachycardia - GI/Abdominal Exam GI & Abdominal Exam: Soft, Normal Bowel Sounds. absent: Tenderness - Extremities Exam Extremities Exam: Normal Capillary Refill. absent: Tenderness Additional comments: no tenderness to palpation - Neurological Exam Neurological Exam: Alert, Awake, CN II-XII Intact, Oriented x3 - Psychiatric Exam Psychiatric exam: Normal Affect, Normal Mood - Skin Additional comments: erythema and greasy scale to bilateral cheeks, glabella, and chin Assessment and Plan - Assessment and Plan (Free Text) Assessment: Fracture of tibia, proximal, right, closed; pain management and physical therapy Patient to continue physical therapy; goal is for use of cane per ortho. Patient is progressively weight bearing. No ortho intervention needed at this time. Continue to try to get a facility to accept patient with ambulatory cane. Tylenol 650 mg PO Q6 PRN mild pain Tramadol 25mg TID pRN Daily physical therapy L knee x-ray: severe osteopenia. Sclerotic changes about the posterior proximal tibia may relate to a sclerotic healing response of a prior stress fracture here. no tibial plateau depressed fracture. The sclerosis is perceived on the prior 04/21 study; no interval pathology appreciated between 2 exams. If symptoms worsen consider MRI. 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 imaging every [address] scan in 03/2016, should be monitored in September, Sacral decubitus- resolved Pt is OOB to chair with help from PT daily History of Urinary Tract Infection Continue to monitor Most recent 06/22 Currently asymptomatic Seborrheic Dermatitis Start Ketoconazole 2% to affected areas of face BID Start Ketoconazole 2% Shampoo to hair twice weekly Prophylactic Measure Labs weekly on Sunday Lovenox 40mg SC daily Pepcid 20mg PO BID Patient is homeless. Used to stay with friend, but no longer welcome there. Goal is to walk with cane so he can go to a correction (will not qualify with a walker) Disposition Reaching out to family in [facility] - no response from family per case management Social Work is following up Cannot be discharged to [facility] due to functional status Continue to work with PT No new changes to pt status or plan Palliative care consulted - pt agrees to DNR/DNI- cont current medical mgmt, rec for Silvadene to buttock <Parker Cantu - Last Filed: 07/12/16 12:30> Objective - Vital Signs/Intake and Output Vital Signs (last 24 hours): Temp Pulse Resp BP Pulse Ox 98.3 F 82 20 102/64 96 07/12/16 09:22 07/12/16 09:22 07/12/16 09:22 07/12/16 09:22 07/12/16 09:22 Intake and Output: 07/12/16 07/12/16 06:59 18:59 Output Total 200 Balance -200 - Medications Medications: Current Medications Acetaminophen (Tylenol 325mg Tab) 650 mg PO Q6 PRN PRN Reason: Pain, Mild (1-3) Last Admin: 07/02/16 21:37 Dose: 650 mg Docusate Sodium (Colace) 100 mg PO BID [facility] Last Admin: 06/30/16 09:13 Dose: Not Given Enoxaparin Sodium (Lovenox) 40 mg SC DAILY [facility] Last Admin: 07/12/16 10:04 Dose: 40 mg Famotidine (Pepcid) 20 mg PO BID [facility] Last Admin: 07/12/16 10:04 Dose: 20 mg Ketoconazole (Nizoral) 0 gm TOP BID [facility] Last Admin: 07/12/16 10:04 Dose: 1 applic Loperamide HCl (Imodium) 2 mg PO QID PRN PRN Reason: Diarrhea Last Admin: 07/01/16 20:22 Dose: 2 mg Magnesium Oxide (Mag-Ox) 400 mg PO BID [facility] Last Admin: 07/12/16 10:04 Dose: 400 mg Polyethylene Glycol (Miralax) 17 gm PO Q2D [facility] Last Admin: 06/29/16 10:44 Dose: Not Given Sodium Chloride (Sodium Chloride Tab) 1 gm PO DAILY@1330 [facility] Last Admin: 07/11/16 14:32 Dose: 1 gm Tamsulosin HCl (Flomax) 0.8 mg PO DAILY [facility] Last Admin: 07/12/16 10:04 Dose: 0.8 mg Tramadol HCl (Ultram) 25 mg PO TID PRN PRN Reason: Pain, moderate (4-7) Last Admin: 07/10/16 09:21 Dose: 25 mg - Labs Labs: 07/10/16 12:53 07/10/16 09:22 Attending/Attestation - Attestation I have personally seen and examined this patient.: Yes I have fully participated in the care of the patient.: Yes I have reviewed all pertinent clinical information, including history, physical exam and plan: Yes Notes (Text): Patient seen and examined with the resident. Agree with the resident's evaluation, assessment and plan. BPH chronic Leg swelling Fracture of tibia, proximal, right, closed
--- NOTE | 2016-07-11 09:57 | RAD ---
PROCEDURE: Right Knee Radiographs. HISTORY: f/u stress fracture, now weight bearing COMPARISON: 06/26/2016 FINDINGS: BONES: No interval fractures appreciated. Marked osteopenia discontinuous cerclage wire transfixing a remote patellar nondisplaced fracture -similar-appearing JOINTS: osteoarthritis. Patellofemoral compartment most notable JOINT EFFUSION: None. OTHER FINDINGS: Posterior posterior casting stabilizer has been removed well corticated ossification anterior tibial plateau consistent with remote trauma similar-appearing IMPRESSION: No interval change appreciated apart from the removal of the prior posterior casting stabilizer
[2016-07-11] MEDS: Enoxaparin 40 mg Syringe SC SCH (10:17)
[2016-07-11] MEDS: Magnesium Oxide 400 mg Tab UD PO SCH ×2 (10:18→17:07)
--- NOTE | 2016-07-12 08:11 | RAD ---
PROCEDURE: Right Hip Radiographs. 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 The radiolucency surrounding the acetabular component is renoted. There is severe demineralization if not interruption of the right medial osseous barrier to the right acetabular prosthesis. This osseous paucity and/or absence of medial right acetabular osseous barrier is worth noting for its potential for a pathological fracture here and in regards to any weight-bearing No gross change in alignment is perceived. JOINTS: As above SOFT TISSUES: Normal. OTHER FINDINGS: None. IMPRESSION: No interval change noted. Please read the above bone section
--- NOTE | 2016-07-12 08:42 | CP.PCM.PN ---
<CecilioSangeeta eagle - Last Filed: 07/12/16 15:46> Subjective - Date & Time of Evaluation Date of Evaluation: 07/12/16 Time of Evaluation: 08:40 - Subjective Subjective: Patient seen and examined at bedside. Patient complaining of pain to his right leg. Physical therapy continuing to work with patient. He denies other symptoms including fever, chills, chest pain, shortness of breath, abdominal pain, nausea , vomiting, diarrhea and constipation. Patient is tolerating diet well. Objective - Vital Signs/Intake and Output Vital Signs (last 24 hours): Temp Pulse Resp BP Pulse Ox 98.1 F 74 20 112/71 98 07/11/16 23:50 07/11/16 23:50 07/11/16 23:50 07/11/16 23:50 07/11/16 23:50 Intake and Output: 07/12/16 07/12/16 06:59 18:59 Output Total 200 Balance -200 - Medications Medications: Current Medications Acetaminophen (Tylenol 325mg Tab) 650 mg PO Q6 PRN PRN Reason: Pain, Mild (1-3) Last Admin: 07/02/16 21:37 Dose: 650 mg Docusate Sodium (Colace) 100 mg PO BID [facility] Last Admin: 06/30/16 09:13 Dose: Not Given Enoxaparin Sodium (Lovenox) 40 mg SC DAILY [facility] Last Admin: 07/11/16 10:17 Dose: 40 mg Famotidine (Pepcid) 20 mg PO BID [facility] Last Admin: 07/11/16 17:07 Dose: 20 mg Ketoconazole (Nizoral) 0 gm TOP BID [facility] Last Admin: 07/11/16 19:01 Dose: 1 applic Loperamide HCl (Imodium) 2 mg PO QID PRN PRN Reason: Diarrhea Last Admin: 07/01/16 20:22 Dose: 2 mg Magnesium Oxide (Mag-Ox) 400 mg PO BID [facility] Last Admin: 07/11/16 17:07 Dose: 400 mg Polyethylene Glycol (Miralax) 17 gm PO Q2D [facility] Last Admin: 06/29/16 10:44 Dose: Not Given Sodium Chloride (Sodium Chloride Tab) 1 gm PO DAILY@1330 [facility] Last Admin: 07/11/16 14:32 Dose: 1 gm Tamsulosin HCl (Flomax) 0.8 mg PO DAILY [facility] Last Admin: 07/11/16 10:19 Dose: 0.8 mg Tramadol HCl (Ultram) 25 mg PO TID PRN PRN Reason: Pain, moderate (4-7) Last Admin: 07/10/16 09:21 Dose: 25 mg - Labs Labs: 07/10/16 12:53 07/10/16 09:22 - Constitutional Appears: No Acute Distress - Head Exam Head Exam: ATRAUMATIC, NORMAL INSPECTION, NORMOCEPHALIC - Eye Exam Eye Exam: EOMI, Normal appearance - ENT Exam ENT Exam: Mucous Membranes Moist - Respiratory Exam Respiratory Exam: Clear to Ausculation Bilateral, NORMAL BREATHING PATTERN. absent: Rales, Rhonchi, Wheezes - Cardiovascular Exam Cardiovascular Exam: +S1, +S2. absent: Bradycardia, Tachycardia - GI/Abdominal Exam GI & Abdominal Exam: Soft, Normal Bowel Sounds. absent: Distended, Firm, Tenderness - Extremities Exam Extremities Exam: Normal Capillary Refill, Normal Inspection, Tenderness Additional comments: right leg pain with range of motion - Neurological Exam Neurological Exam: Alert, Awake, Oriented x3 - Psychiatric Exam Psychiatric exam: Normal Affect, Normal Mood - Skin Skin Exam: Intact, Normal Color Additional comments: erythema and scaling to facial skin. Improving with creams. Assessment and Plan - Assessment and Plan (Free Text) Assessment: Fracture of tibia, proximal, right, closed; pain management and physical therapy Continue physical therapy; goal is for use of cane per ortho. Patient is progressively weight bearing. No ortho intervention needed at this time. Continue to try to get a facility to accept patient with ambulatory cane. Tylenol 650 mg PO Q6 PRN mild pain Tramadol 25mg TID pRN Daily physical therapy L knee x-ray: severe osteopenia. Sclerotic changes about the posterior proximal tibia may relate to a sclerotic healing response of a prior stress fracture here. no tibial plateau depressed fracture. The sclerosis is perceived on the prior 04/21 study; no interval pathology appreciated between 2 exams. If symptoms worsen consider MRI. 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 imaging every [address] scan in 03/2016, should be monitored in September, Sacral decubitus- resolved Out of bed into chair daily History of Urinary Tract Infection Continue to monitor Most recent 06/22 Currently asymptomatic Seborrheic Dermatitis Continue Ketoconazole 2% to affected areas of face BID and Ketoconazole 2% Shampoo to hair twice weekly Prophylactic Measure Labs weekly on Sunday Lovenox 40mg SC daily Pepcid 20mg PO BID Patient is homeless. Used to stay with friend, but no longer welcome there. Goal is to walk with cane so he can go to a fpc (will not qualify with a walker) Disposition Reaching out to family in [facility] - no response from family per case management Social Work is following up Cannot be discharged to fpc due to functional status Continue to work with PT No new changes to pt status or plan Palliative care consulted - pt agrees to DNR/DNI- cont current medical mgmt, rec for Silvadene to buttock <Parker Cantu - Last Filed: 08/11/16 10:24> Objective - Vital Signs/Intake and Output Vital Signs (last 24 hours): Temp Pulse Resp BP Pulse Ox 97.8 F 71 20 118/74 97 08/11/16 08:15 08/11/16 08:15 08/11/16 08:15 08/11/16 08:15 08/11/16 08:15 Intake and Output: 08/11/16 08/11/16 06:59 18:59 Intake Total 400 Balance 400 - Medications Medications: Current Medications Acetaminophen (Tylenol 325mg Tab) 650 mg PO Q6 PRN PRN Reason: Pain, Mild (1-3) Enoxaparin Sodium (Lovenox) 40 mg SC DAILY [facility] Last Admin: 08/10/16 10:25 Dose: 40 mg Famotidine (Pepcid) 20 mg PO BID [facility] Last Admin: 08/10/16 17:51 Dose: 20 mg Lidocaine (Lidoderm) 1 ea TD DAILY [facility] Last Admin: 08/10/16 10:25 Dose: 1 ea Tamsulosin HCl (Flomax) 0.8 mg PO DAILY [facility] Last Admin: 08/10/16 10:26 Dose: 0.8 mg Tramadol HCl (Ultram) 50 mg PO TID PRN PRN Reason: Pain, moderate (4-7) Last Admin: 08/11/16 00:35 Dose: 50 mg - Labs Labs: 08/07/16 10:56 08/07/16 10:56 Attending/Attestation - Attestation I have personally seen and examined this patient.: Yes I have fully participated in the care of the patient.: Yes I have reviewed all pertinent clinical information, including history, physical exam and plan: Yes Notes (Text): Patient seen and examined with the resident. Agree with the resident's evaluation, assessment and plan. Fracture of tibia, proximal, right, closed; pain management and physical therapy Continue physical therapy; goal is for use of cane per ortho. L knee x-ray: severe osteopenia. Sclerotic changes about the posterior proximal tibia may relate to a sclerotic healing response of a prior stress fracture here. no tibial plateau depressed fracture. The sclerosis is perceived on the prior 04/21 study; no interval pathology appreciated between 2 exams. If symptoms worsen consider MRI. 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
[2016-07-12] MEDS: Magnesium Oxide 400 mg Tab UD PO SCH ×2 (10:04→17:32)
[2016-07-12] MEDS: Enoxaparin 40 mg Syringe SC SCH (10:04)
--- NOTE | 2016-07-13 07:25 | CP.PCM.PN ---
<CecilioSangeeta eagle - Last Filed: 07/13/16 12:39> Subjective - Date & Time of Evaluation Date of Evaluation: 07/13/16 Time of Evaluation: 07:24 - Subjective Subjective: Patient seen and examined at bedside. No acute events per nursing. Patient states he has pain to his right knee radiating down his lower extremity. He also admits to mild abdominal discomfort. Patient states he had soft bowel movement this morning. He denies chest pain, palpitations, shortness of breath, nausea, vomiting, dysuria. Objective - Vital Signs/Intake and Output Vital Signs (last 24 hours): Temp Pulse Resp BP Pulse Ox 98.1 F 73 20 113/71 98 07/12/16 23:57 07/12/16 23:57 07/12/16 23:57 07/12/16 23:57 07/12/16 23:57 Intake and Output: 07/13/16 07/13/16 06:59 18:59 Intake Total 250 Balance 250 - Medications Medications: Current Medications Acetaminophen (Tylenol 325mg Tab) 650 mg PO Q6 PRN PRN Reason: Pain, Mild (1-3) Last Admin: 07/02/16 21:37 Dose: 650 mg Docusate Sodium (Colace) 100 mg PO BID [facility] Last Admin: 06/30/16 09:13 Dose: Not Given Enoxaparin Sodium (Lovenox) 40 mg SC DAILY [facility] Last Admin: 07/12/16 10:04 Dose: 40 mg Famotidine (Pepcid) 20 mg PO BID [facility] Last Admin: 07/12/16 17:32 Dose: 20 mg Ketoconazole (Nizoral) 0 gm TOP BID [facility] Last Admin: 07/12/16 17:32 Dose: 1 applic Loperamide HCl (Imodium) 2 mg PO QID PRN PRN Reason: Diarrhea Last Admin: 07/01/16 20:22 Dose: 2 mg Magnesium Oxide (Mag-Ox) 400 mg PO BID [facility] Last Admin: 07/12/16 17:32 Dose: 400 mg Polyethylene Glycol (Miralax) 17 gm PO Q2D [facility] Last Admin: 06/29/16 10:44 Dose: Not Given Sodium Chloride (Sodium Chloride Tab) 1 gm PO DAILY@1330 [facility] Last Admin: 07/12/16 13:24 Dose: 1 gm Tamsulosin HCl (Flomax) 0.8 mg PO DAILY [facility] Last Admin: 07/12/16 10:04 Dose: 0.8 mg Tramadol HCl (Ultram) 25 mg PO TID PRN PRN Reason: Pain, moderate (4-7) Last Admin: 07/10/16 09:21 Dose: 25 mg - Labs Labs: 07/10/16 12:53 07/10/16 09:22 - Constitutional Appears: Non-toxic, No Acute Distress - Head Exam Head Exam: ATRAUMATIC, NORMAL INSPECTION, NORMOCEPHALIC - Eye Exam Eye Exam: EOMI, Normal appearance, PERRL - ENT Exam ENT Exam: Mucous Membranes Moist - Neck Exam Neck Exam: Full ROM, Normal Inspection - Respiratory Exam Respiratory Exam: Clear to Ausculation Bilateral, NORMAL BREATHING PATTERN. absent: Rales, Rhonchi, Wheezes - Cardiovascular Exam Cardiovascular Exam: +S1, +S2. absent: Tachycardia - GI/Abdominal Exam GI & Abdominal Exam: Soft, Normal Bowel Sounds. absent: Firm, Guarding, Rigid, Tenderness - Extremities Exam Extremities Exam: Full ROM, Normal Inspection, Tenderness - Back Exam Back Exam: NORMAL INSPECTION - Neurological Exam Neurological Exam: Alert, Awake, Oriented x3 - Psychiatric Exam Psychiatric exam: Normal Affect, Normal Mood - Skin Additional comments: decreased erythema and scale to face Assessment and Plan - Assessment and Plan (Free Text) Assessment: Fracture of tibia, proximal, right, closed; pain management and physical therapy Continue physical therapy; goal is for use of cane per ortho. Patient is progressively weight bearing. No ortho intervention needed at this time. Continue to try to get a facility to accept patient with ambulatory cane. Tylenol 650 mg PO Q6 PRN mild pain Tramadol 25mg TID pRN Daily physical therapy L knee x-ray: severe osteopenia. Sclerotic changes about the posterior proximal tibia may relate to a sclerotic healing response of a prior stress fracture here. no tibial plateau depressed fracture. The sclerosis is perceived on the prior 04/21 study; no interval pathology appreciated between 2 exams. If symptoms worsen consider MRI. 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 imaging every [address] scan in 03/2016, should be monitored in September, Sacral decubitus- resolved Out of bed into chair daily History of Urinary Tract Infection Continue to monitor Most recent 06/22 Currently asymptomatic Seborrheic Dermatitis Continue Ketoconazole 2% to affected areas of face BID and Ketoconazole 2% Shampoo to hair twice weekly Soft Stools f/u stool cultures, c.diff. Prophylactic Measure Labs weekly on Sunday Lovenox 40mg SC daily Pepcid 20mg PO BID Patient is homeless. Used to stay with friend, but no longer welcome there. Goal is to walk with cane so he can go to a residential (will not qualify with a walker) Disposition Reaching out to family in [facility] - no response from family per case management Social Work is following up Cannot be discharged to residential due to functional status Continue to work with PT No new changes to pt status or plan Palliative care consulted - pt agrees to DNR/DNI- cont current medical mgmt, rec for Silvadene to buttock <Sukhwinder Rutherford - Last Filed: 07/13/16 14:29> Objective - Vital Signs/Intake and Output Vital Signs (last 24 hours): Temp Pulse Resp BP Pulse Ox 97.7 F 70 19 109/68 98 07/13/16 08:02 07/13/16 08:02 07/13/16 08:02 07/13/16 08:02 07/13/16 08:02 Intake and Output: 07/13/16 07/13/16 06:59 18:59 Intake Total 250 240 Output Total 250 Balance 250 -10 - Medications Medications: Current Medications Acetaminophen (Tylenol 325mg Tab) 650 mg PO Q6 PRN PRN Reason: Pain, Mild (1-3) Last Admin: 07/02/16 21:37 Dose: 650 mg Docusate Sodium (Colace) 100 mg PO BID [facility] Last Admin: 06/30/16 09:13 Dose: Not Given Enoxaparin Sodium (Lovenox) 40 mg SC DAILY [facility] Last Admin: 07/13/16 09:36 Dose: 40 mg Famotidine (Pepcid) 20 mg PO BID [facility] Last Admin: 07/13/16 09:34 Dose: 20 mg Ketoconazole (Nizoral) 0 gm TOP BID [facility] Last Admin: 07/13/16 13:21 Dose: Not Given Loperamide HCl (Imodium) 2 mg PO QID PRN PRN Reason: Diarrhea Last Admin: 07/13/16 09:34 Dose: 2 mg Magnesium Oxide (Mag-Ox) 400 mg PO BID [facility] Last Admin: 07/13/16 09:34 Dose: 400 mg Polyethylene Glycol (Miralax) 17 gm PO Q2D [facility] Last Admin: 06/29/16 10:44 Dose: Not Given Sodium Chloride (Sodium Chloride Tab) 1 gm PO DAILY@1330 [facility] Last Admin: 07/13/16 13:59 Dose: 1 gm Tamsulosin HCl (Flomax) 0.8 mg PO DAILY [facility] Last Admin: 07/13/16 09:35 Dose: 0.8 mg Tramadol HCl (Ultram) 25 mg PO TID PRN PRN Reason: Pain, moderate (4-7) Last Admin: 07/10/16 09:21 Dose: 25 mg - Labs Labs: 07/10/16 12:53 07/10/16 09:22 Attending/Attestation - Attestation I have personally seen and examined this patient.: Yes I have fully participated in the care of the patient.: Yes I have reviewed all pertinent clinical information, including history, physical exam and plan: Yes
[2016-07-13] MEDS: Magnesium Oxide 400 mg Tab UD PO SCH ×2 (09:34→17:42)
[2016-07-13] MEDS: Enoxaparin 40 mg Syringe SC SCH (09:36)
[2016-07-14] MEDS: Magnesium Oxide 400 mg Tab UD PO SCH ×2 (09:57→17:52)
[2016-07-14] MEDS: Enoxaparin 40 mg Syringe SC SCH (09:57)
--- NOTE | 2016-07-14 15:33 | CP.PCM.PN ---
<Tessa Molina - Last Filed: 07/14/16 15:31> Subjective - Date & Time of Evaluation Date of Evaluation: 07/14/16 Time of Evaluation: 12:31 - Subjective Subjective: Medicine Progress Note: Patient seen and examined at beside this AM. Patient reports some right knee pain this AM. Denies chest pain, SOB, fevers, chills, nausea, palpitations, vomiting. Objective - Vital Signs/Intake and Output Vital Signs (last 24 hours): Temp Pulse Resp BP Pulse Ox 97.4 F L 83 20 111/69 98 07/14/16 09:00 07/14/16 09:00 07/14/16 09:00 07/14/16 09:00 07/14/16 09:00 Intake and Output: 07/14/16 07/14/16 06:59 18:59 Intake Total 550 Output Total 450 Balance 100 - Medications Medications: Current Medications Acetaminophen (Tylenol 325mg Tab) 650 mg PO Q6 PRN PRN Reason: Pain, Mild (1-3) Last Admin: 07/02/16 21:37 Dose: 650 mg Docusate Sodium (Colace) 100 mg PO BID [facility] Last Admin: 06/30/16 09:13 Dose: Not Given Enoxaparin Sodium (Lovenox) 40 mg SC DAILY [facility] Last Admin: 07/14/16 09:57 Dose: 40 mg Famotidine (Pepcid) 20 mg PO BID [facility] Last Admin: 07/14/16 09:57 Dose: 20 mg Ketoconazole (Nizoral) 0 gm TOP BID [facility] Last Admin: 07/14/16 09:58 Dose: Not Given Loperamide HCl (Imodium) 2 mg PO QID PRN PRN Reason: Diarrhea Last Admin: 07/13/16 09:34 Dose: 2 mg Magnesium Oxide (Mag-Ox) 400 mg PO BID [facility] Last Admin: 07/14/16 09:57 Dose: 400 mg Polyethylene Glycol (Miralax) 17 gm PO Q2D [facility] Last Admin: 06/29/16 10:44 Dose: Not Given Sodium Chloride (Sodium Chloride Tab) 1 gm PO DAILY@1330 [facility] Last Admin: 07/14/16 13:15 Dose: 1 gm Tamsulosin HCl (Flomax) 0.8 mg PO DAILY [facility] Last Admin: 07/14/16 09:56 Dose: 0.8 mg Tramadol HCl (Ultram) 25 mg PO TID PRN PRN Reason: Pain, moderate (4-7) Last Admin: 07/10/16 09:21 Dose: 25 mg - Labs Labs: 07/10/16 12:53 07/10/16 09:22 - Constitutional Appears: No Acute Distress - Head Exam Head Exam: NORMAL INSPECTION, NORMOCEPHALIC - Eye Exam Eye Exam: EOMI, Normal appearance - ENT Exam ENT Exam: Mucous Membranes Moist - Neck Exam Neck Exam: Full ROM, Normal Inspection - Respiratory Exam Respiratory Exam: Clear to Ausculation Bilateral, NORMAL BREATHING PATTERN - Cardiovascular Exam Cardiovascular Exam: REGULAR RHYTHM, +S1, +S2 - GI/Abdominal Exam GI & Abdominal Exam: Soft. absent: Distended, Tenderness - Extremities Exam Extremities Exam: Full ROM, Normal Inspection - Back Exam Back Exam: NORMAL INSPECTION - Neurological Exam Neurological Exam: Alert, Awake, Oriented x3 - Psychiatric Exam Psychiatric exam: Normal Affect, Normal Mood - Skin Skin Exam: Normal Color, Warm Assessment and Plan - Assessment and Plan (Free Text) Assessment: Fracture of tibia, proximal, right, closed; pain management and physical therapy Continue physical therapy; goal is for use of cane per ortho. Patient is progressively weight bearing. No ortho intervention needed at this time. Continue to try to get a facility to accept patient with ambulatory cane. Tylenol 650 mg PO Q6 PRN mild pain Tramadol 25mg TID pRN Daily physical therapy L knee x-ray: severe osteopenia. Sclerotic changes about the posterior proximal tibia may relate to a sclerotic healing response of a prior stress fracture here. no tibial plateau depressed fracture. The sclerosis is perceived on the prior 04/21 study; no interval pathology appreciated between 2 exams. If symptoms worsen consider MRI. 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 imaging every [address] scan in 03/2016, should be monitored in September, Sacral decubitus- resolved Out of bed into chair daily History of Urinary Tract Infection Continue to monitor Most recent 06/22 Currently asymptomatic Seborrheic Dermatitis Continue Ketoconazole 2% to affected areas of face BID and Ketoconazole 2% Shampoo to hair twice weekly Soft Stools f/u stool cultures c.diff. - negative hold colace for now Prophylactic Measure Labs weekly on Sunday Lovenox 40mg SC daily Pepcid 20mg PO BID Patient is homeless. Used to stay with friend, but no longer welcome there. Goal is to walk with cane so he can go to a penitentiary (will not qualify with a walker) Disposition Reaching out to family in [facility] - no response from family per case management Social Work is following up Cannot be discharged to penitentiary due to functional status Continue to work with PT No new changes to pt status or plan Palliative care consulted - pt agrees to DNR/DNI- cont current medical mgmt, rec for Silvadene to buttock <Parker Cantu - Last Filed: 08/11/16 11:47> Objective - Vital Signs/Intake and Output Vital Signs (last 24 hours): Temp Pulse Resp BP Pulse Ox 97.8 F 71 20 118/74 97 08/11/16 08:15 08/11/16 08:15 08/11/16 08:15 08/11/16 08:15 08/11/16 08:15 Intake and Output: 08/11/16 08/11/16 06:59 18:59 Intake Total 400 Balance 400 - Medications Medications: Current Medications Acetaminophen (Tylenol 325mg Tab) 650 mg PO Q6 PRN PRN Reason: Pain, Mild (1-3) Enoxaparin Sodium (Lovenox) 40 mg SC DAILY [facility] Last Admin: 08/11/16 10:37 Dose: 40 mg Famotidine (Pepcid) 20 mg PO BID [facility] Last Admin: 08/11/16 10:38 Dose: 20 mg Lidocaine (Lidoderm) 1 ea TD DAILY [facility] Last Admin: 08/11/16 10:37 Dose: 1 ea Tamsulosin HCl (Flomax) 0.8 mg PO DAILY [facility] Last Admin: 08/11/16 10:37 Dose: 0.8 mg Tramadol HCl (Ultram) 50 mg PO TID PRN PRN Reason: Pain, moderate (4-7) Last Admin: 08/11/16 00:35 Dose: 50 mg - Labs Labs: 08/07/16 10:56 08/07/16 10:56 Attending/Attestation - Attestation I have personally seen and examined this patient.: Yes I have fully participated in the care of the patient.: Yes I have reviewed all pertinent clinical information, including history, physical exam and plan: Yes Notes (Text): Patient seen and examined with the resident. Agree with the resident's evaluation, assessment and plan. Fracture of tibia, proximal, right, closed; pain management and physical therapy Gait Instability; will continue with PT/OT 8 weeks of immobilization and protected WB as per ortho
--- NOTE | 2016-07-15 02:16 | CP.PCM.PN ---
<JazmyneLyjan - Last Filed: 07/15/16 03:02> Subjective - Date & Time of Evaluation Date of Evaluation: 07/15/16 Time of Evaluation: 02:14 - Subjective Subjective: PGY 1 Medicine Note- Dr. Rutherford's service Pt seen and examined in no acute distress. Patient reports right thigh pain and some inguinal pain . Patient states that the pain comes and goes. He denies subjective fevers or chills, chest pain, palpitations, shortness of breath, nausea, vomiting, dysuria, diarrhea or constipation at this time. Objective - Vital Signs/Intake and Output Vital Signs (last 24 hours): Temp Pulse Resp BP Pulse Ox 98 F 70 20 97/60 L 96 07/15/16 00:00 07/15/16 00:00 07/15/16 00:00 07/15/16 00:00 07/15/16 00:00 Intake and Output: 07/14/16 07/15/16 18:59 06:59 Intake Total 550 Output Total 450 Balance 100 - Medications Medications: Current Medications Acetaminophen (Tylenol 325mg Tab) 650 mg PO Q6 PRN PRN Reason: Pain, Mild (1-3) Last Admin: 07/02/16 21:37 Dose: 650 mg Docusate Sodium (Colace) 100 mg PO BID [facility] Last Admin: 06/30/16 09:13 Dose: Not Given Enoxaparin Sodium (Lovenox) 40 mg SC DAILY [facility] Last Admin: 07/14/16 09:57 Dose: 40 mg Famotidine (Pepcid) 20 mg PO BID [facility] Last Admin: 07/14/16 17:53 Dose: 20 mg Ketoconazole (Nizoral) 0 gm TOP BID [facility] Last Admin: 07/14/16 17:53 Dose: 1 applic Loperamide HCl (Imodium) 2 mg PO QID PRN PRN Reason: Diarrhea Last Admin: 07/13/16 09:34 Dose: 2 mg Magnesium Oxide (Mag-Ox) 400 mg PO BID [facility] Last Admin: 07/14/16 17:52 Dose: 400 mg Polyethylene Glycol (Miralax) 17 gm PO Q2D [facility] Last Admin: 06/29/16 10:44 Dose: Not Given Sodium Chloride (Sodium Chloride Tab) 1 gm PO DAILY@1330 [facility] Last Admin: 07/14/16 13:15 Dose: 1 gm Tamsulosin HCl (Flomax) 0.8 mg PO DAILY [facility] Last Admin: 07/14/16 09:56 Dose: 0.8 mg Tramadol HCl (Ultram) 25 mg PO TID PRN PRN Reason: Pain, moderate (4-7) Last Admin: 07/10/16 09:21 Dose: 25 mg - Labs Labs: 07/10/16 12:53 07/10/16 09:22 - Constitutional Appears: Non-toxic, No Acute Distress - Head Exam Head Exam: ATRAUMATIC, NORMAL INSPECTION, NORMOCEPHALIC Additional comments: seborrheic dermatitis noted on face - Eye Exam Eye Exam: EOMI, Normal appearance, PERRL Pupil Exam: NORMAL ACCOMODATION - ENT Exam ENT Exam: Mucous Membranes Moist - Neck Exam Neck Exam: Full ROM, Normal Inspection - Respiratory Exam Respiratory Exam: NORMAL BREATHING PATTERN. absent: Wheezes - Cardiovascular Exam Cardiovascular Exam: +S1, +S2 - GI/Abdominal Exam GI & Abdominal Exam: Soft, Normal Bowel Sounds. absent: Tenderness - Exam Additional comments: inguinal hernia noted b/l - Extremities Exam Extremities Exam: Normal Capillary Refill. absent: Full ROM Additional comments: dressing on right thomas noted c/d/i - Back Exam Back Exam: Full ROM - Neurological Exam Neurological Exam: Alert, Awake, CN II-XII Intact, Oriented x3 - Psychiatric Exam Psychiatric exam: Normal Affect, Normal Mood - Skin Skin Exam: Dry, Normal Color, Warm Assessment and Plan - Assessment and Plan (Free Text) Assessment: Fracture of tibia, proximal, right, closed; pain management and physical therapy Continue physical therapy; goal is for use of cane per ortho. Cane present bedside Patient is progressively weight bearing. No ortho intervention needed at this time. Continue to try to get a facility to accept patient with ambulatory cane. Tylenol 650 mg PO Q6 PRN mild pain Tramadol 25mg TID pRN Daily physical therapy L knee x-ray: severe osteopenia. Sclerotic changes about the posterior proximal tibia may relate to a sclerotic healing response of a prior stress fracture here. no tibial plateau depressed fracture. The sclerosis is perceived on the prior /10 study; no interval pathology appreciated between 2 exams. If symptoms worsen consider MRI. 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 imaging every [address] scan in 03/2016, should be monitored in September, Sacral decubitus- resolved Out of bed into chair daily History of Urinary Tract Infection Continue to monitor Most recent 06/22 Currently asymptomatic Seborrheic Dermatitis Continue Ketoconazole 2% to affected areas of face BID and Ketoconazole 2% Shampoo to hair twice weekly Soft Stools f/u stool cultures as needed c.diff. - negative hold colace for now Prophylactic Measure Labs weekly on Sunday Lovenox 40mg SC daily Pepcid 20mg PO BID Patient is homeless. Used to stay with friend, but no longer welcome there. Goal is to walk with cane so he can go to a detention (will not qualify with a walker) Disposition Reaching out to family in [facility] - no response from family per case management Social Work is following up Cannot be discharged to detention due to functional status Continue to work with PT No new changes to pt status or plan Palliative care consulted - pt agrees to DNR/DNI- cont current medical mgmt, recommendations for Silvadene to buttocks <Parker Cantu - Last Filed: 08/23/16 14:07> Objective - Vital Signs/Intake and Output Vital Signs (last 24 hours): Temp Pulse Resp BP Pulse Ox 98.5 F 82 20 109/69 97 08/23/16 08:00 08/23/16 08:00 08/23/16 08:00 08/23/16 08:00 08/23/16 08:00 Intake and Output: 08/23/16 08/23/16 06:59 18:59 Intake Total 810 400 Balance 810 400 - Medications Medications: Current Medications Acetaminophen (Tylenol 325mg Tab) 650 mg PO Q6 PRN PRN Reason: Pain, Mild (1-3) Last Admin: 08/23/16 09:12 Dose: 650 mg Bisacodyl (Dulcolax) 5 mg PO Q12 PRN PRN Reason: Constipation Last Admin: 08/18/16 14:47 Dose: 5 mg Enoxaparin Sodium (Lovenox) 40 mg SC DAILY [facility] Last Admin: 08/23/16 09:12 Dose: 40 mg Famotidine (Pepcid) 20 mg PO BID [facility] Last Admin: 08/23/16 09:12 Dose: 20 mg Lidocaine (Lidoderm) 1 ea TD DAILY [facility] Last Admin: 08/23/16 09:13 Dose: 1 ea Polyethylene Glycol (Miralax) 17 gm PO DAILY [facility] Last Admin: 08/21/16 09:12 Dose: Not Given Simethicone (Mylicon Chew Tab) 80 mg PO QID PRN PRN Reason: GI distress Last Admin: 08/22/16 09:42 Dose: 80 mg Tamsulosin HCl (Flomax) 0.8 mg PO DAILY [facility] Last Admin: 08/23/16 09:11 Dose: 0.8 mg Tramadol HCl (Ultram) 50 mg PO TID PRN PRN Reason: Pain, moderate (4-7) Last Admin: 08/23/16 09:11 Dose: 50 mg - Labs Labs: 08/21/16 11:16 08/21/16 11:16 Attending/Attestation - Attestation I have personally seen and examined this patient.: Yes I have fully participated in the care of the patient.: Yes I have reviewed all pertinent clinical information, including history, physical exam and plan: Yes Notes (Text): Patient Seen and examined with the resident. Agree with the resident's evaluation, assessment and plan. Fracture of tibia, proximal, right, closed; pain management and physical therapy Continue physical therapy; goal is for use of cane per ortho. Cane present bedside Gait Instability; will continue with PT/OT 8 weeks of immobilization and protected WB as per ortho BPH Flomax 0.8 mg PO daily
[2016-07-15] MEDS: Magnesium Oxide 400 mg Tab UD PO SCH ×2 (09:24→18:14)
[2016-07-15] MEDS: Enoxaparin 40 mg Syringe SC SCH (09:24)
[2016-07-15] MEDS: Tramadol 25 mg PO PRN (21:52)
[2016-07-15] MEDS ORDERED: POLYETHYLENE GLYCOL 3350 17 GM/Dose PACKET PO SCH (22:00)
--- NOTE | 2016-07-16 00:57 | CP.PCM.PN ---
<JazmyneLyjan - Last Filed: 07/16/16 00:52> Subjective - Date & Time of Evaluation Date of Evaluation: 07/16/16 Time of Evaluation: 00:53 - Subjective Subjective: PGY 1 Medicine Note- Dr. Rutherford's service Pt seen and examined in no acute distress. Patient reports right thigh pain waxing and waning in nature. Patient instructed to ask for pain meds when in need. He denies subjective fevers or chills, chest pain, palpitations, shortness of breath, nausea, vomiting, dysuria, diarrhea or constipation at this time. Objective - Vital Signs/Intake and Output Vital Signs (last 24 hours): Temp Pulse Resp BP Pulse Ox 97.7 F 69 21 115/70 100 07/15/16 16:00 07/15/16 16:00 07/15/16 16:00 07/15/16 16:00 07/15/16 16:00 Intake and Output: 07/15/16 07/16/16 18:59 06:59 Intake Total 700 300 Output Total 0 Balance 700 300 - Medications Medications: Current Medications Acetaminophen (Tylenol 325mg Tab) 650 mg PO Q6 PRN PRN Reason: Pain, Mild (1-3) Last Admin: 07/02/16 21:37 Dose: 650 mg Docusate Sodium (Colace) 100 mg PO BID [facility] Last Admin: 07/15/16 18:15 Dose: 100 mg Enoxaparin Sodium (Lovenox) 40 mg SC DAILY [facility] Last Admin: 07/15/16 09:24 Dose: 40 mg Famotidine (Pepcid) 20 mg PO BID [facility] Last Admin: 07/15/16 18:14 Dose: 20 mg Ketoconazole (Nizoral) 0 gm TOP BID [facility] Last Admin: 07/15/16 18:16 Dose: 1 applic Magnesium Oxide (Mag-Ox) 400 mg PO BID [facility] Last Admin: 07/15/16 18:14 Dose: 400 mg Polyethylene Glycol (Miralax) 17 gm PO [facility] Sodium Chloride (Sodium Chloride Tab) 1 gm PO DAILY@1330 [facility] Last Admin: 07/15/16 13:02 Dose: 1 gm Tamsulosin HCl (Flomax) 0.8 mg PO DAILY [facility] Last Admin: 07/15/16 09:24 Dose: 0.8 mg Tramadol HCl (Ultram) 25 mg PO TID PRN PRN Reason: Pain, moderate (4-7) Last Admin: 07/15/16 21:52 Dose: 25 mg - Labs Labs: 07/10/16 12:53 07/10/16 09:22 - Constitutional Appears: Non-toxic, No Acute Distress - Head Exam Head Exam: ATRAUMATIC, NORMAL INSPECTION, NORMOCEPHALIC Additional comments: seborrheic dermatitis noted on face - Eye Exam Eye Exam: EOMI, Normal appearance - ENT Exam ENT Exam: Mucous Membranes Moist - Neck Exam Neck Exam: Full ROM, Normal Inspection - Respiratory Exam Respiratory Exam: NORMAL BREATHING PATTERN - Cardiovascular Exam Cardiovascular Exam: +S1, +S2 - GI/Abdominal Exam GI & Abdominal Exam: Soft, Normal Bowel Sounds - Exam Additional comments: inguinal hernia noted b/l - Extremities Exam Extremities Exam: Normal Capillary Refill. absent: Full ROM Additional comments: dressing on right thomas noted c/d/i - Back Exam Back Exam: Full ROM - Neurological Exam Neurological Exam: Alert, Awake, CN II-XII Intact, Oriented x3 - Psychiatric Exam Psychiatric exam: Flat Affect, Normal Affect, Normal Mood - Skin Skin Exam: Dry, Normal Color, Warm Assessment and Plan - Assessment and Plan (Free Text) Assessment: Fracture of tibia, proximal, right, closed; pain management and physical therapy Continue physical therapy; goal is for use of cane per ortho. Cane present bedside Patient is progressively weight bearing. No ortho intervention needed at this time. Continue to try to get a facility to accept patient with ambulatory cane. Tylenol 650 mg PO Q6 PRN mild pain Tramadol 25mg TID PRN. Patient instructed to ask for pain when necessary. Daily physical therapy L knee x-ray: severe osteopenia. Sclerotic changes about the posterior proximal tibia may relate to a sclerotic healing response of a prior stress fracture here. no tibial plateau depressed fracture. The sclerosis is perceived on the prior 04/21 study; no interval pathology appreciated between 2 exams. If symptoms worsen consider MRI. 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 imaging every [address] scan in 03/2016, should be monitored in September, Sacral decubitus- resolved Out of bed into chair daily Recommendations for silvadene creme to affected buttocks area History of Urinary Tract Infection Continue to monitor Most recent 06/22 Currently asymptomatic Seborrheic Dermatitis Continue Ketoconazole 2% to affected areas of face BID and Ketoconazole 2% Shampoo to hair twice weekly Cont to monitor progression Soft Stools f/u stool cultures as needed c.diff. - negative hold colace for now Prophylactic Measure Labs weekly on Sunday Lovenox 40mg SC daily Pepcid 20mg PO BID Patient is homeless. Used to stay with friend, but no longer welcome there. Goal is to walk with cane so he can go to a [place] [facility] (will not qualify with a walker) Disposition Reaching out to family in [facility] - no response from family per case management Social Work is following up [place] be [place] [facility] [place] due to functional status Continue to work with PT No new changes to pt status or plan Palliative care consulted - pt agrees to DNR/DNI- cont current medical mgmt, <Parker Cantu - Last Filed: 08/23/16 14:13> Objective - Vital Signs/Intake and Output Vital Signs (last 24 hours): Temp Pulse Resp BP Pulse Ox 98.5 F 82 20 109/69 97 08/23/16 08:00 08/23/16 08:00 08/23/16 08:00 08/23/16 08:00 08/23/16 08:00 Intake and Output: 08/23/16 08/23/16 06:59 18:59 Intake Total 810 400 Balance 810 400 - Medications Medications: Current Medications Acetaminophen (Tylenol 325mg Tab) 650 mg PO Q6 PRN PRN Reason: Pain, Mild (1-3) Last Admin: 08/23/16 09:12 Dose: 650 mg Bisacodyl (Dulcolax) 5 mg PO Q12 PRN PRN Reason: Constipation Last Admin: 08/18/16 14:47 Dose: 5 mg Enoxaparin Sodium (Lovenox) 40 mg SC DAILY [facility] Last Admin: 06/14/17 09:12 Dose: 40 mg Famotidine (Pepcid) 20 mg PO BID [facility] Last Admin: 08/23/16 09:12 Dose: 20 mg Lidocaine (Lidoderm) 1 ea TD DAILY [facility] Last Admin: 08/23/16 09:13 Dose: 1 ea Polyethylene Glycol (Miralax) 17 gm PO DAILY [facility] Last Admin: 08/21/16 09:12 Dose: Not Given Simethicone (Mylicon Chew Tab) 80 mg PO QID PRN PRN Reason: GI distress Last Admin: 08/22/16 09:42 Dose: 80 mg Tamsulosin HCl (Flomax) 0.8 mg PO DAILY [facility] Last Admin: 08/23/16 09:11 Dose: 0.8 mg Tramadol HCl (Ultram) 50 mg PO TID PRN PRN Reason: Pain, moderate (4-7) Last Admin: 08/23/16 09:11 Dose: 50 mg - Labs Labs: 08/21/16 11:16 08/21/16 11:16 Attending/Attestation - Attestation I have personally seen and examined this patient.: Yes I have fully participated in the care of the patient.: Yes I have reviewed all pertinent clinical information, including history, physical exam and plan: Yes Notes (Text): Patient Seen and examined with the resident. Agree with the resident's evaluation, assessment and plan. Fracture of tibia, proximal, right, closed; pain management and physical therapy Continue physical therapy; goal is for use of cane per ortho. Cane present bedside Gait Instability; will continue with PT/OT 8 weeks of immobilization and protected WB as per ortho BPH Flomax 0.8 mg PO daily
[2016-07-16] MEDS: Tramadol 25 mg PO PRN (08:06)
[2016-07-16] MEDS: Enoxaparin 40 mg Syringe SC SCH (09:54)
[2016-07-16] MEDS: Magnesium Oxide 400 mg Tab UD PO SCH ×2 (11:15→18:17)
[2016-07-17] MEDS: Enoxaparin 40 mg Syringe SC SCH (09:47)
[2016-07-17] MEDS: Magnesium Oxide 400 mg Tab UD PO SCH ×2 (09:48→18:08)
--- NOTE | 2016-07-17 11:03 | CP.PCM.PN ---
Subjective - Date & Time of Evaluation Date of Evaluation: 07/17/16 Time of Evaluation: 10:00 - Subjective Subjective: Patient sitting in chair. Denies CP/SOB/dizziness. Complains of right hip pain. No new complaints Objective - Vital Signs/Intake and Output Vital Signs (last 24 hours): Temp Pulse Resp BP Pulse Ox 97.9 F 79 20 128/75 97 07/16/16 23:40 07/16/16 23:40 07/16/16 23:40 07/16/16 23:40 07/16/16 23:40 Intake and Output: 07/17/16 07/17/16 06:59 18:59 Intake Total 150 Balance 150 - Medications Medications: Current Medications Acetaminophen (Tylenol 325mg Tab) 650 mg PO Q6 PRN PRN Reason: Pain, Mild (1-3) Last Admin: 07/02/16 21:37 Dose: 650 mg Docusate Sodium (Colace) 100 mg PO BID [facility] Last Admin: 07/17/16 09:48 Dose: 100 mg Enoxaparin Sodium (Lovenox) 40 mg SC DAILY [facility] Last Admin: 07/17/16 09:47 Dose: 40 mg Famotidine (Pepcid) 20 mg PO BID [facility] Last Admin: 07/17/16 09:48 Dose: 20 mg Ketoconazole (Nizoral) 0 gm TOP BID [facility] Last Admin: 07/17/16 09:51 Dose: 1 applic Magnesium Oxide (Mag-Ox) 400 mg PO BID [facility] Last Admin: 07/17/16 09:48 Dose: 400 mg Polyethylene Glycol (Miralax) 17 gm PO [facility] Sodium Chloride (Sodium Chloride Tab) 1 gm PO DAILY@1330 [facility] Last Admin: 07/16/16 14:02 Dose: 1 gm Tamsulosin HCl (Flomax) 0.8 mg PO DAILY [facility] Last Admin: 07/17/16 09:48 Dose: 0.8 mg Tramadol HCl (Ultram) 25 mg PO TID PRN PRN Reason: Pain, moderate (4-7) Last Admin: 07/16/16 08:06 Dose: 25 mg - Labs Labs: 07/10/16 12:53 07/10/16 09:22 - Constitutional Appears: Well, No Acute Distress - Head Exam Head Exam: ATRAUMATIC, NORMAL INSPECTION - Respiratory Exam Respiratory Exam: NORMAL BREATHING PATTERN - Cardiovascular Exam Additional comments: +DP/PT pulses - Extremities Exam Additional comments: RLE: gradually improving strength. Patient with some active hip flexion, but still with lag to knee. limited active extension of knee, but this a little less assistance is needed. Still unable to extend knee against gravity. Sensation intact ROM 0 to 90 degrees - Neurological Exam Neurological Exam: Alert, Awake, Oriented x3 Neuro motor strength exam: Right Lower Extremity: 5 (5/5 ankle DF/PF, toes flex/ ext) - Psychiatric Exam Psychiatric exam: Normal Affect, Normal Mood - Skin Skin Exam: Dry, Normal Color, Warm Assessment and Plan (1) Acetabular protrusion Assessment & Plan: stable no ortho intervention patient is homeless, without family, and must have no other assistive device other than cane to be accepted to [facility], so goals of therapy and weight bearing are limited to WBAT and wean crutches to cane d/w Dr. Pino, agrees with above Status: Chronic (2) Fracture of tibia, proximal, right, closed Assessment & Plan: f/u imaging reviewd PT/OT plan as above no increased pain since removal of knee immob Status: Chronic Radiology Interpretation - Notes: Notes:: Patient Name / ID : ESME QUESADA / [id number] Exam Date : 07/11/2016 08:57:11 ( Approved ) Study Comment : Sex / Age : M / 71Y Creator : Sarahi Osorio V. Dictator : Sarahi Osorio V. Engine Lathe Set Up Operator Tool : Mri Supervisor : Sarahi Osorio V. Approver2 : Report Date : 07/11/2016 09:41:02 My Comment : PROCEDURE: Right Hip Radiographs. 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 The radiolucency surrounding the acetabular component is renoted. There is severe demineralization if not interruption of the right medial osseous barrier to the right acetabular prosthesis. This osseous paucity and/or absence of medial right acetabular osseous barrier is worth noting for its potential for a pathological fracture here and in regards to any weight-bearing No gross change in alignment is perceived. JOINTS: As above SOFT TISSUES: Normal. OTHER FINDINGS: None. IMPRESSION: No interval change noted. Please read the above bone section - Radiology Interpretation #2 Interpretation: Patient Name / ID : ESME QUESADA / [id number] Exam Date : 07/11/2016 08:54:54 ( Approved ) Study Comment : Sex / Age : M / 71Y Creator : Sarahi Osorio V. Dictator : Sarahi Osorio V. Engine Lathe Set Up Operator Tool : Mri Supervisor : Sarahi Osorio V. Approver2 : Report Date : 07/11/2016 09:51:25 My Comment : PROCEDURE: Right Knee Radiographs. HISTORY: f/u stress fracture, now weight bearing COMPARISON: 06/26/2016 FINDINGS: BONES: No interval fractures appreciated. Marked osteopenia discontinuous cerclage wire transfixing a remote patellar nondisplaced fracture -similar-appearing JOINTS: osteoarthritis. Patellofemoral compartment most notable JOINT EFFUSION: None. OTHER FINDINGS: Posterior posterior casting stabilizer has been removed well corticated ossification anterior tibial plateau consistent with remote trauma similar- appearing IMPRESSION: No interval change appreciated apart from the removal of the prior posterior casting stabilizer
[2016-07-17 11:48] LABS: BASO % 0.5 % (0.0-2.0); EOS # 0.1 K/uL (0.0-0.7); EOS % 1.6 % (0.0-4.0); HEMOGLOBIN 12.3 g/dL (12.0-18.0); LYMPH # 1.1 K/uL (1.0-4.3); LYMPH % 28.1 % (20.0-40.0); MEAN CELL VOLUME 96.5 fL (80.0-94.0); MEAN CORPUSCULAR HEMOGLOBIN 32.4 pg (27.0-31.0); MEAN CORPUSCULAR HGB CONC 33.5 g/dL (33.0-37.0); MEAN PLATELET VOLUME 8.4 fL (7.2-11.7); MONO # 0.4 K/uL (0.0-0.8); MONO % 9.9 % (0.0-10.0); NEUT # 2.3 K/uL (1.8-7.0); NEUT % 59.9 % (50.0-75.0); NRBC % 0.1 % (0.0-2.0); RBC 3.81 Mil/uL (4.40-5.90); RED CELL DISTRIBUTION WIDTH 13.2 % (11.5-14.5); WHITE BLOOD COUNT 3.9 K/uL (4.8-10.8)
[2016-07-17 11:55] LABS: ALT/SGPT 14 U/L (21-72); AST/SGOT 17 U/L (17-59); BLOOD UREA NITROGEN 11 mg/dL (9-20); GFR AFRICAN-AMERICAN > 60; GFR NON-AFRICAN AMERICAN > 60
--- NOTE | 2016-07-17 17:06 | CP.PCM.PN ---
<Magnus Mcgovern - Last Filed: 07/17/16 23:55> Subjective - Date & Time of Evaluation Date of Evaluation: 07/17/16 Time of Evaluation: 08:49 - Subjective Subjective: Pt seen and examined. PT reports he has pain in left hip and leg. Pt denies fever, chills, chest pain, shortness of breath, nasuea, and vomiting. Objective - Vital Signs/Intake and Output Vital Signs (last 24 hours): Temp Pulse Resp BP Pulse Ox 98.1 F 76 20 119/69 97 07/17/16 15:00 07/17/16 15:00 07/17/16 15:00 07/17/16 15:00 07/17/16 15:00 Intake and Output: 07/17/16 07/17/16 06:59 18:59 Intake Total 150 680 Output Total 0 Balance 150 680 - Medications Medications: Current Medications Acetaminophen (Tylenol 325mg Tab) 650 mg PO Q6 PRN PRN Reason: Pain, Mild (1-3) Last Admin: 07/02/16 21:37 Dose: 650 mg Docusate Sodium (Colace) 100 mg PO BID [facility] Last Admin: 07/17/16 09:48 Dose: 100 mg Enoxaparin Sodium (Lovenox) 40 mg SC DAILY [facility] Last Admin: 07/17/16 09:47 Dose: 40 mg Famotidine (Pepcid) 20 mg PO BID [facility] Last Admin: 07/17/16 09:48 Dose: 20 mg Ketoconazole (Nizoral) 0 gm TOP BID [facility] Last Admin: 07/17/16 09:51 Dose: 1 applic Magnesium Oxide (Mag-Ox) 400 mg PO BID [facility] Last Admin: 07/17/16 09:48 Dose: 400 mg Polyethylene Glycol (Miralax) 17 gm PO HS [facility] Sodium Chloride (Sodium Chloride Tab) 1 gm PO DAILY@1330 [facility] Last Admin: 07/17/16 13:10 Dose: 1 gm Tamsulosin HCl (Flomax) 0.8 mg PO DAILY [facility] Last Admin: 07/17/16 09:48 Dose: 0.8 mg Tramadol HCl (Ultram) 25 mg PO TID PRN PRN Reason: Pain, moderate (4-7) Last Admin: 07/16/16 08:06 Dose: 25 mg - Labs Labs: 07/17/16 11:33 07/17/16 11:33 - Constitutional Appears: No Acute Distress - Eye Exam Eye Exam: Normal appearance - ENT Exam ENT Exam: Mucous Membranes Moist. absent: Mucous Membranes Dry - Neck Exam Neck Exam: Full ROM. absent: Lymphadenopathy - Respiratory Exam Respiratory Exam: Clear to Ausculation Bilateral. absent: Rales, Rhonchi, Wheezes - Cardiovascular Exam Cardiovascular Exam: +S1, +S2. absent: Gallop, Rubs - GI/Abdominal Exam GI & Abdominal Exam: Soft. absent: Tenderness - Extremities Exam Extremities Exam: Full ROM. absent: Pedal Edema - Neurological Exam Neurological Exam: Alert, Awake, Oriented x3 - Psychiatric Exam Psychiatric exam: Normal Affect, Normal Mood - Skin Skin Exam: Normal Color, Warm Assessment and Plan - Assessment and Plan (Free Text) Assessment: Pt pending transfer, awaiting placement Fracture of tibia, proximal, right, closed; pain management and physical therapy Continue physical therapy; goal is for use of cane per ortho. Cane present bedside Patient is progressively weight bearing. No ortho intervention needed at this time. Continue to try to get a facility to accept patient with ambulatory cane. Tylenol 650 mg PO Q6 PRN mild pain Tramadol 25mg TID PRN. Patient instructed to ask for pain when necessary. Daily physical therapy L knee x-ray: severe osteopenia. Sclerotic changes about the posterior proximal tibia may relate to a sclerotic healing response of a prior stress fracture here. no tibial plateau depressed fracture. The sclerosis is perceived on the prior 2/10 study; no interval pathology appreciated between 2 exams. If symptoms worsen consider MRI. 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 imaging every [address] scan in 03/2016, should be monitored in September, Sacral decubitus- resolved Out of bed into chair daily Recommendations for silvadene creme to affected buttocks area History of Urinary Tract Infection Continue to monitor Most recent 06/22 Currently asymptomatic Seborrheic Dermatitis Continue Ketoconazole 2% to affected areas of face BID and Ketoconazole 2% Shampoo to hair twice weekly Cont to monitor progression Soft Stools f/u stool cultures as needed c.diff. - negative hold colace for now Prophylactic Measure Labs weekly on Sunday Lovenox 40mg SC daily Pepcid 20mg PO BID Patient is homeless. Used to stay with friend, but no longer welcome there. Goal is to walk with cane so he can go to a long term (will not qualify with a walker) <Jose Wiggins - Last Filed: 07/18/16 17:40> Objective - Vital Signs/Intake and Output Vital Signs (last 24 hours): Temp Pulse Resp BP Pulse Ox 99.1 F 87 20 155/87 H 98 07/18/16 15:00 07/18/16 15:00 07/18/16 15:00 07/18/16 15:00 07/18/16 15:00 Intake and Output: 07/18/16 07/18/16 06:59 18:59 Intake Total 200 780 Output Total 400 0 Balance -200 780 - Medications Medications: Current Medications Acetaminophen (Tylenol 325mg Tab) 650 mg PO Q6 PRN PRN Reason: Pain, Mild (1-3) Last Admin: 07/02/16 21:37 Dose: 650 mg Docusate Sodium (Colace) 100 mg PO BID [facility] Last Admin: 07/18/16 17:30 Dose: 100 mg Enoxaparin Sodium (Lovenox) 40 mg SC DAILY [facility] Last Admin: 07/18/16 09:48 Dose: 40 mg Famotidine (Pepcid) 20 mg PO BID [facility] Last Admin: 07/18/16 17:30 Dose: 20 mg Ketoconazole (Nizoral) 0 gm TOP BID [facility] Last Admin: 07/18/16 17:30 Dose: 1 applic Magnesium Oxide (Mag-Ox) 400 mg PO BID [facility] Last Admin: 07/18/16 17:30 Dose: 400 mg Polyethylene Glycol (Miralax) 17 gm PO [facility] Sodium Chloride (Sodium Chloride Tab) 1 gm PO DAILY@1330 [facility] Last Admin: 07/18/16 12:39 Dose: 1 gm Tamsulosin HCl (Flomax) 0.8 mg PO DAILY [facility] Last Admin: 07/18/16 09:46 Dose: 0.8 mg Tramadol HCl (Ultram) 25 mg PO TID PRN PRN Reason: Pain, moderate (4-7) Last Admin: 07/18/16 09:46 Dose: 25 mg - Labs Labs: 07/17/16 11:33 07/17/16 11:33 Attending/Attestation - Attestation I have personally seen and examined this patient.: Yes I have fully participated in the care of the patient.: Yes I have reviewed all pertinent clinical information, including history, physical exam and plan: Yes Notes (Text): 07/18/16 17:39 Patient was seen and examined at bedside Continue physical therapy daily I agree with the above history and physical and assessment/plan by the resident.
[2016-07-18] MEDS: Tramadol 25 mg PO PRN (09:46)
[2016-07-18] MEDS: Enoxaparin 40 mg Syringe SC SCH (09:48)
[2016-07-18] MEDS: Magnesium Oxide 400 mg Tab UD PO SCH ×2 (11:08→17:30)
--- NOTE | 2016-07-18 15:43 | CP.PCM.PN ---
<Magnus Mcgovern - Last Filed: 07/18/16 15:40> Subjective - Date & Time of Evaluation Date of Evaluation: 07/18/16 Time of Evaluation: 09:13 - Subjective Subjective: Pt seen and examined. Pt complaining of slight right hip pain. Pt denies fever, chills, chest pain, shortness of breath, nausea, and vomiting. Objective - Vital Signs/Intake and Output Vital Signs (last 24 hours): Temp Pulse Resp BP Pulse Ox 97.6 F 74 20 113/72 98 07/18/16 08:17 07/18/16 08:17 07/18/16 08:17 07/18/16 08:17 07/18/16 08:17 Intake and Output: 07/18/16 07/18/16 06:59 18:59 Intake Total 200 780 Output Total 400 0 Balance -200 780 - Medications Medications: Current Medications Acetaminophen (Tylenol 325mg Tab) 650 mg PO Q6 PRN PRN Reason: Pain, Mild (1-3) Last Admin: 07/02/16 21:37 Dose: 650 mg Docusate Sodium (Colace) 100 mg PO BID [facility] Last Admin: 07/18/16 09:46 Dose: 100 mg Enoxaparin Sodium (Lovenox) 40 mg SC DAILY [facility] Last Admin: 07/18/16 09:48 Dose: 40 mg Famotidine (Pepcid) 20 mg PO BID [facility] Last Admin: 07/18/16 09:46 Dose: 20 mg Ketoconazole (Nizoral) 0 gm TOP BID [facility] Last Admin: 07/18/16 10:00 Dose: 1 applic Magnesium Oxide (Mag-Ox) 400 mg PO BID [facility] Last Admin: 07/18/16 11:08 Dose: 400 mg Polyethylene Glycol (Miralax) 17 gm PO HS [facility] Sodium Chloride (Sodium Chloride Tab) 1 gm PO DAILY@1330 [facility] Last Admin: 07/18/16 12:39 Dose: 1 gm Tamsulosin HCl (Flomax) 0.8 mg PO DAILY [facility] Last Admin: 07/18/16 09:46 Dose: 0.8 mg Tramadol HCl (Ultram) 25 mg PO TID PRN PRN Reason: Pain, moderate (4-7) Last Admin: 07/18/16 09:46 Dose: 25 mg - Labs Labs: 07/17/16 11:33 07/17/16 11:33 - Constitutional Appears: No Acute Distress - Head Exam Head Exam: ATRAUMATIC, NORMOCEPHALIC - Eye Exam Eye Exam: EOMI, PERRL Pupil Exam: PERRL - ENT Exam ENT Exam: Mucous Membranes Moist - Neck Exam Neck Exam: Full ROM - Respiratory Exam Respiratory Exam: Clear to Ausculation Bilateral. absent: Rales, Rhonchi, Wheezes - Cardiovascular Exam Cardiovascular Exam: +S1, +S2. absent: Gallop, Rubs - GI/Abdominal Exam GI & Abdominal Exam: Soft. absent: Tenderness - Neurological Exam Neurological Exam: Alert, Awake, Oriented x3 - Psychiatric Exam Psychiatric exam: Normal Affect, Normal Mood - Skin Skin Exam: Normal Color, Warm Assessment and Plan - Assessment and Plan (Free Text) Assessment: Pt oob to chair. Pt pending transfer, awaiting placement Fracture of tibia, proximal, right, closed; pain management and physical therapy Continue physical therapy; goal is for use of cane per ortho. Cane present bedside Patient is progressively weight bearing. No ortho intervention needed at this time. Continue to try to get a facility to accept patient with ambulatory cane. Tylenol 650 mg PO Q6 PRN mild pain Tramadol 25mg TID PRN. Patient instructed to ask for pain when necessary. Daily physical therapy L knee x-ray: severe osteopenia. Sclerotic changes about the posterior proximal tibia may relate to a sclerotic healing response of a prior stress fracture here. no tibial plateau depressed fracture. The sclerosis is perceived on the prior /10 study; no interval pathology appreciated between 2 exams. If symptoms worsen consider MRI. 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 imaging every [address] scan in 03/2016, should be monitored in September, Sacral decubitus- resolved Out of bed into chair daily Recommendations for silvadene creme to affected buttocks area History of Urinary Tract Infection Continue to monitor Most recent 06/22 Currently asymptomatic Seborrheic Dermatitis Continue Ketoconazole 2% to affected areas of face BID and Ketoconazole 2% Shampoo to hair twice weekly Cont to monitor progression Soft Stools f/u stool cultures as needed c.diff. - negative hold colace for now Prophylactic Measure Labs weekly on Sunday Lovenox 40mg SC daily Pepcid 20mg PO BID Patient is homeless. Used to stay with friend, but no longer welcome there. Goal is to walk with cane so [facility] (will not qualify with a walker) <Jose Wiggins - Last Filed: 07/18/16 18:24> Objective - Vital Signs/Intake and Output Vital Signs (last 24 hours): Temp Pulse Resp BP Pulse Ox 99.1 F 87 20 155/87 H 98 07/18/16 15:00 07/18/16 15:00 07/18/16 15:00 07/18/16 15:00 07/18/16 15:00 Intake and Output: 07/18/16 07/18/16 06:59 18:59 Intake Total 200 780 Output Total 400 0 Balance -200 780 - Medications Medications: Current Medications Acetaminophen (Tylenol 325mg Tab) 650 mg PO Q6 PRN PRN Reason: Pain, Mild (1-3) Last Admin: 07/02/16 21:37 Dose: 650 mg Docusate Sodium (Colace) 100 mg PO BID [facility] Last Admin: 07/18/16 17:30 Dose: 100 mg Enoxaparin Sodium (Lovenox) 40 mg SC DAILY [facility] Last Admin: 07/18/16 09:48 Dose: 40 mg Famotidine (Pepcid) 20 mg PO BID [facility] Last Admin: 07/18/16 17:30 Dose: 20 mg Ketoconazole (Nizoral) 0 gm TOP BID [facility] Last Admin: 07/18/16 17:30 Dose: 1 applic Magnesium Oxide (Mag-Ox) 400 mg PO BID [facility] Last Admin: 07/18/16 17:30 Dose: 400 mg Polyethylene Glycol (Miralax) 17 gm PO [facility] Sodium Chloride (Sodium Chloride Tab) 1 gm PO DAILY@1330 [facility] Last Admin: 07/18/16 12:39 Dose: 1 gm Tamsulosin HCl (Flomax) 0.8 mg PO DAILY [facility] Last Admin: 07/18/16 09:46 Dose: 0.8 mg Tramadol HCl (Ultram) 25 mg PO TID PRN PRN Reason: Pain, moderate (4-7) Last Admin: 07/18/16 09:46 Dose: 25 mg - Labs Labs: 07/17/16 11:33 07/17/16 11:33 Attending/Attestation - Attestation I have personally seen and examined this patient.: Yes I have fully participated in the care of the patient.: Yes I have reviewed all pertinent clinical information, including history, physical exam and plan: Yes Notes (Text): 07/18/16 18:24 Patient was seen and examined at bedside with the resident Continue current medical management Continue physical therapy daily I agree with the above history and physical and assessment/plan by the resident.
[2016-07-19] MEDS: Enoxaparin 40 mg Syringe SC SCH (10:07)
[2016-07-19] MEDS: Magnesium Oxide 400 mg Tab UD PO SCH ×2 (10:07→17:41)
--- NOTE | 2016-07-19 17:35 | CP.PCM.PN ---
<Magnus Mcgovern - Last Filed: 07/19/16 22:31> Subjective - Date & Time of Evaluation Date of Evaluation: 07/19/16 Time of Evaluation: 07:34 - Subjective Subjective: Pt seen and examined. Pt complaining of pain in right hip and knee. Pt denies fever, chills, chest pain, shortness of breath. Objective - Vital Signs/Intake and Output Vital Signs (last 24 hours): Temp Pulse Resp BP Pulse Ox 97.8 F 77 20 114/68 96 07/19/16 08:00 07/19/16 08:00 07/19/16 08:00 07/19/16 08:00 07/19/16 08:00 Intake and Output: 07/19/16 07/19/16 06:59 18:59 Intake Total 840 Output Total 850 Balance -10 - Medications Medications: Current Medications Acetaminophen (Tylenol 325mg Tab) 650 mg PO Q6 PRN PRN Reason: Pain, Mild (1-3) Last Admin: 07/02/16 21:37 Dose: 650 mg Docusate Sodium (Colace) 100 mg PO BID [facility] Last Admin: 07/19/16 10:07 Dose: 100 mg Enoxaparin Sodium (Lovenox) 40 mg SC DAILY [facility] Last Admin: 07/19/16 10:07 Dose: 40 mg Famotidine (Pepcid) 20 mg PO BID [facility] Last Admin: 07/19/16 10:07 Dose: 20 mg Ketoconazole (Nizoral) 0 gm TOP BID [facility] Last Admin: 07/19/16 10:03 Dose: 1 applic Magnesium Oxide (Mag-Ox) 400 mg PO BID [facility] Last Admin: 07/19/16 10:07 Dose: 400 mg Polyethylene Glycol (Miralax) 17 gm PO HS [facility] Sodium Chloride (Sodium Chloride Tab) 1 gm PO DAILY@1330 [facility] Last Admin: 07/19/16 13:00 Dose: 1 gm Tamsulosin HCl (Flomax) 0.8 mg PO DAILY [facility] Last Admin: 07/19/16 10:07 Dose: 0.8 mg Tramadol HCl (Ultram) 25 mg PO TID PRN PRN Reason: Pain, moderate (4-7) Last Admin: 07/18/16 09:46 Dose: 25 mg - Labs Labs: 07/17/16 11:33 07/17/16 11:33 - Constitutional Appears: No Acute Distress - Head Exam Head Exam: ATRAUMATIC, NORMOCEPHALIC - Eye Exam Eye Exam: EOMI, PERRL - ENT Exam ENT Exam: Mucous Membranes Moist. absent: Mucous Membranes Dry - Neck Exam Neck Exam: Full ROM - Respiratory Exam Respiratory Exam: Clear to Ausculation Bilateral. absent: Rales, Rhonchi, Wheezes - Cardiovascular Exam Cardiovascular Exam: +S1, +S2. absent: Gallop, Rubs - GI/Abdominal Exam GI & Abdominal Exam: Soft. absent: Tenderness - Extremities Exam Extremities Exam: Full ROM. absent: Pedal Edema - Neurological Exam Neurological Exam: Alert, Awake, Oriented x3 - Psychiatric Exam Psychiatric exam: Normal Affect, Normal Mood - Skin Skin Exam: Normal Color, Warm Assessment and Plan - Assessment and Plan (Free Text) Assessment: Pt oob to chair. Pt pending transfer, awaiting placement Fracture of tibia, proximal, right, closed; pain management and physical therapy Continue physical therapy; goal is for use of cane per ortho. Cane present bedside Patient is progressively weight bearing. No ortho intervention needed at this time. Continue to try to get a facility to accept patient with ambulatory cane. Tylenol 650 mg PO Q6 PRN mild pain Tramadol 25mg TID PRN. Patient instructed to ask for pain when necessary. Daily physical therapy L knee x-ray: severe osteopenia. Sclerotic changes about the posterior proximal tibia may relate to a sclerotic healing response of a prior stress fracture here. no tibial plateau depressed fracture. The sclerosis is perceived on the prior /10 study; no interval pathology appreciated between 2 exams. If symptoms worsen consider MRI. 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 imaging every [address] scan in 03/2016, should be monitored in September, Sacral decubitus- resolved Out of bed into chair daily Recommendations for silvadene creme to affected buttocks area History of Urinary Tract Infection Continue to monitor Most recent 06/22 Currently asymptomatic Seborrheic Dermatitis Continue Ketoconazole 2% to affected areas of face BID and Ketoconazole 2% Shampoo to hair twice weekly Cont to monitor progression Soft Stools f/u stool cultures as needed c.diff. - negative hold colace for now Prophylactic Measure Labs weekly on Sunday Lovenox 40mg SC daily Pepcid 20mg PO BID Patient is homeless. Used to stay with friend, but no longer welcome there. Goal is to walk with cane so he can go to a nursing home (will not qualify with a walker) <Jose Wiggins - Last Filed: 07/20/16 15:18> Objective - Vital Signs/Intake and Output Vital Signs (last 24 hours): Temp Pulse Resp BP Pulse Ox 98.0 F 98 H 20 115/68 98 07/20/16 08:07 07/20/16 08:07 07/20/16 08:07 07/20/16 08:07 07/20/16 08:07 Intake and Output: 07/20/16 07/20/16 06:59 18:59 Intake Total 240 780 Output Total 300 0 Balance -60 780 - Medications Medications: Current Medications Acetaminophen (Tylenol 325mg Tab) 650 mg PO Q6 PRN PRN Reason: Pain, Mild (1-3) Last Admin: 07/02/16 21:37 Dose: 650 mg Docusate Sodium (Colace) 100 mg PO BID [facility] Last Admin: 07/20/16 09:28 Dose: 100 mg Enoxaparin Sodium (Lovenox) 40 mg SC DAILY [facility] Last Admin: 07/20/16 09:29 Dose: 40 mg Famotidine (Pepcid) 20 mg PO BID [facility] Last Admin: 07/20/16 09:29 Dose: 20 mg Ketoconazole (Nizoral) 0 gm TOP BID [facility] Last Admin: 07/20/16 10:00 Dose: 1 applic Magnesium Oxide (Mag-Ox) 400 mg PO BID [facility] Last Admin: 07/20/16 09:29 Dose: 400 mg Polyethylene Glycol (Miralax) 17 gm PO [facility] Sodium Chloride (Sodium Chloride Tab) 1 gm PO DAILY@1330 [facility] Last Admin: 07/20/16 13:49 Dose: 1 gm Tamsulosin HCl (Flomax) 0.8 mg PO DAILY [facility] Last Admin: 07/20/16 09:28 Dose: 0.8 mg Tramadol HCl (Ultram) 25 mg PO TID PRN PRN Reason: Pain, moderate (4-7) Last Admin: 07/20/16 09:29 Dose: 25 mg - Labs Labs: 07/17/16 11:33 07/17/16 11:33 Attending/Attestation - Attestation I have personally seen and examined this patient.: Yes I have fully participated in the care of the patient.: Yes I have reviewed all pertinent clinical information, including history, physical exam and plan: Yes Notes (Text): 07/20/16 15:18 Patient was seen and examined at bedside with the resident Patient appears comfortable Still has pain in the right lower extremity Continue physical therapy daily and awaiting placement.
[2016-07-20] MEDS: Tramadol 25 mg PO PRN ×2 (05:15→09:29)
[2016-07-20] MEDS: Enoxaparin 40 mg Syringe SC SCH (09:29)
[2016-07-20] MEDS: Magnesium Oxide 400 mg Tab UD PO SCH ×2 (09:29→17:18)
--- NOTE | 2016-07-20 15:10 | CP.PCM.PN ---
<Magnus Mcgovern - Last Filed: 07/20/16 15:07> Subjective - Date & Time of Evaluation Date of Evaluation: 07/20/16 Time of Evaluation: 10:04 - Subjective Subjective: Pt seen and examined. Pt reports of pain in his right hip and right knee. Pt oob to chair. Pt denies fever, chills, chest pain, shortness of breath, nausea, and vomiting. Objective - Vital Signs/Intake and Output Vital Signs (last 24 hours): Temp Pulse Resp BP Pulse Ox 98.0 F 98 H 20 115/68 98 07/20/16 08:07 07/20/16 08:07 07/20/16 08:07 07/20/16 08:07 07/20/16 08:07 Intake and Output: 07/20/16 07/20/16 06:59 18:59 Intake Total 240 780 Output Total 300 0 Balance -60 780 - Medications Medications: Current Medications Acetaminophen (Tylenol 325mg Tab) 650 mg PO Q6 PRN PRN Reason: Pain, Mild (1-3) Last Admin: 07/02/16 21:37 Dose: 650 mg Docusate Sodium (Colace) 100 mg PO BID [facility] Last Admin: 07/20/16 09:28 Dose: 100 mg Enoxaparin Sodium (Lovenox) 40 mg SC DAILY [facility] Last Admin: 07/20/16 09:29 Dose: 40 mg Famotidine (Pepcid) 20 mg PO BID [facility] Last Admin: 07/20/16 09:29 Dose: 20 mg Ketoconazole (Nizoral) 0 gm TOP BID [facility] Last Admin: 07/20/16 10:00 Dose: 1 applic Magnesium Oxide (Mag-Ox) 400 mg PO BID [facility] Last Admin: 07/20/16 09:29 Dose: 400 mg Polyethylene Glycol (Miralax) 17 gm PO [facility] Sodium Chloride (Sodium Chloride Tab) 1 gm PO DAILY@1330 [facility] Last Admin: 07/20/16 13:49 Dose: 1 gm Tamsulosin HCl (Flomax) 0.8 mg PO DAILY [facility] Last Admin: 07/20/16 09:28 Dose: 0.8 mg Tramadol HCl (Ultram) 25 mg PO TID PRN PRN Reason: Pain, moderate (4-7) Last Admin: 07/20/16 09:29 Dose: 25 mg - Labs Labs: 07/17/16 11:33 07/17/16 11:33 - Constitutional Appears: No Acute Distress - Head Exam Head Exam: ATRAUMATIC, NORMOCEPHALIC - Eye Exam Eye Exam: EOMI Pupil Exam: NORMAL ACCOMODATION - ENT Exam ENT Exam: Mucous Membranes Moist. absent: Mucous Membranes Dry - Neck Exam Neck Exam: Full ROM - Respiratory Exam Respiratory Exam: Clear to Ausculation Bilateral. absent: Rales, Rhonchi, Wheezes - Cardiovascular Exam Cardiovascular Exam: +S1, +S2 - GI/Abdominal Exam GI & Abdominal Exam: Soft. absent: Tenderness - Extremities Exam Extremities Exam: absent: Pedal Edema - Neurological Exam Neurological Exam: Abnormal Gait, Alert, Awake, Oriented x3 - Psychiatric Exam Psychiatric exam: Normal Affect, Normal Mood - Skin Skin Exam: Normal Color, Warm Assessment and Plan - Assessment and Plan (Free Text) Assessment: Pt pending transfer, awaiting placement Stool for c.diff ordered Fracture of tibia, proximal, right, closed; pain management and physical therapy Continue physical therapy; goal is for use of cane per ortho. Cane present bedside Patient is progressively weight bearing. No ortho intervention needed at this time. Continue to try to get a facility to accept patient with ambulatory cane. Tylenol 650 mg PO Q6 PRN mild pain Tramadol 25mg TID PRN. Patient instructed to ask for pain when necessary. Daily physical therapy L knee x-ray: severe osteopenia. Sclerotic changes about the posterior proximal tibia may relate to a sclerotic healing response of a prior stress fracture here. no tibial plateau depressed fracture. The sclerosis is perceived on the prior 04/21 study; no interval pathology appreciated between 2 exams. If symptoms worsen consider MRI. 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 imaging every [address] scan in 03/2016, should be monitored in September, Sacral decubitus- resolved Out of bed into chair daily Recommendations for silvadene creme to affected buttocks area History of Urinary Tract Infection Continue to monitor Most recent 06/22 Currently asymptomatic Seborrheic Dermatitis Continue Ketoconazole 2% to affected areas of face BID and Ketoconazole 2% Shampoo to hair twice weekly Cont to monitor progression Soft Stools f/u stool cultures as needed c.diff. - negative hold colace for now Prophylactic Measure Labs weekly on Sunday Lovenox 40mg SC daily Pepcid 20mg PO BID Patient is homeless. Used to stay with friend, but no longer welcome there. Goal is to walk with cane so he can go to a intermediate (will not qualify with a walker) <Jose Wiggins - Last Filed: 07/20/16 17:03> Objective - Vital Signs/Intake and Output Vital Signs (last 24 hours): Temp Pulse Resp BP Pulse Ox 98.0 F 98 H 20 115/68 98 07/20/16 08:07 07/20/16 08:07 07/20/16 08:07 07/20/16 08:07 07/20/16 08:07 Intake and Output: 07/20/16 07/20/16 06:59 18:59 Intake Total 240 780 Output Total 300 0 Balance -60 780 - Medications Medications: Current Medications Acetaminophen (Tylenol 325mg Tab) 650 mg PO Q6 PRN PRN Reason: Pain, Mild (1-3) Last Admin: 07/02/16 21:37 Dose: 650 mg Docusate Sodium (Colace) 100 mg PO BID [facility] Last Admin: 07/20/16 09:28 Dose: 100 mg Enoxaparin Sodium (Lovenox) 40 mg SC DAILY [facility] Last Admin: 07/20/16 09:29 Dose: 40 mg Famotidine (Pepcid) 20 mg PO BID [facility] Last Admin: 07/20/16 09:29 Dose: 20 mg Ketoconazole (Nizoral) 0 gm TOP BID [facility] Last Admin: 07/20/16 10:00 Dose: 1 applic Magnesium Oxide (Mag-Ox) 400 mg PO BID [facility] Last Admin: 07/20/16 09:29 Dose: 400 mg Polyethylene Glycol (Miralax) 17 gm PO [facility] Sodium Chloride (Sodium Chloride Tab) 1 gm PO DAILY@1330 [facility] Last Admin: 07/20/16 13:49 Dose: 1 gm Tamsulosin HCl (Flomax) 0.8 mg PO DAILY [facility] Last Admin: 07/20/16 09:28 Dose: 0.8 mg Tramadol HCl (Ultram) 25 mg PO TID PRN PRN Reason: Pain, moderate (4-7) Last Admin: 07/20/16 09:29 Dose: 25 mg - Labs Labs: 07/17/16 11:33 07/17/16 11:33 Attending/Attestation - Attestation I have personally seen and examined this patient.: Yes I have fully participated in the care of the patient.: Yes I have reviewed all pertinent clinical information, including history, physical exam and plan: Yes Notes (Text): 07/20/16 17:03 Patient was seen and examined at bedside with the resident Patient appears comfortable Complains of for right lower extremity pain Continue physical therapy daily Agree with the above history and physical and assessment/plan by the resident.
--- NOTE | 2016-07-21 09:02 | CP.PCM.PN ---
Subjective - Date & Time of Evaluation Date of Evaluation: 07/21/16 Time of Evaluation: 09:04 - Subjective Subjective: Patient states he is having pain in the front of his knee, and hip as usual. Denies CP/SOB/dizziness/numbness/tingling. Review of Systems - Review of Systems All systems: reviewed and no additional remarkable complaints except - Cardiovascular Cardiovascular: UNREMARKABLE - Respiratory Respiratory: UNREMARKABLE - Musculoskeletal Musculoskeletal: As Par HPI - Integumentary Integumentary: UNREMARKABLE - Hematologic/Lymphatic Hematologic: UNREMARKABLE Objective - Vital Signs/Intake and Output Vital Signs (last 24 hours): Temp Pulse Resp BP Pulse Ox 97.5 F L 68 20 108/62 97 07/21/16 08:08 07/21/16 08:08 07/21/16 08:08 07/21/16 08:08 07/21/16 08:08 Intake and Output: 07/21/16 07/21/16 06:59 18:59 Intake Total 1260 Output Total 800 Balance 460 - Medications Medications: Current Medications Acetaminophen (Tylenol 325mg Tab) 650 mg PO Q6 PRN PRN Reason: Pain, Mild (1-3) Last Admin: 07/02/16 21:37 Dose: 650 mg Docusate Sodium (Colace) 100 mg PO BID [facility] Last Admin: 07/20/16 17:18 Dose: 100 mg Enoxaparin Sodium (Lovenox) 40 mg SC DAILY [facility] Last Admin: 07/20/16 09:29 Dose: 40 mg Famotidine (Pepcid) 20 mg PO BID [facility] Last Admin: 07/20/16 17:19 Dose: 20 mg Ketoconazole (Nizoral) 0 gm TOP BID [facility] Last Admin: 07/20/16 17:18 Dose: 1 applic Magnesium Oxide (Mag-Ox) 400 mg PO BID [facility] Last Admin: 07/20/16 17:18 Dose: 400 mg Polyethylene Glycol (Miralax) 17 gm PO HS [facility] Sodium Chloride (Sodium Chloride Tab) 1 gm PO DAILY@1330 [facility] Last Admin: 07/20/16 13:49 Dose: 1 gm Tamsulosin HCl (Flomax) 0.8 mg PO DAILY [facility] Last Admin: 07/20/16 09:28 Dose: 0.8 mg Tramadol HCl (Ultram) 25 mg PO TID PRN PRN Reason: Pain, moderate (4-7) Last Admin: 07/20/16 09:29 Dose: 25 mg - Labs Labs: 07/17/16 11:33 07/17/16 11:33 - Constitutional Appears: Well, No Acute Distress - Head Exam Head Exam: ATRAUMATIC, NORMAL INSPECTION - ENT Exam ENT Exam: Mucous Membranes Moist - Respiratory Exam Respiratory Exam: NORMAL BREATHING PATTERN - Cardiovascular Exam Additional comments: +DP pulse calves soft NT neg homans - Extremities Exam Additional comments: sensation intact no erythema, +TTP R quad tendon and slightly warm to same - Neurological Exam Neurological Exam: Alert, Awake, Oriented x3 Neuro motor strength exam: Right Lower Extremity: 5 (5/5 ankle DF/PF, toes flex/ ext) - Psychiatric Exam Psychiatric exam: Normal Affect, Normal Mood - Skin Skin Exam: Dry, Normal Color, Warm Assessment and Plan (1) Acetabular protrusion Assessment & Plan: stable no ortho intervention planned pt homeless, plan for wean to cane and discharge to care home Status: Chronic (2) Fracture of tibia, proximal, right, closed Assessment & Plan: healed non tender, no pain at this site cont PT WBAT VTE proph encourage OOB now with some quad tendinitis will add lidoderm to encourage participation in PT d/w Dr. Pino, agrees with above Status: Chronic Review of Systems - Medications/Allergies Allergies/Adverse Reactions: Allergies Allergy/AdvReac Type Severity Reaction Status Date / Time No Known Allergies Allergy Verified 03/08/16 19:44 Medications: Current Medications Acetaminophen (Tylenol 325mg Tab) 650 mg PO Q6 PRN PRN Reason: Pain, Mild (1-3) Last Admin: 07/02/16 21:37 Dose: 650 mg Docusate Sodium (Colace) 100 mg PO BID [facility] Last Admin: 07/20/16 17:18 Dose: 100 mg Enoxaparin Sodium (Lovenox) 40 mg SC DAILY [facility] Last Admin: 07/20/16 09:29 Dose: 40 mg Famotidine (Pepcid) 20 mg PO BID [facility] Last Admin: 07/20/16 17:19 Dose: 20 mg Ketoconazole (Nizoral) 0 gm TOP BID [facility] Last Admin: 07/20/16 17:18 Dose: 1 applic Magnesium Oxide (Mag-Ox) 400 mg PO BID [facility] Last Admin: 07/20/16 17:18 Dose: 400 mg Polyethylene Glycol (Miralax) 17 gm PO HS [facility] Sodium Chloride (Sodium Chloride Tab) 1 gm PO DAILY@1330 [facility] Last Admin: 07/20/16 13:49 Dose: 1 gm Tamsulosin HCl (Flomax) 0.8 mg PO DAILY [facility] Last Admin: 07/20/16 09:28 Dose: 0.8 mg Tramadol HCl (Ultram) 25 mg PO TID PRN PRN Reason: Pain, moderate (4-7) Last Admin: 07/20/16 09:29 Dose: 25 mg
[2016-07-21] MEDS: Enoxaparin 40 mg Syringe SC SCH (10:38)
[2016-07-21] MEDS: Tramadol 25 mg PO PRN (10:39)
[2016-07-21] MEDS: Magnesium Oxide 400 mg Tab UD PO SCH ×2 (10:40→17:22)
[2016-07-21] MEDS: Lidocaine 5% Patch TD SCH (10:41)
--- NOTE | 2016-07-21 16:40 | CP.PCM.PN ---
<FroilanMagnus - Last Filed: 07/21/16 18:28> Subjective - Date & Time of Evaluation Date of Evaluation: 07/21/16 Time of Evaluation: 10:07 - Subjective Subjective: Pt seen and examined. Pt reports that he is feeling pain in his right hip and right knee. Pt denies fever, chills, chest pain, shortness of breath, nausea, and vomiting. He reports no diarrhea today. Objective - Vital Signs/Intake and Output Vital Signs (last 24 hours): Temp Pulse Resp BP Pulse Ox 97.5 F L 68 20 108/62 97 07/21/16 08:08 07/21/16 08:08 07/21/16 08:08 07/21/16 08:08 07/21/16 08:08 Intake and Output: 07/21/16 07/21/16 06:59 18:59 Intake Total 1260 500 Output Total 800 Balance 460 500 - Medications Medications: Current Medications Acetaminophen (Tylenol 325mg Tab) 650 mg PO Q6 PRN PRN Reason: Pain, Mild (1-3) Last Admin: 07/02/16 21:37 Dose: 650 mg Docusate Sodium (Colace) 100 mg PO BID [facility] Last Admin: 07/21/16 10:38 Dose: 100 mg Enoxaparin Sodium (Lovenox) 40 mg SC DAILY [facility] Last Admin: 07/21/16 10:38 Dose: 40 mg Famotidine (Pepcid) 20 mg PO BID [facility] Last Admin: 07/21/16 10:38 Dose: 20 mg Ketoconazole (Nizoral) 0 gm TOP BID [facility] Last Admin: 07/21/16 10:38 Dose: 1 applic Lidocaine (Lidoderm) 1 ea TD DAILY [facility] Last Admin: 07/21/16 10:41 Dose: Not Given Magnesium Oxide (Mag-Ox) 400 mg PO BID [facility] Last Admin: 07/21/16 10:40 Dose: 400 mg Polyethylene Glycol (Miralax) 17 gm PO HS [facility] Sodium Chloride (Sodium Chloride Tab) 1 gm PO DAILY@1330 [facility] Last Admin: 07/21/16 14:39 Dose: 1 gm Tamsulosin HCl (Flomax) 0.8 mg PO DAILY [facility] Last Admin: 07/21/16 10:38 Dose: 0.8 mg Tramadol HCl (Ultram) 25 mg PO TID PRN PRN Reason: Pain, moderate (4-7) Last Admin: 07/21/16 10:39 Dose: 25 mg - Labs Labs: 07/17/16 11:33 07/17/16 11:33 - Constitutional Appears: No Acute Distress - Head Exam Head Exam: ATRAUMATIC, NORMOCEPHALIC - Eye Exam Eye Exam: EOMI - ENT Exam ENT Exam: Mucous Membranes Moist. absent: Mucous Membranes Dry - Neck Exam Neck Exam: Full ROM - Respiratory Exam Respiratory Exam: Clear to Ausculation Bilateral. absent: Rales, Rhonchi, Wheezes - Cardiovascular Exam Cardiovascular Exam: +S1, +S2 - GI/Abdominal Exam GI & Abdominal Exam: Soft. absent: Tenderness - Extremities Exam Extremities Exam: absent: Pedal Edema - Neurological Exam Neurological Exam: Alert, Awake, Oriented x3 - Psychiatric Exam Psychiatric exam: Normal Affect, Normal Mood - Skin Skin Exam: Normal Color, Warm Assessment and Plan - Assessment and Plan (Free Text) Assessment: Pt pending transfer, awaiting placement Stool for c.diff negative, fecal leukocytes positive Fracture of tibia, proximal, right, closed; pain management and physical therapy Continue physical therapy; goal is for use of cane per ortho. Cane present bedside Patient is progressively weight bearing. No ortho intervention needed at this time. Continue to try to get a facility to accept patient with ambulatory cane. Tylenol 650 mg PO Q6 PRN mild pain Tramadol 25mg TID PRN. Patient instructed to ask for pain when necessary. Daily physical therapy L knee x-ray: severe osteopenia. Sclerotic changes about the posterior proximal tibia may relate to a sclerotic healing response of a prior stress fracture here. no tibial plateau depressed fracture. The sclerosis is perceived on the prior 04/21 study; no interval pathology appreciated between 2 exams. If symptoms worsen consider MRI. 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 imaging every [address] scan in 03/2016, should be monitored in September, Sacral decubitus- resolved Out of bed into chair daily Recommendations for silvadene creme to affected buttocks area History of Urinary Tract Infection Continue to monitor Most recent 06/22 Currently asymptomatic Seborrheic Dermatitis Continue Ketoconazole 2% to affected areas of face BID and Ketoconazole 2% Shampoo to hair twice weekly Cont to monitor progression Soft Stools f/u stool cultures as needed c.diff. - negative hold colace for now Prophylactic Measure Labs weekly on Sunday Lovenox 40mg SC daily Pepcid 20mg PO BID Patient is homeless. Used to stay with friend, but no longer welcome there. Goal is to walk with cane so he can go to a [facility] (will not qualify with a walker) <Jose Wiggins - Last Filed: 07/22/16 16:12> Objective - Vital Signs/Intake and Output Vital Signs (last 24 hours): Temp Pulse Resp BP Pulse Ox 98.6 F 70 20 103/61 98 07/22/16 08:00 07/22/16 08:00 07/22/16 08:00 07/22/16 08:00 07/22/16 08:00 Intake and Output: 07/22/16 07/22/16 06:59 18:59 Intake Total 480 600 Output Total 500 550 Balance -20 50 - Medications Medications: Current Medications Acetaminophen (Tylenol 325mg Tab) 650 mg PO Q6 PRN PRN Reason: Pain, Mild (1-3) Last Admin: 07/02/16 21:37 Dose: 650 mg Docusate Sodium (Colace) 100 mg PO BID [facility] Last Admin: 07/22/16 10:43 Dose: 100 mg Famotidine (Pepcid) 20 mg PO BID [facility] Last Admin: 07/22/16 10:44 Dose: 20 mg Ketoconazole (Nizoral) 0 gm TOP BID [facility] Last Admin: 07/22/16 10:46 Dose: 1 applic Lidocaine (Lidoderm) 1 ea TD DAILY [facility] Last Admin: 07/22/16 10:44 Dose: 1 ea Magnesium Oxide (Mag-Ox) 400 mg PO BID [facility] Last Admin: 07/22/16 10:43 Dose: 400 mg Polyethylene Glycol (Miralax) 17 gm PO HS [facility] Sodium Chloride (Sodium Chloride Tab) 1 gm PO DAILY@1330 [facility] Last Admin: 07/22/16 12:52 Dose: 1 gm Tamsulosin HCl (Flomax) 0.8 mg PO DAILY [facility] Last Admin: 07/22/16 10:43 Dose: 0.8 mg Tramadol HCl (Ultram) 25 mg PO TID PRN PRN Reason: Pain, moderate (4-7) Last Admin: 07/21/16 10:39 Dose: 25 mg - Labs Labs: 07/17/16 11:33 07/17/16 11:33 Attending/Attestation - Attestation I have personally seen and examined this patient.: Yes I have fully participated in the care of the patient.: Yes I have reviewed all pertinent clinical information, including history, physical exam and plan: Yes Notes (Text): 07/22/16 16:12 Patient was seen and examined at bedside with the resident No change in clinical condition Continue current medical management Awaiting placement
--- NOTE | 2016-07-22 02:25 | CP.PCM.PN ---
<Makayla Amaya - Last Filed: 07/22/16 02:45> Subjective - Date & Time of Evaluation Date of Evaluation: 07/22/16 Time of Evaluation: 02:45 - Subjective Subjective: PGY1 Medicine note for Dr. Wiggins Patient seen and examined at bedside sitting up and watching TV. Patient continues to complain of leg pain. Patient was seen walking to the bathroom by the with his walker. Denied any headache, dizziness, chest pain , SOB, cough , abdominal pain, nausea, vomiting, bowel/bladder complaints Objective - Vital Signs/Intake and Output Vital Signs (last 24 hours): Temp Pulse Resp BP Pulse Ox 97.8 F 79 20 113/66 97 07/21/16 23:29 07/21/16 23:29 07/21/16 23:29 07/21/16 23:29 07/21/16 23:29 Intake and Output: 07/21/16 07/22/16 18:59 06:59 Intake Total 500 Balance 500 - Medications Medications: Current Medications Acetaminophen (Tylenol 325mg Tab) 650 mg PO Q6 PRN PRN Reason: Pain, Mild (1-3) Last Admin: 07/02/16 21:37 Dose: 650 mg Docusate Sodium (Colace) 100 mg PO BID [facility] Last Admin: 07/21/16 17:22 Dose: 100 mg Enoxaparin Sodium (Lovenox) 40 mg SC DAILY [facility] Last Admin: 07/21/16 10:38 Dose: 40 mg Famotidine (Pepcid) 20 mg PO BID [facility] Last Admin: 07/21/16 17:22 Dose: 20 mg Ketoconazole (Nizoral) 0 gm TOP BID [facility] Last Admin: 07/21/16 17:24 Dose: 1 applic Lidocaine (Lidoderm) 1 ea TD DAILY [facility] Last Admin: 07/21/16 10:41 Dose: Not Given Magnesium Oxide (Mag-Ox) 400 mg PO BID [facility] Last Admin: 07/21/16 17:22 Dose: 400 mg Polyethylene Glycol (Miralax) 17 gm PO HS [facility] Sodium Chloride (Sodium Chloride Tab) 1 gm PO DAILY@1330 [facility] Last Admin: 07/21/16 14:39 Dose: 1 gm Tamsulosin HCl (Flomax) 0.8 mg PO DAILY [facility] Last Admin: 07/21/16 10:38 Dose: 0.8 mg Tramadol HCl (Ultram) 25 mg PO TID PRN PRN Reason: Pain, moderate (4-7) Last Admin: 07/21/16 10:39 Dose: 25 mg - Labs Labs: 07/17/16 11:33 07/17/16 11:33 - Constitutional Appears: No Acute Distress - Head Exam Head Exam: NORMAL INSPECTION - Eye Exam Eye Exam: Normal appearance. absent: Conjunctival injection, Scleral icterus - ENT Exam ENT Exam: Mucous Membranes Moist - Neck Exam Neck Exam: Normal Inspection - Respiratory Exam Respiratory Exam: Clear to Ausculation Bilateral, NORMAL BREATHING PATTERN. absent: Rales, Rhonchi, Wheezes - Cardiovascular Exam Cardiovascular Exam: +S1, +S2 - GI/Abdominal Exam GI & Abdominal Exam: Soft, Tenderness (to palpation), Hernia, Normal Bowel Sounds - Extremities Exam Extremities Exam: absent: Pedal Edema - Neurological Exam Neurological Exam: Abnormal Gait, Alert, Awake, Oriented x3 - Psychiatric Exam Psychiatric exam: Normal Affect, Normal Mood - Skin Skin Exam: Dry, Intact, Normal Color, Warm Assessment and Plan - Assessment and Plan (Free Text) Assessment: 71yo M with no PMHx admitted for generalized weakness, abdominal pain, and dysuria; now found to have R proximal tibial fracture Plan: Fracture of tibia, proximal, right, closed; pain management and physical therapy Continue physical therapy; goal is for use of cane per ortho. Cane present bedside Patient is progressively weight bearing. No ortho intervention needed at this time. Continue to try to get a facility to accept patient with ambulatory cane. Tylenol 650 mg PO Q6 PRN mild pain Tramadol 25mg TID PRN. Patient instructed to ask for pain when necessary. Daily physical therapy L knee x-ray: severe osteopenia. Sclerotic changes about the posterior proximal tibia may relate to a sclerotic healing response of a prior stress fracture here. no tibial plateau depressed fracture. The sclerosis is perceived on the prior 04/21 study; no interval pathology appreciated between 2 exams. If symptoms worsen consider MRI. 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 imaging every [address] scan in 03/2016, should be monitored in September, Sacral decubitus- resolved Out of bed into chair daily Recommendations for silvadene creme to affected buttocks area History of Urinary Tract Infection Continue to monitor Most recent 06/22 Currently asymptomatic Seborrheic Dermatitis Continue Ketoconazole 2% to affected areas of face BID and Ketoconazole 2% Shampoo to hair twice weekly Cont to monitor progression Soft Stools f/u stool cultures as needed c.diff. - negative hold colace for now Prophylactic Measure Labs weekly on Sunday Lovenox 40mg SC daily Pepcid 20mg PO BID Patient is homeless. Used to stay with friend, but no longer welcome there. Goal is to walk with cane so he can go to a halfway (will not qualify with a walker) Pt pending transfer, awaiting placement Will discuss with Dr. Rosalie Amaya PGY1 <Jose Wiggins - Last Filed: 07/22/16 16:43> Objective - Vital Signs/Intake and Output Vital Signs (last 24 hours): Temp Pulse Resp BP Pulse Ox 98.6 F 70 20 103/61 98 07/22/16 08:00 07/22/16 08:00 07/22/16 08:00 07/22/16 08:00 07/22/16 08:00 Intake and Output: 07/22/16 07/22/16 06:59 18:59 Intake Total 480 600 Output Total 500 550 Balance -20 50 - Medications Medications: Current Medications Acetaminophen (Tylenol 325mg Tab) 650 mg PO Q6 PRN PRN Reason: Pain, Mild (1-3) Last Admin: 07/02/16 21:37 Dose: 650 mg Docusate Sodium (Colace) 100 mg PO BID [facility] Last Admin: 07/22/16 10:43 Dose: 100 mg Enoxaparin Sodium (Lovenox) 40 mg SC DAILY [facility] Famotidine (Pepcid) 20 mg PO BID [facility] Last Admin: 07/22/16 10:44 Dose: 20 mg Ketoconazole (Nizoral) 0 gm TOP BID [facility] Last Admin: 07/22/16 10:46 Dose: 1 applic Lidocaine (Lidoderm) 1 ea TD DAILY [facility] Last Admin: 07/22/16 10:44 Dose: 1 ea Magnesium Oxide (Mag-Ox) 400 mg PO BID [facility] Last Admin: 07/22/16 10:43 Dose: 400 mg Polyethylene Glycol (Miralax) 17 gm PO HS [facility] Sodium Chloride (Sodium Chloride Tab) 1 gm PO DAILY@1330 [facility] Last Admin: 07/22/16 12:52 Dose: 1 gm Tamsulosin HCl (Flomax) 0.8 mg PO DAILY [facility] Last Admin: 07/22/16 10:43 Dose: 0.8 mg Tramadol HCl (Ultram) 25 mg PO TID PRN PRN Reason: Pain, moderate (4-7) Last Admin: 07/21/16 10:39 Dose: 25 mg - Labs Labs: 07/17/16 11:33 07/17/16 11:33 Attending/Attestation - Attestation I have personally seen and examined this patient.: Yes I have fully participated in the care of the patient.: Yes I have reviewed all pertinent clinical information, including history, physical exam and plan: Yes Notes (Text): 07/22/16 16:43 Patient was seen and examined at bedside No change in clinical condition Continue physical therapy daily Start planning in progress.
[2016-07-22] MEDS: Magnesium Oxide 400 mg Tab UD PO SCH ×2 (10:43→17:35)
[2016-07-22] MEDS: Enoxaparin 40 mg Syringe SC SCH (10:44)
[2016-07-22] MEDS: Lidocaine 5% Patch TD SCH (10:44)
[2016-07-23] MEDS: Tramadol 25 mg PO PRN (00:50)
--- NOTE | 2016-07-23 01:00 | CP.PCM.PN ---
<MoniqueMakayla - Last Filed: 07/23/16 01:18> Subjective - Date & Time of Evaluation Date of Evaluation: 07/23/16 Time of Evaluation: 01:18 - Subjective Subjective: PGY1 Medicine note for Dr. Wiggins Patient seen and examined at bedside. Patient is clinically unchanged - continues to complain of leg pain. Patient complained he has been having diarrhea. Denied any headache, dizziness, chest pain , SOB, cough, abdominal pain, nausea , vomiting, bladder complaints. Objective - Vital Signs/Intake and Output Vital Signs (last 24 hours): Temp Pulse Resp BP Pulse Ox 97.8 F 79 20 118/68 98 07/22/16 23:54 07/22/16 23:54 07/22/16 23:54 07/22/16 23:54 07/22/16 23:54 Intake and Output: 07/22/16 07/23/16 18:59 06:59 Intake Total 600 Output Total 550 Balance 50 - Medications Medications: Current Medications Acetaminophen (Tylenol 325mg Tab) 650 mg PO Q6 PRN PRN Reason: Pain, Mild (1-3) Last Admin: 07/02/16 21:37 Dose: 650 mg Docusate Sodium (Colace) 100 mg PO BID [facility] Last Admin: 07/22/16 17:35 Dose: 100 mg Enoxaparin Sodium (Lovenox) 40 mg SC DAILY [facility] Famotidine (Pepcid) 20 mg PO BID [facility] Last Admin: 07/22/16 17:35 Dose: 20 mg Ketoconazole (Nizoral) 0 gm TOP BID [facility] Last Admin: 07/22/16 17:35 Dose: 1 applic Lidocaine (Lidoderm) 1 ea TD DAILY [facility] Last Admin: 07/22/16 10:44 Dose: 1 ea Magnesium Oxide (Mag-Ox) 400 mg PO BID [facility] Last Admin: 07/22/16 17:35 Dose: 400 mg Polyethylene Glycol (Miralax) 17 gm PO HS [facility] Sodium Chloride (Sodium Chloride Tab) 1 gm PO DAILY@1330 [facility] Last Admin: 07/22/16 12:52 Dose: 1 gm Tamsulosin HCl (Flomax) 0.8 mg PO DAILY [facility] Last Admin: 07/22/16 10:43 Dose: 0.8 mg Tramadol HCl (Ultram) 25 mg PO TID PRN PRN Reason: Pain, moderate (4-7) Last Admin: 07/23/16 00:50 Dose: 25 mg - Labs Labs: 07/17/16 11:33 07/17/16 11:33 - Constitutional Appears: No Acute Distress - Head Exam Head Exam: NORMAL INSPECTION - Eye Exam Eye Exam: Normal appearance. absent: Conjunctival injection, Scleral icterus - ENT Exam ENT Exam: Mucous Membranes Dry - Neck Exam Neck Exam: Normal Inspection - Respiratory Exam Respiratory Exam: Clear to Ausculation Bilateral, NORMAL BREATHING PATTERN. absent: Rales, Rhonchi, Wheezes - Cardiovascular Exam Cardiovascular Exam: +S1, +S2 - GI/Abdominal Exam GI & Abdominal Exam: Soft, Tenderness (to palpation), Hernia, Normal Bowel Sounds - Rectal Exam Rectal Exam: Deferred - Extremities Exam Extremities Exam: absent: Pedal Edema - Back Exam Back Exam: NORMAL INSPECTION. absent: rash noted - Neurological Exam Neurological Exam: Alert, Awake, Oriented x3 - Psychiatric Exam Psychiatric exam: Normal Affect, Normal Mood - Skin Skin Exam: Dry, Intact, Normal Color, Warm Assessment and Plan - Assessment and Plan (Free Text) Assessment: 71yo M with no PMHx admitted for generalized weakness, abdominal pain, and dysuria; now found to have R proximal tibial fracture Plan: Fracture of tibia, proximal, right, closed; pain management and physical therapy Continue physical therapy; goal is for use of cane per ortho. Cane present bedside Patient is progressively weight bearing. No ortho intervention needed at this time. Continue to try to get a facility to accept patient with ambulatory cane. Tylenol 650 mg PO Q6 PRN mild pain Tramadol 25mg TID PRN. Patient instructed to ask for pain when necessary. Daily physical therapy L knee x-ray: severe osteopenia. Sclerotic changes about the posterior proximal tibia may relate to a sclerotic healing response of a prior stress fracture here. no tibial plateau depressed fracture. The sclerosis is perceived on the prior 04/21 study; no interval pathology appreciated between 2 exams. If symptoms worsen consider MRI. 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 imaging every [address] scan in 03/2016, should be monitored in September, Sacral decubitus- resolved Out of bed into chair daily Recommendations for silvadene creme to affected buttocks area History of Urinary Tract Infection Continue to monitor Most recent 06/22 Currently asymptomatic Seborrheic Dermatitis Continue Ketoconazole 2% to affected areas of face BID and Ketoconazole 2% Shampoo to hair twice weekly Cont to monitor progression Soft Stools f/u stool cultures as needed + leukocytes in stool c.diff. - negative hold miralax for now Prophylactic Measure Labs weekly on Sunday Lovenox 40mg SC daily Pepcid 20mg PO BID Patient is homeless. Used to stay with friend, but no longer welcome there. Goal is to walk with cane so he can go to a [facility] (will not qualify with a walker) Pt pending transfer, awaiting placement Will discuss with Dr. Rosalie Amaya PGY1 <Jose Wiggins - Last Filed: 07/23/16 12:16> Objective - Vital Signs/Intake and Output Vital Signs (last 24 hours): Temp Pulse Resp BP Pulse Ox 98.1 F 74 20 112/67 97 07/23/16 08:00 07/23/16 08:00 07/23/16 08:00 07/23/16 08:00 07/23/16 08:00 Intake and Output: 07/23/16 07/23/16 06:59 18:59 Intake Total 480 Output Total 400 Balance 80 - Medications Medications: Current Medications Acetaminophen (Tylenol 325mg Tab) 650 mg PO Q6 PRN PRN Reason: Pain, Mild (1-3) Last Admin: 07/02/16 21:37 Dose: 650 mg Docusate Sodium (Colace) 100 mg PO BID [facility] Last Admin: 07/23/16 10:22 Dose: 100 mg Enoxaparin Sodium (Lovenox) 40 mg SC DAILY [facility] Last Admin: 07/23/16 10:22 Dose: 40 mg Famotidine (Pepcid) 20 mg PO BID [facility] Last Admin: 07/23/16 10:22 Dose: 20 mg Ketoconazole (Nizoral) 0 gm TOP BID [facility] Last Admin: 07/22/16 17:35 Dose: 1 applic Lidocaine (Lidoderm) 1 ea TD DAILY [facility] Last Admin: 07/23/16 10:22 Dose: 1 ea Magnesium Oxide (Mag-Ox) 400 mg PO BID [facility] Last Admin: 07/23/16 10:26 Dose: 400 mg Polyethylene Glycol (Miralax) 17 gm PO HS [facility] Sodium Chloride (Sodium Chloride Tab) 1 gm PO DAILY@1330 [facility] Last Admin: 07/22/16 12:52 Dose: 1 gm Tamsulosin HCl (Flomax) 0.8 mg PO DAILY [facility] Last Admin: 07/23/16 10:22 Dose: 0.8 mg Tramadol HCl (Ultram) 25 mg PO TID PRN PRN Reason: Pain, moderate (4-7) Last Admin: 07/23/16 00:50 Dose: 25 mg - Labs Labs: 07/17/16 11:33 07/17/16 11:33 Attending/Attestation - Attestation I have personally seen and examined this patient.: Yes I have fully participated in the care of the patient.: Yes I have reviewed all pertinent clinical information, including history, physical exam and plan: Yes Notes (Text): 07/23/16 12:16 Patient was seen and examined at bedside today Patient complains of right leg pain No change in clinical condition Continue current management Awaiting placement.
[2016-07-23] MEDS: Enoxaparin 40 mg Syringe SC SCH (10:22)
[2016-07-23] MEDS: Lidocaine 5% Patch TD SCH (10:22)
[2016-07-23] MEDS: Magnesium Oxide 400 mg Tab UD PO SCH ×2 (10:26→17:31)
[2016-07-24] MEDS: Magnesium Oxide 400 mg Tab UD PO SCH ×2 (10:36→18:21)
[2016-07-24] MEDS: Lidocaine 5% Patch TD SCH (10:37)
[2016-07-24] MEDS: Enoxaparin 40 mg Syringe SC SCH (10:39)
--- NOTE | 2016-07-24 12:09 | CP.PCM.PN ---
Subjective - Date & Time of Evaluation Date of Evaluation: 07/24/16 Time of Evaluation: 11:00 - Subjective Subjective: Patient walking around room with walker, easily but NWB on right. Says he is feeling a little better today. No new complaints. Denies CP/SOB/dizziness/ numbness/tingling/increased pain. Objective - Vital Signs/Intake and Output Vital Signs (last 24 hours): Temp Pulse Resp BP Pulse Ox 98.7 F 77 20 117/69 97 07/24/16 07:53 07/24/16 07:53 07/24/16 07:53 07/24/16 07:53 07/24/16 07:53 Intake and Output: 07/24/16 07/24/16 06:59 18:59 Intake Total 660 Output Total 700 Balance -40 - Medications Medications: Current Medications Acetaminophen (Tylenol 325mg Tab) 650 mg PO Q6 PRN PRN Reason: Pain, Mild (1-3) Last Admin: 07/02/16 21:37 Dose: 650 mg Docusate Sodium (Colace) 100 mg PO BID [facility] Last Admin: 07/24/16 10:36 Dose: 100 mg Enoxaparin Sodium (Lovenox) 40 mg SC DAILY [facility] Last Admin: 07/24/16 10:39 Dose: 40 mg Famotidine (Pepcid) 20 mg PO BID [facility] Last Admin: 07/24/16 10:36 Dose: 20 mg Ketoconazole (Nizoral) 0 gm TOP BID [facility] Last Admin: 07/24/16 10:37 Dose: 1 applic Lidocaine (Lidoderm) 1 ea TD DAILY [facility] Last Admin: 07/24/16 10:37 Dose: 1 ea Magnesium Oxide (Mag-Ox) 400 mg PO BID [facility] Last Admin: 07/24/16 10:36 Dose: 400 mg Polyethylene Glycol (Miralax) 17 gm PO HS [facility] Sodium Chloride (Sodium Chloride Tab) 1 gm PO DAILY@1330 [facility] Last Admin: 07/23/16 13:48 Dose: 1 gm Tamsulosin HCl (Flomax) 0.8 mg PO DAILY [facility] Last Admin: 07/24/16 10:35 Dose: 0.8 mg Tramadol HCl (Ultram) 25 mg PO TID PRN PRN Reason: Pain, moderate (4-7) Last Admin: 07/23/16 00:50 Dose: 25 mg - Labs Labs: 07/17/16 11:33 07/17/16 11:33 - Constitutional Appears: Well, No Acute Distress - Respiratory Exam Respiratory Exam: NORMAL BREATHING PATTERN - Cardiovascular Exam Additional comments: calves soft NT neg homans +DP pules bilaterally - Extremities Exam Additional comments: RLE: active knee extension continues to improve. He is able to actively extend knee from approx 80-60 degrees. Still very significant lag. quad strength slowly improving. Active knee flexion improving while seated. 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 Pino agrees with above Status: Chronic
[2016-07-24 12:18] LABS: BASO % 0.4 % (0.0-2.0); EOS # 0.1 K/uL (0.0-0.7); EOS % 1.3 % (0.0-4.0); HEMOGLOBIN 13.1 g/dL (12.0-18.0); LYMPH # 1.1 K/uL (1.0-4.3); LYMPH % 24.5 % (20.0-40.0); MEAN CELL VOLUME 96.6 fL (80.0-94.0); MEAN CORPUSCULAR HEMOGLOBIN 31.7 pg (27.0-31.0); MEAN CORPUSCULAR HGB CONC 32.8 g/dL (33.0-37.0); MONO # 0.4 K/uL (0.0-0.8); MONO % 9.3 % (0.0-10.0); NEUT # 2.9 K/uL (1.8-7.0); NEUT % 64.5 % (50.0-75.0); RBC 4.13 Mil/uL (4.40-5.90); RED CELL DISTRIBUTION WIDTH 13.6 % (11.5-14.5); WHITE BLOOD COUNT 4.5 K/uL (4.8-10.8)
[2016-07-24 12:23] LABS: AST/SGOT 17 U/L (17-59); GFR AFRICAN-AMERICAN > 60; GFR NON-AFRICAN AMERICAN > 60
[2016-07-24 12:24] LABS: ALT/SGPT 15 U/L (21-72); BLOOD UREA NITROGEN 10 mg/dL (9-20); CALCIUM 8.9 mg/dl (8.6-10.4)
--- NOTE | 2016-07-24 16:54 | CP.PCM.PN ---
<Magnus Mcgovern - Last Filed: 07/24/16 16:50> Subjective - Date & Time of Evaluation Date of Evaluation: 07/24/16 Time of Evaluation: 07:52 - Subjective Subjective: Pt seen and examined. Pt clincially the same. Pt complains of constipation and pain in his right hip and knee. Pt denies fever, chills, chest pain, shortness of breath, nausea, and vomiting. Objective - Vital Signs/Intake and Output Vital Signs (last 24 hours): Temp Pulse Resp BP Pulse Ox 98.7 F 77 20 117/69 97 07/24/16 07:53 07/24/16 07:53 07/24/16 07:53 07/24/16 07:53 07/24/16 07:53 Intake and Output: 07/24/16 07/24/16 06:59 18:59 Intake Total 660 550 Output Total 700 150 Balance -40 400 - Medications Medications: Current Medications Acetaminophen (Tylenol 325mg Tab) 650 mg PO Q6 PRN PRN Reason: Pain, Mild (1-3) Last Admin: 07/24/16 13:49 Dose: 650 mg Docusate Sodium (Colace) 100 mg PO BID [facility] Last Admin: 07/24/16 10:36 Dose: 100 mg Enoxaparin Sodium (Lovenox) 40 mg SC DAILY [facility] Last Admin: 07/24/16 10:39 Dose: 40 mg Famotidine (Pepcid) 20 mg PO BID [facility] Last Admin: 07/24/16 10:36 Dose: 20 mg Ketoconazole (Nizoral) 0 gm TOP BID [facility] Last Admin: 07/24/16 10:37 Dose: 1 applic Lidocaine (Lidoderm) 1 ea TD DAILY [facility] Last Admin: 07/24/16 10:37 Dose: 1 ea Magnesium Oxide (Mag-Ox) 400 mg PO BID [facility] Last Admin: 07/24/16 10:36 Dose: 400 mg Polyethylene Glycol (Miralax) 17 gm PO HS [facility] Sodium Chloride (Sodium Chloride Tab) 1 gm PO DAILY@1330 [facility] Last Admin: 07/24/16 12:33 Dose: 1 gm Tamsulosin HCl (Flomax) 0.8 mg PO DAILY [facility] Last Admin: 07/24/16 10:35 Dose: 0.8 mg Tramadol HCl (Ultram) 25 mg PO TID PRN PRN Reason: Pain, moderate (4-7) Last Admin: 07/23/16 00:50 Dose: 25 mg - Labs Labs: 07/24/16 12:03 07/24/16 12:03 - Constitutional Appears: No Acute Distress - Head Exam Head Exam: ATRAUMATIC, NORMOCEPHALIC - Eye Exam Eye Exam: EOMI, PERRL - ENT Exam ENT Exam: Mucous Membranes Moist. absent: Mucous Membranes Dry - Neck Exam Neck Exam: Full ROM. absent: Lymphadenopathy - Cardiovascular Exam Cardiovascular Exam: +S1, +S2. absent: Gallop, Rubs, Murmur - GI/Abdominal Exam GI & Abdominal Exam: Soft. absent: Distended, Guarding, Tenderness - Extremities Exam Extremities Exam: absent: Pedal Edema - Neurological Exam Neurological Exam: Alert, Awake, Oriented x3 - Psychiatric Exam Psychiatric exam: Normal Affect, Normal Mood - Skin Skin Exam: Normal Color, Warm Assessment and Plan - Assessment and Plan (Free Text) Assessment: Constipation: Lactulose one dose Fracture of tibia, proximal, right, closed; pain management and physical therapy Continue physical therapy; goal is for use of cane per ortho. Cane present bedside Patient is progressively weight bearing. No ortho intervention needed at this time. Continue to try to get a facility to accept patient with ambulatory cane. Tylenol 650 mg PO Q6 PRN mild pain Tramadol 25mg TID PRN. Patient instructed to ask for pain when necessary. Daily physical therapy L knee x-ray: severe osteopenia. Sclerotic changes about the posterior proximal tibia may relate to a sclerotic healing response of a prior stress fracture here. no tibial plateau depressed fracture. The sclerosis is perceived on the prior 04/21 study; no interval pathology appreciated between 2 exams. If symptoms worsen consider MRI. 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 imaging every [address] scan in 03/2016, should be monitored in September, Sacral decubitus- resolved Out of bed into chair daily Recommendations for silvadene creme to affected buttocks area History of Urinary Tract Infection Continue to monitor Most recent 06/22 Currently asymptomatic Seborrheic Dermatitis Continue Ketoconazole 2% to affected areas of face BID and Ketoconazole 2% Shampoo to hair twice weekly Cont to monitor progression Soft Stools f/u stool cultures as needed + leukocytes in stool c.diff. - negative hold miralax for now Prophylactic Measure Labs weekly on Sunday Lovenox 40mg SC daily Pepcid 20mg PO BID Patient is homeless. Used to stay with friend, but no longer welcome there. Goal is to walk with cane so he can go to a residential (will not qualify with a walker) Pt pending transfer, awaiting placement <Parker Cantu - Last Filed: 08/23/16 14:13> Objective - Vital Signs/Intake and Output Vital Signs (last 24 hours): Temp Pulse Resp BP Pulse Ox 98.5 F 82 20 109/69 97 08/23/16 08:00 08/23/16 08:00 08/23/16 08:00 08/23/16 08:00 08/23/16 08:00 Intake and Output: 08/23/16 08/23/16 06:59 18:59 Intake Total 810 400 Balance 810 400 - Medications Medications: Current Medications Acetaminophen (Tylenol 325mg Tab) 650 mg PO Q6 PRN PRN Reason: Pain, Mild (1-3) Last Admin: 08/23/16 09:12 Dose: 650 mg Bisacodyl (Dulcolax) 5 mg PO Q12 PRN PRN Reason: Constipation Last Admin: 08/18/16 14:47 Dose: 5 mg Enoxaparin Sodium (Lovenox) 40 mg SC DAILY [facility] Last Admin: 08/23/16 09:12 Dose: 40 mg Famotidine (Pepcid) 20 mg PO BID [facility] Last Admin: 08/23/16 09:12 Dose: 20 mg Lidocaine (Lidoderm) 1 ea TD DAILY [facility] Last Admin: 08/23/16 09:13 Dose: 1 ea Polyethylene Glycol (Miralax) 17 gm PO DAILY [facility] Last Admin: 08/21/16 09:12 Dose: Not Given Simethicone (Mylicon Chew Tab) 80 mg PO QID PRN PRN Reason: GI distress Last Admin: 08/22/16 09:42 Dose: 80 mg Tamsulosin HCl (Flomax) 0.8 mg PO DAILY [facility] Last Admin: 08/23/16 09:11 Dose: 0.8 mg Tramadol HCl (Ultram) 50 mg PO TID PRN PRN Reason: Pain, moderate (4-7) Last Admin: 08/23/16 09:11 Dose: 50 mg - Labs Labs: 08/21/16 11:16 08/21/16 11:16 Attending/Attestation - Attestation I have personally seen and examined this patient.: Yes I have fully participated in the care of the patient.: Yes I have reviewed all pertinent clinical information, including history, physical exam and plan: Yes Notes (Text): Patient Seen and examined with the resident. Agree with the resident's evaluation, assessment and plan. Fracture of tibia, proximal, right, closed; pain management and physical therapy Continue physical therapy; goal is for use of cane per ortho. Cane present bedside Gait Instability; will continue with PT/OT 8 weeks of immobilization and protected WB as per ortho BPH Flomax 0.8 mg PO daily
--- NOTE | 2016-07-25 09:46 | CP.PCM.CON ---
History of Present Illness - History of Present Illness History of Present Illness: 71 year old male for painful thickened fungal nails of chronic nature. Past Patient History - Infectious Disease Hx of Infectious Diseases: None - Past Medical History & Family History Past Medical History?: Yes - Past Social History Smoking Status: Never Smoked - CARDIAC Hx Hypertension: Yes - PULMONARY Hx Chronic Obstructive Pulmonary Disease (COPD): Yes - NEUROLOGICAL Hx Neurological Disorder: No - HEENT Hx HEENT Problems: No - RENAL Hx Chronic Kidney Disease: No - ENDOCRINE/METABOLIC Hx Endocrine Disorders: No - HEMATOLOGICAL/ONCOLOGICAL Hx Human Immunodeficiency Virus (HIV): No - INTEGUMENTARY Hx Dermatological Problems: No - MUSCULOSKELETAL/RHEUMATOLOGICAL Hx Arthritis: Yes - GASTROINTESTINAL Hx Gastrointestinal Disorders: No - GENITOURINARY/GYNECOLOGICAL Hx Genitourinary Disorders: Yes - PSYCHIATRIC Hx Anxiety: Yes Hx Depression: Yes Hx Substance Use: No - SURGICAL HISTORY Hx Herniorrhaphy: Yes Other/Comment: Hip surgery and abdominal surgery - ANESTHESIA Hx Anesthesia: Yes Hx Anesthesia Reactions: No Meds Allergies/Adverse Reactions: Allergies Allergy/AdvReac Type Severity Reaction Status Date / Time No Known Allergies Allergy Verified 03/08/16 19:44 - Medications Medications: Current Medications Acetaminophen (Tylenol 325mg Tab) 650 mg PO Q6 PRN PRN Reason: Pain, Mild (1-3) Last Admin: 07/24/16 13:49 Dose: 650 mg Docusate Sodium (Colace) 100 mg PO BID [facility] Last Admin: 07/24/16 18:21 Dose: 100 mg Enoxaparin Sodium (Lovenox) 40 mg SC DAILY [facility] Last Admin: 07/24/16 10:39 Dose: 40 mg Famotidine (Pepcid) 20 mg PO BID [facility] Last Admin: 07/24/16 18:21 Dose: 20 mg Ketoconazole (Nizoral) 0 gm TOP BID [facility] Last Admin: 07/24/16 18:21 Dose: 1 applic Lidocaine (Lidoderm) 1 ea TD DAILY [facility] Last Admin: 07/24/16 10:37 Dose: 1 ea Magnesium Oxide (Mag-Ox) 400 mg PO BID [facility] Last Admin: 07/24/16 18:21 Dose: 400 mg Polyethylene Glycol (Miralax) 17 gm PO HS [facility] Sodium Chloride (Sodium Chloride Tab) 1 gm PO DAILY@1330 [facility] Last Admin: 07/24/16 12:33 Dose: 1 gm Tamsulosin HCl (Flomax) 0.8 mg PO DAILY [facility] Last Admin: 07/24/16 10:35 Dose: 0.8 mg Tramadol HCl (Ultram) 25 mg PO TID PRN PRN Reason: Pain, moderate (4-7) Last Admin: 07/23/16 00:50 Dose: 25 mg Physical Exam - Extremities Exam Additional comments: O/Tinea unguim /Xerosis Cutis . Integument intact .Vascualar Intact . Results - Vital Signs Recent Vital Signs: Last Vital Signs Temp 97.8 F 07/25/16 07:08 Pulse 78 07/25/16 07:08 Resp 20 07/25/16 07:08 BP 126/74 07/25/16 07:08 Pulse Ox 98 07/25/16 07:08 - Labs Result Diagrams: 07/24/16 12:03 07/24/16 12:03 Labs: Laboratory Results - last 24 hr 07/24/16 07/24/16 12:03 12:03 WBC 4.5 L RBC 4.13 L Hgb 13.1 Hct 39.9 MCV 96.6 H MCH 31.7 H MCHC 32.8 L RDW 13.6 Plt Count 223 MPV 8.0 Neut % (Auto) 64.5 Lymph % (Auto) 24.5 [place] % (Auto) 9.3 Eos % (Auto) 1.3 Baso % (Auto) 0.4 Neut # 2.9 Lymph # 1.1 [place] # 0.4 Eos # 0.1 Baso # 0.0 Sodium 134 Potassium 3.8 Chloride 98 Carbon Dioxide 27 Anion Gap 13 BUN 10 Creatinine 0.7 L Est GFR ( Amer) > 60 Est GFR (Non-Af Amer) > 60 Random Glucose 89 Calcium 8.9 Total Bilirubin 0.7 AST 17 ALT 15 L Alkaline Phosphatase 82 Total Protein 8.2 Albumin 4.0 Globulin 4.2 H Albumin/Globulin Ratio 1.0
[2016-07-25] MEDS: Enoxaparin 40 mg Syringe SC SCH (10:24)
[2016-07-25] MEDS: Magnesium Oxide 400 mg Tab UD PO SCH ×2 (10:25→17:39)
[2016-07-25] MEDS: Lidocaine 5% Patch TD SCH (10:25)
[2016-07-25] MEDS: Tramadol 25 mg PO PRN (10:29)
--- NOTE | 2016-07-25 12:35 | CP.PCM.CON ---
History of Present Illness - History of Present Illness History of Present Illness: Podiatry consult note- Dr. Hughes 71 year old male with PMHx of anemia, aortic aneurism, b/l LE edema, seen by podiatry for bilateral lower extremity nail care. Patient seen and evaluated at bedside this morning, no acute distress. He complains of pain to his nails as well as dry, scaly skin. Patient has no open lesions present. Pt AAOx3, denies n /v/f/c/sob. Past Patient History - Infectious Disease Hx of Infectious Diseases: None - Past Medical History & Family History Past Medical History?: Yes - Past Social History Smoking Status: Never Smoked - CARDIAC Hx Hypertension: Yes - PULMONARY Hx Chronic Obstructive Pulmonary Disease (COPD): Yes - NEUROLOGICAL Hx Neurological Disorder: No - HEENT Hx HEENT Problems: No - RENAL Hx Chronic Kidney Disease: No - ENDOCRINE/METABOLIC Hx Endocrine Disorders: No - HEMATOLOGICAL/ONCOLOGICAL Hx Human Immunodeficiency Virus (HIV): No - INTEGUMENTARY Hx Dermatological Problems: No - MUSCULOSKELETAL/RHEUMATOLOGICAL Hx Arthritis: Yes - GASTROINTESTINAL Hx Gastrointestinal Disorders: No - GENITOURINARY/GYNECOLOGICAL Hx Genitourinary Disorders: Yes - PSYCHIATRIC Hx Anxiety: Yes Hx Depression: Yes Hx Substance Use: No - SURGICAL HISTORY Hx Herniorrhaphy: Yes Other/Comment: Hip surgery and abdominal surgery - ANESTHESIA Hx Anesthesia: Yes Hx Anesthesia Reactions: No Meds Allergies/Adverse Reactions: Allergies Allergy/AdvReac Type Severity Reaction Status Date / Time No Known Allergies Allergy Verified 03/08/16 19:44 - Medications Medications: Current Medications Acetaminophen (Tylenol 325mg Tab) 650 mg PO Q6 PRN PRN Reason: Pain, Mild (1-3) Last Admin: 07/24/16 13:49 Dose: 650 mg Docusate Sodium (Colace) 100 mg PO BID [facility] Last Admin: 07/25/16 10:23 Dose: Not Given Enoxaparin Sodium (Lovenox) 40 mg SC DAILY [facility] Last Admin: 07/25/16 10:24 Dose: 40 mg Famotidine (Pepcid) 20 mg PO BID [facility] Last Admin: 07/25/16 10:24 Dose: 20 mg Ketoconazole (Nizoral) 0 gm TOP BID [facility] Last Admin: 07/24/16 18:21 Dose: 1 applic Lidocaine (Lidoderm) 1 ea TD DAILY [facility] Last Admin: 07/25/16 10:25 Dose: 1 ea Magnesium Oxide (Mag-Ox) 400 mg PO BID [facility] Last Admin: 07/25/16 10:25 Dose: 400 mg Polyethylene Glycol (Miralax) 17 gm PO HS [facility] Sodium Chloride (Sodium Chloride Tab) 1 gm PO DAILY@1330 [facility] Last Admin: 07/24/16 12:33 Dose: 1 gm Tamsulosin HCl (Flomax) 0.8 mg PO DAILY [facility] Last Admin: 07/25/16 10:24 Dose: 0.8 mg Tramadol HCl (Ultram) 25 mg PO TID PRN PRN Reason: Pain, moderate (4-7) Last Admin: 07/25/16 10:29 Dose: 25 mg Physical Exam - Constitutional Appears: Well, Non-toxic, No Acute Distress - Neurological Exam Neurological exam: Oriented x3 - Psychiatric Exam Psychiatric exam: Normal Affect, Normal Mood - Additional Findings Additional findings: DERMATOLOGIC: Skin is intact, no open lesions or rashes, there is diffuse xerosis bilaterally with scaling of the skin. Nails are thickened, elongated and discolored x10. VASCULAR: DP/PT pulses 2/4, FOREIGN AGENT<3 secomds, skin temperature is normal, there is mild diffuse edema present bilaterally NEUROLOGIC: Gross sensation intact ORTHOPEDIC: Mild pain on palpation to the lower extremities Results - Vital Signs Recent Vital Signs: Last Vital Signs Temp 97.8 F 07/25/16 07:08 Pulse 78 07/25/16 07:08 Resp 20 07/25/16 07:08 BP 126/74 07/25/16 07:08 Pulse Ox 98 07/25/16 07:08 - Labs Result Diagrams: 07/24/16 12:03 07/24/16 12:03 Assessment & Plan - Assessment and Plan (Free Text) Assessment: 71 year old male with bilateral onychomycosis and xerosis. Plan: Patient seen and evaluated with attending, Dr. Hughes Patients nails sharply debrided x10 Applid clotrimazole to bilateral lower extremities which is at bedside Thank you for this consultation, please reconsult as needed
--- NOTE | 2016-07-25 17:15 | CP.PCM.PN ---
<Magnus Mcgovern - Last Filed: 07/25/16 17:54> Subjective - Date & Time of Evaluation Date of Evaluation: 07/25/16 Time of Evaluation: 09:44 - Subjective Subjective: Pt seen and examined. Pt clinically the same. Pt reports that his constipation has resolved. Pt ambulating with walker. Pt denies fever, chills, chest pain, shortness of breath, nausea, and vomiting. Objective - Vital Signs/Intake and Output Vital Signs (last 24 hours): Temp Pulse Resp BP Pulse Ox 97.8 F 78 20 126/74 98 07/25/16 07:08 07/25/16 07:08 07/25/16 07:08 07/25/16 07:08 07/25/16 07:08 Intake and Output: 07/25/16 07/25/16 06:59 18:59 Intake Total 760 Output Total 400 Balance 360 - Medications Medications: Current Medications Acetaminophen (Tylenol 325mg Tab) 650 mg PO Q6 PRN PRN Reason: Pain, Mild (1-3) Last Admin: 07/24/16 13:49 Dose: 650 mg Docusate Sodium (Colace) 100 mg PO BID [facility] Last Admin: 07/25/16 10:23 Dose: Not Given Enoxaparin Sodium (Lovenox) 40 mg SC DAILY [facility] Last Admin: 07/25/16 10:24 Dose: 40 mg Famotidine (Pepcid) 20 mg PO BID [facility] Last Admin: 07/25/16 10:24 Dose: 20 mg Ketoconazole (Nizoral) 0 gm TOP BID [facility] Last Admin: 07/25/16 13:37 Dose: 1 applic Lidocaine (Lidoderm) 1 ea TD DAILY [facility] Last Admin: 07/25/16 10:25 Dose: 1 ea Magnesium Oxide (Mag-Ox) 400 mg PO BID [facility] Last Admin: 07/25/16 10:25 Dose: 400 mg Polyethylene Glycol (Miralax) 17 gm PO HS [facility] Sodium Chloride (Sodium Chloride Tab) 1 gm PO DAILY@1330 [facility] Last Admin: 07/25/16 13:37 Dose: 1 gm Tamsulosin HCl (Flomax) 0.8 mg PO DAILY [facility] Last Admin: 07/25/16 10:24 Dose: 0.8 mg Tramadol HCl (Ultram) 25 mg PO TID PRN PRN Reason: Pain, moderate (4-7) Last Admin: 07/25/16 10:29 Dose: 25 mg - Labs Labs: 07/24/16 12:03 07/24/16 12:03 - Constitutional Appears: No Acute Distress - Head Exam Head Exam: ATRAUMATIC, NORMOCEPHALIC - Eye Exam Eye Exam: EOMI, PERRL - ENT Exam ENT Exam: Mucous Membranes Moist. absent: Mucous Membranes Dry - Respiratory Exam Respiratory Exam: Clear to Ausculation Bilateral. absent: Rales, Rhonchi, Wheezes - Cardiovascular Exam Cardiovascular Exam: +S1, +S2. absent: Gallop, Rubs - GI/Abdominal Exam GI & Abdominal Exam: Soft. absent: Tenderness - Neurological Exam Neurological Exam: Alert, Awake, Oriented x3 - Psychiatric Exam Psychiatric exam: Normal Affect, Normal Mood - Skin Skin Exam: Normal Color, Warm Assessment and Plan - Assessment and Plan (Free Text) Assessment: Constipation: Resolved Fracture of tibia, proximal, right, closed; pain management and physical therapy Continue physical therapy; goal is for use of cane per ortho. Cane present bedside Patient is progressively weight bearing. No ortho intervention needed at this time. Continue to try to get a facility to accept patient with ambulatory cane. Tylenol 650 mg PO Q6 PRN mild pain Tramadol 25mg TID PRN. Patient instructed to ask for pain when necessary. Daily physical therapy L knee x-ray: severe osteopenia. Sclerotic changes about the posterior proximal tibia may relate to a sclerotic healing response of a prior stress fracture here. no tibial plateau depressed fracture. The sclerosis is perceived on the prior 04/21 study; no interval pathology appreciated between 2 exams. If symptoms worsen consider MRI. 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 imaging every [address] scan in 03/2016, should be monitored in September, Sacral decubitus- resolved Out of bed into chair daily Recommendations for silvadene creme to affected buttocks area History of Urinary Tract Infection Continue to monitor Most recent 06/22 Currently asymptomatic Seborrheic Dermatitis Continue Ketoconazole 2% to affected areas of face BID and Ketoconazole 2% Shampoo to hair twice weekly Cont to monitor progression Soft Stools f/u stool cultures as needed + leukocytes in stool c.diff. - negative hold miralax for now Prophylactic Measure Labs weekly on Sunday Lovenox 40mg SC daily Pepcid 20mg PO BID Patient is homeless. Used to stay with friend, but no longer welcome there. Goal is to walk with cane so he can go to a skilled nursing (will not qualify with a walker) Pt pending transfer, awaiting placement <Parker Cantu - Last Filed: 08/23/16 14:15> Objective - Vital Signs/Intake and Output Vital Signs (last 24 hours): Temp Pulse Resp BP Pulse Ox 98.5 F 82 20 109/69 97 08/23/16 08:00 08/23/16 08:00 08/23/16 08:00 08/23/16 08:00 08/23/16 08:00 Intake and Output: 08/23/16 08/23/16 06:59 18:59 Intake Total 810 400 Balance 810 400 - Medications Medications: Current Medications Acetaminophen (Tylenol 325mg Tab) 650 mg PO Q6 PRN PRN Reason: Pain, Mild (1-3) Last Admin: 08/23/16 09:12 Dose: 650 mg Bisacodyl (Dulcolax) 5 mg PO Q12 PRN PRN Reason: Constipation Last Admin: 08/18/16 14:47 Dose: 5 mg Enoxaparin Sodium (Lovenox) 40 mg SC DAILY [facility] Last Admin: 08/23/16 09:12 Dose: 40 mg Famotidine (Pepcid) 20 mg PO BID [facility] Last Admin: 08/23/16 09:12 Dose: 20 mg Lidocaine (Lidoderm) 1 ea TD DAILY [facility] Last Admin: 08/23/16 09:13 Dose: 1 ea Polyethylene Glycol (Miralax) 17 gm PO DAILY [facility] Last Admin: 08/21/16 09:12 Dose: Not Given Simethicone (Mylicon Chew Tab) 80 mg PO QID PRN PRN Reason: GI distress Last Admin: 08/22/16 09:42 Dose: 80 mg Tamsulosin HCl (Flomax) 0.8 mg PO DAILY [facility] Last Admin: 08/23/16 09:11 Dose: 0.8 mg Tramadol HCl (Ultram) 50 mg PO TID PRN PRN Reason: Pain, moderate (4-7) Last Admin: 08/23/16 09:11 Dose: 50 mg - Labs Labs: 08/21/16 11:16 08/21/16 11:16 Attending/Attestation - Attestation I have personally seen and examined this patient.: Yes I have fully participated in the care of the patient.: Yes I have reviewed all pertinent clinical information, including history, physical exam and plan: Yes Notes (Text): Patient Seen and examined with the resident. Agree with the resident's evaluation, assessment and plan. Fracture of tibia, proximal, right, closed; pain management and physical therapy Continue physical therapy; goal is for use of cane per ortho. Cane present bedside Gait Instability; will continue with PT/OT 8 weeks of immobilization and protected WB as per ortho BPH Flomax 0.8 mg PO daily
[2016-07-26] MEDS: Tramadol 25 mg PO PRN (08:03)
[2016-07-26] MEDS: Magnesium Oxide 400 mg Tab UD PO SCH ×2 (10:43→17:57)
[2016-07-26] MEDS: Enoxaparin 40 mg Syringe SC SCH (10:45)
[2016-07-26] MEDS: Lidocaine 5% Patch TD SCH (10:45)
[2016-07-26] MEDS: Ammonium Lactate 12% Lotion (225 g) EXT SCH (13:50)
--- NOTE | 2016-07-26 18:24 | CP.PCM.PN ---
<Magnus Mcgovern - Last Filed: 07/26/16 18:14> Subjective - Date & Time of Evaluation Date of Evaluation: 07/26/16 Time of Evaluation: 07:58 - Subjective Subjective: Pt seen and examined. Pt reports that he has pain in his right hip. Pt reports that he has normal bowel movements. Pt denies fever, chills, chest pain, nausea , and vomiting. Objective - Vital Signs/Intake and Output Vital Signs (last 24 hours): Temp Pulse Resp BP Pulse Ox 98.3 F 87 20 100/63 97 07/26/16 17:00 07/26/16 17:00 07/26/16 17:00 07/26/16 17:00 07/26/16 17:00 Intake and Output: 07/26/16 07/26/16 06:59 18:59 Intake Total 240 Output Total 500 Balance -260 - Medications Medications: Current Medications Acetaminophen (Tylenol 325mg Tab) 650 mg PO Q6 PRN PRN Reason: Pain, Mild (1-3) Last Admin: 07/24/16 13:49 Dose: 650 mg Docusate Sodium (Colace) 100 mg PO BID [facility] Last Admin: 07/26/16 17:26 Dose: 100 mg Enoxaparin Sodium (Lovenox) 40 mg SC DAILY [facility] Last Admin: 07/26/16 10:45 Dose: 40 mg Famotidine (Pepcid) 20 mg PO BID [facility] Last Admin: 07/26/16 17:35 Dose: 20 mg Lactic Acid (Lac-Hydrin 12% Lotion (225 G)) 0 gm EXT Q12H [facility] Last Admin: 07/26/16 13:50 Dose: 1 appl Lidocaine (Lidoderm) 1 ea TD DAILY [facility] Last Admin: 07/26/16 10:45 Dose: 1 ea Magnesium Oxide (Mag-Ox) 400 mg PO BID [facility] Last Admin: 07/26/16 17:57 Dose: 400 mg Polyethylene Glycol (Miralax) 17 gm PO HS [facility] Last Admin: 07/26/16 10:43 Dose: 17 gm Sodium Chloride (Sodium Chloride Tab) 1 gm PO DAILY@1330 [facility] Last Admin: 07/26/16 13:50 Dose: 1 gm Tamsulosin HCl (Flomax) 0.8 mg PO DAILY [facility] Last Admin: 07/26/16 10:43 Dose: 0.4 mg Tramadol HCl (Ultram) 25 mg PO TID PRN PRN Reason: Pain, moderate (4-7) Last Admin: 07/26/16 08:03 Dose: 25 mg - Labs Labs: 07/24/16 12:03 07/24/16 12:03 - Constitutional Appears: No Acute Distress - Head Exam Head Exam: ATRAUMATIC, NORMOCEPHALIC - Eye Exam Eye Exam: EOMI, PERRL - ENT Exam ENT Exam: Mucous Membranes Moist. absent: Mucous Membranes Dry - Respiratory Exam Respiratory Exam: Clear to Ausculation Bilateral. absent: Rales, Rhonchi, Wheezes - Cardiovascular Exam Cardiovascular Exam: +S1, +S2. absent: Gallop, Rubs - GI/Abdominal Exam GI & Abdominal Exam: Soft, Normal Bowel Sounds. absent: Distended, Tenderness - Extremities Exam Additional comments: b/l lower extremity venous stasis - Back Exam Additional comments: Stage 1 sacral ulcer - Neurological Exam Neurological Exam: Alert, Awake, Oriented x3 - Psychiatric Exam Psychiatric exam: Normal Affect, Normal Mood - Skin Skin Exam: Warm (b/l lower extremity venous stasis) Assessment and Plan - Assessment and Plan (Free Text) Assessment: Lac-hydrin prn for venous stasis. Salt tabs discontinued, hyponatremia resolved. B12 injection. Constipation: MagOx discontinued Fracture of tibia, proximal, right, closed; pain management and physical therapy Continue physical therapy; goal is for use of cane per ortho. Cane present bedside Patient is progressively weight bearing. No ortho intervention needed at this time. Continue to try to get a facility to accept patient with ambulatory cane. Tylenol 650 mg PO Q6 PRN mild pain Tramadol 25mg TID PRN. Patient instructed to ask for pain when necessary. Daily physical therapy L knee x-ray: severe osteopenia. Sclerotic changes about the posterior proximal tibia may relate to a sclerotic healing response of a prior stress fracture here. no tibial plateau depressed fracture. The sclerosis is perceived on the prior 04/21 study; no interval pathology appreciated between 2 exams. If symptoms worsen consider MRI. 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 imaging every [address] scan in 03/2016, should be monitored in September, Sacral decubitus- resolved Out of bed into chair daily Recommendations for silvadene creme to affected buttocks area History of Urinary Tract Infection Continue to monitor Most recent 06/22 Currently asymptomatic Seborrheic Dermatitis Continue Ketoconazole 2% to affected areas of face BID and Ketoconazole 2% Shampoo to hair twice weekly Cont to monitor progression Soft Stools f/u stool cultures as needed + leukocytes in stool c.diff. - negative hold miralax for now Prophylactic Measure Labs weekly on Sunday Lovenox 40mg SC daily Pepcid 20mg PO BID Patient is homeless. Used to stay with friend, but no longer welcome there. Goal is to walk with cane so he can go to a senior care (will not qualify with a walker) Pt pending transfer, awaiting placement <Amado Matta - Last Filed: 07/30/16 17:36> Objective - Vital Signs/Intake and Output Vital Signs (last 24 hours): Temp Pulse Resp BP Pulse Ox 98 F 82 20 105/60 97 07/30/16 08:00 07/30/16 08:00 07/30/16 08:00 07/30/16 08:00 07/30/16 08:00 Intake and Output: 07/30/16 07/30/16 06:59 18:59 Intake Total 1080 Output Total 400 Balance 680 - Medications Medications: Current Medications Acetaminophen (Tylenol 325mg Tab) 650 mg PO Q6 PRN PRN Reason: Pain, Mild (1-3) Last Admin: 07/24/16 13:49 Dose: 650 mg Enoxaparin Sodium (Lovenox) 40 mg SC DAILY [facility] Last Admin: 07/30/16 10:21 Dose: 40 mg Lactic Acid (Lac-Hydrin 12% Lotion (225 G)) 0 gm EXT Q12H [facility] Last Admin: 07/30/16 13:13 Dose: Not Given Lidocaine (Lidoderm) 1 ea TD DAILY [facility] Last Admin: 07/30/16 10:24 Dose: 1 ea Tamsulosin HCl (Flomax) 0.8 mg PO DAILY [facility] Last Admin: 07/30/16 10:23 Dose: 0.8 mg Tramadol HCl (Ultram) 25 mg PO TID PRN PRN Reason: Pain, moderate (4-7) Last Admin: 07/30/16 10:22 Dose: 25 mg - Labs Labs: 07/24/16 12:03 07/24/16 12:03 Attending/Attestation - Attestation I have personally seen and examined this patient.: Yes I have fully participated in the care of the patient.: Yes I have reviewed all pertinent clinical information, including history, physical exam and plan: Yes Notes (Text): 07/30/16 17:33 This patient was seen and examined at 11 AM 07/26/16 Exam, History, Assessment and Plan were thoroughly gone over with the resident Please note the following: Extremities: Bilateral feet to knees there are venous stasis discoloration of the ski and hyperkeratosis (Lac Hydrin ordered) Magoxide was discontinued as patient has been on this since beginning of June 2016 and there were complaints of episodes of diarrhea alternating with episodes of constipation. Amado Matta D.O.
--- NOTE | 2016-07-27 19:10 | CP.PCM.PN ---
<Esme Garcia V - Last Filed: 07/27/16 20:22> Objective - Vital Signs/Intake and Output Vital Signs (last 24 hours): Temp Pulse Resp BP Pulse Ox 98.3 F 87 20 100/63 97 07/26/16 17:00 07/26/16 17:00 07/26/16 17:00 07/26/16 17:00 07/26/16 17:00 - Medications Medications: Current Medications Acetaminophen (Tylenol 325mg Tab) 650 mg PO Q6 PRN PRN Reason: Pain, Mild (1-3) Last Admin: 07/24/16 13:49 Dose: 650 mg Docusate Sodium (Colace) 100 mg PO BID [facility] Last Admin: 07/26/16 17:26 Dose: 100 mg Enoxaparin Sodium (Lovenox) 40 mg SC DAILY [facility] Last Admin: 07/26/16 10:45 Dose: 40 mg Famotidine (Pepcid) 20 mg PO BID [facility] Last Admin: 07/26/16 17:35 Dose: 20 mg Lactic Acid (Lac-Hydrin 12% Lotion (225 G)) 0 gm EXT Q12H [facility] Last Admin: 07/26/16 13:50 Dose: 1 appl Lidocaine (Lidoderm) 1 ea TD DAILY [facility] Last Admin: 07/26/16 10:45 Dose: 1 ea Polyethylene Glycol (Miralax) 17 gm PO HS [facility] Last Admin: 07/26/16 10:43 Dose: 17 gm Tamsulosin HCl (Flomax) 0.8 mg PO DAILY [facility] Last Admin: 07/26/16 10:43 Dose: 0.4 mg Tramadol HCl (Ultram) 25 mg PO TID PRN PRN Reason: Pain, moderate (4-7) Last Admin: 07/26/16 08:03 Dose: 25 mg - Labs Labs: 07/24/16 12:03 07/24/16 12:03 Attending/Attestation - Attestation I have personally seen and examined this patient.: Yes I have fully participated in the care of the patient.: Yes I have reviewed all pertinent clinical information, including history, physical exam and plan: Yes Notes (Text): Patient seen, examined, and case discussed with day-time resident. Patient seen this morning. Patient reporting normal bowel movements today. Patient started on Colace and Magnesium Oxide discontinue. Magnesium level ordered Patient to continue physical therapy. Patient is homeless and unable to use rolling walker at the the senior living. Assessment/Plan 1) Fracture of tibia, proximal, right, closed; pain management and physical therapy Continue physical therapy; goal is for use of cane per ortho. Cane present bedside Patient is progressively weight bearing. No ortho intervention needed at this time. Continue to try to get a facility to accept patient with ambulatory cane. Tylenol 650 mg PO Q6 PRN mild pain Tramadol 25mg TID PRN. Patient instructed to ask for pain when necessary. Daily physical therapy L knee x-ray: severe osteopenia. Sclerotic changes about the posterior proximal tibia may relate to a sclerotic healing response of a prior stress fracture here. no tibial plateau depressed fracture. The sclerosis is perceived on the prior 04/21 study; no interval pathology appreciated between 2 exams. If symptoms worsen consider MRI. 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 imaging every [address] scan in 03/2016, should be monitored in September, 6) Sacral decubitus- resolved Out of bed into chair daily Recommendations for silvadene creme to affected buttocks area 7) History of Urinary Tract Infection Continue to monitor Most recent 06/22 Currently asymptomatic 8) Seborrheic Dermatitis Continue Ketoconazole 2% to affected areas of face BID and Ketoconazole 2% Shampoo to hair twice weekly Cont to monitor progression 9) Soft Stools Patient is off Magnesium oxide Patient is on stool softeners 10) Prophylactic Measure Labs weekly on Sunday Lovenox 40mg SC daily Pepcid 20mg PO BID Patient is homeless. Used to stay with friend, but no longer welcome there. Goal is to walk with cane so he can go to a senior living (will not qualify with a walker) Pt pending transfer, awaiting placement Disposition * Patient will need to be ambulatory with cane to be permitted to homeless senior living. * Aggressive Physical therapy at this time <Magnus Mcgovern - Last Filed: 08/01/16 00:00> Subjective - Date & Time of Evaluation Date of Evaluation: 07/27/16 Time of Evaluation: 07:35 - Subjective Subjective: Pt seen and examined. Pt reports that he has right hip pain that is chronic. Pt denies fever, chills, chest pain, shortness of breath, nausea, and vomiting. Objective - Vital Signs/Intake and Output Vital Signs (last 24 hours): Temp Pulse Resp BP Pulse Ox 98.3 F 87 20 100/63 97 07/26/16 17:00 07/26/16 17:00 07/26/16 17:00 07/26/16 17:00 07/26/16 17:00 - Medications Medications: Current Medications Acetaminophen (Tylenol 325mg Tab) 650 mg PO Q6 PRN PRN Reason: Pain, Mild (1-3) Last Admin: 07/24/16 13:49 Dose: 650 mg Docusate Sodium (Colace) 100 mg PO BID [facility] Last Admin: 07/26/16 17:26 Dose: 100 mg Enoxaparin Sodium (Lovenox) 40 mg SC DAILY [facility] Last Admin: 07/26/16 10:45 Dose: 40 mg Famotidine (Pepcid) 20 mg PO BID [facility] Last Admin: 07/26/16 17:35 Dose: 20 mg Lactic Acid (Lac-Hydrin 12% Lotion (225 G)) 0 gm EXT Q12H [facility] Last Admin: 07/26/16 13:50 Dose: 1 appl Lidocaine (Lidoderm) 1 ea TD DAILY [facility] Last Admin: 07/26/16 10:45 Dose: 1 ea Polyethylene Glycol (Miralax) 17 gm PO HS [facility] Last Admin: 07/26/16 10:43 Dose: 17 gm Tamsulosin HCl (Flomax) 0.8 mg PO DAILY [facility] Last Admin: 07/26/16 10:43 Dose: 0.4 mg Tramadol HCl (Ultram) 25 mg PO TID PRN PRN Reason: Pain, moderate (4-7) Last Admin: 07/26/16 08:03 Dose: 25 mg - Labs Labs: 07/24/16 12:03 07/24/16 12:03 - Constitutional Appears: No Acute Distress - Head Exam Head Exam: ATRAUMATIC, NORMOCEPHALIC - Eye Exam Eye Exam: EOMI, PERRL - ENT Exam ENT Exam: Mucous Membranes Moist - Neck Exam Neck Exam: Full ROM - Respiratory Exam Respiratory Exam: Clear to Ausculation Bilateral. absent: Rhonchi, Wheezes, Respiratory Distress - Cardiovascular Exam Cardiovascular Exam: +S1, +S2. absent: Gallop, Rubs - GI/Abdominal Exam GI & Abdominal Exam: Soft. absent: Tenderness - Extremities Exam Additional comments: Venous stasis improving - Neurological Exam Neurological Exam: Alert, Awake, Oriented x3 - Psychiatric Exam Psychiatric exam: Normal Affect, Normal Mood - Skin Skin Exam: Normal Color, Warm Assessment and Plan - Assessment and Plan (Free Text) Assessment: Fracture of tibia, proximal, right, closed; pain management and physical therapy Continue physical therapy; goal is for use of cane per ortho. Cane present bedside Patient is progressively weight bearing. No ortho intervention needed at this time. Continue to try to get a facility to accept patient with ambulatory cane. Tylenol 650 mg PO Q6 PRN mild pain Tramadol 25mg TID PRN. Patient instructed to ask for pain when necessary. Daily physical therapy L knee x-ray: severe osteopenia. Sclerotic changes about the posterior proximal tibia may relate to a sclerotic healing response of a prior stress fracture here. no tibial plateau depressed fracture. The sclerosis is perceived on the prior 10 study; no interval pathology appreciated between 2 exams. If symptoms worsen consider MRI. 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 imaging every [address] scan in 03/2016, should be monitored in September, Sacral decubitus- resolved Out of bed into chair daily Recommendations for silvadene creme to affected buttocks area History of Urinary Tract Infection Continue to monitor Most recent 06/22 Currently asymptomatic Seborrheic Dermatitis Continue Ketoconazole 2% to affected areas of face BID and Ketoconazole 2% Shampoo to hair twice weekly Cont to monitor progression Soft Stools f/u stool cultures as needed + leukocytes in stool c.diff. - negative hold miralax for now Prophylactic Measure Labs weekly on Sunday Lovenox 40mg SC daily Pepcid 20mg PO BID Patient is homeless. Used to stay with friend, but no longer welcome there. Goal is to walk with cane so he can go to a senior living (will not qualify with a walker) Pt pending transfer, awaiting placement
[2016-07-27] MEDS: Ammonium Lactate 12% Lotion (225 g) EXT SCH (22:36)
[2016-07-28] MEDS: Tramadol 25 mg PO PRN ×3 (05:45→22:13)
[2016-07-28] MEDS: Enoxaparin 40 mg Syringe SC SCH (10:44)
[2016-07-28] MEDS: Lidocaine 5% Patch TD SCH (10:44)
[2016-07-28] MEDS: Ammonium Lactate 12% Lotion (225 g) EXT SCH ×2 (12:28→23:09)
--- NOTE | 2016-07-28 17:55 | CP.PCM.PN ---
<FroilanMagnus - Last Filed: 07/29/16 00:37> Subjective - Date & Time of Evaluation Date of Evaluation: 07/28/16 Time of Evaluation: 10:08 - Subjective Subjective: Pt seen and examined. Pt reports that he has difficulty ambulating and right hip pain. Pt denies fever, chills, chest pain, shortness of breath, nausea, and vomiting. Objective - Vital Signs/Intake and Output Vital Signs (last 24 hours): Temp Pulse Resp BP Pulse Ox 97.5 F L 72 20 111/70 97 07/28/16 07:00 07/28/16 07:00 07/28/16 07:00 07/28/16 07:00 07/28/16 07:00 Intake and Output: 07/28/16 07/28/16 06:59 18:59 Intake Total 660 600 Output Total 1000 Balance -340 600 - Medications Medications: Current Medications Acetaminophen (Tylenol 325mg Tab) 650 mg PO Q6 PRN PRN Reason: Pain, Mild (1-3) Last Admin: 07/24/16 13:49 Dose: 650 mg Docusate Sodium (Colace) 100 mg PO BID [facility] Last Admin: 07/28/16 17:26 Dose: Not Given Enoxaparin Sodium (Lovenox) 40 mg SC DAILY [facility] Last Admin: 07/28/16 10:44 Dose: 40 mg Famotidine (Pepcid) 20 mg PO BID [facility] Last Admin: 07/28/16 17:24 Dose: 20 mg Lactic Acid (Lac-Hydrin 12% Lotion (225 G)) 0 gm EXT Q12H [facility] Last Admin: 07/28/16 12:28 Dose: 1 appl Lidocaine (Lidoderm) 1 ea TD DAILY [facility] Last Admin: 07/28/16 10:44 Dose: 1 ea Polyethylene Glycol (Miralax) 17 gm PO HS [facility] Last Admin: 07/26/16 10:43 Dose: 17 gm Tamsulosin HCl (Flomax) 0.8 mg PO DAILY [facility] Last Admin: 07/28/16 10:45 Dose: 0.8 mg Tramadol HCl (Ultram) 25 mg PO TID PRN PRN Reason: Pain, moderate (4-7) Last Admin: 07/28/16 16:31 Dose: 25 mg - Labs Labs: 07/24/16 12:03 07/24/16 12:03 - Constitutional Appears: No Acute Distress - Head Exam Head Exam: ATRAUMATIC, NORMOCEPHALIC - Eye Exam Eye Exam: EOMI, PERRL - ENT Exam ENT Exam: Mucous Membranes Moist. absent: Mucous Membranes Dry - Respiratory Exam Respiratory Exam: Clear to Ausculation Bilateral. absent: Rales, Rhonchi, Wheezes - Cardiovascular Exam Cardiovascular Exam: +S1, +S2. absent: Gallop, Rubs - GI/Abdominal Exam GI & Abdominal Exam: Soft. absent: Distended, Tenderness - Extremities Exam Extremities Exam: absent: Pedal Edema Additional comments: b/l chronic venous stasis - Neurological Exam Neurological Exam: Alert, Awake, Oriented x3 - Psychiatric Exam Psychiatric exam: Normal Affect, Normal Mood - Skin Skin Exam: Warm Additional comments: b/l lower extremity venous stasis Assessment and Plan - Assessment and Plan (Free Text) Assessment: Assessment: Lac-hydrin prn for venous stasis. Salt tabs discontinued, hyponatremia resolved. B12 injection. Fracture of tibia, proximal, right, closed; pain management and physical therapy Continue physical therapy; goal is for use of cane per ortho. Cane present bedside Patient is progressively weight bearing. No ortho intervention needed at this time. Continue to try to get a facility to accept patient with ambulatory cane. Tylenol 650 mg PO Q6 PRN mild pain Tramadol 25mg TID PRN. Patient instructed to ask for pain when necessary. Daily physical therapy L knee x-ray: severe osteopenia. Sclerotic changes about the posterior proximal tibia may relate to a sclerotic healing response of a prior stress fracture here. no tibial plateau depressed fracture. The sclerosis is perceived on the prior 04/21 study; no interval pathology appreciated between 2 exams. If symptoms worsen consider MRI. 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 imaging every [address] scan in 03/2016, should be monitored in September, Sacral decubitus- resolved Out of bed into chair daily Recommendations for silvadene creme to affected buttocks area History of Urinary Tract Infection Continue to monitor Most recent 06/22 Currently asymptomatic Seborrheic Dermatitis Continue Ketoconazole 2% to affected areas of face BID and Ketoconazole 2% Shampoo to hair twice weekly Cont to monitor progression Soft Stools f/u stool cultures as needed + leukocytes in stool c.diff. - negative hold miralax for now Prophylactic Measure Labs weekly on Sunday Lovenox 40mg SC daily Pepcid 20mg PO BID Patient is homeless. Used to stay with friend, but no longer welcome there. Goal is to walk with cane so he can go to a [facility] (will not qualify with a walker) Pt pending transfer, awaiting placement <Parker Cantu - Last Filed: 08/23/16 14:17> Objective - Vital Signs/Intake and Output Vital Signs (last 24 hours): Temp Pulse Resp BP Pulse Ox 98.5 F 82 20 109/69 97 08/23/16 08:00 08/23/16 08:00 08/23/16 08:00 08/23/16 08:00 08/23/16 08:00 Intake and Output: 08/23/16 08/23/16 06:59 18:59 Intake Total 810 400 Balance 810 400 - Medications Medications: Current Medications Acetaminophen (Tylenol 325mg Tab) 650 mg PO Q6 PRN PRN Reason: Pain, Mild (1-3) Last Admin: 08/23/16 09:12 Dose: 650 mg Bisacodyl (Dulcolax) 5 mg PO Q12 PRN PRN Reason: Constipation Last Admin: 08/18/16 14:47 Dose: 5 mg Enoxaparin Sodium (Lovenox) 40 mg SC DAILY [facility] Last Admin: 08/23/16 09:12 Dose: 40 mg Famotidine (Pepcid) 20 mg PO BID [facility] Last Admin: 08/23/16 09:12 Dose: 20 mg Lidocaine (Lidoderm) 1 ea TD DAILY [facility] Last Admin: 08/23/16 09:13 Dose: 1 ea Polyethylene Glycol (Miralax) 17 gm PO DAILY [facility] Last Admin: 08/21/16 09:12 Dose: Not Given Simethicone (Mylicon Chew Tab) 80 mg PO QID PRN PRN Reason: GI distress Last Admin: 08/22/16 09:42 Dose: 80 mg Tamsulosin HCl (Flomax) 0.8 mg PO DAILY [facility] Last Admin: 08/23/16 09:11 Dose: 0.8 mg Tramadol HCl (Ultram) 50 mg PO TID PRN PRN Reason: Pain, moderate (4-7) Last Admin: 08/23/16 09:11 Dose: 50 mg - Labs Labs: 08/21/16 11:16 08/21/16 11:16 Attending/Attestation - Attestation I have personally seen and examined this patient.: Yes I have fully participated in the care of the patient.: Yes I have reviewed all pertinent clinical information, including history, physical exam and plan: Yes Notes (Text): Patient Seen and examined with the resident. Agree with the resident's evaluation, assessment and plan. Fracture of tibia, proximal, right, closed; pain management and physical therapy Continue physical therapy; goal is for use of cane per ortho. Cane present bedside Gait Instability; will continue with PT/OT 8 weeks of immobilization and protected WB as per ortho BPH Flomax 0.8 mg PO daily
--- NOTE | 2016-07-29 07:46 | CP.PCM.PN ---
<Sanchez Villatoro - Last Filed: 07/29/16 07:42> Subjective - Date & Time of Evaluation Date of Evaluation: 07/29/16 Time of Evaluation: 06:30 - Subjective Subjective: Pt seen and examined at bedside. continues to have some difficulty ambulating. He denies any fever, chills, nausea, vomiting, or SOB. Objective - Vital Signs/Intake and Output Vital Signs (last 24 hours): Temp Pulse Resp BP Pulse Ox 97.8 F 75 20 119/70 98 07/29/16 01:16 07/29/16 01:16 07/29/16 01:16 07/29/16 01:16 07/29/16 01:16 Intake and Output: 07/29/16 07/29/16 06:59 18:59 Intake Total 500 Output Total 500 Balance 500 -500 - Medications Medications: Current Medications Acetaminophen (Tylenol 325mg Tab) 650 mg PO Q6 PRN PRN Reason: Pain, Mild (1-3) Last Admin: 07/24/16 13:49 Dose: 650 mg Enoxaparin Sodium (Lovenox) 40 mg SC DAILY [facility] Last Admin: 07/28/16 10:44 Dose: 40 mg Lactic Acid (Lac-Hydrin 12% Lotion (225 G)) 0 gm EXT Q12H [facility] Last Admin: 07/28/16 23:09 Dose: 1 appl Lidocaine (Lidoderm) 1 ea TD DAILY [facility] Last Admin: 07/28/16 10:44 Dose: 1 ea Tamsulosin HCl (Flomax) 0.8 mg PO DAILY [facility] Last Admin: 07/28/16 10:45 Dose: 0.8 mg Tramadol HCl (Ultram) 25 mg PO TID PRN PRN Reason: Pain, moderate (4-7) Last Admin: 07/28/16 22:13 Dose: 25 mg - Labs Labs: 07/24/16 12:03 07/24/16 12:03 - Constitutional Appears: Non-toxic, No Acute Distress - Head Exam Head Exam: ATRAUMATIC, NORMOCEPHALIC - Eye Exam Eye Exam: EOMI, Normal appearance, PERRL Pupil Exam: NORMAL ACCOMODATION, PERRL - ENT Exam ENT Exam: Mucous Membranes Moist, Normal Oropharynx - Respiratory Exam Respiratory Exam: NORMAL BREATHING PATTERN. absent: Rales, Rhonchi, Wheezes - Cardiovascular Exam Cardiovascular Exam: REGULAR RHYTHM, +S1, +S2. absent: Gallop, Rubs, Murmur - GI/Abdominal Exam GI & Abdominal Exam: Soft, Normal Bowel Sounds. absent: Distended, Tenderness - Extremities Exam Extremities Exam: Tenderness (hip). absent: Pedal Edema Additional comments: b/l chronic venous stasis - Neurological Exam Neurological Exam: Alert, Awake, CN II-XII Intact, Oriented x3 - Psychiatric Exam Psychiatric exam: Normal Affect, Normal Mood Assessment and Plan - Assessment and Plan (Free Text) Plan: Fracture of tibia, proximal, right, closed; pain management and physical therapy Continue physical therapy; goal is for use of cane per ortho. Cane present bedside Patient is progressively weight bearing. No ortho intervention needed at this time. Continue to try to get a facility to accept patient with ambulatory cane. Tylenol 650 mg PO Q6 PRN mild pain Tramadol 25mg TID PRN. Patient instructed to ask for pain when necessary. Daily physical therapy L knee x-ray: severe osteopenia. Sclerotic changes about the posterior proximal tibia may relate to a sclerotic healing response of a prior stress fracture here. no tibial plateau depressed fracture. The sclerosis is perceived on the prior 04/21 study; no interval pathology appreciated between 2 exams. If symptoms worsen consider MRI. 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 imaging every [address] scan in 03/2016, should be monitored in September, Sacral decubitus- resolved Out of bed into chair daily Recommendations for silvadene creme to affected buttocks area History of Urinary Tract Infection Continue to monitor Most recent 06/22 Currently asymptomatic Seborrheic Dermatitis Continue Ketoconazole 2% to affected areas of face BID and Ketoconazole 2% Shampoo to hair twice weekly Cont to monitor progression Soft Stools f/u stool cultures as needed + leukocytes in stool c.diff. - negative hold miralax for now Prophylactic Measure Labs weekly on Sunday Lovenox 40mg SC daily Pepcid 20mg PO BID Patient is homeless. Used to stay with friend, but no longer welcome there. Goal is to walk with cane [facility] to a [facility] (will not qualify with a walker) Pt pending transfer, awaiting placement <Parker Cantu - Last Filed: 08/23/16 14:15> Objective - Vital Signs/Intake and Output Vital Signs (last 24 hours): Temp Pulse Resp BP Pulse Ox 98.5 F 82 20 109/69 97 08/23/16 08:00 08/23/16 08:00 08/23/16 08:00 08/23/16 08:00 08/23/16 08:00 Intake and Output: 08/23/16 08/23/16 06:59 18:59 Intake Total 810 400 Balance 810 400 - Medications Medications: Current Medications Acetaminophen (Tylenol 325mg Tab) 650 mg PO Q6 PRN PRN Reason: Pain, Mild (1-3) Last Admin: 08/23/16 09:12 Dose: 650 mg Bisacodyl (Dulcolax) 5 mg PO Q12 PRN PRN Reason: Constipation Last Admin: 08/18/16 14:47 Dose: 5 mg Enoxaparin Sodium (Lovenox) 40 mg SC DAILY [facility] Last Admin: 08/23/16 09:12 Dose: 40 mg Famotidine (Pepcid) 20 mg PO BID [facility] Last Admin: 08/23/16 09:12 Dose: 20 mg Lidocaine (Lidoderm) 1 ea TD DAILY [facility] Last Admin: 08/23/16 09:13 Dose: 1 ea Polyethylene Glycol (Miralax) 17 gm PO DAILY [facility] Last Admin: 08/21/16 09:12 Dose: Not Given Simethicone (Mylicon Chew Tab) 80 mg PO QID PRN PRN Reason: GI distress Last Admin: 08/22/16 09:42 Dose: 80 mg Tamsulosin HCl (Flomax) 0.8 mg PO DAILY [facility] Last Admin: 08/23/16 09:11 Dose: 0.8 mg Tramadol HCl (Ultram) 50 mg PO TID PRN PRN Reason: Pain, moderate (4-7) Last Admin: 08/23/16 09:11 Dose: 50 mg - Labs Labs: 08/21/16 11:16 08/21/16 11:16 Attending/Attestation - Attestation I have personally seen and examined this patient.: Yes I have fully participated in the care of the patient.: Yes I have reviewed all pertinent clinical information, including history, physical exam and plan: Yes Notes (Text): Patient Seen and examined with the resident. Agree with the resident's evaluation, assessment and plan. Fracture of tibia, proximal, right, closed; pain management and physical therapy Continue physical therapy; goal is for use of cane per ortho. Cane present bedside Gait Instability; will continue with PT/OT 8 weeks of immobilization and protected WB as per ortho BPH Flomax 0.8 mg PO daily
[2016-07-29] MEDS: Lidocaine 5% Patch TD SCH (09:38)
[2016-07-29] MEDS: Enoxaparin 40 mg Syringe SC SCH (09:39)
[2016-07-29] MEDS: Tramadol 25 mg PO PRN (09:39)
[2016-07-29] MEDS: Ammonium Lactate 12% Lotion (225 g) EXT SCH (11:35)
[2016-07-30] MEDS: Ammonium Lactate 12% Lotion (225 g) EXT SCH ×3 (01:24→22:44)
--- NOTE | 2016-07-30 04:12 | CP.PCM.PN ---
<Sanchez Villatoro - Last Filed: 07/30/16 06:50> Subjective - Date & Time of Evaluation Date of Evaluation: 07/30/16 Time of Evaluation: 06:30 - Subjective Subjective: Hospitalist Note-Dr. Cantu's service Patient seen and evaluated at bedside. He notes he continues to have some leg tenderness. He denies any cough, fever, chills, nausea, vomiting, or SOB. Per nursing, the patient wants his toe nails clipped but no adverse events over night. Objective - Vital Signs/Intake and Output Vital Signs (last 24 hours): Temp Pulse Resp BP Pulse Ox 97.9 F 78 20 118/78 98 07/29/16 23:56 07/29/16 23:56 07/29/16 23:56 07/29/16 23:56 07/29/16 23:56 Intake and Output: 07/29/16 07/30/16 18:59 06:59 Intake Total 500 600 Output Total 500 Balance 0 600 - Medications Medications: Current Medications Acetaminophen (Tylenol 325mg Tab) 650 mg PO Q6 PRN PRN Reason: Pain, Mild (1-3) Last Admin: 07/24/16 13:49 Dose: 650 mg Enoxaparin Sodium (Lovenox) 40 mg SC DAILY [facility] Last Admin: 07/29/16 09:39 Dose: 40 mg Lactic Acid (Lac-Hydrin 12% Lotion (225 G)) 0 gm EXT Q12H [facility] Last Admin: 07/30/16 01:24 Dose: Not Given Lidocaine (Lidoderm) 1 ea TD DAILY [facility] Last Admin: 07/29/16 09:38 Dose: 1 ea Tamsulosin HCl (Flomax) 0.8 mg PO DAILY [facility] Last Admin: 07/29/16 09:41 Dose: 0.8 mg Tramadol HCl (Ultram) 25 mg PO TID PRN PRN Reason: Pain, moderate (4-7) Last Admin: 07/29/16 09:39 Dose: 25 mg - Labs Labs: 07/24/16 12:03 07/24/16 12:03 - Constitutional Appears: Non-toxic, No Acute Distress - Head Exam Head Exam: ATRAUMATIC, NORMOCEPHALIC - Eye Exam Eye Exam: EOMI, Normal appearance, PERRL Pupil Exam: NORMAL ACCOMODATION, PERRL - ENT Exam ENT Exam: Mucous Membranes Moist. absent: Normal Oropharynx (poor dentition) - Neck Exam Neck Exam: Normal Inspection - Respiratory Exam Respiratory Exam: Clear to Ausculation Bilateral, NORMAL BREATHING PATTERN. absent: Rales, Rhonchi, Wheezes - Cardiovascular Exam Cardiovascular Exam: REGULAR RHYTHM, +S1, +S2. absent: Gallop, Rubs, Murmur - GI/Abdominal Exam GI & Abdominal Exam: Soft, Normal Bowel Sounds. absent: Tenderness - Extremities Exam Extremities Exam: Tenderness (hip). absent: Pedal Edema Additional comments: b/l chronic venous stasis - Back Exam Back Exam: NORMAL INSPECTION. absent: rash noted, tenderness - Neurological Exam Neurological Exam: Alert, Awake, CN II-XII Intact, Oriented x3 - Psychiatric Exam Psychiatric exam: Normal Affect, Normal Mood - Skin Skin Exam: Intact, Normal Color, Warm Assessment and Plan - Assessment and Plan (Free Text) Plan: Fracture of tibia, proximal, right, closed; pain management and physical therapy Continue physical therapy; goal is for use of cane per ortho. Cane present bedside Patient is progressively weight bearing. No ortho intervention needed at this time. Continue to try to get a facility to accept patient with ambulatory cane. Tylenol 650 mg PO Q6 PRN mild pain Tramadol 25mg TID PRN. Patient instructed to ask for pain when necessary. Daily physical therapy L knee x-ray: severe osteopenia. Sclerotic changes about the posterior proximal tibia may relate to a sclerotic healing response of a prior stress fracture here. no tibial plateau depressed fracture. The sclerosis is perceived on the prior 04/21 study; no interval pathology appreciated between 2 exams. If symptoms worsen consider MRI. 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 imaging every [address] scan in 03/2016, should be monitored in September, Sacral decubitus- resolved Out of bed into chair daily Recommendations for silvadene creme to affected buttocks area History of Urinary Tract Infection Continue to monitor Most recent 06/22 Currently asymptomatic Seborrheic Dermatitis Continue Ketoconazole 2% to affected areas of face BID and Ketoconazole 2% Shampoo to hair twice weekly Cont to monitor progression Soft Stools f/u stool cultures as needed + leukocytes in stool c.diff. - negative hold miralax for now Prophylactic Measure Labs weekly on Sunday Lovenox 40mg SC daily Pepcid 20mg PO BID Patient is homeless. Used to stay with friend, but no longer welcome there. Goal is to walk with cane so he can go to a [facility] (will not qualify with a walker) Pt pending transfer, awaiting placement <Parker Cantu - Last Filed: 08/23/16 14:16> Objective - Vital Signs/Intake and Output Vital Signs (last 24 hours): Temp Pulse Resp BP Pulse Ox 98.5 F 82 20 109/69 97 08/23/16 08:00 08/23/16 08:00 08/23/16 08:00 08/23/16 08:00 08/23/16 08:00 Intake and Output: 08/23/16 08/23/16 06:59 18:59 Intake Total 810 400 Balance 810 400 - Medications Medications: Current Medications Acetaminophen (Tylenol 325mg Tab) 650 mg PO Q6 PRN PRN Reason: Pain, Mild (1-3) Last Admin: 08/23/16 09:12 Dose: 650 mg Bisacodyl (Dulcolax) 5 mg PO Q12 PRN PRN Reason: Constipation Last Admin: 08/18/16 14:47 Dose: 5 mg Enoxaparin Sodium (Lovenox) 40 mg SC DAILY [facility] Last Admin: 08/23/16 09:12 Dose: 40 mg Famotidine (Pepcid) 20 mg PO BID [facility] Last Admin: 08/23/16 09:12 Dose: 20 mg Lidocaine (Lidoderm) 1 ea TD DAILY [facility] Last Admin: 08/23/16 09:13 Dose: 1 ea Polyethylene Glycol (Miralax) 17 gm PO DAILY [facility] Last Admin: 08/21/16 09:12 Dose: Not Given Simethicone (Mylicon Chew Tab) 80 mg PO QID PRN PRN Reason: GI distress Last Admin: 08/22/16 09:42 Dose: 80 mg Tamsulosin HCl (Flomax) 0.8 mg PO DAILY [facility] Last Admin: 08/23/16 09:11 Dose: 0.8 mg Tramadol HCl (Ultram) 50 mg PO TID PRN PRN Reason: Pain, moderate (4-7) Last Admin: 08/23/16 09:11 Dose: 50 mg - Labs Labs: 08/21/16 11:16 08/21/16 11:16 Attending/Attestation - Attestation I have personally seen and examined this patient.: Yes I have fully participated in the care of the patient.: Yes I have reviewed all pertinent clinical information, including history, physical exam and plan: Yes Notes (Text): Patient Seen and examined with the resident. Agree with the resident's evaluation, assessment and plan. Fracture of tibia, proximal, right, closed; pain management and physical therapy Continue physical therapy; goal is for use of cane per ortho. Cane present bedside Gait Instability; will continue with PT/OT 8 weeks of immobilization and protected WB as per ortho BPH Flomax 0.8 mg PO daily
[2016-07-30] MEDS: Enoxaparin 40 mg Syringe SC SCH (10:21)
[2016-07-30] MEDS: Tramadol 25 mg PO PRN (10:22)
[2016-07-30] MEDS: Lidocaine 5% Patch TD SCH (10:24)
--- NOTE | 2016-07-31 09:40 | RAD ---
PROCEDURE: Right Hip Radiographs. HISTORY: new pain COMPARISON: 06/06/2016 FINDINGS: BONES: No evidence of acute fracture. JOINTS: Right hip arthroplasty. 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 SOFT TISSUES: Normal. OTHER FINDINGS: None. IMPRESSION: No acute fracture. 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
[2016-07-31] MEDS: Lidocaine 5% Patch TD SCH (10:00)
[2016-07-31 11:44] LABS: BASO % 0.4 % (0.0-2.0); EOS # 0.1 K/uL (0.0-0.7); EOS % 1.3 % (0.0-4.0); HEMOGLOBIN 12.5 g/dL (12.0-18.0); MEAN CELL VOLUME 95.6 fL (80.0-94.0); MEAN CORPUSCULAR HEMOGLOBIN 32.1 pg (27.0-31.0); MEAN CORPUSCULAR HGB CONC 33.6 g/dL (33.0-37.0); MONO # 0.5 K/uL (0.0-0.8); MONO % 9.2 % (0.0-10.0); NEUT # 3.8 K/uL (1.8-7.0); NEUT % 70.1 % (50.0-75.0); RBC 3.91 Mil/uL (4.40-5.90); RED CELL DISTRIBUTION WIDTH 13.6 % (11.5-14.5); WHITE BLOOD COUNT 5.5 K/uL (4.8-10.8)
[2016-07-31 12:00] LABS: ALB/GLOB RATIO 1.1 (1.0-2.1); ALT/SGPT 7 U/L (21-72); AST/SGOT 19 U/L (17-59); BLOOD UREA NITROGEN 10 mg/dL (9-20); GFR AFRICAN-AMERICAN > 60; GFR NON-AFRICAN AMERICAN > 60
[2016-07-31 12:01] LABS: CALCIUM 8.8 mg/dl (8.6-10.4)
[2016-07-31] MEDS: Ammonium Lactate 12% Lotion (225 g) EXT SCH ×3 (12:24→23:35)
--- NOTE | 2016-07-31 12:48 | CP.PCM.PN ---
<Varsha Esquivel - Last Filed: 07/31/16 12:46> Subjective - Date & Time of Evaluation Date of Evaluation: 07/31/16 Time of Evaluation: 09:00 - Subjective Subjective: Medicine Note for Dr. Wiggins, Patient was seen and examined at bedside. Patient reports hip pain and right sided leg pain. Patient asked for his fingernails to be cut, requested nursing to assist patient. Denied fever, chills, headache, chest pain, abdominal pain, or urinary symptoms. Objective - Vital Signs/Intake and Output Vital Signs (last 24 hours): Temp Pulse Resp BP Pulse Ox 97.8 F 84 20 119/62 97 07/31/16 08:43 07/31/16 08:43 07/31/16 08:43 07/31/16 08:43 07/31/16 08:43 Intake and Output: 07/31/16 07/31/16 06:59 18:59 Intake Total 500 Output Total 850 Balance -350 - Medications Medications: Current Medications Acetaminophen (Tylenol 325mg Tab) 650 mg PO Q6 PRN PRN Reason: Pain, Mild (1-3) Last Admin: 07/24/16 13:49 Dose: 650 mg Enoxaparin Sodium (Lovenox) 40 mg SC DAILY [facility] Last Admin: 07/30/16 10:21 Dose: 40 mg Lactic Acid (Lac-Hydrin 12% Lotion (225 G)) 0 gm EXT Q12H [facility] Last Admin: 07/31/16 12:24 Dose: 1 appl Lidocaine (Lidoderm) 1 ea TD DAILY [facility] Last Admin: 07/31/16 10:00 Dose: 1 ea Tamsulosin HCl (Flomax) 0.8 mg PO DAILY [facility] Last Admin: 07/31/16 10:00 Dose: 0.8 mg Tramadol HCl (Ultram) 25 mg PO TID PRN PRN Reason: Pain, moderate (4-7) Last Admin: 07/30/16 10:22 Dose: 25 mg - Labs Labs: 07/31/16 11:38 07/31/16 11:38 - Constitutional Appears: No Acute Distress - Head Exam Head Exam: NORMAL INSPECTION, NORMOCEPHALIC - Respiratory Exam Respiratory Exam: Clear to Ausculation Bilateral, NORMAL BREATHING PATTERN. absent: Wheezes - Cardiovascular Exam Cardiovascular Exam: REGULAR RHYTHM, RRR, +S1, +S2 - GI/Abdominal Exam GI & Abdominal Exam: Soft, Normal Bowel Sounds. absent: Distended, Tenderness - Extremities Exam Extremities Exam: Normal Inspection. absent: Pedal Edema, Tenderness - Neurological Exam Neurological Exam: Alert, Awake, Oriented x3 - Skin Skin Exam: Dry, Intact Assessment and Plan - Assessment and Plan (Free Text) Plan: Fracture of tibia, proximal, right, closed; pain management and physical therapy Continue physical therapy; goal is for use of cane per ortho. Cane present bedside Patient is progressively weight bearing. No ortho intervention needed at this time. Continue to try to get a facility to accept patient with ambulatory cane. Tylenol 650 mg PO Q6 PRN mild pain Tramadol 25mg TID PRN. Patient instructed to ask for pain when necessary. Lidoderm Patch Daily physical therapy BL Hip/Pelvis Xray: 07/30 No acute fracture. 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 No change from previous image on 03/28 L knee x-ray: severe osteopenia. Sclerotic changes about the posterior proximal tibia may relate to a sclerotic healing response of a prior stress fracture here. no tibial plateau depressed fracture. The sclerosis is perceived on the prior 04/21 study; no interval pathology appreciated between 2 exams. If symptoms worsen consider MRI. 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 imaging every [address] scan in 03/2016, should be monitored in September, Sacral decubitus- resolved Out of bed into chair daily Recommendations for silvadene creme to affected buttocks area History of Urinary Tract Infection Continue to monitor Most recent 06/22 Currently asymptomatic Seborrheic Dermatitis Continue Ketoconazole 2% to affected areas of face BID and Ketoconazole 2% Shampoo to hair twice weekly Cont to monitor progression Soft Stools f/u stool cultures as needed + leukocytes in stool c.diff. - negative hold miralax for now Prophylactic Measure Labs weekly on Sunday Lovenox 40mg SC daily Pepcid 20mg PO BID Patient is homeless. Used to stay with friend, but no longer welcome there. Goal is to walk with cane so [facility] can go to a [facility] (will not qualify with a walker) Pt pending transfer, awaiting placement DW Sierra Recinos DO, PGY-1 <Jose Wiggins - Last Filed: 07/31/16 14:59> Objective - Vital Signs/Intake and Output Vital Signs (last 24 hours): Temp Pulse Resp BP Pulse Ox 97.8 F 84 20 119/62 97 07/31/16 08:43 07/31/16 08:43 07/31/16 08:43 07/31/16 08:43 07/31/16 08:43 Intake and Output: 07/31/16 07/31/16 06:59 18:59 Intake Total 500 Output Total 850 Balance -350 - Medications Medications: Current Medications Acetaminophen (Tylenol 325mg Tab) 650 mg PO Q6 PRN PRN Reason: Pain, Mild (1-3) Last Admin: 07/24/16 13:49 Dose: 650 mg Enoxaparin Sodium (Lovenox) 40 mg SC DAILY [facility] Last Admin: 07/30/16 10:21 Dose: 40 mg Lactic Acid (Lac-Hydrin 12% Lotion (225 G)) 0 gm EXT Q12H [facility] Last Admin: 07/31/16 12:24 Dose: 1 appl Lidocaine (Lidoderm) 1 ea TD DAILY [facility] Last Admin: 07/31/16 10:00 Dose: 1 ea Tamsulosin HCl (Flomax) 0.8 mg PO DAILY [facility] Last Admin: 07/31/16 10:00 Dose: 0.8 mg Tramadol HCl (Ultram) 25 mg PO TID PRN PRN Reason: Pain, moderate (4-7) Last Admin: 07/30/16 10:22 Dose: 25 mg - Labs Labs: 07/31/16 11:38 07/31/16 11:38 Attending/Attestation - Attestation I have personally seen and examined this patient.: Yes I have fully participated in the care of the patient.: Yes I have reviewed all pertinent clinical information, including history, physical exam and plan: Yes Notes (Text): 07/31/16 14:58 Patient was seen and examined at bedside with the resident Continue current medical management Continue physical therapy. Awaiting placement.
[2016-08-01] MEDS: Tramadol 25 mg PO PRN (00:09)
[2016-08-01] MEDS: Enoxaparin 40 mg Syringe SC SCH (10:33)
[2016-08-01] MEDS: Lidocaine 5% Patch TD SCH (10:33)
[2016-08-01] MEDS: Ammonium Lactate 12% Lotion (225 g) EXT SCH ×2 (11:26→22:19)
--- NOTE | 2016-08-01 11:31 | CP.PCM.PN ---
Subjective - Date & Time of Evaluation Date of Evaluation: 08/01/16 Time of Evaluation: 11:29 - Subjective Subjective: Patient complaining of knee and hip pain. He says the tendinitis pain is a little better with the patch. No new complaints PT notes appreciated. Patient with attempts with cane. Objective - Vital Signs/Intake and Output Vital Signs (last 24 hours): Temp Pulse Resp BP Pulse Ox 98.1 F 74 20 118/70 98 08/01/16 07:58 08/01/16 07:58 08/01/16 07:58 08/01/16 07:58 08/01/16 07:58 Intake and Output: 08/01/16 08/01/16 06:59 18:59 Intake Total 400 Output Total 500 Balance -100 - Medications Medications: Current Medications Enoxaparin Sodium (Lovenox) 40 mg SC DAILY [facility] Last Admin: 08/01/16 10:33 Dose: 40 mg Lactic Acid (Lac-Hydrin 12% Lotion (225 G)) 0 gm EXT Q12H [facility] Last Admin: 08/01/16 11:26 Dose: 1 appl Lidocaine (Lidoderm) 1 ea TD DAILY [facility] Last Admin: 08/01/16 10:33 Dose: 1 ea Tamsulosin HCl (Flomax) 0.8 mg PO DAILY [facility] Last Admin: 08/01/16 11:25 Dose: 0.8 mg Tramadol HCl (Ultram) 50 mg PO TID PRN PRN Reason: Pain, moderate (4-7) Last Admin: 08/01/16 11:23 Dose: 50 mg - Labs Labs: 07/31/16 11:38 07/31/16 11:38 - Constitutional Appears: Well, No Acute Distress - Extremities Exam Additional comments: sensation intact, +DP/ pulse calves soft NT neg homnas - Neurological Exam Neurological Exam: Alert, Awake Additional comments: Improving strength and ROM of right knee. Still sig extensor lag, but strength improving to 4/5 through limited range, able to give a little resistance. 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 Pino, agrees with above Status: Chronic
--- NOTE | 2016-08-01 12:32 | CP.PCM.PN ---
<Varsha Esquivel - Last Filed: 08/01/16 12:29> Subjective - Date & Time of Evaluation Date of Evaluation: 08/01/16 Time of Evaluation: 10:00 - Subjective Subjective: Medicine Note for Dr. Wiggins, Patient was seen and examined at bedside. Patient reports hip pain and right sided leg pain. Patient is able to ambulate with walker, working daily with PT. Denied fever, chills, headache, chest pain, abdominal pain, or urinary symptoms. Objective - Vital Signs/Intake and Output Vital Signs (last 24 hours): Temp Pulse Resp BP Pulse Ox 98.1 F 74 20 118/70 98 08/01/16 07:58 08/01/16 07:58 08/01/16 07:58 08/01/16 07:58 08/01/16 07:58 Intake and Output: 08/01/16 08/01/16 06:59 18:59 Intake Total 400 Output Total 500 Balance -100 - Medications Medications: Current Medications Enoxaparin Sodium (Lovenox) 40 mg SC DAILY [facility] Last Admin: 08/01/16 10:33 Dose: 40 mg Lactic Acid (Lac-Hydrin 12% Lotion (225 G)) 0 gm EXT Q12H [facility] Last Admin: 08/01/16 11:26 Dose: 1 appl Lidocaine (Lidoderm) 1 ea TD DAILY [facility] Last Admin: 08/01/16 10:33 Dose: 1 ea Tamsulosin HCl (Flomax) 0.8 mg PO DAILY [facility] Last Admin: 08/01/16 11:25 Dose: 0.8 mg Tramadol HCl (Ultram) 50 mg PO TID PRN PRN Reason: Pain, moderate (4-7) Last Admin: 08/01/16 11:23 Dose: 50 mg - Labs Labs: 07/31/16 11:38 07/31/16 11:38 - Constitutional Appears: No Acute Distress - Head Exam Head Exam: NORMAL INSPECTION, NORMOCEPHALIC - Respiratory Exam Respiratory Exam: Clear to Ausculation Bilateral, NORMAL BREATHING PATTERN. absent: Decreased Breath Sounds, Rhonchi, Wheezes - Cardiovascular Exam Cardiovascular Exam: REGULAR RHYTHM, RRR, +S1, +S2 - GI/Abdominal Exam GI & Abdominal Exam: Soft, Normal Bowel Sounds. absent: Distended, Tenderness - Extremities Exam Extremities Exam: Normal Inspection. absent: Pedal Edema, Tenderness - Neurological Exam Neurological Exam: Alert, Awake, Oriented x3 - Skin Skin Exam: Dry, Intact, Warm Assessment and Plan - Assessment and Plan (Free Text) Plan: Fracture of tibia, proximal, right, closed; pain management and physical therapy Continue physical therapy; goal is for use of cane per ortho. Cane present bedside Patient is progressively weight bearing. No ortho intervention needed at this time. Continue to try to get a facility to accept patient with ambulatory cane. Tylenol 650 mg PO Q6 PRN mild pain Tramadol 25mg TID PRN. Patient instructed to ask for pain when necessary. Lidoderm Patch Daily physical therapy BL Hip/Pelvis Xray: 07/30 No acute fracture. 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 No change from previous image on 03/28 L knee x-ray: severe osteopenia. Sclerotic changes about the posterior proximal tibia may relate to a sclerotic healing response of a prior stress fracture here. no tibial plateau depressed fracture. The sclerosis is perceived on the prior 04/21 study; no interval pathology appreciated between 2 exams. If symptoms worsen consider MRI. 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 imaging every [address] scan in 03/2016, should be monitored in September, Sacral decubitus- resolved Out of bed into chair daily Recommendations for silvadene creme to affected buttocks area History of Urinary Tract Infection Continue to monitor Most recent 06/22 Currently asymptomatic Seborrheic Dermatitis Continue Ketoconazole 2% to affected areas of face BID and Ketoconazole 2% Shampoo to hair twice weekly Cont to monitor progression Soft Stools f/u stool cultures as needed + leukocytes in stool c.diff. - negative hold miralax for now Prophylactic Measure Labs weekly on Sunday Lovenox 40mg SC daily Pepcid 20mg PO BID Patient is homeless. Used to stay with friend, but no longer welcome there. Goal is to walk with cane so he can go to a [facility] (will not qualify with a walker) Pt pending transfer, awaiting placement DW Dr. Wiggins, Sierra ALVAREZ, PGY-1 <Jose Wiggins - Last Filed: 08/01/16 17:01> Objective - Vital Signs/Intake and Output Vital Signs (last 24 hours): Temp Pulse Resp BP Pulse Ox 98.1 F 72 20 115/73 97 08/01/16 15:09 08/01/16 15:09 08/01/16 15:09 08/01/16 15:09 08/01/16 15:09 Intake and Output: 08/01/16 08/01/16 06:59 18:59 Intake Total 400 300 Output Total 500 Balance -100 300 - Medications Medications: Current Medications Acetaminophen (Tylenol 325mg Tab) 650 mg PO Q6 PRN PRN Reason: Pain, Mild (1-3) Enoxaparin Sodium (Lovenox) 40 mg SC DAILY [facility] Last Admin: 08/01/16 10:33 Dose: 40 mg Lactic Acid (Lac-Hydrin 12% Lotion (225 G)) 0 gm EXT Q12H [facility] Last Admin: 08/01/16 11:26 Dose: 1 appl Lidocaine (Lidoderm) 1 ea TD DAILY [facility] Last Admin: 08/01/16 10:33 Dose: 1 ea Tamsulosin HCl (Flomax) 0.8 mg PO DAILY [facility] Last Admin: 08/01/16 11:25 Dose: 0.8 mg Tramadol HCl (Ultram) 50 mg PO TID PRN PRN Reason: Pain, moderate (4-7) Last Admin: 08/01/16 11:23 Dose: 50 mg - Labs Labs: 07/31/16 11:38 07/31/16 11:38 Attending/Attestation - Attestation I have personally seen and examined this patient.: Yes I have fully participated in the care of the patient.: Yes I have reviewed all pertinent clinical information, including history, physical exam and plan: Yes Notes (Text): 08/01/16 17:01 Patient was seen and examined at bedside with the resident Continue current management Awaiting placement I agree with the above history and physical and assessment/plan but the resident.
[2016-08-02] MEDS: Enoxaparin 40 mg Syringe SC SCH (11:54)
[2016-08-02] MEDS: Lidocaine 5% Patch TD SCH (11:55)
[2016-08-02] MEDS: Ammonium Lactate 12% Lotion (225 g) EXT SCH ×2 (12:02→22:35)
--- NOTE | 2016-08-02 12:20 | CP.PCM.PN ---
<Varsha Esquivel - Last Filed: 08/02/16 12:19> Subjective - Date & Time of Evaluation Date of Evaluation: 08/02/16 Time of Evaluation: 10:00 - Subjective Subjective: Medicine Note for Dr. Wiggins, Patient was seen and examined at bedside. Patient reports hip pain and right sided leg pain. Patient is able to ambulate with walker, working daily with PT. Denied fever, chills, headache, chest pain, abdominal pain, or urinary symptoms. Objective - Vital Signs/Intake and Output Vital Signs (last 24 hours): Temp Pulse Resp BP Pulse Ox 98.5 F 71 20 116/69 97 08/02/16 07:00 08/02/16 07:00 08/02/16 07:00 08/02/16 07:00 08/02/16 07:00 Intake and Output: 08/02/16 08/02/16 06:59 18:59 Intake Total 360 240 Output Total 400 Balance 360 -160 - Medications Medications: Current Medications Acetaminophen (Tylenol 325mg Tab) 650 mg PO Q6 PRN PRN Reason: Pain, Mild (1-3) Enoxaparin Sodium (Lovenox) 40 mg SC DAILY [facility] Last Admin: 08/02/16 11:54 Dose: 40 mg Lactic Acid (Lac-Hydrin 12% Lotion (225 G)) 0 gm EXT Q12H [facility] Last Admin: 08/02/16 12:02 Dose: 1 appl Lidocaine (Lidoderm) 1 ea TD DAILY [facility] Last Admin: 08/02/16 11:55 Dose: 1 ea Tamsulosin HCl (Flomax) 0.8 mg PO DAILY [facility] Last Admin: 08/02/16 11:54 Dose: 0.8 mg Tramadol HCl (Ultram) 50 mg PO TID PRN PRN Reason: Pain, moderate (4-7) Last Admin: 08/02/16 08:55 Dose: 50 mg - Labs Labs: 07/31/16 11:38 07/31/16 11:38 - Constitutional Appears: No Acute Distress - Head Exam Head Exam: NORMAL INSPECTION, NORMOCEPHALIC - Respiratory Exam Respiratory Exam: Clear to Ausculation Bilateral, NORMAL BREATHING PATTERN. absent: Decreased Breath Sounds, Wheezes - Cardiovascular Exam Cardiovascular Exam: REGULAR RHYTHM, RRR, +S1, +S2 - GI/Abdominal Exam GI & Abdominal Exam: Soft, Normal Bowel Sounds. absent: Distended, Tenderness - Extremities Exam Extremities Exam: Normal Inspection. absent: Pedal Edema, Tenderness - Neurological Exam Neurological Exam: Alert, Awake, Oriented x3 - Skin Skin Exam: Dry, Intact, Normal Color, Warm Assessment and Plan - Assessment and Plan (Free Text) Plan: Fracture of tibia, proximal, right, closed; pain management and physical therapy Continue physical therapy; goal is for use of cane per ortho. Cane present bedside Patient is progressively weight bearing. No ortho intervention needed at this time. Continue to try to get a facility to accept patient with ambulatory cane. Tylenol 650 mg PO Q6 PRN mild pain Tramadol 25mg TID PRN. Patient instructed to ask for pain when necessary. Lidoderm Patch Daily physical therapy BL Hip/Pelvis Xray: 07/30 No acute fracture. 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 No change from previous image on 03/28 L knee x-ray: severe osteopenia. Sclerotic changes about the posterior proximal tibia may relate to a sclerotic healing response of a prior stress fracture here. no tibial plateau depressed fracture. The sclerosis is perceived on the prior 04/21 study; no interval pathology appreciated between 2 exams. If symptoms worsen consider MRI. 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 imaging every [address] scan in 03/2016, should be monitored in September, Sacral decubitus- resolved Out of bed into chair daily Recommendations for silvadene creme to affected buttocks area History of Urinary Tract Infection Continue to monitor Most recent 06/22 Currently asymptomatic Seborrheic Dermatitis Continue Ketoconazole 2% to affected areas of face BID and Ketoconazole 2% Shampoo to hair twice weekly Cont to monitor progression Soft Stools f/u stool cultures as needed + leukocytes in stool c.diff. - negative hold miralax for now Prophylactic Measure Labs weekly on Sunday Lovenox 40mg SC daily Pepcid 20mg PO BID Patient is homeless. Used to stay with friend, but no longer welcome there. Goal is to walk with cane so he can go to a detention (will not qualify with a walker) Pt pending transfer, awaiting placement [facility] Sierra Recinos DO, PGY-1 <Jose Wiggins - Last Filed: 08/02/16 14:51> Objective - Vital Signs/Intake and Output Vital Signs (last 24 hours): Temp Pulse Resp BP Pulse Ox 98.5 F 71 20 116/69 97 08/02/16 07:00 08/02/16 07:00 08/02/16 07:00 08/02/16 07:00 08/02/16 07:00 Intake and Output: 08/02/16 08/02/16 06:59 18:59 Intake Total 360 240 Output Total 400 Balance 360 -160 - Medications Medications: Current Medications Acetaminophen (Tylenol 325mg Tab) 650 mg PO Q6 PRN PRN Reason: Pain, Mild (1-3) Enoxaparin Sodium (Lovenox) 40 mg SC DAILY [facility] Last Admin: 08/02/16 11:54 Dose: 40 mg Lactic Acid (Lac-Hydrin 12% Lotion (225 G)) 0 gm EXT Q12H [facility] Last Admin: 08/02/16 12:02 Dose: 1 appl Lidocaine (Lidoderm) 1 ea TD DAILY [facility] Last Admin: 08/02/16 11:55 Dose: 1 ea Tamsulosin HCl (Flomax) 0.8 mg PO DAILY [facility] Last Admin: 08/02/16 11:54 Dose: 0.8 mg Tramadol HCl (Ultram) 50 mg PO TID PRN PRN Reason: Pain, moderate (4-7) Last Admin: 08/02/16 08:55 Dose: 50 mg - Labs Labs: 07/31/16 11:38 07/31/16 11:38 Attending/Attestation - Attestation I have personally seen and examined this patient.: Yes I have fully participated in the care of the patient.: Yes I have reviewed all pertinent clinical information, including history, physical exam and plan: Yes Notes (Text): 08/02/16 14:51 Patient was seen and examined at bedside with the resident Continue current medical management Continue physical therapy Awaiting placement. I discussed the plan of care with the resident and agree with the above history and physical and assessment/plan by the resident.
--- NOTE | 2016-08-03 09:10 | CP.PCM.PN ---
<Kimberly Ken - Last Filed: 08/03/16 09:43> Subjective - Date & Time of Evaluation Date of Evaluation: 08/03/16 Time of Evaluation: 07:00 - Subjective Subjective: Medicine Note for Dr. Wiggins, Patient was seen and examined at bedside. Patient reports hip pain and right sided leg pain. Patient is able to ambulate with walker, working daily with PT. Denied fever, chills, headache, chest pain, abdominal pain, or urinary symptoms. No clinical changes. Objective - Vital Signs/Intake and Output Vital Signs (last 24 hours): Temp Pulse Resp BP Pulse Ox 97.9 F 77 20 121/75 97 08/03/16 07:56 08/03/16 07:56 08/03/16 07:56 08/03/16 07:56 08/03/16 07:56 Intake and Output: 08/03/16 08/03/16 06:59 18:59 Intake Total 500 Output Total 600 Balance -100 - Medications Medications: Current Medications Acetaminophen (Tylenol 325mg Tab) 650 mg PO Q6 PRN PRN Reason: Pain, Mild (1-3) Enoxaparin Sodium (Lovenox) 40 mg SC DAILY [facility] Last Admin: 08/02/16 11:54 Dose: 40 mg Lactic Acid (Lac-Hydrin 12% Lotion (225 G)) 0 gm EXT Q12H [facility] Last Admin: 08/02/16 22:35 Dose: 1 appl Lidocaine (Lidoderm) 1 ea TD DAILY [facility] Last Admin: 08/02/16 11:55 Dose: 1 ea Tamsulosin HCl (Flomax) 0.8 mg PO DAILY [facility] Last Admin: 08/02/16 11:54 Dose: 0.8 mg Tramadol HCl (Ultram) 50 mg PO TID PRN PRN Reason: Pain, moderate (4-7) Last Admin: 08/02/16 08:55 Dose: 50 mg - Labs Labs: 07/31/16 11:38 07/31/16 11:38 - Constitutional Appears: Non-toxic, No Acute Distress, Cachectic, Chronically Ill - Head Exam Head Exam: ATRAUMATIC, NORMAL INSPECTION - Eye Exam Eye Exam: EOMI, Normal appearance, PERRL - ENT Exam ENT Exam: Mucous Membranes Moist - Respiratory Exam Respiratory Exam: Clear to Ausculation Bilateral, NORMAL BREATHING PATTERN. absent: Accessory Muscle Use, Rales, Rhonchi, Wheezes, Respiratory Distress - Cardiovascular Exam Cardiovascular Exam: REGULAR RHYTHM, +S1, +S2 - GI/Abdominal Exam GI & Abdominal Exam: Soft, Normal Bowel Sounds. absent: Distended, Firm, Guarding, Tenderness - Extremities Exam Extremities Exam: absent: Calf Tenderness, Pedal Edema - Back Exam Back Exam: NORMAL INSPECTION. absent: CVA tenderness (L), CVA tenderness (R), paraspinal tenderness - Neurological Exam Neurological Exam: Alert, Awake, CN II-XII Intact, Oriented x3 - Psychiatric Exam Psychiatric exam: Normal Affect, Normal Mood - Skin Skin Exam: Dry, Intact, Normal Color, Warm Assessment and Plan - Assessment and Plan (Free Text) Assessment: Fracture of tibia, proximal, right, closed; pain management and physical therapy Continue physical therapy; goal is for use of cane per ortho. Cane present bedside Patient is progressively weight bearing. No ortho intervention needed at this time. Continue to try to get a facility to accept patient with ambulatory cane. Tylenol 650 mg PO Q6 PRN mild pain Tramadol 25mg TID PRN. Patient instructed to ask for pain when necessary. Lidoderm Patch Daily physical therapy BL Hip/Pelvis Xray: 07/30 No acute fracture. 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 No change from previous image on 03/28 L knee x-ray: severe osteopenia. Sclerotic changes about the posterior proximal tibia may relate to a sclerotic healing response of a prior stress fracture here. no tibial plateau depressed fracture. The sclerosis is perceived on the prior 04/21 study; no interval pathology appreciated between 2 exams. If symptoms worsen consider MRI. 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 imaging every [address] scan in 03/2016, should be monitored in September, Sacral decubitus- resolved Out of bed into chair daily Recommendations for silvadene creme to affected buttocks area History of Urinary Tract Infection Continue to monitor Most recent 06/22 Currently asymptomatic Seborrheic Dermatitis Continue Ketoconazole 2% to affected areas of face BID and Ketoconazole 2% Shampoo to hair twice weekly Cont to monitor progression Soft Stools f/u stool cultures as needed + leukocytes in stool c.diff. - negative hold miralax for now Prophylactic Measure Labs weekly on Sunday Lovenox 40mg SC daily Pepcid 20mg PO BID Patient is homeless. Used to stay with friend, but no longer welcome there. Goal is to walk with cane so he can go to a jail (will not qualify with a walker) Pt pending transfer, awaiting placement DW Dr. Wiggins, Jesus Manuel ALVAREZ, PGY-1 <Jose Wiggins - Last Filed: 08/03/16 16:48> Objective - Vital Signs/Intake and Output Vital Signs (last 24 hours): Temp Pulse Resp BP Pulse Ox 97.9 F 77 20 121/75 97 08/03/16 07:56 08/03/16 07:56 08/03/16 07:56 08/03/16 07:56 08/03/16 07:56 Intake and Output: 08/03/16 08/03/16 06:59 18:59 Intake Total 500 800 Output Total 600 Balance -100 800 - Medications Medications: Current Medications Acetaminophen (Tylenol 325mg Tab) 650 mg PO Q6 PRN PRN Reason: Pain, Mild (1-3) Enoxaparin Sodium (Lovenox) 40 mg SC DAILY [facility] Last Admin: 08/03/16 09:12 Dose: 40 mg Lactic Acid (Lac-Hydrin 12% Lotion (225 G)) 0 gm EXT Q12H [facility] Last Admin: 08/03/16 14:50 Dose: 1 appl Lidocaine (Lidoderm) 1 ea TD DAILY [facility] Last Admin: 08/03/16 09:17 Dose: 1 ea Tamsulosin HCl (Flomax) 0.8 mg PO DAILY [facility] Last Admin: 08/03/16 09:14 Dose: 0.8 mg Tramadol HCl (Ultram) 50 mg PO TID PRN PRN Reason: Pain, moderate (4-7) Last Admin: 08/03/16 09:15 Dose: 50 mg - Labs Labs: 07/31/16 11:38 07/31/16 11:38 Attending/Attestation - Attestation I have personally seen and examined this patient.: Yes I have fully participated in the care of the patient.: Yes I have reviewed all pertinent clinical information, including history, physical exam and plan: Yes Notes (Text): 08/03/16 16:47 Patient was seen and examined at bedside with the resident. There is no change in clinical condition Continue current medical management Continue physical therapy daily and awaiting placement.
[2016-08-03] MEDS: Enoxaparin 40 mg Syringe SC SCH (09:12)
[2016-08-03] MEDS: Lidocaine 5% Patch TD SCH ×2 (09:15→09:17)
[2016-08-03] MEDS: Ammonium Lactate 12% Lotion (225 g) EXT SCH ×2 (14:50→22:20)
--- NOTE | 2016-08-04 09:31 | CP.PCM.PN ---
<Jesus ManuelKimberly - Last Filed: 08/04/16 10:16> Subjective - Date & Time of Evaluation Date of Evaluation: 08/04/16 Time of Evaluation: 07:00 - Subjective Subjective: Medicine Note for Dr. Wiggins, Patient was seen and examined at bedside. Patient reports hip pain and right sided leg pain. Patient is able to ambulate with walker, working daily with PT. Denied fever, chills, headache, chest pain, abdominal pain, or urinary symptoms. No clinical changes. Objective - Vital Signs/Intake and Output Vital Signs (last 24 hours): Temp Pulse Resp BP Pulse Ox 98.7 F 71 18 105/65 96 08/04/16 07:00 08/04/16 07:00 08/04/16 07:00 08/04/16 07:00 08/04/16 07:00 Intake and Output: 08/04/16 08/04/16 06:59 18:59 Intake Total 630 Balance 630 - Medications Medications: Current Medications Acetaminophen (Tylenol 325mg Tab) 650 mg PO Q6 PRN PRN Reason: Pain, Mild (1-3) Enoxaparin Sodium (Lovenox) 40 mg SC DAILY [facility] Last Admin: 08/03/16 09:12 Dose: 40 mg Lactic Acid (Lac-Hydrin 12% Lotion (225 G)) 0 gm EXT Q12H [facility] Last Admin: 08/03/16 22:20 Dose: 1 appl Lidocaine (Lidoderm) 1 ea TD DAILY [facility] Last Admin: 08/03/16 09:17 Dose: 1 ea Tamsulosin HCl (Flomax) 0.8 mg PO DAILY [facility] Last Admin: 08/03/16 09:14 Dose: 0.8 mg Tramadol HCl (Ultram) 50 mg PO TID PRN PRN Reason: Pain, moderate (4-7) Last Admin: 08/03/16 09:15 Dose: 50 mg - Labs Labs: 07/31/16 11:38 07/31/16 11:38 - Constitutional Appears: Non-toxic, No Acute Distress - Head Exam Head Exam: ATRAUMATIC, NORMAL INSPECTION - Eye Exam Eye Exam: EOMI, Normal appearance - ENT Exam ENT Exam: Mucous Membranes Moist - Respiratory Exam Respiratory Exam: Clear to Ausculation Bilateral, NORMAL BREATHING PATTERN. absent: Accessory Muscle Use, Wheezes, Respiratory Distress - Cardiovascular Exam Cardiovascular Exam: REGULAR RHYTHM, +S1, +S2 - GI/Abdominal Exam GI & Abdominal Exam: Soft, Normal Bowel Sounds. absent: Distended, Firm, Guarding, Tenderness Assessment and Plan - Assessment and Plan (Free Text) Assessment: Fracture of tibia, proximal, right, closed; pain management and physical therapy Continue physical therapy; goal is for use of cane per ortho. Cane present bedside Patient is progressively weight bearing. No ortho intervention needed at this time. Continue to try to get a facility to accept patient with ambulatory cane. Tylenol 650 mg PO Q6 PRN mild pain Tramadol 25mg TID PRN. Patient instructed to ask for pain when necessary. Lidoderm Patch Daily physical therapy BL Hip/Pelvis Xray: 07/30 No acute fracture. 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 No change from previous image on 03/28 L knee x-ray: severe osteopenia. Sclerotic changes about the posterior proximal tibia may relate to a sclerotic healing response of a prior stress fracture here. no tibial plateau depressed fracture. The sclerosis is perceived on the prior 04/21 study; no interval pathology appreciated between 2 exams. If symptoms worsen consider MRI. 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 imaging every [address] scan in 03/2016, should be monitored in September, Sacral decubitus- resolved Out of bed into chair daily Recommendations for silvadene creme to affected buttocks area History of Urinary Tract Infection Continue to monitor Most recent 06/22 Currently asymptomatic Seborrheic Dermatitis Continue Ketoconazole 2% to affected areas of face BID and Ketoconazole 2% Shampoo to hair twice weekly Cont to monitor progression Soft Stools f/u stool cultures as needed + leukocytes in stool c.diff. - negative hold miralax for now Prophylactic Measure Labs weekly on Sunday Lovenox 40mg SC daily Pepcid 20mg PO BID Patient is homeless. Used to stay with friend, but no longer welcome there. Goal is to walk with cane so he can go [place] [facility] (will not qualify with a walker) Pt pending transfer, awaiting placement DW Jesus Manuel Recinos DO, PGY-1 <Jose Wiggins - Last Filed: 08/04/16 16:32> Objective - Vital Signs/Intake and Output Vital Signs (last 24 hours): Temp Pulse Resp BP Pulse Ox 98.7 F 71 18 105/65 96 08/04/16 07:00 08/04/16 07:00 08/04/16 07:00 08/04/16 07:00 08/04/16 07:00 Intake and Output: 08/04/16 08/04/16 06:59 18:59 Intake Total 630 Balance 630 - Medications Medications: Current Medications Acetaminophen (Tylenol 325mg Tab) 650 mg PO Q6 PRN PRN Reason: Pain, Mild (1-3) Enoxaparin Sodium (Lovenox) 40 mg SC DAILY [facility] Last Admin: 08/04/16 10:51 Dose: 40 mg Famotidine (Pepcid) 20 mg PO BID [facility] Last Admin: 08/04/16 10:50 Dose: 20 mg Lactic Acid (Lac-Hydrin 12% Lotion (225 G)) 0 gm EXT Q12H [facility] Last Admin: 08/04/16 10:58 Dose: 1 appl Lidocaine (Lidoderm) 1 ea TD DAILY [facility] Last Admin: 08/04/16 10:50 Dose: 1 ea Tamsulosin HCl (Flomax) 0.8 mg PO DAILY [facility] Last Admin: 08/04/16 10:49 Dose: 0.8 mg Tramadol HCl (Ultram) 50 mg PO TID PRN PRN Reason: Pain, moderate (4-7) Last Admin: 08/04/16 10:52 Dose: 50 mg - Labs Labs: 07/31/16 11:38 07/31/16 11:38 Attending/Attestation - Attestation I have personally seen and examined this patient.: Yes I have fully participated in the care of the patient.: Yes I have reviewed all pertinent clinical information, including history, physical exam and plan: Yes Notes (Text): 08/04/16 16:31 Patient was seen and examined at bedside with the resident Patient has no new complaints Continue physical therapy daily Awaiting placement. I agree with the above history and physical and assessment/ plan by the resident.
[2016-08-04] MEDS: Enoxaparin 40 mg Syringe SC SCH ×2 (10:50→10:51)
[2016-08-04] MEDS: Lidocaine 5% Patch TD SCH (10:50)
[2016-08-04] MEDS: Ammonium Lactate 12% Lotion (225 g) EXT SCH ×2 (10:58→22:48)
--- NOTE | 2016-08-05 02:25 | CP.PCM.PN ---
<Mike Villegas - Last Filed: 08/05/16 02:27> Subjective - Date & Time of Evaluation Date of Evaluation: 08/05/16 Time of Evaluation: 02:25 - Subjective Subjective: Medicine progress note. Attending: Dr. Wiggins Patient was seen and examined at bedside. No acute distress. Says he has been sleeping well. Patient reports hip pain and right sided leg pain. Patient is able to ambulate with walker, working daily with PT. Denied fever, chills, headache, chest pain, abdominal pain, or urinary symptoms. No clinical changes. Objective - Vital Signs/Intake and Output Vital Signs (last 24 hours): Temp Pulse Resp BP Pulse Ox 98 F 77 20 123/75 96 08/05/16 00:20 08/05/16 00:20 08/05/16 00:20 08/05/16 00:20 08/05/16 00:20 - Medications Medications: Current Medications Acetaminophen (Tylenol 325mg Tab) 650 mg PO Q6 PRN PRN Reason: Pain, Mild (1-3) Enoxaparin Sodium (Lovenox) 40 mg SC DAILY [facility] Last Admin: 08/04/16 10:51 Dose: 40 mg Famotidine (Pepcid) 20 mg PO BID [facility] Last Admin: 08/04/16 18:28 Dose: 20 mg Lactic Acid (Lac-Hydrin 12% Lotion (225 G)) 0 gm EXT Q12H [facility] Last Admin: 08/04/16 22:48 Dose: 1 appl Lidocaine (Lidoderm) 1 ea TD DAILY [facility] Last Admin: 08/04/16 10:50 Dose: 1 ea Tamsulosin HCl (Flomax) 0.8 mg PO DAILY [facility] Last Admin: 08/04/16 10:49 Dose: 0.8 mg Tramadol HCl (Ultram) 50 mg PO TID PRN PRN Reason: Pain, moderate (4-7) Last Admin: 08/04/16 10:52 Dose: 50 mg - Labs Labs: 07/31/16 11:38 07/31/16 11:38 - Constitutional Appears: Non-toxic, No Acute Distress - Head Exam Head Exam: ATRAUMATIC, NORMAL INSPECTION, NORMOCEPHALIC - Eye Exam Eye Exam: EOMI - ENT Exam ENT Exam: Mucous Membranes Moist - Neck Exam Neck Exam: Full ROM, Normal Inspection - Respiratory Exam Respiratory Exam: NORMAL BREATHING PATTERN. absent: Respiratory Distress - Cardiovascular Exam Cardiovascular Exam: +S1, +S2 - GI/Abdominal Exam GI & Abdominal Exam: Soft, Normal Bowel Sounds. absent: Tenderness - Extremities Exam Extremities Exam: Full ROM, Normal Inspection - Neurological Exam Neurological Exam: Alert, Awake, Oriented x3 - Psychiatric Exam Psychiatric exam: Normal Affect, Normal Mood - Skin Skin Exam: Dry, Intact, Normal Color, Warm Assessment and Plan - Assessment and Plan (Free Text) Assessment: This is a 71 yo male presenting with Fracture of tibia, proximal, right, closed; pain management and physical therapy Continue physical therapy; goal is for use of cane per ortho. Cane present bedside Patient is progressively weight bearing. No ortho intervention needed at this time. Continue to try to get a facility to accept patient with ambulatory cane. Tylenol 650 mg PO Q6 PRN mild pain Tramadol 50 mg PO TID PRN. Patient instructed to ask for pain medication when necessary. continue lidocaine patch Daily physical therapy BL Hip/Pelvis Xray: 07/30 No acute fracture. 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 No change from previous image on 03/28 L knee x-ray: severe osteopenia. Sclerotic changes about the posterior proximal tibia may relate to a sclerotic healing response of a prior stress fracture here. no tibial plateau depressed fracture. The sclerosis is perceived on the prior 04/21 study; no interval pathology appreciated between 2 exams. If symptoms worsen consider MRI. 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 imaging every [address] scan in 03/2016, should be monitored in September, Sacral decubitus- resolved Out of bed into chair daily Recommendations for silvadene creme to affected buttocks area History of Urinary Tract Infection Continue to monitor Most recent 06/22 Currently asymptomatic Seborrheic Dermatitis Continue Ketoconazole 2% to affected areas of face BID and Ketoconazole 2% Shampoo to hair twice weekly Cont to monitor progression Soft Stools f/u stool cultures as needed + leukocytes in stool c.diff. - negative hold miralax for now Prophylactic Measure Labs weekly on Sunday Lovenox 40mg SC daily Pepcid 20mg PO BID Patient is homeless. Used to stay with friend, but no longer welcome there. Goal is to walk with cane so he can go to a senior living (will not qualify with a walker) Pt pending transfer, awaiting placement to be discussed with Dr. Wiggins <Jose Wiggins - Last Filed: 08/05/16 14:38> Objective - Vital Signs/Intake and Output Vital Signs (last 24 hours): Temp Pulse Resp BP Pulse Ox 98.2 F 74 20 122/71 98 08/05/16 08:16 08/05/16 08:16 08/05/16 08:16 08/05/16 08:16 08/05/16 08:16 - Medications Medications: Current Medications Acetaminophen (Tylenol 325mg Tab) 650 mg PO Q6 PRN PRN Reason: Pain, Mild (1-3) Enoxaparin Sodium (Lovenox) 40 mg SC DAILY [facility] Last Admin: 08/05/16 09:14 Dose: 40 mg Famotidine (Pepcid) 20 mg PO BID [facility] Last Admin: 08/05/16 09:16 Dose: 20 mg Lactic Acid (Lac-Hydrin 12% Lotion (225 G)) 0 gm EXT Q12H [facility] Last Admin: 08/05/16 11:30 Dose: 1 appl Lidocaine (Lidoderm) 1 ea TD DAILY [facility] Last Admin: 08/05/16 09:15 Dose: 1 ea Tamsulosin HCl (Flomax) 0.8 mg PO DAILY [facility] Last Admin: 08/05/16 09:14 Dose: 0.8 mg Tramadol HCl (Ultram) 50 mg PO TID PRN PRN Reason: Pain, moderate (4-7) Last Admin: 08/04/16 10:52 Dose: 50 mg - Labs Labs: 07/31/16 11:38 07/31/16 11:38 Attending/Attestation - Attestation I have personally seen and examined this patient.: Yes I have fully participated in the care of the patient.: Yes I have reviewed all pertinent clinical information, including history, physical exam and plan: Yes Notes (Text): 08/05/16 14:37 Patient was seen and examined at bedside with the resident Complains of for right lower extremity pain on ambulation Continue physical therapy daily Discharge planning in progress
[2016-08-05] MEDS: Enoxaparin 40 mg Syringe SC SCH (09:14)
[2016-08-05] MEDS: Lidocaine 5% Patch TD SCH (09:15)
[2016-08-05] MEDS: Ammonium Lactate 12% Lotion (225 g) EXT SCH ×2 (11:30→22:36)
--- NOTE | 2016-08-06 03:09 | CP.PCM.PN ---
<Mike Villegas - Last Filed: 08/06/16 03:11> Subjective - Date & Time of Evaluation Date of Evaluation: 08/06/16 Time of Evaluation: 03:10 - Subjective Subjective: Medicine progress note. Attending: Dr. Wiggins Patient was seen and examined at bedside. No acute distress. Says he has been sleeping well. Patient reports hip pain and right sided leg pain. Patient is able to ambulate with walker, working daily with PT. Denied fever, chills, headache, chest pain, abdominal pain, or urinary symptoms. No clinical changes. Objective - Vital Signs/Intake and Output Vital Signs (last 24 hours): Temp Pulse Resp BP Pulse Ox 98.1 F 76 20 110/64 96 08/06/16 00:41 08/06/16 00:41 08/06/16 00:41 08/06/16 00:41 08/06/16 00:41 Intake and Output: 08/05/16 08/06/16 18:59 06:59 Intake Total 300 Balance 300 - Medications Medications: Current Medications Acetaminophen (Tylenol 325mg Tab) 650 mg PO Q6 PRN PRN Reason: Pain, Mild (1-3) Enoxaparin Sodium (Lovenox) 40 mg SC DAILY ON LICENSE OF [facility] Last Admin: 08/05/16 09:14 Dose: 40 mg Famotidine (Pepcid) 20 mg PO BID ON LICENSE OF [facility] Last Admin: 08/05/16 17:13 Dose: 20 mg Lactic Acid (Lac-Hydrin 12% Lotion (225 G)) 0 gm EXT Q12H ON LICENSE OF [facility] Last Admin: 08/05/16 22:36 Dose: 1 appl Lidocaine (Lidoderm) 1 ea TD DAILY [facility] Last Admin: 08/05/16 09:15 Dose: 1 ea Tamsulosin HCl (Flomax) 0.8 mg PO DAILY ON LICENSE OF [facility] Last Admin: 08/05/16 09:14 Dose: 0.8 mg Tramadol HCl (Ultram) 50 mg PO TID PRN PRN Reason: Pain, moderate (4-7) Last Admin: 08/04/16 10:52 Dose: 50 mg - Labs Labs: 07/31/16 11:38 07/31/16 11:38 - Constitutional Appears: Non-toxic, No Acute Distress - Head Exam Head Exam: ATRAUMATIC, NORMAL INSPECTION, NORMOCEPHALIC - Eye Exam Eye Exam: EOMI - ENT Exam ENT Exam: Mucous Membranes Moist - Neck Exam Neck Exam: Full ROM, Normal Inspection - Respiratory Exam Respiratory Exam: NORMAL BREATHING PATTERN. absent: Respiratory Distress - Cardiovascular Exam Cardiovascular Exam: +S1, +S2 - GI/Abdominal Exam GI & Abdominal Exam: Soft, Normal Bowel Sounds. absent: Tenderness - Extremities Exam Extremities Exam: Full ROM, Normal Inspection - Neurological Exam Neurological Exam: Alert, Awake, Oriented x3 - Psychiatric Exam Psychiatric exam: Normal Affect, Normal Mood - Skin Skin Exam: Dry, Intact, Normal Color, Warm Assessment and Plan - Assessment and Plan (Free Text) Assessment: This is a 71 yo male presenting with Fracture of tibia, proximal, right, closed; pain management and physical therapy Continue physical therapy; goal is for use of cane per ortho. Cane present at bedside Patient is progressively weight bearing. No ortho intervention needed at this time. Continue to try to get a facility to accept patient with ambulatory cane. Tylenol 650 mg PO Q6 PRN mild pain Tramadol 50 mg PO TID PRN. Patient instructed to ask for pain medication when necessary. continue lidocaine patch Daily physical therapy BL Hip/Pelvis Xray: 07/30 No acute fracture. 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 No change from previous image on 03/28 L knee x-ray: severe osteopenia. Sclerotic changes about the posterior proximal tibia may relate to a sclerotic healing response of a prior stress fracture here. no tibial plateau depressed fracture. The sclerosis is perceived on the prior 04/21 study; no interval pathology appreciated between 2 exams. If symptoms worsen consider MRI. 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 imaging every [address] scan in 03/2016, should be monitored in September, Sacral decubitus- resolved Out of bed into chair daily Recommendations for silvadene creme to affected buttocks area History of Urinary Tract Infection Continue to monitor Most recent 06/22 Currently asymptomatic Seborrheic Dermatitis Continue Ketoconazole 2% to affected areas of face BID and Ketoconazole 2% Shampoo to hair twice weekly Cont to monitor progression Soft Stools f/u stool cultures as needed + leukocytes in stool c.diff. - negative hold miralax for now Prophylactic Measure Labs weekly on Sunday Lovenox 40mg SC daily Pepcid 20mg PO BID Patient is homeless. Used to stay with friend, but no longer welcome there. Goal is to walk with cane so he can go to a [facility] (will not qualify with a walker) Pt pending transfer, awaiting placement to be discussed with Dr. Wiggins <Jose Wiggins - Last Filed: 08/06/16 13:54> Objective - Vital Signs/Intake and Output Vital Signs (last 24 hours): Temp Pulse Resp BP Pulse Ox 97.4 F L 77 21 113/69 97 08/06/16 08:11 08/06/16 08:11 08/06/16 08:11 08/06/16 08:11 08/06/16 08:11 Intake and Output: 08/06/16 08/06/16 06:59 18:59 Intake Total 300 Balance 300 - Medications Medications: Current Medications Acetaminophen (Tylenol 325mg Tab) 650 mg PO Q6 PRN PRN Reason: Pain, Mild (1-3) Famotidine (Pepcid) 20 mg PO BID ON [facility] OF [facility] Last Admin: 08/06/16 09:05 Dose: 20 mg Lactic Acid (Lac-Hydrin 12% Lotion (225 G)) 0 gm EXT Q12H ON LICENSE OF [facility] Last Admin: 08/06/16 11:15 Dose: 1 appl Lidocaine (Lidoderm) 1 ea TD DAILY ON [facility] Last Admin: 08/06/16 09:05 Dose: 1 ea Tamsulosin HCl (Flomax) 0.8 mg PO DAILY ON [facility] Last Admin: 08/06/16 09:05 Dose: 0.8 mg Tramadol HCl (Ultram) 50 mg PO TID PRN PRN Reason: Pain, moderate (4-7) Last Admin: 08/04/16 10:52 Dose: 50 mg - Labs Labs: 07/31/16 11:38 07/31/16 11:38 Attending/Attestation - Attestation I have personally seen and examined this patient.: Yes I have fully participated in the care of the patient.: Yes I have reviewed all pertinent clinical information, including history, physical exam and plan: Yes Notes (Text): 08/06/16 13:53 Patient was seen and examined at bedside. Breathing is stable Continue current medical management. Awaiting placement I reviewed the chart, labs imaging studies and consultant dietitian notes. I agree with above history and physical and assessment/pln by the resident.
[2016-08-06] MEDS: Lidocaine 5% Patch TD SCH (09:05)
[2016-08-06] MEDS: Ammonium Lactate 12% Lotion (225 g) EXT SCH ×2 (11:15→22:33)
--- NOTE | 2016-08-07 00:06 | CP.PCM.PN ---
<Juan Pablo Ny - Last Filed: 08/07/16 00:24> Subjective - Date & Time of Evaluation Date of Evaluation: 08/07/16 Time of Evaluation: 00:00 - Subjective Subjective: PGY-1 progress note Pt seen and examined at bedside. Nursing reports no acute events overnight. He reports continued hip pain and right sided leg pain, which is well controlled on current pain regimen. Nursing staff reports pt has been having Physical Therapy daily, and is able to walk with a walker. Pt reports he has been tolerating diet and moving bowel without difficulty. He denied fever, chills, headache, chest pain, abdominal pain, or urinary symptoms. Objective - Vital Signs/Intake and Output Vital Signs (last 24 hours): Temp Pulse Resp BP Pulse Ox 97.7 F 78 20 107/69 98 08/06/16 16:00 08/06/16 16:00 08/06/16 16:00 08/06/16 16:00 08/06/16 16:00 Intake and Output: 08/06/16 08/07/16 18:59 06:59 Intake Total 300 Output Total 3 Balance 297 - Medications Medications: Current Medications Acetaminophen (Tylenol 325mg Tab) 650 mg PO Q6 PRN PRN Reason: Pain, Mild (1-3) Enoxaparin Sodium (Lovenox) 40 mg SC DAILY [facility] Famotidine (Pepcid) 20 mg PO BID [facility] Last Admin: 08/06/16 17:52 Dose: 20 mg Lactic Acid (Lac-Hydrin 12% Lotion (225 G)) 0 gm EXT Q12H [facility] Last Admin: 08/06/16 22:33 Dose: 1 appl Lidocaine (Lidoderm) 1 ea TD DAILY [facility] Last Admin: 08/06/16 09:05 Dose: 1 ea Tamsulosin HCl (Flomax) 0.8 mg PO DAILY [facility] Last Admin: 08/06/16 09:05 Dose: 0.8 mg Tramadol HCl (Ultram) 50 mg PO TID PRN PRN Reason: Pain, moderate (4-7) Last Admin: 08/04/16 10:52 Dose: 50 mg - Labs Labs: 07/31/16 11:38 07/31/16 11:38 - Constitutional Appears: Non-toxic, No Acute Distress - Head Exam Head Exam: ATRAUMATIC, NORMAL INSPECTION, NORMOCEPHALIC - Eye Exam Eye Exam: EOMI - ENT Exam ENT Exam: Mucous Membranes Moist - Respiratory Exam Respiratory Exam: Clear to Ausculation Bilateral, NORMAL BREATHING PATTERN - Cardiovascular Exam Cardiovascular Exam: REGULAR RHYTHM, +S1, +S2 - GI/Abdominal Exam GI & Abdominal Exam: Soft, Normal Bowel Sounds. absent: Tenderness - Extremities Exam Extremities Exam: Normal Inspection, Tenderness (rt knee, rt hip). absent: Pedal Edema - Neurological Exam Neurological Exam: Alert, Awake, Oriented x3 - Psychiatric Exam Psychiatric exam: Normal Affect - Skin Skin Exam: Normal Color, Warm Assessment and Plan - Assessment and Plan (Free Text) Plan: Fracture of tibia, proximal, right, closed; pain management and physical therapy Continue physical therapy; goal is for use of cane per ortho. Cane present at bedside Patient is progressively weight bearing. No ortho intervention needed at this time. Continue to try to get a facility to accept patient with ambulatory cane. Tylenol 650 mg PO Q6 PRN mild pain Tramadol 50 mg PO TID PRN. Patient instructed to ask for pain medication when necessary. continue lidocaine patch Daily physical therapy BL Hip/Pelvis Xray: 07/30 No acute fracture. 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 No change from previous image on 07/10/16 L knee x-ray: severe osteopenia. Sclerotic changes about the posterior proximal tibia may relate to a sclerotic healing response of a prior stress fracture here. no tibial plateau depressed fracture. The sclerosis is perceived on the prior 04/21 study; no interval pathology appreciated between 2 exams. If symptoms worsen consider MRI. 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 imaging every [address] scan in 03/2016, should be monitored in September, Sacral decubitus- resolved Out of bed into chair daily Recommendations for silvadene creme to affected buttocks area History of Urinary Tract Infection Continue to monitor Most recent 06/22 Currently asymptomatic Seborrheic Dermatitis Continue Ketoconazole 2% to affected areas of face BID and Ketoconazole 2% Shampoo to hair twice weekly Cont to monitor progression Soft Stools f/u stool cultures as needed + leukocytes in stool c.diff. - negative hold miralax for now Prophylactic Measure Labs weekly on Sunday Lovenox 40mg SC daily Pepcid 20mg PO BID Patient is homeless. Used to stay with friend, but no longer welcome there. Goal is to walk with cane so he can go to a [facility] (will not qualify with a walker) Pt pending transfer, awaiting placement <Sukhwinder Rutherford - Last Filed: 08/07/16 11:50> Objective - Vital Signs/Intake and Output Vital Signs (last 24 hours): Temp Pulse Resp BP Pulse Ox 97.7 F 71 20 130/76 97 08/07/16 08:33 08/07/16 08:33 08/07/16 08:33 08/07/16 08:33 08/07/16 08:33 Intake and Output: 08/07/16 08/07/16 06:59 18:59 Intake Total 300 Output Total 3 Balance 297 - Medications Medications: Current Medications Acetaminophen (Tylenol 325mg Tab) 650 mg PO Q6 PRN PRN Reason: Pain, Mild (1-3) Enoxaparin Sodium (Lovenox) 40 mg SC DAILY [facility] Last Admin: 08/07/16 11:24 Dose: 40 mg Famotidine (Pepcid) 20 mg PO BID [facility] Last Admin: 08/07/16 11:24 Dose: 20 mg Lactic Acid (Lac-Hydrin 12% Lotion (225 G)) 0 gm EXT Q12H [facility] Last Admin: 08/07/16 11:22 Dose: 1 appl Lidocaine (Lidoderm) 1 ea TD DAILY [facility] Last Admin: 08/07/16 11:20 Dose: 1 ea Tamsulosin HCl (Flomax) 0.8 mg PO DAILY [facility] Last Admin: 08/07/16 11:23 Dose: 0.8 mg Tramadol HCl (Ultram) 50 mg PO TID PRN PRN Reason: Pain, moderate (4-7) Last Admin: 08/07/16 00:15 Dose: 50 mg - Labs Labs: 08/07/16 10:56 08/07/16 10:56 Attending/Attestation - Attestation I have personally seen and examined this patient.: Yes I have fully participated in the care of the patient.: Yes I have reviewed all pertinent clinical information, including history, physical exam and plan: Yes Notes (Text): 08/07/16 11:49 Medical Attending: Patient was seen and examined by me. Agree with the above note by the resident. This is a patient who has been here for some time due to a leg fracture and chronic weakness. From what I am told he does not qualify for Medicaid or Medicare so currently he is still in the hospital Sukhwinder Rutherford
[2016-08-07 11:01] LABS: BASO % 0.3 % (0.0-2.0); EOS # 0.1 K/uL (0.0-0.7); EOS % 1.6 % (0.0-4.0); HEMOGLOBIN 13.3 g/dL (12.0-18.0); LYMPH % 36.4 % (20.0-40.0); MEAN CELL VOLUME 96.5 fL (80.0-94.0); MEAN CORPUSCULAR HEMOGLOBIN 32.1 pg (27.0-31.0); MEAN CORPUSCULAR HGB CONC 33.3 g/dL (33.0-37.0); MEAN PLATELET VOLUME 8.2 fL (7.2-11.7); MONO # 0.5 K/uL (0.0-0.8); MONO % 9.6 % (0.0-10.0); NEUT # 2.9 K/uL (1.8-7.0); NEUT % 52.1 % (50.0-75.0); NRBC % 0.1 % (0.0-2.0); RBC 4.14 Mil/uL (4.40-5.90); RED CELL DISTRIBUTION WIDTH 13.7 % (11.5-14.5); WHITE BLOOD COUNT 5.5 K/uL (4.8-10.8)
[2016-08-07 11:09] LABS: ALBUMIN 4.2 g/dL (3.5-5.0)
[2016-08-07 11:12] LABS: AST/SGOT 15 U/L (17-59); GFR AFRICAN-AMERICAN > 60; GFR NON-AFRICAN AMERICAN > 60
[2016-08-07 11:13] LABS: BLOOD UREA NITROGEN 12 mg/dL (9-20); CALCIUM 9.1 mg/dl (8.6-10.4)
[2016-08-07 11:14] LABS: ALT/SGPT 6 U/L (21-72)
[2016-08-07] MEDS: Lidocaine 5% Patch TD SCH (11:20)
[2016-08-07] MEDS: Ammonium Lactate 12% Lotion (225 g) EXT SCH ×2 (11:22→22:00)
[2016-08-07] MEDS: Enoxaparin 40 mg Syringe SC SCH (11:24)
--- NOTE | 2016-08-08 08:58 | CP.PCM.PN ---
<Kimberly Ken - Last Filed: 08/08/16 10:21> Subjective - Date & Time of Evaluation Date of Evaluation: 08/08/16 Time of Evaluation: 07:00 - Subjective Subjective: Pt seen and examined at bedside. Nursing reports no acute events overnight. He reports continued hip pain and right sided leg pain, which is well controlled on current pain regimen. He admits to urinary frequency but denies dysuria. Nursing staff reports pt has been having Physical Therapy daily, and is able to walk with a walker. Pt reports he has been tolerating diet and moving bowel without difficulty. He denied fever, chills, headache, chest pain, abdominal pain. Objective - Vital Signs/Intake and Output Vital Signs (last 24 hours): Temp Pulse Resp BP Pulse Ox 97.4 F L 71 20 111/69 97 08/08/16 08:08 08/08/16 08:08 08/08/16 08:08 08/08/16 08:08 08/08/16 08:08 - Medications Medications: Current Medications Acetaminophen (Tylenol 325mg Tab) 650 mg PO Q6 PRN PRN Reason: Pain, Mild (1-3) Enoxaparin Sodium (Lovenox) 40 mg SC DAILY [facility] Last Admin: 08/07/16 11:24 Dose: 40 mg Famotidine (Pepcid) 20 mg PO BID [facility] Last Admin: 08/07/16 17:15 Dose: 20 mg Lactic Acid (Lac-Hydrin 12% Lotion (225 G)) 0 gm EXT Q12H [facility] Last Admin: 08/07/16 22:00 Dose: 1 appl Lidocaine (Lidoderm) 1 ea TD DAILY [facility] Last Admin: 08/07/16 11:20 Dose: 1 ea Tamsulosin HCl (Flomax) 0.8 mg PO DAILY [facility] Last Admin: 08/07/16 11:23 Dose: 0.8 mg Tramadol HCl (Ultram) 50 mg PO TID PRN PRN Reason: Pain, moderate (4-7) Last Admin: 08/07/16 00:15 Dose: 50 mg - Labs Labs: 08/07/16 10:56 08/07/16 10:56 - Constitutional Appears: Non-toxic, No Acute Distress, Unkempt, Chronically Ill - Head Exam Head Exam: ATRAUMATIC, NORMAL INSPECTION - Eye Exam Eye Exam: EOMI Pupil Exam: NORMAL ACCOMODATION - ENT Exam ENT Exam: Mucous Membranes Moist - Respiratory Exam Respiratory Exam: Clear to Ausculation Bilateral, NORMAL BREATHING PATTERN. absent: Accessory Muscle Use, Rales, Rhonchi, Wheezes, Respiratory Distress - Cardiovascular Exam Cardiovascular Exam: REGULAR RHYTHM, +S1, +S2 - GI/Abdominal Exam GI & Abdominal Exam: Soft, Normal Bowel Sounds. absent: Distended, Firm, Guarding, Tenderness - Extremities Exam Extremities Exam: Normal Inspection Additional comments: skin changes - Back Exam Back Exam: NORMAL INSPECTION. absent: CVA tenderness (L), CVA tenderness (R), paraspinal tenderness - Neurological Exam Neurological Exam: Alert, Awake, Oriented x3 - Psychiatric Exam Psychiatric exam: Normal Affect, Normal Mood - Skin Skin Exam: Dry, Normal Color, Warm Assessment and Plan - Assessment and Plan (Free Text) Assessment: Fracture of tibia, proximal, right, closed; pain management and physical therapy Continue physical therapy; goal is for use of cane per ortho. Cane present at bedside Patient is progressively weight bearing. No ortho intervention needed at this time. Continue to try to get a facility to accept patient with ambulatory cane. Tylenol 650 mg PO Q6 PRN mild pain Tramadol 50 mg PO TID PRN. Patient instructed to ask for pain medication when necessary. continue lidocaine patch Daily physical therapy BL Hip/Pelvis Xray: 07/30 No acute fracture. 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 No change from previous image on 07/10/16 L knee x-ray: severe osteopenia. Sclerotic changes about the posterior proximal tibia may relate to a sclerotic healing response of a prior stress fracture here. no tibial plateau depressed fracture. The sclerosis is perceived on the prior 04/21 study; no interval pathology appreciated between 2 exams. If symptoms worsen consider MRI. 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 imaging every [address] scan in 03/2016, should be monitored in September, Sacral decubitus- resolved Out of bed into chair daily Recommendations for silvadene creme to affected buttocks area History of Urinary Tract Infection Continue to monitor Most recent 06/22 Currently asymptomatic Seborrheic Dermatitis Continue Ketoconazole 2% to affected areas of face BID and Ketoconazole 2% Shampoo to hair twice weekly Cont to monitor progression Soft Stools f/u stool cultures as needed + leukocytes in stool c.diff. - negative hold miralax for now Prophylactic Measure Labs weekly on Sunday Lovenox 40mg SC daily Pepcid 20mg PO BID Patient is homeless. Used to stay with friend, but no longer welcome there. Goal is to walk with cane so he can go to a [facility] (will not qualify with a walker) Pt pending transfer, awaiting placement <Parker Cantu - Last Filed: 08/23/16 14:16> Objective - Vital Signs/Intake and Output Vital Signs (last 24 hours): Temp Pulse Resp BP Pulse Ox 98.5 F 82 20 109/69 97 08/23/16 08:00 08/23/16 08:00 08/23/16 08:00 08/23/16 08:00 08/23/16 08:00 Intake and Output: 08/23/16 08/23/16 06:59 18:59 Intake Total 810 400 Balance 810 400 - Medications Medications: Current Medications Acetaminophen (Tylenol 325mg Tab) 650 mg PO Q6 PRN PRN Reason: Pain, Mild (1-3) Last Admin: 08/23/16 09:12 Dose: 650 mg Bisacodyl (Dulcolax) 5 mg PO Q12 PRN PRN Reason: Constipation Last Admin: 08/18/16 14:47 Dose: 5 mg Enoxaparin Sodium (Lovenox) 40 mg SC DAILY [facility] Last Admin: 08/23/16 09:12 Dose: 40 mg Famotidine (Pepcid) 20 mg PO BID [facility] Last Admin: 08/23/16 09:12 Dose: 20 mg Lidocaine (Lidoderm) 1 ea TD DAILY [facility] Last Admin: 08/23/16 09:13 Dose: 1 ea Polyethylene Glycol (Miralax) 17 gm PO DAILY [facility] Last Admin: 08/21/16 09:12 Dose: Not Given Simethicone (Mylicon Chew Tab) 80 mg PO QID PRN PRN Reason: GI distress Last Admin: 08/22/16 09:42 Dose: 80 mg Tamsulosin HCl (Flomax) 0.8 mg PO DAILY [facility] Last Admin: 08/23/16 09:11 Dose: 0.8 mg Tramadol HCl (Ultram) 50 mg PO TID PRN PRN Reason: Pain, moderate (4-7) Last Admin: 08/23/16 09:11 Dose: 50 mg - Labs Labs: 08/21/16 11:16 08/21/16 11:16 Attending/Attestation - Attestation I have personally seen and examined this patient.: Yes I have fully participated in the care of the patient.: Yes I have reviewed all pertinent clinical information, including history, physical exam and plan: Yes Notes (Text): Patient Seen and examined with the resident. Agree with the resident's evaluation, assessment and plan. Fracture of tibia, proximal, right, closed; pain management and physical therapy Continue physical therapy; goal is for use of cane per ortho. Cane present bedside Gait Instability; will continue with PT/OT 8 weeks of immobilization and protected WB as per ortho BPH Flomax 0.8 mg PO daily
[2016-08-08] MEDS: Lidocaine 5% Patch TD SCH (10:22)
[2016-08-08] MEDS: Enoxaparin 40 mg Syringe SC SCH (10:23)
[2016-08-08] MEDS: Ammonium Lactate 12% Lotion (225 g) EXT SCH ×3 (13:57→22:05)
[2016-08-08 19:15] LABS: SQUAMOUS EPITHIAL < 1 /hpf (0-5); URINE BACTERIA RARE (<OCC); URINE BILIRUBIN NEGATIVE (NEGATIVE); URINE BLOOD NEGATIVE (NEGATIVE); URINE CLARITY Clear (Clear); URINE COLOR Yellow (YELLOW); URINE GLUCOSE (UA) NORMAL (Normal); URINE LEUKOCYTE ESTERASE NEG Leu/uL (Negative); URINE NITRATE NEGATIVE (NEGATIVE); URINE PROTEIN NEGATIVE (NEGATIVE); URINE UROBILINOGEN NORMAL mg/dL (0.2-1.0)
--- NOTE | 2016-08-09 11:03 | CP.PCM.PN ---
<Kimberly Ken - Last Filed: 08/09/16 13:48> Subjective - Date & Time of Evaluation Date of Evaluation: 08/09/16 Time of Evaluation: 07:00 - Subjective Subjective: Pt seen and examined at bedside. Nursing reports no acute events overnight. He reports continued hip pain and right sided leg pain, which is well controlled on current pain regimen. He admits to urinary frequency but denies dysuria. UA done yesterday was negative. Nursing staff reports pt has been having Physical Therapy daily, and is able to walk with a walker. Pt reports he has been tolerating diet and moving bowel without difficulty. He denied fever, chills, headache, chest pain, abdominal pain. Objective - Vital Signs/Intake and Output Vital Signs (last 24 hours): Temp Pulse Resp BP Pulse Ox 97.6 F 69 20 122/76 100 08/09/16 08:15 08/09/16 08:15 08/09/16 08:15 08/09/16 08:15 08/09/16 08:15 Intake and Output: 08/09/16 08/09/16 06:59 18:59 Intake Total 300 Balance 300 - Medications Medications: Current Medications Acetaminophen (Tylenol 325mg Tab) 650 mg PO Q6 PRN PRN Reason: Pain, Mild (1-3) Enoxaparin Sodium (Lovenox) 40 mg SC DAILY [facility] Last Admin: 08/08/16 10:23 Dose: 40 mg Famotidine (Pepcid) 20 mg PO BID [facility] Last Admin: 08/08/16 18:23 Dose: 20 mg Lactic Acid (Lac-Hydrin 12% Lotion (225 G)) 0 gm EXT Q12H [facility] Last Admin: 08/08/16 22:05 Dose: 1 appl Lidocaine (Lidoderm) 1 ea TD DAILY [facility] Last Admin: 08/08/16 10:22 Dose: 1 ea Tamsulosin HCl (Flomax) 0.8 mg PO DAILY [facility] Last Admin: 08/08/16 10:35 Dose: 0.8 mg Tramadol HCl (Ultram) 50 mg PO TID PRN PRN Reason: Pain, moderate (4-7) Last Admin: 08/08/16 10:24 Dose: 50 mg - Labs Labs: 08/07/16 10:56 08/07/16 10:56 - Constitutional Appears: Non-toxic, No Acute Distress - Head Exam Head Exam: ATRAUMATIC, NORMAL INSPECTION - Eye Exam Eye Exam: EOMI, Normal appearance - ENT Exam ENT Exam: Mucous Membranes Moist - Respiratory Exam Respiratory Exam: Clear to Ausculation Bilateral, NORMAL BREATHING PATTERN. absent: Accessory Muscle Use, Rales, Rhonchi, Wheezes, Respiratory Distress - Cardiovascular Exam Cardiovascular Exam: REGULAR RHYTHM, +S1, +S2 - GI/Abdominal Exam GI & Abdominal Exam: Soft, Normal Bowel Sounds. absent: Distended, Firm, Guarding, Tenderness - Extremities Exam Extremities Exam: Normal Inspection Additional comments: skin changes - Back Exam Back Exam: NORMAL INSPECTION - Neurological Exam Neurological Exam: Alert, Awake - Psychiatric Exam Psychiatric exam: Normal Affect, Normal Mood - Skin Skin Exam: Dry, Intact, Normal Color, Warm Additional comments: scaral ulcer Assessment and Plan - Assessment and Plan (Free Text) Assessment: Fracture of tibia, proximal, right, closed; pain management and physical therapy Continue physical therapy; goal is for use of cane per ortho. Cane present at bedside Patient is progressively weight bearing. No ortho intervention needed at this time. Continue to try to get a facility to accept patient with ambulatory cane. Tylenol 650 mg PO Q6 PRN mild pain Tramadol 50 mg PO TID PRN. Patient instructed to ask for pain medication when necessary. continue lidocaine patch Daily physical therapy BL Hip/Pelvis Xray: 07/30 No acute fracture. 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 No change from previous image on 07/10/16 L knee x-ray: severe osteopenia. Sclerotic changes about the posterior proximal tibia may relate to a sclerotic healing response of a prior stress fracture here. no tibial plateau depressed fracture. The sclerosis is perceived on the prior 04/21 study; no interval pathology appreciated between 2 exams. If symptoms worsen consider MRI. 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 imaging every [address] scan in 03/2016, should be monitored in September, Sacral decubitus- resolved Out of bed into chair daily Recommendations for silvadene creme to affected buttocks area History of Urinary Tract Infection Continue to monitor Most recent 06/22 Currently with urinary frequency x 2 days UA 08/08 negative Seborrheic Dermatitis Continue Ketoconazole 2% to affected areas of face BID and Ketoconazole 2% Shampoo to hair twice weekly Cont to monitor progression Soft Stools f/u stool cultures as needed + leukocytes in stool c.diff. - negative hold miralax for now Prophylactic Measure Labs weekly on Sunday Lovenox 40mg SC daily Pepcid 20mg PO BID Patient is homeless. Used to stay with friend, but no longer welcome there. Goal is to walk with cane so he can go to a long-term (will not qualify with a walker) Pt pending transfer, awaiting placement <Parker Cantu - Last Filed: 08/23/16 14:17> Objective - Vital Signs/Intake and Output Vital Signs (last 24 hours): Temp Pulse Resp BP Pulse Ox 98.5 F 82 20 109/69 97 08/23/16 08:00 08/23/16 08:00 08/23/16 08:00 08/23/16 08:00 08/23/16 08:00 Intake and Output: 08/23/16 08/23/16 06:59 18:59 Intake Total 810 400 Balance 810 400 - Medications Medications: Current Medications Acetaminophen (Tylenol 325mg Tab) 650 mg PO Q6 PRN PRN Reason: Pain, Mild (1-3) Last Admin: 08/23/16 09:12 Dose: 650 mg Bisacodyl (Dulcolax) 5 mg PO Q12 PRN PRN Reason: Constipation Last Admin: 08/18/16 14:47 Dose: 5 mg Enoxaparin Sodium (Lovenox) 40 mg SC DAILY [facility] Last Admin: 08/23/16 09:12 Dose: 40 mg Famotidine (Pepcid) 20 mg PO BID [facility] Last Admin: 08/23/16 09:12 Dose: 20 mg Lidocaine (Lidoderm) 1 ea TD DAILY [facility] Last Admin: 08/23/16 09:13 Dose: 1 ea Polyethylene Glycol (Miralax) 17 gm PO DAILY [facility] Last Admin: 08/21/16 09:12 Dose: Not Given Simethicone (Mylicon Chew Tab) 80 mg PO QID PRN PRN Reason: GI distress Last Admin: 08/22/16 09:42 Dose: 80 mg Tamsulosin HCl (Flomax) 0.8 mg PO DAILY [facility] Last Admin: 08/23/16 09:11 Dose: 0.8 mg Tramadol HCl (Ultram) 50 mg PO TID PRN PRN Reason: Pain, moderate (4-7) Last Admin: 08/23/16 09:11 Dose: 50 mg - Labs Labs: 08/21/16 11:16 08/21/16 11:16 Attending/Attestation - Attestation I have personally seen and examined this patient.: Yes I have fully participated in the care of the patient.: Yes I have reviewed all pertinent clinical information, including history, physical exam and plan: Yes Notes (Text): Patient Seen and examined with the resident. Agree with the resident's evaluation, assessment and plan. Fracture of tibia, proximal, right, closed; pain management and physical therapy Continue physical therapy; goal is for use of cane per ortho. Cane present bedside Gait Instability; will continue with PT/OT 8 weeks of immobilization and protected WB as per ortho BPH Flomax 0.8 mg PO daily
[2016-08-09] MEDS: Enoxaparin 40 mg Syringe SC SCH (11:10)
[2016-08-09] MEDS: Ammonium Lactate 12% Lotion (225 g) EXT SCH ×2 (11:10→15:03)
[2016-08-09] MEDS: Lidocaine 5% Patch TD SCH (11:11)
[2016-08-10] MEDS: Ammonium Lactate 12% Lotion (225 g) EXT SCH ×2 (00:06→11:06)
[2016-08-10] MEDS: Lidocaine 5% Patch TD SCH (10:25)
[2016-08-10] MEDS: Enoxaparin 40 mg Syringe SC SCH (10:25)
--- NOTE | 2016-08-10 13:10 | CP.PCM.PN ---
<Kimberly Ken - Last Filed: 08/10/16 13:11> Subjective - Date & Time of Evaluation Date of Evaluation: 08/10/16 Time of Evaluation: 07:05 - Subjective Subjective: Pt seen and examined at bedside. Nursing reports no acute events overnight. He reports continued hip pain and right sided leg pain, which is well controlled on current pain regimen. Nursing staff reports pt has been having Physical Therapy daily, and is able to walk with a walker. Pt reports he has been tolerating diet and moving bowel without difficulty. He denied fever, chills, headache, chest pain, abdominal pain. Objective - Vital Signs/Intake and Output Vital Signs (last 24 hours): Temp Pulse Resp BP Pulse Ox 98 F 73 20 110/68 97 08/10/16 07:29 08/10/16 07:29 08/10/16 07:29 08/10/16 07:29 08/10/16 07:29 - Medications Medications: Current Medications Acetaminophen (Tylenol 325mg Tab) 650 mg PO Q6 PRN PRN Reason: Pain, Mild (1-3) Enoxaparin Sodium (Lovenox) 40 mg SC DAILY [facility] Last Admin: 08/10/16 10:25 Dose: 40 mg Famotidine (Pepcid) 20 mg PO BID [facility] Last Admin: 08/10/16 10:26 Dose: 20 mg Lidocaine (Lidoderm) 1 ea TD DAILY [facility] Last Admin: 08/10/16 10:25 Dose: 1 ea Tamsulosin HCl (Flomax) 0.8 mg PO DAILY [facility] Last Admin: 08/10/16 10:26 Dose: 0.8 mg Tramadol HCl (Ultram) 50 mg PO TID PRN PRN Reason: Pain, moderate (4-7) Last Admin: 08/10/16 10:26 Dose: 50 mg - Labs Labs: 08/07/16 10:56 08/07/16 10:56 - Constitutional Appears: Non-toxic, No Acute Distress, Unkempt - Head Exam Head Exam: ATRAUMATIC, NORMAL INSPECTION - Eye Exam Eye Exam: EOMI - ENT Exam ENT Exam: Mucous Membranes Moist - Respiratory Exam Respiratory Exam: Clear to Ausculation Bilateral, NORMAL BREATHING PATTERN. absent: Accessory Muscle Use, Rales, Rhonchi, Wheezes, Respiratory Distress - Cardiovascular Exam Cardiovascular Exam: REGULAR RHYTHM, +S1, +S2 - GI/Abdominal Exam GI & Abdominal Exam: Soft, Normal Bowel Sounds. absent: Distended, Firm, Guarding, Tenderness - Extremities Exam Extremities Exam: Normal Inspection. absent: Calf Tenderness Additional comments: skin changes b/l lower ext - Back Exam Back Exam: NORMAL INSPECTION. absent: CVA tenderness (L), CVA tenderness (R), paraspinal tenderness - Neurological Exam Neurological Exam: Alert, Awake, Oriented x3 - Psychiatric Exam Psychiatric exam: Normal Affect, Normal Mood - Skin Skin Exam: Dry, Intact, Normal Color, Warm Assessment and Plan - Assessment and Plan (Free Text) Assessment: This is a 71 yo male presenting with Plan: Fracture of tibia, proximal, right, closed; pain management and physical therapy Continue physical therapy; goal is for use of cane per ortho. Cane present at bedside Patient is progressively weight bearing. No ortho intervention needed at this time. Continue to try to get a facility to accept patient with ambulatory cane. Tylenol 650 mg PO Q6 PRN mild pain Tramadol 50 mg PO TID PRN. Patient instructed to ask for pain medication when necessary. continue lidocaine patch Daily physical therapy BL Hip/Pelvis Xray: 07/30 No acute fracture. 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 No change from previous image on 03/28 L knee x-ray: severe osteopenia. Sclerotic changes about the posterior proximal tibia may relate to a sclerotic healing response of a prior stress fracture here. no tibial plateau depressed fracture. The sclerosis is perceived on the prior 04/21 study; no interval pathology appreciated between 2 exams. If symptoms worsen consider MRI. 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 imaging every [address] scan in 03/2016, should be monitored in September, Sacral decubitus- resolved Out of bed into chair daily Recommendations for silvadene creme to affected buttocks area History of Urinary Tract Infection Continue to monitor Most recent 4/13 Currently asymptomatic Seborrheic Dermatitis Continue Ketoconazole 2% to affected areas of face BID and Ketoconazole 2% Shampoo to hair twice weekly Cont to monitor progression Soft Stools f/u stool cultures as needed + leukocytes in stool c.diff. - negative hold miralax for now Prophylactic Measure Labs weekly on Sunday Lovenox 40mg SC daily Pepcid 20mg PO BID Patient is homeless. Used to stay with friend, but no longer welcome there. Goal is to walk with cane so he can go to a [facility] (will not qualify with a walker) Pt pending transfer, awaiting placement <Parker Cantu - Last Filed: 08/23/16 14:18> Objective - Vital Signs/Intake and Output Vital Signs (last 24 hours): Temp Pulse Resp BP Pulse Ox 98.5 F 82 20 109/69 97 08/23/16 08:00 08/23/16 08:00 08/23/16 08:00 08/23/16 08:00 08/23/16 08:00 Intake and Output: 08/23/16 08/23/16 06:59 18:59 Intake Total 810 400 Balance 810 400 - Medications Medications: Current Medications Acetaminophen (Tylenol 325mg Tab) 650 mg PO Q6 PRN PRN Reason: Pain, Mild (1-3) Last Admin: 08/23/16 09:12 Dose: 650 mg Bisacodyl (Dulcolax) 5 mg PO Q12 PRN PRN Reason: Constipation Last Admin: 08/18/16 14:47 Dose: 5 mg Enoxaparin Sodium (Lovenox) 40 mg SC DAILY [facility] Last Admin: 08/23/16 09:12 Dose: 40 mg Famotidine (Pepcid) 20 mg PO BID [facility] Last Admin: 08/23/16 09:12 Dose: 20 mg Lidocaine (Lidoderm) 1 ea TD DAILY [facility] Last Admin: 08/23/16 09:13 Dose: 1 ea Polyethylene Glycol (Miralax) 17 gm PO DAILY [facility] Last Admin: 08/21/16 09:12 Dose: Not Given Simethicone (Mylicon Chew Tab) 80 mg PO QID PRN PRN Reason: GI distress Last Admin: 08/22/16 09:42 Dose: 80 mg Tamsulosin HCl (Flomax) 0.8 mg PO DAILY [facility] Last Admin: 08/23/16 09:11 Dose: 0.8 mg Tramadol HCl (Ultram) 50 mg PO TID PRN PRN Reason: Pain, moderate (4-7) Last Admin: 08/23/16 09:11 Dose: 50 mg - Labs Labs: 08/21/16 11:16 08/21/16 11:16 Attending/Attestation - Attestation I have personally seen and examined this patient.: Yes I have fully participated in the care of the patient.: Yes I have reviewed all pertinent clinical information, including history, physical exam and plan: Yes Notes (Text): Patient Seen and examined with the resident. Agree with the resident's evaluation, assessment and plan. Fracture of tibia, proximal, right, closed; pain management and physical therapy Continue physical therapy; goal is for use of cane per ortho. Cane present bedside Gait Instability; will continue with PT/OT 8 weeks of immobilization and protected WB as per ortho BPH Flomax 0.8 mg PO daily
--- NOTE | 2016-08-11 07:34 | CP.PCM.PN ---
<Varsha Esquivel - Last Filed: 08/11/16 07:33> Subjective - Date & Time of Evaluation Date of Evaluation: 08/11/16 Time of Evaluation: 07:00 - Subjective Subjective: Medicine Note for Dr. Garcia, Pt seen and examined at bedside. Nursing reports no acute events overnight. He reports continued hip pain and right sided leg pain, which is well controlled on current pain regimen. Nursing staff reports pt has been having Physical Therapy daily, and is able to walk with a walker. Pt reports he has been tolerating diet and moving bowel without difficulty. He denied fever, chills, headache, chest pain, abdominal pain. Objective - Vital Signs/Intake and Output Vital Signs (last 24 hours): Temp Pulse Resp BP Pulse Ox 98.1 F 79 20 116/68 98 08/11/16 00:12 08/11/16 00:12 08/11/16 00:12 08/11/16 00:12 08/11/16 00:12 Intake and Output: 08/11/16 08/11/16 06:59 18:59 Intake Total 400 Balance 400 - Medications Medications: Current Medications Acetaminophen (Tylenol 325mg Tab) 650 mg PO Q6 PRN PRN Reason: Pain, Mild (1-3) Enoxaparin Sodium (Lovenox) 40 mg SC DAILY [facility] Last Admin: 08/10/16 10:25 Dose: 40 mg Famotidine (Pepcid) 20 mg PO BID [facility] Last Admin: 08/10/16 17:51 Dose: 20 mg Lidocaine (Lidoderm) 1 ea TD DAILY [facility] Last Admin: 08/10/16 10:25 Dose: 1 ea Tamsulosin HCl (Flomax) 0.8 mg PO DAILY [facility] Last Admin: 08/10/16 10:26 Dose: 0.8 mg Tramadol HCl (Ultram) 50 mg PO TID PRN PRN Reason: Pain, moderate (4-7) Last Admin: 08/11/16 00:35 Dose: 50 mg - Labs Labs: 08/07/16 10:56 08/07/16 10:56 - Constitutional Appears: No Acute Distress - Head Exam Head Exam: NORMAL INSPECTION, NORMOCEPHALIC - ENT Exam ENT Exam: Mucous Membranes Moist - Respiratory Exam Respiratory Exam: Clear to Ausculation Bilateral, NORMAL BREATHING PATTERN. absent: Wheezes - Cardiovascular Exam Cardiovascular Exam: REGULAR RHYTHM, RRR, +S1, +S2 - GI/Abdominal Exam GI & Abdominal Exam: Soft, Normal Bowel Sounds. absent: Distended, Tenderness - Extremities Exam Extremities Exam: Normal Inspection. absent: Pedal Edema, Tenderness - Neurological Exam Neurological Exam: Alert, Awake, Oriented x3 - Skin Skin Exam: Dry, Intact, Normal Color, Warm Assessment and Plan - Assessment and Plan (Free Text) Plan: Fracture of tibia, proximal, right, closed; pain management and physical therapy Continue physical therapy; goal is for use of cane per ortho. Cane present at bedside Patient is progressively weight bearing. No ortho intervention needed at this time. Continue to try to get a facility to accept patient with ambulatory cane. Tylenol 650 mg PO Q6 PRN mild pain Tramadol 50 mg PO TID PRN. Patient instructed to ask for pain medication when necessary. continue lidocaine patch Daily physical therapy BL Hip/Pelvis Xray: 07/30 No acute fracture. 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 No change from previous image on 03/28 L knee x-ray: severe osteopenia. Sclerotic changes about the posterior proximal tibia may relate to a sclerotic healing response of a prior stress fracture here. no tibial plateau depressed fracture. The sclerosis is perceived on the prior 04/21 study; no interval pathology appreciated between 2 exams. If symptoms worsen consider MRI. 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 imaging every [address] scan in 03/2016, should be monitored in September, Sacral decubitus- resolved Out of bed into chair daily Recommendations for silvadene creme to affected buttocks area History of Urinary Tract Infection Continue to monitor Most recent 06/22 Currently asymptomatic Seborrheic Dermatitis Continue Ketoconazole 2% to affected areas of face BID and Ketoconazole 2% Shampoo to hair twice weekly Cont to monitor progression Soft Stools f/u stool cultures as needed + leukocytes in stool c.diff. - negative hold miralax for now Prophylactic Measure Labs weekly on Sunday Lovenox 40mg SC daily Pepcid 20mg PO BID Patient is homeless. Used to stay with friend, but no longer welcome there. Goal is to walk with cane so he can go to a senior care (will not qualify with a walker) Pt pending transfer, awaiting placement DW Dr. Garcia, Sierra ALVAREZ, PGY-1 <Esme Garcia V - Last Filed: 08/11/16 21:28> Objective - Vital Signs/Intake and Output Vital Signs (last 24 hours): Temp Pulse Resp BP Pulse Ox 98.7 F 80 20 111/68 97 08/11/16 16:00 08/11/16 16:00 08/11/16 16:00 08/11/16 16:00 08/11/16 16:00 Intake and Output: 08/11/16 08/12/16 18:59 06:59 Intake Total 500 Balance 500 - Medications Medications: Current Medications Acetaminophen (Tylenol 325mg Tab) 650 mg PO Q6 PRN PRN Reason: Pain, Mild (1-3) Enoxaparin Sodium (Lovenox) 40 mg SC DAILY [facility] Last Admin: 08/11/16 10:37 Dose: 40 mg Famotidine (Pepcid) 20 mg PO BID [facility] Last Admin: 08/11/16 18:52 Dose: 20 mg Lidocaine (Lidoderm) 1 ea TD DAILY [facility] Last Admin: 08/11/16 10:37 Dose: 1 ea Simethicone (Mylicon Chew Tab) 80 mg PO QID PRN PRN Reason: GI distress Last Admin: 08/11/16 15:00 Dose: 80 mg Tamsulosin HCl (Flomax) 0.8 mg PO DAILY [facility] Last Admin: 08/11/16 10:37 Dose: 0.8 mg Tramadol HCl (Ultram) 50 mg PO TID PRN PRN Reason: Pain, moderate (4-7) Last Admin: 08/11/16 00:35 Dose: 50 mg - Labs Labs: 08/07/16 10:56 08/07/16 10:56 Attending/Attestation - Attestation I have personally seen and examined this patient.: Yes I have fully participated in the care of the patient.: Yes I have reviewed all pertinent clinical information, including history, physical exam and plan: Yes Notes (Text): Patient seen, examined and case discussed with day-time resident. Patients report mild abdominal pains. Note: patient is eating at bedside: belarusian fries and hamburger. Patient started on Simethicone for symptom relief. Patient to continue working with physical therapy until he tolerates walking with cane. Per discharge planning, senior care will not allow for rolling walker. Assessment/Plan 1) Fracture of tibia, proximal, right, closed; pain management and physical therapy Continue physical therapy; goal is for use of cane per ortho. Cane present bedside Patient is progressively weight bearing. No ortho intervention needed at this time. Continue to try to get a facility to accept patient with ambulatory cane. Tylenol 650 mg PO Q6 PRN mild pain Tramadol 25mg TID PRN. Patient instructed to ask for pain when necessary. Daily physical therapy L knee x-ray: severe osteopenia. Sclerotic changes about the posterior proximal tibia may relate to a sclerotic healing response of a prior stress fracture here. no tibial plateau depressed fracture. The sclerosis is perceived on the prior 04/21 study; no interval pathology appreciated between 2 exams. If symptoms worsen consider MRI. 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 imaging every [address] scan in 03/2016, should be monitored in September, 6) Sacral decubitus- resolved Out of bed into chair daily Recommendations for silvadene creme to affected buttocks area 7) History of Urinary Tract Infection Continue to monitor Most recent 06/22 Currently asymptomatic UA negative 8) Seborrheic Dermatitis Continue Ketoconazole 2% to affected areas of face BID and Ketoconazole 2% Shampoo to hair twice weekly Cont to monitor progression 9) Soft Stools Patient is off Magnesium oxide Patient is on stool softeners 10) Prophylactic Measure Labs weekly on Sunday Lovenox 40mg SC daily Pepcid 20mg PO BID Patient is homeless. Used to stay with friend, but no longer welcome there. Goal is to walk with cane so he can go to a senior care (will not qualify with a walker) Pt pending transfer, awaiting placement PT (08/11/16): [facility]CU vs home w services and knee brace; currently working with physical therapy with single point cane Disposition * Patient will need to be ambulatory with cane to be permitted to homeless senior care. * Aggressive Physical therapy at this time until patient is stable from PT on cane * Follow-up with physical therapy regarding knee immobilizer if permitted in [place]
[2016-08-11] MEDS: Enoxaparin 40 mg Syringe SC SCH (10:37)
[2016-08-11] MEDS: Lidocaine 5% Patch TD SCH (10:37)
--- NOTE | 2016-08-11 10:56 | CP.PCM.PN ---
Subjective - Date & Time of Evaluation Date of Evaluation: 08/11/16 Time of Evaluation: 10:52 - Subjective Subjective: Patient with RLE pain, no change, no new complaints. PT notes appreciated. Objective - Vital Signs/Intake and Output Vital Signs (last 24 hours): Temp Pulse Resp BP Pulse Ox 97.8 F 71 20 118/74 97 08/11/16 08:15 08/11/16 08:15 08/11/16 08:15 08/11/16 08:15 08/11/16 08:15 Intake and Output: 08/11/16 08/11/16 06:59 18:59 Intake Total 400 Balance 400 - Medications Medications: Current Medications Acetaminophen (Tylenol 325mg Tab) 650 mg PO Q6 PRN PRN Reason: Pain, Mild (1-3) Enoxaparin Sodium (Lovenox) 40 mg SC DAILY [facility] Last Admin: 08/11/16 10:37 Dose: 40 mg Famotidine (Pepcid) 20 mg PO BID [facility] Last Admin: 08/11/16 10:38 Dose: 20 mg Lidocaine (Lidoderm) 1 ea TD DAILY [facility] Last Admin: 08/11/16 10:37 Dose: 1 ea Tamsulosin HCl (Flomax) 0.8 mg PO DAILY [facility] Last Admin: 08/11/16 10:37 Dose: 0.8 mg Tramadol HCl (Ultram) 50 mg PO TID PRN PRN Reason: Pain, moderate (4-7) Last Admin: 08/11/16 00:35 Dose: 50 mg - Labs Labs: 08/07/16 10:56 08/07/16 10:56 - Extremities Exam Additional comments: RLE: slowly improving strength and ROM, sensation intact, +DP/PT pulses, calves soft NT neg homans Assessment and Plan (1) Acetabular protrusion Assessment & Plan: stable no ortho intervention planned as per previous notes d/w Dr. Pino, agrees with above Status: Chronic (2) Fracture of tibia, proximal, right, closed Assessment & Plan: healed PT/OT awaiting placement in [place] [facility], pending ambulation with cane as no other assistive allowed patient can use knee immobilizer for ambulation as per PT request if this will facilitate ambulation and discharge, social worker health services to check to see if knee immobilizer allowed at [facility]. ortho stable for discharge, pending placement Status: Chronic
[2016-08-11] MEDS: Simethicone 80 mg Chewtab PO PRN (15:00)
[2016-08-11] MEDS ORDERED: Bisacodyl 5mg EC Tab PO ONE (19:09)
--- NOTE | 2016-08-12 00:40 | CP.PCM.PN ---
<Kimberly Ken - Last Filed: 08/12/16 05:14> Subjective - Date & Time of Evaluation Date of Evaluation: 08/12/16 Time of Evaluation: 00:10 - Subjective Subjective: Pt seen and examined at bedside. Nursing reports no acute events overnight. He reports continued hip pain and right sided leg pain, which is well controlled on current pain regimen. Nursing staff reports pt has been having Physical Therapy daily, and is able to walk with a walker. Pt reports he has been tolerating diet and moving bowel without difficulty. He denied fever, chills, headache, chest pain, abdominal pain. Objective - Vital Signs/Intake and Output Vital Signs (last 24 hours): Temp Pulse Resp BP Pulse Ox 98 F 79 18 108/69 99 08/12/16 00:12 08/12/16 00:12 08/12/16 00:12 08/12/16 00:12 08/12/16 00:12 Intake and Output: 08/11/16 08/12/16 18:59 06:59 Intake Total 500 250 Balance 500 250 - Medications Medications: Current Medications Acetaminophen (Tylenol 325mg Tab) 650 mg PO Q6 PRN PRN Reason: Pain, Mild (1-3) Enoxaparin Sodium (Lovenox) 40 mg SC DAILY [facility] Last Admin: 08/11/16 10:37 Dose: 40 mg Famotidine (Pepcid) 20 mg PO BID [facility] Last Admin: 08/11/16 18:52 Dose: 20 mg Lidocaine (Lidoderm) 1 ea TD DAILY [facility] Last Admin: 08/11/16 10:37 Dose: 1 ea Simethicone (Mylicon Chew Tab) 80 mg PO QID PRN PRN Reason: GI distress Last Admin: 08/11/16 15:00 Dose: 80 mg Tamsulosin HCl (Flomax) 0.8 mg PO DAILY [facility] Last Admin: 08/11/16 10:37 Dose: 0.8 mg Tramadol HCl (Ultram) 50 mg PO TID PRN PRN Reason: Pain, moderate (4-7) Last Admin: 08/11/16 21:38 Dose: 50 mg - Labs Labs: 08/07/16 10:56 08/07/16 10:56 - Constitutional Appears: Non-toxic, No Acute Distress - Head Exam Head Exam: ATRAUMATIC, NORMAL INSPECTION - Eye Exam Eye Exam: EOMI, Normal appearance, PERRL Pupil Exam: NORMAL ACCOMODATION - ENT Exam ENT Exam: Mucous Membranes Moist - Respiratory Exam Respiratory Exam: Clear to Ausculation Bilateral, NORMAL BREATHING PATTERN. absent: Respiratory Distress - Cardiovascular Exam Cardiovascular Exam: REGULAR RHYTHM, +S1, +S2 - GI/Abdominal Exam GI & Abdominal Exam: Soft, Normal Bowel Sounds. absent: Distended, Firm, Guarding, Tenderness - Back Exam Back Exam: NORMAL INSPECTION. absent: CVA tenderness (L), CVA tenderness (R), paraspinal tenderness - Neurological Exam Neurological Exam: Alert, Awake, Oriented x3 - Psychiatric Exam Psychiatric exam: Normal Affect, Normal Mood - Skin Skin Exam: Normal Color, Warm Assessment and Plan - Assessment and Plan (Free Text) Assessment: Assessment/Plan 1) Fracture of tibia, proximal, right, closed; pain management and physical therapy Continue physical therapy; goal is for use of cane per ortho. Cane present bedside Patient is progressively weight bearing. No ortho intervention needed at this time. Continue to try to get a facility to accept patient with ambulatory cane. Tylenol 650 mg PO Q6 PRN mild pain Tramadol 25mg TID PRN. Patient instructed to ask for pain when necessary. Daily physical therapy L knee x-ray: severe osteopenia. Sclerotic changes about the posterior proximal tibia may relate to a sclerotic healing response of a prior stress fracture here. no tibial plateau depressed fracture. The sclerosis is perceived on the prior 10 study; no interval pathology appreciated between 2 exams. If symptoms worsen consider MRI. 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 imaging every [address] scan in 03/2016, should be monitored in September, 6) Sacral decubitus- resolved Out of bed into chair daily Recommendations for silvadene creme to affected buttocks area 7) History of Urinary Tract Infection Continue to monitor Most recent 06/22 Currently asymptomatic UA negative 8) Seborrheic Dermatitis Continue Ketoconazole 2% to affected areas of face BID and Ketoconazole 2% Shampoo to hair twice weekly Cont to monitor progression 9) Soft Stools Patient is off Magnesium oxide Patient is on stool softeners 10) Prophylactic Measure Labs weekly on Sunday Lovenox 40mg SC daily Pepcid 20mg PO BID Patient is homeless. Used to stay with friend, but no longer welcome there. Goal is to walk with cane so he can go to a halfway (will not qualify with a walker) Pt pending transfer, awaiting placement PT (08/11/16): TCU vs home w services and knee brace; currently working with physical therapy with single point cane Disposition * Patient will need to be ambulatory with cane to be permitted to homeless halfway. * Aggressive Physical therapy at this time until patient is stable from PT on cane * Follow-up with physical therapy regarding knee immobilizer if permitted in [place] <Parker Cantu - Last Filed: 08/23/16 14:19> Objective - Vital Signs/Intake and Output Vital Signs (last 24 hours): Temp Pulse Resp BP Pulse Ox 98.5 F 82 20 109/69 97 08/23/16 08:00 08/23/16 08:00 08/23/16 08:00 08/23/16 08:00 08/23/16 08:00 Intake and Output: 08/23/16 08/23/16 06:59 18:59 Intake Total 810 400 Balance 810 400 - Medications Medications: Current Medications Acetaminophen (Tylenol 325mg Tab) 650 mg PO Q6 PRN PRN Reason: Pain, Mild (1-3) Last Admin: 08/23/16 09:12 Dose: 650 mg Bisacodyl (Dulcolax) 5 mg PO Q12 PRN PRN Reason: Constipation Last Admin: 08/18/16 14:47 Dose: 5 mg Enoxaparin Sodium (Lovenox) 40 mg SC DAILY [facility] Last Admin: 08/23/16 09:12 Dose: 40 mg Famotidine (Pepcid) 20 mg PO BID [facility] Last Admin: 08/23/16 09:12 Dose: 20 mg Lidocaine (Lidoderm) 1 ea TD DAILY [facility] Last Admin: 08/23/16 09:13 Dose: 1 ea Polyethylene Glycol (Miralax) 17 gm PO DAILY [facility] Last Admin: 08/21/16 09:12 Dose: Not Given Simethicone (Mylicon Chew Tab) 80 mg PO QID PRN PRN Reason: GI distress Last Admin: 08/22/16 09:42 Dose: 80 mg Tamsulosin HCl (Flomax) 0.8 mg PO DAILY [facility] Last Admin: 08/23/16 09:11 Dose: 0.8 mg Tramadol HCl (Ultram) 50 mg PO TID PRN PRN Reason: Pain, moderate (4-7) Last Admin: 08/23/16 09:11 Dose: 50 mg - Labs Labs: 08/21/16 11:16 08/21/16 11:16 Attending/Attestation - Attestation I have personally seen and examined this patient.: Yes I have fully participated in the care of the patient.: Yes I have reviewed all pertinent clinical information, including history, physical exam and plan: Yes Notes (Text): Patient Seen and examined with the resident. Agree with the resident's evaluation, assessment and plan. Fracture of tibia, proximal, right, closed; pain management and physical therapy Continue physical therapy; goal is for use of cane per ortho. Cane present bedside Gait Instability; will continue with PT/OT 8 weeks of immobilization and protected WB as per ortho BPH Flomax 0.8 mg PO daily
[2016-08-12] MEDS: Enoxaparin 40 mg Syringe SC SCH (10:16)
[2016-08-12] MEDS: Lidocaine 5% Patch TD SCH (10:17)
[2016-08-12] MEDS ORDERED: Magnesium Citrate Oral SOL (300 ml) PO ONE (11:17)
--- NOTE | 2016-08-13 01:54 | CP.PCM.PN ---
<Kimberly Ken - Last Filed: 08/13/16 07:09> Subjective - Date & Time of Evaluation Date of Evaluation: 08/13/16 Time of Evaluation: 00:00 - Subjective Subjective: Pt seen and examined at bedside. Nursing reports no acute events overnight. He reports continued hip pain and right sided leg pain, which is well controlled on current pain regimen. Nursing staff reports pt has been having Physical Therapy daily, and is able to walk with a walker and is starting to tolerate walking with a cane. Pt reports he has been tolerating diet and moving bowel without difficulty. He denied fever, chills, headache, chest pain, abdominal pain. Objective - Vital Signs/Intake and Output Vital Signs (last 24 hours): Temp Pulse Resp BP Pulse Ox 98.3 F 79 20 123/74 96 08/12/16 23:51 08/12/16 23:51 08/12/16 23:51 08/12/16 23:51 08/12/16 23:51 Intake and Output: 08/12/16 08/13/16 18:59 06:59 Intake Total 500 300 Balance 500 300 - Medications Medications: Current Medications Acetaminophen (Tylenol 325mg Tab) 650 mg PO Q6 PRN PRN Reason: Pain, Mild (1-3) Enoxaparin Sodium (Lovenox) 40 mg SC DAILY [facility] Last Admin: 08/12/16 10:16 Dose: 40 mg Famotidine (Pepcid) 20 mg PO BID [facility] Last Admin: 08/12/16 18:25 Dose: 20 mg Lidocaine (Lidoderm) 1 ea TD DAILY [facility] Last Admin: 08/12/16 10:17 Dose: 1 ea Simethicone (Mylicon Chew Tab) 80 mg PO QID PRN PRN Reason: GI distress Last Admin: 08/11/16 15:00 Dose: 80 mg Tamsulosin HCl (Flomax) 0.8 mg PO DAILY [facility] Last Admin: 08/12/16 10:16 Dose: 0.8 mg Tramadol HCl (Ultram) 50 mg PO TID PRN PRN Reason: Pain, moderate (4-7) Last Admin: 08/12/16 21:51 Dose: 50 mg - Labs Labs: 08/07/16 10:56 08/07/16 10:56 - Constitutional Appears: Non-toxic, No Acute Distress, Chronically Ill - Head Exam Head Exam: ATRAUMATIC, NORMAL INSPECTION - Eye Exam Eye Exam: EOMI, Normal appearance - Respiratory Exam Respiratory Exam: Clear to Ausculation Bilateral, NORMAL BREATHING PATTERN. absent: Respiratory Distress - Cardiovascular Exam Cardiovascular Exam: REGULAR RHYTHM, +S1, +S2 - GI/Abdominal Exam GI & Abdominal Exam: Soft, Normal Bowel Sounds. absent: Distended, Firm, Guarding, Tenderness - Extremities Exam Extremities Exam: Normal Inspection Additional comments: chronice skin changes le b/l - Back Exam Back Exam: NORMAL INSPECTION - Neurological Exam Neurological Exam: Alert, Awake, Oriented x3 Neuro motor strength exam: Left Upper Extremity: 5, Right Upper Extremity: 5, Left Lower Extremity: 4, Right Lower Extremity: 4 - Psychiatric Exam Psychiatric exam: Normal Affect, Normal Mood - Skin Skin Exam: Dry, Intact, Normal Color, Warm Assessment and Plan - Assessment and Plan (Free Text) Assessment: 1) Fracture of tibia, proximal, right, closed; pain management and physical therapy Continue physical therapy; goal is for use of cane per ortho. Cane present bedside Patient is progressively weight bearing. No ortho intervention needed at this time. Continue to try to get a facility to accept patient with ambulatory cane. Tylenol 650 mg PO Q6 PRN mild pain Tramadol 25mg TID PRN. Patient instructed to ask for pain when necessary. Daily physical therapy L knee x-ray: severe osteopenia. Sclerotic changes about the posterior proximal tibia may relate to a sclerotic healing response of a prior stress fracture here. no tibial plateau depressed fracture. The sclerosis is perceived on the prior 04/21 study; no interval pathology appreciated between 2 exams. If symptoms worsen consider MRI. 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 imaging every [address] scan in 03/2016, should be monitored in September, 6) Sacral decubitus- resolved Out of bed into chair daily Recommendations for silvadene creme to affected buttocks area 7) History of Urinary Tract Infection Continue to monitor Most recent 06/22 Currently asymptomatic UA negative 8) Seborrheic Dermatitis Continue Ketoconazole 2% to affected areas of face BID and Ketoconazole 2% Shampoo to hair twice weekly Cont to monitor progression 9) Soft Stools Patient is off Magnesium oxide Patient is on stool softeners 10) Prophylactic Measure Labs weekly on Sunday Lovenox 40mg SC daily Pepcid 20mg PO BID Patient is homeless. Used to stay with friend, but no longer welcome there. Goal is to walk with cane so he can go to a correction (will not qualify with a walker) Pt pending transfer, awaiting placement PT (08/11/16): TCU vs home w services and knee brace; currently working with physical therapy with single point cane Disposition * Patient will need to be ambulatory with cane to be permitted to homeless correction. * Aggressive Physical therapy at this time until patient is stable from PT on cane * Follow-up with physical therapy regarding knee immobilizer if permitted in correction <Esme Garcia V - Last Filed: 08/13/16 16:34> Objective - Vital Signs/Intake and Output Vital Signs (last 24 hours): Temp Pulse Resp BP Pulse Ox 98.3 F 79 20 123/74 96 08/12/16 23:51 08/12/16 23:51 08/12/16 23:51 08/12/16 23:51 08/12/16 23:51 Intake and Output: 08/13/16 08/13/16 06:59 18:59 Intake Total 300 120 Balance 300 120 - Medications Medications: Current Medications Acetaminophen (Tylenol 325mg Tab) 650 mg PO Q6 PRN PRN Reason: Pain, Mild (1-3) Enoxaparin Sodium (Lovenox) 40 mg SC DAILY [facility] Last Admin: 08/13/16 10:03 Dose: 40 mg Famotidine (Pepcid) 20 mg PO BID [facility] Last Admin: 08/13/16 10:03 Dose: 20 mg Lidocaine (Lidoderm) 1 ea TD DAILY [facility] Last Admin: 08/13/16 10:03 Dose: 1 ea Simethicone (Mylicon Chew Tab) 80 mg PO QID PRN PRN Reason: GI distress Last Admin: 08/11/16 15:00 Dose: 80 mg Tamsulosin HCl (Flomax) 0.8 mg PO DAILY [facility] Last Admin: 08/13/16 10:03 Dose: 0.8 mg Tramadol HCl (Ultram) 50 mg PO TID PRN PRN Reason: Pain, moderate (4-7) Last Admin: 08/13/16 15:47 Dose: 50 mg - Labs Labs: 08/07/16 10:56 08/07/16 10:56 Attending/Attestation - Attestation I have personally seen and examined this patient.: Yes I have fully participated in the care of the patient.: Yes I have reviewed all pertinent clinical information, including history, physical exam and plan: Yes Notes (Text): Patient seen, examined and case discussed with day-time resident. Patients reporting chronic leg pains. Patient to continue working with physical therapy until he tolerates walking with cane. Per discharge planning, correction will not allow for rolling walker. Patient will need clearance from physical therapy with cane and/or knee immobilizer for discharge planning. Assessment/Plan 1) Fracture of tibia, proximal, right, closed; pain management and physical therapy Continue physical therapy; goal is for use of cane per ortho. Cane present bedside Patient is progressively weight bearing. No ortho intervention needed at this time. Continue to try to get a facility to accept patient with ambulatory cane. Tylenol 650 mg PO Q6 PRN mild pain Tramadol 25mg TID PRN. Patient instructed to ask for pain when necessary. Daily physical therapy L knee x-ray: severe osteopenia. Sclerotic changes about the posterior proximal tibia may relate to a sclerotic healing response of a prior stress fracture here. no tibial plateau depressed fracture. The sclerosis is perceived on the prior 04/21 study; no interval pathology appreciated between 2 exams. If symptoms worsen consider MRI. 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 imaging every [address] scan in 03/2016, should be monitored in September, 6) Sacral decubitus- resolved Out of bed into chair daily Recommendations for silvadene creme to affected buttocks area 7) History of Urinary Tract Infection Continue to monitor Most recent 06/22 Currently asymptomatic UA negative 8) Seborrheic Dermatitis Continue Ketoconazole 2% to affected areas of face BID and Ketoconazole 2% Shampoo to hair twice weekly Cont to monitor progression 9) Soft Stools Patient is off Magnesium oxide Patient is on stool softeners 10) Prophylactic Measure Labs weekly on Sunday Lovenox 40mg SC daily Pepcid 20mg PO BID Patient is homeless. Used to stay with friend, but no longer welcome there. Goal is to walk with cane so he can go to a correction (will not qualify with a walker) Pt pending transfer, awaiting placement PT (08/11/16): TCU vs home w services and knee brace; currently working with physical therapy with single point cane Disposition * Patient will need to be ambulatory with cane to be permitted to homeless correction. * Aggressive Physical therapy at this time until patient is stable from PT on cane * Follow-up with physical therapy for clearance for discharge to correction * Follow-up with case management for kneee immobilizer
[2016-08-13] MEDS: Lidocaine 5% Patch TD SCH (10:03)
[2016-08-13] MEDS: Enoxaparin 40 mg Syringe SC SCH (10:03)
--- NOTE | 2016-08-14 08:07 | CP.PCM.PN ---
<DanyelltaishaJuan Pablo - Last Filed: 08/14/16 13:50> Subjective - Date & Time of Evaluation Date of Evaluation: 08/14/16 Time of Evaluation: 08:03 - Subjective Subjective: PGY-[address] Wiggins Pt seen and examined at bedside. Nursing reports no acute events overnight. He reports continued hip pain and right sided leg pain, which is a chronic complaint. He states he is well controlled on current pain regimen. Pt is having Physical Therapy daily, and is able to walk with a walker and is starting to tolerate walking with a cane. He is tolerating diet and urinating without difficulty, and last BM was yesterday morning. He denies fever, chills, headache, chest pain, abdominal pain. Objective - Vital Signs/Intake and Output Vital Signs (last 24 hours): Temp Pulse Resp BP Pulse Ox 98 F 71 20 111/64 97 08/14/16 00:10 08/14/16 00:10 08/14/16 00:10 08/14/16 00:10 08/14/16 00:10 Intake and Output: 08/14/16 08/14/16 06:59 18:59 Intake Total 570 Balance 570 - Medications Medications: Current Medications Acetaminophen (Tylenol 325mg Tab) 650 mg PO Q6 PRN PRN Reason: Pain, Mild (1-3) Enoxaparin Sodium (Lovenox) 40 mg SC DAILY [facility] Last Admin: 08/13/16 10:03 Dose: 40 mg Famotidine (Pepcid) 20 mg PO BID [facility] Last Admin: 08/13/16 17:09 Dose: 20 mg Lidocaine (Lidoderm) 1 ea TD DAILY [facility] Last Admin: 08/13/16 10:03 Dose: 1 ea Simethicone (Mylicon Chew Tab) 80 mg PO QID PRN PRN Reason: GI distress Last Admin: 08/11/16 15:00 Dose: 80 mg Tamsulosin HCl (Flomax) 0.8 mg PO DAILY [facility] Last Admin: 08/13/16 10:03 Dose: 0.8 mg Tramadol HCl (Ultram) 50 mg PO TID PRN PRN Reason: Pain, moderate (4-7) Last Admin: 08/13/16 21:35 Dose: 50 mg - Labs Labs: 08/07/16 10:56 08/07/16 10:56 - Additional Findings Additional findings: - Constitutional Appears: Non-toxic, No Acute Distress, Chronically Ill - Head Exam Head Exam: ATRAUMATIC, NORMAL INSPECTION - Eye Exam Eye Exam: EOMI, Normal appearance - Respiratory Exam Respiratory Exam: Clear to Ausculation Bilateral, NORMAL BREATHING PATTERN. absent: Respiratory Distress - Cardiovascular Exam Cardiovascular Exam: REGULAR RHYTHM, +S1, +S2 - GI/Abdominal Exam GI & Abdominal Exam: Soft, Normal Bowel Sounds. absent: Distended, Firm, Guarding, Tenderness - Extremities Exam Extremities Exam: Normal Inspection Additional comments: chronic skin changes le b/l - Back Exam Back Exam: NORMAL INSPECTION - Neurological Exam Neurological Exam: Alert, Awake, Oriented x3 Neuro motor strength exam: Left Upper Extremity: 5, Right Upper Extremity: 5, Left Lower Extremity: 4, Right Lower Extremity: 4 - Psychiatric Exam Psychiatric exam: Normal Affect, Normal Mood - Skin Skin Exam: Dry, Intact, Normal Color, Warm Assessment and Plan - Assessment and Plan (Free Text) Plan: Assessment/Plan 1) Fracture of tibia, proximal, right, closed; pain management and physical therapy Continue physical therapy; goal is for use of cane per ortho. Cane present bedside - f/u [facility] for knee immobilizer, [facility] tolerating cane Patient is progressively weight bearing. No ortho intervention needed at this time. Continue to try to get a facility to accept patient with ambulatory cane. Tylenol 650 mg PO Q6 PRN mild pain Tramadol 25mg TID PRN. Patient instructed to ask for pain when necessary. Daily physical therapy L knee x-ray: severe osteopenia. Sclerotic changes about the posterior proximal tibia may relate to a sclerotic healing response of a prior stress fracture here. no tibial plateau depressed fracture. The sclerosis is perceived on the prior 04/21 study; no interval pathology appreciated between 2 exams. If symptoms worsen consider MRI. 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 imaging every [address] scan in 03/2016, should be monitored in September, 6) Sacral decubitus- resolved Out of bed into chair daily Recommendations for silvadene creme to affected buttocks area 7) History of Urinary Tract Infection Continue to monitor Most recent 06/22 Currently asymptomatic UA negative 8) Seborrheic Dermatitis Continue Ketoconazole 2% to affected areas of face BID and Ketoconazole 2% Shampoo to hair twice weekly Cont to monitor progression 9) Soft Stools Patient is off Magnesium oxide Patient is on stool softeners 10) Prophylactic Measure Labs weekly on Sunday Lovenox 40mg SC daily Pepcid 20mg PO BID Patient is homeless. Used to stay with friend, but no longer welcome there. Goal is to walk with cane so he can go [facility] a [facility] (will not qualify with a walker) Pt pending transfer, awaiting placement PT (08/11/16): [facility]CU vs home w services and knee brace; currently working with physical therapy with single point cane <Jose Wiggins - Last Filed: 08/14/16 17:02> Objective - Vital Signs/Intake and Output Vital Signs (last 24 hours): Temp Pulse Resp BP Pulse Ox 98.2 F 74 20 121/71 97 08/14/16 16:00 08/14/16 16:00 08/14/16 16:00 08/14/16 16:00 08/14/16 16:00 Intake and Output: 08/14/16 08/14/16 06:59 18:59 Intake Total 570 500 Balance 570 500 - Medications Medications: Current Medications Acetaminophen (Tylenol 325mg Tab) 650 mg PO Q6 PRN PRN Reason: Pain, Mild (1-3) Famotidine (Pepcid) 20 mg PO BID [facility] Last Admin: 08/14/16 11:30 Dose: 20 mg Lidocaine (Lidoderm) 1 ea TD DAILY [facility] Last Admin: 08/14/16 11:30 Dose: 1 ea Simethicone (Mylicon Chew Tab) 80 mg PO QID PRN PRN Reason: GI distress Last Admin: 08/11/16 15:00 Dose: 80 mg Tamsulosin HCl (Flomax) 0.8 mg PO DAILY [facility] Last Admin: 08/14/16 11:30 Dose: 0.8 mg Tramadol HCl (Ultram) 50 mg PO TID PRN PRN Reason: Pain, moderate (4-7) Last Admin: 08/13/16 21:35 Dose: 50 mg - Labs Labs: 08/14/16 10:58 08/14/16 10:58 Attending/Attestation - Attestation I have personally seen and examined this patient.: Yes I have fully participated in the care of the patient.: Yes I have reviewed all pertinent clinical information, including history, physical exam and plan: Yes Notes (Text): 08/14/16 17:01 Patient was seen and examined at bedside with the resident We will try to encourage ambulation with a cane. Continue physical therapy daily Discharge planning when patient is physically stronger I discussed the plan of care with the resident and agree with the above history and physical and assessment/plan by the resident.
[2016-08-14 11:13] LABS: BASO % 0.4 % (0.0-2.0); EOS # 0.1 K/uL (0.0-0.7); EOS % 1.7 % (0.0-4.0); HEMOGLOBIN 12.9 g/dL (12.0-18.0); LYMPH # 1.5 K/uL (1.0-4.3); LYMPH % 25.1 % (20.0-40.0); MEAN CELL VOLUME 94.8 fL (80.0-94.0); MEAN CORPUSCULAR HEMOGLOBIN 31.8 pg (27.0-31.0); MEAN CORPUSCULAR HGB CONC 33.6 g/dL (33.0-37.0); MEAN PLATELET VOLUME 8.2 fL (7.2-11.7); MONO # 0.7 K/uL (0.0-0.8); MONO % 10.6 % (0.0-10.0); NEUT # 3.8 K/uL (1.8-7.0); NEUT % 62.2 % (50.0-75.0); RBC 4.05 Mil/uL (4.40-5.90); RED CELL DISTRIBUTION WIDTH 13.8 % (11.5-14.5); WHITE BLOOD COUNT 6.2 K/uL (4.8-10.8)
[2016-08-14] MEDS: Enoxaparin 40 mg Syringe SC SCH (11:30)
[2016-08-14] MEDS: Lidocaine 5% Patch TD SCH (11:30)
[2016-08-14 11:32] LABS: AST/SGOT 24 U/L (17-59); GFR AFRICAN-AMERICAN > 60; GFR NON-AFRICAN AMERICAN > 60
[2016-08-14 11:33] LABS: ALT/SGPT 14 U/L (21-72); BLOOD UREA NITROGEN 14 mg/dL (9-20); CALCIUM 8.7 mg/dl (8.6-10.4)
--- NOTE | 2016-08-15 06:28 | CP.PCM.PN ---
<Juan Pablo Ny - Last Filed: 08/15/16 12:34> Subjective - Date & Time of Evaluation Date of Evaluation: 08/15/16 Time of Evaluation: 06:26 - Subjective Subjective: PGY-[address] Wiggins Pt seen and examined at bedside. Nursing reports no acute events overnight. Pt c /o right sided hip/leg pain, 2-3/10 on the severity scale, which is a chronic finding. He states he is well controlled on current pain regimen. Physical Therapy is working him on using cane to assist while walking. He is tolerating diet and urinating without difficulty, and last BM was two days ago. He denies fever, chills, headache, chest pain, abdominal pain. Objective - Vital Signs/Intake and Output Vital Signs (last 24 hours): Temp Pulse Resp BP Pulse Ox 98 F 73 20 120/66 96 08/15/16 00:19 08/15/16 00:19 08/15/16 00:19 08/15/16 00:19 08/15/16 00:19 Intake and Output: 08/14/16 08/15/16 18:59 06:59 Intake Total 500 300 Balance 500 300 - Medications Medications: Current Medications Acetaminophen (Tylenol 325mg Tab) 650 mg PO Q6 PRN PRN Reason: Pain, Mild (1-3) Enoxaparin Sodium (Lovenox) 40 mg SC DAILY [facility] Famotidine (Pepcid) 20 mg PO BID [facility] Last Admin: 08/14/16 17:30 Dose: 20 mg Lidocaine (Lidoderm) 1 ea TD DAILY [facility] Last Admin: 08/14/16 11:30 Dose: 1 ea Simethicone (Mylicon Chew Tab) 80 mg PO QID PRN PRN Reason: GI distress Last Admin: 08/11/16 15:00 Dose: 80 mg Tamsulosin HCl (Flomax) 0.8 mg PO DAILY [facility] Last Admin: 08/14/16 11:30 Dose: 0.8 mg Tramadol HCl (Ultram) 50 mg PO TID PRN PRN Reason: Pain, moderate (4-7) Last Admin: 08/13/16 21:35 Dose: 50 mg - Labs Labs: 08/14/16 10:58 08/14/16 10:58 - Additional Findings Additional findings: - Constitutional Appears: Non-toxic, No Acute Distress, Chronically Ill - Head Exam Head Exam: ATRAUMATIC, NORMAL INSPECTION - Eye Exam Eye Exam: EOMI, Normal appearance - Respiratory Exam Respiratory Exam: Clear to Ausculation Bilateral, NORMAL BREATHING PATTERN. absent: Respiratory Distress - Cardiovascular Exam Cardiovascular Exam: REGULAR RHYTHM, +S1, +S2 - GI/Abdominal Exam GI & Abdominal Exam: Soft, Normal Bowel Sounds. absent: Distended, Firm, Guarding, Tenderness - Extremities Exam Extremities Exam: Normal Inspection Additional comments: chronic skin changes le b/l - Back Exam Back Exam: NORMAL INSPECTION - Neurological Exam Neurological Exam: Alert, Awake, Oriented x3 Neuro motor strength exam: Left Upper Extremity: 5, Right Upper Extremity: 5, Left Lower Extremity: 4, Right Lower Extremity: 4 - Psychiatric Exam Psychiatric exam: Normal Affect, Normal Mood - Skin Skin Exam: Dry, Intact, Normal Color, Warm Assessment and Plan - Assessment and Plan (Free Text) Plan: 1) Fracture of tibia, proximal, right, closed; pain management and physical therapy Continue physical therapy; goal is for use of cane per ortho. Cane present bedside - f/u [facility] for knee immobilizer, [place] be d[place]c [place] [facility] when tolerating cane Patient is progressively weight bearing. No ortho intervention needed at this time. Continue to try to get a facility to accept patient with ambulatory cane. Tylenol 650 mg PO Q6 PRN mild pain Tramadol 25mg TID PRN. Patient instructed to ask for pain when necessary. Daily physical therapy L knee x-ray: severe osteopenia. Sclerotic changes about the posterior proximal tibia may relate to a sclerotic healing response of a prior stress fracture here. no tibial plateau depressed fracture. The sclerosis is perceived on the prior 04/21 study; no interval pathology appreciated between 2 exams. If symptoms worsen consider MRI. 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 imaging every [address] scan in 03/2016, should be monitored in September, 6) Sacral decubitus- resolved Out of bed into chair daily Recommendations for silvadene creme to affected buttocks area 7) History of Urinary Tract Infection Continue to monitor Most recent 06/22 Currently asymptomatic UA negative 8) Seborrheic Dermatitis Continue Ketoconazole 2% to affected areas of face BID and Ketoconazole 2% Shampoo to hair twice weekly Cont to monitor progression 9) Soft Stools Patient is off Magnesium oxide Patient is on stool softeners 10) Prophylactic Measure Labs weekly on Sunday Lovenox 40mg SC daily Pepcid 20mg PO BID Patient is homeless. Used to stay with friend, but no longer welcome there. Goal is to walk with cane so he can go to a [place] [facility] (will not qualify with a walker) Pt pending transfer, awaiting placement PT (08/15/16): home w services and knee brace; currently working with physical therapy with single point cane Juan Pablo Ny PGY-1 <Jose Wiggins M - Last Filed: 08/15/16 14:39> Objective - Vital Signs/Intake and Output Vital Signs (last 24 hours): Temp Pulse Resp BP Pulse Ox 98 F 72 20 128/77 97 08/15/16 08:15 08/15/16 08:15 08/15/16 08:15 08/15/16 08:15 08/15/16 08:15 Intake and Output: 08/15/16 08/15/16 06:59 18:59 Intake Total 300 Balance 300 - Medications Medications: Current Medications Acetaminophen (Tylenol 325mg Tab) 650 mg PO Q6 PRN PRN Reason: Pain, Mild (1-3) Enoxaparin Sodium (Lovenox) 40 mg SC DAILY [facility] Last Admin: 08/15/16 10:28 Dose: 40 mg Famotidine (Pepcid) 20 mg PO BID [facility] Last Admin: 08/15/16 10:29 Dose: 20 mg Lidocaine (Lidoderm) 1 ea TD DAILY [facility] Last Admin: 08/15/16 10:29 Dose: 1 ea Simethicone (Mylicon Chew Tab) 80 mg PO QID PRN PRN Reason: GI distress Last Admin: 08/11/16 15:00 Dose: 80 mg Tamsulosin HCl (Flomax) 0.8 mg PO DAILY [facility] Last Admin: 08/15/16 10:28 Dose: 0.8 mg Tramadol HCl (Ultram) 50 mg PO TID PRN PRN Reason: Pain, moderate (4-7) Last Admin: 08/13/16 21:35 Dose: 50 mg - Labs Labs: 08/14/16 10:58 08/14/16 10:58 Attending/Attestation - Attestation I have personally seen and examined this patient.: Yes I have fully participated in the care of the patient.: Yes I have reviewed all pertinent clinical information, including history, physical exam and plan: Yes Notes (Text): 08/15/16 14:39 Patient was seen and examined at bedside with the resident Continue physical therapy Continue current medical management I discussed the plan of care with the resident and agree with the history and physical and assessment/plan by the resident.
[2016-08-15] MEDS: Enoxaparin 40 mg Syringe SC SCH (10:28)
[2016-08-15] MEDS: Lidocaine 5% Patch TD SCH (10:29)
--- NOTE | 2016-08-16 06:49 | CP.PCM.PN ---
Addendum entered and electronically signed by Juan Pablo Ny DO 08/16/16 15:24: Physical therapy did work with pt today. Note states: Pt tolerated ambulation with standard cane but complained of pain on right thigh/knee throughout. PT reports he was able to slowly walk 12 stairs yesterday. Order for knee immobilizer was placed in chart. Original Note: <Juan Pablo Ny - Last Filed: 08/16/16 15:20> Subjective - Date & Time of Evaluation Date of Evaluation: 08/16/16 Time of Evaluation: 06:47 - Subjective Subjective: PGY-[address] Wiggins Pt seen and examined at bedside. Nursing reports no acute events overnight. Pt c /o low-grade, persistent right sided hip/leg pain which is a chronic finding. He states he is well controlled on current pain regimen and refused his pain medication last night. Physical Therapy is working with him daily on using cane , but pt refused PT today. He is tolerating diet and urinating without difficulty, and last BM was yesterday. He denies fever, chills, headache, chest pain, abdominal pain. Objective - Vital Signs/Intake and Output Vital Signs (last 24 hours): Temp Pulse Resp BP Pulse Ox 97.3 F L 71 20 103/65 97 08/16/16 00:00 08/16/16 00:00 08/16/16 00:00 08/16/16 00:00 08/16/16 00:00 Intake and Output: 08/15/16 08/16/16 18:59 06:59 Intake Total 300 Balance 300 - Medications Medications: Current Medications Acetaminophen (Tylenol 325mg Tab) 650 mg PO Q6 PRN PRN Reason: Pain, Mild (1-3) Enoxaparin Sodium (Lovenox) 40 mg SC DAILY [facility] Last Admin: 08/15/16 10:28 Dose: 40 mg Famotidine (Pepcid) 20 mg PO BID [facility] Last Admin: 08/15/16 18:19 Dose: 20 mg Lidocaine (Lidoderm) 1 ea TD DAILY [facility] Last Admin: 08/15/16 10:29 Dose: 1 ea Simethicone (Mylicon Chew Tab) 80 mg PO QID PRN PRN Reason: GI distress Last Admin: 08/11/16 15:00 Dose: 80 mg Tamsulosin HCl (Flomax) 0.8 mg PO DAILY [facility] Last Admin: 08/15/16 10:28 Dose: 0.8 mg Tramadol HCl (Ultram) 50 mg PO TID PRN PRN Reason: Pain, moderate (4-7) Last Admin: 08/15/16 23:11 Dose: 50 mg - Labs Labs: 08/14/16 10:58 08/14/16 10:58 - Additional Findings Additional findings: - Constitutional Appears: Non-toxic, No Acute Distress, Chronically Ill - Head Exam Head Exam: ATRAUMATIC, NORMAL INSPECTION - Eye Exam Eye Exam: EOMI, Normal appearance - Respiratory Exam Respiratory Exam: Clear to Ausculation Bilateral, NORMAL BREATHING PATTERN. absent: Respiratory Distress - Cardiovascular Exam Cardiovascular Exam: REGULAR RHYTHM, +S1, +S2 - GI/Abdominal Exam GI & Abdominal Exam: Soft, Normal Bowel Sounds. absent: Distended, Firm, Guarding, Tenderness - Extremities Exam Extremities Exam: Normal Inspection Additional comments: chronic skin changes le b/l - Back Exam Back Exam: NORMAL INSPECTION - Neurological Exam Neurological Exam: Alert, Awake, Oriented x3 Neuro motor strength exam: Left Upper Extremity: 5, Right Upper Extremity: 5, Left Lower Extremity: 4, Right Lower Extremity: 4 - Psychiatric Exam Psychiatric exam: Normal Affect, Normal Mood - Skin Skin Exam: Dry, Intact, Normal Color, Warm Assessment and Plan - Assessment and Plan (Free Text) Plan: 1) Fracture of tibia, proximal, right, closed; pain management and physical therapy Continue physical therapy; goal is for use of cane per ortho. Cane present bedside - knee immobilizer/brace ordered, can be d/c to skilled nursing when tolerating cane Patient is progressively weight bearing. No ortho intervention needed at this time. Continue to try to get a facility to accept patient with ambulatory cane. Tylenol 650 mg PO Q6 PRN mild pain Tramadol 25mg TID PRN. Patient instructed to ask for pain when necessary. Daily physical therapy L knee x-ray: severe osteopenia. Sclerotic changes about the posterior proximal tibia may relate to a sclerotic healing response of a prior stress fracture here. no tibial plateau depressed fracture. The sclerosis is perceived on the prior 04/21 study; no interval pathology appreciated between 2 exams. If symptoms worsen consider MRI. 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 imaging every [address] scan in 03/2016, should be monitored in September, 6) Sacral decubitus- resolved Out of bed into chair daily Recommendations for silvadene creme to affected buttocks area 7) History of Urinary Tract Infection Continue to monitor Most recent 06/22 Currently asymptomatic UA negative 8) Seborrheic Dermatitis Continue Ketoconazole 2% to affected areas of face BID and Ketoconazole 2% Shampoo to hair twice weekly Cont to monitor progression 9) Soft Stools Patient is off Magnesium oxide Patient is on stool softeners 10) Prophylactic Measure Labs weekly on Sunday Lovenox 40mg SC daily Pepcid 20mg PO BID Patient is homeless. Used to stay with friend, but no longer welcome there. Goal is to walk with cane so he can go to a skilled nursing (will not qualify with a walker) Pt pending transfer, awaiting placement PT (08/15/16): home w services and knee brace; currently working with physical therapy with single point cane Juan Pablo Ny PGY-1 <Jose Wiggins - Last Filed: 08/16/16 16:53> Objective - Vital Signs/Intake and Output Vital Signs (last 24 hours): Temp Pulse Resp BP Pulse Ox 97.7 F 76 20 115/64 97 08/16/16 07:00 08/16/16 07:00 08/16/16 07:00 08/16/16 07:00 08/16/16 07:00 Intake and Output: 08/16/16 08/16/16 06:59 18:59 Intake Total 240 Balance 240 - Medications Medications: Current Medications Acetaminophen (Tylenol 325mg Tab) 650 mg PO Q6 PRN PRN Reason: Pain, Mild (1-3) Last Admin: 08/16/16 10:13 Dose: 650 mg Enoxaparin Sodium (Lovenox) 40 mg SC DAILY [facility] Last Admin: 08/16/16 10:12 Dose: 40 mg Famotidine (Pepcid) 20 mg PO BID [facility] Last Admin: 08/16/16 10:13 Dose: 20 mg Lidocaine (Lidoderm) 1 ea TD DAILY [facility] Last Admin: 08/16/16 10:12 Dose: 1 ea Simethicone (Mylicon Chew Tab) 80 mg PO QID PRN PRN Reason: GI distress Last Admin: 08/11/16 15:00 Dose: 80 mg Tamsulosin HCl (Flomax) 0.8 mg PO DAILY [facility] Last Admin: 08/16/16 10:12 Dose: 0.8 mg Tramadol HCl (Ultram) 50 mg PO TID PRN PRN Reason: Pain, moderate (4-7) Last Admin: 08/16/16 10:13 Dose: 50 mg - Labs Labs: 08/14/16 10:58 08/14/16 10:58 Attending/Attestation - Attestation I have personally seen and examined this patient.: Yes I have fully participated in the care of the patient.: Yes I have reviewed all pertinent clinical information, including history, physical exam and plan: Yes Notes (Text): 08/16/16 16:53 Patient was seen and examined at bedside I reviewed patient's medical records, labs, imaging studies and I agree with the above history and physical and assessment/plan by the resident.
[2016-08-16] MEDS: Enoxaparin 40 mg Syringe SC SCH (10:12)
[2016-08-16] MEDS: Lidocaine 5% Patch TD SCH (10:12)
--- NOTE | 2016-08-17 07:00 | CP.PCM.PN ---
<Juan Pablo Ny - Last Filed: 08/17/16 11:35> Subjective - Date & Time of Evaluation Date of Evaluation: 08/17/16 Time of Evaluation: 06:58 - Subjective Subjective: PGY-[address] Wiggins Pt seen and examined at bedside. Nursing reports no acute events overnight. Right sided hip/leg pain persists, but pt states lidoderm patch and oral pain medication have him well-controlled. Physical Therapy continues to work with him on getting comfortable with using cane. He is tolerating diet and urinating without difficulty, and last BM was this AM. He denies fever, chills, headache, chest pain, abdominal pain. Objective - Vital Signs/Intake and Output Vital Signs (last 24 hours): Temp Pulse Resp BP Pulse Ox 97.6 F 75 20 119/76 96 08/17/16 00:11 08/17/16 00:11 08/17/16 00:11 08/17/16 00:11 08/17/16 00:11 Intake and Output: 08/16/16 08/17/16 18:59 06:59 Intake Total 240 Balance 240 - Medications Medications: Current Medications Acetaminophen (Tylenol 325mg Tab) 650 mg PO Q6 PRN PRN Reason: Pain, Mild (1-3) Last Admin: 08/16/16 10:13 Dose: 650 mg Enoxaparin Sodium (Lovenox) 40 mg SC DAILY [facility] Last Admin: 08/16/16 10:12 Dose: 40 mg Famotidine (Pepcid) 20 mg PO BID [facility] Last Admin: 08/16/16 17:18 Dose: 20 mg Lidocaine (Lidoderm) 1 ea TD DAILY [facility] Last Admin: 08/16/16 10:12 Dose: 1 ea Simethicone (Mylicon Chew Tab) 80 mg PO QID PRN PRN Reason: GI distress Last Admin: 08/11/16 15:00 Dose: 80 mg Tamsulosin HCl (Flomax) 0.8 mg PO DAILY [facility] Last Admin: 08/16/16 10:12 Dose: 0.8 mg Tramadol HCl (Ultram) 50 mg PO TID PRN PRN Reason: Pain, moderate (4-7) Last Admin: 08/16/16 21:42 Dose: 50 mg - Labs Labs: 08/14/16 10:58 08/14/16 10:58 - Additional Findings Additional findings: - Constitutional Appears: Non-toxic, No Acute Distress, Chronically Ill - Head Exam Head Exam: ATRAUMATIC, NORMAL INSPECTION - Eye Exam Eye Exam: EOMI, Normal appearance - Respiratory Exam Respiratory Exam: Clear to Ausculation Bilateral, NORMAL BREATHING PATTERN. absent: Respiratory Distress - Cardiovascular Exam Cardiovascular Exam: REGULAR RHYTHM, +S1, +S2 - GI/Abdominal Exam GI & Abdominal Exam: Soft, Normal Bowel Sounds. absent: Distended, Firm, Guarding, Tenderness - Extremities Exam Extremities Exam: Normal Inspection Additional comments: chronic skin changes le b/l - Back Exam Back Exam: NORMAL INSPECTION - Neurological Exam Neurological Exam: Alert, Awake, Oriented x3 Neuro motor strength exam: Left Upper Extremity: 5, Right Upper Extremity: 5, Left Lower Extremity: 4, Right Lower Extremity: 4 - Psychiatric Exam Psychiatric exam: Normal Affect, Normal Mood - Skin Skin Exam: Dry, Intact, Normal Color, Warm Assessment and Plan - Assessment and Plan (Free Text) Plan: 1) Fracture of tibia, proximal, right, closed; pain management and physical therapy Continue physical therapy; goal is for use of cane per ortho. Cane present bedside - knee immobilizer/brace ordered, can be d/c to prison when tolerating cane Patient is progressively weight bearing. No ortho intervention needed at this time. Continue to try to get a facility to accept patient with ambulatory cane. Tylenol 650 mg PO Q6 PRN mild pain Tramadol 25mg TID PRN. Patient instructed to ask for pain when necessary. Daily physical therapy L knee x-ray: severe osteopenia. Sclerotic changes about the posterior proximal tibia may relate to a sclerotic healing response of a prior stress fracture here. no tibial plateau depressed fracture. The sclerosis is perceived on the prior 04/21 study; no interval pathology appreciated between 2 exams. If symptoms worsen consider MRI. 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 imaging every [address] scan in 03/2016, should be monitored in September, 6) Sacral decubitus- resolved Out of bed into chair daily Recommendations for silvadene creme to affected buttocks area 7) History of Urinary Tract Infection Continue to monitor Most recent 06/22 Currently asymptomatic UA negative 8) Seborrheic Dermatitis Continue Ketoconazole 2% to affected areas of face BID and Ketoconazole 2% Shampoo to hair twice weekly Cont to monitor progression 9) Soft Stools Patient is off Magnesium oxide Patient is on stool softeners 10) Prophylactic Measure Labs weekly on Sunday Lovenox 40mg SC daily Pepcid 20mg PO BID Patient is homeless. Used to stay with friend, but no longer welcome there. Goal is to walk with cane so he can go to a prison (will not qualify with a walker) Pt pending transfer, awaiting placement PT (08/15/16): home w services and knee brace; currently working with physical therapy with single point cane Juan Pablo Ny PGY-1 <Jose Wiggins M - Last Filed: 08/17/16 15:14> Objective - Vital Signs/Intake and Output Vital Signs (last 24 hours): Temp Pulse Resp BP Pulse Ox 97.5 F L 64 20 116/69 99 08/17/16 07:56 08/17/16 07:56 08/17/16 07:56 08/17/16 07:56 08/17/16 07:56 Intake and Output: 08/17/16 08/17/16 06:59 18:59 Intake Total 440 Balance 440 - Medications Medications: Current Medications Acetaminophen (Tylenol 325mg Tab) 650 mg PO Q6 PRN PRN Reason: Pain, Mild (1-3) Last Admin: 08/17/16 09:26 Dose: 650 mg Enoxaparin Sodium (Lovenox) 40 mg SC DAILY [facility] Last Admin: 08/17/16 09:29 Dose: 40 mg Famotidine (Pepcid) 20 mg PO BID [facility] Last Admin: 08/17/16 09:30 Dose: 20 mg Lidocaine (Lidoderm) 1 ea TD DAILY [facility] Last Admin: 08/17/16 09:29 Dose: 1 ea Simethicone (Mylicon Chew Tab) 80 mg PO QID PRN PRN Reason: GI distress Last Admin: 08/11/16 15:00 Dose: 80 mg Tamsulosin HCl (Flomax) 0.8 mg PO DAILY [facility] Last Admin: 08/17/16 09:29 Dose: 0.8 mg Tramadol HCl (Ultram) 50 mg PO TID PRN PRN Reason: Pain, moderate (4-7) Last Admin: 08/17/16 09:27 Dose: 50 mg - Labs Labs: 08/14/16 10:58 08/14/16 10:58 Attending/Attestation - Attestation I have personally seen and examined this patient.: Yes I have fully participated in the care of the patient.: Yes I have reviewed all pertinent clinical information, including history, physical exam and plan: Yes Notes (Text): 08/17/16 15:13 Patient was seen and examined at bedside with the resident We will continue current medical management I discussed the plan of care with the resident I agree with the above history and physical and assessment/plan.
[2016-08-17] MEDS: Lidocaine 5% Patch TD SCH (09:29)
[2016-08-17] MEDS: Enoxaparin 40 mg Syringe SC SCH (09:29)
--- NOTE | 2016-08-18 06:58 | CP.PCM.PN ---
<Kimberly Ken - Last Filed: 08/18/16 12:21> Subjective - Date & Time of Evaluation Date of Evaluation: 08/18/16 Time of Evaluation: 07:25 - Subjective Subjective: Pt seen and examined at bedside. Nursing reports no acute events overnight. Right sided hip/leg pain persists, but pt states lidoderm patch and oral pain medication have him well-controlled. Physical Therapy continues to work with him on getting comfortable with using cane. He stated he is constipated and hasn 't had a BM for 2 days. He is tolerating diet and urinating without difficulty. He denies fever, chills, headache, chest pain, abdominal pain. Objective - Vital Signs/Intake and Output Vital Signs (last 24 hours): Temp Pulse Resp BP Pulse Ox 98.3 F 69 20 115/65 97 08/17/16 23:39 08/17/16 23:39 08/17/16 23:39 08/17/16 23:39 08/17/16 23:39 Intake and Output: 08/17/16 08/18/16 18:59 06:59 Intake Total 440 240 Balance 440 240 - Medications Medications: Current Medications Acetaminophen (Tylenol 325mg Tab) 650 mg PO Q6 PRN PRN Reason: Pain, Mild (1-3) Last Admin: 08/17/16 09:26 Dose: 650 mg Enoxaparin Sodium (Lovenox) 40 mg SC DAILY [facility] Last Admin: 08/17/16 09:29 Dose: 40 mg Famotidine (Pepcid) 20 mg PO BID [facility] Last Admin: 08/17/16 18:29 Dose: 20 mg Lidocaine (Lidoderm) 1 ea TD DAILY [facility] Last Admin: 08/17/16 09:29 Dose: 1 ea Simethicone (Mylicon Chew Tab) 80 mg PO QID PRN PRN Reason: GI distress Last Admin: 08/11/16 15:00 Dose: 80 mg Tamsulosin HCl (Flomax) 0.8 mg PO DAILY [facility] Last Admin: 08/17/16 09:29 Dose: 0.8 mg Tramadol HCl (Ultram) 50 mg PO TID PRN PRN Reason: Pain, moderate (4-7) Last Admin: 08/17/16 09:27 Dose: 50 mg - Labs Labs: 08/14/16 10:58 08/14/16 10:58 - Constitutional Appears: Non-toxic, No Acute Distress - Head Exam Head Exam: ATRAUMATIC, NORMAL INSPECTION - Eye Exam Pupil Exam: NORMAL ACCOMODATION - ENT Exam ENT Exam: Mucous Membranes Moist - Respiratory Exam Respiratory Exam: Clear to Ausculation Bilateral, NORMAL BREATHING PATTERN. absent: Accessory Muscle Use, Rales, Rhonchi, Wheezes, Respiratory Distress - Cardiovascular Exam Cardiovascular Exam: REGULAR RHYTHM, +S1, +S2 - GI/Abdominal Exam GI & Abdominal Exam: Soft, Normal Bowel Sounds. absent: Distended, Firm, Guarding, Tenderness - Extremities Exam Extremities Exam: Normal Inspection. absent: Calf Tenderness - Neurological Exam Neurological Exam: Alert, Awake, Oriented x3 - Psychiatric Exam Psychiatric exam: Normal Affect, Normal Mood - Skin Skin Exam: Dry, Intact, Normal Color, Warm Assessment and Plan - Assessment and Plan (Free Text) Assessment: 1) Fracture of tibia, proximal, right, closed; pain management and physical therapy Continue physical therapy; goal is for use of cane per ortho. Cane present bedside - knee immobilizer/brace ordered, can be d/c to halfway when tolerating cane Patient is progressively weight bearing. No ortho intervention needed at this time. Continue to try to get a facility to accept patient with ambulatory cane. Tylenol 650 mg PO Q6 PRN mild pain Tramadol 25mg TID PRN. Patient instructed to ask for pain when necessary. Daily physical therapy L knee x-ray: severe osteopenia. Sclerotic changes about the posterior proximal tibia may relate to a sclerotic healing response of a prior stress fracture here. no tibial plateau depressed fracture. The sclerosis is perceived on the prior 04/21 study; no interval pathology appreciated between 2 exams. If symptoms worsen consider MRI. 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 imaging every [address] scan in 03/2016, should be monitored in September, 6) Sacral decubitus- resolved Out of bed into chair daily Recommendations for silvadene creme to affected buttocks area 7) History of Urinary Tract Infection Continue to monitor Most recent 06/22 Currently asymptomatic UA negative 8) Seborrheic Dermatitis Continue Ketoconazole 2% to affected areas of face BID and Ketoconazole 2% Shampoo to hair twice weekly Cont to monitor progression 9) Constipation Dulcolax prn 10) Prophylactic Measure Labs weekly on Sunday Lovenox 40mg SC daily Pepcid 20mg PO BID Patient is homeless. Used to stay with friend, but no longer welcome there. Goal is to walk with cane so he can go to a halfway (will not qualify with a walker) Pt pending transfer, awaiting placement PT (08/15/16): home w services and knee brace; currently working with physical therapy with single point cane <Jose Wiggins - Last Filed: 08/18/16 16:37> Objective - Vital Signs/Intake and Output Vital Signs (last 24 hours): Temp Pulse Resp BP Pulse Ox 97.5 F L 74 20 122/68 97 08/18/16 15:00 08/18/16 15:00 08/18/16 15:00 08/18/16 15:00 08/18/16 15:00 Intake and Output: 08/18/16 08/18/16 06:59 18:59 Intake Total 240 Balance 240 - Medications Medications: Current Medications Acetaminophen (Tylenol 325mg Tab) 650 mg PO Q6 PRN PRN Reason: Pain, Mild (1-3) Last Admin: 08/17/16 09:26 Dose: 650 mg Bisacodyl (Dulcolax) 5 mg PO Q12 PRN PRN Reason: Constipation Last Admin: 08/18/16 14:47 Dose: 5 mg Enoxaparin Sodium (Lovenox) 40 mg SC DAILY [facility] Last Admin: 08/18/16 10:13 Dose: 40 mg Famotidine (Pepcid) 20 mg PO BID [facility] Last Admin: 08/18/16 10:14 Dose: 20 mg Lidocaine (Lidoderm) 1 ea TD DAILY [facility] Last Admin: 08/18/16 10:13 Dose: 1 ea Simethicone (Mylicon Chew Tab) 80 mg PO QID PRN PRN Reason: GI distress Last Admin: 08/18/16 12:48 Dose: 80 mg Tamsulosin HCl (Flomax) 0.8 mg PO DAILY [facility] Last Admin: 08/18/16 10:13 Dose: 0.8 mg Tramadol HCl (Ultram) 50 mg PO TID PRN PRN Reason: Pain, moderate (4-7) Last Admin: 08/18/16 10:14 Dose: 50 mg - Labs Labs: 08/14/16 10:58 08/14/16 10:58 Attending/Attestation - Attestation I have personally seen and examined this patient.: Yes I have fully participated in the care of the patient.: Yes I have reviewed all pertinent clinical information, including history, physical exam and plan: Yes Notes (Text): 08/18/16 16:37 Patient was seen and examined at bedside with the resident Continue current medical management Continue physical therapy next and awaiting placement
[2016-08-18] MEDS: Enoxaparin 40 mg Syringe SC SCH (10:13)
[2016-08-18] MEDS: Lidocaine 5% Patch TD SCH (10:13)
[2016-08-18] MEDS ORDERED: Bisacodyl 5mg EC Tab PO PRN (11:58)
[2016-08-18] MEDS: Simethicone 80 mg Chewtab PO PRN (12:48)
--- NOTE | 2016-08-18 13:09 | CP.PCM.PN ---
Subjective - Date & Time of Evaluation Date of Evaluation: 08/18/16 Time of Evaluation: 13:06 - Subjective Subjective: Continued RLE pain, but increasing tolerance of PT with cane.No new complaints. Objective - Vital Signs/Intake and Output Vital Signs (last 24 hours): Temp Pulse Resp BP Pulse Ox 97.5 F L 69 20 118/79 98 08/18/16 08:00 08/18/16 08:00 08/18/16 08:00 08/18/16 08:00 08/18/16 08:00 Intake and Output: 08/18/16 08/18/16 06:59 18:59 Intake Total 240 Balance 240 - Medications Medications: Current Medications Acetaminophen (Tylenol 325mg Tab) 650 mg PO Q6 PRN PRN Reason: Pain, Mild (1-3) Last Admin: 08/17/16 09:26 Dose: 650 mg Bisacodyl (Dulcolax) 5 mg PO Q12 PRN PRN Reason: Constipation Enoxaparin Sodium (Lovenox) 40 mg SC DAILY [facility] Last Admin: 08/18/16 10:13 Dose: 40 mg Famotidine (Pepcid) 20 mg PO BID [facility] Last Admin: 08/18/16 10:14 Dose: 20 mg Lidocaine (Lidoderm) 1 ea TD DAILY [facility] Last Admin: 08/18/16 10:13 Dose: 1 ea Simethicone (Mylicon Chew Tab) 80 mg PO QID PRN PRN Reason: GI distress Last Admin: 08/18/16 12:48 Dose: 80 mg Tamsulosin HCl (Flomax) 0.8 mg PO DAILY [facility] Last Admin: 08/18/16 10:13 Dose: 0.8 mg Tramadol HCl (Ultram) 50 mg PO TID PRN PRN Reason: Pain, moderate (4-7) Last Admin: 08/18/16 10:14 Dose: 50 mg - Labs Labs: 08/14/16 10:58 08/14/16 10:58 - Extremities Exam Additional comments: RLE: calves soft NT neg homans +ROM ankle/toes, sensation intact, + DP pulses, quad tenderness improved. Assessment and Plan (1) Acetabular protrusion Assessment & Plan: stable no ortho intervention cont WBAT and PT Status: Chronic (2) Fracture of tibia, proximal, right, closed Assessment & Plan: healed cont PT awaiting ambulation with cane for placement knee immob as needed for ambulation assistance, remove at other times, continue PT for strengthening/ROM RLE d/w Dr. Pino, agrees with above Status: Chronic
--- NOTE | 2016-08-19 01:54 | CP.PCM.PN ---
<Juan Pablo Ny - Last Filed: 08/19/16 05:07> Subjective - Date & Time of Evaluation Date of Evaluation: 08/19/16 Time of Evaluation: 01:52 - Subjective Subjective: PGY-[address] Wiggins's service Pt seen and examined at bedside. Nursing reports no acute events overnight. Right sided hip/leg pain is a chronic finding, but he states lidoderm patch and oral Ultram have him well-controlled. Physical Therapy continues to work with pt on using cane for ambulation. Pt using knee immobilzer during ambulation. He stated he is constipated and has not had a BM for 2 days. He is tolerating diet and urinating without difficulty. He denies fever, chills, headache, chest pain, abdominal pain. Objective - Vital Signs/Intake and Output Vital Signs (last 24 hours): Temp Pulse Resp BP Pulse Ox 98.2 F 80 20 123/72 96 08/18/16 23:24 08/18/16 23:24 08/18/16 23:24 08/18/16 23:24 08/18/16 23:24 Intake and Output: 08/18/16 08/19/16 18:59 06:59 Intake Total 500 Balance 500 - Medications Medications: Current Medications Acetaminophen (Tylenol 325mg Tab) 650 mg PO Q6 PRN PRN Reason: Pain, Mild (1-3) Last Admin: 08/17/16 09:26 Dose: 650 mg Bisacodyl (Dulcolax) 5 mg PO Q12 PRN PRN Reason: Constipation Last Admin: 08/18/16 14:47 Dose: 5 mg Enoxaparin Sodium (Lovenox) 40 mg SC DAILY [facility] Last Admin: 08/18/16 10:13 Dose: 40 mg Famotidine (Pepcid) 20 mg PO BID [facility] Last Admin: 08/18/16 17:38 Dose: 20 mg Lidocaine (Lidoderm) 1 ea TD DAILY [facility] Last Admin: 08/18/16 10:13 Dose: 1 ea Simethicone (Mylicon Chew Tab) 80 mg PO QID PRN PRN Reason: GI distress Last Admin: 08/18/16 12:48 Dose: 80 mg Tamsulosin HCl (Flomax) 0.8 mg PO DAILY [facility] Last Admin: 08/18/16 10:13 Dose: 0.8 mg Tramadol HCl (Ultram) 50 mg PO TID PRN PRN Reason: Pain, moderate (4-7) Last Admin: 08/18/16 10:14 Dose: 50 mg - Labs Labs: 08/14/16 10:58 08/14/16 10:58 - Additional Findings Additional findings: - Constitutional Appears: Non-toxic, No Acute Distress - Head Exam Head Exam: ATRAUMATIC, NORMAL INSPECTION - Eye Exam Pupil Exam: NORMAL ACCOMODATION - ENT Exam ENT Exam: Mucous Membranes Moist - Respiratory Exam Respiratory Exam: Clear to Ausculation Bilateral, NORMAL BREATHING PATTERN. absent: Accessory Muscle Use, Rales, Rhonchi, Wheezes, Respiratory Distress - Cardiovascular Exam Cardiovascular Exam: REGULAR RHYTHM, +S1, +S2 - GI/Abdominal Exam GI & Abdominal Exam: Soft, Normal Bowel Sounds. absent: Distended, Firm, Guarding, Tenderness - Extremities Exam Extremities Exam: Normal Inspection, Tender at palpation at right hip, down femur (chronic finding). absent: Calf Tenderness - Neurological Exam Neurological Exam: Alert, Awake, Oriented x3 - Psychiatric Exam Psychiatric exam: Normal Affect, Normal Mood - Skin Skin Exam: Dry, Intact, Normal Color, Warm Assessment and Plan - Assessment and Plan (Free Text) Plan: 1) Fracture of tibia, proximal, right, closed; pain management and physical therapy Continue physical therapy; goal is for use of cane per ortho. Cane present bedside - knee immobilizer at bedside, can be d/c to halfway when tolerating cane PT note (08/19): Recommendation home with services, with quad cane & knee immobilzer Patient is progressively weight bearing. No ortho intervention needed at this time. Tylenol 650 mg PO Q6 PRN mild pain Tramadol 25mg TID PRN. Patient instructed to ask for pain when necessary. Daily physical therapy L knee x-ray: severe osteopenia. Sclerotic changes about the posterior proximal tibia may relate to a sclerotic healing response of a prior stress fracture here. no tibial plateau depressed fracture. The sclerosis is perceived on the prior 04/21 study; no interval pathology appreciated between 2 exams. If symptoms worsen consider MRI. 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 imaging every [address] scan in 03/2016, should be monitored in September, 6) Sacral decubitus- resolved Out of bed into chair daily Recommendations for silvadene creme to affected buttocks area 7) History of Urinary Tract Infection Continue to monitor Most recent 06/22 Currently asymptomatic UA negative 8) Seborrheic Dermatitis Continue Ketoconazole 2% to affected areas of face BID and Ketoconazole 2% Shampoo to hair twice weekly Cont to monitor progression 9) Constipation Dulcolax prn 10) Prophylactic Measure Labs weekly on Sunday Lovenox 40mg SC daily Pepcid 20mg PO BID Patient is homeless. Used to stay with friend, but no longer welcome there. Goal is to walk with cane so he can go to a halfway (will not qualify with a walker) Pt pending transfer, awaiting placement PT (08/15/16): home w services and knee brace; currently working with physical therapy with single point cane <Jose Wiggins - Last Filed: 08/19/16 15:30> Objective - Vital Signs/Intake and Output Vital Signs (last 24 hours): Temp Pulse Resp BP Pulse Ox 98.3 F 78 20 116/74 98 08/19/16 08:41 08/19/16 08:41 08/19/16 08:41 08/19/16 08:41 08/19/16 08:41 Intake and Output: 08/19/16 08/19/16 06:59 18:59 Intake Total 300 300 Output Total 650 Balance -350 300 - Medications Medications: Current Medications Acetaminophen (Tylenol 325mg Tab) 650 mg PO Q6 PRN PRN Reason: Pain, Mild (1-3) Last Admin: 08/17/16 09:26 Dose: 650 mg Bisacodyl (Dulcolax) 5 mg PO Q12 PRN PRN Reason: Constipation Last Admin: 08/18/16 14:47 Dose: 5 mg Enoxaparin Sodium (Lovenox) 40 mg SC DAILY [facility] Last Admin: 08/19/16 09:31 Dose: 40 mg Famotidine (Pepcid) 20 mg PO BID [facility] Last Admin: 08/19/16 09:31 Dose: 20 mg Lidocaine (Lidoderm) 1 ea TD DAILY [facility] Last Admin: 08/19/16 09:31 Dose: 1 ea Polyethylene Glycol (Miralax) 17 gm PO DAILY [facility] Last Admin: 08/19/16 13:32 Dose: 17 gm Simethicone (Mylicon Chew Tab) 80 mg PO QID PRN PRN Reason: GI distress Last Admin: 08/18/16 12:48 Dose: 80 mg Tamsulosin HCl (Flomax) 0.8 mg PO DAILY [facility] Last Admin: 08/19/16 09:31 Dose: 0.8 mg Tramadol HCl (Ultram) 50 mg PO TID PRN PRN Reason: Pain, moderate (4-7) Last Admin: 08/19/16 09:50 Dose: 50 mg - Labs Labs: 08/14/16 10:58 08/14/16 10:58 Attending/Attestation - Attestation I have personally seen and examined this patient.: Yes I have fully participated in the care of the patient.: Yes I have reviewed all pertinent clinical information, including history, physical exam and plan: Yes Notes (Text): 08/19/16 15:28 Patient was seen and examined at bedside with the resident Complains of constipation. We will start bowel regimen Continue current medical management Continue physical therapy Awaiting placement.
[2016-08-19] MEDS: Lidocaine 5% Patch TD SCH (09:31)
[2016-08-19] MEDS: Enoxaparin 40 mg Syringe SC SCH (09:31)
[2016-08-19] MEDS: POLYETHYLENE GLYCOL 3350 17 GM/Dose PACKET PO SCH (13:32)
--- NOTE | 2016-08-20 00:11 | CP.PCM.PN ---
<Juan Pablo Ny - Last Filed: 08/20/16 00:07> Subjective - Date & Time of Evaluation Date of Evaluation: 08/20/16 Time of Evaluation: 00:08 - Subjective Subjective: PGY-[address] Wiggins's service Pt seen and examined at bedside. Nursing reports no acute events overnight. Right sided hip/leg pain is a chronic finding, but states lidoderm patch and oral pain medication have been effective. Pt still reporting constipation, but feels like he can move his bowels soon. He is tolerating diet and urinating without difficulty. He denies fever, chills, headache, chest pain, abdominal pain. Objective - Vital Signs/Intake and Output Vital Signs (last 24 hours): Temp Pulse Resp BP Pulse Ox 98.3 F 71 20 120/71 97 08/19/16 15:00 08/19/16 15:00 08/19/16 15:00 08/19/16 15:00 08/19/16 15:00 Intake and Output: 08/19/16 08/20/16 18:59 06:59 Intake Total 300 400 Balance 300 400 - Medications Medications: Current Medications Acetaminophen (Tylenol 325mg Tab) 650 mg PO Q6 PRN PRN Reason: Pain, Mild (1-3) Last Admin: 08/17/16 09:26 Dose: 650 mg Bisacodyl (Dulcolax) 5 mg PO Q12 PRN PRN Reason: Constipation Last Admin: 08/18/16 14:47 Dose: 5 mg Enoxaparin Sodium (Lovenox) 40 mg SC DAILY [facility] Last Admin: 08/19/16 09:31 Dose: 40 mg Famotidine (Pepcid) 20 mg PO BID [facility] Last Admin: 08/19/16 17:30 Dose: 20 mg Lidocaine (Lidoderm) 1 ea TD DAILY [facility] Last Admin: 08/19/16 09:31 Dose: 1 ea Polyethylene Glycol (Miralax) 17 gm PO DAILY [facility] Last Admin: 08/19/16 13:32 Dose: 17 gm Simethicone (Mylicon Chew Tab) 80 mg PO QID PRN PRN Reason: GI distress Last Admin: 08/18/16 12:48 Dose: 80 mg Tamsulosin HCl (Flomax) 0.8 mg PO DAILY [facility] Last Admin: 08/19/16 09:31 Dose: 0.8 mg Tramadol HCl (Ultram) 50 mg PO TID PRN PRN Reason: Pain, moderate (4-7) Last Admin: 08/19/16 17:41 Dose: 50 mg - Labs Labs: 08/14/16 10:58 08/14/16 10:58 - Additional Findings Additional findings: - Constitutional Appears: Non-toxic, No Acute Distress - Head Exam Head Exam: ATRAUMATIC, NORMAL INSPECTION - Eye Exam Pupil Exam: NORMAL ACCOMODATION - ENT Exam ENT Exam: Mucous Membranes Moist - Respiratory Exam Respiratory Exam: Clear to Ausculation Bilateral, NORMAL BREATHING PATTERN. absent: Accessory Muscle Use, Rales, Rhonchi, Wheezes, Respiratory Distress - Cardiovascular Exam Cardiovascular Exam: REGULAR RHYTHM, +S1, +S2 - GI/Abdominal Exam GI & Abdominal Exam: Soft, Normal Bowel Sounds. absent: Distended, Firm, Guarding, Tenderness - Extremities Exam Extremities Exam: Normal Inspection, Tender at palpation at right hip, down femur (chronic finding). absent: Calf Tenderness - Neurological Exam Neurological Exam: Alert, Awake, Oriented x3 - Psychiatric Exam Psychiatric exam: Normal Affect, Normal Mood - Skin Skin Exam: Dry, Intact, Normal Color, Warm Assessment and Plan - Assessment and Plan (Free Text) Plan: 1) Fracture of tibia, proximal, right, closed; pain management and physical therapy Continue physical therapy; goal is for use of cane per ortho. Cane present bedside - knee immobilizer at bedside, can be d/c to [facility] when tolerating cane PT note (08/19): Recommendation home with services, with quad cane & knee immobilzer Patient is progressively weight bearing. No ortho intervention needed at this time. Tylenol 650 mg PO Q6 PRN mild pain Tramadol 25mg TID PRN. Patient instructed to ask for pain when necessary. Daily physical therapy L knee x-ray: severe osteopenia. Sclerotic changes about the posterior proximal tibia may relate to a sclerotic healing response of a prior stress fracture here. no tibial plateau depressed fracture. The sclerosis is perceived on the prior 04/21 study; no interval pathology appreciated between 2 exams. If symptoms worsen consider MRI. 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 imaging every [address] scan in 03/2016, should be monitored in September, 6) Sacral decubitus- resolved Out of bed into chair daily Recommendations for silvadene creme to affected buttocks area 7) History of Urinary Tract Infection Continue to monitor Most recent 06/22 Currently asymptomatic UA negative 8) Seborrheic Dermatitis Continue Ketoconazole 2% to affected areas of face BID and Ketoconazole 2% Shampoo to hair twice weekly Cont to monitor progression 9) Constipation Dulcolax prn 10) Prophylactic Measure Labs weekly on Sunday Lovenox 40mg SC daily Pepcid 20mg PO BID Patient is homeless. Used to stay with friend, but no longer welcome there. Goal is to walk with cane so he can go to a [facility] (will not qualify with a walker) Pt pending transfer, awaiting placement PT (08/15/16): home w services and knee brace; currently working with physical therapy with single point cane <Jose Wiggins - Last Filed: 08/20/16 14:06> Objective - Vital Signs/Intake and Output Vital Signs (last 24 hours): Temp Pulse Resp BP Pulse Ox 97.6 F 68 20 115/69 98 08/20/16 08:23 08/20/16 08:23 08/20/16 08:23 08/20/16 08:23 08/20/16 08:23 Intake and Output: 08/20/16 08/20/16 06:59 18:59 Intake Total 700 Balance 700 - Medications Medications: Current Medications Acetaminophen (Tylenol 325mg Tab) 650 mg PO Q6 PRN PRN Reason: Pain, Mild (1-3) Last Admin: 08/17/16 09:26 Dose: 650 mg Bisacodyl (Dulcolax) 5 mg PO Q12 PRN PRN Reason: Constipation Last Admin: 08/18/16 14:47 Dose: 5 mg Enoxaparin Sodium (Lovenox) 40 mg SC DAILY [facility] Last Admin: 08/20/16 10:44 Dose: 40 mg Famotidine (Pepcid) 20 mg PO BID [facility] Last Admin: 08/20/16 10:46 Dose: 20 mg Lidocaine (Lidoderm) 1 ea TD DAILY [facility] Last Admin: 08/20/16 10:46 Dose: 1 ea Polyethylene Glycol (Miralax) 17 gm PO DAILY [facility] Last Admin: 08/20/16 11:16 Dose: Not Given Simethicone (Mylicon Chew Tab) 80 mg PO QID PRN PRN Reason: GI distress Last Admin: 08/18/16 12:48 Dose: 80 mg Tamsulosin HCl (Flomax) 0.8 mg PO DAILY [facility] Last Admin: 08/20/16 10:45 Dose: 0.8 mg Tramadol HCl (Ultram) 50 mg PO TID PRN PRN Reason: Pain, moderate (4-7) Last Admin: 08/20/16 10:48 Dose: 50 mg - Labs Labs: 08/14/16 10:58 08/14/16 10:58 Attending/Attestation - Attestation I have personally seen and examined this patient.: Yes I have fully participated in the care of the patient.: Yes I have reviewed all pertinent clinical information, including history, physical exam and plan: Yes Notes (Text): 08/20/16 14:05 Patient was seen and examined at bedside with the resident Complains of constipation Continue bowel regimen Patient also complains of right lower extremity. We will continue pain management and physical therapy daily Awaiting placement I agree with the history and physical and assessment/plan by the resident
[2016-08-20] MEDS: Enoxaparin 40 mg Syringe SC SCH (10:44)
[2016-08-20] MEDS: Lidocaine 5% Patch TD SCH (10:46)
[2016-08-20] MEDS: POLYETHYLENE GLYCOL 3350 17 GM/Dose PACKET PO SCH (11:16)
--- NOTE | 2016-08-21 07:53 | CP.PCM.PN ---
<Shabana Samano - Last Filed: 08/21/16 15:39> Subjective - Date & Time of Evaluation Date of Evaluation: 08/21/16 Time of Evaluation: 07:23 - Subjective Subjective: PGY 1 Medicine Note- Dr. Rutherford's service Pt seen and examined in no acute distress. Patient states that he is still having leg pain with attempted movements and with ambulation. Per physical therapy, patient is not fully independent with regards to ambulation. He can stand with a walker but he still cannot stand with a four quad cane. Patient ciro require ambulation with a cane in order to leave for the senior living. At thsi time, patient still needs therapy to improve his gait stability. Patient admits to right hip pain and knee discomfort. He denies subjective fevers or chills, nausea, vomiting, diarrhea, constipation, abdominal pain at this time. Objective - Vital Signs/Intake and Output Vital Signs (last 24 hours): Temp Pulse Resp BP Pulse Ox 97.9 F 75 20 125/73 97 08/21/16 00:00 08/21/16 00:00 08/21/16 00:00 08/21/16 00:00 08/21/16 00:00 Intake and Output: 08/21/16 08/21/16 06:59 18:59 Intake Total 240 Balance 240 - Medications Medications: Current Medications Acetaminophen (Tylenol 325mg Tab) 650 mg PO Q6 PRN PRN Reason: Pain, Mild (1-3) Last Admin: 08/17/16 09:26 Dose: 650 mg Bisacodyl (Dulcolax) 5 mg PO Q12 PRN PRN Reason: Constipation Last Admin: 08/18/16 14:47 Dose: 5 mg Enoxaparin Sodium (Lovenox) 40 mg SC DAILY [facility] Last Admin: 08/20/16 10:44 Dose: 40 mg Famotidine (Pepcid) 20 mg PO BID [facility] Last Admin: 08/20/16 17:35 Dose: 20 mg Lidocaine (Lidoderm) 1 ea TD DAILY [facility] Last Admin: 08/20/16 10:46 Dose: 1 ea Polyethylene Glycol (Miralax) 17 gm PO DAILY [facility] Last Admin: 08/20/16 11:16 Dose: Not Given Simethicone (Mylicon Chew Tab) 80 mg PO QID PRN PRN Reason: GI distress Last Admin: 08/18/16 12:48 Dose: 80 mg Tamsulosin HCl (Flomax) 0.8 mg PO DAILY [facility] Last Admin: 08/20/16 10:45 Dose: 0.8 mg Tramadol HCl (Ultram) 50 mg PO TID PRN PRN Reason: Pain, moderate (4-7) Last Admin: 08/20/16 22:06 Dose: 50 mg - Labs Labs: 08/14/16 10:58 08/14/16 10:58 - Constitutional Appears: Non-toxic, No Acute Distress - Head Exam Head Exam: ATRAUMATIC, NORMAL INSPECTION, NORMOCEPHALIC - Eye Exam Eye Exam: EOMI, Normal appearance, PERRL Pupil Exam: NORMAL ACCOMODATION - ENT Exam ENT Exam: Mucous Membranes Moist - Neck Exam Neck Exam: Full ROM - Respiratory Exam Respiratory Exam: NORMAL BREATHING PATTERN. absent: Wheezes - Cardiovascular Exam Cardiovascular Exam: +S1, +S2 - GI/Abdominal Exam GI & Abdominal Exam: Soft, Normal Bowel Sounds - Extremities Exam Extremities Exam: Normal Capillary Refill. absent: Full ROM, Tenderness - Back Exam Back Exam: Full ROM. absent: muscle spasm, vertebral tenderness - Neurological Exam Neurological Exam: Alert, Awake, CN II-XII Intact, Oriented x3 - Psychiatric Exam Psychiatric exam: Flat Affect, Normal Affect, Normal Mood - Skin Skin Exam: Dry, Normal Color, Warm Assessment and Plan - Assessment and Plan (Free Text) Assessment: 1) Fracture of tibia, proximal, right, closed; pain management and physical therapy Continue physical therapy; goal is for use of cane per ortho. Cane present bedside - knee immobilizer at bedside, can be d/c to senior living when tolerating cane Patient can ambulate with support with a walker; however patient needs to be able to walk with a cane. Patient is progressively weight bearing. No ortho intervention needed at this time. Tylenol 650 mg PO Q6 PRN mild pain Tramadol 25mg TID PRN. Patient instructed to ask for pain when necessary. Daily physical therapy L knee x-ray: severe osteopenia. Sclerotic changes about the posterior proximal tibia may relate to a sclerotic healing response of a prior stress fracture here. no tibial plateau depressed fracture. The sclerosis is perceived on the prior 04/21 study; no interval pathology appreciated between 2 exams. If symptoms worsen consider MRI. 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 2) Gait Instability; will continue with PT/OT xrays right knee show resolved area of sclerosis at presumed stress fracture right lateral tibial plateau (MRI contraindicated due to metallic implant in patella) PT notified Will need continued PT until patient is stable with cane and f/u regarding knee immobilzer 3) BPH Flomax 0.8 mg PO daily 4) Anemia- resolved Hgb stable. Cont to monitor. weekly labs 5) Aneurysmal dilatation of ascending thoracic aorta; Currently 4.[address] imaging every [address] scan in 03/2016, should be monitored next month September 2016 6) Sacral decubitus- resolved Out of bed into chair daily Recommendations for silvadene creme to affected buttocks area 7) History of Urinary Tract Infection Continue to monitor Most recent 06/22 Currently asymptomatic UA negative 8) Seborrheic Dermatitis Continue Ketoconazole 2% to affected areas of face BID and Ketoconazole 2% Shampoo to hair twice weekly Cont to monitor progression 9) Constipation Dulcolax prn 10) Prophylactic Measure Labs weekly on Sunday Lovenox 40mg SC daily Pepcid 20mg PO BID Patient is homeless. Used to stay with friend, but no longer welcome there. Goal is to walk with cane so he can go to a senior living (will not qualify with a walker) Pt pending transfer, awaiting placement PT: home w services and knee brace; currently working with physical therapy with single point cane <Sukhwinder Rutherford - Last Filed: 08/21/16 15:52> Objective - Vital Signs/Intake and Output Vital Signs (last 24 hours): Temp Pulse Resp BP Pulse Ox 97.4 F L 74 19 122/69 96 08/21/16 08:15 08/21/16 08:15 08/21/16 08:15 08/21/16 08:15 08/21/16 08:15 Intake and Output: 08/21/16 08/21/16 06:59 18:59 Intake Total 240 Balance 240 - Medications Medications: Current Medications Acetaminophen (Tylenol 325mg Tab) 650 mg PO Q6 PRN PRN Reason: Pain, Mild (1-3) Last Admin: 08/17/16 09:26 Dose: 650 mg Bisacodyl (Dulcolax) 5 mg PO Q12 PRN PRN Reason: Constipation Last Admin: 08/18/16 14:47 Dose: 5 mg Enoxaparin Sodium (Lovenox) 40 mg SC DAILY [facility] Last Admin: 08/21/16 09:11 Dose: 40 mg Famotidine (Pepcid) 20 mg PO BID [facility] Last Admin: 08/21/16 09:11 Dose: 20 mg Lidocaine (Lidoderm) 1 ea TD DAILY [facility] Last Admin: 08/21/16 09:12 Dose: 1 ea Polyethylene Glycol (Miralax) 17 gm PO DAILY [facility] Last Admin: 08/21/16 09:12 Dose: Not Given Simethicone (Mylicon Chew Tab) 80 mg PO QID PRN PRN Reason: GI distress Last Admin: 08/18/16 12:48 Dose: 80 mg Tamsulosin HCl (Flomax) 0.8 mg PO DAILY [facility] Last Admin: 08/21/16 09:11 Dose: 0.8 mg Tramadol HCl (Ultram) 50 mg PO TID PRN PRN Reason: Pain, moderate (4-7) Last Admin: 08/20/16 22:06 Dose: 50 mg - Labs Labs: 08/21/16 11:16 08/21/16 11:16 Attending/Attestation - Attestation I have personally seen and examined this patient.: Yes I have fully participated in the care of the patient.: Yes I have reviewed all pertinent clinical information, including history, physical exam and plan: Yes
[2016-08-21] MEDS: Enoxaparin 40 mg Syringe SC SCH (09:11)
[2016-08-21] MEDS: POLYETHYLENE GLYCOL 3350 17 GM/Dose PACKET PO SCH (09:12)
[2016-08-21] MEDS: Lidocaine 5% Patch TD SCH (09:12)
[2016-08-21 11:26] LABS: BASO % 0.6 % (0.0-2.0); EOS # 0.1 K/uL (0.0-0.7); HEMOGLOBIN 11.6 g/dL (12.0-18.0); LYMPH # 1.4 K/uL (1.0-4.3); LYMPH % 27.9 % (20.0-40.0); MEAN CELL VOLUME 94.6 fL (80.0-94.0); MEAN CORPUSCULAR HEMOGLOBIN 31.2 pg (27.0-31.0); MEAN PLATELET VOLUME 8.3 fL (7.2-11.7); MONO # 0.4 K/uL (0.0-0.8); MONO % 8.9 % (0.0-10.0); NEUT % 60.6 % (50.0-75.0); RBC 3.73 Mil/uL (4.40-5.90); WHITE BLOOD COUNT 4.9 K/uL (4.8-10.8)
[2016-08-21 11:47] LABS: ALBUMIN 3.5 g/dL (3.5-5.0)
[2016-08-21 11:49] LABS: GFR AFRICAN-AMERICAN > 60; GFR NON-AFRICAN AMERICAN > 60
[2016-08-21 11:50] LABS: ALT/SGPT 13 U/L (21-72); AST/SGOT 18 U/L (17-59); BLOOD UREA NITROGEN 11 mg/dL (9-20)
[2016-08-21 11:51] LABS: CALCIUM 8.7 mg/dl (8.6-10.4)
--- NOTE | 2016-08-21 13:51 | RAD ---
PROCEDURE: Right Knee Radiographs. HISTORY: f/u stress fx COMPARISON: 07/11/2016 FINDINGS: BONES: There is an apparent lucency in the medial tibial plateau. Status post open reduction internal fixation of a patellar fracture again seen is severe diffuse bone demineralization. Bone alignment is normal. JOINTS: There is moderate degenerative osteoarthrosis. JOINT EFFUSION: There is a small suprapatellar joint effusion. OTHER FINDINGS: There is mild prepatellar soft tissue swelling. IMPRESSION: 1. Question of nondisplaced fracture in the medial tibial plateau, new since the prior examination. A CT scan/MRI may be helpful for further evaluation. 2. Status post open reduction and internal fixation of a nondisplaced patellar fracture.
--- NOTE | 2016-08-21 14:53 | CP.PCM.PN ---
Subjective - Date & Time of Evaluation Date of Evaluation: 08/21/16 Time of Evaluation: 14:50 - Subjective Subjective: Patient with continued right hip and knee pain. Tolerating PT well. Objective - Vital Signs/Intake and Output Vital Signs (last 24 hours): Temp Pulse Resp BP Pulse Ox 97.4 F L 74 19 122/69 96 08/21/16 08:15 08/21/16 08:15 08/21/16 08:15 08/21/16 08:15 08/21/16 08:15 Intake and Output: 08/21/16 08/21/16 06:59 18:59 Intake Total 240 Balance 240 - Medications Medications: Current Medications Acetaminophen (Tylenol 325mg Tab) 650 mg PO Q6 PRN PRN Reason: Pain, Mild (1-3) Last Admin: 08/17/16 09:26 Dose: 650 mg Bisacodyl (Dulcolax) 5 mg PO Q12 PRN PRN Reason: Constipation Last Admin: 08/18/16 14:47 Dose: 5 mg Enoxaparin Sodium (Lovenox) 40 mg SC DAILY [facility] Last Admin: 08/21/16 09:11 Dose: 40 mg Famotidine (Pepcid) 20 mg PO BID [facility] [place] Last Admin: 08/21/16 09:11 Dose: 20 mg Lidocaine (Lidoderm) 1 ea TD DAILY [facility] [place] Last Admin: 08/21/16 09:12 Dose: 1 ea Polyethylene Glycol (Miralax) 17 gm PO DAILY [facility] [place] Last Admin: 08/21/16 09:12 Dose: Not Given Simethicone (Mylicon Chew Tab) 80 mg PO QID PRN PRN Reason: GI distress Last Admin: 08/18/16 12:48 Dose: 80 mg Tamsulosin HCl (Flomax) 0.8 mg PO DAILY [facility] [place] Last Admin: 08/21/16 09:11 Dose: 0.8 mg Tramadol HCl (Ultram) 50 mg PO TID PRN PRN Reason: Pain, moderate (4-7) Last Admin: 08/20/16 22:06 Dose: 50 mg - Labs Labs: 08/21/16 11:16 08/21/16 11:16 - Extremities Exam Additional comments: Right knee: only tenderness is at quad tendon, and that is improved. No TTP to proximal tibia can be elicited. Mild pain with knee flexion No laxity to varus/ valgus stress. Calves soft NT neg homans, no increased swelling to knee. No effusion. no erythema. Assessment and Plan (1) Acetabular protrusion Assessment & Plan: stable repeat xrays show no change in position Status: Chronic (2) Fracture of tibia, proximal, right, closed Assessment & Plan: lateral tibial plateau stress fx healed repeat xrays show ? new medial tibial plateau fracture CT scan ordered, MRI contraindicated due to retained metallic hardware in patella knee immobilizer at all times, NWB at this time, PT aware d/w Dr. Pino, agrees with above Status: Chronic Radiology Interpretation - Radiology Interpretation #2 Interpretation: Patient Name / ID : [id number] / [id number] Exam Date : 08/21/2016 12:34:34 ( Approved ) Study Comment : Sex / Age : M / 71Y Creator : Vika Harrell MD Dictator : Vika Harrell MD [employer] Reading Teacher : [employer] Agent : Vika Harrell MD Approver2 : Report Date : 08/21/2016 13:45:04 My Comment : PROCEDURE: Right Knee Radiographs. HISTORY: f/u stress fx COMPARISON: 07/11/2016 FINDINGS: BONES: There is an apparent lucency in the medial tibial plateau. Status post open reduction internal fixation of a patellar fracture again seen is severe diffuse bone demineralization. Bone alignment is normal. JOINTS: There is moderate degenerative osteoarthrosis. JOINT EFFUSION: There is a small suprapatellar joint effusion. OTHER FINDINGS: There is mild prepatellar soft tissue swelling. IMPRESSION: 1. Question of nondisplaced fracture in the medial tibial plateau, new since the prior examination. A CT scan/MRI may be helpful for further evaluation. 2. Status post open reduction and internal fixation of a nondisplaced patellar fracture.
--- NOTE | 2016-08-21 18:01 | CT ---
EXAM: CT Right Lower Extremity Without Intravenous Contrast, Knee CLINICAL HISTORY: 71 years old, male; Pain; Knee; Right; Additional info: ? FX med tib plat on xrays TECHNIQUE: Axial computed tomography images of the right knee without intravenous contrast. This CT exam was performed using one or more of the following dose reduction techniques: automated exposure control, adjustment of the mA and/or kV according to patient size, and/or use of iterative reconstruction technique. Coronal and sagittal reformatted images were created and reviewed. EXAM DATE/TIME: 08/21/2016 2:45 PM COMPARISON: There are no prior studies for comparison. FINDINGS: Bones/joints: Bony structures are diffusely osteopenic. There are changes of remote patellar fracture with a fixation wire in the patella. There is no acute patellar fracture. Distal femur is intact. Proximal tibia is intact. Proximal fibula is intact. There are degenerative changes at the knee. There is narrowing of the patellofemoral joint space. Medial and lateral joint compartments are only mildly narrowed. There are small calcifications which may be ligamentous. There is dystrophic ossification adjacent to the tibial tubercle. Soft tissues: There is soft tissue swelling at the right knee greatest medially. There is no effusion in the knee joint. Vasculature: There are vascular calcifications.. IMPRESSION: Osteopenia and degenerative change, no acute fracture or joint effusion
--- NOTE | 2016-08-21 18:08 | RAD ---
PROCEDURE: Radiographs of the pelvis. HISTORY: f/u acetabular protrusion COMPARISON: 07/31/2016. FINDINGS: BONES: Stable position of components of right IGLESIA. Stable protrusio. No acute fractures. JOINTS: Sacroiliac Joints: Unremarkable. Pubic Symphysis: Unremarkable. OTHER FINDINGS: None. IMPRESSION: No significant interval change compared to the prior examination(s).
--- NOTE | 2016-08-22 07:36 | CP.PCM.PN ---
<Shabana Samano - Last Filed: 08/22/16 12:47> Subjective - Date & Time of Evaluation Date of Evaluation: 08/22/16 Time of Evaluation: 07:28 - Subjective Subjective: PGY 1 Medicine Note- Dr. Rutherford's service Patient seen and examined in no acute distress. Patient states that he has pain with ambulation requiring the use of a brace. Patient had a BM yesterday. He denies subjective fevers or chills, chest pain, nausea,vomiting, diarrhea, constipation, paresthesias at this time. Objective - Vital Signs/Intake and Output Vital Signs (last 24 hours): Temp Pulse Resp BP Pulse Ox 98.1 F 75 20 112/67 96 08/21/16 23:43 08/21/16 23:43 08/21/16 23:43 08/21/16 23:43 08/21/16 23:43 Intake and Output: 08/22/16 08/22/16 06:59 18:59 Intake Total 730 Balance 730 - Medications Medications: Current Medications Acetaminophen (Tylenol 325mg Tab) 650 mg PO Q6 PRN PRN Reason: Pain, Mild (1-3) Last Admin: 08/17/16 09:26 Dose: 650 mg Bisacodyl (Dulcolax) 5 mg PO Q12 PRN PRN Reason: Constipation Last Admin: 08/18/16 14:47 Dose: 5 mg Enoxaparin Sodium (Lovenox) 40 mg SC DAILY [facility] Last Admin: 08/21/16 09:11 Dose: 40 mg Famotidine (Pepcid) 20 mg PO BID [facility] Last Admin: 08/21/16 17:49 Dose: 20 mg Lidocaine (Lidoderm) 1 ea TD DAILY [facility] Last Admin: 08/21/16 09:12 Dose: 1 ea Polyethylene Glycol (Miralax) 17 gm PO DAILY [facility] Last Admin: 08/21/16 09:12 Dose: Not Given Simethicone (Mylicon Chew Tab) 80 mg PO QID PRN PRN Reason: GI distress Last Admin: 08/18/16 12:48 Dose: 80 mg Tamsulosin HCl (Flomax) 0.8 mg PO DAILY [facility] Last Admin: 08/21/16 09:11 Dose: 0.8 mg Tramadol HCl (Ultram) 50 mg PO TID PRN PRN Reason: Pain, moderate (4-7) Last Admin: 08/21/16 17:48 Dose: 50 mg - Labs Labs: 08/21/16 11:16 08/21/16 11:16 - Constitutional Appears: Non-toxic, No Acute Distress - Head Exam Head Exam: ATRAUMATIC, NORMAL INSPECTION, NORMOCEPHALIC - Eye Exam Eye Exam: EOMI, Normal appearance, PERRL Pupil Exam: NORMAL ACCOMODATION - ENT Exam ENT Exam: Mucous Membranes Moist - Neck Exam Neck Exam: Full ROM - Respiratory Exam Respiratory Exam: NORMAL BREATHING PATTERN. absent: Wheezes - Cardiovascular Exam Cardiovascular Exam: +S1, +S2 - GI/Abdominal Exam GI & Abdominal Exam: Soft, Normal Bowel Sounds - Extremities Exam Extremities Exam: absent: Full ROM Additional comments: R knee wrapped with immobilizer in place - Back Exam Back Exam: Full ROM - Neurological Exam Neurological Exam: Alert, Awake, CN II-XII Intact, Oriented x3 - Psychiatric Exam Psychiatric exam: Normal Affect, Normal Mood - Skin Skin Exam: Dry, Normal Color, Warm Assessment and Plan - Assessment and Plan (Free Text) Assessment: 1) Fracture of tibia, proximal, right, closed; pain management and physical therapy Continue physical therapy; goal is for use of cane per ortho. Cane present bedside - knee immobilizer at bedside, can be d/c to snf when tolerating cane Patient can ambulate with support with a walker; however patient needs to be able to walk with a cane. Patient is progressively weight bearing. No ortho intervention needed at this time. Tylenol 650 mg PO Q6 PRN mild pain Tramadol 25mg TID PRN. Patient instructed to ask for pain when necessary. Daily physical therapy to maximize ambulation with cane unassisted. 08/21 studies noted below: Lower Extremity CT: osteopenia and degenerative change, no acute fracture or joint effusion Knee XRAY: initial questionable fracture ruled out by CT imaging. Pelvis XRAY stable acetabular protrusion. Refer to complete reports 2) Gait Instability; will continue with PT/OT xrays right knee show resolved area of sclerosis at presumed stress fracture right lateral tibial plateau (MRI contraindicated due to metallic implant in patella) PT notified Will need continued PT until patient is stable with cane and f/u regarding knee immobilzer 3) BPH Flomax 0.8 mg PO daily 4) Anemia- resolved Hgb stable. Cont to monitor. weekly labs 5) Aneurysmal dilatation of ascending thoracic aorta; Currently 4.[address] imaging every [address] scan in 03/2016, should be monitored next month September 2016 6) Sacral decubitus- resolved Out of bed into chair daily Recommendations for silvadene creme to affected buttocks area 7) History of Urinary Tract Infection Continue to monitor Most recent 06/22 Currently asymptomatic UA negative 8) Seborrheic Dermatitis Continue Ketoconazole 2% to affected areas of face BID and Ketoconazole 2% Shampoo to hair twice weekly Cont to monitor progression 9) Constipation Dulcolax prn 10) Prophylactic Measure Labs weekly on Sunday Lovenox 40mg SC daily Pepcid 20mg PO BID Patient is homeless. Used to stay with friend, but no longer welcome there. Goal is to walk with cane so he can go to a snf (will not qualify with a walker) Pt pending transfer, awaiting placement PT: home w services and knee brace; currently working with physical therapy with single point cane <Sukhwinder Rutherford - Last Filed: 08/22/16 14:27> Objective - Vital Signs/Intake and Output Vital Signs (last 24 hours): Temp Pulse Resp BP Pulse Ox 97.9 F 78 20 122/73 96 08/22/16 09:34 08/22/16 09:34 08/22/16 09:34 08/22/16 09:34 08/22/16 09:34 Intake and Output: 08/22/16 08/22/16 06:59 18:59 Intake Total 730 Balance 730 - Medications Medications: Current Medications Acetaminophen (Tylenol 325mg Tab) 650 mg PO Q6 PRN PRN Reason: Pain, Mild (1-3) Last Admin: 08/17/16 09:26 Dose: 650 mg Bisacodyl (Dulcolax) 5 mg PO Q12 PRN PRN Reason: Constipation Last Admin: 08/18/16 14:47 Dose: 5 mg Enoxaparin Sodium (Lovenox) 40 mg SC DAILY [facility] Last Admin: 08/22/16 09:37 Dose: 40 mg Famotidine (Pepcid) 20 mg PO BID [facility] Last Admin: 08/22/16 09:37 Dose: 20 mg Lidocaine (Lidoderm) 1 ea TD DAILY [facility] Last Admin: 08/22/16 09:49 Dose: Not Given Polyethylene Glycol (Miralax) 17 gm PO DAILY [facility] Last Admin: 08/21/16 09:12 Dose: Not Given Simethicone (Mylicon Chew Tab) 80 mg PO QID PRN PRN Reason: GI distress Last Admin: 08/22/16 09:42 Dose: 80 mg Tamsulosin HCl (Flomax) 0.8 mg PO DAILY [facility] Last Admin: 08/22/16 09:37 Dose: 0.8 mg Tramadol HCl (Ultram) 50 mg PO TID PRN PRN Reason: Pain, moderate (4-7) Last Admin: 08/22/16 09:36 Dose: 50 mg - Labs Labs: 08/21/16 11:16 08/21/16 11:16 Attending/Attestation - Attestation I have personally seen and examined this patient.: Yes I have fully participated in the care of the patient.: Yes I have reviewed all pertinent clinical information, including history, physical exam and plan: Yes
[2016-08-22] MEDS: Lidocaine 5% Patch TD SCH ×2 (09:37→09:49)
[2016-08-22] MEDS: Enoxaparin 40 mg Syringe SC SCH (09:37)
[2016-08-22] MEDS: Simethicone 80 mg Chewtab PO PRN (09:42)
--- NOTE | 2016-08-22 09:55 | CP.PCM.PN ---
Subjective - Date & Time of Evaluation Date of Evaluation: 08/22/16 Time of Evaluation: 10:47 - Subjective Subjective: Patient complaining of right groin pain. No new complaints. Objective - Vital Signs/Intake and Output Vital Signs (last 24 hours): Temp Pulse Resp BP Pulse Ox 97.9 F 78 20 122/73 96 08/22/16 09:34 08/22/16 09:34 08/22/16 09:34 08/22/16 09:34 08/22/16 09:34 Intake and Output: 08/22/16 08/22/16 06:59 18:59 Intake Total 730 Balance 730 - Medications Medications: Current Medications Acetaminophen (Tylenol 325mg Tab) 650 mg PO Q6 PRN PRN Reason: Pain, Mild (1-3) Last Admin: 08/17/16 09:26 Dose: 650 mg Bisacodyl (Dulcolax) 5 mg PO Q12 PRN PRN Reason: Constipation Last Admin: 08/18/16 14:47 Dose: 5 mg Enoxaparin Sodium (Lovenox) 40 mg SC DAILY [facility] Last Admin: 08/22/16 09:37 Dose: 40 mg Famotidine (Pepcid) 20 mg PO BID [facility] Last Admin: 08/22/16 09:37 Dose: 20 mg Lidocaine (Lidoderm) 1 ea TD DAILY [facility] Last Admin: 08/22/16 09:49 Dose: Not Given Polyethylene Glycol (Miralax) 17 gm PO DAILY [facility] Last Admin: 08/21/16 09:12 Dose: Not Given Simethicone (Mylicon Chew Tab) 80 mg PO QID PRN PRN Reason: GI distress Last Admin: 08/22/16 09:42 Dose: 80 mg Tamsulosin HCl (Flomax) 0.8 mg PO DAILY [facility] Last Admin: 08/22/16 09:37 Dose: 0.8 mg Tramadol HCl (Ultram) 50 mg PO TID PRN PRN Reason: Pain, moderate (4-7) Last Admin: 08/22/16 09:36 Dose: 50 mg - Labs Labs: 08/21/16 11:16 08/21/16 11:16 - Extremities Exam Additional comments: Right knee: no swelling, erythema, minimally tender to quad tendon. Calves soft NT neg homans+DP/PT pulses. Assessment and Plan (1) Acetabular protrusion Assessment & Plan: stable no ortho intervention WBAT Status: Chronic (2) Fracture of tibia, proximal, right, closed Assessment & Plan: No acute fracture resume PT for strengthening and ROM of knee, immob prn as assists patient in ambulation per PT WBAT RLE d/w Dr. Pino, agrees with above Status: Chronic Radiology Interpretation - Radiology Interpretation #2 Interpretation: Patient Name / ID : ESME QUESADA / [id number] Exam Date : 08/21/2016 16:44:48 ( Approved ) Study Comment : Sex / Age : M / 71Y Creator : OMEGA SCOTT Dictator : Radiation Monitor : Breading Machine Tender : OMEGA SCOTT Approver2 : Report Date : 08/21/2016 18:01:00 My Comment : [facility] Division of Radiology [address] [place] [address] Tel. no. Patient Name: DIPAK VICTORIA Pt. Address: [address] [place] [address] Rec #: [id number] [place] [address]: Jayce West PA-C Pt Order Location: [facility] : 1945 Male Age: 71 Order #: [id number] Reason for exam: ?FX MED TIB PLAT ON XRAYS CT Scan EXT LOWER W/O CONTRAST RIGHT Exam Date: 08/21/16 This imaging exam was performed at [facility] EXAM: CT Right Lower Extremity Without Intravenous Contrast, Knee CLINICAL HISTORY: 71 years old, male; Pain; Knee; Right; Additional info: ? FX med tib plat on xrays TECHNIQUE: Axial computed tomography images of the right knee without intravenous contrast. This CT exam was performed using one or more of the following dose reduction techniques: automated exposure control, adjustment of the mA and/or kV according to patient size, and/or use of iterative reconstruction technique. Coronal and sagittal reformatted images were created and reviewed. EXAM DATE/TIME: 08/21/2016 2:45 PM COMPARISON: There are no prior studies for comparison. FINDINGS: Bones/joints: Bony structures are diffusely osteopenic. There are changes of remote patellar fracture with a fixation wire in the patella. There is no acute patellar fracture. Distal femur is intact. Proximal tibia is intact. Proximal fibula is intact. There are degenerative changes at the knee. There is narrowing of the patellofemoral joint space. Medial and lateral joint compartments are only mildly narrowed. There are small calcifications which may be ligamentous. There is dystrophic ossification adjacent to the tibial tubercle. Soft tissues: There is soft tissue swelling at the right knee greatest medially. There is no effusion in the knee joint. Vasculature: There are vascular calcifications.. IMPRESSION: Osteopenia and degenerative change, no acute fracture or joint effusion Dictated By: Omega Scott MD, MD Dictated Date/Time: 08/21/161800 Signed By: Omega Scott MD Date Signed: 1800 Transcribed By: [facility] Transcribe Date/Time : 08/21/161800 ROSHAN/ZENIA
--- NOTE | 2016-08-23 06:31 | CP.PCM.PN ---
<Shabana Samano - Last Filed: 08/23/16 12:44> Subjective - Date & Time of Evaluation Date of Evaluation: 08/23/16 Time of Evaluation: 07:00 - Subjective Subjective: PGY 1 Medicine Note- Dr. Rutherford's service Patient seen and examined in no acute distress. Patient states that his knee hurts. Patient stated that he does not ask for pain medications because he thought that the nurse would just bring it to him. He was encouraged to ask for pain meds when the pain begins since he will only receive on an as needed basis. He denies subjective fevers or chills, chest pain, palpitations, nausea, vomiting, diarrhea, constipation, paresthesias at this time. Objective - Vital Signs/Intake and Output Vital Signs (last 24 hours): Temp Pulse Resp BP Pulse Ox 98 F 73 16 112/67 99 08/23/16 00:28 08/23/16 00:28 08/23/16 00:28 08/23/16 00:28 08/23/16 00:28 Intake and Output: 08/22/16 08/23/16 18:59 06:59 Intake Total 450 Balance 450 - Medications Medications: Current Medications Acetaminophen (Tylenol 325mg Tab) 650 mg PO Q6 PRN PRN Reason: Pain, Mild (1-3) Last Admin: 08/17/16 09:26 Dose: 650 mg Bisacodyl (Dulcolax) 5 mg PO Q12 PRN PRN Reason: Constipation Last Admin: 08/18/16 14:47 Dose: 5 mg Enoxaparin Sodium (Lovenox) 40 mg SC DAILY [facility] Last Admin: 08/22/16 09:37 Dose: 40 mg Famotidine (Pepcid) 20 mg PO BID [facility] Last Admin: 08/22/16 17:58 Dose: 20 mg Lidocaine (Lidoderm) 1 ea TD DAILY [facility] Last Admin: 08/22/16 09:49 Dose: Not Given Polyethylene Glycol (Miralax) 17 gm PO DAILY [facility] Last Admin: 08/21/16 09:12 Dose: Not Given Simethicone (Mylicon Chew Tab) 80 mg PO QID PRN PRN Reason: GI distress Last Admin: 08/22/16 09:42 Dose: 80 mg Tamsulosin HCl (Flomax) 0.8 mg PO DAILY [facility] Last Admin: 08/22/16 09:37 Dose: 0.8 mg Tramadol HCl (Ultram) 50 mg PO TID PRN PRN Reason: Pain, moderate (4-7) Last Admin: 08/22/16 09:36 Dose: 50 mg - Labs Labs: 08/21/16 11:16 08/21/16 11:16 - Constitutional Appears: Non-toxic, No Acute Distress - Head Exam Head Exam: ATRAUMATIC, NORMAL INSPECTION, NORMOCEPHALIC - Eye Exam Eye Exam: EOMI, Normal appearance, PERRL Pupil Exam: NORMAL ACCOMODATION - ENT Exam ENT Exam: Mucous Membranes Moist - Neck Exam Neck Exam: Full ROM - Respiratory Exam Respiratory Exam: Clear to Ausculation Bilateral, NORMAL BREATHING PATTERN. absent: Wheezes - Cardiovascular Exam Cardiovascular Exam: REGULAR RHYTHM, +S1, +S2 - GI/Abdominal Exam GI & Abdominal Exam: Soft, Normal Bowel Sounds - Extremities Exam Extremities Exam: Normal Capillary Refill, Normal Inspection. absent: Full ROM - Back Exam Back Exam: Full ROM - Neurological Exam Neurological Exam: Alert, Awake, CN II-XII Intact, Oriented x3. absent: Normal Gait - Psychiatric Exam Psychiatric exam: Normal Affect, Normal Mood - Skin Skin Exam: Dry, Intact, Normal Color, Warm Assessment and Plan - Assessment and Plan (Free Text) Assessment: 1) Fracture of tibia, proximal, right, closed; pain management and physical therapy Continue physical therapy; goal is for use of cane per ortho. Cane present bedside - knee immobilizer at bedside, can be d[place]c [place] [facility] when tolerating cane Patient can ambulate with support with a walker; however patient needs to be able to walk with a cane. Patient is progressively weight bearing. No ortho intervention needed at this time. Ortho monitoring. Tylenol 650 mg PO Q6 PRN mild pain Tramadol 25mg TID PRN. It was re-iterated that patient ask for pain when necessary. Daily physical therapy to maximize ambulation with cane unassisted. 08/21 studies noted below: Lower Extremity CT: osteopenia and degenerative change, no acute fracture or joint effusion Knee XRAY: initial questionable fracture ruled out by CT imaging. Pelvis XRAY stable acetabular protrusion. Refer to complete reports 2) Gait Instability; will continue with PT/OT xrays right knee show resolved area of sclerosis at presumed stress fracture right lateral tibial plateau (MRI contraindicated due to metallic implant in patella) PT notified Will need continued PT until patient is stable with cane Quad cane to be provided 3) BPH Flomax 0.8 mg PO daily 4) Anemia- resolved Hgb stable. Cont to monitor. weekly labs 5) Aneurysmal dilatation of ascending thoracic aorta; Currently 4.[address] imaging every [address] scan in 03/2016, should be monitored next month September 2016 6) Sacral decubitus- resolved Out of bed into chair daily Recommendations for silvadene creme to affected buttocks area 7) History of Urinary Tract Infection Continue to monitor Most recent 06/22 Currently asymptomatic UA negative 8) Seborrheic Dermatitis Continue Ketoconazole 2% to affected areas of face BID and Ketoconazole 2% Shampoo to hair twice weekly Cont to monitor progression 9) Constipation Dulcolax prn 10) Prophylactic Measure Labs weekly on Sunday Lovenox 40mg SC daily Pepcid 20mg PO BID Patient is homeless. Used to stay with friend, but no longer welcome there. Goal is to walk with cane so he can go to a [place] [facility] [place] (will not qualify with a walker) Pt pending transfer, awaiting placement PT: home w services and knee brace; currently working with physical therapy with single point cane <Sukhwinder Rutherford - Last Filed: 08/23/16 15:21> Objective - Vital Signs/Intake and Output Vital Signs (last 24 hours): Temp Pulse Resp BP Pulse Ox 98.5 F 82 20 109/69 97 08/23/16 08:00 08/23/16 08:00 08/23/16 08:00 08/23/16 08:00 08/23/16 08:00 Intake and Output: 08/23/16 08/23/16 06:59 18:59 Intake Total 810 400 Balance 810 400 - Medications Medications: Current Medications Acetaminophen (Tylenol 325mg Tab) 650 mg PO Q6 PRN PRN Reason: Pain, Mild (1-3) Last Admin: 08/23/16 09:12 Dose: 650 mg Bisacodyl (Dulcolax) 5 mg PO Q12 PRN PRN Reason: Constipation Last Admin: 08/18/16 14:47 Dose: 5 mg Enoxaparin Sodium (Lovenox) 40 mg SC DAILY [facility] Last Admin: 08/23/16 09:12 Dose: 40 mg Famotidine (Pepcid) 20 mg PO BID [facility] Last Admin: 08/23/16 09:12 Dose: 20 mg Lidocaine (Lidoderm) 1 ea TD DAILY [facility] Last Admin: 08/23/16 09:13 Dose: 1 ea Polyethylene Glycol (Miralax) 17 gm PO DAILY [facility] Last Admin: 08/21/16 09:12 Dose: Not Given Simethicone (Mylicon Chew Tab) 80 mg PO QID PRN PRN Reason: GI distress Last Admin: 08/22/16 09:42 Dose: 80 mg Tamsulosin HCl (Flomax) 0.8 mg PO DAILY [facility] Last Admin: 08/23/16 09:11 Dose: 0.8 mg Tramadol HCl (Ultram) 50 mg PO TID PRN PRN Reason: Pain, moderate (4-7) Last Admin: 08/23/16 09:11 Dose: 50 mg - Labs Labs: 08/21/16 11:16 08/21/16 11:16 Attending/Attestation - Attestation I have personally seen and examined this patient.: Yes I have fully participated in the care of the patient.: Yes I have reviewed all pertinent clinical information, including history, physical exam and plan: Yes Notes (Text): 08/23/16 15:19 Medical attending: Patient was seen and examined by me, agrees the above note by medical dermatologist. At this time I don't have any new news to report, the patient continues to report that he has pain in his knee and that he does not want to move around very much. Were try to encourage physical therapy. He is not currently on any acute distress. As documented before no [place] [facility] [place] willing to take the patient due to his immobility and the need for rolling walker. Thank you very much, Sukhwinder Rutherford
[2016-08-23] MEDS: Enoxaparin 40 mg Syringe SC SCH (09:12)
[2016-08-23] MEDS: Lidocaine 5% Patch TD SCH (09:13)
[2016-08-24] MEDS: Lidocaine 5% Patch TD SCH (11:04)
[2016-08-24] MEDS: Enoxaparin 40 mg Syringe SC SCH (11:04)
[2016-08-24] MEDS: Simethicone 80 mg Chewtab PO PRN (11:21)
--- NOTE | 2016-08-24 14:46 | CP.PCM.PN ---
Subjective - Date & Time of Evaluation Date of Evaluation: 08/24/16 Time of Evaluation: 10:11 - Subjective Subjective: PGY 1 Medicine Note- Dr. Rutherford's service Patient seen and examined in no acute distress. Patient states that his right knee and stomach hurt. He denies subjective fevers or chills, chest pain, palpitations, nausea,vomiting, diarrhea, constipation, paresthesias, visual changes or headaches at this time. Objective - Vital Signs/Intake and Output Vital Signs (last 24 hours): Temp Pulse Resp BP Pulse Ox 97.9 F 70 20 121/77 97 08/24/16 07:25 08/24/16 07:25 08/24/16 07:25 08/24/16 07:25 08/24/16 07:25 Intake and Output: 08/24/16 08/24/16 06:59 18:59 Intake Total 650 300 Balance 650 300 - Medications Medications: Current Medications Acetaminophen (Tylenol 325mg Tab) 650 mg PO Q6 PRN PRN Reason: Pain, Mild (1-3) Last Admin: 08/23/16 09:12 Dose: 650 mg Bisacodyl (Dulcolax) 5 mg PO Q12 PRN PRN Reason: Constipation Last Admin: 08/18/16 14:47 Dose: 5 mg Enoxaparin Sodium (Lovenox) 40 mg SC DAILY [facility] Last Admin: 08/24/16 11:04 Dose: 40 mg Famotidine (Pepcid) 20 mg PO BID [facility] Last Admin: 08/24/16 11:04 Dose: 20 mg Lidocaine (Lidoderm) 1 ea TD DAILY [facility] Last Admin: 08/24/16 11:04 Dose: 1 ea Polyethylene Glycol (Miralax) 17 gm PO DAILY [facility] Last Admin: 08/21/16 09:12 Dose: Not Given Simethicone (Mylicon Chew Tab) 80 mg PO QID PRN PRN Reason: GI distress Last Admin: 08/24/16 11:21 Dose: 80 mg Tamsulosin HCl (Flomax) 0.8 mg PO DAILY [facility] Last Admin: 08/24/16 11:03 Dose: 0.8 mg Tramadol HCl (Ultram) 50 mg PO TID PRN PRN Reason: Pain, moderate (4-7) Last Admin: 08/24/16 11:21 Dose: 50 mg - Labs Labs: 08/21/16 11:16 08/21/16 11:16 - Constitutional Appears: Non-toxic, No Acute Distress - Head Exam Head Exam: ATRAUMATIC, NORMAL INSPECTION, NORMOCEPHALIC - Eye Exam Eye Exam: EOMI, Normal appearance, PERRL Pupil Exam: PERRL - ENT Exam ENT Exam: Mucous Membranes Moist - Neck Exam Neck Exam: Full ROM - Respiratory Exam Respiratory Exam: NORMAL BREATHING PATTERN. absent: Wheezes - Cardiovascular Exam Cardiovascular Exam: +S1, +S2 - GI/Abdominal Exam GI & Abdominal Exam: Soft, Normal Bowel Sounds - Extremities Exam Extremities Exam: Normal Inspection. absent: Full ROM Additional comments: right knee wrapped in demond bandage with leg extended. - Back Exam Back Exam: Full ROM - Neurological Exam Neurological Exam: Alert, Awake, CN II-XII Intact, Oriented x3. absent: Normal Gait - Psychiatric Exam Psychiatric exam: Normal Affect, Normal Mood - Skin Skin Exam: Dry, Intact, Normal Color, Rash (dry, scaly rashes on shins bilaterally), Warm Assessment and Plan - Assessment and Plan (Free Text) Assessment: 1) Fracture of tibia, proximal, right, closed; pain management and physical therapy Continue physical therapy; goal is for use of cane per ortho. Cane present bedside - knee immobilizer at bedside, can be d/c to [facility] when tolerating cane Patient can ambulate with support with a walker; however patient needs to be able to walk with a cane. Patient is progressively weight bearing. No ortho intervention needed at this time. Ortho monitoring. Tylenol 650 mg PO Q6 PRN mild pain Tramadol 25mg TID PRN. It was re-iterated that patient ask for pain when necessary. Daily physical therapy to maximize ambulation with cane unassisted. 08/21 studies noted below: Lower Extremity CT: osteopenia and degenerative change, no acute fracture or joint effusion Knee XRAY: initial questionable fracture ruled out by CT imaging. Pelvis XRAY stable acetabular protrusion. Refer to complete reports 2) Gait Instability; will continue with PT/OT xrays right knee show resolved area of sclerosis at presumed stress fracture right lateral tibial plateau (MRI contraindicated due to metallic implant in patella) PT notified Will need continued PT until patient is stable with cane Quad cane to be provided 3) BPH Flomax 0.8 mg PO daily 4) Anemia- resolved Hgb stable. Cont to monitor. weekly labs 5) Aneurysmal dilatation of ascending thoracic aorta; Currently 4.[address] imaging every [address] scan in 03/2016, should be monitored next month September 2016 6) Sacral decubitus- resolved Out of bed into chair daily Recommendations for silvadene creme to affected buttocks area 7) History of Urinary Tract Infection Continue to monitor Most recent 06/22 Currently asymptomatic UA negative 8) Seborrheic Dermatitis Continue Ketoconazole 2% to affected areas of face BID and Ketoconazole 2% Shampoo to hair twice weekly Cont to monitor progression 9) Constipation Dulcolax prn 10) Prophylactic Measure Labs weekly on Sunday Lovenox 40mg SC daily Pepcid 20mg PO BID Patient is homeless. Used to stay with friend, but no longer welcome there. Goal is to walk with cane so he can go to a prison (will not qualify with a walker) Pt pending transfer, awaiting placement PT: home w services and knee brace; currently working with physical therapy with single point cane Patient is encouraged to leave bed curtains open to prevent being closed off from surroundings.
[2016-08-25] MEDS: Enoxaparin 40 mg Syringe SC SCH (10:26)
[2016-08-25] MEDS: Lidocaine 5% Patch TD SCH (10:27)
--- NOTE | 2016-08-25 11:39 | CP.PCM.PN ---
Subjective - Date & Time of Evaluation Date of Evaluation: 08/25/16 Time of Evaluation: 08:20 - Subjective Subjective: PGY1 Progress Note for Dr. Rutherford Patient seen and examined. Patient with complaint of right knee pain but denies other complaints at this time. Objective - Vital Signs/Intake and Output Vital Signs (last 24 hours): Temp Pulse Resp BP Pulse Ox 97.5 F L 65 20 123/68 97 08/25/16 08:00 08/25/16 08:00 08/25/16 08:00 08/25/16 08:00 08/25/16 08:00 Intake and Output: 08/25/16 08/25/16 06:59 18:59 Intake Total 540 Balance 540 - Medications Medications: Current Medications Acetaminophen (Tylenol 325mg Tab) 650 mg PO Q6 PRN PRN Reason: Pain, Mild (1-3) Last Admin: 08/24/16 23:02 Dose: 650 mg Bisacodyl (Dulcolax) 5 mg PO Q12 PRN PRN Reason: Constipation Last Admin: 08/18/16 14:47 Dose: 5 mg Enoxaparin Sodium (Lovenox) 40 mg SC DAILY [facility] Last Admin: 08/25/16 10:26 Dose: 40 mg Famotidine (Pepcid) 20 mg PO BID [facility] Last Admin: 08/25/16 10:26 Dose: 20 mg Lidocaine (Lidoderm) 1 ea TD DAILY [facility] Last Admin: 08/25/16 10:27 Dose: 1 ea Polyethylene Glycol (Miralax) 17 gm PO DAILY [facility] Last Admin: 08/21/16 09:12 Dose: Not Given Simethicone (Mylicon Chew Tab) 80 mg PO QID PRN PRN Reason: GI distress Last Admin: 08/24/16 11:21 Dose: 80 mg Tamsulosin HCl (Flomax) 0.8 mg PO DAILY [facility] Last Admin: 08/25/16 10:26 Dose: 0.8 mg Tramadol HCl (Ultram) 50 mg PO TID PRN PRN Reason: Pain, moderate (4-7) Last Admin: 08/24/16 18:32 Dose: 50 mg - Labs Labs: 08/21/16 11:16 08/21/16 11:16 - Constitutional Appears: Non-toxic, No Acute Distress - Head Exam Head Exam: ATRAUMATIC, NORMOCEPHALIC - Eye Exam Eye Exam: EOMI - ENT Exam ENT Exam: Mucous Membranes Moist - Respiratory Exam Respiratory Exam: Clear to Ausculation Bilateral, NORMAL BREATHING PATTERN - Cardiovascular Exam Cardiovascular Exam: +S1, +S2 - GI/Abdominal Exam GI & Abdominal Exam: Soft, Normal Bowel Sounds - Extremities Exam Additional comments: right knee wrapped, tenderness of palpation - Neurological Exam Neurological Exam: Alert, Awake - Psychiatric Exam Psychiatric exam: Normal Affect - Skin Skin Exam: Warm Assessment and Plan - Assessment and Plan (Free Text) Assessment: 1) Fracture of tibia, proximal, right, closed; pain management and physical therapy continue PT with WBAT for RLE Continue physical therapy; goal is for use of cane per ortho. Cane present bedside - knee immobilizer at bedside, can be d/c to detention when tolerating cane Patient can ambulate with support with a walker; however patient needs to be able to walk with a cane. Patient is progressively weight bearing. No ortho intervention needed at this time. Ortho monitoring. Tylenol 650 mg PO Q6 PRN mild pain Tramadol 25mg TID PRN. It was re-iterated that patient ask for pain when necessary. Daily physical therapy to maximize ambulation with cane unassisted. 08/21 studies noted below: Lower Extremity CT: osteopenia and degenerative change, no acute fracture or joint effusion Knee XRAY: initial questionable fracture ruled out by CT imaging. Pelvis XRAY stable acetabular protrusion. Refer to complete reports 2) Gait Instability; will continue with PT/OT xrays right knee show resolved area of sclerosis at presumed stress fracture right lateral tibial plateau (MRI contraindicated due to metallic implant in patella) PT notified Will need continued PT until patient is stable with cane Quad cane to be provided 3) BPH Flomax 0.8 mg PO daily 4) Anemia- resolved Hgb stable. Cont to monitor. weekly labs 5) Aneurysmal dilatation of ascending thoracic aorta; Currently 4.[address] imaging every [address] scan in 03/2016, should be monitored next month September 2016 6) Sacral decubitus- resolved Out of bed into chair daily Recommendations for silvadene creme to affected buttocks area 7) History of Urinary Tract Infection Continue to monitor Most recent 06/22 Currently asymptomatic UA negative 8) Seborrheic Dermatitis Continue Ketoconazole 2% to affected areas of face BID and Ketoconazole 2% Shampoo to hair twice weekly Cont to monitor progression 9) Constipation Dulcolax prn 10) Prophylactic Measure Labs weekly on Sunday Lovenox 40mg SC daily Pepcid 20mg PO BID Patient is homeless. Used to stay with friend, but no longer welcome there. Goal is to walk with cane so he can go to a detention (will not qualify with a walker) Pt pending transfer, awaiting placement PT: home w services and knee brace; currently working with physical therapy with single point cane Patient is encouraged to leave bed curtains open to prevent being closed off from surroundings.
[2016-08-25] MEDS: Simethicone 80 mg Chewtab PO PRN (12:10)
--- NOTE | 2016-08-26 01:34 | CP.PCM.PN ---
<Shabana Samano - Last Filed: 08/26/16 01:32> Subjective - Date & Time of Evaluation Date of Evaluation: 08/26/16 Time of Evaluation: 00:31 - Subjective Subjective: PGY 1 Medicine Note- Dr. Rutherford's service Patient seen and examined in no acute distress. Patient resting comfortably in bed. He denies subjective fevers or chills, chest pain, palpitations, nausea, vomiting, abdominal pain, diarrhea, constipation, paresthesias, visual changes or headaches at this time. Objective - Vital Signs/Intake and Output Vital Signs (last 24 hours): Temp Pulse Resp BP Pulse Ox 98.1 F 71 20 114/67 97 08/26/16 00:00 08/26/16 00:00 08/26/16 00:00 08/26/16 00:00 08/26/16 00:00 Intake and Output: 08/25/16 08/26/16 18:59 06:59 Intake Total 500 300 Balance 500 300 - Medications Medications: Current Medications Acetaminophen (Tylenol 325mg Tab) 650 mg PO Q6 PRN PRN Reason: Pain, Mild (1-3) Last Admin: 08/24/16 23:02 Dose: 650 mg Bisacodyl (Dulcolax) 5 mg PO Q12 PRN PRN Reason: Constipation Last Admin: 08/18/16 14:47 Dose: 5 mg Enoxaparin Sodium (Lovenox) 40 mg SC DAILY [facility] Last Admin: 08/25/16 10:26 Dose: 40 mg Famotidine (Pepcid) 20 mg PO BID [facility] Last Admin: 08/25/16 17:06 Dose: 20 mg Lidocaine (Lidoderm) 1 ea TD DAILY [facility] Last Admin: 08/25/16 10:27 Dose: 1 ea Polyethylene Glycol (Miralax) 17 gm PO DAILY [facility] Last Admin: 08/21/16 09:12 Dose: Not Given Simethicone (Mylicon Chew Tab) 80 mg PO QID PRN PRN Reason: GI distress Last Admin: 08/25/16 12:10 Dose: 80 mg Tamsulosin HCl (Flomax) 0.8 mg PO DAILY [facility] Last Admin: 08/25/16 10:26 Dose: 0.8 mg Tramadol HCl (Ultram) 50 mg PO TID PRN PRN Reason: Pain, moderate (4-7) Last Admin: 08/25/16 20:54 Dose: 50 mg - Labs Labs: 08/21/16 11:16 08/21/16 11:16 - Constitutional Appears: No Acute Distress - Head Exam Head Exam: ATRAUMATIC, NORMAL INSPECTION, NORMOCEPHALIC - Eye Exam Eye Exam: EOMI, Normal appearance, PERRL Pupil Exam: NORMAL ACCOMODATION - ENT Exam ENT Exam: Mucous Membranes Moist - Neck Exam Neck Exam: Full ROM - Respiratory Exam Respiratory Exam: NORMAL BREATHING PATTERN. absent: Wheezes - Cardiovascular Exam Cardiovascular Exam: +S1, +S2 - GI/Abdominal Exam GI & Abdominal Exam: Soft, Normal Bowel Sounds - Extremities Exam Extremities Exam: Normal Capillary Refill. absent: Full ROM Additional comments: right knee in demond wrap - Back Exam Back Exam: absent: Full ROM - Neurological Exam Neurological Exam: Alert, Awake, CN II-XII Intact, Oriented x3 - Psychiatric Exam Psychiatric exam: Normal Affect, Normal Mood - Skin Skin Exam: Dry, Warm Additional comments: scaly dried skin on shins b/l Assessment and Plan - Assessment and Plan (Free Text) Assessment: 1) Fracture of tibia, proximal, right, closed; pain management and physical therapy Continue physical therapy; goal is for use of cane per ortho. Cane present bedside - knee immobilizer at bedside, can be d/c to halfway when tolerating cane Patient can ambulate with support with a walker; however patient needs to be able to walk with a cane. Patient is progressively weight bearing. No ortho intervention needed at this time. Ortho monitoring. Tylenol 650 mg PO Q6 PRN mild pain Tramadol 25mg TID PRN. It was re-iterated that patient ask for pain when necessary. Daily physical therapy to maximize ambulation with cane unassisted. 08/21 studies noted below: Lower Extremity CT: osteopenia and degenerative change, no acute fracture or joint effusion Knee XRAY: initial questionable fracture ruled out by CT imaging. Pelvis XRAY stable acetabular protrusion. Refer to complete reports 2) Gait Instability; will continue with PT/OT xrays right knee show resolved area of sclerosis at presumed stress fracture right lateral tibial plateau (MRI contraindicated due to metallic implant in patella) PT notified Will need continued PT until patient is stable with cane Quad cane to be provided 3) BPH Flomax 0.8 mg PO daily 4) Anemia- resolved Hgb stable. Cont to monitor. weekly labs 5) Aneurysmal dilatation of ascending thoracic aorta; Currently 4.[address] imaging every [address] scan in 03/2016, should be monitored next month September 2016 6) Sacral decubitus- resolved Out of bed into chair daily Recommendations for silvadene creme to affected buttocks area 7) History of Urinary Tract Infection Continue to monitor Most recent 06/22 Currently asymptomatic UA negative 8) Seborrheic Dermatitis Continue Ketoconazole 2% to affected areas of face BID and Ketoconazole 2% Shampoo to hair twice weekly Cont to monitor progression 9) Constipation Dulcolax prn 10) Prophylactic Measure Labs weekly on Sunday Lovenox 40mg SC daily Pepcid 20mg PO BID Patient is homeless. Used to stay with friend, but no longer welcome there. Goal is to walk with cane so he can go to a halfway (will not qualify with a walker) Pt pending transfer, awaiting placement PT: home w services and knee brace; currently working with physical therapy with single point cane Patient is encouraged to leave bed curtains open to prevent being closed off from surroundings. <Sukhwinder Rutherford H - Last Filed: 08/26/16 11:57> Objective - Vital Signs/Intake and Output Vital Signs (last 24 hours): Temp Pulse Resp BP Pulse Ox 98.1 F 71 20 114/67 97 08/26/16 00:00 08/26/16 00:00 08/26/16 00:00 08/26/16 00:00 08/26/16 00:00 Intake and Output: 08/26/16 08/26/16 06:59 18:59 Intake Total 540 Balance 540 - Medications Medications: Current Medications Acetaminophen (Tylenol 325mg Tab) 650 mg PO Q6 PRN PRN Reason: Pain, Mild (1-3) Last Admin: 08/24/16 23:02 Dose: 650 mg Bisacodyl (Dulcolax) 5 mg PO Q12 PRN PRN Reason: Constipation Last Admin: 08/18/16 14:47 Dose: 5 mg Enoxaparin Sodium (Lovenox) 40 mg SC DAILY [facility] Last Admin: 08/26/16 10:00 Dose: 40 mg Famotidine (Pepcid) 20 mg PO BID [facility] Last Admin: 08/26/16 09:57 Dose: 20 mg Lidocaine (Lidoderm) 1 ea TD DAILY [facility] Last Admin: 08/26/16 09:57 Dose: 1 ea Polyethylene Glycol (Miralax) 17 gm PO DAILY [facility] Last Admin: 08/21/16 09:12 Dose: Not Given Simethicone (Mylicon Chew Tab) 80 mg PO QID PRN PRN Reason: GI distress Last Admin: 08/25/16 12:10 Dose: 80 mg Tamsulosin HCl (Flomax) 0.8 mg PO DAILY [facility] Last Admin: 08/26/16 09:57 Dose: 0.8 mg Tramadol HCl (Ultram) 50 mg PO TID PRN PRN Reason: Pain, moderate (4-7) Last Admin: 08/25/16 20:54 Dose: 50 mg - Labs Labs: 08/21/16 11:16 08/21/16 11:16 Attending/Attestation - Attestation I have personally seen and examined this patient.: Yes I have fully participated in the care of the patient.: Yes I have reviewed all pertinent clinical information, including history, physical exam and plan: Yes Notes (Text): 08/26/16 11:55 Medical Attending: Patient was seen and examined by me. Agree with the above note by resident Patient needs to keep the bed curtains open. Every single time I come to see him they are closed and he is glued to the television/computer. If you allow the curtains to be closed he will continue to isolate himself into his small world in his mind with no reguard to potential recovery. I will write a nursing communication. Sukhwinder Rutherford
[2016-08-26] MEDS: Lidocaine 5% Patch TD SCH (09:57)
[2016-08-26] MEDS: Enoxaparin 40 mg Syringe SC SCH (10:00)
--- NOTE | 2016-08-27 04:23 | CP.PCM.PN ---
Subjective - Date & Time of Evaluation Date of Evaluation: 08/27/16 Time of Evaluation: 00:35 - Subjective Subjective: PGY 1 Medicine Note- Dr. Rutherford's service Patient seen and examined in no acute distress. Patient states that his knee hurts all the time. Patient discussed wanting his bed curtains to remain closed. He denies subjective fevers or chills, chest pain, palpitations, nausea, vomiting, diarrhea, constipation, paresthesias, visual changes or headaches at this time. Objective - Vital Signs/Intake and Output Vital Signs (last 24 hours): Temp Pulse Resp BP Pulse Ox 98.5 F 76 20 119/69 98 08/27/16 00:00 08/27/16 00:00 08/27/16 00:00 08/27/16 00:00 08/27/16 00:00 Intake and Output: 08/26/16 08/27/16 18:59 06:59 Intake Total 500 Balance 500 - Medications Medications: Current Medications Acetaminophen (Tylenol 325mg Tab) 650 mg PO Q6 PRN PRN Reason: Pain, Mild (1-3) Last Admin: 08/24/16 23:02 Dose: 650 mg Bisacodyl (Dulcolax) 5 mg PO Q12 PRN PRN Reason: Constipation Last Admin: 08/18/16 14:47 Dose: 5 mg Enoxaparin Sodium (Lovenox) 40 mg SC DAILY [facility] Last Admin: 08/26/16 10:00 Dose: 40 mg Famotidine (Pepcid) 20 mg PO BID [facility] Last Admin: 08/26/16 19:04 Dose: 20 mg Lidocaine (Lidoderm) 1 ea TD DAILY [facility] Last Admin: 08/26/16 09:57 Dose: 1 ea Polyethylene Glycol (Miralax) 17 gm PO DAILY [facility] Last Admin: 08/21/16 09:12 Dose: Not Given Simethicone (Mylicon Chew Tab) 80 mg PO QID PRN PRN Reason: GI distress Last Admin: 08/25/16 12:10 Dose: 80 mg Tamsulosin HCl (Flomax) 0.8 mg PO DAILY [facility] Last Admin: 08/26/16 09:57 Dose: 0.8 mg Tramadol HCl (Ultram) 50 mg PO TID PRN PRN Reason: Pain, moderate (4-7) Last Admin: 08/25/16 20:54 Dose: 50 mg - Labs Labs: 08/21/16 11:16 08/21/16 11:16 - Constitutional Appears: Non-toxic, No Acute Distress - Head Exam Head Exam: ATRAUMATIC, NORMAL INSPECTION, NORMOCEPHALIC - Eye Exam Eye Exam: EOMI, Normal appearance, PERRL Pupil Exam: NORMAL ACCOMODATION - ENT Exam ENT Exam: Mucous Membranes Moist - Neck Exam Neck Exam: Full ROM, Normal Inspection - Respiratory Exam Respiratory Exam: NORMAL BREATHING PATTERN. absent: Wheezes - Cardiovascular Exam Cardiovascular Exam: REGULAR RHYTHM, +S1, +S2 - GI/Abdominal Exam GI & Abdominal Exam: Soft, Normal Bowel Sounds - Extremities Exam Extremities Exam: Normal Capillary Refill. absent: Full ROM Additional comments: demond bandage wrapped around right knee, extended - Back Exam Back Exam: Full ROM - Neurological Exam Neurological Exam: Alert, Awake, Oriented x3 - Psychiatric Exam Psychiatric exam: Normal Affect, Normal Mood - Skin Skin Exam: Dry, Normal Color, Warm Assessment and Plan - Assessment and Plan (Free Text) Assessment: 1) Fracture of tibia, proximal, right, closed; pain management and physical therapy Continue physical therapy; goal is for use of cane per ortho. Cane present bedside - knee immobilizer at bedside, can be d/c to halfway when tolerating cane Patient can ambulate with support with a walker; however patient needs to be able to walk with a cane. Patient is progressively weight bearing. No ortho intervention needed at this time. Ortho monitoring. Tylenol 650 mg PO Q6 PRN mild pain Tramadol 25mg TID PRN. It was re-iterated that patient ask for pain when necessary. Daily physical therapy to maximize ambulation with cane unassisted. 08/21 studies noted below: Lower Extremity CT: osteopenia and degenerative change, no acute fracture or joint effusion Knee XRAY: initial questionable fracture ruled out by CT imaging. Pelvis XRAY stable acetabular protrusion. Refer to complete reports 2) Gait Instability; will continue with PT/OT xrays right knee show resolved area of sclerosis at presumed stress fracture right lateral tibial plateau (MRI contraindicated due to metallic implant in patella) PT notified Will need continued PT until patient is stable with cane Quad cane to be provided 3) BPH Flomax 0.8 mg PO daily 4) Anemia- resolved Hgb stable. Cont to monitor. weekly labs 5) Aneurysmal dilatation of ascending thoracic aorta; Currently 4.[address] imaging every [address] scan in 03/2016, should be monitored next month September 2016 6) Sacral decubitus- resolved Out of bed into chair daily Recommendations for silvadene creme to affected buttocks area 7) History of Urinary Tract Infection Continue to monitor Most recent 06/22 Currently asymptomatic UA negative 8) Seborrheic Dermatitis Continue Ketoconazole 2% to affected areas of face BID and Ketoconazole 2% Shampoo to hair twice weekly Cont to monitor progression 9) Constipation Dulcolax prn 10) Prophylactic Measure Labs weekly on Sunday Lovenox 40mg SC daily Pepcid 20mg PO BID Patient is homeless. Used to stay with friend, but no longer welcome there. Goal is to walk with cane so he can go to a halfway (will not qualify with a walker) Pt pending transfer, awaiting placement PT: home w services and knee brace; currently working with physical therapy with single point cane Patient is encouraged to leave bed curtains open to prevent being closed off from surroundings. Discussed with nursing team as well.
[2016-08-27] MEDS: Lidocaine 5% Patch TD SCH (09:43)
[2016-08-27] MEDS: Enoxaparin 40 mg Syringe SC SCH (09:43)
[2016-08-27] MEDS: Simethicone 80 mg Chewtab PO PRN (09:44)
[2016-08-28 07:55] LABS: BASO % 0.4 % (0.0-2.0); EOS # 0.1 K/uL (0.0-0.7); EOS % 2.7 % (0.0-4.0); HEMOGLOBIN 13.4 g/dL (12.0-18.0); LYMPH # 2.3 K/uL (1.0-4.3); MEAN CELL VOLUME 93.8 fL (80.0-94.0); MEAN CORPUSCULAR HEMOGLOBIN 31.5 pg (27.0-31.0); MEAN CORPUSCULAR HGB CONC 33.6 g/dL (33.0-37.0); MEAN PLATELET VOLUME 8.9 fL (7.2-11.7); MONO # 0.4 K/uL (0.0-0.8); MONO % 9.3 % (0.0-10.0); NEUT # 1.7 K/uL (1.8-7.0); NEUT % 37.6 % (50.0-75.0); NRBC % 0.3 % (0.0-2.0); RBC 4.26 Mil/uL (4.40-5.90); RED CELL DISTRIBUTION WIDTH 14.2 % (11.5-14.5); WHITE BLOOD COUNT 4.5 K/uL (4.8-10.8)
[2016-08-28 08:36] LABS: GFR AFRICAN-AMERICAN > 60; GFR NON-AFRICAN AMERICAN > 60
[2016-08-28 08:37] LABS: ALB/GLOB RATIO 1.1 (1.0-2.1); ALT/SGPT 7 U/L (21-72); AST/SGOT 21 U/L (17-59); BLOOD UREA NITROGEN 11 mg/dL (9-20); CALCIUM 8.9 mg/dl (8.6-10.4)
[2016-08-28 08:38] LABS: MAGNESIUM 1.8 mg/dL (1.6-2.3)
[2016-08-28] MEDS: Enoxaparin 40 mg Syringe SC SCH (09:37)
[2016-08-28] MEDS: Lidocaine 5% Patch TD SCH (09:37)
--- NOTE | 2016-08-28 14:47 | CP.PCM.PN ---
<Laurence Ham - Last Filed: 08/28/16 19:07> Subjective - Date & Time of Evaluation Date of Evaluation: 08/28/16 Time of Evaluation: 07:30 - Subjective Subjective: PGY 1 Medicine Note- Dr. Wiggins's service: Patient seen and examined and in no acute distress. Patient complains of some right leg and knee pain. Patient refused Flomax stating that he has to urinate too often with it but agreed to taking half of his dose tomorrow. He denies subjective fevers or chills, chest pain,nausea,vomiting, or diarrhea at this time. Patient's last BM was yesterday. Objective - Vital Signs/Intake and Output Vital Signs (last 24 hours): Temp Pulse Resp BP Pulse Ox 97.6 F 65 20 112/72 97 08/28/16 07:36 08/28/16 07:36 08/28/16 07:36 08/28/16 07:36 08/28/16 07:36 Intake and Output: 08/28/16 08/28/16 06:59 18:59 Intake Total 200 Balance 200 - Medications Medications: Current Medications Acetaminophen (Tylenol 325mg Tab) 650 mg PO Q6 PRN PRN Reason: Pain, Mild (1-3) Last Admin: 08/24/16 23:02 Dose: 650 mg Bisacodyl (Dulcolax) 5 mg PO Q12 PRN PRN Reason: Constipation Last Admin: 08/18/16 14:47 Dose: 5 mg Enoxaparin Sodium (Lovenox) 40 mg SC DAILY [facility] Last Admin: 08/28/16 09:37 Dose: 40 mg Famotidine (Pepcid) 20 mg PO BID [facility] Last Admin: 08/28/16 09:37 Dose: 20 mg Lidocaine (Lidoderm) 1 ea TD DAILY [facility] Last Admin: 08/28/16 09:37 Dose: 1 ea Polyethylene Glycol (Miralax) 17 gm PO DAILY [facility] Last Admin: 08/21/16 09:12 Dose: Not Given Simethicone (Mylicon Chew Tab) 80 mg PO QID PRN PRN Reason: GI distress Last Admin: 08/27/16 09:44 Dose: 80 mg Tamsulosin HCl (Flomax) 0.8 mg PO DAILY [facility] Last Admin: 08/28/16 09:46 Dose: Not Given Tramadol HCl (Ultram) 50 mg PO TID PRN PRN Reason: Pain, moderate (4-7) Last Admin: 08/28/16 02:13 Dose: 50 mg - Labs Labs: 08/28/16 07:24 08/28/16 07:24 - Constitutional Appears: No Acute Distress - Head Exam Head Exam: ATRAUMATIC, NORMAL INSPECTION, NORMOCEPHALIC - Eye Exam Eye Exam: EOMI, Normal appearance, PERRL - ENT Exam ENT Exam: Mucous Membranes Moist, Normal Exam - Neck Exam Neck Exam: Full ROM, Normal Inspection. absent: Lymphadenopathy - Respiratory Exam Respiratory Exam: Clear to Ausculation Bilateral, NORMAL BREATHING PATTERN - Cardiovascular Exam Cardiovascular Exam: REGULAR RHYTHM, +S1, +S2. absent: Murmur - GI/Abdominal Exam GI & Abdominal Exam: Distended, Firm, Normal Bowel Sounds. absent: Tenderness - Extremities Exam Extremities Exam: absent: Normal Inspection (right knee wrapped in LINDSEY bandage) - Neurological Exam Neurological Exam: Alert, Awake - Psychiatric Exam Psychiatric exam: Normal Affect - Skin Skin Exam: Dry, Intact, Normal Color, Warm Assessment and Plan (1) Fracture of tibia, proximal, right, closed Assessment & Plan: Continue physical therapy; goal is for use of cane per ortho. can be d/c to longterm when tolerating cane Patient can ambulate with support with a walker Patient is progressively weight bearing. No ortho intervention needed at this time. Ortho monitoring. Tylenol 650 mg PO Q6 PRN mild pain, Ultram 50 mg PO TID PRN for moderate pain Daily physical therapy to maximize ambulation with cane unassisted. 08/21 studies noted below: Lower Extremity CT: osteopenia and degenerative change, no acute fracture or joint effusion Knee XRAY: initial questionable fracture ruled out by CT imaging. Pelvis XRAY stable acetabular protrusion. Refer to complete reports Status: Chronic (2) Gait instability Assessment & Plan: xrays right knee show resolved area of sclerosis at presumed stress fracture right lateral tibial plateau (MRI contraindicated due to metallic implant in patella) Will need continued PT until patient is stable with cane Status: Acute (3) BPH (benign prostatic hyperplasia) Assessment & Plan: Flomax 0.8 mg PO daily refused dose today, but agreed to take half of dose tomorrow Status: Acute (4) Anemia Assessment & Plan: Hgb stable. Cont to monitor. Weekly labs Status: Resolved (5) Aneurysmal dilatation Assessment & Plan: Aneurysmal dilatation of ascending thoracic aorta; Currently 4.[address] imaging every [address] scan in 03/2016, should be monitored next month September 2016 Status: Acute (6) Sacral decubitus ulcer Assessment & Plan: Out of bed into chair daily and continue to encourage ambulation Continue working with physical therapy Status: Resolved (7) History of UTI Status: Acute (8) History of recurrent UTIs Assessment & Plan: Continue to monitor Most recent 06/22 Currently asymptomatic UA negative Status: Resolved (9) Seborrheic dermatitis Assessment & Plan: Monitor fore recurrence. Status: Resolved (10) Constipation Assessment & Plan: Dulcolax prn Status: Acute (11) Prophylactic measure Assessment & Plan: Labs weekly on Sunday Lovenox 40mg SC daily Pepcid 20mg PO BID Patient is homeless. Goal is to walk with cane so he can go to a longterm (will not qualify with a walker) Pt pending transfer, awaiting placement PT: home w services and knee brace; currently working with physical therapy with single point cane Patient is encouraged to leave bed curtains open to prevent being closed off from surroundings. Discussed with nursing team as well. Status: Acute <RosalieJose M - Last Filed: 08/29/16 07:46> Objective - Vital Signs/Intake and Output Vital Signs (last 24 hours): Temp Pulse Resp BP Pulse Ox 98.2 F 74 20 113/70 98 08/29/16 00:00 08/29/16 00:00 08/29/16 00:00 08/29/16 00:00 08/29/16 00:00 Intake and Output: 08/29/16 08/29/16 06:59 18:59 Intake Total 590 Output Total 750 Balance -160 - Medications Medications: Current Medications Acetaminophen (Tylenol 325mg Tab) 650 mg PO Q6 PRN PRN Reason: Pain, Mild (1-3) Last Admin: 08/24/16 23:02 Dose: 650 mg Bisacodyl (Dulcolax) 5 mg PO Q12 PRN PRN Reason: Constipation Last Admin: 08/18/16 14:47 Dose: 5 mg Enoxaparin Sodium (Lovenox) 40 mg SC DAILY [facility] Last Admin: 08/28/16 09:37 Dose: 40 mg Famotidine (Pepcid) 20 mg PO BID [facility] Last Admin: 08/28/16 17:57 Dose: 20 mg Lidocaine (Lidoderm) 1 ea TD DAILY [facility] Last Admin: 08/28/16 09:37 Dose: 1 ea Polyethylene Glycol (Miralax) 17 gm PO DAILY [facility] Last Admin: 08/21/16 09:12 Dose: Not Given Simethicone (Mylicon Chew Tab) 80 mg PO QID PRN PRN Reason: GI distress Last Admin: 08/27/16 09:44 Dose: 80 mg Tamsulosin HCl (Flomax) 0.8 mg PO DAILY [facility] Last Admin: 08/28/16 09:46 Dose: Not Given Tramadol HCl (Ultram) 50 mg PO TID PRN PRN Reason: Pain, moderate (4-7) Last Admin: 08/29/16 06:20 Dose: 50 mg - Labs Labs: 08/28/16 07:24 08/28/16 07:24 Attending/Attestation - Attestation I have personally seen and examined this patient.: Yes I have fully participated in the care of the patient.: Yes I have reviewed all pertinent clinical information, including history, physical exam and plan: Yes Notes (Text): 08/29/16 07:45 Patient was seen and examined at bedside with the resident Patient has no new complaints. Patient refused to take Flomax today. He was counseled on the importance of taking his medication regularly. We will continue physical therapy daily. Encourage ambulation with a cane. Continue pain management as needed. Continue bowel regimen because of periodic constipation . Discharge planning with the patient is physically stronger. I discussed the plan of care with the resident and agree with the history and physical and assessment/plan by the resident
[2016-08-29] MEDS: Lidocaine 5% Patch TD SCH (09:26)
[2016-08-29] MEDS: Enoxaparin 40 mg Syringe SC SCH (09:26)
--- NOTE | 2016-08-29 09:37 | CP.PCM.PN ---
<Laurence Ham - Last Filed: 08/29/16 19:26> Subjective - Date & Time of Evaluation Date of Evaluation: 08/29/16 Time of Evaluation: 07:05 - Subjective Subjective: Patient seen and examined and in no acute distress. Patient complains of some right leg and knee pain and asked for PRN Tramadol 50 mg at 6:30 am. He denies subjective fevers or chills, chest pain,nausea,vomiting, or diarrhea at this time. Patient had BM today. Objective - Vital Signs/Intake and Output Vital Signs (last 24 hours): Temp Pulse Resp BP Pulse Ox 98.2 F 74 20 113/70 98 08/29/16 00:00 08/29/16 00:00 08/29/16 00:00 08/29/16 00:00 08/29/16 00:00 Intake and Output: 08/29/16 08/29/16 06:59 18:59 Intake Total 590 Output Total 750 Balance -160 - Medications Medications: Current Medications Acetaminophen (Tylenol 325mg Tab) 650 mg PO Q6 PRN PRN Reason: Pain, Mild (1-3) Last Admin: 08/24/16 23:02 Dose: 650 mg Bisacodyl (Dulcolax) 5 mg PO Q12 PRN PRN Reason: Constipation Last Admin: 08/18/16 14:47 Dose: 5 mg Enoxaparin Sodium (Lovenox) 40 mg SC DAILY [facility] Last Admin: 08/29/16 09:26 Dose: 40 mg Famotidine (Pepcid) 20 mg PO BID [facility] Last Admin: 08/29/16 09:26 Dose: 20 mg Lidocaine (Lidoderm) 1 ea TD DAILY [facility] Last Admin: 08/29/16 09:26 Dose: 1 ea Polyethylene Glycol (Miralax) 17 gm PO DAILY [facility] Last Admin: 08/21/16 09:12 Dose: Not Given Simethicone (Mylicon Chew Tab) 80 mg PO QID PRN PRN Reason: GI distress Last Admin: 08/27/16 09:44 Dose: 80 mg Tamsulosin HCl (Flomax) 0.8 mg PO DAILY [facility] Last Admin: 08/29/16 09:26 Dose: 0.8 mg Tramadol HCl (Ultram) 50 mg PO TID PRN PRN Reason: Pain, moderate (4-7) Last Admin: 08/29/16 06:20 Dose: 50 mg - Labs Labs: 08/28/16 07:24 08/28/16 07:24 - Constitutional Appears: Well, Non-toxic, No Acute Distress - Head Exam Head Exam: ATRAUMATIC, NORMAL INSPECTION, NORMOCEPHALIC - Eye Exam Eye Exam: EOMI, Normal appearance, PERRL - ENT Exam ENT Exam: Mucous Membranes Moist, Normal Exam - Neck Exam Neck Exam: Full ROM, Normal Inspection. absent: Lymphadenopathy - Respiratory Exam Respiratory Exam: Clear to Ausculation Bilateral, NORMAL BREATHING PATTERN. absent: Rales, Rhonchi, Wheezes - Cardiovascular Exam Cardiovascular Exam: REGULAR RHYTHM, +S1, +S2. absent: Gallop, Rubs, Murmur - GI/Abdominal Exam GI & Abdominal Exam: Distended, Firm, Normal Bowel Sounds. absent: Guarding, Tenderness - Extremities Exam Extremities Exam: Full ROM, Normal Capillary Refill, Normal Inspection. absent : Joint Swelling, Pedal Edema - Back Exam Back Exam: NORMAL INSPECTION. absent: rash noted, tenderness - Neurological Exam Neurological Exam: Alert, Awake, Oriented x3 - Psychiatric Exam Psychiatric exam: Normal Affect - Skin Skin Exam: Normal Color Assessment and Plan (1) Fracture of tibia, proximal, right, closed Assessment & Plan: Continue physical therapy; goal is for use of cane per ortho. can be d/c to correction when tolerating cane Patient can ambulate with support with a walker Patient is progressively weight bearing. No ortho intervention needed at this time. Ortho monitoring. Tylenol 650 mg PO Q6 PRN mild pain, Ultram 50 mg PO TID PRN for moderate pain Daily physical therapy to maximize ambulation with cane unassisted. 08/21 studies noted below: Lower Extremity CT: osteopenia and degenerative change, no acute fracture or joint effusion Knee XRAY: initial questionable fracture ruled out by CT imaging. Pelvis XRAY stable acetabular protrusion. Refer to complete reports Status: Chronic (2) Gait instability Assessment & Plan: xrays right knee show resolved area of sclerosis at presumed stress fracture right lateral tibial plateau (MRI contraindicated due to metallic implant in patella) Will need continued PT until patient is stable with cane Status: Acute (3) BPH (benign prostatic hyperplasia) Assessment & Plan: Flomax 0.8 mg PO daily Status: Acute (4) Anemia Assessment & Plan: Hgb stable. Cont to monitor. Weekly labs Status: Resolved (5) Aneurysmal dilatation Assessment & Plan: Aneurysmal dilatation of ascending thoracic aorta; Currently 4.[address] imaging every [address] scan in 03/2016, should be monitored next month September 2016 Status: Acute (6) Sacral decubitus ulcer Assessment & Plan: Out of bed into chair daily and continue to encourage ambulation Continue working with physical therapy Status: Resolved (7) History of recurrent UTIs Assessment & Plan: Continue to monitor Most recent 06/22 Currently asymptomatic UA negative Status: Resolved (8) Seborrheic dermatitis Assessment & Plan: Monitor for recurrence. Status: Resolved (9) Constipation Assessment & Plan: Dulcolax prn Status: Acute (10) Prophylactic measure Assessment & Plan: Labs weekly on Sunday Lovenox 40mg SC daily Pepcid 20mg PO BID Patient is homeless. Goal is to walk with cane so he can go to a correction (will not qualify with a walker) Pt pending transfer, awaiting placement PT: home w services and knee brace; currently working with physical therapy with single point cane Patient is encouraged to leave bed curtains open to prevent being closed off from surroundings. Discussed with nursing team as well. Status: Acute <Jose Wiggins - Last Filed: 08/30/16 17:33> Objective - Vital Signs/Intake and Output Vital Signs (last 24 hours): Temp Pulse Resp BP Pulse Ox 97.9 F 80 20 104/68 96 08/30/16 16:00 08/30/16 16:00 08/30/16 16:00 08/30/16 16:00 08/30/16 16:00 Intake and Output: 08/30/16 08/30/16 06:59 18:59 Intake Total 590 450 Balance 590 450 - Medications Medications: Current Medications Acetaminophen (Tylenol 325mg Tab) 650 mg PO Q6 PRN PRN Reason: Pain, Mild (1-3) Last Admin: 08/24/16 23:02 Dose: 650 mg Bisacodyl (Dulcolax) 5 mg PO Q12 PRN PRN Reason: Constipation Last Admin: 08/18/16 14:47 Dose: 5 mg Enoxaparin Sodium (Lovenox) 40 mg SC DAILY [facility] Last Admin: 08/30/16 10:26 Dose: 40 mg Famotidine (Pepcid) 20 mg PO BID [facility] Last Admin: 08/30/16 10:25 Dose: 20 mg Lidocaine (Lidoderm) 1 ea TD DAILY [facility] Last Admin: 08/30/16 10:25 Dose: 1 ea Polyethylene Glycol (Miralax) 17 gm PO DAILY [facility] Last Admin: 08/21/16 09:12 Dose: Not Given Simethicone (Mylicon Chew Tab) 80 mg PO QID PRN PRN Reason: GI distress Last Admin: 08/27/16 09:44 Dose: 80 mg Tamsulosin HCl (Flomax) 0.8 mg PO DAILY [facility] Last Admin: 08/30/16 10:25 Dose: 0.8 mg Tramadol HCl (Ultram) 50 mg PO TID PRN PRN Reason: Pain, moderate (4-7) Last Admin: 08/30/16 10:26 Dose: 50 mg - Labs Labs: 08/28/16 07:24 08/28/16 07:24 Attending/Attestation - Attestation I have personally seen and examined this patient.: Yes I have fully participated in the care of the patient.: Yes I have reviewed all pertinent clinical information, including history, physical exam and plan: Yes Notes (Text): 08/30/16 17:33 Patient was seen and examined at bedside with the resident Continue current medical management Continue physical therapy daily I agree with the assessment and plan by the resident.
--- NOTE | 2016-08-30 08:37 | CP.PCM.PN ---
Subjective - Date & Time of Evaluation Date of Evaluation: 08/30/16 Time of Evaluation: 08:26 - Subjective Subjective: Patient complains of pain and warmth in front of knee today. Hip pain is the same. Review of Systems - Review of Systems All systems: reviewed and no additional remarkable complaints except - Musculoskeletal Musculoskeletal: As Par HPI Objective - Vital Signs/Intake and Output Vital Signs (last 24 hours): Temp Pulse Resp BP Pulse Ox 97.6 F 72 20 129/79 98 08/30/16 07:18 08/30/16 07:18 08/30/16 07:18 08/30/16 07:18 08/30/16 07:18 Intake and Output: 08/30/16 08/30/16 06:59 18:59 Intake Total 590 Balance 590 - Medications Medications: Current Medications Acetaminophen (Tylenol 325mg Tab) 650 mg PO Q6 PRN PRN Reason: Pain, Mild (1-3) Last Admin: 08/24/16 23:02 Dose: 650 mg Bisacodyl (Dulcolax) 5 mg PO Q12 PRN PRN Reason: Constipation Last Admin: 08/18/16 14:47 Dose: 5 mg Enoxaparin Sodium (Lovenox) 40 mg SC DAILY [facility] Last Admin: 08/29/16 09:26 Dose: 40 mg Famotidine (Pepcid) 20 mg PO BID [facility] Last Admin: 08/29/16 18:20 Dose: 20 mg Lidocaine (Lidoderm) 1 ea TD DAILY [facility] Last Admin: 08/29/16 09:26 Dose: 1 ea Polyethylene Glycol (Miralax) 17 gm PO DAILY [facility] Last Admin: 08/21/16 09:12 Dose: Not Given Simethicone (Mylicon Chew Tab) 80 mg PO QID PRN PRN Reason: GI distress Last Admin: 08/27/16 09:44 Dose: 80 mg Tamsulosin HCl (Flomax) 0.8 mg PO DAILY [facility] Last Admin: 08/29/16 09:26 Dose: 0.8 mg Tramadol HCl (Ultram) 50 mg PO TID PRN PRN Reason: Pain, moderate (4-7) Last Admin: 08/29/16 21:57 Dose: 50 mg - Labs Labs: 08/28/16 07:24 08/28/16 07:24 - Cardiovascular Exam Additional comments: calves soft NT neg homans - Extremities Exam Additional comments: RLE: no erythema, no effusion. No swelling. Patient points to anterior medial knee. No TTP to tibia, mild TTP to medial femoral condyle near trochlea and medial border of patella. No laxity or pain to varus/valgus stress/lach/ant/ post drawer. No TTP patellar or quad tendons - Neurological Exam Neurological Exam: Alert, Awake, Oriented x3 - Psychiatric Exam Psychiatric exam: Normal Affect, Normal Mood - Skin Skin Exam: Dry, Intact, Normal Color, Warm Assessment and Plan (1) Acetabular protrusion Assessment & Plan: stable no intervention cont PT Status: Chronic (2) Fracture of tibia, proximal, right, closed Assessment & Plan: healed ? 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 Pino, agrees with above Status: Chronic
[2016-08-30] MEDS: Lidocaine 5% Patch TD SCH (10:25)
[2016-08-30] MEDS: Enoxaparin 40 mg Syringe SC SCH (10:26)
--- NOTE | 2016-08-30 14:19 | CP.PCM.PN ---
<Laurence Ham - Last Filed: 08/30/16 18:57> Subjective - Date & Time of Evaluation Date of Evaluation: 08/30/16 Time of Evaluation: 07:30 - Subjective Subjective: PGY 1 Medicine Note- Dr. Wiggins's Service Patient seen and examined and in no acute distress. Patient complains of some difficulty having a bowel movement and says he only had a small thin stool yesterday and none today. Patient denies subjective fevers or chills, chest pain ,nausea,vomiting, or diarrhea at this time. Objective - Vital Signs/Intake and Output Vital Signs (last 24 hours): Temp Pulse Resp BP Pulse Ox 97.6 F 72 20 129/79 98 08/30/16 07:18 08/30/16 07:18 08/30/16 07:18 08/30/16 07:18 08/30/16 07:18 Intake and Output: 08/30/16 08/30/16 06:59 18:59 Intake Total 590 Balance 590 - Medications Medications: Current Medications Acetaminophen (Tylenol 325mg Tab) 650 mg PO Q6 PRN PRN Reason: Pain, Mild (1-3) Last Admin: 08/24/16 23:02 Dose: 650 mg Bisacodyl (Dulcolax) 5 mg PO Q12 PRN PRN Reason: Constipation Last Admin: 08/18/16 14:47 Dose: 5 mg Enoxaparin Sodium (Lovenox) 40 mg SC DAILY [facility] Last Admin: 08/30/16 10:26 Dose: 40 mg Famotidine (Pepcid) 20 mg PO BID [facility] Last Admin: 08/30/16 10:25 Dose: 20 mg Lidocaine (Lidoderm) 1 ea TD DAILY [facility] Last Admin: 08/30/16 10:25 Dose: 1 ea Polyethylene Glycol (Miralax) 17 gm PO DAILY [facility] Last Admin: 08/21/16 09:12 Dose: Not Given Simethicone (Mylicon Chew Tab) 80 mg PO QID PRN PRN Reason: GI distress Last Admin: 08/27/16 09:44 Dose: 80 mg Tamsulosin HCl (Flomax) 0.8 mg PO DAILY [facility] Last Admin: 08/30/16 10:25 Dose: 0.8 mg Tramadol HCl (Ultram) 50 mg PO TID PRN PRN Reason: Pain, moderate (4-7) Last Admin: 08/30/16 10:26 Dose: 50 mg - Labs Labs: 08/28/16 07:24 08/28/16 07:24 - Constitutional Appears: Well, Non-toxic, No Acute Distress - Head Exam Head Exam: ATRAUMATIC, NORMAL INSPECTION, NORMOCEPHALIC - Eye Exam Eye Exam: EOMI, Normal appearance, PERRL - ENT Exam ENT Exam: Mucous Membranes Moist, Normal Exam - Neck Exam Neck Exam: Full ROM, Normal Inspection. absent: Lymphadenopathy - Respiratory Exam Respiratory Exam: Clear to Ausculation Bilateral, NORMAL BREATHING PATTERN. absent: Rales, Rhonchi, Wheezes, Stridor - Cardiovascular Exam Cardiovascular Exam: REGULAR RHYTHM, RRR, +S1, +S2. absent: Gallop, Rubs, Murmur - GI/Abdominal Exam GI & Abdominal Exam: Distended, Soft, Normal Bowel Sounds. absent: Firm, Tenderness - Exam Additional comments: bilateral inguinal hernias that are reducible - Extremities Exam Additional comments: right knee wrapped in demond bandage - Back Exam Back Exam: NORMAL INSPECTION - Neurological Exam Neurological Exam: Alert, Awake, Oriented x3 - Psychiatric Exam Psychiatric exam: Normal Affect, Normal Mood - Skin Skin Exam: Normal Color Assessment and Plan (1) Fracture of tibia, proximal, right, closed Assessment & Plan: Continue physical therapy; goal is for use of cane per ortho. [place] be [place]c [place] [facility] when tolerating cane Patient can ambulate with support with a walker Patient is progressively weight bearing. No ortho intervention needed at this time. Ortho monitoring. Ortho saw patient 08/30 and recommended to continue PT/ OT. Tylenol 650 mg PO Q6 PRN mild pain, Ultram 50 mg PO TID PRN for moderate pain Daily physical therapy to maximize ambulation with cane unassisted. 08/21 studies noted below: Lower Extremity CT: osteopenia and degenerative change, no acute fracture or joint effusion Knee XRAY: initial questionable fracture ruled out by CT imaging. Pelvis XRAY stable acetabular protrusion. Refer to complete reports Status: Chronic (2) Gait instability Assessment & Plan: xrays right knee show resolved area of sclerosis at presumed stress fracture right lateral tibial plateau (MRI contraindicated due to metallic implant in patella) Will need continued PT until patient is stable with cane Status: Acute (3) Constipation Assessment & Plan: Dulcolax PRN and one stat order of 10 mg. Status: Acute (4) BPH (benign prostatic hyperplasia) Assessment & Plan: Flomax 0.8 mg PO daily Status: Acute (5) Aneurysmal dilatation Assessment & Plan: Aneurysmal dilatation of ascending thoracic aorta; Currently 4.[address] imaging every [address] scan in 03/2016, should be monitored next month September 2016 Status: Acute (6) Sacral decubitus ulcer Assessment & Plan: Out of bed into chair daily and continue to encourage ambulation Continue working with physical therapy Status: Resolved (7) Anemia Assessment & Plan: Hgb stable. Cont to monitor. Weekly labs Status: Resolved (8) History of recurrent UTIs Assessment & Plan: Continue to monitor Most recent 06/22 Currently asymptomatic UA negative Status: Resolved (9) Seborrheic dermatitis Assessment & Plan: Monitor for recurrence. Status: Resolved (10) Prophylactic measure Assessment & Plan: Labs weekly on Sunday Lovenox 40mg SC daily Pepcid 20mg PO BID Patient is homeless. Goal is to walk with cane so he can go to a [place] [facility] (will not qualify with a walker) Pt pending transfer, awaiting placement PT: home w services and knee brace; currently working with physical therapy with single point cane Patient is encouraged to leave bed curtains open to prevent being closed off from surroundings. Discussed with nursing team as well. Status: Acute <RosalieSangeetan M - Last Filed: 08/31/16 15:46> Objective - Vital Signs/Intake and Output Vital Signs (last 24 hours): Temp Pulse Resp BP Pulse Ox 98.4 F 75 20 117/71 96 08/31/16 08:00 08/31/16 08:00 08/31/16 08:00 08/31/16 08:00 08/31/16 08:00 Intake and Output: 08/31/16 08/31/16 06:59 18:59 Intake Total 760 420 Output Total 550 Balance 210 420 - Medications Medications: Current Medications Acetaminophen (Tylenol 325mg Tab) 650 mg PO Q6 PRN PRN Reason: Pain, Mild (1-3) Last Admin: 08/24/16 23:02 Dose: 650 mg Bisacodyl (Dulcolax) 5 mg PO Q12 PRN PRN Reason: Constipation Last Admin: 08/18/16 14:47 Dose: 5 mg Enoxaparin Sodium (Lovenox) 40 mg SC DAILY [facility] Last Admin: 08/31/16 09:15 Dose: 40 mg Famotidine (Pepcid) 20 mg PO BID [facility] Last Admin: 08/31/16 09:12 Dose: 20 mg Lidocaine (Lidoderm) 1 ea TD DAILY [facility] Last Admin: 08/31/16 09:11 Dose: 1 ea Polyethylene Glycol (Miralax) 17 gm PO DAILY [facility] Last Admin: 08/21/16 09:12 Dose: Not Given Simethicone (Mylicon Chew Tab) 80 mg PO QID PRN PRN Reason: GI distress Last Admin: 08/27/16 09:44 Dose: 80 mg Tamsulosin HCl (Flomax) 0.8 mg PO DAILY [facility] Last Admin: 08/31/16 09:12 Dose: 0.8 mg Tramadol HCl (Ultram) 50 mg PO TID PRN PRN Reason: Pain, moderate (4-7) Last Admin: 08/31/16 06:05 Dose: 50 mg - Labs Labs: 08/28/16 07:24 08/28/16 07:24 Attending/Attestation - Attestation I have personally seen and examined this patient.: Yes I have fully participated in the care of the patient.: Yes I have reviewed all pertinent clinical information, including history, physical exam and plan: Yes Notes (Text): 08/31/16 15:46 Patient seen and examined at bedside with the resident Patient continues to complain of pain in the right lower extremity We will continue current management Continue physical therapy daily I agree with the assessment and plan by the resident.
[2016-08-31] MEDS: Lidocaine 5% Patch TD SCH (09:11)
[2016-08-31] MEDS: Enoxaparin 40 mg Syringe SC SCH (09:15)
[2016-08-31] MEDS: Simethicone 80 mg Chewtab PO PRN (18:06)
--- NOTE | 2016-08-31 19:48 | CP.PCM.PN ---
<Laurence Ham - Last Filed: 08/31/16 19:45> Subjective - Date & Time of Evaluation Date of Evaluation: 08/31/16 Time of Evaluation: 07:00 - Subjective Subjective: Patient seen and examined and in no acute distress. Patient complains of some difficulty having a bowel movement and says he has no BM today. Patient denies subjective fevers or chills, chest pain,nausea,vomiting, or diarrhea at this time. Patient says his knee is not hurting him. Objective - Vital Signs/Intake and Output Vital Signs (last 24 hours): Temp Pulse Resp BP Pulse Ox 97.5 F L 83 20 108/65 98 08/31/16 15:15 08/31/16 15:15 08/31/16 15:15 08/31/16 15:15 08/31/16 15:15 Intake and Output: 08/31/16 09/01/16 18:59 06:59 Intake Total 420 Balance 420 - Medications Medications: Current Medications Acetaminophen (Tylenol 325mg Tab) 650 mg PO Q6 PRN PRN Reason: Pain, Mild (1-3) Last Admin: 08/24/16 23:02 Dose: 650 mg Bisacodyl (Dulcolax) 5 mg PO Q12 PRN PRN Reason: Constipation Last Admin: 08/18/16 14:47 Dose: 5 mg Bisacodyl (Dulcolax) 10 mg MT ONCE ONE Stop: 08/31/16 19:45 Enoxaparin Sodium (Lovenox) 40 mg SC DAILY [facility] Last Admin: 08/31/16 09:15 Dose: 40 mg Famotidine (Pepcid) 20 mg PO BID [facility] Last Admin: 08/31/16 18:06 Dose: 20 mg Lidocaine (Lidoderm) 1 ea TD DAILY [facility] Last Admin: 08/31/16 09:11 Dose: 1 ea Polyethylene Glycol (Miralax) 17 gm PO DAILY [facility] Last Admin: 08/21/16 09:12 Dose: Not Given Simethicone (Mylicon Chew Tab) 80 mg PO QID PRN PRN Reason: GI distress Last Admin: 08/31/16 18:06 Dose: 80 mg Tamsulosin HCl (Flomax) 0.8 mg PO DAILY [facility] Last Admin: 08/31/16 09:12 Dose: 0.8 mg Tramadol HCl (Ultram) 50 mg PO TID PRN PRN Reason: Pain, moderate (4-7) Last Admin: 08/31/16 18:06 Dose: 50 mg - Labs Labs: 08/28/16 07:24 08/28/16 07:24 - Constitutional Appears: Well, Non-toxic, No Acute Distress - Head Exam Head Exam: ATRAUMATIC, NORMAL INSPECTION, NORMOCEPHALIC - Eye Exam Eye Exam: EOMI, Normal appearance, PERRL - Neck Exam Neck Exam: Full ROM, Normal Inspection. absent: Lymphadenopathy - Respiratory Exam Respiratory Exam: Clear to Ausculation Bilateral, NORMAL BREATHING PATTERN. absent: Rales, Rhonchi, Wheezes, Stridor - Cardiovascular Exam Cardiovascular Exam: REGULAR RHYTHM, RRR, +S1, +S2. absent: Gallop, Rubs, Murmur - Extremities Exam Extremities Exam: Full ROM, Normal Inspection. absent: Joint Swelling, Pedal Edema - Back Exam Back Exam: NORMAL INSPECTION. absent: rash noted - Neurological Exam Neurological Exam: Alert, Awake, Oriented x3 - Psychiatric Exam Psychiatric exam: Normal Affect, Normal Mood - Skin Skin Exam: Normal Color, Warm Assessment and Plan (1) Fracture of tibia, proximal, right, closed Assessment & Plan: Continue physical therapy; goal is for use of cane per ortho. can be d/c to custodial when tolerating cane Patient can ambulate with support with a walker Patient is progressively weight bearing. No ortho intervention needed at this time. Ortho monitoring. Ortho saw patient 08/30 and recommended to continue PT/ OT. Tylenol 650 mg PO Q6 PRN mild pain, Ultram 50 mg PO TID PRN for moderate pain Daily physical therapy to maximize ambulation with cane unassisted. 08/21 studies noted below: Lower Extremity CT: osteopenia and degenerative change, no acute fracture or joint effusion Knee XRAY: initial questionable fracture ruled out by CT imaging. Pelvis XRAY stable acetabular protrusion. Refer to complete reports Status: Chronic (2) Gait instability Assessment & Plan: xrays right knee show resolved area of sclerosis at presumed stress fracture right lateral tibial plateau (MRI contraindicated due to metallic implant in patella) Will need continued PT until patient is stable with cane Status: Acute (3) Constipation Assessment & Plan: Dulcolax one stat order of 10 mg. Miralax 17gm PO daily Status: Acute (4) BPH (benign prostatic hyperplasia) Assessment & Plan: Flomax 0.8 mg PO daily Status: Acute (5) Aneurysmal dilatation Assessment & Plan: Aneurysmal dilatation of ascending thoracic aorta; Currently 4.[address] imaging every [address] scan in 03/2016, should be monitored next month September 2016 Status: Acute (6) Sacral decubitus ulcer Assessment & Plan: Out of bed into chair daily and continue to encourage ambulation Continue working with physical therapy Status: Resolved (7) Anemia Assessment & Plan: Hgb stable. Cont to monitor. Weekly labs Status: Resolved (8) History of recurrent UTIs Assessment & Plan: Continue to monitor Most recent 06/22 Currently asymptomatic UA negative Status: Resolved (9) Seborrheic dermatitis Assessment & Plan: Monitor for recurrence. Status: Resolved (10) Prophylactic measure Assessment & Plan: Labs weekly on Sunday Lovenox 40mg SC daily Pepcid 20mg PO BID Patient is homeless. Goal is to walk with cane so he can go to a custodial (will not qualify with a walker) Pt pending transfer, awaiting placement PT: home w services and knee brace; currently working with physical therapy with single point cane Patient is encouraged to leave bed curtains open to prevent being closed off from surroundings. Discussed with nursing team as well. Status: Acute <RosalieJose M - Last Filed: 09/01/16 09:31> Objective - Vital Signs/Intake and Output Vital Signs (last 24 hours): Temp Pulse Resp BP Pulse Ox 98.5 F 72 20 115/72 97 09/01/16 08:00 09/01/16 08:00 09/01/16 08:00 09/01/16 08:00 09/01/16 08:00 Intake and Output: 09/01/16 09/01/16 06:59 18:59 Intake Total 200 Balance 200 - Medications Medications: Current Medications Acetaminophen (Tylenol 325mg Tab) 650 mg PO Q6 PRN PRN Reason: Pain, Mild (1-3) Last Admin: 08/24/16 23:02 Dose: 650 mg Bisacodyl (Dulcolax) 5 mg PO Q12 PRN PRN Reason: Constipation Last Admin: 08/18/16 14:47 Dose: 5 mg Enoxaparin Sodium (Lovenox) 40 mg SC DAILY [facility] Last Admin: 08/31/16 09:15 Dose: 40 mg Famotidine (Pepcid) 20 mg PO BID [facility] Last Admin: 08/31/16 18:06 Dose: 20 mg Lidocaine (Lidoderm) 1 ea TD DAILY [facility] Last Admin: 08/31/16 09:11 Dose: 1 ea Polyethylene Glycol (Miralax) 17 gm PO DAILY [facility] Last Admin: 08/21/16 09:12 Dose: Not Given Simethicone (Mylicon Chew Tab) 80 mg PO QID PRN PRN Reason: GI distress Last Admin: 08/31/16 18:06 Dose: 80 mg Tamsulosin HCl (Flomax) 0.8 mg PO DAILY [facility] Last Admin: 08/31/16 09:12 Dose: 0.8 mg Tramadol HCl (Ultram) 50 mg PO TID PRN PRN Reason: Pain, moderate (4-7) Last Admin: 08/31/16 18:06 Dose: 50 mg - Labs Labs: 08/28/16 07:24 08/28/16 07:24 Attending/Attestation - Attestation I have personally seen and examined this patient.: Yes I have fully participated in the care of the patient.: Yes I have reviewed all pertinent clinical information, including history, physical exam and plan: Yes Notes (Text): 09/01/16 09:31 Patient was seen and examined at bedside with the resident Patient has no new complaints Complains of right lower extremity pain Continue to encourage ambulation Continue pain management as needed Patient complains of constipation but the patient is on bowel regimen. Monitor for bowel movements I discussed the plan of care with the resident and agree with the history and physical and assessment/plan by the resident
--- NOTE | 2016-09-01 06:20 | CP.PCM.PN ---
<Laurence Ham - Last Filed: 09/01/16 20:43> Subjective - Date & Time of Evaluation Date of Evaluation: 09/01/16 Time of Evaluation: 07:00 - Subjective Subjective: Patient seen and examined and in no acute distress. Patient denies subjective fevers or chills, chest pain,nausea,vomiting, or diarrhea at this time. Patient says his knee still hurts. Objective - Vital Signs/Intake and Output Vital Signs (last 24 hours): Temp Pulse Resp BP Pulse Ox 98.1 F 76 20 118/59 L 98 09/01/16 00:00 09/01/16 00:00 09/01/16 00:00 09/01/16 00:00 09/01/16 00:00 Intake and Output: 08/31/16 09/01/16 18:59 06:59 Intake Total 420 Balance 420 - Medications Medications: Current Medications Acetaminophen (Tylenol 325mg Tab) 650 mg PO Q6 PRN PRN Reason: Pain, Mild (1-3) Last Admin: 08/24/16 23:02 Dose: 650 mg Bisacodyl (Dulcolax) 5 mg PO Q12 PRN PRN Reason: Constipation Last Admin: 08/18/16 14:47 Dose: 5 mg Enoxaparin Sodium (Lovenox) 40 mg SC DAILY [facility] Last Admin: 08/31/16 09:15 Dose: 40 mg Famotidine (Pepcid) 20 mg PO BID [facility] Last Admin: 08/31/16 18:06 Dose: 20 mg Lidocaine (Lidoderm) 1 ea TD DAILY [facility] Last Admin: 08/31/16 09:11 Dose: 1 ea Polyethylene Glycol (Miralax) 17 gm PO DAILY [facility] Last Admin: 08/21/16 09:12 Dose: Not Given Simethicone (Mylicon Chew Tab) 80 mg PO QID PRN PRN Reason: GI distress Last Admin: 08/31/16 18:06 Dose: 80 mg Tamsulosin HCl (Flomax) 0.8 mg PO DAILY [facility] Last Admin: 08/31/16 09:12 Dose: 0.8 mg Tramadol HCl (Ultram) 50 mg PO TID PRN PRN Reason: Pain, moderate (4-7) Last Admin: 08/31/16 18:06 Dose: 50 mg - Labs Labs: 08/28/16 07:24 08/28/16 07:24 - Constitutional Appears: Well, Non-toxic, No Acute Distress - Head Exam Head Exam: ATRAUMATIC, NORMAL INSPECTION, NORMOCEPHALIC - Eye Exam Eye Exam: EOMI, Normal appearance, PERRL - ENT Exam ENT Exam: Mucous Membranes Moist, Normal Exam - Neck Exam Neck Exam: Full ROM, Normal Inspection. absent: Lymphadenopathy - Respiratory Exam Respiratory Exam: Clear to Ausculation Bilateral, NORMAL BREATHING PATTERN. absent: Rales, Rhonchi, Wheezes, Respiratory Distress, Stridor - Cardiovascular Exam Cardiovascular Exam: REGULAR RHYTHM, RRR, +S1, +S2. absent: Gallop, Rubs, Murmur - GI/Abdominal Exam GI & Abdominal Exam: Soft, Normal Bowel Sounds. absent: Distended, Firm, Guarding, Rigid, Tenderness - Extremities Exam Extremities Exam: Full ROM, Normal Capillary Refill, Normal Inspection. absent : Joint Swelling, Pedal Edema - Back Exam Back Exam: NORMAL INSPECTION - Neurological Exam Neurological Exam: Alert, Awake, Oriented x3 - Psychiatric Exam Psychiatric exam: Normal Affect, Normal Mood - Skin Skin Exam: Normal Color, Warm Assessment and Plan (1) Fracture of tibia, proximal, right, closed Assessment & Plan: Continue physical therapy; goal is for use of cane per ortho. can be d/c to residential when tolerating cane Patient can ambulate with support with a walker Patient is progressively weight bearing. No ortho intervention needed at this time. Ortho monitoring. Ortho saw patient 08/30 and recommended to continue PT/ OT. Ortho saw patient 09/01 and gave right knee steroid injection. Patient tolerated it well and felt relief. Tylenol 650 mg PO Q6 PRN mild pain, Ultram 50 mg PO TID PRN for moderate pain Daily physical therapy to maximize ambulation with cane unassisted. 08/21 studies noted below: Lower Extremity CT: osteopenia and degenerative change, no acute fracture or joint effusion Knee XRAY: initial questionable fracture ruled out by CT imaging. Pelvis XRAY stable acetabular protrusion. Refer to complete reports Status: Chronic (2) Gait instability Assessment & Plan: xrays right knee show resolved area of sclerosis at presumed stress fracture right lateral tibial plateau (MRI contraindicated due to metallic implant in patella) Will need continued PT until patient is stable with cane Status: Acute (3) Constipation Assessment & Plan: continue Miralax 17gm PO daily Status: Acute (4) BPH (benign prostatic hyperplasia) Assessment & Plan: Flomax 0.8 mg PO daily Status: Acute (5) Aneurysmal dilatation Assessment & Plan: Aneurysmal dilatation of ascending thoracic aorta; Currently 4.[address] imaging every 6 months Status: Acute (6) Sacral decubitus ulcer Assessment & Plan: Out of bed into chair daily and continue to encourage ambulation Continue working with physical therapy Status: Resolved (7) Anemia Assessment & Plan: Hgb stable. Cont to monitor. Weekly labs Status: Resolved (8) History of recurrent UTIs Assessment & Plan: Continue to monitor Most recent 06/22 Currently asymptomatic UA negative Status: Resolved (9) Seborrheic dermatitis Assessment & Plan: Monitor for recurrence. Status: Resolved (10) Prophylactic measure Assessment & Plan: Labs weekly on Sunday Lovenox 40mg SC daily Pepcid 20mg PO BID Patient is homeless. Goal is to walk with cane so he can go to a residential (will not qualify with a walker) Pt pending transfer, awaiting placement PT: home w services and knee brace; currently working with physical therapy with single point cane Patient is encouraged to leave bed curtains open to prevent being closed off from surroundings. Discussed with nursing team as well. Status: Acute <RosalieJose M - Last Filed: 09/02/16 13:44> Objective - Vital Signs/Intake and Output Vital Signs (last 24 hours): Temp Pulse Resp BP Pulse Ox 97.9 F 88 20 130/75 99 09/02/16 07:33 09/02/16 07:33 09/02/16 07:33 09/02/16 07:33 09/02/16 07:33 Intake and Output: 09/02/16 09/02/16 06:59 18:59 Intake Total 300 Output Total 500 Balance -200 - Medications Medications: Current Medications Acetaminophen (Tylenol 325mg Tab) 650 mg PO Q6 PRN PRN Reason: Pain, Mild (1-3) Last Admin: 08/24/16 23:02 Dose: 650 mg Bisacodyl (Dulcolax) 5 mg PO Q12 PRN PRN Reason: Constipation Last Admin: 08/18/16 14:47 Dose: 5 mg Enoxaparin Sodium (Lovenox) 40 mg SC DAILY [facility] Last Admin: 09/02/16 11:13 Dose: 40 mg Famotidine (Pepcid) 20 mg PO BID [facility] Last Admin: 09/02/16 11:07 Dose: 20 mg Lidocaine (Lidoderm) 1 ea TD DAILY [facility] Last Admin: 09/02/16 11:14 Dose: 1 ea Polyethylene Glycol (Miralax) 17 gm PO DAILY [facility] Last Admin: 08/21/16 09:12 Dose: Not Given Simethicone (Mylicon Chew Tab) 80 mg PO QID PRN PRN Reason: GI distress Last Admin: 08/31/16 18:06 Dose: 80 mg Tamsulosin HCl (Flomax) 0.8 mg PO DAILY [facility] Last Admin: 09/02/16 11:14 Dose: 0.8 mg Tramadol HCl (Ultram) 50 mg PO TID PRN PRN Reason: Pain, moderate (4-7) Last Admin: 08/31/16 18:06 Dose: 50 mg - Labs Labs: 08/28/16 07:24 08/28/16 07:24 Attending/Attestation - Attestation I have personally seen and examined this patient.: Yes I have fully participated in the care of the patient.: Yes I have reviewed all pertinent clinical information, including history, physical exam and plan: Yes Notes (Text): 09/02/16 13:43 Patient was seen and examined at bedside Patient complains of right knee pain Intra-articular injection by orthopedics today I agree with the history and physical and assessment/plan by the resident.
[2016-09-01] MEDS: Enoxaparin 40 mg Syringe SC SCH (09:18)
[2016-09-01] MEDS: Lidocaine 5% Patch TD SCH (09:18)
[2016-09-01] MEDS ORDERED: MethylPREDNISolone Depo 40 mg/ml Inj IAA ONE (10:00)
[2016-09-01] MEDS ORDERED: Bupivacaine HCl 0.5% PF (10 ml) Inj IJ ONE (10:00)
--- NOTE | 2016-09-01 11:27 | CP.PCM.PN ---
Subjective - Date & Time of Evaluation Date of Evaluation: 09/01/16 Time of Evaluation: 11:00 - Subjective Subjective: Patient still complaining of same pain in front of knee. No new complaints. Objective - Vital Signs/Intake and Output Vital Signs (last 24 hours): Temp Pulse Resp BP Pulse Ox 98.5 F 72 20 115/72 97 09/01/16 08:00 09/01/16 08:00 09/01/16 08:00 09/01/16 08:00 09/01/16 08:00 Intake and Output: 09/01/16 09/01/16 06:59 18:59 Intake Total 200 Balance 200 - Medications Medications: Current Medications Acetaminophen (Tylenol 325mg Tab) 650 mg PO Q6 PRN PRN Reason: Pain, Mild (1-3) Last Admin: 08/24/16 23:02 Dose: 650 mg Bisacodyl (Dulcolax) 5 mg PO Q12 PRN PRN Reason: Constipation Last Admin: 08/18/16 14:47 Dose: 5 mg Enoxaparin Sodium (Lovenox) 40 mg SC DAILY [facility] Last Admin: 09/01/16 09:18 Dose: 40 mg Famotidine (Pepcid) 20 mg PO BID [facility] Last Admin: 09/01/16 09:18 Dose: 20 mg Lidocaine (Lidoderm) 1 ea TD DAILY [facility] Last Admin: 09/01/16 09:18 Dose: 1 ea Polyethylene Glycol (Miralax) 17 gm PO DAILY [facility] Last Admin: 08/21/16 09:12 Dose: Not Given Simethicone (Mylicon Chew Tab) 80 mg PO QID PRN PRN Reason: GI distress Last Admin: 08/31/16 18:06 Dose: 80 mg Tamsulosin HCl (Flomax) 0.8 mg PO DAILY [facility] Last Admin: 09/01/16 09:18 Dose: 0.8 mg Tramadol HCl (Ultram) 50 mg PO TID PRN PRN Reason: Pain, moderate (4-7) Last Admin: 08/31/16 18:06 Dose: 50 mg - Labs Labs: 08/28/16 07:24 08/28/16 07:24 - Constitutional Appears: Well, No Acute Distress - Extremities Exam Additional comments: Right knee: TTP anterior medial knee over MFC. No erythema, no effusionl. No TTP tibia. Calves soft NT neg homans. Sensation intact, +DP pulse. Knee injection: Risks, benefits, alternatives of knee intraarticular inection were explained to the patient in detail, patient verbally consented to procedure. The patients right knee was prepped in the usual sterile fashion with chloroprep, then inserted a 21-gauge, 1 inch needle into the knee joint using superior lateral approach. Through this needle a solution of 40mg Depo- medrol and 4cc 0.5% Marcaine was given. The needle was removed and a sterile dressing was applied. Patient tolerated the procedure well, and felt relief post procedure. - Neurological Exam Neurological Exam: Alert, Awake, Oriented x3 - Psychiatric Exam Psychiatric exam: Normal Affect, Normal Mood - Skin Skin Exam: Dry, Intact, Normal Color, Warm Assessment and Plan (1) Acetabular protrusion Assessment & Plan: stable no ortho intervention Status: Chronic (2) Fracture of tibia, proximal, right, closed Assessment & Plan: healed ?fx on recent xray ruled out by CT continue WBAT /PT/ambulation training awaiting placement Status: Chronic (3) Right knee DJD Assessment & Plan: patellofemoral compartment s/p injection Status: Acute Procedures Attestation:: I certify that I have explained the specified Operation(s) or Procedure(s), risks, benefits and reasonable alternatives to the Patient and/or other person responsible. The opportunity was given to ask questions and all questions answered - Joint Aspiration/Injection Joint #1 Consent Obtained: Verbal Consent Time Out Performed: Yes Side of Body: Right Joint Aspirated: Knee Ultrasound Guidance Used: No Skin Prep: Chlorprep Needle Size Used: 22 G Medication Injected: Methylprednisolone, Other (40mg depomedrol and 4cc 0.5% marcaine) Patient Tolorated Procedure: Well Complications: None
--- NOTE | 2016-09-02 01:38 | CP.PCM.PN ---
<Jessica Swanson - Last Filed: 09/02/16 08:11> Subjective - Date & Time of Evaluation Date of Evaluation: 09/02/16 Time of Evaluation: 00:00 - Subjective Subjective: PGY-1 medicine note- Dr. Wiggins's Service Patient seen and examined and in no acute distress. Patient denies subjective fevers or chills, chest pain,nausea,vomiting, or diarrhea at this time. Objective - Vital Signs/Intake and Output Vital Signs (last 24 hours): Temp Pulse Resp BP Pulse Ox 97.9 F 79 20 119/75 96 09/02/16 00:00 09/02/16 00:00 09/02/16 00:00 09/02/16 00:00 09/02/16 00:00 Intake and Output: 09/01/16 09/02/16 18:59 06:59 Intake Total 500 300 Output Total 500 Balance 500 -200 - Medications Medications: Current Medications Acetaminophen (Tylenol 325mg Tab) 650 mg PO Q6 PRN PRN Reason: Pain, Mild (1-3) Last Admin: 08/24/16 23:02 Dose: 650 mg Bisacodyl (Dulcolax) 5 mg PO Q12 PRN PRN Reason: Constipation Last Admin: 08/18/16 14:47 Dose: 5 mg Enoxaparin Sodium (Lovenox) 40 mg SC DAILY [facility] Last Admin: 09/01/16 09:18 Dose: 40 mg Famotidine (Pepcid) 20 mg PO BID [facility] Last Admin: 09/01/16 17:19 Dose: 20 mg Lidocaine (Lidoderm) 1 ea TD DAILY [facility] Last Admin: 09/01/16 09:18 Dose: 1 ea Polyethylene Glycol (Miralax) 17 gm PO DAILY [facility] Last Admin: 08/21/16 09:12 Dose: Not Given Simethicone (Mylicon Chew Tab) 80 mg PO QID PRN PRN Reason: GI distress Last Admin: 08/31/16 18:06 Dose: 80 mg Tamsulosin HCl (Flomax) 0.8 mg PO DAILY [facility] Last Admin: 09/01/16 09:18 Dose: 0.8 mg Tramadol HCl (Ultram) 50 mg PO TID PRN PRN Reason: Pain, moderate (4-7) Last Admin: 08/31/16 18:06 Dose: 50 mg - Labs Labs: 08/28/16 07:24 08/28/16 07:24 - Constitutional Appears: No Acute Distress - Head Exam Head Exam: NORMAL INSPECTION, NORMOCEPHALIC - Respiratory Exam Respiratory Exam: Clear to Ausculation Bilateral, NORMAL BREATHING PATTERN - Cardiovascular Exam Cardiovascular Exam: REGULAR RHYTHM, +S1, +S2 - GI/Abdominal Exam GI & Abdominal Exam: Soft, Normal Bowel Sounds. absent: Tenderness - Extremities Exam Extremities Exam: Normal Inspection. absent: Joint Swelling, Pedal Edema - Neurological Exam Neurological Exam: Alert, Awake, Oriented x3 Assessment and Plan - Assessment and Plan (Free Text) Plan: 1.) Fracture of tibia, proximal, right, closed Continue physical therapy; goal is for use of cane per ortho. can be d/c to skilled nursing when tolerating cane Patient can ambulate with support with a walker Patient is progressively weight bearing. No ortho intervention needed at this time. Ortho monitoring. Ortho saw patient 08/30 and recommended to continue PT/ OT. Ortho saw patient 09/01 and gave right knee steroid injection. Patient tolerated it well and felt relief. Tylenol 650 mg PO Q6 PRN mild pain, Ultram 50 mg PO TID PRN for moderate pain Daily physical therapy to maximize ambulation with cane unassisted. 08/21 studies noted below: Lower Extremity CT: osteopenia and degenerative change, no acute fracture or joint effusion Knee XRAY: initial questionable fracture ruled out by CT imaging. Pelvis XRAY stable acetabular protrusion. Refer to complete reports 2.) Gait instability xrays right knee show resolved area of sclerosis at presumed stress fracture right lateral tibial plateau (MRI contraindicated due to metallic implant in patella) Will need continued PT until patient is stable with cane 3.) Constipation continue Miralax 17gm PO daily 4.) BPH Flomax 0.8 mg PO daily 5.) Aneurysmal dilatation Aneurysmal dilatation of ascending thoracic aorta; Currently 4.[address] imaging every 6 months 6.) Sacral decubitus ulcer Out of bed into chair daily and continue to encourage ambulation Continue working with physical therapy 7.) Anemia Hgb stable. Cont to monitor. Weekly labs 8.) History of recurrent UTIs Continue to monitor Most recent 06/22 Currently asymptomatic UA negative 9.) Seborrheic dermatitis Monitor for recurrence. 10.) Prophylaxis Labs weekly on [place] Lovenox 40mg SC daily Pepcid 20mg PO BID Patient is homeless. Goal is to walk with cane so he can go to a skilled nursing (will not qualify with a walker) Pt pending transfer, awaiting placement PT: home w services and knee brace; currently working with physical therapy with single point cane Patient is encouraged to leave bed curtains open to prevent being closed off from surroundings. Discussed with nursing team as well. <Jose Wiggins - Last Filed: 09/02/16 15:07> Objective - Vital Signs/Intake and Output Vital Signs (last 24 hours): Temp Pulse Resp BP Pulse Ox 97.9 F 88 20 130/75 99 09/02/16 07:33 09/02/16 07:33 09/02/16 07:33 09/02/16 07:33 09/02/16 07:33 Intake and Output: 09/02/16 09/02/16 06:59 18:59 Intake Total 300 Output Total 500 Balance -200 - Medications Medications: Current Medications Acetaminophen (Tylenol 325mg Tab) 650 mg PO Q6 PRN PRN Reason: Pain, Mild (1-3) Last Admin: 08/24/16 23:02 Dose: 650 mg Bisacodyl (Dulcolax) 5 mg PO Q12 PRN PRN Reason: Constipation Last Admin: 08/18/16 14:47 Dose: 5 mg Enoxaparin Sodium (Lovenox) 40 mg SC DAILY [facility] Last Admin: 09/02/16 11:13 Dose: 40 mg Famotidine (Pepcid) 20 mg PO BID [facility] Last Admin: 09/02/16 11:07 Dose: 20 mg Lidocaine (Lidoderm) 1 ea TD DAILY [facility] Last Admin: 09/02/16 11:14 Dose: 1 ea Polyethylene Glycol (Miralax) 17 gm PO DAILY [facility] Last Admin: 08/21/16 09:12 Dose: Not Given Simethicone (Mylicon Chew Tab) 80 mg PO QID PRN PRN Reason: GI distress Last Admin: 08/31/16 18:06 Dose: 80 mg Tamsulosin HCl (Flomax) 0.8 mg PO DAILY [facility] Last Admin: 09/02/16 11:14 Dose: 0.8 mg Tramadol HCl (Ultram) 50 mg PO TID PRN PRN Reason: Pain, moderate (4-7) Last Admin: 08/31/16 18:06 Dose: 50 mg - Labs Labs: 08/28/16 07:24 08/28/16 07:24 Attending/Attestation - Attestation I have personally seen and examined this patient.: Yes I have fully participated in the care of the patient.: Yes I have reviewed all pertinent clinical information, including history, physical exam and plan: Yes Notes (Text): 09/02/16 15:07 Patient was seen and examined at bedside with the resident Status post intra-articular steroid injection by orthopedics Patient feeling better Continue current medical management Continue physical therapy daily Discharge planning when patient is stronger I discussed the plan of care with the resident agree with the history and physical and assessment/plan
[2016-09-02] MEDS: Enoxaparin 40 mg Syringe SC SCH (11:13)
[2016-09-02] MEDS: Lidocaine 5% Patch TD SCH (11:14)
--- NOTE | 2016-09-03 05:06 | CP.PCM.PN ---
Subjective - Date & Time of Evaluation Date of Evaluation: 09/03/16 Time of Evaluation: 00:30 - Subjective Subjective: PGY-1 medicine note- Dr. Wiggins's Service Patient seen and examined and in no acute distress. Patient denies subjective fevers or chills, chest pain,nausea,vomiting, or diarrhea at this time. Objective - Vital Signs/Intake and Output Vital Signs (last 24 hours): Temp Pulse Resp BP Pulse Ox 97.9 F 70 20 109/67 97 09/03/16 00:00 09/03/16 00:00 09/03/16 00:00 09/03/16 00:00 09/03/16 00:00 Intake and Output: 09/02/16 09/03/16 18:59 06:59 Intake Total 240 250 Balance 240 250 - Medications Medications: Current Medications Acetaminophen (Tylenol 325mg Tab) 650 mg PO Q6 PRN PRN Reason: Pain, Mild (1-3) Last Admin: 08/24/16 23:02 Dose: 650 mg Bisacodyl (Dulcolax) 5 mg PO Q12 PRN PRN Reason: Constipation Last Admin: 08/18/16 14:47 Dose: 5 mg Enoxaparin Sodium (Lovenox) 40 mg SC DAILY [facility] Last Admin: 09/02/16 11:13 Dose: 40 mg Famotidine (Pepcid) 20 mg PO BID [facility] Last Admin: 09/02/16 18:06 Dose: 20 mg Lidocaine (Lidoderm) 1 ea TD DAILY [facility] Last Admin: 09/02/16 11:14 Dose: 1 ea Polyethylene Glycol (Miralax) 17 gm PO DAILY [facility] Last Admin: 08/21/16 09:12 Dose: Not Given Simethicone (Mylicon Chew Tab) 80 mg PO QID PRN PRN Reason: GI distress Last Admin: 08/31/16 18:06 Dose: 80 mg Tamsulosin HCl (Flomax) 0.8 mg PO DAILY [facility] Last Admin: 09/02/16 11:14 Dose: 0.8 mg Tramadol HCl (Ultram) 50 mg PO TID PRN PRN Reason: Pain, moderate (4-7) Last Admin: 08/31/16 18:06 Dose: 50 mg - Labs Labs: 08/28/16 07:24 08/28/16 07:24 - Constitutional Appears: No Acute Distress - Head Exam Head Exam: NORMAL INSPECTION, NORMOCEPHALIC - Eye Exam Eye Exam: EOMI, PERRL Pupil Exam: NORMAL ACCOMODATION - ENT Exam ENT Exam: Mucous Membranes Moist - Respiratory Exam Respiratory Exam: Clear to Ausculation Bilateral, NORMAL BREATHING PATTERN. absent: Rales, Rhonchi, Wheezes, Stridor - Cardiovascular Exam Cardiovascular Exam: REGULAR RHYTHM, RRR, +S1, +S2. absent: JVD - GI/Abdominal Exam GI & Abdominal Exam: Soft, Normal Bowel Sounds. absent: Guarding, Tenderness, Rebound - Extremities Exam Extremities Exam: absent: Joint Swelling, Pedal Edema - Neurological Exam Neurological Exam: Alert, Awake, Oriented x3 - Skin Skin Exam: Dry, Normal Color, Warm. absent: Rash Assessment and Plan - Assessment and Plan (Free Text) Plan: 1.) Fracture of tibia, proximal, right, closed Continue physical therapy; goal is for use of cane per ortho. can be d/c to jail when tolerating cane Patient can ambulate with support with a walker Patient is progressively weight bearing. No ortho intervention needed at this time. Ortho monitoring. Ortho saw patient 08/30 and recommended to continue PT/ OT. Ortho saw patient 09/01 and gave right knee steroid injection. Patient tolerated it well and felt relief. Tylenol 650 mg PO Q6 PRN mild pain, Ultram 50 mg PO TID PRN for moderate pain Daily physical therapy to maximize ambulation with cane unassisted. 08/21 studies noted below: Lower Extremity CT: osteopenia and degenerative change, no acute fracture or joint effusion Knee XRAY: initial questionable fracture ruled out by CT imaging. Pelvis XRAY stable acetabular protrusion. Refer to complete reports 2.) Gait instability xrays right knee show resolved area of sclerosis at presumed stress fracture right lateral tibial plateau (MRI contraindicated due to metallic implant in patella) Will need continued PT until patient is stable with cane 3.) Constipation continue Miralax 17gm PO daily 4.) BPH Flomax 0.8 mg PO daily 5.) Aneurysmal dilatation Aneurysmal dilatation of ascending thoracic aorta; Currently 4.[address] imaging every 6 months 6.) Sacral decubitus ulcer Out of bed into chair daily and continue to encourage ambulation Continue working with physical therapy 7.) Anemia Hgb stable. Cont to monitor. Weekly labs 8.) History of recurrent UTIs Continue to monitor Most recent 06/22 Currently asymptomatic UA negative 9.) Seborrheic dermatitis Monitor for recurrence. 10.) Prophylaxis Labs weekly on Sunday Lovenox 40mg SC daily Pepcid 20mg PO BID Patient is homeless. Goal is to walk with cane so he can go to a jail (will not qualify with a walker) Pt pending transfer, awaiting placement PT: home w services and knee brace; currently working with physical therapy with single point cane Patient is encouraged to leave bed curtains open to prevent being closed off from surroundings. Discussed with nursing team as well.
[2016-09-03 09:24] LABS: BASO % 0.3 % (0.0-2.0); EOS % 0.9 % (0.0-4.0); HEMOGLOBIN 12.1 g/dL (12.0-18.0); LYMPH # 1.5 K/uL (1.0-4.3); LYMPH % 25.8 % (20.0-40.0); MEAN CELL VOLUME 94.5 fL (80.0-94.0); MEAN CORPUSCULAR HEMOGLOBIN 31.2 pg (27.0-31.0); MEAN PLATELET VOLUME 8.7 fL (7.2-11.7); MONO # 0.5 K/uL (0.0-0.8); NEUT # 3.7 K/uL (1.8-7.0); RBC 3.88 Mil/uL (4.40-5.90); RED CELL DISTRIBUTION WIDTH 14.5 % (11.5-14.5); WHITE BLOOD COUNT 5.8 K/uL (4.8-10.8)
[2016-09-03 09:59] LABS: ALBUMIN 3.4 g/dL (3.5-5.0)
[2016-09-03 10:02] LABS: ALB/GLOB RATIO 0.9 (1.0-2.1); ALT/SGPT 16 U/L (21-72); AST/SGOT 20 U/L (17-59); BLOOD UREA NITROGEN 14 mg/dL (9-20); CALCIUM 8.6 mg/dl (8.6-10.4); GFR AFRICAN-AMERICAN > 60; GFR NON-AFRICAN AMERICAN > 60
[2016-09-03 10:03] LABS: MAGNESIUM 1.8 mg/dL (1.6-2.3)
[2016-09-03] MEDS: Lidocaine 5% Patch TD SCH (11:23)
[2016-09-03] MEDS: Enoxaparin 40 mg Syringe SC SCH (11:23)
[2016-09-04 07:22] LABS: BASO % 0.6 % (0.0-2.0); EOS % 0.7 % (0.0-4.0); HEMOGLOBIN 13.1 g/dL (12.0-18.0); LYMPH # 1.8 K/uL (1.0-4.3); LYMPH % 35.4 % (20.0-40.0); MEAN CELL VOLUME 93.7 fL (80.0-94.0); MEAN CORPUSCULAR HEMOGLOBIN 31.6 pg (27.0-31.0); MEAN CORPUSCULAR HGB CONC 33.7 g/dL (33.0-37.0); MEAN PLATELET VOLUME 8.3 fL (7.2-11.7); MONO # 0.5 K/uL (0.0-0.8); MONO % 9.4 % (0.0-10.0); NEUT # 2.7 K/uL (1.8-7.0); NEUT % 53.9 % (50.0-75.0); NRBC % 0.1 % (0.0-2.0); RBC 4.14 Mil/uL (4.40-5.90); RED CELL DISTRIBUTION WIDTH 14.5 % (11.5-14.5)
[2016-09-04 07:54] LABS: ALBUMIN 3.7 g/dL (3.5-5.0)
[2016-09-04 07:57] LABS: ALB/GLOB RATIO 0.9 (1.0-2.1); ALT/SGPT 15 U/L (21-72); AST/SGOT 20 U/L (17-59); BLOOD UREA NITROGEN 11 mg/dL (9-20); GFR AFRICAN-AMERICAN > 60; GFR NON-AFRICAN AMERICAN > 60
[2016-09-04 07:58] LABS: CALCIUM 8.8 mg/dl (8.6-10.4); MAGNESIUM 1.8 mg/dL (1.6-2.3)
[2016-09-04] MEDS ORDERED: Potassium Chloride 20 mEq ER Tab PO ONE (09:10)
--- NOTE | 2016-09-04 10:10 | CP.PCM.PN ---
Subjective - Date & Time of Evaluation Date of Evaluation: 09/04/16 Time of Evaluation: 10:06 - Subjective Subjective: Patient complaining of pain. Says his right knee hurts, and his right hip hurts , and his left leg hurts. Patient says his right knee feels a little better after injection. Objective - Vital Signs/Intake and Output Vital Signs (last 24 hours): Temp Pulse Resp BP Pulse Ox 98.1 F 69 20 112/73 98 09/04/16 08:00 09/04/16 08:00 09/04/16 08:00 09/04/16 08:00 09/04/16 08:00 Intake and Output: 09/04/16 09/04/16 06:59 18:59 Intake Total 250 180 Balance 250 180 - Medications Medications: Current Medications Acetaminophen (Tylenol 325mg Tab) 650 mg PO Q6 PRN PRN Reason: Pain, Mild (1-3) Last Admin: 08/24/16 23:02 Dose: 650 mg Bisacodyl (Dulcolax) 5 mg PO Q12 PRN PRN Reason: Constipation Last Admin: 08/18/16 14:47 Dose: 5 mg Enoxaparin Sodium (Lovenox) 40 mg SC DAILY [facility] Last Admin: 09/03/16 11:23 Dose: 40 mg Famotidine (Pepcid) 20 mg PO BID [facility] Last Admin: 09/03/16 18:50 Dose: 20 mg Lidocaine (Lidoderm) 1 ea TD DAILY [facility] Last Admin: 09/03/16 11:23 Dose: 1 ea Polyethylene Glycol (Miralax) 17 gm PO DAILY [facility] Last Admin: 08/21/16 09:12 Dose: Not Given Simethicone (Mylicon Chew Tab) 80 mg PO QID PRN PRN Reason: GI distress Last Admin: 08/31/16 18:06 Dose: 80 mg Tamsulosin HCl (Flomax) 0.8 mg PO DAILY [facility] Last Admin: 09/03/16 11:27 Dose: Not Given Tramadol HCl (Ultram) 50 mg PO TID PRN PRN Reason: Pain, moderate (4-7) Last Admin: 08/31/16 18:06 Dose: 50 mg - Labs Labs: 09/04/16 07:14 09/04/16 07:14 - Constitutional Appears: Well, No Acute Distress - Cardiovascular Exam Additional comments: +DP pulses calves soft NT neg homans - Extremities Exam Additional comments: Right knee: less tender today. Still extensor lag, advised patient to continue with exercise and to do even without PT. strength slowly improving. Sensation intact RLE. No erythema, no joint effusion. - Neurological Exam Neurological Exam: Alert, Awake, Oriented x3 Neuro motor strength exam: Left Lower Extremity: 5 (no pain with ROM), Right Lower Extremity: 5 (+DP/PT) - Psychiatric Exam Psychiatric exam: Normal Affect, Normal Mood - Skin Skin Exam: Dry, Intact, Normal Color, Warm Assessment and Plan (1) Acetabular protrusion Assessment & Plan: stable no ortho intervention planned PT/OT VTE proph encourage OOB Status: Chronic (2) Fracture of tibia, proximal, right, closed Assessment & Plan: healed fracture suggested by xrays was ruled out by CT Status: Chronic (3) Right knee DJD Assessment & Plan: s/p injection mild improvement cont PT/ambulation goal of cane for skilled nursing placement d/w Dr. Pino, agrees with above Status: Acute
[2016-09-04] MEDS: Enoxaparin 40 mg Syringe SC SCH (10:16)
[2016-09-04] MEDS: Lidocaine 5% Patch TD SCH (11:39)
--- NOTE | 2016-09-04 19:21 | CP.PCM.PN ---
Subjective - Date & Time of Evaluation Date of Evaluation: 09/04/16 Time of Evaluation: 08:00 - Subjective Subjective: PGY1- Medicine Note, Dr. Rutherford's service Patient seen and examined and in no acute distress. Patient complains of some right knee pain, unchanged. Patient denies shortness of breath, chest pain, abdominal pain, nausea, vomiting, diarrhea, constipation. Patient has been having multiple bowel movements with soft stool today and yesterday. Objective - Vital Signs/Intake and Output Vital Signs (last 24 hours): Temp Pulse Resp BP Pulse Ox 97.6 F 78 20 107/65 97 09/04/16 15:00 09/04/16 15:00 09/04/16 15:00 09/04/16 15:00 09/04/16 15:00 Intake and Output: 09/04/16 09/05/16 18:59 06:59 Intake Total 860 Balance 860 - Medications Medications: Current Medications Acetaminophen (Tylenol 325mg Tab) 650 mg PO Q6 PRN PRN Reason: Pain, Mild (1-3) Last Admin: 08/24/16 23:02 Dose: 650 mg Bisacodyl (Dulcolax) 5 mg PO Q12 PRN PRN Reason: Constipation Last Admin: 08/18/16 14:47 Dose: 5 mg Enoxaparin Sodium (Lovenox) 40 mg SC DAILY [facility] Last Admin: 09/04/16 10:16 Dose: 40 mg Famotidine (Pepcid) 20 mg PO BID [facility] Last Admin: 09/04/16 18:12 Dose: 20 mg Lidocaine (Lidoderm) 1 ea TD DAILY [facility] Last Admin: 09/04/16 11:39 Dose: 1 ea Polyethylene Glycol (Miralax) 17 gm PO DAILY [facility] Last Admin: 08/21/16 09:12 Dose: Not Given Simethicone (Mylicon Chew Tab) 80 mg PO QID PRN PRN Reason: GI distress Last Admin: 08/31/16 18:06 Dose: 80 mg Tamsulosin HCl (Flomax) 0.8 mg PO DAILY [facility] Last Admin: 09/04/16 10:15 Dose: 0.8 mg Tramadol HCl (Ultram) 50 mg PO TID PRN PRN Reason: Pain, moderate (4-7) Last Admin: 09/04/16 11:45 Dose: 50 mg - Labs Labs: 09/04/16 07:14 09/04/16 07:14 - Constitutional Appears: Well, Non-toxic, No Acute Distress - Head Exam Head Exam: ATRAUMATIC, NORMAL INSPECTION, NORMOCEPHALIC - Eye Exam Eye Exam: EOMI, Normal appearance, PERRL - ENT Exam ENT Exam: Mucous Membranes Moist, Normal Exam - Neck Exam Neck Exam: Full ROM, Normal Inspection. absent: Lymphadenopathy - Respiratory Exam Respiratory Exam: Clear to Ausculation Bilateral, NORMAL BREATHING PATTERN. absent: Rales, Rhonchi, Wheezes, Stridor - Cardiovascular Exam Cardiovascular Exam: REGULAR RHYTHM, RRR, +S1, +S2. absent: Gallop, Rubs, Murmur - GI/Abdominal Exam GI & Abdominal Exam: Soft, Normal Bowel Sounds. absent: Firm, Guarding, Rigid, Tenderness - Extremities Exam Extremities Exam: Full ROM, Normal Capillary Refill, Normal Inspection, Tenderness. absent: Joint Swelling, Pedal Edema Additional comments: right knee tenderness - Back Exam Back Exam: NORMAL INSPECTION - Neurological Exam Neurological Exam: Alert, Awake, Oriented x3 - Psychiatric Exam Psychiatric exam: Normal Affect, Normal Mood - Skin Skin Exam: Normal Color, Warm Assessment and Plan (1) Fracture of tibia, proximal, right, closed Assessment & Plan: Continue physical therapy; goal is for use of cane per ortho. can be d/c to nursing home when tolerating cane Patient can ambulate with support with a walker Patient is progressively weight bearing. No ortho intervention needed at this time. Ortho monitoring. Ortho saw patient 08/30 and recommended to continue PT/ OT. Ortho saw patient 09/01 and gave right knee steroid injection. Patient tolerated it well and felt relief. Tylenol 650 mg PO Q6 PRN mild pain, Ultram 50 mg PO TID PRN for moderate pain Daily physical therapy to maximize ambulation with cane unassisted. 08/21 studies noted below: Lower Extremity CT: osteopenia and degenerative change, no acute fracture or joint effusion Knee XRAY: initial questionable fracture ruled out by CT imaging. Pelvis XRAY stable acetabular protrusion. Refer to complete reports Status: Chronic (2) Gait instability Assessment & Plan: xrays right knee show resolved area of sclerosis at presumed stress fracture right lateral tibial plateau (MRI contraindicated due to metallic implant in patella) Will need continued PT until patient is stable with cane Status: Acute (3) Constipation Assessment & Plan: continue Miralax 17gm PO daily patient having soft bowel movemtns (09/04) Status: Resolved (4) BPH (benign prostatic hyperplasia) Assessment & Plan: Flomax 0.8 mg PO daily Status: Acute (5) Aneurysmal dilatation Assessment & Plan: Aneurysmal dilatation of ascending thoracic aorta; Currently 4.[address] imaging every 6 months Status: Acute (6) Sacral decubitus ulcer Assessment & Plan: Out of bed into chair daily and continue to encourage ambulation Continue working with physical therapy Status: Resolved (7) Anemia Assessment & Plan: Hgb stable. Cont to monitor. Weekly labs Status: Resolved (8) History of recurrent UTIs Assessment & Plan: Continue to monitor Most recent 06/22 Currently asymptomatic UA negative Status: Resolved (9) Seborrheic dermatitis Assessment & Plan: Monitor for recurrence. Status: Resolved (10) Prophylactic measure Assessment & Plan: Labs weekly on Sunday Lovenox 40mg SC daily Pepcid 20mg PO BID Patient is homeless. Goal is to walk with cane so he can go to a nursing home (will not qualify with a walker) Pt pending transfer, awaiting placement PT: home w services and knee brace; currently working with physical therapy with single point cane Patient is encouraged to leave bed curtains open to prevent being closed off from surroundings. Discussed with nursing team as well. Nursing ordered placed to move patient to a room closer to the nursing station Status: Acute
[2016-09-05 07:36] LABS: HEMOGLOBIN 12.3 g/dL (12.0-18.0); MEAN CELL VOLUME 94.2 fL (80.0-94.0); MEAN CORPUSCULAR HEMOGLOBIN 31.4 pg (27.0-31.0); MEAN CORPUSCULAR HGB CONC 33.4 g/dL (33.0-37.0); RBC 3.9 Mil/uL (4.40-5.90); RED CELL DISTRIBUTION WIDTH 14.7 % (11.5-14.5); WHITE BLOOD COUNT 4.7 K/uL (4.8-10.8)
[2016-09-05 07:37] LABS: BASO % 0.6 % (0.0-2.0); EOS # 0.1 K/uL (0.0-0.7); EOS % 2.1 % (0.0-4.0); LYMPH % 42.8 % (20.0-40.0); MEAN PLATELET VOLUME 7.7 fL (7.2-11.7); MONO # 0.5 K/uL (0.0-0.8); MONO % 10.8 % (0.0-10.0); NEUT % 43.7 % (50.0-75.0); NRBC % 0.1 % (0.0-2.0)
[2016-09-05 07:45] LABS: ALBUMIN 3.4 g/dL (3.5-5.0)
[2016-09-05 07:47] LABS: GFR AFRICAN-AMERICAN > 60; GFR NON-AFRICAN AMERICAN > 60
[2016-09-05 07:48] LABS: ALB/GLOB RATIO 0.9 (1.0-2.1); ALT/SGPT 7 U/L (21-72); AST/SGOT 13 U/L (17-59); BLOOD UREA NITROGEN 12 mg/dL (9-20)
[2016-09-05 07:49] LABS: CALCIUM 8.7 mg/dl (8.6-10.4)
[2016-09-05 07:50] LABS: MAGNESIUM 1.9 mg/dL (1.6-2.3)
[2016-09-05] MEDS: Enoxaparin 40 mg Syringe SC SCH (09:51)
[2016-09-05] MEDS: Lidocaine 5% Patch TD SCH (09:52)
--- NOTE | 2016-09-05 16:46 | CP.PCM.PN ---
<Laurence Ham - Last Filed: 09/05/16 16:41> Subjective - Date & Time of Evaluation Date of Evaluation: 09/05/16 Time of Evaluation: 07:00 - Subjective Subjective: PGY1- Medicine Note- Dr. Rutherford's Service Patient seen and examined at bedside and in no acute distress. Patient states he feels the same. Patient admits he has some pain in his right knee but is ambulating. Patient denies headaches, shortness of breath, chest pain, abdominal pain, nausea, vomiting, diarrhea, or constipation. Objective - Vital Signs/Intake and Output Vital Signs (last 24 hours): Temp Pulse Resp BP Pulse Ox 98.1 F 75 20 121/74 98 09/05/16 08:01 09/05/16 14:24 09/05/16 08:01 09/05/16 08:01 09/05/16 14:24 Intake and Output: 09/05/16 09/05/16 06:59 18:59 Intake Total 650 800 Balance 650 800 - Medications Medications: Current Medications Acetaminophen (Tylenol 325mg Tab) 650 mg PO Q6 PRN PRN Reason: Pain, Mild (1-3) Last Admin: 08/24/16 23:02 Dose: 650 mg Bisacodyl (Dulcolax) 5 mg PO Q12 PRN PRN Reason: Constipation Last Admin: 08/18/16 14:47 Dose: 5 mg Enoxaparin Sodium (Lovenox) 40 mg SC DAILY [facility] Last Admin: 09/05/16 09:51 Dose: 40 mg Famotidine (Pepcid) 20 mg PO BID [facility] Last Admin: 09/05/16 09:49 Dose: 20 mg Lidocaine (Lidoderm) 1 ea TD DAILY [facility] Last Admin: 09/05/16 09:52 Dose: 1 ea Polyethylene Glycol (Miralax) 17 gm PO DAILY [facility] Last Admin: 08/21/16 09:12 Dose: Not Given Simethicone (Mylicon Chew Tab) 80 mg PO QID PRN PRN Reason: GI distress Last Admin: 08/31/16 18:06 Dose: 80 mg Tamsulosin HCl (Flomax) 0.8 mg PO DAILY [facility] Last Admin: 09/05/16 09:50 Dose: Not Given Tramadol HCl (Ultram) 50 mg PO TID PRN PRN Reason: Pain, moderate (4-7) Last Admin: 09/05/16 10:18 Dose: 50 mg - Labs Labs: 09/05/16 07:25 09/05/16 07:25 - Constitutional Appears: Well, Non-toxic, No Acute Distress - Head Exam Head Exam: ATRAUMATIC, NORMAL INSPECTION, NORMOCEPHALIC - Eye Exam Eye Exam: EOMI, Normal appearance, PERRL - ENT Exam ENT Exam: Mucous Membranes Moist, Normal Exam - Neck Exam Neck Exam: Full ROM, Normal Inspection. absent: Lymphadenopathy - Respiratory Exam Respiratory Exam: Clear to Ausculation Bilateral, NORMAL BREATHING PATTERN. absent: Rales, Rhonchi, Wheezes, Respiratory Distress, Stridor - Cardiovascular Exam Cardiovascular Exam: REGULAR RHYTHM, +S1, +S2. absent: Murmur - GI/Abdominal Exam GI & Abdominal Exam: Soft, Normal Bowel Sounds. absent: Distended, Firm, Guarding, Rigid, Tenderness - Extremities Exam Extremities Exam: Full ROM, Normal Capillary Refill, Normal Inspection, Tenderness. absent: Joint Swelling, Pedal Edema Additional comments: right knee tenderness - Back Exam Back Exam: NORMAL INSPECTION. absent: paraspinal tenderness - Neurological Exam Neurological Exam: Alert, Awake, Oriented x3 - Psychiatric Exam Psychiatric exam: Normal Affect, Normal Mood - Skin Skin Exam: Normal Color, Warm Assessment and Plan (1) Fracture of tibia, proximal, right, closed Assessment & Plan: Continue physical therapy; goal is for use of cane per ortho. can be d/c to correction when tolerating cane Patient can ambulate with support with a walker Patient is progressively weight bearing. No ortho intervention needed at this time. Ortho monitoring. Ortho saw patient 08/30 and recommended to continue PT/ OT. Ortho saw patient 09/01 and gave right knee steroid injection. Patient tolerated it well and felt relief. Tylenol 650 mg PO Q6 PRN mild pain, Ultram 50 mg PO TID PRN for moderate pain Daily physical therapy to maximize ambulation with cane unassisted. 08/21 studies noted below: Lower Extremity CT: osteopenia and degenerative change, no acute fracture or joint effusion Knee XRAY: initial questionable fracture ruled out by CT imaging. Pelvis XRAY stable acetabular protrusion. Refer to complete reports Status: Chronic (2) Gait instability Assessment & Plan: xrays right knee show resolved area of sclerosis at presumed stress fracture right lateral tibial plateau (MRI contraindicated due to metallic implant in patella) Will need continued PT until patient is stable with cane Status: Acute (3) Constipation Assessment & Plan: continue Miralax 17gm PO daily patient having soft bowel movemtns (09/04) Status: Resolved (4) BPH (benign prostatic hyperplasia) Assessment & Plan: Flomax 0.8 mg PO daily Status: Acute (5) Aneurysmal dilatation Assessment & Plan: Aneurysmal dilatation of ascending thoracic aorta; Currently 4.[address] imaging every 6 months Status: Acute (6) Sacral decubitus ulcer Assessment & Plan: Out of bed into chair daily and continue to encourage ambulation Continue working with physical therapy Status: Resolved (7) Anemia Assessment & Plan: Hgb stable. Cont to monitor. Weekly labs Status: Resolved (8) History of recurrent UTIs Assessment & Plan: Continue to monitor Most recent 06/22 Currently asymptomatic UA negative Status: Resolved (9) Seborrheic dermatitis Assessment & Plan: Monitor for recurrence. Status: Resolved (10) Prophylactic measure Assessment & Plan: Labs weekly on Sunday Lovenox 40mg SC daily Pepcid 20mg PO BID Patient is homeless. Goal is to walk with cane so he can go to a correction (will not qualify with a walker) Pt pending transfer, awaiting placement PT: home w services and knee brace; currently working with physical therapy with single point cane Patient is encouraged to leave bed curtains open to prevent being closed off from surroundings. Discussed with nursing team as well. Nursing ordered placed to have patient sit outside of nurse's station. Status: Acute <Sukhwinder Rutherford H - Last Filed: 09/05/16 16:56> Objective - Vital Signs/Intake and Output Vital Signs (last 24 hours): Temp Pulse Resp BP Pulse Ox 98.1 F 75 20 121/74 98 09/05/16 08:01 09/05/16 14:24 09/05/16 08:01 09/05/16 08:01 09/05/16 14:24 Intake and Output: 09/05/16 09/05/16 06:59 18:59 Intake Total 650 800 Balance 650 800 - Medications Medications: Current Medications Acetaminophen (Tylenol 325mg Tab) 650 mg PO Q6 PRN PRN Reason: Pain, Mild (1-3) Last Admin: 08/24/16 23:02 Dose: 650 mg Bisacodyl (Dulcolax) 5 mg PO Q12 PRN PRN Reason: Constipation Last Admin: 08/18/16 14:47 Dose: 5 mg Enoxaparin Sodium (Lovenox) 40 mg SC DAILY [facility] Last Admin: 09/05/16 09:51 Dose: 40 mg Famotidine (Pepcid) 20 mg PO BID [facility] Last Admin: 09/05/16 09:49 Dose: 20 mg Lidocaine (Lidoderm) 1 ea TD DAILY [facility] Last Admin: 09/05/16 09:52 Dose: 1 ea Polyethylene Glycol (Miralax) 17 gm PO DAILY [facility] Last Admin: 08/21/16 09:12 Dose: Not Given Simethicone (Mylicon Chew Tab) 80 mg PO QID PRN PRN Reason: GI distress Last Admin: 08/31/16 18:06 Dose: 80 mg Tamsulosin HCl (Flomax) 0.8 mg PO DAILY [facility] Last Admin: 09/05/16 09:50 Dose: Not Given Tramadol HCl (Ultram) 50 mg PO TID PRN PRN Reason: Pain, moderate (4-7) Last Admin: 09/05/16 10:18 Dose: 50 mg - Labs Labs: 09/05/16 07:25 09/05/16 07:25 Attending/Attestation - Attestation I have personally seen and examined this patient.: Yes I have fully participated in the care of the patient.: Yes I have reviewed all pertinent clinical information, including history, physical exam and plan: Yes Notes (Text): 09/05/16 16:55 Medical attending: Patient was seen and examined by me, agrees the above note by medical librarian. He's been moved to a room closer to the nurses station. I explained that the next step is to have the patient be in a geriatric chair outside of his room so that he cannot isolate himself behind the bed curtains - watching you tube. The reason being is the patient seems completely uninterested in the outside world and at this rate he's not to get any stronger. Thank you very much, Sukhwinder Rutherford
[2016-09-06 07:37] LABS: BASO % 0.6 % (0.0-2.0); EOS # 0.1 K/uL (0.0-0.7); EOS % 2.5 % (0.0-4.0); HEMOGLOBIN 11.9 g/dL (12.0-18.0); LYMPH # 1.5 K/uL (1.0-4.3); LYMPH % 32.9 % (20.0-40.0); MEAN CELL VOLUME 93.9 fL (80.0-94.0); MEAN CORPUSCULAR HGB CONC 34.1 g/dL (33.0-37.0); MEAN PLATELET VOLUME 8.4 fL (7.2-11.7); MONO # 0.6 K/uL (0.0-0.8); MONO % 13.1 % (0.0-10.0); NEUT # 2.3 K/uL (1.8-7.0); NEUT % 50.9 % (50.0-75.0); RBC 3.73 Mil/uL (4.40-5.90); RED CELL DISTRIBUTION WIDTH 14.9 % (11.5-14.5); WHITE BLOOD COUNT 4.5 K/uL (4.8-10.8)
[2016-09-06 07:50] LABS: ALBUMIN 3.5 g/dL (3.5-5.0)
[2016-09-06 07:53] LABS: ALT/SGPT 7 U/L (21-72); AST/SGOT 13 U/L (17-59); BLOOD UREA NITROGEN 14 mg/dL (9-20); GFR AFRICAN-AMERICAN > 60; GFR NON-AFRICAN AMERICAN > 60
[2016-09-06 07:54] LABS: CALCIUM 8.6 mg/dl (8.6-10.4); MAGNESIUM 1.9 mg/dL (1.6-2.3)
[2016-09-06] MEDS: Enoxaparin 40 mg Syringe SC SCH (09:29)
[2016-09-06] MEDS: Lidocaine 5% Patch TD SCH (09:30)
[2016-09-06] MEDS: Simethicone 80 mg Chewtab PO PRN (11:42)
--- NOTE | 2016-09-06 12:54 | CP.PCM.PN ---
<Laurence Ham - Last Filed: 09/06/16 16:47> Subjective - Date & Time of Evaluation Date of Evaluation: 09/06/16 Time of Evaluation: 07:00 - Subjective Subjective: PGY1- Medicine Note- Dr. Rutherford's Service Patient seen and examined at bedside and in no acute distress. Patient states he feels the same. Patient admits he has some pain in his right knee but is ambulating. Patient denies headaches, shortness of breath, chest pain, abdominal pain, nausea, vomiting, diarrhea, or constipation. Patient in a room closer to nurses station to keep him from isolating himself. Objective - Vital Signs/Intake and Output Vital Signs (last 24 hours): Temp Pulse Resp BP Pulse Ox 98.2 F 68 20 107/66 98 09/06/16 07:46 09/06/16 07:46 09/06/16 07:46 09/06/16 07:46 09/06/16 07:46 Intake and Output: 09/06/16 09/06/16 06:59 18:59 Intake Total 700 200 Output Total 500 Balance 200 200 - Medications Medications: Current Medications Acetaminophen (Tylenol 325mg Tab) 650 mg PO Q6 PRN PRN Reason: Pain, Mild (1-3) Last Admin: 08/24/16 23:02 Dose: 650 mg Bisacodyl (Dulcolax) 5 mg PO Q12 PRN PRN Reason: Constipation Last Admin: 08/18/16 14:47 Dose: 5 mg Enoxaparin Sodium (Lovenox) 40 mg SC DAILY [facility] Last Admin: 09/06/16 09:29 Dose: 40 mg Famotidine (Pepcid) 20 mg PO BID [facility] Last Admin: 09/06/16 09:29 Dose: 20 mg Lidocaine (Lidoderm) 1 ea TD DAILY [facility] Last Admin: 09/06/16 09:30 Dose: 1 ea Polyethylene Glycol (Miralax) 17 gm PO DAILY [facility] Last Admin: 08/21/16 09:12 Dose: Not Given Simethicone (Mylicon Chew Tab) 80 mg PO QID PRN PRN Reason: GI distress Last Admin: 09/06/16 11:42 Dose: 80 mg Tamsulosin HCl (Flomax) 0.8 mg PO DAILY [facility] Last Admin: 09/06/16 09:29 Dose: 0.8 mg Tramadol HCl (Ultram) 50 mg PO TID PRN PRN Reason: Pain, moderate (4-7) Last Admin: 09/06/16 11:41 Dose: 50 mg - Labs Labs: 09/06/16 07:18 09/06/16 07:18 - Constitutional Appears: Well, Non-toxic, No Acute Distress - Head Exam Head Exam: ATRAUMATIC, NORMAL INSPECTION, NORMOCEPHALIC - Eye Exam Eye Exam: EOMI, Normal appearance, PERRL - ENT Exam ENT Exam: Mucous Membranes Moist, Normal Exam - Neck Exam Neck Exam: Full ROM, Normal Inspection. absent: Lymphadenopathy - Respiratory Exam Respiratory Exam: Clear to Ausculation Bilateral, NORMAL BREATHING PATTERN. absent: Rhonchi, Wheezes, Respiratory Distress, Stridor - Cardiovascular Exam Cardiovascular Exam: REGULAR RHYTHM, +S1, +S2. absent: Murmur - GI/Abdominal Exam GI & Abdominal Exam: Soft, Normal Bowel Sounds. absent: Distended, Firm, Guarding, Rigid, Tenderness - Extremities Exam Extremities Exam: Full ROM, Normal Capillary Refill, Normal Inspection, Tenderness. absent: Joint Swelling, Pedal Edema Additional comments: right knee tenderness - Back Exam Back Exam: NORMAL INSPECTION - Neurological Exam Neurological Exam: Alert, Awake, Oriented x3 - Psychiatric Exam Psychiatric exam: Normal Affect, Normal Mood - Skin Skin Exam: Intact, Normal Color, Warm Assessment and Plan (1) Fracture of tibia, proximal, right, closed Assessment & Plan: Continue physical therapy; goal is for use of cane per ortho. can be d/c to jail when tolerating cane Patient can ambulate with support with a walker Patient is progressively weight bearing. No ortho intervention needed at this time. Ortho monitoring. Ortho saw patient 08/30 and recommended to continue PT/ OT. Ortho saw patient 09/01 and gave right knee steroid injection. Patient tolerated it well and felt relief. Tylenol 650 mg PO Q6 PRN mild pain, Ultram 50 mg PO TID PRN for moderate pain Daily physical therapy to maximize ambulation with cane unassisted. 08/21 studies noted below: Lower Extremity CT: osteopenia and degenerative change, no acute fracture or joint effusion Knee XRAY: initial questionable fracture ruled out by CT imaging. Pelvis XRAY stable acetabular protrusion. Refer to complete reports Status: Chronic (2) Gait instability Assessment & Plan: xrays right knee show resolved area of sclerosis at presumed stress fracture right lateral tibial plateau (MRI contraindicated due to metallic implant in patella) Will need continued PT until patient is stable with cane Status: Acute (3) Constipation Assessment & Plan: continue Miralax 17gm PO daily patient having soft bowel movemtns (09/04) Status: Resolved (4) BPH (benign prostatic hyperplasia) Assessment & Plan: Flomax 0.8 mg PO daily Status: Acute (5) Aneurysmal dilatation Assessment & Plan: Aneurysmal dilatation of ascending thoracic aorta; Currently 4.[address] imaging every 6 months Status: Acute (6) Sacral decubitus ulcer Assessment & Plan: Out of bed into chair daily and continue to encourage ambulation Continue working with physical therapy Status: Resolved (7) Anemia Assessment & Plan: Hgb stable. Cont to monitor. Weekly labs Status: Resolved (8) History of recurrent UTIs Assessment & Plan: Continue to monitor Most recent 06/22 Currently asymptomatic UA negative Status: Resolved (9) Seborrheic dermatitis Assessment & Plan: Monitor for recurrence. Status: Resolved (10) Prophylactic measure Assessment & Plan: Labs weekly on Sunday Lovenox 40mg SC daily Pepcid 20mg PO BID Patient is homeless. Goal is to walk with cane so he can go to a jail (will not qualify with a walker) Pt pending transfer, awaiting placement PT: home w services and knee brace; currently working with physical therapy with single point cane Patient is encouraged to leave bed curtains open to prevent being closed off from surroundings. Discussed with nursing team as well. Nursing ordered placed to have patient sit outside of nurse's station. Status: Acute <Sukhwinder Rutherford H - Last Filed: 09/06/16 17:10> Objective - Vital Signs/Intake and Output Vital Signs (last 24 hours): Temp Pulse Resp BP Pulse Ox 98.2 F 76 20 107/66 96 09/06/16 07:46 09/06/16 13:15 09/06/16 07:46 09/06/16 07:46 09/06/16 13:15 Intake and Output: 09/06/16 09/06/16 06:59 18:59 Intake Total 700 800 Output Total 500 Balance 200 800 - Medications Medications: Current Medications Acetaminophen (Tylenol 325mg Tab) 650 mg PO Q6 PRN PRN Reason: Pain, Mild (1-3) Last Admin: 08/24/16 23:02 Dose: 650 mg Bisacodyl (Dulcolax) 5 mg PO Q12 PRN PRN Reason: Constipation Last Admin: 08/18/16 14:47 Dose: 5 mg Enoxaparin Sodium (Lovenox) 40 mg SC DAILY [facility] Last Admin: 09/06/16 09:29 Dose: 40 mg Famotidine (Pepcid) 20 mg PO BID [facility] Last Admin: 09/06/16 09:29 Dose: 20 mg Lidocaine (Lidoderm) 1 ea TD DAILY [facility] Last Admin: 09/06/16 09:30 Dose: 1 ea Polyethylene Glycol (Miralax) 17 gm PO DAILY [facility] Last Admin: 08/21/16 09:12 Dose: Not Given Simethicone (Mylicon Chew Tab) 80 mg PO QID PRN PRN Reason: GI distress Last Admin: 09/06/16 11:42 Dose: 80 mg Tamsulosin HCl (Flomax) 0.8 mg PO DAILY [facility] Last Admin: 09/06/16 09:29 Dose: 0.8 mg Tramadol HCl (Ultram) 50 mg PO TID PRN PRN Reason: Pain, moderate (4-7) Last Admin: 09/06/16 11:41 Dose: 50 mg - Labs Labs: 09/06/16 07:18 09/06/16 07:18 Attending/Attestation - Attestation I have personally seen and examined this patient.: Yes I have fully participated in the care of the patient.: Yes I have reviewed all pertinent clinical information, including history, physical exam and plan: Yes Notes (Text): 09/06/16 17:09 Medical attending: Patient was seen and examined by me, agrees the above note by medical office technology instructor. He is now moved much closer to the nurses station. The nurses understand that there to try to get him to sit in front the nurses station. I just wanted to get him away from the computer monitor, he's always watching you to he has no interest in the outside world. If this is allowed to continue to do nothing but sit there and never get stronger Thank you very much, Sukhwinder Rutherford
[2016-09-07 07:35] LABS: BASO % 0.5 % (0.0-2.0); EOS # 0.1 K/uL (0.0-0.7); EOS % 1.3 % (0.0-4.0); HEMOGLOBIN 12.3 g/dL (12.0-18.0); LYMPH # 1.6 K/uL (1.0-4.3); LYMPH % 35.6 % (20.0-40.0); MEAN CORPUSCULAR HEMOGLOBIN 32.2 pg (27.0-31.0); MEAN CORPUSCULAR HGB CONC 34.3 g/dL (33.0-37.0); MONO # 0.5 K/uL (0.0-0.8); MONO % 11.8 % (0.0-10.0); NEUT # 2.3 K/uL (1.8-7.0); NEUT % 50.8 % (50.0-75.0); RBC 3.81 Mil/uL (4.40-5.90); RED CELL DISTRIBUTION WIDTH 14.7 % (11.5-14.5); WHITE BLOOD COUNT 4.5 K/uL (4.8-10.8)
--- NOTE | 2016-09-07 07:41 | CP.PCM.PN ---
Subjective - Date & Time of Evaluation Date of Evaluation: 09/07/16 Time of Evaluation: 07:00 - Subjective Subjective: PGY-1 Medicine Note- Dr. Rutherford's Service Patient seen and examined at bedside and in no acute distress. Patient feels okay and says his right knee feels like always with some pain. Patient denies shortness of breath, chest pain, or abdominal pain. Objective - Vital Signs/Intake and Output Vital Signs (last 24 hours): Temp Pulse Resp BP Pulse Ox 98.1 F 73 20 119/70 98 09/06/16 23:43 09/06/16 23:43 09/06/16 23:43 09/06/16 23:43 09/06/16 23:43 Intake and Output: 09/07/16 09/07/16 06:59 18:59 Intake Total 960 Output Total 300 Balance 660 - Medications Medications: Current Medications Acetaminophen (Tylenol 325mg Tab) 650 mg PO Q6 PRN PRN Reason: Pain, Mild (1-3) Last Admin: 08/24/16 23:02 Dose: 650 mg Bisacodyl (Dulcolax) 5 mg PO Q12 PRN PRN Reason: Constipation Last Admin: 08/18/16 14:47 Dose: 5 mg Enoxaparin Sodium (Lovenox) 40 mg SC DAILY [facility] Last Admin: 09/06/16 09:29 Dose: 40 mg Famotidine (Pepcid) 20 mg PO BID [facility] Last Admin: 09/06/16 17:51 Dose: 20 mg Lidocaine (Lidoderm) 1 ea TD DAILY [facility] Last Admin: 09/06/16 09:30 Dose: 1 ea Polyethylene Glycol (Miralax) 17 gm PO DAILY [facility] Last Admin: 08/21/16 09:12 Dose: Not Given Simethicone (Mylicon Chew Tab) 80 mg PO QID PRN PRN Reason: GI distress Last Admin: 09/06/16 11:42 Dose: 80 mg Tamsulosin HCl (Flomax) 0.8 mg PO DAILY [facility] Last Admin: 09/06/16 09:29 Dose: 0.8 mg Tramadol HCl (Ultram) 50 mg PO TID PRN PRN Reason: Pain, moderate (4-7) Last Admin: 09/06/16 11:41 Dose: 50 mg - Labs Labs: 09/06/16 07:18 09/06/16 07:18 - Constitutional Appears: Well, Non-toxic, No Acute Distress - Head Exam Head Exam: ATRAUMATIC, NORMAL INSPECTION, NORMOCEPHALIC - Eye Exam Eye Exam: EOMI, Normal appearance, PERRL Pupil Exam: NORMAL ACCOMODATION, PERRL - ENT Exam ENT Exam: Mucous Membranes Moist, Normal Exam - Neck Exam Neck Exam: Full ROM, Normal Inspection. absent: Lymphadenopathy - Respiratory Exam Respiratory Exam: Clear to Ausculation Bilateral, NORMAL BREATHING PATTERN. absent: Rales, Rhonchi, Wheezes, Respiratory Distress, Stridor - Cardiovascular Exam Cardiovascular Exam: REGULAR RHYTHM, RRR, +S1, +S2. absent: Murmur - GI/Abdominal Exam GI & Abdominal Exam: Soft, Normal Bowel Sounds. absent: Distended, Firm, Guarding, Rigid, Tenderness - Extremities Exam Extremities Exam: Full ROM, Normal Capillary Refill, Normal Inspection. absent : Joint Swelling, Pedal Edema Additional comments: right knee tenderness - Back Exam Back Exam: NORMAL INSPECTION - Neurological Exam Neurological Exam: Alert, Awake, Oriented x3 - Psychiatric Exam Psychiatric exam: Normal Affect, Normal Mood - Skin Skin Exam: Intact, Normal Color, Warm Assessment and Plan (1) Fracture of tibia, proximal, right, closed Assessment & Plan: Continue physical therapy; goal is for use of cane per ortho. can be d/c to senior living when tolerating cane Patient can ambulate with support with a walker Patient is progressively weight bearing. No ortho intervention needed at this time. Ortho monitoring. Ortho saw patient 08/30 and recommended to continue PT/ OT. Ortho saw patient 09/01 and gave right knee steroid injection. Patient tolerated it well and felt relief. Tylenol 650 mg PO Q6 PRN mild pain, Ultram 50 mg PO TID PRN for moderate pain Daily physical therapy to maximize ambulation with cane unassisted. 08/21 studies noted below: Lower Extremity CT: osteopenia and degenerative change, no acute fracture or joint effusion Knee XRAY: initial questionable fracture ruled out by CT imaging. Pelvis XRAY stable acetabular protrusion. Refer to complete reports Status: Chronic (2) Gait instability Assessment & Plan: 09/07: As per PT, patient feeling weak with headache and declines OOB for lunch. xrays right knee show resolved area of sclerosis at presumed stress fracture right lateral tibial plateau (MRI contraindicated due to metallic implant in patella) Pt continues to work with PT, encourage patient to ambulate Status: Acute (3) Constipation Assessment & Plan: continue Miralax 17gm PO daily patient having soft bowel movemtns (09/04) Status: Resolved (4) BPH (benign prostatic hyperplasia) Assessment & Plan: Flomax 0.8 mg PO daily Status: Acute (5) Aneurysmal dilatation Assessment & Plan: Aneurysmal dilatation of ascending thoracic aorta; Currently 4.[address] imaging every 6 months Status: Acute (6) Sacral decubitus ulcer Assessment & Plan: Out of bed into chair daily and continue to encourage ambulation Continue working with physical therapy Status: Resolved (7) Anemia Assessment & Plan: Hgb stable. Cont to monitor. Weekly labs Status: Resolved (8) History of recurrent UTIs Assessment & Plan: Continue to monitor Most recent 06/22 Currently asymptomatic UA negative Status: Resolved (9) Seborrheic dermatitis Assessment & Plan: Monitor for recurrence. Status: Resolved (10) Prophylactic measure Assessment & Plan: Labs weekly on Sunday Lovenox 40mg SC daily Pepcid 20mg PO BID Patient is homeless. Goal is to walk with cane so he can go to a senior living (will not qualify with a walker) Pt pending transfer, awaiting placement PT: home w services and knee brace; currently working with physical therapy with single point cane Patient is encouraged to leave bed curtains open to prevent being closed off from surroundings. Discussed with nursing team as well. Nursing ordered placed to have patient sit outside of nurse's station. Status: Acute
[2016-09-07 08:01] LABS: ALBUMIN 3.5 g/dL (3.5-5.0)
[2016-09-07 08:04] LABS: ALB/GLOB RATIO 0.9 (1.0-2.1); AST/SGOT 28 U/L (17-59); BLOOD UREA NITROGEN 14 mg/dL (9-20); GFR AFRICAN-AMERICAN > 60; GFR NON-AFRICAN AMERICAN > 60
[2016-09-07 08:05] LABS: ALT/SGPT 10 U/L (21-72); CALCIUM 8.9 mg/dl (8.6-10.4)
[2016-09-07] MEDS: Lidocaine 5% Patch TD SCH (10:08)
[2016-09-07] MEDS: Enoxaparin 40 mg Syringe SC SCH (10:08)
--- NOTE | 2016-09-08 09:38 | CP.PCM.PN ---
<Laurence Ham - Last Filed: 09/08/16 15:16> Subjective - Date & Time of Evaluation Date of Evaluation: 09/08/16 Time of Evaluation: 07:30 - Subjective Subjective: PGY-1 Medicine Note- Dr. Rutherford's Service Patient seen and examined at bedside and in no acute distress. Patient feels okay and explains he did not want to walk around yesterday because he was feeling weak. Says he is feeling better today and will try to walk more. Patient says he has no headache today. Patient denies shortness of breath, chest pain, or abdominal pain. Objective - Vital Signs/Intake and Output Vital Signs (last 24 hours): Temp Pulse Resp BP Pulse Ox 98.0 F 73 20 106/69 97 09/08/16 08:21 09/08/16 08:21 09/08/16 08:21 09/08/16 08:21 09/08/16 08:21 Intake and Output: 09/08/16 09/08/16 06:59 18:59 Intake Total 150 Output Total 300 Balance -150 - Medications Medications: Current Medications Acetaminophen (Tylenol 325mg Tab) 650 mg PO Q6 PRN PRN Reason: Pain, Mild (1-3) Last Admin: 08/24/16 23:02 Dose: 650 mg Bisacodyl (Dulcolax) 5 mg PO Q12 PRN PRN Reason: Constipation Last Admin: 08/18/16 14:47 Dose: 5 mg Enoxaparin Sodium (Lovenox) 40 mg SC DAILY [facility] Last Admin: 09/07/16 10:08 Dose: 40 mg Famotidine (Pepcid) 20 mg PO BID [facility] Last Admin: 09/07/16 18:17 Dose: 20 mg Lidocaine (Lidoderm) 1 ea TD DAILY [facility] Last Admin: 09/07/16 10:08 Dose: 1 ea Polyethylene Glycol (Miralax) 17 gm PO DAILY [facility] Last Admin: 08/21/16 09:12 Dose: Not Given Simethicone (Mylicon Chew Tab) 80 mg PO QID PRN PRN Reason: GI distress Last Admin: 09/06/16 11:42 Dose: 80 mg Tamsulosin HCl (Flomax) 0.8 mg PO DAILY [facility] Last Admin: 09/07/16 10:19 Dose: Not Given Tramadol HCl (Ultram) 50 mg PO TID PRN PRN Reason: Pain, moderate (4-7) Last Admin: 09/07/16 10:10 Dose: 50 mg - Labs Labs: 09/07/16 07:17 09/07/16 07:17 - Constitutional Appears: Well, Non-toxic, No Acute Distress - Head Exam Head Exam: ATRAUMATIC, NORMAL INSPECTION, NORMOCEPHALIC - Eye Exam Eye Exam: EOMI, Normal appearance, PERRL - ENT Exam ENT Exam: Mucous Membranes Moist, Normal Exam - Neck Exam Neck Exam: Full ROM, Normal Inspection. absent: Lymphadenopathy - Respiratory Exam Respiratory Exam: Clear to Ausculation Bilateral, NORMAL BREATHING PATTERN. absent: Rales, Rhonchi, Wheezes, Respiratory Distress, Stridor - Cardiovascular Exam Cardiovascular Exam: REGULAR RHYTHM, RRR, +S1, +S2. absent: Gallop, Rubs, Murmur - GI/Abdominal Exam GI & Abdominal Exam: Soft, Normal Bowel Sounds. absent: Distended, Firm, Guarding, Tenderness - Extremities Exam Extremities Exam: Full ROM, Normal Capillary Refill, Normal Inspection. absent : Joint Swelling, Pedal Edema - Back Exam Back Exam: NORMAL INSPECTION. absent: rash noted - Neurological Exam Neurological Exam: Alert, Awake, Oriented x3 - Psychiatric Exam Psychiatric exam: Normal Affect, Normal Mood - Skin Skin Exam: Intact, Normal Color, Warm Assessment and Plan (1) Fracture of tibia, proximal, right, closed Assessment & Plan: Continue physical therapy; goal is for use of cane per ortho. can be d/c to nursing home when tolerating cane Patient can ambulate with support with a walker Patient is progressively weight bearing. No ortho intervention needed at this time. Ortho monitoring. Ortho saw patient 08/30 and recommended to continue PT/ OT. Ortho saw patient 09/01 and gave right knee steroid injection. Patient tolerated it well and felt relief. Tylenol 650 mg PO Q6 PRN mild pain, Ultram 50 mg PO TID PRN for moderate pain Daily physical therapy to maximize ambulation with cane unassisted. 08/21 studies noted below: Lower Extremity CT: osteopenia and degenerative change, no acute fracture or joint effusion Knee XRAY: initial questionable fracture ruled out by CT imaging. Pelvis XRAY stable acetabular protrusion. Refer to complete reports Status: Chronic Status: Chronic (2) Gait instability Assessment & Plan: 09/07: As per PT, patient feeling weak with headache and declines OOB for lunch. xrays right knee show resolved area of sclerosis at presumed stress fracture right lateral tibial plateau (MRI contraindicated due to metallic implant in patella) Pt continues to work with PT, encourage patient to ambulate Status: Acute (3) Constipation Assessment & Plan: continue Miralax 17gm PO daily patient having soft bowel movemtns (09/04) Status: Resolved (4) BPH (benign prostatic hyperplasia) Assessment & Plan: Flomax 0.8 mg PO daily Status: Acute (5) Aneurysmal dilatation Assessment & Plan: Aneurysmal dilatation of ascending thoracic aorta; Currently 4.[address] imaging every 6 months Status: Acute (6) Sacral decubitus ulcer Assessment & Plan: Out of bed into chair daily and continue to encourage ambulation Continue working with physical therapy Status: Resolved (7) Anemia Assessment & Plan: Hgb stable. Cont to monitor. Weekly Sunday labs Status: Resolved (8) History of recurrent UTIs Assessment & Plan: Continue to monitor Most recent 06/22 Currently asymptomatic UA negative Status: Resolved (9) Seborrheic dermatitis Assessment & Plan: Monitor for recurrence. Status: Resolved (10) Prophylactic measure Assessment & Plan: Labs weekly on Sunday Lovenox 40mg SC daily Pepcid 20mg PO BID Patient is homeless. Goal is to walk with cane so he can go to a nursing home (will not qualify with a walker) Pt pending transfer, awaiting placement PT: home w services and knee brace; currently working with physical therapy with single point cane Patient is encouraged to leave bed curtains open to prevent being closed off from surroundings. Discussed with nursing team as well. Nursing ordered placed to have patient sit outside of nurse's station. Status: Acute <Sukhwinder Rutherford - Last Filed: 09/08/16 16:26> Objective - Vital Signs/Intake and Output Vital Signs (last 24 hours): Temp Pulse Resp BP Pulse Ox 98.5 F 90 20 107/74 95 09/08/16 16:00 09/08/16 16:00 09/08/16 16:00 09/08/16 16:00 09/08/16 16:00 Intake and Output: 09/08/16 09/08/16 06:59 18:59 Intake Total 150 Output Total 300 Balance -150 - Medications Medications: Current Medications Acetaminophen (Tylenol 325mg Tab) 650 mg PO Q6 PRN PRN Reason: Pain, Mild (1-3) Last Admin: 08/24/16 23:02 Dose: 650 mg Bisacodyl (Dulcolax) 5 mg PO Q12 PRN PRN Reason: Constipation Last Admin: 08/18/16 14:47 Dose: 5 mg Enoxaparin Sodium (Lovenox) 40 mg SC DAILY [facility] Last Admin: 09/08/16 10:40 Dose: 40 mg Famotidine (Pepcid) 20 mg PO BID [facility] Last Admin: 09/08/16 10:41 Dose: 20 mg Lidocaine (Lidoderm) 1 ea TD DAILY [facility] Last Admin: 09/08/16 10:39 Dose: 1 ea Polyethylene Glycol (Miralax) 17 gm PO DAILY [facility] Last Admin: 08/21/16 09:12 Dose: Not Given Simethicone (Mylicon Chew Tab) 80 mg PO QID PRN PRN Reason: GI distress Last Admin: 09/06/16 11:42 Dose: 80 mg Tamsulosin HCl (Flomax) 0.8 mg PO DAILY [facility] Last Admin: 09/08/16 10:40 Dose: 0.8 mg Tramadol HCl (Ultram) 50 mg PO TID PRN PRN Reason: Pain, moderate (4-7) Last Admin: 09/07/16 10:10 Dose: 50 mg - Labs Labs: 09/07/16 07:17 09/07/16 07:17 Attending/Attestation - Attestation I have personally seen and examined this patient.: Yes I have fully participated in the care of the patient.: Yes I have reviewed all pertinent clinical information, including history, physical exam and plan: Yes
[2016-09-08] MEDS: Lidocaine 5% Patch TD SCH (10:39)
[2016-09-08] MEDS: Enoxaparin 40 mg Syringe SC SCH (10:40)
--- NOTE | 2016-09-09 08:21 | CP.PCM.PN ---
Subjective - Date & Time of Evaluation Date of Evaluation: 09/09/16 Time of Evaluation: 12:55 - Subjective Subjective: PGY-1 Medicine Note- Dr. Rutherford's Service Patient seen and examined at bedside and in no acute distress. Patient feels okay and explains he did not want to walk around yesterday because he was feeling weak. Says he is feeling better today and will try to walk more. Patient says he has no headache today. Patient denies shortness of breath, chest pain, or abdominal pain. Objective - Vital Signs/Intake and Output Vital Signs (last 24 hours): Temp Pulse Resp BP Pulse Ox 97.9 F 85 20 110/71 99 09/08/16 23:57 09/08/16 23:57 09/08/16 23:57 09/08/16 23:57 09/08/16 23:57 Intake and Output: 09/09/16 09/09/16 06:59 18:59 Intake Total 500 Output Total 350 Balance 150 - Medications Medications: Current Medications Acetaminophen (Tylenol 325mg Tab) 650 mg PO Q6 PRN PRN Reason: Pain, Mild (1-3) Last Admin: 08/24/16 23:02 Dose: 650 mg Bisacodyl (Dulcolax) 5 mg PO Q12 PRN PRN Reason: Constipation Last Admin: 08/18/16 14:47 Dose: 5 mg Enoxaparin Sodium (Lovenox) 40 mg SC DAILY [facility] Last Admin: 09/08/16 10:40 Dose: 40 mg Famotidine (Pepcid) 20 mg PO BID [facility] Last Admin: 09/08/16 17:54 Dose: 20 mg Lidocaine (Lidoderm) 1 ea TD DAILY [facility] Last Admin: 09/08/16 10:39 Dose: 1 ea Polyethylene Glycol (Miralax) 17 gm PO DAILY [facility] Last Admin: 08/21/16 09:12 Dose: Not Given Simethicone (Mylicon Chew Tab) 80 mg PO QID PRN PRN Reason: GI distress Last Admin: 09/06/16 11:42 Dose: 80 mg Tamsulosin HCl (Flomax) 0.8 mg PO DAILY [facility] Last Admin: 09/08/16 10:40 Dose: 0.8 mg Tramadol HCl (Ultram) 50 mg PO TID PRN PRN Reason: Pain, moderate (4-7) Last Admin: 09/09/16 00:06 Dose: 50 mg - Labs Labs: 09/07/16 07:17 09/07/16 07:17 - Constitutional Appears: Well, Non-toxic, No Acute Distress - Head Exam Head Exam: ATRAUMATIC, NORMAL INSPECTION, NORMOCEPHALIC - Eye Exam Eye Exam: Normal appearance - ENT Exam ENT Exam: Mucous Membranes Moist - Neck Exam Neck Exam: Normal Inspection - Respiratory Exam Respiratory Exam: Clear to Ausculation Bilateral, NORMAL BREATHING PATTERN - Cardiovascular Exam Cardiovascular Exam: REGULAR RHYTHM, +S1, +S2 - GI/Abdominal Exam GI & Abdominal Exam: Soft, Normal Bowel Sounds - Rectal Exam Rectal Exam: Deferred - Extremities Exam Extremities Exam: Full ROM - Psychiatric Exam Psychiatric exam: Normal Affect, Normal Mood - Skin Skin Exam: Dry, Intact, Normal Color, Warm Assessment and Plan - Assessment and Plan (Free Text) Assessment: (1) Fracture of tibia, proximal, right, closed Assessment & Plan: Continue physical therapy; goal is for use of cane per ortho. can be d/c to custodial when tolerating cane Patient can ambulate with support with a walker Patient is progressively weight bearing. No ortho intervention needed at this time. Ortho monitoring. Ortho saw patient 08/30 and recommended to continue PT/ OT. Ortho saw patient 09/01 and gave right knee steroid injection. Patient tolerated it well and felt relief. Tylenol 650 mg PO Q6 PRN mild pain, Ultram 50 mg PO TID PRN for moderate pain Daily physical therapy to maximize ambulation with cane unassisted. 08/21 studies noted below: Lower Extremity CT: osteopenia and degenerative change, no acute fracture or joint effusion Knee XRAY: initial questionable fracture ruled out by CT imaging. Pelvis XRAY stable acetabular protrusion. Refer to complete reports Status: Chronic Status: Chronic (2) Gait instability Assessment & Plan: 09/07: As per PT, patient feeling weak with headache and declines OOB for lunch. xrays right knee show resolved area of sclerosis at presumed stress fracture right lateral tibial plateau (MRI contraindicated due to metallic implant in patella) Pt continues to work with PT, encourage patient to ambulate Status: Acute (3) Constipation Assessment & Plan: continue Miralax 17gm PO daily patient having soft bowel movemtns (09/04) Status: Resolved (4) BPH (benign prostatic hyperplasia) Assessment & Plan: Flomax 0.8 mg PO daily Status: Acute (5) Aneurysmal dilatation Assessment & Plan: Aneurysmal dilatation of ascending thoracic aorta; Currently 4.[address] imaging every 6 months Status: Acute (6) Sacral decubitus ulcer Assessment & Plan: Out of bed into chair daily and continue to encourage ambulation Continue working with physical therapy Status: Resolved (7) Anemia Assessment & Plan: Hgb stable. Cont to monitor. Weekly Sunday labs Status: Resolved (8) History of recurrent UTIs Assessment & Plan: Continue to monitor Most recent 06/22 Currently asymptomatic UA negative Status: Resolved (9) Seborrheic dermatitis Assessment & Plan: Monitor for recurrence. Status: Resolved (10) Prophylactic measure Assessment & Plan: Labs weekly on Sunday Lovenox 40mg SC daily Pepcid 20mg PO BID Patient is homeless. Goal is to walk with cane so he can go to a custodial (will not qualify with a walker) Pt pending transfer, awaiting placement PT: home w services and knee brace; currently working with physical therapy with single point cane Patient is encouraged to leave bed curtains open to prevent being closed off from surroundings. Discussed with nursing team as well. Nursing ordered placed to have patient sit outside of nurse's station. Status: Acute
[2016-09-09] MEDS: Enoxaparin 40 mg Syringe SC SCH (10:46)
[2016-09-09] MEDS: Lidocaine 5% Patch TD SCH (10:46)
--- NOTE | 2016-09-10 09:34 | CP.PCM.PN ---
Subjective - Date & Time of Evaluation Date of Evaluation: 09/09/16 Time of Evaluation: 10:40 - Subjective Subjective: This nnote is transcribed today; encounter/evaluation accomplished 09/09 S- pt comfortable at time of encounter, complaining primarily of pain in R knee ; R hip is painless Objective - Vital Signs/Intake and Output Vital Signs (last 24 hours): Temp Pulse Resp BP Pulse Ox 97.4 F L 76 20 115/65 96 09/10/16 08:00 09/10/16 08:00 09/10/16 08:00 09/10/16 08:00 09/10/16 08:00 Intake and Output: 09/10/16 09/10/16 06:59 18:59 Intake Total 200 Balance 200 - Medications Medications: Current Medications Acetaminophen (Tylenol 325mg Tab) 650 mg PO Q6 PRN PRN Reason: Pain, Mild (1-3) Last Admin: 08/24/16 23:02 Dose: 650 mg Bisacodyl (Dulcolax) 5 mg PO Q12 PRN PRN Reason: Constipation Last Admin: 08/18/16 14:47 Dose: 5 mg Enoxaparin Sodium (Lovenox) 40 mg SC DAILY [facility] Last Admin: 09/09/16 10:46 Dose: 40 mg Famotidine (Pepcid) 20 mg PO BID [facility] Last Admin: 09/09/16 10:49 Dose: 20 mg Lidocaine (Lidoderm) 1 ea TD DAILY [facility] Last Admin: 09/09/16 10:46 Dose: 1 ea Polyethylene Glycol (Miralax) 17 gm PO DAILY [facility] Last Admin: 08/21/16 09:12 Dose: Not Given Simethicone (Mylicon Chew Tab) 80 mg PO QID PRN PRN Reason: GI distress Last Admin: 09/06/16 11:42 Dose: 80 mg Tamsulosin HCl (Flomax) 0.8 mg PO DAILY [facility] Last Admin: 09/09/16 10:46 Dose: Not Given Tramadol HCl (Ultram) 50 mg PO TID PRN PRN Reason: Pain, moderate (4-7) Last Admin: 09/09/16 10:47 Dose: 50 mg - Labs Labs: 09/07/16 07:17 09/07/16 07:17 - Additional Findings Additional findings: Objective ' systemic- essentially wnl Musculoskekltal stance/gait- defrred ROM R hip painless/obvious limitation of motion secondary to essential healing of the acetabular fx with ecchymosis Rom r knee- resticted/+ crepitus Assessment and Plan - Assessment and Plan (Free Text) Assessment: A- healed 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
[2016-09-10] MEDS: Lidocaine 5% Patch TD SCH (10:18)
[2016-09-10] MEDS: Enoxaparin 40 mg Syringe SC SCH (10:19)
--- NOTE | 2016-09-10 17:22 | CP.PCM.PN ---
Subjective - Date & Time of Evaluation Date of Evaluation: 09/10/16 Time of Evaluation: 08:30 - Subjective Subjective: PGY-2 Medicine Note- Dr. Rutherford's Service Patient seen and examined at bedside and in no acute distress. Patient feels okay today, but complains of continued R knee pain. Despite this, he will try to ambulate. Patient denies shortness of breath, chest pain, or abdominal pain. Objective - Vital Signs/Intake and Output Vital Signs (last 24 hours): Temp Pulse Resp BP Pulse Ox 97.7 F 70 20 116/68 97 09/10/16 16:00 09/10/16 16:00 09/10/16 16:00 09/10/16 16:00 09/10/16 16:00 Intake and Output: 09/10/16 09/10/16 06:59 18:59 Intake Total 200 860 Balance 200 860 - Medications Medications: Current Medications Acetaminophen (Tylenol 325mg Tab) 650 mg PO Q6 PRN PRN Reason: Pain, Mild (1-3) Last Admin: 08/24/16 23:02 Dose: 650 mg Bisacodyl (Dulcolax) 5 mg PO Q12 PRN PRN Reason: Constipation Last Admin: 08/18/16 14:47 Dose: 5 mg Enoxaparin Sodium (Lovenox) 40 mg SC DAILY [facility] Last Admin: 09/10/16 10:19 Dose: 40 mg Famotidine (Pepcid) 20 mg PO BID [facility] Last Admin: 09/10/16 10:18 Dose: 20 mg Lidocaine (Lidoderm) 1 ea TD DAILY [facility] Last Admin: 09/10/16 10:18 Dose: 1 ea Polyethylene Glycol (Miralax) 17 gm PO DAILY [facility] Last Admin: 08/21/16 09:12 Dose: Not Given Simethicone (Mylicon Chew Tab) 80 mg PO QID PRN PRN Reason: GI distress Last Admin: 09/06/16 11:42 Dose: 80 mg Tamsulosin HCl (Flomax) 0.8 mg PO DAILY [facility] Last Admin: 09/10/16 10:19 Dose: Not Given Tramadol HCl (Ultram) 50 mg PO TID PRN PRN Reason: Pain, moderate (4-7) Last Admin: 09/10/16 10:16 Dose: 50 mg - Labs Labs: 09/07/16 07:17 09/07/16 07:17 - Additional Findings Additional findings: - Constitutional Appears: Well, Non-toxic, No Acute Distress - Head Exam Head Exam: ATRAUMATIC, NORMAL INSPECTION, NORMOCEPHALIC - Eye Exam Eye Exam: Normal appearance - ENT Exam ENT Exam: Mucous Membranes Moist - Neck Exam Neck Exam: Normal Inspection - Respiratory Exam Respiratory Exam: Clear to Ausculation Bilateral, NORMAL BREATHING PATTERN - Cardiovascular Exam Cardiovascular Exam: REGULAR RHYTHM, +S1, +S2 - GI/Abdominal Exam GI & Abdominal Exam: Soft, Normal Bowel Sounds - Extremities Exam Extremities Exam: absent: Full ROM - R knee- resticted/+ crepitus - Psychiatric Exam Psychiatric exam: Normal Affect, Normal Mood - Skin Skin Exam: Dry, Intact, Normal Color, Warm Assessment and Plan - Assessment and Plan (Free Text) Assessment: (1) Fracture of tibia, proximal, right, closed Assessment & Plan: 09/10: per ortho, orthopedically stable; Physio- full weight bearing Continue physical therapy; goal is for use of cane per ortho. can be d/c to longterm when tolerating cane Patient can ambulate with support with a walker Patient is progressively weight bearing. No ortho intervention needed at this time. Ortho monitoring. Ortho saw patient 08/30 and recommended to continue PT/ OT. Ortho saw patient 09/01 and gave right knee steroid injection. Patient tolerated it well and felt relief. Tylenol 650 mg PO Q6 PRN mild pain, Ultram 50 mg PO TID PRN for moderate pain Daily physical therapy to maximize ambulation with cane unassisted. 08/21 studies noted below: Lower Extremity CT: osteopenia and degenerative change, no acute fracture or joint effusion Knee XRAY: initial questionable fracture ruled out by CT imaging. Pelvis XRAY stable acetabular protrusion. Refer to complete reports Status: Chronic Status: Chronic (2) Gait instability Assessment & Plan: 09/10: per ortho, orthopedically stable; Physio- full weight bearing 09/07: As per PT, patient feeling weak with headache and declines OOB for lunch. xrays right knee show resolved area of sclerosis at presumed stress fracture right lateral tibial plateau (MRI contraindicated due to metallic implant in patella) Pt continues to work with PT, encourage patient to ambulate Status: Acute (3) Constipation Assessment & Plan: continue Miralax 17gm PO daily patient having soft bowel movemtns (09/04) Status: Resolved (4) BPH (benign prostatic hyperplasia) Assessment & Plan: Flomax 0.8 mg PO daily Status: Acute (5) Aneurysmal dilatation Assessment & Plan: Aneurysmal dilatation of ascending thoracic aorta; Currently 4.[address] imaging every 6 months Status: Acute (6) Sacral decubitus ulcer Assessment & Plan: Out of bed into chair daily and continue to encourage ambulation Continue working with physical therapy Status: Resolved (7) Anemia Assessment & Plan: Hgb stable. Cont to monitor. Weekly Sunday labs Status: Resolved (8) History of recurrent UTIs Assessment & Plan: Continue to monitor Most recent 06/22 Currently asymptomatic UA negative Status: Resolved (9) Seborrheic dermatitis Assessment & Plan: Monitor for recurrence. Status: Resolved (10) Prophylactic measure Assessment & Plan: Labs weekly on Sunday Lovenox 40mg SC daily Pepcid 20mg PO BID Patient is homeless. Goal is to walk with cane so he can go to a longterm (will not qualify with a walker) Pt pending transfer, awaiting placement PT: home w services and knee brace; currently working with physical therapy with single point cane Patient is encouraged to leave bed curtains open to prevent being closed off from surroundings. Discussed with nursing team as well. Nursing ordered placed to have patient sit outside of nurse's station. Status: Acute
--- NOTE | 2016-09-11 09:08 | CP.PCM.PN ---
Subjective - Date & Time of Evaluation Date of Evaluation: 09/11/16 Time of Evaluation: 09:05 - Subjective Subjective: Patient complaining of outer hip pain today. Knee pain is the same. Review of Systems - Review of Systems All systems: reviewed and no additional remarkable complaints except - Cardiovascular Cardiovascular: UNREMARKABLE - Respiratory Respiratory: UNREMARKABLE - Gastrointestinal Gastrointestinal: UNREMARKABLE - Musculoskeletal Musculoskeletal: As Par HPI Objective - Vital Signs/Intake and Output Vital Signs (last 24 hours): Temp Pulse Resp BP Pulse Ox 98.1 F 85 20 142/76 98 09/11/16 08:00 09/11/16 08:00 09/11/16 08:00 09/11/16 08:00 09/11/16 08:00 Intake and Output: 09/11/16 09/11/16 06:59 18:59 Intake Total 150 Balance 150 - Medications Medications: Current Medications Acetaminophen (Tylenol 325mg Tab) 650 mg PO Q6 PRN PRN Reason: Pain, Mild (1-3) Last Admin: 08/24/16 23:02 Dose: 650 mg Bisacodyl (Dulcolax) 5 mg PO Q12 PRN PRN Reason: Constipation Last Admin: 08/18/16 14:47 Dose: 5 mg Enoxaparin Sodium (Lovenox) 40 mg SC DAILY [facility] Last Admin: 09/10/16 10:19 Dose: 40 mg Famotidine (Pepcid) 20 mg PO BID [facility] Last Admin: 09/10/16 18:39 Dose: 20 mg Lidocaine (Lidoderm) 1 ea TD DAILY [facility] Last Admin: 09/10/16 10:18 Dose: 1 ea Polyethylene Glycol (Miralax) 17 gm PO DAILY [facility] Last Admin: 08/21/16 09:12 Dose: Not Given Simethicone (Mylicon Chew Tab) 80 mg PO QID PRN PRN Reason: GI distress Last Admin: 09/06/16 11:42 Dose: 80 mg Tamsulosin HCl (Flomax) 0.8 mg PO DAILY [facility] Last Admin: 09/10/16 10:19 Dose: Not Given Tramadol HCl (Ultram) 50 mg PO TID PRN PRN Reason: Pain, moderate (4-7) Last Admin: 09/10/16 18:39 Dose: 50 mg - Labs Labs: 09/07/16 07:17 06/29/17 07:17 - Constitutional Appears: Well, No Acute Distress - Cardiovascular Exam Additional comments: calves soft NT neg homans - Extremities Exam Additional comments: Right knee: now non tender no joint effusion skin intact sensation intact - Neurological Exam Neurological Exam: Alert, Awake, Oriented x3 Neuro motor strength exam: Right Lower Extremity: 5 (5/5 ankle DF/PF, still ext lag to knee, quad strength improving minimally) - Psychiatric Exam Psychiatric exam: Normal Affect, Normal Mood - Skin Skin Exam: Dry, Intact, Normal Color, Warm Assessment and Plan (1) Acetabular protrusion Assessment & Plan: stable no ortho intervention cont PT/OT Status: Chronic (2) Fracture of tibia, proximal, right, closed Assessment & Plan: healed Status: Chronic (3) Right knee DJD Assessment & Plan: s/p injection, improved ambulation training goal is cane as necessary for intermediate placement d/w Dr. Pino, agrees with above Status: Acute
[2016-09-11] MEDS: Enoxaparin 40 mg Syringe SC SCH (09:32)
[2016-09-11] MEDS: Lidocaine 5% Patch TD SCH (09:32)
[2016-09-11 12:02] LABS: BASO % 0.5 % (0.0-2.0); EOS # 0.1 K/uL (0.0-0.7); EOS % 2.6 % (0.0-4.0); HEMOGLOBIN 12.2 g/dL (12.0-18.0); LYMPH # 1.4 K/uL (1.0-4.3); LYMPH % 28.1 % (20.0-40.0); MEAN CELL VOLUME 93.4 fL (80.0-94.0); MEAN CORPUSCULAR HEMOGLOBIN 31.7 pg (27.0-31.0); MEAN CORPUSCULAR HGB CONC 33.9 g/dL (33.0-37.0); MEAN PLATELET VOLUME 7.8 fL (7.2-11.7); MONO # 0.5 K/uL (0.0-0.8); MONO % 11.3 % (0.0-10.0); NEUT # 2.8 K/uL (1.8-7.0); NEUT % 57.5 % (50.0-75.0); NRBC % 0.1 % (0.0-2.0); RBC 3.85 Mil/uL (4.40-5.90); WHITE BLOOD COUNT 4.8 K/uL (4.8-10.8)
[2016-09-11 12:10] LABS: ALBUMIN 3.5 g/dL (3.5-5.0)
[2016-09-11 12:13] LABS: AST/SGOT 15 U/L (17-59); BLOOD UREA NITROGEN 12 mg/dL (9-20); GFR AFRICAN-AMERICAN > 60; GFR NON-AFRICAN AMERICAN > 60
[2016-09-11 12:14] LABS: ALT/SGPT 13 U/L (21-72); CALCIUM 8.7 mg/dl (8.6-10.4); MAGNESIUM 1.9 mg/dL (1.6-2.3)
--- NOTE | 2016-09-11 13:22 | CP.PCM.PN ---
<Tiffanie Hoskins E - Last Filed: 09/11/16 20:23> Subjective - Date & Time of Evaluation Date of Evaluation: 09/11/16 Time of Evaluation: 10:10 - Subjective Subjective: Medicine Note (PGY1): Dr. Wiggins's service Patient was seen and examined at bedside. Patient states that he is doing well but continues to report right leg pain. Patient reports that he is ambulating on his own with his assisted devices. Patient denies chest pain, sob, abd pain, nausea, vomiting, diarrhea, fever or chills. Objective - Vital Signs/Intake and Output Vital Signs (last 24 hours): Temp Pulse Resp BP Pulse Ox 98.1 F 85 20 142/76 98 09/11/16 08:00 09/11/16 08:00 09/11/16 08:00 09/11/16 08:00 09/11/16 08:00 Intake and Output: 09/11/16 09/11/16 06:59 18:59 Intake Total 150 Balance 150 - Medications Medications: Current Medications Acetaminophen (Tylenol 325mg Tab) 650 mg PO Q6 PRN PRN Reason: Pain, Mild (1-3) Last Admin: 08/24/16 23:02 Dose: 650 mg Bisacodyl (Dulcolax) 5 mg PO Q12 PRN PRN Reason: Constipation Last Admin: 08/18/16 14:47 Dose: 5 mg Enoxaparin Sodium (Lovenox) 40 mg SC DAILY [facility] Last Admin: 09/11/16 09:32 Dose: 40 mg Famotidine (Pepcid) 20 mg PO BID [facility] Last Admin: 09/11/16 09:31 Dose: 20 mg Lidocaine (Lidoderm) 1 ea TD DAILY [facility] Last Admin: 09/11/16 09:32 Dose: 1 ea Polyethylene Glycol (Miralax) 17 gm PO DAILY [facility] Last Admin: 08/21/16 09:12 Dose: Not Given Simethicone (Mylicon Chew Tab) 80 mg PO QID PRN PRN Reason: GI distress Last Admin: 09/06/16 11:42 Dose: 80 mg Tamsulosin HCl (Flomax) 0.8 mg PO DAILY [facility] Last Admin: 09/11/16 09:31 Dose: 0.8 mg Tramadol HCl (Ultram) 50 mg PO TID PRN PRN Reason: Pain, moderate (4-7) Last Admin: 09/11/16 11:10 Dose: 50 mg - Labs Labs: 09/11/16 11:53 09/11/16 11:53 - Constitutional Appears: No Acute Distress - Head Exam Head Exam: NORMAL INSPECTION, NORMOCEPHALIC - Eye Exam Eye Exam: EOMI, Normal appearance - ENT Exam ENT Exam: Mucous Membranes Moist, Normal Exam - Respiratory Exam Respiratory Exam: Clear to Ausculation Bilateral, NORMAL BREATHING PATTERN - Cardiovascular Exam Cardiovascular Exam: REGULAR RHYTHM, +S1, +S2 - GI/Abdominal Exam GI & Abdominal Exam: Soft, Normal Bowel Sounds - Extremities Exam Extremities Exam: Tenderness - Neurological Exam Neurological Exam: Alert, Awake, Oriented x3 - Psychiatric Exam Psychiatric exam: Normal Affect, Normal Mood - Skin Skin Exam: Dry, Normal Color, Warm Assessment and Plan (1) Fracture of tibia, proximal, right, closed Assessment & Plan: Stable 09/10: per ortho, orthopedically stable; Physio- full weight bearing Continue physical therapy; goal is for use of cane per ortho. can be d/c to custodial when tolerating cane Patient can ambulate with support with a walker Patient is progressively weight bearing. No ortho intervention needed at this time. Ortho monitoring. Ortho saw patient 08/30 and recommended to continue PT/ OT. Ortho saw patient 09/01 and gave right knee steroid injection. Patient tolerated it well and felt relief. Tylenol 650 mg PO Q6 PRN mild pain, Ultram 50 mg PO TID PRN for moderate pain Daily physical therapy to maximize ambulation with cane unassisted. 08/21 studies noted below: Lower Extremity CT: osteopenia and degenerative change, no acute fracture or joint effusion Knee XRAY: initial questionable fracture ruled out by CT imaging. Pelvis XRAY stable acetabular protrusion. Refer to complete reports Status: Chronic (2) Gait instability Assessment & Plan: Improving 09/10: per ortho, orthopedically stable; Physio- full weight bearing 09/07: As per PT, patient feeling weak with headache and declines OOB for lunch. xrays right knee show resolved area of sclerosis at presumed stress fracture right lateral tibial plateau (MRI contraindicated due to metallic implant in patella) Pt continues to work with PT, encourage patient to ambulate Status: Acute (3) Constipation Assessment & Plan: Improving continue Miralax 17gm PO daily Patient reports to having bowel movements Status: Resolved (4) BPH (benign prostatic hyperplasia) Assessment & Plan: Flomax 0.8 mg PO daily Status: Chronic (5) Aneurysmal dilatation Assessment & Plan: Aneurysmal dilatation of ascending thoracic aorta; Currently 4.[address] imaging every 6 months Status: Chronic (6) Sacral decubitus ulcer Assessment & Plan: Out of bed into chair daily and continue to encourage ambulation Continue working with physical therapy Status: Chronic (7) Anemia Assessment & Plan: Hgb stable. Cont to monitor. Weekly Sunday labs Status: Resolved (8) History of UTI Assessment & Plan: Continue to monitor Most recent 06/22 Currently asymptomatic UA (+) gram positive Status: Chronic (9) Seborrheic dermatitis Assessment & Plan: Monitor for recurrence. Status: Resolved (10) Prophylactic measure Assessment & Plan: Labs weekly on Sunday Lovenox 40mg SC daily Pepcid 20mg PO BID Patient is homeless. Goal is to walk with cane so he can go to a custodial (will not qualify with a walker) Pt pending transfer, awaiting placement PT: home w services and knee brace; currently working with physical therapy with single point cane Patient is encouraged to leave bed curtains open to prevent being closed off from surroundings. Discussed with nursing team as well. Nursing ordered placed to have patient sit outside of nurse's station. Status: Acute <Jose Wiggins - Last Filed: 09/12/16 10:26> Objective - Vital Signs/Intake and Output Vital Signs (last 24 hours): Temp Pulse Resp BP Pulse Ox 98.2 F 74 20 107/60 96 09/11/16 23:16 09/11/16 23:16 09/11/16 23:16 09/11/16 23:16 09/11/16 23:16 Intake and Output: 09/12/16 09/12/16 06:59 18:59 Intake Total 250 Balance 250 - Medications Medications: Current Medications Acetaminophen (Tylenol 325mg Tab) 650 mg PO Q6 PRN PRN Reason: Pain, Mild (1-3) Last Admin: 08/24/16 23:02 Dose: 650 mg Bisacodyl (Dulcolax) 5 mg PO Q12 PRN PRN Reason: Constipation Last Admin: 08/18/16 14:47 Dose: 5 mg Enoxaparin Sodium (Lovenox) 40 mg SC DAILY [facility] Last Admin: 09/12/16 09:13 Dose: 40 mg Famotidine (Pepcid) 20 mg PO BID [facility] Last Admin: 09/12/16 09:13 Dose: 20 mg Lidocaine (Lidoderm) 1 ea TD DAILY [facility] Last Admin: 09/12/16 09:13 Dose: 1 ea Polyethylene Glycol (Miralax) 17 gm PO DAILY [facility] Last Admin: 08/21/16 09:12 Dose: Not Given Simethicone (Mylicon Chew Tab) 80 mg PO QID PRN PRN Reason: GI distress Last Admin: 09/06/16 11:42 Dose: 80 mg Tamsulosin HCl (Flomax) 0.8 mg PO DAILY [facility] Last Admin: 09/12/16 09:13 Dose: Not Given Tramadol HCl (Ultram) 50 mg PO TID PRN PRN Reason: Pain, moderate (4-7) Last Admin: 09/12/16 09:14 Dose: 50 mg - Labs Labs: 09/11/16 11:53 09/11/16 11:53 Attending/Attestation - Attestation I have personally seen and examined this patient.: Yes I have fully participated in the care of the patient.: Yes I have reviewed all pertinent clinical information, including history, physical exam and plan: Yes Notes (Text): 09/12/16 10:25 Patient was seen and examined at bedside with the resident Continue current medical management Encourage the patient to get out of bed and walk with the cane and walker I discussed the plan of care with the resident and I agree with the patient's renal and assessment/plan by the resident.
--- NOTE | 2016-09-12 00:33 | CP.PCM.PN ---
<Josue Esquivela - Last Filed: 09/12/16 00:31> Subjective - Date & Time of Evaluation Date of Evaluation: 09/12/16 Time of Evaluation: 00:31 - Subjective Subjective: Medicine Note For Dr. Wiggins, Patient was seen and examined at bedside. Resting comfortably in bed. No acute complaints. Denied fever, chills, chest pain, SOB, abdominal pain, n/v/d/c, or urinary symptoms. Objective - Vital Signs/Intake and Output Vital Signs (last 24 hours): Temp Pulse Resp BP Pulse Ox 98.2 F 74 20 107/60 96 09/11/16 23:16 09/11/16 23:16 09/11/16 23:16 09/11/16 23:16 09/11/16 23:16 Intake and Output: 09/11/16 09/12/16 18:59 06:59 Intake Total 250 Balance 250 - Medications Medications: Current Medications Acetaminophen (Tylenol 325mg Tab) 650 mg PO Q6 PRN PRN Reason: Pain, Mild (1-3) Last Admin: 08/24/16 23:02 Dose: 650 mg Bisacodyl (Dulcolax) 5 mg PO Q12 PRN PRN Reason: Constipation Last Admin: 08/18/16 14:47 Dose: 5 mg Enoxaparin Sodium (Lovenox) 40 mg SC DAILY [facility] Last Admin: 09/11/16 09:32 Dose: 40 mg Famotidine (Pepcid) 20 mg PO BID [facility] Last Admin: 09/11/16 17:42 Dose: 20 mg Lidocaine (Lidoderm) 1 ea TD DAILY [facility] Last Admin: 09/11/16 09:32 Dose: 1 ea Polyethylene Glycol (Miralax) 17 gm PO DAILY [facility] Last Admin: 08/21/16 09:12 Dose: Not Given Simethicone (Mylicon Chew Tab) 80 mg PO QID PRN PRN Reason: GI distress Last Admin: 09/06/16 11:42 Dose: 80 mg Tamsulosin HCl (Flomax) 0.8 mg PO DAILY [facility] Last Admin: 09/11/16 09:31 Dose: 0.8 mg Tramadol HCl (Ultram) 50 mg PO TID PRN PRN Reason: Pain, moderate (4-7) Last Admin: 09/11/16 11:10 Dose: 50 mg - Labs Labs: 09/11/16 11:53 09/11/16 11:53 - Constitutional Appears: No Acute Distress - Head Exam Head Exam: NORMAL INSPECTION, NORMOCEPHALIC - ENT Exam ENT Exam: Mucous Membranes Moist - Respiratory Exam Respiratory Exam: Clear to Ausculation Bilateral, NORMAL BREATHING PATTERN - Cardiovascular Exam Cardiovascular Exam: REGULAR RHYTHM, RRR - GI/Abdominal Exam GI & Abdominal Exam: Soft, Normal Bowel Sounds. absent: Distended, Tenderness - Extremities Exam Extremities Exam: Normal Inspection. absent: Pedal Edema - Neurological Exam Neurological Exam: Alert, Awake, Oriented x3 - Skin Skin Exam: Dry, Intact, Normal Color, Warm Assessment and Plan - Assessment and Plan (Free Text) Plan: (1) Fracture of tibia, proximal, right, closed Assessment & Plan: Stable 09/10: per ortho, orthopedically stable; Physio- full weight bearing Continue physical therapy; goal is for use of cane per ortho. can be d/c to nursing home when tolerating cane Patient can ambulate with support with a walker Patient is progressively weight bearing. No ortho intervention needed at this time. Ortho monitoring. Ortho saw patient 08/30 and recommended to continue PT/ OT. Ortho saw patient 09/01 and gave right knee steroid injection. Patient tolerated it well and felt relief. Tylenol 650 mg PO Q6 PRN mild pain, Ultram 50 mg PO TID PRN for moderate pain Daily physical therapy to maximize ambulation with cane unassisted. 08/21 studies noted below: Lower Extremity CT: osteopenia and degenerative change, no acute fracture or joint effusion Knee XRAY: initial questionable fracture ruled out by CT imaging. Pelvis XRAY stable acetabular protrusion. Refer to complete reports Status: Chronic (2) Gait instability Assessment & Plan: Improving 09/10: per ortho, orthopedically stable; Physio- full weight bearing 09/07: As per PT, patient feeling weak with headache and declines OOB for lunch. xrays right knee show resolved area of sclerosis at presumed stress fracture right lateral tibial plateau (MRI contraindicated due to metallic implant in patella) Pt continues to work with PT, encourage patient to ambulate Status: Acute (3) Constipation Assessment & Plan: Improving continue Miralax 17gm PO daily Patient reports to having bowel movements Status: Resolved (4) BPH (benign prostatic hyperplasia) Assessment & Plan: Flomax 0.8 mg PO daily Status: Chronic (5) Aneurysmal dilatation Assessment & Plan: Aneurysmal dilatation of ascending thoracic aorta; Currently 4.[address] imaging every 6 months Status: Chronic (6) Sacral decubitus ulcer Assessment & Plan: Out of bed into chair daily and continue to encourage ambulation Continue working with physical therapy Status: Chronic (7) Anemia Assessment & Plan: Hgb stable. Cont to monitor. Weekly Sunday labs Status: Resolved (8) History of UTI Assessment & Plan: Continue to monitor Most recent 06/22 Currently asymptomatic UA (+) gram positive Status: Chronic (9) Seborrheic dermatitis Assessment & Plan: Monitor for recurrence. Status: Resolved (10) Prophylactic measure Assessment & Plan: Labs weekly on Sunday Lovenox 40mg SC daily Pepcid 20mg PO BID Patient is homeless. Goal is to walk with cane so he can go to a nursing home (will not qualify with a walker) Pt pending transfer, awaiting placement PT: home w services and knee brace; currently working with physical therapy with single point cane Patient is encouraged to leave bed curtains open to prevent being closed off from surroundings. Discussed with nursing team as well. Nursing ordered placed to have patient sit outside of nurse's station. Status: Acute <Jose Wiggins M - Last Filed: 09/13/16 15:48> Objective - Vital Signs/Intake and Output Vital Signs (last 24 hours): Temp Pulse Resp BP Pulse Ox 98.2 F 71 20 103/68 97 09/13/16 08:00 09/13/16 08:00 09/13/16 08:00 09/13/16 08:00 09/13/16 08:00 Intake and Output: 09/13/16 09/13/16 06:59 18:59 Intake Total 360 Balance 360 - Medications Medications: Current Medications Acetaminophen (Tylenol 325mg Tab) 650 mg PO Q6 PRN PRN Reason: Pain, Mild (1-3) Last Admin: 08/24/16 23:02 Dose: 650 mg Bisacodyl (Dulcolax) 5 mg PO Q12 PRN PRN Reason: Constipation Last Admin: 08/18/16 14:47 Dose: 5 mg Enoxaparin Sodium (Lovenox) 40 mg SC DAILY [facility] Last Admin: 09/13/16 09:50 Dose: 40 mg Famotidine (Pepcid) 20 mg PO BID [facility] Last Admin: 09/13/16 09:50 Dose: 20 mg Lidocaine (Lidoderm) 1 ea TD DAILY [facility] Last Admin: 09/13/16 09:51 Dose: 1 ea Polyethylene Glycol (Miralax) 17 gm PO DAILY [facility] Last Admin: 08/21/16 09:12 Dose: Not Given Simethicone (Mylicon Chew Tab) 80 mg PO QID PRN PRN Reason: GI distress Last Admin: 09/06/16 11:42 Dose: 80 mg Tamsulosin HCl (Flomax) 0.8 mg PO DAILY [facility] Last Admin: 09/13/16 09:11 Dose: Not Given Tramadol HCl (Ultram) 50 mg PO TID PRN PRN Reason: Pain, moderate (4-7) Last Admin: 09/12/16 23:12 Dose: 50 mg - Labs Labs: 09/13/16 12:23 09/13/16 12:23 Attending/Attestation - Attestation I have personally seen and examined this patient.: Yes I have fully participated in the care of the patient.: Yes I have reviewed all pertinent clinical information, including history, physical exam and plan: Yes Notes (Text): 09/13/16 15:48 Patient was seen and examined at bedside with the resident This is no change in clinical condition Continue current medical management Awaiting placement Agree with the assessment and plan by the resident.
[2016-09-12] MEDS: Enoxaparin 40 mg Syringe SC SCH (09:13)
[2016-09-12] MEDS: Lidocaine 5% Patch TD SCH (09:13)
[2016-09-13] MEDS: Enoxaparin 40 mg Syringe SC SCH (09:50)
[2016-09-13] MEDS: Lidocaine 5% Patch TD SCH (09:51)
[2016-09-13 12:39] LABS: BASO % 0.6 % (0.0-2.0); EOS # 0.1 K/uL (0.0-0.7); EOS % 2.7 % (0.0-4.0); HEMOGLOBIN 13.5 g/dL (12.0-18.0); LYMPH # 1.4 K/uL (1.0-4.3); LYMPH % 26.6 % (20.0-40.0); MEAN CELL VOLUME 94.9 fL (80.0-94.0); MEAN CORPUSCULAR HEMOGLOBIN 31.4 pg (27.0-31.0); MEAN CORPUSCULAR HGB CONC 33.1 g/dL (33.0-37.0); MEAN PLATELET VOLUME 8.9 fL (7.2-11.7); MONO # 0.5 K/uL (0.0-0.8); MONO % 9.8 % (0.0-10.0); NEUT # 3.3 K/uL (1.8-7.0); NEUT % 60.3 % (50.0-75.0); NRBC % 0.1 % (0.0-2.0); RBC 4.29 Mil/uL (4.40-5.90); RED CELL DISTRIBUTION WIDTH 15.2 % (11.5-14.5); WHITE BLOOD COUNT 5.4 K/uL (4.8-10.8)
[2016-09-13 12:49] LABS: ALBUMIN 3.9 g/dL (3.5-5.0)
[2016-09-13 12:52] LABS: AST/SGOT 18 U/L (17-59); BLOOD UREA NITROGEN 16 mg/dL (9-20); GFR AFRICAN-AMERICAN > 60; GFR NON-AFRICAN AMERICAN > 60
[2016-09-13 12:53] LABS: ALT/SGPT 8 U/L (21-72); CALCIUM 9.2 mg/dl (8.6-10.4); MAGNESIUM 2.1 mg/dL (1.6-2.3)
--- NOTE | 2016-09-13 15:07 | CP.PCM.PN ---
<Tiffanie Hoskins - Last Filed: 09/13/16 18:11> Subjective - Date & Time of Evaluation Date of Evaluation: 09/13/16 Time of Evaluation: 07:20 - Subjective Subjective: Medicine Note ( PGY1) : Dr. Wiggins's service Patient was seen and examined at bedside. Patient reports that he had no acute issues overnight. Patient reports that he is doing well. Patient is ambulating with cane or walker. Patient denies chest pain, sob, palpitations, nausea, vomiting, fever or chills but admits to urinary frequency. Objective - Vital Signs/Intake and Output Vital Signs (last 24 hours): Temp Pulse Resp BP Pulse Ox 98.2 F 71 20 103/68 97 09/13/16 08:00 09/13/16 08:00 09/13/16 08:00 09/13/16 08:00 09/13/16 08:00 - Medications Medications: Current Medications Acetaminophen (Tylenol 325mg Tab) 650 mg PO Q6 PRN PRN Reason: Pain, Mild (1-3) Last Admin: 08/24/16 23:02 Dose: 650 mg Bisacodyl (Dulcolax) 5 mg PO Q12 PRN PRN Reason: Constipation Last Admin: 08/18/16 14:47 Dose: 5 mg Enoxaparin Sodium (Lovenox) 40 mg SC DAILY [facility] Last Admin: 09/13/16 09:50 Dose: 40 mg Famotidine (Pepcid) 20 mg PO BID [facility] Last Admin: 09/13/16 09:50 Dose: 20 mg Lidocaine (Lidoderm) 1 ea TD DAILY [facility] Last Admin: 09/13/16 09:51 Dose: 1 ea Polyethylene Glycol (Miralax) 17 gm PO DAILY [facility] Last Admin: 08/21/16 09:12 Dose: Not Given Simethicone (Mylicon Chew Tab) 80 mg PO QID PRN PRN Reason: GI distress Last Admin: 09/06/16 11:42 Dose: 80 mg Tamsulosin HCl (Flomax) 0.8 mg PO DAILY [facility] Last Admin: 09/13/16 09:11 Dose: Not Given Tramadol HCl (Ultram) 50 mg PO TID PRN PRN Reason: Pain, moderate (4-7) Last Admin: 09/12/16 23:12 Dose: 50 mg - Labs Labs: 09/13/16 12:23 09/13/16 12:23 - Constitutional Appears: Well, No Acute Distress - Head Exam Head Exam: NORMAL INSPECTION, NORMOCEPHALIC - Eye Exam Eye Exam: EOMI, Normal appearance - ENT Exam ENT Exam: Mucous Membranes Moist, Normal Exam - Respiratory Exam Respiratory Exam: Clear to Ausculation Bilateral, NORMAL BREATHING PATTERN - Cardiovascular Exam Cardiovascular Exam: REGULAR RHYTHM, +S1, +S2 - GI/Abdominal Exam GI & Abdominal Exam: Soft, Normal Bowel Sounds - Extremities Exam Extremities Exam: Normal Capillary Refill, Normal Inspection - Neurological Exam Neurological Exam: Alert, Awake, Oriented x3 - Psychiatric Exam Psychiatric exam: Normal Affect, Normal Mood - Skin Skin Exam: Dry, Normal Color, Warm Assessment and Plan (1) Fracture of tibia, proximal, right, closed Assessment & Plan: Stable 09/10: per ortho, orthopedically stable; Physio- full weight bearing Continue physical therapy; goal is for use of cane per ortho. can be d/c to residential when tolerating cane Patient can ambulate with support with a walker Patient is progressively weight bearing. No ortho intervention needed at this time. Ortho monitoring. Ortho saw patient 08/30 and recommended to continue PT/ OT. Ortho saw patient 09/01 and gave right knee steroid injection. Patient tolerated it well and felt relief. Tylenol 650 mg PO Q6 PRN mild pain, Ultram 50 mg PO TID PRN for moderate pain Daily physical therapy to maximize ambulation with cane unassisted. 08/21 studies noted below: Lower Extremity CT: osteopenia and degenerative change, no acute fracture or joint effusion Knee XRAY: initial questionable fracture ruled out by CT imaging. Pelvis XRAY stable acetabular protrusion. Refer to complete reports Status: Chronic (2) Gait instability Assessment & Plan: Improving 09/10: per ortho, orthopedically stable; Physio- full weight bearing 09/07: As per PT, patient feeling weak with headache and declines OOB for lunch. xrays right knee show resolved area of sclerosis at presumed stress fracture right lateral tibial plateau (MRI contraindicated due to metallic implant in patella) Pt continues to work with PT, encourage patient to ambulate. Patient with cane or walker unassisted Status: Acute (3) Constipation Assessment & Plan: Resolved Patient reports to having formed bowel movements Status: Resolved (4) BPH (benign prostatic hyperplasia) Assessment & Plan: Flomax 0.8 mg PO daily Status: Chronic (5) Aneurysmal dilatation Assessment & Plan: Aneurysmal dilatation of ascending thoracic aorta; Currently 4.[address] imaging every 6 months Status: Chronic (6) Sacral decubitus ulcer Assessment & Plan: Out of bed into chair daily and continue to encourage ambulation Continue working with physical therapy Status: Chronic (7) Anemia Assessment & Plan: H/H is stable. Cont to monitor. Weekly Sunday labs Status: Resolved (8) History of UTI Assessment & Plan: Continue to monitor Most recent 06/22 UA (+) for gram Positive cocci Currently asymptomatic 09/13/16: Urinary Frequency * f/u UA Status: Chronic (9) Seborrheic dermatitis Assessment & Plan: Monitor for recurrence Status: Resolved (10) Prophylactic measure Assessment & Plan: Labs weekly on Sunday Lovenox 40mg SC daily Pepcid 20mg PO BID Patient is homeless. Goal is to walk with cane so he can go to a residential (will not qualify with a walker) Pt pending transfer, awaiting placement PT: home w services and knee brace; currently working with physical therapy with single point cane Patient is encouraged to leave bed curtains open to prevent being closed off from surroundings. Discussed with nursing team as well. Status: Acute <Jose Wiggins - Last Filed: 09/14/16 15:44> Objective - Vital Signs/Intake and Output Vital Signs (last 24 hours): Temp Pulse Resp BP Pulse Ox 97.1 F L 79 16 107/70 99 09/14/16 00:15 09/14/16 00:15 09/14/16 00:15 09/14/16 00:15 09/14/16 00:15 Intake and Output: 09/14/16 09/14/16 06:59 18:59 Intake Total 160 Balance 160 - Medications Medications: Current Medications Acetaminophen (Tylenol 325mg Tab) 650 mg PO Q6 PRN PRN Reason: Pain, Mild (1-3) Last Admin: 08/24/16 23:02 Dose: 650 mg Bisacodyl (Dulcolax) 5 mg PO Q12 PRN PRN Reason: Constipation Last Admin: 08/18/16 14:47 Dose: 5 mg Enoxaparin Sodium (Lovenox) 40 mg SC DAILY [facility] Last Admin: 09/14/16 10:45 Dose: 40 mg Famotidine (Pepcid) 20 mg PO BID [facility] Last Admin: 09/14/16 10:45 Dose: 20 mg Lidocaine (Lidoderm) 1 ea TD DAILY [facility] Last Admin: 09/14/16 10:45 Dose: 1 ea Polyethylene Glycol (Miralax) 17 gm PO DAILY [facility] Last Admin: 08/21/16 09:12 Dose: Not Given Simethicone (Mylicon Chew Tab) 80 mg PO QID PRN PRN Reason: GI distress Last Admin: 09/06/16 11:42 Dose: 80 mg Tamsulosin HCl (Flomax) 0.8 mg PO DAILY [facility] Last Admin: 09/14/16 10:44 Dose: Not Given Tramadol HCl (Ultram) 50 mg PO TID PRN PRN Reason: Pain, moderate (4-7) Last Admin: 09/14/16 10:44 Dose: 50 mg - Labs Labs: 09/13/16 12:23 09/13/16 12:23 Attending/Attestation - Attestation I have personally seen and examined this patient.: Yes I have fully participated in the care of the patient.: Yes I have reviewed all pertinent clinical information, including history, physical exam and plan: Yes Notes (Text): 09/14/16 13:31 Patient was seen and examined at bedside Patient to has no new complaints Continue current medical management Discussed the plan of care with the resident. I agree with the assessment and plan by the resident.
[2016-09-13 22:16] LABS: URINE BILIRUBIN NEGATIVE (NEGATIVE); URINE BLOOD NEGATIVE (NEGATIVE); URINE CLARITY Clear (Clear); URINE COLOR Yellow (YELLOW); URINE GLUCOSE (UA) NORMAL (Normal); URINE LEUKOCYTE ESTERASE NEG Leu/uL (Negative); URINE NITRATE NEGATIVE (NEGATIVE); URINE PROTEIN NEGATIVE (NEGATIVE); URINE UROBILINOGEN NORMAL mg/dL (0.2-1.0)
--- NOTE | 2016-09-14 06:33 | CP.PCM.PN ---
<GatoCarlyrodríguez Pacheco - Last Filed: 09/14/16 18:04> Subjective - Date & Time of Evaluation Date of Evaluation: 09/14/16 Time of Evaluation: 07:30 - Subjective Subjective: Medicine Note (PGY1) : Dr. Wiggins's Patient Patient was seen and examined at bedside. Patient had no acute changes overnight. Patient reports that he is doing well and has no new complaints. Patient denies chest pain, shortness of breath, fever, chills, abdominal pain. patient is tolerating diet well, having bowel movements and ambulating with cane or walker, while also working with physical therapy. Objective - Vital Signs/Intake and Output Vital Signs (last 24 hours): Temp Pulse Resp BP Pulse Ox 97.1 F L 79 16 107/70 99 09/14/16 00:15 09/14/16 00:15 09/14/16 00:15 09/14/16 00:15 09/14/16 00:15 Intake and Output: 09/13/16 09/14/16 18:59 06:59 Intake Total 360 160 Balance 360 160 - Medications Medications: Current Medications Acetaminophen (Tylenol 325mg Tab) 650 mg PO Q6 PRN PRN Reason: Pain, Mild (1-3) Last Admin: 08/24/16 23:02 Dose: 650 mg Bisacodyl (Dulcolax) 5 mg PO Q12 PRN PRN Reason: Constipation Last Admin: 08/18/16 14:47 Dose: 5 mg Enoxaparin Sodium (Lovenox) 40 mg SC DAILY [facility] Last Admin: 09/13/16 09:50 Dose: 40 mg Famotidine (Pepcid) 20 mg PO BID [facility] Last Admin: 09/13/16 17:27 Dose: 20 mg Lidocaine (Lidoderm) 1 ea TD DAILY [facility] Last Admin: 09/13/16 09:51 Dose: 1 ea Polyethylene Glycol (Miralax) 17 gm PO DAILY [facility] Last Admin: 08/21/16 09:12 Dose: Not Given Simethicone (Mylicon Chew Tab) 80 mg PO QID PRN PRN Reason: GI distress Last Admin: 09/06/16 11:42 Dose: 80 mg Tamsulosin HCl (Flomax) 0.8 mg PO DAILY [facility] Last Admin: 09/13/16 09:11 Dose: Not Given Tramadol HCl (Ultram) 50 mg PO TID PRN PRN Reason: Pain, moderate (4-7) Last Admin: 09/13/16 21:09 Dose: 50 mg - Labs Labs: 09/13/16 12:23 09/13/16 12:23 - Constitutional Appears: Well, No Acute Distress - Head Exam Head Exam: NORMAL INSPECTION, NORMOCEPHALIC - Eye Exam Eye Exam: EOMI, Normal appearance - ENT Exam ENT Exam: Mucous Membranes Moist, Normal Exam - Respiratory Exam Respiratory Exam: Clear to Ausculation Bilateral, NORMAL BREATHING PATTERN - Cardiovascular Exam Cardiovascular Exam: REGULAR RHYTHM, +S1, +S2 - GI/Abdominal Exam GI & Abdominal Exam: Soft, Normal Bowel Sounds - Extremities Exam Extremities Exam: Normal Capillary Refill, Normal Inspection - Neurological Exam Neurological Exam: Alert, Awake, Oriented x3 - Psychiatric Exam Psychiatric exam: Normal Affect, Normal Mood Assessment and Plan (1) Fracture of tibia, proximal, right, closed Assessment & Plan: Stable 09/10: per ortho, orthopedically stable; Physio- full weight bearing Continue physical therapy; goal is for use of cane per ortho. [facility] tolerating cane Patient can ambulate with support with a walker Patient is progressively weight bearing. No ortho intervention needed at this time. Ortho monitoring. Ortho saw patient 08/30 and recommended to continue PT/ OT. Ortho saw patient 09/01 and gave right knee steroid injection. Patient tolerated it well and felt relief. Tylenol 650 mg PO Q6 PRN mild pain, Ultram 50 mg PO TID PRN for moderate pain Daily physical therapy to maximize ambulation with cane unassisted. 08/21 studies noted below: Lower Extremity CT: osteopenia and degenerative change, no acute fracture or joint effusion Knee XRAY: initial questionable fracture ruled out by CT imaging. Pelvis XRAY stable acetabular protrusion. Refer to complete reports Status: Chronic (2) Gait instability Assessment & Plan: Improving 09/10: per ortho, orthopedically stable; Physio- full weight bearing 09/07: As per PT, patient feeling weak with headache and declines OOB for lunch. xrays right knee show resolved area of sclerosis at presumed stress fracture right lateral tibial plateau (MRI contraindicated due to metallic implant in patella) Pt continues to work with PT, encourage patient to ambulate. Patient with cane or walker unassisted Status: Acute (3) Constipation Assessment & Plan: Resolved Patient reports to having formed bowel movements Status: Resolved (4) BPH (benign prostatic hyperplasia) Assessment & Plan: Flomax 0.8 mg PO daily Status: Chronic (5) Aneurysmal dilatation Assessment & Plan: Aneurysmal dilatation of ascending thoracic aorta; Currently 4.[address] imaging every 6 months Status: Chronic (6) Sacral decubitus ulcer Assessment & Plan: Out of bed into chair daily and continue to encourage ambulation Continue working with physical therapy Status: Chronic (7) Anemia Assessment & Plan: H/H is stable. Cont to monitor. Weekly Sunday labs Status: Resolved (8) History of UTI Assessment & Plan: Continue to monitor Most recent 06/22 UA (+) for gram Positive cocci Currently asymptomatic 09/13/16: Urinary Frequency * f/u UA Status: Chronic (9) Seborrheic dermatitis Assessment & Plan: Resolved Monitor for recurrence Status: Resolved (10) Prophylactic measure Assessment & Plan: Labs weekly on Sunday Lovenox 40mg SC daily Pepcid 20mg PO BID Patient is homeless. Goal is to walk with cane so he can go to a [facility] (will not qualify with a walker) Pt pending transfer, awaiting placement PT: home w services and knee brace; currently working with physical therapy with single point cane Patient is encouraged to leave bed curtains open to prevent being closed off from surroundings. Discussed with nursing team as well. Status: Acute <Sangeeta Wigginsn M - Last Filed: 09/15/16 08:49> Objective - Vital Signs/Intake and Output Vital Signs (last 24 hours): Temp Pulse Resp BP Pulse Ox 98.1 F 76 20 127/81 100 09/15/16 00:00 09/15/16 00:00 09/15/16 00:00 09/15/16 00:00 09/15/16 00:00 Intake and Output: 09/15/16 09/15/16 06:59 18:59 Intake Total 240 Balance 240 - Medications Medications: Current Medications Acetaminophen (Tylenol 325mg Tab) 650 mg PO Q6 PRN PRN Reason: Pain, Mild (1-3) Last Admin: 08/24/16 23:02 Dose: 650 mg Bisacodyl (Dulcolax) 5 mg PO Q12 PRN PRN Reason: Constipation Last Admin: 08/18/16 14:47 Dose: 5 mg Enoxaparin Sodium (Lovenox) 40 mg SC DAILY [facility] Last Admin: 09/14/16 10:45 Dose: 40 mg Famotidine (Pepcid) 20 mg PO BID [facility] Last Admin: 09/14/16 18:30 Dose: 20 mg Lidocaine (Lidoderm) 1 ea TD DAILY [facility] Last Admin: 09/14/16 10:45 Dose: 1 ea Polyethylene Glycol (Miralax) 17 gm PO DAILY [facility] Last Admin: 08/21/16 09:12 Dose: Not Given Simethicone (Mylicon Chew Tab) 80 mg PO QID PRN PRN Reason: GI distress Last Admin: 09/06/16 11:42 Dose: 80 mg Tamsulosin HCl (Flomax) 0.8 mg PO DAILY [facility] Last Admin: 09/14/16 10:44 Dose: Not Given Tramadol HCl (Ultram) 50 mg PO TID PRN PRN Reason: Pain, moderate (4-7) Last Admin: 09/15/16 00:00 Dose: 50 mg - Labs Labs: 09/13/16 12:23 09/13/16 12:23 Attending/Attestation - Attestation I have personally seen and examined this patient.: Yes I have fully participated in the care of the patient.: Yes I have reviewed all pertinent clinical information, including history, physical exam and plan: Yes Notes (Text): 09/15/16 08:49 Patient was seen and examined at bedside with the resident Complains of right leg pain Complains of for frequent urination Urinalysis completed but does not show any infection Continue current medical management neck and discussed the plan of care with the resident. Assessment plan by the resident.
[2016-09-14] MEDS: Enoxaparin 40 mg Syringe SC SCH (10:45)
[2016-09-14] MEDS: Lidocaine 5% Patch TD SCH (10:45)
[2016-09-14 23:08] LABS: SQUAMOUS EPITHIAL < 1 /hpf (0-5); URINE BILIRUBIN NEGATIVE (NEGATIVE); URINE BLOOD NEGATIVE (NEGATIVE); URINE CLARITY Clear (Clear); URINE COLOR Yellow (YELLOW); URINE GLUCOSE (UA) NORMAL (Normal); URINE LEUKOCYTE ESTERASE NEG Leu/uL (Negative); URINE NITRATE NEGATIVE (NEGATIVE); URINE PROTEIN NEGATIVE (NEGATIVE); URINE UROBILINOGEN NORMAL mg/dL (0.2-1.0)
[2016-09-14 23:09] LABS: URINE BACTERIA RARE (<OCC)
[2016-09-15] MEDS: Lidocaine 5% Patch TD SCH (10:23)
[2016-09-15] MEDS: Enoxaparin 40 mg Syringe SC SCH (10:23)
--- NOTE | 2016-09-15 10:26 | CP.PCM.PN ---
<Libertad Paredes - Last Filed: 09/15/16 11:04> Subjective - Date & Time of Evaluation Date of Evaluation: 09/15/16 Time of Evaluation: 10:24 - Subjective Subjective: Hospitalists progress note by PGY2 Pt is seen and examined at bedside. No acute events overnight. Patient continues ot complain of right sided pain. He also complains of frequent urination. He denies having any dysuria. Patient denies having any abdominal pain but he does complains of a left sided inguinal hernia. Patient denies having any CP, SOB, N/V/D/C. Patient is tolerating diet and having regular BMs. 12 point ROS are negative except for the above mentioned. Objective - Vital Signs/Intake and Output Vital Signs (last 24 hours): Temp Pulse Resp BP Pulse Ox 97.8 F 83 20 137/83 99 09/15/16 09:26 09/15/16 09:26 09/15/16 09:26 09/15/16 09:26 09/15/16 09:26 Intake and Output: 09/15/16 09/15/16 06:59 18:59 Intake Total 240 Balance 240 - Medications Medications: Current Medications Acetaminophen (Tylenol 325mg Tab) 650 mg PO Q6 PRN PRN Reason: Pain, Mild (1-3) Last Admin: 08/24/16 23:02 Dose: 650 mg Bisacodyl (Dulcolax) 5 mg PO Q12 PRN PRN Reason: Constipation Last Admin: 08/18/16 14:47 Dose: 5 mg Enoxaparin Sodium (Lovenox) 40 mg SC DAILY [facility] Last Admin: 09/14/16 10:45 Dose: 40 mg Famotidine (Pepcid) 20 mg PO BID [facility] Last Admin: 09/14/16 18:30 Dose: 20 mg Lidocaine (Lidoderm) 1 ea TD DAILY [facility] Last Admin: 09/14/16 10:45 Dose: 1 ea Polyethylene Glycol (Miralax) 17 gm PO DAILY [facility] Last Admin: 08/21/16 09:12 Dose: Not Given Simethicone (Mylicon Chew Tab) 80 mg PO QID PRN PRN Reason: GI distress Last Admin: 09/06/16 11:42 Dose: 80 mg Tamsulosin HCl (Flomax) 0.8 mg PO DAILY [facility] Last Admin: 09/14/16 10:44 Dose: Not Given Tramadol HCl (Ultram) 50 mg PO TID PRN PRN Reason: Pain, moderate (4-7) Last Admin: 09/15/16 00:00 Dose: 50 mg - Labs Labs: 09/13/16 12:23 09/13/16 12:23 - Constitutional Appears: Non-toxic, No Acute Distress - Head Exam Head Exam: ATRAUMATIC - Eye Exam Eye Exam: EOMI - ENT Exam ENT Exam: Mucous Membranes Moist - Respiratory Exam Respiratory Exam: Clear to Ausculation Bilateral, NORMAL BREATHING PATTERN. absent: Accessory Muscle Use, Rales, Rhonchi, Wheezes, Respiratory Distress - Cardiovascular Exam Cardiovascular Exam: REGULAR RHYTHM, +S1, +S2. absent: Gallop, Rubs, Murmur - GI/Abdominal Exam GI & Abdominal Exam: Soft, Normal Bowel Sounds. absent: Distended, Firm, Guarding, Rigid, Tenderness, Organomegaly Additional comments: left sided inguinal hernia noted that is reducible and nontender - Extremities Exam Extremities Exam: absent: Pedal Edema, Tenderness - Neurological Exam Neurological Exam: Alert, Awake, Oriented x3 - Psychiatric Exam Psychiatric exam: Normal Affect, Normal Mood - Skin Skin Exam: Dry, Intact, Normal Color, Warm Assessment and Plan - Assessment and Plan (Free Text) Assessment: (1) Fracture of tibia, proximal, right, closed Assessment & Plan: Stable PT recommendations from 09/14: " cleared for supervised hallway ambulation with [facility] Ortho is consulted and recommend physical therapy, orthopedically stable Continue physical therapy; goal is for use of cane per ortho. can be [facility]c to [facility] when tolerating cane Patient can ambulate with support with a walker Pain management: Tylenol 650 mg PO Q6 PRN mild pain, Ultram 50 mg PO TID PRN for moderate pain 08/21 studies noted below: Lower Extremity CT: osteopenia and degenerative change, no acute fracture or joint effusion Knee XRAY: initial questionable fracture ruled out by CT imaging. Pelvis XRAY stable acetabular protrusion. Refer to complete reports Status: Chronic (2) Gait instability Assessment & Plan: Improving per ortho, orthopedically stable; Physio- full weight bearing xrays right knee show resolved area of sclerosis at presumed stress fracture right lateral tibial plateau (MRI contraindicated due to metallic implant in patella) Pt continues to work with PT, encourage patient to ambulate. Patient with cane or walker unassisted Status: Acute (3) Constipation Assessment & Plan: Resolved (4) BPH (benign prostatic hyperplasia) Assessment & Plan: Flomax 0.8 mg PO daily (5) Aneurysmal dilatation Assessment & Plan: Aneurysmal dilatation of ascending thoracic aorta; Currently 4.[address] imaging every 6 months (6) Sacral decubitus ulcer Assessment & Plan: Out of bed into chair daily and continue to encourage ambulation Continue working with physical therapy Patient started on multivitamin, zinc sulfate and vitamin C daily for better wound healing (7) Anemia Assessment & Plan: H/H is stable. Cont to monitor. Weekly Sunday labs (8) History of UTI Assessment & Plan: UA on 09/14 negative for infection Continue to monitor Most recent 06/22 UA (+) for gram Positive cocci Currently asymptomatic (9) Seborrheic dermatitis Assessment & Plan: Resolved Monitor for recurrence (10) Prophylactic measure Assessment & Plan: Labs weekly on Sunday Lovenox 40mg SC daily Pepcid 20mg PO BID Patient is homeless. Goal is to walk with cane so he can go to a [facility] (will not qualify with a walker) Pt pending transfer, awaiting placement PT: home w services and knee brace; currently working with physical therapy with single point cane Patient is encouraged to leave bed curtains open to prevent being closed off from surroundings. Discussed with nursing team as well. Case discussed with attending, Dr. Wiggins <Jose Wiggins - Last Filed: 09/15/16 17:52> Objective - Vital Signs/Intake and Output Vital Signs (last 24 hours): Temp Pulse Resp BP Pulse Ox 98.3 F 83 20 100/71 99 09/15/16 15:00 09/15/16 15:07 09/15/16 15:00 09/15/16 15:00 09/15/16 15:07 Intake and Output: 09/15/16 09/15/16 06:59 18:59 Intake Total 240 Balance 240 - Medications Medications: Current Medications Acetaminophen (Tylenol 325mg Tab) 650 mg PO Q6 PRN PRN Reason: Pain, Mild (1-3) Last Admin: 08/24/16 23:02 Dose: 650 mg Ascorbic Acid (Vitamin C 250 Mg Tab) 250 mg PO DAILY [facility] Bisacodyl (Dulcolax) 5 mg PO Q12 PRN PRN Reason: Constipation Last Admin: 08/18/16 14:47 Dose: 5 mg Enoxaparin Sodium (Lovenox) 40 mg SC DAILY [facility] Last Admin: 09/15/16 10:23 Dose: 40 mg Famotidine (Pepcid) 20 mg PO BID [facility] Last Admin: 09/15/16 17:14 Dose: 20 mg Multivitamins/Vitamin C (Multi-Delyn Liquid) 5 ml PO DAILY [facility] Polyethylene Glycol (Miralax) 17 gm PO DAILY [facility] Last Admin: 08/21/16 09:12 Dose: Not Given Simethicone (Mylicon Chew Tab) 80 mg PO QID PRN PRN Reason: GI distress Last Admin: 09/06/16 11:42 Dose: 80 mg Tamsulosin HCl (Flomax) 0.8 mg PO DAILY [facility] Last Admin: 09/15/16 10:25 Dose: Not Given Tramadol HCl (Ultram) 50 mg PO TID PRN PRN Reason: Pain, moderate (4-7) Last Admin: 09/15/16 00:00 Dose: 50 mg Zinc Sulfate (Zinc Sulfate 220 Mg Cap) 220 mg PO DAILY [facility] - Labs Labs: 09/13/16 12:23 09/13/16 12:23 Attending/Attestation - Attestation I have personally seen and examined this patient.: Yes I have fully participated in the care of the patient.: Yes I have reviewed all pertinent clinical information, including history, physical exam and plan: Yes Notes (Text): 09/15/16 17:52 Patient was seen and examined at bedside with the resident Patient has no new complaints Continue current medical management and continue physical therapy daily Awaiting placement Discussed the plan of care with the resident and agree with the assessment plan by the resident.
--- NOTE | 2016-09-16 00:05 | CP.PCM.PN ---
<Meli Rodarte - Last Filed: 09/16/16 00:03> Subjective - Date & Time of Evaluation Date of Evaluation: 09/16/16 Time of Evaluation: 00:03 - Subjective Subjective: Medicine Progress Note: Dr. Jean Service Patient was seen and examined at bedside in no acute distress. Patient reports having urinary frequency, but denies having dysuria. Patient also reports having abdominal pain which he has had for a while now. He states he is eating well and has had three bowel movements yesterday. Patient denies having chest pain, palpitations, headaches, dizziness, diarrhea, constipation, nausea and vomiting. Objective - Vital Signs/Intake and Output Vital Signs (last 24 hours): Temp Pulse Resp BP Pulse Ox 98.3 F 83 20 100/71 99 09/15/16 15:00 09/15/16 15:07 09/15/16 15:00 09/15/16 15:00 09/15/16 15:07 Intake and Output: 09/15/16 09/16/16 18:59 06:59 Intake Total 490 Balance 490 - Medications Medications: Current Medications Acetaminophen (Tylenol 325mg Tab) 650 mg PO Q6 PRN PRN Reason: Pain, Mild (1-3) Last Admin: 08/24/16 23:02 Dose: 650 mg Ascorbic Acid (Vitamin C 250 Mg Tab) 250 mg PO DAILY [facility] Bisacodyl (Dulcolax) 5 mg PO Q12 PRN PRN Reason: Constipation Last Admin: 08/18/16 14:47 Dose: 5 mg Enoxaparin Sodium (Lovenox) 40 mg SC DAILY [facility] Last Admin: 09/15/16 10:23 Dose: 40 mg Famotidine (Pepcid) 20 mg PO BID [facility] Last Admin: 09/15/16 17:14 Dose: 20 mg Multivitamins/Vitamin C (Multi-Delyn Liquid) 5 ml PO DAILY [facility] Polyethylene Glycol (Miralax) 17 gm PO DAILY [facility] Last Admin: 08/21/16 09:12 Dose: Not Given Simethicone (Mylicon Chew Tab) 80 mg PO QID PRN PRN Reason: GI distress Last Admin: 09/06/16 11:42 Dose: 80 mg Tamsulosin HCl (Flomax) 0.8 mg PO DAILY [facility] Last Admin: 09/15/16 10:25 Dose: Not Given Tramadol HCl (Ultram) 50 mg PO TID PRN PRN Reason: Pain, moderate (4-7) Last Admin: 09/15/16 00:00 Dose: 50 mg Zinc Sulfate (Zinc Sulfate 220 Mg Cap) 220 mg PO DAILY [facility] - Labs Labs: 09/13/16 12:23 09/13/16 12:23 - Constitutional Appears: No Acute Distress - Head Exam Head Exam: NORMAL INSPECTION, NORMOCEPHALIC - Eye Exam Eye Exam: EOMI, Normal appearance - ENT Exam ENT Exam: Mucous Membranes Moist - Neck Exam Neck Exam: Normal Inspection - Respiratory Exam Respiratory Exam: Decreased Breath Sounds, Clear to Ausculation Bilateral, NORMAL BREATHING PATTERN - Cardiovascular Exam Cardiovascular Exam: REGULAR RHYTHM, +S1, +S2. absent: Murmur - GI/Abdominal Exam GI & Abdominal Exam: Soft, Tenderness (with palpation of LUQ and LLQ), Normal Bowel Sounds - Extremities Exam Extremities Exam: Normal Inspection. absent: Calf Tenderness, Pedal Edema - Back Exam Back Exam: CVA tenderness (L) - Neurological Exam Neurological Exam: Alert, Awake, Oriented x3 - Psychiatric Exam Psychiatric exam: Normal Affect, Normal Mood - Skin Skin Exam: Dry, Intact, Normal Color, Warm Assessment and Plan (1) Fracture of tibia, proximal, right, closed Assessment & Plan: PT recommendations from 09/14: " cleared for supervised hallway ambulation with [facility] Ortho is consulted and recommend physical therapy, orthopedically stable Continue physical therapy; goal is for use of cane per ortho. Can be d/c to residential when tolerating cane Patient can ambulate with support with a walker Pain management: Tylenol 650 mg PO Q6 PRN mild pain, Ultram 50 mg PO TID PRN for moderate pain 08/21 studies noted below: Lower Extremity CT: osteopenia and degenerative change, no acute fracture or joint effusion Knee XRAY: initial questionable fracture ruled out by CT imaging. Pelvis XRAY stable acetabular protrusion. Refer to complete reports Status: Chronic (2) Gait instability Assessment & Plan: Improving Per Ortho, orthopedically stable; Physio- full weight bearing Xrays right knee show resolved area of sclerosis at presumed stress fracture right lateral tibial plateau (MRI contraindicated due to metallic implant in patella) Patient continues Status: Acute (3) Aneurysmal dilatation Assessment & Plan: Aneurysmal dilatation of ascending thoracic aorta; Currently 4.[address] imaging every 6 months Status: Chronic (4) History of UTI Assessment & Plan: UA on 09/14 negative for infection Continue to monitor Most recent 06/22 UA (+) for gram Positive cocci Currently asymptomatic Status: Chronic (5) Sacral decubitus ulcer Assessment & Plan: Out of bed into chair daily and continue to encourage ambulation Continue working with physical therapy Patient started on multivitamin, zinc sulfate and vitamin C daily for better wound healing Status: Chronic (6) Anemia Assessment & Plan: H/H is stable. Continue to monitor. Weekly Sunday labs Status: Resolved (7) Constipation Assessment & Plan: Discontinued Dulcolax 08/18/16 Resolved Status: Resolved (8) Seborrheic dermatitis Assessment & Plan: Resolved Monitor for recurrence Status: Resolved (9) BPH (benign prostatic hyperplasia) Assessment & Plan: Flomax 0.8 mg PO daily Status: Chronic (10) Prophylactic measure Assessment & Plan: Labs weekly on Sunday Lovenox 40mg SC daily Pepcid 20mg PO BID Patient is homeless. Goal is to walk with cane so he can go to a residential (will not qualify with a walker) Patient pending transfer, awaiting placement PT: home w services and knee brace; currently working with physical therapy with single point cane Patient is encouraged to leave bed curtains open to prevent being closed off from surroundings. Discussed with nursing team as well. Status: Acute <RosalieJose M - Last Filed: 09/16/16 18:14> Objective - Vital Signs/Intake and Output Vital Signs (last 24 hours): Temp Pulse Resp BP Pulse Ox 98.1 F 74 20 112/74 97 09/16/16 16:00 09/16/16 16:00 09/16/16 16:00 09/16/16 16:00 09/16/16 16:00 Intake and Output: 09/16/16 09/16/16 06:59 18:59 Intake Total 200 Output Total 450 Balance -250 - Medications Medications: Current Medications Acetaminophen (Tylenol 325mg Tab) 650 mg PO Q6 PRN PRN Reason: Pain, Mild (1-3) Last Admin: 08/24/16 23:02 Dose: 650 mg Ascorbic Acid (Vitamin C 250 Mg Tab) 250 mg PO DAILY [facility] Last Admin: 09/16/16 09:36 Dose: 250 mg Bisacodyl (Dulcolax) 5 mg PO Q12 PRN PRN Reason: Constipation Last Admin: 08/18/16 14:47 Dose: 5 mg Enoxaparin Sodium (Lovenox) 40 mg SC DAILY [facility] Last Admin: 09/16/16 09:34 Dose: 40 mg Famotidine (Pepcid) 20 mg PO BID [facility] Last Admin: 09/16/16 18:10 Dose: 20 mg Multivitamins/Vitamin C (Multi-Delyn Liquid) 5 ml PO DAILY [facility] Last Admin: 09/16/16 09:39 Dose: 5 ml Polyethylene Glycol (Miralax) 17 gm PO DAILY [facility] Last Admin: 08/21/16 09:12 Dose: Not Given Simethicone (Mylicon Chew Tab) 80 mg PO QID PRN PRN Reason: GI distress Last Admin: 09/06/16 11:42 Dose: 80 mg Tamsulosin HCl (Flomax) 0.8 mg PO DAILY [facility] Last Admin: 09/16/16 09:34 Dose: 0.8 mg Tramadol HCl (Ultram) 50 mg PO TID PRN PRN Reason: Pain, moderate (4-7) Last Admin: 09/15/16 00:00 Dose: 50 mg Zinc Sulfate (Zinc Sulfate 220 Mg Cap) 220 mg PO DAILY [facility] Last Admin: 09/16/16 09:35 Dose: 220 mg - Labs Labs: 09/13/16 12:23 09/13/16 12:23 Attending/Attestation - Attestation I have personally seen and examined this patient.: Yes I have fully participated in the care of the patient.: Yes I have reviewed all pertinent clinical information, including history, physical exam and plan: Yes Notes (Text): 09/16/16 18:13 Patient was seen and examined at bedside Patient is resting comfortably with no acute distress Continue current medical management Continue physical therapy daily Agree with the assessment and plan by the resident.
[2016-09-16] MEDS: Enoxaparin 40 mg Syringe SC SCH (09:34)
[2016-09-16] MEDS: Simethicone 80 mg Chewtab PO PRN (09:37)
[2016-09-16] MEDS: Multiple Vitamins Oral Solution PO SCH (09:39)
--- NOTE | 2016-09-17 01:38 | CP.PCM.PN ---
<Meli Rodarte - Last Filed: 09/17/16 01:31> Subjective - Date & Time of Evaluation Date of Evaluation: 09/17/16 Time of Evaluation: 01:31 - Subjective Subjective: Medicine Progress Note: Dr. Wiggins Service Patient was seen and examined at bedside in no acute distress. Patient was resting comfortably in bed. Patient reports having abdominal pain which he has had for a while now. He states it is due to not having a bowel movement since the following morning. He states he is eating well. Patient denies having chest pain, palpitations, headaches, dizziness, diarrhea, nausea and vomiting. Objective - Vital Signs/Intake and Output Vital Signs (last 24 hours): Temp Pulse Resp BP Pulse Ox 97.8 F 84 20 123/79 98 09/17/16 00:00 09/17/16 00:00 09/17/16 00:00 09/17/16 00:00 09/17/16 00:00 Intake and Output: 09/16/16 09/17/16 18:59 06:59 Intake Total 300 Balance 300 - Medications Medications: Current Medications Acetaminophen (Tylenol 325mg Tab) 650 mg PO Q6 PRN PRN Reason: Pain, Mild (1-3) Last Admin: 08/24/16 23:02 Dose: 650 mg Ascorbic Acid (Vitamin C 250 Mg Tab) 250 mg PO DAILY [facility] Last Admin: 09/16/16 09:36 Dose: 250 mg Bisacodyl (Dulcolax) 5 mg PO Q12 PRN PRN Reason: Constipation Last Admin: 08/18/16 14:47 Dose: 5 mg Enoxaparin Sodium (Lovenox) 40 mg SC DAILY [facility] Last Admin: 09/16/16 09:34 Dose: 40 mg Famotidine (Pepcid) 20 mg PO BID [facility] Last Admin: 09/16/16 18:10 Dose: 20 mg Multivitamins/Vitamin C (Multi-Delyn Liquid) 5 ml PO DAILY [facility] Last Admin: 09/16/16 09:39 Dose: 5 ml Polyethylene Glycol (Miralax) 17 gm PO DAILY [facility] Last Admin: 08/21/16 09:12 Dose: Not Given Simethicone (Mylicon Chew Tab) 80 mg PO QID PRN PRN Reason: GI distress Last Admin: 09/06/16 11:42 Dose: 80 mg Tamsulosin HCl (Flomax) 0.8 mg PO DAILY [facility] Last Admin: 09/16/16 09:34 Dose: 0.8 mg Tramadol HCl (Ultram) 50 mg PO TID PRN PRN Reason: Pain, moderate (4-7) Last Admin: 09/15/16 00:00 Dose: 50 mg Zinc Sulfate (Zinc Sulfate 220 Mg Cap) 220 mg PO DAILY [facility] Last Admin: 09/16/16 09:35 Dose: 220 mg - Labs Labs: 09/13/16 12:23 09/13/16 12:23 - Constitutional Appears: No Acute Distress - Head Exam Head Exam: NORMAL INSPECTION, NORMOCEPHALIC - Eye Exam Eye Exam: EOMI, Normal appearance - ENT Exam ENT Exam: Mucous Membranes Moist - Neck Exam Neck Exam: Full ROM, Normal Inspection - Respiratory Exam Respiratory Exam: Decreased Breath Sounds, Clear to Ausculation Bilateral. absent: Rhonchi, Wheezes - Cardiovascular Exam Cardiovascular Exam: REGULAR RHYTHM, +S1, +S2 - GI/Abdominal Exam GI & Abdominal Exam: Soft, Tenderness (w/palpation of right lower quad- mild), Normal Bowel Sounds - Extremities Exam Extremities Exam: Normal Inspection. absent: Calf Tenderness, Pedal Edema, Tenderness - Neurological Exam Neurological Exam: Alert, Awake, Oriented x3 - Psychiatric Exam Psychiatric exam: Normal Affect, Normal Mood - Skin Skin Exam: Dry, Intact, Normal Color, Warm Assessment and Plan (1) Fracture of tibia, proximal, right, closed Assessment & Plan: PT recommendations from 09/14: " cleared for supervised hallway ambulation with [facility] Ortho is consulted and recommend physical therapy, orthopedically stable Continue physical therapy; goal is for use of cane per ortho. Can be d/c to group home when tolerating cane Patient can ambulate with support with a walker Pain management: Tylenol 650 mg PO Q6 PRN mild pain, Ultram 50 mg PO TID PRN for moderate pain 08/21 studies noted below: Lower Extremity CT: osteopenia and degenerative change, no acute fracture or joint effusion Knee XRAY: initial questionable fracture ruled out by CT imaging. Pelvis XRAY stable acetabular protrusion. Refer to complete reports Status: Chronic (2) Gait instability Assessment & Plan: Improving Per Ortho, orthopedically stable; Physio- full weight bearing Xrays right knee show resolved area of sclerosis at presumed stress fracture right lateral tibial plateau (MRI contraindicated due to metallic implant in patella) Patient continues Status: Acute (3) Aneurysmal dilatation Assessment & Plan: Aneurysmal dilatation of ascending thoracic aorta; Currently 4.[address] imaging every 6 months Status: Chronic (4) History of UTI Assessment & Plan: UA on 09/14 negative for infection Continue to monitor Most recent 06/22 UA (+) for gram Positive cocci Currently asymptomatic Status: Chronic (5) Sacral decubitus ulcer Assessment & Plan: Out of bed into chair daily and continue to encourage ambulation Continue working with physical therapy Patient started on multivitamin, zinc sulfate and vitamin C daily for better wound healing Status: Chronic (6) Anemia Assessment & Plan: H/H is stable. Continue to monitor. Weekly Sunday labs Status: Resolved (7) Constipation Assessment & Plan: Discontinued Dulcolax 08/18/16 Resolved Status: Resolved (8) Seborrheic dermatitis Assessment & Plan: Resolved Monitor for recurrence Status: Resolved (9) BPH (benign prostatic hyperplasia) Assessment & Plan: Flomax 0.8 mg PO daily Status: Chronic (10) Prophylactic measure Assessment & Plan: Labs weekly on Sunday Lovenox 40mg SC daily Pepcid 20mg PO BID Patient is homeless. Goal is to walk with cane so he can go to a group home (will not qualify with a walker) Patient pending transfer, awaiting placement PT: home w services and knee brace; currently working with physical therapy with single point cane Patient is encouraged to leave bed curtains open to prevent being closed off from surroundings. Discussed with nursing team as well. Status: Acute <Jose Wiggins - Last Filed: 09/17/16 13:42> Objective - Vital Signs/Intake and Output Vital Signs (last 24 hours): Temp Pulse Resp BP Pulse Ox 98.3 F 93 H 98 H 109/75 98 09/17/16 08:00 09/17/16 08:00 09/17/16 08:00 09/17/16 08:00 09/17/16 08:00 Intake and Output: 09/17/16 09/17/16 06:59 18:59 Intake Total 500 Balance 500 - Medications Medications: Current Medications Acetaminophen (Tylenol 325mg Tab) 650 mg PO Q6 PRN PRN Reason: Pain, Mild (1-3) Last Admin: 08/24/16 23:02 Dose: 650 mg Ascorbic Acid (Vitamin C 250 Mg Tab) 250 mg PO DAILY [facility] Last Admin: 09/17/16 09:02 Dose: 250 mg Bisacodyl (Dulcolax) 5 mg PO Q12 PRN PRN Reason: Constipation Last Admin: 08/18/16 14:47 Dose: 5 mg Enoxaparin Sodium (Lovenox) 40 mg SC DAILY [facility] Last Admin: 09/17/16 09:03 Dose: 40 mg Famotidine (Pepcid) 20 mg PO BID [facility] Last Admin: 09/17/16 09:02 Dose: 20 mg Multivitamins/Vitamin C (Multi-Delyn Liquid) 5 ml PO DAILY [facility] Last Admin: 09/17/16 10:31 Dose: 5 ml Polyethylene Glycol (Miralax) 17 gm PO DAILY [facility] Last Admin: 08/21/16 09:12 Dose: Not Given Simethicone (Mylicon Chew Tab) 80 mg PO QID PRN PRN Reason: GI distress Last Admin: 09/06/16 11:42 Dose: 80 mg Tamsulosin HCl (Flomax) 0.8 mg PO DAILY [facility] Last Admin: 09/17/16 10:33 Dose: Not Given Tramadol HCl (Ultram) 50 mg PO TID PRN PRN Reason: Pain, moderate (4-7) Last Admin: 09/15/16 00:00 Dose: 50 mg Zinc Sulfate (Zinc Sulfate 220 Mg Cap) 220 mg PO DAILY [facility] Last Admin: 09/17/16 09:02 Dose: 220 mg - Labs Labs: 09/17/16 07:40 09/17/16 07:40 Attending/Attestation - Attestation I have personally seen and examined this patient.: Yes I have fully participated in the care of the patient.: Yes I have reviewed all pertinent clinical information, including history, physical exam and plan: Yes Notes (Text): 09/17/16 13:41 Patient was seen and examined at bedside Complains of right lower extremity pain Encourage patient to ambulate with a cane Patient is awaiting placement Discussed the plan of care with the resident and agree with the history and physical and assessment/plan documented.
[2016-09-17 07:48] LABS: BASO % 0.3 % (0.0-2.0); EOS # 0.1 K/uL (0.0-0.7); EOS % 1.6 % (0.0-4.0); HEMOGLOBIN 14.5 g/dL (12.0-18.0); LYMPH # 1.6 K/uL (1.0-4.3); LYMPH % 25.2 % (20.0-40.0); MEAN CELL VOLUME 93.7 fL (80.0-94.0); MEAN CORPUSCULAR HEMOGLOBIN 31.3 pg (27.0-31.0); MEAN CORPUSCULAR HGB CONC 33.4 g/dL (33.0-37.0); MEAN PLATELET VOLUME 8.6 fL (7.2-11.7); MONO # 0.6 K/uL (0.0-0.8); MONO % 8.8 % (0.0-10.0); NEUT # 4.1 K/uL (1.8-7.0); NEUT % 64.1 % (50.0-75.0); RBC 4.63 Mil/uL (4.40-5.90); RED CELL DISTRIBUTION WIDTH 15.1 % (11.5-14.5); WHITE BLOOD COUNT 6.4 K/uL (4.8-10.8)
[2016-09-17 08:18] LABS: ALB/GLOB RATIO 0.9 (1.0-2.1); ALT/SGPT 8 U/L (21-72); AST/SGOT 19 U/L (17-59); BLOOD UREA NITROGEN 13 mg/dL (9-20); GFR AFRICAN-AMERICAN > 60; GFR NON-AFRICAN AMERICAN > 60
[2016-09-17 08:19] LABS: CALCIUM 9.5 mg/dl (8.6-10.4); MAGNESIUM 1.9 mg/dL (1.6-2.3)
[2016-09-17] MEDS: Enoxaparin 40 mg Syringe SC SCH (09:03)
[2016-09-17] MEDS: Multiple Vitamins Oral Solution PO SCH (10:31)
[2016-09-17] MEDS: Lidocaine 5% Patch TD SCH (14:58)
[2016-09-17 17:15] VITALS: RESP 20
[2016-09-18 08:26] LABS: BASO % 0.6 % (0.0-2.0); EOS # 0.1 K/uL (0.0-0.7); EOS % 1.2 % (0.0-4.0); HEMOGLOBIN 14.8 g/dL (12.0-18.0); LYMPH # 1.4 K/uL (1.0-4.3); LYMPH % 26.5 % (20.0-40.0); MEAN CELL VOLUME 94.2 fL (80.0-94.0); MEAN PLATELET VOLUME 8.3 fL (7.2-11.7); MONO # 0.4 K/uL (0.0-0.8); MONO % 6.6 % (0.0-10.0); NEUT # 3.5 K/uL (1.8-7.0); NEUT % 65.1 % (50.0-75.0); NRBC % 0.1 % (0.0-2.0); RBC 4.63 Mil/uL (4.40-5.90); RED CELL DISTRIBUTION WIDTH 15.3 % (11.5-14.5); WHITE BLOOD COUNT 5.3 K/uL (4.8-10.8)
[2016-09-18 08:41] LABS: ALBUMIN 4.1 g/dL (3.5-5.0)
[2016-09-18 08:44] LABS: AST/SGOT 22 U/L (17-59); GFR AFRICAN-AMERICAN > 60; GFR NON-AFRICAN AMERICAN > 60
[2016-09-18 08:45] LABS: ALT/SGPT 20 U/L (21-72); BLOOD UREA NITROGEN 17 mg/dL (9-20); CALCIUM 9.5 mg/dl (8.6-10.4); MAGNESIUM 1.9 mg/dL (1.6-2.3)
--- NOTE | 2016-09-18 11:02 | CP.PCM.PN ---
Subjective - Date & Time of Evaluation Date of Evaluation: 09/18/16 Time of Evaluation: 10:56 - Subjective Subjective: Patient complaining of right hip and knee pain today. No new complaints. Objective - Vital Signs/Intake and Output Vital Signs (last 24 hours): Temp Pulse Resp BP Pulse Ox 98.2 F 89 20 113/79 97 09/18/16 08:00 09/18/16 08:00 09/18/16 08:00 09/18/16 08:00 09/18/16 08:00 Intake and Output: 09/18/16 09/18/16 06:59 18:59 Intake Total 300 Balance 300 - Medications Medications: Current Medications Acetaminophen (Tylenol 325mg Tab) 650 mg PO Q6 PRN PRN Reason: Pain, Mild (1-3) Last Admin: 08/24/16 23:02 Dose: 650 mg Ascorbic Acid (Vitamin C 250 Mg Tab) 250 mg PO DAILY [facility] Last Admin: 09/17/16 09:02 Dose: 250 mg Bisacodyl (Dulcolax) 5 mg PO Q12 PRN PRN Reason: Constipation Last Admin: 08/18/16 14:47 Dose: 5 mg Enoxaparin Sodium (Lovenox) 40 mg SC DAILY [facility] Last Admin: 09/17/16 09:03 Dose: 40 mg Famotidine (Pepcid) 20 mg PO BID [facility] Last Admin: 09/17/16 17:56 Dose: 20 mg Lidocaine (Lidoderm) 1 ea TD DAILY [facility] Last Admin: 09/17/16 14:58 Dose: 1 ea Multivitamins/Vitamin C (Multi-Delyn Liquid) 5 ml PO DAILY [facility] Last Admin: 09/17/16 10:31 Dose: 5 ml Polyethylene Glycol (Miralax) 17 gm PO DAILY [facility] Last Admin: 08/21/16 09:12 Dose: Not Given Simethicone (Mylicon Chew Tab) 80 mg PO QID PRN PRN Reason: GI distress Last Admin: 09/06/16 11:42 Dose: 80 mg Tamsulosin HCl (Flomax) 0.8 mg PO DAILY [facility] Last Admin: 09/17/16 10:33 Dose: Not Given Tramadol HCl (Ultram) 50 mg PO TID PRN PRN Reason: Pain, moderate (4-7) Last Admin: 09/15/16 00:00 Dose: 50 mg Zinc Sulfate (Zinc Sulfate 220 Mg Cap) 220 mg PO DAILY [facility] Last Admin: 09/17/16 09:02 Dose: 220 mg - Labs Labs: 09/18/16 08:09 09/18/16 08:09 - Constitutional Appears: Well, No Acute Distress - Cardiovascular Exam Additional comments: +DP pulse calves soft NT neg homasn - Extremities Exam Additional comments: RLE: improving strength to SLR and knee ext sensation intact - Neurological Exam Neurological Exam: Alert, Awake, Oriented x3 Neuro motor strength exam: Right Lower Extremity: 5 (DF/PF) - Psychiatric Exam Psychiatric exam: Normal Affect, Normal Mood - Skin Skin Exam: Dry, Intact, Normal Color, Warm Assessment and Plan (1) Acetabular protrusion Assessment & Plan: stable no orthopedic intervention Status: Chronic (2) Fracture of tibia, proximal, right, closed Assessment & Plan: healed cont PT/OT cont ambulation encourage OOB VTE proph d/w Dr. Pino, agrees with above Status: Chronic (3) Right knee DJD Assessment & Plan: s/p injection Status: Chronic
[2016-09-18] MEDS: Enoxaparin 40 mg Syringe SC SCH (11:07)
[2016-09-18] MEDS: Lidocaine 5% Patch TD SCH (11:08)
[2016-09-18] MEDS: Multiple Vitamins Oral Solution PO SCH (11:09)
--- NOTE | 2016-09-18 13:43 | CP.PCM.PN ---
<GatoCarlyrodríguez Pacheco - Last Filed: 09/18/16 19:09> Subjective - Date & Time of Evaluation Date of Evaluation: 09/18/16 Time of Evaluation: 07:30 - Subjective Subjective: Medicine note (PGY 1) : Dr. Rutherford's service Patient was seen and examined at bedside. Patient had no acute events overnight. Patient denies chest pain, sob, nausea, vomiting but reports mild abdominal pain and diarrhea. Patient is tolerating diet and ambulating with assisted devices. Objective - Vital Signs/Intake and Output Vital Signs (last 24 hours): Temp Pulse Resp BP Pulse Ox 98.2 F 89 20 113/79 97 09/18/16 08:00 09/18/16 08:00 09/18/16 08:00 09/18/16 08:00 09/18/16 08:00 Intake and Output: 09/18/16 09/18/16 06:59 18:59 Intake Total 300 Balance 300 - Medications Medications: Current Medications Acetaminophen (Tylenol 325mg Tab) 650 mg PO Q6 PRN PRN Reason: Pain, Mild (1-3) Last Admin: 08/24/16 23:02 Dose: 650 mg Ascorbic Acid (Vitamin C 250 Mg Tab) 250 mg PO DAILY [facility] Last Admin: 09/18/16 11:09 Dose: 250 mg Bisacodyl (Dulcolax) 5 mg PO Q12 PRN PRN Reason: Constipation Last Admin: 08/18/16 14:47 Dose: 5 mg Enoxaparin Sodium (Lovenox) 40 mg SC DAILY [facility] Last Admin: 09/18/16 11:07 Dose: 40 mg Famotidine (Pepcid) 20 mg PO BID [facility] Last Admin: 09/18/16 11:08 Dose: 20 mg Lidocaine (Lidoderm) 1 ea TD DAILY [facility] Last Admin: 09/18/16 11:08 Dose: 1 ea Multivitamins/Vitamin C (Multi-Delyn Liquid) 5 ml PO DAILY [facility] Last Admin: 09/18/16 11:09 Dose: 5 ml Polyethylene Glycol (Miralax) 17 gm PO DAILY [facility] Last Admin: 08/21/16 09:12 Dose: Not Given Simethicone (Mylicon Chew Tab) 80 mg PO QID PRN PRN Reason: GI distress Last Admin: 09/06/16 11:42 Dose: 80 mg Tamsulosin HCl (Flomax) 0.8 mg PO DAILY [facility] Last Admin: 09/18/16 11:08 Dose: 0.8 mg Tramadol HCl (Ultram) 50 mg PO TID PRN PRN Reason: Pain, moderate (4-7) Last Admin: 09/15/16 00:00 Dose: 50 mg Zinc Sulfate (Zinc Sulfate 220 Mg Cap) 220 mg PO DAILY [facility] Last Admin: 09/18/16 11:07 Dose: 220 mg - Labs Labs: 09/18/16 08:09 09/18/16 08:09 - Constitutional Appears: Well, No Acute Distress - Head Exam Head Exam: NORMAL INSPECTION, NORMOCEPHALIC - Eye Exam Eye Exam: EOMI, Normal appearance - ENT Exam ENT Exam: Mucous Membranes Moist, Normal Exam - Respiratory Exam Respiratory Exam: Clear to Ausculation Bilateral, NORMAL BREATHING PATTERN - Cardiovascular Exam Cardiovascular Exam: REGULAR RHYTHM, +S1, +S2 - GI/Abdominal Exam GI & Abdominal Exam: Soft, Normal Bowel Sounds - Extremities Exam Extremities Exam: Tenderness - Neurological Exam Neurological Exam: Alert, Awake, Oriented x3 - Psychiatric Exam Psychiatric exam: Depressed, Flat Affect - Skin Skin Exam: Dry, Intact, Normal Color, Warm Assessment and Plan (1) Fracture of tibia, proximal, right, closed Assessment & Plan: Stable PT recommendations from 09/14: " cleared for supervised hallway ambulation with [facility] Continue physical therapy; goal is for use of cane per ortho. Can be d/c to [facility] when tolerating cane Patient can ambulate with support with a walker 09/10: per ortho, orthopedically stable; Physio- full weight bearing Continue physical therapy; goal is for use of cane per ortho. can be d/c to penitentiary when tolerating cane Patient can ambulate with support with a walker Patient is progressively weight bearing. No ortho intervention needed at this time. Ortho monitoring. Ortho saw patient 08/30 and recommended to continue PT/ OT. Ortho saw patient 09/01 and gave right knee steroid injection. Patient tolerated it well and felt relief. Tylenol 650 mg PO Q6 PRN mild pain, Ultram 50 mg PO TID PRN for moderate pain Daily physical therapy to maximize ambulation with cane unassisted. 08/21 studies noted below: Lower Extremity CT: osteopenia and degenerative change, no acute fracture or joint effusion Knee XRAY: initial questionable fracture ruled out by CT imaging. Pelvis XRAY stable acetabular protrusion. Refer to complete reports Status: Chronic (2) Gait instability Assessment & Plan: Stable 09/10: per ortho, orthopedically stable; Physio- full weight bearing 09/07: As per PT, patient feeling weak with headache and declines OOB for lunch. xrays right knee show resolved area of sclerosis at presumed stress fracture right lateral tibial plateau (MRI contraindicated due to metallic implant in patella) Pt continues to work with PT, encourage patient to ambulate. Patient with cane or walker unassisted Status: Acute (3) Diarrhea Assessment & Plan: Intermittent Repeat stool culture and C-diff AB toxin (09/18/16) Miralax and dulcolax ( held 08/19 & 08/18, respectively Last stool culture (07/16/16) : Negative and ova & parasite ( Negative 07/20/16) Status: Acute (4) BPH (benign prostatic hyperplasia) Assessment & Plan: Flomax 0.8 mg PO daily Status: Chronic (5) Aneurysmal dilatation Assessment & Plan: Aneurysmal dilatation of ascending thoracic aorta; Currently 4.[address] imaging every 6 months Status: Chronic (6) Sacral decubitus ulcer Assessment & Plan: Out of bed into chair daily and continue to encourage ambulation Continue working with physical therapy Status: Chronic (7) Anemia Assessment & Plan: Stable H/H is stable. Cont to monitor. Weekly Sunday labs Status: Resolved (8) History of UTI Assessment & Plan: Continue to monitor Most recent 06/22 UA (+) for gram Positive cocci Currently asymptomatic 09/13/16: Urinary Frequency Repeat UA and UC (09/14/16) : Negative (14 RBCs) and Negative, respectively Status: Chronic (9) Seborrheic dermatitis Assessment & Plan: Resolved Monitor for recurrence Status: Resolved (10) Prophylactic measure Assessment & Plan: Labs weekly on Sunday Lovenox 40mg SC daily Pepcid 20mg PO BID Patient is homeless. Goal is to walk with cane so he can go to a penitentiary (will not qualify with a walker) Pt pending transfer, awaiting placement PT: home w services and knee brace; currently working with physical therapy with single point cane Patient is encouraged to leave bed curtains open to prevent being closed off from surroundings. Discussed with nursing team as well. Status: Acute <Sukhwinder Rutherford H - Last Filed: 09/18/16 19:14> Objective - Vital Signs/Intake and Output Vital Signs (last 24 hours): Temp Pulse Resp BP Pulse Ox 98.0 F 78 20 104/64 98 09/18/16 16:00 09/18/16 16:00 09/18/16 16:00 09/18/16 16:00 09/18/16 16:00 Intake and Output: 09/18/16 09/19/16 18:59 06:59 Intake Total 500 Balance 500 - Medications Medications: Current Medications Acetaminophen (Tylenol 325mg Tab) 650 mg PO Q6 PRN PRN Reason: Pain, Mild (1-3) Last Admin: 08/24/16 23:02 Dose: 650 mg Ascorbic Acid (Vitamin C 250 Mg Tab) 250 mg PO DAILY [facility] Last Admin: 09/18/16 11:09 Dose: 250 mg Bisacodyl (Dulcolax) 5 mg PO Q12 PRN PRN Reason: Constipation Last Admin: 08/18/16 14:47 Dose: 5 mg Enoxaparin Sodium (Lovenox) 40 mg SC DAILY [facility] Last Admin: 09/18/16 11:07 Dose: 40 mg Famotidine (Pepcid) 20 mg PO BID [facility] Last Admin: 09/18/16 17:04 Dose: 20 mg Lidocaine (Lidoderm) 1 ea TD DAILY [facility] Last Admin: 09/18/16 11:08 Dose: 1 ea Multivitamins/Vitamin C (Multi-Delyn Liquid) 5 ml PO DAILY [facility] Last Admin: 09/18/16 11:09 Dose: 5 ml Polyethylene Glycol (Miralax) 17 gm PO DAILY [facility] Last Admin: 08/21/16 09:12 Dose: Not Given Simethicone (Mylicon Chew Tab) 80 mg PO QID PRN PRN Reason: GI distress Last Admin: 09/06/16 11:42 Dose: 80 mg Tamsulosin HCl (Flomax) 0.8 mg PO DAILY [facility] Last Admin: 09/18/16 11:08 Dose: 0.8 mg Tramadol HCl (Ultram) 50 mg PO TID PRN PRN Reason: Pain, moderate (4-7) Last Admin: 09/15/16 00:00 Dose: 50 mg Zinc Sulfate (Zinc Sulfate 220 Mg Cap) 220 mg PO DAILY [facility] Last Admin: 09/18/16 11:07 Dose: 220 mg - Labs Labs: 09/18/16 08:09 09/18/16 08:09 Attending/Attestation - Attestation I have personally seen and examined this patient.: Yes I have fully participated in the care of the patient.: Yes I have reviewed all pertinent clinical information, including history, physical exam and plan: Yes
[2016-09-19] MEDS: Lidocaine 5% Patch TD SCH (09:47)
[2016-09-19] MEDS: Enoxaparin 40 mg Syringe SC SCH (09:48)
[2016-09-19] MEDS: Multiple Vitamins Oral Solution PO SCH (10:00)
--- NOTE | 2016-09-19 13:19 | RAD ---
PROCEDURE: Right Knee Radiographs. HISTORY: follow up COMPARISON: Right knee x-ray 08/21/[address] right lower extremity 08/21/2016 and 04/21/2016 right knee x-ray FINDINGS: BONES: Severe osteopenia. Well corticated ossification bordering the superior anterior tibial tuberosity. Old osseous avulsion injury unchanged with earlier 04/21/2016 exam JOINTS: Mild multi compartmental joint space narrowing patellofemoral most notable. JOINT EFFUSION: None. OTHER FINDINGS: Cerclage wires transfix the old fracture. No interval acute fractures suggested IMPRESSION: Severe osteopenia. Status post remote patellar fracture with cerclage wire fixation. Open discontinuity superior aspect -long-standing. Old anterior tibial tuberosity osseous avulsion and/or ossification of the descending patellar tendon- chronic No acute fracture
--- NOTE | 2016-09-19 13:30 | RAD ---
PROCEDURE: Right Hip Radiographs. HISTORY: follow up COMPARISON: 08/21/2016 pelvis and right hip x-ray 07/31/2016 FINDINGS: BONES: Right hip deformity with heterogeneous mineralization. Right hip hemiarthroplasty - acetabular and femoral components appear similar. The radiolucency around the acetabular component is bordered laterally by sclerotic changes. The medial ischial cortical integrity is indeterminate given the marked demineralization and eggshell appearance. This acetabular erick prosthetic cortical appearing is similar with earlier studies. The superior migration and the right acetabular protrusio are chronic changes Excluding the patchy sclerotic changes bordering the right acetabular prosthetic component, most of the bone mineralization is osteopenic JOINTS: As above SOFT TISSUES: Normal. OTHER FINDINGS: None. 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 The medial right ischial cortical integrity is indeterminate given this severe demineralization and a shell like appearance. Nevertheless no change in this appearance is suggested. The acetabulum and femoral prostatic components are similar
--- NOTE | 2016-09-19 16:04 | CP.PCM.PN ---
Subjective - Date & Time of Evaluation Date of Evaluation: 09/19/16 Time of Evaluation: 07:10 - Subjective Subjective: Medicine Note (PGY 1) : Dr. Rutherford's service Patient was seen and examined at bedside. Patient was sitting up comfortably in his bed. Patient reports that he is the same and has no new complaints. Patient had no acute events overnight. Objective - Vital Signs/Intake and Output Vital Signs (last 24 hours): Temp Pulse Resp BP Pulse Ox 98.1 F 78 20 111/74 97 09/19/16 08:00 09/19/16 08:00 09/19/16 08:00 09/19/16 08:00 09/19/16 08:00 Intake and Output: 09/19/16 09/19/16 06:59 18:59 Intake Total 700 Balance 700 - Medications Medications: Current Medications Acetaminophen (Tylenol 325mg Tab) 650 mg PO Q6 PRN PRN Reason: Pain, Mild (1-3) Last Admin: 08/24/16 23:02 Dose: 650 mg Ascorbic Acid (Vitamin C 250 Mg Tab) 250 mg PO DAILY [facility] Last Admin: 09/19/16 09:49 Dose: 250 mg Bisacodyl (Dulcolax) 5 mg PO Q12 PRN PRN Reason: Constipation Last Admin: 08/18/16 14:47 Dose: 5 mg Enoxaparin Sodium (Lovenox) 40 mg SC DAILY [facility] Last Admin: 09/19/16 09:48 Dose: 40 mg Famotidine (Pepcid) 20 mg PO BID [facility] Last Admin: 09/19/16 09:48 Dose: 20 mg Lidocaine (Lidoderm) 1 ea TD DAILY [facility] Last Admin: 09/19/16 09:47 Dose: 1 ea Multivitamins/Vitamin C (Multi-Delyn Liquid) 5 ml PO DAILY [facility] Last Admin: 09/18/16 11:09 Dose: 5 ml Polyethylene Glycol (Miralax) 17 gm PO DAILY [facility] Last Admin: 08/21/16 09:12 Dose: Not Given Simethicone (Mylicon Chew Tab) 80 mg PO QID PRN PRN Reason: GI distress Last Admin: 09/06/16 11:42 Dose: 80 mg Tamsulosin HCl (Flomax) 0.8 mg PO DAILY [facility] Last Admin: 09/19/16 09:48 Dose: 0.8 mg Tramadol HCl (Ultram) 50 mg PO TID PRN PRN Reason: Pain, moderate (4-7) Last Admin: 09/15/16 00:00 Dose: 50 mg Zinc Sulfate (Zinc Sulfate 220 Mg Cap) 220 mg PO DAILY [facility] Last Admin: 09/19/16 09:49 Dose: 220 mg - Labs Labs: 09/18/16 08:09 09/18/16 08:09 Assessment and Plan (1) Fracture of tibia, proximal, right, closed Assessment & Plan: Stable PT recommendation from : " Patient has received maximum PT thus PT to be discontinued PT recommendations from 09/14: " cleared for supervised hallway ambulation with [facility] Continue physical therapy; goal is for use of cane per ortho. Can be d/c to halfway when tolerating cane Patient can ambulate with support with a walker 09/10: per ortho, orthopedically stable; Physio- full weight bearing Continue physical therapy; goal is for use of cane per ortho. can be d/c to halfway when tolerating cane Patient can ambulate with support with a walker Patient is progressively weight bearing. No ortho intervention needed at this time. Ortho monitoring. Ortho saw patient 08/30 and recommended to continue PT/ OT. Ortho saw patient 09/01 and gave right knee steroid injection. Patient tolerated it well and felt relief. Tylenol 650 mg PO Q6 PRN mild pain, Ultram 50 mg PO TID PRN for moderate pain Daily physical therapy to maximize ambulation with cane unassisted. 08/21 studies noted below: Lower Extremity CT: osteopenia and degenerative change, no acute fracture or joint effusion Knee XRAY: initial questionable fracture ruled out by CT imaging. Pelvis XRAY stable acetabular protrusion. 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 The medial right ischial cortical integrity is indeterminate given this severe demineralization and a shell like appearance. Nevertheless no change in this appearance is suggested. The acetabulum and femoral prostatic components are similar 09/19/16: (Right knee X-ray) : Severe osteopenia. Status post remote patellar fracture with cerclage wire fixation. Open discontinuity superior aspect -long- standing. Old anterior tibial tuberosity osseous avulsion and/or ossification of the descending patellar tendon- chronic. No acute fracture Status: Chronic (2) Gait instability Assessment & Plan: Stable 09/15: As per PT, patient has received maximum PT and PT to be discontinued 09/10: per ortho, orthopedically stable; Physio- full weight bearing 09/07: As per PT, patient feeling weak with headache and declines OOB for lunch. xrays right knee show resolved area of sclerosis at presumed stress fracture right lateral tibial plateau (MRI contraindicated due to metallic implant in patella) Pt continues to work with PT, encourage patient to ambulate. Patient with cane or walker unassisted Status: Acute (3) Diarrhea Assessment & Plan: Intermittent Pending Repeat stool culture and C-diff AB toxin (09/18/16) Miralax and dulcolax ( held 08/19 & 08/18, respectively Last stool culture (07/16/16) : Negative and ova & parasite ( Negative 07/20/16) Status: Acute (4) BPH (benign prostatic hyperplasia) Assessment & Plan: Flomax 0.8 mg PO daily Status: Chronic (5) Aneurysmal dilatation Assessment & Plan: Aneurysmal dilatation of ascending thoracic aorta; Currently 4.[address] imaging every 6 months Status: Chronic (6) Sacral decubitus ulcer Assessment & Plan: Out of bed into chair daily and continue to encourage ambulation Continue working with physical therapy; As per PT, patient has received maximum PT and PT to be discontinued Patient is able to ambulate independently with assisted device Status: Chronic (7) Anemia Assessment & Plan: Stable H/H is stable. Cont to monitor. Weekly Sunday labs Status: Resolved (8) History of UTI Assessment & Plan: Continue to monitor Most recent 06/22 UA (+) for gram Positive cocci Currently asymptomatic 09/13/16: Urinary Frequency Repeat UA and UC (09/14/16) : Negative (14 RBCs) and Negative, respectively Status: Chronic (9) Seborrheic dermatitis Assessment & Plan: Resolved Monitor for recurrence Status: Resolved (10) Prophylactic measure Assessment & Plan: Labs weekly on Sunday Lovenox 40mg SC daily Pepcid 20mg PO BID Patient is homeless. Goal is to walk with cane so he can go to a halfway (will not qualify with a walker) Pt pending transfer, awaiting placement PT: home w services and knee brace; currently working with physical therapy with single point cane; as per PT, patient has received maximum PT and PT is to be discontinued Patient is encouraged to leave bed curtains open to prevent being closed off from surroundings. Discussed with nursing team as well. Status: Acute
--- NOTE | 2016-09-20 10:13 | CP.PCM.PN ---
Subjective - Date & Time of Evaluation Date of Evaluation: 09/20/16 Time of Evaluation: 10:11 - Subjective Subjective: Complains of right hip/knee pain, no new complaints. Objective - Vital Signs/Intake and Output Vital Signs (last 24 hours): Temp Pulse Resp BP Pulse Ox 98.0 F 80 20 119/75 98 09/20/16 08:31 09/20/16 08:31 09/20/16 08:31 09/20/16 08:31 09/20/16 08:31 Intake and Output: 09/20/16 09/20/16 06:59 18:59 Intake Total 300 180 Balance 300 180 - Medications Medications: Current Medications Acetaminophen (Tylenol 325mg Tab) 650 mg PO Q6 PRN PRN Reason: Pain, Mild (1-3) Last Admin: 08/24/16 23:02 Dose: 650 mg Ascorbic Acid (Vitamin C 250 Mg Tab) 250 mg PO DAILY [facility] Last Admin: 09/19/16 09:49 Dose: 250 mg Bisacodyl (Dulcolax) 5 mg PO Q12 PRN PRN Reason: Constipation Last Admin: 08/18/16 14:47 Dose: 5 mg Enoxaparin Sodium (Lovenox) 40 mg SC DAILY [facility] Last Admin: 09/19/16 09:48 Dose: 40 mg Famotidine (Pepcid) 20 mg PO BID [facility] Last Admin: 09/19/16 18:01 Dose: 20 mg Lidocaine (Lidoderm) 1 ea TD DAILY [facility] Last Admin: 09/19/16 09:47 Dose: 1 ea Multivitamins/Vitamin C (Multi-Delyn Liquid) 5 ml PO DAILY [facility] Last Admin: 09/19/16 10:00 Dose: 5 ml Polyethylene Glycol (Miralax) 17 gm PO DAILY [facility] Last Admin: 08/21/16 09:12 Dose: Not Given Simethicone (Mylicon Chew Tab) 80 mg PO QID PRN PRN Reason: GI distress Last Admin: 09/06/16 11:42 Dose: 80 mg Tamsulosin HCl (Flomax) 0.8 mg PO DAILY [facility] Last Admin: 09/19/16 09:48 Dose: 0.8 mg Tramadol HCl (Ultram) 50 mg PO TID PRN PRN Reason: Pain, moderate (4-7) Last Admin: 09/19/16 19:26 Dose: 50 mg Zinc Sulfate (Zinc Sulfate 220 Mg Cap) 220 mg PO DAILY [facility] Last Admin: 09/19/16 09:49 Dose: 220 mg - Labs Labs: 09/18/16 08:09 09/18/16 08:09 - Constitutional Appears: Well, No Acute Distress - Cardiovascular Exam Additional comments: calves soft NT neg homans - Neurological Exam Neurological Exam: Alert, Awake, Oriented x3 Neuro motor strength exam: Right Lower Extremity: 5 (+DP/PF, knee ROM improving , quad strength improving, uses mini brace for ambulation) - Psychiatric Exam Psychiatric exam: Normal Affect, Normal Mood - Skin Skin Exam: Dry, Intact, Normal Color, Warm Assessment and Plan (1) Acetabular protrusion Assessment & Plan: new imaging of right knee two views and right hip reviewed, stable, no change PT notes appreciated orthopedically stable for d/c to halfway d/w Dr. Pino, agrees with above patient can follow up in office of Dr. Pino prn [phone] Status: Chronic (2) Fracture of tibia, proximal, right, closed Status: Chronic (3) Right knee DJD Assessment & Plan: s/p injection Status: Chronic Radiology Interpretation - Radiology Interpretation #2 Interpretation: Patient Name / ID : ESME QUESADA / [id number] Exam Date : 09/19/2016 11:02:38 ( Approved ) Study Comment : Sex / Age : M / 71Y Creator : Sarahi Osorio V. Dictator : Sarahi Osorio V. Wood Heel Attacher : [facility] Assistant : Sarahi Osorio V. Approver2 : Report Date : 09/19/2016 13:24:51 My Comment : PROCEDURE: Right Hip Radiographs. HISTORY: follow up COMPARISON: 08/21/2016 pelvis and right hip x-ray 07/31/2016 FINDINGS: BONES: Right hip deformity with heterogeneous mineralization. Right hip hemiarthroplasty - acetabular and femoral components appear similar. The radiolucency around the acetabular component is bordered laterally by sclerotic changes. The medial ischial cortical integrity is indeterminate given the marked demineralization and eggshell appearance. This acetabular erick prosthetic cortical appearing is similar with earlier studies. The superior migration and the right acetabular protrusio are chronic changes Excluding the patchy sclerotic changes bordering the right acetabular prosthetic component, most of the bone mineralization is osteopenic JOINTS: As above SOFT TISSUES: Normal. OTHER FINDINGS: None. 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 The medial right ischial cortical integrity is indeterminate given this severe demineralization and a shell like appearance. Nevertheless no change in this appearance is suggested. The acetabulum and femoral prostatic components are similar Patient Name / ID : ESME QUESADA / [id number] Exam Date : 09/19/2016 11:02:38 ( Approved ) Study Comment : Sex / Age : M / 71Y Creator : Sarahi Osorio V. Dictator : Sarahi Osorio V. Wood Heel Attacher : [facility] Assistant : Sarahi Osorio V. Approver2 : Report Date : 09/19/2016 13:13:48 My Comment : PROCEDURE: Right Knee Radiographs. HISTORY: follow up COMPARISON: Right knee x-ray 08/21/[address] right lower extremity 08/21/2016 and 04/21/2016 right knee x-ray FINDINGS: BONES: Severe osteopenia. Well corticated ossification bordering the superior anterior tibial tuberosity. Old osseous avulsion injury unchanged with earlier 2016 exam JOINTS: Mild multi compartmental joint space narrowing patellofemoral most notable. JOINT EFFUSION: None. OTHER FINDINGS: Cerclage wires transfix the old fracture. No interval acute fractures suggested IMPRESSION: Severe osteopenia. Status post remote patellar fracture with cerclage wire fixation. Open discontinuity superior aspect -long-standing. Old anterior tibial tuberosity osseous avulsion and/or ossification of the descending patellar tendon- chronic No acute fracture
[2016-09-20] MEDS: Enoxaparin 40 mg Syringe SC SCH (10:32)
[2016-09-20] MEDS: Lidocaine 5% Patch TD SCH (10:32)
[2016-09-20] MEDS: Multiple Vitamins Oral Solution PO SCH ×2 (13:53→13:54)
--- NOTE | 2016-09-20 21:16 | CP.PCM.DIS ---
<Tiffanie Hoskins E - Last Filed: 09/20/16 21:19> Provider - Provider Date of Admission: 03/10/16 13:31 Attending physician: Sukhwinder Rutherford DO Time Spent in preparation of Discharge (in minutes): 45 Diagnosis - Discharge Diagnosis (1) Fracture of tibia, proximal, right, closed Status: Chronic (2) Gait instability Status: Acute (3) Diarrhea Status: Acute (4) BPH (benign prostatic hyperplasia) Status: Chronic (5) Aneurysmal dilatation Status: Chronic (6) Sacral decubitus ulcer Status: Chronic (7) Anemia Status: Resolved (8) History of UTI Status: Chronic (9) Seborrheic dermatitis Status: Resolved (10) Prophylactic measure Status: Acute Hospital Course - Lab Results Lab Results: Micro Results 09/14/16 06:00 Urine Urine Culture - Final No Growth (<1,000 CFU/ML) 07/20/16 Unknown Stool Ova and Parasite Concentrate Exam - Final 07/16/16 10:40 Stool Stool Culture - Final NO SALMONELLA, SHIGELLA OR CAMPYLOBACTER ISOLATED. 06/22/16 11:35 Urine Urine Culture - Final Gram Positive Cocci 05/20/16 Unknown Urine,Clean Catch Urine Culture - Final No Growth (<1,000 CFU/ML) 05/16/16 01:32 Stool Stool Culture - Final NO SALMONELLA, SHIGELLA OR CAMPYLOBACTER ISOLATED. 05/16/16 01:04 Urine,Clean Catch Urine Culture - Final No Growth (<1,000 CFU/ML) 05/16/16 01:32 Rectum Ova and Parasite Concentrate Exam - Final 05/03/16 17:36 Urine Urine Culture - Final No Growth (<1,000 CFU/ML) 04/09/16 12:01 Urine Urine Culture - Final No Growth (<1,000 CFU/ML) 04/03/16 20:08 Urine Urine Culture - Final No Growth (<1,000 CFU/ML) 03/29/16 22:16 Stool Stool Culture - Final NO SALMONELLA, SHIGELLA OR CAMPYLOBACTER ISOLATED. 03/29/16 18:31 Urine,Clean Catch Urine Culture - Final No Growth (<1,000 CFU/ML) 03/18/16 20:46 Urine Urine Culture - Final No Growth (<1,000 CFU/ML) 03/14/16 12:50 Urine Urine Culture - Final Enterococcus Faecalis 03/10/16 19:00 Blood Blood Culture - Final NO GROWTH AFTER 5 DAYS 03/10/16 19:00 Blood Gram Stain - Final TEST NOT PERFORMED 03/10/16 19:05 Blood Blood Culture - Final NO GROWTH AFTER 5 DAYS 03/10/16 19:05 Blood Gram Stain - Final TEST NOT PERFORMED Most Recent Lab Values WBC 5.3 K/uL (4.8-10.8) 09/18/16 08:09 RBC 4.63 Mil/uL (4.40-5.90) 09/18/16 08:09 Hgb 14.8 g/dL (12.0-18.0) 09/18/16 08:09 Hct 43.6 % (35.0-51.0) 09/18/16 08:09 MCV 94.2 fL (80.0-94.0) H 09/18/16 08:09 MCH 32.0 pg (27.0-31.0) H 09/18/16 08:09 MCHC 34.0 g/dL (33.0-37.0) 09/18/16 08:09 RDW 15.3 % (11.5-14.5) H 09/18/16 08:09 Plt Count 247 K/uL (130-400) 09/18/16 08:09 MPV 8.3 fL (7.2-11.7) 09/18/16 08:09 Neut % (Auto) 65.1 % (50.0-75.0) 09/18/16 08:09 Lymph % (Auto) 26.5 % (20.0-40.0) 09/18/16 08:09 [place] % (Auto) 6.6 % (0.0-10.0) 09/18/16 08:09 Eos % (Auto) 1.2 % (0.0-4.0) 09/18/16 08:09 Baso % (Auto) 0.6 % (0.0-2.0) 09/18/16 08:09 Neut # 3.5 K/uL (1.8-7.0) 09/18/16 08:09 Lymph # 1.4 K/uL (1.0-4.3) 09/18/16 08:09 [place] # 0.4 K/uL (0.0-0.8) 09/18/16 08:09 Eos # 0.1 K/uL (0.0-0.7) 09/18/16 08:09 Baso # 0.0 K/uL (0.0-0.2) 09/18/16 08:09 Neutrophils % (Manual) 75 % (50-75) 03/10/16 12:41 Lymphocytes % (Manual) 14 % (20-40) L 03/10/16 12:41 Monocytes % (Manual) 11 % (0-10) H 03/10/16 12:41 Platelet Estimate Normal (NORMAL) 03/10/16 12:41 Hypochromasia (manual) Slight 03/10/16 12:41 Poikilocytosis (manual Slight 03/10/16 12:41 Anisocytosis (manual) Slight 03/10/16 12:41 Macrocytosis (manual) Slight 03/10/16 12:41 Target Cells Slight 03/10/16 12:41 Tear Drop Cells Slight 03/10/16 12:41 ESR 32 mm/hr (0-15) H 05/15/16 07:15 Retic Count 0.9 % (0.5-1.5) 03/22/16 07:09 Sodium 139 mmol/L (132-148) 09/18/16 08:09 Potassium 3.8 mmol/L (3.6-5.2) 09/18/16 08:09 Chloride 100 mmol/L (98-107) 09/18/16 08:09 Carbon Dioxide 29 mmol/L (22-30) 09/18/16 08:09 Anion Gap 14 (10-20) 09/18/16 08:09 BUN 17 mg/dL (9-20) 09/18/16 08:09 Creatinine 0.7 MG/DL (0.8-1.5) L 09/18/16 08:09 Est GFR ( Amer) > 60 09/18/16 08:09 Est GFR (Non-Af Amer) > 60 09/18/16 08:09 POC Glucose (mg/dL) 139 mg/dL (65-110) H 06/11/16 12:02 Random Glucose 127 mg/dL (75-110) H 09/18/16 08:09 Calcium 9.5 mg/dl (8.6-10.4) 09/18/16 08:09 Phosphorus 3.5 mg/dL (2.5-4.5) 09/18/16 08:09 Magnesium 1.9 mg/dL (1.6-2.3) 09/18/16 08:09 Iron 48 ug/dL (49-181) L 05/26/16 07:40 TIBC 234 ug/dL (250-450) L 05/26/16 07:40 % Saturation 21 (20-55) 05/26/16 07:40 Ferritin 211.0 ng/mL 05/26/16 07:40 Total Bilirubin 0.7 mg/dL (0.2-1.3) 09/18/16 08:09 AST 22 U/L (17-59) 09/18/16 08:09 ALT 20 U/L (21-72) L D 09/18/16 08:09 Alkaline Phosphatase 92 U/L (38-126) 09/18/16 08:09 Total Creatine Kinase 20 U/L (55-170) L 05/05/16 13:10 C-React Prot High Sens 1.51 mg/L (1.00-3.00) 05/15/16 13:56 Total Protein 8.2 g/dL (6.3-8.3) 09/18/16 08:09 Albumin 4.1 g/dL (3.5-5.0) 09/18/16 08:09 Globulin 4.2 gm/dL (2.2-3.9) H 09/18/16 08:09 Albumin/Globulin Ratio 1.0 (1.0-2.1) 09/18/16 08:09 Prealbumin 5.5 mg/dL (17.6-36.0) L 03/10/16 12:41 Free PSA 0.5 ng/mL (()) 03/20/16 07:41 % Free PSA 9 Percent (>25) L 03/20/16 07:41 Total PSA 5.6 ng/mL (<=4.0) H 03/20/16 07:41 Prostate Cancer Risk 56 Percent (()) 03/20/16 07:41 Vitamin B12 438 pg/mL (239-931) 05/26/16 07:40 Folate 18.2 ng/mL 05/26/16 07:40 Urine Color Yellow (YELLOW) 09/14/16 23:11 Urine Clarity Clear (Clear) 09/14/16 23:11 Urine pH 5.0 (5.0-8.0) 09/14/16 23:11 Ur Specific Daisy 1.027 (1.003-1.030) 09/14/16 23:11 Urine Protein Negative mg/dL (NEGATIVE) 09/14/16 23:11 Urine Glucose (UA) Normal mg/dL (Normal) 09/14/16 23:11 Urine Ketones Negative mg/dL (NEGATIVE) 09/14/16 23:11 Urine Blood Negative (NEGATIVE) 09/14/16 23:11 Urine Nitrate Negative (NEGATIVE) 09/14/16 23:11 Urine Bilirubin Negative (NEGATIVE) 09/14/16 23:11 Urine Urobilinogen Normal mg/dL (0.2-1.0) 09/14/16 23:11 Ur Leukocyte Esterase Neg Jose R/uL (Negative) 09/14/16 23:11 Urine WBC (Auto) 3 /hpf (0-5) 09/14/16 23:11 Urine RBC (Auto) 14 /hpf (0-3) H 09/14/16 23:11 Ur Squamous Epith Cells < 1 /hpf (0-5) 09/14/16 23:11 Urine Bacteria Rare (<OCC) 09/14/16 23:11 Hyaline Casts 0-2 /lpf (0-2) 06/22/16 14:20 Stool Sodium TNP 07/16/16 13:23 Stool Potassium TNP 07/16/16 13:23 Stool Chloride TNP 07/16/16 13:23 Stool Occult Blood Negative (NEGATIVE) 07/16/16 13:46 Stool Leukocytes, Qual Positive (NEGATIVE) H 07/20/16 Unknown Vancomycin Trough 14.7 ug/mL (5.0-10.0) H 03/22/16 11:02 Urine Opiates Screen Negative (NEGATIVE) 03/11/16 08:13 Urine Methadone Screen Negative (NEGATIVE) 03/11/16 08:13 Ur Barbiturates Screen Negative (NEGATIVE) 03/11/16 08:13 Ur Phencyclidine Scrn Negative (NEGATIVE) 03/11/16 08:13 Ur Amphetamines Screen Negative (NEGATIVE) 03/11/16 08:13 U Benzodiazepines Scrn Negative (NEGATIVE) 03/11/16 08:13 U Oth Cocaine Metabols Negative (NEGATIVE) 03/11/16 08:13 U Cannabinoids Screen Negative (NEGATIVE) 03/11/16 08:13 Rheum Arthritis Panel Negative (NEGATIVE) 05/15/16 13:56 RAYA 6 Profile Negative (NEGATIVE) 05/15/16 13:56 C. difficile Ag & Toxin Negative (NEGATIVE) 05/15/16 23:53 - Hospital Course Hospital Course: As per admission: HPI: 71 year old male who denies PMHx presents with complaints of bilateral leg swelling presents to the ED with complaints of generalized weakness, abdominal pain, and dysuria. Patient stated that his symptoms started a few months ago and have remained continuous. Patient was recently seen at [facility] for the same complaints on 03/07/2016, where he was worked up with CT scan of the abdomen and pelvis, chest x-ray, HIDA and DVT. Patient was then discharged upon negative work-up results. Patient counseled to follow up with [facility] care in order to have physical therapy benefits; however patient did not comply. After discharge from [place], Pt later presented to [facility] ED with the same complaints. Patient additionally stated that he needed a place to stay as he was homeless. Per ROS, patient admits to subjective fevers, chills, nausea, dizziness, headaches, abdominal pain, dysuria and bilateral LE pain. Patient is a poor historian. Hospital Course: Patient admitted after being seen at several different facilities for complaints of bilateral leg swelling. Patient was to follow up with [facility] for physical therapy assistance benefits however patient did not comply. On arrival to the emergency department here, patient was deemed an unsafe discharge because he was not able to ambulate out of the facility after the ED workup was completed. XRAYs ruled out fracture of the affected LE. In greater detail, heterogenous sclerotic changes at right pelvic bones of uncertain etiology; suspicious for displacement or migration of the prosthesis superiority was noted. Ortho was later consulted whereby patient further explained that he was able to walk with a walker until two weeks prior to admission. Orthopedic surgery noted an acetabular protusion for which acute orthopedic intervention was not indicated. The plan was for patient to be optimized to be non weight bearing with a walker and then eventually cane. Patients course was extended because despite daily physical therapy; patient was not weight bearing until days ago. Per the homeless [facility] policies, patient could bring in a walking cane but could not bring in a rolling walker. Patient thus continued with therapy if not daily; then every other day. Patient was in need of physical therapy and occupational services. Patient received maximum physical therapy and was able to ambulating on his own with a cane. Patient had complaints of abdominal pain for which abdomen of CT and pelvis performed just days prior showed fecal impaction as well as non obstructing left inguinal hernia containing small bowel. Patient was then medically managed for constipation, which resolved. Other incidental findings through patients course included: Aneurysmal dilatation of ascending thoracic aorta- This was noted to 4.[address] abdomen. Patient will be given a script of repeat CT scan as it is recommended for such finding to follow up with a CT scan in 6 months to assess stability Anemia which resolved Seborrheic dermatitis for which he was administered Ketoconazole 2% Shampoo and cream, which resolved. Patient encouraged to clean and groom himself. Patient was stable and cleared for discharge. As per patient, he will be staying with a friend. Pertinent study result: 08/21 studies noted below: Lower Extremity CT: osteopenia and degenerative change, no acute fracture or joint effusion Knee XRAY: initial questionable fracture ruled out by CT imaging. Pelvis XRAY stable acetabular protrusion. 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 The medial right ischial cortical integrity is indeterminate given this severe demineralization and a shell like appearance. Nevertheless no change in this appearance is suggested. The acetabulum and femoral prostatic components are similar 09/19/16: (Right knee X-ray) : Severe osteopenia. Status post remote patellar fracture with cerclage wire fixation. Open discontinuity superior aspect -long- standing. Old anterior tibial tuberosity osseous avulsion and/or ossification of the descending patellar tendon- chronic. No acute fracture This is a brief summary of events. For a complete course, refer to the medical record. Discharge Exam - Head Exam Head Exam: NORMAL INSPECTION, NORMOCEPHALIC - Eye Exam Eye Exam: EOMI, Normal appearance - ENT Exam ENT Exam: Mucous Membranes Moist, Normal Exam - Respiratory Exam Respiratory Exam: Clear to PA & Lateral, NORMAL BREATHING PATTERN - Cardiovascular Exam Cardiovascular Exam: REGULAR RHYTHM, +S1, +S2 - GI/Abdominal Exam GI & Abdominal Exam: Normal Bowel Sounds, Soft. absent: Tenderness - Extremities Exam Extremities exam: normal capillary refill, normal inspection, pedal pulses present - Neurological Exam Neurological exam: Alert, Oriented x3 - Psychiatric Exam Psychiatric exam: Normal Affect, Normal Mood - Skin Skin Exam: Dry, Normal Color, Warm Discharge Plan - Discharge Medications Prescriptions: Ferrous Sulfate 325 mg PO BID #60 tablet Furosemide [Lasix] 40 mg PO DAILY #30 tab Tamsulosin [Flomax] 0.4 mg PO DAILY #30 cap - Follow Up Plan Condition: FAIR Disposition: HOME/ ROUTINE Instructions: Iron Supplements (By mouth), Tamsulosin (By mouth), Failure to Thrive (DC), Malnutrition (DC) Additional Instructions: Please discharge patient to his friend's home Please continue the following medications as prescribed: 1. Ferrous sulfate 325mg PO BID 2. Furosemide 40mg PO daily 3. Tamsulosin 0.4 mg PO daily 4. Tramadol 50mg PO TID Please follow up with the [facility] within a week Please follow up with Dr. Pino outpatient Hx of aortic thoracic aneursym (Currently 4.5cm) Patient needs repeat CT imaging every 6 months. Patient will be given a script for a repeat CT scan within a week. Please return to the hospital if symptoms resumes. Referrals: [facility] at [facility] [Outside] <Sukhwinder Rutherford - Last Filed: 09/21/16 09:27> Provider - Provider Date of Admission: 03/10/16 13:31 Attending physician: Sukhwinder Rutherford DO Hospital Course - Lab Results Lab Results: Micro Results 09/14/16 06:00 Urine Urine Culture - Final No Growth (<1,000 CFU/ML) 07/20/16 Unknown Stool Ova and Parasite Concentrate Exam - Final 07/16/16 10:40 Stool Stool Culture - Final NO SALMONELLA, SHIGELLA OR CAMPYLOBACTER ISOLATED. 06/22/16 11:35 Urine Urine Culture - Final Gram Positive Cocci 05/20/16 Unknown Urine,Clean Catch Urine Culture - Final No Growth (<1,000 CFU/ML) 05/16/16 01:32 Stool Stool Culture - Final NO SALMONELLA, SHIGELLA OR CAMPYLOBACTER ISOLATED. 05/16/16 01:04 Urine,Clean Catch Urine Culture - Final No Growth (<1,000 CFU/ML) 05/16/16 01:32 Rectum Ova and Parasite Concentrate Exam - Final 05/03/16 17:36 Urine Urine Culture - Final No Growth (<1,000 CFU/ML) 04/09/16 12:01 Urine Urine Culture - Final No Growth (<1,000 CFU/ML) 04/03/16 20:08 Urine Urine Culture - Final No Growth (<1,000 CFU/ML) 03/29/16 22:16 Stool Stool Culture - Final NO SALMONELLA, SHIGELLA OR CAMPYLOBACTER ISOLATED. 03/29/16 18:31 Urine,Clean Catch Urine Culture - Final No Growth (<1,000 CFU/ML) 03/18/16 20:46 Urine Urine Culture - Final No Growth (<1,000 CFU/ML) 03/14/16 12:50 Urine Urine Culture - Final Enterococcus Faecalis 03/10/16 19:00 Blood Blood Culture - Final NO GROWTH AFTER 5 DAYS 03/10/16 19:00 Blood Gram Stain - Final TEST NOT PERFORMED 03/10/16 19:05 Blood Blood Culture - Final NO GROWTH AFTER 5 DAYS 03/10/16 19:05 Blood Gram Stain - Final TEST NOT PERFORMED Most Recent Lab Values WBC 5.3 K/uL (4.8-10.8) 09/18/16 08:09 RBC 4.63 Mil/uL (4.40-5.90) 09/18/16 08:09 Hgb 14.8 g/dL (12.0-18.0) 09/18/16 08:09 Hct 43.6 % (35.0-51.0) 09/18/16 08:09 MCV 94.2 fL (80.0-94.0) H 09/18/16 08:09 MCH 32.0 pg (27.0-31.0) H 09/18/16 08:09 MCHC 34.0 g/dL (33.0-37.0) 09/18/16 08:09 RDW 15.3 % (11.5-14.5) H 09/18/16 08:09 Plt Count 247 K/uL (130-400) 09/18/16 08:09 MPV 8.3 fL (7.2-11.7) 09/18/16 08:09 Neut % (Auto) 65.1 % (50.0-75.0) 09/18/16 08:09 Lymph % (Auto) 26.5 % (20.0-40.0) 09/18/16 08:09 [place] % (Auto) 6.6 % (0.0-10.0) 09/18/16 08:09 Eos % (Auto) 1.2 % (0.0-4.0) 09/18/16 08:09 Baso % (Auto) 0.6 % (0.0-2.0) 09/18/16 08:09 Neut # 3.5 K/uL (1.8-7.0) 09/18/16 08:09 Lymph # 1.4 K/uL (1.0-4.3) 09/18/16 08:09 [place] # 0.4 K/uL (0.0-0.8) 09/18/16 08:09 Eos # 0.1 K/uL (0.0-0.7) 09/18/16 08:09 Baso # 0.0 K/uL (0.0-0.2) 09/18/16 08:09 Neutrophils % (Manual) 75 % (50-75) 03/10/16 12:41 Lymphocytes % (Manual) 14 % (20-40) L 03/10/16 12:41 Monocytes % (Manual) 11 % (0-10) H 03/10/16 12:41 Platelet Estimate Normal (NORMAL) 03/10/16 12:41 Hypochromasia (manual) Slight 03/10/16 12:41 Poikilocytosis (manual Slight 03/10/16 12:41 Anisocytosis (manual) Slight 03/10/16 12:41 Macrocytosis (manual) Slight 03/10/16 12:41 Target Cells Slight 03/10/16 12:41 Tear Drop Cells Slight 03/10/16 12:41 ESR 32 mm/hr (0-15) H 05/15/16 07:15 Retic Count 0.9 % (0.5-1.5) 03/22/16 07:09 Sodium 139 mmol/L (132-148) 09/18/16 08:09 Potassium 3.8 mmol/L (3.6-5.2) 09/18/16 08:09 Chloride 100 mmol/L (98-107) 09/18/16 08:09 Carbon Dioxide 29 mmol/L (22-30) 09/18/16 08:09 Anion Gap 14 (10-20) 09/18/16 08:09 BUN 17 mg/dL (9-20) 09/18/16 08:09 Creatinine 0.7 MG/DL (0.8-1.5) L 09/18/16 08:09 Est GFR ( Amer) > 60 09/18/16 08:09 Est GFR (Non-Af Amer) > 60 09/18/16 08:09 POC Glucose (mg/dL) 139 mg/dL (65-110) H 06/11/16 12:02 Random Glucose 127 mg/dL (75-110) H 09/18/16 08:09 Calcium 9.5 mg/dl (8.6-10.4) 09/18/16 08:09 Phosphorus 3.5 mg/dL (2.5-4.5) 09/18/16 08:09 Magnesium 1.9 mg/dL (1.6-2.3) 09/18/16 08:09 Iron 48 ug/dL (49-181) L 05/26/16 07:40 TIBC 234 ug/dL (250-450) L 05/26/16 07:40 % Saturation 21 (20-55) 05/26/16 07:40 Ferritin 211.0 ng/mL 05/26/16 07:40 Total Bilirubin 0.7 mg/dL (0.2-1.3) 09/18/16 08:09 AST 22 U/L (17-59) 09/18/16 08:09 ALT 20 U/L (21-72) L D 09/18/16 08:09 Alkaline Phosphatase 92 U/L (38-126) 09/18/16 08:09 Total Creatine Kinase 20 U/L (55-170) L 05/05/16 13:10 C-React Prot High Sens 1.51 mg/L (1.00-3.00) 05/15/16 13:56 Total Protein 8.2 g/dL (6.3-8.3) 09/18/16 08:09 Albumin 4.1 g/dL (3.5-5.0) 09/18/16 08:09 Globulin 4.2 gm/dL (2.2-3.9) H 09/18/16 08:09 Albumin/Globulin Ratio 1.0 (1.0-2.1) 09/18/16 08:09 Prealbumin 5.5 mg/dL (17.6-36.0) L 03/10/16 12:41 Free PSA 0.5 ng/mL (()) 03/20/16 07:41 % Free PSA 9 Percent (>25) L 03/20/16 07:41 Total PSA 5.6 ng/mL (<=4.0) H 03/20/16 07:41 Prostate Cancer Risk 56 Percent (()) 03/20/16 07:41 Vitamin B12 438 pg/mL (239-931) 05/26/16 07:40 Folate 18.2 ng/mL 05/26/16 07:40 Urine Color Yellow (YELLOW) 09/14/16 23:11 Urine Clarity Clear (Clear) 09/14/16 23:11 Urine pH 5.0 (5.0-8.0) 09/14/16 23:11 Ur Specific Daisy 1.027 (1.003-1.030) 09/14/16 23:11 Urine Protein Negative mg/dL (NEGATIVE) 09/14/16 23:11 Urine Glucose (UA) Normal mg/dL (Normal) 09/14/16 23:11 Urine Ketones Negative mg/dL (NEGATIVE) 09/14/16 23:11 Urine Blood Negative (NEGATIVE) 09/14/16 23:11 Urine Nitrate Negative (NEGATIVE) 09/14/16 23:11 Urine Bilirubin Negative (NEGATIVE) 09/14/16 23:11 Urine Urobilinogen Normal mg/dL (0.2-1.0) 09/14/16 23:11 Ur Leukocyte Esterase Neg Jose R/uL (Negative) 09/14/16 23:11 Urine WBC (Auto) 3 /hpf (0-5) 09/14/16 23:11 Urine RBC (Auto) 14 /hpf (0-3) H 09/14/16 23:11 Ur Squamous Epith Cells < 1 /hpf (0-5) 09/14/16 23:11 Urine Bacteria Rare (<OCC) 09/14/16 23:11 Hyaline Casts 0-2 /lpf (0-2) 06/22/16 14:20 Stool Sodium TNP 07/16/16 13:23 Stool Potassium TNP 07/16/16 13:23 Stool Chloride TNP 07/16/16 13:23 Stool Occult Blood Negative (NEGATIVE) 07/16/16 13:46 Stool Leukocytes, Qual Positive (NEGATIVE) H 07/20/16 Unknown Vancomycin Trough 14.7 ug/mL (5.0-10.0) H 03/22/16 11:02 Urine Opiates Screen Negative (NEGATIVE) 03/11/16 08:13 Urine Methadone Screen Negative (NEGATIVE) 03/11/16 08:13 Ur Barbiturates Screen Negative (NEGATIVE) 03/11/16 08:13 Ur Phencyclidine Scrn Negative (NEGATIVE) 03/11/16 08:13 Ur Amphetamines Screen Negative (NEGATIVE) 03/11/16 08:13 U Benzodiazepines Scrn Negative (NEGATIVE) 03/11/16 08:13 U Oth Cocaine Metabols Negative (NEGATIVE) 03/11/16 08:13 U Cannabinoids Screen Negative (NEGATIVE) 03/11/16 08:13 Rheum Arthritis Panel Negative (NEGATIVE) 05/15/16 13:56 RAYA 6 Profile Negative (NEGATIVE) 05/15/16 13:56 C. difficile Ag & Toxin Negative (NEGATIVE) 05/15/16 23:53 Attending/Attestation - Attestation I have personally seen and examined this patient.: Yes I have fully participated in the care of the patient.: Yes I have reviewed all pertinent clinical information, including history, physical exam and plan: Yes Notes (Text): 09/21/16 09:24 Medical Attending: Patient was seen and examined by me. Physical therapy has signed off on the case. Will try to see if the patient's friend will be willing to take the patient. As mentioned previously, the patient has been here for a very long period of time and it has taken quite a while for him to become stronger. If the patient really is DC today then there are RX for pain control. thank you Sukhwinder Rutherford
[2016-09-21] MEDS: Multiple Vitamins Oral Solution PO SCH (10:51)
[2016-09-21] MEDS: Lidocaine 5% Patch TD SCH (10:52)
[2016-09-21] MEDS: Enoxaparin 40 mg Syringe SC SCH (10:53)
[2016-09-21 16:45] VITALS: BP 127/89; PULSE 76; TEMP 98.7; O2SAT 96
== END 2016-09-21 17:10 | disposition home or self-care (01) | DRG 560 ==
LOC: C.ER 20:03 → SUPCPDRO 20:03 → C.9OBSV 21:24 → OBSVTOIN 03-10 13:31 → C.9E 03-10 13:34 → C.3T 03-10 14:15 → C.5T 06-25 20:25 → C.6T 07-07 22:21 → C.3T 07-12 10:31 → C.5T 08-17 13:10 → C.3T 08-17 13:22
PROVIDERS: ADMIT Hospitalist; ATTEND Hospitalist
PROC: 0HBRXZZ Excision of Toe Nail, External Approach (ICD-10-PCS; 2016-04-23)
PROC: 0HBRXZZ Excision of Toe Nail, External Approach (ICD-10-PCS; 2016-04-23)
PROC: 0HBRXZZ Excision of Toe Nail, External Approach (ICD-10-PCS; 2016-04-23)
PROC: 0HBRXZZ Excision of Toe Nail, External Approach (ICD-10-PCS; 2016-04-23)
PROC: 0HBRXZZ Excision of Toe Nail, External Approach (ICD-10-PCS; 2016-04-23)
PROC: 0HBRXZZ Excision of Toe Nail, External Approach (ICD-10-PCS; 2016-04-23)
PROC: 0HBRXZZ Excision of Toe Nail, External Approach (ICD-10-PCS; 2016-04-23)
PROC: 0HBRXZZ Excision of Toe Nail, External Approach (ICD-10-PCS; 2016-04-23)
PROC: 0HBRXZZ Excision of Toe Nail, External Approach (ICD-10-PCS; 2016-04-23)
PROC: 0HBRXZZ Excision of Toe Nail, External Approach (ICD-10-PCS; 2016-04-23)
PROC: 0HBRXZZ Excision of Toe Nail, External Approach (ICD-10-PCS; 2016-07-25)
PROC: 0HBRXZZ Excision of Toe Nail, External Approach (ICD-10-PCS; 2016-07-25)
PROC: 0HBRXZZ Excision of Toe Nail, External Approach (ICD-10-PCS; 2016-07-25)
PROC: 0HBRXZZ Excision of Toe Nail, External Approach (ICD-10-PCS; 2016-07-25)
PROC: 0HBRXZZ Excision of Toe Nail, External Approach (ICD-10-PCS; 2016-07-25)
PROC: 0HBRXZZ Excision of Toe Nail, External Approach (ICD-10-PCS; 2016-07-25)
PROC: 0HBRXZZ Excision of Toe Nail, External Approach (ICD-10-PCS; 2016-07-25)
PROC: 0HBRXZZ Excision of Toe Nail, External Approach (ICD-10-PCS; 2016-07-25)
PROC: 0HBRXZZ Excision of Toe Nail, External Approach (ICD-10-PCS; 2016-07-25)
PROC: 0HBRXZZ Excision of Toe Nail, External Approach (ICD-10-PCS; 2016-07-25)
PROC: 3E0U3NZ Introduction of Analgesics, Hypnotics, Sedatives into Joints, Percutaneous Approach (ICD-10-PCS; principal; 2016-09-01)
DX: M24.7 Protrusio acetabuli (principal); L89.312 Pressure ulcer of right buttock, stage 2; I71.2 Thoracic aortic aneurysm, without rupture; N39.0 Urinary tract infection, site not specified; E87.1 Hypo-osmolality and hyponatremia; T84.050A Periprosthetic osteolysis of internal prosthetic right hip joint, initial encounter; B35.1 Tinea unguium; E87.70 Fluid overload, unspecified; E87.6 Hypokalemia; E83.42 Hypomagnesemia; D63.8 Anemia in other chronic diseases classified elsewhere; M89.551 Osteolysis, right thigh; K40.90 Unilateral inguinal hernia, without obstruction or gangrene, not specified as recurrent; R60.0 Localized edema; D50.9 Iron deficiency anemia, unspecified; B95.2 Enterococcus as the cause of diseases classified elsewhere; Z66 Do not resuscitate; K44.9 Diaphragmatic hernia without obstruction or gangrene; G89.29 Other chronic pain; N40.1 Benign prostatic hyperplasia with lower urinary tract symptoms; M84.361A Stress fracture, right tibia, initial encounter for fracture; R62.7 Adult failure to thrive; R39.11 Hesitancy of micturition; K59.00 Constipation, unspecified; Z59.0 Homelessness; I95.1 Orthostatic hypotension; L21.9 Seborrheic dermatitis, unspecified; R19.7 Diarrhea, unspecified; M85.80 Other specified disorders of bone density and structure, unspecified site; K80.20 Calculus of gallbladder without cholecystitis without obstruction; L85.3 Xerosis cutis; I87.8 Other specified disorders of veins; M17.11 Unilateral primary osteoarthritis, right knee
CPT/HCPCS: G0378; G8978-GP-CL; G8979-GP-CK; Q9966

== ENCOUNTER 2016-10-09 16:05 | Emergency (ER) | payer OTHER ==
[2016-10-09 16:50] VITALS: BMI 20.9
--- NOTE | 2016-10-09 17:44 | C.PDOC ---
History Of Present Illness 71 y/o homeless male presents to emergency department with complaints of leg pain and swelling. Pt discharged from [facility] 12 days ago after 6 month stay for similar complaint. Pt has had difficulty walking. Pt states friends are taking care of him letting him sleep in their hallway, sleeps sitting up with feet on floor. Denies chest pain, SOB, headache, fever, chills or any other complaints. Time Seen by Provider: 10/09/16 16:58 Chief Complaint (Nursing): Lower Extremity Problem/Injury History Per: Patient History/Exam Limitations: no limitations Onset/Duration Of Symptoms: Days Current Symptoms Are (Timing): Still Present Severity: Moderate Recent travel outside of the [place]: No Past Medical History Reviewed: Historical Data, Nursing Documentation, Vital Signs Vital Signs: Last Vital Signs Temp 98.2 F 10/09/16 16:50 Pulse 89 10/09/16 16:50 Resp 18 10/09/16 16:50 BP 116/67 10/09/16 16:50 Pulse Ox 98 10/09/16 17:49 - Medical History PMH: Anxiety, Arthritis, COPD, Depression, Fractures, HTN - [facility] Procedures EXCISION OF TOE NAIL, EXTERNAL APPROACH (03/10/16) EXTRACTION OF LEFT FOOT SKIN, EXTERNAL APPROACH (03/05/16) INTRODUCTION OF ANALG/HYPNOT/SEDAT INTO JOINT, PERC APPROACH (03/10/16) Family History: States: Unknown Family Hx - Social History Hx Tobacco Use: No Hx Alcohol Use: No Hx Substance Use: No - Immunization History Hx Tetanus Toxoid Vaccination: No Hx Influenza Vaccination: No Hx Pneumococcal Vaccination: No Review Of Systems Except As Marked, All Systems Reviewed And Found Negative. 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) Neck: Normal, Normal ROM, Supple Chest: Symmetrical Cardiovascular: Rhythm Regular Respiratory: Normal Breath Sounds, No Rales, No Rhonchi, No Wheezing Gastrointestinal/Abdominal: Normal Exam, Soft, No Tenderness Extremity: Swelling (+3 pitting edema bilateral lower extremities with venoustasis skin changes) Pulses: Left Dorsalis Pedis: Normal, Right Dorsalis Pedis: Normal Neurological/Psych: Oriented x3, Normal Speech, Normal Cognition, Normal Sensation ED Course And Treatment O2 Sat by Pulse Oximetry: 98 (room air) Pulse Ox Interpretation: Normal Progress Note: Discussed with patient that he can't be admitted for a chronic issue. Pt's neighbors said they can pick patient up from emergency department. Disposition Counseled Patient/Family Regarding: Diagnosis - Disposition Disposition: HOME/ ROUTINE Disposition Time: 18:29 Condition: STABLE Instructions: Venous Insufficiency (GEN) Forms: [facility] (Swedish) - POA Present On Arrival: None - Clinical Impression Clinical Impression: Venous stasis, Pedal edema - Scribe Statement The provider has reviewed the documentation as recorded by the Rickey Reeves Provider Attestation: All medical record entries made by the Sarahyibnimco were at my direction and personally dictated by me. I have reviewed the chart and agree that the record accurately reflects my personal performance of the history, physical exam, medical decision making, and the department course for this patient. I have also personally directed, reviewed, and agree with the discharge instructions and disposition.
[2016-10-09 18:48] VITALS: BP 108/63; PULSE 85; RESP 16; TEMP 98.5; O2SAT 99
== END 2016-10-09 19:22 | disposition home or self-care (01) ==
LOC: C.ER 16:05
DX: I87.8 Other specified disorders of veins (principal); R60.0 Localized edema